=== PATIENT | male | born 1940 | race Caucasian/White ===

== ENCOUNTER 2020-07-03 10:05 | Emergency (ER) | payer OTHER, MEDICARE, SELFPAY ==
[2019-07-08 09:32] VITALS: BMI 32.5
[2020-07-03 10:07] VITALS: BP 122/62; PULSE 64; RESP 15; TEMP 36.2; O2SAT 99; BMI 34.0
--- NOTE | 2020-07-03 10:20 | ED.VIS.GEN ---
History of Present Illness Chief Complaint: Chest Pain Informant: Patient Narrative: 79-year-old male presenting with fatigue, mild pain with deep inspiration, loss of taste for 7 days. Patient states he was tested for Covid?19 on Friday of last week. Symptom onset was Friday of last week which would make it 8 days. Patient states he is already had his Covid?19 immunizations. Patient states he has had multiple stress tests in the past but it has not been since 2008 when he had his last one. Patient denies fever or cough. He does state that he sometimes lightheaded. This does not correlate with the chest discomfort on deep inspiration. Past Medical History - Allergies and Home Meds Allergies/Adverse Reactions: Allergies No Known Allergies Allergy (Unverified 07/03/20 10:14) Primary Care Physician: Cody Carrington MD [Primary Care Provider] - Past Medical History: - - Hypertension, hyperlipidemia Surgical History: noncontributory Lives: Alone Smoking Status: Never smoker Alcohol: None Drugs: None - Family History Maternal Family History: Reports: - - No VTE Review of Systems General: Reports: - - Fatigue. Denies: Chills, Fever Eyes: Denies: Visual changes - bilaterally, Diplopia ENT: Denies: Rhinorrhea, Sore throat Cardiovascular: Reports: Chest pain - Deep inspiration, - - Lightheadedness intermittently. Denies: Palpitations, Heart racing Respiratory: Denies: Dyspnea, Cough Gastrointestinal: Denies: Abdominal pain, Nausea, Vomiting, Diarrhea, Constipation Genitourinary: Denies: Dysuria, Hematuria Musculoskeletal: Denies: Myalgias, Arthralgias Skin: Denies: Rash, Abscess Neurological: Denies: Headache, Parasthesia, Numbness Psych: Denies: Depression, Anxiety Physical Exam Vital Signs/Narrative: Vital Signs Temp Pulse Resp BP Pulse Ox 07/03/20 10:07 97.2 F L 64 15 122/62 H 99 Inital Vital Signs reviewed: Yes General: Well nourished, No Acute Distress Head: Normocephalic, Atraumatic Eyes: Perrl, EOMI ENT: Moist mucous membranes, No rhinorrhea Cardiovascular: Regular rate, Regular rhythm Respiratory: No distress, CTA bilaterally, Chest nontender Extremities: Nontender, No edema Skin: Normal color, No rash. Negative for: Cyanosis, Diaphoresis Neurological: Alert, Oriented x3, Cranial nerves II-XII grossly intact Psychological: Normal affect, Normal Mood Diagnostic/Tx/Re-eval Clinical Impression(s) from Imaging Studies Chest X-Ray 07/03/20 10:40 IMPRESSION: No acute abnormality is seen. Electronically Signed: Norberto Peres MD at 11:06 EST , Service support , Lung Scan-VQ NM 07/03/20 13:54 IMPRESSION: 1. NORMAL 99m Tc DTPA aerosol ventilation/Tc 99m MAA pulmonary perfusion imaging examination, according to PIOPED II interpretive criteria. (Sotsman et al, Radiology 246: 941, 2008 Sohuber et al, J Nucl Med 49: 1741, 2008). Electronically Signed: Prashanth Westfall DO at 15:36 EST Tel , Service support , Laboratory Data 07/03/20 07/03/20 07/03/20 10:20 10:20 10:20 WBC 6.2 RBC 4.29 L Hgb 14.2 Hct 40.3 MCV 93.9 MCH 33.1 H MCHC 35.2 RDW Std Deviation 45.1 H RDW Coeff of Briana 13.3 Plt Count 164 MPV 9.2 Immature Gran % (Auto) 0.500 Neut % (Auto) 60.8 Lymph % (Auto) 27.1 [place] % (Auto) 11.1 H Eos % (Auto) 0.2 Baso % (Auto) 0.3 Absolute Neuts (auto) 3.8 Absolute Lymphs (auto) 1.69 Nucleated RBC % 0 D-Dimer Quant (PE/DVT) Cancelled Sodium 129 L Potassium 3.7 Chloride 96 L Carbon Dioxide 22.0 Anion Gap 11 BUN 29 H Creatinine 2.07 H Estim Creat Clear Calc 26.97 Est GFR (MDRD) Af Amer 40 L Est GFR (MDRD) Non-Af 33 L BUN/Creatinine Ratio 14.0 Glucose 117 H Calcium 10.1 Troponin I < 0.015 07/03/20 11:15 WBC RBC Hgb Hct MCV MCH MCHC RDW Std Deviation RDW Coeff of Briana Plt Count MPV Immature Gran % (Auto) Neut % (Auto) Lymph % (Auto) [place] % (Auto) Eos % (Auto) Baso % (Auto) Absolute Neuts (auto) Absolute Lymphs (auto) Nucleated RBC % D-Dimer Quant (PE/DVT) 0.79 H* Sodium Potassium Chloride Carbon Dioxide Anion Gap BUN Creatinine Estim Creat Clear Calc Est GFR (MDRD) Af Amer Est GFR (MDRD) Non-Af BUN/Creatinine Ratio Glucose Calcium Troponin I - Rhythm Strip Rhythm Strip: Sinus Rhythm Rate: 63 - Medical Decision Making Patient presenting with fatigue, mild lightheadedness, mild pain with deep inspiration across the center of his chest for 8 days. He was tested for Covid?19 on the third day and was negative. He is already had his immunizations for Covid?19. EKG performed on arrival and interpreted by myself shows a normal sinus rhythm at 63 bpm without signs of ischemic changes. One-view portable chest x-ray is interpreted by myself shows no acute cardiopulmonary process. She shows white count of 6.2, hemoglobin 14.2, platelets 164. Troponin is negative. Creatinine is 2.0 today and there is no previous creatinines in our system. His GFR is also 33. Patient also had elevated D-dimer at 0.79. Given his creatinine I did not want to CTA him. Patient had VQ scan low risk for PE. His chest pain does not sound like a cardiac related chest pain. Patient will be tested with outpatient Covid swab and will return to the 5 days. Patient will quarantine until then. Patient is also to call his PCP for follow-up given his renal function as I do not know what his previous renal function is. I am unable to look this up in [employer] because it is not functioning today. Patient given return precautions. Patient stable for discharge. Impression: 1. Abnormal creatinine 2. Viral syndrome 3. Inspiratory chest pain ED Disposition - Plan for ED Patient: Disposition: Home or Assisted Living Instructions: Coronavirus Disease 2019 (COVID-19): Caring for Yourself or Others, ED Viral Syndrome (Adult) Referrals: Cody Carrington MD [Primary Care Provider] -
--- NOTE | 2020-07-03 10:20 | NURSING ---
NO OLD EKGS
--- NOTE | 2020-07-03 10:21 | EKG12_ITS ---
Test Reason : CHEST TIGHTNESS Blood Pressure : / mmHG Vent. Rate : 063 BPM Atrial Rate : 063 BPM P-R Int : 160 ms QRS Dur : 104 ms QT Int : 428 ms P-R-T Axes : -08 033 012 degrees QTc Int : 437 ms Normal sinus rhythm Normal ECG Confirmed by DESIREE BENJAMIN, NEYMAR ([id number]), purchase request editor DMITRIY MCKINLEY ([id number]) on 07/04/2020 10:51:05 AM Referred By: ABNER Confirmed By:NEYMAR RAMÍREZ MD
[2020-07-03 10:36] LABS: Absolute Lymphocyte Count 1.69 X10^3/uL (0.83-4.51); Absolute Neutrophil Count 3.8 X10^3/uL (2.0-7.7); Basophil# 0.02 X10^3/uL; Basophil% 0.3 % (0-1); Eosinophil# 0.01 X10^3/uL; Eosinophils% 0.2 % (0-5); Hematocrit 40.3 % (40-54); Hemoglobin 14.2 g/dL (13.0-16.5); Lymphocyte # 1.69 X10^3/ul (4.0); Lymphocyte % 27.1 % (19-41); Mean Corp Hgb Conc 35.2 g/dL (32-36); Mean Corpuscular Hgb 33.1 pg (27.0-32.0); Mean Corpuscular Volume 93.9 fL (80-94); Mean Platelet Vol. 9.2 fl (6.2-12.0); Monocyte# 0.69 X10^3/uL; Monocyte% 11.1 % (0-10); NRBC Flagged by Analyzer 0 % (0-5); Neutrophil # 3.79 X10^3/uL (2.7-7.7); Neutrophil % 60.8 % (47-70); Platelet Count 164 K/mm3 (150-450); RBC Distribution Width CV 13.3 % (11.6-14.6); RBC Distribution Width SD 45.1 fl (35.1-43.9); Red Blood Count 4.29 M/mm3 (4.6-6.2); White Blood Count 6.2 K/mm3 (4.4-11.0)
--- NOTE | 2020-07-03 10:40 | RAD_ITS ---
STUDY: X-RAY CHEST REASON FOR EXAM: Male, 79 years old. Chest pain TECHNIQUE: Single AP portable view of the chest. COMPARISON: None. FINDINGS: EKG electrodes are seen. The lungs are clear and expanded. There is no demonstrated pleural abnormality. Normal size heart. Normal mediastinum and ojnn. Normal visualized pulmonary arteries. There is atherosclerotic calcification of the aortic arch with tortuosity. There are diffuse degenerative changes of the visualized thoracic spine. Normal visualized ribs, clavicles, and shoulders. There is no demonstrated abnormality of the visualized soft tissue structures of the upper abdomen. RAD/Chest 1 View (Portable) IMPRESSION: No acute abnormality is seen. Electronically Signed: Norberto Peres MD at 11:06 EST , Service support ,
[2020-07-03 10:50] LABS: Anion Gap 11 (5-15); BUN 29 mg/dL (7-18); Calcium,Total 10.1 mg/dL (8.5-10.1); Chloride 96 mmol/L (98-107); Creatinine, Serum 2.07 mg/dL (0.70-1.30); EST Glomerular Filtration Rate 33 mL/min (>60); Est Glom Filt Rate - Afr Amer 40 mL/min (>60); Estimated Creatinine Clearance 26.97 ml/min; Glucose 117 mg/dL (74-106); Potassium 3.7 mmol/L (3.5-5.1); Sodium Level 129 mmol/L (136-145)
[2020-07-03] MEDS: Aspirin 81 MG TAB.CHEW 324 MG PO (11:21)
[2020-07-03 11:42] LABS: D-Dimer Quantitative (DVT/PE) 0.79 FEU/ug/m (0.27-0.49)
--- NOTE | 2020-07-03 13:54 | NM_ITS ---
CLINICAL: 79-year-old male with reported history of chest discomfort, shortness of breath and elevation of the d-dimer. VENTILATION-PERFUSION LUNG SCINTIGRAPHY COMPARISON: Plain film chest radiograph report 07/03/2020 FINDINGS: The patient was administered 48.0 mCi 99m Tc DTPA aerosol. The aerosol ventilation study demonstrates normal ventilation defined in the bilateral lung winn. No segmental or subsegmental ventilatory defects are identified. There is no central clumping of the aerosol visualized. Following the intravenous administration of 5.0 mCi of 99m Tc MAA, the pulmonary perfusion study reveals uniform perfusion throughout both lung winn. There are no segmental or subsegmental perfusion defects consistently identified on review of sequential acquisitions-projections. NM/Lung Scan Vent/Perf IMPRESSION: 1. NORMAL 99m Tc DTPA aerosol ventilation/Tc 99m MAA pulmonary perfusion imaging examination, according to PIOPED II interpretive criteria. (Sotsman et al, Radiology 246: 941, 2008 Sohuber et al, J Nucl Med 49: 1741, 2008). Electronically Signed: Prashanth Westfall DO at 15:36 EST Tel , Service support ,
[2020-07-03 13:58] VITALS: BP 125/75; PULSE 67; RESP 20; O2SAT 94
[2020-07-03 14:00] VITALS: BP 125/75; PULSE 67; RESP 20; O2SAT 94
--- NOTE | 2020-07-03 14:47 | CON.PCM_ITS ---
Reason for Consult Date of Consultation: 07/03/20 Reason for Consultation: chest pain History of Present Illness: The patient is a 79 year old M presents with a several day history of upper chest pain. It is in his upper chest, does not radiate not associated other constitutional symptoms. Patient is never had chest pain like this before. Was concerned presented to the emergency room. Patient had D-dimer slightly elevated at 0.79. EKG showed normal sinus rhythm but with subtle S1Q3T3 changes. The hospital service was contacted for admission regards to this chest pain. A CTA could not be performed given the patient's chronic kidney disease. When discussed with the patient and he denies any history of VTE, denies any lower extremity injury or immobilization. [] Past Medical History Medical History: Medical History (Last Reviewed 07/03/20 @ 14:[address] Melvin Boo, DO) Hypertension I10 Allergies No Known Allergies Allergy (Unverified 07/03/20 10:14) Home Medications: Ambulatory Orders Medication Instructions Recorded atorvastatin 40 mg tablet 40 mg PO DAILY 07/08/19 levothyroxine 88 mcg tablet 88 mcg PO DAILY 07/08/19 losartan 100 mg tablet 100 mg PO QHS 07/08/19 metoprolol tartrate 25 mg tablet 25 mg PO BID 07/08/19 triamterene 37.5 1 tab PO DAILY 07/08/19 mg-hydrochlorothiazide 25 mg tablet Valacyclovir HCl [Valacyclovir] 500 mg PO DAILY 07/03/20 Surgical History: noncontributory Lives: Alone Smoking Status: Never smoker Alcohol: None Drugs: None - *Family History Maternal History Items: - - No VTE Review of Systems Constitutional: Denies: Chills, Fever, Weight Change HEENT: Denies: Head Aches, Sinus Congestion, Sinus Drainage Cardiovascular: Reports: Chest Pain. Denies: Edema Respiratory: Denies: Cough, Shortness of breath at rest, Sputum production Gastrointestinal: Denies: Abdominal Pain, Nausea, Vomiting Genitourinary: Denies: Dysuria Musculoskeletal: Denies: Joint Pain, Joint Tenderness Skin: Denies: Rash, Wounds Psychiatric: Denies: Anxiety, Depression Hematologic/ Lymphatic: Denies: Easy Bruising, Easy Bleeding, Hx of blood clot Comment: All review of systems were negative except as mentioned above in the history of present illness and the other review of systems. - Physical Exam Vitals/I&O's: Vital Signs Temp Pulse Resp BP Pulse Ox 36.2 C L 67 20 H 125/75 H 94 07/03/20 10:07 07/03/20 14:00 07/03/20 14:00 07/03/20 14:00 07/03/20 14:00 Oxygen Delivery Method Room Air Weight: 95.6 kg Body Mass Index (BMI) 34.0 General: Alert, Cooperative, No apparent distress HEENT: Atraumatic, Normocephalic Oral: Moist Mucosa, No Gingival or Mucosal Lesions/ Ulcerations Neck: No Nodes, Thyroid Normal Size and Texture Lungs: Clear to auscultation, Normal air movement, No rhonchi, No wheeze, No rales Cardiovascular: Regular rate, Regular Rhythm, Normal S1, Normal S2, No murmurs Abdomen: Bowel Sounds Present, Soft, Non Tender, Non-Distended, No Hepato- splenomegaly Extremities: No edema, No Calf Tenderness Psych/Mental Status: Normal Affect, Appropriate Laboratory Results 07/03/20 10:20: WBC 6.2, RBC 4.29 L, Hgb 14.2, Hct 40.3, MCV 93.9, MCH 33.1 H, MCHC 35.2, RDW Std Deviation 45.1 H, RDW Coeff of Briana 13.3, Plt Count 164, MPV 9.2, Immature Gran % (Auto) 0.500, Neut % (Auto) 60.8, Lymph % (Auto) 27.1, [place] % (Auto) 11.1 H, Eos % (Auto) 0.2, Baso % (Auto) 0.3, Absolute Neuts (auto) 3.8, Absolute Lymphs (auto) 1.69, Nucleated RBC % 0 07/03/20 10:20: D-Dimer Quant (PE/DVT) Cancelled 07/03/20 10:20: Sodium 129 L, Potassium 3.7, Chloride 96 L, Carbon Dioxide 22.0, Anion Gap 11, BUN 29 H, Creatinine 2.07 H, Estim Creat Clear Calc 26.97, Est GFR (MDRD) Af Amer 40 L, Est GFR (MDRD) Non-Af 33 L, BUN/Creatinine Ratio 14.0, Glucose 117 H, Calcium 10.1, Troponin I < 0.015 07/03/20 11:15: D-Dimer Quant (PE/DVT) 0.79 H* Chest x-ray personally reviewed and showed no infiltrate nor pulmonary vascular congestion. EKG reviewed and showed normal sinus rhythm with S1Q3T3 changes. No prior EKG available to compare to. Assessment/Plan All Active Problems (Last Reviewed 07/03/20 @ 14:[address] Melvin Boo, DO) Bronchitis (Acute) 1. Chest pain: Pretest probability for PE is low, however, patient did have a slightly elevated D-dimer and did have some subtle EKG changes. I called down to nuclear medicine and they said they would be able to do a VQ scan on him and patient was sent down. Results are currently pending. If results are negative, I feel the patient can be discharged home with no anticoagulation however if they are positive then I would recommend 10 a inhibitor with apixaban 10 mg twice daily for 7 days and then 5 mg twice daily thereafter. The treatment would be for 6 months. Irregardless, patient does not need to be admitted. 2. Chronic kidney disease: Recommend nephrology follow-up. Office Visits / Consults: [id number] OP Consult L4
[2020-07-03 15:00] VITALS: PULSE 62; RESP 18; O2SAT 98
[2020-07-03 16:00] VITALS: BP 143/77; PULSE 62; RESP 18; O2SAT 98
== END 2020-07-03 16:19 | disposition home or self-care (01) ==
PROVIDERS: Emergency Provider Student in an Organized Health Care Education/Training Program; PCP Internal Medicine
DX: U07.1 COVID-19 (principal); B34.9 Viral infection, unspecified; R07.1 Chest pain on breathing; R79.89 Other specified abnormal findings of blood chemistry; I10 Essential (primary) hypertension; E78.5 Hyperlipidemia, unspecified; Z79.899 Other long term (current) drug therapy
CPT/HCPCS: 36415; 71045; 78582; 80048; 84484; 85025; 85379; 87635; 93005; 99285; A9540; A9567; U0005; A4216; U0003

== ENCOUNTER 2023-06-16 15:38 | Observation (INO) | payer OTHER, MEDICARE, SELFPAY ==
[2023-06-16] VITALS (9 sets, daily range): BP systolic 94–142; BP diastolic 61–89; PULSE 82–109; RESP 14–17; TEMP 35.8–36.7; O2SAT 94–98; BMI 33.0; BMI 32.4
--- NOTE | 2023-06-16 15:53 | EKG12_ITS ---
Test Reason : PALP Blood Pressure : / mmHG Vent. Rate : 096 BPM Atrial Rate : 000 BPM P-R Int : 000 ms QRS Dur : 094 ms QT Int : 354 ms P-R-T Axes : 000 031 -35 degrees QTc Int : 447 ms Atrial fibrillation Nonspecific ST abnormality Abnormal ECG Confirmed by Nick Larkin ([id number]), order editor DMITRIY MCKINLEY ([id number]) on 06/17/2023 9:27:04 AM Referred By: Confirmed By:Nick Larkin
--- NOTE | 2023-06-16 15:54 | EDS_ITS ---
HPI History of Present Illness Chief Complaint: Palpitations Detail of Chief Complaint: Lightheadedness and new onset A-fib Informant: patient Narrative Narrative: Patient presents to the emergency department with complaint of feeling light headed x 4 days. Patient was seen by his primary care physician today in the office and had an EKG that showed new onset atrial fibrillation. Patient was referred to the emergency department by his primary care physician. Patient denies chest pain or shortness of breath. He denies recent illness. Denies recent travel or surgery. No prior history of A-fib. No other cardiac history. He does have history of hypertension as well as high cholesterol and history of hypothyroidism. [facility] Medical History (Updated 06/16/23 @ 17:[address] Lor Aguilar DO) Anxiety BPH (benign prostatic hyperplasia) CKD (chronic kidney disease) Hyperlipidemia Hypertension Hypothyroidism Obesity (BMI 30.0-34.9) Home Medications atorvastatin 40 mg tablet 40 mg PO QHS cholesterol 07/08/19 [History Last Taken 06/14/23] levothyroxine 88 mcg tablet 88 mcg PO DAILY thyroid 07/08/19 [History Last Taken 06/15/23] losartan 100 mg tablet 100 mg PO QHS bp 07/08/19 [History Last Taken 06/15/23] metoprolol tartrate 25 mg tablet 25 mg PO BID heart 07/08/19 [History Last Taken 06/15/23] valacyclovir 500 mg tablet 500 mg PO DAILY herpes 07/03/20 [History Last Taken 06/15/23] amlodipine 10 mg tablet 10 mg PO DAILY blood pressure 06/16/23 [History Last Taken 06/15/23] hydroxyzine HCl 25 mg tablet 25 mg PO QHS anxiety 06/16/23 [History Last Taken 06/15/23] tamsulosin 0.4 mg capsule 0.4 mg PO BID 06/16/23 [History Last Taken 06/14/23] Allergy/AdvReac Type Severity Reaction Status Date / Time No Known Allergies Allergy Unverified 07/03/20 10:14 Family History (Updated 06/16/23 @ 17:[address] Lor Aguilar DO) Other Hyperlipidemia Hypertension Thyroid disorder Social History (Updated 06/16/23 @ 17:[address] Lor Aguilar DO) household members: spouse housing: house Smoking Status: Never smoker alcohol intake: never substance use type: does not use ROS ROS ED Review of Systems ROS Unobtainable: other Constitutional Constitutional ED: Reports lethargy; Denies chills, fever(s), sweats or weight loss Eyes Eyes: Denies blurry vision, change in vision or diplopia ENT ENT ED: Denies rhinorrhea or sore throat Cardiovascular Cardiovascular: Reports palpitations; Denies chest pain, orthopnea or racing heartbeat Respiratory/Chest Respiratory/Chest: Denies cough, dyspnea, dyspnea on exertion, orthopnea or sputum Gastrointestinal Gastrointestinal: Denies abdominal pain, diarrhea, nausea or vomiting Genitourinary Genitourinary ED: Denies dysuria, hematuria or urinary frequency Musculoskeletal Musculoskeletal: Denies arthralgias, back pain, myalgias or neck pain Integumentary Denies abscess, Abrasions or rash Neurologic Neurologic: Denies headache(s) or weakness Psychiatric Psychiatric: Denies anxiety, depression or suicidal thoughts Endocrine Endocrinology: Denies polydipsia, polyphagia or polyuria Hematologic/Lymphatic Hematologic/Lymphatic: Denies easy bleeding, easy bruising or lymphadenopathy Allergic/Immunologic Allergic/Immunologic ED: Denies mouth swelling, tongue swelling or urticaria EXAM Physical Exam Const Vital Signs: 06/16/23 15:39 06/16/23 15:45 06/16/23 16:15 Temperature 96.5 F L Temperature Source Temporal Pulse Rate 87 105 H 101 H Respiratory Rate 16 17 Blood Pressure 134/86 H 121/80 H Blood Pressure Mean 102 93 Pulse Ox 98 94 Oxygen Delivery Method Room Air Room Air Positive well nourished and well developed General Appearance ED: well developed and NAD HEENT Reports TM's clear and moist mucous membranes normocephalic and atraumatic; Negative for trauma or tenderness Tympanic Membrane ED: Yes TM's clear Eyes PERRL and EOMs intact bilaterally General Eye ED: Negative for pale conjunctiva or scleral icterus Neck no lymphadenopathy, supple and no JVD General: Negative for tenderness Chest Wall inspection of chest normal and palpation of chest normal Chest: Negative for tenderness Resp normal respiratory effort and clear to auscultation bilaterally Effort and Inspection: Negative for respiratory distress or pain with movement Auscultation: Negative for rhonchi, wheezes or diminished lung sounds Cardio S1 normal heart sound, S2 normal heart sound and no murmurs; Negative for regular rate or regular rhythm Rate: tachycardic Peripheral Pulses: pulses 2+ throughout GI normal to inspection, nondistended, normoactive bowel sounds, soft to palpation, non-tender, non-distended and no masses Back/Spine no CVA tenderness and no thoracic nor lumbar tenderness Extremity normal to inspection General Extremety ED: Negative for edema General Extremity: Negative for edema Neuro oriented x3, CN's II-XII intact bilaterally, no sensory deficits noted and gait normal Sensorium / Orientation: awake, alert, oriented to person, oriented to place and oriented to time Motor Exam: strength 5/5 throughout and strength abnormal Psych mental status grossly normal Skin no rashes or lesions noted and no wounds MDM MDM MDM Narrative Medical decision making narrative: Patient presents with symptoms of lightheadedness and new onset A-fib. EKG obtained on arrival did show atrial fibrillation with ventricular rate of [address] changes. While evaluating patient on monitor heart rate up to the low 100s. I will order Cardizem 10 mg IV bolus and obtain basic labs. CBC with differential white count 12.5 with hemoglobin 14 and platelet count of 191. Troponin normal at 28. Chemistries unremarkable. BUN was 20 and creatinine 1.42. Patient did receive Cardizem 10 mg IV bolus and heart rate now in the 70s and 80s. Will discuss case with hospitalist to evaluate patient for admission. Patient apparently had systolic blood pressures in the 90s at home today and also was orthostatic positive in his primary care physician's office. Lab Data Attestation: I reviewed the patient's lab results. Labs: Laboratory Results - last 24 hr 06/16/23 15:45 WBC 12.5 H RBC 4.45 L Hgb 14.0 Hct 42.6 MCV 95.7 H MCH 31.5 MCHC 32.9 RDW Std Deviation 49.2 H RDW Coeff of Briana 14.0 Plt Count 191 MPV 9.3 Immature Gran % (Auto) 0.500 Neut % (Auto) 69.4 Lymph % (Auto) 16.6 L [place] % (Auto) 13.0 H Eos % (Auto) 0.2 Baso % (Auto) 0.3 Absolute Neuts (auto) 8.7 H Absolute Lymphs (auto) 2.08 Nucleated RBC % 0 Differential Comment SCANNED Diff Path Review May foll Sodium 135 L Potassium 4.0 Chloride 100 Carbon Dioxide 25.0 Anion Gap 10 BUN 20 H Creatinine 1.42 H Estim Creat Clear Calc 45.74 Est GFR (MDRD) Af Amer 62 Est GFR (MDRD) Non-Af 51 L BUN/Creatinine Ratio 14.1 Glucose 125 H Calcium 9.7 Troponin I High Sens 28 Radiography Diagnostic Testing: Clinical Impression(s) from Imaging Studies Chest X-Ray 06/16/23 16:10 IMPRESSION: Left basilar pulmonary opacity may be atelectasis or pneumonia. Electronically Signed: Con Carvajal DO at 16:38 EST , 1 view chest x-ray obtained interpreted by myself as no evidence of infiltrate or pneumothorax or acute disease process. Radiology felt there was left basilar opacity which could be atelectasis or pneumonia. Clinically I do not feel he has pneumonia. EKG Initial EKG: Attestation: I personally reviewed and interpreted this EKG as follows: Comments: Atrial fibrillation with ventricular rate of [address] changes Discharge Plan Dx/Rx/DC Orders Clinical Impression: Transient hypotension, Dizziness, Atrial fibrillation with RVR Disposition Disposition: Acute Care Hospital [facility]
--- NOTE | 2023-06-16 16:10 | RAD_ITS ---
EXAM: XR CHEST, 1 VIEW CLINICAL INDICATION: tachycardia TECHNIQUE: Frontal view of the chest. COMPARISON: 07/03/2020 FINDINGS: LUNGS AND PLEURAL SPACES: Left basilar pulmonary opacity may be atelectasis or pneumonia. No pneumothorax. No effusion. HEART: No significant abnormality. Cardiac silhouette not enlarged. MEDIASTINUM: Central airways and mediastinal contour are unremarkable. BONES/JOINTS: No significant abnormality. No acute fracture. SOFT TISSUES: No significant abnormality. RAD/Chest 1 View (Portable) IMPRESSION: Left basilar pulmonary opacity may be atelectasis or pneumonia. Electronically Signed: Con Carvajal DO at 16:38 EST ,
[2023-06-16 16:11] LABS: Absolute Lymphocyte Count 2.08 X10^3/uL (0.83-4.51); Absolute Neutrophil Count 8.7 X10^3/uL (2.0-7.7); Basophil# 0.04 X10^3/uL; Basophil% 0.3 % (0-1); Eosinophil# 0.03 X10^3/uL; Eosinophils% 0.2 % (0-5); Hematocrit 42.6 % (40-54); Lymphocyte # 2.08 X10^3/ul (0.83-4.51); Lymphocyte % 16.6 % (19-41); Mean Corp Hgb Conc 32.9 g/dL (32-36); Mean Corpuscular Hgb 31.5 pg (27.0-32.0); Mean Corpuscular Volume 95.7 fL (80-94); Mean Platelet Vol. 9.3 fl (6.2-12.0); Monocyte# 1.62 X10^3/uL; NRBC Flagged by Analyzer 0 % (0-5); Neutrophil # 8.67 X10^3/uL (2.7-7.7); Neutrophil % 69.4 % (47-70); POSITIVE DIFFERENTIAL YES; Platelet Count 191 K/mm3 (150-450); RBC Distribution Width SD 49.2 fl (35.1-43.9); Red Blood Count 4.45 M/mm3 (4.6-6.2); White Blood Count 12.5 K/mm3 (4.4-11.0)
[2023-06-16 16:13] LABS: Differential Indicated SCAN CRITERIA MET
[2023-06-16] MEDS: dilTIAZem 25 MG/5 ML Vial 10 MG IV BOLUS (16:19)
[2023-06-16] MEDS: 0.9% Normal Saline (1000mL) 1,000 ML 150 ML IV (16:19)
[2023-06-16 16:33] LABS: Differential Comment SCANNED
[2023-06-16 16:39] LABS: Anion Gap 10 (5-15); BUN 20 mg/dL (7-18); BUN/Creat Ratio 14.1 RATIO (10-20); Calcium,Total 9.7 mg/dL (8.5-10.1); Chloride 100 mmol/L (98-107); Creatinine, Serum 1.42 mg/dL (0.70-1.30); EST Glomerular Filtration Rate 51 mL/min (>60); Est Glom Filt Rate - Afr Amer 62 mL/min (>60); Estimated Creatinine Clearance 45.74 ml/min; Glucose 125 mg/dL (74-106); Sodium Level 135 mmol/L (136-145); Troponin-I HS 28 pg/mL (3.0-78.0)
--- NOTE | 2023-06-16 16:52 | PCM.HP.STD ---
HPI - General General Date of Admission: 06/16/23 Date of Service: 06/16/23 Chief Complaint: New onset Afib with RVR HPI Narrative CLINT MONIQUE, is a 82 M who presented to the emergency department [facility] on 06/16/2023 complaining of lightheadedness. The patient states he has had some intermittent lightheadedness that has been becoming more persistent since Friday. He stated he woke up this morning and was markedly lightheaded so he took his blood pressure and he noted it to be low. He did not take his home blood pressure medication this morning due to his blood pressure being low. He went to his primary care physician's office (Dr. Carrington). EKG was done as well as orthostatic vitals. Orthostatic vitals were positive and his EKG showed him to be in A-fib with RVR which is a new diagnosis for him. Patient states he is familiar with A-fib as his has A-fib and has a pacemaker. Upon arrival here he was found to be in A-fib with RVR and given 10 mg of Cardizem which has slowed his heart rate down into the 90s. The patient was able to get up and use the bathroom and felt that his lightheadedness was some improved. He denied any chest pain, shortness of breath or lower extremity edema. To his knowledge he has never had A-fib previously. He states he snores but does not think he has any sleep apnea and has never been diagnosed as such. Vital signs on presentation showed temperature of 96.5, current heart rate was 96, blood pressure was 129/76, respiratory rate 16 oxygen saturations are 97% room air. CBC demonstrates a mild leukocytosis with a white count of 12.5. He has a mild monocytosis at 13%. Chemistry panel shows mild hyponatremia with a sodium of 135 and a BUN of 20 with a serum creatinine of 1.42. Baseline creatinine is unknown, however, reviewing previous records it does appear he has some baseline creatinine dysfunction. Initial troponin was 28. EKG is A-fib with a heart rate of 96, normal intervals and no ST-T wave changes consistent with acute ischemia. Chest x-ray was performed is unremarkable for any acute findings upon my review. [facility] Medical History (Updated 06/16/23 @ 17:[address] Lor Aguilar DO) Anxiety BPH (benign prostatic hyperplasia) CKD (chronic kidney disease) Hyperlipidemia Hypertension Hypothyroidism Obesity (BMI 30.0-34.9) Home Medications atorvastatin 40 mg tablet 40 mg PO QHS cholesterol 07/08/19 [History Last Taken 06/14/23] levothyroxine 88 mcg tablet 88 mcg PO DAILY thyroid 07/08/19 [History Last Taken 06/15/23] losartan 100 mg tablet 100 mg PO QHS bp 07/08/19 [History Last Taken 06/15/23] metoprolol tartrate 25 mg tablet 25 mg PO BID heart 07/08/19 [History Last Taken 06/15/23] valacyclovir 500 mg tablet 500 mg PO DAILY herpes 07/03/20 [History Last Taken 06/15/23] amlodipine 10 mg tablet 10 mg PO DAILY blood pressure 06/16/23 [History Last Taken 06/15/23] hydroxyzine HCl 25 mg tablet 25 mg PO QHS anxiety 06/16/23 [History Last Taken 06/15/23] tamsulosin 0.4 mg capsule 0.4 mg PO BID 06/16/23 [History Last Taken 06/14/23] Allergy/AdvReac Type Severity Reaction Status Date / Time No Known Allergies Allergy Unverified 07/03/20 10:14 Family History (Updated 06/16/23 @ 17:[address] Lor Aguilar DO) Other Hyperlipidemia Hypertension Thyroid disorder no surgical history Social History (Updated 06/16/23 @ 17:[address] Lor Aguilar DO) household members: spouse housing: house Smoking Status: Never smoker alcohol intake: never substance use type: does not use ROS Constitutional Constitutional: Denies anorexia, change in weight, chills, fatigue, fever(s), malaise, night sweats, weakness or other Eyes Eyes: Denies blurry vision, change in eye color, change in vision, discharge from eye(s), double vision, erythema, eye pain, loss of vision or other ENT HEENT: Denies abnormal hearing, dysphagia, ear pain, epistaxis, headache(s), hearing loss, nasal congestion, nasal discharge, post nasal drip, sinus pressure, sore throat or other Cardiovascular Cardiovascular: Reports lightheadedness and rapid heart rate; Denies chest pain, claudication, dyspnea on exertion, edema, orthopnea, palpitations, paroxysmal nocturnal dyspnea, syncope or other Respiratory/Chest Respiratory/Chest: Denies cough, dyspnea, excessive phlegm production, hemoptysis, productive cough, shortness of breath at rest, shortness of breath with exertion, wheezing or other Gastrointestinal Gastrointestinal: Denies abdominal pain, coffee ground emesis, constipation, diarrhea, dyspepsia, hematemesis, hematochezia, loose stools, melena, nausea, vomiting or other Genitourinary Genitourinary: Reports difficulty urinating, nocturia and urinary hesitancy; Denies burning urination, dysuria, hematuria, urinary frequency, urinary incontinence, urinary urgency or other Musculoskeletal Musculoskeletal: Denies arthralgias, back pain, joint pain, joint stiffness, joint swelling, myalgias, neck pain or other Neurologic Neurologic: Denies abnormal gait, abnormal speech, confusion, disequilibrium, dizziness, focal weakness, headache(s), numbness, paresthesias, seizure-like activity, seizures, syncope, tingling, tremor(s) or other Psychiatric Psychiatric: Reports anxiety; Denies depression, homicidal ideation, suicidal ideation or other Endocrine Endocrinology: Denies change in body appearance, cold intolerance, excessive sweating, heat intolerance, polydipsia, polyuria or other Hematologic/Lymphatic Hematologic/Lymphatic: Denies anemia, easy bleeding, easy bruising, lymphadenopathy or other Allergic/Immunologic Allergic/Immunologic: Denies rhinitis, hives, eczemia, asthma or other Vital Signs Vital Signs Vital Signs: 06/16/23 15:39 06/16/23 15:45 06/16/23 16:15 Temperature 96.5 F L Temperature Source Temporal Pulse Rate 87 105 H 101 H Respiratory Rate 16 17 Blood Pressure 134/86 H 121/80 H Blood Pressure Mean 102 93 Pulse Ox 98 94 Oxygen Delivery Method Room Air Room Air Weight Weight: 95.708 kg Body Mass Index (BMI) 33.0 Physical Exam Const alert, oriented x3, no apparent distress, healthy appearing and well nourished; Negative for average body habitus Constitutional Narrative: Obese, elderly, white male, sitting up in bed, appears comfortable, nontoxic appearing General Appearance: cooperative HEENT normocephalic, head/scalp atraumatic and moist oral mucous membranes HEENT Narrative: Mild hearing loss, dentition is fair for age, Mallampati is 2, no thrush Eyes PERRL, EOMs intact bilaterally and conjunctivae normal Eyes Narrative: No scleral icterus Neck no lymphadenopathy, supple, no JVD and no carotid bruits Neck Narrative: Trachea midline, no thyroid enlargement or nodules noted on exam Resp normal respiratory effort, no retractions, no use of accessory muscles and clear to auscultation bilaterally Auscultation: Negative for rales, rhonchi or wheezes Cardio regular rate, S1 normal heart sound, S2 normal heart sound, no murmurs, no rub, no gallops and no clicks Cardio Narrative: Irregularly irregular rhythm with current rate at 96 GI normal to inspection, nondistended, normoactive bowel sounds, soft to palpation and non-tender Extremity no clubbing, cyanosis or edema Extremity Narrative: Pedal pulses are 2+, radial pulses are 2+ Skin no rashes or lesions noted, no wounds, skin turgor normal, no jaundice, no petechiae and no mottling Neuro oriented x3, CN's II-XII intact bilaterally, moves all extremities and no focal motor deficits Neuro Narrative: Normal gait Speech: speech normal Psych affect normal Psych Narrative: Very pleasant, interacts appropriately Results Lab / Micro Data 06/16/23 15:45 06/16/23 15:45 Labs: Laboratory Results - last 24 hr 06/16/23 15:45: WBC 12.5 H, RBC 4.45 L, Hgb 14.0, Hct 42.6, MCV 95.7 H, MCH 31.5, MCHC 32.9, RDW Std Deviation 49.2 H, RDW Coeff of Briana 14.0, Plt Count 191, MPV 9.3, Immature Gran % (Auto) 0.500, Neut % (Auto) 69.4, Lymph % (Auto) 16.6 L, Wood % (Auto) 13.0 H, Eos % (Auto) 0.2, Baso % (Auto) 0.3, Absolute Neuts (auto) 8.7 H, Absolute Lymphs (auto) 2.08, Nucleated RBC % 0, Differential Comment SCANNED, Diff Path Review September, Sodium 135 L, Potassium 4.0, Chloride 100, Carbon Dioxide 25.0, Anion Gap 10, BUN 20 H, Creatinine 1.42 H, Estim Creat Clear Calc 45.74, Est GFR (MDRD) Af Amer 62, Est GFR (MDRD) Non-Af 51 L, BUN/Creatinine Ratio 14.1, Glucose 125 H, Calcium 9.7, Troponin I High Sens 28 Assessment & Plan Assessment/Plan (1) Atrial fibrillation with RVR: (2) Transient hypotension: (3) Lightheadedness: (4) Elevated serum creatinine: (5) Hyperglycemia: (6) Leukocytosis: PLAN: Plan A-fib with RVR -New onset -Start Eliquis 5 mg p.o. twice daily -Hold home antihypertensives as we will increase his home Metoprolol from 25 mg p.o. twice daily to 50 mg p.o. twice daily -Check TSH -Check echocardiogram -Monitor on telemetry -Highly suspect the patient has been in A-fib since Friday at the very least Lightheadedness with transient hypotension -Likely related to the above -Hold home amlodipine, losartan -Patient did have orthostatic vital signs that were positive at his primary care physician's office -Patient was given IV fluids in the emergency department we will hold off on any further fluids at this time -Monitor on telemetry Elevated serum creatinine -Baseline is unknown but suspect CKD -Patient did receive IV fluids in the emergency department -Repeat BMP in a.m. -Avoid nephrotoxins as able -No further workup needed at this time Hyperglycemia -No official diagnosis of diabetes--> mild elevation on admission labs and nonfasting -Will follow with BMP in a.m. -If hyperglycemia persists could assess with hemoglobin A1c or refer to outpatient provider for follow-up Leukocytosis -Mild at 12.5 -Patient does not have left shift but does have a monocytosis -Repeat CBC in a.m. -Quite possibly could be reactive with the above Hypertension -Patient was orthostatic positive in his primary care physician's office -Hold home amlodipine 10 mg daily -Hold home losartan 10 mg daily -Continue metoprolol and increase from 25 to 50 mg p.o. twice daily -Will go ahead and continue Flomax twice daily for now -As needed hydralazine available for systolic pressure greater than 160 Hypothyroidism -Check TSH with new onset A-fib -Continue home levothyroxine Hyperlipidemia -Continue home statin BPH with obstruction -Continue home Flomax Anxiety -Patient is on hydroxyzine nightly -Will continue for now but recommend possibly discontinuing as it could cause increased risk of fall with his age being greater than 72 DVT prophylaxis -Patient on full anticoagulation with Eliquis CODE STATUS -Full code is verified on admission Charges/Coding Visit Charges Inpatient E&M: 90782 Init Hosp L2
--- NOTE | 2023-06-16 19:31 | ECHOD_ITS ---
Reason For Study: ATRIAL FIBRILLATION/ATRIAL FLUTTER Procedure This was a 2D Doppler, Color Flow transthoracic echocardiogram. Exam performed portable in patient room. Left Ventricle Normal LV size. The estimated ejection fraction is 60 %. No evidence for diastolic dysfunction. No regional wall motion abnormalities noted. Right Ventricle Normal RV size. Normal systolic function. Atria The left atrium is moderately enlarged. Normal right atrium. No doppler evidence for ASD. Mitral Valve There is no mitral valve stenosis. No mitral valve insufficiency. Tricuspid Valve There is no tricuspid stenosis. Unable to estimate RV systolic pressure due to inadequate jet, pulmonary artery pressure probably normal. Aortic Valve Trisinus/trileaflet aortic valve. There is no aortic stenosis. Trivial aortic valve insufficiency. Pulmonic Valve There is no pulmonic valvular stenosis. No pulmonic valve insufficiency. Great Vessels Normal aortic root. Pericardium/Pleural No pericardial effusion. MMode/2D Measurements & Calculations LVIDd: 5.3 cm IVSd: 1.0 cm Ao root diam: 3.4 cm LVIDs: 3.8 cm LVPWd: 1.4 cm RVDd: 3.4 cm FS: 27.3 % LAV(MOD-bp): 86.5 ml LVAd ap4: 26.5 cm2 LVAd ap2: 21.9 cm2 LAV(MOD-bp) Indexed: 42.1 ml/m2 LVLd ap4: 7.6 cm LVLd ap2: 7.3 cm LAV(MOD-sp2): 85.4 ml EDV(MOD-sp4): 77.5 ml EDV(MOD-sp2): 56.6 ml LAV(MOD-sp4): 85.7 ml EDV(sp4-el): 78.8 ml EDV(sp2-el): 55.8 ml LVAs ap4: 15.5 cm2 LVAs ap2: 11.8 cm2 LVLs ap4: 6.2 cm LVLs ap2: 5.8 cm ESV(MOD-sp4): 34.1 ml ESV(MOD-sp2): 21.0 ml ESV(sp4-el): 32.6 ml ESV(sp2-el): 20.4 ml EF(MOD-sp4): 56.0 % EF(MOD-sp2): 63.0 % EF(sp4-el): 58.6 % SV(MOD-sp4): 43.4 ml SV(MOD-sp2): 35.6 ml SV(sp4-el): 46.2 ml LA dimension(2D): 4.2 cm LA A4 area: 27.4 cm2 RA A4 area: 22.9 cm2 TAPSE: 2.5 cm Time Measurements MV dec time: 0.21 sec Doppler Measurements & Calculations MV E max chai: 68.4 cm/sec Lat Peak E' Chai: 10.4 cm/sec Med Peak E' Chai: 7.3 cm/sec MV A max chai: 57.9 cm/sec E/E' lat: 6.6 E/E' med: 9.3 MV E/A: 1.2 MV dec slope: 329.3 cm/sec2 Ao V2 max: 136.2 cm/sec LV V1 max: 107.7 cm/sec Ao max P.4 mmHg LV V1 max P.7 mmHg Ao V2 mean: 85.6 cm/sec LV V1 mean P.4 mmHg Ao mean P.4 mmHg LV V1 mean: 72.6 cm/sec Ao V2 VTI: 29.0 cm LV V1 VTI: 25.4 cm AV (velocity ratio): 0.88 PA V2 max: 87.8 cm/sec PA V2 mean: 64.9 cm/sec ECHO/Echo Complete Interpretation Summary The estimated ejection fraction is 60 %. No evidence for diastolic dysfunction. The left atrium is moderately enlarged. Trivial aortic valve insufficiency. Ordering Physician: Lor Aguilar Referring Physician: Cody Carrington Performed By: Saskia Bazan RDCS, RVT
[2023-06-16 20:54] LABS: Thyroid Stim Hormone (TSH) 3.42 uIU/mL (0.358-3.74)
[2023-06-16 20:57] LABS: Troponin-I HS 32 pg/mL (3.0-78.0)
[2023-06-16] MEDS: APIXABAN 5 MG TABLET PO (21:41)
[2023-06-16] MEDS: Acyclovir 200 MG Capsule 400 MG PO (21:42)
[2023-06-16] MEDS: hydrOXYzine PAM 25 MG Capsule PO (21:43)
[2023-06-16] MEDS: Metoprolol Tartrate 50 MG Tablet PO (21:43)
[2023-06-16] MEDS: Atorvastatin Calcium 40 MG Tablet PO (21:44)
[2023-06-16 23:01] LABS: Troponin-I HS 33 pg/mL (3.0-78.0)
[2023-06-17 02:53] LABS: Absolute Lymphocyte Count 1.77 X10^3/uL (0.83-4.51); Absolute Neutrophil Count 5.6 X10^3/uL (2.0-7.7); Basophil# 0.03 X10^3/uL; Basophil% 0.3 % (0-1); Eosinophil# 0.02 X10^3/uL; Eosinophils% 0.2 % (0-5); Hematocrit 36.3 % (40-54); Hemoglobin 12.2 g/dL (13.0-16.5); Lymphocyte # 1.77 X10^3/ul (0.83-4.51); Lymphocyte % 20.2 % (19-41); Mean Corp Hgb Conc 33.6 g/dL (32-36); Mean Corpuscular Hgb 31.7 pg (27.0-32.0); Mean Corpuscular Volume 94.3 fL (80-94); Mean Platelet Vol. 8.9 fl (6.2-12.0); Monocyte# 1.39 X10^3/uL; Monocyte% 15.8 % (0-10); NRBC Flagged by Analyzer 0 % (0-5); Neutrophil # 5.55 X10^3/uL (2.7-7.7); Neutrophil % 63.3 % (47-70); Platelet Count 177 K/mm3 (150-450); RBC Distribution Width SD 47.5 fl (35.1-43.9); Red Blood Count 3.85 M/mm3 (4.6-6.2); White Blood Count 8.8 K/mm3 (4.4-11.0)
[2023-06-17 03:16] LABS: AST(SGOT) 22 U/L (15-37); Alanine Aminotransfer ALT/SGPT 15 U/L (16-61); Albumin, Serum 3.1 g/dL (3.2-5.0); Alkaline Phosphatase 52 U/L (45-117); Anion Gap 7 (5-15); BUN 16 mg/dL (7-18); Calcium,Total 8.7 mg/dL (8.5-10.1); Chloride 103 mmol/L (98-107); EST Glomerular Filtration Rate 76 mL/min (>60); Est Glom Filt Rate - Afr Amer 92 mL/min (>60); Estimated Creatinine Clearance 64.35 ml/min; Globulin 3.2 g/dL (2.2-4.2); Glucose 116 mg/dL (74-106); Magnesium 2.1 mg/dL (1.6-2.6); Phosphorus 3.1 mg/dL (2.5-4.9); Potassium 4.5 mmol/L (3.5-5.1); Protein, Total 6.3 g/dL (6.4-8.2); Sodium Level 139 mmol/L (136-145)
[2023-06-17 03:19] LABS: Troponin-I HS 32 pg/mL (3.0-78.0)
[2023-06-17] MEDS: Levothyroxine 88 MCG Tablet PO (05:59)
[2023-06-17] MEDS: Senna/Docusate Sodium 1 Tablet 2 TABLET PO (05:59)
[2023-06-17 06:01] VITALS: BP 116/58; PULSE 66; RESP 18; TEMP 36.7; O2SAT 92
[2023-06-17 09:39] VITALS: BP 104/59; BP 125/63; BP 143/58; PULSE 62; PULSE 66; PULSE 71
[2023-06-17 09:50] VITALS: BP 122/72; PULSE 65; RESP 16; TEMP 36.8; O2SAT 97
[2023-06-17 09:56] VITALS: BP 122/72; PULSE 65
[2023-06-17] MEDS: APIXABAN 5 MG TABLET PO (09:56)
[2023-06-17] MEDS: Metoprolol Tartrate 50 MG Tablet PO (09:56)
[2023-06-17] MEDS: Tamsulosin HCl 0.4 MG Capsule 0.400000000000000022 MG PO (09:56)
[2023-06-17] MEDS: Acyclovir 200 MG Capsule 400 MG PO (09:57)
--- NOTE | 2023-06-17 14:20 | DCINST_ITS ---
Discharge Instructions Diet Discharge Diet: No restrictions Activity Discharge Activity: Return to Normal Activity Weight Bearing Status: Full weight bearing Follow Up Care Test Results: Test results from this visit will be discussed in further detail at your follow- up appointment, if applicable. Discharge Plan Admission Admit Date/Time: 06/16/23 16:46 Primary Reason for Your Visit: Atrial fibrillation Attending Provider: John Raza Primary Care Provider: Cody Carrington Consulting Providers: Lor Aguilar Instructions Additional Instructions / Restrictions: Do not take any ibuprofen or Aleve while taking Eliquis, do not take any aspirin while on Eliquis Reduce your amlodipine to one half of a 10 mg pill daily Discharge Orders/Prescriptions Prescriptions: New metoprolol tartrate 50 mg Tablet 50 mg PO BID Qty: 60 0RF Eliquis 5 mg Tablet 5 mg PO BID Qty: 60 0RF Continued losartan 100 mg tablet 100 mg PO QHS atorvastatin 40 mg tablet 40 mg PO QHS levothyroxine 88 mcg tablet 88 mcg PO DAILY Patient Comments: TAKE 1 TABLET BY MOUTH ONCE DAILY BEFORE BREAKFAST valacyclovir 500 MG tablet 500 mg PO DAILY hydroxyzine HCl 25 mg tablet 25 mg PO QHS tamsulosin 0.4 mg capsule 0.4 mg PO BID Changed amlodipine 10 mg tablet 5 mg PO DAILY Qty: 1 0RF Discontinued metoprolol tartrate 25 mg tablet 25 mg PO BID Referrals / Follow Up: Cody Carrington MD [Primary Care Provider] - Within 2 Weeks Disposition Disposition (needs filled in before D/C Order can be placed): Home, Self Care
[2023-06-17 14:25] LABS: Pathologist Review Reviewed
--- NOTE | 2023-06-17 14:25 | DS.PCM_ITS ---
Providers Date of Admission: 06/16/23 Date of Discharge: 06/17/23 Primary Care Physician: Dr. Cody Carrington MD Reason For Visit: NEW ONSET AFIB WITH RVR Diagnosis Discharge Diagnosis (1) Atrial fibrillation with RVR: Status: Acute Code(s): I48.91 - Unspecified atrial fibrillation (2) Transient hypotension: Status: Acute Code(s): I95.9 - Hypotension, unspecified (3) Lightheadedness: Status: Acute Code(s): R42 - Dizziness and giddiness (4) Elevated serum creatinine: Status: Acute Code(s): R79.89 - Other specified abnormal findings of blood chemistry (5) Hyperglycemia: Status: Acute Code(s): R73.9 - Hyperglycemia, unspecified (6) Leukocytosis: Status: Acute Code(s): D72.829 - Elevated white blood cell count, unspecified Plan 1. Atrial fibs with RVR #2 elevated serum creatinine #3 essential hypertension #4 hypothyroidism #5 hyperlipidemia Medications at Discharge Home Medications atorvastatin 40 mg tablet 40 mg PO QHS cholesterol 07/08/19 levothyroxine 88 mcg tablet 88 mcg PO DAILY thyroid 07/08/19 losartan 100 mg tablet 100 mg PO QHS bp 07/08/19 valacyclovir 500 mg tablet 500 mg PO DAILY herpes 07/03/20 hydroxyzine HCl 25 mg tablet 25 mg PO QHS anxiety 06/16/23 tamsulosin 0.4 mg capsule 0.4 mg PO BID prostate 06/16/23 amlodipine 10 mg tablet 5 mg (1/2 x 10 mg) PO DAILY blood pressure #1 TAB 06/17/23 apixaban 5 mg tablet (Eliquis) 5 mg PO BID #60 tabs 06/17/23 metoprolol tartrate 50 mg tablet 50 mg PO BID #60 tabs 06/17/23 Hospital Course Operations None Procedures 2-D Echocardiogram Summary of Care Provided Minutes Spent on Discharge: 31 Hospital Course: This 82-year-old white male was seen in the emergency room at [facility] with complaints of feeling lightheaded, he saw his primary care rajan zendejas that day and an EKG was performed that showed new onset atrial fibrillation, he was referred to the emergency room for evaluation, EKG in the ER showed atrial fibrillation with a ventricular rate of [address]-T wave changes, troponin was normal. Patient was given Cardizem 10 mg IV and his heart rate decreased to the 70s and 80s. Patient was placed in observation status on PCU and has beta-mague dosage was increased, patient converted to sinus rhythm. Echocardiogram showed a normal ejection fraction. On 06/17/2023, patient was seen and examined: On examination he appeared in good health and spirits. Vital signs as documented. Skin warm and dry and without overt rashes. Neck without JVD, neck was supple, trachea midline, thyroid was normal. Lungs clear bilaterally, normal air movement was noted. Heart exam notable for regular rhythm, normal sounds and absence of murmurs, rubs or gallops. Abdomen unremarkable and without evidence of organomegaly, masses, or abdominal aortic enlargement. Bowel sounds are present, abdomen is not distended. Extremities nonedematous, no cyanosis was noted, no clubbing was noted. Neuro: Cranial nerves II through XII are grossly intact, no focal motor deficits were noted, sensation to light touch and pinprick intact, motor exam 5/5 throughout. Psych: Patient is alert and oriented x3, he does not appear anxious or depressed, he does not appear agitated. Patient was discharged home in stable condition on 06/17/2023 Weight / BMI Weight Weight: 93.894 kg Body Mass Index (BMI) 32.4 ABG / Lab / Microbiology Data 06/17/23 02:30 06/17/23 02:30 Laboratory: Laboratory Results - last 24 hr 06/16/23 15:45: WBC 12.5 H, RBC 4.45 L, Hgb 14.0, Hct 42.6, MCV 95.7 H, MCH 31.5, MCHC 32.9, RDW Std Deviation 49.2 H, RDW Coeff of Briana 14.0, Plt Count 191, MPV 9.3, Immature Gran % (Auto) 0.500, Neut % (Auto) 69.4, Lymph % (Auto) 16.6 L , Kendall % (Auto) 13.0 H, Eos % (Auto) 0.2, Baso % (Auto) 0.3, Absolute Neuts (a uto) 8.7 H, Absolute Lymphs (auto) 2.08, Nucleated RBC % 0, Differential Comment SCANNED, Diff Path Review Reviewed, Sodium 135 L, Potassium 4.0, Chloride 100, Carbon Dioxide 25.0, Anion Gap 10, BUN 20 H, Creatinine 1.42 H, Estim Creat Clear Calc 45.74, Est GFR (MDRD) Af Amer 62, Est GFR (MDRD) Non-Af 51 L, BUN/Creatinine Ratio 14.1, Glucose 125 H, Calcium 9.7, Troponin I High Sens 28 06/16/23 20:17: Troponin I High Sens 32, TSH 3.42 06/16/23 22:30: Troponin I High Sens 33 06/17/23 02:30: WBC 8.8, RBC 3.85 L, Hgb 12.2 L, Hct 36.3 L, MCV 94.3 H, MCH 31.7, MCHC 33.6, RDW Std Deviation 47.5 H, RDW Coeff of Briana 14.0, Plt Count 177, MPV 8.9, Immature Gran % (Auto) 0.200, Neut % (Auto) 63.3, Lymph % (Auto) 20.2, Kendall % (Auto) 15.8 H, Eos % (Auto) 0.2, Baso % (Auto) 0.3, Absolute Neuts (auto) 5.6, Absolute Lymphs (auto) 1.77, Nucleated RBC % 0, Sodium 139, Potassium 4.5, Chloride 103, Carbon Dioxide 29.0, Anion Gap 7, BUN 16, Creatinine 1.00, Estim Creat Clear Calc 64.35, Est GFR (MDRD) Af Amer 92, Est GFR (MDRD) Non-Af 76, BUN/Creatinine Ratio 16.0, Glucose 116 H, Calcium 8.7, Phosphorus 3.1, Magnesium 2.1, Total Bilirubin 0.60, AST 22, ALT 15 L, Alkaline Phosphatase 52, Troponin I High Sens 32, Total Protein 6.3 L, Albumin 3.1 L, Globulin 3.2, Albumin/Globulin Ratio 1.0 Radiography Diagnostic Testing: Radiology Impression Chest X-Ray 06/16/23 16:10 IMPRESSION: Left basilar pulmonary opacity may be atelectasis or pneumonia. Electronically Signed: Con Carvajal DO at 16:38 EST , Echocardiogram 06/16/23 19:31 Interpretation Summary The estimated ejection fraction is 60 %. No evidence for diastolic dysfunction. The left atrium is moderately enlarged. Trivial aortic valve insufficiency. Ordering Physician: Lor Aguilar Referring Physician: Cody Carrington Performed By: Saskia Bazan RDCS, RVT D/C Instructions Discharge Diet: No restrictions Weight Bearing Status: Full weight bearing Meaningful Use Info Meaningful Use Diagnoses (Choose all that apply): None applicable Discharge Plan Admission Admit Date/Time: 06/16/23 16:46 Primary Reason for Your Visit: Atrial fibrillation Attending Provider: John Raza Primary Care Provider: Cody Carrington Consulting Providers: Lor Aguilar Instructions Additional Instructions / Restrictions: Do not take any ibuprofen or Aleve while taking Eliquis, do not take any aspirin while on Eliquis Reduce your amlodipine to one half of a 10 mg pill daily Discharge Orders/Prescriptions Prescriptions: New metoprolol tartrate 50 mg Tablet 50 mg PO BID Qty: 60 0RF Eliquis 5 mg Tablet 5 mg PO BID Qty: 60 0RF Continued losartan 100 mg tablet 100 mg PO QHS atorvastatin 40 mg tablet 40 mg PO QHS levothyroxine 88 mcg tablet 88 mcg PO DAILY Patient Comments: TAKE 1 TABLET BY MOUTH ONCE DAILY BEFORE BREAKFAST valacyclovir 500 MG tablet 500 mg PO DAILY hydroxyzine HCl 25 mg tablet 25 mg PO QHS tamsulosin 0.4 mg capsule 0.4 mg PO BID Changed amlodipine 10 mg tablet 5 mg PO DAILY Qty: 1 0RF Discontinued metoprolol tartrate 25 mg tablet 25 mg PO BID Referrals / Follow Up: Cody Carrington MD [Primary Care Provider] - Within 2 Weeks Disposition Disposition (needs filled in before D/C Order can be placed): Home, Self Care Charges/Coding Visit Charges Inpatient E&M: 78880 Disch Hosp >30min
--- NOTE | 2023-06-17 14:43 | CASEMGMT ---
Patient discharging on Aria, WOODY RDZ called Eddie to verify copay. Copay is $50. WOODY RDZ in to patient's room, updated regarding copay and savings card provided. Patient denies need or help at discharge. Patient had no further questions or concerns.
--- NOTE | 2023-06-17 15:11 | PHA.DC.MC.R ---
Pharmacy [facility] has performed discharge medication reconciliation and counseling for this patient. 1. APIXABAN 5MG PO BID The patient's discharge medication list was reviewed for discrepancies and discrepancies were resolved. The patient was counseled on the following discharge medications and changes in medications for homegoing were reviewed. The Reason for Use, instructions for use, and potential side effects were reviewed for all new medications. The patient's questions regarding all of their medications were answered. The patient was able to verbally demonstrate an understanding of their discharge medications. Patient counseled by student services vice presidentJomar. Medications at Discharge Home Medications atorvastatin 40 mg tablet 40 mg PO QHS cholesterol 07/08/19 levothyroxine 88 mcg tablet 88 mcg PO DAILY thyroid 07/08/19 losartan 100 mg tablet 100 mg PO QHS bp 07/08/19 valacyclovir 500 mg tablet 500 mg PO DAILY herpes 07/03/20 hydroxyzine HCl 25 mg tablet 25 mg PO QHS anxiety 06/16/23 tamsulosin 0.4 mg capsule 0.4 mg PO BID prostate 06/16/23 amlodipine 10 mg tablet 5 mg (1/2 x 10 mg) PO DAILY blood pressure #1 TAB 06/17/23 apixaban 5 mg tablet (Eliquis) 5 mg PO BID #60 tabs 06/17/23 metoprolol tartrate 50 mg tablet 50 mg PO BID #60 tabs 06/17/23
[2023-06-17 15:23] VITALS: BP 121/60; PULSE 56; RESP 16; TEMP 36.4; O2SAT 96
== END 2023-06-17 14:25 | disposition home or self-care (01) ==
LOC: ED 16:45 → PCU 17:00
PROVIDERS: Admitting Provider Internal Medicine; Emergency Provider Emergency Medicine; PCP Internal Medicine; Visit Provider Internal Medicine
DX: I48.91 Unspecified atrial fibrillation (principal); I12.9 Hypertensive chronic kidney disease with stage 1 through stage 4 chronic kidney disease, or unspecified chronic kidney disease; E78.00 Pure hypercholesterolemia, unspecified; R73.9 Hyperglycemia, unspecified; I95.9 Hypotension, unspecified; N18.9 Chronic kidney disease, unspecified; Z79.899 Other long term (current) drug therapy; Z79.890 Hormone replacement therapy; E03.9 Hypothyroidism, unspecified; E66.9 Obesity, unspecified; F41.9 Anxiety disorder, unspecified; N40.1 Benign prostatic hyperplasia with lower urinary tract symptoms; N13.8 Other obstructive and reflux uropathy
CPT/HCPCS: 36415; 71045; 80048; 80053; 83735; 84100; 84443; 84484; 85025; 93005; 93306; 96361; 96374; 97802; 99221; 99285; J7030; A4216; G0378

== ENCOUNTER → 2023-10-13 | Outpatient (CLI) | payer OTHER, MEDICARE, SELFPAY ==
--- NOTE | 2023-10-13 14:41 | ART_ITS ---
Reason For Study: BLE Claudication Procedure A bilateral lower extremity continuous wave Doppler with analog waveform analysis,segmental pressures,and ankle brachial indexes with exercise. Left Segmental Pressures Left brachial= 114mmHg. Left posterior tibial artery = 127mmHg. Left dorsalis pedis artery = 134mmHg. Left digit = 102 mmHg. The left posterior tibial artery waveforms are triphasic. The left dorsalis pedis waveforms are triphasic. Right Segmental Pressures Right brachial= 123mmHg. Right posterior tibial artery = 132mmHg. Right dorsalis pedis artery = 136mmHg. Right digit = 109 mmHg. The right posterior tibial artery waveforms are triphasic. The right dorsalis pedis waveforms are triphasic. Indices The right ankle brachial index by the posterior tibial artery is 1.07. The right ankle brachial index by the dorsalis pedis is 1.11. The right digital-brachial index is 0.89. The right ankle brachial index by the dorsalis pedis post exercise is 1.15. The left ankle brachial index by the posterior tibial artery is 1.03. The left ankle brachial index by the dorsalis pedis is 1.09. The left digital-brachial index is 0.83. The left dorsalis pedis index post exercise is 1.26. VL/Lower Ext Art Exam w/ Exercise Interpretation Summary Right TIESHA 1.11, normal. TBI and Doppler/PVR waveforms of the right leg normal a t rest. Right lower extremity exhibits normal response to exercise. Left TIESHA 1.09, normal. TBI and Doppler/PVR waveforms of the left leg normal at rest. Left lower extremity exhibits normal response to exercise. Ordering Physician: Nick Larkin Referring Physician: Cody Carrington M.D. Performed By: Juan Blanco RVGina
== END | disposition home or self-care (01) ==
LOC: CVS 14:37
PROVIDERS: PCP Internal Medicine; Referring Provider Internal Medicine Cardiovascular Disease; Visit Provider Internal Medicine Cardiovascular Disease
DX: I73.9 Peripheral vascular disease, unspecified (principal)
CPT/HCPCS: 93924

== ENCOUNTER → 2023-10-15 | Outpatient (CLI) | payer OTHER, MEDICARE, SELFPAY | END | disposition home or self-care (01) | PROVIDERS: PCP Internal Medicine; Referring Provider Internal Medicine Cardiovascular Disease; Visit Provider Internal Medicine Cardiovascular Disease | DX: I48.91 Unspecified atrial fibrillation (principal) | CPT/HCPCS: 93225; 93226 ==

== ENCOUNTER 2024-04-15 18:37 | Emergency (ER) | payer OTHER, MEDICARE, SELFPAY ==
[2024-04-15 18:39] VITALS: BP 138/65; PULSE 72; RESP 19; TEMP 36.9; O2SAT 91; BMI 30.7
--- NOTE | 2024-04-15 19:35 | EX.ED.DYSGE1 ---
HPI History of Present Illness Chief Complaint: Weakness Informant: patient, spouse/S.O. and EMS Narrative Narrative: 83-year-old male presenting to the emergency room for a fall. Patient recently underwent radiation therapy for prostate cancer. He states over the past week he has felt very fatigued. Today has not had much of an appetite. He is noting some urinary frequency some discomfort in the bilateral kidney area when he urinates. He notes no fever. He is not currently on anticoagulant because it was held for radiation therapy. Patient states he did not injure himself in the fall. believes he struck his head on the wall when he fell. No reported fevers. states he seemed very pale and out of bed during the event. He does not recall any chest pain palpitations preceding the event. He is not believe he lost consciousness. 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 07/03/20 06/15/23 History hydroxyzine HCl 25 mg tablet 25 mg PO QHS anxiety 06/16/23 06/15/23 History tamsulosin 0.4 mg capsule 0.4 mg PO BID prostate 06/16/23 06/14/23 History amlodipine 10 mg tablet 5 mg (1/2 x 10 mg) PO DAILY blood 06/17/23 06/15/23 Rx pressure #1 TAB metoprolol tartrate 50 mg tablet 50 mg PO BID #60 tabs 06/17/23 Unknown Rx finasteride 5 mg tablet 5 mg PO DAILY 09/22/23 Unknown History levothyroxine 112 mcg tablet 112 mcg PO DAILY 09/22/23 Unknown History (Synthroid) cefuroxime axetil 500 mg tablet 500 mg PO BID 7 days #14 tabs 04/15/24 Unknown Rx ondansetron 8 mg disintegrating 8 mg PO Q8H PRN PRN nausea/vomiting 04/15/24 Unknown History tablet Allergy/AdvReac Type Severity Reaction Status Date / Time No Known Allergies Allergy Unverified 09/23/23 10:49 Family History Other Hyperlipidemia Hypertension Thyroid disorder Surgical History History of shoulder surgery Social History household members: spouse housing: house Smoking Status: Former smoker alcohol intake: never substance use type: does not use ROS ROS ED ROS Narrative Generalized fatigue Constitutional Constitutional ED: Denies chills, fever(s) or weight loss Eyes Eyes: Denies change in vision or diplopia ENT ENT ED: Denies ear pain, rhinorrhea or sore throat Cardiovascular Cardiovascular: Denies chest pain, orthopnea, palpitations or racing heartbeat Respiratory/Chest Respiratory/Chest: Denies cough, dyspnea or orthopnea Gastrointestinal Gastrointestinal: Reports other Details: Decreased appetite ; Denies abdominal pain, diarrhea, nausea or vomiting Genitourinary Genitourinary ED: Reports urinary frequency; Denies dysuria or hematuria Musculoskeletal Musculoskeletal: Reports back pain; Denies arthralgias or myalgias Integumentary Denies abscess or rash Neurologic Neurologic: Denies headache(s) or weakness Psychiatric Psychiatric: Denies anxiety, depression, suicidal ideation or suicidal thoughts Endocrine Endocrinology: Denies polydipsia, polyphagia or polyuria Allergic/Immunologic Allergic/Immunologic ED: Denies mouth swelling, tongue swelling or urticaria EXAM Physical Exam Const Vital Signs: 04/15/24 18:39 04/15/24 18:45 04/15/24 20:13 Temperature 98.5 F Temperature Source Oral Pulse Rate 72 70 Respiratory Rate 19 H 17 Respiratory Effort Normal Non-Labored Respiratory Pattern Normal Blood Pressure 138/65 H 149/55 H Blood Pressure Mean 89 86 Pulse Ox 91 94 Oxygen Delivery Method Room Air Room Air 04/15/24 22:00 Temperature Temperature Source Pulse Rate 73 Respiratory Rate 16 Respiratory Effort Respiratory Pattern Blood Pressure 152/66 H Blood Pressure Mean 94 Pulse Ox 96 Oxygen Delivery Method Room Air Positive well nourished and well developed General Appearance ED: well developed HEENT Reports normocephalic, head/scalp atraumatic and moist mucous membranes Eyes PERRL and EOMs intact bilaterally Neck no lymphadenopathy, supple and no JVD Resp normal respiratory effort and clear to auscultation bilaterally Cardio regular rate, regular rhythm and no murmurs GI normal to inspection, nondistended, normoactive bowel sounds and non-tender Palpation: soft Back/Spine no CVA tenderness and normal ROM Extremity normal to inspection General Extremety ED: Negative for edema General Extremity: Negative for edema Neuro oriented x3 and CN's II-XII intact bilaterally Sensorium / Orientation: alert Motor Exam: strength 5/5 throughout Psych mental status grossly normal Mood & Affect: Negative for depressed or tearful Skin no rashes or lesions noted and no wounds MDM MDM MDM Narrative Medical decision making narrative: Differential diagnosis includes but not limited to UTI near-syncope anemia dehydration electrolyte abnormalities. Patient has been in normal sinus rhythm on the monitor his entire stay here. He has not had any episodes of hypotension. White blood cell count is 9 hemoglobin 11.1 creatinine slightly elevated at baseline of 1.82 with a BUN of 30 urinalysis demonstrated 50-100 white cells 5-10 red cells positive leukocyte Estrace negative nitrates rare bacteria. This can be sent for culture. Patient received IV fluids. After 1 L family notes that he seems more cognizant and that his color is better. He received a second liter of fluids. He ambulated without difficulty here in the department. Think it is reasonable to perform urine culture and start him on antibiotic for the urine. Would recommend oral hydration. I discussed with him that I would want him to feel safe going home and not be a fall risk. He states that he would prefer to go home and I think it is reasonable based on how he is ambulating and what we have seen here in the department. Family is comfortable with this plan return if worsening or concerns History & Record Review Discussion w/independent historian: Patient and Family Lab Data Attestation: I reviewed the patient's lab results. Labs: Laboratory Results - last 24 hr 04/15/24 04/15/24 18:45 20:50 WBC 9.0 RBC 3.39 L Hgb 11.1 L Hct 32.4 L MCV 95.6 H MCH 32.7 H MCHC 34.3 RDW Std Deviation 50.1 H RDW Coeff of Briana 14.6 Plt Count 201 MPV 9.0 Immature Gran % (Auto) 0.700 Neut % (Auto) 78.0 H Lymph % (Auto) 7.7 L Pierce % (Auto) 13.2 H Eos % (Auto) 0.1 Baso % (Auto) 0.3 Absolute Neuts (auto) 7.0 Absolute Lymphs (auto) 0.69 L Nucleated RBC % 0 Sodium 134 L Potassium 3.9 Chloride 101 Carbon Dioxide 23.0 Anion Gap 10 BUN 30 H Creatinine 1.82 H Estim Creat Clear Calc 33.86 Est GFR (MDRD) Af Amer 46 L Est GFR (MDRD) Non-Af 38 L BUN/Creatinine Ratio 16.5 Glucose 175 H Calcium 9.6 Urine Color Yellow Urine Clarity Sl. Cloudy Urine pH 6.0 Ur Specific [place] 1.010 Urine Protein 30 H Urine Glucose (UA) Normal Urine Ketones Negative Urine Occult Blood 50 H Urine Nitrite Negative Urine Bilirubin Negative Urine Urobilinogen Normal Ur Leukocyte Esterase 500 H Urine RBC 5-10 SEEN Urine WBC 50-100 SEEN Ur Squamous Epith Cells 0 SEEN Ur Renal Epithelial Cell 0-5 SEEN Urine Bacteria RARE Urine Mucus 1+ Radiography Diagnostic Testing: Clinical Impression(s) from Imaging Studies Brain CT 04/15/24 19:57 IMPRESSION: No acute intracranial findings. Electronically Signed: Charly Del Angel MD at 20:54 EST Reading Location ID and State: [facility] / [place] Tel , Service support , Discharge Plan Triage Chief Complaint: Weakness ED Provider: Fernando Hollins Dx/Rx/DC Orders Clinical Impression: Near syncope, Fall, Acute UTI, HERMES (acute kidney injury), Prostate cancer Prescriptions: New cefuroxime axetil 500 mg tablet 500 mg PO BID 7 Days Qty: 14 0RF No Action losartan 100 mg tablet 100 mg PO QHS atorvastatin 40 mg tablet 40 mg PO QHS levothyroxine [Synthroid] 112 mcg tablet 112 mcg PO DAILY finasteride 5 mg tablet 5 mg PO DAILY valacyclovir 500 MG tablet 500 mg PO DAILY hydroxyzine HCl 25 mg tablet 25 mg PO QHS tamsulosin 0.4 mg capsule 0.4 mg PO BID metoprolol tartrate 50 mg Tablet 50 mg PO BID Qty: 60 0RF amlodipine 10 mg tablet 5 mg PO DAILY Qty: 1 0RF ondansetron 8 mg tablet,disintegrating 8 mg PO Q8H PRN PRN (Reason: nausea/vomiting) Primary Care Provider: Cody Carrington Referrals: Cody Carrington MD [Primary Care Provider] - 3-5 Days if not improving Print Language: Bulgarian
[2024-04-15] MEDS: 0.9% Normal Saline (1000mL) 1,000 ML 1000 ML IV (19:39)
[2024-04-15 19:53] LABS: Absolute Lymphocyte Count 0.69 X10^3/uL (0.83-4.51); Basophil# 0.03 X10^3/uL; Basophil% 0.3 % (0-1); Eosinophil# 0.01 X10^3/uL; Eosinophils% 0.1 % (0-5); Hematocrit 32.4 % (40-54); Hemoglobin 11.1 g/dL (13.0-16.5); Lymphocyte # 0.69 X10^3/ul (0.83-4.51); Lymphocyte % 7.7 % (19-41); Mean Corp Hgb Conc 34.3 g/dL (32-36); Mean Corpuscular Hgb 32.7 pg (27.0-32.0); Mean Corpuscular Volume 95.6 fL (80-94); Monocyte# 1.19 X10^3/uL; Monocyte% 13.2 % (0-10); NRBC Flagged by Analyzer 0 % (0-5); Neutrophil # 7.02 X10^3/uL (2.7-7.7); Platelet Count 201 K/mm3 (150-450); RBC Distribution Width CV 14.6 % (11.6-14.6); RBC Distribution Width SD 50.1 fl (35.1-43.9); Red Blood Count 3.39 M/mm3 (4.6-6.2)
--- NOTE | 2024-04-15 19:57 | CT_ITS ---
INDICATION: Trauma, injury EXAMINATION: CT BRAIN - CT Head or Brain W/O Contrast Injection TECHNIQUE: Multiple axial images were obtained of the head without intravenous contrast. A radiation dose optimization technique was used for this scan. IV Contrast dosage and agent: None. COMPARISON: None. FINDINGS: BRAIN PARENCHYMA: No intra- or extra-axial hemorrhage. No evidence of acute infarct. No intracranial mass or mass effect. There is preservation of the toro/white matter interface. Posterior fossa structures are unremarkable. CSF SPACES: Appropriate for age. No hydrocephalus. Basal cisterns are patent. CALVARIUM, SKULL BASE, PARANASAL SINUSES AND MASTOID AIR CELLS: Clear. No acute skull fracture. CT/Brain/Head without Contrast IMPRESSION: No acute intracranial findings. Electronically Signed: Charly Del Angel MD at 20:54 EST ,
[2024-04-15 20:07] LABS: Anion Gap 10 (5-15); BUN 30 mg/dL (7-18); BUN/Creat Ratio 16.5 RATIO (10-20); Calcium,Total 9.6 mg/dL (8.5-10.1); Chloride 101 mmol/L (98-107); Creatinine, Serum 1.82 mg/dL (0.70-1.30); EST Glomerular Filtration Rate 38 mL/min (>60); Est Glom Filt Rate - Afr Amer 46 mL/min (>60); Estimated Creatinine Clearance 33.86 ml/min; Glucose 175 mg/dL (74-106); Potassium 3.9 mmol/L (3.5-5.1); Sodium Level 134 mmol/L (136-145)
[2024-04-15 20:13] VITALS: BP 149/55; PULSE 70; RESP 17; O2SAT 94
[2024-04-15 21:00] LABS: Squamous Epithelial Cells - UA 0 SEEN /hpf (0-5)
[2024-04-15 21:05] LABS: Color, Urine Yellow (Yellow); Glucose, Dipstick Normal (Normal); Ketone-Dipstick Negative (Negative); Leukocyte Esterase-Dipstick 500 /ul (Negative); Nitrite-Dipstick Negative (Negative); Occult Blood-Urine 50 /ul (Negative); Protein-Dipstick 30 mg/dl (Negative); Urine Bilirubin Dipstick Negative (Negative); Urine Clarity Sl. Cloudy (Clear); Urine Urobilinogen Normal (Normal)
[2024-04-15] MEDS: 0.9% Normal Saline (1000mL) 1,000 ML 999 ML IV (21:05)
[2024-04-15 21:14] LABS: White Blood Cells 50-100 SEEN /hpf (0-5)
[2024-04-15 21:15] LABS: Bacteria RARE /hpf (None Seen); Mucous, Urine 1+ /hpf (<or=2+); Red Blood Cells-Urine 5-10 SEEN /hpf (0-5); Renal Epithelial Cells 0-5 SEEN /hpf (0-5)
[2024-04-15 22:00] VITALS: BP 152/66; PULSE 73; RESP 16; O2SAT 96
[2024-04-15] MEDS: cefuroxime axetiL 250 MG TABLET 500 MG PO (23:06)
[2024-04-15 23:09] VITALS: BP 124/69; PULSE 78; RESP 16; TEMP 36.7; O2SAT 98
== END 2024-04-15 23:17 | disposition home or self-care (01) ==
PROVIDERS: Emergency Provider Emergency Medicine; PCP Internal Medicine; Visit Provider Emergency Medicine
DX: R55 Syncope and collapse (principal); C61 Malignant neoplasm of prostate; N17.9 Acute kidney failure, unspecified; I12.9 Hypertensive chronic kidney disease with stage 1 through stage 4 chronic kidney disease, or unspecified chronic kidney disease; E78.5 Hyperlipidemia, unspecified; N39.0 Urinary tract infection, site not specified; N18.9 Chronic kidney disease, unspecified; Z87.891 Personal history of nicotine dependence; R35.0 Frequency of micturition; W19.XXXA Unspecified fall, initial encounter
CPT/HCPCS: 70450; 80048; 81001; 85025; 87077; 87086; 87088; 87186; 99284; A4216

== ENCOUNTER 2024-04-16 11:48 | Inpatient (IN) | payer OTHER, MEDICARE, SELFPAY ==
[2024-04-16] VITALS (8 sets, daily range): BP systolic 118–126; BP diastolic 54–64; PULSE 64–73; RESP 15–18; TEMP 36.4–37.3; O2SAT 86–98; BMI 33.4; BMI 31.1
--- NOTE | 2024-04-16 12:17 | RAD_ITS ---
INDICATION: UTI, bilat ureteral stents EXAMINATION/TECHNIQUE: X-RAY - XR Abdomen 2 frontal views. COMPARISON: No relevant prior comparison study available FINDINGS: BOWEL GAS PATTERN: Non-obstructive. No bowel or stomach distention. FREE AIR: Not assessed on a single supine view. ORGANOMEGALY: Not seen. CALCIFICATIONS: There aren''t phleboliths within the pelvis. There are vascular calcifications. LOWER CHEST: No acute pathology. BONES AND SOFT TISSUES: There are degenerative changes of the lumbar spine and hips. There are two ureteral stents in place in a grossly satisfactory positions. RAD/Abdomen Single View IMPRESSION: Non-obstructive bowel gas pattern. Electronically Signed: Aranza Dewitt MD at 12:45 EST ,
--- NOTE | 2024-04-16 12:21 | EX.ED.DYSGE1 ---
HPI History of Present Illness Chief Complaint: Weakness Informant: patient and family Narrative Narrative: 83-year-old male seen here yesterday for urinary infection, he was feeling weak and decided to go home but is feeling weaker and had another couple of falls without injury and now is changing his mind about the offer that was given for admission. He denies any new symptoms except for an episode of vomiting and diarrhea. He had some abdominal pain last night but that is gone. States he is having kidney pain whenever he urinates, on both sides. Denies any urethral dysuria or hematuria. He denies any fevers or chills. No syncope. He did not hit his head since he was last here. He has prostate cancer and had a catheter in for a while that was taken out several days ago, and the discomfort with urinating has only been since then. He had bilateral ureteral stents placed by his urologist who is at [facility] in [place], about 6 weeks ago and those are still present. He states when he is not urinating he does not have any pain from them. 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 07/03/20 06/15/23 History hydroxyzine HCl 25 mg tablet 25 mg PO QHS anxiety 06/16/23 06/15/23 History tamsulosin 0.4 mg capsule 0.4 mg PO BID prostate 06/16/23 06/14/23 History amlodipine 10 mg tablet 5 mg (1/2 x 10 mg) PO DAILY blood 06/17/23 06/15/23 Rx pressure #1 TAB metoprolol tartrate 50 mg tablet 50 mg PO BID #60 tabs 06/17/23 Unknown Rx finasteride 5 mg tablet 5 mg PO DAILY 09/22/23 Unknown History levothyroxine 112 mcg tablet 112 mcg PO DAILY 09/22/23 Unknown History (Synthroid) cefuroxime axetil 500 mg tablet 500 mg PO BID 7 days #14 tabs 04/15/24 Unknown Rx ondansetron 8 mg disintegrating 8 mg PO Q8H PRN PRN nausea/vomiting 04/15/24 Unknown History tablet Allergy/AdvReac Type Severity Reaction Status Date / Time No Known Allergies Allergy Verified 04/16/24 11:53 Family History Other Hyperlipidemia Hypertension Thyroid disorder Surgical History History of shoulder surgery Social History household members: spouse housing: house Smoking Status: Former smoker alcohol intake: never substance use type: does not use ROS ROS ED Constitutional Constitutional ED: Reports weakness; Denies chills or fever(s) Eyes Eyes: Denies change in vision or diplopia ENT ENT ED: Denies rhinorrhea or sore throat Cardiovascular Cardiovascular: Denies chest pain or palpitations Respiratory/Chest Respiratory/Chest: Denies cough or dyspnea Gastrointestinal Gastrointestinal: Reports diarrhea, nausea and vomiting; Denies abdominal pain Genitourinary Genitourinary ED: Denies hematuria Musculoskeletal Musculoskeletal: Reports as per HPI and back pain; Denies extremity pain or neck pain Integumentary Denies abscess or rash Neurologic Neurologic: Denies headache(s), paresthesias or weakness Psychiatric Psychiatric: Denies anxiety or suicidal thoughts EXAM Physical Exam Const Vital Signs: 04/16/24 11:49 04/16/24 11:53 04/16/24 12:45 Temperature 99.1 F Temperature Source Oral Pulse Rate 70 Respiratory Rate 16 Respiratory Effort Normal Non-Labored Respiratory Pattern Normal Blood Pressure 126/54 H Blood Pressure Mean 78 Pulse Ox 94 86 Oxygen Delivery Method Room Air Oxygen Flow Rate (L/min) 04/16/24 12:49 Temperature Temperature Source Pulse Rate Respiratory Rate Respiratory Effort Respiratory Pattern Blood Pressure Blood Pressure Mean Pulse Ox 97 Oxygen Delivery Method Nasal Cannula Oxygen Flow Rate (L/min) 2 Positive well nourished and well developed Constitutional Narrative: Well-appearing General Appearance ED: well developed and NAD HEENT Reports moist mucous membranes normocephalic and atraumatic Eyes PERRL and EOMs intact bilaterally Neck full ROM and supple Resp normal respiratory effort and clear to auscultation bilaterally Cardio regular rate, regular rhythm and no murmurs Rate: Negative for tachycardic GI non-tender and non-distended Auscultation: normoactive bowel sounds Palpation: soft Back/Spine no CVA tenderness General Back: other FROM Extremity normal to inspection General Extremety ED: Negative for edema, pulses abnormal or tenderness General Extremity: Negative for edema or pulses abnormal Neuro oriented x3, CN's II-XII intact bilaterally and no sensory deficits noted Neuro Narrative: Nonfocal otherwise unremarkable neurologic exam Sensorium / Orientation: awake and alert Motor Exam: general weakness Psych mental status grossly normal Skin no rashes or lesions noted and no wounds MDM MDM MDM Narrative Medical decision making narrative: Labs show stable renal insufficiency, mild leukocytosis, I do not think need a repeat urinalysis. The culture is not yet returned/resulted. I reviewed the ED visit from yesterday. They performed a CT of the head due to his falls, do not think he needs that repeated but I did do a KUB to evaluate his ureteral stents. 2 views of my interpretation show good placement nothing else acute. Radiology in agreement. During his stay here, he dropped his oxygen saturations to 85% with a good waveform at rest without dyspnea or chest discomfort. Nurses put him on a nasal cannula which brought it up and I obtained a two-view chest x-ray for that reason, my interpretation shows no acute pneumonia or pneumothorax. He does not have sleep apnea. He is not tachycardic, his temperature is low-grade, but at this time he is not meeting any criteria for sepsis. In case he does, getting blood cultures before starting him on IV Rocephin. Clinically I am not suspicious for pyelonephritis. I see that the patient has a history of A-fib, he is in sinus rhythm here right now. He states he is supposed to be on a blood thinner but his physicians took him off of it temporarily several weeks ago, partly because of the ureteral stents. Plan for admission. Lab Data Attestation: I reviewed the patient's lab results. Labs: Laboratory Results - last 24 hr 04/16/24 12:24 WBC 12.2 H RBC 2.96 L Hgb 9.6 L Hct 28.0 L MCV 94.6 H MCH 32.4 H MCHC 34.3 RDW Std Deviation 50.0 H RDW Coeff of Briana 14.6 Plt Count 168 MPV 8.8 Immature Gran % (Auto) 0.500 Neut % (Auto) 87.1 H Lymph % (Auto) 2.2 L [place] % (Auto) 10.1 H Eos % (Auto) 0.0 Baso % (Auto) 0.1 Absolute Neuts (auto) 10.6 H Absolute Lymphs (auto) 0.27 L Nucleated RBC % 0 Sodium 135 L Potassium 3.5 Chloride 103 Carbon Dioxide 21.0 Anion Gap 11 BUN 28 H Creatinine 1.88 H Estim Creat Clear Calc 33.07 Est GFR (MDRD) Af Amer 44 L Est GFR (MDRD) Non-Af 37 L BUN/Creatinine Ratio 14.9 Glucose 144 H Lactic Acid 2.1 H* Calcium 9.0 Radiography Diagnostic Testing: Clinical Impression(s) from Imaging Studies KUB X-Ray 04/16/24 12:17 IMPRESSION: Non-obstructive bowel gas pattern. Electronically Signed: Aranza Dewitt MD at 12:45 EST , Rhythm Strip Rhythm Strip: Sinus Rhythm Rate: 70 Ectopy: None Management Discussion w/another healthcare provider: Hospitalist Discharge Plan Triage Chief Complaint: Weakness Other Complaint: General Illness ED Provider: Johnnie De La O Dx/Rx/DC Orders Clinical Impression: Debility, Complicated UTI (urinary tract infection), Hypoxemia Prescriptions: No Action losartan 100 mg tablet 100 mg PO QHS atorvastatin 40 mg tablet 40 mg PO QHS levothyroxine [Synthroid] 112 mcg tablet 112 mcg PO DAILY finasteride 5 mg tablet 5 mg PO DAILY valacyclovir 500 MG tablet 500 mg PO DAILY hydroxyzine HCl 25 mg tablet 25 mg PO QHS tamsulosin 0.4 mg capsule 0.4 mg PO BID metoprolol tartrate 50 mg Tablet 50 mg PO BID Qty: 60 0RF amlodipine 10 mg tablet 5 mg PO DAILY Qty: 1 0RF ondansetron 8 mg tablet,disintegrating 8 mg PO Q8H PRN PRN (Reason: nausea/vomiting) cefuroxime axetil 500 mg tablet 500 mg PO BID 7 Days Qty: 14 0RF Primary Care Provider: Cody Carrington Referrals: Cody Carrington MD [Primary Care Provider] - Print Language: Cypriot Disposition Disposition: Acute Care Hospital [facility]
[2024-04-16] MEDS: Ondansetron 4 MG/2 ML Vial IV (12:30)
[2024-04-16 12:34] LABS: Absolute Lymphocyte Count 0.27 X10^3/uL (0.83-4.51); Absolute Neutrophil Count 10.6 X10^3/uL (2.0-7.7); Basophil# 0.01 X10^3/uL; Basophil% 0.1 % (0-1); Hemoglobin 9.6 g/dL (13.0-16.5); Lymphocyte # 0.27 X10^3/ul (0.83-4.51); Lymphocyte % 2.2 % (19-41); Mean Corp Hgb Conc 34.3 g/dL (32-36); Mean Corpuscular Hgb 32.4 pg (27.0-32.0); Mean Corpuscular Volume 94.6 fL (80-94); Mean Platelet Vol. 8.8 fl (6.2-12.0); Monocyte# 1.23 X10^3/uL; Monocyte% 10.1 % (0-10); NRBC Flagged by Analyzer 0 % (0-5); Neutrophil # 10.64 X10^3/uL (2.7-7.7); Neutrophil % 87.1 % (47-70); POSITIVE DIFFERENTIAL YES; Platelet Count 168 K/mm3 (150-450); RBC Distribution Width CV 14.6 % (11.6-14.6); Red Blood Count 2.96 M/mm3 (4.6-6.2); White Blood Count 12.2 K/mm3 (4.4-11.0)
[2024-04-16 12:46] LABS: Anion Gap 11 (5-15); BUN 28 mg/dL (7-18); BUN/Creat Ratio 14.9 RATIO (10-20); Chloride 103 mmol/L (98-107); Creatinine, Serum 1.88 mg/dL (0.70-1.30); EST Glomerular Filtration Rate 37 mL/min (>60); Est Glom Filt Rate - Afr Amer 44 mL/min (>60); Estimated Creatinine Clearance 33.07 ml/min; Glucose 144 mg/dL (74-106); Potassium 3.5 mmol/L (3.5-5.1); Sodium Level 135 mmol/L (136-145)
--- NOTE | 2024-04-16 13:13 | RAD_ITS ---
INDICATION: weakness, hypoxemia EXAMINATION/TECHNIQUE: X-RAY - XR Chest 2 Views COMPARISON: June 16, 2023 FINDINGS: LINES/DEVICES: None. LUNGS: No consolidation, edema or effusion. No pneumothorax. MEDIASTINUM AND CARDIOVASCULAR STRUCTURES: There is stable cardiomegaly. Central airways and mediastinal contour are unremarkable. BONES AND SOFT TISSUES: Unremarkable. RAD/Chest PA and Lateral IMPRESSION: No radiographic evidence of acute cardiopulmonary disease. Electronically Signed: Aranza Dewitt MD at 13:22 EST ,
[2024-04-16 13:15] LABS: Lactic Acid 2.1 mmol/L (0.4-1.9)
[2024-04-16] MEDS: Ceftriaxone 1 GM/50 ML BAG IV (13:34)
[2024-04-16 16:28] LABS: Reflex Lactate? Y
[2024-04-16] MEDS: 0.9% Saline Lock 10 ML Syringe IV (16:37)
[2024-04-16] MEDS: 0.9% Normal Saline (1000mL) 1,000 ML 100 ML IV (16:37)
[2024-04-16 17:22] LABS: Lactic Acid 1.3 mmol/L (0.4-1.9)
--- NOTE | 2024-04-16 17:58 | PCM.HP.STD ---
HPI - General General Date of Admission: 04/16/24 Date of Service: 04/16/24 Chief Complaint: Generalized weakness, urinary tract infection HPI Narrative CLINT MONIQUE, is a 83 M who presents to the emergency room at [facility] with complaints of generalized weakness over the last 24 hours, patient had been diagnosed with a urinary tract infection in the emergency room yesterday and placed on oral antibiotics. He has a history of bilateral ureteral stent placement 6 weeks ago due to prostate cancer. Patient has a history of paroxysmal A-fib and is currently off Eliquis at the present time. Lab obtained in the emergency room showed elevated white blood cell count of 12.2, hemoglobin was 9.6, creatinine was 1.88 and BUN was 28. Blood sugar was 144. Patient's pulse ox was 86% on room air, he was placed on 2 L of oxygen. Urinalysis obtained from yesterday in the ER showed 50-100 WBCs, 5-10 RBCs, and rare bacteria. Chest x-ray showed no radiographic evidence of acute cardiopulmonary disease. Patient will be admitted for acute debility and dehydration, he will be seen by PT and OT, IV fluids will be administered, patient will receive IV antibiotics for his UTI. [facility] Medical History Prostate CA Erectile dysfunction Elevated PSA Atrial fibrillation CKD (chronic kidney disease) Obesity (BMI 30.0-34.9) Anxiety Hypothyroidism Hyperlipidemia BPH (benign prostatic hyperplasia) Hyperglycemia Hypertension Home Medications ?Medication ?Instructions ?Recorded ?Last Taken ?Type atorvastatin 40 mg tablet 40 mg PO QHS cholesterol 07/08/19 06/14/23 History losartan 100 mg tablet 100 mg PO QHS bp 07/08/19 06/15/23 History valacyclovir 500 mg tablet 500 mg PO DAILY herpes 07/03/20 06/15/23 History hydroxyzine HCl 25 mg tablet 25 mg PO QHS anxiety 06/16/23 06/15/23 History tamsulosin 0.4 mg capsule 0.4 mg PO BID prostate 06/16/23 06/14/23 History amlodipine 10 mg tablet 5 mg (1/2 x 10 mg) PO DAILY blood 06/17/23 06/15/23 Rx pressure #1 TAB metoprolol tartrate 50 mg tablet 50 mg PO BID #60 tabs 06/17/23 Unknown Rx finasteride 5 mg tablet 5 mg PO DAILY 09/22/23 Unknown History levothyroxine 112 mcg tablet 112 mcg PO DAILY 09/22/23 Unknown History (Synthroid) cefuroxime axetil 500 mg tablet 500 mg PO BID 7 days #14 tabs 04/15/24 Unknown Rx ondansetron 8 mg disintegrating 8 mg PO Q8H PRN PRN nausea/vomiting 04/15/24 Unknown History tablet Allergy/AdvReac Type Severity Reaction Status Date / Time No Known Allergies Allergy Verified 04/16/24 11:53 Family History Other Hyperlipidemia Hypertension Thyroid disorder Surgical History History of shoulder surgery Social History household members: spouse housing: house Smoking Status: Former smoker alcohol intake: never substance use type: does not use ROS Constitutional Constitutional: Reports fatigue, malaise and weakness; Denies anorexia, change in weight, chills, fever(s) or night sweats Eyes Eyes: Denies blurry vision, change in vision, discharge from eye(s) or eye pain Cardiovascular Cardiovascular: Denies chest pain, claudication, dyspnea on exertion, edema, lightheadedness or palpitations Respiratory/Chest Respiratory/Chest: Denies cough, dyspnea, hemoptysis, productive cough, shortness of breath at rest or shortness of breath with exertion Gastrointestinal Gastrointestinal: Denies abdominal pain, constipation, diarrhea, hematemesis, hematochezia, melena, nausea or vomiting Genitourinary Genitourinary: Denies difficulty urinating, dysuria, hematuria, urinary frequency, urinary hesitancy, urinary incontinence or urinary urgency Musculoskeletal Musculoskeletal: Denies back pain, joint pain, joint stiffness, joint swelling, myalgias or neck pain Neurologic Neurologic: Denies abnormal gait, abnormal speech, dizziness, focal weakness, headache(s), loss of vision, numbness, other visual disturbances, paresthesias, syncope or tingling Psychiatric Psychiatric: Denies anxiety, cognitive impairment, depression, irritability, mood swings or suicidal ideation Endocrine Endocrinology: Denies change in body appearance, cold intolerance, excessive sweating, heat intolerance, polydipsia or polyuria Hematologic/Lymphatic Hematologic/Lymphatic: Denies none, anemia, easy bleeding, easy bruising or lymphadenopathy Allergic/Immunologic Allergic/Immunologic: Denies rhinitis, urticaria, eczemia or asthma Vital Signs Vital Signs Vital Signs: 04/16/24 11:49 04/16/24 11:53 04/16/24 12:45 Temperature 99.1 F Temperature Source Oral Pulse Rate 70 Respiratory Rate 16 Respiratory Effort Normal Non-Labored Respiratory Depth Respiratory Pattern Normal Blood Pressure 126/54 H Blood Pressure Mean 78 Blood Pressure Source Blood Pressure Position Blood Pressure Location Pulse Ox 94 86 Oxygen Delivery Method Room Air Oxygen Flow Rate (L/min) 04/16/24 12:49 04/16/24 14:00 04/16/24 14:34 Temperature 97.7 F L Temperature Source Pulse Rate 64 64 Respiratory Rate 15 15 Respiratory Effort Respiratory Depth Respiratory Pattern Blood Pressure 120/55 L 120/55 L Blood Pressure Mean 76 76 Blood Pressure Source Blood Pressure Position Blood Pressure Location Pulse Ox 97 98 98 Oxygen Delivery Method Nasal Cannula Nasal Cannula Oxygen Flow Rate (L/min) 2 2 04/16/24 16:02 04/16/24 16:15 Temperature 97.8 F Temperature Source Oral Pulse Rate 64 Respiratory Rate 18 Respiratory Effort Normal Non-Labored Respiratory Depth Normal Respiratory Pattern Normal Blood Pressure 118/60 Blood Pressure Mean 79 Blood Pressure Source Monitor Blood Pressure Position Semi-Fowlers Blood Pressure Location Left Arm Pulse Ox 97 Oxygen Delivery Method Nasal Cannula Nasal Cannula Oxygen Flow Rate (L/min) 2 2 Weight Weight: 87.7 kg Body Mass Index (BMI) 31.1 Physical Exam Const alert, oriented x3 and no apparent distress Constitutional Narrative: Patient appears weak and somewhat frail General Appearance: cooperative, well kempt and well developed Orientation / Consciousness: awake, oriented to person, oriented to place and oriented to time HEENT normocephalic, head/scalp atraumatic, hearing grossly normal bilaterally and moist oral mucous membranes Eyes PERRL, EOMs intact bilaterally and conjunctivae normal Neck supple, no JVD, thyroid normal and no carotid bruits General: trachea midline Resp normal respiratory effort, no retractions, no use of accessory muscles and clear to auscultation bilaterally Auscultation: Negative for rales, rhonchi or wheezes Cardio regular rate, regular rhythm, S1 normal heart sound, S2 normal heart sound, no murmurs, no rub and no gallops GI normal to inspection, nondistended, normoactive bowel sounds, soft to palpation, non-tender and non-distended Extremity no clubbing, cyanosis or edema Skin no rashes or lesions noted General Skin Exam: no breakdown Neuro oriented x3, CN's II-XII intact bilaterally, moves all extremities, no focal motor deficits and no sensory deficits noted Sensorium / Orientation: awake and alert Speech: speech normal Psych affect normal Results Lab / Micro Data 04/16/24 12:24 04/16/24 12:24 Labs: Laboratory Results - last 24 hr 04/16/24 12:24: WBC 12.2 H, RBC 2.96 L, Hgb 9.6 L, Hct 28.0 L, MCV 94.6 H, MCH 32.4 H, MCHC 34.3, RDW Std Deviation 50.0 H, RDW Coeff of Briana 14.6, Plt Count 168, MPV 8.8, Immature Gran % (Auto) 0.500, Neut % (Auto) 87.1 H, Lymph % (Auto) 2.2 L, [place] % (Auto) 10.1 H, Eos % (Auto) 0.0, Baso % (Auto) 0.1, Absolute Neuts (auto) 10.6 H, Absolute Lymphs (auto) 0.27 L, Nucleated RBC % 0, Sodium 135 L, Potassium 3.5, Chloride 103, Carbon Dioxide 21.0, Anion Gap 11, BUN 28 H, Creatinine 1.88 H, Estim Creat Clear Calc 33.07, Est GFR (MDRD) Af Amer 44 L, Est GFR (MDRD) Non-Af 37 L, BUN/Creatinine Ratio 14.9, Glucose 144 H, Lactic Acid 2.1 H*, Calcium 9.0 04/16/24 16:45: Lactic Acid 1.3 Rhythm Strip Rhythm Strip: Sinus Rhythm Rate: 70 Ectopy: None Imaging Radiology Impression KUB X-Ray 04/16/24 12:17 IMPRESSION: Non-obstructive bowel gas pattern. Electronically Signed: Aranza Dewitt MD at 12:45 EST , Chest X-Ray 04/16/24 13:13 IMPRESSION: No radiographic evidence of acute cardiopulmonary disease. Electronically Signed: Aranza Dewitt MD at 13:22 EST , Assessment & Plan Assessment/Plan (1) Acute UTI: PLAN: Plan 1. Dehydration-patient will be admitted to [place] [id number] and receive IV fluids, labs will be monitored #2 acute debility-patient will be seen by PT and OT #3 hypoxia-etiology unclear, patient does not complain of any dyspnea but his pulse ox in the emergency room was 86% on room air. Patient was not ambulated. Supplemental oxygen will be administered as needed, patient's chest x-ray did not show any acute process. #4 paroxysmal [id number] has been off his Eliquis for several weeks since his stents were placed in his ureters, he is awaiting outpatient follow-up with his PCP to resume his Eliquis. Patient states he has 1 documented history of A-fib in the past. #5 prostate cancer-complicates care, management, recovery, and prognosis #6 acute cystitis-patient will be given IV Rocephin, labs will be monitored\ #7 hypothyroidism-patient is on Synthroid, this will be continued Total clinical time spent by myself addressing the patient's medical issues, reviewing all of his data, and collaborating with patient's care team: 55 minutes Charges/Coding Visit Charges Inpatient E&M: 17096 Init Hosp L2
[2024-04-16] MEDS: Ondansetron 8 MG Tablet PO (21:00)
[2024-04-16] MEDS: Heparin Injection (Vial) 5,000 UNIT/ML VIAL 5000 UNIT SC (21:54)
[2024-04-16] MEDS: Atorvastatin Calcium 40 MG Tablet PO (21:55)
[2024-04-16] MEDS: Losartan Potassium 100 MG Tablet PO (21:55)
[2024-04-16] MEDS: Tamsulosin HCl 0.4 MG Capsule PO (21:55)
[2024-04-16] MEDS: Metoprolol Tartrate 50 MG Tablet PO (21:55)
[2024-04-16] MEDS: Acyclovir 200 MG Capsule 400 MG PO (21:57)
[2024-04-16] MEDS: hydrOXYzine PAM 25 MG Capsule PO (21:57)
[2024-04-17] VITALS (10 sets, daily range): BP systolic 118–137; BP diastolic 39–68; PULSE 56–78; RESP 16; TEMP 36.4–38.1; O2SAT 93–97
[2024-04-17] MEDS: 0.9% Normal Saline (1000mL) 1,000 ML 100 ML IV ×2 (03:17→15:16)
[2024-04-17] MEDS: Levothyroxine 112 MCG Tablet PO (05:38)
[2024-04-17 05:50] LABS: Absolute Lymphocyte Count 0.61 X10^3/uL (0.83-4.51); Absolute Neutrophil Count 10.7 X10^3/uL (2.0-7.7); Basophil# 0.02 X10^3/uL; Basophil% 0.2 % (0-1); Hematocrit 25.3 % (40-54); Hemoglobin 8.3 g/dL (13.0-16.5); Lymphocyte # 0.61 X10^3/ul (0.83-4.51); Lymphocyte % 4.8 % (19-41); Mean Corp Hgb Conc 32.8 g/dL (32-36); Mean Corpuscular Hgb 32.2 pg (27.0-32.0); Mean Corpuscular Volume 98.1 fL (80-94); Mean Platelet Vol. 9.2 fl (6.2-12.0); Monocyte# 1.21 X10^3/uL; Monocyte% 9.6 % (0-10); NRBC Flagged by Analyzer 0 % (0-5); Neutrophil # 10.67 X10^3/uL (2.7-7.7); Neutrophil % 84.4 % (47-70); Platelet Count 132 K/mm3 (150-450); RBC Distribution Width SD 53.8 fl (35.1-43.9); Red Blood Count 2.58 M/mm3 (4.6-6.2); White Blood Count 12.6 K/mm3 (4.4-11.0)
[2024-04-17 06:10] LABS: Anion Gap 6 (5-15); BUN 32 mg/dL (7-18); BUN/Creat Ratio 18.3 RATIO (10-20); Calcium,Total 8.4 mg/dL (8.5-10.1); Chloride 107 mmol/L (98-107); Creatinine, Serum 1.75 mg/dL (0.70-1.30); EST Glomerular Filtration Rate 40 mL/min (>60); Est Glom Filt Rate - Afr Amer 48 mL/min (>60); Estimated Creatinine Clearance 34.35 ml/min; Glucose 132 mg/dL (74-106); Potassium 3.9 mmol/L (3.5-5.1); Sodium Level 137 mmol/L (136-145)
[2024-04-17] MEDS: Ondansetron 4 MG/2 ML Vial IV (08:58)
[2024-04-17] MEDS: Ceftriaxone 1 GM/50 ML BAG IV (08:59)
[2024-04-17] MEDS: amLODIPine 5 MG Tablet PO (09:10)
[2024-04-17] MEDS: Metoprolol Tartrate 50 MG Tablet PO ×2 (09:10→21:17)
[2024-04-17] MEDS: Finasteride 5 MG Tablet PO (09:10)
[2024-04-17] MEDS: Tamsulosin HCl 0.4 MG Capsule PO ×2 (09:10→21:18)
[2024-04-17] MEDS: Acyclovir 200 MG Capsule 400 MG PO ×2 (09:11→21:17)
[2024-04-17] MEDS: Heparin Injection (Vial) 5,000 UNIT/ML VIAL 5000 UNIT SC ×2 (09:12→21:18)
--- NOTE | 2024-04-17 09:31 | CASEMGMT ---
WOODY RDZ Assessment Face to Face with patient for initial transition planning/care coordination assessment. WOODY RDZ introduced self and role at [facility], pt voices understanding. Pt is A&Ox4 and is resting comfortably in the chair and is calm. Care providers, pharmacy, and demographics verified. Admitting dx: UTI PCP: [facility] Special[facility]: Pt sees a Urologist out of [facility] but cannot recall the name. Dr. Ha (Oncology), Dr. Aguilar (Radiation Oncology) Preferred Pharmacy: [facility] Insurance: [employer] A/B Prescription Benefit: Yes LNOK: Susanne Villar (W) Living Arrangements: Pt lives with his in a 2 story home with 3 steps to enter ADLs/IADLs: Ind Transportation: Self. Pt states that his daughter will drive him home at time of DC DME: BP Monitor. Pt states that he has a Borrego in place x 6 weeks but was taken out last Friday. Pt is currently saturating well on RA. HHC/SNF: Denies history or needs Pt?s goal: Return home Plan: Home no needs. Pt states that he can afford his Eliquis at home. Pt states that he is independent and does not need or want HH, SNF, OP Tx, or CCN. Pt states that he feels safe returning home with his once he is medically ready. However, PT is ordered and evaluation pending. Care Management to follow. Hernando Smith RN, CM
--- NOTE | 2024-04-17 10:52 | PN_ITS ---
Subjective Subjective Patient seen and examined. HE complains of flank pain but says the burning with urination is improving. HE denies any fever or chills or any other symptoms. Review of systems is otherwise negative. Objective Data Objective Data Vital Signs: Vital Signs Temp Pulse Resp BP Pulse Ox O2 Del Method O2 Flow Rate 97.6 F L 70 16 129/39 H 96 Nasal Cannula 2 04/17/24 07:58 04/17/24 09:10 04/17/24 07:58 04/17/24 07:58 04/17/24 07:58 04/17/24 07:58 04/17/24 07:58 Oxygen Flow Rate (L/min) 2 Oxygen Delivery Method Nasal Cannula Weight: 193 lb 5.526 oz Body Mass Index (BMI) 31.1 Intake & Output: Intake and Output for Last 24 Hours 04/15/24 04/16/24 04/17/24 23:59 23:59 23:59 Intake Total 150 / 375 1825 / 1825 Output Total 450 / 450 Balance 150 / 225 1375 / 1375 Lab / Micro Data 04/17/24 04:45 04/17/24 04:45 Labs: Laboratory Results - last 24 hr 04/16/24 12:24: WBC 12.2 H, RBC 2.96 L, Hgb 9.6 L, Hct 28.0 L, MCV 94.6 H, MCH 32.4 H, MCHC 34.3, RDW Std Deviation 50.0 H, RDW Coeff of Briana 14.6, Plt Count 168, MPV 8.8, Immature Gran % (Auto) 0.500, Neut % (Auto) 87.1 H, Lymph % (Auto) 2.2 L, [place] % (Auto) 10.1 H, Eos % (Auto) 0.0, Baso % (Auto) 0.1, Absolute Neuts (auto) 10.6 H, Absolute Lymphs (auto) 0.27 L, Nucleated RBC % 0, Sodium 135 L, Potassium 3.5, Chloride 103, Carbon Dioxide 21.0, Anion Gap 11, BUN 28 H, C reatinine 1.88 H, Estim Creat Clear Calc 33.07, Est GFR (MDRD) Af Amer 44 L, Est GFR (MDRD) Non-Af 37 L, BUN/Creatinine Ratio 14.9, Glucose 144 H, Lactic Acid 2.1 H*, Calcium 9.0 04/16/24 16:45: Lactic Acid 1.3 04/17/24 04:45: WBC 12.6 H, RBC 2.58 L, Hgb 8.3 L, Hct 25.3 L, MCV 98.1 H, MCH 32.2 H, MCHC 32.8, RDW Std Deviation 53.8 H, RDW Coeff of Briana 15.0 H, Plt Count 132 L, MPV 9.2, Immature Gran % (Auto) 1.000 H, Neut % (Auto) 84.4 H, Lymph % (Auto) 4.8 L, [place] % (Auto) 9.6, Eos % (Auto) 0.0, Baso % (Auto) 0.2, Absolute Neuts (auto) 10.7 H, Absolute Lymphs (auto) 0.61 L, Nucleated RBC % 0, Sodium 137, Potassium 3.9, Chloride 107, Carbon Dioxide 24.0, Anion Gap 6, BUN 32 H, C reatinine 1.75 H, Estim Creat Clear Calc 34.35, Est GFR (MDRD) Af Amer 48 L, Est GFR (MDRD) Non-Af 40 L, BUN/Creatinine Ratio 18.3, Glucose 132 H, Calcium 8.4 L Radiography Diagnostic Testing: Radiology Impression KUB X-Ray 04/16/24 12:17 IMPRESSION: Non-obstructive bowel gas pattern. Electronically Signed: Aranza Dewitt MD at 12:45 EST Reading Location ID and State: [facility] / [place] Tel , Service support , Chest X-Ray 04/16/24 13:13 IMPRESSION: No radiographic evidence of acute cardiopulmonary disease. Electronically Signed: Aranza Dewitt MD at 13:22 EST , Rhythm Strip Rhythm Strip: Sinus Rhythm Rate: 70 Ectopy: None Physical Exam Const alert, oriented x3, no apparent distress and well nourished General Appearance: cooperative and well developed HEENT normocephalic, head/scalp atraumatic, moist oral mucous membranes and oropharynx normal Eyes PERRL and EOMs intact bilaterally Neck no lymphadenopathy and supple Lymph Lymphatic: no lymphadenopathy noted and no lymphedema noted Resp normal respiratory effort, normal air movement and clear to auscultation bilaterally Cardio regular rate, regular rhythm, S1 normal heart sound and S2 normal heart sound GI normal to inspection, nondistended, normoactive bowel sounds, soft to palpation and non-tender GI Narrative: no CVA tenderness Extremity normal capillary refill, no clubbing, cyanosis or edema and no calf tenderness General Extremity: no tenderness to palpation of joints or extremities Skin General Skin Exam: no breakdown Neuro CN's II-XII intact bilaterally, no focal motor deficits and no sensory deficits noted Motor Exam: strength 5/5 throughout and general weakness Psych thought process normal and cooperative Appearance: appropriate Assessment & Plan Assessment/Plan (1) Complicated UTI (urinary tract infection): PLAN: Plan #UTI * complains of bilateral flank pain, though he had no CVA tenderness on examination. * on IV ceftriaxone * he did have ureteric stents inserted ~ 6 weeks ago. * will get a CT abdomen and pelvis without contrast as he keeps complaining of bilateral flank pain * PO tylenol, IV morphine and pO oxycodone prn for pain. * Urine culture from 04/23/2024 grew Enterococcus faecalis. Will switch antibiotics to IV ciprofloxacin based on sensitivities * blood cultures pending * * #History of prostate cancer * Had ureteric stents placed about 6 weeks ago as above. Follows with urology on outpatient basis * On finasteride and tamsulosin #Anemia: * Hemoglobin was 9.6 on admission. * It was 11.1 2 days ago. Hemoglobin today is 8.3. * There may be a component of hemodilution but will monitor closely and do further workup if it drops further. * #HERMES: * Creatinine was 1.822 days ago and was 1.88 yesterday. Is 1.75 today. * Baseline from June 2023 showed creatinine of 1 though in 2020 creatinine was 2.07. * It is therefore unclear if this does CKD or HERMES or HERMES on CKD. * Continue gentle hydration with IV fluids and trend creatinine. * #Thrombocytopenia: * Platelets around 132 forms 168 on admission yesterday. * This may be due to hemodilution as he received IV fluids. * #Paroxysmal A-fib: * Has not of his Eliquis for several weeks since the stents were inserted. He is follow-up with his PCP on outpatient basis to determine when he can resume his Eliquis. * On metoprolol * #Hypothyroidism: On Synthroid #Hypertension: Amlodipine and metoprolol as well as losartan # Hyperlipidemia: On statin DVT prophylaxis: Heparin Charges/Coding Visit Charges Inpatient E&M: 21677 Subs Hosp L2
--- NOTE | 2024-04-17 11:08 | CT_ITS ---
HISTORY: abdominal pain, history of ureteral bilateral stents placed 6 weeks ago due to prostate cancer, radiation treatments. TECHNIQUE: Helically acquired images were obtained of the abdomen and pelvis without oral or IV contrast. A radiation dose optimization technique was used for this scan. 503 images. COMPARISON: XR prior day FINDINGS: LOWER CHEST: Calcified left lower lobe granuloma. Trace pleural effusions with mild dependent atelectasis. BOWEL: Bowel including appendix nondilated. Moderate stool in the colon. PERITONEUM: Trace free fluid. LIVER/SPLEEN: Nonenlarged. GALLBLADDER/BILIARY TREE: Contracted gallbladder. PANCREAS/ADRENAL GLANDS: Unremarkable. KIDNEYS AND URETERS: Mild bilateral perinephric and periureteral edema with bilateral ureteral stents in place. Mild bilateral hydronephrosis and distended extrarenal pelves without nephrolithiasis or obstructing ureteral calculus identified. VESSELS: No abdominal aortic aneurysm. Atherosclerosis. Mild retrocaval and periaortic lymph nodes measuring up to 1.2 x 1.9 cm. PELVIC ORGANS: Bladder wall thickening. Distal ends of bilateral ureteral stents in the bladder. Mild prostate calcifications. Mild presacral edema. Mild enlarged pelvic lymph nodes bilaterally measuring up to 1.6 cm on the right. BONES: 1.2 cm sclerotic lesion in the left L2 vertebral body. Degenerative change. Bilateral L5 spondylolysis with grade [address]/Abdomen/Pelvis without Cont IMPRESSION: Bilateral ureteral stents in place with mild bilateral hydronephrosis. Negative examination for renal stone. Bilateral perinephric, periureteral, and bladder wall edema, which may be related to posttreatment inflammation or infection. 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 Sclerotic lesion in the L2 vertebral body, suspicious for osteoblastic metastasis. Recommend bone scan correlation. Trace pleural effusions and ascites. Electronically Signed: Jaky Hou MD at 12:46 EST ,
[2024-04-17] MEDS: Ciprofloxacin 400 MG/200 ML BAG 200 MG IV ×2 (11:41→21:17)
[2024-04-17] MEDS: Acetaminophen 325 MG Tablet 650 MG PO (19:43)
[2024-04-17] MEDS: Atorvastatin Calcium 40 MG Tablet PO (21:17)
[2024-04-17] MEDS: Losartan Potassium 100 MG Tablet PO (21:18)
[2024-04-17] MEDS: hydrOXYzine PAM 25 MG Capsule PO (21:19)
[2024-04-18 02:00] VITALS: BP 141/56; PULSE 62; RESP 16; TEMP 37.1; O2SAT 96
[2024-04-18] MEDS: Ondansetron 4 MG/2 ML Vial IV (02:35)
[2024-04-18] MEDS: 0.9% Saline Lock 10 ML Syringe IV ×3 (02:35→10:15)
[2024-04-18] MEDS: Levothyroxine 112 MCG Tablet PO (04:14)
[2024-04-18 06:23] LABS: Absolute Lymphocyte Count 0.66 X10^3/uL (0.83-4.51); Absolute Neutrophil Count 10.8 X10^3/uL (2.0-7.7); Basophil# 0.01 X10^3/uL; Basophil% 0.1 % (0-1); Hematocrit 25.3 % (40-54); Hemoglobin 8.4 g/dL (13.0-16.5); Lymphocyte # 0.66 X10^3/ul (0.83-4.51); Lymphocyte % 5.3 % (19-41); Mean Corp Hgb Conc 33.2 g/dL (32-36); Mean Corpuscular Hgb 32.3 pg (27.0-32.0); Mean Corpuscular Volume 97.3 fL (80-94); Mean Platelet Vol. 9.2 fl (6.2-12.0); Monocyte# 0.91 X10^3/uL; Monocyte% 7.3 % (0-10); NRBC Flagged by Analyzer 0 % (0-5); Neutrophil # 10.79 X10^3/uL (2.7-7.7); Neutrophil % 86.7 % (47-70); Platelet Count 123 K/mm3 (150-450); RBC Distribution Width CV 14.8 % (11.6-14.6); RBC Distribution Width SD 53.1 fl (35.1-43.9); White Blood Count 12.5 K/mm3 (4.4-11.0)
[2024-04-18 06:51] LABS: Anion Gap 6 (5-15); BUN 27 mg/dL (7-18); BUN/Creat Ratio 15.2 RATIO (10-20); Calcium,Total 8.2 mg/dL (8.5-10.1); Chloride 106 mmol/L (98-107); Creatinine, Serum 1.78 mg/dL (0.70-1.30); EST Glomerular Filtration Rate 39 mL/min (>60); Est Glom Filt Rate - Afr Amer 47 mL/min (>60); Estimated Creatinine Clearance 33.77 ml/min; Glucose 135 mg/dL (74-106); Potassium 3.5 mmol/L (3.5-5.1); Sodium Level 134 mmol/L (136-145)
[2024-04-18 07:48] VITALS: O2SAT 95
[2024-04-18 08:00] VITALS: PULSE 100; RESP 18; O2SAT 92
[2024-04-18 08:54] VITALS: BP 132/61; PULSE 100; RESP 18; TEMP 36.6; O2SAT 92
[2024-04-18] MEDS: Acetaminophen 325 MG Tablet 650 MG PO (08:59)
[2024-04-18] MEDS: Acyclovir 200 MG Capsule 400 MG PO (10:09)
[2024-04-18 10:10] VITALS: BP 132/61; PULSE 100
[2024-04-18] MEDS: Metoprolol Tartrate 50 MG Tablet PO (10:10)
[2024-04-18] MEDS: amLODIPine 5 MG Tablet PO (10:10)
[2024-04-18] MEDS: Tamsulosin HCl 0.4 MG Capsule PO (10:10)
[2024-04-18] MEDS: Finasteride 5 MG Tablet PO (10:10)
[2024-04-18] MEDS: Ciprofloxacin 400 MG/200 ML BAG 200 MG IV (10:15)
[2024-04-18] MEDS: Heparin Injection (Vial) 5,000 UNIT/ML VIAL 5000 UNIT SC (10:15)
--- NOTE | 2024-04-18 12:01 | DCINST_ITS ---
Discharge Instructions Diet Discharge Diet: Low fat / Low cholesterol DC O2, CPAP, BIPAP needs Additional Home O2 Discharge instructions: No Dressing / Incision Discharge Activity: Return to Normal Activity Weight Bearing Status: Weight bearing as tolerated Dressing / Incision Call your doctor if you observe: Fever of 101 or Higher, Shortness of breath, Dizziness, Swelling in the ankles and Chest pain Follow Up Care Test Results: Test results from this visit will be discussed in further detail at your follow- up appointment, if applicable. Discharge Plan Admission Admit Date/Time: 04/16/24 15:07 Primary Reason for Your Visit: UTI Attending Provider: Nora Ward Primary Care Provider: Cody Carrington Consulting Providers: John Raza Instructions Patient Instructions: ED Urinary Tract Infections in Men Discharge Orders/Prescriptions Prescriptions: New nitrofurantoin macrocrystal 100 mg capsule 100 mg PO BID Qty: 14 0RF Rx Instructions: must administer with a meal/food Continued losartan 100 mg tablet 100 mg PO QHS atorvastatin 40 mg tablet 40 mg PO QHS levothyroxine [Synthroid] 112 mcg tablet 112 mcg PO DAILY finasteride 5 mg tablet 5 mg PO DAILY valacyclovir 500 MG tablet 500 mg PO DAILY hydroxyzine HCl 25 mg tablet 25 mg PO QHS tamsulosin 0.4 mg capsule 0.4 mg PO BID metoprolol tartrate 50 mg Tablet 50 mg PO BID Qty: 60 0RF amlodipine 10 mg tablet 5 mg PO DAILY Qty: 1 0RF ondansetron 8 mg tablet,disintegrating 8 mg PO Q8H PRN PRN (Reason: nausea/vomiting) Discontinued cefuroxime axetil 500 mg tablet 500 mg PO BID 7 Days Qty: 14 0RF Referrals / Follow Up: Cody Carrington MD [Primary Care Provider] - Within 1 Week Disposition Disposition (needs filled in before D/C Order can be placed): Home, Self Care
--- NOTE | 2024-04-18 12:02 | DS.PCM_ITS ---
Providers Date of Admission: 04/16/24 Date of Discharge: 04/18/24 Primary Care Physician: Dr. Cody Carrington MD Reason For Visit: UTI Diagnosis Discharge Diagnosis (1) Complicated UTI (urinary tract infection): Status: Acute Code(s): N39.0 - Urinary tract infection, site not specified Plan #UTI * complains of bilateral flank pain, though he had no CVA tenderness on examination. * on IV ceftriaxone * he did have ureteric stents inserted ~ 6 weeks ago. * will get a CT abdomen and pelvis without contrast as he keeps complaining of bilateral flank pain * PO tylenol, IV morphine and pO oxycodone prn for pain. * Urine culture from 04/23/2024 grew Enterococcus faecalis. Will switch antibiotics to IV ciprofloxacin based on sensitivities * blood cultures pending * * #History of prostate cancer * Had ureteric stents placed about 6 weeks ago as above. Follows with urology on outpatient basis * On finasteride and tamsulosin #Anemia: * Hemoglobin was 9.6 on admission. * It was 11.1 2 days ago. Hemoglobin today is 8.3. * There may be a component of hemodilution but will monitor closely and do further workup if it drops further. * #HERMES: * Creatinine was 1.822 days ago and was 1.88 yesterday. Is 1.75 today. * Baseline from June 2023 showed creatinine of 1 though in 2020 creatinine was 2.07. * It is therefore unclear if this does CKD or HERMES or HERMES on CKD. * Continue gentle hydration with IV fluids and trend creatinine. * #Thrombocytopenia: * Platelets around 132 forms 168 on admission yesterday. * This may be due to hemodilution as he received IV fluids. * #Paroxysmal A-fib: * Has not of his Eliquis for several weeks since the stents were inserted. He is follow-up with his PCP on outpatient basis to determine when he can resume his Eliquis. * On metoprolol * #Hypothyroidism: On Synthroid #Hypertension: Amlodipine and metoprolol as well as losartan # Hyperlipidemia: On statin DVT prophylaxis: Heparin Medications at Discharge Home Medications atorvastatin 40 mg tablet 40 mg PO QHS cholesterol 07/08/19 losartan 100 mg tablet 100 mg PO QHS bp 07/08/19 valacyclovir 500 mg tablet 500 mg PO DAILY herpes 07/03/20 hydroxyzine HCl 25 mg tablet 25 mg PO QHS anxiety 06/16/23 tamsulosin 0.4 mg capsule 0.4 mg PO BID prostate 06/16/23 amlodipine 10 mg tablet 5 mg (1/2 x 10 mg) PO DAILY blood pressure #1 TAB 06/17/23 metoprolol tartrate 50 mg tablet 50 mg PO BID #60 tabs 06/17/23 finasteride 5 mg tablet 5 mg PO DAILY 09/22/23 levothyroxine 112 mcg tablet (Synthroid) 112 mcg PO DAILY 09/22/23 ondansetron 8 mg disintegrating tablet 8 mg PO Q8H PRN PRN nausea/vomiting 04/15/24 nitrofurantoin macrocrystal 100 mg capsule 100 mg PO BID #14 caps 04/18/24 Hospital Course Operations None Procedures None Summary of Care Provided Minutes Spent on Discharge: 55 Hospital Course: Patient is an 83-year-old male with past medical history as outlined was admitted to the ED on 04/16/2024 with complaint of generalized weakness which had been going on for about a day prior to admission. Of note he had been diagnosed with UTI in the ED on outpatient basis the day before admission. He had a history of prostate cancer and had bilateral ureteral stents placed about 6 weeks ago at [facility]. In the ED, he was found to have WBC of 12.2 and creatinine was 1.88. He was requiring 2 L of oxygen at that time. Urinalysis showed elevated WBC and rare bacteria. Chest x-ray showed no acute cardiopulmonary process. Was admitted and managed for UTI with failed outpatient therapy. Was initially started on IV ceftriaxone. Urine cultures came back growing Enterococcus faecalis so he was switched to IV ciprofloxacin based on sensitivities. 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 Patient felt better and his blood cultures after 48 hours were negative. Patient was therefore discharged home on 04/18/2024 and a 5-day course of oral nitrofurantoin based on the sensitivity results. He is to follow-up with his primary care doctor with his urologist within 1 to 2 weeks. Patient seen and examined prior to discharge. He had no active complaints and had an uneventful night. Review of systems otherwise negative. Labs and vitals reviewed. Home medication reviewed and reconciled. Physical Exam Const alert, oriented x3, no apparent distress and well nourished General Appearance: cooperative, comfortable, well kempt and well developed Orientation / Consciousness: awake, oriented to person, oriented to place and oriented to time Exam Limitations: no limitations HEENT normocephalic, head/scalp atraumatic, hearing grossly normal bilaterally, moist oral mucous membranes and oropharynx normal Mouth: oral and palatal mucosa normal Eyes PERRL, EOMs intact bilaterally and conjunctivae normal Neck no lymphadenopathy, supple, no JVD, thyroid normal and no carotid bruits General: trachea midline Lymph Lymphatic: no lymphadenopathy noted and no lymphedema noted Resp normal respiratory effort, normal air movement, no retractions, no use of accessory muscles and clear to auscultation bilaterally Cardio regular rate, regular rhythm, S1 normal heart sound, S2 normal heart sound, no murmurs, no rub and no gallops GI normal to inspection, nondistended, normoactive bowel sounds, soft to palpation, non-tender and non-distended GI Narrative: no CVA tenderness Extremity normal to inspection, full ROM, normal capillary refill, no clubbing, cyanosis or edema and no calf tenderness General Extremity: no tenderness to palpation of joints or extremities Skin no rashes or lesions noted General Skin Exam: no breakdown Neuro oriented x3, CN's II-XII intact bilaterally, moves all extremities, no focal motor deficits and no sensory deficits noted Sensorium / Orientation: awake and alert Speech: speech normal Motor Exam: general weakness Psych thought process normal, cooperative and affect normal Appearance: appropriate Weight / BMI Weight Weight: 193 lb 5.526 oz Body Mass Index (BMI) 31.1 ABG / Lab / Microbiology Data 04/18/24 06:10 04/18/24 06:10 Laboratory: Laboratory Results - last 24 hr 04/18/24 06:10: WBC 12.5 H, RBC 2.60 L, Hgb 8.4 L, Hct 25.3 L, MCV 97.3 H, MCH 32.3 H, MCHC 33.2, RDW Std Deviation 53.1 H, RDW Coeff of Briana 14.8 H, Plt Count 123 L, MPV 9.2, Immature Gran % (Auto) 0.600, Neut % (Auto) 86.7 H, Lymph % (Auto) 5.3 L, Maries % (Auto) 7.3, Eos % (Auto) 0.0, Baso % (Auto) 0.1, Absolute Neuts (auto) 10.8 H, Absolute Lymphs (auto) 0.66 L, Nucleated RBC % 0, Sodium 134 L, Potassium 3.5, Chloride 106, Carbon Dioxide 22.0, Anion Gap 6, BUN 27 H, Creatinine 1.78 H, Estim Creat Clear Calc 33.77, Est GFR (MDRD) Af Amer 47 L, E st GFR (MDRD) Non-Af 39 L, BUN/Creatinine Ratio 15.2, Glucose 135 H, Calcium 8.2 L Microbiology: Microbiology 04/16/24 13:29 Blood Culture (Wb) - Venous Blood Culture - Preliminary No growth in 48 hours. 04/16/24 13:29 Blood Culture (Wb) - Venous Blood Culture - Preliminary No growth in 48 hours. Radiography Diagnostic Testing: Radiology Impression Abdomen/Pelvis CT 04/17/24 11:08 IMPRESSION: Bilateral ureteral stents in place with mild bilateral hydronephrosis. Negative examination for renal stone. Bilateral perinephric, periureteral, and bladder wall edema, which may be related to posttreatment inflammation or infection. 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 Sclerotic lesion in the L2 vertebral body, suspicious for osteoblastic metastasis. Recommend bone scan correlation. Trace pleural effusions and ascites. Electronically Signed: Jaky Hou MD at 12:46 EST , D/C Instructions Discharge Diet: Low fat / Low cholesterol Discharge Activity: Return to Normal Activity Weight Bearing Status: Weight bearing as tolerated Call your doctor if you observe: Fever of 101 or Higher, Shortness of breath, Dizziness, Swelling in the ankles and Chest pain DC O2, CPAP, BIPAP Needs Additional Home O2 Discharge instructions: No DC home with Oxygen: No Meaningful Use Info Meaningful Use Meaningful Use Diagnoses (Choose all that apply): None applicable Ischemic Stroke Statin Dosing Therapy Reference: STATIN DOSE THERAPY REFERENCE: * Patients > 75 years receive moderate or high dose statin therapy. * Patients 75 years or YOUNGER should receive HIGH intensity statin dose unless contraindicated. You will be required to document reason for non-treatment if statin daily dose does not meet guidelines. HIGH DOSE STATIN THERAPY DAILY Atorvastatin > than or = to 40 mg Rosuvastatin > than or = to 20 mg Amlodipine + Atorvastatin > than or = to 2.5/40 mg Ezetimibe + Simvastatin 10/80 mg Simvastatin 80mg Discharge Plan Admission Admit Date/Time: 04/16/24 15:07 Primary Reason for Your Visit: UTI Attending Provider: Nora Ward Primary Care Provider: Cody Carrington Consulting Providers: John Raza Instructions Patient Instructions: ED Urinary Tract Infections in Men Discharge Orders/Prescriptions Prescriptions: New nitrofurantoin macrocrystal 100 mg capsule 100 mg PO BID Qty: 14 0RF Rx Instructions: must administer with a meal/food Continued losartan 100 mg tablet 100 mg PO QHS atorvastatin 40 mg tablet 40 mg PO QHS levothyroxine [Synthroid] 112 mcg tablet 112 mcg PO DAILY finasteride 5 mg tablet 5 mg PO DAILY valacyclovir 500 MG tablet 500 mg PO DAILY hydroxyzine HCl 25 mg tablet 25 mg PO QHS tamsulosin 0.4 mg capsule 0.4 mg PO BID metoprolol tartrate 50 mg Tablet 50 mg PO BID Qty: 60 0RF amlodipine 10 mg tablet 5 mg PO DAILY Qty: 1 0RF ondansetron 8 mg tablet,disintegrating 8 mg PO Q8H PRN PRN (Reason: nausea/vomiting) Discontinued cefuroxime axetil 500 mg tablet 500 mg PO BID 7 Days Qty: 14 0RF Referrals / Follow Up: Cody Carrington MD [Primary Care Provider] - Within 1 Week Disposition Disposition (needs filled in before D/C Order can be placed): Home, Self Care Charges/Coding Visit Charges Inpatient E&M: 06871 Disch Hosp >30min
[2024-04-18 12:50] VITALS: BP 106/53; PULSE 74; RESP 18; TEMP 36.6; O2SAT 95
== END 2024-04-18 13:32 | disposition home or self-care (01) | DRG 699 ==
LOC: ED 13:29 → MS3 14:40
PROVIDERS: Admitting Provider Internal Medicine; Emergency Provider Emergency Medicine; PCP Internal Medicine; Visit Provider Student in an Organized Health Care Education/Training Program
DX: N99.89 Other postprocedural complications and disorders of genitourinary system (principal); N13.6 Pyonephrosis; C77.2 Secondary and unspecified malignant neoplasm of intra-abdominal lymph nodes; C77.5 Secondary and unspecified malignant neoplasm of intrapelvic lymph nodes; C79.51 Secondary malignant neoplasm of bone; N30.00 Acute cystitis without hematuria; D69.6 Thrombocytopenia, unspecified; I48.0 Paroxysmal atrial fibrillation; E86.0 Dehydration; B95.2 Enterococcus as the cause of diseases classified elsewhere; D64.9 Anemia, unspecified; E03.9 Hypothyroidism, unspecified; I12.9 Hypertensive chronic kidney disease with stage 1 through stage 4 chronic kidney disease, or unspecified chronic kidney disease; N18.9 Chronic kidney disease, unspecified; C61 Malignant neoplasm of prostate; R19.7 Diarrhea, unspecified; E78.5 Hyperlipidemia, unspecified; R11.2 Nausea with vomiting, unspecified; R09.02 Hypoxemia; R53.81 Other malaise; Y83.8 Other surgical procedures as the cause of abnormal reaction of the patient, or of later complication, without mention of misadventure at the time of the procedure; N40.0 Benign prostatic hyperplasia without lower urinary tract symptoms; Z79.890 Hormone replacement therapy; Z79.899 Other long term (current) drug therapy; Z87.891 Personal history of nicotine dependence
CPT/HCPCS: 36415; 71046; 74018; 74176; 80048; 83605; 85025; 87040; 97162; 97165; 99285; A4216; J0744; J2405

== ENCOUNTER → 2025-04-20 | Outpatient (CLI) | payer MEDICARE, BC, SELFPAY ==
[2025-04-20 17:22] LABS: Hematocrit 39.3 % (40-54); Hemoglobin 13.4 g/dL (13.0-16.5); Immature Granulocytes Count 0.020 X10^3/uL (0.0-0.0); Mean Corp Hgb Conc 34.1 g/dL (32-36); Mean Corpuscular Volume 103.4 fL (80-94); Mean Platelet Vol. 9.5 fl (6.2-12.0); NRBC Flagged by Analyzer 0 % (0-5); Platelet Count 184 K/mm3 (150-450); RBC Distribution Width CV 12.9 % (11.6-14.6); RBC Distribution Width SD 48.0 fl (35.1-43.9); Red Blood Count 3.80 M/mm3 (4.6-6.2); White Blood Count 4.6 K/mm3 (4.4-11.0)
[2025-04-20 18:17] LABS: AST(SGOT) 15 U/L (<=37); Alanine Aminotransfer ALT/SGPT 8 U/L (<=46); Albumin, Serum 4.2 g/dL (3.4-4.8); Alkaline Phosphatase 59 U/L (40-129); Anion Gap 13 (5-15); BUN 31 mg/dL (4-19); BUN/Creat Ratio 22.5 RATIO (10-20); Calcium,Total 9.9 mg/dL (7.6-11.0); Carbon Dioxide 22.4 mmol/L (21.0-32.0); Chloride 101 mmol/L (98-108); Free T3 2.5 pg/mL (2.18-3.98); Globulin 3.1 g/dL (2.2-4.2); Glucose 93 mg/dL (70-99); Potassium 4.4 mmol/L (3.3-5.1)
[2025-04-20 18:41] LABS: Cholesterol 187 mg/dL (<=200); Low Density Lipoprotein Calc. 112 mg/dL; Triglycerides 163 mg/dL; Very Low Density Lipoprotein 33 mg/dL (5-40); cholesterol:hdl ratio screen 4.00
== END | disposition home or self-care (01) ==
LOC: MFPLAB 15:06
PROVIDERS: PCP Internal Medicine; Visit Provider Family Medicine
DX: Z00.00 Encounter for general adult medical examination without abnormal findings (principal); E03.9 Hypothyroidism, unspecified
CPT/HCPCS: 36415; 80053; 80061; 84439; 84443; 84481; 85025

== ENCOUNTER 2025-04-23 10:15 | Outpatient (RCR) | payer MEDICARE, BC, SELFPAY ==
[2025-04-23 11:25] LABS: Prothrombin Time (Protime)PT. 14.2 SECONDS (11.7-14.9)
== END 2025-04-23 18:00 | disposition home or self-care (01) ==
LOC: LAB 10:15
PROVIDERS: PCP Internal Medicine; Referring Provider Student in an Organized Health Care Education/Training Program; Visit Provider Student in an Organized Health Care Education/Training Program
DX: Z79.01 Long term (current) use of anticoagulants (principal)
CPT/HCPCS: 36415; 85610

== ENCOUNTER 2025-04-28 21:36 | Inpatient (IN) | payer MEDICARE, BC, SELFPAY ==
[2025-04-28 21:38] VITALS: BP 189/78; PULSE 61; RESP 14; TEMP 37.2; O2SAT 95
[2025-04-28 21:41] VITALS: BP 189/78; PULSE 59; RESP 19; TEMP 37.2; O2SAT 97
--- NOTE | 2025-04-28 22:14 | RAD_ITS ---
PROCEDURE: CHEST 1 VIEW (PORTABLE) 04/28/2025 REASON FOR EXAM: WEAKNESS TECHNIQUE: Frontal view of the chest. COMPARISON: Chest radiograph 04/16/2024 FINDINGS: No focal lung consolidation, pneumothorax, or pleural effusion. Stable cardiomediastinal silhouette. The jonn are within normal limits. Degenerative changes of the thoracic spine. RAD/Chest 1 View (Portable) IMPRESSION: No radiographic evidence of acute cardiopulmonary pathology. Reading Location: [id number]
--- NOTE | 2025-04-28 22:24 | EX.ED.DYSGE1 ---
HPI History of Present Illness Chief Complaint: Weakness Detail of Chief Complaint: Generalized weakness unable to ambulate. Informant: patient and family (Daughter at bedside) Onset/Context/Timing Onset: Today Context: Gradual Onset Timing: Continuous Current Severity: Moderate Maximum Severity: Moderate Narrative Narrative: 84-year-old male history of prostate cancer taking daily oral chemotherapy. Also history of A-fib on Coumadin. Lives at home with COVID. He says he just felt very weak today. He has had a nonproductive cough. Denies any fever. No vomiting or diarrhea. No chills. No dysuria. Said he tried to get up out of bed and had a lot of trouble walking he was so weak. 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 Prostate CA Erectile dysfunction Elevated PSA Atrial fibrillation CKD (chronic kidney disease) Obesity (BMI 30.0-34.9) Anxiety Hypothyroidism Hyperlipidemia BPH (benign prostatic hyperplasia) Hyperglycemia Hypertension Home Medications ?Medication ?Instructions ?Recorded ?Last Taken ?Type atorvastatin 40 mg tablet 40 mg PO QHS cholesterol 07/08/19 06/14/23 History losartan 100 mg tablet 100 mg PO QHS bp 07/08/19 06/15/23 History valacyclovir 500 mg tablet 500 mg PO DAILY herpes 07/03/20 06/15/23 History hydroxyzine HCl 25 mg tablet 25 mg PO QHS anxiety 06/16/23 06/15/23 History tamsulosin 0.4 mg capsule 0.4 mg PO BID prostate 06/16/23 06/14/23 History amlodipine 10 mg tablet 5 mg (1/2 x 10 mg) PO DAILY blood 06/17/23 06/15/23 Rx pressure #1 TAB finasteride 5 mg tablet 5 mg PO DAILY 09/22/23 Unknown History levothyroxine 112 mcg tablet 112 mcg PO DAILY 09/22/23 Unknown History (Synthroid) ondansetron 8 mg disintegrating 8 mg PO Q8H PRN PRN nausea/vomiting 04/15/24 Unknown History tablet enzalutamide 80 mg tablet (Xtandi) 80 mg PO QDAY 11/22/24 Unknown History warfarin 4 mg tablet 4 mg PO DAILY #30 tabs 04/12/25 Unknown Rx hydralazine 10 mg tablet 10 mg PO BID #60 tabs 04/18/25 Unknown Rx Allergy/AdvReac Type Severity Reaction Status Date / Time No Known Allergies Allergy Verified 04/28/25 21:45 Family History Other Hyperlipidemia Hypertension Thyroid disorder Surgical History History of stent insertion of renal artery History of shoulder surgery Social History household members: spouse housing: house Smoking Status: Former smoker alcohol intake: never substance use type: does not use ROS ROS ED ROS Narrative Nonproductive cough. Generalized weakness. Constitutional Constitutional ED: Denies chills or fever(s) Eyes Eyes: Denies blurry vision ENT ENT ED: Denies ear pain Cardiovascular Cardiovascular: Denies chest pain Respiratory/Chest Respiratory/Chest: Reports cough; Denies dyspnea Gastrointestinal Gastrointestinal: Denies abdominal pain, constipation, melena or nausea Genitourinary Genitourinary ED: Denies dysuria or hematuria Musculoskeletal Musculoskeletal: Denies arthralgias or back pain Integumentary Denies abscess Neurologic Neurologic: Denies headache(s) Psychiatric Psychiatric: Denies anxiety or depression Endocrine Endocrinology: Denies cold intolerance Hematologic/Lymphatic Hematologic/Lymphatic: Reports as per HPI and none Allergic/Immunologic Allergic/Immunologic ED: Denies mouth swelling, tongue swelling or urticaria EXAM Physical Exam Narrative Exam Narrative: 84-year-old male sitting upright in bed. Family at bedside. Vital signs are stable afebrile he does not look septic or toxic he is in no acute distress. H EENT exam pupils round reactive light. Mildly dry mucous membranes. No facial droop no trauma. Nontender. Neck nontender no lymphadenopathy. Back nontender. Neurologically he is awake. He is alert. He is answering questions. He is following commands. Lungs clear to auscultation bilaterally. Heart regular rhythm rate about 60 no murmur. Chest wall ribs nontender. Abdomen is soft nontender. Extremities are nontender without edema. Moving all 4 extremities. Normal refrigerator mover strength. Normal dorsi plantarflexion. Const Vital Signs: 04/28/25 21:38 04/28/25 21:41 04/28/25 21:42 Temperature 99 F 99 F Temperature Source Oral Oral Pulse Rate 61 59 L Respiratory Rate 14 19 H Respiratory Effort Normal Non-Labored Respiratory Pattern Normal Blood Pressure 189/78 H 189/78 H Blood Pressure Mean 115 115 Pulse Ox 95 97 Oxygen Delivery Method Room Air Room Air MDM MDM MDM Narrative Medical decision making narrative: 84-year-old male generalized weakness at home with COVID he may or may not have COVID. He has had a history of a UTI before. He has a history of prostate cancer. He is on a blood thinner due to A-fib but currently does not appear to be in A-fib. Differential would include COVID, UTI, dehydration, electrolyte abnormalities, anemia versus other etiologies. Screening labs, EKG and chest x-ray to be obtained. Offered COVID and flu swab done. Repeat exam patient is resting comfortably in bed around 11:30 PM. He is COVID-positive. Is weak and unable to ambulate. He will be admitted. I have the hospitalist on page. I discussed all test results with the patient. History & Record Review Discussion w/independent historian: Patient and Family Additional record(s) reviewed:: Prior inpatient record, Prior outpatient record, Prior ED visit and Prior labs Lab Data Attestation: I reviewed the patient's lab results. Lab results narrative: CBC shows a white count of 7.0. H&H of 13 and 38. Platelets 185. Chest x-ray unremarkable. UA is negative. No nitrates. No white or red cells. No bacteria. COVID-positive. PT/INR are 17 and 1.4. Chemistries show sodium of 132. Gap 15. BUN 21 creatinine 1.4 consistent with chronic renal insufficiency. Glucose 132. Labs: Laboratory Results - last 24 hr 04/28/25 04/28/25 04/28/25 21:19 22:10 22:40 WBC 7.0 RBC 3.85 L Hgb 13.6 Hct 38.6 L MCV 100.3 H MCH 35.3 H MCHC 35.2 RDW Std Deviation 46.9 H RDW Coeff of Briana 12.7 Plt Count 185 MPV 10.8 Immature Gran % (Auto) 0.300 Neut % (Auto) 71.9 H Lymph % (Auto) 12.5 L Jackson % (Auto) 14.4 H Eos % (Auto) 0.3 Baso % (Auto) 0.6 Absolute Neuts (auto) 5.0 Absolute Lymphs (auto) 0.87 Nucleated RBC % 0 PT Cancelled 17.5 H INR Cancelled 1.4 Sodium 132 L Potassium 4.4 Chloride 96 Carbon Dioxide 21.0 Anion Gap 15 BUN 21 H Creatinine 1.40 H Est GFR (MDRD) Non-Af 50 L BUN/Creatinine Ratio 15.0 Glucose 132 H Calcium 9.9 Urine Color Yellow Urine Clarity Clear Urine pH 7.0 Ur Specific [place] 1.010 Urine Protein 100 H Urine Glucose (UA) Normal Urine Ketones Negative Urine Occult Blood 25 H Urine Nitrite Negative Urine Bilirubin Negative Urine Urobilinogen Normal Ur Leukocyte Esterase Negative Urine RBC 0 SEEN Urine WBC 0 SEEN Ur Squamous Epith Cells 0 SEEN Urine Bacteria 0 SEEN Urine Mucus 0 SEEN Radiography Chest X-Ray - ED: 1 View, Read by ED Physician, Normal, Heart, Lungs, Mediastinum, Bony Structures, No Acute Disease and Chronic Changes Diagnostic Testing: Clinical Impression(s) from Imaging Studies Chest X-Ray 04/28/25 22:14 IMPRESSION: No radiographic evidence of acute cardiopulmonary pathology. Reading Location: [facility] Chest x-ray, portable, single view, interpreted by myself shows normal cardiac silhouette. Normal mediastinum. Normal lung winn. No pneumonia. No effusions. No pulmonary edema. Rhythm Strip Rhythm Strip: Sinus bradycardia Rate: 58 Ectopy: None EKG Initial EKG: Attestation: I personally reviewed and interpreted this EKG as follows: Interpretation: Sinus Rhythm, No Acute Injury Pattern and Sinus Bradycardia Comments: Sinus bradycardia rate of 58 no acute signs of NM nor ischemia. No dysrhythmia. Discharge Plan Dx/Rx/DC Orders Clinical Impression: Generalized weakness, Unable to ambulate, History of atrial fibrillation, Chronic anticoagulation, History of prostate cancer, COVID Disposition Disposition: Acute Care Hospital [facility]
--- OUTSIDE RECORDS SUMMARY | 2025-04-28 22:29 | XMS RPT_ITS | CCD ---
Author Organization [facility] Care Team Providers Care Title I Coordinator Name Role Phone Cody Carrington MD Primary Care Provider Dr. Cody Carrington Primary Care Provider Dr. Zoë Sparks Emergency Provider Dr. Lor Aguilar Admit Provider Dr. Lor Aguilar Attending Provider Dr. Lor Aguilar Other Provider Dr. Mitra Ardon Attending Provider Cody Carrington MD Primary Care Provider Cody Carrington MD Primary Care Provider Sruthi Larkin Unavailable SRUTHI LARKIN Referring Unavail able CHRIS BARRERA Attending Unavailable CODY CARRINGTON Primary Care Unavailable Leland BENJAMIN, Johan Unavailable Christopher DISTRIBUTION SPEC.SOLVENT STATION ATTENDANT, Leela M Unavailable Dr. Cody Carrington MD Primary Care Provider Dr. Cody Carrington MD Referring Provider Dr. Sruthi Larkin MD Attending Provider Nora Ward Attending Unavailable Valentina Raza Consulting Unavailable Cody Carrington Primary Care Unavailable Valentina Raza Admitting Unavailable Nora Ward Consulting Unavailable Valentina Raza Attending Unavailable Fernando Hollins Attending Unavailable Cody Carrington Primary Care Unavailable Nora Ward Attending Unavailable Valentina Raza Admitting Unavailable Carrington, Cody Primary Care Unavailable Valentina Raza Consulting Unavailable Carrington, Cody Primary Care Unavailable Carrington, Cody Referring Unavailable Sruthi Larkin Attending Unavailable Ana NIELSON, Jarek Blanc Attending Unavailable Carrington, Cody Referring Unavailable Carrington, Cody Primary Care Unavailable CARRINGTON, ELENI Primary Care Unavailable ABRAMOVICH, JOHAN Referring Unavailable CARRINGTON, ELENI Primary Care Unavailable ABRAMOVICH, JOHAN Referring Unavailable CARRINGTON, ELENI Primary Care Unavailable ABRAMOVICH, JOHAN Referring Unavailable ABRAMOVICH, JOHAN Referring Unavailable CARRINGTON, ELENI Primary Care Unavailable ABRAMOVICH, JOHAN Attending Unavailable ABRAMOVICH, JOHAN Referring Unavailable CARRINGTON, ELENI Primary Care Unavailable CARRINGTON, CODY Blanc Attending Unavailable CARRINGTON, ELENI Primary Care Unavailable CARRINGTON, ELENI Primary Care Unavailable ABRAMOVICH, JOHAN Referring Unavailable CARRINGTON, ELENI Primary Care Unavailable ABRAMOVICH, JOHAN Referring Unavailable CARRINGTON, ELENI Primary Care Unavailable ABRAMOVICH, JOHAN Attending Unavailable CARRINGTON, ELENI Primary Care Unavailable ABRAMOVICH, JOHAN Referring Unavailable CARRINGTON, ELENI Primary Care Unavailable RADHA LARSEN Referring Unavailable CARRINGTON, CODY Blanc Attending Unavailable CARRINGTON, ELENI Primary Care Unavailable LEELA DRAKE Attending Unavailable CARRINGTON, ELENI Primary Care Unavailable CARRINGTON, ELENI Primary Care Unavailable RADHA LARSEN Referring Unavailable CARRINGTON, ELENI Primary Care Unavailable ABRAMOVICH, JOHAN Attending Unavailable ABRAMOVICHJOHAN Referring Unavailable CARRINGTON, ELENI Primary Care Unavailable CHRISTIANO, RODOLFO Referring Unavailable CARRINGTON, CODY Blanc Primary Care Unavailable CHRISTIANO, DALORRAINE Referring Unavailable CARRINGTON, CODY Blanc Primary Care Unavailable CHRISTIANO, DALORRAINE Referring Unavailable CARRINGTON, ELENI Primary Care Unavailable CHRISTIANO, RODOLFO Attending Unavailable CARRINGTON, CODY Blanc Primary Care Unavailable CHRISTIANO, DALORRAINE Referring Unavailable CARRINGTON, CODY Blanc Primary Care Unavailable CHRISTIANO, DALORRAINE Referring Unavailable CARRINGTON, CODY Blanc Attending Unavailable CARRINGTON, CODY Blanc Referring Unavailable CARRINGTON, ELENI Primary Care Unavailable CARRINGTON, ELENI Primary Care Unavailable JOHAN PAYNE Referring Unavailable CARRINGTON, ELENI Primary Care Unavailable RODOLFO AGUILAR Attending Unavailable CARRINGTON, ELENI Primary Care Unavailable ABRJOHAN PELLETIER Referring Unavailable CARRINGTON, ELENI Primary Care Unavailable CHRISTIANO, DABROOKUNG Referring Unavailable CARRINGTON, ELENI Primary Care Unavailable CHRISTIANO, DABROOKUNG Referring Unavailable CARRINGTON, ELENI Primary Care Unavailable CHRISTIANO, DALORRAINE Referring Unavailable CARRINGTON, ELENI Primary Care Unavailable CHRISTIANO, DALORRAINE Attending Unavailable CARRINGTON, ELENI Primary Care Unavailable CHRISTIANO, DABROOKUNG Referring Unavailable CHRISTIANO, RODOLFO Attending Unavailable CARRINGTON, ELENI Primary Care Unavailable CARRINGTON, ELENI Primary Care Unavailable PINA SCHUSTER Attending Unavailable JOHAN PAYNE Referring Unavailable CARRINGTON, ELENI Referring Unavailable CARRINGTON, ELENI Primary Care Unavailable PINA SCHUSTER Attending Unavailable CARRINGTON, ELENI Primary Care Unavailable CARRINGTON, ELENI Primary Care Unavailable JOHAN PAYNE Referring Unavailable CARRINGTON, ELENI Primary Care Unavailable CARRINGTON, ELENI Primary Care Unavailable CHRISTIANO, RODOLFO Referring Unavailable PINA SCHUSTER Attending Unavailable CARRINGTON, ELENI Primary Care Unavailable ABRAMJOHAN SINHA Referring Unavailable CARRINGTON, ELENI Primary Care Unavailable ABRAMJOHAN SINHA Referring Unavailable CARRINGTON, CODY Blanc Primary Care Unavailable RADHA LARSEN Referring Unavailable CARRINGTON, CODY Blanc Primary Care Unavailable CHRISTIANO, RODOLFO Referring Unavailable RODOLFO AGUILAR Attending Unavailable CARRINGTON, ELENI Primary Care Unavailable RODOLFO AGUILAR Attending Unavailable JOHAN PAYNE Referring Unavailable CARRINGTON, ELENI Primary Care Unavailable ISIDRO FERRARI Attending Unavailable DEVIN CORTES Attending Unavailabl e CARRINGTON, ELENI Primary Care Unavailable RADHA LARSEN Admitting Unavailable RADHA LARSEN Attending Unavailable CARRINGTON, ELENI Primary Care Unavailable CARRINGTON, ELENI Primary Care Unavailable CARRINGTON, ELENI Primary Care Unavailable RADHA LARSEN Attending Unavailable CARRINGTON, ELENI Primary Care Unavailable RADHA LARSEN Referring Unavailable CARRINGTON, ELENI Primary Care Unavailable RADHA LARSEN Attending Unavailable CODY CARRINGTON Primary Care Unavailable RADHA LARSEN Referring Unavailable CODY CARRINGTON Primary Care Unavailable RADHA LARSEN Attending Unavailable CODY CARRINGTON Primary Care Unavailable RADHA LARSEN Attending Unavailable CODY CARRINGTON Primary Care Unavailable RADHA LARSEN Attending Unavailable CODY CARRINGTON Primary Care Unavailable Allergies Allergy Classification Reported Allergen(s) Allergy Type Date of Onset Reaction(s) Facility (20 sources) Latex; Translations: [LATEX] Drug Allergy 03-15-[address] [facility] Medications Current Medications Medication Drug Class(es) Dates Sig (Normalized) Sig (Original) amLODIPine 5 mg oral tablet (20 sources) Dihydropyridine Calcium Channel Mague Start: 06-23-2023 End: 09-07-2024 take 1 tablet by mouth once daily amLODIPine (NORVASC) 5 mg tablet Take 1 tablet by mouth once daily. 60 tablet 5 09/08/2024 Active Start: 06-17-2023 take 5 mg by mouth once daily Amlodipine 10 mg tablet Active 5 mg PO DAILY 1 June 17, 2023 3:23pm blood pressure Start: 06-17-2023 take 5 mg by mouth once daily Amlodipine Active 5 MG PO DAILY June 17, 2023 2:23pm Start: 08-16-2022 End: 06-23-2023 take 1 tablet by mouth once daily Amlodipine 10 mg tablet Discontinued 10 mg PO DAILY June 16, 2023 1:00am June 17, 2023 3:23pm blood pressure Start: 07-04-2022 End: 08-16-2022 take 1 tablet by mouth once daily amLODIPine (NORVASC) 5 mg tablet Indications: Hypertension, unspecified type Take 1 tablet by mouth once daily. 90 tablet 0 07/04/2022 08/16/2022 Discontinued Comment on above: Take 1 tablet by felipa th once daily. apixaban 2.5 mg oral tablet (20 sources) Factor Xa Inhibitor Start: 11-22-2024 take 1 tablet by mouth twice daily Apixaban 2.5 mg tablet Active 2.5 mg PO TWICE A DAY 180 3 November 22, 2024 2:09pm Start: 06-17-2023 End: 06-23-2023 take 1 tablet by mouth once daily apixaban (ELIQUIS) 5 mg tab(s) Take 5 mg by mouth once daily. 0 06/17/2023 06/23/2023 Discontinued Start: 06-17-2023 End: 11-22-2024 take 1 tablet by mouth twice daily apixaban (ELIQUIS) 5 mg tab(s) Indications: New onset atrial fibrillation (HCC) Take 1 tablet by mouth two times a day. 120 tablet 5 07/13/2024 Active Comment on above: Take 1 tablet by felipa th two times a day. Take 5 mg by mouth o nce daily. atorvastatin 40 mg oral tablet (20 sources) HMG-CoA Reductase Inhibitor Start: End: take 1 tablet by mouth once daily at bedtime atorvastatin (LIPITOR) 40 mg tablet Indications: Hyperlipidemia, unspecified hyperlipidemia type Take 1 tablet by mouth daily at bedtime. 90 tablet 3 10/27/2024 Active Comment on above: Take 1 tablet by felipa th daily at bedtime. barium sulfate (READI-CAT 2) 2 % (w/v) oral liquid (1 source) Start: End: barium sulfate (READI-CAT 2) 2 % (w/v) oral liquid Use as directed for VC Contrast Bowel Prep. 450 mL 0 11/25/2023 11/26/2023 Active bicalutamide 50 mg oral tablet (20 sources) Androgen Receptor Inhibitor Start: End: take 1 tablet by mouth once daily bicalutamide (CASODEX) 50 mg tablet Take 1 tablet by mouth once daily. Take for 10 days starting when you get lupron injection 10 tablet 02/13/2024 07/09/2024 Discontinued (Course of therapy completed) bisacodyl 5 mg delayed release oral tablet (1 source) Stimulant Laxative Start: End: bisacodyl EC (DULCOLAX) 5 mg EC tablet Use as directed for VC Contrast Bowel Prep. 4 tablet 0 11/25/2023 11/26/2023 Active cephalexin 500 mg oral capsule (1 source) Cephalosporin Antibacterial Start: End: take 1 capsule by mouth three times daily cephALEXin (KEFLEX) 500 mg capsule Indications: Prostate cancer (HCC) , Bilateral hydronephrosis Take 1 capsule by mouth three times a day for 3 days. 9 capsule 07/15/2024 07/18/2024 Active cyclobenzaprine hydrochloride 10 mg oral tablet (20 sources) Muscle Relaxant Start: End: take 1 tablet by mouth twice daily as needed for muscle spasms cyclobenzaprine (FLEXERIL) 10 mg tablet Indications: Muscle spasm of back Take 1 tablet by mouth two times a day as needed for muscle spasm. 20 tablet 2 10/27/2024 Active Comment on above: Take 1 tablet by felipa th twice daily as needed for muscle spasm. diatrizoate meglumine & sodium (GASTROGRAFIN) 66-10 % solution (1 source) Start: End: diatrizoate meglumine & sodium (GASTROGRAFIN) 66-10 % solution Use as directed for VC Contrast Bowel Prep. 30 mL 0 11/25/2023 11/26/2023 Active enzalutamide 80 mg oral tablet (20 sources) Androgen Receptor Inhibitor Start: take 1 tablet by mouth once daily Enzalutamide (Xtandi) 80 mg tablet Active 80 mg PO daily November 22, 2024 12:00am Start: 07-09-2024 End: 07-27-2024 take 2 tablets by mouth once daily enzalutamide (XTANDI) 80 mg tablet Take 2 tablets (160 mg) by mouth once daily. 60 tablet 11 07/27/2024 Active finasteride 5 mg oral tablet (20 sources) 5-alpha Reductase Inhibitor Start: 02-04-2023 End: 12-09-2023 take 1 tablet by mouth once daily Finasteride 5 mg tablet Active 5 mg PO DAILY September 22, 2023 12:00am Comment on above: Take 1 tablet by felipa th once daily. fluticasone propionate 0.05 mg/actuat metered dose nasal spray (7 sources) Corticosteroid Start: 10-27-2024 take 1 spray(s) nasal route once daily at bedtime fluticasone (FLONASE) 50 mcg/actuation nasal spray Indications: Postnasal drip Use 1 spray in each nostril daily at bedtime. 18.2 mL 2 10/27/2024 Active hydroCHLOROthiazide 25 mg / triamterene 37.5 mg oral tablet (10 sources) Potassium-sparing Diuretic, Thiazide Diuretic Start: 2019 End: 06-16-2023 take 1 tablet by mouth once daily triamterene-hydr oCHLOROthiazide (MAXZIDE-25) 37.5-25 mg per tablet Indications: Primary hypertension Take 1 tablet by mouth once daily. 90 tablet 3 12/27/2021 07/04/2022 Discontinued (Discontinued by Patient) Start: 2019 End: 06-16-2023 take 1 tablet by mouth once daily Triamterene-Hydrochlorothiazid Discontin ued 1 tab PO DAILY 2019 12:00am June 16, 2023 4:54pm Comment on above: Take 1 tablet by felipa th once daily. hydrOXYzine hydrochloride 25 mg oral tablet (20 sources) Antihistamine Start: 06-20-19 End: 10-28-19 take 1 tablet by mouth once daily at bedtime hydrOXYzine HCl (ATARAX) 25 mg tablet Indications: Herpes infection Take 1 tablet by mouth daily at bedtime. 90 tablet 3 10/27/2024 Active Comment on above: Take 1 tablet by felipa th daily at bedtime. levothyroxine sodium 0.125 mg oral tablet (20 sources) l-Thyroxine Start: 11-19-19 take 1 tablet by mouth once daily levothyroxine (SYNTHROID) 125 mcg tablet Take 1 tablet by mouth once daily. 90 tablet 1 11/18/2024 Active Start: 01-03-2023 End: 11-18-2024 take 1 tablet by mouth once daily Levothyroxine (Synthroid) 112 mcg tablet Active 112 ug PO DAILY September 22, 2023 12:00am Start: 07-09-2021 End: 01-03-2023 take 1 tablet by mouth once daily levothyroxine (SYNTHROID) 100 mcg tablet Indications: Acquired hypothyroidism Take 1 tablet by mouth once daily. Take on empty stomach 90 tablet 3 12/27/2021 01/03/2023 Discontinued (Dosage adjustment) Start: 2019 End: 09-22-2023 take 1 tablet by mouth once daily Levothyroxine 88 mcg tablet Discontinued 88 ug PO DAILY 2019 1:00am September 22, 2023 3:27pm thyroid Comment on above: Take 1 tablet by felipa th once daily. Take on empty stomach Take 1 tablet by felipa th once daily. Take on empty stomach. For thyroid losartan potassium 100 mg oral tablet (20 sources) Angiotensin 2 Receptor Mague Start: 0 End: take 1 tablet by mouth once daily losartan (COZAAR) 100 mg tablet Indications: Primary hypertension Take 1 tablet by mouth once daily. 90 tablet 3 10/27/2024 Active Comment on above: Take 1 tablet by felipa th once daily. metoprolol tartrate 25 mg oral tablet (20 sources) beta-Adrenergic Mague Start: End: take 1 tablet by mouth once daily metoprolol tartrate, short acting, (LOPRESSOR) 25 mg tablet Indications: New onset atrial fibrillation (HCC) Take 1 tablet by mouth once daily. 05/21/2024 05/21/2024 Discontinued (Clinical Decision) Start: 04-29-2024 End: 11-22-2024 take 1 tablet by mouth twice daily Metoprolol Tartrate 25 mg tablet Discontinued 25 mg PO TWICE A DAY 180 April 29, 2024 11:24am November 22, 2024 1:54pm Start: 06-17-2023 End: 05-21-2024 take 1 tablet by mouth twice daily metoprolol tartrate, short acting, (LOPRESSOR) 50 mg tablet Indications: New onset atrial fibrillation (HCC) Take 1 tablet by mouth two times a day. 120 tablet 5 06/23/2023 05/21/2024 Discontinued Start: 2019 End: 06-23-2023 take 1 tablet by mouth twice daily Metoprolol Tartrate 25 mg tablet Discontinued 25 mg PO TWICE A DAY 2019 1:00am June 17, 2023 3:21pm heart Comment on above: Take 1 tablet by felipa th twice daily. Take 1 tablet by felipa th two times a day. multivit-minerals/folic acid (MULTIVITAMIN GUMMIES PO) (7 sources) multivit-mineral s/foli c acid (MULTIVITAMIN GUMMIES PO) Take 2 pieces of gum by mouth q 12 HR. Active ondansetron 8 mg disintegrating oral tablet (20 sources) Serotonin-3 Receptor Antagonist Start: 11-09-19 End: 01-05-20 take 1 tablet by mouth every eight hours as needed ondansetron orally disintegrating (ZOFRAN ODT) 8 mg disintegrating tablet Take 1 tablet by mouth every 8 hours as needed for nausea/vomiting. 20 tablet 1 01/04/2025 Active Start: 03-17-2024 End: 04-26-2024 take 1 tablet by mouth every eight hours as needed ondansetron orally disintegrating (ZOFRAN ODT) 8 mg disintegrating tablet Take 1 tablet by mouth every 8 hours as needed for nausea/vomiting. 20 tablet 11/08/2024 Active pantoprazole 20 mg delayed release oral tablet (20 sources) Proton Pump Inhibitor Start: 05-21-2024 End: 01-04-2025 take 1 tablet by mouth once daily pantoprazole DR (PROTONIX) 20 mg tablet Indications: Gastroesophageal reflux disease, unspecified whether esophagitis present Take 1 tablet by mouth once daily. 90 tablet 3 01/04/2025 Active 1000 ml sodium chloride 9 mg/ml injection (1 source) Start: 04-14-2024 End: 04-14-2024 inject 1 dose intravenously once 0.9 % sodium chloride (NACL 0.9%) infusion Indications: Bilateral hydronephrosis Inject 5-30 mL/hr intravenously one time only for 1 dose. Administer at rate defined per CT contrast administration specifications. To be provided with radiology test. 1 Each 04/14/2024 04/14/2024 Active tamsulosin hydrochloride 0.4 mg oral capsule (20 sources) alpha-Adrenerg ic Mague Start: 06-16-2023 take 1 capsule by mouth twice daily Tamsulosin 0.4 mg capsule Active 0.4 mg PO TWICE A DAY June 16, 2023 1:00am prostate Start: 01-03-2023 End: 10-27-2024 take 2 capsules by mouth once daily at bedtime tamsulosin (FLOMAX) 0.4 mg Indications: Urinary frequency Take 2 capsules by mouth daily at bedtime. 180 capsule 3 10/27/2024 Active Start: 10-01-2022 End: 01-03-2023 take 1 capsule by mouth once daily at bedtime tamsulosin (FLOMAX) 0.4 mg Take 1 capsule by mouth daily at bedtime. 90 capsule 3 10/01/2022 01/03/2023 Discontinued Start: 07-27-2021 End: 09-27-2022 take 1 capsule by mouth once daily at bedtime tamsulosin (FLOMAX) 0.4 mg Take 1 capsule by mouth daily at bedtime. 90 capsule 3 12/27/2021 09/27/2022 Discontinued Comment on above: Take 1 capsule by mo okh daily at bedtime. Take 2 capsules by m outh daily at bedtime. valACYclovir 500 mg oral tablet (20 sources) Herpesvirus Nucleoside Analog DNA Polymerase Inhibitor, Herpes Simplex Virus Nucleoside Analog DNA Polymerase Inhibitor, Herpes Zoster Virus Nucleoside Analog DNA Polymerase Inhibitor Start: End: take 1 tablet by mouth once daily valACYclovir (VALTREX) 500 mg tablet Indications: Herpes infection Take 1 tablet by mouth once daily. 90 tablet 3 01/04/2025 Active Comment on above: [facility] Completed/Discontinued Medications Medication Drug Class(es) Dates Sig (Normalized) Sig (Original) ascorbic acid 500 mg oral tablet (20 sources) Vitamin C Start: 05-03-2024 End: 10-27-2024 take 1 tablet by mouth once daily ascorbic acid, vitamin C, (VITAMIN C) 500 mg tablet Take 1 tablet by mouth once daily. 05/03/2024 10/27/2024 Discontinued benzonatate 100 mg oral capsule (8 sources) Non-narcotic Antitussive Start: 05-08-2023 End: 10-24-2023 take 2 capsules by mouth every eight hours as needed benzonatate (TESSALON PERLES) 100 mg capsule Take 2 capsules by mouth three times a day as needed. 30 capsule 0 05/08/2023 10/24/2023 Discontinued Comment on above: Take 2 capsules by m outh three times a day as needed. calcium chloride 0.0014 meq/ml / potassium chloride 0.004 meq/ml / sodium chloride 0.103 meq/ml / sodium lactate 0.028 meq/ml injectable solution (1 source) Start: 12-18-2023 End: 12-18-2023 lactated ringers iv infusion cefuroxime 500 mg oral tablet (1 source) Cephalosporin Antibacterial Start: 04-15-2024 End: 04-18-2024 take 1 tablet by mouth twice daily Cefuroxime Axetil 500 mg tablet Discontinued 500 mg PO TWICE A DAY 14 7 0 April 15, 2024 1:00am April 18, 2024 12:51pm diphenhydrAMINE (1 source) Histamine-1 Receptor Antagonist Start: 12-18-2023 End: 12-18-2023 diphenhydrAMINE 12.5-50 mg injection (BENADRYL) 1 ml fentaNYL 0.05 mg/ml injection (1 source) Opioid Agonist Start: 12-18-2023 End: 12-18-2023 fentaNYL 50 mcg/mL 25-100 mcg injection (SUBLIMAZE) ferrous sulfate 325 mg oral tablet (20 sources) Start: 05-03-2024 End: 10-27-2024 take 1 tablet by mouth once daily ferrous sulfate 325 mg (65 mg iron) tablet Take 1 tablet by mouth once daily. 05/03/2024 10/27/2024 Discontinued 2 ml gentamicin 40 mg/ml injection (2 sources) Start: 01-26-2024 End: 01-26-2024 gentamicin 40 mg/mL 120 mg injection Start: 01-26-2024 End: 01-26-2024 inject 1 dose by intramuscular injection once 120 mg, INTRAMUSCULAR, ONCE, 1 dose, On Fri01/26/24 at 1300, Antimicrobial indication: Prophylaxis, Infectious source(s): Other (free text), Infectious source(s): prophylaxis iv contrast (will be provide d with radiology test) (20 sources) Start: 04-14-2024 End: 10-27-2024 iv contrast (will be provide d with radiology test) Indications: Bilateral hydronephrosis CT Urogram WO/W Inject, intravenously, once for 1 dose.No IV access, insert saline lock prior to the beginning of sedation, infusion, injection of imaging exam. Discontinue saline lock post exam. If Pt. has a central line or IVAD, may access for administration according to line specific nursing protocol. Once exam is complete flush line and de-access according to line specific nursing protocol in the CT contrast administration guidelines link. 1 Each 04/14/2024 10/27/2024 Discontinued Start: 04-14-2024 iv contrast (w ill be provided with radiology test) Indications: Bilateral hydronephrosis CT Urogram WO/W Inject, intravenously, once for 1 dose.No IV access, insert saline lock prior to the beginning of sedation, infusion, injection of imaging exam. Discontinue saline lock post exam. If Pt. has a central line or IVAD, may access for administration according to line specific nursing protocol. Once exam is complete flush line and de-access according to line specific nursing protocol in the CT contrast administration guidelines link. 1 Each 04/14/2024 Active 0.375 ml leuprolide acetate 60 mg/ml prefilled syringe (4 sources) Gonadotropin Releasing Hormone Receptor Agonist Start: 11-12-2024 End: 11-12-2024 inject 1 dose by subcutaneous injection once 22.5 mg, SUBCUTANEOUS, ONCE, 1 dose, On Fri11/12/24 at 0900, Hazardous Chemotherapy Drug: Use appropriate PPE. Start: 08-20-2024 End: 08-20-2024 inject 1 dose by subcutaneous injection once 22.5 mg, SUBCUTANEOUS, ONCE, 1 dose, On Fri08/20/24 at 0930, Hazardous Chemotherapy Drug: Use appropriate PPE. Start: 05-28-2024 End: 05-28-2024 inject 1 dose by subcutaneous injection once 22.5 mg, SUBCUTANEOUS, ONCE, 1 dose, On Fri05/28/24 at 0830, Hazardous Chemotherapy Drug: Use appropriate PPE. Start: 02-27-2024 End: 02-27-2024 inject 1 dose by subcutaneous injection once 22.5 mg, SUBCUTANEOUS, ONCE, 1 dose, On Fri02/27/24 at 0900, Hazardous Chemotherapy Drug: Use appropriate PPE. levoFLOXacin 750 mg oral tablet (13 sources) Quinolone Antimicrobial Start: 01-26-2024 End: 01-26-2024 take 1 dose by mouth every 30 days at mealtime 750 mg, ORAL, ONCE (UP TO 30 DAYS AMB), 1 dose, On Fri01/26/24 at 1300, Administer 2 hours before or 2 hours after medications containing calcium, magnesium, aluminum, iron, or zinc (including antacids and sucralfate), and sevelamer. May be administered without regard to meals. Tube feedings should be held 1 hour before and 1 hour after administration., Antimicrobial indication: Prophylaxis Start: 12-31-2023 End: 02-26-2024 take 1 tablet by mouth once daily levoFLOXacin (LEVAQUIN) 750 mg tablet Take 1 tablet by mouth once daily. Start the day before the biopsy 3 tablet 12/31/2023 02/26/2024 Discontinued (Course of therapy completed) Lidocaine (2 sources) Antiarrhythmic, Amide Local Anesthetic Start: 01-26-2024 End: 01-26-2024 lidocaine 10 mg/mL (1 %) 100 mg injection (XYLOCAINE) Start: 01-26-2024 End: 01-26-2024 100 mg (10 mL), OTHER, ONCE (UP TO 30 DAYS AMB), 1 dose, On 01/26/24 at 1300 5 ml midazolam 1 mg/ml injection (1 source) Benzodiazepine Start: 12-18-2023 End: 12-18-2023 midazolam 1-5 mg injection (VERSED) nitrofurantoin, macrocrystals 100 mg oral capsule (1 source) Nitrofuran Antibacterial Start: 04-18-2024 End: 04-29-2024 take 1 capsule by mouth twice daily at mealtime Nitrofurantoin Macrocrystal 100 mg capsule Discontinued 100 mg PO TWICE A DAY 14 0 April 18, 2024 1:00am April 29, 2024 10:59am must administer with a meal/food nitrofurantoin, macrocrystals 25 mg / nitrofurantoin, monohydrate 75 mg oral capsule (8 sources) Nitrofuran Antibacterial Start: 06-14-2024 End: 06-21-2024 take 1 capsule by mouth twice daily nitrofurantoin monohydrate and macrocrystal (MACROBID) 100 mg capsule Indications: Dysuria Take 1 capsule by mouth two times a day for 7 days. 14 capsule 06/14/2024 06/21/2024 Start: 05-24-2024 End: 05-31-2024 take 1 capsule by mouth twice daily nitrofurantoin monohydrate and macrocrystal (MACROBID) 100 mg capsule Indications: Dysuria Take 1 capsule by mouth two times a day for 7 days. 14 capsule 05/24/2024 05/31/2024 Active simethicone 66.7 mg/ml oral suspension (1 source) Start: 12-18-2023 End: 12-18-2023 simethicone 20-40 mg oral liquid (MYLICON) Problems Active Problems Problem Classification Problem Date Documented Da te Episodic/Chronic Cancer of prostate (20 sources) Malignant tumor of prostate; Translations: [Malignant neoplasm of prostate] Onset: 4 02-13-2024 Chronic Cardiac dysrhythmias (20 sources) Atrial fibrillation; Translations: [Unspecified atrial fibrillation] Onset: 4 Resolved: 4 06-16-2023 Chronic Chronic kidney disease (2 sources) Chronic kidney disease stage 3A ; Translations: [Stage 3a chronic kidney disease (HCC)] Onset: 5 01-04-2025 Chronic Chronic kidney disease (2 sources) Chronic kidney disease; Translations: [Stage 3a chronic kidney disease (HCC)] Onset: 5 Conditions associated with dizziness or vertigo (5 sources) Lightheadedness; Translations: [Dizziness and giddiness] 06-16-2023 Episodic Diseases of white blood cells (5 sources) Leukocytosis; Translations: [Elevated white blood cell count, unspecified] 06-16-2023 Chronic Disorders of lipid metabolism (20 sources) Hyperlipidemia; Translations: [Hyperlipidemia, unspecified] Onset: 4 03-08-2014 Chronic E Codes: Fall (1 source) Fall; Translations: [Unspecified fall, initial encounter] 04-23-2024 Episodic Esophageal disorders (20 sources) Gastroesophageal reflux disease; Translations: [Gastro-esophageal reflux disease without esophagitis] Onset: 5 05-21-2024 Chronic Essential hypertension (20 sources) Hypertensive disorder; Translations: [Essential (primary) hypertension] Onset: 4 03-08-2014 Chronic Genitourinary symptoms and ill-defined conditions (2 sources) Presence of urogenital implants; Translations: [Other postprocedural status] Onset: 4 03-08-2024 Chronic Genitourinary symptoms and ill-defined conditions (20 sources) Increased frequency of urination; Translations: [Frequency of micturition] Onset: 2 Resolved: 5 06-21-2021 Episodic Hyperplasia of prostate (7 sources) Benign prostatic hyperplasia; Translations: [Benign prostatic hyperplasia without lower urinary tract symptoms] 02-04-2023 Chronic Immunizations and screening for infectious disease (1 source) Needs influenza immunization; Translations: [Encounter for immunization] 02-26-2024 Episodic Lymphadenitis (5 sources) Retroperitoneal lymphadenopathy ; Translations: [Localized enlarged lymph nodes] 01-02-2024 Episodic Nausea and vomiting (1 source) Nausea; Translations: [Nausea] Onset: 5 Episodic Other aftercare (1 source) manager intermediate (current) use of anticoagulants; Translations: [Anticoagulant long-term use] Onset: 4 Episodic Other aftercare (1 source) Radiotherapy follow-up; Translations: [Encounter for follow-up examination after completed treatment for conditions other than malignant neoplasm] 04-20-2024 Episodic Other circulatory disease (1 source) Orthostatic hypotension; Translations: [Orthostatic hypotension] 06-16-2023 Episodic Other circulatory disease (3 sources) Transient hypotension; Translations: [Hypotension, unspecified] 06-16-2023 Episodic Other circulatory disease (2 sources) Hypotension, unspecified; Translations: [Nonspecific low blood pressure reading] 06-16-2023 Episodic Other diseases of kidney and ureters (5 sources) Hydronephrosis; Translations: [Unspecified hydronephrosis] 02-27-2024 Episodic Other gastrointestinal disorders (2 sources) Constipation; Translations: [Constipation, unspecified] 10-25-2023 Episodic Other lower respiratory disease (1 source) Cough; Translations: [Acute cough] 05-08-2023 Episodic Other lower respiratory disease (1 source) Hypoxemia; Translations: [Hypoxemia] 04-16-2024 Episodic Other nutritional; endocrine; and metabolic disorders (20 sources) Obese class I; Translations: [Obesity, unspecified] Onset: 9 Resolved: 1 07-24-2023 Chronic Other upper respiratory infections (9 sources) Acute upper respiratory infection; Translations: [Acute upper respiratory infection, unspecified] Onset: 5 06-16-2024 Episodic Peripheral and visceral atherosclerosis (20 sources) Peripheral vascular disease; Translations: [Peripheral vascular disease, unspecified] Onset: 4 10-22-2023 Chronic Secondary malignancies (8 sources) Secondary malignant neoplasm of retroperitoneal lymph nodes; Translations: [Secondary and unspecified malignant neoplasm of intra-abdominal lymph nodes] Onset: 5 03-02-2024 Chronic Secondary malignancies (2 sources) Secondary and unspecified malignant neoplasm of intra-abdominal lymph nodes; Translations: [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)] Onset: Chronic Syncope (1 source) Near syncope; Translations: [Syncope and collapse] 04-23-2024 Episodic Thyroid disorders (20 sources) Hypothyroidism; Translations: [Hypothyroidism, unspecified] Onset: 5 07-21-2014 Chronic Past or Other Problems Problem Classification Problem Date Documented Da te Episodic/Chronic Acute and unspecified renal failure (4 sources) Acute renal failure syndrome; Translations: [Acute kidney failure, unspecified] Onset: 03-08-2024 02-27-2024 Episodic Allergic reactions (20 sources) Allergic contact dermatitis; Translations: [Allergic contact dermatitis, unspecified cause] Onset: 03-08-2014 03-08-2014 Episodic Anal and rectal conditions (20 sources) Rectal mass; Translations: [Other specified diseases of anus and rectum] Onset: 12-04-2023 Resolved: 02-26-2024 12-04-2023 Episodic Cardiac dysrhythmias (2 sources) Bradycardia; Translations: [Bradycardia, unspecified] Onset: 05-21-2024 05-21-2024 Episodic Deficiency and other anemia (20 sources) Anemia; Translations: [Anemia, unspecified] Onset: 12-27-2021 Episodic Deficiency and other anemia (1 source) Anemia, unspecified; Translations: [Anemia, unspecified type] Onset: 12-27-2021 Episodic Diabetes mellitus without complication (20 sources) Impaired fasting glycemia; Translations: [Impaired fasting glucose] Onset: 12-19-2016 12-19-2016 Episodic Malaise and fatigue (3 sources) Fatigue; Translations: [Other fatigue] Onset: 05-17-2024 02-26-2024 Episodic Other aftercare (20 sources) Long-term current use of anticoagulant; Translations: [USP (current) use of anticoagulants] Onset: 10-21-2023 10-21-2023 Episodic Other diseases of kidney and ureters (20 sources) Bilateral hydronephrosis ; Translations: [Unspecified hydronephrosis] Onset: 03-08-2024 Resolved: 01-04-2025 03-01-2024 Episodic Other diseases of kidney and ureters (3 sources) Unspecified hydronephrosis; Translations: [Bilateral hydronephrosis] Onset: 03-08-2024 Episodic Other diseases of kidney and ureters (1 source) Other hydronephrosis; Translations: [Other hydronephrosis] Onset: 04-14-2024 Episodic Other gastrointestinal disorders (20 sources) Stool DNA-based colorectal cancer screening positive; Translations: [Other fecal abnormalities] Onset: 01-03-2023 Resolved: 02-26-2024 01-03-2023 Episodic Other male genital disorders (20 sources) Male erectile dysfunction, unspecified; Translations: [Impotence of organic origin] Onset: 06-21-2021 Resolved: 10-27-2024 06-21-2021 Chronic Other nutritional; endocrine; and metabolic disorders (20 sources) Obese class II; Translations: [Obesity, unspecified] Onset: 06-02-2020 Resolved: 10-25-2023 06-02-2020 Chronic Other screening for suspected conditions (not mental disorders or infectious disease) (20 sources) Patient encounter status; Translations: [Encounter for screening for malignant neoplasm of colon] Onset: 01-09-2023 Resolved: 10-27-2024 Episodic Residual codes; unclassified (20 sources) Other specified personal risk factors, not elsewhere classified; Translations: [Other specified personal history presenting hazards to health] Onset: 10-21-2023 Resolved: 01-04-2025 10-21-2023 Episodic Residual codes; unclassified (1 source) Hormone sensitive malignancy status; Translations: [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)] Onset: 11-12-2024 Episodic Screening and history of mental health and substance abuse codes (2 sources) Encounter for screening for depression; Translations: [Encounter for screening examination for other mental health and behavioral disorders] Onset: 10-27-2024 Episodic Spondylosis; intervertebral disc disorders; other back problems (20 sources) Spasm of back muscles; Translations: [Muscle spasm of back] Onset: 05-23-2015 05-23-2015 Episodic Urinary tract infections (9 sources) Urinary tract infectious disease; Translations: [Urinary tract infection, site not specified] Onset: 04-19-2024 04-23-2024 Episodic Viral infection (20 sources) Herpesvirus infection; Translations: [Herpesviral infection, unspecified] Onset: 03-08-2014 Resolved: 12-06-2020 1 Episodic Results Test Name Value Interpretation Reference Range Facility [facility] 02-25-2025 CNOV Office Visit (URCANT ) -- JIANCILNT CONNOR ([id number]) 1940 M Date Time Provider Department 02/25/25 8:30 AM RADHA LARSEN URMARGARITA During your visit today, we recorded the following information about you: Radha Larsen MD 02/25/2025 8:43 AM Signed [facility] ESTABLISHED PATIENT NOTE PATIENT: Clint Villar (84 year old) PCP: Cody Carrington MD DATE OF SERVICE: 02/25/2025 The patient is an 84-year-old male with 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 -- SUMMARY: Castrate sensitive metastatic prostate cancer On Eligard and Xtandi through oncology XRT Lymphadenopathy and bilateral hydronephrosis (stents out) resolved PSA 0.26 from 0.3 from 0.73 from 1.88 (down from 73.59 originally) Continue medical therapy through oncology Repeat renal US with next visit 1. Prostate cancer (HCC) (C61) Castrate sensitive metastatic prostate cancer. Excellent response to therapy with PSA now 0.26 (down from 73.5 originally). No new symptoms. Ongoing fatigue, hot flashes, and lightheadedness likely related to hormone therapy. Oncology managing Eligard and Xtandi. Prior XRT. - Continue medical therapy through oncology. - Monitor for side effects of hormone therapy. - Follow up with me in 6 months for PSA. - No new intervention from urology at this time. 2. 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 No evidence of progression. - Continue surveillance through oncology. 4. Urinary frequency (R35.0) No voiding symptoms. No medical therapy needed for voiding complaints. Prior retention resolved. 5. Stage 3a chronic kidney disease (HCC) (N18.31) Kidney function continues to improve. Creatinine now 1.23. No evidence of hydronephrosis. Stents removed. - Plan for renal ultrasound at next visit in 6 months to monitor kidney status. 6. History of hydronephrosis (Z87.448) 7. Other hydronephrosis (N13.39) Hydronephrosis resolved. Stents out 07/15/2024. No recurrence on recent imaging. - No further intervention planned. - Discussed concerning signs and symptoms; patient knows to report these immediately. If unable to reach urologist, patient knows to report to emergency department for evaluation. 8. USP (current) use of anticoagulants (Z79.01) Chronically anticoagulated on Eliquis. No bleeding or thrombotic complications reported. -- FOLLOW UP: Return in about 6 months (around 08/26/2025). ORDERS: Orders Placed This Encounter US KIDNEY/BLADDER Standing Status: Future Expected Date: 08/26/2025 Expiration Date: 03/27/2026 -- HISTORY OF PRESENT ILLNESS: Prior notes were reviewed. The patient is an 84-year-old male with castrate-sensitive metastatic prostate cancer, presenting for a 6-month follow-up. The patient was originally diagnosed with metastatic prostate cancer after presenting with significant lymphadenopathy and bilateral hydronephrosis, which required bilateral ureteral stent placement. The hydronephrosis has since resolved and the stents have been removed. He is currently under the care of oncology and is receiving Elagard and Xtandi, with prior radiation therapy completed. He is also chronically anticoagulated on Eliquis. He reports feeling pretty good overall, but notes episodes of lightheadedness and dizziness, as well as significant fatigue and hot flashes. He is working with his oncologist to determine the cause of the lightheadedness and dizziness. He denies hematuria, abdominal pain, weight loss, and fevers. He also reports no voiding symptoms and is not on any medical therapy for voiding complaints. He was recently seen by oncology a few days ago, and his PSA continues to decrease, now at 0.26 from 0.3, with an original value of 73.5. He has not yet started a new medication that oncology plans to initiate, pending dental clearance. REVIEW OF SYSTEMS: Constitutional: (+) fatigue, (-) weight loss, (-) fever Gastrointestinal: (-) abdominal pain Genitourinary: (-) hematuria Neurological: (+) dizziness Endocrine: (+) hot flashes All other systems negative unless described above. ALLERGIES: ALLERGIES Allergen Reactions Latex Rash MEDICATIONS: prochlorperazine (COMPAZINE) 10 mg tablet Take 1 tablet by mouth every 6 h (more content not included)... Normal [facility] Comprehensive metabolic 2000 panelon 02-23-2025 Albumin [Mass/Vol] 4.2 g/dL Normal 3.9-4.9 [facility] Comment on above: Order Comment: Speci men Type: BLOOD SPECIMEN Ordering Facility: [facility] Address: [address] [place] [address] Performed By: #### 2 4323-8 #### [facility] CL[facility] [id number] [address] [place] [address] [place] ALP [Catalytic activity/Vol] 62 U/L Normal 38-113 [facility] Comment on above: Order Comment: Speci men Type: BLOOD SPECIMEN Ordering Facility: [facility] Address: [address] [place] [address] Performed By: #### 2 4323-8 #### [facility] CLIA [id number] [address] [place] [address] [place] ALT [Catalytic activity/Vol] 5 U/L Low 10-54 [facility] Comment on above: Order Comment: Speci men Type: BLOOD SPECIMEN Ordering Facility: [facility] Address: [address] [place] [address] Performed By: #### 2 4323-8 #### [facility] CLIA [id number] [address] [place] [address] [place] Anion gap [Moles/Vol] 9 mmol/L Normal 8-15 [facility] Comment on above: Order Comment: Speci men Type: BLOOD SPECIMEN Ordering Facility: [facility] Address: [address] [place] [address] Performed By: #### 2 4323-8 #### [facility] CLIA [id number] [address] [place] [address] [place] AST [Catalytic activity/Vol] 12 U/L Low 14-40 [facility] Comment on above: Order Comment: Speci men Type: BLOOD SPECIMEN Ordering Facility: [facility] Address: [address] [place] [address] Performed By: #### 2 4323-8 #### [facility] CLIA [id number] [address] [place] [address] [place] Bilirubin [Mass/Vol] 0.4 mg/dL Normal 0.2-1.3 [facility] Comment on above: Order Comment: Speci men Type: BLOOD SPECIMEN Ordering Facility: [facility] Address: [address] [place] [address] Performed By: #### 2 4323-8 #### [facility] CLIA [id number] [address] [place] [address] [place] Calcium [Mass/Vol] 9.9 mg/dL Normal 8.5-10.2 [facility] Comment on above: Order Comment: Speci men Type: BLOOD SPECIMEN Ordering Facility: [facility] Address: [address] [place] [address] Performed By: #### 2 4323-8 #### [facility] CLIA [id number] [address] [place] [address] [place] Chloride [Moles/Vol] 102 mmol/L Normal 98-107 [facility] Comment on above: Order Comment: Speci men Type: BLOOD SPECIMEN Ordering Facility: [facility] Address: [address] [place] [address] Performed By: #### 2 4323-8 #### [facility] CLIA [id number] [address] [place] [address] [place] CO2 [Moles/Vol] 24 mmol/L Normal 22-30 [facility] Comment on above: Order Comment: Speci men Type: BLOOD SPECIMEN Ordering Facility: [facility] Address: [address] [place] [address] Performed By: #### 2 4323-8 #### [facility] CLIA [id number] [address] [place] [address] [place] Creatinine [Mass/Vol] 1.23 mg/dL High 0.73-1.22 [facility] Comment on above: Order Comment: Franny zavala Type: BLOOD SPECIMEN Ordering Facility: [facility] Address: [address] [place] [address] Performed By: #### 2 4323-8 #### [facility] CLIA [id number] [address] [place] [address] [place] eGFRcr SerPlBld CKD-EPI 2020 59 mL/min/1.73m??? Low >=60 [facility] Comment on above: Order Comment: Franny zavala Type: BLOOD SPECIMEN Ordering Facility: [facility] Address: [address] [place] [address] Result Comment: Karin mated Glomerular Filtration Rate (eGFR) is calculated using the 2020 CKD-EPI creatinine equation. This equation utilizes serum creatinine, sex, and age as parameters. The creatinine assay has traceable calibration to isotope dilution-mass spectrometry. Refer to KDIGO guidelines for clinical interpretation. In patients with unstable renal function, e.g. those with acute kidney injury, the eGFR may not accurately reflect actual GFR. Performed By: #### 2 4323-8 #### [facility] CLIA [id number] [address] [place] [address] [place] Glucose [Mass/Vol] 100 mg/dL High 74-99 [facility] Comment on above: Order Comment: Franny zavala Type: BLOOD SPECIMEN Ordering Facility: [facility] Address: [address] [place] [address] Result Comment: The [place] [employer] (ADA) provides guidance for cutoff values for fasting glucose and random glucose. The ADA defines fasting as no caloric intake for at least 8 hours. Fasting plasma glucose results between 100 to 125 mg/dL indicate increased risk for diabetes (prediabetes). Fasting plasma glucose results greater than or equal to 126 mg/dL meet the criteria for diagnosis of diabetes. In the absence of unequivocal hyperglycemia, results should be confirmed by repeat testing. In a patient with classic symptoms of hyperglycemia or hyperglycemic crisis, random plasma glucose results greater than or equal to 200 mg/dL meet the criteria for diagnosis of diabetes. Reference: Standards of Medical Care in Diabetes 2016, [place] [employer]. Diabetes Care. 2016.39(Suppl 1). Performed By: #### 2 4323-8 #### [facility] CLIA [id number] [address] [place] [address] [place] Potassium [Moles/Vol] 4.7 mmol/L Normal 3.7-5.1 [facility] Comment on above: Order Comment: Speci men Type: BLOOD SPECIMEN Ordering Facility: [facility] Address: [address] [place] [address] Performed By: #### 2 4323-8 #### [facility] CLIA [id number] [address] [place] [address] [place] Protein [Mass/Vol] 7.4 g/dL Normal 6.3-8.0 [facility] Comment on above: Order Comment: Speci men Type: BLOOD SPECIMEN Ordering Facility: [facility] Address: [address] [place] [address] Performed By: #### 2 4323-8 #### [facility] CLIA [id number] [address] [place] [address] [place] Sodium [Moles/Vol] 135 mmol/L Low 136-144 [facility] Comment on above: Order Comment: Speci men Type: BLOOD SPECIMEN Ordering Facility: [facility] Address: [address] [place] [address] Performed By: #### 2 4323-8 #### [facility] CLIA [id number] [address] [place] [address] [place] Urea nitrogen [Mass/Vol] 22 mg/dL Normal 9-24 [facility] Comment on above: Order Comment: Speci men Type: BLOOD SPECIMEN Ordering Facility: [facility] Address: [address] [place], [place] [address] Performed By: #### 2 4323-8 #### [facility] CLIA [id number] [address] [place] [address] [place] PSA SerPl-mCncon 02-23-2025 Prostate specific Ag [Mass/Vol] 0.26 ng/mL Normal <2.60 [facility] Comment on above: Order Comment: Speci men Type: BLOOD SPECIMEN Ordering Facility: [facility] Address: [address] [place] [address] Result Comment: Tota l PSA test methodology used is the Electrochemiluminescence Immunoassay by [employer]. Total PSA values by differing methodologies cannot be interchanged. Performed By: #### 2 857-1 #### [facility] CLIA [id number] [address] [place] [address] [place] TSH SerPl-aCncon 02-23-2025 TSH Qn 3.720 m[IU]/L Normal 0.270-4.200 [facility] Comment on above: Order Comment: Speci men Type: BLOOD SPECIMEN Ordering Facility: [facility] Address: [address] [place] [address] Performed By: #### 2 857-1 #### [facility] CLIA [id number] [address] [place] CNOVSPon 02-22-2025 CNOVSP Visit (SP) Office ( [facility]) -- CLINT VILLAR ([id number]) 1940 M Date Time Provider Department 02/22/25 10:30 AM PINA SCHUSTER During your visit today, we recorded the following information about you: Pina Schuster 02/22/2025 5:54 PM Signed Clint Villar 1940 02/22/2025 HISTORY OF PRESENT ILLNESS: Clint Villar is a 84 year old male in excellent health had a cologuard come back positive. A colonography CT scan was done that showed retroperitoneal adenopathy, enlarged prostate gland and possible rectal mass. Colonoscopy was negative for rectal mass. Saw urology PSA 73.59 (was 71 in January 2023). Prostate enlarged and firm. Biopsy of prostate is planned for mid January. 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 Reviewed case also with Dr Aguilar. Met in follow up, reviewed prostate biopsy shows adenocarcinoma. Bone scan focally positive. Retro peritoneal adenopathy. Bone scan shows osseous mets PSA now normal, we see improvement in adenopathy, hydronephrosis Recurrent UTI since stent placement. Lupron started 02-27-24. Enzalutamide started 07-09-24 11-12-24 follow up, feels tired. Planning to retire soon. Interval Hx 02/11/2025: Reports worsening headaches, nausea, lightheadedness, fatigue over the last few months. He felt to be related to xtandi. Has been taking zofran with xtandi, but hasn't helped much. No new aches or pains. No changes in bladder, habits if anything its getting better less nocturia. Constipation has been an ongoing issues. No Shortness of Breath, CP, or palpitations. No tooth issues. No hematuria or hematochezia. Interval Hx: Patient presented to office today with his spouse. He has been holding xtandi for 1 week as we discussed in last OV on 02/11/25 and this has made him anxious. Reviewed that though PO medication was briefly held to assess symptoms listed above, he remains on lupron injections. He notes that nausea has improved since he has been off of xtandi has not needed to take any antiemetics. Bowels moving well. No abd pains. Denies bleeding. Continues to have intermittent lightheadedness and dizziness. None currently. Spouse feels that he may need to see ENT? He has had recent change in synthroid. Also note bradycardia on chart review for which he follows [facility]. Would recommend following up with PCP. CLINICAL IMPRESSION: Prostate cancer on biopsy, stage IV PSA improved on GnRH agonist - reviewed today RECOMMENDATION/PLAN: 1. continue GnRH agonist, - Ok to restart xtandi, advised to call if symptoms of nausea return. - discussed with Dr Payne, consider switch to apalutamide if unable to tolerate enzalutamide. 2. Will discuss adding bisphosphonate depending on kidney fxn. - CMP pending today, but improvement noted in 11/2024 - reviewed with him today -will need dental clearance. 3. Follow up with PCP Otherwise return as scheduled Advised to call with any questions or concerns in the meantime. 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 PAST SURGICAL HISTORY 2005: OPEN REPAIR OF ROTATOR CUFF ACUTE; Right Comment: Rotator cuff repair, right 1950s: TONSILLECTOMY PRIMARY/SECONDARY Comment: Tonsillectomy FAMILY HISTORY Problem Relation Age of Onset other (Other) Mother no contact Coronary Artery Disease Father Heart Failure Father Diabetes Father Cancer Paternal Grandfather Cancer Half-brother Social History Tobacco Use Smoking status: Former Types: Cigarettes Smokeless tobacco: Never Tobacco comments: Pt smoked 1 pack daily x 20 years, Vaping Use Vaping status: Never Used Substance Use Topics Alcohol use: Yes Alcohol/week: 1.0 standard drink of alcohol Types: 1 Cans of beer per week Drug use: Never ALLERGIES: ALLERGIES No Known A (more content not included)... Normal [facility] Tray 02-22-2025 FLORINDA Telephone (TYE) -- JIANCLINT CONNOR ([id number]) 1940 M Date Time Provider Department 02/22/25 JOHAN PAYNE During your visit today, we recorded the following information about you: Yandy Cronin 02/22/2025 2:17 PM Signed NO AVS, NEXT OV IS SCHEDULED ALREADY WITH LUPRON Allergies As of Date: 02/22/2025 Noted Allergy Reaction LATEX 03/15/2024 2 - Rash Date Reviewed: 02/22/2025 Reviewed by: Pina Schuster - Fully Assessed Reason for Visit: Appointment [186] Cmt: NO AVS 02/22 Prescriptions as of 02/22/2025 - prochlorperazine (COMPAZINE) 10 mg tablet Take 1 tablet by mouth every 6 hours as needed. - pantoprazole DR (PROTONIX) 20 mg tablet Take 1 tablet by mouth once daily. - ondansetron orally disintegrating (ZOFRAN ODT) 8 mg disintegrating tablet Take 1 tablet by mouth every 8 hours as needed for nausea/vomiting. - valACYclovir (VALTREX) 500 mg tablet Take 1 tablet by mouth once daily. - levothyroxine (SYNTHROID) 125 mcg tablet Take 1 tablet by mouth once daily. - multivit-minerals/folic acid (MULTIVITAMIN GUMMIES PO) Take 2 pieces of gum by mouth q 12 HR. - cyclobenzaprine (FLEXERIL) 10 mg tablet Take 1 tablet by mouth two times a day as needed for muscle spasm. - atorvastatin (LIPITOR) 40 mg tablet Take 1 tablet by mouth daily at bedtime. - hydrOXYzine HCl (ATARAX) 25 mg tablet Take 1 tablet by mouth daily at bedtime. - losartan (COZAAR) 100 mg tablet Take 1 tablet by mouth once daily. - tamsulosin (FLOMAX) 0.4 mg Take 2 capsules by mouth daily at bedtime. - fluticasone (FLONASE) 50 mcg/actuation nasal spray Use 1 spray in each nostril daily at bedtime. - amLODIPine (NORVASC) 5 mg tablet Take 1 tablet by mouth once daily. - enzalutamide (XTANDI) 80 mg tablet Take 2 tablets (160 mg) by mouth once daily. - apixaban (ELIQUIS) 5 mg tab(s) Take 1 tablet by mouth two times a day. 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] 03/08/2014 05/23/2015 Hypothyroidism [E03.9] 07/21/2014 Herpes infection [B00.9] 05/23/2015 Muscle spasm of back [M62.830] 05/23/2015 Impaired fasting glucose [R73.01] 12/19/2016 Obesity, Class I, BMI 30-34.9 [E66.811] 01/29/2019 06/02/2020 Obesity, Class II, BMI 35-39.9 [E66.812] 06/02/2020 10/25/2023 COVID-19 virus infection [U07.1] 07/03/2020 12/06/2020 Erectile dysfunction [N52.9] 06/21/2021 10/27/2024 Urinary frequency [R35.0] 06/21/2021 Anemia [D64.9] 12/27/2021 Positive colorectal cancer screening using [place]*01/03/2023 02/26/2024 Elevated PSA [R97.20] 01/09/2023 10/27/2024 New onset atrial fibrillation (HCC) [I48.91] 06/23/2023 10/21/2023 Obesity, Class I, BMI 30-34.9 [E66.811] 07/24/2023 Paroxysmal atrial fibrillation (HCC) [I48.0] 10/21/2023 At risk for stroke [Z91.89] 10/21/2023 01/04/2025 Anticoagulant long-term use [Z79.01] 10/21/2023 Peripheral vascular disease, unspecified (HCC) *10/16/2023 Rectal mass [K62.89] 12/04/2023 02/26/2024 Prostate cancer (HCC) [C61] 02/13/2024 Obstructive uropathy [N13.9] 02/26/2024 10/27/2024 Preop testing [Z01.818] 03/05/2024 04/23/2024 Bilateral hydronephrosis [N13.30] 03/08/2024 01/04/2025 Acute urinary retention [R33.8] 03/24/2024 10/27/2024 Gastroesophageal reflux disease [K21.9] 05/21/2024 Postnasal drip [R09.82] 10/27/2024 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 Thank you Jacob Monique APRN.CNP 02/22/2025 3:34 PM Signed Order signed. Jacob Jenkins APRN.CNP Allergies As of Date: 02/22/2025 Noted Allergy Reaction LATEX 03/15/2024 2 - Rash Date Reviewed: 02/22/2025 Reviewed by: Pina Schuster - Fully Assessed Reason for Visit: Orders [681] Primary Visit Diagnosis:Prostate cancer (HCC) [C61] Order(s):PROSTATE-SPECIFIC ANTIGEN DIAGNOSTIC [SQPSA] Order #: [id number] FUTURE Prescriptions as of 02/23/2025 - prochlorperazine (COMPAZINE) 10 mg tablet Take 1 tablet by mouth every 6 hours as needed. - pantoprazole DR (PROTONIX) 20 mg tablet Take 1 tablet by mouth once daily. - ondansetron orally disintegrating (ZOFRAN ODT) 8 mg disintegrating tablet Take 1 tablet by mouth every 8 hours as needed for nausea/vomiting. - valACYclovir (VALTREX) 500 mg tablet Take 1 tablet by mouth once daily. - levothyroxine (SYNTHROID) 125 mcg tablet Take 1 tablet by mouth once daily. - multivit-minerals/folic acid (MULTIVITAMIN GUMMIES PO) Take 2 pieces of gum by mouth q 12 HR. - cyclobenzaprine (FLEXERIL) 10 mg tablet Take 1 tablet by mouth two times a day as needed for muscle spasm. - atorvastatin (LIPITOR) 40 mg tablet Take 1 tablet by mouth daily at bedtime. - hydrOXYzine HCl (ATARAX) 25 mg tablet Take 1 tablet by mouth daily at bedtime. - losartan (COZAAR) 100 mg tablet Take 1 tablet by mouth once daily. - tamsulosin (FLOMAX) 0.4 mg Take 2 capsules by mouth daily at bedtime. - fluticasone (FLONASE) 50 mcg/actuation nasal spray Use 1 spray in each nostril daily at bedtime. - amLODIPine (NORVASC) 5 mg tablet Take 1 tablet by mouth once daily. - enzalutamide (XTANDI) 80 mg tablet Take 2 tablets (160 mg) by mouth once daily. - apixaban (ELIQUIS) 5 mg tab(s) Take 1 tablet by mouth two times a day. 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] 03/08/2014 05/23/2015 Hypothyroidism [E03.9] 07/21/2014 Herpes infection [B00.9] 05/23/2015 Muscle spasm of back [M62.830] 05/23/2015 Impaired fasting glucose [R73.01] 12/19/2016 Obesity, Class I, BMI 30-34.9 [E66.811] 01/29/2019 06/02/2020 Obesity, Class II, BMI 35-39.9 [E66.812] 06/02/2020 10/25/2023 COVID-19 virus infection [U07.1] 07/03/2020 12/06/2020 Erectile dysfunction [N52.9] 06/21/2021 10/27/2024 Urinary frequency [R35.0] 06/21/2021 Anemia [D64.9] 12/27/2021 Positive colorectal cancer screening using [place]*01/03/2023 02/26/2024 Elevated PSA [R97.20] 01/09/2023 10/27/2024 New onset atrial fibrillation (HCC) [I48.91] 06/23/2023 10/21/2023 Obesity, Class I, BMI 30-34.9 [E66.811] 07/24/2023 Paroxysmal atrial fibrillation (HCC) [I48.0] 10/21/2023 At risk for stroke [Z91.89] 10/21/2023 01/04/2025 Anticoagulant long-term use [Z79.01] 10/21/2023 Peripheral vascular disease, unspecified (HCC) *10/16/2023 Rectal mass [K62.89] 12/04/2023 02/26/2024 Prostate cancer (HCC) [C61] 02/13/2024 Obstructive uropathy [N13.9] 02/26/2024 10/27/2024 Preop testing [Z01.818] 03/05/2024 04/23/2024 Bilateral hydronephrosis [N13.30] 03/08/2024 01/04/2025 Acute urinary retention [R33.8] 03/24/2024 10/27/2024 Gastroesophageal reflux disease [K21.9] 05/21/2024 Postnasal drip [R09.82] 10/27/2024 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 Care coord went to [facility]. Please advise. RECOMMENDATION/PLAN: 1. continue GnRH agonist, - hold xtandi for 1 week to see if improvement in symptoms - will reach out by phone either next Friday or Friday Bouchra Fortune RN 02/21/2025 3:55 PM Signed Spoke with Pina last week. She plans to call him tomorrow, 02/22/25. WOODY Harper Cathleen, RN 02/22/2025 1:47 PM Signed See OV note from today. Chelsea Fortune RN Allergies As of Date: 02/21/2025 Noted Allergy Reaction LATEX 03/15/2024 2 - Rash Date Reviewed: 02/11/2025 Reviewed by: Pina Schuster - Fully Assessed Prescriptions as of 02/22/2025 - prochlorperazine (COMPAZINE) 10 mg tablet Take 1 tablet by mouth every 6 hours as needed. - pantoprazole DR (PROTONIX) 20 mg tablet Take 1 tablet by mouth once daily. - ondansetron orally disintegrating (ZOFRAN ODT) 8 mg disintegrating tablet Take 1 tablet by mouth every 8 hours as needed for nausea/vomiting. - valACYclovir (VALTREX) 500 mg tablet Take 1 tablet by mouth once daily. - levothyroxine (SYNTHROID) 125 mcg tablet Take 1 tablet by mouth once daily. - multivit-minerals/folic acid (MULTIVITAMIN GUMMIES PO) Take 2 pieces of gum by mouth q 12 HR. - cyclobenzaprine (FLEXERIL) 10 mg tablet Take 1 tablet by mouth two times a day as needed for muscle spasm. - atorvastatin (LIPITOR) 40 mg tablet Take 1 tablet by mouth daily at bedtime. - hydrOXYzine HCl (ATARAX) 25 mg tablet Take 1 tablet by mouth daily at bedtime. - losartan (COZAAR) 100 mg tablet Take 1 tablet by mouth once daily. - tamsulosin (FLOMAX) 0.4 mg Take 2 capsules by mouth daily at bedtime. - fluticasone (FLONASE) 50 mcg/actuation nasal spray Use 1 spray in each nostril daily at bedtime. - amLODIPine (NORVASC) 5 mg tablet Take 1 tablet by mouth once daily. - enzalutamide (XTANDI) 80 mg tablet Take 2 tablets (160 mg) by mouth once daily. - apixaban (ELIQUIS) 5 mg tab(s) Take 1 tablet by mouth two times a day. 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] 03/08/2014 05/23/2015 Hypothyroidism [E03.9] 07/21/2014 Herpes infection [B00.9] 05/23/2015 Muscle spasm of back [M62.830] 05/23/2015 Impaired fasting glucose [R73.01] 12/19/2016 Obesity, Class I, BMI 30-34.9 [E66.811] 01/29/2019 06/02/2020 Obesity, Class II, BMI 35-39.9 [E66.812] 06/02/2020 10/25/2023 COVID-19 virus infection [U07.1] 07/03/2020 12/06/2020 Erectile dysfunction [N52.9] 06/21/2021 10/27/2024 Urinary frequency [R35.0] 06/21/2021 Anemia [D64.9] 12/27/2021 Positive colorectal cancer screening using [place]*01/03/2023 02/26/2024 Elevated PSA [R97.20] 01/09/2023 10/27/2024 New onset atrial fibrillation (HCC) [I48.91] 06/23/2023 10/21/2023 Obesity, Class I, BMI 30-34.9 [E66.811] 07/24/2023 Paroxysmal atrial fibrillation (HCC) [I48.0] 10/21/2023 At risk for stroke [Z91.89] 10/21/2023 01/04/2025 Anticoagulant long-term use [Z79.01] 10/21/2023 Peripheral vascular disease, unspecified (HCC) *10/16/2023 Rectal mass [K62.89] 12/04/2023 02/26/2024 Prostate cancer (HCC) [C61] 02/13/2024 Obstructive uropathy [N13.9] 02/26/2024 10/27/2024 Preop testing [Z01.818] 03/05/2024 04/23/2024 Bilateral hydronephrosis [N13.30] 03/08/2024 01/04/2025 Acute urinary retention [R33.8] 03/24/2024 10/27/2024 Gastroesophageal reflux disease [K21.9] 05/21/2024 Postnasal drip [R09.82] 10/27/2024 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) *01/04/2025 Stage 3a chronic kidney disease (HCC) [N18.31] 01/04/2025 Encounter Status:Closed by BOUCHRA FORTUNE on 02/22/25 [facility] CNOVSSacha 02-11-2025 CNOVSP Visit (SP) Office (H EMAWS) -- CLINT VILLAR ([id number]) 1940 M Date Time Provider Department 02/11/25 2:00 PM PINA SCHUSTER During your visit today, we recorded the following information about you: Temperature Pulse Blood pressure Weight 97.3 degrees 51/minute 157/82 90.7 kg Pina Schuster 02/11/2025 4:27 PM Signed Clint Villar 1940 02/11/2025 HISTORY OF PRESENT ILLNESS: Clint Villar is a 84 year old male in excellent health had a cologuard come back positive. A colonography CT scan was done that showed retroperitoneal adenopathy, enlarged prostate gland and possible rectal mass. Colonoscopy was negative for rectal mass. Saw urology PSA 73.59 (was 71 in January 2023). Prostate enlarged and firm. Biopsy of prostate is planned for mid January. 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 Reviewed case also with Dr Aguilar. Met in follow up, reviewed prostate biopsy shows adenocarcinoma. Bone scan focally positive. Retro peritoneal adenopathy. Bone scan shows osseous mets PSA now normal, we see improvement in adenopathy, hydronephrosis Recurrent UTI since stent placement. Lupron started 02-27-24. Enzalutamide started 07-09-24 11-12-24 follow up, feels tired. Planning to retire soon. Interval Hx: Reports worsening headaches, nausea, lightheadedness, fatigue over the last few months. He felt to be related to xtandi. Has been taking zofran with xtandi, but hasn't helped much. No new aches or pains. No changes in bladder, habits if anything its getting better less nocturia. Constipation has been an ongoing issues. No Shortness of Breath, CP, or palpitations. No tooth issues. No hematuria or hematochezia. CLINICAL IMPRESSION: Prostate cancer on biopsy, stage IV PSA improved on GnRH agonist - reviewed today RECOMMENDATION/PLAN: 1. continue GnRH agonist, - hold xtandi for 1 week to see if improvement in symptoms - will reach out by phone either next Friday or Friday 2. Will discuss adding bisphosphonate depending on kidney fxn. - CMP pending today, but improvement noted in 11/2024 - reviewed with him today -will need dental clearance. Advised to call with any questions or concerns in the meantime. 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 PAST SURGICAL HISTORY 2005: OPEN REPAIR OF ROTATOR CUFF ACUTE; Right Comment: Rotator cuff repair, right 1950s: TONSILLECTOMY PRIMARY/SECONDARY Comment: Tonsillectomy FAMILY HISTORY Problem Relation Age of Onset other (Other) Mother no contact Coronary Artery Disease Father Heart Failure Father Diabetes Father Cancer Paternal Grandfather Cancer Half-brother Social History Tobacco Use Smoking status: Former Types: Cigarettes Smokeless tobacco: Never Tobacco comments: Pt smoked 1 pack daily x 20 years, Vaping Use Vaping status: Never Used Substance Use Topics Alcohol use: Yes Alcohol/week: 1.0 standard drink of alcohol Types: 1 Cans of beer per week Drug use: Never ALLERGIES: ALLERGIES No Known Allergies CURRENT OUTPATIENT MEDICATIONS: levothyroxine (SYNTHROID) 112 mcg tablet Take 1 tablet by mouth once daily. Take on empty stomach. For thyroid finasteride (PROSCAR) 5 mg tablet Take 1 tablet by mouth once daily apixaban (ELIQUIS) 5 mg tab(s) Take 1 tablet by mouth two times a day. metoprolol tartrate, short acting, (LOPRESSOR) 50 mg tablet Take 1 tablet by mouth two times a day. amLODIPine (NORVASC) 5 mg tablet Take 1 tablet by mouth once daily. hydrOXYzine HCl (ATARAX) 25 mg tablet Take 1 tablet by mouth daily at bedtime. losartan (COZAAR) 100 mg tablet Take 1 tablet by mouth once daily. valACYclovir (VALTREX) 500 mg tablet Take 1 tablet by mouth once daily. atorvastatin (LIPITOR) 40 mg tablet Take 1 tablet by mouth daily at bedtime. tamsulosin (FLOM (more content not included)... Normal [facility] Comprehensive metabolic 2000 panelon 02-11-2025 Albumin [Mass/Vol] 4.0 g/dL Normal 3.9-4.9 [facility] Comment on above: Order Comment: Speci men Type: BLOOD SPECIMEN Ordering Facility: [facility] Address: [address] [place] [address] Performed By: #### 2 4321-2 #### [facility] [id number] [address] [place] [address] [place] ALP [Catalytic activity/Vol] 60 U/L Normal 38-113 [facility] Comment on above: Order Comment: Speci men Type: BLOOD SPECIMEN Ordering Facility: [facility] Address: [address] [place] [address] Performed By: #### 2 4321-2 #### [facility] [id number] [address] [place] [address] [place] ALT [Catalytic activity/Vol] 6 U/L Low 10-54 [facility] Comment on above: Order Comment: Speci men Type: BLOOD SPECIMEN Ordering Facility: [facility] Address: [address] [place] [address] Performed By: #### 2 4321-2 #### [facility] [id number] [address] [place] [address] [place] Anion gap [Moles/Vol] 12 mmol/L Normal 8-15 [facility] Comment on above: Order Comment: Speci men Type: BLOOD SPECIMEN Ordering Facility: [facility] Address: [address] [place] [address] Performed By: #### 2 4321-2 #### [facility] CL[facility] [id number] [address] [place] [address] [place] AST [Catalytic activity/Vol] 12 U/L Low 14-40 [facility] Comment on above: Order Comment: Speci men Type: BLOOD SPECIMEN Ordering Facility: [facility] Address: [address] [place] [address] Performed By: #### 2 4321-2 #### [facility] CLIA [id number] [address] [place] [address] [place] Bilirubin [Mass/Vol] 0.3 mg/dL Normal 0.2-1.3 [facility] Comment on above: Order Comment: Speci men Type: BLOOD SPECIMEN Ordering Facility: [facility] Address: [address] [place] [address] Performed By: #### 2 4321-2 #### [facility] CLIA [id number] [address] [place] [address] [place] Calcium [Mass/Vol] 9.6 mg/dL Normal 8.5-10.2 [facility] Comment on above: Order Comment: Speci men Type: BLOOD SPECIMEN Ordering Facility: [facility] Address: [address] [place] [address] Performed By: #### 2 4321-2 #### [facility] CLIA [id number] [address] [place] [address] [place] Chloride [Moles/Vol] 101 mmol/L Normal 98-107 [facility] Comment on above: Order Comment: Speci men Type: BLOOD SPECIMEN Ordering Facility: [facility] Address: [address] [place] [address] Performed By: #### 2 4321-2 #### [facility] CLIA [id number] [address] [place] [address] [place] CO2 [Moles/Vol] 21 mmol/L Low 22-30 [facility] Comment on above: Order Comment: Speci men Type: BLOOD SPECIMEN Ordering Facility: [facility] Address: [address] [place] [address] Performed By: #### 2 4321-2 #### [facility] CLIA [id number] [address] [place] [address] [place] Creatinine [Mass/Vol] 1.39 mg/dL High 0.73-1.22 [facility] Comment on above: Order Comment: Speci men Type: BLOOD SPECIMEN Ordering Facility: [facility] Address: [address] [place] [address] Performed By: #### 2 4321-2 #### [facility] [id number] [address] [place] [address] [place] eGFRcr SerPlBld CKD-EPI 2020 51 mL/min/1.73m??? Low >=60 [facility] Comment on above: Order Comment: Speci men Type: BLOOD SPECIMEN Ordering Facility: [facility] Address: [address] [place] [address] Result Comment: Karin mated Glomerular Filtration Rate (eGFR) is calculated using the 2020 CKD-EPI creatinine equation. This equation utilizes serum creatinine, sex, and age as parameters. The creatinine assay has traceable calibration to isotope dilution-mass spectrometry. Refer to KDIGO guidelines for clinical interpretation. In patients with unstable renal function, e.g. those with acute kidney injury, the eGFR may not accurately reflect actual GFR. Performed By: #### 2 4321-2 #### [facility] CLIA [id number] [address] [place] [address] [place] Glucose [Mass/Vol] 103 mg/dL High 74-99 [facility] Comment on above: Order Comment: Speci men Type: BLOOD SPECIMEN Ordering Facility: [facility] Address: [address] [place] [address] Result Comment: The [place] [employer] (ADA) provides guidance for cutoff values for fasting glucose and random glucose. The ADA defines fasting as no caloric intake for at least 8 hours. Fasting plasma glucose results between 100 to 125 mg/dL indicate increased risk for diabetes (prediabetes). Fasting plasma glucose results greater than or equal to 126 mg/dL meet the criteria for diagnosis of diabetes. In the absence of unequivocal hyperglycemia, results should be confirmed by repeat testing. In a patient with classic symptoms of hyperglycemia or hyperglycemic crisis, random plasma glucose results greater than or equal to 200 mg/dL meet the criteria for diagnosis of diabetes. Reference: Standards of Medical Care in Diabetes 2016, [place] [employer]. Diabetes Care. 2016.39(Suppl 1). Performed By: #### 2 4321-2 #### [facility] CLIA [id number] [address] [place] [address] [place] Potassium [Moles/Vol] 3.9 mmol/L Normal 3.7-5.1 [facility] Comment on above: Order Comment: Speci men Type: BLOOD SPECIMEN Ordering Facility: [facility] Address: [address] [place] [address] Performed By: #### 2 4321-2 #### [facility] [id number] [address] [place] [address] [place] Protein [Mass/Vol] 7.1 g/dL Normal 6.3-8.0 [facility] Comment on above: Order Comment: Speci men Type: BLOOD SPECIMEN Ordering Facility: [facility] Address: [address] [place] [address] Performed By: #### 2 4321-2 #### [facility] CLIA [id number] [address] [place] [address] [place] Sodium [Moles/Vol] 134 mmol/L Low 136-144 [facility] Comment on above: Order Comment: Speci men Type: BLOOD SPECIMEN Ordering Facility: [facility] Address: [address] [place] [address] Performed By: #### 2 4321-2 #### [facility] CLIA [id number] [address] [place], [place] [id number] [place] Urea nitrogen [Mass/Vol] 24 mg/dL Normal 9-24 [facility] Comment on above: Order Comment: Speci men Type: BLOOD SPECIMEN Ordering Facility: [facility] Address: [address] [place] [address] Performed By: #### 2 4321-2 #### [facility] CLIA [id number] [address] [place] [address] [place] PSA [facility]2025 Prostate specific Ag [Mass/Vol] 0.30 ng/mL Normal <2.60 [facility] Comment on above: Order Comment: Speci men Type: BLOOD SPECIMEN Ordering Facility: [facility] Address: [address] [place] [address] Result Comment: Tota l PSA test methodology used is the Electrochemiluminescence Immunoassay by [employer]. Total PSA values by differing methodologies cannot be interchanged. Performed By: #### 2 857-1 #### [facility] CLIA [id number] [address] [place] CNOVon 01-04-2025 CNOV Office Visit (INTMWS ) -- CLINT VILLAR ([id number]) 1940 Krist[place] Date Time Provider Department 01/04/25 9:20 AM CODY CARRINGTON INTMWS During your visit today, we recorded the following information about you: Pulse Blood pressure Weight Height 47/minute 138/75 90.3 kg 1.67 m Cody Carrington MD 01/04/2025 10:28 AM Signed Clint Salmeron Jian is a 84 year old male here for a Medicare wellness visit. Medicare Health Risk Assessment General Health Fair Exercise: Minutes/Day 20 min Exercise: Days/Week 3 days Alcohol: Daily Use Never Alcohol: Drinks/Day Patient does not drink Alcohol: 6 or more drinks Never Feel off balance Yes Concerns: Teeth/Dentures No Concerns: Sexual function No Troubled by feelings None of the above Frequency: Eating healthy diet Nearly every day ADLs requiring help None of the above Safety precautions in home/vehicle Yes Smoke, vape, chews tobacco No Difficulty hearing Yes Difficulty seeing No Current Providers Specialists: I have reviewed specialist-related care of the patient in the medical record. Current care team: Patient Care Team: Cody Carrington MD as PCP - General (Internal Medicine) Johan Payne MD (Hematology/Oncology) Leela Drake, DISTRIBUTION SPEC.[employer]ATION ATTENDANT as [place] (Internal Medicine) Radha Larsen MD (Urology) Rodolfo Aguilar MD (Radiation Oncology) Outside specialists seen: Sruthi Larkin as Specialty Medical Sonographer (Cardiology) Medical/Family history review Reviewed and updated problem list, medical/surgical/family/so cial history, medications, and allergies. Opioid use review Opioid Medications (last 90 days) No data to display Anxiety/Depression screening Recommendation: no further intervention at this time Cognitive screening Mini Cog Score: 5 Cognitive screening reviewed and No further action needed (score 3-5). Functional Observation Was the patient's Timed Up AND Go test unsteady or >= 12 seconds? No Advance Care Planning Patient was not able to provide a surrogate decision maker or written advance directives Measurements BP 138/75 (BP Site: Left Arm, BP Position: Sitting, BP Cuff Size: Large Adult) Pulse (!) 47 Ht 167 cm (5' 5.75) Wt 90.3 kg (199 lb 1.2 oz) BMI 32.38 kg/m? Vision Screening: Follows with optometry/ophthalmology Right: 20/30 Left: 20/ 50 Both: 20/40 Assessment/Plan Medicare annual wellness visit, subsequent (Z00.00) - Counseled on healthy diet and regular exercise - Fall avoidance information provided - Personalized prevention plan provided - Discussed need for and benefit of weight loss. BMI 32.38 kg/(m2) - Vaccine recommendations reviewed. Get from the pharmacy. MD Zeb Bowen Victor H, MD 01/04/2025 10:12 AM Signed Screening schedule The following prevention plan is recommended: Medicare Annual Wellness Visit Never done DTaP,Tdap,Td Vaccine(1 - Tdap) due on 06/10/2014 RSV Vaccine(1 - 1-dose 75+ series) Never done Advance Directive Discussion due on 05/05/2024 Influenza Vaccine(1) due on 01/03/2025 WHAT YOU CAN DO TO PREVENT FALLS Many falls can be prevented. By making some changes, you can lower your chances of falling. Four things YOU can do to prevent falls for you* and your caregiver 1. Begin a regular exercise program Exercise is one of the most important ways to lower your chances of falling. It makes you stronger and helps you feel better. Exercises that improve balance and coordination (like Zoran Chi) are the most helpful. Lack of exercise leads to weakness and increases your chances of falling. Ask your doctor or health care provider about the best type of exercise program for you. 2. Have your health care provider review your medicines Have your doctor or pharmacist review all the medicines you take, even pxvw-gyg-ivuotcc medicines. As you get older, the way medicines work in your body can change. Some medicines, or combinations of medicines, can make you sleepy or dizzy and can cause you to fall. 3. Have your vision checked Have your eyes checked by an eye doctor at least once a year. You may be wearing the wrong glasses or have a condition like glaucoma or cataracts that limits your vision. Poor vision can increase your chances of falling. 4. Make your home safer About half of all falls happen at home. To make your home safer: Remove things you can trip over (like papers, books, clothes, and shoes) from stairs and places where you walk. Remove small throw rugs or use double-sided tape to keep the rugs from slipping. Keep items you use often in cabinets you can reach easily without using a step stool. Have grab bars put in next to your toilet and in the tub or shower. Use non-slip mats in the bathtub and on shower floors. Improve the lighting in your home. As you get older, you need brighter lights to see well. Bobo (more content not included)... Normal [facility] Cardiology Visit Reporton Cardiology Visit Report [facility] [address] [place], [place] [address] OFFICE VISIT Date of Service: 11/22/24 MR#: [id number] Acct: [id number] Name: CLINT VILLAR Rep #: [id number] : 1940 Provider: Dr. Sruthi jeffers MD Age/Sex: 84/M Location: [facility] Status: Signed HPI HPI History of Present Illness Details: Pleasant 84-year-old white male here for monitoring of his cardiovascular status. Patient carries a history of paroxysmal atrial fibs. He was evaluated back in June 2023 at [facility] where he was admitted. He was treated with beta-mague therapy and Eliquis and spontaneously converted to sinus rhythm. The patient is well aware when he goes into atrial fibrillation he denies having any atrial fibrillation in the last 6 months. He actually has been seen by Dr. Barrera at [facility] And he was evaluated there for treatment options. He opted for beta-mague and Eliquis therapy. Patient also carries a history of the lower extremity claudication his ABIs were 1.11 on the right and 1.09 on the left. He has a history of hypothyroidism on replacement. He also has a history of hyperlipidemia which is well-controlled and at goal his blood pressure is slightly elevated in the office today and it is monitored through his primary service. In the ambulatory setting the patient's heart rate had been in the 40 bpm range. His metoprolol was discontinued. ECG done in the office today shows sinus bradycardia at 53 bpm with occasional PVC. Otherwise it is normal. The patient's echocardiogram done June 17, 2023 showed normal LV size with an EF of 60% no evidence of diastolic dysfunction no regional wall motion abnormalities. RV was normal. The left atrium was moderately enlarged there was a normal size right atrium there was no Doppler evidence of ASD. Patient had no significant mitral or tricuspid valve disease. There was trivial aortic insufficiency and no significant pulmonary valve disease. The patient was evaluated subsequently July 01, 2023 in the ambulatory setting at [facility]. No EKG was done but he was said to be regular sinus rhythm. Patient has been recently diagnosed with prostate cancer that had metastasized to the lymph nodes and bone. He is on immunologic therapy and hormone suppressive therapy. 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: No Accompanied by: Self Is patient in pain?: No Allergies No Known Allergies Allergy (Verified 11/22/24 13:53) Medications ???Medication ???Instructions ???Recorded ???Confirmed ???Type atorvastatin 40 mg tablet 40 mg PO QHS cholesterol 07/08/19 11/22/24 History losartan 100 mg tablet 100 mg PO QHS bp 07/08/19 11/22/24 History valacyclovir 500 mg tablet 500 mg PO DAILY herpes 07/03/20 History hydroxyzine HCl 25 mg tablet 25 mg PO QHS anxiety 06/16/23/05/29 History tamsulosin 0.4 mg capsule 0.4 mg PO BID prostate 06/16/23 History amlodipine 10 mg tablet 5 mg (1/2 x 10 mg) PO DAILY blood 06/17/23 11/22/24 Rx pressure #1 TAB finasteride 5 mg tablet 5 mg PO DAILY 09/22/23 11/22/24 Hi story levothyroxine 112 mcg tablet 112 mcg PO DAILY 09/22/23 11/22/24 History (Synthroid) ondansetron 8 mg disintegrating 8 mg PO Q8H PRN PRN nausea/vomitin g 04/15/24 11/22/24 History tablet apixaban 2.5 mg tablet 2.5 mg PO BID #180 tabs 11/22/24 0 11/22/24 Rx enzalutamide 80 mg tablet (Xtandi) 80 mg PO QDAY 11/22/24 11/22/24 History Ejection fraction %: 60 Have you fallen in the past year?: No PFSH Medical History Prostate CA Erectile dysfunction Elevated PSA Atrial fibrillation CKD (chronic kidney disease) Obesity (BMI 30.0-34.9) Anxiety Hypothyroidism Hyperlipidemia BPH (benign prostatic hyperplasia) Hyperglycemia Hypertension Surgical History History of stent insertion of renal artery History of shoulder surgery Family History Other Hyperlipidemia Hypertension Thyroid disorder Social History household members: spouse housing: house Smoking Status: Former smoker alcohol intake: never substance use type: does not use ROS Const Const: Positive for headache(s); Negative for fatigue, weakness, daytime sleepiness or difficulty sleeping (more content not included)... Normal [facility] CBC panel Auto (Bld)on 11-12 Erythrocyte distribution width (RBC) [Ratio] 14.0 % Normal 11.5-15.0 [facility] Comment on above: Order Comment: Speci men Type: BLOOD SPECIMEN Ordering Facility: [facility] Address: [address] [place] [address] Performed By: #### 2 4321-2 #### [facility] CLIA [id number] [address] [place] [address] [place] Hematocrit (Bld) [Volume fraction] 40.4 % Normal 39.0-51.0 [facility] Comment on above: Order Comment: Speci men Type: BLOOD SPECIMEN Ordering Facility: [facility] Address: [address] [place] [address] Performed By: #### 2 4321-2 #### [id number] [address] [place] [address] [place] Hemoglobin (Bld) [Mass/Vol] 13.7 g/dL Normal 13.0-17.0 [facility] Comment on above: Order Comment: Speci men Type: BLOOD SPECIMEN Ordering Facility: [facility] Address: [address] [place] [address] Performed By: #### 2 4321-2 #### [facility] CLIA [id number] [address] [place] [address] [place] MCH (RBC) [Entitic mass] 33.8 pg Normal 26.0-34.0 [facility] Comment on above: Order Comment: Speci men Type: BLOOD SPECIMEN Ordering Facility: [facility] Address: [address] [place], [place] [address] Performed By: #### 2 4321-2 #### [facility] CLIA [id number] [address] [place] [address] [place] MCHC (RBC) [Mass/Vol] 33.9 g/dL Normal 30.5-36.0 [facility] Comment on above: Order Comment: Speci men Type: BLOOD SPECIMEN Ordering Facility: [facility] Address: [address] [place] [address] Performed By: #### 2 4321-2 #### [facility] CLIA [id number] [address] [place] [address] [place] MCV (RBC) [Entitic vol] 99.8 fL Normal 80.0-100.0 [facility] Comment on above: Order Comment: Speci men Type: BLOOD SPECIMEN Ordering Facility: [facility] Address: [address] [place] [address] Performed By: #### 2 4321-2 #### [facility] CLIA [id number] [address] [place] [address] [place] Nucleated RBC (Bld) [#/Vol] 10*3/uL Normal <0.01 [facility] Comment on above: Order Comment: Speci men Type: BLOOD SPECIMEN Ordering Facility: [facility] Address: [address] [place] [address] Performed By: #### 2 4321-2 #### [facility] CLIA [id number] [address] [place] [address] [place] Platelet mean volume (Bld) [Entitic vol] 9.0 fL Normal 9.0-12.7 [facility] Comment on above: Order Comment: Speci men Type: BLOOD SPECIMEN Ordering Facility: [facility] Address: [address] [place] [address] Performed By: #### 2 4321-2 #### [facility] CLIA [id number] [address] [place] [address] [place] Platelets (Bld) [#/Vol] 157 10*3/uL Normal 150-400 [facility] Comment on above: Order Comment: Speci men Type: BLOOD SPECIMEN Ordering Facility: [facility] Address: [address] [place] [address] Performed By: #### 2 4321-2 #### [facility] CLIA [id number] [address] [place] [address] [place] RBC (Bld) [#/Vol] 4.05 10*6/uL Low 4.20-6.00 [facility] Comment on above: Order Comment: Speci men Type: BLOOD SPECIMEN Ordering Facility: [facility] Address: [address] [place] [address] Performed By: #### 2 4321-2 #### [facility] CLIA [id number] [address] [place] [address] [place] WBC (Bld) [#/Vol] 5.15 10*3/uL Normal 3.70-11.00 [facility] Comment on above: Order Comment: Speci men Type: BLOOD SPECIMEN Ordering [facility] Address: [address] [place] [address] Performed By: #### 2 4321-2 #### [facility] [id number] [address] [place] [address] [place] CNOVSPon 11-12-2024 CNOVSP [facility] CLINT VILLAR ([id number]) 1940 M Date Time Provider Department 11/12/24 8:50 AM JOHAN PAYNE During your visit today, we recorded the following information about you: Temperature Pulse Blood pressure Weight 97.2 degrees 51/minute 151/79 90.9 kg Height 1.67 m Johan Payne MD 11/12/2024 10:16 AM Signed (Elements copied from my note dated July 09, 2024, have been reviewed and updated where appropriate, and all reflect current assessment and medical decision making from today's encounter, November 12, 2024) HISTORY OF PRESENT ILLNESS: Clint Villar is a 84 year old male in excellent health had a cologuard come back positive. A colonography CT scan was done that showed retroperitoneal adenopathy, enlarged prostate gland and possible rectal mass. Colonoscopy was negative for rectal mass. Saw urology PSA 73.59 (was 71 in January 2023). Prostate enlarged and firm. Biopsy of prostate is planned for mid January. 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 Reviewed case also with Dr Aguilar. Met in follow up, reviewed prostate biopsy shows adenocarcinoma. Bone scan focally positive. Retro peritoneal adenopathy. Bone scan shows osseous mets PSA now normal, we see improvement in adenopathy, hydronephrosis Recurrent UTI since stent placement. Lupron started 02-27-24. Enzalutamide started 07-09-24 11-12-24 follow up, feels tired. Planning to retire soon. CLINICAL IMPRESSION: Prostate cancer on biopsy, stage IV PSA improved on GnRH agonist RECOMMENDATION/PLAN: 1. continue GnRH agonist, enzalutamide. 2. Will discuss adding bisphosphonate depending on how creatinine goes. Written and verbal health teaching given to patient, patient verbalizes understanding and agrees with treatment plan. 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 PAST SURGICAL HISTORY 2005: OPEN REPAIR OF ROTATOR CUFF ACUTE; Right Comment: Rotator cuff repair, right 1950s: TONSILLECTOMY PRIMARY/SECONDARY Comment: Tonsillectomy FAMILY HISTORY Problem Relation Age of Onset other (Other) Mother no contact Coronary Artery Disease Father Heart Failure Father Diabetes Father Cancer Paternal Grandfather Cancer Half-brother Social History Tobacco Use Smoking status: Former Types: Cigarettes Smokeless tobacco: Never Tobacco comments: Pt smoked 1 pack daily x 20 years, Vaping Use Vaping status: Never Used Substance Use Topics Alcohol use: Yes Alcohol/week: 1.0 standard drink of alcohol Types: 1 Cans of beer per week Drug use: Never ALLERGIES: ALLERGIES No Known Allergies CURRENT OUTPATIENT MEDICATIONS: levothyroxine (SYNTHROID) 112 mcg tablet Take 1 tablet by mouth once daily. Take on empty stomach. For thyroid finasteride (PROSCAR) 5 mg tablet Take 1 tablet by mouth once daily apixaban (ELIQUIS) 5 mg tab(s) Take 1 tablet by mouth two times a day. metoprolol tartrate, short acting, (LOPRESSOR) 50 mg tablet Take 1 tablet by mouth two times a day. amLODIPine (NORVASC) 5 mg tablet Take 1 tablet by mouth once daily. hydrOXYzine HCl (ATARAX) 25 mg tablet Take 1 tablet by mouth daily at bedtime. losartan (COZAAR) 100 mg tablet Take 1 tablet by mouth once daily. valACYclovir (VALTREX) 500 mg tablet Take 1 tablet by mouth once daily. atorvastatin (LIPITOR) 40 mg tablet Take 1 tablet by mouth daily at bedtime. tamsulosin (FLOMAX) 0.4 mg Take 2 capsules by mouth daily at bedtime. cyclobenzaprine (FLEXERIL) 10 mg tablet Take 1 tablet by mouth twice daily as needed for muscle spasm. levoFLOXacin (LEVAQUIN) 750 mg tablet Take 1 tablet by mouth once daily. Start the day before the biopsy REVIEW OF SYSTEMS: GENERAL: No fever, night sweats, weight loss or malaise. All other reviewed and negative other than HPI. PHYSICAL EXAMINATION: (more content not included)... Normal [facility] Comprehensive metabolic 2000 panelon 11-12-2024 Albumin [Mass/Vol] 4.3 g/dL Normal 3.9-4.9 [facility] Comment on above: Order Comment: Speci men Type: BLOOD SPECIMEN Order[facility] Address: [address] [place] [address] Performed By: #### 2 857-1 #### [facility] CLIA [id number] [address] STATES OF [facility] ALP [Catalytic activity/Vol] 48 U/L Normal 38-113 [facility] Comment on above: Order Comment: Speci men Type: BLOOD SPECIMEN Ordering Facility: [facility] Address: [address] [place] [address] Performed By: #### 2 857-1 #### [facility] CLIA [id number] [address] [place] [facility] ALT [Catalytic activity/Vol] 8 U/L Low 10-54 [facility] Comment on above: Order Comment: Speci men Type: BLOOD SPECIMEN Ordering Facility[facility] Address: [address] [place] [address] Performed By: #### 2 857-1 #### [facility] CLIA [id number] [address] [place] Anion gap [Moles/Vol] 12 mmol/L Normal 8-15 [facility] Comment on above: Order Comment: Speci men Type: BLOOD SPECIMEN Ordering Facility: [facility] Address: [address] [place] [address] Performed By: #### 2 857-1 #### [facility] CLIA [id number] [address] [place] [address] [place] AST [Catalytic activity/Vol] 14 U/L Normal 14-40 [facility] Comment on above: Order Comment: Speci men Type: BLOOD SPECIMEN Ordering Facility[facility] Address: [address] [place] [address] Performed By: #### 2 857-1 #### [facility] CLIA [id number] [address] [place] [address] [place] Bilirubin [Mass/Vol] 0.4 mg/dL Normal 0.2-1.3 [facility] Comment on above: Order Comment: Speci men Type: BLOOD SPECIMEN Ordering Facility[facility] Address: [address] [place] [address] Performed By: #### 2 857-1 #### [facility] CLIA [id number] [address] [place] [address] [place] Calcium [Mass/Vol] 10.4 mg/dL High 8.5-10.2 [facility] Comment on above: Order Comment: Speci men Type: BLOOD SPECIMEN Ordering Facility[facility] Address: [address] [place] [address] Performed By: #### 2 857-1 #### [facility] CLIA [id number] [address] [place] [address] [place] Chloride [Moles/Vol] 101 mmol/L Normal 98-107 [facility] Comment on above: Order Comment: Speci men Type: BLOOD SPECIMEN Order[facility] Facility[facility] Address: [address] [place] [address] Performed By: #### 2 857-1 #### [facility] CLIA [id number] [address] [place] [address] [place] CO2 [Moles/Vol] 24 mmol/L Normal 22-30 [facility] Comment on above: Order Comment: Speci men Type: BLOOD SPECIMEN Order[facility] Facility[facility] Address: [address] [place] [address] Performed By: #### 2 857-1 #### [facility] CLIA [id number] [address] [place] [address] [place] Creatinine [Mass/Vol] 1.52 mg/dL High 0.73-1.22 [facility] Comment on above: Order Comment: Franny zavala Type: BLOOD SPECIMEN Ordering Facility: [facility] Address: [address] [place] [address] Performed By: #### 2 857-1 #### [facility] CLIA [id number] [address] [place] Creatinine and Glomerular filtration rate.predicted panel (S/P/Bld) 45 mL/min/1.73m??? Low >=60 [facility] Comment on above: Order Comment: Franny zavala Type: BLOOD SPECIMEN Ordering Facility: [facility] Address: [address] [place] [address] Result Comment: Karin mated Glomerular Filtration Rate (eGFR) is calculated using the 2020 CKD-EPI creatinine equation. This equation utilizes serum creatinine, sex, and age as parameters. The creatinine assay has traceable calibration to isotope dilution-mass spectrometry. Refer to KDIGO guidelines for clinical interpretation. In patients with unstable renal function, e.g. those with acute kidney injury, the eGFR may not accurately reflect actual GFR. Performed By: #### 2 857-1 #### [facility] CLIA [id number] [address] [place] [address] [place] Glucose [Mass/Vol] 111 mg/dL High 74-99 [facility] Comment on above: Order Comment: Franny zavala Type: BLOOD SPECIMEN Order[facility] Address: [address] [place] [address] Result Comment: The [place] Diabetes Association (ADA) provides guidance for cutoff values for fasting glucose and random glucose. The ADA defines fasting as no caloric intake for at least 8 hours. Fasting plasma glucose results between 100 to 125 mg/dL indicate increased risk for diabetes (prediabetes). Fasting plasma glucose results greater than or equal to 126 mg/dL meet the criteria for diagnosis of diabetes. In the absence of unequivocal hyperglycemia, results should be confirmed by repeat testing. In a patient with classic symptoms of hyperglycemia or hyperglycemic crisis, random plasma glucose results greater than or equal to 200 mg/dL meet the criteria for diagnosis of diabetes. Reference: Standards of Medical Care in Diabetes 2016, [place] [employer] Association. Diabetes Care. 2016.39(Suppl 1). Performed By: #### 2 857-1 #### [facility] CLIA [id number] [address] [place] Potassium [Moles/Vol] 4.2 mmol/L Normal 3.7-5.1 [facility] Comment on above: Order Comment: Speci men Type: BLOOD SPECIMEN Ordering Facility: [facility] Address: [address] [place] [address] Performed By: #### 2 857-1 #### [facility] CLIA [id number] [address] [place] Protein [Mass/Vol] 7.4 g/dL Normal 6.3-8.0 [facility] Comment on above: Order Comment: Franny zavala Type: BLOOD SPECIMEN Ordering Facility: [facility] Address: [address] [place] [address] Performed By: #### 2 857-1 #### [facility] CLIA [id number] [address] [place] Sodium [Moles/Vol] 137 mmol/L Normal 136-144 [facility] Comment on above: Order Comment: Celestinai men Type: BLOOD SPECIMEN Ordering Facility: [facility] Address: [address] [place] [address] Performed By: #### 2 857-1 #### [facility] CLIA [id number] 1 [place] [address] [place] Urea nitrogen [Mass/Vol] 35 mg/dL High 9-24 [facility] Comment on above: Order Comment: Celestinai men Type: BLOOD SPECIMEN Ordering Facility: [facility] Address: [address] [place] [address] Performed By: #### 2 857-1 #### [facility] CLIA [id number] 1 [place] [address] [place] HbA1c (Bld)on 11-12-2024 Average glucose Estimated from glycated hemoglobin (Bld) [Mass/Vol] 126 mg/dL Normal [facility] Comment on above: Order Comment: Franny zavala Type: BLOOD SPECIMEN Ordering Facility: [facility] Address: [address] [place] [address] Result Comment: eAG: (Estimated average glucose) is a calculated value from HgbA1c and is sales representative wire rope of the average blood glucose level in the last 2-3 month period. Performed By: #### 5 5454-3 #### [facility] CLIA [id number] [address] [place] [address] [place] HbA1c (Bld) [Mass fraction] 6.0 % High 4.3-5.6 [facility] Comment on above: Order Comment: Franny zavala Type: BLOOD SPECIMEN Ordering Facility: [facility] Address: [address] [place] [address] Result Comment: [place] Diabetes Association guidelines indicate that patients with HgbA1c in the range 5.7-6.4% are at increased risk for development of diabetes, and intervention by lifestyle modification may be beneficial. HgbA1c greater or equal to 6.5% is considered diagnostic of diabetes. Performed By: #### 5 5454-3 #### [facility] CLIA [id number] [address] [place] [address] [place] Lipid 1996 panelon Cholesterol [Mass/Vol] 179 mg/dL Normal <200 [facility] Comment on above: Order Comment: Franny zavala Type: BLOOD SPECIMEN Ordering Facility: [facility] Address: [address] [place] [address] Result Comment: <200 mg/dL, Desirable 200-239 mg/dL, Borderline high >239 mg/dL, High Performed By: #### 2 4321-2 #### [facility] CLIA [id number] 1 [place] [address] [place] Cholesterol in HDL [Mass/Vol] 46 mg/dL Normal >39 [facility] Comment on above: Order Comment: Franny zavala Type: BLOOD SPECIMEN Ordering Facility: [facility] Address: [address] [place] [address] Result Comment: 40-5 9 mg/dL, Acceptable >59 mg/dL, High: Negative risk factor for coronary heart disease <40 mg/dL, Low: Positive risk factor for coronary heart disease Performed By: #### 2 4321-2 #### [facility] CLIA [id number] [address] [place] [address] [place] [facility] Cholesterol in LDL [Mass/Vol] 102 mg/dL High <100 [facility] Comment on above: Order Comment: Franny sally Type: BLOOD SPECIMEN Ordering Facility: [facility] Address: [address] [place] [address] Result Comment: <100 mg/dL, Optimal 100-129 mg/dL, Near optimal/above optimal 130-159 mg/dL, Borderline high 160-189 mg/dL, High >189 mg/dL, Very high Secondary prevention optimal LDL Cholesterol levels are recommended to be <70 mg/dL LDL cholesterol is calculated using the Raza-NIH equation. Performed By: #### 2 4321-2 #### [id number] [address] [place] [address] [place] Cholesterol in LDL/Cholesterol in HDL [Mass ratio] 2.22 {ratio} Normal <2.54 [facility] Comment on above: Order Comment: Franny zavala Type: BLOOD SPECIMEN Ordering Facility: [facility] Address: [address] [place] [address] Result Comment: Refe rence: 1. National Cholesterol Education Program ATP III Guideline At-A-Glance Quick Desk Reference: National Heart, Lung, and Blood [place]. National Institutes of Health. 2001: NIH Publication No. 01-3305. 2. An International Atherosclerosis Society position paper: global recommendations for the management of dyslipidemia: executive summary, Atherosclerosis. 2014: 232(2):410-413. Performed By: #### 2 4321-2 #### [facility] CLIA [id number] [address] [place] [address] [place] Cholesterol in VLDL [Mass/Vol] 30 mg/dL High <30 [facility] Comment on above: Order Comment: Speci men Type: BLOOD SPECIMEN Ordering Facility: [facility] Address: [address] [place], [place] [address] Performed By: #### 2 4321-2 #### [facility] CLIA [id number] [address] [place] [address] [place] Cholesterol non HDL [Mass/Vol] 133 mg/dL High <130 [facility] Comment on above: Order Comment: Speci men Type: BLOOD SPECIMEN Ordering Facility: [facility] Address: [address] [place] [address] Result Comment: <130 mg/dL, Optimal 130-159 mg/dL, Near optimal/above optimal 160-189 mg/dL, Borderline high 190-219 mg/dL, High >219 mg/dL, Very high Secondary prevention optimal non HDL Cholesterol levels are recommended to be <100 mg/dL Performed By: #### 2 4321-2 #### [facility] CLIA [id number] [address] [place] [address] [place] Cholesterol.total/Cho lesterol in HDL [Mass ratio] 3.89 {ratio} Normal <5.10 [facility] Comment on above: Order Comment: Speci men Type: BLOOD SPECIMEN Ordering Facility: [facility] Address: [address] [place] [address] Performed By: #### 2 4321-2 #### [facility] CLIA [id number] [address] [place] [address] [place] FASTING TIME 12 hrs Normal [facility] Comment on above: Order Comment: Speci men Type: BLOOD SPECIMEN Ordering Facility: [facility] Address: [address] [place], [place] [address] Result Comment: 2 Performed By: #### 2 4321-2 #### [facility] CLIA [id number] [address] [place] [address] [place] Triglyceride [Mass/Vol] 181 mg/dL High <150 [facility] Comment on above: Order Comment: Speci men Type: BLOOD SPECIMEN Ordering Facility: [facility] Address: [address] [place] [address] Result Comment: <150 mg/dL, Normal 150-199 mg/dL, Borderline high 200-499 mg/dL, High >499 mg/dL, Very high Performed By: #### 2 4321-2 #### [facility] CLIA [id number] [address] [place] [address] [place] PSA SerPl-mCncon 11-12-2024 Prostate specific Ag [Mass/Vol] 0.41 ng/mL Normal <2.60 [facility] Comment on above: Order Comment: Speci men Type: BLOOD SPECIMEN Ordering Facility: [facility] Address: [address] [place] [address] Result Comment: Tota l PSA test methodology used is the Electrochemiluminescence Immunoassay by [employer]. Total PSA values by differing methodologies cannot be interchanged. Performed By: #### 2 857-1 #### [facility] CLIA [id number] [address] [place] [address] [place] TSH SerPl-aCncon 11-12-2024 TSH Qn 6.820 m[IU]/L High 0.270-4.200 [facility] Comment on above: Order Comment: Speci men Type: BLOOD SPECIMEN Ordering Facility: [facility] Address: [address] [place] [address] Performed By: #### 2 4321-2 #### [facility] CLIA [id number] [address] [place] [address] [place] CNOVon 10-27-2024 CNOV Office Visit (INTMWS ) -- CLINT VILLAR ([id number]) 1940 M Date Time Provider Department 10/27/24 3:20 PM CODY CARRINGTON INTMWS During your visit today, we recorded the following information about you: Pulse Blood pressure Weight 51/minute 150/74 91.4 kg Cody Carrington MD 10/27/2024 4:35 PM Signed This note was created using NoteWriter. Subjective Clint Villar is a 84 year old male. Patient presents with: F/U 6 months Recording using [employer] software for draft documentation of the visit was discussed with the patient/authorized sales representative wire rope; all questions welcomed and answered. Patient/authorized sales representative wire rope agreed to proceed BPH: - Reports improvement in urination, with decreased frequency and no sensation of blockage. - Taking tamsulosin 2 capsules at bedtime. - Follow-up with Dr. Payne scheduled for November 12. Cancer: - Currently on chemotherapy. - Experiencing lightheadedness and fatigue, attributing symptoms to chemotherapy. - Discussed bone density concerns with Dr. Payne. Hypothyroidism: - Taking Synthroid. Hyperlipidemia: - Taking Lipitor. Allergies: - Chronic phlegm production, requiring frequent throat clearing. - Symptoms began [id number] infection, persisting for several months. - Previously took allergy medication, but discontinued due to chemotherapy. - Denies regular sneezing. - Considering resuming Sudafed after consulting with Dr. Payne. Muscle Spasms: - Taking Flexeril. Pruritus: - Taking hydroxyzine at bedtime. Lifestyle: - Planning to resign from work on November 16. Review of Systems Constitutional: Positive for fatigue. HENT: Positive for congestion and postnasal drip. Negative for sore throat. Respiratory: Positive for cough. Negative for shortness of breath and wheezing. Gastrointestinal: Negative for abdominal pain. Genitourinary: Negative for difficulty urinating and dysuria. Neurological: Positive for light-headedness. Negative for headaches. 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 Htn (Hypertension) Hyperlipidemia Hypothyroidism Herpes Infection Muscle Spasm of Back Impaired Fasting Glucose Urinary Frequency Anemia Obesity, Class I, Bmi 30-34.9 Paroxysmal Atrial Fibrillation (Hcc) At Risk for Stroke Anticoagulant Long-Term Use Peripheral Vascular Disease, Unspecified Prostate Cancer (Hcc) Bilateral Hydronephrosis Gastroesophageal Reflux Disease Social History Tobacco Use Smoking status: Former Types: Cigarettes Passive exposure: Past Smokeless tobacco: Never Tobacco comments: Pt smoked 1 pack daily x 14 years, quit in 1964 Vaping Use Vaping status: Never Used Substance Use Topics Alcohol use: Not Currently Alcohol/week: 1.0 standard drink of alcohol Types: 1 Cans of beer per week Drug use: Never Current Outpatient Medications Medication Sig multivit-minerals/folic acid (MULTIVITAMIN GUMMIES PO) Take 2 pieces of gum by mouth q 12 HR. amLODIPine (NORVASC) 5 mg tablet Take 1 tablet by mouth once daily. pantoprazole DR (PROTONIX) 20 mg tablet Take 1 tablet by mouth once daily. enzalutamide (XTANDI) 80 mg tablet Take 2 tablets (160 mg) by mouth once daily. apixaban (ELIQUIS) 5 mg tab(s) Take 1 tablet by mouth two times a day. valACYclovir (VALTREX) 500 mg tablet Take 1 tablet by mouth once daily. cyclobenzaprine (FLEXERIL) 10 mg tablet Take 1 tablet by mouth two times a day as needed for muscle spasm. atorvastatin (LIPITOR) 40 mg tablet Take 1 tablet by mouth daily at bedtime. hydrOXYzine HCl (ATARAX) 25 mg tablet Take 1 tablet by mouth daily at bedtime. levothyroxine (SYNTHROID) 112 mcg tablet Take 1 tablet by mouth once daily. Take on empty stomach. For thyroid losartan (COZAAR) 100 mg tablet Take 1 tablet by mouth once daily. tamsulosin (FLOMAX) 0.4 mg Take 2 capsules by mouth daily at bedtime. fluticasone (FLONASE) 50 mcg/actuation nasal spray Use 1 spray in each nostril daily at bedtime. No current facility-administered medications for this visit. Objective BP 150/74 Pulse (!) 51 Wt 91.4 kg (201 lb 8 oz) BMI 32.52 kg/m? Physical Exam Constitutional: General: He is not in acute distress. Appearance: He is not ill-appearing or diaphoretic. HENT: Nose: Congestion and rhinorrhea present. Rhinorrhea is clear. Right Turbinates: Swollen and pale. Left Turbinates: Swollen and pale. Right Sinus: No maxillary sinus tenderness or frontal sinus tenderness. Left Sinus: No maxillary sinus tenderness or frontal sinus tenderness. Mouth/Throat: Pharynx: Oropharynx is clear. Cardiovascular: Rate and Rhythm: Regular rhythm. Bradycardia present. Heart sounds: No murmur heard. No gallop. Pulmonary: Effort: No respiratory distress. Breath sounds: No wheezing, rhonchi or rales. Musculoskeletal: Ri (more content not included)... Normal [facility] 09[facility]02[facility]2024 [facility] -- CLINT VILLAR ([id number]) 1940 M Date Time Provider Department 09/02/24 BOUCHRA FORTUNE During your visit today, we recorded the following information about you: Bouchra Fortune RN 09/02/2024 11:13 AM Signed ORAL ANTI-CANCER AGENTS FOLLOW-UP PHONE CALL/VISIT Patient identified by name and date of . YES Patient is on day 9 of Xtandi (enzalutamide) for Prostate Cancer. Call to patient, message left to call me back and phone/contact number provided. WOODY Mohamud Cathleen, RN 09/03/2024 10:59 AM Signed Call to patient, message left to call me back and phone/contact number provided. Bouchra Fortune RN Allergies As of Date: 09/02/2024 Noted Allergy Reaction LATEX 03/15/2024 2 - Rash Date Reviewed: 08/26/2024 Reviewed by: Radha Larsen MD - Fully Assessed Reason for Visit: Care Coordination [3491] Primary Visit Diagnosis:Prostate cancer (HCC) [C61] Order(s):COMPREHENSIVE METABOLIC PANEL [SQCMP] Order #: [id number] FUTURE Prescriptions as of 09/03/2024 - pantoprazole DR (PROTONIX) 20 mg tablet Take 1 tablet by mouth once daily. - enzalutamide (XTANDI) 80 mg tablet Take 2 tablets (160 mg) by mouth once daily. - apixaban (ELIQUIS) 5 mg tab(s) Take 1 tablet by mouth two times a day. - ferrous sulfate 325 mg (65 mg iron) tablet Take 1 tablet by mouth once daily. - ascorbic acid, vitamin C, (VITAMIN C) 500 mg tablet Take 1 tablet by mouth once daily. - cyclobenzaprine (FLEXERIL) 10 mg tablet Take 1 tablet by mouth two times a day as needed for muscle spasm. - iv contrast (will be provided with radiology test) CT Urogram WO/W Inject, intravenously, once for 1 dose.No IV access, insert saline lock prior to the beginning of sedation, infusion, injection of imaging exam. Discontinue saline lock post exam. If Pt. has a central line or IVAD, may access for administration according to line specific nursing protocol. Once exam is complete flush line and de-access according to line specific nursing protocol in the CT contrast administration guidelines link. - valACYclovir (VALTREX) 500 mg tablet Take 1 tablet by mouth once daily. - hydrOXYzine HCl (ATARAX) 25 mg tablet Take 1 tablet by mouth daily at bedtime. - losartan (COZAAR) 100 mg tablet Take 1 tablet by mouth once daily. - atorvastatin (LIPITOR) 40 mg tablet Take 1 tablet by mouth daily at bedtime. - tamsulosin (FLOMAX) 0.4 mg Take 2 capsules by mouth daily at bedtime. - levothyroxine (SYNTHROID) 112 mcg tablet Take 1 tablet by mouth once daily. Take on empty stomach. For thyroid - amLODIPine (NORVASC) 5 mg tablet Take 1 tablet by mouth once daily. 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] 03/08/2014 05/23/2015 Hypothyroidism [E03.9] 07/21/2014 Herpes infection [B00.9] 05/23/2015 Muscle spasm of back [M62.830] 05/23/2015 Impaired fasting glucose [R73.01] 12/19/2016 Obesity, Class I, BMI 30-34.9 [E66.811] 01/29/2019 06/02/2020 Obesity, Class II, BMI 35-39.9 [E66.812] 06/02/2020 10/25/2023 COVID-19 virus infection [U07.1] 07/03/2020 12/06/2020 Erectile dysfunction [N52.9] 06/21/2021 Urinary frequency [R35.0] 06/21/2021 Anemia [D64.9] 12/27/2021 Positive colorectal cancer screening using [place]*01/03/2023 02/26/2024 Elevated PSA [R97.20] 01/09/2023 New onset atrial fibrillation (HCC) [I48.91] 06/23/2023 10/21/2023 Obesity, Class I, BMI 30-34.9 [E66.811] 07/24/2023 Paroxysmal atrial fibrillation (HCC) [I48.0] 10/21/2023 At risk for stroke [Z91.89] 10/21/2023 Anticoagulant long-term use [Z79.01] 10/21/2023 Peripheral vascular disease, unspecified (HCC) *10/16/2023 Rectal mass [K62.89] 12/04/2023 02/26/2024 Prostate cancer (HCC) [C61] 02/13/2024 Obstructive uropathy [N13.9] 02/26/2024 Preop testing [Z01.818] 03/05/2024 04/23/2024 Bilateral hydronephrosis [N13.30] 03/08/2024 Acute urinary retention [R33.8] 03/24/2024 Gastroesophageal reflux disease [K21.9] 05/21/2024 Encounter Status:Closed by BOUCHRA FORTUNE on 09/03/24 [facility] 08-26-2024 CNOV Office Visit (URCANT ) -- CLINT VILLAR ([id number]) 1940 M Date Time Provider Department 08/26/24 8:15 AM RADHA LARSEN During your visit today, we recorded the following information about you: Radha Larsen MD 08/26/2024 8:36 AM Signed [facility] ESTABLISHED PATIENT NOTE PATIENT: Clint Villar (84 year old) PCP: Cody Carrington MD DATE OF SERVICE: 08/26/2024 SUMMARY: Mr. Villar is a 84 year old male who is here for: -- Assessment AND Plan Bilateral hydronephrosis Resolved Stents out 07/15/2024 US reviewed. No hydronephrosis No further intervention planned. We discussed concerning signs and symptoms and patient knows to report these immediately. If unable to reach their urologist, patient knows to report to emergency department for evaluation. Orders: UA DIP, URINE (POC) BLADDER SCAN Prostate cancer (HCC) Castrate sensitive metastatic prostate cancer On Eligard and Xtandi through oncology XRT PSA 0.73 from 1.88 (down from 73.59 originally) Lymphadenopathy resolved on CT Continue medical therapy through oncology Follow up with nm 6 months for PSA Orders: UA DIP, URINE (POC) PROSTATE-SPECIFIC ANTIGEN DIAGNOSTIC; Future Urinary frequency Prior retention - resolved UA negative. PVR 21 cc Continue tamsulosin. Refill as needed -- FOLLOW UP: Return in about 6 months (around 02/25/2025). -- CHIEF COMPLAINT: Patient presents with: Prostate Cancer: 6 week follow up HISTORY OF PRESENT ILLNESS: Prior notes were reviewed. The patient reports feeling well since the removal of his stents, with no back pain or renal discomfort. He notes improvement in urinary symptoms, denying any dysuria or sensation of urinary obstruction. He expresses satisfaction with his current condition, stating, It's nice to be able to go. Recent laboratory results indicate a decrease in PSA levels to 0.7. The patient received his last Eligard injection last week and began taking enzalutamide (Xtandi) yesterday. He reports being very pleased with the results so far. REVIEW OF SYSTEMS: Genitourinary: Denies hematuria, dysuria, urgency, nocturia, [place], weak stream. Constitutional: unintentional weight loss - denies, fevers - denies Cardiovascular: new or worsening chest pain - denies Respiratory: new or worsening shortness of breath - denies Gastrointestinal: constipation - denies, vomiting - denies Hematologic/Lymphatic: easy bleeding or bruising - denies ALLERGIES: ALLERGIES Allergen Reactions Latex Rash MEDICATIONS: pantoprazole DR (PROTONIX) 20 mg tablet Take 1 tablet by mouth once daily. enzalutamide (XTANDI) 80 mg tablet Take 2 tablets (160 mg) by mouth once daily. apixaban (ELIQUIS) 5 mg tab(s) Take 1 tablet by mouth two times a day. ferrous sulfate 325 mg (65 mg iron) tablet Take 1 tablet by mouth once daily. ascorbic acid, vitamin C, (VITAMIN C) 500 mg tablet Take 1 tablet by mouth once daily. cyclobenzaprine (FLEXERIL) 10 mg tablet Take 1 tablet by mouth two times a day as needed for muscle spasm. valACYclovir (VALTREX) 500 mg tablet Take 1 tablet by mouth once daily. hydrOXYzine HCl (ATARAX) 25 mg tablet Take 1 tablet by mouth daily at bedtime. losartan (COZAAR) 100 mg tablet Take 1 tablet by mouth once daily. atorvastatin (LIPITOR) 40 mg tablet Take 1 tablet by mouth daily at bedtime. tamsulosin (FLOMAX) 0.4 mg Take 2 capsules by mouth daily at bedtime. levothyroxine (SYNTHROID) 112 mcg tablet Take 1 tablet by mouth once daily. Take on empty stomach. For thyroid amLODIPine (NORVASC) 5 mg tablet Take 1 tablet by mouth once daily. iv contrast (will be provided with radiology test) CT Urogram WO/W Inject, intravenously, once for 1 dose.No IV access, insert saline lock prior to the beginning of sedation, infusion, injection of imaging exam. Discontinue saline lock post exam. If Pt. has a central line or IVAD, may access for administration according to line specific nursing protocol. Once exam is complete flush line and de-access according to line specific nursing protocol in the CT contrast administration guidelines link. (Patient not taking: Reported on 07/15/2024) PAST HISTORY: PAST MEDICAL HISTORY Diagnosis Date Admitted for observation ADMITTED WITH NEW ONSET AFIB MAY 2023, MED AND SENT HOME TO FOLLOW UP WITH CARDIOLOGY 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 Anticoagulant long-term use 10/21/2023 (more content not included)... [facility] 08-25-2024 [place] Telephone (HEMAWS) -- CLINT VILLAR ([id number]) 1940 M Date Time Provider Department 08/25/24 BOUCHRA FORTUNE During your visit today, we recorded the following information about you: Bouchra Fortune, WOODY 08/25/2024 11:44 AM Addendum ORAL ANTI-CANCER AGENTS EDUCATION patient called today for oral medication education of Xtandi for Prostate Cancer Anticipated/Scheduled start date: 08/25/24, received yesterday, 08/24/24 Patient asking about taking OTC medication for prevent bone loss. READINESS TO LEARN Cognitive Ability: Alert and oriented Motivation to Learn: Interested Family Support: High - Very involved in pt care Instruction Provided to: Patient Patient learns best by: Multiple Methods Factors affecting learning: None Physical limitation affecting learning: None GARRIDO ASSESSMENT: 1.) Verified that patient knows that the oral agents are for cancer and are taken by mouth. Yes 2.) Medication review completed during visit. Yes 3.) Patient is able to swallow pills. Yes 4.) Patient is able to read the drug label/information. Yes 5.) Patient is able to open the medication bottles and packages. Yes 6.) Has patient taken other pills for cancer? No 7.) Is patient experiencing any symptoms that would affect their ability to keep down pills, for example nausea or vomiting? No 8.) Verified that patient understands prescription delivery, benefit investigation and refill process. Yes DRUG-SPECIFIC EDUCATION: 1.) Verified patient knows the drug name. Yes 2.) Verified patient understands the dose and schedule of oral anti cancer agent. Yes 3.) Verified patient knows what to do if a medication dose is missed. Yes 4.) Verified patient understands where to store the drug. Yes 5.) Verified patient understands potential side effects and how to manage them. Yes 6.)Verified patient understands handling precautions of oral anti cancer agent. Yes 7.) Verified patient was given written instructions and understands when and whom to call with questions. Yes 8.) Verified patient understands where and how to return drug. Yes 9.) Verified patient received drug specific adult education handout and neutropenic wallet card Yes No EVALUATE: The patient demonstrated an understanding of all the above education using the teach-back method. Yes Instructed to call us with any questions, concerns, and/or unresolved symptoms. Will continue to follow up and provide reinforcement of teaching topics as needed. WOODY Mohamud Cathleen, WOODY 08/25/2024 11:[address] Payne would like CMP/PSA/OV with next Lupron injection on 11/12/24 and he does not advise any OTC for bone loss at this time. WOODY Harper Cathleen, RN 08/25/2024 11:47 AM Signed PSS: please schedule CMP/PSA/OV with next Lupron injection on 11/12/24. please send patient via [employer] when completed. WOODY Harper Naomi 08/25/2024 1:02 PM Signed This has been scheduled as directed. Britt Agustin Allergies As of Date: 08/25/2024 Noted Allergy Reaction LATEX 03/15/2024 2 - Rash Date Reviewed: 08/20/2024 Reviewed by: Dawn Jaimes LPN - Fully Assessed Reason for Visit: Care Coordination [4677] Cmt: ORAL ANTI-CANCER AGENTS EDUCATION-Xtandi Prescriptions as of 08/25/2024 - pantoprazole DR (PROTONIX) 20 mg tablet Take 1 tablet by mouth once daily. - enzalutamide (XTANDI) 80 mg tablet Take 2 tablets (160 mg) by mouth once daily. - apixaban (ELIQUIS) 5 mg tab(s) Take 1 tablet by mouth two times a day. - ferrous sulfate 325 mg (65 mg iron) tablet Take 1 tablet by mouth once daily. - ascorbic acid, vitamin C, (VITAMIN C) 500 mg tablet Take 1 tablet by mouth once daily. - cyclobenzaprine (FLEXERIL) 10 mg tablet Take 1 tablet by mouth two times a day as needed for muscle spasm. - iv contrast (will be provided with radiology test) CT Urogram WO/W Inject, intravenously, once for 1 dose.No IV access, insert saline lock prior to the beginning of sedation, infusion, injection of imaging exam. Discontinue saline lock post exam. If Pt. has a central line or IVAD, may access for administration according to line specific nursing protocol. Once exam is complete flush line and de-access according to line specific nursing protocol in the CT contrast administration guidelines link. - valACYclovir (VALTREX) 500 mg tablet Take 1 tablet by mouth once daily. - hydrOXYzine HCl (ATARAX) 25 mg tablet Take 1 tablet by mouth daily at bedtime. - losartan (COZAAR) 100 mg tablet Take 1 tablet by mouth once daily. - atorvastatin (LIPITOR) 40 mg tablet Take 1 tablet by mouth daily at bedtime. - tamsulosin (FLOMAX) 0.4 mg Take 2 capsules by mouth daily at bedtime. - levothyroxine (SYNTHROID) 112 mcg tablet Take 1 tablet by mouth once daily. Take on empty stomach. For thyroid - amLODIPine (NORVASC) 5 m (more content not included)... Normal [facility] PSA SerPl-ncon 08-20-2024 Prostate specific Ag [Mass/Vol] 0.73 ng/mL Normal <2.60 [facility] Comment on above: Order Comment: Speci men Type: BLOOD SPECIMEN Ordering Facility: [facility] Address: [address] [place] [address] Result Comment: Tota l PSA test methodology used is the Electrochemiluminescence Immunoassay by [employer]. Total PSA values by differing methodologies cannot be interchanged. Performed By: #### 2 [id number] #### [facility] CLIA [id number] [address] [place] [address] CNPKarla 08-06-2024 CNPN Telephone (TYE) -- CLINT VILLAR ([id number]) 1940 M Date Time Provider Department 08/06/24 BOUCHRA FORTUNE During your visit today, we recorded the following information about you: Bouchra Fortune RN 08/06/2024 2:32 PM Signed Call to patient, message left to call me back and phone/contact number provided. WOODY Mohamud Cathleen, RN 08/12/2024 10:45 AM Signed Call to patient, message left to call me back and phone/contact number provided. WOODY Mohamud Cathleen, WOODY 08/12/2024 10:59 AM Signed Patient returned call. He is out of the country and will return on 08/17/24. We made a plan, that I will call him on 08/18/24. He states he has not received the Xtandi or heard from the pharmacy about the delivery. He tried reaching out to them but did not get any information. He ask that I send an [employer] message with the name of pharmacy and contact number and he will reach out to them. Chelsea Fortune RN Allergies As of Date: 08/06/2024 Noted Allergy Reaction LATEX 03/15/2024 2 - Rash Date Reviewed: 07/15/2024 Reviewed by: Radha Larsen MD - Fully Assessed Reason for Visit: Care Coordination [7005] Cmt: Xtandi Prescriptions as of 08/12/2024 - enzalutamide (XTANDI) 80 mg tablet Take 2 tablets (160 mg) by mouth once daily. - apixaban (ELIQUIS) 5 mg tab(s) Take 1 tablet by mouth two times a day. - pantoprazole DR (PROTONIX) 20 mg tablet Take 1 tablet by mouth once daily. - ferrous sulfate 325 mg (65 mg iron) tablet Take 1 tablet by mouth once daily. - ascorbic acid, vitamin C, (VITAMIN C) 500 mg tablet Take 1 tablet by mouth once daily. - cyclobenzaprine (FLEXERIL) 10 mg tablet Take 1 tablet by mouth two times a day as needed for muscle spasm. - iv contrast (will be provided with radiology test) CT Urogram WO/W Inject, intravenously, once for 1 dose.No IV access, insert saline lock prior to the beginning of sedation, infusion, injection of imaging exam. Discontinue saline lock post exam. If Pt. has a central line or IVAD, may access for administration according to line specific nursing protocol. Once exam is complete flush line and de-access according to line specific nursing protocol in the CT contrast administration guidelines link. - valACYclovir (VALTREX) 500 mg tablet Take 1 tablet by mouth once daily. - hydrOXYzine HCl (ATARAX) 25 mg tablet Take 1 tablet by mouth daily at bedtime. - losartan (COZAAR) 100 mg tablet Take 1 tablet by mouth once daily. - atorvastatin (LIPITOR) 40 mg tablet Take 1 tablet by mouth daily at bedtime. - tamsulosin (FLOMAX) 0.4 mg Take 2 capsules by mouth daily at bedtime. - levothyroxine (SYNTHROID) 112 mcg tablet Take 1 tablet by mouth once daily. Take on empty stomach. For thyroid - amLODIPine (NORVASC) 5 mg tablet Take 1 tablet by mouth once daily. 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] 03/08/2014 05/23/2015 Hypothyroidism [E03.9] 07/21/2014 Herpes infection [B00.9] 05/23/2015 Muscle spasm of back [M62.830] 05/23/2015 Impaired fasting glucose [R73.01] 12/19/2016 Obesity, Class I, BMI 30-34.9 [E66.811] 01/29/2019 06/02/2020 Obesity, Class II, BMI 35-39.9 [E66.812] 06/02/2020 10/25/2023 COVID-19 virus infection [U07.1] 07/03/2020 12/06/2020 Erectile dysfunction [N52.9] 06/21/2021 Urinary frequency [R35.0] 06/21/2021 Anemia [D64.9] 12/27/2021 Positive colorectal cancer screening using [place] [employer]*01/03/2023 02/26/2024 Elevated PSA [R97.20] 01/09/2023 New onset atrial fibrillation (HCC) [I48.91] 06/23/2023 10/21/2023 Obesity, Class I, BMI 30-34.9 [E66.811] 07/24/2023 Paroxysmal atrial fibrillation (HCC) [I48.0] 10/21/2023 At risk for stroke [Z91.89] 10/21/2023 Anticoagulant long-term use [Z79.01] 10/21/2023 Peripheral vascular disease, unspecified (HCC) *10/16/2023 Rectal mass [K62.89] 12/04/2023 02/26/2024 Prostate cancer (HCC) [C61] 02/13/2024 Obstructive uropathy [N13.9] 02/26/2024 Preop testing [Z01.818] 03/05/2024 04/23/2024 Bilateral hydronephrosis [N13.30] 03/08/2024 Acute urinary retention [R33.8] 03/24/2024 Gastroesophageal reflux disease [K21.9] 05/21/2024 Encounter Status:Closed by BOUCHRA FORTUNE on 08/12/24 Normal [facility] US KIDNEY/BLADDERon 07-23-19 US KIDNEY/BLADDER * * *Final Report* * * DATE OF EXAM: Jul 22 2024 8:48AM WRU [id number] - US KIDNEY/BLADDER / PROCEDURE REASON: Bilateral hydronephrosis * * * * Physician Interpretation * * * * EXAMINATION: RENAL ULTRASOUND CLINICAL HISTORY: Bilateral hydronephrosis TECHNIQUE: Sonography of the kidneys and urinary bladder was performed. Images were obtained and stored in a permanent archive. MQ: UR_1 COMPARISON: CT urogram 06/21/2024 RESULT: Right Kidney: -Renal length: 10.8 cm -Parenchyma: Normal parenchymal echogenicity. Normal parenchymal thickness. -Collecting system: No hydronephrosis. -Calculus: No echogenic, shadowing calculus. -Lesion: None. Left Kidney: -Renal length: 10.8 cm -Parenchyma: Normal parenchymal echogenicity. Normal parenchymal thickness. -Collecting system: No hydronephrosis. -Calculus: No echogenic, shadowing calculus. -Lesion: 1.5 cm lower pole cyst. Bladder: Normal sonographic appearance. IMPRESSION: No hydronephrosis. Cost Estimating Manager: PSCB Transcribe Date/Time: Jul 25 2024 11:56A Dictated by : JOB DOUGHERTY MD This examination was interpreted and the report reviewed and electronically signed by: JOB DOUGHERTY MD on Jul 25 2024 11:57AM EST [id number] Normal [facility] BLADDER SCANon 07-15-2024 PVR-127mL [facility] CNOVon 07-15-2024 CNOV Office Visit (URCANT ) -- CLINT VILLAR ([id number]) 1940 M Date Time Provider Department 07/15/24 10:15 AM RADHA LARSEN During your visit today, we recorded the following information about you: Blood pressure Weight Height 132/58 90.7 kg 1.676 m Radha Larsen MD 07/15/2024 10:44 AM Signed [facility] PROCEDURE NOTE PATIENT: Clint Villar (84 year old) DATE OF SERVICE: 07/15/2024 PRE-OPERATIVE DIAGNOSIS: Bilateral hydronephrosis POST-OPERATIVE DIAGNOSIS: same PROCEDURE: Cystoscopy and removal of bilateral ureteral stents ANESTHESIA: Local BLOOD LOSS: none SPECIMENS: none COMPLICATIONS: None FINDINGS: Bilateral stents removed intact. No masses or lesions present. INDICATIONS: Clint Villar is a 84 year old male who presents for cystoscopy and stent removal. We discussed the planned procedure. Risks, benefits, and alternatives of the procedure were discussed. Patient acknowledges understanding and consents to proceed. Elementary Substitute Teacher present for entirety of procedure. PROCEDURE DETAIL: Patient?s identity was confirmed, written informed consent was obtained, and the time out performed before the procedure was initiated The patient was placed on the procedure table in the supine position and prepped and draped in the usual sterile fashion. 2% Lidocaine Jelly was placed per urethra as an anesthetic in the standard fashion. The tip of the flexible cystoscope was carefully placed into the urethra under direct visual guidance. The scope was negotiated through the urethra to the level of the bladder. The bladder was entered and careful quintana-endoscopy was carried out. The posterior, superior and lateral elder and dome of the bladder were all well visualized and the scope was retroflexed upon itself. There were bilateral indwelling ureteral stents. This stents were removed intact using cystoscopic graspers. At the conclusion of the procedure, the flexible cystoscope was removed atraumatically. The patient tolerated the procedure without complications. DISPOSITION: The patient tolerated the procedure well. Discharge to home. Postoperative care, limitations, and expectations were reviewed with the patient. We discussed concerning signs and symptoms and patient knows to report these immediately. If unable to reach their urologist, patient knows to report to emergency department for evaluation. -- PLAN: Rx sent for Keflex. Follow up 6 weeks with renal US and bmp ORDERS TODAY: Orders Placed This Encounter BLADDER SCAN Cysto with stent removal US KIDNEY/BLADDER Standing Status: Future Expiration Date: 08/14/2025 UA DIP, URINE (POC) Basic Metabolic Panel Standing Status: Future Expected Date: 08/15/2024 Expiration Date: 11/14/2024 cephALEXin (KEFLEX) 500 mg capsule Sig: Take 1 capsule by mouth three times a day for 3 days. Dispense: 9 capsule Refill: 0 -- UNIVERSAL PROTOCOL / SAFETY CHECKLIST A Moment of CARE was completed. Sign In: History and Physical on chart: Completed Allergies and Medications Review: Completed Informed Consent: Completed. Staff directly involved with procedure wore appropriate PPE: Completed Sign in Communication: Completed Patient/surrogate verified: Name, date of , allergies, intended procedure Time Out: Team Confirms the Correct Patient, Correct Procedure, Correct Site and Site Marking (if applicable), Correct Position, Sterility, Fire Risk, Medications to be given. Provider confirms relevant labs and/or imaging reviewed, intender procedure match source documentation and consent, correct side marked (if applicable), medications for procedure verified, fire risk assessment completed, implant noted (if applicable): Affirmation of Time Out: Yes Sign Out: All specimen containers correctly labeled when applicable. All instruments, equipment accounted for. Sign Out Discussion: Completed Patient instructions: Completed Radha Larsen MD 07/15/2024 Radha Larsen MD 07/15/2024 10:44 AM Signed [facility] ESTABLISHED PATIENT NOTE PATIENT: Clint Villar (84 year old) PCP: Cody Carrington MD DATE OF SERVICE: 07/15/2024 -- SUMMARY: Mr. Villar is a 84 year old male who is here for Assessment AND Plan Prostate cancer (HCC) Castrate sensitive metastatic prostate cancer On [facility] through oncology XRT PSA 1.88 (down from 73.59 bola (more content not included)... Normal [facility] UA DIP, URINE (POC)on 2024 BILIRUBIN UA (POCT) Negative Negative [facility] CLARITY UA (POCT) [facility] COLOR UA (POCT) Yellow [facility] GLUCOSE UA (POCT) Negative Negative mg/dL [facility] Hemoglobin Ql (U) Moderate Abnormal Negative [facility] Interpretation and review of laboratory results Abnormal [facility] KETONE UA (POCT) Negative Negative mg/dL [facility] LEUKOCYTES UA (POCT) Large Abnormal Negative [facility] NITRITE UA (POCT) Negative Negative [facility] PH UA (POCT) 6 4.5 - 8.0 [facility] Protein Ql (U) 100 mg/dL Abnormal Negative [facility] SPECIFIC GRAVITY UA (POCT) 1.015 1.005 - 1.030 [facility] UROBILINOGEN UA (POCT) 0.2 Normal E.U./dL [facility] Location:[facility] chao Walker, [address] [place] [address] [address], [place], [place], [address] [facility] POINT OF CARE [facility] CNOVSPon 07-09-2024 CNOVSP Visit (SP) Office (H EMAWS) -- CLINT VILLAR ([id number]) 1940 M Date Time Provider Department 07/09/24 8:30 AM JOHAN PAYNE During your visit today, we recorded the following information about you: Temperature Pulse Blood pressure Weight 97 degrees 61/minute 125/67 90.7 kg Johan Payne MD 07/09/2024 9:43 AM Signed (Elements copied from my note dated February 27, 2024, have been reviewed and updated where appropriate, and all reflect current assessment and medical decision making from today's encounter, July 09, 2024) HISTORY OF PRESENT ILLNESS: Clint Villar is a 83 year old male in excellent health had a cologuard come back positive. A colonography CT scan was done that showed retroperitoneal adenopathy, enlarged prostate gland and possible rectal mass. Colonoscopy was negative for rectal mass. Saw urology PSA 73.59 (was 71 in January 2023). Prostate enlarged and firm. Biopsy of prostate is planned for mid January. 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 Reviewed case also with Dr Aguilar. Met in follow up, reviewed prostate biopsy shows adenocarcinoma. Bone scan focally positive. Retro peritoneal adenopathy. PSA now normal, we see improvement in adenopathy, hydronephrosis Recurrent UTI since stent placement. CLINICAL IMPRESSION: Elevated PSA Enlarged and firm prostate Retroperitoneal adenopathy Prostate cancer on biopsy PSA improved on GnRH agonist RECOMMENDATION/PLAN: 1. continue GnRH agonist, will add in enzalutamide when feasible. 2. Follow up with urology. ?need for ureteral stent removal 3. Back in 6 weeks with PSA and lupron, plan to add in enzalutamide in that time frame as well Written and verbal health teaching given to patient, patient verbalizes understanding and agrees with treatment plan. 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 PAST SURGICAL HISTORY 2005: OPEN REPAIR OF ROTATOR CUFF ACUTE; Right Comment: Rotator cuff repair, right 1950s: TONSILLECTOMY PRIMARY/SECONDARY Comment: Tonsillectomy FAMILY HISTORY Problem Relation Age of Onset other (Other) Mother no contact Coronary Artery Disease Father Heart Failure Father Diabetes Father Cancer Paternal Grandfather Cancer Half-brother Social History Tobacco Use Smoking status: Former Types: Cigarettes Smokeless tobacco: Never Tobacco comments: Pt smoked 1 pack daily x 20 years, Vaping Use Vaping status: Never Used Substance Use Topics Alcohol use: Yes Alcohol/week: 1.0 standard drink of alcohol Types: 1 Cans of beer per week Drug use: Never ALLERGIES: ALLERGIES No Known Allergies CURRENT OUTPATIENT MEDICATIONS: levothyroxine (SYNTHROID) 112 mcg tablet Take 1 tablet by mouth once daily. Take on empty stomach. For thyroid finasteride (PROSCAR) 5 mg tablet Take 1 tablet by mouth once daily apixaban (ELIQUIS) 5 mg tab(s) Take 1 tablet by mouth two times a day. metoprolol tartrate, short acting, (LOPRESSOR) 50 mg tablet Take 1 tablet by mouth two times a day. amLODIPine (NORVASC) 5 mg tablet Take 1 tablet by mouth once daily. hydrOXYzine HCl (ATARAX) 25 mg tablet Take 1 tablet by mouth daily at bedtime. losartan (COZAAR) 100 mg tablet Take 1 tablet by mouth once daily. valACYclovir (VALTREX) 500 mg tablet Take 1 tablet by mouth once daily. atorvastatin (LIPITOR) 40 mg tablet Take 1 tablet by mouth daily at bedtime. tamsulosin (FLOMAX) 0.4 mg Take 2 capsules by mouth daily at bedtime. cyclobenzaprine (FLEXERIL) 10 mg tablet Take 1 tablet by mouth twice daily as needed for muscle spasm. levoFLOXacin (LEVAQUIN) 750 mg tablet Take 1 tablet by mouth once daily. Start the day before the biopsy REVIEW OF SYSTEMS: GENERAL: No fever, night sweats, weight loss or malaise. All other reviewed and negative other than HPI. PHYSICAL EXAMIN (more content not included)... Normal [facility] 2024 [facility] Telephone (URCANT) -- CLINT VILLAR ([id number]) 1940 M Date Time Provider Department 07/08/24 RADHA LARSEN During your visit today, we recorded the following information about you: Tamica Meek 2024 2:40 PM Signed Patient states leaving for [place] on August 02 and has stents in place, wanting to know if he can have the stents out before he leaves for [place]? Please advise Thanks Radha Larsen MD 07/09/2024 8:19 AM Signed Okay to schedule for office cystoscopy and bilateral ureteral stent removal Allergies As of Date: 2024 Noted Allergy Reaction LATEX 03/15/2024 2 - Rash Date Reviewed: 06/21/2024 Reviewed by: Earnestine Montes RT(R) - Fully Assessed Reason for Visit: Patient Question [1477] Prescriptions as of 07/09/2024 - pantoprazole DR (PROTONIX) 20 mg tablet Take 1 tablet by mouth once daily. - ferrous sulfate 325 mg (65 mg iron) tablet Take 1 tablet by mouth once daily. - ascorbic acid, vitamin C, (VITAMIN C) 500 mg tablet Take 1 tablet by mouth once daily. - cyclobenzaprine (FLEXERIL) 10 mg tablet Take 1 tablet by mouth two times a day as needed for muscle spasm. - iv contrast (will be provided with radiology test) CT Urogram WO/W Inject, intravenously, once for 1 dose.No IV access, insert saline lock prior to the beginning of sedation, infusion, injection of imaging exam. Discontinue saline lock post exam. If Pt. has a central line or IVAD, may access for administration according to line specific nursing protocol. Once exam is complete flush line and de-access according to line specific nursing protocol in the CT contrast administration guidelines link. - valACYclovir (VALTREX) 500 mg tablet Take 1 tablet by mouth once daily. - bicalutamide (CASODEX) 50 mg tablet Take 1 tablet by mouth once daily. Take for 10 days starting when you get lupron injection - hydrOXYzine HCl (ATARAX) 25 mg tablet Take 1 tablet by mouth daily at bedtime. - losartan (COZAAR) 100 mg tablet Take 1 tablet by mouth once daily. - atorvastatin (LIPITOR) 40 mg tablet Take 1 tablet by mouth daily at bedtime. - tamsulosin (FLOMAX) 0.4 mg Take 2 capsules by mouth daily at bedtime. - levothyroxine (SYNTHROID) 112 mcg tablet Take 1 tablet by mouth once daily. Take on empty stomach. For thyroid - apixaban (ELIQUIS) 5 mg tab(s) Take 1 tablet by mouth two times a day. - amLODIPine (NORVASC) 5 mg tablet Take 1 tablet by mouth once daily. 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] 03/08/2014 05/23/2015 Hypothyroidism [E03.9] 07/21/2014 Herpes infection [B00.9] 05/23/2015 Muscle spasm of back [M62.830] 05/23/2015 Impaired fasting glucose [R73.01] 12/19/2016 Obesity, Class I, BMI 30-34.9 [E66.811] 01/29/2019 06/02/2020 Obesity, Class II, BMI 35-39.9 [E66.812] 06/02/2020 10/25/2023 COVID-19 virus infection [U07.1] 07/03/2020 12/06/2020 Erectile dysfunction [N52.9] 06/21/2021 Urinary frequency [R35.0] 06/21/2021 Anemia [D64.9] 12/27/2021 Positive colorectal cancer screening using [employer]*01/03/2023 02/26/2024 Elevated PSA [R97.20] 01/09/2023 New onset atrial fibrillation (HCC) [I48.91] 06/23/2023 10/21/2023 Obesity, Class I, BMI 30-34.9 [E66.811] 07/24/2023 Paroxysmal atrial fibrillation (HCC) [I48.0] 10/21/2023 At risk for stroke [Z91.89] 10/21/2023 Anticoagulant long-term use [Z79.01] 10/21/2023 Peripheral vascular disease, unspecified (HCC) *10/16/2023 Rectal mass [K62.89] 12/04/2023 02/26/2024 Prostate cancer (HCC) [C61] 02/13/2024 Obstructive uropathy [N13.9] 02/26/2024 Preop testing [Z01.818] 03/05/2024 04/23/2024 Bilateral hydronephrosis [N13.30] 03/08/2024 Acute urinary retention [R33.8] 03/24/2024 Gastroesophageal reflux disease [K21.9] 05/21/2024 Encounter Status:Closed by RADHA LARSEN on 07/09/24 Normal [facility] PSA SerPl-mCncon 07-05-2024 Prostate specific Ag [Mass/Vol] 1.88 ng/mL Normal <2.60 [facility] Comment on above: Order Comment: Speci men Type: BLOOD SPECIMEN Ordering Facility: [facility] Address: [address] [place] [address] Result Comment: Tota l PSA test methodology used is the Electrochemiluminescence Immunoassay by [employer]. Total PSA values by differing methodologies cannot be interchanged. Performed By: #### 2 857-1 #### [facility] CLIA [id number] [address] [place] [address] [place] Bacteria Ur Culton 5 Bacteria identified Cx Nom (U) ORGANISM ID: 1 <10,000 CFU/ml Normal urogenital heaven Normal [facility] Comment on above: Performed By: #### 2 4321-2 #### [facility] CLIA [id number] [address] [place] [address] [place] Basic metabolic 2000 panelon 06-29-2024 Anion gap [Moles/Vol] 11 mmol/L Normal 8-15 [facility] Comment on above: Order Comment: Speci men Type: BLOOD SPECIMEN Ordering Facility: [facility] Address: [address] [place] [address] Performed By: #### 2 4321-2 #### [facility] CLIA [id number] [address] [place] [address] [place] Calcium [Mass/Vol] 10.0 mg/dL Normal 8.5-10.2 [facility] Comment on above: Order Comment: Speci men Type: BLOOD SPECIMEN Ordering Facility: [facility] Address: [address] [place], [place] [address] Performed By: #### 2 4321-2 #### [facility] CLIA [id number] [address] [place], [place] [address] [place] Chloride [Moles/Vol] 102 mmol/L Normal 98-107 [facility] Comment on above: Order Comment: Franny zavala Type: BLOOD SPECIMEN Ordering Facility: [facility] Address: [address] [place] [address] Performed By: #### 2 4321-2 #### [facility] CLIA [id number] [address] [place] [address] [place] CO2 [Moles/Vol] 23 mmol/L Normal 22-30 [facility] Comment on above: Order Comment: Franny men Type: BLOOD SPECIMEN Ordering Facility: [facility] Address: [address] [place] [address] Performed By: #### 2 4321-2 #### [facility] CLIA [id number] [address] [place] [address] [place] Creatinine [Mass/Vol] 2.11 mg/dL High 0.73-1.22 [facility] Comment on above: Order Comment: Franny zavala Type: BLOOD SPECIMEN Ordering Facility: [facility] Address: [address] [place] [address] Performed By: #### 2 4321-2 #### [facility] CLIA [id number] [address] [place] [address] [place] Creatinine and Glomerular filtration rate.predicted panel (S/P/Bld) 31 mL/min/1.73m??? Low >=60 [facility] Comment on above: Order Comment: Franny zavala Type: BLOOD SPECIMEN Ordering Facility: [facility] Address: [address] [place] [address] Result Comment: Karin mated Glomerular Filtration Rate (eGFR) is calculated using the 2020 CKD-EPI creatinine equation. This equation utilizes serum creatinine, sex, and age as parameters. The creatinine assay has traceable calibration to isotope dilution-mass spectrometry. Refer to KDIGO guidelines for clinical interpretation. In patients with unstable renal function, e.g. those with acute kidney injury, the eGFR may not accurately reflect actual GFR. Performed By: #### 2 4321-2 #### [facility] CLIA [id number] [address] [place] [address] [place] Glucose [Mass/Vol] 121 mg/dL High 74-99 [facility] Comment on above: Order Comment: Franny zavala Type: BLOOD SPECIMEN Ordering Facility: [facility] Address: [address] [place] [address] Result Comment: The [place] Diabetes Association (ADA) provides guidance for cutoff values for fasting glucose and random glucose. The ADA defines fasting as no caloric intake for at least 8 hours. Fasting plasma glucose results between 100 to 125 mg/dL indicate increased risk for diabetes (prediabetes). Fasting plasma glucose results greater than or equal to 126 mg/dL meet the criteria for diagnosis of diabetes. In the absence of unequivocal hyperglycemia, results should be confirmed by repeat testing. In a patient with classic symptoms of hyperglycemia or hyperglycemic crisis, random plasma glucose results greater than or equal to 200 mg/dL meet the criteria for diagnosis of diabetes. Reference: Standards of Medical Care in Diabetes 2016, [place] Diabetes Association. Diabetes Care. 2016.39(Suppl 1). Performed By: #### 2 4321-2 #### [id number] [address] [place] [address] [place] Potassium [Moles/Vol] 4.7 mmol/L Normal 3.7-5.1 [facility] Comment on above: Order Comment: Franny zavala Type: BLOOD SPECIMEN Ordering Facility: [facility] Address: [address] [place] [address] Performed By: #### 2 4321-2 #### [facility] [id number] [address] [place] [address] [place] Sodium [Moles/Vol] 136 mmol/L Normal 136-144 [facility] Comment on above: Order Comment: Franny zavala Type: BLOOD SPECIMEN Ordering Facility: [facility] Address: [address] [place] [address] Performed By: #### 2 4321-2 #### [facility] CLIA [id number] [address] [place] [address] [place] Urea nitrogen [Mass/Vol] 50 mg/dL High 9-24 [facility] Comment on above: Order Comment: Franny zavala Type: BLOOD SPECIMEN Ordering Facility: [facility] Address: [address] [place] [address] Performed By: #### 2 4321-2 #### [facility] CLIA [id number] [address] [place] [address] [place] HbA1c (Bld)on 06-29-2024 Average glucose Estimated from glycated hemoglobin (Bld) [Mass/Vol] 120 mg/dL Normal [facility] Comment on above: Order Comment: Franny zavala Type: BLOOD SPECIMEN Ordering Facility: [facility] Address: [address] [place] [address] Result Comment: eAG: (Estimated average glucose) is a calculated value from HgbA1c and is sales representative wire rope of the average blood glucose level in the last 2-3 month period. Performed By: #### 2 857-1 #### [facility] CLIA [id number] [address] STATES OF [facility] HbA1c (Bld) [Mass fraction] 5.8 % High 4.3-5.6 [facility] Comment on above: Order Comment: Franny zavala Type: BLOOD SPECIMEN Ordering Facility: [facility] Address: [address] [place] [address] Result Comment: [place] Diabetes Association guidelines indicate that patients with HgbA1c in the range 5.7-6.4% are at increased risk for development of diabetes, and intervention by lifestyle modification may be beneficial. HgbA1c greater or equal to 6.5% is considered diagnostic of diabetes. Performed By: #### 2 857-1 #### [facility] CLIA [id number] [address] [place] [address] [place] Urinalysis complete panel (U )on 06-29-2024 BACTERIA UL 9515.3 uL High Negative [facility] Comment on above: Order Comment: Speci men Type: BLOOD SPECIMEN Ordering Facility: [facility] Address: [address] [place] [address] Performed By: #### 2 4321-2 #### [facility] CLIA [id number] [address] [place] [address] [place] Bilirubin Ql (U) Negative Normal Negative [facility] Comment on above: Order Comment: Speci men Type: BLOOD SPECIMEN Ordering Facility: [facility] Address: [address] [place] [address] Performed By: #### 2 4321-2 #### [facility] CLIA [id number] [address] [place] [address] [place] Clarity (Unsp spec) Turbid Abnormal Clear [facility] Comment on above: Order Comment: Speci men Type: BLOOD SPECIMEN Ordering Facility: [facility] Address: [address] [place] [address] Performed By: #### 2 4321-2 #### [facility] CLIA [id number] [address] [place] [address] [place] [facility] Color (U) Yellow Normal Yellow [facility] Comment on above: Order Comment: Speci men Type: BLOOD SPECIMEN Ordering Facility: [facility] Address: [address] [place] [address] Performed By: #### 2 4321-2 #### [facility] CLIA [id number] [address] [place] [address] [place] Epithelial cells LM.HPF (Urine sed) [#/Area] Moderate Normal [facility] Comment on above: Order Comment: Speci men Type: BLOOD SPECIMEN Ordering Facility: [facility] Address: [address] [place] [address] Performed By: #### 2 4321-2 #### [facility] CLIA [id number] [address] [place] [address] [place] Glucose Test strip (U) [Mass/Vol] Negative Normal Negative [facility] Comment on above: Order Comment: Speci men Type: BLOOD SPECIMEN Ordering Facility: [facility] Address: [address] [place] [address] Performed By: #### 2 4321-2 #### [facility] CLIA [id number] [address] [place] [address] [place] Hemoglobin Ql (U) 2+ Abnormal Negative [facility] Comment on above: Order Comment: Speci men Type: BLOOD SPECIMEN Ordering Facility: [facility] Address: [address] [place] [address] Performed By: #### 2 4321-2 #### [facility] CLIA [id number] [address] [place] [address] [place] Hyaline casts (Urine sed) [#/Area] 4-10 /LPF Abnormal 0 /LPF [facility] Comment on above: Order Comment: Speci men Type: BLOOD SPECIMEN Ordering Facility: [facility] Address: [address] [place] [address] Performed By: #### 2 1-2 #### [facility] CLIA [id number] [address] [place] [address] [place] Ketones Ql (U) Negative Normal Negative [facility] Comment on above: Order Comment: Speci men Type: BLOOD SPECIMEN Ordering Facility: [facility] Address: [address] [place] [address] Performed By: #### 2 4321-2 #### [facility] CLIA [id number] [address] [place] [address] [place] Leukocyte esterase Test strip Ql (U) 3+ Abnormal Negative [facility] Comment on above: Order Comment: Speci men Type: BLOOD SPECIMEN Ordering Facility: [facility] Address: [address] [place] [address] Performed By: #### 2 4321-2 #### [facility] CLIA [id number] [address] [place] [address] [place] Nitrite Ql (U) Negative Normal Negative [facility] Comment on above: Order Comment: Speci men Type: BLOOD SPECIMEN Ordering Facility: [facility] Address: [address] [place] [address] Performed By: #### 2 4321-2 #### [facility] CLIA [id number] [address] [place] [address] [place] pH (U) 6.0 [pH] Normal <8.5 [facility] Comment on above: Order Comment: Speci men Type: BLOOD SPECIMEN Ordering Facility: [facility] Address: [address] [place] [address] Performed By: #### 2 4321-2 #### [facility] [id number] [address] [place] [address] [place] Protein (U) [Mass/Vol] 2+ Abnormal Negative [facility] Comment on above: Order Comment: Speci men Type: BLOOD SPECIMEN Ordering Facility: [facility] Address: [address] [place] [address] Performed By: #### 2 4321-2 #### [facility] [id number] [address] [place] [address] [place] RBC LM.HPF (Urine sed) [#/Area] /[HPF] Abnormal 0-2 /HPF [facility] Comment on above: Order Comment: Speci men Type: BLOOD SPECIMEN Ordering Facility: [facility] Address: [address] [place] [address] Performed By: #### 2 4321-2 #### [facility] [id number] [address] [place] [address] [place] Specific gravity (U) [Rel density] 1.011 Normal 1.005-1.030 [facility] Comment on above: Order Comment: Speci men Type: BLOOD SPECIMEN Ordering Facility: [facility] Address: [address] [place] [address] Performed By: #### 2 4321-2 #### [facility] [id number] [address] [place] [address] [place] [facility] Urobilinogen Ql (U) 0.2 EU/dL Normal 0.2-1.0 EU/dL [facility] Comment on above: Order Comment: Speci men Type: BLOOD SPECIMEN Ordering Facility: [facility] Address: [address] [place] [address] Performed By: #### 2 4321-2 #### [facility] [id number] [address] [place] [address] [place] WBC LM.HPF (Urine sed) [#/Area] /[HPF] Abnormal 0-5 /HPF [facility] Comment on above: Order Comment: Speci men Type: BLOOD SPECIMEN Ordering Facility: [facility] Address: [address] [place] [address] Performed By: #### 2 4321-2 #### [facility] [id number] [address] [place] [address] [place] CNPKarla 06-28-2024 [facility] -- CLINT VILLAR ([id number]) 1940 M Date Time Provider Department 06/28/24 CODY CARRINGTON INTWS During your visit today, we recorded the following information about you: Albertina Bar, RN 06/28/2024 11:05 AM Signed Patient reports he has had several UTI's in the last couple of months. Calling with concern that he has another UTI and asking for PCP to order urine testing for him, or other advise. Reports he completed the last Macrobid that was ordered for him on 06/14-06/21. Reports he had an improvement and now experiencing sx's again. Reports sx's began again this past Friday and include burning with urination, some intermittent bilateral kidney discomfort, very cloudy urine and some intermittent fatigue/weakness; reports tires quickly. Denies fever or visible blood in urine. Denies feeling faint. No N/V/D. Reports he did faint about 1-2 weeks ago. Reports he has ureter stents in. Sees Urology on 07/15. Please call patient with advise. Pt aware to proceed to ER for severe sx's as discussed. OWODY Kohler Victor H, MD 06/28/2024 4:01 PM Signed Advise ER for syncope, fever, or worsening symptoms. Keep urology appointment. Urinalysis and urine culture. Verify if he is taking tamsulosin (Flomax) 0.4 mg at bedtime. Debra Ramirez RN 06/28/2024 4:24 PM Signed Pt called and is notified of providers message and instructions. Pt voices understanding. Pt states he takes the 0.4 mg of Flomax, but he had been taking it in the morning after he eats. Pt will start taking at night. Pt is going to come in tomorrow morning to do UA and culture. He [place] away to make it down before the lab closes. WOODY Mason Victor H, MD 06/28/2024 4:47 PM Signed 1) Correction: He is prescribed tamsulosin 0.4 mg two capsules at bedtime. (0.8 mg total). 2) He can probably go to any [facility] lab close to where he works. Debra Ramirez RN 06/28/2024 4:59 PM Signed Pt called and is notified of providers message and instructions. Pt voices understanding. He states he does take 0.8 mg of the Flomax. Debra Ramirez RN Allergies As of Date: 06/28/2024 Noted Allergy Reaction LATEX 03/15/2024 2 - Rash Date Reviewed: 06/21/2024 Reviewed by: Earnestine Montes RT(R) - Fully Assessed Reason for Visit: Patient Request [1696] Primary Visit Diagnosis:Complicated UTI (urinary tract infection) [N39.0] Order(s):URINALYSIS, WITH MICROSCOPIC [SQUAWMIC] Order #: [id number] FUTURE BACTERIAL CULTURE, URINE [SQURCUL] Order #: [id number] FUTURE Prescriptions as of 06/28/2024 - pantoprazole DR (PROTONIX) 20 mg tablet Take 1 tablet by mouth once daily. - ferrous sulfate 325 mg (65 mg iron) tablet Take 1 tablet by mouth once daily. - ascorbic acid, vitamin C, (VITAMIN C) 500 mg tablet Take 1 tablet by mouth once daily. - cyclobenzaprine (FLEXERIL) 10 mg tablet Take 1 tablet by mouth two times a day as needed for muscle spasm. - iv contrast (will be provided with radiology test) CT Urogram WO/W Inject, intravenously, once for 1 dose.No IV access, insert saline lock prior to the beginning of sedation, infusion, injection of imaging exam. Discontinue saline lock post exam. If Pt. has a central line or IVAD, may access for administration according to line specific nursing protocol. Once exam is complete flush line and de-access according to line specific nursing protocol in the CT contrast administration guidelines link. - valACYclovir (VALTREX) 500 mg tablet Take 1 tablet by mouth once daily. - bicalutamide (CASODEX) 50 mg tablet Take 1 tablet by mouth once daily. Take for 10 days starting when you get lupron injection - hydrOXYzine HCl (ATARAX) 25 mg tablet Take 1 tablet by mouth daily at bedtime. - losartan (COZAAR) 100 mg tablet Take 1 tablet by mouth once daily. - atorvastatin (LIPITOR) 40 mg tablet Take 1 tablet by mouth daily at bedtime. - tamsulosin (FLOMAX) 0.4 mg Take 2 capsules by mouth daily at bedtime. - levothyroxine (SYNTHROID) 112 mcg tablet Take 1 tablet by mouth once daily. Take on empty stomach. For thyroid - apixaban (ELIQUIS) 5 mg tab(s) Take 1 tablet by mouth two times a day. - amLODIPine (NORVASC) 5 mg tablet Take 1 tablet by mouth once daily. 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 Normal [facility] CNPNon 06-23-2024 CNPN Telephone (TYE) -- CLINT VILLAR ([id number]) 1940 Date Time Provider Department 06/23/24 JOHAN PAYNE During your visit today, we recorded the following information about you: Clare Soriano 06/23/2024 10:23 AM Addendum I called and left a message for Clint to call back to let him know that said his lab work is schedule for to early at 06/25/24 and it needs rescheduled to the week of his appointment, either Friday or Friday of that week. I went ahead and moved him to Friday07/05/24. Please confirm this new date and time with him or move it to something that works better for him when he calls back. Kristofer Bae, RN 06/23/2024 10:33 AM Signed Pt returned call and given provider's message below with verbalized understanding. Patient agreeable and understands his lab appt is 07/05/24 @ 7:15 am and his appt with Dr. Payne is 07/09/24 @ 8:15 am. Pt states this is fine with him. Allergies As of Date: 06/23/2024 Noted Allergy Reaction LATEX 03/15/2024 2 - Rash Date Reviewed: 06/21/2024 Reviewed by: Earnestine Montes RT(R) - Fully Assessed Reason for Visit: Appointment [186] Prescriptions as of 06/23/2024 - pantoprazole DR (PROTONIX) 20 mg tablet Take 1 tablet by mouth once daily. - ferrous sulfate 325 mg (65 mg iron) tablet Take 1 tablet by mouth once daily. - ascorbic acid, vitamin C, (VITAMIN C) 500 mg tablet Take 1 tablet by mouth once daily. - cyclobenzaprine (FLEXERIL) 10 mg tablet Take 1 tablet by mouth two times a day as needed for muscle spasm. - iv contrast (will be provided with radiology test) CT Urogram WO/W Inject, intravenously, once for 1 dose.No IV access, insert saline lock prior to the beginning of sedation, infusion, injection of imaging exam. Discontinue saline lock post exam. If Pt. has a central line or IVAD, may access for administration according to line specific nursing protocol. Once exam is complete flush line and de-access according to line specific nursing protocol in the CT contrast administration guidelines link. - valACYclovir (VALTREX) 500 mg tablet Take 1 tablet by mouth once daily. - bicalutamide (CASODEX) 50 mg tablet Take 1 tablet by mouth once daily. Take for 10 days starting when you get lupron injection - hydrOXYzine HCl (ATARAX) 25 mg tablet Take 1 tablet by mouth daily at bedtime. - losartan (COZAAR) 100 mg tablet Take 1 tablet by mouth once daily. - atorvastatin (LIPITOR) 40 mg tablet Take 1 tablet by mouth daily at bedtime. - tamsulosin (FLOMAX) 0.4 mg Take 2 capsules by mouth daily at bedtime. - levothyroxine (SYNTHROID) 112 mcg tablet Take 1 tablet by mouth once daily. Take on empty stomach. For thyroid - apixaban (ELIQUIS) 5 mg tab(s) Take 1 tablet by mouth two times a day. - amLODIPine (NORVASC) 5 mg tablet Take 1 tablet by mouth once daily. 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] 03/08/2014 05/23/2015 Hypothyroidism [E03.9] 07/21/2014 Herpes infection [B00.9] 05/23/2015 Muscle spasm of back [M62.830] 05/23/2015 Impaired fasting glucose [R73.01] 12/19/2016 Obesity, Class I, BMI 30-34.9 [E66.811] 01/29/2019 06/02/2020 Obesity, Class II, BMI 35-39.9 [E66.812] 06/02/2020 10/25/2023 COVID-19 virus infection [U07.1] 07/03/2020 12/06/2020 Erectile dysfunction [N52.9] 06/21/2021 Urinary frequency [R35.0] 06/21/2021 Anemia [D64.9] 12/27/2021 Positive colorectal cancer screening using [place]*01/03/2023 02/26/2024 Elevated PSA [R97.20] 01/09/2023 New onset atrial fibrillation (HCC) [I48.91] 06/23/2023 10/21/2023 Obesity, Class I, BMI 30-34.9 [E66.811] 07/24/2023 Paroxysmal atrial fibrillation (HCC) [I48.0] 10/21/2023 At risk for stroke [Z91.89] 10/21/2023 Anticoagulant long-term use [Z79.01] 10/21/2023 Peripheral vascular disease, unspecified (HCC) *10/16/2023 Rectal mass [K62.89] 12/04/2023 02/26/2024 Prostate cancer (HCC) [C61] 02/13/2024 Obstructive uropathy [N13.9] 02/26/2024 Preop testing [Z01.818] 03/05/2024 04/23/2024 Bilateral hydronephrosis [N13.30] 03/08/2024 Acute urinary retention [R33.8] 03/24/2024 Gastroesophageal reflux disease [K21.9] 05/21/2024 Encounter Status:Closed by Kristofer MATTHEW on 06/23/24 Normal [facility] CT UROGRAM WO/W IVCONon 02-1 CT UROGRAM WO/W IVCON * * *Final Report* * * DATE OF EXAM: Jun 21 2024 11:15AM [facility] 0560 - CT UROGRAM WO/W IVCON / PROCEDURE REASON: multiple diagnoses * * * * Physician Interpretation * * * * EXAMINATION: CT ABDOMEN AND PELVIS WITHOUT AND WITH IV CONTRAST, INCLUDING EXCRETORY PHASE IMAGING (CT UROGRAM) 3D RECONSTRUCTIONS CLINICAL HISTORY: Metastatic prostate cancer TECHNIQUE: CT urogram protocol including unenhanced, renal parenchymal phase and excretory phase renal imaging was obtained following IV contrast. Normal saline was also administered IV. No oral contrast was given. 3D image post-processing was performed and archived at the request of the referring physician, on the CT scanner workstation without concurrent physician supervision. MQ: CTU_2 Contrast: IV: 150 ml of Omnipaque 300 Oral Contrast: None CT Radiation dose: Integrated dose-length product (DLP) for this visit = 2284.02 mGy*cm. CT Dose Reduction Employed: Automated exposure control (AEC) COMPARISON: 02/27/2024 RESULT: Kidneys and urinary tract: Right: There are no renal calculi or masses. Ureteral stent present. Dilated extrarenal pelvis. Otherwise, the opacified calices and ureter are normal without dilation, filling defect, or stricture. Left: There are no renal calculi or masses. Ureteral stent present. Dilated extrarenal pelvis. Otherwise, the opacified calices and ureter are normal without dilation, filling defect, or stricture. Bladder: No filling defect, calculus, focal or diffuse wall thickening. Abdomen and Pelvis: Liver: There are a few, small low attenuation hepatic lesions. While they are too small to be evaluated, they are probably benign. Biliary: No bile duct dilation. Spleen: No mass. No splenomegaly. Pancreas: No mass or duct dilation. Adrenals: No mass. GI tract: No dilation or wall thickening. Lymph nodes: Significant decrease in retroperitoneal lymphadenopathy, index nodes include: * 1.0 cm retrocaval node (4:52), previously 2.0 cm * 1.1 cm left para-aortic node (4:69), previously 2.1 cm * 0.7 cm aortocaval node (4:64), previously 1.7 cm Mesentery/Peritoneum: No ascites or mass. Retroperitoneum: No mass. Vasculature: The celiac axis and SMA are patent. The portal vein and branches, splenic vein, SMV, and hepatic veins are patent. There are atherosclerotic changes without aneurysmal dilation. Pelvis: No mass, ascites or fluid collection. Bones and Soft Tissues: Degenerative changes. New sclerotic lesions in the T12, L2, L5 and S2 vertebral bodies. Grade 2 anterolisthesis of L5 on S1 secondary to bilateral L5 pars defects. Lower thorax: Punctate calcified granuloma left lower lobe. Localizer images: No additional findings. IMPRESSION: Significant improvement in retroperitoneal lymphadenopathy. New presumed metastatic bone lesions. Resolved hydronephrosis status post ureteral stent placement. Cost Estimating Manager: [facility] Transcribe Date/Time: Jun 26 2024 7:20P Dictated by : JANIA SALGUERO MD This examination was interpreted and the report reviewed and electronically signed by: JANIA SALGUERO MD on Jun 26 2024 7:35PM EST [id number] [facility] CNOVon 06-16-2024 CNOV Office Visit (UCWSTR ) -- CLINT VILLAR ([id number]) 1940 M Date Time Provider Department 06/16/24 3:15 PM VALENTINA BERRY [facility] During your visit today, we recorded the following information about you: Temperature Pulse Respiration Blood pressure 98.2 degrees 58/minute 18/minute 114/61 Weight 89.5 kg Valentina Berry PA-C 06/16/2024 3:24 PM Signed This note was created using Alum.niriter. Subjective Clint Salmeron Jian is a 83 year old male. Patient is an 83-year-old male who complains of congestion and cough that developed last evening. Patient also reports mild sinus pressure. Patient denies ear pain or sore throat. Patient reports no fever, chills or myalgia. Patient has no history of asthma or COPD and does not smoke. Review of Systems HENT: Positive for congestion and sinus pressure. Respiratory: Positive for cough. All other systems reviewed and are negative. Objective BP 114/61 Pulse (!) 58 Temp 36.8 ?C (98.2 ?F) Resp 18 Wt 89.5 kg (197 lb 5 oz) SpO2 97% BMI 32.09 kg/m? Physical Exam Vitals and nursing note reviewed. Constitutional: Appearance: Normal appearance. He is normal weight. HENT: Head: Normocephalic and atraumatic. Right Ear: Tympanic membrane, ear canal and external ear normal. Left Ear: Tympanic membrane, ear canal and external ear normal. Nose: Nose normal. Mouth/Throat: Mouth: Mucous membranes are moist. Pharynx: Oropharynx is clear. Eyes: Extraocular Movements: Extraocular movements intact. Conjunctiva/sclera: Conjunctivae normal. Pupils: Pupils are equal, round, and reactive to light. Cardiovascular: Rate and Rhythm: Normal rate and regular rhythm. Pulses: Normal pulses. Heart sounds: Normal heart sounds. Pulmonary: Effort: Pulmonary effort is normal. Breath sounds: Normal breath sounds. Musculoskeletal: Cervical back: Normal range of motion and neck supple. Skin: General: Skin is warm and dry. Capillary Refill: Capillary refill takes less than 2 seconds. Neurological: General: No focal deficit present. Mental Status: He is alert and oriented to person, place, and time. Psychiatric: Mood and Affect: Mood normal. Behavior: Behavior normal. Thought Content: Thought content normal. Judgment: Judgment normal. Assessment and Plan Fully unremarkable physical exam findings as noted above. Rapid influenza A/B test is negative. Supportive care instructions were discussed and the patient verbalizes excellent understanding of same. CLINICAL IMPRESSION: Acute URI ASSESSMENT/PLAN: 1. Acute URI - ICD9: 465.9, ICD10: J06.9 - INFLUENZA AANDB MOLECULAR (POC) Valentina Berry PA-C Allergies As of Date: 06/16/2024 Noted Allergy Reaction LATEX 03/15/2024 2 - Rash Date Reviewed: 06/16/2024 Reviewed by: Peace Hilario MA - Fully Assessed Reason for Visit: Head Congestion [234] Cmt: Cough, fatigue x1 day Primary Visit Diagnosis:Acute URI [J06.9] Order(s):INFLUENZA AANDB MOLECULAR (POC) [[id number]] Order #: [id number]. #:[id number] [id number] Prescriptions as of 06/16/2024 - nitrofurantoin monohydrate and macrocrystal (MACROBID) 100 mg capsule Take 1 capsule by mouth two times a day for 7 days. - pantoprazole DR (PROTONIX) 20 mg tablet Take 1 tablet by mouth once daily. - ferrous sulfate 325 mg (65 mg iron) tablet Take 1 tablet by mouth once daily. - ascorbic acid, vitamin C, (VITAMIN C) 500 mg tablet Take 1 tablet by mouth once daily. - cyclobenzaprine (FLEXERIL) 10 mg tablet Take 1 tablet by mouth two times a day as needed for muscle spasm. - iv contrast (will be provided with radiology test) CT Urogram WO/W Inject, intravenously, once for 1 dose.No IV access, insert saline lock prior to the beginning of sedation, infusion, injection of imaging exam. Discontinue saline lock post exam. If Pt. has a central line or IVAD, may access for administration according to line specific nursing protocol. Once exam is complete flush line and de-access according to line specific nursing protocol in the CT contrast administration guidelines link. - valACYclovir (VALTREX) 500 mg tablet Take 1 tablet by mouth once daily. - bicalutamide (CASODEX) 50 mg tablet Take 1 tablet by mouth once daily. Take for 10 days starting when you get lupron injection - hydrOXYzine HCl (ATARAX) 25 mg tablet Take 1 tablet by mouth daily at bedtime. - losartan (COZAAR) 100 mg tablet Take 1 tablet by mouth once daily. - atorvastatin (LIPITOR) 40 mg tablet Take 1 tablet by mouth daily at bedtime. - tamsulosin (FLOMAX) 0.4 mg Take 2 capsules by mouth daily at bedtime. - levothyroxine (SYNTHROID) 112 mcg tablet Take 1 tablet by mouth once daily. Take on empty stomach. For thyroid - apixaban (ELIQUIS) 5 mg tab(s) Take 1 tablet by mouth two times a day. - amLODIPine (NORVASC) 5 mg tablet Take 1 tablet by mouth once daily. Probl (more content not included)... Normal [facility] INFLUENZA A&B MOLECULAR (POC )on 06-16-2024 Flu A (POCT) Negative Negative [facility] Flu B (POCT) Negative Negative [facility] Procedural Control Valid [facility] Location:[facility], [place], [address] [facility] POINT OF CARE [facility] CNOVSPon 05-28-2024 CNOVSP Visit (SP) Office (H EMAWS) -- JIANCLINT Salmeron ([id number]) 1940 Date Time Provider Department 05/28/24 8:30 AM PINA SCHUSTER During your visit today, we recorded the following information about you: Temperature Pulse Blood pressure Weight 97.1 degrees 82/minute 129/78 87.1 kg Height 1.67 m Pina Schuster 05/28/2024 2:46 PM Signed Clint Salmeron Jian 1940 05/28/2024 HISTORY OF PRESENT ILLNESS: Clint Villar is a 83 year old male in excellent health had a cologuard come back positive. A colonography CT scan was done that showed retroperitoneal adenopathy, enlarged prostate gland and possible rectal mass. Colonoscopy was negative for rectal mass. Saw urology PSA 73.59 (was 71 in January 2023). Prostate enlarged and firm. Biopsy of prostate is planned for mid January. 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 Reviewed case also with Dr Aguilar. Met in follow up, reviewed prostate biopsy shows adenocarcinoma. Bone scan focally positive. Interval hx: Pt presents today for follow up of prostate cancer. PSA pending today. Reports feeling well overall. Currently being treated for UTI. Started abx yesterday. Was having dysuria. No noticeable hematuria. Otherwise denies new issues. No new aches or pains. No SOB, CP. Palpitations. No changes in bowel habits. No bleeding. CLINICAL IMPRESSION: Prostate Cancer, castrate sensitive metastatic Cindy 8 04/15 cores Obstructive retroperitoneal adenopathy - completed radiation with Dr. Aguilar 03/09/24 - 03/23/24 RECOMMENDATION/PLAN: 1. Continue with lupron 2. Follow up with urology. Has upcoming appt and CT urogram scheduled 3. 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 PAST SURGICAL HISTORY 2005: OPEN REPAIR OF ROTATOR CUFF ACUTE; Right Comment: Rotator cuff repair, right 1950s: TONSILLECTOMY PRIMARY/SECONDARY Comment: Tonsillectomy FAMILY HISTORY Problem Relation Age of Onset other (Other) Mother no contact Coronary Artery Disease Father Heart Failure Father Diabetes Father Cancer Paternal Grandfather Cancer Half-brother Social History Tobacco Use Smoking status: Former Types: Cigarettes Smokeless tobacco: Never Tobacco comments: Pt smoked 1 pack daily x 20 years, Vaping Use Vaping status: Never Used Substance Use Topics Alcohol use: Yes Alcohol/week: 1.0 standard drink of alcohol Types: 1 Cans of beer per week Drug use: Never ALLERGIES: ALLERGIES No Known Allergies CURRENT OUTPATIENT MEDICATIONS: levothyroxine (SYNTHROID) 112 mcg tablet Take 1 tablet by mouth once daily. Take on empty stomach. For thyroid finasteride (PROSCAR) 5 mg tablet Take 1 tablet by mouth once daily apixaban (ELIQUIS) 5 mg tab(s) Take 1 tablet by mouth two times a day. metoprolol tartrate, short acting, (LOPRESSOR) 50 mg tablet Take 1 tablet by mouth two times a day. amLODIPine (NORVASC) 5 mg tablet Take 1 tablet by mouth once daily. hydrOXYzine HCl (ATARAX) 25 mg tablet Take 1 tablet by mouth daily at bedtime. losartan (COZAAR) 100 mg tablet Take 1 tablet by mouth once daily. valACYclovir (VALTREX) 500 mg tablet Take 1 tablet by mouth once daily. atorvastatin (LIPITOR) 40 mg tablet Take 1 tablet by mouth daily at bedtime. tamsulosin (FLOMAX) 0.4 mg Take 2 capsules by mouth daily at bedtime. cyclobenzaprine (FLEXERIL) 10 mg tablet Take 1 tablet by mouth twice daily as needed for muscle spasm. levoFLOXacin (LEVAQUIN) 750 mg tablet Take 1 tablet by mouth once daily. Start the day before the biopsy LABS: Lab Results Component Value Date PSA 5.94 (H) 04/14/2024 PSA 5.50 (H) 04/13/2024 PSA 73.59 (H) 10/22/2023 PSA 71.22 (H) 01/03/2023 Pending today REVIEW OF SYSTEMS: GENERAL: No fever, night sweats, weight loss or malaise. All other reviewed and neg (more content not included)... Normal [facility] Tray 05-28-2024 [facility] Telephone ([id number]) -- CLINT VILLAR ([id number]) 1940 Date Time Provider Department 05/28/24 JACOB JENKINS [id number] During your visit today, we recorded the following information about you: Jacob Jenkins APRN.CNP 05/28/2024 3:08 PM Signed Discussed with patient sheldont julio. Advised patient that we will have to await results of CTU prior to discussion of removal of stents/replacement. Advised patient that travel is possible with the stents in place and discussed bladder irritants as well as drinking plenty of water and keeping stools soft and regular. Jacob Jenkins APRN.CNP Allergies As of Date: 05/28/2024 Noted Allergy Reaction LATEX 03/15/2024 2 - Rash Comments: Rash to skin Date Reviewed: 05/28/2024 Reviewed by: Dawn Jaimes LPN - Fully Assessed Prescriptions as of 05/28/2024 - nitrofurantoin monohydrate and macrocrystal (MACROBID) 100 mg capsule Take 1 capsule by mouth two times a day for 7 days. - pantoprazole DR (PROTONIX) 20 mg tablet Take 1 tablet by mouth once daily. - ferrous sulfate 325 mg (65 mg iron) tablet Take 1 tablet by mouth once daily. - ascorbic acid, vitamin C, (VITAMIN C) 500 mg tablet Take 1 tablet by mouth once daily. - cyclobenzaprine (FLEXERIL) 10 mg tablet Take 1 tablet by mouth two times a day as needed for muscle spasm. - iv contrast (will be provided with radiology test) CT Urogram WO/W Inject, intravenously, once for 1 dose.No IV access, insert saline lock prior to the beginning of sedation, infusion, injection of imaging exam. Discontinue saline lock post exam. If Pt. has a central line or IVAD, may access for administration according to line specific nursing protocol. Once exam is complete flush line and de-access according to line specific nursing protocol in the CT contrast administration guidelines link. - valACYclovir (VALTREX) 500 mg tablet Take 1 tablet by mouth once daily. - bicalutamide (CASODEX) 50 mg tablet Take 1 tablet by mouth once daily. Take for 10 days starting when you get lupron injection - hydrOXYzine HCl (ATARAX) 25 mg tablet Take 1 tablet by mouth daily at bedtime. - losartan (COZAAR) 100 mg tablet Take 1 tablet by mouth once daily. - atorvastatin (LIPITOR) 40 mg tablet Take 1 tablet by mouth daily at bedtime. - tamsulosin (FLOMAX) 0.4 mg Take 2 capsules by mouth daily at bedtime. - levothyroxine (SYNTHROID) 112 mcg tablet Take 1 tablet by mouth once daily. Take on empty stomach. For thyroid - apixaban (ELIQUIS) 5 mg tab(s) Take 1 tablet by mouth two times a day. - amLODIPine (NORVASC) 5 mg tablet Take 1 tablet by mouth once daily. 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] 03/08/2014 05/23/2015 Hypothyroidism [E03.9] 07/21/2014 Herpes infection [B00.9] 05/23/2015 Muscle spasm of back [M62.830] 05/23/2015 Impaired fasting glucose [R73.01] 12/19/2016 Obesity, Class I, BMI 30-34.9 [E66.811] 01/29/2019 06/02/2020 Obesity, Class II, BMI 35-39.9 [E66.812] 06/02/2020 10/25/2023 COVID-19 virus infection [U07.1] 07/03/2020 12/06/2020 Erectile dysfunction [N52.9] 06/21/2021 Urinary frequency [R35.0] 06/21/2021 Anemia [D64.9] 12/27/2021 Positive colorectal cancer screening using [place] [employer]*01/03/2023 02/26/2024 Elevated PSA [R97.20] 01/09/2023 New onset atrial fibrillation (HCC) [I48.91] 06/23/2023 10/21/2023 Obesity, Class I, BMI 30-34.9 [E66.811] 07/24/2023 Paroxysmal atrial fibrillation (HCC) [I48.0] 10/21/2023 At risk for stroke [Z91.89] 10/21/2023 Anticoagulant long-term use [Z79.01] 10/21/2023 Peripheral vascular disease, unspecified (HCC) *10/16/2023 Rectal mass [K62.89] 12/04/2023 02/26/2024 Prostate cancer (HCC) [C61] 02/13/2024 Obstructive uropathy [N13.9] 02/26/2024 Preop testing [Z01.818] 03/05/2024 04/23/2024 Bilateral hydronephrosis [N13.30] 03/08/2024 Acute urinary retention [R33.8] 03/24/2024 Gastroesophageal reflux disease [K21.9] 05/21/2024 Encounter Status:Closed by JACOB JENKINS on 05/28/24 [facility] Prostate specific Ag [Mass/Vol] 3.05 ng/mL High <2.60 [facility] Comment on above: Order Comment: Speci men Type: BLOOD SPECIMENOrdering Facility: [facility] Address: [address] [place] [address] Result Comment: Katharina zuniga PSA test methodology used is the Electrochemiluminescence Immunoassay by [employer]. Total PSA values by differing methodologies cannot be interchanged. For an individual patient, the significance of a PSA level should be interpreted in a broad clinical context, including age, race, family history, digital rectal exam, prostate size, results of prior testing (prostate biopsy, free PSA, PCA3), and use of 5-alpha reductase inhibitors. Considering the high incidence of asymptomatic cancer in the general population that may not pose an ultimate risk to a patient, the decision to recommend urological evaluation or prostate biopsy should be individualized after consideration of all these factors. REFERENCE: Zeenat Plummer M.D., M.P.H., Ramirez Lance M.D., Ph.D., Adithya Owens M.D., Ariana Gabriel, M.P.H., Dee Rios, ScHilda. Effect of Verification Bias on Screening for Prostate Cancer by Measurement of Prostatic Specific Antigen. N Engl J Med 2003,349:335-42. Performed By: #### 2 857-1 ####[facility] LABCLIA [id number] [facility] [id number] [place] [id number] [facility] Tray 05-27-2024 [facility] Telephone ([id number]) -- LCINT VILLAR ([id number]) 1940 M Date Time Provider Department 05/27/24 JACOB JENKINS [id number] During your visit today, we recorded the following information about you: Jacob Jenkins APRN.[employer] ATTENDANT 05/27/2024 3:16 PM Signed Left VM for patient to return call. Jacob Jenkins APRN.CNP Allergies As of Date: 05/27/2024 Noted Allergy Reaction LATEX 03/15/2024 2 - Rash Comments: Rash to skin Date Reviewed: 05/21/2024 Reviewed by: Lucia Abbott MA - Fully Assessed Reason for Visit: Appointment [186] Prescriptions as of 05/27/2024 - nitrofurantoin monohydrate and macrocrystal (MACROBID) 100 mg capsule Take 1 capsule by mouth two times a day for 7 days. - pantoprazole DR (PROTONIX) 20 mg tablet Take 1 tablet by mouth once daily. - ferrous sulfate 325 mg (65 mg iron) tablet Take 1 tablet by mouth once daily. - ascorbic acid, vitamin C, (VITAMIN C) 500 mg tablet Take 1 tablet by mouth once daily. - cyclobenzaprine (FLEXERIL) 10 mg tablet Take 1 tablet by mouth two times a day as needed for muscle spasm. - iv contrast (will be provided with radiology test) CT Urogram WO/W Inject, intravenously, once for 1 dose.No IV access, insert saline lock prior to the beginning of sedation, infusion, injection of imaging exam. Discontinue saline lock post exam. If Pt. has a central line or IVAD, may access for administration according to line specific nursing protocol. Once exam is complete flush line and de-access according to line specific nursing protocol in the CT contrast administration guidelines link. - valACYclovir (VALTREX) 500 mg tablet Take 1 tablet by mouth once daily. - bicalutamide (CASODEX) 50 mg tablet Take 1 tablet by mouth once daily. Take for 10 days starting when you get lupron injection - hydrOXYzine HCl (ATARAX) 25 mg tablet Take 1 tablet by mouth daily at bedtime. - losartan (COZAAR) 100 mg tablet Take 1 tablet by mouth once daily. - atorvastatin (LIPITOR) 40 mg tablet Take 1 tablet by mouth daily at bedtime. - tamsulosin (FLOMAX) 0.4 mg Take 2 capsules by mouth daily at bedtime. - levothyroxine (SYNTHROID) 112 mcg tablet Take 1 tablet by mouth once daily. Take on empty stomach. For thyroid - apixaban (ELIQUIS) 5 mg tab(s) Take 1 tablet by mouth two times a day. - amLODIPine (NORVASC) 5 mg tablet Take 1 tablet by mouth once daily. 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] 03/08/2014 05/23/2015 Hypothyroidism [E03.9] 07/21/2014 Herpes infection [B00.9] 05/23/2015 Muscle spasm of back [M62.830] 05/23/2015 Impaired fasting glucose [R73.01] 12/19/2016 Obesity, Class I, BMI 30-34.9 [E66.811] 01/29/2019 06/02/2020 Obesity, Class II, BMI 35-39.9 [E66.812] 06/02/2020 10/25/2023 COVID-19 virus infection [U07.1] 07/03/2020 12/06/2020 Erectile dysfunction [N52.9] 06/21/2021 Urinary frequency [R35.0] 06/21/2021 Anemia [D64.9] 12/27/2021 Positive colorectal cancer screening using [place]*01/03/2023 02/26/2024 Elevated PSA [R97.20] 01/09/2023 New onset atrial fibrillation (HCC) [I48.91] 06/23/2023 10/21/2023 Obesity, Class I, BMI 30-34.9 [E66.811] 07/24/2023 Paroxysmal atrial fibrillation (HCC) [I48.0] 10/21/2023 At risk for stroke [Z91.89] 10/21/2023 Anticoagulant long-term use [Z79.01] 10/21/2023 Peripheral vascular disease, unspecified (HCC) *10/16/2023 Rectal mass [K62.89] 12/04/2023 02/26/2024 Prostate cancer (HCC) [C61] 02/13/2024 Obstructive uropathy [N13.9] 02/26/2024 Preop testing [Z01.818] 03/05/2024 04/23/2024 Bilateral hydronephrosis [N13.30] 03/08/2024 Acute urinary retention [R33.8] 03/24/2024 Gastroesophageal reflux disease [K21.9] 05/21/2024 Encounter Status:Closed by JACOB JENKINS on 05/27/24 [facility] Bacteria Ur Culton Bacteria identified Cx Nom (U) ORGANISM ID: 1 10,000 -<50,000 CFU/ml Enterococcus faecalis Cephalosporins, clindamycin, and TMP-SMX are not effective for the treatment of enterococcal infections. ORGANISM ID: 1 (ENTEROCOCCUS FAECALIS) ANTIBIOTIC INTERPRETATION LORETTA STATUS REFERENCE RANGE Ampicillin S <=2 F Susceptible <=8 , Resistant >8 Vancomycin S 2 F Susceptible <=4 , Intermediate >4 , Resistant >16 Nitrofurantoin S <=16 F Susceptible <=32 , Intermediate >32 , Resistant >64 Abnormal [facility] Comment on above: Performed By: #### 6 30-4 ####[facility] LABCLIA [id number] [facility] [id number] [place], [place] [id number] [facility] CNOVon 05-21-2024 CNOV Office Visit (INTMWS ) -- JIANCLINT ([id number]) 1940 M Date Time Provider Department 05/21/24 8:20 AM CODY CARRINGTON INTMWS During your visit today, we recorded the following information about you: Temperature Pulse Respiration Blood pressure 97.3 degrees 49/minute 14/minute 116/64 Weight 86.4 kg Cody Carrington MD 05/21/2024 9:00 AM Signed This note was created using Alum.niriter. Subjective Clint Villar is a 83 year old male. He had admission for complicated urinary tract infection. He was better in some respects but continued to have pelvic pains with urination. He had stents in place, scheduled to be reevaluated by urology next month. His fatigue was better. His anemia was better. He saw cardiology last month and due to significant bradycardia he was instructed to reduce metoprolol to 25 mg BID. He misunderstood and was taking 50 mg 1/2 tablet daily. He now gave a longstanding history of acid reflux, taking over the counter omeprazole. He was advised in the hospital to stop omeprazole due to an interaction, and his GERD was not being controlled with famotidine 3 tablets daily. Review of Systems Constitutional: Positive for fatigue. Negative for chills, diaphoresis and fever. Respiratory: Negative for chest tightness and shortness of breath. Cardiovascular: Negative for chest pain, palpitations and leg swelling. Gastrointestinal: Positive for abdominal pain. Negative for nausea and vomiting. Genitourinary: Positive for dysuria. Negative for difficulty urinating, flank pain and hematuria. 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 ascorbic acid, vitamin C, (VITAMIN C) 500 mg tablet Take 1 tablet by mouth once daily. cyclobenzaprine (FLEXERIL) 10 mg tablet Take 1 tablet by mouth two times a day as needed for muscle spasm. valACYclovir (VALTREX) 500 mg tablet Take 1 tablet by mouth once daily. hydrOXYzine HCl (ATARAX) 25 mg tablet Take 1 tablet by mouth daily at bedtime. losartan (COZAAR) 100 mg tablet Take 1 tablet by mouth once daily. atorvastatin (LIPITOR) 40 mg tablet Take 1 tablet by mouth daily at bedtime. tamsulosin (FLOMAX) 0.4 mg Take 2 capsules by mouth daily at bedtime. levothyroxine (SYNTHROID) 112 mcg tablet Take 1 tablet by mouth once daily. Take on empty stomach. For thyroid apixaban (ELIQUIS) 5 mg tab(s) Take 1 tablet by mouth two times a day. amLODIPine (NORVASC) 5 mg tablet Take 1 tablet by mouth once daily. ferrous sulfate 325 mg (65 mg iron) tablet Take 1 tablet by mouth once daily. iv contrast (will be provided with radiology test) CT Urogram WO/W Inject, intravenously, once for 1 dose.No IV access, insert saline lock prior to the beginning of sedation, infusion, injection of imaging exam. Discontinue saline lock post exam. If Pt. has a central line or IVAD, may access for administration according to line specific nursing protocol. Once exam is complete flush line and de-access according to line specific nursing protocol in the CT contrast administration guidelines link. bicalutamide (CASODEX) 50 mg tablet Take 1 tablet by mouth once daily. Take for 10 days starting when you get lupron injection No current facility-administered medications for this visit. Objective BP 116/64 Pulse (!) 49 Temp 36.3 ?C (97.3 ?F) (Temporal) Resp 14 Wt 86.4 kg (190 lb 7.6 oz) SpO2 98% BMI 30.74 kg/m? Physical Exam Constitutional: General: He is not in acute distress. Appearance: He is not ill-appearing or diaphoretic. Cardiovascular: Rate and Rhythm: Regular rhythm. Bradycardia present. Heart sounds: No murmur heard. No gallop. Pulmonary: Breath sounds: Normal breath sounds. Abdominal: General: There is no distension. Palpations: Abdomen is soft. Tenderness: There is no abdominal tenderness. There is no right CVA tenderness or left CVA tenderness. Musculoskeletal: Right lower leg: No edema. Left lower leg: No edema. Neurological: Mental Status: He is alert. Gait: Gait normal. Latest Ref Rng 05/21/2024 GLUCOSE UA (POCT) Negative mg/dL Negative BILIRUBIN UA (POCT) Negative Negative KETONE UA (POCT) Negative mg/dL Negative SPECIFIC GRAVITY UA (POCT) 1.005 - 1.030 1.015 HEMOGLOBIN/BLOOD UA (POCT) Negativ (more content not included)... Normal [facility] UA DIP, URINE (POC)on 2024 BILIRUBIN UA (POCT) Negative Negative [facility] CLARITY UA (POCT) Clear [facility] COLOR UA (POCT) Yellow [facility] GLUCOSE UA (POCT) Negative Negative mg/dL [facility] Hemoglobin Ql (U) Small Abnormal Negative [facility] Interpretation and review of laboratory results Abnormal [facility] KETONE UA (POCT) Negative Negative mg/dL [facility] LEUKOCYTES UA (POCT) Large Abnormal [facility] NITRITE UA (POCT) Negative Negative [facility] PH UA (POCT) 6.5 4.5 - 8.0 [facility] Protein Ql (U) 30 mg/dL Abnormal Negative [facility] SPECIFIC GRAVITY UA (POCT) 1.015 1.005 - 1.030 [facility] UROBILINOGEN UA (POCT) 0.2 Normal E.U./dL [facility] Location:[facility], [address], [place], [address] [facility] POINT OF CARE [facility] Tray 05-06-2024 [place] Telephone (URCANT) -- CLINT VILLAR ([id number]) 1940 M Date Time Provider Department 05/06/24 RADHA LARSEN During your visit today, we recorded the following information about you: Shanthi Solis 05/06/2024 3:09 PM Signed Patient is leaving for [place] 08/01/24, I spoke with the today and she is asking if the stents will be removed prior to their vacation. They currently are scheduled for the CT Urogram 06/21/24 and an established follow up 07/15/24. Please advise, thank you. Allergies As of Date: 05/06/2024 Noted Allergy Reaction LATEX 03/15/2024 2 - Rash Comments: Rash to skin Date Reviewed: 04/26/2024 Reviewed by: Leela Drake, DISTRIBUTION SPEC.[employer]ATION ATTENDANT - Fully Assessed Reason for Visit: Patient Update [1234] Prescriptions as of 05/07/2024 - ferrous sulfate 325 mg (65 mg iron) tablet Take 1 tablet by mouth once daily. - ascorbic acid, vitamin C, (VITAMIN C) 500 mg tablet Take 1 tablet by mouth once daily. - cyclobenzaprine (FLEXERIL) 10 mg tablet Take 1 tablet by mouth two times a day as needed for muscle spasm. - iv contrast (will be provided with radiology test) CT Urogram WO/W Inject, intravenously, once for 1 dose.No IV access, insert saline lock prior to the beginning of sedation, infusion, injection of imaging exam. Discontinue saline lock post exam. If Pt. has a central line or IVAD, may access for administration according to line specific nursing protocol. Once exam is complete flush line and de-access according to line specific nursing protocol in the CT contrast administration guidelines link. - valACYclovir (VALTREX) 500 mg tablet Take 1 tablet by mouth once daily. - bicalutamide (CASODEX) 50 mg tablet Take 1 tablet by mouth once daily. Take for 10 days starting when you get lupron injection - hydrOXYzine HCl (ATARAX) 25 mg tablet Take 1 tablet by mouth daily at bedtime. - losartan (COZAAR) 100 mg tablet Take 1 tablet by mouth once daily. - atorvastatin (LIPITOR) 40 mg tablet Take 1 tablet by mouth daily at bedtime. - tamsulosin (FLOMAX) 0.4 mg Take 2 capsules by mouth daily at bedtime. - levothyroxine (SYNTHROID) 112 mcg tablet Take 1 tablet by mouth once daily. Take on empty stomach. For thyroid - apixaban (ELIQUIS) 5 mg tab(s) Take 1 tablet by mouth two times a day. - metoprolol tartrate, short acting, (LOPRESSOR) 50 mg tablet Take 1 tablet by mouth two times a day. - amLODIPine (NORVASC) 5 mg tablet Take 1 tablet by mouth once daily. 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] 03/08/2014 05/23/2015 Hypothyroidism [E03.9] 07/21/2014 Herpes infection [B00.9] 05/23/2015 Muscle spasm of back [M62.830] 05/23/2015 Impaired fasting glucose [R73.01] 12/19/2016 Obesity, Class I, BMI 30-34.9 [E66.811] 01/29/2019 06/02/2020 Obesity, Class II, BMI 35-39.9 [E66.812] 06/02/2020 10/25/2023 COVID-19 virus infection [U07.1] 07/03/2020 12/06/2020 Erectile dysfunction [N52.9] 06/21/2021 Urinary frequency [R35.0] 06/21/2021 Anemia [D64.9] 12/27/2021 Positive colorectal cancer screening using [place]*01/03/2023 02/26/2024 Elevated PSA [R97.20] 01/09/2023 New onset atrial fibrillation (HCC) [I48.91] 06/23/2023 10/21/2023 Obesity, Class I, BMI 30-34.9 [E66.811] 07/24/2023 Paroxysmal atrial fibrillation (HCC) [I48.0] 10/21/2023 At risk for stroke [Z91.89] 10/21/2023 Anticoagulant long-term use [Z79.01] 10/21/2023 Peripheral vascular disease, unspecified (HCC) *10/16/2023 Rectal mass [K62.89] 12/04/2023 02/26/2024 Prostate cancer (HCC) [C61] 02/13/2024 Obstructive uropathy [N13.9] 02/26/2024 Preop testing [Z01.818] 03/05/2024 04/23/2024 Bilateral hydronephrosis [N13.30] 03/08/2024 Acute urinary retention [R33.8] 03/24/2024 Encounter Status:Closed by SHANTHI SOLIS on 05/07/24 [facility]ray [facility]20[facility] -- CLINT VILLAR ([id number]) 1940 M Date Time Provider Department 04/29/24 CODY CARRINGTON INTKristoferWS During your visit today, we recorded the following information about you: Skylar Abraham, RN 04/29/2024 3:01 PM Signed Spouse (Susanne) calls to report that it was recommended by provider that patient take Iron d/t his anemia. Susanne picked up Iron 65 mg (ferrous sulfate 325 mg) but wants to verify how often patient should take medication as she doesn't want to give him too much. Currently Susanne is having patient take 1 Iron tablet daily with 1 Vitamin C and will continue until hears any changes from provider. Please review and advise, WOODY Vinson Naz M, APRN.[place] 05/03/2024 7:11 AM Signed Continue with daily iron Leela Drake APRN.Lucia Mcnamara MA 05/03/2024 8:49 AM Signed was notified Lucia Abbott MA Allergies As of Date: 04/29/2024 Noted Allergy Reaction LATEX 03/15/2024 2 - Rash Comments: Rash to skin Date Reviewed: 04/26/2024 Reviewed by: Leela Drake APRN.[place] - Fully Assessed Reason for Visit: Patient Question [0757] Order(s):ferrous sulfate 325 mg (65 mg iron) tabletTake 1 tablet by mouth once daily.Disp: Rfl: ascorbic acid, vitamin C, (VITAMIN C) 500 mg tabletTake 1 tablet by mouth once daily.Disp: Rfl: Prescriptions as of 05/03/2024 - ferrous sulfate 325 mg (65 mg iron) tablet Take 1 tablet by mouth once daily. - ascorbic acid, vitamin C, (VITAMIN C) 500 mg tablet Take 1 tablet by mouth once daily. - cyclobenzaprine (FLEXERIL) 10 mg tablet Take 1 tablet by mouth two times a day as needed for muscle spasm. - iv contrast (will be provided with radiology test) CT Urogram WO/W Inject, intravenously, once for 1 dose.No IV access, insert saline lock prior to the beginning of sedation, infusion, injection of imaging exam. Discontinue saline lock post exam. If Pt. has a central line or IVAD, may access for administration according to line specific nursing protocol. Once exam is complete flush line and de-access according to line specific nursing protocol in the CT contrast administration guidelines link. - valACYclovir (VALTREX) 500 mg tablet Take 1 tablet by mouth once daily. - bicalutamide (CASODEX) 50 mg tablet Take 1 tablet by mouth once daily. Take for 10 days starting when you get lupron injection - hydrOXYzine HCl (ATARAX) 25 mg tablet Take 1 tablet by mouth daily at bedtime. - losartan (COZAAR) 100 mg tablet Take 1 tablet by mouth once daily. - atorvastatin (LIPITOR) 40 mg tablet Take 1 tablet by mouth daily at bedtime. - tamsulosin (FLOMAX) 0.4 mg Take 2 capsules by mouth daily at bedtime. - levothyroxine (SYNTHROID) 112 mcg tablet Take 1 tablet by mouth once daily. Take on empty stomach. For thyroid - apixaban (ELIQUIS) 5 mg tab(s) Take 1 tablet by mouth two times a day. - metoprolol tartrate, short acting, (LOPRESSOR) 50 mg tablet Take 1 tablet by mouth two times a day. - amLODIPine (NORVASC) 5 mg tablet Take 1 tablet by mouth once daily. 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] 03/08/2014 05/23/2015 Hypothyroidism [E03.9] 07/21/2014 Herpes infection [B00.9] 05/23/2015 Muscle spasm of back [M62.830] 05/23/2015 Impaired fasting glucose [R73.01] 12/19/2016 Obesity, Class I, BMI 30-34.9 [E66.811] 01/29/2019 06/02/2020 Obesity, Class II, BMI 35-39.9 [E66.812] 06/02/2020 10/25/2023 COVID-19 virus infection [U07.1] 07/03/2020 12/06/2020 Erectile dysfunction [N52.9] 06/21/2021 Urinary frequency [R35.0] 06/21/2021 Anemia [D64.9] 12/27/2021 Positive colorectal cancer screening using [place]*01/03/2023 02/26/2024 Elevated PSA [R97.20] 01/09/2023 New onset atrial fibrillation (HCC) [I48.91] 06/23/2023 10/21/2023 Obesity, Class I, BMI 30-34.9 [E66.811] 07/24/2023 Paroxysmal atrial fibrillation (HCC) [I48.0] 10/21/2023 At risk for stroke [Z91.89] 10/21/2023 Anticoagulant long-term use [Z79.01] 10/21/2023 Peripheral vascular disease, unspecified (HCC) *10/16/2023 Rectal mass [K62.89] 12/04/2023 02/26/2024 Prostate cancer (HCC) [C61] 02/13/2024 Obstructive uropathy [N13.9] 02/26/2024 Preop testing [Z01.818] 03/05/2024 04/23/2024 Bilateral hydronephrosis [N13.30] 03/08/2024 Acute urinary retention [R33.8] 03/24/2024 Prescriptions ordered this encounter Disp Refills Start End FERROUS SULFATE 325 MG (65 MG IRON) * 05/03/2024 Class: Med Update Route: ORAL Sig: Take 1 tablet by mouth once daily. ASCORBIC ACID (VITAMIN C) 500 MG TAB* 05/03/2024 Class: Med Update Route: ORAL Sig: Take 1 tablet by mouth once daily. Encounter Status:Closed by MARIA DEL ROSARIO ABBOTT (more content not included)... Normal [facility] Cardiology Visit Reporton Cardiology Visit Report [facility] [address] [place] [address] OFFICE VISIT Date of Service: 04/29/24 MR#: [id number] Acct: [id number] Name: CLINT VILLAR Rep #: [id number] : 1940 Provider: ASTER ulrich Age/Sex: 83/M Location: [facility] Status: Signed HPI HPI History of Present Illness Details: Pleasant 83-year-old white male here for a cardiovascular outpatient follow-up. Patient carries a history of paroxysmal atrial fibs. He was evaluated back in June 2023 at [facility] where he was admitted. He was treated with beta-mague therapy and Eliquis and spontaneously converted to sinus rhythm. Since discharge he denies any syncopal or near syncopal spells. He does have some occasional dizziness with exertion and occasionally feels fluttering in his chest. He has noted this fluttering in his chest over the last 5 days and his EKG in the office today shows a coarse atrial fibs with irregular conduction and an average heart rate of 74 bpm at rest. There are minor nonspecific ST-T wave changes noted. The patient's evaluation in June showed no evidence of ischemia he had negative troponins x 3 sets. The patient's echocardiogram done June 17, 2023 showed normal LV size with an EF of 60% no evidence of diastolic dysfunction no regional wall motion abnormalities. RV was normal. The left atrium was moderately enlarged there was a normal size right atrium there was no Doppler evidence of ASD. Patient had no significant mitral or tricuspid valve disease. There was trivial aortic insufficiency and no significant pulmonary valve disease. The patient was evaluated subsequently July 01, 2023 in the ambulatory setting at [facility]. No EKG was done but he was said to be regular sinus rhythm. He denies chest, arm, jaw, or neck discomfort. He denies palpitations. He denies bilateral lower extremity edema. He denies claudication. He denies shortness of breath with activity, shortness of breath at rest, orthopnea, or PND. He denies chronic cough. He denies significant, sudden weight gain. He states mild lightheadedness over the last few days. He denies dizziness, near-syncope, or syncope. He denies blood in urine, blood in stool, or epistaxis. He denies fever with chills. He denies myalgia. He states fatigue that he attributes to recent UTI admission. He acknowledges to be improving. His exercise level has remained stable. 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 Is patient in pain?: No Allergies No Known Allergies Allergy (Verified 04/29/24 09:58) Medications ???Medication ???Instructions ???Recorded ???Confirmed ???Type atorvastatin 40 mg tablet 40 mg PO QHS cholesterol 07/08/19 04/29/24 History losartan 100 mg tablet 100 mg PO QHS bp 07/08/19 04/29/24 History valacyclovir 500 mg tablet 500 mg PO DAILY herpes 07/03/20 04/29/24 History hydroxyzine HCl 25 mg tablet 25 mg PO QHS anxiety 06/16/23 04/29/24 History tamsulosin 0.4 mg capsule 0.4 mg PO BID prostate 06/16/23 04/29/24 History amlodipine 10 mg tablet 5 mg (1/2 x 10 mg) PO DAILY blood 06/17/23 04/29/24 Rx pressure #1 TAB finasteride 5 mg tablet 5 mg PO DAILY 09/22/23 04/29/24 History levothyroxine 112 mcg tablet 112 mcg PO DAILY 09/22/23 04/29/24 History (Synthroid) ondansetron 8 mg disintegrating 8 mg PO Q8H PRN PRN nausea/vomiting 04/15/24 04/29/24 History tablet apixaban 5 mg tablet (Eliquis) 5 mg PO BID #60 tabs 04/29/24 04/29/24 Rx metoprolol tartrate 25 mg tablet 25 mg PO BID #180 tabs 04/29/24 04/29/24 Rx Ejection fraction %: 60 Have you fallen in the past year?: No PFSH Medical History Prostate CA Erectile dysfunction Elevated PSA Atrial fibrillation CKD (chronic kidney disease) Obesity (BMI 30.0-34.9) Anxiety Hypothyroidism Hyperlipidemia BPH (benign prostatic hyperplasia) Hyperglycemia Hypertension Surgical History (Reviewed 04/29/24 @ 10:24 by Jarek Perez [employer]IVATE [employer]CH EXCHANGE INSTALLER, [employer]IVATE [employer]CH EXCHANGE INSTALLER-C) History of shoulder surgery Family History Other Hyperlipidemia Hypertension Thyroid disorder Social History household members: spouse housing: house Smoking Status: Former smoker alcohol intake: never substance use type: does not use ROS Const Const: Positive for fatigue (Improving daily since UTI admission); Negative for weakness Eyes Eyes: Negative for change in vision (more content not included)... Normal [facility] Bacteria Ur Culton 4 Bacteria identified Cx Nom (U) ORGANISM ID: 1 <10,000 CFU/ml Enterococcus faecalis Insignificant colony count. No further workup. Cephalosporins, clindamycin, and TMP-SMX are not effective for the treatment of enterococcal infections. Normal [facility] Comment on above: Performed By: #### 6 30-4 ####[facility] LABCL[facility] [id number] DMITRY WHELANDESK [id number] [address] [place] Basic metabolic 2000 panelon 04-26-2024 Anion gap [Moles/Vol] 10 mmol/L Normal 8-15 [facility] Comment on above: Order Comment: Speci men Type: BLOOD SPECIMEN Ordering Facility: [facility] Address: [address] [place] [address] Performed By: #### 2 4321-2 #### [facility] CLIA [id number] [address] [place] [address] [place] Calcium [Mass/Vol] 9.4 mg/dL Normal 8.5-10.2 [facility] Comment on above: Order Comment: Speci men Type: BLOOD SPECIMEN Ordering Facility: [facility] Address: [address] [place] [address] Performed By: #### 2 4321-2 #### [facility] CLIA [id number] [address] [place] [address] [place] Chloride [Moles/Vol] 101 mmol/L Normal 98-107 [facility] Comment on above: Order Comment: Speci men Type: BLOOD SPECIMEN Ordering Facility: [facility] Address: [address] [place] [address] Performed By: #### 2 4321-2 #### [facility] CLIA [id number] [address] [place] [address] [place] CO2 [Moles/Vol] 26 mmol/L Normal 22-30 [facility] Comment on above: Order Comment: Speci men Type: BLOOD SPECIMEN Ordering Facility: [facility] Address: [address] [place] [address] Performed By: #### 2 4321-2 #### [facility] [id number] [address] [place] [address] [place] Creatinine [Mass/Vol] 1.33 mg/dL High 0.73-1.22 [facility] Comment on above: Order Comment: Franny zavala Type: BLOOD SPECIMEN Ordering Facility: [facility] Address: [address] [place] [address] Performed By: #### 2 4321-2 #### [facility] [id number] [address] [place] [address] [place] Creatinine and Glomerular filtration rate.predicted panel (S/P/Bld) 54 mL/min/1.73m??? Low >=60 [facility] Comment on above: Order Comment: Franny zavala Type: BLOOD SPECIMEN Ordering Facility: [facility] Address: [address] [place] [address] Result Comment: Karin mated Glomerular Filtration Rate (eGFR) is calculated using the 2020 CKD-EPI creatinine equation. This equation utilizes serum creatinine, sex, and age as parameters. The creatinine assay has traceable calibration to isotope dilution-mass spectrometry. Refer to KDIGO guidelines for clinical interpretation. In patients with unstable renal function, e.g. those with acute kidney injury, the eGFR may not accurately reflect actual GFR. Performed By: #### 2 4321-2 #### [facility] [id number] [address] [place] [address] [place] Glucose [Mass/Vol] 104 mg/dL High 74-99 [facility] Comment on above: Order Comment: Franny zavala Type: BLOOD SPECIMEN Ordering Facility: [facility] Address: [address] [place] [address] Result Comment: The [place] [employer] Association (ADA) provides guidance for cutoff values for fasting glucose and random glucose. The ADA defines fasting as no caloric intake for at least 8 hours. Fasting plasma glucose results between 100 to 125 mg/dL indicate increased risk for diabetes (prediabetes). Fasting plasma glucose results greater than or equal to 126 mg/dL meet the criteria for diagnosis of diabetes. In the absence of unequivocal hyperglycemia, results should be confirmed by repeat testing. In a patient with classic symptoms of hyperglycemia or hyperglycemic crisis, random plasma glucose results greater than or equal to 200 mg/dL meet the criteria for diagnosis of diabetes. Reference: Standards of Medical Care in Diabetes 2016, [place] [employer] Association. Diabetes Care. 2016.39(Suppl 1). Performed By: #### 2 4321-2 #### [facility] CLIA [id number] [address] [place] [address] [place] Potassium [Moles/Vol] 3.9 mmol/L Normal 3.7-5.1 [facility] Comment on above: Order Comment: Franny zavala Type: BLOOD SPECIMEN Ordering Facility: [facility] Address: [address] [place] [address] Performed By: #### 2 4321-2 #### [facility] [id number] [address] [place] [address] [place] Sodium [Moles/Vol] 137 mmol/L Normal 136-144 [facility] Comment on above: Order Comment: Franny zavala Type: BLOOD SPECIMEN Ordering Facility: [facility] Address: [address] [place] [address] Performed By: #### 2 4321-2 #### [facility] [id number] [address] [place] [address] [place] Urea nitrogen [Mass/Vol] 23 mg/dL Normal 9-24 [facility] Comment on above: Order Comment: Franny zavala Type: BLOOD SPECIMEN Ordering Facility: [facility] Address: [address] [place] [address] Performed By: #### 2 4321-2 #### [facility] [id number] [address] [place] [address] [place] CBC panel Auto (Bld)on 04-26 Erythrocyte distribution width (RBC) [Ratio] 15.6 % High 11.5-15.0 [facility] Comment on above: Order Comment: Speci men Type: BLOOD SPECIMEN Ordering Facility: [facility] Address: [address] [place] [address] Performed By: #### 2 4321-2 #### [facility] CLIA [id number] [address] [place] [address] [place] Hematocrit (Bld) [Volume fraction] 30.6 % Low 39.0-51.0 [facility] Comment on above: Order Comment: Speci men Type: BLOOD SPECIMEN Ordering Facility: [facility] Address: [address] [place] [address] Performed By: #### 2 4321-2 #### [facility] CLIA [id number] [address] [place] [address] [place] Hemoglobin (Bld) [Mass/Vol] 10.3 g/dL Low 13.0-17.0 [facility] Comment on above: Order Comment: Speci men Type: BLOOD SPECIMEN Ordering Facility: [facility] Address: [address] [place] [address] Performed By: #### 2 4321-2 #### [facility] CLIA [id number] [address] [place] [address] [place] MCH (RBC) [Entitic mass] 32.8 pg Normal 26.0-34.0 [facility] Comment on above: Order Comment: Speci men Type: BLOOD SPECIMEN Ordering Facility: [facility] Address: [address] [place] [address] Performed By: #### 2 4321-2 #### [facility] CLIA [id number] [address] [place] [address] [place] MCHC (RBC) [Mass/Vol] 33.7 g/dL Normal 30.5-36.0 [facility] Comment on above: Order Comment: Speci men Type: BLOOD SPECIMEN Ordering Facility: [facility] Address: [address] [place] [address] Performed By: #### 2 4321-2 #### [facility] CLIA [id number] [address] [place] [address] [place] MCV (RBC) [Entitic vol] 97.5 fL Normal 80.0-100.0 [facility] [facility] Comment on above: Order Comment: Speci men Type: BLOOD SPECIMEN Ordering Facility: [facility] Address: [address] [place] [address] Performed By: #### 2 4321-2 #### [facility] CLIA [id number] [address] [place] [address] [place] Nucleated RBC (Bld) [#/Vol] 10*3/uL Normal <0.01 [facility] Comment on above: Order Comment: Speci men Type: BLOOD SPECIMEN Ordering Facility: [facility] Address: [address] [place] [address] Performed By: #### 2 4321-2 #### [facility] CLIA [id number] [address] [place] [address] [place] Platelet mean volume (Bld) [Entitic vol] 9.5 fL Normal 9.0-12.7 [facility] Comment on above: Order Comment: Speci men Type: BLOOD SPECIMEN Ordering Facility: [facility] Address: [address] [place] [address] Performed By: #### 2 4321-2 #### [facility] CLIA [id number] [address] [place] [address] [place] Platelets (Bld) [#/Vol] 253 10*3/uL Normal 150-400 [facility] Comment on above: Order Comment: Speci men Type: BLOOD SPECIMEN Ordering Facility: [facility] Address: [address] [place], [place] [address] Performed By: #### 2 4321-2 #### [facility] CLIA [id number] [address] [place] [address] [place] RBC (Bld) [#/Vol] 3.14 10*6/uL Low 4.20-6.00 [facility] Comment on above: Order Comment: Speci men Type: BLOOD SPECIMEN Ordering Facility: [facility] Address: [address] [place] [address] Performed By: #### 2 4321-2 #### [facility] CLIA [id number] [address] [place] [address] OF [facility] WBC (Bld) [#/Vol] 7.86 10*3/uL Normal 3.70-11.00 [facility] Comment on above: Order Comment: Speci men Type: BLOOD SPECIMEN Ordering Facility: [facility] Address: [address] [place] [address] Performed By: #### 2 4321-2 #### [facility] CLIA [id number] [address] [place] [address] OF [place] CNOVon 04-26-2024 CNOV Office Visit (INTMWS ) -- JINA,CLINT Salmeron ([id number]) 1940 M Date Time Provider Department 04/26/24 1:40 PM LEELA DRAKE INTMWS During your visit today, we recorded the following information about you: Temperature Pulse Respiration Blood pressure 97.9 degrees 59/minute 16/minute 126/74 Weight 86.5 kg Leela Drake, [employer] ATTENDANT 04/26/2024 4:15 PM Signed CC: Patient presents with: Hospital F/U: [facility] d/c UTI HPI Clint Salmeron Jian is a 83 year old male who presents today for above. He was admitted to [facility] 04/16 to 04/18 for complicated UTI. Treated initially with ceftriaxone, urine culture positive for E. Faecalis and he was switched to Cipro. Discharged home with five day course of Macrobid. No medication changes were made. Follow-up with urologist for stent removal still needs scheduled. Today patient reports he is feeling well. He has been a little weak and fatigued since he returned home but this is improving. He no longer has a borrego catheter. Reports some hesitancy and does not feel that he always completely empties his bladder. Denies decreased urine output, hematuria, dysuria, incontinence. He has been constipated but denies abdominal pain or distention. Review of Systems Constitutional: Positive for fatigue. Negative for chills, diaphoresis, fever and unexpected weight change. Respiratory: Negative for shortness of breath. Cardiovascular: Negative for chest pain, palpitations and leg swelling. Gastrointestinal: Negative for diarrhea, nausea and vomiting. Neurological: Negative for dizziness, syncope, weakness, light-headedness and headaches. 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 HTN (hypertension) 03/08/2014 PRIMARY FOLLOWS Hyperglycemia DIET CONTROLLED PRIMARY FOLLOWS Hyperlipidemia 03/08/2014 Hyperlipidemia, unspecified hyperlipidemia type PRIMARY FOLLOWS Hypotension, unspecified Hypothyroidism 07/21/2014 PRIMARY FOLLOWS Impaired fasting glucose 12/19/2016 DOES NOT REMEMBER Muscle spasm of back 05/23/2015 Obesity, Class I, BMI 30-34.9 01/29/2019 Obesity, Class II, BMI 35-39.9 06/02/2020 Paroxysmal atrial fibrillation (HCC) 06/23/2023 DUE TO SEE [facility] FOR AFIB, PRIMARY FOLLOWS CURRENTLY, DID SEE CHRIS ACOSTA APPOINTMENT BUT DID NOT CARE FOR MD SO WILL NOT GO BACK Positive colorectal cancer screening using Cologuard test 01/03/2023 Primary hypertension PRIMARY FOLLOWS Prostate cancer (HCC) 02/13/20[address] DR LARSEN [address] DR AGUILAR, AT [facility] IN [place] 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 PAST SURGICAL HISTORY Procedure Laterality Date COLONOSCOPY - DIAGNOSTIC 12/18/2023 CYSTOSCOPY, W/INSERTION URETHRAL STENT Bilateral 03/08/2024 bilateral hydroephrosis OPEN REPAIR OF ROTATOR CUFF ACUTE Right 2005 Rotator cuff repair, right PROSTATE BIOPSY W/TRANSRECTAL US 01/26/2024 TONSILLECTOMY PRIMARY/SECONDARY Tonsillectomy ALLERGIES Latex MEDICATIONS valACYclovir (VALTREX) 500 mg tablet Take 1 tablet by mouth once daily. (Patient taking differently: Take 500 mg by mouth once daily. HERPES, GENITAL) bicalutamide (CASODEX) 50 mg tablet Take 1 tablet by mouth once daily. Take for 10 days starting when you get lupron injection hydrOXYzine HCl (ATARAX) 25 mg tablet Take 1 tablet by mouth daily at bedtime. losartan (COZAAR) 100 mg tablet Take 1 tablet by mouth once daily. atorvastatin (LIPITOR) 40 mg tablet Take 1 tablet by mouth daily at bedtime. tamsulosin (FLOMAX) 0.4 mg Take 2 capsules by mouth daily at bedtime. levothyroxine (SYNTHROID) 112 mcg tablet Take 1 tablet by mouth once daily. Take on empty stomach. For thyroid (Patient taking differently: Take 112 mcg by mouth daily before breakfast. Take on empty stomach. For thyroid) apixaban (ELIQUIS) 5 mg tab(s) Take 1 tablet by mouth two times a day. (Patient taking differently: Take 5 mg by mouth two times a day. LAST DOSE TONIGHT 03/03/[address] LARSEN AND [facility], BUT HAS NOT SEEN THEM YET, DR CARRINGTON IS FOLLOWING AND AWARE THAT HE STOPPED) metoprolol tartrate, short acting, (LOPRESSOR) 50 mg tablet Take 1 tablet by mouth two times a day. amLODIPine (NORVASC) 5 mg tablet Take 1 tablet by mouth once daily. cyclobenzaprine (FLEXERIL) 10 mg tablet Take 1 tablet by mouth twice daily as needed (more content not included)... Normal [facility] Urinalysis complete panel (U )on 04-26-2024 Bacteria LM.HPF (Urine sed) [#/Area] Negative Normal Negative [facility] Comment on above: Order Comment: Speci men Type: URINE SPECIMEN Ordering Facility: [facility] Address: [address] [place] [address] Performed By: #### 2 4356-8 #### [facility] CLIA [id number] [address] [place] [address] [place] Bilirubin Ql (U) Negative Normal Negative [facility] Comment on above: Order Comment: Speci men Type: URINE SPECIMEN Ordering Facility: [facility] Address: [address] [place] [address] Performed By: #### 2 4356-8 #### [facility] CLIA [id number] [address] [place] [address] [place] Clarity (Unsp spec) Cloudy Abnormal Clear [facility] Comment on above: Order Comment: Speci men Type: URINE SPECIMEN Ordering Facility: [facility] Address: [address] [place] [address] Performed By: #### 2 4356-8 #### [facility] CLIA [id number] [address] [place] [address] [place] Color (U) Yellow Normal Yellow [facility] Comment on above: Order Comment: Speci men Type: URINE SPECIMEN Ordering Facility: [facility] Address: [address] [place] [address] Performed By: #### 2 4356-8 #### [facility] CLIA [id number] [address] [place] [address] [place] Epithelial cells LM.HPF (Urine sed) [#/Area] None Seen Normal [facility] Comment on above: Order Comment: Speci men Type: URINE SPECIMEN Ordering Facility: [facility] Address: [address] [place] [address] Performed By: #### 2 4356-8 #### [facility] CLIA [id number] [address] [place] [address] [place] Glucose Test strip (U) [Mass/Vol] Negative Normal Negative [facility] Comment on above: Order Comment: Speci men Type: URINE SPECIMEN Ordering Facility: [facility] Address: [address] [place] [address] Performed By: #### 2 4356-8 #### [facility] CLIA [id number] [address] [place] [address] [place] Hemoglobin Ql (U) 2+ Abnormal Negative [facility] Comment on above: Order Comment: Speci men Type: URINE SPECIMEN Ordering Facility: [facility] Address: [address] [place] [address] Performed By: #### 2 4356-8 #### [facility] CLIA [id number] [address] [place] [address] [place] Hyaline casts (Urine sed) [#/Area] 1-3 /LPF Abnormal 0 /LPF [facility] Comment on above: Order Comment: Speci men Type: URINE SPECIMEN Ordering Facility: [facility] Address: [address] [place] [address] Performed By: #### 2 4356-8 #### [facility] CLIA [id number] [address] [place] [address] [place] Ketones Ql (U) Negative Normal Negative [facility] Comment on above: Order Comment: Speci men Type: URINE SPECIMEN Ordering Facility: [facility] Address: [address] [place] [address] Performed By: #### 2 4356-8 #### [facility] CLIA [id number] [address] [place] [address] [place] Leukocyte esterase Test strip Ql (U) 3+ Abnormal Negative [facility] Comment on above: Order Comment: Speci men Type: URINE SPECIMEN Ordering Facility: [facility] Address: [address] [place] [address] Performed By: #### 2 4356-8 #### [facility] CLIA [id number] [address] [place] [address] [place] Nitrite Ql (U) Negative Normal Negative [facility] Comment on above: Order Comment: Speci men Type: URINE SPECIMEN Ordering Facility: [facility] Address: [address] [place] [address] Performed By: #### 2 4356-8 #### [facility] CLIA [id number] [address] [place] [address] [place] pH (U) 7.0 [pH] Normal <8.5 [facility] Comment on above: Order Comment: Speci men Type: URINE SPECIMEN Ordering Facility: [facility] Address: [address] [place] [address] Performed By: #### 2 4356-8 #### [facility] CLIA [id number] [address] [place] [address] [place] Protein (U) [Mass/Vol] 1+ Abnormal Negative [facility] Comment on above: Order Comment: Speci men Type: URINE SPECIMEN Ordering Facility: [facility] Address: [address] [place] [address] Performed By: #### 2 4356-8 #### [facility] CLIA [id number] [address] [place] [address] [place] RBC LM.HPF (Urine sed) [#/Area] /[HPF] Abnormal 0-2 /HPF [facility] Comment on above: Order Comment: Speci men Type: URINE SPECIMEN Ordering Facility: [facility] Address: [address] [place] [address] Performed By: #### 2 4356-8 #### [facility] CLIA [id number] [address] [place] [address] [place] Specific gravity (U) [Rel density] 1.010 Normal 1.005-1.030 [facility] Comment on above: Order Comment: Speci men Type: URINE SPECIMEN Ordering Facility: [facility] Address: [address] [place] [address] Performed By: #### 2 4356-8 #### [facility] CLIA [id number] [address] [place] [address] [place] Urobilinogen Ql (U) 0.2 EU/dL Normal 0.2-1.0 EU/dL [facility] Comment on above: Order Comment: Speci men Type: URINE SPECIMEN Ordering Facility[facility] Address: [address] [place] [address] Performed By: #### 2 4356-8 #### [facility] CLIA [id number] [address] [place] [address] [place] WBC LM.HPF (Urine sed) [#/Area] /[HPF] Abnormal 0-5 /HPF [facility] Comment on above: Order Comment: Speci men Type: URINE SPECIMEN Ordering Facility[facility] Address: [address] [place] [address] Performed By: #### 2 4356-8 #### [facility] CLIA [id number] [address] [place] [address] [place] Basic Metabolic Profile (BMP )on 04-25-2024 BUN Normal 7-18 [facility] Comment on above: Result Comment: Canc elled via OM: Order cancelled - Patient discharged Performed By: #### L 100.0100, L500.2500 #### [facility] [address] [place], [address] BUN/CRE Normal 10-20 [facility] Comment on above: Result Comment: Canc elled via OM: Order cancelled - Patient discharged Performed By: #### L 100.0100, L500.2500 #### [facility] [address] [place], [address] CA,Total Normal 8.5-10.1 [facility] Comment on above: Result Comment: Canc elled via OM: Order cancelled - Patient discharged Performed By: #### L 100.0100, L500.2500 #### [facility] [address] [place] [place], [address] CL Normal 98-107 [facility] Comment on above: Result Comment: Canc elled via OM: Order cancelled - Patient discharged Performed By: #### L 100.0100, L500.2500 #### [facility] [address] [place], [address] CO2 Normal 21.0-32.0 [facility] Comment on above: Result Comment: Canc elled via OM: Order cancelled - Patient discharged Performed By: #### L 100.0100, L500.2500 #### [facility] [address] [place], [address] CREAT,SERUM Normal 0.70-1.30 [facility] Comment on above: Result Comment: Canc elled via OM: Order cancelled - Patient discharged Performed By: #### L 100.0100, L500.2500 #### [facility] [address] [place], [address] EST GFR Normal >60 [facility] Comment on above: Result Comment: Canc elled via OM: Order cancelled - Patient discharged Performed By: #### L 100.0100, L500.2500 #### [facility] [address] [place], [address] EST GFR - AA Normal >60 [facility] Comment on above: Result Comment: Canc elled via OM: Order cancelled - Patient discharged Performed By: #### L 100.0100, L500.2500 #### [facility] [address] [place], [address] GAP Normal 5-15 [facility] Comment on above: Result Comment: Canc elled via OM: Order cancelled - Patient discharged Performed By: #### L 100.0100, L500.2500 #### [facility] [address] [place] [place], [address] GLU Normal 74-106 [facility] Comment on above: Result Comment: Canc elled via OM: Order cancelled - Patient discharged Performed By: #### L 100.0100, L500.2500 #### [facility] [address] [place], [address] Potassium Normal 3.5-5.1 [facility] Comment on above: Result Comment: Canc elled via OM: Order cancelled - Patient discharged Performed By: #### L 100.0100, L500.2500 #### [facility] [address] [place], [address] Basic Metabolic Profile (BMP) Normal 136-145 [facility] Comment on above: Result Comment: Canc elled via OM: Order cancelled - Patient discharged Performed By: #### L 100.0100, L500.2500 #### [facility] [address] [place], [address] CBC W/Diff, Automatedon 12-2 Absolute Neut Normal 2.0-7.7 [facility] Comment on above: Result Comment: Canc elled via OM: Order cancelled - Patient discharged Performed By: #### L 100.0100, L500.2500 #### [facility] [address] [place], [address] HCT Normal 40-54 [facility] Comment on above: Result Comment: Canc elled via OM: Order cancelled - Patient discharged Performed By: #### L 100.0100, L500.2500 #### [facility] [address] [place], [address] HGB Normal 13.0-16.5 [facility] Comment on above: Result Comment: Canc elled via OM: Order cancelled - Patient discharged Performed By: #### L 100.0100, L500.2500 #### [facility] [address] [place], [address] MCH Normal 27.0-32.0 [facility] Comment on above: Result Comment: Canc elled via OM: Order cancelled - Patient discharged Performed By: #### L 100.0100, L500.2500 #### [facility] [address] [place] [place], [address] MCHC Normal 32-36 [facility] Comment on above: Result Comment: Canc elled via OM: Order cancelled - Patient discharged Performed By: #### L 100.0100, L500.2500 #### [facility] [address] [place], [address] MCV Normal 80-94 [facility] Comment on above: Result Comment: Canc elled via OM: Order cancelled - Patient discharged Performed By: #### L 100.0100, L500.2500 #### [facility] [address] [place], [address] NEUT% Normal 47-70 [facility] Comment on above: Result Comment: Canc elled via OM: Order cancelled - Patient discharged Performed By: #### L 100.0100, L500.2500 #### [facility] [address] [place], [address] PLT Normal 150-450 [facility] Comment on above: Result Comment: Canc elled via OM: Order cancelled - Patient discharged Performed By: #### L 100.0100, L500.2500 #### [facility] [address] [place], [address] RBC Normal 4.6-6.2 [facility] Comment on above: Result Comment: Canc elled via OM: Order cancelled - Patient discharged Performed By: #### L 100.0100, L500.2500 #### [facility] [address] [place], [address] RDW CV Normal 11.6-14.6 [facility] Comment on above: Result Comment: Canc elled via OM: Order cancelled - Patient discharged Performed By: #### L 100.0100, L500.2500 #### [facility] [address] [place], [address] RDW SD Normal 35.1-43.9 [facility] Comment on above: Result Comment: Canc elled via OM: Order cancelled - Patient discharged Performed By: #### L 100.0100, L500.2500 #### [facility] [address] [place], [address] WBC Normal 4.4-11.0 [facility] Comment on above: Result Comment: Canc elled via OM: Order cancelled - Patient discharged Performed By: #### L 100.0100, L500.2500 #### [facility] [address] [place], [address] Basic Metabolic Profile (BMP )on 04-24-2024 BUN Normal 7-18 [facility] Comment on above: Result Comment: Canc elled via OM: Order cancelled - Patient discharged Performed By: #### L 500.2500, L100.0100 #### [facility] [address] [place], [address] BUN/CRE Normal 10-20 [facility] Comment on above: Result Comment: Canc elled via OM: Order cancelled - Patient discharged Performed By: #### L 500.2500, L100.0100 #### [facility] [address] [place], [address] CA,Total Normal 8.5-10.1 [facility] Comment on above: Result Comment: Canc elled via OM: Order cancelled - Patient discharged Performed By: #### L 500.2500, L100.0100 #### [facility] [address] [place], [address] CL Normal 98-107 [facility] Comment on above: Result Comment: Canc elled via OM: Order cancelled - Patient discharged Performed By: #### L 500.2500, L100.0100 #### [facility] [address] [place], [address] CO2 Normal 21.0-32.0 [facility] Comment on above: Result Comment: Canc elled via OM: Order cancelled - Patient discharged Performed By: #### L 500.2500, L100.0100 #### [facility] [address] [place], [address] CREAT,SERUM Normal 0.70-1.30 [facility] Comment on above: Result Comment: Canc elled via OM: Order cancelled - Patient discharged Performed By: #### L 500.2500, L100.0100 #### [facility] [address] [place], [address] EST GFR Normal >60 [facility] Comment on above: Result Comment: Canc elled via OM: Order cancelled - Patient discharged Performed By: #### L 500.2500, L100.0100 #### [facility] [address] [place], [address] EST GFR - AA Normal >60 [facility] Comment on above: Result Comment: Canc elled via OM: Order cancelled - Patient discharged Performed By: #### L 500.2500, L100.0100 #### [facility] [address] [place], [address] GAP Normal 5-15 [facility] Comment on above: Result Comment: Canc elled via OM: Order cancelled - Patient discharged Performed By: #### L 500.2500, L100.0100 #### [facility] [address] [place], [address] GLU Normal 74-106 [facility] Comment on above: Result Comment: Canc elled via OM: Order cancelled - Patient discharged Performed By: #### L 500.2500, L100.0100 #### [facility] [address] [place], [address] Potassium Normal 3.5-5.1 [facility] Comment on above: Result Comment: Canc elled via OM: Order cancelled - Patient discharged Performed By: #### L 500.2500, L100.0100 #### [facility] [address] [place], [address] Basic Metabolic Profile (BMP) Normal 136-145 [facility] Comment on above: Result Comment: Canc elled via OM: Order cancelled - Patient discharged Performed By: #### L 500.2500, L100.0100 #### [facility] [address] [place], [address] CBC W/Diff, Automatedon 12-2 Absolute Neut Normal 2.0-7.7 [facility] Comment on above: Result Comment: Canc elled via OM: Order cancelled - Patient discharged Performed By: #### L 500.2500, L100.0100 #### [facility] [address] [place], [address] HCT Normal 40-54 [facility] Comment on above: Result Comment: Canc elled via OM: Order cancelled - Patient discharged Performed By: #### L 500.2500, L100.0100 #### [facility] [address] [place], [address] HGB Normal 13.0-16.5 [facility] Comment on above: Result Comment: Canc elled via OM: Order cancelled - Patient discharged Performed By: #### L 500.2500, L100.0100 #### [facility] [address] [place], [address] MCH Normal 27.0-32.0 [facility] Comment on above: Result Comment: Canc elled via OM: Order cancelled - Patient discharged Performed By: #### L 500.2500, L100.0100 #### [facility] [address] [place], [address] MCHC Normal 32-36 [facility] Comment on above: Result Comment: Canc elled via OM: Order cancelled - Patient discharged Performed By: #### L 500.2500, L100.0100 #### [facility] [address] [place], [address] MCV Normal 80-94 [facility] Comment on above: Result Comment: Canc elled via OM: Order cancelled - Patient discharged Performed By: #### L 500.2500, L100.0100 #### [facility] [address] [place], [address] NEUT% Normal 47-70 [facility] Comment on above: Result Comment: Canc elled via OM: Order cancelled - Patient discharged Performed By: #### L 500.2500, L100.0100 #### [facility] [address] [place], [address] PLT Normal 150-450 [facility] Comment on above: Result Comment: Canc elled via OM: Order cancelled - Patient discharged Performed By: #### L 500.2500, L100.0100 #### [facility] [address] [place], [address] RBC Normal 4.6-6.2 [facility] Comment on above: Result Comment: Canc elled via OM: Order cancelled - Patient discharged Performed By: #### L 500.2500, L100.0100 #### [facility] [address] [place], [address] RDW CV Normal 11.6-14.6 [facility] Comment on above: Result Comment: Canc elled via OM: Order cancelled - Patient discharged Performed By: #### L 500.2500, L100.0100 #### [facility] [address] [place], [address] RDW SD Normal 35.1-43.9 [facility] Comment on above: Result Comment: Canc elled via OM: Order cancelled - Patient discharged Performed By: #### L 500.2500, L100.0100 #### [facility] [address] [place], [address] WBC Normal 4.4-11.0 [facility] Comment on above: Result Comment: Canc elled via OM: Order cancelled - Patient discharged Performed By: #### L 500.2500, L100.0100 #### [facility] [address] [place], [address] Basic Metabolic Profile (BMP )on 04-23-2024 BUN Normal -18 [facility] Comment on above: Result Comment: Canc elled via OM: Order cancelled - Patient discharged Performed By: #### L 100.0100, L500.2500 #### [facility] [address] [place], [address] BUN/CRE Normal -20 [facility] Comment on above: Result Comment: Canc elled via OM: Order cancelled - Patient discharged Performed By: #### L 100.0100, L500.2500 #### [facility] [address] [place], [address] CA,Total Normal 8.5-10.1 [facility] Comment on above: Result Comment: Canc elled via OM: Order cancelled - Patient discharged Performed By: #### L 100.0100, L500.2500 #### [facility] [address] [place], [address] CL Normal 98-107 [facility] Comment on above: Result Comment: Canc elled via OM: Order cancelled - Patient discharged Performed By: #### L 100.0100, L500.2500 #### [facility] [address] [place], [address] CO2 Normal 21.0-32.0 [facility] Comment on above: Result Comment: Canc elled via OM: Order cancelled - Patient discharged Performed By: #### L 100.0100, L500.2500 #### [facility] [address] [place], [address] CREAT,SERUM Normal 0.70-1.30 [facility] Comment on above: Result Comment: Canc elled via OM: Order cancelled - Patient discharged Performed By: #### L 100.0100, L500.2500 #### [facility] [address] [place], [address] EST GFR Normal >60 [facility] Comment on above: Result Comment: Canc elled via OM: Order cancelled - Patient discharged Performed By: #### L 100.0100, L500.2500 #### [facility] [address] [place], [address] EST GFR - AA Normal >60 [facility] Comment on above: Result Comment: Canc elled via OM: Order cancelled - Patient discharged Performed By: #### L 100.0100, L500.2500 #### [facility] [address] [place], [address] GAP Normal 5-15 [facility] Comment on above: Result Comment: Canc elled via OM: Order cancelled - Patient discharged Performed By: #### L 100.0100, L500.2500 #### [facility] [address] [place], [address] GLU Normal 74-106 [facility] Comment on above: Result Comment: Canc elled via OM: Order cancelled - Patient discharged Performed By: #### L 100.0100, L500.2500 #### [facility] [address] [place], [address] Potassium Normal 3.5-5.1 [facility] Comment on above: Result Comment: Canc elled via OM: Order cancelled - Patient discharged Performed By: #### L 100.0100, L500.2500 #### [facility] [address] [place], [address] Basic Metabolic Profile (BMP) Normal 136-145 [facility] Comment on above: Result Comment: Canc elled via OM: Order cancelled - Patient discharged Performed By: #### L 100.0100, L500.2500 #### [facility] [address] [place] [place], [address] CBC W/Diff, Automatedon 12-2 0-2023 Absolute Neut Normal 2.0-7.7 [facility] Comment on above: Result Comment: Canc elled via OM: Order cancelled - Patient discharged Performed By: #### L 100.0100, L500.2500 #### [facility] [address] [place], [address] HCT Normal 40-54 [facility] Comment on above: Result Comment: Canc elled via OM: Order cancelled - Patient discharged Performed By: #### L 100.0100, L500.2500 #### [facility] [address] [place], [address] HGB Normal 13.0-16.5 [facility] Comment on above: Result Comment: Canc elled via OM: Order cancelled - Patient discharged Performed By: #### L 100.0100, L500.2500 #### [facility] [address] [place], [address] MCH Normal 27.0-32.0 [facility] Comment on above: Result Comment: Canc elled via OM: Order cancelled - Patient discharged Performed By: #### L 100.0100, L500.2500 #### [facility] [address] [place] [place], [address] MCHC Normal 32-36 [facility] Comment on above: Result Comment: Canc elled via OM: Order cancelled - Patient discharged Performed By: #### L 100.0100, L500.2500 #### [facility] [address] [place], [address] MCV Normal 80-94 [facility] Comment on above: Result Comment: Canc elled via OM: Order cancelled - Patient discharged Performed By: #### L 100.0100, L500.2500 #### [facility] [address] [place], [address] NEUT% Normal 47-70 [facility] Comment on above: Result Comment: Canc elled via OM: Order cancelled - Patient discharged Performed By: #### L 100.0100, L500.2500 #### [facility] [address] [place], [address] PLT Normal 150-450 [facility] Comment on above: Result Comment: Canc elled via OM: Order cancelled - Patient discharged Performed By: #### L 100.0100, L500.2500 #### [facility] [address] [place], [address] RBC Normal 4.6-6.2 [facility] Comment on above: Result Comment: Canc elled via OM: Order cancelled - Patient discharged Performed By: #### L 100.0100, L500.2500 #### [facility] [address] [place], [address] RDW CV Normal 11.6-14.6 [facility] Comment on above: Result Comment: Canc elled via OM: Order cancelled - Patient discharged Performed By: #### L 100.0100, L500.2500 #### [facility] [address] [place], [address] RDW SD Normal 35.1-43.9 [facility] Comment on above: Result Comment: Canc elled via OM: Order cancelled - Patient discharged Performed By: #### L 100.0100, L500.2500 #### [facility] [address] [place], [address] WBC Normal 4.4-11.0 [facility] Comment on above: Result Comment: Canc elled via OM: Order cancelled - Patient discharged Performed By: #### L 100.0100, L500.2500 #### [facility] [address] [place], [address] Basic Metabolic Profile (BMP )on 04-22-2024 BUN Normal 7-18 [facility] Comment on above: Result Comment: Canc elled via OM: Order cancelled - Patient discharged Performed By: #### L 100.0100, L500.2500 #### [facility] [address] [place], [address] BUN/CRE Normal 10-20 [facility] Comment on above: Result Comment: Canc elled via OM: Order cancelled - Patient discharged Performed By: #### L 100.0100, L500.2500 #### [facility] [address] [place], [address] CA,Total Normal 8.5-10.1 [facility] Comment on above: Result Comment: Canc elled via OM: Order cancelled - Patient discharged Performed By: #### L 100.0100, L500.2500 #### [facility] [address] [place], [address] CL Normal 98-107 [facility] Comment on above: Result Comment: Canc elled via OM: Order cancelled - Patient discharged Performed By: #### L 100.0100, L500.2500 #### [facility] [address] [place], [address] CO2 Normal 21.0-32.0 [facility] Comment on above: Result Comment: Canc elled via OM: Order cancelled - Patient discharged Performed By: #### L 100.0100, L500.2500 #### [facility] [address] [place], [address] CREAT,SERUM Normal 0.70-1.30 [facility] Comment on above: Result Comment: Canc elled via OM: Order cancelled - Patient discharged Performed By: #### L 100.0100, L500.2500 #### [facility] [address] [place], [address] EST GFR Normal >60 [facility] Comment on above: Result Comment: Canc elled via OM: Order cancelled - Patient discharged Performed By: #### L 100.0100, L500.2500 #### [facility] [address] [place], [address] EST GFR - AA Normal >60 [facility] Comment on above: Result Comment: Canc elled via OM: Order cancelled - Patient discharged Performed By: #### L 100.0100, L500.2500 #### [facility] [address] [place], [address] GAP Normal 5-15 [facility] Comment on above: Result Comment: Canc elled via OM: Order cancelled - Patient discharged Performed By: #### L 100.0100, L500.2500 #### [facility] [address] [place], [address] GLU Normal 74-106 [facility] Comment on above: Result Comment: Canc elled via OM: Order cancelled - Patient discharged Performed By: #### L 100.0100, L500.2500 #### [facility] [address] [place], [address] Potassium Normal 3.5-5.1 [facility] Comment on above: Result Comment: Canc elled via OM: Order cancelled - Patient discharged Performed By: #### L 100.0100, L500.2500 #### [facility] [address] [place], [address] Basic Metabolic Profile (BMP) Normal 136-145 [facility] Comment on above: Result Comment: Canc elled via OM: Order cancelled - Patient discharged Performed By: #### L 100.0100, L500.2500 #### [facility] [address] [place], [address] CBC W/Diff, Automatedon 12-1 Absolute Neut Normal 2.0-7.7 [facility] Comment on above: Result Comment: Canc elled via OM: Order cancelled - Patient discharged Performed By: #### L 100.0100, L500.2500 #### [facility] [address] [place], [address] HCT Normal 40-54 [facility] Comment on above: Result Comment: Canc elled via OM: Order cancelled - Patient discharged Performed By: #### L 100.0100, L500.2500 #### [facility] [address] [place], [address] HGB Normal 13.0-16.5 [facility] Comment on above: Result Comment: Canc elled via OM: Order cancelled - Patient discharged Performed By: #### L 100.0100, L500.2500 #### [facility] [address] [place], [address] MCH Normal 27.0-32.0 [facility] Comment on above: Result Comment: Canc elled via OM: Order cancelled - Patient discharged Performed By: #### L 100.0100, L500.2500 #### [facility] [address] [place], [address] MCHC Normal 32-36 [facility] Comment on above: Result Comment: Canc elled via OM: Order cancelled - Patient discharged Performed By: #### L 100.0100, L500.2500 #### [facility] [address] [place], [address] MCV Normal 80-94 [facility] Comment on above: Result Comment: Canc elled via OM: Order cancelled - Patient discharged Performed By: #### L 100.0100, L500.2500 #### [facility] [address] [place], [address] NEUT% Normal 47-70 [facility] Comment on above: Result Comment: Canc elled via OM: Order cancelled - Patient discharged Performed By: #### L 100.0100, L500.2500 #### [facility] [address] [place], [address] PLT Normal 150-450 [facility] Comment on above: Result Comment: Canc elled via OM: Order cancelled - Patient discharged Performed By: #### L 100.0100, L500.2500 #### [facility] [address] [place], [address] RBC Normal 4.6-6.2 [facility] Comment on above: Result Comment: Canc elled via OM: Order cancelled - Patient discharged Performed By: #### L 100.0100, L500.2500 #### [facility] [address] [place], [address] RDW CV Normal 11.6-14.6 [facility] Comment on above: Result Comment: Canc elled via OM: Order cancelled - Patient discharged Performed By: #### L 100.0100, L500.2500 #### [facility] [address] [place], [address] RDW SD Normal 35.1-43.9 [facility] Comment on above: Result Comment: Canc elled via OM: Order cancelled - Patient discharged Performed By: #### L 100.0100, L500.2500 #### [facility] [address] [place], [address] WBC Normal 4.4-11.0 [facility] Comment on above: Result Comment: Canc elled via OM: Order cancelled - Patient discharged Performed By: #### L 100.0100, L500.2500 #### [facility] [place], [address] [facility] 04-22-2024 CNPN Telephone (INTMWS) -- CLINT VILLAR ([id number]) 1940 M Date Time Provider Department 04/22/24 CODY CARRINGTON INTMWS During your visit today, we recorded the following information about you: Danielle Aviles LPN 04/22/2024 12:01 PM Signed called to let you know pt has a follow apt booked for tomorrow 04-23-24. Pt was to the [facility] ER 04-15-24 and then admitted and released 04-18-24. Pt doing okay weak from urinating a lot and not sleeping because of this. wants to make sure pt gets a urinalysis done and possible other blood work. Please review records from [facility]. Pt has been thru a lot with the prostate cancer and treatment, Pt's apt is 20 minutes for 04-23-24 and it is for a 6 month follow up. Please advise if there is any changes. RUBI Kennedy Helen E, LPN 04/22/2024 1:21 PM Signed [facility] ER report in Epic, printed for Dr. Carrington to review. Cody Garcia LPN, MD 04/23/2024 8:28 AM Signed He can do labs today before appointment. Shanthi Daly, RN 04/23/2024 8:43 AM Signed Patient's calls and states that patient is too weak to come into appointment today. states that patient has been eating very little and is dizzy. Patient is walking to the restroom, but patient does not feel like he can come into office today. thinks that patient's weakness is due to the antibiotics that he is on. Advised that if patient is too weak to come into office then he needs to be evaluated in the ER. does not think he is that weak that he needs evaluated in ER. thinks that once patient is off of antibiotics he will feel better. Patient has 2 days left of antibiotics. rescheduled appointment to 04/26 with Leela. Advised again that if patient has increased weakness then he needs to go to ER. voiced understanding. Shanthi Daly RN Allergies As of Date: 04/22/2024 Noted Allergy Reaction LATEX 03/15/2024 2 - Rash Comments: Rash to skin Date Reviewed: 04/14/2024 Reviewed by: Radha Larsen MD - Fully Assessed Reason for Visit: future apt/patient update [Other] Primary Visit Diagnosis:Anemia, unspecified type [D64.9] Other Visit Diagnosis:Urinary tract infection without hematuria, site unspecified [N39.0] Order(s):COMPLETE BLOOD COUNT [SQCBC] Order #: [id number] FUTURE BASIC METABOLIC PANEL [SQBMP] Order #: [id number] FUTURE URINALYSIS, WITH MICROSCOPIC [SQUAWMIC] Order #: [id number] FUTURE URINE CULTURE [SQURCUL] Order #: [id number] FUTURE Prescriptions as of 04/23/2024 - iv contrast (will be provided with radiology test) CT Urogram WO/W Inject, intravenously, once for 1 dose.No IV access, insert saline lock prior to the beginning of sedation, infusion, injection of imaging exam. Discontinue saline lock post exam. If Pt. has a central line or IVAD, may access for administration according to line specific nursing protocol. Once exam is complete flush line and de-access according to line specific nursing protocol in the CT contrast administration guidelines link. - ondansetron orally disintegrating (ZOFRAN ODT) 8 mg disintegrating tablet Take 1 tablet by mouth every 8 hours as needed for nausea/vomiting. - valACYclovir (VALTREX) 500 mg tablet Take 1 tablet by mouth once daily. - bicalutamide (CASODEX) 50 mg tablet Take 1 tablet by mouth once daily. Take for 10 days starting when you get lupron injection - hydrOXYzine HCl (ATARAX) 25 mg tablet Take 1 tablet by mouth daily at bedtime. - losartan (COZAAR) 100 mg tablet Take 1 tablet by mouth once daily. - atorvastatin (LIPITOR) 40 mg tablet Take 1 tablet by mouth daily at bedtime. - tamsulosin (FLOMAX) 0.4 mg Take 2 capsules by mouth daily at bedtime. - levothyroxine (SYNTHROID) 112 mcg tablet Take 1 tablet by mouth once daily. Take on empty stomach. For thyroid - apixaban (ELIQUIS) 5 mg tab(s) Take 1 tablet by mouth two times a day. - metoprolol tartrate, short acting, (LOPRESSOR) 50 mg tablet Take 1 tablet by mouth two times a day. - amLODIPine (NORVASC) 5 mg tablet Take 1 tablet by mouth once daily. - cyclobenzaprine (FLEXERIL) 10 mg tablet Take 1 tablet by mouth twice daily as needed for muscle spasm. 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 Normal [facility] Basic Metabolic Profile (BMP )on 04-21-2024 BUN Normal -18 [facility] Comment on above: Result Comment: Canc elled via OM: Order cancelled - Patient discharged Performed By: #### L 500.2500, L100.0100 #### [facility] [address] [place], [address] BUN/CRE Normal 10-20 [facility] Comment on above: Result Comment: Canc elled via OM: Order cancelled - Patient discharged Performed By: #### L 500.2500, L100.0100 #### [facility] [address] [place], [address] CA,Total Normal 8.5-10.1 [facility] Comment on above: Result Comment: Canc elled via OM: Order cancelled - Patient discharged Performed By: #### L 500.2500, L100.0100 #### [facility] [address] [place], [address] CL Normal 98-107 [facility] Comment on above: Result Comment: Canc elled via OM: Order cancelled - Patient discharged Performed By: #### L 500.2500, L100.0100 #### [facility] [address] [place], [address] CO2 Normal 21.0-32.0 [facility] Comment on above: Result Comment: Canc elled via OM: Order cancelled - Patient discharged Performed By: #### L 500.2500, L100.0100 #### [facility] [address] [place], [address] CREAT,SERUM Normal 0.70-1.30 [facility] Comment on above: Result Comment: Canc elled via OM: Order cancelled - Patient discharged Performed By: #### L 500.2500, L100.0100 #### [facility] [address] [place], [address] EST GFR Normal >60 [facility] Comment on above: Result Comment: Canc elled via OM: Order cancelled - Patient discharged Performed By: #### L 500.2500, L100.0100 #### [facility] [address] [place], [address] EST GFR - AA Normal >60 [facility] Comment on above: Result Comment: Canc elled via OM: Order cancelled - Patient discharged Performed By: #### L 500.2500, L100.0100 #### [facility] [address] [place], [address] GAP Normal 5-15 [facility] Comment on above: Result Comment: Canc elled via OM: Order cancelled - Patient discharged Performed By: #### L 500.2500, L100.0100 #### [facility] [address] [place], [address] GLU Normal 74-106 [facility] Comment on above: Result Comment: Canc elled via OM: Order cancelled - Patient discharged Performed By: #### L 500.2500, L100.0100 #### [facility] [address] [place], [address] Potassium Normal 3.5-5.1 [facility] Comment on above: Result Comment: Canc elled via OM: Order cancelled - Patient discharged Performed By: #### L 500.2500, L100.0100 #### [facility] [address] [place], [address] Basic Metabolic Profile (BMP) Normal 136-145 [facility] Comment on above: Result Comment: Canc elled via OM: Order cancelled - Patient discharged Performed By: #### L 500.2500, L100.0100 #### [facility] [address] [place], [address] CBC W/Diff, Automatedon 12- Absolute Neut Normal 2.0-7.7 [facility] Comment on above: Result Comment: Canc elled via OM: Order cancelled - Patient discharged Performed By: #### L 500.2500, L100.0100 #### [facility] [address] [place], [address] HCT Normal 40-54 [facility] Comment on above: Result Comment: Canc elled via OM: Order cancelled - Patient discharged Performed By: #### L 500.2500, L100.0100 #### [facility] [address] [place], [address] HGB Normal 13.0-16.5 [facility] Comment on above: Result Comment: Canc elled via OM: Order cancelled - Patient discharged Performed By: #### L 500.2500, L100.0100 #### [facility] [address] [place], [address] MCH Normal 27.0-32.0 [facility] Comment on above: Result Comment: Canc elled via OM: Order cancelled - Patient discharged Performed By: #### L 500.2500, L100.0100 #### [facility] [address] [place], [address] MCHC Normal 32-36 [facility] Comment on above: Result Comment: Canc elled via OM: Order cancelled - Patient discharged Performed By: #### L 500.2500, L100.0100 #### [facility] [address] [place], [address] MCV Normal 80-94 [facility] Comment on above: Result Comment: Canc elled via OM: Order cancelled - Patient discharged Performed By: #### L 500.2500, L100.0100 #### [facility] [address] [place], [address] NEUT% Normal 47-70 [facility] Comment on above: Result Comment: Canc elled via OM: Order cancelled - Patient discharged Performed By: #### L 500.2500, L100.0100 #### [facility] [address] [place], [address] PLT Normal 150-450 [facility] Comment on above: Result Comment: Canc elled via OM: Order cancelled - Patient discharged Performed By: #### L 500.2500, L100.0100 #### [facility] [address] [place], [address] RBC Normal 4.6-6.2 [facility] Comment on above: Result Comment: Canc elled via OM: Order cancelled - Patient discharged Performed By: #### L 500.2500, L100.0100 #### [facility] [address] [place], [address] RDW CV Normal 11.6-14.6 [facility] Comment on above: Result Comment: Canc elled via OM: Order cancelled - Patient discharged Performed By: #### L 500.2500, L100.0100 #### [facility] [address] [place], [address] RDW SD Normal 35.1-43.9 [facility] Comment on above: Result Comment: Canc elled via OM: Order cancelled - Patient discharged Performed By: #### L 500.2500, L100.0100 #### [facility] [address] [place], [address] WBC Normal 4.4-11.0 [facility] Comment on above: Result Comment: Canc elled via OM: Order cancelled - Patient discharged Performed By: #### L 500.2500, L100.0100 #### [facility] [address] [place], [address] Culture, Blood (WB)on 2023 CUB Blood cultures x2, f rom two different sites No growth in 5 days. Normal [facility] Comment on above: Performed By: #### L 100.0100, L500.2500 #### [facility] [address] [place], [address] Basic Metabolic Profile (BMP )on 04-20-2024 BUN Normal 7-18 [facility] Comment on above: Result Comment: Canc elled via OM: Order cancelled - Patient discharged Performed By: #### L 100.0100, L500.2500 #### [facility] [address] [place], [address] BUN/CRE Normal 10-20 [facility] Comment on above: Result Comment: Canc elled via OM: Order cancelled - Patient discharged Performed By: #### L 100.0100, L500.2500 #### [facility] [address] [place], [address] CA,Total Normal 8.5-10.1 [facility] Comment on above: Result Comment: Canc elled via OM: Order cancelled - Patient discharged Performed By: #### L 100.0100, L500.2500 #### [facility] [address] [place], [address] CL Normal 98-107 [facility] Comment on above: Result Comment: Canc elled via OM: Order cancelled - Patient discharged Performed By: #### L 100.0100, L500.2500 #### [facility] [address] [place], [address] CO2 Normal 21.0-32.0 [facility] Comment on above: Result Comment: Canc elled via OM: Order cancelled - Patient discharged Performed By: #### L 100.0100, L500.2500 #### [facility] [address] [place], [address] CREAT,SERUM Normal 0.70-1.30 [facility] Comment on above: Result Comment: Canc elled via OM: Order cancelled - Patient discharged Performed By: #### L 100.0100, L500.2500 #### [facility] [address] [place], [address] EST GFR Normal >60 [facility] Comment on above: Result Comment: Canc elled via OM: Order cancelled - Patient discharged Performed By: #### L 100.0100, L500.2500 #### [facility] [address] [place], [address] EST GFR - AA Normal >60 [facility] Comment on above: Result Comment: Canc elled via OM: Order cancelled - Patient discharged Performed By: #### L 100.0100, L500.2500 #### [facility] [address] [place], [address] GAP Normal 5-15 [facility] Comment on above: Result Comment: Canc elled via OM: Order cancelled - Patient discharged Performed By: #### L 100.0100, L500.2500 #### [facility] [address] [place], [address] GLU Normal 74-106 [facility] Comment on above: Result Comment: Canc elled via OM: Order cancelled - Patient discharged Performed By: #### L 100.0100, L500.2500 #### [facility] [address] [place], [address] Potassium Normal 3.5-5.1 [facility] Comment on above: Result Comment: Canc elled via OM: Order cancelled - Patient discharged Performed By: #### L 100.0100, L500.2500 #### [facility] [address] [place], [address] Basic Metabolic Profile (BMP) Normal 136-145 [facility] Comment on above: Result Comment: Canc elled via OM: Order cancelled - Patient discharged Performed By: #### L 100.0100, L500.2500 #### [facility] [address] [place], [address] CBC W/Diff, Automatedon 12-1 Absolute Neut Normal 2.0-7.7 [facility] Comment on above: Result Comment: Canc elled via OM: Order cancelled - Patient discharged Performed By: #### L 100.0100, L500.2500 #### [facility] [address] [place], [address] HCT Normal 40-54 [facility] Comment on above: Result Comment: Canc elled via OM: Order cancelled - Patient discharged Performed By: #### L 100.0100, L500.2500 #### [facility] [address] [place], [address] HGB Normal 13.0-16.5 [facility] Comment on above: Result Comment: Canc elled via OM: Order cancelled - Patient discharged Performed By: #### L 100.0100, L500.2500 #### [facility] [address] [place], [address] MCH Normal 27.0-32.0 [facility] Comment on above: Result Comment: Canc elled via OM: Order cancelled - Patient discharged Performed By: #### L 100.0100, L500.2500 #### [facility] [address] [place], [address] MCHC Normal 32-36 [facility] Comment on above: Result Comment: Canc elled via OM: Order cancelled - Patient discharged Performed By: #### L 100.0100, L500.2500 #### [facility] [address] [place], [address] MCV Normal 80-94 [facility] Comment on above: Result Comment: Canc elled via OM: Order cancelled - Patient discharged Performed By: #### L 100.0100, L500.2500 #### [facility] [address] [place], [address] NEUT% Normal 47-70 [facility] Comment on above: Result Comment: Canc elled via OM: Order cancelled - Patient discharged Performed By: #### L 100.0100, L500.2500 #### [facility] [address] [place] [place], [address] PLT Normal 150-450 [facility] Comment on above: Result Comment: Canc elled via OM: Order cancelled - Patient discharged Performed By: #### L 100.0100, L500.2500 #### [facility] [address] [place], [address] RBC Normal 4.6-6.2 [facility] Comment on above: Result Comment: Canc elled via OM: Order cancelled - Patient discharged Performed By: #### L 100.0100, L500.2500 #### [facility] [address] [place], [address] RDW CV Normal 11.6-14.6 [facility] Comment on above: Result Comment: Canc elled via OM: Order cancelled - Patient discharged Performed By: #### L 100.0100, L500.2500 #### [facility] [address] [place], [address] RDW SD Normal 35.1-43.9 [facility] Comment on above: Result Comment: Canc elled via OM: Order cancelled - Patient discharged Performed By: #### L 100.0100, L500.2500 #### [facility] [address] [place], [address] WBC Normal 4.4-11.0 [facility] Comment on above: Result Comment: Canc elled via OM: Order cancelled - Patient discharged Performed By: #### L 100.0100, L500.2500 #### [facility] [address] [place], [address] Tray 04-20-2024 FLORINDA Telephone (HEMAWS) -- CLINT VILLAR ([id number]) 1940 M Date Time Provider Department 04/20/24 JOHAN PAYNE During your visit today, we recorded the following information about you: Albertina Tejeda 04/20/2024 1:58 PM Signed Spouse Susanne called to cancel appointments this week due to patient falling a total of 5 times last and Friday and two squad trips to [facility]. Patient is still having weakness and feels he can not make it to the office. Patient was R/S to 05/28 per advise of nurse Marilyn. Bouchra Fortune RN 04/21/2024 3:[address] Payne aware and ok with appointment change. Chelsea Fortune RN Allergies As of Date: 04/20/2024 Noted Allergy Reaction LATEX 03/15/2024 2 - Rash Comments: Rash to skin Date Reviewed: 04/14/2024 Reviewed by: Radha Larsen MD - Fully Assessed Reason for Visit: Patient Update [1234] Prescriptions as of 04/21/2024 - iv contrast (will be provided with radiology test) CT Urogram WO/W Inject, intravenously, once for 1 dose.No IV access, insert saline lock prior to the beginning of sedation, infusion, injection of imaging exam. Discontinue saline lock post exam. If Pt. has a central line or IVAD, may access for administration according to line specific nursing protocol. Once exam is complete flush line and de-access according to line specific nursing protocol in the CT contrast administration guidelines link. - ondansetron orally disintegrating (ZOFRAN ODT) 8 mg disintegrating tablet Take 1 tablet by mouth every 8 hours as needed for nausea/vomiting. - valACYclovir (VALTREX) 500 mg tablet Take 1 tablet by mouth once daily. - bicalutamide (CASODEX) 50 mg tablet Take 1 tablet by mouth once daily. Take for 10 days starting when you get lupron injection - hydrOXYzine HCl (ATARAX) 25 mg tablet Take 1 tablet by mouth daily at bedtime. - losartan (COZAAR) 100 mg tablet Take 1 tablet by mouth once daily. - atorvastatin (LIPITOR) 40 mg tablet Take 1 tablet by mouth daily at bedtime. - tamsulosin (FLOMAX) 0.4 mg Take 2 capsules by mouth daily at bedtime. - levothyroxine (SYNTHROID) 112 mcg tablet Take 1 tablet by mouth once daily. Take on empty stomach. For thyroid - apixaban (ELIQUIS) 5 mg tab(s) Take 1 tablet by mouth two times a day. - metoprolol tartrate, short acting, (LOPRESSOR) 50 mg tablet Take 1 tablet by mouth two times a day. - amLODIPine (NORVASC) 5 mg tablet Take 1 tablet by mouth once daily. - cyclobenzaprine (FLEXERIL) 10 mg tablet Take 1 tablet by mouth twice daily as needed for muscle spasm. 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] 03/08/2014 05/23/2015 Hypothyroidism [E03.9] 07/21/2014 Herpes infection [B00.9] 05/23/2015 Muscle spasm of back [M62.830] 05/23/2015 Impaired fasting glucose [R73.01] 12/19/2016 Obesity, Class I, BMI 30-34.9 [E66.811] 01/29/2019 06/02/2020 Obesity, Class II, BMI 35-39.9 [E66.812] 06/02/2020 10/25/2023 COVID-19 virus infection [U07.1] 07/03/2020 12/06/2020 Erectile dysfunction [N52.9] 06/21/2021 Urinary frequency [R35.0] 06/21/2021 Anemia [D64.9] 12/27/2021 Positive colorectal cancer screening using [place]*01/03/2023 02/26/2024 Elevated PSA [R97.20] 01/09/2023 New onset atrial fibrillation (HCC) [I48.91] 06/23/2023 10/21/2023 Obesity, Class I, BMI 30-34.9 [E66.811] 07/24/2023 Paroxysmal atrial fibrillation (HCC) [I48.0] 10/21/2023 At risk for stroke [Z91.89] 10/21/2023 Anticoagulant long-term use [Z79.01] 10/21/2023 Peripheral vascular disease, unspecified (HCC) *10/16/2023 Rectal mass [K62.89] 12/04/2023 02/26/2024 Prostate cancer (HCC) [C61] 02/13/2024 Obstructive uropathy [N13.9] 02/26/2024 Preop testing [Z01.818] 03/05/2024 Bilateral hydronephrosis [N13.30] 03/08/2024 Acute urinary retention [R33.8] 03/24/2024 Encounter Status:Closed by BOUCHRA FORTUNE on 04/21/24 Normal [facility] Basic Metabolic Profile (BMP )on 04-19-2024 BUN Normal 11-19 [facility] Comment on above: Result Comment: Canc elled via OM: Order cancelled - Patient discharged Performed By: #### L 500.2500, L100.0100 #### [facility] [address] [place], [address] BUN/CRE Normal - [facility] Comment on above: Result Comment: Canc elled via OM: Order cancelled - Patient discharged Performed By: #### L 500.2500, L100.0100 #### [facility] [address] [place], [address] CA,Total Normal 8.5-10.1 [facility] Comment on above: Result Comment: Canc elled via OM: Order cancelled - Patient discharged Performed By: #### L 500.2500, L100.0100 #### [facility] [address] [place], [address] CL Normal 98-107 [facility] Comment on above: Result Comment: Canc elled via OM: Order cancelled - Patient discharged Performed By: #### L 500.2500, L100.0100 #### [facility] [address] [place], [address] CO2 Normal 21.0-32.0 [facility] Comment on above: Result Comment: Canc elled via OM: Order cancelled - Patient discharged Performed By: #### L 500.2500, L100.0100 #### [facility] [address] [place], [address] CREAT,SERUM Normal 0.70-1.30 [facility] Comment on above: Result Comment: Canc elled via OM: Order cancelled - Patient discharged Performed By: #### L 500.2500, L100.0100 #### [facility] [address] [place], [address] EST GFR Normal >60 [facility] Comment on above: Result Comment: Canc elled via OM: Order cancelled - Patient discharged Performed By: #### L 500.2500, L100.0100 #### [facility] [address] [place], [address] EST GFR - AA Normal >60 [facility] Comment on above: Result Comment: Canc elled via OM: Order cancelled - Patient discharged Performed By: #### L 500.2500, L100.0100 #### [facility] [address] [place], [address] GAP Normal 5-15 [facility] Comment on above: Result Comment: Canc elled via OM: Order cancelled - Patient discharged Performed By: #### L 500.2500, L100.0100 #### [facility] [address] [place], [address] GLU Normal 74-106 [facility] Comment on above: Result Comment: Canc elled via OM: Order cancelled - Patient discharged Performed By: #### L 500.2500, L100.0100 #### [facility] [address] [place], [address] Potassium Normal 3.5-5.1 [facility] Comment on above: Result Comment: Canc elled via OM: Order cancelled - Patient discharged Performed By: #### L 500.2500, L100.0100 #### [facility] [address] [place], [address] Basic Metabolic Profile (BMP) Normal 136-145 [facility] Comment on above: Result Comment: Canc elled via OM: Order cancelled - Patient discharged Performed By: #### L 500.2500, L100.0100 #### [facility] [address] [place], [address] CBC W/Diff, Automatedon 12-1 Absolute Neut Normal 2.0-7.7 [facility] Comment on above: Result Comment: Canc elled via OM: Order cancelled - Patient discharged Performed By: #### L 500.2500, L100.0100 #### [facility] [address] [place], [address] HCT Normal 40-54 [facility] Comment on above: Result Comment: Canc elled via OM: Order cancelled - Patient discharged Performed By: #### L 500.2500, L100.0100 #### [facility] [address] [place], [address] HGB Normal 13.0-16.5 [facility] Comment on above: Result Comment: Canc elled via OM: Order cancelled - Patient discharged Performed By: #### L 500.2500, L100.0100 #### [facility] [address] [place], [address] MCH Normal 27.0-32.0 [facility] Comment on above: Result Comment: Canc elled via OM: Order cancelled - Patient discharged Performed By: #### L 500.2500, L100.0100 #### [facility] [address] [place], [address] MCHC Normal 32-36 [facility] Comment on above: Result Comment: Canc elled via OM: Order cancelled - Patient discharged Performed By: #### L 500.2500, L100.0100 #### [facility] [address] [place], [address] MCV Normal 80-94 [facility] Comment on above: Result Comment: Canc elled via OM: Order cancelled - Patient discharged Performed By: #### L 500.2500, L100.0100 #### [facility] [address] [place], [address] NEUT% Normal 47-70 [facility] Comment on above: Result Comment: Canc elled via OM: Order cancelled - Patient discharged Performed By: #### L 500.2500, L100.0100 #### [facility] [address] [place], [address] PLT Normal 150-450 [facility] Comment on above: Result Comment: Canc elled via OM: Order cancelled - Patient discharged Performed By: #### L 500.2500, L100.0100 #### [facility] [address] [place], [address] RBC Normal 4.6-6.2 [facility] Comment on above: Result Comment: Canc elled via OM: Order cancelled - Patient discharged Performed By: #### L 500.2500, L100.0100 #### [facility] [address] [place], [address] RDW CV Normal 11.6-14.6 [facility] Comment on above: Result Comment: Canc elled via OM: Order cancelled - Patient discharged Performed By: #### L 500.2500, L100.0100 #### [facility] [address] [place], [address] RDW SD Normal 35.1-43.9 [facility] Comment on above: Result Comment: Canc elled via OM: Order cancelled - Patient discharged Performed By: #### L 500.2500, L100.0100 #### [facility] [address] [place], [address] WBC Normal 4.4-11.0 [facility] Comment on above: Result Comment: Canc elled via OM: Order cancelled - Patient discharged Performed By: #### L 500.2500, L100.0100 #### [facility] [address] [place], [address] Basic Metabolic Profile (BMP )on 04-18-2024 BUN/CRE 15.2 RATIO Normal 10-20 [facility] Comment on above: Performed By: #### L 500.2500, L100.0100 #### [facility] [address] [place], [address] CA,Total 8.2 mg/dL Low 8.5-10.1 [facility] Comment on above: Performed By: #### L 500.2500, L100.0100 #### [facility] [address] [place], [address] Chloride [Moles/Vol] 106 mmol/L Normal 98-107 [facility] Comment on above: Performed By: #### L 500.2500, L100.0100 #### [facility] [address] [place], [address] CO2 [Moles/Vol] 22.0 mmol/L Normal 21.0-32.0 [facility] Comment on above: Performed By: #### L 500.2500, L100.0100 #### [facility] [address] [place], [address] Creatinine [Mass/Vol] 1.78 mg/dL High 0.70-1.30 [facility] Comment on above: Result Comment: The validity of the calculated GFR GFRAA in patients over 70 years has not been determined. Clinical correlation is essential. Performed By: #### L 500.2500, L100.0100 #### [facility] [address] [place], [address] ECRCL 33.77 ml/min Normal [facility] Comment on above: Performed By: #### L 500.2500, L100.0100 #### [facility] [address] [place], [address] EST GFR - AA 47 mL/min Low >60 [facility] Comment on above: Result Comment: Afri can Haitian GFR Calc Performed By: #### L 500.2500, L100.0100 #### [facility] [address] [place], [address] GAP 6 Normal 5-15 [facility] Comment on above: Performed By: #### L 500.2500, L100.0100 #### [facility] [address] [place], [address] GFR/1.73 sq M.predicted among non-blacks MDRD (S/P/Bld) [Vol rate/Area] 39 mL/min/{1.73_m2} Low >60 [facility] Comment on above: Result Comment: Non- GFR Calc Performed By: #### L 500.2500, L100.0100 #### [facility] [address] [place], [address] Glucose [Mass/Vol] 135 mg/dL High 74-106 [facility] Comment on above: Result Comment: Fast ing Glucose result greater than or equal to 126 mg/dL suggests DIABETES MELLITUS per A.D.A. criteria. Performed By: #### L 500.2500, L100.0100 #### [facility] [address] [place], [address] Potassium [Moles/Vol] 3.5 mmol/L Normal 3.5-5.1 [facility] Comment on above: Performed By: #### L 500.2500, L100.0100 #### [facility] [address] [place], [address] Sodium [Moles/Vol] 134 mmol/L Low 136-145 [facility] Comment on above: Performed By: #### L 500.2500, L100.0100 #### [facility] [address] [place], [address] Urea nitrogen [Mass/Vol] 27 mg/dL High 7-18 [facility] Comment on above: Performed By: #### L 500.2500, L100.0100 #### [facility] [address] [place], [address] CBC W/Diff, Automatedon 04-04 Absolute Lymph 0.66 X10 3/uL Low 0.83-4.51 [facility] Comment on above: Performed By: #### L 500.2500, L100.0100 #### [facility] [address] [place], [address] Absolute Neut 10.8 X10 3/uL High 2.0-7.7 [facility] Comment on above: Performed By: #### L 500.2500, L100.0100 #### [facility] [address] [place], [address] Basophils/100 WBC (Bld) 0.1 % Normal 0-1 [facility] Comment on above: Performed By: #### L 500.2500, L100.0100 #### [facility] [address] [place], [address] Eosinophils/100 WBC (Bld) 0.0 % Normal 0-5 [facility] Comment on above: Performed By: #### L 500.2500, L100.0100 #### [facility] [address] [place], [address] Erythrocyte distribution width (RBC) [Ratio] 14.8 % High 11.6-14.6 [facility] Comment on above: Performed By: #### L 500.2500, L100.0100 #### [facility] [address] [place], [address] Hematocrit (Bld) [Volume fraction] 25.3 % Low 40-54 [facility] Comment on above: Performed By: #### L 500.2500, L100.0100 #### [facility] [address] [place], [address] Hemoglobin (Bld) [Mass/Vol] 8.4 g/dL Low 13.0-16.5 [facility] Comment on above: Performed By: #### L 500.2500, L100.0100 #### [facility] [address] [place], [address] IG% 0.600 Normal 0.0-0.9 [facility] Comment on above: Result Comment: IG% - Immature Granulocytes (promyelocytes, myelocytes and metamyelocytes) > 1% indicates that a LEFT SHIFT is Present. Performed By: #### L 500.2500, L100.0100 #### [facility] [address] [place], [address] Lymphocytes/100 WBC (Bld) 5.3 % Low 19-41 [facility] Comment on above: Performed By: #### L 500.2500, L100.0100 #### [facility] [address] [place], [address] MCH (RBC) [Entitic mass] 32.3 pg High 27.0-32.0 [facility] Comment on above: Performed By: #### L 500.2500, L100.0100 #### [facility] [address] [place], [address] MCHC (RBC) [Mass/Vol] 33.2 g/dL Normal 32-36 [facility] [facility] Comment on above: Performed By: #### L 500.2500, L100.0100 #### [facility] [address] [place], [address] MCV (RBC) [Entitic vol] 97.3 fL High 80-94 [facility] Comment on above: Performed By: #### L 500.2500, L100.0100 #### [facility] [address] [place], [address] Monocytes/100 WBC (Bld) 7.3 % Normal 0-10 [facility] Comment on above: Performed By: #### L 500.2500, L100.0100 #### [facility] [address] [place], [address] Neutrophils/100 WBC (Bld) 86.7 % High 47-70 [facility] Comment on above: Performed By: #### L 500.2500, L100.0100 #### [facility] [address] [place], [address] Nucleated RBC (Bld) [#/Vol] 0 10*3/uL Normal 0-5 [facility] Comment on above: Performed By: #### L 500.2500, L100.0100 #### [facility] [address] [place], [address] Platelet mean volume (Bld) [Entitic vol] 9.2 fL Normal 6.2-12.0 [facility] Comment on above: Performed By: #### L 500.2500, L100.0100 #### [facility] [address] [place], [address] Platelets (Bld) [#/Vol] 123 10*3/uL Low 150-450 [facility] Comment on above: Performed By: #### L 500.2500, L100.0100 #### [facility] [address] [place], [address] RBC (Bld) [#/Vol] 2.60 10*6/uL Low 4.6-6.2 [facility] Comment on above: Performed By: #### L 500.2500, L100.0100 #### [facility] [address] [place], [address] RDW SD 53.1 fl High 35.1-43.9 [facility] Comment on above: Performed By: #### L 500.2500, L100.0100 #### [facility] [address] [place], [address] WBC (Bld) [#/Vol] 12.5 10*3/uL High 4.4-11.0 [facility] Comment on above: Performed By: #### L 500.2500, L100.0100 #### [facility] [address] [place], [address] Discharge Instructionon 04-04 Discharge Instruction [facility] Medical Records Department [address] [place] [address] Instructions for Home/Discharge Instructions 04/18/24 1201 MR#: [id number] Acct: [id number] Name: CLINT VILLAR Rep #: [id number] : 1940 83 From: Nora Ward MD PCP: Dr. Cody Carrington MD Status:ADM IN Discharge Instructions Diet Discharge Diet: Low fat / Low cholesterol DC O2, CPAP, BIPAP needs Additional Home O2 Discharge instructions: No Dressing / Incision Discharge Activity: Return to Normal Activity Weight Bearing Status: Weight bearing as tolerated Dressing / Incision Call your doctor if you observe: Fever of 101 or Higher, Shortness of breath, Dizziness, Swelling in the ankles and Chest pain Follow Up Care Test Results: Test results from this visit will be discussed in further detail at your follow-up appointment, if applicable. Discharge Plan Admission Admit Date/Time: 04/16/24 15:07 Primary Reason for Your Visit: UTI Attending Provider: Nora Ward Primary Care Provider: Cody Carrington Consulting Providers: Valentina Raza Instructions Patient Instructions: ED Urinary Tract Infections in Men Discharge Orders/Prescriptions Prescriptions: New nitrofurantoin macrocrystal 100 mg capsule 100 mg PO BID Qty: 14 0RF Rx Instructions: must administer with a meal/food Continued losartan 100 mg tablet 100 mg PO QHS atorvastatin 40 mg tablet 40 mg PO QHS levothyroxine [Synthroid] 112 mcg tablet 112 mcg PO DAILY finasteride 5 mg tablet 5 mg PO DAILY valacyclovir 500 MG tablet 500 mg PO DAILY hydroxyzine HCl 25 mg tablet 25 mg PO QHS tamsulosin 0.4 mg capsule 0.4 mg PO BID metoprolol tartrate 50 mg Tablet 50 mg PO BID Qty: 60 0RF amlodipine 10 mg tablet 5 mg PO DAILY Qty: 1 0RF ondansetron 8 mg tablet,disintegrating 8 mg PO Q8H PRN PRN (Reason: nausea/vomiting) Discontinued cefuroxime axetil 500 mg tablet 500 mg PO BID 7 Days Qty: 14 0RF Referrals / Follow Up: Cody Carrington MD [Primary Care Provider] - Within 1 Week Disposition Disposition (needs filled in before D/C Order can be placed): Home, Self Care 04/18/24 1202 Nora Ward MD CC: Dr. Valentina Raza DO; Dr. Cody Carrington MD Signed Normal [facility] Abdomen/Pelvis without Conto n 04-17-2024 Abdomen/Pelvis without Cont [facility] Imaging Services [address] [place] [address] [id number] Abdomen/Pelvis without Cont MR#: [id number] Acct: [id number] Name: CLINT VILLAR Rep #: [id number] : 1940 M 83 From: Jaky peacock MD PCP: Dr. Cody Carrington MD Status: ADM IN Study: Abdomen/Pelvis without Cont Date of Exam: 04/04 08/26 Exam# [id number] Ordering Dr: Nora Ward MD [id number] HISTORY: abdominal pain, history of ureteral bilateral stents placed 6 weeks ago due to prostate cancer, radiation treatments. TECHNIQUE: Helically acquired images were obtained of the abdomen and pelvis without oral or IV contrast. A radiation dose optimization technique was used for this scan. 503 images. COMPARISON: XR prior day FINDINGS: LOWER CHEST: Calcified left lower lobe granuloma. Trace pleural effusions with mild dependent atelectasis. BOWEL: Bowel including appendix nondilated. Moderate stool in the colon. PERITONEUM: Trace free fluid. LIVER/SPLEEN: Nonenlarged. GALLBLADDER/BILIARY TREE: Contracted gallbladder. PANCREAS/ADRENAL GLANDS: Unremarkable. KIDNEYS AND URETERS: Mild bilateral perinephric and periureteral edema with bilateral ureteral stents in place. Mild bilateral hydronephrosis and distended extrarenal pelves without nephrolithiasis or obstructing ureteral calculus identified. VESSELS: No abdominal aortic aneurysm. Atherosclerosis. Mild retrocaval and periaortic lymph nodes measuring up to 1.2 x 1.9 cm. PELVIC ORGANS: Bladder wall thickening. Distal ends of bilateral ureteral stents in the bladder. Mild prostate calcifications. Mild presacral edema. Mild enlarged pelvic lymph nodes bilaterally measuring up to 1.6 cm on the right. BONES: 1.2 cm sclerotic lesion in the left L2 vertebral body. Degenerative change. Bilateral L5 spondylolysis with grade [address]/Abdomen/Pelvis without Cont IMPRESSION: Bilateral ureteral stents in place with mild bilateral hydronephrosis. Negative examination for renal stone. Bilateral perinephric, periureteral, and bladder wall edema, which may be related to posttreatment inflammation or infection. 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 Sclerotic lesion in the L2 vertebral body, suspicious for osteoblastic metastasis. Recommend bone scan correlation. Trace pleural effusions and ascites. Electronically Signed: Jaky Hou MD at 12:46 EST , CC: Dr. Nora Ward MD; Dr. Cody Carrington MD Cost Estimating Manager: Signed Normal [facility] Basic Metabolic Profile (BMP )on 04-17-2024 BUN/CRE 18.3 RATIO Normal -20 [facility] Comment on above: Performed By: #### L 500.2500, L100.0100 #### [facility] [address] [place], [place] [address], [address] CA,Total 8.4 mg/dL Low 8.5-10.1 [facility] Comment on above: Performed By: #### L 500.2500, L100.0100 #### [facility] [address] [place], [address] Chloride [Moles/Vol] 107 mmol/L Normal 98-107 [facility] Comment on above: Performed By: #### L 500.2500, L100.0100 #### [facility] [address] [place], [address] CO2 [Moles/Vol] 24.0 mmol/L Normal 21.0-32.0 [facility] Comment on above: Performed By: #### L 500.2500, L100.0100 #### [facility] [address] [place], [address] Creatinine [Mass/Vol] 1.75 mg/dL High 0.70-1.30 [facility] Comment on above: Result Comment: The validity of the calculated GFR GFRAA in patients over 70 years has not been determined. Clinical correlation is essential. Performed By: #### L 500.2500, L100.0100 #### [facility] [address] [place], [address] ECRCL 34.35 ml/min Normal [facility] Comment on above: Performed By: #### L 500.2500, L100.0100 #### [facility] [address] [place], [address] EST GFR - AA 48 mL/min Low >60 [facility] Comment on above: Result Comment: Afri can Haitian GFR Calc Performed By: #### L 500.2500, L100.0100 #### [facility] [address] [place], [address] GAP 6 Normal 5-15 [facility] Comment on above: Performed By: #### L 500.2500, L100.0100 #### [facility] [address] [place], [address] GFR/1.73 sq M.predicted among non-blacks MDRD (S/P/Bld) [Vol rate/Area] 40 mL/min/{1.73_m2} Low >60 [facility] Comment on above: Result Comment: Non- GFR Calc Performed By: #### L 500.2500, L100.0100 #### [facility] [address] [place], [address] Glucose [Mass/Vol] 132 mg/dL High 74-106 [facility] Comment on above: Result Comment: Fast ing Glucose result greater than or equal to 126 mg/dL suggests DIABETES MELLITUS per A.D.A. criteria. Performed By: #### L 500.2500, L100.0100 #### [facility] [address] [place], [address] Potassium [Moles/Vol] 3.9 mmol/L Normal 3.5-5.1 [facility] Comment on above: Performed By: #### L 500.2500, L100.0100 #### [facility] [address] [place], [address] Sodium [Moles/Vol] 137 mmol/L Normal 136-145 [facility] Comment on above: Performed By: #### L 500.2500, L100.0100 #### [facility] [address] [place], [address] Urea nitrogen [Mass/Vol] 32 mg/dL High 7-18 [facility] Comment on above: Performed By: #### L 500.2500, L100.0100 #### [facility] [address] [place], [address] CBC W/Diff, Automatedon 12-1 Absolute Lymph 0.61 X10 3/uL Low 0.83-4.51 [facility] Comment on above: Performed By: #### L 500.2500, L100.0100 #### [facility] [address] [place], [address] Absolute Neut 10.7 X10 3/uL High 2.0-7.7 [facility] Comment on above: Performed By: #### L 500.2500, L100.0100 #### [facility] [address] [place], [address] Basophils/100 WBC (Bld) 0.2 % Normal 0-1 [facility] Comment on above: Performed By: #### L 500.2500, L100.0100 #### [facility] [address] [place], [address] Eosinophils/100 WBC (Bld) 0.0 % Normal 0-5 [facility] Comment on above: Performed By: #### L 500.2500, L100.0100 #### [facility] [address] [place], [address] Erythrocyte distribution width (RBC) [Ratio] 15.0 % High 11.6-14.6 [facility] Comment on above: Performed By: #### L 500.2500, L100.0100 #### [facility] [address] [place], [address] Hematocrit (Bld) [Volume fraction] 25.3 % Low 40-54 [facility] Comment on above: Performed By: #### L 500.2500, L100.0100 #### [facility] [address] [place], [address] Hemoglobin (Bld) [Mass/Vol] 8.3 g/dL Low 13.0-16.5 [facility] Comment on above: Performed By: #### L 500.2500, L100.0100 #### [facility] [address] [place], [address] IG% 1.000 High 0.0-0.9 [facility] Comment on above: Result Comment: IG% - Immature Granulocytes (promyelocytes, myelocytes and metamyelocytes) > 1% indicates that a LEFT SHIFT is Present. Performed By: #### L 500.2500, L100.0100 #### [facility] [address] [place], [address] Lymphocytes/100 WBC (Bld) 4.8 % Low 19-41 [facility] Comment on above: Performed By: #### L 500.2500, L100.0100 #### [facility] [address] [place], [address] MCH (RBC) [Entitic mass] 32.2 pg High 27.0-32.0 [facility] Comment on above: Performed By: #### L 500.2500, L100.0100 #### [facility] [address] [place], [address] MCHC (RBC) [Mass/Vol] 32.8 g/dL Normal 32-36 [facility] Comment on above: Performed By: #### L 500.2500, L100.0100 #### [facility] [address] [place], [address] MCV (RBC) [Entitic vol] 98.1 fL High 80-94 [facility] Comment on above: Performed By: #### L 500.2500, L100.0100 #### [facility] [address] [place], [address] Monocytes/100 WBC (Bld) 9.6 % Normal 0-10 [facility] Comment on above: Performed By: #### L 500.2500, L100.0100 #### [facility] [address] [place], [address] Neutrophils/100 WBC (Bld) 84.4 % High 47-70 [facility] Comment on above: Performed By: #### L 500.2500, L100.0100 #### [facility] [address] [place], [address] Nucleated RBC (Bld) [#/Vol] 0 10*3/uL Normal 0-5 [facility] Comment on above: Performed By: #### L 500.2500, L100.0100 #### [facility] [address] [place], [address] Platelet mean volume (Bld) [Entitic vol] 9.2 fL Normal 6.2-12.0 [facility] Comment on above: Performed By: #### L 500.2500, L100.0100 #### [facility] [address] [place], [address] Platelets (Bld) [#/Vol] 132 10*3/uL Low 150-450 [facility] Comment on above: Performed By: #### L 500.2500, L100.0100 #### [facility] [address] [place], [address] RBC (Bld) [#/Vol] 2.58 10*6/uL Low 4.6-6.2 [facility] Comment on above: Performed By: #### L 500.2500, L100.0100 #### [facility] [address] [place], [address] RDW SD 53.8 fl High 35.1-43.9 [facility] Comment on above: Performed By: #### L 500.2500, L100.0100 #### [facility] [address] [place], [address] WBC (Bld) [#/Vol] 12.6 10*3/uL High 4.4-11.0 [facility] Comment on above: Performed By: #### L 500.2500, L100.0100 #### [facility] [address] [place], [place], [id number] Urine Cultureon 04-17-2024 [facility] Enterococcus faecali s [place] Count 80,000-100,000 Enterococcus faecalis: REACTION Ampicillin Islt LORETTA <=2 Ciprofloxacin Islt LORETTA 1 S Gentamicin Synergy Susc Islt SYN-S S levoFLOXacin Islt LORETTA 1 S Linezolid Islt LORETTA 2 S Nitrofurantoin Islt LORETTA <=16 S Streptomycin High Pot Susc Islt SYN-S S Tetracycline Islt LORETTA >=16 R Vancomycin Islt LORETTA 2 S Normal [facility] Comment on above: Performed By: #### L 100.0100, L500.2500 #### [facility] [address] [place], [address] Abdomen Single Viewon 2023 Abdomen Single View [facility] Imaging Services [address] [place], [place] [address] Abdomen Single View MR#: [id number] Acct: [id number] Name: CLINT VILLAR Rep #: [id number] : 1940 M 83 From: Aranza Dewitt MD PCP: Dr. Cody Carrington MD Status: REG ER Study: Abdomen Single View Date of Exam: 04/16/24 Exam# [id number] Ordering Dr: Johnnie De La O MD [id number] INDICATION: UTI, bilat ureteral stents EXAMINATION/TECHNIQUE: X-RAY - XR Abdomen 2 frontal views. COMPARISON: No relevant prior comparison study available FINDINGS: BOWEL GAS PATTERN: Non-obstructive. No bowel or stomach distention. FREE AIR: Not assessed on a single supine view. ORGANOMEGALY: Not seen. CALCIFICATIONS: There aren''t phleboliths within the pelvis. There are vascular calcifications. LOWER CHEST: No acute pathology. BONES AND SOFT TISSUES: There are degenerative changes of the lumbar spine and hips. There are two ureteral stents in place in a grossly satisfactory positions. RAD/Abdomen Single View IMPRESSION: Non-obstructive bowel gas pattern. Electronically Signed: Aranza Dewitt MD at 12:45 EST , CC: Dr. Johnnie De La O MD; Dr. Cody Carrington MD Cost Estimating Manager: Signed Normal [facility] Basic Metabolic Profile (BMP )on 04-16-2024 BUN/CRE 14.9 RATIO Normal 10-20 [facility] Comment on above: Performed By: #### L 100.0100, L500.2500 #### [facility] [address] [place], [address] CA,Total 9.0 mg/dL Normal 8.5-10.1 [facility] Comment on above: Performed By: #### L 100.0100, L500.2500 #### [facility] [address] [place], [address] Chloride [Moles/Vol] 103 mmol/L Normal 98-107 [facility] Comment on above: Performed By: #### L 100.0100, L500.2500 #### [facility] [address] [place], [address] CO2 [Moles/Vol] 21.0 mmol/L Normal 21.0-32.0 [facility] Comment on above: Performed By: #### L 100.0100, L500.2500 #### [facility] [address] [place], [address] Creatinine [Mass/Vol] 1.88 mg/dL High 0.70-1.30 [facility] Comment on above: Result Comment: The validity of the calculated GFR GFRAA in patients over 70 years has not been determined. Clinical correlation is essential. Performed By: #### L 100.0100, L500.2500 #### [facility] [address] [place], [address] ECRCL 33.07 ml/min Normal [facility] Comment on above: Performed By: #### L 100.0100, L500.2500 #### [facility] [address] [place], [address] EST GFR - AA 44 mL/min Low >60 [facility] Comment on above: Result Comment: Afri can Haitian GFR Calc Performed By: #### L 100.0100, L500.2500 #### [facility] [address] [place], [address] GAP 11 Normal 5-15 [facility] Comment on above: Performed By: #### L 100.0100, L500.2500 #### [facility] [address] [place], [address] GFR/1.73 sq M.predicted among non-blacks MDRD (S/P/Bld) [Vol rate/Area] 37 mL/min/{1.73_m2} Low >60 [facility] Comment on above: Result Comment: Non- GFR Calc Performed By: #### L 100.0100, L500.2500 #### [facility] [address] [place], [address] Glucose [Mass/Vol] 144 mg/dL High 74-106 [facility] Comment on above: Result Comment: Fast ing Glucose result greater than or equal to 126 mg/dL suggests DIABETES MELLITUS per A.D.A. criteria. Performed By: #### L 100.0100, L500.2500 #### [facility] [address] [place], [address] Potassium [Moles/Vol] 3.5 mmol/L Normal 3.5-5.1 [facility] Comment on above: Performed By: #### L 100.0100, L500.2500 #### [facility] [address] [place], [address] Sodium [Moles/Vol] 135 mmol/L Low 136-145 [facility] Comment on above: Performed By: #### L 100.0100, L500.2500 #### [facility] [address] [place], [address] Urea nitrogen [Mass/Vol] 28 mg/dL High 7-18 [facility] Comment on above: Performed By: #### L 100.0100, L500.2500 #### [facility] [address] [place], [address] CBC W/Diff, Automatedon 12-05 07-2023 Absolute Lymph 0.27 X10 3/uL Low 0.83-4.51 [facility] Comment on above: Performed By: #### L 100.0100, L500.2500 #### [facility] [address] [place], [address] Absolute Neut 10.6 X10 3/uL High 2.0-7.7 [facility] Comment on above: Performed By: #### L 100.0100, L500.2500 #### [facility] [address] [place], [address] Basophils/100 WBC (Bld) 0.1 % Normal 0-1 [facility] Comment on above: Performed By: #### L 100.0100, L500.2500 #### [facility] [address] [place], [address] Eosinophils/100 WBC (Bld) 0.0 % Normal 0-5 [facility] Comment on above: Performed By: #### L 100.0100, L500.2500 #### [facility] [address] [place], [address] Erythrocyte distribution width (RBC) [Ratio] 14.6 % Normal 11.6-14.6 [facility] Comment on above: Performed By: #### L 100.0100, L500.2500 #### [facility] [address] [place], [address] Hematocrit (Bld) [Volume fraction] 28.0 % Low 40-54 [facility] Comment on above: Performed By: #### L 100.0100, L500.2500 #### [facility] [address] [place], [address] Hemoglobin (Bld) [Mass/Vol] 9.6 g/dL Low 13.0-16.5 [facility] Comment on above: Performed By: #### L 100.0100, L500.2500 #### [facility] [address] [place], [address] IG% 0.500 Normal 0.0-0.9 [facility] Comment on above: Result Comment: IG% - Immature Granulocytes (promyelocytes, myelocytes and metamyelocytes) > 1% indicates that a LEFT SHIFT is Present. Performed By: #### L 100.0100, L500.2500 #### [facility] [address] [place], [address] Lymphocytes/100 WBC (Bld) 2.2 % Low 19-41 [facility] Comment on above: Performed By: #### L 100.0100, L500.2500 #### [facility] [address] [place], [address] MCH (RBC) [Entitic mass] 32.4 pg High 27.0-32.0 [facility] Comment on above: Performed By: #### L 100.0100, L500.2500 #### [facility] [address] [place], [address] MCHC (RBC) [Mass/Vol] 34.3 g/dL Normal 32-36 [facility] Comment on above: Performed By: #### L 100.0100, L500.2500 #### [facility] [address] [place], [address] MCV (RBC) [Entitic vol] 94.6 fL High 80-94 [facility] Comment on above: Performed By: #### L 100.0100, L500.2500 #### [facility] [address] [place], [address] Monocytes/100 WBC (Bld) 10.1 % High 0-10 [facility] Comment on above: Performed By: #### L 100.0100, L500.2500 #### [facility] [address] [place], [address] Neutrophils/100 WBC (Bld) 87.1 % High 47-70 [facility] Comment on above: Performed By: #### L 100.0100, L500.2500 #### [facility] [address] [place], [address] Nucleated RBC (Bld) [#/Vol] 0 10*3/uL Normal 0-5 [facility] Comment on above: Performed By: #### L 100.0100, L500.2500 #### [facility] [address] [place], [address] Platelet mean volume (Bld) [Entitic vol] 8.8 fL Normal 6.2-12.0 [facility] Comment on above: Performed By: #### L 100.0100, L500.2500 #### [facility] [address] [place], [address] Platelets (Bld) [#/Vol] 168 10*3/uL Normal 150-450 [facility] Comment on above: Performed By: #### L 100.0100, L500.2500 #### [facility] [address] [place], [address] RBC (Bld) [#/Vol] 2.96 10*6/uL Low 4.6-6.2 [facility] Comment on above: Performed By: #### L 100.0100, L500.2500 #### [facility] [address] [place], [address] RDW SD 50.0 fl High 35.1-43.9 [facility] Comment on above: Performed By: #### L 100.0100, L500.2500 #### [facility] [address] [place], [address] WBC (Bld) [#/Vol] 12.2 10*3/uL High 4.4-11.0 [facility] Comment on above: Performed By: #### L 100.0100, L500.2500 #### [facility] [address] [place], [address] Chest PA and Lateralon 04-16 Chest PA and Lateral [facility] Imaging Services [address] [place] [address] Chest PA and Lateral MR#: [id number] Acct: [id number] Name: CLINT VILLAR Rep #: [id number] : 1940 M 83 From: Aranza Dewitt MD PCP: Dr. Cody Carrington MD Status: [facility] ER Study: Chest PA and Lateral Date of Exam: 04/16/24 Exam# [id number] Ordering Dr: Johnnie De La O MD [id number] INDICATION: weakness, hypoxemia EXAMINATION/TECHNIQUE: X-RAY - XR Chest 2 Views COMPARISON: June 16, 2023 FINDINGS: LINES/DEVICES: None. LUNGS: No consolidation, edema or effusion. No pneumothorax. MEDIASTINUM AND CARDIOVASCULAR STRUCTURES: There is stable cardiomegaly. Central airways and mediastinal contour are unremarkable. BONES AND SOFT TISSUES: Unremarkable. RAD/Chest PA and Lateral IMPRESSION: No radiographic evidence of acute cardiopulmonary disease. Electronically Signed: Aranza Dewitt MD at 13:22 EST , CC: Dr. Johnnie De La O MD; Dr. Cody Carrington MD Cost Estimating Manager: Signed Normal [facility] Emergency Department Summary on 04-16-2024 Emergency Department Summary [facility] Medical Records Department [address] [place] [address] Emergency Department Summary 04/16/24 MR#: [id number] Acct: [id number] Name: CLINT VILLAR Rep #: [id number] : 1940 83 From: Johnnie De La O MD PCP: Dr. Cody Carrington MD Status:ADM IN Location: [place] [address]-1 HPI History of Present Illness Chief Complaint: Weakness Informant: patient and family Narrative Narrative: 83-year-old male seen here yesterday for urinary infection, he was feeling weak and decided to go home but is feeling weaker and had another couple of falls without injury and now is changing his mind about the offer that was given for admission. He denies any new symptoms except for an episode of vomiting and diarrhea. He had some abdominal pain last night but that is gone. States he is having kidney pain whenever he urinates, on both sides. Denies any urethral dysuria or hematuria. He denies any fevers or chills. No syncope. He did not hit his head since he was last here. He has prostate cancer and had a catheter in for a while that was taken out several days ago, and the discomfort with urinating has only been since then. He had bilateral ureteral stents placed by his urologist who is at [facility] in [place], about 6 weeks ago and those are still present. He states when he is not urinating he does not have any pain from them. [facility] Medical History Prostate CA Erectile dysfunction Elevated PSA Atrial fibrillation CKD (chronic kidney disease) Obesity (BMI 30.0-34.9) Anxiety Hypothyroidism Hyperlipidemia BPH (benign prostatic hyperplasia) Hyperglycemia Hypertension Home Medications ???Medication ???Instructions ???Recorded ???Last Taken ???Type atorvastatin 40 mg tablet 40 mg PO QHS cholesterol 07/08/19 06/14/23 History losartan 100 mg tablet 100 mg PO QHS bp 07/08/19 06/15/23 History valacyclovir 500 mg tablet 500 mg PO DAILY herpes 07/03/20 06/15/23 History hydroxyzine HCl 25 mg tablet 25 mg PO QHS anxiety 06/16/23 06/15/23 History tamsulosin 0.4 mg capsule 0.4 mg PO BID prostate 06/16/23 06/14/23 History amlodipine 10 mg tablet 5 mg (1/2 x 10 mg) PO DAILY blood 06/17/23 06/15/23 Rx pressure #1 TAB metoprolol tartrate 50 mg tablet 50 mg PO BID #60 tabs 06/17/23 Unknown Rx finasteride 5 mg tablet 5 mg PO DAILY 09/22/23 Unknown History levothyroxine 112 mcg tablet 112 mcg PO DAILY 09/22/23 Unknown History (Synthroid) cefuroxime axetil 500 mg tablet 500 mg PO BID 7 days #14 tabs 04/15/24 Unknown Rx ondansetron 8 mg disintegrating 8 mg PO Q8H PRN PRN nausea/vomiting 04/15/24 Unknown History tablet Allergy/AdvReac Type Severity Reaction Status Date / Time No Known Allergies Allergy Verified 04/16/24 11:53 Family History Other Hyperlipidemia Hypertension Thyroid disorder Surgical History History of shoulder surgery Social History household members: spouse housing: house Smoking Status: Former smoker alcohol intake: never substance use type: does not use ROS ROS ED Constitutional Constitutional ED: Reports weakness; Denies chills or fever(s) Eyes Eyes: Denies change in vision or diplopia ENT ENT ED: Denies rhinorrhea or sore throat Cardiovascular Cardiovascular: Denies chest pain or palpitations Respiratory/Chest Respiratory/Chest: Denies cough or dyspnea Gastrointestinal Gastrointestinal: Reports diarrhea, nausea and vomiting; Denies abdominal pain Genitourinary Genitourinary ED: Denies hematuria Musculoskeletal Musculoskeletal: Reports as per HPI and back pain; Denies extremity pain or neck pain Integumentary Denies abscess or rash Neurologic Neurologic: Denies headache(s), paresthesias or weakness Psychiatric Psychiatric: Denies anxiety or suicidal thoughts EXAM Physical Exam Const Vital Signs: 04/16/24 11:49 04/16/24 11:53 04/16/24 12:45 Temperature 99.1 F Temperature Source Oral Pulse Rate 70 Respiratory Rate 16 Respiratory Effort Normal Non-Labored Respiratory Pattern Normal Blood Pressure 126/54 H Blood Pressure Mean 78 Pulse Ox 94 86 Oxygen Delivery Method Room Air Oxygen Flow Rate (L/min) 04/16/24 12:49 Temperature Temperature Source Pulse Rate Respiratory Rate Respiratory Effort Respiratory Pattern Blood Pressure Blood Pressure Mean Pulse Ox 97 Oxygen Delivery Method Nasal Cannula Oxygen Flow Rate (L/min) 2 Positive well nourished and well developed Constitutional Narrative: Well-appearing General Appearance ED: well developed and NAD BRIDGETTE (more content not included)... Normal [facility] H AND P Exam - Hospitaliston 04-16-2024 H&P Exam - Hospitalist [facility] Medical Records Department [address] [place] [id number] H P Exam - Hospitalist 04/16/24 1758 MR#: [id number] Acct: [id number] Name: CLINT VILLAR Rep #: [id number] : 1940 83 From: Valentina Raza DO PCP: Dr. Cody Carrington MD Status:ADM IN [facility] - General General Date of Admission: 04/16/24 Date of Service: 04/16/24 Chief Complaint: Generalized weakness, urinary tract infection HPI Narrative CLINT VILLAR, is a 83 M who presents to the emergency room at [facility] with complaints of generalized weakness over the last 24 hours, patient had been diagnosed with a urinary tract infection in the emergency room yesterday and placed on oral antibiotics. He has a history of bilateral ureteral stent placement 6 weeks ago due to prostate cancer. Patient has a history of paroxysmal A-fib and is currently off Eliquis at the present time. Lab obtained in the emergency room showed elevated white blood cell count of 12.2, hemoglobin was 9.6, creatinine was 1.88 and BUN was 28. Blood sugar was 144. Patient's pulse ox was 86% on room air, he was placed on 2 L of oxygen. Urinalysis obtained from yesterday in the ER showed 50-100 WBCs, 5-10 RBCs, and rare bacteria. Chest x-ray showed no radiographic evidence of acute cardiopulmonary disease. Patient will be admitted for acute debility and dehydration, he will be seen by PT and OT, IV fluids will be administered, patient will receive IV antibiotics for his UTI. [facility] Medical History Prostate CA Erectile dysfunction Elevated PSA Atrial fibrillation CKD (chronic kidney disease) Obesity (BMI 30.0-34.9) Anxiety Hypothyroidism Hyperlipidemia BPH (benign prostatic hyperplasia) Hyperglycemia Hypertension Home Medications ???Medication ???Instructions ???Recorded ???Last Taken ???Type atorvastatin 40 mg tablet 40 mg PO QHS cholesterol 07/08/19 06/14/23 History losartan 100 mg tablet 100 mg PO QHS bp 07/08/19 06/15/23 History valacyclovir 500 mg tablet 500 mg PO DAILY herpes 07/03/20 06/15/23 History hydroxyzine HCl 25 mg tablet 25 mg PO QHS anxiety 06/16/23 06/15/23 History tamsulosin 0.4 mg capsule 0.4 mg PO BID prostate 06/16/23 06/14/23 History amlodipine 10 mg tablet 5 mg (1/2 x 10 mg) PO DAILY blood 06/17/23 06/15/23 Rx pressure #1 TAB metoprolol tartrate 50 mg tablet 50 mg PO BID #60 tabs 06/17/23 Unknown Rx finasteride 5 mg tablet 5 mg PO DAILY 09/22/23 Unknown History levothyroxine 112 mcg tablet 112 mcg PO DAILY 09/22/23 Unknown History (Synthroid) cefuroxime axetil 500 mg tablet 500 mg PO BID 7 days #14 tabs 04/15/24 Unknown Rx ondansetron 8 mg disintegrating 8 mg PO Q8H PRN PRN nausea/vomiting 04/15/24 Unknown History tablet Allergy/AdvReac Type Severity Reaction Status Date / Time No Known Allergies Allergy Verified 04/16/24 11:53 Family History Other Hyperlipidemia Hypertension Thyroid disorder Surgical History History of shoulder surgery Social History household members: spouse housing: house Smoking Status: Former smoker alcohol intake: never substance use type: does not use ROS Constitutional Constitutional: Reports fatigue, malaise and weakness; Denies anorexia, change in weight, chills, fever(s) or night sweats Eyes Eyes: Denies blurry vision, change in vision, discharge from eye(s) or eye pain Cardiovascular Cardiovascular: Denies chest pain, claudication, dyspnea on exertion, edema, lightheadedness or palpitations Respiratory/Chest Respiratory/Chest: Denies cough, dyspnea, hemoptysis, productive cough, shortness of breath at rest or shortness of breath with exertion Gastrointestinal Gastrointestinal: Denies abdominal pain, constipation, diarrhea, hematemesis, hematochezia, melena, nausea or vomiting Genitourinary Genitourinary: Denies difficulty urinating, dysuria, hematuria, urinary frequency, urinary hesitancy, urinary incontinence or urinary urgency Musculoskeletal Musculoskeletal: Denies back pain, joint pain, joint stiffness, joint swelling, myalgias or neck pain Neurologic Neurologic: Denies abnormal gait, abnormal speech, dizziness, focal weakness, headache(s), loss of vision, numbness, other visual disturbances, paresthesias, syncope or tingling Psychiatric Psychiatric: Denies anxiety, cognitive impairment, depression, irritability, mood swings or suicidal ideation Endocrine Endocrinology: Denies change in body appearance, cold intolerance, excessive sweating, heat intolerance, polydipsia or polyuria Hematologic/Lymphatic Hematologic/Lym (more content not included)... Normal [facility] Lactic Acidon 04-16-2024 Lactate [Moles/Vol] 1.3 mmol/L Normal 0.4-1.9 [facility] Comment on above: Performed By: #### L 500.2500, L100.0100 #### [facility] [address] [place], [address] Lactate [Moles/Vol] 2.1 mmol/L Invalid Interpretation Code 0.4-1.9 [facility] Comment on above: Order Comment: Y Result Comment: Crit ical Result(s) Called at: 13:14:04 04/16/2024 by: EDER ABREU TO RENATA. Results read back by same. Performed By: #### L 100.0100, L500.2500 #### [facility] [address] [place], [address] Basic Metabolic Profile (BMP )on 04-15-2024 BUN/CRE 16.5 RATIO Normal 10-20 [facility] Comment on above: Performed By: #### L 100.0100, L500.2500 #### [facility] [address] [place], [address] CA,Total 9.6 mg/dL Normal 8.5-10.1 [facility] Comment on above: Performed By: #### L 100.0100, L500.2500 #### [facility] [address] [place], [address] Chloride [Moles/Vol] 101 mmol/L Normal 98-107 [facility] Comment on above: Performed By: #### L 100.0100, L500.2500 #### [facility] [address] [place], [address] CO2 [Moles/Vol] 23.0 mmol/L Normal 21.0-32.0 [facility] Comment on above: Performed By: #### L 100.0100, L500.2500 #### [facility] [address] [place], [address] Creatinine [Mass/Vol] 1.82 mg/dL High 0.70-1.30 [facility] Comment on above: Result Comment: The validity of the calculated GFR GFRAA in patients over 70 years has not been determined. Clinical correlation is essential. Performed By: #### L 100.0100, L500.2500 #### [facility] [address] [place], [address] ECRCL 33.86 ml/min Normal [facility] Comment on above: Performed By: #### L 100.0100, L500.2500 #### [facility] [address] [place], [address] EST GFR - AA 46 mL/min Low >60 [facility] Comment on above: Result Comment: Afri can Haitian GFR Calc Performed By: #### L 100.0100, L500.2500 #### [facility] [address] [place], [address] GAP 10 Normal 5-15 [facility] Comment on above: Performed By: #### L 100.0100, L500.2500 #### [facility] [address] [place], [address] GFR/1.73 sq M.predicted among non-blacks MDRD (S/P/Bld) [Vol rate/Area] 38 mL/min/{1.73_m2} Low >60 [facility] Comment on above: Result Comment: Non- GFR Calc Performed By: #### L 100.0100, L500.2500 #### [facility] [address] [place], [address] Glucose [Mass/Vol] 175 mg/dL High 74-106 [facility] Comment on above: Result Comment: Fast ing Glucose result greater than or equal to 126 mg/dL suggests DIABETES MELLITUS per A.D.A. criteria. Performed By: #### L 100.0100, L500.2500 #### [facility] [address] [place], [address] Potassium [Moles/Vol] 3.9 mmol/L Normal 3.5-5.1 [facility] Comment on above: Performed By: #### L 100.0100, L500.2500 #### [facility] [address] [place], [address] Sodium [Moles/Vol] 134 mmol/L Low 136-145 [facility] Comment on above: Performed By: #### L 100.0100, L500.2500 #### [facility] [address] [place], [address] Urea nitrogen [Mass/Vol] 30 mg/dL High 7-18 [facility] Comment on above: Performed By: #### L 100.0100, L500.2500 #### [facility] [address] [place], [address] Brain/Head without Contrasto n 04-15-2024 Brain/Head without Contrast [facility] Imaging Services [address] [place] [address] Brain/Head without Contrast MR#: [id number] Acct: [id number] Name: CLINT VILLAR Rep #: [id number] : 1940 M 83 From: Charly Del Angel MD PCP: Dr. Cody Carrington MD Status: REG ER Study: Brain/Head without Contrast Date of Exam: 04/04 06/28 Exam# [id number] Ordering Dr: Fernando Hollins DO [id number] INDICATION: Trauma, injury EXAMINATION: CT BRAIN - CT Head or Brain W/O Contrast Injection TECHNIQUE: Multiple axial images were obtained of the head without intravenous contrast. A radiation dose optimization technique was used for this scan. IV Contrast dosage and agent: None. COMPARISON: None. FINDINGS: BRAIN PARENCHYMA: No intra- or extra-axial hemorrhage. No evidence of acute infarct. No intracranial mass or mass effect. There is preservation of the toro/white matter interface. Posterior fossa structures are unremarkable. CSF SPACES: Appropriate for age. No hydrocephalus. Basal cisterns are patent. CALVARIUM, SKULL BASE, PARANASAL SINUSES AND MASTOID AIR CELLS: Clear. No acute skull fracture. CT/Brain/Head without Contrast IMPRESSION: No acute intracranial findings. Electronically Signed: Charly Del Angel MD at 20:54 EST , CC: Dr. Fernando Hollins DO; Dr. Cody Carrington MD Cost Estimating Manager: Signed Normal [facility] CBC W/Diff, Automatedon 04-04 Absolute Lymph 0.69 X10 3/uL Low 0.83-4.51 [facility] Comment on above: Performed By: #### L 100.0100, L500.2500 #### [facility] [address] [place], [address] Absolute Neut 7.0 X10 3/uL Normal 2.0-7.7 [facility] Comment on above: Performed By: #### L 100.0100, L500.2500 #### [facility] [address] [place], [address] Basophils/100 WBC (Bld) 0.3 % Normal 0-1 [facility] Comment on above: Performed By: #### L 100.0100, L500.2500 #### [facility] [address] [place], [address] Eosinophils/100 WBC (Bld) 0.1 % Normal 0-5 [facility] Comment on above: Performed By: #### L 100.0100, L500.2500 #### [facility] [address] [place], [address] Erythrocyte distribution width (RBC) [Ratio] 14.6 % Normal 11.6-14.6 [facility] Comment on above: Performed By: #### L 100.0100, L500.2500 #### [facility] [address] [place], [address] Hematocrit (Bld) [Volume fraction] 32.4 % Low 40-54 [facility] Comment on above: Performed By: #### L 100.0100, L500.2500 #### [facility] [address] [place], [address] Hemoglobin (Bld) [Mass/Vol] 11.1 g/dL Low 13.0-16.5 [facility] Comment on above: Performed By: #### L 100.0100, L500.2500 #### [facility] [address] [place], [address] IG% 0.700 Normal 0.0-0.9 [facility] Comment on above: Result Comment: IG% - Immature Granulocytes (promyelocytes, myelocytes and metamyelocytes) > 1% indicates that a LEFT SHIFT is Present. Performed By: #### L 100.0100, L500.2500 #### [facility] [address] [place], [address] Lymphocytes/100 WBC (Bld) 7.7 % Low 19-41 [facility] Comment on above: Performed By: #### L 100.0100, L500.2500 #### [facility] [address] [place], [address] MCH (RBC) [Entitic mass] 32.7 pg High 27.0-32.0 [facility] Comment on above: Performed By: #### L 100.0100, L500.2500 #### [facility] [address] [place], [address] MCHC (RBC) [Mass/Vol] 34.3 g/dL Normal 32-36 [facility] Comment on above: Performed By: #### L 100.0100, L500.2500 #### [facility] [address] [place], [address] MCV (RBC) [Entitic vol] 95.6 fL High 80-94 [facility] Comment on above: Performed By: #### L 100.0100, L500.2500 #### [facility] [address] [place] [place], [address] Monocytes/100 WBC (Bld) 13.2 % High 0-10 [facility] Comment on above: Performed By: #### L 100.0100, L500.2500 #### [facility] [address] [place], [address] Neutrophils/100 WBC (Bld) 78.0 % High 47-70 [facility] Comment on above: Performed By: #### L 100.0100, L500.2500 #### [facility] [address] [place], [address] Nucleated RBC (Bld) [#/Vol] 0 10*3/uL Normal 0-5 [facility] Comment on above: Performed By: #### L 100.0100, L500.2500 #### [facility] [address] [place], [address] Platelet mean volume (Bld) [Entitic vol] 9.0 fL Normal 6.2-12.0 [facility] Comment on above: Performed By: #### L 100.0100, L500.2500 #### [facility] [address] [place], [address] Platelets (Bld) [#/Vol] 201 10*3/uL Normal 150-450 [facility] Comment on above: Performed By: #### L 100.0100, L500.2500 #### [facility] [address] [place], [address] RBC (Bld) [#/Vol] 3.39 10*6/uL Low 4.6-6.2 [facility] Comment on above: Performed By: #### L 100.0100, L500.2500 #### [facility] [address] [place] [place], [address] RDW SD 50.1 fl High 35.1-43.9 [facility] Comment on above: Performed By: #### L 100.0100, L500.2500 #### [facility] [address] [place], [address] WBC (Bld) [#/Vol] 9.0 10*3/uL Normal 4.4-11.0 [facility] Comment on above: Performed By: #### L 100.0100, L500.2500 #### [facility] [address] [place], [address] Emergency Department Summary on 04-15-2024 Emergency Department Summary [facility] Medical Records Department [address] [place] [address] Emergency Department Summary 04/15/24 MR#: [id number] Acct: [id number] Name: CLINT VILLAR Rep #: [id number] : 1940 83 From: Fernando Hollins DO PCP: Dr. Cody Carrington MD Status:REG ER Location: ED HPI History of Present Illness Chief Complaint: Weakness Informant: patient, spouse/S.O. and EMS Narrative Narrative: 83-year-old male presenting to the emergency room for a fall. Patient recently underwent radiation therapy for prostate cancer. He states over the past week he has felt very fatigued. Today has not had much of an appetite. He is noting some urinary frequency some discomfort in the bilateral kidney area when he urinates. He notes no fever. He is not currently on anticoagulant because it was held for radiation therapy. Patient states he did not injure himself in the fall. believes he struck his head on the wall when he fell. No reported fevers. states he seemed very pale and out of bed during the event. He does not recall any chest pain palpitations preceding the event. He is not believe he lost consciousness. [facility] Medical History Prostate CA Erectile dysfunction Elevated PSA Atrial fibrillation CKD (chronic kidney disease) Obesity (BMI 30.0-34.9) Anxiety Hypothyroidism Hyperlipidemia BPH (benign prostatic hyperplasia) Hyperglycemia Hypertension Home Medications ???Medication ???Instructions ???Recorded ???Last Taken ???Type atorvastatin 40 mg tablet 40 mg PO QHS cholesterol 07/08/19 06/14/23 History losartan 100 mg tablet 100 mg PO QHS bp 07/08/19 06/15/23 History valacyclovir 500 mg tablet 500 mg PO DAILY herpes 07/03/20 06/15/23 History hydroxyzine HCl 25 mg tablet 25 mg PO QHS anxiety 06/16/23 06/15/23 History tamsulosin 0.4 mg capsule 0.4 mg PO BID prostate 06/16/23 06/14/23 History amlodipine 10 mg tablet 5 mg (1/2 x 10 mg) PO DAILY blood 06/17/23 06/15/23 Rx pressure #1 TAB metoprolol tartrate 50 mg tablet 50 mg PO BID #60 tabs 06/17/23 Unknown Rx finasteride 5 mg tablet 5 mg PO DAILY 09/22/23 Unknown History levothyroxine 112 mcg tablet 112 mcg PO DAILY 09/22/23 Unknown History (Synthroid) cefuroxime axetil 500 mg tablet 500 mg PO BID 7 days #14 tabs 04/15/24 Unknown Rx ondansetron 8 mg disintegrating 8 mg PO Q8H PRN PRN nausea/vomiting 04/15/24 Unknown History tablet Allergy/AdvReac Type Severity Reaction Status Date / Time No Known Allergies Allergy Unverified 09/23/23 10:49 Family History Other Hyperlipidemia Hypertension Thyroid disorder Surgical History History of shoulder surgery Social History household members: spouse housing: house Smoking Status: Former smoker alcohol intake: never substance use type: does not use ROS ROS ED ROS Narrative Generalized fatigue Constitutional Constitutional ED: Denies chills, fever(s) or weight loss Eyes Eyes: Denies change in vision or diplopia ENT ENT ED: Denies ear pain, rhinorrhea or sore throat Cardiovascular Cardiovascular: Denies chest pain, orthopnea, palpitations or racing heartbeat Respiratory/Chest Respiratory/Chest: Denies cough, dyspnea or orthopnea Gastrointestinal Gastrointestinal: Reports other Details: Decreased appetite ; Denies abdominal pain, diarrhea, nausea or vomiting Genitourinary Genitourinary ED: Reports urinary frequency; Denies dysuria or hematuria Musculoskeletal Musculoskeletal: Reports back pain; Denies arthralgias or myalgias Integumentary Denies abscess or rash Neurologic Neurologic: Denies headache(s) or weakness Psychiatric Psychiatric: Denies anxiety, depression, suicidal ideation or suicidal thoughts Endocrine Endocrinology: Denies polydipsia, polyphagia or polyuria Allergic/Immunologic Allergic/Immunologic ED: Denies mouth swelling, tongue swelling or urticaria EXAM Physical Exam Const Vital Signs: 04/15/24 18:39 04/15/24 18:45 04/15/24 20:13 Temperature 98.5 F Temperature Source Oral Pulse Rate 72 70 Respiratory Rate 19 H 17 Respiratory Effort Normal Non-Labored Respiratory Pattern Normal Blood Pressure 138/65 H 149/55 H Blood Pressure Mean 89 86 Pulse Ox 91 94 Oxygen Delivery Method Room Air Room Air 04/15/24 22:00 Temperature Temperature Source Pulse Rate 73 Respiratory Rate 16 Respiratory Effort Respiratory Pattern Blood Pressure 152/66 H Blood Pressure Mean 94 Pulse Ox 96 Oxygen Delivery Method Room Air Positive well nourished and well developed (more content not included)... Normal [facility] Urinalysis, Completeon 04-15 [facility] Normal None Seen [facility] Comment on above: Order Comment: CLEAN CATCH Performed By: #### L 500.2500, L100.0100 #### [facility] [address] [place], [address] EPI,RENAL 0-5 SEEN Normal 0-5 [facility] Comment on above: Order Comment: CLEAN CATCH Performed By: #### L 500.2500, L100.0100 #### [facility] [address] [place], [address] Mucus Ql (Urine sed) 1+ /hpf Normal [facility] Comment on above: Order Comment: CLEAN CATCH Performed By: #### L 500.2500, L100.0100 #### [facility] [address] [place], [address] RBC 5-10 SEEN Normal 0-5 [facility] Comment on above: Order Comment: CLEAN CATCH Performed By: #### L 500.2500, L100.0100 #### [facility] [address] [place], [address] WBC 50-100 SEEN Normal 0-5 [facility] Comment on above: Order Comment: CLEAN CATCH Performed By: #### L 500.2500, L100.0100 #### [facility] [address] [place], [address] EPI,SQUAMOUS 0 SEEN Normal 0-5 [facility] Comment on above: Order Comment: CLEAN CATCH Performed By: #### L 500.2500, L100.0100 #### [facility] [address] [place], [address] BLADDER SCANon 04-14-2024 PVR 92 ml [facility] CNOVon 04-14-2024 CNOV Office Visit (URCANT ) -- CLINT VILLAR ([id number]) 1940 M Date Time Provider Department 04/14/24 2:15 PM RADHA LARSEN URMARGARITA During your visit today, we recorded the following information about you: Radha Larsen MD 04/14/2024 2:47 PM Signed [facility] ESTABLISHED PATIENT NOTE PATIENT: Clint Villar (83 year old) PCP: Cody Carrington MD DATE OF SERVICE: 04/14/2024 -- SUMMARY: Mr. Villar is a 83 year old male who is here for follow up Assessment AND Plan Prostate cancer (HCC) Castrate sensitive metastatic prostate cancer On [facility] through oncology Currently XRT PSA 5.5 from 73.59 Recommend he continue with therapy as recommended by oncology Plan PSA in 3 months Orders: BLADDER SCAN PROSTATE-SPECIFIC ANTIGEN DIAGNOSTIC; Future Bilateral hydronephrosis Secondary to #1 Bilateral ureteral stents placed 03/08/[address] scan and bmp in 3 months to evaluate for stent removal or change Orders: BLADDER SCAN CT UROGRAM WO/W IVCON; Future iv contrast (will be provided with radiology test); CT Urogram WO/W Inject, intravenously, once for 1 dose.No IV access, insert saline lock prior to the beginning of sedation, infusion, injection of imaging exam. Discontinue saline lock post exam. If Pt. has a central line or IVAD, may access for administration according to line specific nursing protocol. Once exam is complete flush line and de-access according to line specific nursing protocol in the CT contrast administration guidelines link. 0.9 % sodium chloride (NACL 0.9%) infusion; Inject 5-30 mL/hr intravenously one time only for 1 dose. Administer at rate defined per CT contrast administration specifications. To be provided with radiology test. BASIC METABOLIC PANEL; Future Acute urinary retention Borrego out since this AM. Void here. PVR 93 cc. Okay to leave out Borrego Orders: BLADDER SCAN -- FOLLOW UP: No follow-ups on file. -- CHIEF COMPLAINT: Patient presents with: Prostate Cancer: 3 week follow up HISTORY OF PRESENT ILLNESS: Prior notes were reviewed. The patient reports: Complaint: prostate cancer Location: prostate Duration: months Quality: none Severity: severe Relieving: none Exacerbating: none Course: chronic Associated conditions: bilateral hydronephrosis, urinary retention Diagnostics: none Treatments: Borrego out for VT, stents in place REVIEW OF SYSTEMS: Genitourinary: Denies hematuria, dysuria, frequency, urgency, nocturia, [place], weak stream. Constitutional: unintentional weight loss - denies, fevers - denies Cardiovascular: new or worsening chest pain - denies Respiratory: new or worsening shortness of breath - denies Gastrointestinal: constipation - denies, vomiting - denies Hematologic/Lymphatic: easy bleeding or bruising - denies ALLERGIES: ALLERGIES Allergen Reactions Latex Rash Rash to skin MEDICATIONS: valACYclovir (VALTREX) 500 mg tablet Take 1 tablet by mouth once daily. (Patient taking differently: Take 500 mg by mouth once daily. HERPES, GENITAL) hydrOXYzine HCl (ATARAX) 25 mg tablet Take 1 tablet by mouth daily at bedtime. losartan (COZAAR) 100 mg tablet Take 1 tablet by mouth once daily. atorvastatin (LIPITOR) 40 mg tablet Take 1 tablet by mouth daily at bedtime. levothyroxine (SYNTHROID) 112 mcg tablet Take 1 tablet by mouth once daily. Take on empty stomach. For thyroid (Patient taking differently: Take 112 mcg by mouth daily before breakfast. Take on empty stomach. For thyroid) apixaban (ELIQUIS) 5 mg tab(s) Take 1 tablet by mouth two times a day. (Patient taking differently: Take 5 mg by mouth two times a day. LAST DOSE TONIGHT 03/03/[address] [facility], BUT HAS NOT SEEN THEM YET, DR CARRINGTON IS FOLLOWING AND AWARE THAT HE STOPPED) metoprolol tartrate, short acting, (LOPRESSOR) 50 mg tablet Take 1 tablet by mouth two times a day. amLODIPine (NORVASC) 5 mg tablet Take 1 tablet by mouth once daily. cyclobenzaprine (FLEXERIL) 10 mg tablet Take 1 tablet by mouth twice daily as needed for muscle spasm. ondansetron orally disintegrating (ZOFRAN ODT) 8 mg disintegrating tablet Take 1 tablet by mouth every 8 hours as needed for nausea/vomiting. bicalutamide (CASODEX) 50 mg tablet Take 1 tablet by mouth once daily. Take for 10 days starting when you get lupron injection (Patient not taking: Reported on 03/17/2024) tamsulosin (FLOMAX) 0.4 mg Take 2 capsules by mout (more content not included)... [facility] 04-14-2024 [facility] CLINT VILLAR ([id number]) 1940 M Date Time Provider Department 04/14/24 CODY CARRINGTON During your visit today, we recorded the following information about you: Clare Soriano 04/14/2024 11:06 AM Signed Patient was in for lab work for another provider today and stated that he had called and spoke to someone that told him he could do lab work for today at the same time. There are no order in for lab work from please advise on if patient needs lab work done for him prior to his scheduled appointment on 04/23/24. Please call patient with information at [phone] Cody Blankenship MD 04/14/2024 12:13 PM Signed No additional labs from nm this time. Danielle Aviles LPN 04/14/2024 12:18 PM Signed Spoke with pt and information listed below given. Pt verbalizes understanding. Danielle Aviles LPN Allergies As of Date: 04/14/2024 Noted Allergy Reaction LATEX 03/15/2024 2 - Rash Comments: Rash to skin Date Reviewed: 03/26/2024 Reviewed by: Radha Larsen MD - Fully Assessed Reason for Visit: Patient Question [5707] Prescriptions as of 04/14/2024 - ondansetron orally disintegrating (ZOFRAN ODT) 8 mg disintegrating tablet Take 1 tablet by mouth every 8 hours as needed for nausea/vomiting. - valACYclovir (VALTREX) 500 mg tablet Take 1 tablet by mouth once daily. - bicalutamide (CASODEX) 50 mg tablet Take 1 tablet by mouth once daily. Take for 10 days starting when you get lupron injection - hydrOXYzine HCl (ATARAX) 25 mg tablet Take 1 tablet by mouth daily at bedtime. - losartan (COZAAR) 100 mg tablet Take 1 tablet by mouth once daily. - atorvastatin (LIPITOR) 40 mg tablet Take 1 tablet by mouth daily at bedtime. - tamsulosin (FLOMAX) 0.4 mg Take 2 capsules by mouth daily at bedtime. - levothyroxine (SYNTHROID) 112 mcg tablet Take 1 tablet by mouth once daily. Take on empty stomach. For thyroid - apixaban (ELIQUIS) 5 mg tab(s) Take 1 tablet by mouth two times a day. - metoprolol tartrate, short acting, (LOPRESSOR) 50 mg tablet Take 1 tablet by mouth two times a day. - amLODIPine (NORVASC) 5 mg tablet Take 1 tablet by mouth once daily. - cyclobenzaprine (FLEXERIL) 10 mg tablet Take 1 tablet by mouth twice daily as needed for muscle spasm. 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] 03/08/2014 05/23/2015 Hypothyroidism [E03.9] 07/21/2014 Herpes infection [B00.9] 05/23/2015 Muscle spasm of back [M62.830] 05/23/2015 Impaired fasting glucose [R73.01] 12/19/2016 Obesity, Class I, BMI 30-34.9 [E66.811] 01/29/2019 06/02/2020 Obesity, Class II, BMI 35-39.9 [E66.812] 06/02/2020 10/25/2023 COVID-19 virus infection [U07.1] 07/03/2020 12/06/2020 Erectile dysfunction [N52.9] 06/21/2021 Urinary frequency [R35.0] 06/21/2021 Anemia [D64.9] 12/27/2021 Positive colorectal cancer screening using [place]*01/03/2023 02/26/2024 Elevated PSA [R97.20] 01/09/2023 New onset atrial fibrillation (HCC) [I48.91] 06/23/2023 10/21/2023 Obesity, Class I, BMI 30-34.9 [E66.811] 07/24/2023 Paroxysmal atrial fibrillation (HCC) [I48.0] 10/21/2023 At risk for stroke [Z91.89] 10/21/2023 Anticoagulant long-term use [Z79.01] 10/21/2023 Peripheral vascular disease, unspecified (HCC) *10/16/2023 Rectal mass [K62.89] 12/04/2023 02/26/2024 Prostate cancer (HCC) [C61] 02/13/2024 Obstructive uropathy [N13.9] 02/26/2024 Preop testing [Z01.818] 03/05/2024 Bilateral hydronephrosis [N13.30] 03/08/2024 Acute urinary retention [R33.8] 03/24/2024 Encounter Status:Closed by DANIELLE AVILES on 04/14/24 Normal [facility] PSA SerPl-mCncon 04-14-2024 Prostate specific Ag [Mass/Vol] 5.94 ng/mL High <2.60 [facility] Comment on above: Order Comment: Speci men Type: BLOOD SPECIMEN Ordering Facility: [facility] Address: [address] [place] [address] [place] [address] Result Comment: Tota l PSA test methodology used is the Electrochemiluminescence Immunoassay by [employer]. Total PSA values by differing methodologies cannot be interchanged. For an individual patient, the significance of a PSA level should be interpreted in a broad clinical context, including age, race, family history, digital rectal exam, prostate size, results of prior testing (prostate biopsy, free PSA, PCA3), and use of 5-alpha reductase inhibitors. Considering the high incidence of asymptomatic cancer in the general population that may not pose an ultimate risk to a patient, the decision to recommend urological evaluation or prostate biopsy should be individualized after consideration of all these factors. REFERENCE: Zeenat Plummer M.D., M.P.H., Ramirez Lance M.D., Ph.D., Adithya Owens M.D., Ariana Gabriel, M.P.H., Dee Rios, Sc.D. Effect of Verification Bias on Screening for Prostate Cancer by Measurement of Prostatic Specific Antigen. N Engl J Med 2003,349:335-42. Performed By: #### 2 4321-2 #### [facility] [id number] [address] [place] [address] [place] Basic metabolic 2000 panelon 04-13-2024 Anion gap [Moles/Vol] 7 mmol/L Normal 5-16 [facility] Comment on above: Order Comment: Speci men Type: BLOOD SPECIMENOrdering Facility: [facility] Address: [address] [place] [address] Performed By: #### 2 4321-2 ####[facility] [id number] [place] [address] [place] Calcium [Mass/Vol] 9.8 mg/dL Normal 8.5-10.5 [facility] Comment on above: Order Comment: Speci men Type: BLOOD SPECIMENOrdering Facility: [facility] Address: [address] [place] [address] Performed By: #### 2 4321-2 ####[facility] [id number] [place] [address] [place] Chloride [Moles/Vol] 102 mmol/L Normal 98-107 [facility] Comment on above: Order Comment: Celestinai men Type: BLOOD SPECIMENOrdering Facility: [facility] Address: [address] [place] [address] Performed By: #### 2 4321-2 ####[facility] [id number] [place] [id number] [place] CO2 [Moles/Vol] 28 mmol/L Normal 21-32 [facility] Comment on above: Order Comment: Speci men Type: BLOOD SPECIMENOrdering Facility: [facility] Address: [address] [place] [address] Performed By: #### 2 4321-2 ####[facility] [id number] [place] [address] [place] Creatinine [Mass/Vol] 1.39 mg/dL Normal 0.50-1.40 [facility] Comment on above: Order Comment: Speci men Type: BLOOD SPECIMENOrdering Facility: [facility] Address: [address] [place] [address] Result Comment: Mena ents receiving either N-Acetylcysteine (NAC) or Metamizole prior to venipuncture, may have falsely depressed results. Performed By: #### 2 4321-2 ####[facility] [id number] [place] [address] [place] Creatinine and Glomerular filtration rate.predicted panel (S/P/Bld) 51 mL/min/1.73m??? Low >=60 [facility] Comment on above: Order Comment: Franny sally Type: BLOOD SPECIMENOrdering Facility: [facility] Address: [address] [place] [address] Result Comment: Karin mated Glomerular Filtration Rate (eGFR) is calculated using the 2020 CKD-EPI creatinine equation. This equation utilizes serum creatinine, sex, and age as parameters. The creatinine assay has traceable calibration to isotope dilution-mass spectrometry. Refer to KDIGO guidelines for clinical interpretation. In patients with unstable renal function, e.g. those with acute kidney injury, the eGFR may not accurately reflect actual GFR. Performed By: #### 2 4321-2 ####[facility] [id number] [place] [id number] [place] Glucose [Mass/Vol] 95 mg/dL Normal 70-100 [facility] Comment on above: Order Comment: Speci men Type: BLOOD SPECIMENOrdering Facility: [facility] Address: [address] [place] [address] Result Comment: The [place] [employer] Association (ADA) provides guidance for cutoff values for fasting glucose and random glucose. The ADA defines fasting as no caloric intake for at least 8 hours. Fasting plasma glucose results between 100 to 125 mg/dL indicate increased risk for diabetes (prediabetes). Fasting plasma glucose results greater than or equal to 126 mg/dL meet the criteria for diagnosis of diabetes. In the absence of unequivocal hyperglycemia, results should be confirmed by repeat testing. In a patient with classic symptoms of hyperglycemia or hyperglycemic crisis, random plasma glucose results greater than or equal to 200 mg/dL meet the criteria for diagnosis of diabetes. Reference: Standards of Medical Care in Diabetes 2016, [place] [employer] Association. Diabetes Care. 2016.39(Suppl 1). Results may be falsely elevated after the administration of Sulfapyridine. Results may be falsely depressed after the administration of Sulfasalazine. Performed By: #### 2 4321-2 ####[facility] [id number] [place] [id number] [place] Potassium [Moles/Vol] 4.8 mmol/L Normal 3.5-5.1 [facility] Comment on above: Order Comment: Speci men Type: BLOOD SPECIMENOrdering Facility: [facility] Address: [address] [place] [address] Performed By: #### 2 4321-2 ####[facility] [id number] [place] [id number] [place] Sodium [Moles/Vol] 137 mmol/L Normal 136-145 [facility] Comment on above: Order Comment: Celestinai men Type: BLOOD SPECIMENOrdering Facility: [facility] Address: [address] [place] [id number] Performed By: #### 2 4321-2 ####[facility] [id number] [address] [place] [facility] Urea nitrogen [Mass/Vol] 34 mg/dL High 7-26 [facility] Comment on above: Order Comment: Speci men Type: BLOOD SPECIMENOrdering Facility: [facility] Address: [address] [place] [address] Performed By: #### 2 4321-2 ####[facility] [id number] [address] [place] PSA SerPl-ncon 04-13-2024 Prostate specific Ag [Mass/Vol] 5.50 ng/mL High <2.60 [facility] Comment on above: Order Comment: Speci men Type: BLOOD SPECIMENOrdering Facility: [facility] Address: [address] [place] [address] Result Comment: This is a new methodology for this marker. Tumor markers obtained from different assay methods cannot be used interchangeably. Expect results of this assay to run lower than the previous assay. It is recommended to re-baseline patients when changing to a new methodology. Performed By: #### 2 857-1 ####[facility] [id number] [address] [place] 04-05-2024 [facility] Telephone ([facility]) -- CLINT VILLAR ([id number]) 1940 M Date Time Provider Department 04/05/24 CODY CARRINGTON [facility] During your visit today, we recorded the following information about you: Conchita Boykin LPN 04/05/2024 1:43 PM Signed Patient is wanting to know if there is any other labs that he is needing for his upcoming appointment on 04/23/24. Please call patient back if there is more labs needed. RUBI Galarza Victor H, MD 04/06/2024 10:18 AM Signed No additional labs. Do labs ordered by urology. Leila Antonio LPN 04/06/2024 10:42 AM Signed Patient notified, verbalized understanding. Leila Antonio LPN Allergies As of Date: 04/05/2024 Noted Allergy Reaction LATEX 03/15/2024 2 - Rash Comments: Rash to skin Date Reviewed: 03/26/2024 Reviewed by: Radha Larsen MD - Fully Assessed Reason for Visit: Orders [681] Cmt: lab orders Prescriptions as of 04/06/2024 - ondansetron orally disintegrating (ZOFRAN ODT) 8 mg disintegrating tablet Take 1 tablet by mouth every 8 hours as needed for nausea/vomiting. - valACYclovir (VALTREX) 500 mg tablet Take 1 tablet by mouth once daily. - bicalutamide (CASODEX) 50 mg tablet Take 1 tablet by mouth once daily. Take for 10 days starting when you get lupron injection - hydrOXYzine HCl (ATARAX) 25 mg tablet Take 1 tablet by mouth daily at bedtime. - losartan (COZAAR) 100 mg tablet Take 1 tablet by mouth once daily. - atorvastatin (LIPITOR) 40 mg tablet Take 1 tablet by mouth daily at bedtime. - tamsulosin (FLOMAX) 0.4 mg Take 2 capsules by mouth daily at bedtime. - levothyroxine (SYNTHROID) 112 mcg tablet Take 1 tablet by mouth once daily. Take on empty stomach. For thyroid - apixaban (ELIQUIS) 5 mg tab(s) Take 1 tablet by mouth two times a day. - metoprolol tartrate, short acting, (LOPRESSOR) 50 mg tablet Take 1 tablet by mouth two times a day. - amLODIPine (NORVASC) 5 mg tablet Take 1 tablet by mouth once daily. - cyclobenzaprine (FLEXERIL) 10 mg tablet Take 1 tablet by mouth twice daily as needed for muscle spasm. 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] 03/08/2014 05/23/2015 Hypothyroidism [E03.9] 07/21/2014 Herpes infection [B00.9] 05/23/2015 Muscle spasm of back [M62.830] 05/23/2015 Impaired fasting glucose [R73.01] 12/19/2016 Obesity, Class I, BMI 30-34.9 [E66.811] 01/29/2019 06/02/2020 Obesity, Class II, BMI 35-39.9 [E66.812] 06/02/2020 10/25/2023 COVID-19 virus infection [U07.1] 07/03/2020 12/06/2020 Erectile dysfunction [N52.9] 06/21/2021 Urinary frequency [R35.0] 06/21/2021 Anemia [D64.9] 12/27/2021 Positive colorectal cancer screening using [place]*01/03/2023 02/26/2024 Elevated PSA [R97.20] 01/09/2023 New onset atrial fibrillation (HCC) [I48.91] 06/23/2023 10/21/2023 Obesity, Class I, BMI 30-34.9 [E66.811] 07/24/2023 Paroxysmal atrial fibrillation (HCC) [I48.0] 10/21/2023 At risk for stroke [Z91.89] 10/21/2023 Anticoagulant long-term use [Z79.01] 10/21/2023 Peripheral vascular disease, unspecified (HCC) *10/16/2023 Rectal mass [K62.89] 12/04/2023 02/26/2024 Prostate cancer (HCC) [C61] 02/13/2024 Obstructive uropathy [N13.9] 02/26/2024 Preop testing [Z01.818] 03/05/2024 Bilateral hydronephrosis [N13.30] 03/08/2024 Acute urinary retention [R33.8] 03/24/2024 Encounter Status:Closed by LEILA ANTONIO on 04/06/24 Normal [facility] BLADDER SCANon 03-26-2024 PVR 134 ml [facility] CNOVon 03-26-2024 CNOV Office Visit (URCANT ) -- CLINT VILLAR ([id number]) 1940 M Date Time Provider Department 03/26/24 2:00 PM RADHA LARSEN URCANT During your visit today, we recorded the following information about you: Radha Larsen MD 03/26/2024 2:06 PM Signed [facility] ESTABLISHED PATIENT NOTE PATIENT: Clint Villar (83 year old) PCP: Cody Carrington MD DATE OF SERVICE: 03/26/2024 -- SUMMARY: Mr. Villar is a 83 year old male who is here for follow up Assessment AND Plan Prostate cancer (HCC) Castrate sensitive metastatic prostate cancer On [place] through oncology Currently XRT Continue follow up with oncology Update PSA Orders: BLADDER SCAN PROSTATE-SPECIFIC ANTIGEN DIAGNOSTIC; Future Bilateral hydronephrosis Secondary to #1 Bilateral ureteral stents placed 03/08/2024 Plan check KUB and bmp Orders: BASIC METABOLIC PANEL; Future Acute urinary retention Borrego remove this AM Prostate with moderate trilobar enlargement and extremely rigid. Difficult cystoscopy. Has not yet voided (>6 hours); bladder scan 134 cc Patient concerned about ending up in ER Discussed findings. Patient elects to have Borrego re-insert. We'll try another voiding trial in 3 weeks. Orders: BLADDER 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-BORREGO -- FOLLOW UP: Return in about 3 weeks (around 04/16/2024) for CJL with labs. -- CHIEF COMPLAINT: Patient presents with: Hydronephrosis: Bilateral Urinary Retention: Voiding trial - cath pulled by patient at 8:30am. Patient has not voided at all. PVR 134 ml. HISTORY OF PRESENT ILLNESS: Prior notes were reviewed. The patient reports: Complaint: prostate cancer Location: prostate Duration: months Quality: none Severity: severe Relieving: none Exacerbating: none Course: chronic Associated conditions: bilateral hydronephrosis, urinary retention Diagnostics: none Treatments: Borrego in place, stents in place REVIEW OF SYSTEMS: Genitourinary: Unable to void Constitutional: unintentional weight loss - denies, fevers - denies Cardiovascular: new or worsening chest pain - denies Respiratory: new or worsening shortness of breath - denies Gastrointestinal: constipation - denies, vomiting - denies Hematologic/Lymphatic: easy bleeding or bruising - denies ALLERGIES: ALLERGIES Allergen Reactions Latex Rash Rash to skin MEDICATIONS: ondansetron orally disintegrating (ZOFRAN ODT) 8 mg disintegrating tablet Take 1 tablet by mouth every 8 hours as needed for nausea/vomiting. valACYclovir (VALTREX) 500 mg tablet Take 1 tablet by mouth once daily. (Patient taking differently: Take 500 mg by mouth once daily. HERPES, GENITAL) hydrOXYzine HCl (ATARAX) 25 mg tablet Take 1 tablet by mouth daily at bedtime. losartan (COZAAR) 100 mg tablet Take 1 tablet by mouth once daily. atorvastatin (LIPITOR) 40 mg tablet Take 1 tablet by mouth daily at bedtime. levothyroxine (SYNTHROID) 112 mcg tablet Take 1 tablet by mouth once daily. Take on empty stomach. For thyroid (Patient taking differently: Take 112 mcg by mouth daily before breakfast. Take on empty stomach. For thyroid) apixaban (ELIQUIS) 5 mg tab(s) Take 1 tablet by mouth two times a day. (Patient taking differently: Take 5 mg by mouth two times a day. LAST DOSE TONIGHT 03/03/[address] [facility], BUT HAS NOT SEEN THEM YET, DR CARRINGTON IS FOLLOWING AND AWARE THAT HE STOPPED) metoprolol tartrate, short acting, (LOPRESSOR) 50 mg tablet Take 1 tablet by mouth two times a day. amLODIPine (NORVASC) 5 mg tablet Take 1 tablet by mouth once daily. cyclobenzaprine (FLEXERIL) 10 mg tablet Take 1 tablet by mouth twice daily as needed for muscle spasm. bicalutamide (CASODEX) 50 mg tablet Take 1 tablet by mouth once daily. Take for 10 days starting when you get lupron injection (Patient not taking: Reported on 03/17/2024) tamsulosin (FLOMAX) 0.4 mg Take 2 capsules by mouth daily at bedtime. (Patient not taking: Reported on 03/26/2024) PAST HISTORY: PAST MEDICAL HISTORY Diagnosis Date Admitted for observation ADMITTED WITH NEW ONSET AFIB MAY 2023, MED AND SENT HOME TO FOLLOW UP WITH CARDIOLOGY 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 Anticoagulant long-term use 10/21/2023 PRIMARY FOLLOWS CURRENTLY, DUE TO SEE [facility] Arthritis At risk for stroke 10/21/2023 D/T AFIB Atrial fibrillation (HCC) COVID-19 virus infection 07/03/2020 Elevated PSA (more content not included)... 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 COURSE: palliative AREA TREATED: Retroperitoneal nodes CURRENT DOSE: 1800 cGy in 6 fx PLANNED DOSE: 3000 cGy in 10 fx SUBJECTIVE: He has nausea/vomiting. EXAM: KPS: 90 General Appearance: Alert and oriented. No acute distress. IMAGING/LAB RESULTS: None Treatment chart checked: Yes Patient treatment site reviewed and verified:Yes CBCTs reviewed and current:Yes Medications started: Zofran as needed. ASSESSMENT/PLAN: Clinically stable. Toxicity within expected parameters. Continue radiation treatment as planned. MD Scott Meza Debra, RN 03/17/2024 3:28 PM Signed Radiation Therapy - Nursing Note (OTV) PATIENT NAME: Clint Vilalr PATIENT March 17, 2024 [facility] FACILITY/LOCATION: [place] NURSING NOTE TYPE: retroperitoneal node Subjective Data Pt reports some nausea Additional Data Do you want to see a Substance Abuse Counselor? No Status: Patient is male Stress Scale: On a scale of 0 to 10, what number best describes how much distress you have experienced in the past week?(0 being no distress and 10 being extreme distress) 6 Social work notified: Pt denied need to see addiction social worker at this time. Nursing Assessment Fatigue: moderate; causing difficulty performing some activities Appetite: fair Nutritional Intake: Regular oral intake. Weight Gain/Loss: Yes Ambulatory weight history: Last 6 Encounter Wt Readings: Date: Wt: 03/01/2024 91 kg (200 lb 9.9 oz) 03/01/2024 90.3 kg (199 lb) 02/28/2024 89.4 kg (197 lb) 02/27/2024 90.5 kg (199 lb 8 oz) 02/26/2024 89.4 kg (197 lb 1.5 oz) 02/13/2024 91.6 kg (202 lb) Nausea:Nausea does not interfere with the ability to eat Vomitin episode in 24 hours Bowel Function: constipation 2 - bowel movement every 4 - 5 days Erythema/Hyperpigmentation :mild Desquamation:none Rash:none Skin Care: Aquaphor Skin Sensation: mild itching Focused Assessment Retroperitonal node-no other complaints SIGNED by: Anni Mcnair RN Allergies As of Date: 03/17/2024 Noted Allergy Reaction LATEX 03/15/2024 2 - Rash Comments: Rash to skin Date Reviewed: 03/17/2024 Reviewed by: Anni Mcnair RN - Fully Assessed Reason for Visit: Radiotherapy On-treatment Visit [1722] Primary Visit Diagnosis: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 - valACYclovir (VALTREX) 500 mg tablet Take 1 tablet by mouth once daily. - bicalutamide (CASODEX) 50 mg tablet Take 1 tablet by mouth once daily. Take for 10 days starting when you get lupron injection - hydrOXYzine HCl (ATARAX) 25 mg tablet Take 1 tablet by mouth daily at bedtime. - losartan (COZAAR) 100 mg tablet Take 1 tablet by mouth once daily. - atorvastatin (LIPITOR) 40 mg tablet Take 1 tablet by mouth daily at bedtime. - tamsulosin (FLOMAX) 0.4 mg Take 2 capsules by mouth daily at bedtime. - levothyroxine (SYNTHROID) 112 mcg tablet Take 1 tablet by mouth once daily. Take on empty stomach. For thyroid - apixaban (ELIQUIS) 5 mg tab(s) Take 1 tablet by mouth two times a day. - metoprolol tartrate, short acting, (LOPRESSOR) 50 mg tablet Take 1 tablet by mouth two times a day. - amLODIPine (NORVASC) 5 mg tablet Take 1 tablet by mouth once daily. - cyclobenzaprine (FLEXERIL) 10 mg tablet Take 1 tablet by mouth twice daily as needed for muscle spasm. 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 Normal [facility] CNOVon 03-15-2024 CNOV Office Visit (URCANT ) -- CLINT VILLAR ([id number]) 1940 M Date Time Provider Department 03/15/24 2:30 PM NURSE JAY JAY MEADE During your visit today, we recorded the following information about you: Italo Matthew RN 03/15/2024 2:58 PM Signed Patient here for voiding trial. Voided x8 at home and x2 in office. Pvr is 501 ml. New 16 omani silicone coude catheter inserted using sterile technique. 10 cc sterile water inflated into balloon. Good urine flow noted. New leg bag attached. Patient tolerated procedure well. Elementary Substitute Teacher declined. WOODY Escobedo Brooke, RN 03/15/2024 3:28 PM Signed Called patient and notified per [employer] Taryn roman for patient to pull own catheter (taught how to do this by this RN) in the morning of 03/26 and then to see Dr Larsen afternoon of 03/26 Italo Matthew RN Allergies As of Date: 03/15/2024 Noted Allergy Reaction LATEX 03/15/2024 2 - Rash Comments: Rash to skin Date Reviewed: 03/15/2024 Reviewed by: Italo Matthew RN - Fully Assessed Reason for Visit: Voiding Trial [410] Primary Visit Diagnosis:Bilateral hydronephrosis [N13.30] Prescriptions as of 03/15/2024 - valACYclovir (VALTREX) 500 mg tablet Take 1 tablet by mouth once daily. - bicalutamide (CASODEX) 50 mg tablet Take 1 tablet by mouth once daily. Take for 10 days starting when you get lupron injection - hydrOXYzine HCl (ATARAX) 25 mg tablet Take 1 tablet by mouth daily at bedtime. - losartan (COZAAR) 100 mg tablet Take 1 tablet by mouth once daily. - atorvastatin (LIPITOR) 40 mg tablet Take 1 tablet by mouth daily at bedtime. - tamsulosin (FLOMAX) 0.4 mg Take 2 capsules by mouth daily at bedtime. - levothyroxine (SYNTHROID) 112 mcg tablet Take 1 tablet by mouth once daily. Take on empty stomach. For thyroid - apixaban (ELIQUIS) 5 mg tab(s) Take 1 tablet by mouth two times a day. - metoprolol tartrate, short acting, (LOPRESSOR) 50 mg tablet Take 1 tablet by mouth two times a day. - amLODIPine (NORVASC) 5 mg tablet Take 1 tablet by mouth once daily. - cyclobenzaprine (FLEXERIL) 10 mg tablet Take 1 tablet by mouth twice daily as needed for muscle spasm. 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] 03/08/2014 05/23/2015 Hypothyroidism [E03.9] 07/21/2014 Herpes infection [B00.9] 05/23/2015 Muscle spasm of back [M62.830] 05/23/2015 Impaired fasting glucose [R73.01] 12/19/2016 Obesity, Class I, BMI 30-34.9 [E66.811] 01/29/2019 06/02/2020 Obesity, Class II, BMI 35-39.9 [E66.812] 06/02/2020 10/25/2023 COVID-19 virus infection [U07.1] 07/03/2020 12/06/2020 Erectile dysfunction [N52.9] 06/21/2021 Urinary frequency [R35.0] 06/21/2021 Anemia [D64.9] 12/27/2021 Positive colorectal cancer screening using [place]*01/03/2023 02/26/2024 Elevated PSA [R97.20] 01/09/2023 New onset atrial fibrillation (HCC) [I48.91] 06/23/2023 10/21/2023 Obesity, Class I, BMI 30-34.9 [E66.811] 07/24/2023 Paroxysmal atrial fibrillation (HCC) [I48.0] 10/21/2023 At risk for stroke [Z91.89] 10/21/2023 Anticoagulant long-term use [Z79.01] 10/21/2023 Peripheral vascular disease, unspecified (HCC) *10/16/2023 Rectal mass [K62.89] 12/04/2023 02/26/2024 Prostate cancer (HCC) [C61] 02/13/2024 Obstructive uropathy [N13.9] 02/26/2024 Preop testing [Z01.818] 03/05/2024 Bilateral hydronephrosis [N13.30] 03/08/2024 Visit Notes: >> Italo Matthew RN FriMar 15, 2024 2:51 PM Status: Signed Patient here for voiding trial. Voided x8 at home and x2 in office. Pvr is 501 ml. New 16 omani silicone coude catheter inserted using sterile technique. 10 cc sterile water inflated into balloon. Good urine flow noted. New leg bag attached. Patient tolerated procedure well. Elementary Substitute Teacher declined. Italo Matthew RN >> Italo Matthew RN FriMar 15, 2024 3:25 PM Status: Signed Called patient and notified per [employer] Taryn roman for patient to pull own catheter (taught how to do this by this RN) in the morning of 03/26 and then to see Dr Larsen of 03/26 Italo Matthew RN Encounter Status:Closed by ITALO MATTHEW on 03/15/24 [facility] CNOV Office Visit (URCANT ) -- CLINT VILLAR ([id number]) 1940 M Date Time Provider Department 03/15/24 8:00 AM NURSE JAY JAY MEADE During your visit today, we recorded the following information about you: Ama Hardin RN 03/15/2024 8:08 AM Signed Patient is in today for a catheter removal and later PVR. Balloon deflated and catheter removed intact without difficulty. Patient has no co pain or discomfort after removal. Patient instructed to continue drink plenty of fluids, bleeding and or burning can occur but should resolve over the next day. Patient is to RTO as scheduled for a PVR if able to urinate. If patient is unable to urinate, patient is to RTO before becoming too uncomfortable. Patient voiced understanding of all instructions. Elementary Substitute Teacher offered:Patient declines Ama Hardin RN Allergies As of Date: 03/15/2024 (No Known Allergies) Date Reviewed: 03/15/2024 Reviewed by: Ama Hardin RN - Fully Assessed Reason for Visit: Voiding Trial [410] Cmt: Cath removal Primary Visit Diagnosis:Bilateral hydronephrosis [N13.30] Order(s):VOIDING TRIAL PROTOCOL [[id number]] Order #: [id number] Prescriptions as of 03/15/2024 - valACYclovir (VALTREX) 500 mg tablet Take 1 tablet by mouth once daily. - bicalutamide (CASODEX) 50 mg tablet Take 1 tablet by mouth once daily. Take for 10 days starting when you get lupron injection - hydrOXYzine HCl (ATARAX) 25 mg tablet Take 1 tablet by mouth daily at bedtime. - losartan (COZAAR) 100 mg tablet Take 1 tablet by mouth once daily. - atorvastatin (LIPITOR) 40 mg tablet Take 1 tablet by mouth daily at bedtime. - tamsulosin (FLOMAX) 0.4 mg Take 2 capsules by mouth daily at bedtime. - levothyroxine (SYNTHROID) 112 mcg tablet Take 1 tablet by mouth once daily. Take on empty stomach. For thyroid - apixaban (ELIQUIS) 5 mg tab(s) Take 1 tablet by mouth two times a day. - metoprolol tartrate, short acting, (LOPRESSOR) 50 mg tablet Take 1 tablet by mouth two times a day. - amLODIPine (NORVASC) 5 mg tablet Take 1 tablet by mouth once daily. - cyclobenzaprine (FLEXERIL) 10 mg tablet Take 1 tablet by mouth twice daily as needed for muscle spasm. 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] 03/08/2014 05/23/2015 Hypothyroidism [E03.9] 07/21/2014 Herpes infection [B00.9] 05/23/2015 Muscle spasm of back [M62.830] 05/23/2015 Impaired fasting glucose [R73.01] 12/19/2016 Obesity, Class I, BMI 30-34.9 [E66.811] 01/29/2019 06/02/2020 Obesity, Class II, BMI 35-39.9 [E66.812] 06/02/2020 10/25/2023 COVID-19 virus infection [U07.1] 07/03/2020 12/06/2020 Erectile dysfunction [N52.9] 06/21/2021 Urinary frequency [R35.0] 06/21/2021 Anemia [D64.9] 12/27/2021 Positive colorectal cancer screening using [place]*01/03/2023 02/26/2024 Elevated PSA [R97.20] 01/09/2023 New onset atrial fibrillation (HCC) [I48.91] 06/23/2023 10/21/2023 Obesity, Class I, BMI 30-34.9 [E66.811] 07/24/2023 Paroxysmal atrial fibrillation (HCC) [I48.0] 10/21/2023 At risk for stroke [Z91.89] 10/21/2023 Anticoagulant long-term use [Z79.01] 10/21/2023 Peripheral vascular disease, unspecified (HCC) *10/16/2023 Rectal mass [K62.89] 12/04/2023 02/26/2024 Prostate cancer (HCC) [C61] 02/13/2024 Obstructive uropathy [N13.9] 02/26/2024 Preop testing [Z01.818] 03/05/2024 Bilateral hydronephrosis [N13.30] 03/08/2024 Encounter Status:Closed by AMA HARDIN on 03/15/24 [facility] 03-15-2024 [facility] ([facility] -- CLINT VILLAR ([id number]) 1940 M Date Time Provider Department 03/15/24 JACOB JENKINS URCANT During your visit today, we recorded the following information about you: Italo Matthew RN 03/15/2024 8:12 AM Signed Voiding trial pended Pvr > 250 ml = borrego reinsertion Thanks Italo Matthew RN Allergies As of Date: 03/15/2024 (No Known Allergies) Date Reviewed: 03/15/2024 Reviewed by: Ama Hardin RN - Fully Assessed Reason for Visit: Orders [681] Primary Visit Diagnosis:Bilateral hydronephrosis [N13.30] Order(s):VOIDING TRIAL PROTOCOL [[id number]] Order #: [id number] Prescriptions as of 03/15/2024 - valACYclovir (VALTREX) 500 mg tablet Take 1 tablet by mouth once daily. - bicalutamide (CASODEX) 50 mg tablet Take 1 tablet by mouth once daily. Take for 10 days starting when you get lupron injection - hydrOXYzine HCl (ATARAX) 25 mg tablet Take 1 tablet by mouth daily at bedtime. - losartan (COZAAR) 100 mg tablet Take 1 tablet by mouth once daily. - atorvastatin (LIPITOR) 40 mg tablet Take 1 tablet by mouth daily at bedtime. - tamsulosin (FLOMAX) 0.4 mg Take 2 capsules by mouth daily at bedtime. - levothyroxine (SYNTHROID) 112 mcg tablet Take 1 tablet by mouth once daily. Take on empty stomach. For thyroid - apixaban (ELIQUIS) 5 mg tab(s) Take 1 tablet by mouth two times a day. - metoprolol tartrate, short acting, (LOPRESSOR) 50 mg tablet Take 1 tablet by mouth two times a day. - amLODIPine (NORVASC) 5 mg tablet Take 1 tablet by mouth once daily. - cyclobenzaprine (FLEXERIL) 10 mg tablet Take 1 tablet by mouth twice daily as needed for muscle spasm. 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] 03/08/2014 05/23/2015 Hypothyroidism [E03.9] 07/21/2014 Herpes infection [B00.9] 05/23/2015 Muscle spasm of back [M62.830] 05/23/2015 Impaired fasting glucose [R73.01] 12/19/2016 Obesity, Class I, BMI 30-34.9 [E66.811] 01/29/2019 06/02/2020 Obesity, Class II, BMI 35-39.9 [E66.812] 06/02/2020 10/25/2023 COVID-19 virus infection [U07.1] 07/03/2020 12/06/2020 Erectile dysfunction [N52.9] 06/21/2021 Urinary frequency [R35.0] 06/21/2021 Anemia [D64.9] 12/27/2021 Positive colorectal cancer screening using [place]*01/03/2023 02/26/2024 Elevated PSA [R97.20] 01/09/2023 New onset atrial fibrillation (HCC) [I48.91] 06/23/2023 10/21/2023 Obesity, Class I, BMI 30-34.9 [E66.811] 07/24/2023 Paroxysmal atrial fibrillation (HCC) [I48.0] 10/21/2023 At risk for stroke [Z91.89] 10/21/2023 Anticoagulant long-term use [Z79.01] 10/21/2023 Peripheral vascular disease, unspecified (HCC) *10/16/2023 Rectal mass [K62.89] 12/04/2023 02/26/2024 Prostate cancer (HCC) [C61] 02/13/2024 Obstructive uropathy [N13.9] 02/26/2024 Preop testing [Z01.818] 03/05/2024 Bilateral hydronephrosis [N13.30] 03/08/2024 Encounter Status:Closed by JACOB JENKINS on 03/15/24 [facility] Tray 03-10-2024 [facility] Telephone ([facility]) -- CLINT VILLAR ([id number]) 1940 M Date Time Provider Department 03/10/24 RADHA LARSEN During your visit today, we recorded the following information about you: Krys Hauser RN 03/10/2024 2:32 PM Signed Received VM from patient following up on a VT. He had a Borrego placed after surgery on Friday with Dr. Larsen. Spoke with Dr. Larsen and he wants a VT. Replace Borrego with PVR greater than 500. Patient is still having blood in his urine. Will schedule patient on 03/15 for a VT. Patient was notified and voiced understanding. Krys Hauser RN Allergies As of Date: 03/10/2024 (No Known Allergies) Date Reviewed: 03/09/2024 Reviewed by: Lise Dillon RN - Fully Assessed Reason for Visit: Appointment [186] Prescriptions as of 03/10/2024 - valACYclovir (VALTREX) 500 mg tablet Take 1 tablet by mouth once daily. - bicalutamide (CASODEX) 50 mg tablet Take 1 tablet by mouth once daily. Take for 10 days starting when you get lupron injection - hydrOXYzine HCl (ATARAX) 25 mg tablet Take 1 tablet by mouth daily at bedtime. - losartan (COZAAR) 100 mg tablet Take 1 tablet by mouth once daily. - atorvastatin (LIPITOR) 40 mg tablet Take 1 tablet by mouth daily at bedtime. - tamsulosin (FLOMAX) 0.4 mg Take 2 capsules by mouth daily at bedtime. - levothyroxine (SYNTHROID) 112 mcg tablet Take 1 tablet by mouth once daily. Take on empty stomach. For thyroid - apixaban (ELIQUIS) 5 mg tab(s) Take 1 tablet by mouth two times a day. - metoprolol tartrate, short acting, (LOPRESSOR) 50 mg tablet Take 1 tablet by mouth two times a day. - amLODIPine (NORVASC) 5 mg tablet Take 1 tablet by mouth once daily. - cyclobenzaprine (FLEXERIL) 10 mg tablet Take 1 tablet by mouth twice daily as needed for muscle spasm. 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] 03/08/2014 05/23/2015 Hypothyroidism [E03.9] 07/21/2014 Herpes infection [B00.9] 05/23/2015 Muscle spasm of back [M62.830] 05/23/2015 Impaired fasting glucose [R73.01] 12/19/2016 Obesity, Class I, BMI 30-34.9 [E66.811] 01/29/2019 06/02/2020 Obesity, Class II, BMI 35-39.9 [E66.812] 06/02/2020 10/25/2023 COVID-19 virus infection [U07.1] 07/03/2020 12/06/2020 Erectile dysfunction [N52.9] 06/21/2021 Urinary frequency [R35.0] 06/21/2021 Anemia [D64.9] 12/27/2021 Positive colorectal cancer screening using [place]*01/03/2023 02/26/2024 Elevated PSA [R97.20] 01/09/2023 New onset atrial fibrillation (HCC) [I48.91] 06/23/2023 10/21/2023 Obesity, Class I, BMI 30-34.9 [E66.811] 07/24/2023 Paroxysmal atrial fibrillation (HCC) [I48.0] 10/21/2023 At risk for stroke [Z91.89] 10/21/2023 Anticoagulant long-term use [Z79.01] 10/21/2023 Peripheral vascular disease, unspecified (HCC) *10/16/2023 Rectal mass [K62.89] 12/04/2023 02/26/2024 Prostate cancer (HCC) [C61] 02/13/2024 Obstructive uropathy [N13.9] 02/26/2024 Preop testing [Z01.818] 03/05/2024 Bilateral hydronephrosis [N13.30] 03/08/2024 Encounter Status:Closed by KRYS HAUSER on 03/10/24 [facility] 03-09-2024 CNOV Office Visit (RADTWS ) -- CLINT VILLAR ([id number]) 1940 M Date Time Provider Department 03/09/24 1:15 PM RODOLFO AGUILAR During your visit today, we recorded the following information about you: Temperature Pulse Blood pressure 98 degrees 50/minute 141/65 Lise Dillon RN 03/09/2024 1:26 PM Signed Radiation Therapy - Nursing Note (OTV) PATIENT NAME: Clint Villar PATIENT March 09, 2024 [facility] FACILITY/LOCATION: [facility] NOTE TYPE: GENERAL Subjective Data no complaints concerning radiation, had bilateral ureteral stent put in yesterday and now has a borrego cath in for a few day was unable to void post proceedure Additional Data Do you want to see a Substance Abuse Counselor? No Status: Patient is male Stress Scale: On a scale of 0 to 10, what number best describes how much distress you have experienced in the past week?(0 being no distress and 10 being extreme distress) 2 Social work notified: Pt denied need to see addiction social worker at this time. Nursing Assessment Fatigue: none Appetite: good but no so good since yesterdays proceedure Nutritional Intake: Regular oral intake. Weight Gain/Loss: Not applicable Ambulatory weight history: Last 6 Encounter Wt Readings: Date: Wt: 03/01/2024 91 kg (200 lb 9.9 oz) 03/01/2024 90.3 kg (199 lb) 02/28/2024 89.4 kg (197 lb) 02/27/2024 90.5 kg (199 lb 8 oz) 02/26/2024 89.4 kg (197 lb 1.5 oz) 02/13/2024 91.6 kg (202 lb) Nausea:None Vomiting: None Bowel Function: normal bowel movements Erythema/Hyperpigmentation :none Desquamation:none Rash:none Skin Care: Aquaphor Skin Sensation: Within Normal Limits Focused Assessment ABDOMEN: Rectal bleeding: No. Rectal pain: No. Urinary frequency (D/N): borrego/borrego. Dysuria: No. 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 COURSE: palliative AREA TREATED: Retroperitoneal nodes CURRENT DOSE: 300 cGy in 1 fx PLANNED DOSE: 3000 cGy in 10 fx SUBJECTIVE: He is doing well without any specific new complaints related to radiation treatment. EXAM: KPS: 90 General Appearance: Alert and oriented. No acute distress. IMAGING/LAB RESULTS: None Treatment chart checked: Yes Patient treatment site reviewed and verified:Yes CBCTs reviewed and current:Yes Medications started: None ASSESSMENT/PLAN: Clinically stable. No signs of toxicity. Continue radiation treatment as planned. 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 - bicalutamide (CASODEX) 50 mg tablet Take 1 tablet by mouth once daily. Take for 10 days starting when you get lupron injection - hydrOXYzine HCl (ATARAX) 25 mg tablet Take 1 tablet by mouth daily at bedtime. - losartan (COZAAR) 100 mg tablet Take 1 tablet by mouth once daily. - atorvastatin (LIPITOR) 40 mg tablet Take 1 tablet by mouth daily at bedtime. - tamsulosin (FLOMAX) 0.4 mg Take 2 capsules by mouth daily at bedtime. - levothyroxine (SYNTHROID) 112 mcg tablet Take 1 tablet by mouth once daily. Take on empty stomach. For thyroid - apixaban (ELIQUIS) 5 mg tab(s) Take 1 tablet by mouth two times a day. - metoprolol tartrate, short acting, (LOPRESSOR) 50 mg tablet Take 1 tablet by mouth two times a day. - amLODIPine (NORVASC) 5 mg tablet Take 1 tablet by mouth once daily. - cyclobenzaprine (FLEXERIL) 10 mg tablet Take 1 tablet by mouth twice daily as needed for muscle spasm. 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] 03/08/2014 05/23/2015 Hypothyroidism [E03.9] 07/21/2014 Herpes infection [B00.9] 05/23/2015 Muscle spasm of back [M62.830] 05/23/2015 Impaired fasting glucose [R73.01] 12/19/2016 Obesity, Class I, BMI 30-34.9 [E66.811] 01/29/2019 06/02/2020 Obesity, Class II, BMI 35-39.9 [E66.812] 06/02/2020 10/25/2023 COVID-19 virus infection [U07.1] 07/03/2020 12/06/2020 Erectile dysfunction [N52.9] 06/21/2021 Urinary frequency [R35.0] 06/21/2021 Anemia [D64.9] 12/27/2021 Positive colorectal cancer screening using [place]*01/03/2023 02/26/2024 Elevated PSA [R97.20] 01/09/2023 New onset atrial fibrillation (HCC) [I48.91] 06/23/2023 (more content not included)... Normal [facility] [id number] 03-08-2024 [id number] HNO ID: [id number] Author: SABRINA MENDOZA RN Service: ? Author Type: Registered Nurse Type: [id number] Filed: 03/08/2024 13:30 Note Text: Follow up in one week with Dr Larsen's nurse for borrego catheter removal [facility] ANES POSTPROC EVALon 024 ANES POSTPROC EVAL HNO ID: [id number] Author: SHELTON RIVERO DO Service: Anesthesiology Author Type: Anesthesiologist Type: Anesthesia Postprocedure Evaluation Filed: 03/08/2024 10:11 Note Text: POST ANESTHESIA EVALUATION NOTE : 1940 Procedure Summary Date: 03/08/24 Room / Location: OR 07 / OR Anesthesia Start: 844 Anesthesia Stop: 930 Procedures: CYSTOSCOPY, RETROPYELOGRAM INSERTION STENT URETERAL (Bilateral) Diagnosis: Prostate cancer (HCC) Hydronephrosis, unspecified hydronephrosis type HERMES (acute kidney injury) (HCC) (Prostate cancer (HCC) [C61]) (Hydronephrosis, unspecified hydronephrosis type [N13.30]) (HERMES (acute kidney injury) (HCC) [N17.9]) Surgeons: Radha Laresn MD Responsible Provider: Shelton Rivero DO Anesthesia Type: general ASA Status: 3 Anesthesia Type: general Airway Type: LMA Last Vitals Vitals Value Taken Time BP 168/66 03/08/24 1000 Temp 36.6 ?C (97.8 ?F) 03/08/24 0928 Pulse 54 03/08/24 1009 Resp 16 03/08/24 1000 SpO2 96 % 03/08/24 1009 Vitals shown include unfiled device data. Post Anesthesia Patient Status Patient Evaluation: PACU. PACU/ICU Patient Condition: stable. Anticipated Disposition: phase 2 then home. Neurological Status: aware and responsive. Pulmonary Status: breathing comfortably on room air Airway Control: returned to baseline unsupported. Cardiovascular Status: stable. Pain Management: clinically adequate Postoperative Hydration: acceptable. Intraoperative Events: no significant anesthesia events Post Operative Nausea/Vomiting Status: no significant post operative nausea or vomiting Recommendation: further care per PACU/ICU/floor team. Anesthesia Observations No Documentation SIGNATURE: Shelton Rivero DO PATIENT NAME: Clint Villar DATE: March 08, 2024 TIME: 10:11 AM CSN: [id number] [facility] ANES PRE-OPon 03-08-2024 ANES PRE-OP HNO ID: [id number] Author: SHELTON RIVERO DO Service: Anesthesiology Author Type: Anesthesiologist Type: Anesthesia Preprocedure Evaluation Filed: 03/08/2024 08:19 Note Text: ANESTHESIOLOGY DAY OF SURGERY NOTE : 1940 Procedure Information Date/Time: 03/08/24 0910 Procedures: CYSTOSCOPY, RETROPYELOGRAM INSERTION STENT URETERAL (Bilateral) Location: MR OR 07 / MR OR Surgeons: Radha Larsen MD Estimated body mass index is 32.38 kg/m? as calculated from the following: Height as of this encounter: 167.6 cm (5' 6). Weight as of this encounter: 91 kg (200 lb 9.9 oz). Most recent hematocrit and potassium results: Hematocrit 38.6 02/28/2024 Potassium 4.8 02/28/2024 Relevant Problems CARDIO (+) HTN (hypertension) (+) Paroxysmal atrial fibrillation (HCC) ENDO (+) Hypothyroidism I - PHYSICAL EVALUATION AIRWAY Patient intubated: No. Tracheostomy tube not present Mallampati: II. TM distance: >3 FB. Neck ROM: full ROM without neurological symptoms. Mouth opening: adequate. Short neck: no. Thick neck: no II - ANESTHESIA PLAN ASA Score: 3 Anesthetic Plan: general Airway type: LMA NPO Status: adequate Beta Mague Monitoring Plan Monitoring plan: standard ASA. Post Procedure Analgesic Plan Postoperative analgesic plan: multimodal analgesia. Informed Consent Anesthetic risks, benefits, alternatives, personnel and consent discussed: yes. Patient / Responsible Libertarian agrees to proceed: yes Patient / Surrogate agrees to blood products: Yes Vitals Value Taken Time BP 172/73 03/08/24 0802 Pulse 50 03/08/24 0801 Resp 16 03/08/24 0800 Temp 36.3 ?C (97.3 ?F) 03/08/24 0800 SpO2 97 % 03/08/24 0801 Vitals shown include unfiled device data. Facility-Administered Medications as of 03/08/2024 Medication Dose Route Frequency lidocaine (PF) 10 mg/mL (1 %) 1-2 mg injection (XYLOCAINE) 0.1-0.2 mL INTRADERMAL PRN NaCl 0.9% iv flush bag 20 mL INTRAVENOUS PRN ceFAZolin iv piggyback 2 g in D5W (iso-osmotic) 100 mL (ANCEF) 2 g INTRAVENOUS Pre-Op Once Outpatient Medications as of 03/08/2024 Medication Sig valACYclovir (VALTREX) 500 mg tablet Take 1 tablet by mouth once daily. (Patient taking differently: Take 500 mg by mouth once daily. HERPES, GENITAL) bicalutamide (CASODEX) 50 mg tablet Take 1 tablet by mouth once daily. Take for 10 days starting when you get lupron injection (Patient taking differently: Take 50 mg by mouth once daily. Take for 10 days starting when you get lupron injection, 3 DAYS LEFT 03/04/24 CLK) hydrOXYzine HCl (ATARAX) 25 mg tablet Take 1 tablet by mouth daily at bedtime. losartan (COZAAR) 100 mg tablet Take 1 tablet by mouth once daily. atorvastatin (LIPITOR) 40 mg tablet Take 1 tablet by mouth daily at bedtime. tamsulosin (FLOMAX) 0.4 mg Take 2 capsules by mouth daily at bedtime. levothyroxine (SYNTHROID) 112 mcg tablet Take 1 tablet by mouth once daily. Take on empty stomach. For thyroid (Patient taking differently: Take 112 mcg by mouth daily before breakfast. Take on empty stomach. For thyroid) finasteride (PROSCAR) 5 mg tablet Take 1 tablet by mouth once daily apixaban (ELIQUIS) 5 mg tab(s) Take 1 tablet by mouth two times a day. (Patient taking differently: Take 5 mg by mouth two times a day. LAST DOSE TONIGHT 03/03/[address] LARSEN AND [facility], BUT HAS NOT SEEN THEM YET, DR CARRINGTON IS FOLLOWING AND AWARE THAT HE STOPPED) metoprolol tartrate, short acting, (LOPRESSOR) 50 mg tablet Take 1 tablet by mouth two times a day. amLODIPine (NORVASC) 5 mg tablet Take 1 tablet by mouth once daily. cyclobenzaprine (FLEXERIL) 10 mg tablet Take 1 tablet by mouth twice daily as needed for muscle spasm. I have interviewed and examined the patient. I have reviewed the medical record and/or the pre-anesthesia evaluation, pertinent labs, and test results. This contains updated information obtained within 48 hours of Surgery/Procedure. SIGNATURE: Shelton Rivero DO PATIENT NAME: Clint Villar DATE: March 08, 2024 TIME: 8:19 AM CSN: [id number] [facility]20[facility] CLINT VILLAR ([id number]) 1940 M Date Time Provider Department 03/08/24 RADHA LARSEN During your visit today, we recorded the following information about you: Radha Larsen MD 03/08/2024 9:36 AM Signed Surgery today Follow up with [facility] 3 weeks with KUB, psa, and bmp Coral Lindsey 03/08/2024 11:01 AM Signed Patient scheduled, will notify upon discharge. Allergies As of Date: 03/08/2024 (No Known Allergies) Date Reviewed: 03/08/2024 Reviewed by: Dayan Estrella RN - Fully Assessed Reason for Visit: Orders [681] Follow Up [171] Primary Visit Diagnosis:Bilateral hydronephrosis [N13.30] Other Visit Diagnoses:Ureteral stent present [Z96.0] Prostate cancer (HCC) [C61] Order(s):PROSTATE-SPECIFIC ANTIGEN DIAGNOSTIC [SQPSA] Order #: [id number] FUTURE BASIC METABOLIC PANEL [SQBMP] Order #: [id number] FUTURE XR ABDOMEN 1V SUPINE [[id number]] Order #: [id number] FUTURE Prescriptions as of 03/08/2024 - valACYclovir (VALTREX) 500 mg tablet Take 1 tablet by mouth once daily. - bicalutamide (CASODEX) 50 mg tablet Take 1 tablet by mouth once daily. Take for 10 days starting when you get lupron injection - hydrOXYzine HCl (ATARAX) 25 mg tablet Take 1 tablet by mouth daily at bedtime. - losartan (COZAAR) 100 mg tablet Take 1 tablet by mouth once daily. - atorvastatin (LIPITOR) 40 mg tablet Take 1 tablet by mouth daily at bedtime. - tamsulosin (FLOMAX) 0.4 mg Take 2 capsules by mouth daily at bedtime. - levothyroxine (SYNTHROID) 112 mcg tablet Take 1 tablet by mouth once daily. Take on empty stomach. For thyroid - apixaban (ELIQUIS) 5 mg tab(s) Take 1 tablet by mouth two times a day. - metoprolol tartrate, short acting, (LOPRESSOR) 50 mg tablet Take 1 tablet by mouth two times a day. - amLODIPine (NORVASC) 5 mg tablet Take 1 tablet by mouth once daily. - cyclobenzaprine (FLEXERIL) 10 mg tablet Take 1 tablet by mouth twice daily as needed for muscle spasm. Facility-Administered Medications as of 03/08/2024 - lidocaine (PF) 10 mg/mL (1 %) 1-2 mg injection (XYLOCAINE) - NaCl 0.9% iv flush bag - lactated ringers iv infusion - meperidine (PF) 12.5 mg injection (DEMEROL) - prochlorperazine 10 mg injection (COMPAZINE) - ondansetron 4 mg tab(s) (ZOFRAN) - ondansetron (PF) 4 mg injection (ZOFRAN) Problem List As Of Date 03/08/2024 Noted Resolved Allergic contact dermatitis due to multiple age*03/08/2014 HTN (hypertension) [I10] 03/08/2014 Hyperlipidemia [E78.5] 03/08/2014 Recurrent cold sores [B00.1] 03/08/2014 05/23/2015 Hypothyroidism [E03.9] 07/21/2014 Herpes infection [B00.9] 05/23/2015 Muscle spasm of back [M62.830] 05/23/2015 Impaired fasting glucose [R73.01] 12/19/2016 Obesity, Class I, BMI 30-34.9 [E66.811] 01/29/2019 06/02/2020 Obesity, Class II, BMI 35-39.9 [E66.812] 06/02/2020 10/25/2023 COVID-19 virus infection [U07.1] 07/03/2020 12/06/2020 Erectile dysfunction [N52.9] 06/21/2021 Urinary frequency [R35.0] 06/21/2021 Anemia [D64.9] 12/27/2021 Positive colorectal cancer screening using [place]*01/03/2023 02/26/2024 Elevated PSA [R97.20] 01/09/2023 New onset atrial fibrillation (HCC) [I48.91] 06/23/2023 10/21/2023 Obesity, Class I, BMI 30-34.9 [E66.811] 07/24/2023 Paroxysmal atrial fibrillation (HCC) [I48.0] 10/21/2023 At risk for stroke [Z91.89] 10/21/2023 Anticoagulant long-term use [Z79.01] 10/21/2023 Peripheral vascular disease, unspecified (HCC) *10/16/2023 Rectal mass [K62.89] 12/04/2023 02/26/2024 Prostate cancer (HCC) [C61] 02/13/2024 Obstructive uropathy [N13.9] 02/26/2024 Preop testing [Z01.818] 03/05/2024 Bilateral hydronephrosis [N13.30] 03/08/2024 Encounter Status:Closed by RADHA LARSEN on 03/08/24 [facility] HISTORY PHYSICALon HISTORY PHYSICAL HNO ID: [id number] Author: RADHA LARSEN MD Service: Urology Author Type: Physician Type: H&P Filed: 03/08/2024 08:29 Note Text: [facility] SURGICAL HISTORY AND PHYSICAL EXAMINATION NOTE SERVICE DATE: March 08, 2024 PRIMARY CARE PHYSICIAN: Cody Carrington MD ASSESSMENT: Active Hospital Problems Diagnosis Date Noted Bilateral hydronephrosis 03/08/2024 Chronic PLAN: Procedure(s): CYSTOSCOPY, RETROPYELOGRAM (N/A) INSERTION STENT URETERAL (Bilateral) CHIEF COMPLAINT: Active Hospital Problems Diagnosis Date Noted Bilateral hydronephrosis 03/08/2024 Chronic Subjective Mr. Villar is a 83 year old male who presents with the above complaint for planned surgery. Patient states no changes to medical history since our last visit. We discussed the planned procedure. Risks, benefits, and alternatives of the procedure were discussed. Patient acknowledges understanding and consents to proceed. 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 HTN (hypertension) 03/08/2014 PRIMARY FOLLOWS Hyperglycemia DIET CONTROLLED PRIMARY FOLLOWS Hyperlipidemia 03/08/2014 Hyperlipidemia, unspecified hyperlipidemia type PRIMARY FOLLOWS Hypotension, unspecified Hypothyroidism 07/21/2014 PRIMARY FOLLOWS Impaired fasting glucose 12/19/2016 DOES NOT REMEMBER Muscle spasm of back 05/23/2015 Obesity, Class I, BMI 30-34.9 01/29/2019 Obesity, Class II, BMI 35-39.9 06/02/2020 Paroxysmal atrial fibrillation (HCC) 06/23/2023 DUE TO SEE [facility] FOR AFIB, PRIMARY FOLLOWS CURRENTLY, DID SEE [facility] ACOSTA X1 APPOINTMENT BUT DID NOT CARE FOR MD SO WILL NOT GO BACK Positive colorectal cancer screening using Cologuard test 01/03/2023 Primary hypertension PRIMARY FOLLOWS Prostate cancer (HCC) 02/13/[address] DR LARS[address] DR AGUILAR, AT [facility] IN [place] 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 PAST SURGICAL HISTORY Procedure Laterality Date COLONOSCOPY - DIAGNOSTIC 12/18/2023 OPEN REPAIR OF ROTATOR CUFF ACUTE Right 2005 Rotator cuff repair, right PROSTATE BIOPSY W/TRANSRECTAL US 01/26/2024 TONSILLECTOMY PRIMARY/SECONDARY Tonsillectomy FAMILY HISTORY Problem Relation Age of Onset other (Other) Mother no contact Coronary Artery Disease Father Heart Failure Father Diabetes Father Cancer Paternal Grandfather Cancer Half-brother Social History Tobacco Use Smoking status: Former Types: Cigarettes Passive exposure: Past Smokeless tobacco: Never Tobacco comments: Pt smoked 1 pack daily x 14 years, quit in 1964 Vaping Use Vaping status: Never Used Substance Use Topics Alcohol use: Not Currently Alcohol/week: 1.0 standard drink of alcohol Types: 1 Cans of beer per week Drug use: Never valACYclovir (VALTREX) 500 mg tablet, Take 1 tablet by mouth once daily. (Patient taking differently: Take 500 mg by mouth once daily. HERPES, GENITAL), Disp: 90 tablet, Rfl: 3 bicalutamide (CASODEX) 50 mg tablet, Take 1 tablet by mouth once daily. Take for 10 days starting when you get lupron injection (Patient taking differently: Take 50 mg by mouth once daily. Take for 10 days starting when you get lupron injection, 3 DAYS LEFT 03/04/24 CLK), Disp: 10 tablet, Rfl: 0 hydrOXYzine HCl (ATARAX) 25 mg tablet, Take 1 tablet by mouth daily at bedtime., Disp: 90 tablet, Rfl: 3 losartan (COZAAR) 100 mg tablet, Take 1 tablet by mouth once daily., Disp: 90 tablet, Rfl: 3 atorvastatin (LIPITOR) 40 mg tablet, Take 1 tablet by mouth daily at bedtime., Disp: 90 tablet, Rfl: 3 tamsulosin (FLOMAX) 0.4 mg, Take 2 capsules by mouth daily at bedtime., Disp: 180 capsule, Rfl: 3, 03/08/2024 at 0530 levothyroxine (SYNTHROID) 112 mcg tablet, Take 1 tablet by mouth once daily. Take on empty stomach. For thyroid (Patient taking differently: Take 112 mcg by mouth daily before breakfast. Take on empty stomach. For thyroid), Disp: 90 tablet, Rfl: 3 finasteride (PROSCAR) 5 mg tablet, Take 1 tablet by mouth once daily, Disp: 90 tablet, Rfl: 0 apixaban (ELIQUIS) 5 mg tab(s), Take 1 tablet by mouth two times a day. (Patient taking differently: Take 5 mg by mouth two times a day. LAST DOSE TONIGHT 03/03/[address] LARSEN AND [facility], BUT HAS NOT SEEN THEM YET, DR CARRINGTON IS FOLLOWING AND AWARE THAT HE STOPPED), Disp: 120 table (more content not included)... [facility] NURSING PROGon 03-08-2024 NURSING PROG HNO ID: [id number] Author: DEE PEREZ RN Service: Nursing Author Type: Registered Nurse Type: Nursing Progress Note Filed: 03/08/2024 13:43 Note Text: Borrego catheter inserted per order with # 18 Fr coude catheter. Inserted without complication. Bloody urine noted in tubing [facility] OPERATIVE NOon 03-08-2024 OPERATIVE NO HNO ID: [id number] Author: RADHA LARSEN MD Service: Urology Author Type: Physician Type: Operative Report Filed: 03/08/2024 09:34 Note Text: [facility] OPERATIVE NOTE/REPORT DETAIL NAME: Clint Villar Surgery/Procedure Date: 03/08/2024 Procedure(s): Cystoscopy, right retrograde pyelograms, bilateral ureteral stent insertion Pre-Op/Pre-Procedure Diagnosis: Bilateral hydronephrosis, prostate cancer Post-Op/Post-Procedure Diagnosis: same Surgeon(s)/Proceduralist(s ) and Senior Quantity Surveyor(s): Surgeons and Role: * Radha Larsen MD - Primary Operative Indications: Clint Villar is a 83 year old male with bilateral hydronephrosis due to malignant obstruction of his ureters. Procedure with risks, benefits and alternatives were reviewed with patient. All questions answered. Patient/guardian gives informed consent to proceed with procedure. Findings: Normal urethra. Prostate with moderate trilobar enlargement and extremely rigid. Difficult cystoscopy. Bladder surveyed entirely. No stones noted. No mucosal lesions. There was nodularity of the bladder neck and trigone area. Bilateral ureteral orifices were nearly completely effaced and the locations were distorted by the nodularity. Moderate bladder trabeculation. Normal bladder volume. Pyelograms on the right reveals hydronephrosis, a tortuous ureter, and nodularity. Pyelograms on left not performed. Difficult and complicated wire placement bilaterally. Successful but difficult bilateral ureteral stent insertion. Anesthesia: General Estimated Blood Loss: zero cc Specimens: none Drains: Bilateral 6x26 Cook black double J ureteral stent Complications: None immediate Procedure Narrative: The patient was seen and examined in the pre-operative area. A surgical check in was performed per protocol. The patient was taken back to the operative suite. Anesthesia was administered. The patient was transitioned into a dorsal lithotomy position per protocol. All pressure points were padded. Prepped and draped in the usual sterile fashion. A time-out was performed. A 22 Uzbek cystoscope was passed into the urinary bladder. The bladder and urethra were visualized in their entirety with the findings as above. Both ureteral orifices were identified as described above. Laterality confirmation performed. I was unable to cannulate either ureter with a cone tip catheter for pyelograms secondary to the narrow and rigid openings to the ureters. I then advanced a 0.035 wire into the left collecting system. I had to switch into an angled tip wire with ureteral catheter backing to achieve placement. The wire curled in the renal pelvis. I then advanced a left double-J ureteral stent over the Glidewire and into position in the renal pelvis. I met resistance especially through the intramural tunnel. The wire was then removed and good curl was noted proximally by fluoroscopy and a bladder by direct visualization. The stent appeared in good position and was draining well. I turned my attention to the right. This was an even more difficult wire placement. I did perform pyelograms on this side with the open ended catheter. I was able to negotiate the nodular ureter to enter the kidney. I then advanced a left double-J ureteral stent over the Glidewire and into position in the renal pelvis. I met resistance especially through the intramural tunnel. The wire was then removed and good curl was noted proximally by fluoroscopy and a bladder by direct visualization. The stent appeared in good position and was draining well. There was some mild bleeding from the bilateral ureteral orifices but hemostasisotherwise appeared good. The patient's bladder was drained and the cystoscope was removed. . The patient tolerated the procedure well. Surgical counts were correct. The patient was awoken from anesthesia and transferred to the transport bed without incident. Disposition: The patient was transferred to the PACU in stable condition. Surgical findings were discussed with the patient's available contact per the patient's wishes. Plan of care: Discharge to home. Dr. Larsen performed all of the garrido and critical portions of the procedure with the plant attendant or assistant operator. Dr. Larsen was immediately available for all other portions of the procedure. LOG ID: [id number] Incision/Procedure Start Time: 8:56 AM Incision Close/Procedure End Time: 9:21 AM SIGNATURE: Radha Larsen MD PATIENT NAME: Clint Villar DATE: March 08, 2024 TIME: 9:27 AM [facility] ANES PREOPon 03-05-2024 ANES PREOP HNO ID: [id number] Author: ALEJANDRO WHITE APRN.[employer]ATION ATTENDANT Service: ? Author Type: Nurse Practitioner Type: Anesthesia PreOp Filed: 03/05/2024 10:42 Note Text: 83 yo obese male with HX: AFIB (no rate/rhythm meds; eliquis LD 03/03), HTN, HLD, hyperglycemia (diet controlled), hypothyroid, genital herpes, prostate cancer 10/2023 EKG sb 45bpm [facility] CNNURSEon 03-02-2024 CNNURSE Nurse Visit (RADTWS) -- CLINT VILLAR ([id number]) 1940 M Date Time Provider Department 03/02/24 1:45 PM NURSE RADT [facility] RADTWS During your visit today, we recorded the following information about you: Lise Dillon RN 03/02/2024 2:15 PM Signed Radiation Therapy - Patient Education Note PATIENT NAME: Clint Villar PATIENT March 02, 2024 [facility] FACILITY/LOCATION: [place] READINESS TO LEARN Cognitive Ability: Alert and oriented Motivation to learn: Eager Family Support: Unable to assess - Family not present Instruction provide to: Patient Patient learns best by: Individual Instruction Written Instruction - Hand-outs Verbal Instruction Factors effecting learning: None Physical limitations effecting learning: None LEARNING RESPONSE Diagnosis: Pt simulated today for radiation therapy to pelvis. Education Topic/Teaching Points: Radiation therapy, Side effects, and OTV: Method of instruction: Teach Back skin care Individual instruction Written instruction/Handouts Verbal instruction Patient /Family response: Patient verbalized understanding of radiation treatments, side effects, OTV, and transportation. Follow-up plan: Complete - No need for follow-up Contact information given. Supplemental material: Informational handouts on Bladder function, Diarrhea, Fatigue, and Skin changes. Referral (recommendation): None, Pt denied need for social work, van service, and stamp redemption clerk. 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 - bicalutamide (CASODEX) 50 mg tablet Take 1 tablet by mouth once daily. Take for 10 days starting when you get lupron injection - hydrOXYzine HCl (ATARAX) 25 mg tablet Take 1 tablet by mouth daily at bedtime. - losartan (COZAAR) 100 mg tablet Take 1 tablet by mouth once daily. - atorvastatin (LIPITOR) 40 mg tablet Take 1 tablet by mouth daily at bedtime. - tamsulosin (FLOMAX) 0.4 mg Take 2 capsules by mouth daily at bedtime. - levothyroxine (SYNTHROID) 112 mcg tablet Take 1 tablet by mouth once daily. Take on empty stomach. For thyroid - finasteride (PROSCAR) 5 mg tablet Take 1 tablet by mouth once daily - apixaban (ELIQUIS) 5 mg tab(s) Take 1 tablet by mouth two times a day. - metoprolol tartrate, short acting, (LOPRESSOR) 50 mg tablet Take 1 tablet by mouth two times a day. - amLODIPine (NORVASC) 5 mg tablet Take 1 tablet by mouth once daily. - cyclobenzaprine (FLEXERIL) 10 mg tablet Take 1 tablet by mouth twice daily as needed for muscle spasm. 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] 03/08/2014 05/23/2015 Hypothyroidism [E03.9] 07/21/2014 Herpes infection [B00.9] 05/23/2015 Muscle spasm of back [M62.830] 05/23/2015 Impaired fasting glucose [R73.01] 12/19/2016 Obesity, Class I, BMI 30-34.9 [E66.811] 01/29/2019 06/02/2020 Obesity, Class II, BMI 35-39.9 [E66.812] 06/02/2020 10/25/2023 COVID-19 virus infection [U07.1] 07/03/2020 12/06/2020 Erectile dysfunction [N52.9] 06/21/2021 Urinary frequency [R35.0] 06/21/2021 Anemia [D64.9] 12/27/2021 Positive colorectal cancer screening using [place]*01/03/2023 02/26/2024 Elevated PSA [R97.20] 01/09/2023 New onset atrial fibrillation (HCC) [I48.91] 06/23/2023 10/21/2023 Obesity, Class I, BMI 30-34.9 [E66.811] 07/24/2023 Paroxysmal atrial fibrillation (HCC) [I48.0] 10/21/2023 At risk for stroke [Z91.89] 10/21/2023 Anticoagulant long-term use [Z79.01] 10/21/2023 Peripheral vascular disease, unspecified (HCC) *10/16/2023 Rectal mass [K62.89] 12/04/2023 02/26/2024 Prostate cancer (HCC) [C61] 02/13/2024 Obstructive uropathy [N13.9] 02/26/2024 Encounter Status:Closed by LISE DILLON on 03/02/24 [facility] CNOVon 03-01-2024 CNOV Office Visit (RADTWS ) -- JIANCLINT CONNOR ([id number]) 1940 M Date Time Provider Department 03/01/24 10:00 AM RODOLFO AGUILAR During your visit today, we recorded the following information about you: Temperature Pulse Respiration Blood pressure 97.4 degrees 52/minute 15/minute 137/74 Weight 90.3 kg Rodolfo Aguilar MD 03/04/2024 1:40 PM Signed Radiation Oncology - New Patient/Consult Note PATIENT NAME: Clint Villar PATIENT REQUESTING PROVIDER: Dr. 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 HPI: 83 year old male who presents with above diagnosis, for an opinion regarding the role of radiation therapy in the management of the patient's disease. Final recommendations will be communicated back to the requesting physician by way of the shared medical record, or letter to requesting physician via US mail. 83 year old man who had positive Cologuard test. CT colonography on 12/04/23 showed broad-based mass in the mid rectum (up to 2.2 cm. Several perirectal soft tissue likely tumor deposits. Retroperitoneal and pelvic metastatic lymphadenopathy. Moderate right hydroureteronephrosis obstructed at the level of mid ureter encased by retroperitoneal lymphadenopathy. Colonoscopy on 12/18/23 showed non-bleeding internal hemorrhoids. The hemorrhoids were moderate and medium-sized. Increased firmness of the prostate found on digital rectal exam. The exam was otherwise without abnormality. PSA on 10/22/23 was 73.59 ng/mL. Prostate biopsy on 01/26/24 showed prostatic adenocarcinoma with Cindy score 8 (4+4). Bone scan on 02/20/24 showed foci of uptake in the right ribs, subtle uptake in the scapular spine, increased uptake in the proximal sternum, small focal uptake at the right greater and lesser trochanters, subtle uptake at the posteromedial right ilium. CT A/P on 02/27/24 showed lobulated rectal wall thickening in keeping with the patient's known malignancy, appearing progressed from the prior study. Retroperitoneal and pelvic lymphadenopathy appearing overall progression. In addition, pararectal tumor deposits have progressed in the interval. Severe bilateral hydronephrosis, right greater than left, secondary to ureteral encasement by progressive retroperitoneal lymphadenopathy. He is schedule for Cystscopy with bilateral stent insertion with Dr. Radha Larsen this coming March the . He was started on Casodex on 02/13/24. ALLERGIES No Known Allergies Current Outpatient Medications on File Prior to Visit Medication Sig valACYclovir (VALTREX) 500 mg tablet Take 1 tablet by mouth once daily. bicalutamide (CASODEX) 50 mg tablet Take 1 tablet by mouth once daily. Take for 10 days starting when you get lupron injection hydrOXYzine HCl (ATARAX) 25 mg tablet Take 1 tablet by mouth daily at bedtime. losartan (COZAAR) 100 mg tablet Take 1 tablet by mouth once daily. atorvastatin (LIPITOR) 40 mg tablet Take 1 tablet by mouth daily at bedtime. tamsulosin (FLOMAX) 0.4 mg Take 2 capsules by mouth daily at bedtime. levothyroxine (SYNTHROID) 112 mcg tablet Take 1 tablet by mouth once daily. Take on empty stomach. For thyroid finasteride (PROSCAR) 5 mg tablet Take 1 tablet by mouth once daily apixaban (ELIQUIS) 5 mg tab(s) Take 1 tablet by mouth two times a day. metoprolol tartrate, short acting, (LOPRESSOR) 50 mg tablet Take 1 tablet by mouth two times a day. amLODIPine (NORVASC) 5 mg tablet Take 1 tablet by mouth once daily. cyclobenzaprine (FLEXERIL) 10 mg tablet Take 1 tablet by mouth twice daily as needed for muscle spasm. No current facility-administered medications on file prior to visit. PAST MEDICAL HISTORY Diagnosis Date 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 Anticoagulant long-term use 10/21/2023 At risk for stroke 10/21/2023 Atrial fibrillation (HCC) COVID-19 virus infection 07/03/2020 Dizziness and giddiness Elevated PSA 01/09/2023 Herpes infection 05/23/2015 Breaks out in sacral area every 2-3 months. 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 Prior radiation therapy, collagen vascular disease, or inflammatory bowel disease: No Any implanted or external electric devices? No PAST DAVONTE (more content not included)... Normal [facility] Tray 03-01-2024 FLORINDA Telephone (TYE) -- CLINT VILLAR ([id number]) 1940 M Date Time Provider Department 03/01/24 BOUCHRA FORTUNE During your visit today, we recorded the following information about you: Bouchra Fortune RN 03/01/2024 4:00 PM Addendum EMERGENCY ROOM CALL BACK Today's date: March 01, 2024 Patient identified by name and date of . YES Primary Cancer Diagnosis: Prostate Reason for Emergency Room Visit: kidney issues Time of day presented to Emergency Room 1524 If Fri-Friday during business hours: N/A COPIED FROM 02/28/24 ED NOTE: MDM / Disposition / Plan 83-year-old male history of hypertension, hyperlipidemia, prostate cancer presented to emergency department for abnormal lab findings. Physical exam findings as above. Differential diagnosis includes but is not limited to urinary obstruction versus other etiologies of HERMES's. This was discussed with Dr. Larsen from urology after laboratory evaluation was obtained. It was discussed that CT scan yesterday showed bilateral hydronephrosis as well as worsening mass effect of the prostate and other metastasis. He was also discussed that his creatinine 2 days ago was 2 with a GFR of 30 and I have now trended towards normal creatinine of 1.55. Patient demonstrated understanding and Dr. Larsen from urology stated that he would recommend outpatient follow-up. Did not recommend any medication changes at this time. Stated that due to it improving towards normal that he does not think percutaneous nephrostomy tubes were needed or significant stenting at this time. Stated that if patient was to get worsening urinary retention and difficulty urinating that he should be reevaluated again. Patient demonstrate understanding was discharged home in stable condition. FOLLOW UP Had f/u with Dr. Cortes and consult with Dr. Aguilar today. Cystscopy with bilateral stent insertion with Dr. Radha Larsen 03/08/24 Start radiation 03/09/[address] Payne 04/21/24 Bouchra Fortune RN Allergies As of Date: 03/01/2024 (No Known Allergies) Date Reviewed: 03/01/2024 Reviewed by: Anni Mcnair RN - Fully Assessed Reason for Visit: 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 Follow Up [0589] Prescriptions as of 03/01/2024 - valACYclovir (VALTREX) 500 mg tablet Take 1 tablet by mouth once daily. - bicalutamide (CASODEX) 50 mg tablet Take 1 tablet by mouth once daily. Take for 10 days starting when you get lupron injection - hydrOXYzine HCl (ATARAX) 25 mg tablet Take 1 tablet by mouth daily at bedtime. - losartan (COZAAR) 100 mg tablet Take 1 tablet by mouth once daily. - atorvastatin (LIPITOR) 40 mg tablet Take 1 tablet by mouth daily at bedtime. - tamsulosin (FLOMAX) 0.4 mg Take 2 capsules by mouth daily at bedtime. - levothyroxine (SYNTHROID) 112 mcg tablet Take 1 tablet by mouth once daily. Take on empty stomach. For thyroid - finasteride (PROSCAR) 5 mg tablet Take 1 tablet by mouth once daily - apixaban (ELIQUIS) 5 mg tab(s) Take 1 tablet by mouth two times a day. - metoprolol tartrate, short acting, (LOPRESSOR) 50 mg tablet Take 1 tablet by mouth two times a day. - amLODIPine (NORVASC) 5 mg tablet Take 1 tablet by mouth once daily. - cyclobenzaprine (FLEXERIL) 10 mg tablet Take 1 tablet by mouth twice daily as needed for muscle spasm. 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] 03/08/2014 05/23/2015 Hypothyroidism [E03.9] 07/21/2014 Herpes infection [B00.9] 05/23/2015 Muscle spasm of back [M62.830] 05/23/2015 Impaired fasting glucose [R73.01] 12/19/2016 Obesity, Class I, BMI 30-34.9 [E66.811] 01/29/2019 06/02/2020 Obesity, Class II, BMI 35-39.9 [E66.812] 06/02/2020 10/25/2023 COVID-19 virus infection [U07.1] 07/03/2020 12/06/2020 Erectile dysfunction [N52.9] 06/21/2021 Urinary frequency [R35.0] 06/21/2021 Anemia [D64.9] 12/27/2021 Positive colorectal cancer screening using [place]*01/03/2023 02/26/2024 Elevated PSA [R97.20] 01/09/2023 New onset atrial fibrillation (HCC) [I48.91] 06/23/2023 10/21/2023 Obesity, Class I, BMI 30-34.9 [E66.811] 07/24/2023 Paroxysmal atrial fibrillation (HCC) [I48.0] 10/21/2023 At risk for stroke [Z91.89] 10/21/2023 Anticoagulant long-term use [Z79.01] 10/21/2023 Peripheral vascular disease, unspecified (HCC) *10/16/2023 Rectal mass [K62.89] 12/04/2023 02/26/2024 Prostate cancer (HCC) [C61] 02/13/2024 Obstructive uropathy [N13.9] 02/26/2024 Encounter Status:Closed by BOUCHRA FORTUNE on 03/01/24 [facility] CNPN Telephone (MRPRAD) -- CLINT VILLAR ([id number]) 1940 M Date Time Provider Department 03/01/24 RADHA LARSEN MRPRAD During your visit today, we recorded the following information about you: Radha Larsen MD 03/01/2024 7:17 AM Signed Please try to add as soon as possible Surgery: Cystoscopy and pyelograms, bilateral ureteral stent insertion Duration: 1 hour(s) Surgeon: Radha Larsen MD Location: [facility] Anesthesia: General Fluoroscopy: Yes Special equipment: none PACC visit: No Presurgical testing: no additional Clearance: No Bowel prep: No Blood thinners to stop: yes Edie Murcia 03/01/2024 8:26 AM Signed I spoke with patient this morning, he is scheduled for 03/08/2024. He is aware of the date, details and everything. Thank you, Edie Chandler Allergies As of Date: 03/01/2024 (No Known Allergies) Date Reviewed: 02/28/2024 Reviewed by: Wyatt Quiros RN - Fully Assessed Reason for Visit: Orders [681] Prescriptions as of 03/01/2024 - valACYclovir (VALTREX) 500 mg tablet Take 1 tablet by mouth once daily. - bicalutamide (CASODEX) 50 mg tablet Take 1 tablet by mouth once daily. Take for 10 days starting when you get lupron injection - hydrOXYzine HCl (ATARAX) 25 mg tablet Take 1 tablet by mouth daily at bedtime. - losartan (COZAAR) 100 mg tablet Take 1 tablet by mouth once daily. - atorvastatin (LIPITOR) 40 mg tablet Take 1 tablet by mouth daily at bedtime. - tamsulosin (FLOMAX) 0.4 mg Take 2 capsules by mouth daily at bedtime. - levothyroxine (SYNTHROID) 112 mcg tablet Take 1 tablet by mouth once daily. Take on empty stomach. For thyroid - finasteride (PROSCAR) 5 mg tablet Take 1 tablet by mouth once daily - apixaban (ELIQUIS) 5 mg tab(s) Take 1 tablet by mouth two times a day. - metoprolol tartrate, short acting, (LOPRESSOR) 50 mg tablet Take 1 tablet by mouth two times a day. - amLODIPine (NORVASC) 5 mg tablet Take 1 tablet by mouth once daily. - cyclobenzaprine (FLEXERIL) 10 mg tablet Take 1 tablet by mouth twice daily as needed for muscle spasm. 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] 03/08/2014 05/23/2015 Hypothyroidism [E03.9] 07/21/2014 Herpes infection [B00.9] 05/23/2015 Muscle spasm of back [M62.830] 05/23/2015 Impaired fasting glucose [R73.01] 12/19/2016 Obesity, Class I, BMI 30-34.9 [E66.811] 01/29/2019 06/02/2020 Obesity, Class II, BMI 35-39.9 [E66.812] 06/02/2020 10/25/2023 COVID-19 virus infection [U07.1] 07/03/2020 12/06/2020 Erectile dysfunction [N52.9] 06/21/2021 Urinary frequency [R35.0] 06/21/2021 Anemia [D64.9] 12/27/2021 Positive colorectal cancer screening using [place]*01/03/2023 02/26/2024 Elevated PSA [R97.20] 01/09/2023 New onset atrial fibrillation (HCC) [I48.91] 06/23/2023 10/21/2023 Obesity, Class I, BMI 30-34.9 [E66.811] 07/24/2023 Paroxysmal atrial fibrillation (HCC) [I48.0] 10/21/2023 At risk for stroke [Z91.89] 10/21/2023 Anticoagulant long-term use [Z79.01] 10/21/2023 Peripheral vascular disease, unspecified (HCC) *10/16/2023 Rectal mass [K62.89] 12/04/2023 02/26/2024 Prostate cancer (HCC) [C61] 02/13/2024 Obstructive uropathy [N13.9] 02/26/2024 Encounter Status:Closed by RADHA LARSEN on 03/01/24 [facility] CBC W Auto Differential pane l (Bld)on 02-28-2024 Basophils (Bld) [#/Vol] 0.05 10*3/uL Normal <0.11 [facility] Comment on above: Order Comment: Speci men Type: BLOOD SPECIMEN Ordering Facility: [facility] Address: [address] [place] [address] Performed By: #### 5 7021-8 #### [facility] CLIA [id number] [address] [place] [address] [place] Basophils/100 WBC (Bld) 0.8 % Normal [facility] Comment on above: Order Comment: Speci men Type: BLOOD SPECIMEN Ordering Facility: [facility] Address: [address] [place] [address] Performed By: #### 5 7021-8 #### [facility] CLIA [id number] [address] [place] [address] [place] Differential cell count method Nom (Bld) Auto Normal [facility] Comment on above: Order Comment: Speci men Type: BLOOD SPECIMEN Ordering Facility: [facility] Address: [address] [place] [address] Performed By: #### 5 7021-8 #### [facility] CLIA [id number] [address] [place] [address] [place] Eosinophils (Bld) [#/Vol] 0.10 10*3/uL Normal <0.46 [facility] Comment on above: Order Comment: Speci men Type: BLOOD SPECIMEN Ordering Facility: [facility] Address: [address] [place] [address] Performed By: #### 5 7021-8 #### [facility] CLIA [id number] [address] [place] [address] [place] Eosinophils/100 WBC (Bld) 1.6 % Normal [facility] Comment on above: Order Comment: Speci men Type: BLOOD SPECIMEN Ordering Facility: [facility] Address: [address] [place] [address] Performed By: #### 5 7021-8 #### [facility] CLIA [id number] [address] [place] [address] [place] Erythrocyte distribution width (RBC) [Ratio] 13.1 % Normal 11.5-15.0 [facility] Comment on above: Order Comment: Speci men Type: BLOOD SPECIMEN Ordering Facility: [facility] Address: [address] [place] [address] Performed By: #### 5 7021-8 #### [facility] CLIA [id number] [address] [place] [address] [place] Hematocrit (Bld) [Volume fraction] 38.6 % Low 39.0-51.0 [facility] Comment on above: Order Comment: Speci men Type: BLOOD SPECIMEN Ordering Facility: [facility] Address: [address] [place] [address] [place] [address] Performed By: #### 5 7021-8 #### [facility] CLIA [id number] [address] [place] [address] [place] Hemoglobin (Bld) [Mass/Vol] 12.8 g/dL Low 13.0-17.0 [facility] Comment on above: Order Comment: Speci men Type: BLOOD SPECIMEN Ordering Facility: [facility] Address: [address] [place] [address] Performed By: #### 5 7021-8 #### [facility] CLIA [id number] [address] [place] [address] [place] Immature granulocytes (Bld) [#/Vol] 0.04 10*3/uL Normal <0.10 [facility] Comment on above: Order Comment: Speci men Type: BLOOD SPECIMEN Ordering Facility: [facility] Address: [address] [place] [address] Performed By: #### 5 7021-8 #### [facility] CLIA [id number] [address] [place] [address] [place] Immature granulocytes/100 WBC (Bld) 0.6 % Normal [facility] Comment on above: Order Comment: Speci men Type: BLOOD SPECIMEN Ordering Facility: [facility] Address: [address] [place] [address] Performed By: #### 5 7021-8 #### [facility] CLIA [id number] [address] [place] [address] [place] Lymphocytes (Bld) [#/Vol] 1.88 10*3/uL Normal 1.00-4.00 [facility] Comment on above: Order Comment: Speci men Type: BLOOD SPECIMEN Ordering Facility: [facility] Address: [address] [place] [address] Performed By: #### 5 7021-8 #### [facility] CLIA [id number] [address] [place], [place] [address] [place] Lymphocytes/100 WBC (Bld) 30.4 % Normal [facility] Comment on above: Order Comment: Speci men Type: BLOOD SPECIMEN Ordering Facility: [facility] Address: [address] [place] [address] Performed By: #### 5 7021-8 #### [facility] CLIA [id number] [address] [place] [address] OF [facility] MCH (RBC) [Entitic mass] 32.7 pg Normal 26.0-34.0 [facility] Comment on above: Order Comment: Speci men Type: BLOOD SPECIMEN Ordering Facility: [facility] Address: [address] [place] [address] Performed By: #### 5 7021-8 #### [facility] CLIA [id number] [address] [place] [address] OF [place] MCHC (RBC) [Mass/Vol] 33.2 g/dL Normal 30.5-36.0 [facility] Comment on above: Order Comment: Speci men Type: BLOOD SPECIMEN Ordering Facility: [facility] Address: [address] [place] [address] Performed By: #### 5 7021-8 #### [facility] CLIA [id number] [address] [place] [address] [place] MCV (RBC) [Entitic vol] 98.5 fL Normal 80.0-100.0 [facility] Comment on above: Order Comment: Speci men Type: BLOOD SPECIMEN Ordering Facility: [facility] Address: [address] [place] [address] Performed By: #### 5 7021-8 #### [facility] CLIA [id number] [address] [place] [address] [place] Monocytes (Bld) [#/Vol] 0.59 10*3/uL Normal <0.87 [facility] Comment on above: Order Comment: Speci men Type: BLOOD SPECIMEN Ordering Facility: [facility] Address: [address] [place] [address] Performed By: #### 5 7021-8 #### [facility] CLIA [id number] [address] [place] [address] [place] Monocytes/100 WBC (Bld) 9.5 % Normal [facility] Comment on above: Order Comment: Speci men Type: BLOOD SPECIMEN Ordering Facility: [facility] Address: [address] [place] [address] Performed By: #### 5 7021-8 #### [facility] CLIA [id number] [address] [place] [address] [place] Neutrophils (Bld) [#/Vol] 3.53 10*3/uL Normal 1.45-7.50 [facility] Comment on above: Order Comment: Speci men Type: BLOOD SPECIMEN Ordering Facility: [facility] Address: [address] [place] [address] Performed By: #### 5 7021-8 #### [facility] CLIA [id number] [address] [place] [address] [place] Neutrophils/100 WBC (Bld) 57.1 % Normal [facility] Comment on above: Order Comment: Speci men Type: BLOOD SPECIMEN Ordering Facility: [facility] Address: [address] [place] [address] Performed By: #### 5 7021-8 #### [facility] CLIA [id number] [address] [place] [address] [place] Nucleated RBC (Bld) [#/Vol] 10*3/uL Normal <0.01 [facility] Comment on above: Order Comment: Speci men Type: BLOOD SPECIMEN Ordering Facility: [facility] Address: [address] [place] [address] Performed By: #### 5 7021-8 #### [facility] CLIA [id number] [address] [place] [address] [place] Nucleated RBC/100 WBC (Bld) [Ratio] 0.0 /100 WBC Normal [facility] Comment on above: Order Comment: Speci men Type: BLOOD SPECIMEN Ordering Facility: [facility] Address: [address] [place] [address] Performed By: #### 5 7021-8 #### [facility] CLIA [id number] [address] [place], [place] [address] [place] Platelet mean volume (Bld) [Entitic vol] 8.4 fL Low 9.0-12.7 [facility] Comment on above: Order Comment: Speci men Type: BLOOD SPECIMEN Ordering Facility: [facility] Address: [address] [place] [address] Performed By: #### 5 7021-8 #### [facility] CLIA [id number] [address] [place] [address] [place] Platelets (Bld) [#/Vol] 295 10*3/uL Normal 150-400 [facility] Comment on above: Order Comment: Speci men Type: BLOOD SPECIMEN Ordering Facility: [facility] Address: [address] [place] [address] Performed By: #### 5 7021-8 #### [facility] CLIA [id number] [address] [place] [address] [place] RBC (Bld) [#/Vol] 3.92 10*6/uL Low 4.20-6.00 [facility] Comment on above: Order Comment: Speci men Type: BLOOD SPECIMEN Ordering Facility: [facility] Address: [address] [place] [address] Performed By: #### 5 7021-8 #### [facility] CLIA [id number] [address] [place] [address] [place] WBC (Bld) [#/Vol] 6.19 10*3/uL Normal 3.70-11.00 [facility] Comment on above: Order Comment: Speci men Type: BLOOD SPECIMEN Ordering Facility: [facility] Address: [address] [place] [address] Performed By: #### 5 7021-8 #### [facility] CLIA [id number] [address] [place], [place] [address] [facility] [place] Comprehensive metabolic 2000 panelon 02-28-2024 Albumin [Mass/Vol] 3.3 g/dL Normal 3.2-5.0 [facility] Comment on above: Order Comment: Speci men Type: BLOOD SPECIMEN Ordering Facility: [facility] Address: [address] [place] [address] Performed By: #### 2 4323-8 #### [facility] CLIA [id number] [address] [place] [address] [place] ALP [Catalytic activity/Vol] 83 U/L Normal 45-117 [facility] Comment on above: Order Comment: Speci men Type: BLOOD SPECIMEN Ordering Facility: [facility] Address: [address] [place] [address] Performed By: #### 2 4323-8 #### [facility] CLIA [id number] [address] [place] [address] [place] ALT [Catalytic activity/Vol] 12 U/L Low 13-61 [facility] Comment on above: Order Comment: Speci men Type: BLOOD SPECIMEN Ordering Facility: [facility] Address: [address] [place] [address] Result Comment: Resu lts may be falsely depressed after the administration of Sulfasalazine and/or Sulfapyridine. Performed By: #### 2 4323-8 #### [facility] CLIA [id number] [address] [place] [address] [place] Anion gap [Moles/Vol] 6 mmol/L Normal 5-16 [facility] Comment on above: Order Comment: Speci men Type: BLOOD SPECIMEN Ordering Facility: [facility] Address: [address] [place] [address] Performed By: #### 2 4323-8 #### [facility] CLIA [id number] [address] [place] [address] [place] AST [Catalytic activity/Vol] 17 U/L Normal 8-34 [facility] Comment on above: Order Comment: Speci men Type: BLOOD SPECIMEN Ordering Facility: [facility] Address: [address] [place] [address] Result Comment: Resu lts may be falsely depressed after the administration of Sulfasalazine and/or Sulfapyridine. Performed By: #### 2 4323-8 #### [facility] CLIA [id number] [address] [place] [address] [place] Bilirubin [Mass/Vol] 0.2 mg/dL Normal 0.2-1.0 [facility] Comment on above: Order Comment: Speci men Type: BLOOD SPECIMEN Ordering Facility: [facility] Address: [address] [place] [address] Performed By: #### 2 4323-8 #### [facility] CLIA [id number] [address] [place] [address] [place] Calcium [Mass/Vol] 10.5 mg/dL Normal 8.5-10.5 [facility] Comment on above: Order Comment: Speci men Type: BLOOD SPECIMEN Ordering Facility: [facility] Address: [address] [place] [address] Performed By: #### 2 4323-8 #### [facility] CLIA [id number] [address] [place] [address] [place] Chloride [Moles/Vol] 102 mmol/L Normal 98-107 [facility] Comment on above: Order Comment: Speci men Type: BLOOD SPECIMEN Ordering Facility: [facility] Address: [address] [place] [address] Performed By: #### 2 4323-8 #### [facility] CLIA [id number] [address] [place] [address] [place] CO2 [Moles/Vol] 30 mmol/L Normal 21-32 [facility] Comment on above: Order Comment: Speci men Type: BLOOD SPECIMEN Ordering Facility: [facility] Address: [address] [place] [address] Performed By: #### 2 4323-8 #### [facility] CLIA [id number] [address] [place], [place] [id number] [place] Creatinine [Mass/Vol] 1.55 mg/dL High 0.50-1.40 [facility] Comment on above: Order Comment: Speci men Type: BLOOD SPECIMEN Ordering Facility: [facility] Address: [address] [id number] Result Comment: Mena ents receiving either N-Acetylcysteine (NAC) or Metamizole prior to venipuncture, may have falsely depressed results. Performed By: #### 2 4323-8 #### [facility] CLIA [id number] [address] [place] [address] [place] Creatinine and Glomerular filtration rate.predicted panel (S/P/Bld) 45 mL/min/1.73m??? Low >=60 [facility] Comment on above: Order Comment: Franny zavala Type: BLOOD SPECIMEN Ordering Facility: [facility] Address: [address] [place] [address] Result Comment: Karin mated Glomerular Filtration Rate (eGFR) is calculated using the 2020 CKD-EPI creatinine equation. This equation utilizes serum creatinine, sex, and age as parameters. The creatinine assay has traceable calibration to isotope dilution-mass spectrometry. Refer to KDIGO guidelines for clinical interpretation. In patients with unstable renal function, e.g. those with acute kidney injury, the eGFR may not accurately reflect actual GFR. Performed By: #### 2 4323-8 #### [facility] CLIA [id number] [address] [place] [address] [place] Glucose [Mass/Vol] 109 mg/dL High 70-100 [facility] Comment on above: Order Comment: Franny zavala Type: BLOOD SPECIMEN Ordering Facility: [facility] Address: [address] [id number] Result Comment: The [place] [employer] (ADA) provides guidance for cutoff values for fasting glucose and random glucose. The ADA defines fasting as no caloric intake for at least 8 hours. Fasting plasma glucose results between 100 to 125 mg/dL indicate increased risk for diabetes (prediabetes). Fasting plasma glucose results greater than or equal to 126 mg/dL meet the criteria for diagnosis of diabetes. In the absence of unequivocal hyperglycemia, results should be confirmed by repeat testing. In a patient with classic symptoms of hyperglycemia or hyperglycemic crisis, random plasma glucose results greater than or equal to 200 mg/dL meet the criteria for diagnosis of diabetes. Reference: Standards of Medical Care in Diabetes 2016, [place] [employer]. Diabetes Care. 2016.39(Suppl 1). Results may be falsely elevated after the administration of Sulfapyridine. Results may be falsely depressed after the administration of Sulfasalazine. Performed By: #### 2 4323-8 #### [facility] CLIA [id number] [address] [place] [address] [place] Potassium [Moles/Vol] 4.8 mmol/L Normal 3.5-5.1 [facility] Comment on above: Order Comment: Speci men Type: BLOOD SPECIMEN Ordering Facility: [facility] Address: [address] [place] [address] Performed By: #### 2 4323-8 #### [facility] CLIA [id number] [address] [place] [address] [place] Protein [Mass/Vol] 7.8 g/dL Normal 6.0-8.5 [facility] Comment on above: Order Comment: Speci men Type: BLOOD SPECIMEN Ordering Facility: [facility] Address: [address] [place] [address] Performed By: #### 2 4323-8 #### [facility] CLIA [id number] [address] [place] [address] [place] Sodium [Moles/Vol] 138 mmol/L Normal 136-145 [facility] Comment on above: Order Comment: Celestinai sally Type: BLOOD SPECIMEN Ordering Facility: [facility] Address: [address] [place] [address] Performed By: #### 2 4323-8 #### [facility] CLIA [id number] [address] [place] [address] [place] Urea nitrogen [Mass/Vol] 28 mg/dL High 7-26 [facility] Comment on above: Order Comment: Celestinai men Type: BLOOD SPECIMEN Ordering Facility: [facility] Address: [address] [place] [address] Performed By: #### 2 4323-8 #### [facility] CLIA [id number] [address] [place] [address] [facility] ED NOTEon 02-28-2024 ED NOTE HNO ID: [id number] Author: WYATT QUIROS RN Service: Emergency Medicine Author Type: Registered Nurse Type: ED Notes Filed: 02/28/2024 17:58 Note Text: Pt ambulated independently with steady gait to and from restroom. [facility] ED NOTE HNO ID: [id number] Author: WYATT QUIROS RN Service: Emergency Medicine Author Type: Registered Nurse Type: ED Notes Filed: 02/28/2024 16:44 Note Text: Pt alert and oriented, respirations regular and unlabored. Pt reports being referred from his PCP d/t kidney function results. Pt endorses R flank pain, urinary urgency and frequency, dribbling when voiding with hx prostate CA. Denies fevers, chills, N/V/D. [facility] ED NOTE HNO ID: [id number] Author: WYATT QUIROS RN Service: Emergency Medicine Author Type: Registered Nurse Type: ED Notes Filed: 02/28/2024 16:43 Note Text: [facility] ED PROV NOTEon 02-28-2024 ED PROV NOTE HNO ID: [id number] Author: ISIDRO FERRARI MD Service: Emergency Medicine Author Type: Physician Type: ED Provider Notes Filed: 02/29/2024 00:19 Note Text: ED Provider Note Patient Name: Clint Villar : 1940 SERVICE DATE: 02/28/24 History Patient presents with: Blood Test Abnormality: Elevated kidney levels, had recent bloodwork/CT scan for kidney failure. Told to come to ER for possible admission with stent placement. 83-year-old male history of hypertension, hyperlipidemia, prostate cancer presented to emergency department for abnormal lab findings. Patient had abnormal labs that were drawn 2 days ago with noted CKD and had a CT scan yesterday showing signs of hydronephrosis bilaterally secondary to likely prostate cancer with mets to lymph nodes. This was discussed with his urologist Dr. Cortes through text that recommended he come and be evaluated. Patient having no other symptoms at this time and stating that he is being better today than he was over the last several days combined. PAST MEDICAL HISTORY Diagnosis Date - 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 - Anticoagulant long-term use 10/21/2023 - At risk for stroke 10/21/2023 - Atrial fibrillation (HCC) - COVID-19 virus infection 07/03/2020 - Dizziness and giddiness - Elevated PSA 01/09/2023 - Herpes infection 05/23/2015 Breaks out in sacral area every 2-3 months. 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 PAST SURGICAL HISTORY Procedure Laterality Date - COLONOSCOPY - DIAGNOSTIC 12/18/2023 - OPEN REPAIR OF ROTATOR CUFF ACUTE Right 2005 Rotator cuff repair, right - PROSTATE BIOPSY W/TRANSRECTAL US 01/26/2024 - TONSILLECTOMY PRIMARY/SECONDARY Tonsillectomy FAMILY HISTORY Problem Relation Age of Onset - other (Other) Mother no contact - Coronary Artery Disease Father - Heart Failure Father - Diabetes Father - Cancer Paternal Grandfather - Cancer Half-brother Social History Tobacco Use - Smoking status: Former Types: Cigarettes - Smokeless tobacco: Never - Tobacco comments: Pt smoked 1 pack daily x 14 years, quit in 1965 Vaping Use - Vaping status: Never Used Substance and Sexual Activity - Alcohol use: Yes Alcohol/week: 1.0 standard drink of alcohol Types: 1 Cans of beer per week - Drug use: Never - Sexual activity: Not Currently Partners: Female ALLERGIES No Known Allergies Review of Systems Gastrointestinal: Negative for abdominal pain, constipation, diarrhea, nausea and vomiting. Genitourinary: Positive for difficulty urinating (Intermittently). Negative for dysuria, frequency, hematuria, penile pain and urgency. Musculoskeletal: Negative for back pain. Skin: Negative for rash and wound. Psychiatric/Behavioral: Negative for agitation and behavioral problems. All other systems reviewed and are negative. Physical Exam Vitals [02/28/24 1529] BP Pulse Temp Temp src Resp SpO2 Weight Height 172/80 57 36.6 ?C (97.9 ?F) Oral 18 98 % 89.4 kg (197 lb) 1.676 m (5' 6) Physical Exam Vitals and nursing note reviewed. Constitutional: Appearance: Normal appearance. He is normal weight. HENT: Head: Normocephalic. Right Ear: External ear normal. Left Ear: External ear normal. Pulmonary: Effort: Pulmonary effort is normal. No respiratory distress. Abdominal: General: Abdomen is flat. There is no distension. Palpations: Abdomen is soft. Tenderness: There is no abdominal tenderness. There is no right CVA tenderness, left CVA tenderness, guarding or rebound. Neurological: Mental Status: He is alert. Diagnostic Testing ED Labs Ordered and Reviewed COMPREHENSIVE METABOLIC PANEL - Abnormal; Notable for the following components: Result Value Ref Range ALT 12 (*) 13 - 61 U/L Glucose 109 (*) 70 - 100 mg/dL BUN 28 (*) 7 - 26 mg/dL Creatinine 1.55 (*) 0.50 - 1.40 mg/dL Estimated Glomerular Filtration Rate 45 (*) >=60 mL/min/1.73m? All other components within normal limits COMPLETE BLOOD COUNT AND DIFFERENTIAL - Abnormal; Notable for the following components: RBC 3.92 (*) 4.20 - 6.00 m/uL Hemoglobin 12.8 (*) 13.0 - 17.0 g/dL Hematocrit 38.6 (*) 39.0 - 51.0 % MPV 8.4 (*) 9.0 - 12.7 fL All other components within normal limits URINALYSIS WITH MICROSCOPIC, REFLEX CULTURE Procedures ED Course / Clinical Impression Clini (more content not included)... Normal [facility] ED Triage Noteon 02-28-2024 ED Triage Note HNO ID: [id number] Author: RUTH PHAM PA-C Service: ? Author Type: Physician Senior Quantity Surveyor Type: ED Triage Notes Filed: 02/28/2024 15:35 Note Text: ED TRIAGE PROVIDER NOTE Patient Name: Clint Villar Service Date: 02/28/24 BRIEF HPI: This is a 83 year old male with history of prostate cancer, rectal mass who presents to the ED with: Abnormal renal function and CT scan. Had recent blood work and CT scan to assess for his worsening renal function. Denies any headaches vision changes numbness tingling weakness. No chest pain or shortness of breath. No fevers or chills. States he does have some difficulty urinating and feels that is slower than normal. Has some lower abdominal discomfort as well, rates as a 2 out of 10. Dull in nature. Has been going on for the past week or so. No diarrhea or constipation. Patient CT scan performed yesterday which revealed. IMPRESSION: Lobulated rectal wall thickening in keeping with the patient's known malignancy, appearing progressed from the prior study. Retroperitoneal and pelvic lymphadenopathy appearing overall progression the previous study as above indicating progression of disease. In addition, pararectal tumor deposits have progressed in the interval. Severe bilateral hydronephrosis, right greater than left, secondary to ureteral encasement by progressive retroperitoneal lymphadenopathy. No obstructing calculus identified. Renal function from 02-26-2024 revealed a creatinine of 2 and GFR of 33. BRIEF EXAM: NAD Awake and Alert Non labored breathing No focal neurological deficits Abdomen is soft, nontender nondistended. No CVA tenderness bilaterally. INITIAL WORKUP AND DECISION MAKING: Orders Placed This Encounter COMPREHENSIVE METABOLIC PANEL (BMP+LFT) CBC + AUTO DIFF Urinalysis w Microscopic, reflex Culture SIGNATURE: Ruth Pham PA-C Normal [facility] Urinalysis complete panel (U )on 02-28-2024 Bacteria LM.HPF (Urine sed) [#/Area] None Seen Normal None Seen [facility] Comment on above: Order Comment: Speci men Type: URINE SPECIMEN Ordering Facility: [facility] Address: [address] [place] [address] Performed By: #### 2 4356-8 #### [facility] CLIA [id number] [address] [place] [address] [place] Bilirubin Ql (U) Negative Normal Negative [facility] Comment on above: Order Comment: Speci men Type: URINE SPECIMEN Ordering Facility: [facility] Address: [address] [place] [address] Performed By: #### 2 4356-8 #### [facility] CLIA [id number] [address] [place] [address] [place] Clarity (Unsp spec) Clear Normal Clear [facility] Comment on above: Order Comment: Speci men Type: URINE SPECIMEN Ordering Facility: [facility] Address: [address] [place] [address] Performed By: #### 2 4356-8 #### [facility] CLIA [id number] [address] [place] [address] [place] Color (U) Yellow Normal Yellow [facility] Comment on above: Order Comment: Speci men Type: URINE SPECIMEN Ordering Facility: [facility] Address: [address] [place] [address] Performed By: #### 2 4356-8 #### [facility] CLIA [id number] [address] [place] [address] [place] Epithelial cells LM.HPF (Urine sed) [#/Area] None Seen Normal [facility] Comment on above: Order Comment: Speci men Type: URINE SPECIMEN Ordering Facility: [facility] Address: [address] [place] [address] Performed By: #### 2 4356-8 #### [facility] CLIA [id number] [address] [place] [address] [place] Glucose Test strip (U) [Mass/Vol] Negative Normal Negative [facility] Comment on above: Order Comment: Speci men Type: URINE SPECIMEN Ordering Facility: [facility] Address: [address] [place] [address] Performed By: #### 2 4356-8 #### [facility] CLIA [id number] [address] [place] [address] [place] Hemoglobin Ql (U) Negative Normal Negative [facility] Comment on above: Order Comment: Speci men Type: URINE SPECIMEN Ordering Facility: [facility] Address: [address] [place] [address] Performed By: #### 2 4356-8 #### [facility] CLIA [id number] [address] [place] [address] [place] Ketones Ql (U) Negative Normal Negative [facility] Comment on above: Order Comment: Speci men Type: URINE SPECIMEN Ordering Facility: [facility] Address: [address] [place] [address] Performed By: #### 2 4356-8 #### [facility] CLIA [id number] [address] [place] [address] [place] Leukocyte esterase Test strip Ql (U) Negative Normal Negative [facility] Comment on above: Order Comment: Speci men Type: URINE SPECIMEN Ordering Facility: [facility] Address: [address] [place] [address] Performed By: #### 2 4356-8 #### [facility] CLIA [id number] [address] [place] [address] STATES [facility] Nitrite Ql (U) Negative Normal Negative [facility] Comment on above: Order Comment: Speci men Type: URINE SPECIMEN Ordering Facility: [facility] Address: [address] [place] [address] Performed By: #### 2 4356-8 #### [facility] CLIA [id number] [address] [place] [address] STATES [facility] pH (U) 7.0 [pH] Normal 5.0-8.0 [facility] Comment on above: Order Comment: Speci men Type: URINE SPECIMEN Ordering Facility: [facility] Address: [address] [place] [address] Performed By: #### 2 4356-8 #### [facility] CLIA [id number] [address] [place] [address] [place] Protein (U) [Mass/Vol] Negative Normal Negative [facility] Comment on above: Order Comment: Speci men Type: URINE SPECIMEN Ordering Facility: [facility] Address: [address] [place] [address] Performed By: #### 2 4356-8 #### [facility] CLIA [id number] [address] [place] [address] [place] RBC LM.HPF (Urine sed) [#/Area] 0-3 /HPF Normal 0-3 /HPF [facility] Comment on above: Order Comment: Speci men Type: URINE SPECIMEN Ordering Facility: [facility] Address: [address] [place] [address] Performed By: #### 2 4356-8 #### [facility] CLIA [id number] [address] [place] [address] [place] Specific gravity (U) [Rel density] 1.011 Normal 1.005-1.030 [facility] Comment on above: Order Comment: Speci men Type: URINE SPECIMEN Ordering Facility: [facility] Address: [address] [place] [address] Performed By: #### 2 4356-8 #### [facility] CLIA [id number] [address] [place] [address] Urobilinogen Ql (U) Negative Normal Negative [facility] Comment on above: Order Comment: Speci men Type: URINE SPECIMEN Ordering Facility: [facility] Address: [address] [place] [address] Performed By: #### 2 4356-8 #### [facility] CLIA [id number] [address] [place] [address] WBC LM.HPF (Urine sed) [#/Area] 0-5 /HPF Normal 0-5 /HPF [facility] Comment on above: Order Comment: Speci men Type: URINE SPECIMEN Ordering Facility: [facility] Address: [address] [place] [address] Performed By: #### 2 4356-8 #### [facility] CLIA [id number] [address] [place] [address] [place] CNOVSPon 02-27-2024 CNOVSP Visit (SP[facility] -- CLINT VILLAR ([id number]) 1940 M Date Time Provider Department 02/27/24 8:30 AM JOHAN PAYNE During your visit today, we recorded the following information about you: Temperature Pulse Blood pressure Weight 97 degrees 50/minute 135/84 90.5 kg Johan Payne MD 02/27/2024 12:06 PM Signed (Elements copied from my note dated February 13, 2024, have been reviewed and updated where appropriate, and all reflect current assessment and medical decision making from today's encounter, February 27, 2024) HISTORY OF PRESENT ILLNESS: Clint Villar is a 83 year old male in excellent health had a cologuard come back positive. A colonography CT scan was done that showed retroperitoneal adenopathy, enlarged prostate gland and possible rectal mass. Colonoscopy was negative for rectal mass. Saw urology PSA 73.59 (was 71 in January 2023). Prostate enlarged and firm. Biopsy of prostate is planned for mid January. 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 Reviewed case also with Dr Aguilar. Met in follow up, reviewed prostate biopsy shows adenocarcinoma. Bone scan focally positive. CLINICAL IMPRESSION: Elevated PSA Enlarged and firm prostate Retroperitoneal adenopathy Prostate cancer on biopsy RECOMMENDATION/PLAN: 1. begin GnRH agonist with casodex bridge. 2. Follow up with urology. ?need for ureteral stent for hydronephrosis seen on CT scan 3. Appointment with rad onc when feasible 4. Back in 6 weeks with PSA Written and verbal health teaching given to patient, patient verbalizes understanding and agrees with treatment plan. 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 PAST SURGICAL HISTORY 2004: OPEN REPAIR OF ROTATOR CUFF ACUTE; Right Comment: Rotator cuff repair, right 1950s: TONSILLECTOMY PRIMARY/SECONDARY Comment: Tonsillectomy FAMILY HISTORY Problem Relation Age of Onset other (Other) Mother no contact Coronary Artery Disease Father Heart Failure Father Diabetes Father Cancer Paternal Grandfather Cancer Half-brother Social History Tobacco Use Smoking status: Former Types: Cigarettes Smokeless tobacco: Never Tobacco comments: Pt smoked 1 pack daily x 20 years, Vaping Use Vaping status: Never Used Substance Use Topics Alcohol use: Yes Alcohol/week: 1.0 standard drink of alcohol Types: 1 Cans of beer per week Drug use: Never ALLERGIES: ALLERGIES No Known Allergies CURRENT OUTPATIENT MEDICATIONS: levothyroxine (SYNTHROID) 112 mcg tablet Take 1 tablet by mouth once daily. Take on empty stomach. For thyroid finasteride (PROSCAR) 5 mg tablet Take 1 tablet by mouth once daily apixaban (ELIQUIS) 5 mg tab(s) Take 1 tablet by mouth two times a day. metoprolol tartrate, short acting, (LOPRESSOR) 50 mg tablet Take 1 tablet by mouth two times a day. amLODIPine (NORVASC) 5 mg tablet Take 1 tablet by mouth once daily. hydrOXYzine HCl (ATARAX) 25 mg tablet Take 1 tablet by mouth daily at bedtime. losartan (COZAAR) 100 mg tablet Take 1 tablet by mouth once daily. valACYclovir (VALTREX) 500 mg tablet Take 1 tablet by mouth once daily. atorvastatin (LIPITOR) 40 mg tablet Take 1 tablet by mouth daily at bedtime. tamsulosin (FLOMAX) 0.4 mg Take 2 capsules by mouth daily at bedtime. cyclobenzaprine (FLEXERIL) 10 mg tablet Take 1 tablet by mouth twice daily as needed for muscle spasm. levoFLOXacin (LEVAQUIN) 750 mg tablet Take 1 tablet by mouth once daily. Start the day before the biopsy REVIEW OF SYSTEMS: GENERAL: No fever, night sweats, weight loss or malaise. All other reviewed and negative other than HPI. PHYSICAL EXAMINATION: VITAL SIGNS: BP 159/69 Pulse 44 Temp (Src) 97.4 (Temporal) Ht 5' 5.5 (1.66m) Wt 212 lb 8 oz (96.4kg) SpO2 97% BMI 34.81 kg/(m2). GENERAL APPEARANCE: We (more content not included)... Normal [facility] CT Abdomen and Pelvis WO con traston 02-27-2024 IMPRESSION: Lobulated rectal wall thickening in keeping with the patient's known malignancy, appearing progressed from the prior study. Retroperitoneal and pelvic lymphadenopathy appearing overall progression the previous study as above indicating progression of disease. In addition, pararectal tumor deposits have progressed in the interval. Severe bilateral hydronephrosis, right greater than left, secondary to ureteral encasement by progressive retroperitoneal lymphadenopathy. No obstructing calculus identified. Cost Estimating Manager: [facility] Transcribe Date/Time: Feb 27 2024 1:09P Dictated by : SRUTHI HO MD This examination was interpreted and the report reviewed and electronically signed by: SRUTHI HO MD on Feb 27 2024 1:39PM [facility] * * *Final Report* * * DATE OF EXAM: Feb 27 2024 12:35PM [facility] 0531 - CT ABD/PEL WO IVCON / PROCEDURE REASON: Hydronephrosis, unspecified hydronephrosis type * * * * Physician Interpretation * * * * EXAMINATION: CT ABDOMEN AND PELVIS WITHOUT IV CONTRAST CLINICAL HISTORY: Hydronephrosis, unspecified hydronephrosis type. Right flank pain several weeks. History of colorectal cancer. TECHNIQUE: Non-IV contrast imaging of the abdomen and pelvis was performed using standard technique, scanning from just above the dome of the diaphragm to the symphysis pubis. Unenhanced imaging is limited for the evaluation of some intra-abdominal and pelvic pathology. MQ: CTAPWO_3 Contrast: IV: None CT Radiation dose: Integrated Dose-length product (DLP) for this visit = 459.20 mGy*cm. CT Dose Reduction Employed: Automated exposure control(AEC) and iterative recon COMPARISON: CT colonoscopy dated 12/04/2023. RESULT: Abdomen / Pelvis: Liver: Unremarkable. Biliary: The gallbladder is unremarkable. Spleen: No splenomegaly. Pancreas: Unremarkable. Adrenals: No mass. Kidneys: There is severe bilateral hydronephrosis, right greater than left with distal ureteral encasement again shown at the level of the aortic bifurcation by iliac chain lymphadenopathy described below. No calculus. No finding to suggest a mass or cyst in the unenhanced kidney. GI Tract: No bowel dilation. There is lobular rectal wall thickening (image 94, series 2) which appears progressed. Lymph Nodes: Multiple enlarged retroperitoneal and pelvic lymph nodes have overall increased in size from the previous study. 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 * Bilateral external iliac chain lymphadenopathy appears stable to slightly worse. Mesentery/peritoneum: No ascites or free air. Vasculature: Arterial atherosclerotic disease without aneurysm. Pelvis: Perirectal nodular soft tissue deposits are again shown. This includes a 3.0 x 2.2 cm on the right compared with 2.5 x 1.9 cm previously. Dimensions on the left are 2.5 x 3.0 cm, stable. Dimensions posteriorly are 4.2 x 3.0 cm compared with 3.5 x 2.5 cm previously. Bones/Soft Tissues: Mild lumbar levoscoliosis with degenerative changes at multiple levels in the spine. 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 No destructive bone lesion. Degenerative changes of the hips. Lower thorax: Calcified granuloma posteriorly at the left base. Otherwise, unremarkable. Localizer images: No additional findings. [facility] Provider, London Ames - 02/27/2024 * * *Final Report* * * DATE OF EXAM: Feb 27 2024 12:35PM [facility] 0531 - CT ABD/PEL WO IVCON / PROCEDURE REASON: Hydronephrosis, unspecified hydronephrosis type * * * * Physician Interpretation * * * * EXAMINATION: CT ABDOMEN AND PELVIS WITHOUT IV CONTRAST CLINICAL HISTORY: Hydronephrosis, unspecified hydronephrosis type. Right flank pain several weeks. History of colorectal cancer. TECHNIQUE: Non-IV contrast imaging of the abdomen and pelvis was performed using standard technique, scanning from just above the dome of the diaphragm to the symphysis pubis. Unenhanced imaging is limited for the evaluation of some intra-abdominal and pelvic pathology. MQ: CTAPWO_3 Contrast: IV: None CT Radiation dose: Integrated Dose-length product (DLP) for this visit = 459.20 mGy*cm. CT Dose Reduction Employed: Automated exposure control(AEC) and iterative recon COMPARISON: CT colonoscopy dated 12/04/2023. RESULT: Abdomen / Pelvis: Liver: Unremarkable. Biliary: The gallbladder is unremarkable. Spleen: No splenomegaly. Pancreas: Unremarkable. Adrenals: No mass. Kidneys: There is severe bilateral hydronephrosis, right greater than left with distal ureteral encasement again shown at the level of the aortic bifurcation by iliac chain lymphadenopathy described below. No calculus. No finding to suggest a mass or cyst in the unenhanced kidney. GI Tract: No bowel dilation. There is lobular rectal wall thickening (image 94, series 2) which appears progressed. Lymph Nodes: Multiple enlarged retroperitoneal and pelvic lymph nodes have overall increased in size from the previous study. 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 * Bilateral external iliac chain lymphadenopathy appears stable to slightly worse. Mesentery/peritoneum: No ascites or free air. Vasculature: Arterial atherosclerotic disease without aneurysm. Pelvis: Perirectal nodular soft tissue deposits are again shown. This includes a 3.0 x 2.2 cm on the right compared with 2.5 x 1.9 cm previously. Dimensions on the left are 2.5 x 3.0 cm, stable. Dimensions posteriorly are 4.2 x 3.0 cm compared with 3.5 x 2.5 cm previously. Bones/Soft Tissues: Mild lumbar levoscoliosis with degenerative changes at multiple levels in the spine. 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 No destructive bone lesion. Degenerative changes of the hips. Lower thorax: Calcified granuloma posteriorly at the left base. Otherwise, unremarkable. Localizer images: No additional findings. IMPRESSION IMPRESSION: Lobulated rectal wall thickening in keeping with the patient's known malignancy, appearing progressed from the prior study. Retroperitoneal and pelvic lymphadenopathy appearing overall progression the previous study as above indicating progression of disease. In addition, pararectal tumor deposits have progressed in the interval. Severe bilateral hydronephrosis, right greater than left, secondary to ureteral encasement by progressive retroperitoneal lymphadenopathy. No obstructing calculus identified. Cost Estimating Manager: PSCB Transcribe Date/Time: Feb 27 2024 1:09P Dictated by : SRUTHI HO MD This examination was interpreted and the report reviewed and electronically signed by: SRUTHI HO MD on Feb 27 2024 1:39PM EST [facility] Radiology Study observation (narrative) [facility] CT Abdomen and Pelvis WO con trastOrdered By: Ccf Provider on 02-27-2024 [facility] CBC panel Auto (Bld)on 02-25 Erythrocyte distribution width (RBC) [Ratio] 13.2 % 11.5 - 15.0 % [facility] Hematocrit (Bld) [Volume fraction] 38.1 % Low 39.0 - 51.0 % [facility] Hemoglobin (Bld) [Mass/Vol] 12.3 g/dL Low 13.0 - 17.0 g/dL [facility] Interpretation and review of laboratory results Abnormal [facility] MCH (RBC) [Entitic mass] 32.1 pg 26.0 - 34.[address] [facility] MCHC (RBC) [Mass/Vol] 32.3 g/dL 30.5 - 36.0 g/dL [facility] MCV (RBC) [Entitic vol] 99.5 fL 80.0 - 100.[address] [facility] Nucleated RBC (Bld) [#/Vol] NINF [facility] Platelet mean volume (Bld) [Entitic vol] 9.0 fL 9.0 - 12.[address] [facility] Platelets (Bld) [#/Vol] 364 10*3/uL [facility] RBC (Bld) [#/Vol] 3.83 10*6/uL Low 4.20 - 6.0 0 m/uL [facility] WBC (Bld) [#/Vol] 7.66 10*3/uL [facility] NM Whole body Bone Viewson 1 IMPRESSION: Findings suspicious for osseous metastases. Consider correlation with PSMA PET/CT. LEFT hydronephrosis/hydroureter onephrosis. Given the configuration of the urinary bladder distended secondary to outlet obstruction. Renal ultrasound, as indicated. COMMUNICATION: Communicated with Dr. JOHAN PAYNE on 02/20/2024 4:55 PM via [employer] staff message. Cost Estimating Manager: ithinksport Transcribe Date/Time: Feb 20 2024 4:45P Dictated by : JUSTYN AYALA MD This examination was interpreted and the report reviewed and electronically signed by: JUSTYN AYALA MD on Feb 20 2024 4:55PM [facility] DIVISION OF RADIOLOGY * * *Final Report* * * DATE OF EXAM: Feb 20 2024 4:19PM [facility] BONE WHOLE BODY / PROCEDURE REASON: multiple diagnoses * * * * Physician Interpretation * * * * WHOLE BODY BONE SCAN CLINICAL HISTORY: Prostate cancer. TECHNIQUE: 22.3 mCi technetium 99m MDP IV. Planar images of the whole body obtained in anterior and posterior views at approximately 3 hours post injection. COMPARISON: No prior bone scan RESULT: Portions of the upper extremities are not visualized, and cannot be assessed for pathology. Whole body and static images demonstrate randomly distributed foci of uptake in the right ribs, subtle uptake in the scapular spine, increased uptake in the proximal sternum, small focal uptake at the right greater and lesser trochanters, subtle uptake at the posteromedial right ilium. Photopenia at the distal sternum is nonspecific. Foci of uptake in the spine may be degenerative and/or metastatic. Findings suggestive of left hydroureteronephrosis. Increased uptake in the shoulders, sternoclavicular joints, knees, feet is likely due to degenerative/arthritic changes. Radiographic confirmation may be performed, as clinically indicated. Soft tissue and urinary bladder uptake confirmed. DIVISION OF RADIOLOGY Provider, Andree Calderon [facility] - 02/20/2024 * * *Final Report* * * DATE OF EXAM: Feb 20 2024 4:19PM [facility] - [place] BONE WHOLE BODY / PROCEDURE REASON: multiple diagnoses * * * * Physician Interpretation * * * * WHOLE BODY BONE SCAN CLINICAL HISTORY: Prostate cancer. TECHNIQUE: 22.3 mCi technetium 99m MDP IV. Planar images of the whole body obtained in anterior and posterior views at approximately 3 hours post injection. COMPARISON: No prior bone scan RESULT: Portions of the upper extremities are not visualized, and cannot be assessed for pathology. Whole body and static images demonstrate randomly distributed foci of uptake in the right ribs, subtle uptake in the scapular spine, increased uptake in the proximal sternum, small focal uptake at the right greater and lesser trochanters, subtle uptake at the posteromedial right ilium. Photopenia at the distal sternum is nonspecific. Foci of uptake in the spine may be degenerative and/or metastatic. Findings suggestive of left hydroureteronephrosis. Increased uptake in the shoulders, sternoclavicular joints, knees, feet is likely due to degenerative/arthritic changes. Radiographic confirmation may be performed, as clinically indicated. Soft tissue and urinary bladder uptake confirmed. IMPRESSION IMPRESSION: Findings suspicious for osseous metastases. Consider correlation with [facility]MA PET/CT. LEFT hydronephrosis/hydroureter onephrosis. Given the configuration of the urinary bladder distended secondary to outlet obstruction. Renal ultrasound, as indicated. COMMUNICATION: Communicated with Dr. JOHAN PAYNE on 02/20/2024 4:55 PM via [employer] staff message. Cost Estimating Manager: [facility]ITAL[facility]ern[facility] Transcribe Date/Time: Feb 20 2024 4:45P Dictated by : JUSTYN AYALA MD This examination was interpreted and the report reviewed and electronically signed by: JUSTYN AYALA MD on Feb 20 2024 4:55PM EST [facility] Radiology Study observation (narrative) [facility] Whole body Bone ViewsOrde red By: Ccf Provider on 02-20-2024 [facility] UA DIP, URINE (POC)on 2023 BILIRUBIN UA (POCT) Negative Negative [facility] CLARITY UA (POCT) [facility] COLOR UA (POCT) Yellow [facility] GLUCOSE UA (POCT) Negative Negative mg/dL [facility] Hemoglobin Ql (U) Trace-intact Abnormal Negative [facility] Interpretation and review of laboratory results Abnormal [facility] KETONE UA (POCT) Negative Negative mg/dL [facility] LEUKOC[facility] ([facility]) Negative Negative [facility] NITRITE UA (POCT) [facility] PH UA (POCT) 7.5 4.5 - 8.0 [facility] Protein Ql (U) 100 mg/dL Abnormal Negative [facility] SPECIFIC GRAVITY UA (POCT) 1.015 1.005 - 1.030 [facility] UROBILINOGEN UA (POCT) 0.2 Normal E.U./dL [facility] Location:[facility], [address], [address] [place] [address] [facility] UA DIP, URINE (POC)on 2023 BILIRUBIN UA (POCT) Negative Negative [facility] CLARITY UA (POCT) [facility] COLOR UA (POCT) Yellow [facility] GLUCOSE UA (POCT) Negative Negative mg/dL [facility] Hemoglobin Ql (U) Negative Negative [facility] KETONE UA (POCT) Negative Negative mg/dL [facility] LEUKOCYTES UA (POCT) Negative Negative [facility] NITRITE UA (POCT) Negative Negative [facility] PH UA (POCT) 7.0 4.5 - 8.0 [facility] Protein Ql (U) Negative Negative mg/dL [facility] SPECIFIC GRAVITY UA (POCT) 1.015 1.005 - 1.030 [facility] UROBILINOGEN UA (POCT) 0.2 Normal E.U./dL [facility] Location:[address], [address] [facility] POINT OF CARE [facility]oscopy [facility]atio [facility] Patient Name: Clint Villar Procedure Date: 12/18/2023 12:12 PM Date of : 1940 Admit Type: Outpatient Age: 83 Gender: Male Note Status: Finalized Procedure: Colonoscopy Indications: Screening for malignant neoplasm in the rectum Providers: Fernando Wen MD Patient Profile: This is an 83 year old male. Refer to note in patient chart for documentation of history and physical. Last Colonoscopy: none. The patient's first colonoscopy is today. Referring Physician: Fernando Wen MD (Referring MD), Cody Carrington (Referring ) Medicines: Fentanyl 50 micrograms IV, Midazolam 3 mg IV, Diphenhydramine 50 mg IV Complications: No immediate complications. Estimated blood loss: None. Requesting Provider: Procedure: Pre-Anesthesia Assessment: - Prior to the procedure, a History and Physical was performed, and patient medications and allergies were reviewed. The patient's tolerance of previous anesthesia was also reviewed. The risks and benefits of the procedure and the sedation options and risks were discussed with the patient. All questions were answered, and informed consent was obtained. Prior Anticoagulants: The patient has taken Eliquis (apixaban), last dose was 5 days prior to procedure. ASA Grade Assessment: III - A patient with severe systemic disease. After reviewing the risks and benefits, the patient was deemed in satisfactory condition to undergo the procedure. After I obtained informed consent, the scope was passed under direct vision. Throughout the procedure, the patient's blood pressure, pulse, and oxygen saturations were monitored continuously. The Colonoscope was introduced through the anus and advanced to the cecum, identified by appendiceal orifice and ileocecal valve. The colonoscopy was performed without difficulty. The patient tolerated the procedure well. The quality of the bowel preparation was adequate to identify polyps greater than 5 mm in size. The ileocecal valve, appendiceal orifice, and rectum were photographed. Moderate Sedation: The administration of moderate sedation was initiated at 12:23 PM. Moderate (conscious) sedation was personally administered by the endoscopist. The following parameters were monitored: oxygen saturation, heart rate, blood pressure, respiratory rate, EKG, adequacy of pulmonary ventilation, and response to care. Total physician intraservice time was 17 minutes. Findings: The digital rectal exam findings include increased firmness of the prostate. Non-bleeding internal hemorrhoids were found during retroflexion. The hemorrhoids were moderate and medium-sized. The exam was otherwise without abnormality. Impression: - Increased firmness of the prostate found on digital rectal exam. - Non-bleeding internal hemorrhoids. - The examination was otherwise normal. - No specimens collected. Recommendation: - Patient has a contact number available for emergencies. The signs and symptoms of potential delayed complications were discussed with the patient. Return to normal activities tomorrow. Written discharge instructions were provided to the patient. - Resume previous diet. - Continue present medications. - Repeat colonoscopy in 10 years for screening purposes. - Return to referring physician at appointment to be scheduled. - Refer to a urologist at the next available appointment. - Resume Eliquis (apixaban) today at prior dose. Procedure Code(s): --- Professional --- 38334, Colonoscopy, flexible; diagnostic, including collection of specimen(s) by brushing or washing, (more content not included)... [facility] Radiology Study observation (narrative) [facility] CT Colon and Rectum W air co ntrast PROrdered By: Cc Provider on 12-04-2023 Interpretation and review of laboratory results Abnormal [facility] Radiology Result ACTIONABLE Abnormal [facility] Comment on above: This report contains an incidental or actionable finding. This finding may be a new finding separate from the reason your provider ordered the imaging test or it may be an already known finding that needs additional or continued follow-up. Because of this incidental or actionable finding, you may need another test (imaging or a different type of test). Please contact your provider for the next steps. [facility] CT Colon and Rectum W air co ntrast PRon 12-04-2023 IMPRESSION: Broad-based mass in the mid rectum (up to 2.2 cm). Several perirectal soft tissue likely tumor deposits. Retroperitoneal and pelvic metastatic lymphadenopathy. Moderate right hydroureteronephrosis obstructed at the level of mid ureter encased by retroperitoneal lymphadenopathy. Recommend colonoscopy and/or oncologic consultation for further management. Colorectal Score: C4 - Colorectal mass, likely malignant. Recommend colonoscopy, surgical and/or oncologic consultation. Extracolonic Score: E4 - Likely clinically important; further workup needed. COMMUNICATION: Communicated with CODY CARRINGTON on 12/04/2023 2:56 PM via verbal communication. ACTIONABLE RESULT: FOLLOW-UP Acuity: Actionable Findings: Digestive Tract Routing Code: GI_1 Recommendation: Unlisted Recommendation (see report) Time Frame: as soon as possible, when the patient's clinical state allows. COMMUNICATION: Results will be communicated with the ordering provider via [employer] staff message or phone message by [employer] within 2 business days of report finalization. --END OF FINDING-- Cost Estimating Manager: ABRAHAN Transcribe Date/Time: Dec 04 2023 12:52P Dictated by : DIXIE FRANKS MD This examination was interpreted and the report reviewed and electronically signed by: DIXIE FRANKS MD on Dec 04 2023 3:02PM [facility] DIVISION OF RADIOLOGY * * *Final Report* * * DATE OF EXAM: Dec 04 2023 9:10AM [facility] 0542 - CT COLONOGRAPHY SCREEN WO IVCON / PROCEDURE REASON: Constipation, unspecified constipation type * * * * Physician Interpretation * * * * EXAMINATION: CT COLONOGRAPHY (LOW-DOSE ABDOMEN AND PELVIS CT WITHOUT IV CONTRAST) CLINICAL HISTORY: Positive cologuard. TECHNIQUE: Standard, thin-slice supine and prone/decubitus abdomen and pelvis spiral CT without IV contrast media and after insufflation of colon with CO2 using low-dose scanning techniques. Unenhanced and low-dose imaging is limited for the evaluation of some intra-abdominal and pelvic pathology. Standardized reporting is based upon CT Colonography Reporting and Data System (C-RADS). Contrast: Oral: Gastroview 30 mL, Readi-Cat-2 250 mL. IV: None. CT Radiation dose: Integrated dose-length product (DLP) for this visit = 420 mGy*cm. CT Dose Reduction Employed: Automated exposure control (AEC) COMPARISON: No relevant prior studies available. RESULT: Bowel Distention: Adequate Bowel Preparation: Adequate Colonography: Colon and Rectum: Broad-based nodular soft tissue lesion approximately 10 cm from the anal verge measures up to 2.2 x 1.5 cm (2:403 and 4:443). Associated mild asymmetric wall thickening within the surrounding rectum (4:431-446). Diverticula: None. Colorectal Score: C4 - Colorectal mass, likely malignant (lesion compromises bowel lumen, demonstrates extracolonic invasion). Abdomen/Pelvis: Liver: Unremarkable. Biliary: No radiodense gallstones. Spleen: No splenomegaly. Pancreas: Unremarkable. Adrenals: No mass. Kidneys: Moderate right hydronephrosis to the level of the mid ureter encased by right iliac chain lymphadenopathy as further described below. No left hydronephrosis. No calculus or contour deforming mass. Remaining GI Tract: No small bowel dilation. Mesentery/peritoneum: No ascites or fluid collection. Lymph Nodes: Multiple enlarged retroperitoneal and pelvic lymph nodes. Enlarged right common iliac chain lymph nodes encase the mid ureter with associated upstream hydroureteronephrosis. For reference: * 3.0 x 1.9 cm retrocaval node (4:195) * 3.5 x 1.7 cm retrocaval node (4:237) * 2.9 x 2.1 cm left para-aortic node (4:247) * 2.5 x 1.9 cm left para-aortic node (4:290) * 2.7 x 1.9 cm left common iliac node (4:332) * 4.4 x 2.0 cm left external iliac node (4:430) * 2.5 x 1.4 cm right external iliac node (4:416) Vasculature: Atherosclerotic calcifications without an abdominal aortic aneurysm. Pelvis: Several perirectal nodular soft tissue deposits, for example: 2.9 x 2.4 cm left perirectal soft tissue (4:433), 2.5 or 1.9 cm right perirectal soft tissue (4:455), and 3.5 x 2.5 cm posterior perirectal soft tissue extending superiorly along the presacral space suspected to represent extramural vascular invasion (4:433). Nondistended urinary bladder. No ascites or fluid collection. Bones/Soft Tissues: No significant findings. Lower thorax: Unremarkable. Warehouse Driver (topogram) images: DIVISION OF RADIOLOGY Provider, [facility] - 12/04/2023 * * *Final Report* * * DATE OF EXAM: Dec 04 2023 9:10AM [facility] 0542 - CT COLONOGRAPHY SCREEN WO IVCON / PROCEDURE REASON: Constipation, unspecified constipation type * * * * Physician Interpretation * * * * EXAMINATION: CT COLONOGRAPHY (LOW-DOSE ABDOMEN AND PELVIS CT WITHOUT IV CONTRAST) CLINICAL HISTORY: Positive cologuard. TECHNIQUE: Standard, thin-slice supine and prone/decubitus abdomen and pelvis spiral CT without IV contrast media and after insufflation of colon with CO2 using low-dose scanning techniques. Unenhanced and low-dose imaging is limited for the evaluation of some intra-abdominal and pelvic pathology. Standardized reporting is based upon CT Colonography Reporting and Data System (C-RADS). Contrast: Oral: Gastroview 30 mL, Readi-Cat-2 250 mL. IV: None. CT Radiation dose: Integrated dose-length product (DLP) for this visit = 420 mGy*cm. CT Dose Reduction Employed: Automated exposure control (AEC) COMPARISON: No relevant prior studies available. RESULT: Bowel Distention: Adequate Bowel Preparation: Adequate Colonography: Colon and Rectum: Broad-based nodular soft tissue lesion approximately 10 cm from the anal verge measures up to 2.2 x 1.5 cm (2:403 and 4:443). Associated mild asymmetric wall thickening within the surrounding rectum (4:431-446). Diverticula: None. Colorectal Score: C4 - Colorectal mass, likely malignant (lesion compromises bowel lumen, demonstrates extracolonic invasion). Abdomen/Pelvis: Liver: Unremarkable. Biliary: No radiodense gallstones. Spleen: No splenomegaly. Pancreas: Unremarkable. Adrenals: No mass. Kidneys: Moderate right hydronephrosis to the level of the mid ureter encased by right iliac chain lymphadenopathy as further described below. No left hydronephrosis. No calculus or contour deforming mass. Remaining GI Tract: No small bowel dilation. Mesentery/peritoneum: No ascites or fluid collection. Lymph Nodes: Multiple enlarged retroperitoneal and pelvic lymph nodes. Enlarged right common iliac chain lymph nodes encase the mid ureter with associated upstream hydroureteronephrosis. For reference: * 3.0 x 1.9 cm retrocaval node (4:195) * 3.5 x 1.7 cm retrocaval node (4:237) * 2.9 x 2.1 cm left para-aortic node (4:247) * 2.5 x 1.9 cm left para-aortic node (4:290) * 2.7 x 1.9 cm left common iliac node (4:332) * 4.4 x 2.0 cm left external iliac node (4:430) * 2.5 x 1.4 cm right external iliac node (4:416) Vasculature: Atherosclerotic calcifications without an abdominal aortic aneurysm. Pelvis: Several perirectal nodular soft tissue deposits, for example: 2.9 x 2.4 cm left perirectal soft tissue (4:433), 2.5 or 1.9 cm right perirectal soft tissue (4:455), and 3.5 x 2.5 cm posterior perirectal soft tissue extending superiorly along the presacral space suspected to represent extramural vascular invasion (4:433). Nondistended urinary bladder. No ascites or fluid collection. Bones/Soft Tissues: No significant findings. Lower thorax: Unremarkable. Warehouse Driver (topogram) images: IMPRESSION IMPRESSION: Broad-based mass in the mid rectum (up to 2.2 cm). Several perirectal soft tissue likely tumor deposits. Retroperitoneal and pelvic metastatic lymphadenopathy. Moderate right hydroureteronephrosis obstructed at the level of mid ureter encased by retroperitoneal lymphadenopathy. Recommend colonoscopy and/or oncologic consultation for further management. Colorectal Score: C4 - Colorectal mass, likely malignant. Recommend colonoscopy, surgical and/or oncologic consultation. Extracolonic Score: E4 - Likely clinically important; further workup needed. COMMUNICATION: Communicated with CODY CARRINGTON on 12/04/2023 2:56 PM via verbal communication. ACTIONABLE RESULT: FOLLOW-UP Acuity: Actionable Findings: [place] Routing Code: GI_1 Recommendation: Unlisted Recommendation (see report) Time Frame: as soon as possible, when the patient's clinical state allows. COMMUNICATION: Results will be communicated with the ordering provider via [employer] staff message or phone message by [employer] within 2 business days of report finalization. --END OF FINDING-- Cost Estimating Manager: ABRAHAN Transcribe Date/Time: Dec 04 2023 12:52P Dictated by : DIXIE FRANKS MD This examination was interpreted and the report reviewed and electronically signed by: DIXIE FRANKS MD on Dec 04 2023 3:02PM EST [facility] Radiology Study observation (narrative) [facility] CNOVon 10-22-2023 CNOV Office Visit (ELIEL BEARDENB) -- CLINT VILLAR ([id number]) 1940 M Date Time Provider Department 10/22/23 11:20 AM CHRIS BARRERA During your visit today, we recorded the following information about you: Pulse Blood pressure Weight Height 47/minute 152/98 95.3 kg 1.702 m Kristy Briscoe MA 10/22/2023 11:06 AM Signed Patient has no cardiac complaints today. Chris Barrera MD 10/22/2023 12:11 PM Signed PRIMARY CARE PHYSICIAN: Cody Carrington [address] [place] [address] REFERRING PHYSICIAN: Sruthi Larkin MD [address] [facility] [address] Patient Care Team: Cody Carrington MD as PCP - General (Internal Medicine) Sruthi Larkin as Specialty Medical Sonographer (Cardiology) CHIEF COMPLAINT: Evaluation of arrhythmia HISTORY OF PRESENT ILLNESS: Mr. Villar is a 83 year old male who presents today for evaluation of arrhythmia, history of atrial fibrillation, referred by Dr. Larkin of [facility]. Mr. Villar states he was diagnosed with the atrial fibrillation in early 2023. Primary care physician found him to be in atrial fibrillation, sent him to [place] [facility]. Admitted to hospital. Treated with medications including oral anticoagulation therapy (Eliquis), and increased metoprolol dosage. He was initially not much aware of the arrhythmia. But he has noticed that during episodes of atrial fibrillation he tires easily -- has effort intolerance, perhaps dizziness. No shortness of breath or chest pain. Episodes of atrial fibrillation have occurred about 3 or 4 times, lasting a few days sometimes. During episodes he is able to carry on with his day, he still works. He denies chest pain, shortness of breath, orthopnea, PND, syncope. No bleeding issues with the oral anticoagulation therapy. I have confirmed and edited as necessary, the PFSH and ROS obtained by others. 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 PAST SURGICAL HISTORY Procedure Laterality Date OPEN REPAIR OF ROTATOR CUFF ACUTE Right 2005 Rotator cuff repair, right TONSILLECTOMY PRIMARY/SECONDARY Tonsillectomy SOCIAL HISTORY Social History Tobacco Use Smoking status: Former Packs/day: 1.00 Years: 17.00 Additional pack years: 0.00 Total pack years: 17.00 Types: Cigarettes Quit date: 1977 Years since quittin.3 Smokeless tobacco: Never Vaping Use Vaping Use: Never used Substance Use Topics Alcohol use: Yes Alcohol/week: 1.0 standard drink of alcohol Types: 1 Cans of beer per week Drug use: Never FAMILY HISTORY Problem Relation Age of Onset other (Other) Mother no contact Coronary Artery Disease Father Heart Failure Father Diabetes Father ALLERGIES: ALLERGIES No Known Allergies MEDICATIONS: finasteride (PROSCAR) 5 mg tablet Take 1 tablet by mouth once daily apixaban (ELIQUIS) 5 mg tab(s) Take 1 tablet by mouth two times a day. metoprolol tartrate, short acting, (LOPRESSOR) 50 mg tablet Take 1 tablet by mouth two times a day. amLODIPine (NORVASC) 5 mg tablet Take 1 tablet by mouth once daily. levothyroxine (SYNTHROID) 112 mcg tablet Take 1 tablet by mouth once daily. Take on empty stomach. For thyroid benzonatate (TESSALON PERLES) 100 mg capsule Take 2 capsules by mouth three times a day as needed. hydrOXYzine HCl (ATARAX) 25 mg tablet Take 1 tablet by mouth daily at bedtime. losartan (COZAAR) 100 mg tablet Take 1 tablet by mouth once daily. valACYclovir (VALTREX) 500 mg tablet Take 1 tablet by mouth once daily. atorvastatin (LIPITOR) 40 mg tablet Take 1 tablet by mouth daily at bedtime. tamsulosin (FLOMAX) 0.4 mg Take 2 capsules by mouth daily at bedtime. cyclobenzaprine (FLEXERIL) 10 mg tablet Take 1 tablet by mouth twice daily as needed for muscle spasm. REVIEW OF SYSTEMS: Review of Systems Constitutional: Positive for malaise/fatigue (during episodes of atrial fibrillation). Negative for chills and fever. Respiratory: Negative for cough, hemoptysis, sputum production, shortness of breath and wheezing. Cardiovascular: Positive for palpitations. Negative for chest pain, orthopnea, (more content not included)... Normal [facility] ECG B/O W INTERP (MED OFFICE )on 10-22-2023 Sinus bradycardia 45 bpm; normal conduction intervals (OR 178 ms, QRS 88 ms); QTc 406 ms [facility] Tray 09-24-2023 CNPMadonna Telephone (AGCARDPOB ) -- CLINT VILLAR ([id number]) 1940 M Date Time Provider Department 09/24/23 DIXIE FRANCISCO AGCARDPOB During your visit today, we recorded the following information about you: Dixie Francisco MD 09/24/2023 3:26 PM Addendum This is a patient who sees Dr. Sruthi Larkin down in [place] and Dr. Larkin would like this patient be seen by one of the EP docs to assist with management of A-fib and decide on best management to maintain sinus rhythm. Please see if appointment is available in the next 1 to 4 weeks. Thanks Gabriel Francisco Addendum: Apparently Dr. Larkin is secondary was able to reach office and patient is scheduled for a an appointment in October which is randall Anaya Allergies As of Date: 09/24/2023 (No Known Allergies) Date Reviewed: 07/24/2023 Reviewed by: Leila Antonio LPN - Fully Assessed Reason for Visit: Appointment [[id number]] Prescriptions as of 09/26/2023 - apixaban (ELIQUIS) 5 mg tab(s) Take 1 tablet by mouth two times a day. - metoprolol tartrate, short acting, (LOPRESSOR) 50 mg tablet Take 1 tablet by mouth two times a day. - amLODIPine (NORVASC) 5 mg tablet Take 1 tablet by mouth once daily. - levothyroxine (SYNTHROID) 112 mcg tablet Take 1 tablet by mouth once daily. Take on empty stomach. For thyroid - benzonatate (TESSALON PERLES) 100 mg capsule Take 2 capsules by mouth three times a day as needed. - finasteride (PROSCAR) 5 mg tablet Take 1 tablet by mouth once daily. - hydrOXYzine HCl (ATARAX) 25 mg tablet Take 1 tablet by mouth daily at bedtime. - losartan (COZAAR) 100 mg tablet Take 1 tablet by mouth once daily. - valACYclovir (VALTREX) 500 mg tablet Take 1 tablet by mouth once daily. - atorvastatin (LIPITOR) 40 mg tablet Take 1 tablet by mouth daily at bedtime. - tamsulosin (FLOMAX) 0.4 mg Take 2 capsules by mouth daily at bedtime. - cyclobenzaprine (FLEXERIL) 10 mg tablet Take 1 tablet by mouth twice daily as needed for muscle spasm. Problem List As Of Date 09/24/2023 Noted Resolved Allergic contact dermatitis due to multiple age*03/08/2014 HTN (hypertension) [I10] 03/08/2014 Hyperlipidemia [E78.5] 03/08/2014 Recurrent cold sores [B00.1] 03/08/2014 05/23/2015 Hypothyroidism [E03.9] 07/21/2014 Herpes infection [B00.9] 05/23/2015 Muscle spasm of back [M62.830] 05/23/2015 Impaired fasting glucose [R73.01] 12/19/2016 Obesity, Class I, BMI 30-34.9 [E66.9] 01/29/2019 06/02/2020 Obesity, Class II, BMI 35-39.9 [E66.9] 06/02/2020 COVID-19 virus infection [U07.1] 07/03/2020 12/06/2020 Erectile dysfunction [N52.9] 06/21/2021 Urinary frequency [R35.0] 06/21/2021 Anemia [D64.9] 12/27/2021 Positive colorectal cancer screening using [place]*01/03/2023 Elevated PSA [R97.20] 01/09/2023 New onset atrial fibrillation (HCC) [I48.91] 06/23/2023 Obesity, Class I, BMI 30-34.9 [E66.9] 07/24/2023 Encounter Status:Closed by DIXIE FRANCISCO on 09/26/23 Normal [facility] Absolute lymphocyte countOrd ered By: Lor Aguilar on 02-13-2024 Lymphocytes Auto (Unsp spec) [#/Vol] 1.77 10*3/uL 0.83-4.51 [facility] Automated lymphocyte count a s percentage of total leukocytesOrdered By: Lor Aguilar on 06-17-2023 Lymphocytes/100 WBC Auto (Unsp spec) 20.2 % 19-41 [facility] Basophil percentageOrdered B y: Lor Aguilar on 06-17-2023 Basophil percentage 3.1 mg/dL 2.5-4.9 [facility] Basophils/100 WBC (Bld) 0.3 % 0-1 [facility] Bilirubin [Mass/Vol] 0.60 mg/dL 0.20-1.00 [facility] Comment on above: For patients on eltr ombopag therapy, use of Dimension Olar TBIL is not recommended. Chloride [Moles/Vol] 103 mmol/L 98-107 [facility] Eosinophils/100 WBC (Bld) 0.2 % 0-5 [facility] Glucose [Mass/Vol] 116 mg/dL 74-106 [facility] Comment on above: Fasting Glucose resu lt from 100 to 125 mg/dL suggests IMPAIRED HOMEOSTASIS per A.D.A. criteria. Hemoglobin (Bld) [Mass/Vol] 12.2 g/dL 13.0-16.5 [facility] Monocytes/100 WBC (Bld) 15.8 % 0-10 [facility] Neutrophils (Bld) [#/Vol] 5.6 10*3/uL 2.0-7.7 [facility] Neutrophils/100 WBC (Bld) 63.3 % 47-70 [facility] Potassium [Moles/Vol] 4.5 mmol/L 3.5-5.1 [facility] Protein [Mass/Vol] 6.3 g/dL 6.4-8.2 [facility] Sodium [Moles/Vol] 139 mmol/L 136-145 [facility] WBC (Bld) [#/Vol] 8.8 10*3/uL 4.4-11.0 [facility] Determination of erythrocyte mean corpuscular volume (MCV)Ordered By: Lor Aguilar on 06-17-2023 MCV (RBC) [Entitic vol] 94.3 fL 80-94 [facility] Erythrocyte distribution wid th ratioOrdered By: Lor Aguilar on 06-17-2023 Erythrocyte distribution width (RBC) [Ratio] 14.0 % 11.6-14.6 [facility] Erythrocyte distribution wid th standard deviationOrdered By: Lor Aguilar on 06-17-2023 Erythrocyte distribution width (RBC) [Entitic vol] 47.5 fL 35.1-43.9 [facility] Hematocrit Auto (Bld) [Volum e fraction]Ordered By: Lor Aguilar on 06-17-2023 Hematocrit (Bld) [Volume fraction] 36.3 % 40-54 [facility] Immature granulocytes/100 WB C Auto (Bld)Ordered By: Lor Aguilar on 06-17-2023 Immature granulocytes/100 WBC (Bld) 0.200 % 0.0-0.9 [facility] Comment on above: IG% - Immature Granu locytes (promyelocytes, myelocytes and metamyelocytes) > 1% indicates that a LEFT SHIFT is Present. Laboratory - Chemistry and C hemistry - challengeOrdered By: Lor Aguilar on 06-17-2023 Albumin/Globulin [Mass ratio] 1.0 {ratio} 0.9-2.4 [facility] ALP [Catalytic activity/Vol] 52 U/L 45-117 [facility] ALT [Catalytic activity/Vol] 15 U/L 16-61 [facility] CO2 [Moles/Vol] 29.0 mmol/L 21.0-32.0 [facility] Globulin (S) [Mass/Vol] 3.2 g/dL 2.2-4.2 [facility] Magnesium [Mass/Vol] 2.1 mg/dL 1.6-2.6 [facility] Urea nitrogen/Creatinine [Mass ratio] 16.0 mg/mg 10-20 [facility] Laboratory - Hematology and Cell countsOrdered By: Lor Aguilar on 06-17-2023 MCH (RBC) [Entitic mass] 31.7 pg 27.0-32.0 [facility] MCHC (RBC) [Mass/Vol] 33.6 g/dL 32-36 [facility] Nucleated RBC/100 WBC (Bld) [Ratio] 0 % 0-5 [facility] Platelet mean volume (Bld) [Entitic vol] 8.9 fL 6.2-12.0 [facility] Platelets (Bld) [#/Vol] 177 10*3/uL 150-450 [facility] No Panel InformationOrdered By: Lor Aguilar on 06-17-2023 Estimated Creatinine Clearance Calc 64.35 ml/min [facility] Estimated GFR (MDRD) Amer 92 mL/min >60 [facility] Comment on above: GFR Calc Estimated GFR (MDRD) Non-Af Amer 76 mL/min >60 [facility] Comment on above: Non- GFR Calc Troponin I High Sensitivity 32 pg/mL 3.0-78.0 [facility] Comment on above: Please Note: New Iv[place] t Units and Gender Specific Reference Ranges. For more information see Policy Stat Procedure Olar High Sensitivity Troponin (TNIH) and attachments. RBC Auto (Bld) [#/Vol]Ordere d By: Lor Aguilar on 06-17-2023 RBC (Bld) [#/Vol] 3.85 10*6/uL 4.6-6.2 [facility] Serum or plasma calcium fabienne urement (mass/volume)Ordered By: Lor Aguilar on 06-17-2023 Calcium [Mass/Vol] 8.7 mg/dL 8.5-10.1 [facility] Serum or plasma creatinine m easurement (mass/volume)Ordered By: Lor Aguilar on 06-17-2023 Creatinine [Mass/Vol] 1.00 mg/dL 0.70-1.30 [facility] Comment on above: The validity of the calculated GFR & GFRAA in patients over 70 years has not been determined. Clinical correlation is essential. Serum or plasma urea nitroge n measurement (mass/volume)Ordered By: Lor Aguilar on 06-17-2023 Urea nitrogen [Mass/Vol] 16 mg/dL 7-18 [facility] Thin prep Papanicolaou smear with manual screeningOrdered By: Lor Aguilar on 06-17-2023 Thin prep Papanicolaou smear with manual screening 3.1 g/dL 3.2-5.0 [facility] Thin prep Papanicolaou smear with manual screening 22 U/L 15-37 [facility] Thin prep Papanicolaou smear with manual screening 7 5-15 [facility] Absolute lymphocyte countOrd ered By: Zoë Sparks on 06-16-2023 Lymphocytes Auto (Unsp spec) [#/Vol] 2.08 10*3/uL 0.83-4.51 [facility] Automated lymphocyte count a s percentage of total leukocytesOrdered By: Zoë Sparks on 06-16-2023 Lymphocytes/100 WBC Auto (Unsp spec) 16.6 % 19-41 [facility] Basophil percentageOrdered B y: Zoë Sparks on 06-16-2023 Basophils/100 WBC (Bld) 0.3 % 0-1 [facility] Chloride [Moles/Vol] 100 mmol/L 98-107 [facility] Eosinophils/100 WBC (Bld) 0.2 % 0-5 [facility] Glucose [Mass/Vol] 125 mg/dL 74-106 [facility] Comment on above: Fasting Glucose resu lt from 100 to 125 mg/dL suggests IMPAIRED HOMEOSTASIS per A.D.A. criteria. Hemoglobin (Bld) [Mass/Vol] 14.0 g/dL 13.0-16.5 [facility] Monocytes/100 WBC (Bld) 13.0 % 0-10 [facility] Neutrophils (Bld) [#/Vol] 8.7 10*3/uL 2.0-7.7 [facility] Neutrophils/100 WBC (Bld) 69.4 % 47-70 [facility] Potassium [Moles/Vol] 4.0 mmol/L 3.5-5.1 [facility] Sodium [Moles/Vol] 135 mmol/L 136-145 [facility] WBC (Bld) [#/Vol] 12.5 10*3/uL 4.4-11.0 [facility] Blood manual differential co mment interpretation (narrative result)Ordered By: Zoë Sparks on 06-16-2023 Manual differential comment Ricky (Bld) [Interp] SCANNED [facility] Comment on above: MONOCYTOSIS NOTED Determination of erythrocyte mean corpuscular volume (MCV)Ordered By: Zoë Sparks on 06-16-2023 MCV (RBC) [Entitic vol] 95.7 fL 80-94 [facility] Erythrocyte distribution wid th ratioOrdered By: Zoë Sparks on 06-16-2023 Erythrocyte distribution width (RBC) [Ratio] 14.0 % 11.6-14.6 [facility] Erythrocyte distribution wid th standard deviationOrdered By: Zoë Sparks on 06-16-2023 Erythrocyte distribution width (RBC) [Entitic vol] 49.2 fL 35.1-43.9 [facility] Hematocrit Auto (Bld) [Volum e fraction]Ordered By: Zoë Sparks on 06-16-2023 Hematocrit (Bld) [Volume fraction] 42.6 % 40-54 [facility] Immature granulocytes/100 WB C Auto (Bld)Ordered By: [facility] on 06-16-2023 Immature granulocytes/100 WBC (Bld) 0.500 % 0.0-0.9 [facility] Comment on above: IG% - Immature Granu locytes (promyelocytes, myelocytes and metamyelocytes) > 1% indicates that a LEFT SHIFT is Present. Laboratory - Chemistry and C hemistry - challengeOrdered By: Zoë Sparks on 06-16-2023 CO2 [Moles/Vol] 25.0 mmol/L 21.0-32.0 [facility] Urea nitrogen/Creatinine [Mass ratio] 14.1 mg/mg 10-20 [facility] Laboratory - Hematology and Cell countsOrdered By: Zoë Sparks on 06-16-2023 MCH (RBC) [Entitic mass] 31.5 pg 27.0-32.0 [facility] MCHC (RBC) [Mass/Vol] 32.9 g/dL 32-36 [facility] Nucleated RBC/100 WBC (Bld) [Ratio] 0 % 0-5 [facility] Platelet mean volume (Bld) [Entitic vol] 9.3 fL 6.2-12.0 [facility] Platelets (Bld) [#/Vol] 191 10*3/uL 150-450 [facility] No Panel InformationOrdered By: Zoë Sparks on 06-16-2023 Estimated Creatinine Clearance Calc 45.74 ml/min [facility] Estimated GFR (MDRD) Amer 62 mL/min >60 [facility] Comment on above: GFR Calc Estimated GFR (MDRD) Non-Af Amer 51 mL/min >60 [facility] Comment on above: Non- GFR Calc Troponin I High Sensitivity 28 pg/mL 3.0-78.0 [facility] Comment on above: Please Note: New [place] t Units and Gender Specific Reference Ranges. For more information see Policy Stat Procedure Olar High Sensitivity Troponin (TNIH) and attachments. RBC Auto (Bld) [#/Vol]Ordere d By: Zoë Sparks on 06-16-2023 RBC (Bld) [#/Vol] 4.45 10*6/uL 4.6-6.2 [facility] Review by pathologistOrdered By: Zoë Sparks on 06-16-2023 Pathologist review Ricky (Unsp spec) [Interp] Francesca sims [facility] Pathologist review Ricky (Unsp spec) [Interp] Reviewed [facility] Comment on above: Previous reported re sult: Francesca sims Edited by: RGOOD on 06/17/23:1424Leukocytosis.Macrocytosis.Clinical correlation necessary.Sanket Landon M.D. 06/17/23 AMENDED REPORT 06/17/23 1424 PATH REV previously reported as: Francesca sims Serum or plasma calcium fabienne urement (mass/volume)Ordered By: Zoë Sparks on 06-16-2023 Calcium [Mass/Vol] 9.7 mg/dL 8.5-10.1 [facility] Serum or plasma creatinine m easurement (mass/volume)Ordered By: Zoë Sparks on 06-16-2023 Creatinine [Mass/Vol] 1.42 mg/dL 0.70-1.30 [facility] Comment on above: The validity of the calculated GFR & GFRAA in patients over 70 years has not been determined. Clinical correlation is essential. Serum or plasma thyroid stim ulating hormone (TSH) measurement (units/volume)Ordered By: Lor Aguilar on 06-16-2023 TSH Qn 3.42 uIU/mL 0.358-3.74 [facility] Serum or plasma urea nitroge n measurement (mass/volume)Ordered By: Zoë Sparks on 06-16-2023 Urea nitrogen [Mass/Vol] 20 mg/dL 7-18 [facility] Thin prep Papanicolaou smear with manual screeningOrdered By: Zoë Sparks on 02-12-2024 Thin prep Papanicolaou smear with manual screening 10 5-15 [facility] XR Chest PA and Lateralon IMPRESSION: No acute radiographic abnormality. Cost Estimating Manager: ABRAHAN Transcribe Date/Time: May 08 2023 2:04P Dictated by : MARSHALL LARA MD This examination was interpreted and the report reviewed and electronically signed by: MARSHALL LARA MD on May 08 2023 2:04PM [facility] DIVISION OF RADIOLOGY * * *Final Report* * * DATE OF EXAM: May 08 2023 2:03PM WOX [id number] - XR CHEST 2V FRONTAL/LAT / PROCEDURE REASON: Acute cough * * * * Physician Interpretation * * * * EXAMINATION: CHEST RADIOGRAPH (2 VIEW FRONTAL & LATERAL) CLINICAL HISTORY: Acute cough MQ: XC2_6 EXAM DATE/TIME: 05/08/2023 2:03 PM COMPARISON: Chest radiograph 04/16/2017 RESULT: Lines, tubes, and devices: None. Lungs and pleura: No consolidation. No lung mass. No pleural effusion. No pneumothorax. Cardiomediastinal silhouette: Stable cardiomediastinal silhouette. Bones and soft tissues: Unremarkable. DIVISION OF RADIOLOGY Provider, [facility] - 05/08/2023 * * *Final Report* * * DATE OF EXAM: May 08 2023 2:03PM WOX [id number] - XR CHEST 2V FRONTAL/LAT / PROCEDURE REASON: Acute cough * * * * Physician Interpretation * * * * EXAMINATION: CHEST RADIOGRAPH (2 VIEW FRONTAL & LATERAL) CLINICAL HISTORY: Acute cough MQ: XC2_6 EXAM DATE/TIME: 05/08/2023 2:03 PM COMPARISON: Chest radiograph 04/16/2017 RESULT: Lines, tubes, and devices: None. Lungs and pleura: No consolidation. No lung mass. No pleural effusion. No pneumothorax. Cardiomediastinal silhouette: Stable cardiomediastinal silhouette. Bones and soft tissues: Unremarkable. IMPRESSION IMPRESSION: No acute radiographic abnormality. Cost Estimating Manager: ABRAHAN Transcribe Date/Time: May 08 2023 2:04P Dictated by : MARSHALL LARA MD This examination was interpreted and the report reviewed and electronically signed by: MARSHALL LARA MD on May 08 2023 2:04PM EST [facility] Radiology Study observation (narrative) [facility] XR Chest PA and LateralOrder ed By: [facility] Provider on 05-08-2023 [facility] UA DIP, URINE (POC)on 2022 BILIRUBIN UA (POCT) Negative Negative [facility] CLARITY UA (POCT) Clear [facility] COLOR UA (POCT) Yellow [facility] GLUCOSE UA (POCT) Negative Negative mg/dL [facility] Hemoglobin Ql (U) Moderate Abnormal Negative [facility] KETONE UA (POCT) Negative Negative mg/dL [facility] LEUKOCYTES [facility] (POCT) [facility] ([facility]) Negative Negative [facility] PH UA (POCT) 6.0 4.5 - 8.0 [facility] Protein Ql (U) Negative Negative mg/dL [facility] SPECIFIC GRAVITY UA (POCT) 1.025 1.005 - 1.030 [facility] UROBILINOGEN UA (POCT) 0.2 E.U./dL Normal E.U./dL [facility] Vital Signs Date Time Vital Sign Value Performing Clinician Faci lity 01-04-2025 09:39-0400 Diastolic blood pressure 75 mm[Hg] Cody Carrington MD Work Phone: [facility] 01-04-2025 09:39-0400 Heart rate 47 /min Cody Carrington MD Work Phone: [facility] 01-04-2025 09:39-0400 Systolic blood pressure 138 mm[Hg] Cody Carrington MD Work Phone: [facility] 01-04-2025 09:25-0400 Body height 167 cm Cody Carrington MD Work Phone: [facility] 01-04-2025 09:25-0400 Body mass index (BMI) [Ratio] 32.38 kg/m2 Cody Carrington MD Work Phone: [facility] 01-04-2025 09:25-0400 Body weight 90.3 kg Cody Carrington MD Work Phone: [facility] 11-22-2024 13:49-0400 Body height 167.[address] Cody Carrington MD Work Phone: [facility] 11-22-2024 13:49-0400 Body mass index (BMI) [Ratio] 32.4 kg/m2 Dr. Cody Carrington MD Work Phone: [facility] 11-22-2024 13:49-0400 Body weight 91.[address] Cody Carrington MD Work Phone: [facility] 11-22-2024 13:49-0400 Diastolic blood pressure 76 mm[Hg] Dr. Cody Carrington MD Work Phone: [facility] 11-22-2024 13:49-0400 Heart rate 52 /min Dr. Cody Carrington MD Work Phone: [facility] 11-22-2024 13:49-0400 Respiratory rate 16 /min Dr. Cody Carrington MD Work Phone: [facility] 11-22-2024 13:49-0400 Systolic blood pressure 159 mm[Hg] Dr. Cody Carrington MD Work Phone: [facility] 11-12-2024 08:52-0400 Body height 167 cm Johan Payne MD Work Phone: [facility] 11-12-2024 08:52-0400 Body mass index (BMI) [Ratio] 32.61 kg/m2 Johan Payne MD Work Phone: [facility] 11-12-2024 08:52-0400 Body temperature 97.2 [degF] Johan Payne MD Work Phone: [facility] 11-12-2024 08:52-0400 Body weight 90.95 kg Johan Payne MD Work Phone: [facility] 11-12-2024 08:52-0400 Diastolic blood pressure 79 mm[Hg] Johan Payne MD Work Phone: [facility] 11-12-2024 08:52-0400 Heart rate 51 /min Johan Payne MD Work Phone: [facility] 11-12-2024 08:52-0400 SaO2% (BldA) [Mass fraction] 97 % Johan Payne MD Work Phone: [facility] 11-12-2024 08:52-0400 Systolic blood pressure 151 mm[Hg] Johan Payne MD Work Phone: [facility] 10-27-2024 15:43-0400 Diastolic blood pressure 74 mm[Hg] Cody Carrington MD Work Phone: [facility] 10-27-2024 15:43-0400 Heart rate 51 /min Cody Carrington MD Work Phone: [facility] 10-27-2024 15:43-0400 Systolic blood pressure 150 mm[Hg] Cody Carrington MD Work Phone: [facility] 10-27-2024 15:32-0400 Body mass index (BMI) [Ratio] 32.52 kg/m2 Cody Carrington MD Work Phone: [facility] 10-27-2024 15:32-0400 Body weight 91.4 kg Cody Carrington MD Work Phone: [facility] 07-15-2024 10:15-0400 Body height 167.6 cm Radha Larsen MD Work Phone: [facility] 07-15-2024 10:15-0400 Body mass index (BMI) [Ratio] 32.28 kg/m2 Radha Larsen MD Work Phone: [facility] 07-15-2024 10:15-0400 Body weight 90.72 kg Radha Larsen MD Work Phone: [facility] 07-15-2024 10:15-0400 Diastolic blood pressure 58 mm[Hg] Radha Larsen MD Work Phone: [facility] 07-15-2024 10:15-0400 Systolic blood pressure 132 mm[Hg] Radha Larsen MD Work Phone: [facility] 07-09-2024 08:24-0500 Body mass index (BMI) [Ratio] 32.53 kg/m2 Johan Payne MD Work Phone: [facility] 07-09-2024 08:24-0500 Body temperature 97 [degF] Johan Payne MD Work Phone: [facility] 07-09-2024 08:24-0500 Body weight 90.72 kg Johan Payne MD Work Phone: [facility] 07-09-2024 08:24-0500 Diastolic blood pressure 67 mm[Hg] Johan Payne MD Work Phone: [facility] 07-09-2024 08:24-0500 Heart rate 61 /min Johan Payne MD Work Phone: [facility] 07-09-2024 08:24-0500 SaO2% (BldA) [Mass fraction] 97 % Johan Payne MD Work Phone: [facility] 07-09-2024 08:24-0500 Systolic blood pressure 125 mm[Hg] Johan Payne MD Work Phone: [facility] 06-16-2024 14:51-0500 Body mass index (BMI) [Ratio] 32.09 kg/m2 Valentina Clutter PA-C Work Phone: [facility] 06-16-2024 14:51-0500 Body temperature 98.2 [degF] Valentina Clutter PA-C Work Phone: [facility] 06-16-2024 14:51-0500 Body weight 89.5 kg Valentina Clutter PA-C Work Phone: [facility] 06-16-2024 14:51-0500 Diastolic blood pressure 61 mm[Hg] Valentina Clutter PA-C Work Phone: [facility] 06-16-2024 14:51-0500 Heart rate 58 /min Valentina Clutter PA-C Work Phone: [facility] 06-16-2024 14:51-0500 Respiratory rate 18 /min Valentina Clutter PA-C Work Phone: [facility] 06-16-2024 14:51-0500 SaO2% (BldA) [Mass fraction] 97 % Valentina Clutter PA-C Work Phone: [facility] 06-16-2024 14:51-0500 Systolic blood pressure 114 mm[Hg] Valentina Clutter PA-C Work Phone: [facility] 05-28-2024 08:50-0500 Body height 167 cm Pina Schuster Work Phone: [facility] 05-28-2024 08:50-0500 Body mass index (BMI) [Ratio] 31.23 kg/m2 Pina Schuster Work Phone: [facility] 05-28-2024 08:50-0500 Body temperature 97.11 [degF] Pina Schuster Work Phone: [facility] 05-28-2024 08:50-0500 Body weight 87.09 kg Pina Schuster Work Phone: [facility] 05-28-2024 08:50-0500 Diastolic blood pressure 78 mm[Hg] Pina Schuster Work Phone: [facility] 05-28-2024 08:50-0500 Heart rate 82 /min Pina Schuster Work Phone: [facility] 05-28-2024 08:50-0500 SaO2% (BldA) [Mass fraction] 98 % Pina Schuster Work Phone: [facility] 05-28-2024 08:50-0500 Systolic blood pressure 129 mm[Hg] Pina Schuster Work Phone: [facility] 05-21-2024 08:15-0500 Body mass index (BMI) [Ratio] 30.74 kg/m2 Cody Carrington MD Work Phone: [facility] 05-21-2024 08:15-0500 Body temperature 97.3 [degF] Cody Carrington MD Work Phone: [facility] 05-21-2024 08:15-0500 Body weight 86.4 kg Cody Carrington MD Work Phone: [facility] 05-21-2024 08:15-0500 Diastolic blood pressure 64 mm[Hg] Cody Carrington MD Work Phone: [facility] 05-21-2024 08:15-0500 Heart rate 49 /min Cody Carrington MD Work Phone: [facility] 05-21-2024 08:15-0500 Respiratory rate 14 /min Cody Carrington MD Work Phone: [facility] 05-21-2024 08:15-0500 SaO2% (BldA) [Mass fraction] 98 % Cody Carrington MD Work Phone: [facility] 05-21-2024 08:15-0500 Systolic blood pressure 116 mm[Hg] Cody Carrington MD Work Phone: [facility] 04-26-2024 13:34-0500 Body mass index (BMI) [Ratio] 30.78 kg/m2 Leela Drake [employer] Work Phone: [facility] 04-26-2024 13:34-0500 Body temperature 97.9 [degF] Leela Drake [employer] Work Phone: [facility] 04-26-2024 13:34-0500 Body weight 86.5 kg Leela Drake [employer] Work Phone: [facility] 04-26-2024 13:34-0500 Diastolic blood pressure 74 mm[Hg] Leela Drake [employer] Work Phone: [facility] 04-26-2024 13:34-0500 Heart rate 59 /min Leela Drake [employer] Work Phone: [facility] 04-26-2024 13:34-0500 Respiratory rate 16 /min Leela Christopher [employer] Work Phone: [facility] 04-26-2024 13:34-0500 SaO2% (BldA) [Mass fraction] 96 % Leela Christopher [employer] Work Phone: [facility] 04-26-2024 13:34-0500 Systolic blood pressure 126 mm[Hg] Leela Christopher [employer] Work Phone: [facility] 03-17-2024 15:21-0500 Body temperature 97.59 [degF] Rodolfo Aguilar MD Work Phone: [facility] 03-17-2024 15:21-0500 Diastolic blood pressure 57 mm[Hg] Rodolfo Aguilar MD Work Phone: [facility] 03-17-2024 15:21-0500 Heart rate 77 /min Rodolfo Aguilar MD Work Phone: [facility] 03-17-2024 15:21-0500 Respiratory rate 15 /min Rodolfo Aguilar MD Work Phone: [facility] 03-17-2024 15:21-0500 SaO2% (BldA) [Mass fraction] 96 % Rodolfo Aguilar MD Work Phone: [facility] 03-17-2024 15:21-0500 Systolic blood pressure 116 mm[Hg] Rodolfo Aguilar MD Work Phone: [facility] 03-09-2024 13:24-0500 Body temperature 98.01 [degF] Rodolfo Aguilar MD Work Phone: [facility] 03-09-2024 13:24-0500 Diastolic blood pressure 65 mm[Hg] Rodolfo Aguilar MD Work Phone: [facility] 03-09-2024 13:24-0500 Heart rate 50 /min Rodolfo Aguilar MD Work Phone: [facility] Comment on above: normal for pt 03-09-2024 13:24-0500 SaO2% (BldA) [Mass fraction] 97 % Rodolfo Aguilar MD Work Phone: [facility] 03-09-2024 13:24-0500 Systolic blood pressure 141 mm[Hg] Rodolfo Aguilar MD Work Phone: [facility] 03-01-2024 10:12-0400 Body mass index (BMI) [Ratio] 32.12 kg/m2 Rodolfo Aguilar MD Work Phone: [facility] 03-01-2024 10:12-0400 Body temperature 97.39 [degF] Rodolfo Aguilar MD Work Phone: [facility] 03-01-2024 10:12-0400 Body weight 90.27 kg Rodolfo Aguilar MD Work Phone: [facility] 03-01-2024 10:12-0400 Diastolic blood pressure 74 mm[Hg] Rodolfo Aguilar MD Work Phone: [facility] 03-01-2024 10:12-0400 Heart rate 52 /min Rodolfo Aguilar MD Work Phone: [facility] 03-01-2024 10:12-0400 Respiratory rate 15 /min Rodolfo Aguilar MD Work Phone: [facility] 03-01-2024 10:12-0400 SaO2% (BldA) [Mass fraction] 96 % Rodolfo Aguilar MD Work Phone: [facility] 03-01-2024 10:12-0400 Systolic blood pressure 137 mm[Hg] Rodolfo Aguilar MD Work Phone: [facility] 02-27-2024 08:22-0400 Body mass index (BMI) [Ratio] 32.69 kg/m2 Johan Pyane MD Work Phone: [facility] 02-27-2024 08:22-0400 Body temperature 97 [degF] Johan Payne MD Work Phone: [facility] 02-27-2024 08:22-0400 Body weight 90.49 kg Johan Payne MD Work Phone: [facility] 02-27-2024 08:22-0400 Diastolic blood pressure 84 mm[Hg] Johan Payne MD Work Phone: [facility] 02-27-2024 08:22-0400 Heart rate 50 /min Johan Payne MD Work Phone: [facility] 02-27-2024 08:22-0400 SaO2% (BldA) [Mass fraction] 99 % Johan Payne MD Work Phone: [facility] 02-27-2024 08:22-0400 Systolic blood pressure 135 mm[Hg] Johan Payne MD Work Phone: [facility] 02-26-2024 10:18-0400 Diastolic blood pressure 75 mm[Hg] Cody Carrington MD Work Phone: [facility] 02-26-2024 10:18-0400 Heart rate 51 /min Cody Carrington MD Work Phone: [facility] 02-26-2024 10:18-0400 Systolic blood pressure 136 mm[Hg] Cody Carrington MD Work Phone: [facility] 02-26-2024 10:08-0400 Body mass index (BMI) [Ratio] 32.3 kg/m2 Cody Carrington MD Work Phone: [facility] 02-26-2024 10:08-0400 Body temperature 97.81 [degF] Cody Carrington MD Work Phone: [facility] 02-26-2024 10:08-0400 Body weight 89.4 kg Cody Carrington MD Work Phone: [facility] 02-13-2024 15:05-0400 Body mass index (BMI) [Ratio] 33.1 kg/m2 Johan Payne MD Work Phone: [facility] 02-13-2024 15:05-0400 Body temperature 97.3 [degF] Johan Payne MD Work Phone: [facility] 02-13-2024 15:05-0400 Body weight 91.63 kg Johan Payne MD Work Phone: [facility] 02-13-2024 15:05-0400 Diastolic blood pressure 76 mm[Hg] Johan Payne MD Work Phone: [facility] 02-13-2024 15:05-0400 Heart rate 56 /min Johan Payne MD Work Phone: [facility] 02-13-2024 15:05-0400 SaO2% (BldA) [Mass fraction] 100 % Johan Payne MD Work Phone: [facility] 02-13-2024 15:05-0400 Systolic blood pressure 139 mm[Hg] Johan Payne MD Work Phone: [facility] 01-02-2024 12:55-0400 Body height 166.4 cm Johan Payne MD Work Phone: [facility] 01-02-2024 12:55-0400 Body mass index (BMI) [Ratio] 34.82 kg/m2 Johan Payne MD Work Phone: [facility] 01-02-2024 12:55-0400 Body temperature 97.39 [degF] Johan Payne MD Work Phone: [facility] 01-02-2024 12:55-0400 Body weight 96.39 kg Johan Payne MD Work Phone: [facility] 01-02-2024 12:55-0400 Diastolic blood pressure 69 mm[Hg] Johan Payne MD Work Phone: [facility] 01-02-2024 12:55-0400 Heart rate 44 /min Johan Payne MD Work Phone: [facility] 01-02-2024 12:55-0400 SaO2% (BldA) [Mass fraction] 97 % Johan Payne MD Work Phone: [facility] 01-02-2024 12:55-0400 Systolic blood pressure 159 mm[Hg] Johan Payne MD Work Phone: [facility] 12-31-2023 10:02-0400 Body height 170.2 cm Devin Cortes MD Work Phone: [facility] 12-31-2023 10:02-0400 Body mass index (BMI) [Ratio] 32.89 kg/m2 Devin Cortes MD Work Phone: [facility] 12-31-2023 10:02-0400 Body weight 95.25 kg Devin Cortes MD Work Phone: [facility] 12-18-2023 13:07-0400 Diastolic blood pressure 74 mm[Hg] Fernando Wen MD Work Phone: [facility] 12-18-2023 13:07-0400 Heart rate 49 /min Fernando Wen MD Work Phone: [facility] 12-18-2023 13:07-0400 Respiratory rate 16 /min Fernando Wen MD Work Phone: [facility] 12-18-2023 13:07-0400 SaO2% (BldA) [Mass fraction] 93 % Fernando Wen MD Work Phone: [facility] 12-18-2023 13:07-0400 Systolic blood pressure 165 mm[Hg] Fernando Wen MD Work Phone: [facility] 12-18-2023 11:26-0400 Body mass index (BMI) [Ratio] 31.66 kg/m2 Fernando Wen MD Work Phone: [facility] 12-18-2023 11:26-0400 Body temperature 97.39 [degF] Fernando Wen MD Work Phone: [facility] 12-18-2023 11:26-0400 Body weight 91.7 kg Fernando Wen MD Work Phone: [facility] 12-08-2023 13:19-0400 Body mass index (BMI) [Ratio] 31.67 kg/m2 Fernando Wen MD Work Phone: [facility] 12-08-2023 13:19-0400 Body temperature 97.39 [degF] Fernando Wen MD Work Phone: [facility] 12-08-2023 13:19-0400 Body weight 91.72 kg Fernando Wen MD Work Phone: [facility] 12-08-2023 13:19-0400 Diastolic blood pressure 66 mm[Hg] Fernando Wen MD Work Phone: [facility] 12-08-2023 13:19-0400 Heart rate 51 /min Fernando Wen MD Work Phone: [facility] 12-08-2023 13:19-0400 SaO2% (BldA) [Mass fraction] 96 % Fernando Wen MD Work Phone: [facility] 12-08-2023 13:19-0400 Systolic blood pressure 138 mm[Hg] Fernando Wen MD Work Phone: [facility] 10-22-2023 11:00-0400 Body height 170.2 cm Chris Barrera MD Work Phone: [facility] 10-22-2023 11:00-0400 Body mass index (BMI) [Ratio] 32.89 kg/m2 Chris Barrera MD Work Phone: [facility] 10-22-2023 11:00-0400 Body weight 95.25 kg Chris Barrera MD Work Phone: [facility] 10-22-2023 11:00-0400 Diastolic blood pressure 98 mm[Hg] Chris Barrera MD Work Phone: [facility] 10-22-2023 11:00-0400 Heart rate 47 /min Chris Barrera MD Work Phone: [facility] 10-22-2023 11:00-0400 SaO2% (BldA) [Mass fraction] 95 % Chris Barrera MD Work Phone: [facility] 10-22-2023 11:00-0400 Systolic blood pressure 152 mm[Hg] Chris Barrera MD Work Phone: [facility] 07-24-2023 15:56-0400 Diastolic blood pressure 68 mm[Hg] Cody Carrington MD Work Phone: [facility] 07-24-2023 15:56-0400 Systolic blood pressure 136 mm[Hg] Cody Carrington MD Work Phone: [facility] 07-24-2023 15:34-0400 Body temperature 97.39 [degF] Cody Carrington MD Work Phone: [facility] 07-24-2023 15:34-0400 Body weight 96.62 kg Cody Carrington MD Work Phone: [facility] 07-24-2023 15:34-0400 Heart rate 52 /min Cody Carrington MD Work Phone: [facility] 07-24-2023 15:34-0400 Respiratory rate 12 /min Cody Carrington MD Work Phone: [facility] 06-23-2023 14:56-0500 Body temperature 97.9 [degF] Cody Carrington MD Work Phone: [facility] 06-23-2023 14:56-0500 Body weight 94.35 kg Cody Carrington MD Work Phone: [facility] 06-23-2023 14:56-0500 Diastolic blood pressure 56 mm[Hg] Cody Carrington MD Work Phone: [facility] 06-23-2023 14:56-0500 Heart rate 52 /min Cody Carrington MD Work Phone: [facility] 06-23-2023 14:56-0500 Respiratory rate 12 /min Cody Carrington MD Work Phone: [facility] 06-23-2023 14:56-0500 Systolic blood pressure 120 mm[Hg] Cody Carrington MD Work Phone: [facility] 06-17-2023 15:23-0500 Body temperature 97.5 [degF] Dr. Cody Carrington Work Phone: 2(050)941-260353 [place] [address] 06-17-2023 15:23-0500 Diastolic blood pressure 60 mm[Hg] Dr. Cody Carrington Work Phone: 7(873)420-341053 [place] [address] 06-17-2023 15:23-0500 Heart rate 56 /min Dr. Cody Carrington Work Phone: 5(218)941-049053 [place] [address] 06-17-2023 15:23-0500 Respiratory rate 16 /min Dr. Cody Carrington Work Phone: 6(428)614-094753 [place] [address] 06-17-2023 15:23-0500 SaO2% (BldA) [Mass fraction] 96 % Dr. Cody Carrington Work Phone: 8(037)105-371953 [place] [address] 06-17-2023 15:23-0500 Systolic blood pressure 121 mm[Hg] Dr. Cody Carrington Work Phone: 6(818)140-342353 [place] [address] 06-17-2023 11:46-0500 Body height 170.[address] Cody Carrington Work Phone: 0(576)170-915953 [place] [address] 06-17-2023 11:46-0500 Body weight 93.[address] Cody Carrington Work Phone: 9(971)713-513453 [place] [address] 06-16-2023 19:57-0500 Body mass index (BMI) [Ratio] 32.4 kg/m2 Dr. Cody Carrington Work Phone: 7(213)867-413153 [place] [address] 06-16-2023 18:58-0500 Diastolic blood pressure 73 mm[Hg] Dr. Cody Carrington Work Phone: 0(162)867-553353 [place] [address] 06-16-2023 18:58-0500 Heart rate 109 /min Dr. Cody Carrington Work Phone: 6(248)249-452353 [place] [address] 06-16-2023 18:58-0500 Respiratory rate 14 /min Dr. Cody Carrington Work Phone: 1(031)776-813153 [place] [address] 06-16-2023 18:58-0500 SaO2% (BldA) [Mass fraction] 97 % Dr. Cody Carrington Work Phone: [facility] 06-16-2023 18:58-0500 Systolic blood pressure 94 mm[Hg] Dr. Cody Carrington Work Phone: [facility] 06-16-2023 15:39-0500 Body height 170.[address] Cody Carrington Work Phone: [facility] 06-16-2023 15:39-0500 Body mass index (BMI) [Ratio] 33 kg/m2 Dr. oCdy Carrington Work Phone: [facility] 06-16-2023 15:39-0500 Body temperature 96.5 [degF] Dr. Cody Carrington Work Phone: [facility] 06-16-2023 15:39-0500 Body weight 95.[address] Cody Carrington Work Phone: [facility] 06-16-2023 14:30-0500 Diastolic blood pressure 74 mm[Hg] Cody Carrington MD Work Phone: [facility] 06-16-2023 14:30-0500 Heart rate 77 /min Cody Carrington MD Work Phone: [facility] 06-16-2023 14:30-0500 Systolic blood pressure 124 mm[Hg] Cody Carrington MD Work Phone: [facility] 06-16-2023 14:26-0500 Body temperature 97.3 [degF] Cody Carrington MD Work Phone: [facility] 06-16-2023 14:26-0500 Body weight 95.25 kg Cody Carrington MD Work Phone: [facility] 02-04-2023 08:06-0400 Body height 170.2 cm Robert Toscano PA-C Work Phone: [facility] 02-04-2023 08:06-0400 Body temperature 98.01 [degF] Robert Toscano PA-C Work Phone: [facility] 02-04-2023 08:06-0400 Body weight 98.7 kg Robert Toscano PA-C Work Phone: [facility] 02-04-2023 08:06-0400 Diastolic blood pressure 70 mm[Hg] Robert Toscano PA-C Work Phone: [facility] 02-04-2023 08:06-0400 Heart rate 52 /min Robert Toscano PA-C Work Phone: [facility] 02-04-2023 08:06-0400 SaO2% (BldA) [Mass fraction] 94 % Robert Toscano PA-C Work Phone: [facility] 02-04-2023 08:06-0400 Systolic blood pressure 120 mm[Hg] Robert Toscano PA-C Work Phone: [facility] 08-16-2022 09:14-0400 Diastolic blood pressure 71 mm[Hg] Leela Older [employer] Work Phone: [facility] 08-16-2022 09:14-0400 Heart rate 47 /min Leela Older [employer] Work Phone: [facility] 08-16-2022 09:14-0400 Systolic blood pressure 144 mm[Hg] Leela Older [employer]ION [employer] Work Phone: [facility] 08-16-2022 09:04-0400 Body weight 97.52 kg Leela Older [employer] Work Phone: [facility] 08-16-2022 09:04-0400 Respiratory rate 12 /min Leela Older [employer] Work Phone: [facility] 07-04-2022 08:51-0500 Diastolic blood pressure 94 mm[Hg] Cody Carrington MD Work Phone: [facility] 07-04-2022 08:51-0500 Heart rate 50 /min Cody Carrington MD Work Phone: [facility] 07-04-2022 08:51-0500 Systolic blood pressure 207 mm[Hg] Cody Carrington MD Work Phone: [facility] 07-04-2022 08:41-0500 Body weight 96.16 kg Cody Carrington MD Work Phone: [facility] 12-27-2021 08:59-0400 Diastolic blood pressure 71 mm[Hg] Cody Carrington MD Work Phone: [facility] 12-27-2021 08:59-0400 Heart rate 52 /min Cody Carrington MD Work Phone: [facility] 12-27-2021 08:59-0400 Systolic blood pressure 119 mm[Hg] Cody Carrington MD Work Phone: [facility] 12-27-2021 08:46-0400 Body temperature 96.8 [degF] Cody Carrington MD Work Phone: [facility] 12-27-2021 08:46-0400 Body weight 99.7 kg Cody Carrington MD Work Phone: [facility] 12-27-2021 08:46-0400 Respiratory rate 12 /min Cody Carrington MD Work Phone: [facility] Encounters Encounter Date Encounter Type Care Provider Facility Start: 02-25-2025 End: 02-25-2025 ambulatory RADHA LARSEN Facility:[id number] Start: 02-23-2025 End: 02-23-2025 ambulatory CODY CARRINGTON Facility:[facility] Start: 02-22-2025 End: 02-22-2025 ambulatory PINA SCHUSTER Facility:[facility] Start: 02-11-2025 End: 02-11-2025 ambulatory CODY CARRINGTON Facility:[facility] Start: 01-04-2025 End: 01-04-2025 ambulatory CODY CARRINGTON Facility:[facility] Start: 01-04-2025 End: 01-04-2025 Patient encounter procedure Cody Carrington MD Work Phone: [facility] [place] Comment on above: Medicare annual well ness visit, subsequent (Primary Dx); Gastroesophageal reflux disease, unspecified whether esophagitis present; Herpes infection; 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 Sruthi Larkin MD -[place] [facility] Work Phone: Start: 11-22-2024 End: 11-22-[address] Cody Carrington MD Work Phone: [facility] Start: 11-14-2024 End: 11-18-2024 Follow-up encounter Cody Carrington MD Work Phone: [facility] [place] Start: 11-12-2024 End: 11-12-2024 Patient encounter procedure Johan Payne MD Work Phone: Hematology/Oncology Start: 11-12-2024 End: 11-12-2024 ambulatory Johan Payne MD Work Phone: [facility] Comment on above: Prostate cancer (HCC ) (Primary Dx) Start: 11-08-2024 End: 11-09-2024 Refill Cody Carrington MD Work Phone: [facility] [place] Comment on above: Refill Request Start: 10-27-2024 End: 10-27-2024 Office outpatient visit 25 minutes Cody Carrington MD Work Phone: [facility] [place] Comment on above: Postnasal drip (Prim shahla Dx); Screening for depression; Encounter for screening examination for other mental health and behavioral disorders; Muscle spasm of back; Hyperlipidemia, unspecified hyperlipidemia type; Herpes infection; Acquired hypothyroidism; Primary hypertension; Urinary frequency; Impaired fasting glucose; Anemia, unspecified type Start: 10-27-2024 End: 10-27-2024 ambulatory CODY CARRINGTON Facility:[facility] Start: 09-07-2024 End: 09-08-2024 Refill Cody Carrington MD Work Phone: [address] [place] [address] Comment on above: Refill Request Start: 09-02-2024 End: 09-03-2024 Telephone encounter Bouchra Fortune RN Work Phone: Hematology/Oncology Comment on above: Care Coordination Start: 08-26-2024 End: 08-26-2024 ambulatory RADHA LARSEN Facility:[id number] Start: 08-25-2024 End: 08-25-2024 Telephone encounter Bouchra Fortune RN Work Phone: Hematology/Oncology Comment on above: Care Coordination (O RAL ANTI-CANCER AGENTS EDUCATION-Xtandi) Start: 08-20-2024 End: 08-20-2024 ambulatory Injection Nirmal [facility] Work Phone: Hematology/Oncology Comment on above: Prostate cancer (HCC ) (Primary Dx) Start: 08-18-2024 End: 08-18-2024 Refill Cody Carrington MD Work Phone: Internal Medicine [place] Comment on above: Refill Request Start: 07-27-2024 End: 07-27-2024 Refill Johan Payne MD Work Phone: Hematology/Oncology Comment on above: Refill Request Start: 07-26-2024 End: 07-26-2024 Refill Johan Payne MD Work Phone: Hematology/Oncology Comment on above: Refill Request Start: 07-22-2024 End: 07-22-2024 ambulatory CODY CARRINGTON Facility:[facility] Start: 07-22-2024 End: 07-22-2024 [facility] Work Phone: Radiology Comment on above: Bilateral hydronephr osis [N13.30] Start: 07-15-2024 End: 07-15-2024 Patient encounter procedure Radha Larsen MD Work Phone: Urology Comment on above: Prostate cancer (HCC ) (Primary Dx); Urinary frequency; Bilateral hydronephrosis Start: 07-15-2024 End: 07-15-2024 ambulatory RADHA LARSEN Facility:[id number] Start: 07-12-2024 End: 07-13-2024 Refill Cody Carrington MD Work Phone: Internal Medicine [place] Comment on above: Refill Request Start: 07-09-2024 End: 08-10-2024 ambulatory Johan Payne MD Work Phone: Hematology/Oncology Comment on above: 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); Retroperitoneal lymphadenopathy Start: 07-09-2024 End: 07-09-2024 Patient encounter procedure Johan Payne MD Work Phone: Hematology/Oncology Comment on above: SPP Oral Oncology/he matology - Treatment Referral (Xtandi 80 mg); Insurance Authorization ([place] Pending ) Start: 2024 End: 07-09-2024 Telephone encounter Radha Larsen MD Work Phone: Urology Comment on above: Patient Question Start: 07-05-2024 End: 07-05-2024 ambulatory CODY CARRINGTON Facility:[facility] Start: 07-01-2024 End: 07-01-2024 Follow-up encounter Cody Carrington MD Work Phone: Internal Medicine [place] Start: 06-29-2024 End: 06-29-2024 ambulatory CODY CARRINGTON Facility:[facility] Start: 06-28-2024 End: 06-28-2024 Telephone encounter Cody Carrington MD Work Phone: Internal Medicine [place] Comment on above: Patient Request Start: 06-23-2024 End: 06-23-2024 Telephone encounter Johan Payne MD Work Phone: Hematology/Oncology Comment on above: Appointment Start: 06-21-2024 ambulatory RADHA LARSEN Faci lity:[id number] Start: 06-21-2024 End: 06-21-2024 Subsequent hospital visit by [facility] Work Phone: Radiology CT Scan Comment on above: Bilateral hydronephr osis [N13.30] Start: 06-16-2024 End: 06-16-2024 ambulatory CODY CARRINGTON Facility:[facility] Start: 06-16-2024 End: 06-16-2024 Office outpatient visit 25 minutes Valentina Berry PA-C Work Phone: [place] [facility] Comment on above: Acute URI (Primary D x) Start: 06-11-2024 End: 06-14-2024 ambulatory Cody Carrington MD Work Phone: Internal Medicine [place] Comment on above: Urinary Tract Infect ion Start: 05-28-2024 End: 05-28-2024 Telephone encounter Jacob Jenkins APRN.SOLVENT STATION ATTENDANT Work Phone: Urology Start: 05-28-2024 End: 05-28-2024 Patient encounter procedure Pina Schuster Work Phone: Hematology/Oncology Start: 05-28-2024 End: 05-28-2024 ambulatory Injection Nirmal [facility] Work Phone: Hematology/Oncology Comment on above: Prostate cancer (HCC ) (Primary Dx) 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) Start: 05-27-2024 End: 05-27-2024 Telephone encounter Jacob Jenkins APRN.SOLVENT STATION ATTENDANT Work Phone: Urology Comment on above: Appointment Start: 05-24-2024 End: 05-24-2024 Orders Only Cody Carrington MD Work Phone: Internal Medicine [place] Comment on above: Dysuria (Primary Dx) Start: 05-21-2024 End: 05-21-2024 Office outpatient visit 25 minutes Cody Carrington MD Work Phone: Internal Medicine [place] Comment on above: Dysuria (Primary Dx) ; New onset atrial fibrillation (HCC); Bradycardia; Paroxysmal atrial fibrillation (HCC); Obstructive uropathy; Anemia, unspecified type; Gastroesophageal reflux disease, unspecified whether esophagitis present Start: 05-21-2024 End: 05-21-2024 ambulatory CODY Blanc ZEB Facility:[facility] Start: 05-06-2024 End: 05-07-2024 Telephone encounter Radha Larsen MD Work Phone: Urology Comment on above: Patient Update Start: 04-29-2024 End: 05-03-2024 Telephone encounter Cody Carrington MD Work Phone: Internal Medicine [place] Comment on above: Patient Question Start: 04-29-2024 End: 04-29-2024 ambulatory Jarek Perez NP Facility[facility] Start: 04-26-2024 End: 04-26-2024 Patient encounter procedure Leela Drake DISTRIBUTION SPEC.SOLVENT STATION ATTENDANT Work Phone: Internal Medicine [place] Comment on above: Complicated UTI (uri nary tract infection) (Primary Dx); Muscle spasm of back Start: 04-26-2024 End: 04-26-2024 ambulatory ELENI ZEB Facility:[facility] Start: 04-22-2024 End: 04-23-2024 Telephone encounter Cody Carrington MD Work Phone: Internal Medicine [place] Comment on above: future apt/patient u pdate Start: 04-20-2024 End: 04-21-2024 Telephone encounter Johan Payne MD Work Phone: Hematology/Oncology Comment on above: Patient Update Start: 04-20-2024 End: 04-20-2024 ambulatory CODY CARRINGTON Facility:[facility] Start: 04-20-2024 End: 04-20-2024 Follow-up encounter Rodolfo Aguilar MD Work Phone: Radiation Oncology Comment on above: Radiotherapy follow- up (Primary Dx); 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) Start: 04-20-2024 End: 04-20-2024 Telemedicine consultation with patient Rodolfo Aguilar MD Work Phone: Radiation Oncology Start: 04-16-2024 ambulatory Nora Ward Facility :[facility] Start: 04-16-2024 End: 04-18-2024 Evaluation and management of inpatient Nora Ward Facility:[facility] Start: 04-15-2024 End: 04-15-2024 Emergency department patient visit Fernando Hollins Facility:[facility] Start: 04-14-2024 End: 04-14-2024 Patient encounter procedure Radha Larsen MD Work Phone: Urology Comment on above: Prostate cancer (HCC ) (Primary Dx); Bilateral hydronephrosis; Acute urinary retention; Other hydronephrosis Start: 04-14-2024 End: 04-14-2024 Telephone encounter Cody Carrington MD Work Phone: Family [facility] Comment on above: Patient Question Start: 04-14-2024 End: 04-14-2024 ambulatory RADHA LARSEN Facility:[id number] Start: 04-14-2024 End: 04-14-2024 ambulatory CODY CARRINGTON Facility:[facility] Start: 04-13-2024 End: 04-13-2024 ambulatory RADHA LARSEN Facility:[id number] Start: 04-05-2024 End: 04-06-2024 Telephone encounter Cody Carrington MD Work Phone: Internal Medicine [place] Comment on above: Orders (lab orders) Start: 03-26-2024 End: 03-26-2024 Patient encounter procedure Radha Larsen MD Work Phone: Urology Comment on above: Prostate cancer (HCC ) (Primary Dx); Bilateral hydronephrosis; Acute urinary retention Start: 03-26-2024 End: 03-26-2024 ambulatory RADHA LARSEN Facility:[id number] Start: 03-23-2024 End: 03-23-2024 ambulatory Rodolfo Aguilar MD Work Phone: Radiation Oncology Comment on above: Patient Education Start: 03-23-2024 End: 03-25-2024 Patient encounter procedure Rodolfo Aguilar MD Work Phone: Radiation Oncology Start: 03-23-2024 End: 03-25-2024 Radiation Oncology Note Rodolfo Aguilar MD Work Phone: Radiation Oncology Comment on above: Completion Note Start: 03-22-2024 End: 03-22-2024 ambulatory Rodolfo Aguilar MD Work Phone: Hematology/Oncology Start: 03-19-2024 End: 03-19-2024 ambulatory ELENI CARRINGTON Facility:[facility] Start: 03-18-2024 End: 03-18-2024 ambulatory ELENI CARRINGTON Facility:[facility] Start: 03-17-2024 End: 03-17-2024 Patient encounter procedure Rodolfo Aguilar MD Work Phone: Radiation Oncology Comment on above: Metastasis to retrop eritoneal lymph node (HCC) (Primary Dx) Start: 03-17-2024 End: 03-17-2024 ambulatory ELENI CARRINGTON Facility:[facility] Start: 03-15-2024 End: 03-15-2024 Telephone encounter Jacob Jenkins APRN.CNP Work Phone: Urology Comment on above: Orders Start: 03-15-2024 End: 03-15-2024 Patient encounter procedure Nurse Jay Jay Walker Work Phone: Urology Comment on above: Bilateral hydronephr osis (Primary Dx) Start: 03-15-2024 End: 03-15-2024 ambulatory ELENI CARRINGTON Facility:[facility] Start: 03-12-2024 End: 03-12-2024 ambulatory ELENI CARRINGTON Facility:[facility] Start: 03-11-2024 End: 03-11-2024 ambulatory ELENI CARRINGTON Facility:[facility] Start: 03-10-2024 End: 03-10-2024 ambulatory ELENI CARRINGTON Facility:[facility] Start: 03-10-2024 End: 03-10-2024 Telephone encounter Radha Larsen MD Work Phone: Urology Comment on above: Appointment Start: 03-09-2024 End: 03-09-2024 Patient encounter procedure Rodolfo Aguilar MD Work Phone: Radiation Oncology Comment on above: Metastasis to retrop eritoneal lymph node (HCC) (Primary Dx) Start: 03-09-2024 End: 03-09-2024 ambulatory CODY CARRINGTON Facility:[facility] Start: 03-08-2024 Patient encounter status Cullen Larsen MD Work Phone: [facility] Start: 03-08-2024 End: 03-08-2024 Telephone encounter Radha Larsen MD Work Phone: MR PROVIDER ADULT Comment on above: Orders; Follow Up Start: 03-08-2024 End: 03-08-2024 ambulatory RADHA LARSEN Facility:[id number] Start: 03-05-2024 End: 04-23-2024 Patient encounter status Cody Carrington MD Work Phone: 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) Start: 03-02-2024 End: 03-02-2024 ambulatory CODY CARRINGTON Facility:[facility] Start: 03-01-2024 End: 03-01-2024 Telephone encounter Radha Larsen MD Work Phone: MR PROVID[facility] ADULT Comment on above: Orders Medical Accounts Receivable Specialist - E D Follow Up Start: 03-01-2024 End: 03-01-2024 Patient encounter procedure Rodolfo Aguilar MD Work Phone: Radiation Oncology Comment on above: Metastasis to retrop eritoneal lymph node (HCC) (Primary Dx); Prostate cancer (HCC) Start: 03-01-2024 End: 03-01-2024 Telemedicine consultation with patient Devin Cortes MD Work Phone: Urology Start: 03-01-2024 End: 03-01-2024 ambulatory Devin Cortes MD Work Phone: Urology Comment on above: Bilateral hydronephr osis (Primary Dx); Retroperitoneal lymphadenopathy; Hydronephrosis with ureteral stricture, not elsewhere classified; HERMES (acute kidney injury) (HCC) Start: 02-28-2024 End: 02-28-2024 Emergency department patient visit CODY CARRINGTON Facility:[id number] Start: 02-27-2024 End: 02-27-2024 ambulatory Injection Nirmal [facility] Work Phone: Hematology/Oncology Comment on above: Prostate cancer (HCC ) (Primary Dx) Start: 02-27-2024 End: 02-27-2024 Subsequent hospital visit by physician [facility] [address] Scan Comment on above: Hydronephrosis, unsp ecified hydronephrosis type [N13.30] Start: 02-27-2024 End: 02-27-2024 Patient encounter procedure Devin Cortes MD Work Phone: Urology Comment on above: Prostate cancer (HCC ) (Primary Dx); Hydronephrosis, unspecified hydronephrosis type; HERMES (acute kidney injury) (HCC) Start: 02-27-2024 End: 02-27-2024 ambulatory Johan Payne MD Work Phone: Hematology/Oncology Comment on above: Prostate cancer (HCC ) (Primary Dx) Start: 02-27-2024 End: 02-27-2024 Patient encounter procedure Johan Payne MD Work Phone: Hematology/Oncology Start: 02-26-2024 End: 02-26-2024 Office outpatient visit 25 minutes Cody Carrington MD Work Phone: Internal Medicine [place] Comment on above: Fatigue, unspecified type (Primary Dx); Herpes infection; Need for influenza vaccination; Prostate cancer (HCC); Anemia, unspecified type; Hypothyroidism, unspecified type; Obstructive uropathy Start: 02-25-2024 End: 02-26-2024 Telephone encounter Johan Payne MD Work Phone: Hematology/Oncology Comment on above: Patient Question (no te to return to work and FMLA paperwork ) Start: 02-20-2024 End: 02-20-2024 Subsequent hospital visit by physician [facility] Work Phone: Nuclear Medicine Comment on above: 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] Start: 02-20-2024 End: 02-20-2024 Telephone encounter Financial Navigator Nirmal Work Phone: Financial Services Comment on above: Benefits Investigati on Start: 02-20-2024 End: 02-20-2024 Subsequent hospital visit by physician [facility] Work Phone: Nuclear Medicine Comment on above: 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] Start: 02-13-2024 End: 02-13-2024 ambulatory Johan Payne MD Work Phone: Hematology/Oncology Comment on above: Retroperitoneal lymp hadenopathy (Primary Dx); Prostate cancer (HCC) Start: 02-13-2024 End: 02-13-2024 Patient encounter procedure Johan Payne MD Work Phone: Hematology/Oncology Start: 01-26-2024 End: 01-26-2024 Patient encounter procedure Devin Cortes MD Work Phone: Urology Comment on above: Elevated prostate sp ecific antigen (PSA) (Primary Dx) Start: 01-13-2024 End: 01-14-2024 Refill Cody Carrington MD Work Phone: Internal Medicine [place] Comment on above: Refill Request Start: 01-12-2024 End: 01-14-2024 Telephone encounter Johan Payne MD Work Phone: Hematology/Oncology Comment on above: Appointment Start: 01-02-2024 End: 01-02-2024 ambulatory Johan Payne MD Work Phone: Hematology/Oncology Comment on above: Retroperitoneal lymp hadenopathy (Primary Dx) Start: 01-02-2024 End: 01-02-2024 Patient encounter procedure Johan Payne MD Work Phone: Hematology/Oncology Start: 12-31-2023 End: 12-31-2023 Patient encounter procedure Devin Cortes MD Work Phone: Urology Comment on above: Elevated prostate sp ecific antigen (PSA) (Primary Dx); Nodular prostate with lower urinary tract symptoms; Benign prostatic hyperplasia with incomplete bladder emptying Start: 12-18-2023 End: 12-18-2023 Subsequent hospital visit by physician Fernando Wen MD Work Phone: Ambulatory Surgery Comment on above: Rectal mass [K62.89] Start: 12-10-2023 Refill Cody ty MD Work Phone: Internal Medicine [place] Comment on above: Refill Request Start: 12-08-2023 Telephone encounter Fernando raines MD Work Phone: General Surgery Start: 12-08-2023 End: 12-08-2023 Patient encounter procedure Fernando Wen MD Work Phone: General Surgery Comment on above: Rectal mass (Primary Dx) Start: 12-07-2023 Refill Robert Toscano PA-C Work Phone: Urology Comment on above: Refill Request Start: 12-04-2023 Telephone encounter Cody melendez MD Work Phone: Internal Medicine [place] Comment on above: Results Start: 12-04-2023 End: 12-04-2023 Subsequent hospital visit by physician [facility] Kemal (I-[facility]) Work Phone: Radiology [facility] Comment on above: Constipation, unspec ified constipation type [K59.00] Start: 11-25-2023 Orders Only Hakan vega MD Work Phone: Radiology Start: 10-25-2023 Telephone encounter Cody melendez MD Work Phone: Internal Medicine [place] Comment on above: Procedure Start: 10-24-2023 End: 10-24-2023 Patient encounter procedure Cody Carrington MD Work Phone: Internal Medicine [place] Comment on above: Routine medical exam (Primary Dx); Primary hypertension; Hypothyroidism, unspecified type; Elevated PSA; Positive colorectal cancer screening using Cologuard test; Impaired fasting glucose Start: 10-24-2023 End: 10-24-2023 Patient encounter status Cody Carrington MD Work Phone: [facility] Work Phone: Start: 10-22-2023 End: 10-22-2023 Patient encounter procedure Chris Barrera MD Work Phone: [facility] [place] Comment on above: Paroxysmal atrial fi brillation (HCC) (Primary Dx); At risk for stroke; Anticoagulant long-term use Start: 10-22-2023 End: 10-22-2023 ambulatory SRUTHI URBINA HOUSTON Facility:[facility] Start: 10-09-2023 Refill Robert Toscano PA-C Work Phone: Urology Comment on above: Refill Request Start: 09-24-2023 Telephone encounter Dixie patton MD Work Phone: [facility] [place] Comment on above: Appointment Start: 07-24-2023 End: 07-24-2023 Patient encounter procedure Cody Carrington MD Work Phone: Internal Medicine [place] Comment on above: New onset atrial fib rillation (HCC) (Primary Dx); Primary hypertension; Obesity, Class I, BMI 30-34.9; Anemia, unspecified type; Hypothyroidism, unspecified type; Impaired fasting glucose; Elevated PSA Start: 06-23-2023 End: 06-23-2023 Patient encounter procedure Cody Carrington MD Work Phone: Internal Medicine [place] Comment on above: New onset atrial fib rillation (HCC) (Primary Dx); Primary hypertension; Acquired hypothyroidism Start: 06-17-2023 Non-patient / Non-visit Dr. Lyssa Carrington Work Phone: [facility] Start: 06-16-2023 Non-patient / Non-visit Dr. Lyssa Carrington Work Phone: [facility] Work Phone: Start: 06-16-2023 End: 06-17-2023 Evaluation and management of inpatient Dr. Cody Carrington Work Phone: [facility] Work Phone: Start: 06-16-2023 End: 06-17-[address] Cody Carrington Work Phone: [facility] Work Phone: Start: 06-16-2023 End: 06-16-2023 Patient encounter procedure Cody Carrington MD Work Phone: Internal Medicine [place] Comment on above: Orthostatic hypotens ion (Primary Dx); New onset atrial fibrillation (HCC) Start: 06-16-2023 ambulatory Cody ty MD Work Phone: Internal Medicine [place] Comment on above: Dizziness Start: 05-08-2023 End: 05-08-2023 Subsequent hospital visit by physician Daphney [facility] [place] Work Phone: Radiology Comment on above: Acute cough [R05.1] Start: 02-10-2023 Telephone encounter Robert martel PA-C Work Phone: Urology Comment on above: Results Start: 02-05-2023 Telephone encounter Cody melendez MD Work Phone: Internal Medicine [place] Comment on above: Refill Request Start: 02-04-2023 End: 02-04-2023 Patient encounter procedure Robert Toscano PA-C Work Phone: Urology Comment on above: Elevated prostate sp ecific antigen (PSA) (Primary Dx); Urinary frequency; Lower urinary tract symptoms (LUTS); BPH with elevated PSA Start: 01-09-2023 Telephone encounter Cody melendez MD Work Phone: Internal Medicine [place] Comment on above: Results Start: 01-03-2023 End: 01-03-2023 Patient encounter procedure Cody Carrington MD Work Phone: Internal Medicine [place] Comment on above: Urinary frequency (P rimary Dx); Herpes infection; Acquired hypothyroidism; Primary hypertension; Lower urinary tract symptoms (LUTS); Hyperlipidemia, unspecified hyperlipidemia type; Positive colorectal cancer screening using Cologuard test Start: 09-27-2022 Refill Cody ty MD Work Phone: Internal Medicine [place] Comment on above: Refill Request Start: 09-02-2022 Refill Cody ty MD Work Phone: Internal Medicine [place] Comment on above: Refill Request Start: 08-16-2022 End: 08-16-2022 Patient encounter procedure Leela Quinones APRNKellySOLVENT STATION ATTENDANT Work Phone: Internal Medicine [place] Comment on above: Hypertension, unspec ified type (Primary Dx) Start: 07-04-2022 End: 07-04-2022 Patient encounter procedure Cody Carrington MD Work Phone: Internal Medicine [place] Comment on above: Hypertension, unspec ified type (Primary Dx); Hyperlipidemia, unspecified hyperlipidemia type; Impaired fasting glucose; Hypothyroidism, unspecified type; Screening for colon cancer Start: 12-27-2021 End: 12-27-2021 Patient encounter procedure Cody Carrington MD Work Phone: Internal Medicine [place] Comment on above: Hyperlipidemia, unsp ecified hyperlipidemia type (Primary Dx); Herpes infection; Acquired hypothyroidism; Primary hypertension; Muscle spasm of back; Anemia, unspecified type Start: 12-07-2021 Refill Cody ty MD Work Phone: Internal Medicine [place] Comment on above: Prescription Refills Start: 12-03-2021 Telephone encounter Cody melendez MD Work Phone: [facility] [place] Comment on above: Orders Start: 09-18-2021 Refill Cody ty MD Work Phone: [address] [place] [address] Comment on above: Refill Request Start: 08-02-2021 Telephone encounter Cody melendez MD Work Phone: Internal Medicine [place] Comment on above: Orders Procedures Date Procedure Procedure Detail Performing Clinician Start: 10-27-2024 Adult depression scr eening assessment Cody Carrington MD Work Phone: Start: 07-15-2024 BLADDER SCAN Booker Larsen MD Work Phone: Start: 07-15-2024 Urnls dip stick/tabl et rgnt auto w/o microscopy Radha Larsen MD Work Phone: Start: 06-16-2024 INFLUENZA A&B MOLECU LAR (POC) Valentina ANDRADE-Jaclyn Work Phone: Start: 05-21-2024 Urnls dip stick/tabl et rgnt auto w/o microscopy Cody Carrington MD Work Phone: Start: 04-14-2024 BLADDER SCAN Booker Larsen MD Work Phone: Start: 03-26-2024 BLADDER SCAN Booker Larsen MD Work Phone: Start: 02-27-2024 Ct abdomen & pelvis w/o contrast material Devin Cortes MD Work Phone: Start: 02-20-2024 Bone &/joint imaging whole body Johan Payne MD Work Phone: Start: 01-26-2024 Urnls dip stick/tabl et rgnt auto w/o microscopy Devin Cortes MD Work Phone: Start: 12-31-2023 Urnls dip stick/tabl et rgnt auto w/o microscopy Devin Cortes MD Work Phone: Start: 12-18-2023 Colonoscopy flx dx w /collj spec when pfrmd Fernando Wen MD Work Phone: Start: 12-18-2023 Colonoscopy Fernando jim MD Work Phone: Start: 12-04-2023 Ct colonography scre ening image postprocessing Cody Carrington MD Work Phone: Start: 10-24-2023 Adult depression scr eening assessment Ct (I[facility]) Work Phone: Start: 10-22-2023 Ecg routine ecg w/le ast 12 lds w/i&r Chris Barrera MD Work Phone: Start: 06-16-2023 Plain chest X-ray Dr. Giovany Carrington Work Phone: Start: 06-16-2023 Ecg routine ecg w/le ast 12 lds i&r only [facility] Provider Start: 05-08-2023 Radiologic exam ches t 2 views Meron Scott PA-C Work Phone: Start: 02-04-2023 Urnls dip stick/tabl et rgnt auto w/o microscopy Robert Toscano PA-C Work Phone: Start: 12-27-2021 Adult depression scr eening assessment Cody Carrington MD Work Phone: Start: 06-26-2020 Adult depression scr eening assessment Cody Carrington MD Work Phone: Plan of Treatment Date Care Activity Detail Author Start: 12-17-2033 Screening for malign ant neoplasm of colon [facility] Start: 12-03-2028 Screening for malign ant neoplasm of colon CT Colonography [facility] Start: 11-13-2027 Diabetes Screening Diabetes Screenin [facility] Start: 06-29-2027 Diabetes Screening Diabetes Screenin [facility] Start: 04-26-2027 Diabetes Screening Diabetes Screenin [facility] Start: 04-13-2027 Diabetes Screening Diabetes Screenin g [facility] Start: 02-27-2027 Diabetes Screening Diabetes Screenin g [facility] Start: 02-25-2027 Diabetes Screening Diabetes Screenin g [facility] Start: 10-21-2026 Diabetes Screening Diabetes Screenin g [facility] Start: 07-17-2026 Diabetes Screening Diabetes Screenin g [facility] Start: 01-04-2026 Medicare Annual Well ness Visit Medicare Annual Wellness Visit [facility] Start: 01-03-2026 DIABETES SCREEN DIABETES SCREEN [facility] Start: 01-03-2026 Diabetes Screening Diabetes Screenin g [facility] Start: 10-27-2025 Anxiety Screening Anxiety Screening [facility] Start: 10-27-2025 Depression Screening Depression Scre ening [facility] Start: 08-11-2025 COLOGUARD (FIT-DNA) COLOGUARD (FIT-D NA) [facility] Start: 08-11-2025 Screening for malign ant neoplasm of colon Cologuard (FIT-DNA) [facility] Start: 07-06-2025 DIABETES SCREEN DIABETES SCREEN [facility] Start: 07-05-2025 End: 07-05-2025 Patient encounter procedure 07/05/2025 11:40 AM EST Office Visit Internal Medicine [place] [address] [place], [place] [id number] Cody Carrington MD [address] [place] [address] 6 month follow up Internal Medicine [place] Comment on above: 6 month follow up Start: 02-25-2025 End: 02-25-2025 Patient encounter procedure 02/25/2025 8:30 AM EDT Office Visit Urology [address] [place], [place] [id number] Radha Larsen MD [address] [place] [address] 6 month follow up PSA prior Urology Comment on above: 6 month follow up PS A prior Start: 02-11-2025 End: 02-11-2025 ambulatory 02/11/2025 2:45 PM EDT Infusion Center Hematology/Oncology [address] [place] [address] Wstr, Injection Nirmal [facility] [address] [place] [address] Q3MO LUPRON* Hematology/Oncology Comment on above: Q3MO LUPRON* Start: 02-11-2025 End: 02-11-2025 ambulatory [facility] Comment on above: CMP/PSA* OV/EARLY LABS/LUPRON TODAY* Start: 02-04-2025 End: 05-06-2025 Thyrotropin [Units/volume] in Serum or Plasma THYROID STIMULATING HORMONE Lab Routine Hypothyroidism, unspecified type Expected: 02/04/2025, Expires: 05/06/2025 [facility] Work Phone: Comment on above: Expected: 02/04/2025 , Expires: 05/06/2025 Start: 02-04-2025 End: 02-04-2025 ambulatory [facility] Comment on above: CMP/PSA* OV/EARLY LABS/LUPRON TODAY* Q3MO LUPRON* Start: 01-04-2025 End: 01-04-2025 Patient encounter procedure 01/04/2025 9:20 AM EDT Office Visit Internal Medicine [place] [address] [facility] [place], [place] [address] Cody Carrington MD [address] [facility] [place] [place] [id number] Annual Medicare Wellness w/2 month follow-up [facility] [place] Comment on above: Annual Medicare Well ness w/2 month follow-up Start: 01-03-2025 Influenza vaccination Influenza Vacc ine (#1) [facility] Start: 12-17-2024 Screening for malign ant neoplasm of colon Colonoscopy [facility] Start: 11-22-2024 Evaluation of diagno stic study results [facility] Start: 11-12-2024 End: 02-11-2025 CBC panel - Blood by Automated count COMPLETE BLOOD COUNT Lab Routine Anemia, unspecified type Expected: 11/12/2024, Expires: 02/11/2025 [facility] Comment on above: Expected: 11/12/2024 , Expires: 02/11/2025 Start: 11-12-2024 End: 02-11-2025 Comprehensive metabolic 2000 panel - Serum or Plasma COMPREHENSIVE METABOLIC PANEL Lab STAT Prostate cancer (HCC) Expected: 11/12/2024, Expires: 02/11/2025 [facility] Work Phone: Comment on above: Expected: 11/12/2024 , Expires: 02/11/2025 Start: 11-12-2024 End: 02-11-2025 Hemoglobin A1c in Blood HEMOGLOBIN A1C Lab Routine Impaired fasting glucose Expected: 11/12/2024, Expires: 02/11/2025 [facility] Comment on above: Expected: 11/12/2024 , Expires: 02/11/2025 Start: 11-12-2024 End: 02-11-2025 Lipid 1996 panel - Serum or Plasma LIPID PANEL, FASTING Lab Routine Hyperlipidemia, unspecified hyperlipidemia type Expected: 11/12/2024, Expires: 02/11/2025 [facility] Comment on above: Expected: 11/12/2024 , Expires: 02/11/2025 Start: 11-12-2024 End: 02-11-2025 Thyrotropin [Units/volume] in Serum or Plasma THYROID STIMULATING HORMONE Lab Routine Acquired hypothyroidism Expected: 11/12/2024, Expires: 02/11/2025 [facility] Work Phone: Comment on above: Expected: 11/12/2024 , Expires: 02/11/2025 Start: 11-12-2024 End: 11-12-2024 ambulatory Hematology/Oncology Comment on above: Q3MO LUPRON* CMP/PSA* OV/EARLY LABS/LUPRON TODAY* Start: 10-27-2024 End: 10-27-2024 Patient encounter procedure [facility] [place] Comment on above: 6 month follow-up Start: 10-23-2024 Anxiety Screening Anxiety Screening [facility] Start: 10-23-2024 Depression Screening Depression Scre [facility] Start: 08-26-2024 End: 08-26-2024 Patient encounter procedure Urology Comment on above: 6 WEEK FOLLOW UP 6 WEEK FOLLOW UP; urine, pvr Start: 08-20-2024 End: 08-20-2024 ambulatory 08/20/2024 9:15 AM EDT Infusion Center Hematology/Oncology [address] [place] [address] Wstr, Injection Nirmal [facility] [address] [place] [address] Q3MO LUPRON* Hematology/Oncology Comment on above: Q3MO LUPRON* Start: 08-15-2024 End: 11-14-2024 Basic metabolic 2000 panel - Serum or Plasma BASIC METABOLIC PANEL Lab Routine Bilateral hydronephrosis Expected: 08/15/2024, Expires: 11/14/2024 [facility] Comment on above: Expected: 08/15/2024 , Expires: 11/14/2024 Start: 07-22-2024 End: 07-22-2024 Patient encounter procedure 07/22/2024 8:30 AM EDT Appointment Radiology [address] [place] [address] US KIDNEY/BLADDER Radiology Comment on above: US KIDNEY/BLADDER Start: 07-15-2024 End: 07-15-2024 Patient encounter procedure Urology Comment on above: 3 months PSA, BMP, r esults CT urogram 3 months PSA, BMP, r esults CT urogram; urine, pvr Start: 07-13-2024 End: 10-12-2024 Prostate specific Ag [Mass/volume] in Serum or Plasma PROSTATE-SPECIFIC ANTIGEN DIAGNOSTIC Lab Routine Prostate cancer (HCC) Expected: 07/13/2024, Expires: 10/12/2024 [facility] Comment on above: Expected: 07/13/2024 , Expires: 10/12/2024 Start: 07-09-2024 End: 07-09-2024 ambulatory 07/09/2024 8:30 AM EST Visit (SP) Office Hematology/Oncology [address] [place] [address] [place] [address] [place] [address] 6WK OV* Hematology/Oncology Comment on above: 6WK OV* Start: 07-05-2024 End: 07-05-2024 ambulatory 07/05/2024 7:15 AM EST Results Only [place] [facility] [address] [place] [address] PSA [facility] Comment on above: PSA Start: 06-30-2024 DIABETES SCREEN DIABETES SCREEN [facility] Start: 06-28-2024 End: 09-27-2024 Bacteria identified in Urine by Culture BACTERIAL CULTURE, URINE Microbiology Routine Complicated UTI (urinary tract infection) Expected: 06/28/2024, Expires: 09/27/2024 [facility] Comment on above: Expected: 06/28/2024 , Expires: 09/27/2024 Start: 06-28-2024 End: 09-27-2024 Urinalysis complete panel - Urine URINALYSIS, WITH MICROSCOPIC Lab Routine Complicated UTI (urinary tract infection) Expected: 06/28/2024, Expires: 09/27/2024 [facility] Work Phone: Comment on above: Expected: 06/28/2024 , Expires: 09/27/2024 Start: 06-23-2024 Annual PCP Team Net Lead Developer kali Disease Visit Annual PCP Team Chronic Disease Visit [facility] Start: 06-23-2024 BP Controlled (<130/80) BP Controlle d (<130/80) [facility] Start: 06-21-2024 End: 06-21-2024 Patient encounter procedure 06/21/2024 10:30 AM EST Appointment Radiology CT Scan [address] [facility] [place] [address] N13.30,CT UROGRAM W/WO/OFFICE CALLING/ORDER IN [facility] Radiology CT Scan Comment on above: N13.30,CT UROGRAM W/ WO/OFFICE CALLING/ORDER IN [facility] Start: 06-16-2024 Annual PCP Team Net Lead Developer kali Disease Visit Annual PCP Team Chronic Disease Visit [facility] Start: 06-16-2024 BP Controlled (<130/80) BP Controlle d (<130/80) [facility] Start: 06-10-[address] [facility] Comment on above: Postponed from 06/10 (Postponed To Appropriate Date) Start: 05-28-2024 End: 05-28-2024 ambulatory Hematology/Oncology Comment on above: Q3MO LUPRON* PSA* 6WK OV/EARLY LABS* o anirudh to add to schedule per nurse Chelsea 6WK OV/EARLY LABS/IN J TODAY* KUNALAMOVICH -okay to add to schedule per nurse Chelsea Q3MO LUPRON/AUTH EXP ?* (SO)PSA* Q3MO ELIGARD/AUTH EX 05/26/25 Start: 05-05-2024 Advance Directive Discussion Advance Directive Discussion [facility] Start: 04-26-2024 End: 04-26-2024 Patient encounter procedure 04/26/2024 1:40 PM EST Office Visit Internal Medicine [place] [address] [place] [address] Leela Drake, DISTRIBUTION SPEC.SOLVENT STATION ATTENDANT [address] [place] [address] 6 month follow up, [facility] ER follow-up Internal Medicine [place] Comment on above: 6 month follow up, [facility] ER follow-up Start: 04-23-2024 End: 07-23-2024 Bacteria identified in Urine by Culture URINE CULTURE Microbiology Routine Urinary tract infection without hematuria, site unspecified Expected: 04/23/2024, Expires: 07/23/2024 [facility] Comment on above: Expected: 04/23/2024 , Expires: 07/23/2024 Start: 04-23-2024 End: 07-23-2024 Basic metabolic 2000 panel - Serum or Plasma BASIC METABOLIC PANEL Lab STAT Urinary tract infection without hematuria, site unspecified Expected: 04/23/2024, Expires: 07/23/2024 [facility] Comment on above: Expected: 04/23/2024 , Expires: 07/23/2024 Start: 04-23-2024 End: 07-23-2024 CBC panel - Blood by Automated count COMPLETE BLOOD COUNT Lab STAT Anemia, unspecified type Expected: 04/23/2024, Expires: 07/23/2024 [facility] Work Phone: Comment on above: Expected: 04/23/2024 , Expires: 07/23/2024 Start: 04-23-2024 End: 07-23-2024 Urinalysis complete panel - Urine URINALYSIS, WITH MICROSCOPIC Lab Routine Urinary tract infection without hematuria, site unspecified Expected: 04/23/2024, Expires: 07/23/2024 [facility] Comment on above: Expected: 04/23/2024 , Expires: 07/23/2024 Start: 04-23-2024 End: 04-23-2024 Patient encounter procedure 04/23/2024 11:00 AM EST Office Visit Internal Medicine [place] [address] [facility] [address] Cody Carrington MD [address] [facility] [place] [address] 6 month follow up Internal Medicine [place] Comment on above: 6 month follow up Start: 04-21-2024 End: 07-21-2024 Basic metabolic 2000 panel - Serum or Plasma BASIC METABOLIC PANEL Lab Routine Bilateral hydronephrosis Expected: 04/21/2024, Expires: 07/21/2024 [facility] Comment on above: Expected: 04/21/2024 , Expires: 07/21/2024 Start: 04-21-2024 End: 04-21-2024 ambulatory [facility] Comment on above: PSA* 6WK OV/EARLY LABS* Start: 04-20-2024 End: 04-20-2024 Follow-up encounter 04/20/2024 1:00 PM EST [facility] Radiation Oncology [address] [place] [address] Rodolfo Aguilar MD [address] [address] 1 MO OV FOLLOW UP Radiation Oncology Comment on above: 1 MO OV FOLLOW UP Start: 04-14-2024 End: 04-14-2024 Patient encounter procedure 04/14/2024 2:15 PM EST Office Visit Urology [address] [place], [place] [id number] Radha Larsen MD [address] [place] [address] 3 week follow up, lab results Urology Comment on above: 3 week follow up, la b results Start: 04-02-2024 End: 07-02-2024 Basic metabolic 2000 panel - Serum or Plasma BASIC METABOLIC PANEL Lab Routine Bilateral hydronephrosis Expected: 04/02/2024, Expires: 07/02/2024 [facility] Work Phone: Comment on above: Expected: 04/02/2024 , Expires: 07/02/2024 Start: 03-26-2024 End: 03-26-2024 Patient encounter procedure Urology Comment on above: Follow up with [facility] 3 weeks with KUB, psa, and bmp Follow up with [facility] 3 weeks with KUB, psa, and bmp-patient to pull catheter at 8am per PRIVATE BRANCH EXCHANGE INSTALLER Piccari Follow up with [facility] 3 weeks with KUB, psa, and bmp-patient to pull catheter at 8am per PRIVATE BRANCH EXCHANGE INSTALLER Piccari; urine, PVR Start: 03-26-2024 End: 06-25-2024 Prostate specific Ag [Mass/volume] in Serum or Plasma PROSTATE-SPECIFIC ANTIGEN DIAGNOSTIC Lab Routine Prostate cancer (HCC) Expected: 03/26/2024, Expires: 06/25/2024 [facility] Comment on above: Expected: 03/26/2024 , Expires: 06/25/2024 Start: 03-23-2024 End: 03-23-2024 Patient encounter procedure 03/23/2024 3:00 PM EST Appointment Radiation Oncology [address] [place] [address] Location: [facility] Comment on above: Location: [facility] Start: 03-22-2024 End: 03-22-2024 Patient encounter procedure 03/22/2024 3:00 PM EST Appointment Radiation Oncology [address] [place] [address] Location: [email or web address] Radiation Oncology Comment on above: Location: [facility] Start: 03-22-2024 End: 06-21-2024 Basic metabolic 2000 panel - Serum or Plasma BASIC METABOLIC PANEL Lab Routine Bilateral hydronephrosis Ureteral stent present Expected: 03/22/2024 (Approximate), Expires: 06/21/2024 [facility] Comment on above: Expected: 03/22/2024 (Approximate), Expires: 06/21/2024 Start: 03-22-2024 End: 06-21-2024 Prostate specific Ag [Mass/volume] in Serum or Plasma PROSTATE-SPECIFIC ANTIGEN DIAGNOSTIC Lab Routine Prostate cancer (HCC) Expected: 03/22/2024 (Approximate), Expires: 06/21/2024 [facility] Work Phone: Comment on above: Expected: 03/22/2024 (Approximate), Expires: 06/21/2024 Start: 03-22-2024 End: 04-07-2025 XR Abdomen Supine and Upright XR ABDOMEN 1V SUPINE Radiology Routine Bilateral hydronephrosis Ureteral stent present Expected: 03/22/2024 (Approximate), Expires: 04/07/2025 [facility] Comment on above: Expected: 03/22/2024 (Approximate), Expires: 04/07/2025 Start: 03-19-2024 End: 03-19-2024 Patient encounter procedure 03/19/2024 3:00 PM EST Appointment Radiation Oncology [address] [place], [place] [id number] Location: [email or web address] Radiation Oncology Comment on above: Location: [facility] Start: 03-18-2024 End: 03-18-2024 Patient encounter procedure 03/18/2024 3:00 PM EST Appointment Radiation Oncology [address] [place], [place] [id number] Location: [email or web address] Radiation Oncology Comment on above: Location: [facility] Start: 03-17-2024 End: 03-17-2024 Patient encounter procedure 03/17/2024 3:00 PM EST Appointment Radiation Oncology [address] [place], [place] [address] Location: [email or web address] Radiation Oncology Comment on above: Location: [facility] Start: 03-16-2024 End: 03-16-2024 Patient encounter procedure Radiation Oncology Comment on above: Location: [facility] Location: W-ON TREAT MENT VISIT Start: 03-15-2024 End: 03-15-2024 Patient encounter procedure Radiation Oncology Comment on above: Location: [facility] remove cath [place] Start: 03-12-2024 End: 03-12-2024 Patient encounter procedure 03/12/2024 3:00 PM EST Appointment Radiation Oncology [address] [place], [place] [id number] Location: [email or web address] Radiation Oncology Comment on above: Location: [facility] Start: 03-11-2024 End: 03-11-2024 Patient encounter procedure 03/11/2024 3:00 PM EST Appointment Radiation Oncology [address] [place] [address] Location: [email or web address] On[facility] Comment on above: Location: [facility] Start: 03-10-2024 End: 03-10-2024 Patient encounter procedure 03/10/2024 3:00 PM EST Appointment Radiation Oncology [address] [place] [address] Location: [email or web address]iation Oncology Comment on above: Location: [facility] Start: 03-09-2024 End: 03-09-2024 Patient encounter procedure Radiation Oncology Comment on above: Location: [facility] Location: W-ON TREAT MENT VISIT Start: 03-08-2024 End: 03-08-2024 Admission to same day surgery center 03/08/2024 9:20 AM EST - 03/08/2024 10:40 AM EST Surgery [facility] Surgery [address] [place] [address] [place] [address] Radha Larsen MD [address] [place] [id number] CYSTOSCOPY, RETROPYELOGRAM [facility] Comment on above: CYSTOSCOPY, RETROPYE LOGRAM Start: 03-08-2024 Subsequent hospital visit by physician 03/08/2024 9:20 AM EST Hospital Encounter [facility] Surgery [address] [place] [address] [place] [address] Radha Larsen MD [address] [place] [id number] Prostate cancer (HCC) [C61], Hydronephrosis, unspecified hydronephrosis type [N13.30], HERMES (acute kidney injury) (HCC) [N17.9] [facility] Comment on above: Prostate cancer (HCC ) [C61], Hydronephrosis, unspecified hydronephrosis type [N13.30], HERMES (acute kidney injury) (HCC) [N17.9] Start: 03-08-2024 End: 03-08-2024 Cysto bladder w/ureteral catheterization MR OR Start: 03-08-2024 End: 03-08-2024 Cysto w/insert ureteral stent MR OR Start: 03-02-2024 End: 03-02-2024 Nursing evaluation of patient and report 03/02/2024 1:45 PM EDT Nurse Visit Radiation Oncology [address] [place] [address] Wstr, Nurse Radt [facility] [address] [place] [address] Location: W-NURSING Radiation Oncology Comment on above: Location: W-NURSING Start: 03-02-2024 End: 03-02-2024 Patient encounter procedure 03/02/2024 12:45 PM EDT Office Visit Radiation Oncology [address] [place] [address] Rodolfo Aguilar MD [address] [place] [address] sim at this time. 4d Radiation Oncology Comment on above: sim at this time. 4d Start: 03-01-2024 End: 03-01-2024 Patient encounter procedure 03/01/2024 10:00 AM EDT Office Visit Radiation Oncology [address] [place] [address] Rodolfo Aguilar MD [address] [place] [address] CONSULT Radiation Oncology Comment on above: CONSULT Start: 03-01-2024 End: 03-01-2024 ambulatory 03/01/2024 9:15 AM EDT [facility] Urology [address] [place] [address] Devin Cortes MD [address] [place] [address] Return Virtual visit friday morning Urology Comment on above: Return Virtual visit friday morning Start: 02-27-2024 End: 02-27-2024 ambulatory 02/27/2024 2:45 PM EDT Infusion Center Hematology/Oncology [address] [place] [address] Wstr, Injection Nirmal [facility] [address] [place] [address] coming in at 8:30 OV - START Q3MO LUPRON* Hematology/Oncology Comment on above: coming in at 8:30 OV - START Q3MO LUPRON* Start: 02-27-2024 Subsequent hospital visit by physician 02/27/2024 12:11 PM EDT Hospital Encounter Radiology CT Scan [address] [place] [address] Scan Start: 02-27-2024 End: 02-27-2024 Patient encounter procedure 02/27/2024 11:15 AM EDT Office Visit Urology [address] [place] [address] Devin Cortes MD [address] [place], [place] [phone] prostate biopsy results Urology Comment on above: prostate biopsy resu lts Start: 02-27-2024 End: 02-27-2024 ambulatory 02/27/2024 8:30 AM EDT Visit (SP) Office Hematology/Oncology [address] [place] [address] [place] [address] [place] [address] OV/BONE SCAN 03/22/LUPRON START TODAY* Hematology/Oncology Comment on above: OV/BONE SCAN 03/22/L UPRON START TODAY* Start: 02-26-2024 End: 05-27-2024 Comprehensive metabolic 2000 panel - Serum or Plasma [facility] Work Phone: Comment on above: Expected: 02/26/2024 , Expires: 05/27/2024 Start: 02-26-2024 End: 05-27-2024 Thyrotropin [Units/volume] in Serum or Plasma [facility] Comment on above: Expected: 02/26/2024 , Expires: 05/27/2024 Start: 02-26-2024 End: 05-27-2024 Urinalysis complete panel - Urine [facility] Comment on above: Expected: 02/26/2024 , Expires: 05/27/2024 Start: 02-20-2024 End: 02-20-2024 Patient encounter procedure 02/20/2024 3:30 PM EDT Appointment Nuclear Medicine [address] [place] [address] Retroperitoneal lymphadenopathy [R59.0]; Prostate cancer (HCC) [C61] Nuclear Medicine Comment on above: 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]; Prostate cancer (HCC) [C61] Start: 02-20-2024 End: 02-20-2024 Patient encounter procedure 02/20/2024 12:30 PM EDT Appointment Nuclear Medicine [address] [place], [place] [address] Retroperitoneal lymphadenopathy [R59.0]; Prostate cancer (HCC) [C61] Nuclear Medicine Comment on above: 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]; Prostate cancer (HCC) [C61] Start: 02-17-2024 End: 02-17-2024 Patient encounter procedure 02/17/2024 3:45 PM EDT Office Visit Urology [address] [place] [address] Devin Cortes MD [address] [place] [address] prostate biopsy results Urology Comment on above: prostate biopsy resu lts Start: 02-13-2024 End: 02-13-2024 ambulatory 02/13/2024 3:20 PM EDT Visit (SP) Office Hematology/Oncology [address] [place], [place] [address] [place] [address] [place] [address] 3 WK OV* Hematology/Oncology Comment on above: 3 WK OV* Start: 02-05-2024 BP Controlled (<130/80) BP Controlle d (<130/80) [facility] Start: 01-26-2024 End: 01-26-2024 Patient encounter procedure 01/26/2024 1:30 PM EDT Office Visit Urology [address] [place] [address] Devin Cortes MD [address] [place] [address] pnb Urology Comment on above: pnb Start: 01-23-2024 End: 01-23-2024 ambulatory 01/23/2024 11:50 AM EDT Visit (SP) Office Hematology/Oncology [address] [place] [address] [place] [address] [place] [address] 3 WK OV* Hematology/Oncology Comment on above: 3 WK OV* Start: 01-16-2024 End: 01-16-2024 Patient encounter procedure 01/16/2024 2:45 PM EDT Office Visit Urology [address] [place] [address] Devin Cortes MD [address] [place] [address] 2-wk follow up Urology Comment on above: 2-wk follow up Start: 01-04-2024 ANNUAL PCP TEAM SAFETY RELIEF VALVE TECHNICIAN KALI DISEASE VISIT ANNUAL PCP TEAM CHRONIC DISEASE VISIT 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 Start: 12-18-2023 End: 12-18-2023 Patient encounter procedure 12/18/2023 1:45 PM EDT Appointment Ambulatory Surgery [address] [place] [address] Fernando Wen MD [address] [place] [address] COLON - NEEDS TO HOLD ELIQUIS 5 DAYS PRIOR Ambulatory Surgery Comment on above: COLON - NEEDS TO HOL D ELIQUIS 5 DAYS PRIOR Start: 12-05-2023 Screening for malign ant neoplasm of colon Colorectal Cancer Screening [facility] Start: 12-04-2023 End: 12-04-2023 Patient encounter procedure 12/04/2023 9:00 AM EDT Appointment Radiology [facility] [place] [address] [place] [address] Constipation, unspecified constipation type [K59.00] Radiology CT [place] Comment on above: Constipation, unspec ified constipation type [K59.00] Start: 10-24-2023 End: 10-24-2023 Patient encounter procedure 10/24/2023 3:40 PM EDT Office Visit Internal Medicine [place] [address] [place], [place] [id number] Cody Carrington MD [address] [place] [address] Yearly, 3 month follow-up Internal Medicine [place] Comment on above: Yearly, 3 month foll ow-up Start: 10-24-2023 End: 01-23-2024 Basic metabolic 2000 panel - Serum or Plasma BASIC METABOLIC PNL Lab Routine Impaired fasting glucose Expected: 10/24/2023, Expires: 01/23/2024 [facility] Work Phone: Comment on above: Expected: 10/24/2023 , Expires: 01/23/2024 Start: 10-24-2023 End: 01-23-2024 CBC panel - Blood by Automated count CBC Lab Routine Anemia, unspecified type Expected: 10/24/2023, Expires: 01/23/2024 [facility] Work Phone: Comment on above: Expected: 10/24/2023 , Expires: 01/23/2024 Start: 10-24-2023 End: 01-23-2024 Hemoglobin A1c in Blood HGB A1C Lab Routine Impaired fasting glucose Expected: 10/24/2023, Expires: 01/23/2024 [facility] Work Phone: Comment on above: Expected: 10/24/2023 , Expires: 01/23/2024 Start: 10-24-2023 End: 01-23-2024 Prostate specific Ag [Mass/volume] in Serum or Plasma PSA/PROSTSPECAG DIAG Lab Routine Elevated PSA Expected: 10/24/2023, Expires: 01/23/2024 [facility] Work Phone: Comment on above: Expected: 10/24/2023 , Expires: 01/23/2024 Start: 10-22-2023 End: 10-22-2023 Patient encounter procedure 10/22/2023 11:20 AM EDT Office Visit [facility] [address] [place] [address] Chris Barrera MD [address] [place] [address] [place] [phone] Referral from Dr. Larkin for afib, PAF w/ symptoms. Ok per MS. [facility] Comment on above: Referral from Dr. Marshall vasquez for afib, PAF w/ symptoms. Ok per MS. Start: 08-17-2023 ANNUAL PCP TEAM SAFETY RELIEF VALVE TECHNICIAN KALI DISEASE VISIT ANNUAL PCP TEAM CHRONIC DISEASE VISIT [facility] Start: 07-20-2023 COLOGUARD (FIT-DNA) COLOGUARD (FIT-D NA) [facility] Start: 07-20-2023 COLORECTAL CANCER SCREENING COLORECTAL CANCER SCREENING [facility] Start: 07-05-2023 ANNUAL PCP TEAM SAFETY RELIEF VALVE TECHNICIAN KALI DISEASE VISIT ANNUAL PCP TEAM CHRONIC DISEASE VISIT [facility] Start: 07-04-2023 End: 09-03-2023 CBC panel - Blood by Automated count CBC Lab Routine Primary hypertension Expected: 07/04/2023, Expires: 09/03/2023 [facility] Work Phone: Comment on above: Expected: 07/04/2023 , Expires: 09/03/2023 Start: 07-04-2023 End: 09-03-2023 Comprehensive metabolic 2000 panel - Serum or Plasma COMP METABOLIC PANEL Lab Routine Hyperlipidemia, unspecified hyperlipidemia type Expected: 07/04/2023, Expires: 09/03/2023 [facility] Work Phone: Comment on above: Expected: 07/04/2023 , Expires: 09/03/2023 Start: 07-04-2023 End: 09-03-2023 Lipid 1996 panel - Serum or Plasma LIPID PANEL BASIC Lab Routine Hyperlipidemia, unspecified hyperlipidemia type Expected: 07/04/2023, Expires: 09/03/2023 [facility] Work Phone: Comment on above: Expected: 07/04/2023 , Expires: 09/03/2023 Start: 07-04-2023 End: 09-03-2023 Thyrotropin [Units/volume] in Serum or Plasma TSH BLD Lab Routine Acquired hypothyroidism Expected: 07/04/2023, Expires: 09/03/2023 [facility] Work Phone: Comment on above: Expected: 07/04/2023 , Expires: 09/03/2023 Start: 06-17-2023 Patient discharge [facility] Start: 06-16-2023 Following clinical pathway protocol [facility] Start: 06-16-2023 Ambulation without limitation [facility] Start: 06-16-2023 Assessment of risk o f venous thromboembolism [facility] Start: 06-16-2023 Catheterization of vein [facility] Start: 06-16-2023 Incentive spirometry [facility] Start: 06-16-2023 Inhalation therapy procedure [facility] Start: 06-16-2023 Insertion of cathete r into peripheral vein [facility] Start: 06-16-2023 Measuring intake and output [facility] Start: 06-16-2023 Oxygen therapy [facility] Start: 06-16-2023 Providing care accor ding to standard [facility] Start: 06-16-2023 Referral to service [facility] Start: 06-16-2023 [facility] Start: 06-16-2023 Hospital admission, emergency, from emergency room, medical nature [facility] Start: 06-16-2023 Admission procedure [facility] Start: 06-16-2023 Patient referral to dietitian [facility] Start: 05-05-2023 Advance Directive Discussion Advance Directive Discussion [facility] Start: 05-05-2023 Behavioral Health Screening Behavioral Health Screening [facility] Start: 05-05-2023 Depression Assessment Depression Ass essment [facility] Start: 02-04-2023 End: 04-06-2023 ISOPSA ASSAY FOR UROLOGY USE ONLY [facility] Work Phone: Comment on above: Expected: 02/04/2023 (Approximate), Expires: 04/06/2023 Start: 01-03-2023 End: 03-05-2023 Basic metabolic 2000 panel - Serum or Plasma [facility] Work Phone: Comment on above: Expected: 01/03/2023 , Expires: 03/05/2023 Start: 01-03-2023 Covid-19 Vaccine () Covid-[address] () [facility] Start: 01-03-2023 Influenza vaccination C [facility] Start: 01-03-2023 End: 11-01-2023 Prostate specific Ag [Mass/volume] in Serum or Plasma [facility] Work Phone: Comment on above: Expected: 01/03/2023 , Expires: 03/05/2023 Start: 12-27-2022 Adult depression screening assessment DEPRESSION SCREENING [facility] Start: 12-27-2022 ANNUAL PCP TEAM SAFETY RELIEF VALVE TECHNICIAN KALI DISEASE VISIT ANNUAL PCP TEAM CHRONIC DISEASE VISIT [facility] Start: 12-27-2022 BP CONTROLLED (<130/80) BP CONTROLLE D (<130/80) [facility] Start: 12-27-2022 COVID-19 VACCINE (3 - Booster for Pfizer series) COVID-19 VACCINE (3 - Booster for Pfizer series) [facility] Comment on above: Postponed from 11/26 (Declined at this time) Postponed from 08/24 (Declined at this time) Start: 11-01-2022 Influenza vaccination INFLUENZA (#1) [facility] Comment on above: Postponed from 01/03 (Declined at this time) Start: 08-17-2022 COLORECTAL CANCER SCREENING COLORECTAL CANCER SCREENING [facility] Start: 08-17-2022 FECAL OCCULT BLOOD FECAL OCCULT BLOO D [facility] Start: 08-17-2022 Screening for malign ant neoplasm of colon [facility] Start: 07-27-2022 ANNUAL PCP TEAM SAFETY RELIEF VALVE TECHNICIAN KALI DISEASE VISIT ANNUAL PCP TEAM CHRONIC DISEASE VISIT [facility] Start: 07-27-2022 BP CONTROLLED (<130/80) BP CONTROLLE D (<130/80) [facility] Start: 06-29-2022 End: 08-29-2022 CBC panel - Blood by Automated count CBC Lab Routine Primary hypertension Expected: 06/29/2022, Expires: 08/29/2022 [facility] Work Phone: Comment on above: Expected: 06/29/2022 , Expires: 08/29/2022 Start: 06-29-2022 End: 08-29-2022 Comprehensive metabolic 2000 panel - Serum or Plasma COMP METABOLIC PANEL Lab Routine Primary hypertension Expected: 06/29/2022, Expires: 08/29/2022 [facility] Work Phone: Comment on above: Expected: 06/29/2022 , Expires: 08/29/2022 Start: 06-29-2022 End: 08-29-2022 Lipid 1996 panel - Serum or Plasma LIPID PANEL BASIC Lab Routine Hyperlipidemia, unspecified hyperlipidemia type Expected: 06/29/2022, Expires: 08/29/2022 [facility] Work Phone: Comment on above: Expected: 06/29/2022 , Expires: 08/29/2022 Start: 06-29-2022 End: 08-29-2022 Thyrotropin [Units/volume] in Serum or Plasma TSH BLD Lab Routine Acquired hypothyroidism Expected: 06/29/2022, Expires: 08/29/2022 [facility] Work Phone: Comment on above: Expected: 06/29/2022 , Expires: 08/29/2022 Start: 05-05-2022 ADVANCE DIRECTIVE DISCUSSION ADVANCE DIRECTIVE DISCUSSION [facility] Start: 01-03-2022 Influenza vaccination INFLUENZA (#1) [facility] Start: 08-18-2021 COLORECTAL CANCER SCREENING COLORECTAL CANCER SCREENING [facility] Start: 06-26-2021 Adult depression screening assessment DEPRESSION SCREENING [facility] Start: 05-05-2021 ADVANCE DIRECTIVE DISCUSSION ADVANCE DIRECTIVE DISCUSSION [facility] Start: 11-26-2020 COVID-19 VACCINE (3 - Booster for Pfizer series) COVID-19 VACCINE (3 - Booster for Pfizer series) [facility] Start: 08-24-2020 COVID-19 VACCINE (3 - Pfizer series) COVID-19 VACCINE (3 - Pfizer series) [facility] Start: 02-24-2018 FECAL OCCULT BLOOD FECAL OCCULT BLOO D [facility] Start: 2017 RSV Vaccine (1 - 1-d ose 75+ series) RSV Vaccine (1 - 1-dose 75+ series) [facility] Start: 06-10-2014 Urine microalbumin profile DTaP,Tdap,Td Vaccine (1 - Tdap) [facility] Start: 09-03-2007 Medicare Annual Well ness Visit Medicare Annual Wellness Visit [facility] Start: 2002 RSV Vaccine (1 - 1-d ose 60+ series) RSV Vaccine (1 - 1-dose 60+ series) [facility] Start: 07-09-1987 COLOGUARD (FIT-DNA) COLOGUARD (FIT-D NA) [facility] Start: 07-09-[address] COLONOGRAPHY [facility] Start: 07-09-1987 Screening for malign ant neoplasm of colon [facility] Start: 07-09-1987 SIGMOIDOSCOPY SIGMOIDOSCOPY [facility] Start: 1960 BP CONTROLLED (<130/80) BP CONTROLLE D (<130/80) [facility] Start: [address] [facility] Start: 1960 Screening for malign ant neoplasm of colon Colonoscopy [facility] Bacteria identified in Urine by Culture BACTERIAL CULTURE, URINE Microbiology Routine Dysuria 05/21/2024 8:52 AM EST [facility] Work Phone: CATHETER INSERT-BORREGO CATHETER I NSERT-BORREGO Procedures Routine Acute urinary retention Ordered: 03/26/2024 [facility] Comment on above: Ordered: 03/26/2024 COLOGUARD COLOGUARD Lab Ro utine Screening for colon cancer Ordered: 07/04/2022 [facility] Work Phone: Comment on above: Ordered: 07/04/2022 End: 11-23-2024 CT Colon and Rectum W air contrast OR CT COLONOGRAPHY SCREENING WO IVCON Radiology Routine Constipation, unspecified constipation type 1 Occurrences starting 10/25/2023 until 11/23/2024 [facility] Work Phone: Comment on above: 1 Occurrences starti ng 10/25/2023 until 11/23/2024 CT Guidance for radi ation treatment of Unspecified body region CT SIM PLANNING RADIATION ONCOLOGY Radiology Routine 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) Ordered: 03/04/2024 [facility] Work Phone: Comment on above: Ordered: 03/04/2024 End: 05-14-2025 CT Kidney WO and W contrast IV CT UROGRAM WO/W IVCON Radiology Routine Bilateral hydronephrosis Other hydronephrosis 1 Occurrences starting 04/14/2024 until 05/14/2025 [facility] Work Phone: Comment on above: 1 Occurrences starti ng 04/14/2024 until 05/14/2025 CT Kidney WO and W contrast IV CT UROGRAM WO/W IVCON Radiology Routine Bilateral hydronephrosis Other hydronephrosis 06/21/2024 11:15 AM EST [facility] Work Phone: Cysto w/simple remov al stone & stent CYSTO W/URETER STENT EXTRACT Procedures Routine Prostate cancer (HCC) Bilateral hydronephrosis Ordered: 07/15/2024 [facility] Work Phone: Comment on above: Ordered: 07/15/2024 ECG COMPLETE [facility] Work Phone: Comment on above: Ordered: 06/16/2023 Hemoglobin.gastroint estin al.lower [Presence] in Stool by Immunoassay FECAL OCCULT BLOOD TEST Lab Routine Screening for colon cancer Ordered: 08/03/2021 [facility] Work Phone: Comment on above: Ordered: 08/03/2021 End: 03-14-2025 NM Whole body Bone Views NM BONE WHOLE BODY Radiology Routine Retroperitoneal lymphadenopathy Prostate cancer (HCC) 1 Occurrences starting 02/13/2024 until 03/14/2025 [facility] Work Phone: Comment on above: 1 Occurrences starti ng 02/13/2024 until 03/14/2025 Patient referral [facility] Work Phone: POST VOID RESIDUAL POST VOID RES IDUAL Procedures Routine Urinary frequency Lower urinary tract symptoms (LUTS) Ordered: 02/04/2023 [facility] Work Phone: Comment on above: Ordered: 02/04/2023 PROSTATE BIOPSY GUKI PROSTATE BI OPSY GUKI Procedures Routine Elevated prostate specific antigen (PSA) Ordered: 02/10/2023 [facility] Work Phone: Comment on above: Ordered: 02/10/2023 PROSTATE BIOPSY GUKI PROSTATE BI OPSY GUKI Procedures Routine Elevated prostate specific antigen (PSA) Ordered: 12/31/2023 [facility] Work Phone: Comment on above: Ordered: 12/31/2023 End: 02-26-2025 Prostate specific Ag [Mass/volume] in Serum or Plasma PROSTATE-SPECIFIC ANTIGEN DIAGNOSTIC Lab Routine Prostate cancer (HCC) Every 6 weeks for 8 Occurrences starting 02/27/2024 until 02/26/2025 [facility] Work Phone: Comment on above: Every 6 weeks for 8 Occurrences starting 02/27/2024 until 02/26/2025 End: 12-07-2024 Screening colonoscopy COLONOSCOPY SCREENING Endoscopy Routine Rectal mass 1 Occurrences starting 12/08/2023 until 12/07/2024 [facility] Work Phone: Comment on above: 1 Occurrences starti ng 12/08/2023 until 12/07/2024 SURGICAL PATHOLOGY SURGICAL PATH OLOGY Lab Routine Elevated prostate specific antigen (PSA) Ordered: 01/26/2024 [facility] Work Phone: Comment on above: Ordered: 01/26/2024 End: 08-14-2025 US Kidney - bilateral and Urinary bladder US KIDNEY/BLADDER Radiology Routine Bilateral hydronephrosis 1 Occurrences starting 07/15/2024 until 08/14/2025 [facility] Comment on above: 1 Occurrences starti ng 07/15/2024 until 08/14/2025 US Kidney - bilatera l and Urinary bladder US KIDNEY/BLADDER Radiology Routine Bilateral hydronephrosis 07/22/2024 8:48 AM EDT [facility] Work Phone: VOIDING TRIAL PROTOCOL VOIDING T RIAL PROTOCOL Procedures Routine Bilateral hydronephrosis Ordered: 03/11/2024 [facility] Work Phone: Comment on above: Ordered: 03/11/2024 VOIDING TRIAL PROTOCOL VOIDING T RIAL PROTOCOL Procedures Routine Bilateral hydronephrosis Ordered: 03/15/2024 [facility] Work Phone: Comment on above: Ordered: 03/15/2024 [facility] Immunizations Immunization Date Immunization Notes Care Provider Fa cili 02-26-2024 influenza, high dose seasonal, preservative-free Cody Carrington MD Work Phone: [facility] 02-26-2024 influenza virus vacc ine, unspecified formulation Cody Carrington MD Work Phone: [facility] 06-20-2021 influenza, high-dose , quadrivalent vaccine (FLUZONE HIGH DOSE QUADRIVALENT) Cody Carrington MD Work Phone: [facility] Work Phone: 06-20-2021 influenza virus vacc ine, unspecified formulation Robert Toscano PA-C Work Phone: [facility] 05-29-2020 zoster vaccine recombinant Cody Carrington MD Work Phone: [facility] Work Phone: 02-09-2020 influenza, high dose seasonal, preservative-free Cody Carrington MD Work Phone: [facility] Work Phone: 02-09-2020 pneumococcal conjuga te vaccine, 13 valent Cody Carrington MD Work Phone: [facility] Work Phone: 02-09-2020 zoster vaccine recombinant Cody Carrington MD Work Phone: [facility] Work Phone: 01-29-2019 influenza, high dose seasonal, preservative-free Cody Carrington MD Work Phone: [facility] 06-21-2016 influenza, high dose seasonal, preservative-free Cody Carrington MD Work Phone: [facility] Work Phone: 05-23-2015 pneumococcal conjuga te vaccine, 13 valent Cody Carrington MD Work Phone: [facility] 01-31-2015 influenza, high dose seasonal, preservative-free Cody Carrington MD Work Phone: [facility] 06-09-2014 tetanus and diphther ia toxoids, adsorbed, preservative free, for adult use (5 Lf of tetanus toxoid and 2 Lf of diphtheria toxoid) Cody Carrington MD Work Phone: [facility] 03-08-2014 influenza, seasonal, injectable Cody Carrington MD Work Phone: [facility] 03-08-2014 pneumococcal polysaccharide vaccine, 23 edie Carrington MD Work Phone: [facility] Payers Date Payer Category Payer [facility] [id number] 2024 Medicare [id number] 2024 Self-pay [id number] 2022 Private Health Insurance AULTCAR [id number] 2022 Unknown [id number] 2020 Unknown MMO MMO MHS [id number] 2020-Present [phone] [address] [address] [place] [address] Indemnity [id number] 2020 Unknown [id number] 2007 Medicare MEDICARE MEDICAR E A AND B [id number] 2007-Present [phone] [address] [address] [place] [address] Medicare [id number] 2007 Medicare [id number] 2007 Medicare [id number] Unknown [id number] Unknown [id number] Unknown [id number] Unknown [id number] Unknown [id number] Unknown [id number] Unknown [id number] Social History Date Type Detail Facility Start: 03-08-2014 End: 03-04-2024 Tobacco smoking status NHIS Ex-smoker [facility] Work Phone: Start: 1960 End: 1977 History of tobacco use Current smoker [facility] Work Phone: Start: 1960 End: 1977 History of tobacco use Cigarette Smoker [facility] Work Phone: Start: 03-08-2014 End: 01-03-2023 Cigarettes smoked current (pack per day) - Reported 1 [facility] Start: 03-08-2014 End: 03-04-2024 Tobacco use and exposure Smokeless tobacco non-user [facility] Work Phone: Start: 07-27-2021 End: 03-01-2024 Alcohol intake Current drinker of alcohol (finding) [facility] Start: 06-26-2020 End: 07-04-2022 History SDOH Housing Unable to Pay 3 [facility] Start: 1940 Sex Assigned At Not on file C [facility] Start: 07-07-2021 End: 12-27-2021 Exposure to SARS-CoV-2 (event) Not sure [facility] Start: 07-04-2022 History SDOH Alcohol Frequency 1 [facility] Start: 06-26-2020 History SDOH Alcohol Std Drinks 98 [facility] Start: 07-04-2022 History SDOH Physica l Activity DPW 0 [facility] Start: 07-04-2022 History SDOH Stress 2 [facility] Start: 07-04-2022 End: 01-03-2023 Social connection and isolation panel [facility] Start: 01-26-2014 In a typical week, h ow many times do you talk on the telephone with family, friends, or neighbors? Patient refused [facility] Are you now , , , , never or living with a partner? Refused [facility] How often to you hav e a drink containing alcohol? Never [facility] Do you feel stress - tense, restless, nervous, or anxious, or unable to sleep at night because your mind is troubled all the time - these days [OSQ] Only a little [facility] (I/We) worried meaghan er (my/our) food would run out before (I/we) got money to buy more. DK or Refused [facility] Start: 06-16-2023 End: 06-16-2023 Tobacco smoking status NHIS Unknown if ever smoked [facility] Start: 07-03-2020 None [facility] Start: 07-03-2020 Alone [facility] Start: 1940 Sex Assigned At Male W [facility] Start: 01-02-2024 Tobacco Comment Pt smoked 1 pa ck daily x 14 years, quit in 1965 [facility] History of tobacco use Passive smoker [facility] Start: 03-04-2024 End: 01-04-2025 Alcoholic beverage intake Ex-drinker (finding) [facility] Do you feel stress - tense, restless, nervous, or anxious, or unable to sleep at night because your mind is troubled all the time - these days [OSQ] Not at all [facility] In the past 12 month s, was there a time when you were not able to pay the mortgage or rent on time? No [facility] Medical Equipment Procedure Code Equipment Code Equipment Origin al Text Equipment Identifier Dates Set 6fr .038in 2 Pigtail Curve Filiform Black Stain[employer] Vinyl - [id number] Start: 03-08-2024 Set 6fr .038in 2 Pigtail Curve Filiform Black Stainless [employer] Vinyl - [id number] Start: 03-08-2024 Goals Date Patient Goal Desired Activity /State Personal health goal Functional Status Date Assessment Result Facility 01-04-2025 Total score [AUDIT-C] 0 01/05/20 25 9:52 AM Cody Rayo MD [facility] 06-17-2023 Functional status Activity Abili ty Independent [facility] Work Phone: 01-29-2019 Are you deaf, or do you have serious difficulty hearing No 01/29/2019 8:38 AM Cody Rayo MD No [facility] 01-29-2019 Are you blind, or do you have serious difficulty seeing, even when wearing glasses No 01/29/2019 8:38 AM Cody Rayo MD No [facility] 01-29-2019 Do you have serious difficulty walking or climbing stairs No 01/29/2019 8:38 AM Cody Rayo MD No [facility] 01-29-2019 Do you have difficul ty dressing or bathing No 01/29/2019 8:38 AM Cody Rayo MD No [facility] 01-29-2019 Because of a physica l, mental, or emotional condition, do you have difficulty doing errands alone such as visiting a physician's office or shopping No 01/29/2019 8:38 AM Cody Rayo MD No [facility] Mental Status Date Assessment Result Facility 06-17-2023 Cognitive function Voice/Name [facility] Work Phone: 06-16-2023 Cognitive function Awake;Alert;A ppropriate; Follows Commands [facility] Work Phone: 01-29-2019 Because of a physica l, mental, or emotional condition, do you have serious difficulty concentrating, remembering, or making decisions No 01/29/2019 8:38 AM Cody Rayo MD No [facility] Clinical Notes 07-03-2020 to 02-25-2025 Cody Carrington MD - 01/04/2025 10:15 AM Cody Buckley MD - 01/04/2025 10:07 AM EDTPatient InstructionsJohan Payne MD - 11/12/2024 9:14 AM EDTPatient Instructions Note Date & Type Note Facility 02-25-2025 Note HNO ID: [id number] Author: RADHA LARSEN MD Service: ? 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 --- SUMMARY: Castrate sensitive metastatic prostate cancer On Eligard and Xtandi through oncology XRT Lymphadenopathy and bilateral hydronephrosis (stents out) resolved PSA 0.26 from 0.3 from 0.73 from 1.88 (down from 73.59 originally) Continue medical therapy through oncology Repeat renal US with next visit 1. Prostate cancer (HCC) (C61) Castrate sensitive metastatic prostate cancer. Excellent response to therapy with PSA now 0.26 (down from 73.5 originally). No new symptoms. Ongoing fatigue, hot flashes, and lightheadedness likely related to hormone therapy. Oncology managing Eligard and Xtandi. Prior XRT. - Continue medical therapy through oncology. - Monitor for side effects of hormone therapy. - Follow up with me in 6 months for PSA. - No new intervention from urology at this time. 2. 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 No evidence of progression. - Continue surveillance through oncology. 4. Urinary frequency (R35.0) No voiding symptoms. No medical therapy needed for voiding complaints. Prior retention resolved. 5. Stage 3a chronic kidney disease (HCC) (N18.31) Kidney function continues to improve. Creatinine now 1.23. No evidence of hydronephrosis. Stents removed. - Plan for renal ultrasound at next visit in 6 months to monitor kidney status. 6. History of hydronephrosis (Z87.448) 7. Other hydronephrosis (N13.39) Hydronephrosis resolved. Stents out 07/15/2024. No recurrence on recent imaging. - No further intervention planned. - Discussed concerning signs and symptoms; patient knows to report these immediately. If unable to reach urologist, patient knows to report to emergency department for evaluation. 8. USP (current) use of anticoagulants (Z79.01) Chronically anticoagulated on Eliquis. No bleeding or thrombotic complications reported. -- FOLLOW UP: Return in about 6 months (around 08/26/2025). ORDERS: Orders Placed This Encounter US KIDNEY/BLADDER Standing Status: Future Expected Date: 08/26/2025 Expiration Date: 03/27/2026 --- HISTORY OF PRESENT ILLNESS: Prior notes were reviewed. The patient is an 84-year-old male with castrate-sensitive metastatic prostate cancer, presenting for a 6-month follow-up. The patient was originally diagnosed with metastatic prostate cancer after presenting with significant lymphadenopathy and bilateral hydronephrosis, which required bilateral ureteral stent placement. The hydronephrosis has since resolved and the stents have been removed. He is currently under the care of oncology and is receiving Elagard and Xtandi, with prior radiation therapy completed. He is also chronically anticoagulated on Eliquis. He reports feeling pretty good overall, but notes episodes of lightheadedness and dizziness, as well as significant fatigue and hot flashes. He is working with his oncologist to determine the cause of the lightheadedness and dizziness. He denies hematuria, abdominal pain, weight loss, and fevers. He also reports no voiding symptoms and is not on any medical therapy for voiding complaints. He was recently seen by oncology a few days ago, and his PSA continues to decrease, now at 0.26 from 0.3, with an original value of 73.5. He has not yet started a new medication that oncology plans to initiate, pending dental clearance. REVIEW OF SYSTEMS: Constitutional: (+) fatigue, (-) weight loss, (-) fever Gastrointestinal: (-) abdominal pain Genitourinary: (-) hematuria Neurological: (+) dizziness Endocrine: (+) hot flashes All other systems negative unless described above. ALLERGIES: ALLERGIES Allergen Reactions Latex Rash MEDICATIONS: prochlorperazine (COMPAZINE) 10 mg tablet Take 1 tablet by mouth every 6 hours as needed. pantoprazole DR (PROTONIX) 20 mg tablet Take 1 tablet by mouth once daily. ondansetron orally disintegrating (ZOFRAN ODT) 8 mg disintegrating tablet Take 1 tablet by mouth every 8 ho (more content not included)... [facility] 02-22-2025 Note HNO ID: [id number] Author: PINA SCHUSTER, ? Service: ? Author Type: Nurse Practitioner Type: Progress Notes Filed: 02/22/2025 17:54 Note Text: Clint Villar 1940 02/22/2025 HISTORY OF PRESENT ILLNESS: Clint Villar is a 84 year old male in excellent health had a cologuard come back positive. A colonography CT scan was done that showed retroperitoneal adenopathy, enlarged prostate gland and possible rectal mass. Colonoscopy was negative for rectal mass. Saw urology PSA 73.59 (was 71 in January 2023). Prostate enlarged and firm. Biopsy of prostate is planned for mid January. 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 Reviewed case also with Dr Aguilar. Met in follow up, reviewed prostate biopsy shows adenocarcinoma. Bone scan focally positive. Retro peritoneal adenopathy. Bone scan shows osseous mets PSA now normal, we see improvement in adenopathy, hydronephrosis Recurrent UTI since stent placement. Lupron started 02-27-24. Enzalutamide started 07-09-24 11-12-24 follow up, feels tired. Planning to retire soon. Interval Hx 02/11/2025: Reports worsening headaches, nausea, lightheadedness, fatigue over the last few months. He felt to be related to xtandi. Has been taking zofran with xtandi, but hasn't helped much. No new aches or pains. No changes in bladder, habits if anything its getting better less nocturia. Constipation has been an ongoing issues. No Shortness of Breath, CP, or palpitations. No tooth issues. No hematuria or hematochezia. Interval Hx: Patient presented to office today with his spouse. He has been holding xtandi for 1 week as we discussed in last OV on 02/11/25 and this has made him anxious. Reviewed that though PO medication was briefly held to assess symptoms listed above, he remains on lupron injections. He notes that nausea has improved since he has been off of xtandi has not needed to take any antiemetics. Bowels moving well. No abd pains. Denies bleeding. Continues to have intermittent lightheadedness and dizziness. None currently. Spouse feels that he may need to see ENT? He has had recent change in synthroid. Also note bradycardia on chart review for which he follows with [facility]. Would recommend following up with PCP. CLINICAL IMPRESSION: Prostate cancer on biopsy, stage IV PSA improved on GnRH agonist - reviewed today RECOMMENDATION/PLAN: 1. continue GnRH agonist, - Ok to restart xtandi, advised to call if symptoms of nausea return. - discussed with Dr Payne, consider switch to apalutamide if unable to tolerate enzalutamide. 2. Will discuss adding bisphosphonate depending on kidney fxn. - CMP pending today, but improvement noted in 11/2024 - reviewed with him today -will need dental clearance. 3. Follow up with PCP Otherwise return as scheduled Advised to call with any questions or concerns in the meantime. 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 PAST SURGICAL HISTORY 2005: OPEN REPAIR OF ROTATOR CUFF ACUTE; Right Comment: Rotator cuff repair, right 1950s: TONSILLECTOMY PRIMARY/SECONDARY Comment: Tonsillectomy FAMILY HISTORY Problem Relation Age of Onset other (Other) Mother no contact Coronary Artery Disease Father Heart Failure Father Diabetes Father Cancer Paternal Grandfather Cancer Half-brother Social History Tobacco Use Smoking status: Former Types: Cigarettes Smokeless tobacco: Never Tobacco comments: Pt smoked 1 pack daily x 20 years, Vaping Use Vaping status: Never Used Substance Use Topics Alcohol use: Yes Alcohol/week: 1.0 standard drink of alcohol Types: 1 Cans of beer per week Drug use: Never ALLERGIES: ALLERGIES No Known Allergies CURRENT OUTPATIENT MEDICATIONS: levothyroxine (SYNTHROID) 112 mcg tablet Take 1 tablet by mouth once daily. Take on empty stomach. For thyroid finasteride (PROSCAR) 5 mg table (more content not included)... [facility] 02-11-2025 Note HNO ID: [id number] Author: DAWN JAIMES LPN Service: ? Author Type: Licensed Nurse Type: Progress Notes Filed: 02/14/2025 14:06 Note Text: Eligard injection administered, RLQ tolerated well, no immediate adverse reactions noted. See office notes Dawn Jaimes LPN [facility] 02-11-2025 Note HNO ID: [id number] Author: PINA SCHUSTER, ? Service: ? Author Type: Nurse Practitioner Type: Progress Notes Filed: 02/11/2025 16:27 Note Text: Clint Villar 1940 02/11/2025 HISTORY OF PRESENT ILLNESS: Clint Villar is a 84 year old male in excellent health had a cologuard come back positive. A colonography CT scan was done that showed retroperitoneal adenopathy, enlarged prostate gland and possible rectal mass. Colonoscopy was negative for rectal mass. Saw urology PSA 73.59 (was 71 in January 2023). Prostate enlarged and firm. Biopsy of prostate is planned for mid January. 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 Reviewed case also with Dr Aguilar. Met in follow up, reviewed prostate biopsy shows adenocarcinoma. Bone scan focally positive. Retro peritoneal adenopathy. Bone scan shows osseous mets PSA now normal, we see improvement in adenopathy, hydronephrosis Recurrent UTI since stent placement. Lupron started 02-27-24. Enzalutamide started 07-09-24 11-12-24 follow up, feels tired. Planning to retire soon. Interval Hx: Reports worsening headaches, nausea, lightheadedness, fatigue over the last few months. He felt to be related to xtandi. Has been taking zofran with xtandi, but hasn't helped much. No new aches or pains. No changes in bladder, habits if anything its getting better less nocturia. Constipation has been an ongoing issues. No Shortness of Breath, CP, or palpitations. No tooth issues. No hematuria or hematochezia. CLINICAL IMPRESSION: Prostate cancer on biopsy, stage IV PSA improved on GnRH agonist - reviewed today RECOMMENDATION/PLAN: 1. continue GnRH agonist, - hold xtandi for 1 week to see if improvement in symptoms - will reach out by phone either next Friday or Friday 2. Will discuss adding bisphosphonate depending on kidney fxn. - CMP pending today, but improvement noted in 11/2024 - reviewed with him today -will need dental clearance. Advised to call with any questions or concerns in the meantime. 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 PAST SURGICAL HISTORY 2005: OPEN REPAIR OF ROTATOR CUFF ACUTE; Right Comment: Rotator cuff repair, right 1950s: TONSILLECTOMY PRIMARY/SECONDARY Comment: Tonsillectomy FAMILY HISTORY Problem Relation Age of Onset other (Other) Mother no contact Coronary Artery Disease Father Heart Failure Father Diabetes Father Cancer Paternal Grandfather Cancer Half-brother Social History Tobacco Use Smoking status: Former Types: Cigarettes Smokeless tobacco: Never Tobacco comments: Pt smoked 1 pack daily x 20 years, Vaping Use Vaping status: Never Used Substance Use Topics Alcohol use: Yes Alcohol/week: 1.0 standard drink of alcohol Types: 1 Cans of beer per week Drug use: Never ALLERGIES: ALLERGIES No Known Allergies CURRENT OUTPATIENT MEDICATIONS: levothyroxine (SYNTHROID) 112 mcg tablet Take 1 tablet by mouth once daily. Take on empty stomach. For thyroid finasteride (PROSCAR) 5 mg tablet Take 1 tablet by mouth once daily apixaban (ELIQUIS) 5 mg tab(s) Take 1 tablet by mouth two times a day. metoprolol tartrate, short acting, (LOPRESSOR) 50 mg tablet Take 1 tablet by mouth two times a day. amLODIPine (NORVASC) 5 mg tablet Take 1 tablet by mouth once daily. hydrOXYzine HCl (ATARAX) 25 mg tablet Take 1 tablet by mouth daily at bedtime. losartan (COZAAR) 100 mg tablet Take 1 tablet by mouth once daily. valACYclovir (VALTREX) 500 mg tablet Take 1 tablet by mouth once daily. atorvastatin (LIPITOR) 40 mg tablet Take 1 tablet by mouth daily at bedtime. tamsulosin (FLOMAX) 0.4 mg Take 2 capsules by mouth daily at bedtime. cyclobenzaprine (FLEXERIL) 10 mg tablet Take 1 tablet by mouth twice daily as needed for muscle spasm. levoFLOXacin (LEVAQUIN) 750 mg tablet Take 1 tablet by mouth once daily. Start the day before the biopsy (more content not included)... [facility] 01-04-2025 Note HNO ID: [id number] Author: CODY CARRINGTON MD Service: ? Author Type: Physician Type: Progress Notes Filed: 01/04/2025 10:28 Note Text: Subjective Clint Villar is a 84 year old male. He is doing better overall and planning a trip to [place]. His hypertension and lipids were controlled. Atrial fibrillation was controlled and anticoagulation maintained. He was tolerating fatigue from his chemotherapy. BPH was controlled. We reviewed his recent labs and chronic kidney disease. His thyroid will need rechecked next month. 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 multivit-minerals/folic acid (MULTIVITAMIN GUMMIES PO) Take 2 pieces of gum by mouth q 12 HR. cyclobenzaprine (FLEXERIL) 10 mg tablet Take 1 tablet by mouth two times a day as needed for muscle spasm. atorvastatin (LIPITOR) 40 mg tablet Take 1 tablet by mouth daily at bedtime. hydrOXYzine HCl (ATARAX) 25 mg tablet Take 1 tablet by mouth daily at bedtime. losartan (COZAAR) 100 mg tablet Take 1 tablet by mouth once daily. tamsulosin (FLOMAX) 0.4 mg Take 2 capsules by mouth daily at bedtime. fluticasone (FLONASE) 50 mcg/actuation nasal spray Use 1 spray in each nostril daily at bedtime. amLODIPine (NORVASC) 5 mg tablet Take 1 tablet by mouth once daily. enzalutamide (XTANDI) 80 mg tablet Take 2 tablets (160 mg) by mouth once daily. apixaban (ELIQUIS) 5 mg tab(s) Take 1 tablet by mouth two times a day. pantoprazole DR (PROTONIX) 20 mg tablet Take 1 tablet by mouth once daily. ondansetron orally disintegrating (ZOFRAN ODT) 8 mg disintegrating tablet Take 1 tablet by mouth every 8 hours as needed for nausea/vomiting. valACYclovir (VALTREX) 500 mg tablet Take 1 tablet by mouth once daily. No current facility-administered medications for this visit. Review of Systems Constitutional: Positive for fatigue. Respiratory: Negative for shortness of breath. Cardiovascular: Negative for chest pain, palpitations and leg swelling. Gastrointestinal: Negative. Genitourinary: Negative for difficulty urinating. Neurological: Positive for light-headedness. Negative for dizziness and headaches. Objective BP 138/75 (BP Site: Left Arm, BP Position: Sitting, BP Cuff Size: Large Adult) Pulse (!) 47 Ht 167 cm (5' 5.75) Wt 90.3 kg (199 lb 1.2 oz) BMI 32.38 kg/m? Physical Exam Constitutional: General: He is not in acute distress. Appearance: He is not ill-appearing. HENT: Nose: No congestion or rhinorrhea. Eyes: Conjunctiva/sclera: Conjunctivae normal. Cardiovascular: Rate and Rhythm: Regular rhythm. Bradycardia present. Heart sounds: S1 normal and S2 normal. No murmur heard. No gallop. Pulmonary: Breath sounds: Normal breath sounds. Musculoskeletal: Right lower leg: No edema. Left lower leg: No edema. Neurological: General: No focal deficit present. Mental Status: He is alert. Gait: Gait normal. Latest Ref [facility] 11/12/2024 WBC 3.70 - 11.00 k/uL 5.15 RBC 4.20 - 6.00 m/uL 4.05 (L) Hemoglobin 13.0 - 17.0 g/dL 13.7 Hematocrit 39.0 - 51.0 % 40.4 MCV 80.0 - 100.0 fL 99.8 MCH 26.0 - 34.0 pg 33.8 MCHC 30.5 - 36.0 g/dL 33.9 RDW-CV 11.5 - 15.0 % 14.0 Platelet Count 150 - 400 k/uL 157 MPV 9.0 - 12.7 fL 9.0 Absolute nRBC <0.01 k/uL <0.01 Cholesterol, Total <200 mg/dL 179 Triglyceride <150 mg/dL 181 (H) HDL Cholesterol >39 mg/dL 46 LDL Cholesterol, Calculated <100 mg/dL 102 (H) Non HDL Cholesterol <130 mg/dL 133 (H) VLDL Cholesterol <30 mg/dL 30 (H) TC:HDL Ratio <5.10 3.89 LDL:HDL Ratio <2.54 2.22 Fasting Time hrs 12 Hemoglobin A1C 4.3 - 5.6 % 6.0 (H) Estimated Average Glucose mg/dL 126 TSH 0.270 - 4.200 mIU/L 6.820 (H) Legend: (L) Low (H) High ASSESSMENT/PLAN: 1. Medicare annual wellness visit, subsequent - ICD9: V70.0, ICD10: Z00.00 (primary diagnosis) See wellness visit. 2. Gastroesophageal reflux disease, unspecified whether esophagitis present - ICD9: 530.81, ICD10: K21.9 Controlled. Continue medication. - PANTOPRAZOLE 20 MG TABLET,DELAYED RELEASE 3. Herpes infection - ICD9: 054.9, ICD10: B00.9 Controlled. Continue chronic suppression. - VALACYCLOVIR 500 MG TABLET 4. 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) - ICD9: 196.2, ICD10: C77.2 - Stable. Follow with oncology. 5. Stage 3a chronic kidney disease (HCC) - ICD9: 585.3, ICD10: N18.31 - eGFR: 45 Stable (more content not included)... [facility] 01-04-2025 History of Present illness Narrative Subjective Clint Villar is a 84 year old male. He is doing better overall and planning a trip to [place]. His hypertension and lipids were controlled. Atrial fibrillation was controlled and anticoagulation maintained. He was tolerating fatigue from his chemotherapy. BPH was controlled. We reviewed his recent labs and chronic kidney disease. His thyroid will need rechecked next month. 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 multivit-minerals/folic acid (MULTIVITAMIN GUMMIES PO) Take 2 pieces of gum by mouth q 12 HR. cyclobenzaprine (FLEXERIL) 10 mg tablet Take 1 tablet by mouth two times a day as needed for muscle spasm. atorvastatin (LIPITOR) 40 mg tablet Take 1 tablet by mouth daily at bedtime. hydrOXYzine HCl (ATARAX) 25 mg tablet Take 1 tablet by mouth daily at bedtime. losartan (COZAAR) 100 mg tablet Take 1 tablet by mouth once daily. tamsulosin (FLOMAX) 0.4 mg Take 2 capsules by mouth daily at bedtime. fluticasone (FLONASE) 50 mcg/actuation nasal spray Use 1 spray in each nostril daily at bedtime. amLODIPine (NORVASC) 5 mg tablet Take 1 tablet by mouth once daily. enzalutamide (XTANDI) 80 mg tablet Take 2 tablets (160 mg) by mouth once daily. apixaban (ELIQUIS) 5 mg tab(s) Take 1 tablet by mouth two times a day. pantoprazole DR (PROTONIX) 20 mg tablet Take 1 tablet by mouth once daily. ondansetron orally disintegrating (ZOFRAN ODT) 8 mg disintegrating tablet Take 1 tablet by mouth every 8 hours as needed for nausea/vomiting. valACYclovir (VALTREX) 500 mg tablet Take 1 tablet by mouth once daily. No current facility-administered medications for this visit. Review of Systems Constitutional: Positive for fatigue. Respiratory: Negative for shortness of breath. Cardiovascular: Negative for chest pain, palpitations and leg swelling. Gastrointestinal: Negative. Genitourinary: Negative for difficulty urinating. Neurological: Positive for light-headedness. Negative for dizziness and headaches. Objective BP 138/75 (BP Site: Left Arm, BP Position: Sitting, BP Cuff Size: Large Adult) Pulse (!) 47 Ht 167 cm (5' 5.75) Wt 90.3 kg (199 lb 1.2 oz) BMI 32.38 kg/m Physical Exam Constitutional: General: He is not in acute distress. Appearance: He is not ill-appearing. HENT: Nose: No congestion or rhinorrhea. Eyes: Conjunctiva/sclera: Conjunctivae normal. Cardiovascular: Rate and Rhythm: Regular rhythm. Bradycardia present. Heart sounds: S1 normal and S2 normal. No murmur heard. No gallop. Pulmonary: Breath sounds: Normal breath sounds. Musculoskeletal: Right lower leg: No edema. Left lower leg: No edema. Neurological: General: No focal deficit present. Mental Status: He is alert. Gait: Gait normal. Latest Ref Rng 11/12/2024 WBC 3.70 - 11.00 k/uL 5.15 RBC 4.20 - 6.00 m/uL 4.05 (L) Hemoglobin 13.0 - 17.0 g/dL 13.7 Hematocrit 39.0 - 51.0 % 40.4 MCV 80.0 - 100.0 fL 99.8 MCH 26.0 - 34.0 pg 33.8 MCHC 30.5 - 36.0 g/dL 33.9 RDW-CV 11.5 - 15.0 % 14.0 Platelet Count 150 - 400 k/uL 157 MPV 9.0 - 12.7 fL 9.0 Absolute nRBC <0.01 k/uL <0.01 Cholesterol, Total <200 mg/dL 179 Triglyceride <150 mg/dL 181 (H) HDL Cholesterol >39 mg/dL 46 LDL Cholesterol, Calculated <100 mg/dL 102 (H) Non HDL Cholesterol <130 mg/dL 133 (H) VLDL Cholesterol <30 mg/dL 30 (H) TC:HDL Ratio <5.10 3.89 LDL:HDL Ratio <2.54 2.22 Fasting Time hrs 12 Hemoglobin A1C 4.3 - 5.6 % 6.0 (H) Estimated Average Glucose mg/dL 126 TSH 0.270 - 4.200 mIU/L 6.820 (H) Legend: (L) Low (H) High ASSESSMENT/PLAN: 1. Medicare annual wellness visit, subsequent - ICD9: V70.0, ICD10: Z00.00 (primary diagnosis) See wellness visit. 2. Gastroesophageal reflux disease, unspecified whether esophagitis present - ICD9: 530.81, ICD10: K21.9 Controlled. Continue medication. - PANTOPRAZOLE 20 MG TABLET,DELAYED RELEASE 3. Herpes infection - ICD9: 054.9, ICD10: B00.9 Controlled. Continue chronic suppression. - VALACYCLOVIR 500 MG TABLET 4. 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) - ICD9: 196.2, ICD10: C77.2 - Stable. Follow with oncology. 5. Stage 3a chronic kidney disease (HCC) - ICD9: 585.3, ICD10: N18.31 - eGFR: 45 Stable - Counseled on avoiding NSAIDs, adequate hydration 6. Hypothyroidism, unspecified type - ICD9: 244.9, ICD10: E03.9 - continue current dose of Synthroid - Repeat TSH next month. 7. Primary hypertension - ICD9: 401.9, ICD10: I10 - Improving control - Continue current medications - Reviewed risks of hypertension and principles of treatment 8. Impaired fasting glucose - ICD9: 790.21, ICD10: R73.01 - Stable. Low carb diet. 9. Hyperlipidemia, unspecified hyperlipidemia type - ICD9: 272.4, ICD10: E78.5 - Worsening control - Continue current medications - Counseled on healthy diet and regular exercise - Message for follow up labs in 6 months. Cody Carrington MD Images from the original note were not included. Clint Villar is a 84 year old male here for a Medicare wellness visit. Medicare Health Risk Assessment General Health Fair Exercise: Minutes/Day 20 min Exercise: Days/Week 3 days Alcohol: Daily Use Never Alcohol: Drinks/Day Patient does not drink Alcohol: 6 or more drinks Never Feel off balance Yes Concerns: Teeth/Dentures No Concerns: Sexual function No Troubled by feelings None of the above Frequency: Eating healthy diet Nearly every day ADLs requiring help None of the above Safety precautions in home/vehicle Yes Smoke, vape, chews tobacco No Difficulty hearing Yes Difficulty seeing No Current Providers Specialists: I have reviewed specialist-related care of the patient in the medical record. Current care team: Patient Care Team: Cody Carrington MD as PCP - General (Internal Medicine) Johan Payne MD (Hematology/Oncology) Leela Drake, [employer] as [place] (Internal Medicine) Radha Larsen MD (Urology) Rodolfo Aguilar MD (Radiation Oncology) Outside specialists seen: Sruthi Larkin as Specialty Medical Sonographer (Cardiology) Medical/Family history review Reviewed and updated problem list, medical/surgical/family/social history, medications, and allergies. Opioid use review Opioid Medications (last 90 days) No data to display Anxiety/Depression screening Recommendation: no further intervention at this time Cognitive screening Mini Cog Score: 5 Cognitive screening reviewed and No further action needed (score 3-5). Functional Observation Was the patient's Timed Up & Go test unsteady or >= 12 seconds? No Advance Care Planning Patient was not able to provide a surrogate decision maker or written advance directives Measurements BP 138/75 (BP Site: Left Arm, BP Position: Sitting, BP Cuff Size: Large Adult) Pulse (!) 47 Ht 167 cm (5' 5.75) Wt 90.3 kg (199 lb 1.2 oz) BMI 32.38 kg/m Vision Screening: Follows with optometry/ophthalmology Right: 20/30 Left: 20/ 50 Both: 2040 Assessment/Plan Medicare annual wellness visit, subsequent (Z00.00) - Counseled on healthy diet and regular exercise - Fall avoidance information provided - Personalized prevention plan provided - Discussed need for and benefit of weight loss. BMI 32.38 kg/(m^2) - Vaccine recommendations reviewed. Get from the pharmacy. Cody Carrington MD documented in this encounter [facility] 01-04-2025 Instructions Cody Carrington MD - 01/04/2025 10:12 AM EDT Screening schedule The following prevention plan is recommended: Medicare Annual Wellness Visit Never done DTaP,Tdap,Td Vaccine(1 - Tdap) due on 06/10/2014 RSV Vaccine(1 - 1-dose 75+ series) Never done Advance Directive Discussion due on 05/05/2024 Influenza Vaccine(1) due on 01/03/2025 WHAT YOU CAN DO TO PREVENT FALLS Many falls can be prevented. By making some changes, you can lower your chances of falling. Four things YOU can do to prevent falls for you* and your caregiver 1. Begin a regular exercise program Exercise is one of the most important ways to lower your chances of falling. It makes you stronger and helps you feel better. Exercises that improve balance and coordination (like Zoran Chi) are the most helpful. Lack of exercise leads to weakness and increases your chances of falling. Ask your doctor or health care provider about the best type of exercise program for you. 2. Have your health care provider review your medicines Have your doctor or pharmacist review all the medicines you take, even [id number] medicines. As you get older, the way medicines work in your body can change. Some medicines, or combinations of medicines, can make you sleepy or dizzy and can cause you to fall. 3. Have your vision checked Have your eyes checked by an eye doctor at least once a year. You may be wearing the wrong glasses or have a condition like glaucoma or cataracts that limits your vision. Poor vision can increase your chances of falling. 4. Make your home safer About half of all falls happen at home. To make your home safer: Remove things you can trip over (like papers, books, clothes, and shoes) from stairs and places where you walk. Remove small throw rugs or use double-sided tape to keep the rugs from slipping. Keep items you use often in cabinets you can reach easily without using a step stool. Have grab bars put in next to your toilet and in the tub or shower. Use non-slip mats in the bathtub and on shower floors. Improve the lighting in your home. As you get older, you need brighter lights to see well. Hang light-weight curtains or shades to reduce glare. Have handrails and lights put in on all staircases. Wear shoes both inside and outside the house. Avoid going barefoot or wearing slippers. For more information, contact: Centers for Disease Control and Prevention www.cdc.gov/injury * This information may not apply if you have certain medical conditions. documented in this encounter [facility] 01-04-2025 Note HNO ID: [id number] Author: CODY CARRINGTON MD Service: ? Author Type: Physician Type: Progress Notes Filed: 01/04/2025 10:28 Note Text: Clint Villar is a 84 year old male here for a Medicare wellness visit. Medicare Health Risk Assessment General Health Fair Exercise: Minutes/Day 20 min Exercise: Days/Week 3 days Alcohol: Daily Use Never Alcohol: Drinks/Day Patient does not drink Alcohol: 6 or more drinks Never Feel off balance Yes Concerns: Teeth/Dentures No Concerns: Sexual function No Troubled by feelings None of the above Frequency: Eating healthy diet Nearly every day ADLs requiring help None of the above Safety precautions in home/vehicle Yes Smoke, vape, chews tobacco No Difficulty hearing Yes Difficulty seeing No Current Providers Specialists: I have reviewed specialist-related care of the patient in the medical record. Current care team: Patient Care Team: Cody Carrington MD as PCP - General (Internal Medicine) Johan Payne MD (Hematology/Oncology) Leela Drake, DISTRIBUTION SPEC.[employer]ATION ATTENDANT as [place] (Internal Medicine) Radha Larsen MD (Urology) Rodolfo Aguilar MD (Radiation Oncology) Outside specialists seen: Sruthi Larkin as Specialty Medical Sonographer (Cardiology) Medical/Family history review Reviewed and updated problem list, medical/surgical/family/social history, medications, and allergies. Opioid use review Opioid Medications (last 90 days) No data to display Anxiety/Depression screening Recommendation: no further intervention at this time Cognitive screening Mini Cog Score: 5 Cognitive screening reviewed and No further action needed (score 3-5). Functional Observation Was the patient's Timed Up AND Go test unsteady or >= 12 seconds? No Advance Care Planning Patient was not able to provide a surrogate decision maker or written advance directives Measurements BP 138/75 (BP Site: Left Arm, BP Position: Sitting, BP Cuff Size: Large Adult) Pulse (!) 47 Ht 167 cm (5' 5.75) Wt 90.3 kg (199 lb 1.2 oz) BMI 32.38 kg/m? Vision Screening: Follows with optometry/ophthalmology Right: 20/30 Left: 20/ 50 Both: 20/40 Assessment/Plan Medicare annual wellness visit, subsequent (Z00.00) - Counseled on healthy diet and regular exercise - Fall avoidance information provided - Personalized prevention plan provided - Discussed need for and benefit of weight loss. BMI 32.38 kg/(m2) - Vaccine recommendations reviewed. Get from the pharmacy. Cody Carrington MD [facility] 11-12-2024 Note HNO ID: [id number] Author: JOHAN PAYNE MD Service: ? Author Type: Physician Type: Progress Notes Filed: 11/12/2024 10:16 Note Text: (Elements copied from my note dated July 09, 2024, have been reviewed and updated where appropriate, and all reflect current assessment and medical decision making from today's encounter, November 12, 2024) HISTORY OF PRESENT ILLNESS: Clint Villar is a 84 year old male in excellent health had a cologuard come back positive. A colonography CT scan was done that showed retroperitoneal adenopathy, enlarged prostate gland and possible rectal mass. Colonoscopy was negative for rectal mass. Saw urology PSA 73.59 (was 71 in January 2023). Prostate enlarged and firm. Biopsy of prostate is planned for mid January. 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 Reviewed case also with Dr Aguilar. Met in follow up, reviewed prostate biopsy shows adenocarcinoma. Bone scan focally positive. Retro peritoneal adenopathy. Bone scan shows osseous mets PSA now normal, we see improvement in adenopathy, hydronephrosis Recurrent UTI since stent placement. Lupron started 02-27-24. Enzalutamide started 07-09-24 11-12-24 follow up, feels tired. Planning to retire soon. CLINICAL IMPRESSION: Prostate cancer on biopsy, stage IV PSA improved on GnRH agonist RECOMMENDATION/PLAN: 1. continue GnRH agonist, enzalutamide. 2. Will discuss adding bisphosphonate depending on how creatinine goes. Written and verbal health teaching given to patient, patient verbalizes understanding and agrees with treatment plan. 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 PAST SURGICAL HISTORY 2005: OPEN REPAIR OF ROTATOR CUFF ACUTE; Right Comment: Rotator cuff repair, right 1950s: TONSILLECTOMY PRIMARY/SECONDARY Comment: Tonsillectomy FAMILY HISTORY Problem Relation Age of Onset other (Other) Mother no contact Coronary Artery Disease Father Heart Failure Father Diabetes Father Cancer Paternal Grandfather Cancer Half-brother Social History Tobacco Use Smoking status: Former Types: Cigarettes Smokeless tobacco: Never Tobacco comments: Pt smoked 1 pack daily x 20 years, Vaping Use Vaping status: Never Used Substance Use Topics Alcohol use: Yes Alcohol/week: 1.0 standard drink of alcohol Types: 1 Cans of beer per week Drug use: Never ALLERGIES: ALLERGIES No Known Allergies CURRENT OUTPATIENT MEDICATIONS: levothyroxine (SYNTHROID) 112 mcg tablet Take 1 tablet by mouth once daily. Take on empty stomach. For thyroid finasteride (PROSCAR) 5 mg tablet Take 1 tablet by mouth once daily apixaban (ELIQUIS) 5 mg tab(s) Take 1 tablet by mouth two times a day. metoprolol tartrate, short acting, (LOPRESSOR) 50 mg tablet Take 1 tablet by mouth two times a day. amLODIPine (NORVASC) 5 mg tablet Take 1 tablet by mouth once daily. hydrOXYzine HCl (ATARAX) 25 mg tablet Take 1 tablet by mouth daily at bedtime. losartan (COZAAR) 100 mg tablet Take 1 tablet by mouth once daily. valACYclovir (VALTREX) 500 mg tablet Take 1 tablet by mouth once daily. atorvastatin (LIPITOR) 40 mg tablet Take 1 tablet by mouth daily at bedtime. tamsulosin (FLOMAX) 0.4 mg Take 2 capsules by mouth daily at bedtime. cyclobenzaprine (FLEXERIL) 10 mg tablet Take 1 tablet by mouth twice daily as needed for muscle spasm. levoFLOXacin (LEVAQUIN) 750 mg tablet Take 1 tablet by mouth once daily. Start the day before the biopsy REVIEW OF SYSTEMS: GENERAL: No fever, night sweats, weight loss or malaise. All other reviewed and negative other than HPI. PHYSICAL EXAMINATION: VITAL SIGNS: BP 159/69 Pulse 44 Temp (Src) 97.4 (Temporal) Ht 5' 5.5 (1.66m) Wt 212 lb 8 oz (96.4kg) SpO2 97% BMI 34.81 kg/(m2). GENERAL APPEARANCE: Well appearing, in no acute distress, alert and oriented x3, well-hydrated, well nourished. I spent a total of 30 minutes on the da (more content not included)... [facility] 11-12-2024 History of Present illness Narrative (Elements copied from my note dated July 09, 2024, have been reviewed and updated where appropriate, and all reflect current assessment and medical decision making from today's encounter, November 12, 2024) HISTORY OF PRESENT ILLNESS: Clint Villar is a 84 year old male in excellent health had a cologuard come back positive. A colonography CT scan was done that showed retroperitoneal adenopathy, enlarged prostate gland and possible rectal mass. Colonoscopy was negative for rectal mass. Saw urology PSA 73.59 (was 71 in January 2023). Prostate enlarged and firm. Biopsy of prostate is planned for mid January. 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 Reviewed case also with Dr Aguilar. Met in follow up, reviewed prostate biopsy shows adenocarcinoma. Bone scan focally positive. Retro peritoneal adenopathy. Bone scan shows osseous mets PSA now normal, we see improvement in adenopathy, hydronephrosis Recurrent UTI since stent placement. Lupron started 02-27-24. Enzalutamide started 07-09-24 11-12-24 follow up, feels tired. Planning to retire soon. CLINICAL IMPRESSION: Prostate cancer on biopsy, stage IV PSA improved on GnRH agonist RECOMMENDATION/PLAN: 1. continue GnRH agonist, enzalutamide. 2. Will discuss adding bisphosphonate depending on how creatinine goes. Written and verbal health teaching given to patient, patient verbalizes understanding and agrees with treatment plan. 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 PAST SURGICAL HISTORY 2005: OPEN REPAIR OF ROTATOR CUFF ACUTE; Right Comment: Rotator cuff repair, right 1950s: TONSILLECTOMY PRIMARY/SECONDARY <AGE 14 Comment: Tonsillectomy FAMILY HISTORY Problem Relation Age of Onset other (Other) Mother no contact Coronary Artery Disease Father Heart Failure Father Diabetes Father Cancer Paternal Grandfather Cancer Half-brother Social History Tobacco Use Smoking status: Former Types: Cigarettes Smokeless tobacco: Never Tobacco comments: Pt smoked 1 pack daily x 20 years, Vaping Use Vaping status: Never Used Substance Use Topics Alcohol use: Yes Alcohol/week: 1.0 standard drink of alcohol Types: 1 Cans of beer per week Drug use: Never ALLERGIES: ALLERGIES No Known Allergies CURRENT OUTPATIENT MEDICATIONS: levothyroxine (SYNTHROID) 112 mcg tablet Take 1 tablet by mouth once daily. Take on empty stomach. For thyroid finasteride (PROSCAR) 5 mg tablet Take 1 tablet by mouth once daily apixaban (ELIQUIS) 5 mg tab(s) Take 1 tablet by mouth two times a day. metoprolol tartrate, short acting, (LOPRESSOR) 50 mg tablet Take 1 tablet by mouth two times a day. amLODIPine (NORVASC) 5 mg tablet Take 1 tablet by mouth once daily. hydrOXYzine HCl (ATARAX) 25 mg tablet Take 1 tablet by mouth daily at bedtime. losartan (COZAAR) 100 mg tablet Take 1 tablet by mouth once daily. valACYclovir (VALTREX) 500 mg tablet Take 1 tablet by mouth once daily. atorvastatin (LIPITOR) 40 mg tablet Take 1 tablet by mouth daily at bedtime. tamsulosin (FLOMAX) 0.4 mg Take 2 capsules by mouth daily at bedtime. cyclobenzaprine (FLEXERIL) 10 mg tablet Take 1 tablet by mouth twice daily as needed for muscle spasm. levoFLOXacin (LEVAQUIN) 750 mg tablet Take 1 tablet by mouth once daily. Start the day before the biopsy REVIEW OF SYSTEMS: GENERAL: No fever, night sweats, weight loss or malaise. All other reviewed and negative other than HPI. PHYSICAL EXAMINATION: VITAL SIGNS: BP 159/69 Pulse 44 Temp (Src) 97.4 (Temporal) Ht 5' 5.5 (1.66m) Wt 212 lb 8 oz (96.4kg) SpO2 97% BMI 34.81 kg/(m^2). GENERAL APPEARANCE: Well appearing, in no acute distress, alert and oriented x3, well-hydrated, well nourished. I spent a total of 30 minutes on the date of the service which included preparing to see the patient, [id number] patient care, completing clinical documentation, obtaining and/or reviewing separately obtained history, counseling and educating the patient/family/caregiver, ordering medications, tests, or procedures, communicating with other HCPs (not separately reported), independently interpreting results (not separately reported), and communicating results to the patient/family/caregiver. Electronically Signed: Johan Payne MD November 12, 2024 [address] in this encounter [facility] 11-12-2024 Note HNO ID: [id number] Author: KATHIA DEL ANGEL LPN Service: ? Author Type: LICENSED NURSE Type: Progress Notes Filed: 11/12/2024 13:57 Note Text: Patient here for injection of Eligard. Given SQ in LLQ. Patient tolerated well. For all other information regarding today, see today's OV note with Dr Payne. Kathia Del Angel LPN [facility] 11-12-2024 History of Present illness Narrative Patient here for injection of Eligard. Given SQ in LLQ. Patient tolerated well. For all other information regarding today, see today's OV note with Dr Payne. Kathia Del Angel LPN documented in this encounter [facility] 11-08-2024 Telephone encounter Note Pharmacy verified. Patient has been identified by name and date of : Yes Patient phones for refill(s): Requested Prescriptions Pending Prescriptions Disp Refills ondansetron orally disintegrating (ZOFRAN ODT) 8 mg disintegrating tablet 20 tablet 0 Sig: Take 1 tablet by mouth every 8 hours as needed for nausea/vomiting. Date of last office visit in primary care: 10/27/2024 Date of next office visit in primary care: 01/04/2025 Please advise. Thank you. Leila Antonio LPN. [facility] 11-08-2024 Miscellaneous Notes Pharmacy verified. Patient has been identified by name and date of : Yes Patient phones for refill(s): Requested Prescriptions Pending Prescriptions Disp Refills ondansetron orally disintegrating (ZOFRAN ODT) 8 mg disintegrating tablet 20 tablet 0 Sig: Take 1 tablet by mouth every 8 hours as needed for nausea/vomiting. Date of last office visit in primary care: 10/27/2024 Date of next office visit in primary care: 01/04/2025 Please advise. Thank you. Leila Antonio LPN. Patient is calling for a refill of a medication prescribed for nausea when first diagnosed with cancer (name not remembered). He is asking if this refill can please be expedited today as he is dealing with nausea. TY documented in this encounter [facility] 11-08-2024 Telephone encounter Note Patient is calling for a refill of a medication prescribed for nausea when first diagnosed with cancer (name not remembered). He is asking if this refill can please be expedited today as he is dealing with nausea. TY [facility] 10-27-2024 Instructions Cody Carrington MD - 10/27/2024 4:20 PM EDT - Continue your current medications as prescribed; refills have been sent to [facility] for: Flexeril (muscle relaxer), Lipitor (cholesterol), hydroxyzine at bedtime (for itching), Synthroid, losartan, and tamsulosin (two capsules at bedtime for prostate). - Begin Flonase nasal spray for allergy-related throat congestion: spray once in each nostril daily, preferably at bedtime. - On November 12, go to the lab fasting and let them know you have orders from both me and Dr. Payne for cholesterol, thyroid, and blood count tests. - Keep your appointment with Dr. Payne on November 12. - Schedule and attend a Medicare wellness visit in late December to recheck your blood pressure and update your labs. documented in this encounter [facility] 10-27-2024 Note HNO ID: [id number] Author: CODY CARRINGTON MD Service: ? Author Type: Physician Type: Progress Notes Filed: 10/27/2024 16:35 Note Text: This note was created using [email or web address]. Subjective Clint Villar is a 84 year old male. Patient presents with: F/U 6 months Recording using ZIMPERIUM software for draft documentation of the visit was discussed with the patient/authorized sales representative wire rope; all questions welcomed and answered. Patient/authorized sales representative wire rope agreed to proceed BPH: - Reports improvement in urination, with decreased frequency and no sensation of blockage. - Taking tamsulosin 2 capsules at bedtime. - Follow-up with Dr. Payne scheduled for November 12. Cancer: - Currently on chemotherapy. - Experiencing lightheadedness and fatigue, attributing symptoms to chemotherapy. - Discussed bone density concerns with Dr. Payne. Hypothyroidism: - Taking Synthroid. Hyperlipidemia: - Taking Lipitor. Allergies: - Chronic phlegm production, requiring frequent throat clearing. - Symptoms began [id number] infection, persisting for several months. - Previously took allergy medication, but discontinued due to chemotherapy. - Denies regular sneezing. - Considering resuming Sudafed after consulting with Dr. Payne. Muscle Spasms: - Taking Flexeril. Pruritus: - Taking hydroxyzine at bedtime. Lifestyle: - Planning to resign from work on November 16. Review of Systems Constitutional: Positive for fatigue. HENT: Positive for congestion and postnasal drip. Negative for sore throat. Respiratory: Positive for cough. Negative for shortness of breath and wheezing. Gastrointestinal: Negative for abdominal pain. Genitourinary: Negative for difficulty urinating and dysuria. Neurological: Positive for light-headedness. Negative for headaches. 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 Htn (Hypertension) Hyperlipidemia Hypothyroidism Herpes Infection Muscle Spasm of Back Impaired Fasting Glucose Urinary Frequency Anemia Obesity, Class I, Bmi 30-34.9 Paroxysmal Atrial Fibrillation (Hcc) At Risk for Stroke Anticoagulant Long-Term Use Peripheral Vascular Disease, Unspecified Prostate Cancer (Hcc) Bilateral Hydronephrosis Gastroesophageal Reflux Disease Social History Tobacco Use Smoking status: Former Types: Cigarettes Passive exposure: Past Smokeless tobacco: Never Tobacco comments: Pt smoked 1 pack daily x 14 years, quit in 1964 Vaping Use Vaping status: Never Used Substance Use Topics Alcohol use: Not Currently Alcohol/week: 1.0 standard drink of alcohol Types: 1 Cans of beer per week Drug use: Never Current Outpatient Medications Medication Sig multivit-minerals/folic acid (MULTIVITAMIN GUMMIES PO) Take 2 pieces of gum by mouth q 12 HR. amLODIPine (NORVASC) 5 mg tablet Take 1 tablet by mouth once daily. pantoprazole DR (PROTONIX) 20 mg tablet Take 1 tablet by mouth once daily. enzalutamide (XTANDI) 80 mg tablet Take 2 tablets (160 mg) by mouth once daily. apixaban (ELIQUIS) 5 mg tab(s) Take 1 tablet by mouth two times a day. valACYclovir (VALTREX) 500 mg tablet Take 1 tablet by mouth once daily. cyclobenzaprine (FLEXERIL) 10 mg tablet Take 1 tablet by mouth two times a day as needed for muscle spasm. atorvastatin (LIPITOR) 40 mg tablet Take 1 tablet by mouth daily at bedtime. hydrOXYzine HCl (ATARAX) 25 mg tablet Take 1 tablet by mouth daily at bedtime. levothyroxine (SYNTHROID) 112 mcg tablet Take 1 tablet by mouth once daily. Take on empty stomach. For thyroid losartan (COZAAR) 100 mg tablet Take 1 tablet by mouth once daily. tamsulosin (FLOMAX) 0.4 mg Take 2 capsules by mouth daily at bedtime. fluticasone (FLONASE) 50 mcg/actuation nasal spray Use 1 spray in each nostril daily at bedtime. No current facility-administered medications for this visit. Objective BP 150/74 Pulse (!) 51 Wt 91.4 kg (201 lb 8 oz) BMI 32.52 kg/m? Physical Exam Constitutional: General: He is not in acute distress. Appearance: He is not ill-appearing or diaphoretic. HENT: Nose: Congestion and rhinorrhea present. Rhinorrhea is clear. Right Turbinates: Swollen and pale. Left Turbinates: Swollen and pale. Right Sinus: No maxillary sinus tenderness or frontal sinus tenderness. Left Sinus: No maxillary sinus tenderness or frontal sinus tenderness. Mouth/Throat: Pharynx: Oropharynx is clear. Cardiovascular: Rate and Rhythm: Regular rhythm. Bradycardia present. Heart sounds: No murmur heard. No gallop. Pulmonary: Effort: No respiratory distress. Breath sounds: No wheezing, rhonchi or rales. Musculoskeletal: Right lower leg: No edema. Left lower leg: No edema. Neurological: General: No focal deficit present. Mental Status: He is alert. Assessment and Plan 1. Postnasal drip - ICD9: 784.91, ICD10: R09.82 (primary diagnosis) Trial Flonase. - FLUTICASONE (more content not included)... [facility] 10-27-2024 History of Present illness Narrative This note was created using NoteWriter. Subjective Clint Villar is a 84 year old male. Patient presents with: F/U 6 months Recording using Z[employer]PER[employer] software for draft documentation of the visit was discussed with the patient/authorized sales representative wire rope; all questions welcomed and answered. Patient/authorized sales representative wire rope agreed to proceed BPH: - Reports improvement in urination, with decreased frequency and no sensation of blockage. - Taking tamsulosin 2 capsules at bedtime. - Follow-up with Dr. Payne scheduled for November 12. Cancer: - Currently on chemotherapy. - Experiencing lightheadedness and fatigue, attributing symptoms to chemotherapy. - Discussed bone density concerns with Dr. Payne. Hypothyroidism: - Taking Synthroid. Hyperlipidemia: - Taking Lipitor. Allergies: - Chronic phlegm production, requiring frequent throat clearing. - Symptoms began [id number] infection, persisting for several months. - Previously took allergy medication, but discontinued due to chemotherapy. - Denies regular sneezing. - Considering resuming Sudafed after consulting with Dr. Payne. Muscle Spasms: - Taking Flexeril. Pruritus: - Taking hydroxyzine at bedtime. Lifestyle: - Planning to resign from work on November 16. Review of Systems Constitutional: Positive for fatigue. HENT: Positive for congestion and postnasal drip. Negative for sore throat. Respiratory: Positive for cough. Negative for shortness of breath and wheezing. Gastrointestinal: Negative for abdominal pain. Genitourinary: Negative for difficulty urinating and dysuria. Neurological: Positive for light-headedness. Negative for headaches. 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 Htn (Hypertension) Hyperlipidemia Hypothyroidism Herpes Infection Muscle Spasm of Back Impaired Fasting Glucose Urinary Frequency Anemia Obesity, Class I, Bmi 30-34.9 Paroxysmal Atrial Fibrillation (Hcc) At Risk for Stroke Anticoagulant Long-Term Use Peripheral Vascular Disease, Unspecified Prostate Cancer (Hcc) Bilateral Hydronephrosis Gastroesophageal Reflux Disease Social History Tobacco Use Smoking status: Former Types: Cigarettes Passive exposure: Past Smokeless tobacco: Never Tobacco comments: Pt smoked 1 pack daily x 14 years, quit in 1965 Vaping Use Vaping status: Never Used Substance Use Topics Alcohol use: Not Currently Alcohol/week: 1.0 standard drink of alcohol Types: 1 Cans of beer per week Drug use: Never Current Outpatient Medications Medication Sig multivit-minerals/folic acid (MULTIVITAMIN GUMMIES PO) Take 2 pieces of gum by mouth q 12 HR. amLODIPine (NORVASC) 5 mg tablet Take 1 tablet by mouth once daily. pantoprazole DR (PROTONIX) 20 mg tablet Take 1 tablet by mouth once daily. enzalutamide (XTANDI) 80 mg tablet Take 2 tablets (160 mg) by mouth once daily. apixaban (ELIQUIS) 5 mg tab(s) Take 1 tablet by mouth two times a day. valACYclovir (VALTREX) 500 mg tablet Take 1 tablet by mouth once daily. cyclobenzaprine (FLEXERIL) 10 mg tablet Take 1 tablet by mouth two times a day as needed for muscle spasm. atorvastatin (LIPITOR) 40 mg tablet Take 1 tablet by mouth daily at bedtime. hydrOXYzine HCl (ATARAX) 25 mg tablet Take 1 tablet by mouth daily at bedtime. levothyroxine (SYNTHROID) 112 mcg tablet Take 1 tablet by mouth once daily. Take on empty stomach. For thyroid losartan (COZAAR) 100 mg tablet Take 1 tablet by mouth once daily. tamsulosin (FLOMAX) 0.4 mg Take 2 capsules by mouth daily at bedtime. fluticasone (FLONASE) 50 mcg/actuation nasal spray Use 1 spray in each nostril daily at bedtime. No current facility-administered medications for this visit. Objective BP 150/74 Pulse (!) 51 Wt 91.4 kg (201 lb 8 oz) BMI 32.52 kg/m Physical Exam Constitutional: General: He is not in acute distress. Appearance: He is not ill-appearing or diaphoretic. HENT: Nose: Congestion and rhinorrhea present. Rhinorrhea is clear. Right Turbinates: Swollen and pale. Left Turbinates: Swollen and pale. Right Sinus: No maxillary sinus tenderness or frontal sinus tenderness. Left Sinus: No maxillary sinus tenderness or frontal sinus tenderness. Mouth/Throat: Pharynx: Oropharynx is clear. Cardiovascular: Rate and Rhythm: Regular rhythm. Bradycardia present. Heart sounds: No murmur heard. No gallop. Pulmonary: Effort: No respiratory distress. Breath sounds: No wheezing, rhonchi or rales. Musculoskeletal: Right lower leg: No edema. Left lower leg: No edema. Neurological: General: No focal deficit present. Mental Status: He is alert. Assessment and Plan 1. Postnasal drip - ICD9: 784.91, ICD10: R09.82 (primary diagnosis) Trial Flonase. - FLUTICASONE PROPIONATE 50 MCG/ACTUATION NASAL SPRAY,SUSPENSION 2. Screening for depression - ICD9: V79.0, ICD10: Z13.31 - DEPRESSION SCREENING 3. Encounter for screening examination for other mental health and behavioral disorders - ICD9: V79.8, ICD10: Z13.39 - ANXIETY SCREENING 4. Muscle spasm of back - ICD9: 724.8, ICD10: M62.830 Stable. Refilled. - CYCLOBENZAPRINE 10 MG TABLET 5. Hyperlipidemia, unspecified hyperlipidemia type - ICD9: 272.4, ICD10: E78.5 - Control undetermined, due for labs - Continue current medications - Counseled on healthy diet and regular exercise - ATORVASTATIN 40 MG TABLET - LIPID PANEL, FASTING 6. Herpes infection - ICD9: 054.9, ICD10: B00.9 - Controlled. - HYDROXYZINE HCL 25 MG TABLET 7. Acquired hypothyroidism - ICD9: 244.9, ICD10: E03.9 - Instructed patient on importance of taking on an empty stomach either first thing in the morning or at bedtime. - continue current dose of Synthroid - LEVOTHYROXINE 112 MCG TABLET - THYROID STIMULATING HORMONE 8. Primary hypertension - ICD9: 401.9, ICD10: I10 - Worsening control - Continue current medications - No change in medication for now. - LOSARTAN 100 MG TABLET 9. Urinary frequency - ICD9: 788.41, ICD10: R35.0 - Controlled. - TAMSULOSIN 0.4 MG CAPSULE 10. Impaired fasting glucose - ICD9: 790.21, ICD10: R73.01 - HEMOGLOBIN A1C 11. Anemia, unspecified type - ICD9: 285.9, ICD10: D64.9 - COMPLETE BLOOD COUNT Cody Carrington MD documented in this encounter [facility] 09-07-2024 Telephone encounter Note Patient has been identified by name and date of : yes Patient phones for refill(s): Requested Prescriptions Pending Prescriptions Disp Refills amLODIPine (NORVASC) 5 mg tablet 60 tablet 5 Sig: Take 1 tablet by mouth once daily. Date of last office visit in primary care: 05/21/24 Date of next office visit in primary care: 10/27/24 Please advise. Thank you. Lucia Abbott MA. [facility] 09-07-2024 Miscellaneous Notes Patient has been identified by name and date of : yes Patient phones for refill(s): Requested Prescriptions Pending Prescriptions Disp Refills amLODIPine (NORVASC) 5 mg tablet 60 tablet 5 Sig: Take 1 tablet by mouth once daily. Date of last office visit in primary care: 05/21/24 Date of next office visit in primary care: 10/27/24 Please advise. Thank you. Lucia Abbott MA. Prescription Refill Information The patient has been identified by name and date of : Yes Caregiver verified no other encounters exist for this prescription request: Yes Caregiver confirmed with patient/requestor that no other refills are due, in the near future, with this provider at this time: Yes The last office visit in the department: Does the patient have a future office visit with this provider/department: Yes Requested Prescriptions Pending Prescriptions Disp Refills amLODIPine (NORVASC) 5 mg tablet 60 tablet 5 Sig: Take 1 tablet by mouth once daily. Albertina May September 07, 2024 12:39 PM documented in this encounter [facility] 09-07-2024 Telephone encounter Note Prescription Refill Information The patient has been identified by name and date of : Yes Caregiver verified no other encounters exist for this prescription request: Yes Caregiver confirmed with patient/requestor that no other refills are due, in the near future, with this provider at this time: Yes The last office visit in the department: Does the patient have a future office visit with this provider/department: Yes Requested Prescriptions Pending Prescriptions Disp Refills amLODIPine (NORVASC) 5 mg tablet 60 tablet 5 Sig: Take 1 tablet by mouth once daily. Albertina May September 07, 2024 12:[address] [facility] 09-03-2024 Telephone encounter Note Call to patient, message left to call me back and phone/contact number provided. Bouchra Fortune RN [facility] Work Phone: 09-03-2024 Miscellaneous Notes Call to patient, message left to call me back and phone/contact number provided. Bouchra Fortune RN ORAL ANTI-CANCER AGENTS FOLLOW-UP PHONE CALL/VISIT Patient identified by name and date of . YES Patient is on day 9 of Xtandi (enzalutamide) for Prostate Cancer. Call to patient, message left to call me back and phone/contact number provided. Bouchra Fortune RN documented in this encounter [facility] 09-02-2024 Telephone encounter Note ORAL ANTI-CANCER AGENTS FOLLOW-UP PHONE CALL/VISIT Patient identified by name and date of . YES Patient is on day 9 of Xtandi (enzalutamide) for Prostate Cancer. Call to patient, message left to call me back and phone/contact number provided. Bouchra Fortune RN [facility] 08-26-2024 Note HNO ID: [id number] Author: RADHA LARSEN MD Service: ? Author Type: Physician Type: Progress Notes Filed: 08/26/2024 08:36 Note Text: [facility] ESTABLISHED PATIENT NOTE PATIENT: Clint Villar (84 year old) PCP: Cody Carrington MD DATE OF SERVICE: 08/26/2024 SUMMARY: Mr. Villar is a 84 year old male who is here for: --- Assessment AND Plan Bilateral hydronephrosis Resolved Stents out 07/15/2024 US reviewed. No hydronephrosis No further intervention planned. We discussed concerning signs and symptoms and patient knows to report these immediately. If unable to reach their urologist, patient knows to report to emergency department for evaluation. Orders: UA DIP, URINE (POC) BLADDER SCAN Prostate cancer (HCC) Castrate sensitive metastatic prostate cancer On Eligard and Xtandi through oncology XRT PSA 0.73 from 1.88 (down from 73.59 originally) Lymphadenopathy resolved on CT Continue medical therapy through oncology Follow up with me 6 months for PSA Orders: UA DIP, URINE (POC) PROSTATE-SPECIFIC ANTIGEN DIAGNOSTIC; Future Urinary frequency Prior retention - resolved UA negative. PVR 21 cc Continue tamsulosin. Refill as needed -- FOLLOW UP: Return in about 6 months (around 02/25/2025). --- CHIEF COMPLAINT: Patient presents with: Prostate Cancer: 6 week follow up HISTORY OF PRESENT ILLNESS: Prior notes were reviewed. The patient reports feeling well since the removal of his stents, with no back pain or renal discomfort. He notes improvement in urinary symptoms, denying any dysuria or sensation of urinary obstruction. He expresses satisfaction with his current condition, stating, It's nice to be able to go. Recent laboratory results indicate a decrease in PSA levels to 0.7. The patient received his last Eligard injection last week and began taking enzalutamide (Xtandi) yesterday. He reports being very pleased with the results so far. REVIEW OF SYSTEMS: Genitourinary: Denies hematuria, dysuria, urgency, nocturia, [place], weak stream. Constitutional: unintentional weight loss - denies, fevers - denies Cardiovascular: new or worsening chest pain - denies Respiratory: new or worsening shortness of breath - denies Gastrointestinal: constipation - denies, vomiting - denies Hematologic/Lymphatic: easy bleeding or bruising - denies ALLERGIES: ALLERGIES Allergen Reactions Latex Rash MEDICATIONS: pantoprazole DR (PROTONIX) 20 mg tablet Take 1 tablet by mouth once daily. enzalutamide (XTANDI) 80 mg tablet Take 2 tablets (160 mg) by mouth once daily. apixaban (ELIQUIS) 5 mg tab(s) Take 1 tablet by mouth two times a day. ferrous sulfate 325 mg (65 mg iron) tablet Take 1 tablet by mouth once daily. ascorbic acid, vitamin C, (VITAMIN C) 500 mg tablet Take 1 tablet by mouth once daily. cyclobenzaprine (FLEXERIL) 10 mg tablet Take 1 tablet by mouth two times a day as needed for muscle spasm. valACYclovir (VALTREX) 500 mg tablet Take 1 tablet by mouth once daily. hydrOXYzine HCl (ATARAX) 25 mg tablet Take 1 tablet by mouth daily at bedtime. losartan (COZAAR) 100 mg tablet Take 1 tablet by mouth once daily. atorvastatin (LIPITOR) 40 mg tablet Take 1 tablet by mouth daily at bedtime. tamsulosin (FLOMAX) 0.4 mg Take 2 capsules by mouth daily at bedtime. levothyroxine (SYNTHROID) 112 mcg tablet Take 1 tablet by mouth once daily. Take on empty stomach. For thyroid amLODIPine (NORVASC) 5 mg tablet Take 1 tablet by mouth once daily. iv contrast (will be provided with radiology test) CT Urogram WO/W Inject, intravenously, once for 1 dose.No IV access, insert saline lock prior to the beginning of sedation, infusion, injection of imaging exam. Discontinue saline lock post exam. If Pt. has a central line or IVAD, may access for administration according to line specific nursing protocol. Once exam is complete flush line and de-access according to line specific nursing protocol in the CT contrast administration guidelines link. 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 [facility] 08-25-2024 Telephone encounter Note This has been scheduled as directed. Britt Agustin [facility] 08-25-2024 Miscellaneous Notes This has been scheduled as directed. Britt Agustin PSS: please schedule CMP/PSA/OV with next Lupron injection on 11/12/24. please send patient via [employer] when completed. Chelsea Fortune RN Dr. Payne would like CMP/PSA/OV with next Lupron injection on 11/12/24 and he does not advise any OTC for bone loss at this time. Chelsea Fortune RN ORAL ANTI-CANCER AGENTS EDUCATION patient called today for oral medication education of Xtandi for Prostate Cancer Anticipated/Scheduled start date: 08/25/24, received yesterday, 08/24/24 Patient asking about taking OTC medication for prevent bone loss. READINESS TO LEARN Cognitive Ability: Alert and oriented Motivation to Learn: Interested Family Support: High - Very involved in pt care Instruction Provided to: Patient Patient learns best by: Multiple Methods Factors affecting learning: None Physical limitation affecting learning: None GARRIDO ASSESSMENT: 1.) Verified that patient knows that the oral agents are for cancer and are taken by mouth. Yes 2.) Medication review completed during visit. Yes 3.) Patient is able to swallow pills. Yes 4.) Patient is able to read the drug label/information. Yes 5.) Patient is able to open the medication bottles and packages. Yes 6.) Has patient taken other pills for cancer? No 7.) Is patient experiencing any symptoms that would affect their ability to keep down pills, for example nausea or vomiting? No 8.) Verified that patient understands prescription delivery, benefit investigation and refill process. Yes DRUG-SPECIFIC EDUCATION: 1.) Verified patient knows the drug name. Yes 2.) Verified patient understands the dose and schedule of oral anti cancer agent. Yes 3.) Verified patient knows what to do if a medication dose is missed. Yes 4.) Verified patient understands where to store the drug. Yes 5.) Verified patient understands potential side effects and how to manage them. Yes 6.)Verified patient understands handling precautions of oral anti cancer agent. Yes 7.) Verified patient was given written instructions and understands when and whom to call with questions. Yes 8.) Verified patient understands where and how to return drug. Yes 9.) Verified patient received drug specific adult education handout and neutropenic wallet card Yes No EVALUATE: The patient demonstrated an understanding of all the above education using the teach-back method. Yes Instructed to call us with any questions, concerns, and/or unresolved symptoms. Will continue to follow up and provide reinforcement of teaching topics as needed. Bouchra Tong, RN documented in this encounter [facility] 08-25-2024 Telephone encounter Note PSS: please schedule CMP/PSA/OV with next Lupron injection on 11/12/24. please send patient via [employer] when completed. Chelsea Fortune RN [facility] Work Phone: 08-25-[address] Payne would like CMP/PSA/OV with next Lupron injection on 11/12/24 and he does not advise any OTC for bone loss at this time. Chelsea Fortune RN [facility] 08-25-2024 Telephone encounter Note ORAL ANTI-CANCER AGENTS EDUCATION patient called today for oral medication education of Xtandi for Prostate Cancer Anticipated/Scheduled start date: 08/25/24, received yesterday, 08/24/24 Patient asking about taking OTC medication for prevent bone loss. READINESS TO LEARN Cognitive Ability: Alert and oriented Motivation to Learn: Interested Family Support: High - Very involved in pt care Instruction Provided to: Patient Patient learns best by: Multiple Methods Factors affecting learning: None Physical limitation affecting learning: None GARRIDO ASSESSMENT: 1.) Verified that patient knows that the oral agents are for cancer and are taken by mouth. Yes 2.) Medication review completed during visit. Yes 3.) Patient is able to swallow pills. Yes 4.) Patient is able to read the drug label/information. Yes 5.) Patient is able to open the medication bottles and packages. Yes 6.) Has patient taken other pills for cancer? No 7.) Is patient experiencing any symptoms that would affect their ability to keep down pills, for example nausea or vomiting? No 8.) Verified that patient understands prescription delivery, benefit investigation and refill process. Yes DRUG-SPECIFIC EDUCATION: 1.) Verified patient knows the drug name. Yes 2.) Verified patient understands the dose and schedule of oral anti cancer agent. Yes 3.) Verified patient knows what to do if a medication dose is missed. Yes 4.) Verified patient understands where to store the drug. Yes 5.) Verified patient understands potential side effects and how to manage them. Yes 6.)Verified patient understands handling precautions of oral anti cancer agent. Yes 7.) Verified patient was given written instructions and understands when and whom to call with questions. Yes 8.) Verified patient understands where and how to return drug. Yes 9.) Verified patient received drug specific adult education handout and neutropenic wallet card Yes No EVALUATE: The patient demonstrated an understanding of all the above education using the teach-back method. Yes Instructed to call us with any questions, concerns, and/or unresolved symptoms. Will continue to follow up and provide reinforcement of teaching topics as needed. Bouchra Fortune RN [facility] 08-20-2024 Note HNO ID: [id number] Author: DAWN JAIMES LPN Service: ? Author Type: LICENSED NURSE Type: Progress Notes Filed: 08/20/2024 09:41 Note Text: Eliquis injection administered, RLQ, tolerated well, no immediate adverse reactions noted. Dawn Jaimes LPN [facility] 08-20-2024 History of Present illness Narrative Eliquis injection administered, RLQ, tolerated well, no immediate adverse reactions noted. Dawn Jaimes LPN documented in this encounter [facility] 08-18-2024 Telephone encounter Note Prescription Refill Information The patient has been identified by name and date of : Yes Caregiver verified no other encounters exist for this prescription request: Yes Caregiver confirmed with patient/requestor that no other refills are due, in the near future, with this provider at this time: Yes The last office visit in the department: 05/21/2024 Does the patient have a future office visit with this provider/department: Yes Requested Prescriptions Pending Prescriptions Disp Refills pantoprazole DR (PROTONIX) 20 mg tablet 90 tablet 0 Sig: Take 1 tablet by mouth once daily. Treva May August 18, 2024 9:[address] [facility] 08-18-2024 Miscellaneous Notes Prescription Refill Information The patient has been identified by name and date of : Yes Caregiver verified no other encounters exist for this prescription request: Yes Caregiver confirmed with patient/requestor that no other refills are due, in the near future, with this provider at this time: Yes The last office visit in the department: 05/21/2024 Does the patient have a future office visit with this provider/department: Yes Requested Prescriptions Pending Prescriptions Disp Refills pantoprazole DR (PROTONIX) 20 mg tablet 90 tablet 0 Sig: Take 1 tablet by mouth once daily. Treva May August 18, 2024 9:53 AM documented in this encounter [facility] 07-27-2024 Telephone encounter Note Prescription Refill Information The patient has been identified by name and date of : Yes Caregiver verified no other encounters exist for this prescription request: Yes Caregiver confirmed with patient/requestor that no other refills are due, in the near future, with this provider at this time: Yes The last office visit in the department: 07/09/2024 Does the patient have a future office visit with this provider/department: Yes Requested Prescriptions Pending Prescriptions Disp Refills enzalutamide (XTANDI) 80 mg tablet 60 tablet 11 Sig: Take 2 tablets (160 mg) by mouth once daily. NEW RX NEEDS SENT TO [facility] Dawn Jaimes LPN July 27, 2024 2:[address] [facility] 07-27-2024 Miscellaneous Notes Prescription Refill Information The patient has been identified by name and date of : Yes Caregiver verified no other encounters exist for this prescription request: Yes Caregiver confirmed with patient/requestor that no other refills are due, in the near future, with this provider at this time: Yes The last office visit in the department: 07/09/2024 Does the patient have a future office visit with this provider/department: Yes Requested Prescriptions Pending Prescriptions Disp Refills enzalutamide (XTANDI) 80 mg tablet 60 tablet 11 Sig: Take 2 tablets (160 mg) by mouth once daily. NEW RX NEEDS SENT TO [facility] Dawn Jaimes LPN July 27, 2024 2:55 PM documented in this encounter [facility] 07-26-2024 Telephone encounter Note Prior authorization was approved for Xtandi. Plan Name: Salena LUPE reference number: [id number] Approval Dates: 07/24/2024 - 01/24/2025 However, s/he is required to use [facility] to fill this medication. Will queue prescription(s) to go to designated specialty pharmacy. For reference, their pharmacy phone number is [phone]. No further action by [facility] Specialty. Conner Austin, PharmD Clinical Pharmacist, Oncology [facility] P: , F: Pool: P [facility] ONCOLOG[facility] Pool #: [id number] [facility] 07-26-2024 Miscellaneous Notes Prior authorization was approved for Xtandi. Plan Name: [place] reference number: [id number] Approval Dates: 07/24/2024 - 01/24/2025 However, s/he is required to use [facility] to fill this medication. Will queue prescription(s) to go to designated specialty pharmacy. For reference, their pharmacy phone number is [phone]. No further action by CC Specialty. Conner Austin, PharmD Clinical Pharmacist, Oncology [facility] P: , F: Pool: P [facility] ONCOL[facility] Pool #: [id number] documented in this encounter [facility] 07-23-2024 Note HNO ID: [id number] Author: CHARIS BULL RN Service: ? Author Type: Registered Nurse Type: Progress Notes Filed: 07/23/2024 18:20 Note Text: [facility] received prescription for Xtandi from , prior authorization was initiated and pending review. Plan Name: [employer] Phone/ / [phone] Case: - Timeline: urgent Charis Bull RN [facility] 07-22-2024 History of Present illness Narrative Radiology Service Progress Note PATIENT NAME: Clint Villar DATE OF SERVICE: July 22, 2024 TIME: 8:45 AM PATIENT IDENTITY VERIFICATION COMPLETED USING TWO (2) IDENTIFIERS: Name and Date of confirmed by patient verbally. FALL SCREENING: Has the patient had 2 falls in the last year or 1 fall with injury or currently using an Ambulatory Assistive Device (Walker, Cane, Wheelchair, Crutches, etc.)? No PATIENT GENDER DATA: Assigned male at PATIENT RELEVANT IMPLANT DATA REVIEWED: Not Applicable PATIENT PRESENTS WITH AN IMPLANTABLE OR ATTACHED DRIER AND EVAPORATOR OPERATOR: No RADIOLOGY DEPARTMENT: Ultrasound PERIPHERAL IV DATA: Not applicable SIGNED BY: Louisa Moran RDMS July 22, 2024 8:45 AM documented in this encounter [facility] 07-22-2024 Note HNO ID: [id number] Author: LOUISA MORAN RDMS Service: ? Author Type: Dairy Hand Type: Progress Notes Filed: 07/22/2024 08:46 Note Text: Radiology Service Progress Note PATIENT NAME: Clint Villar DATE OF SERVICE: July 22, 2024 TIME: 8:45 AM PATIENT IDENTITY VERIFICATION COMPLETED USING TWO (2) IDENTIFIERS: Name and Date of confirmed by patient verbally. FALL SCREENING: Has the patient had 2 falls in the last year or 1 fall with injury or currently using an Ambulatory Assistive Device (Walker, Cane, Wheelchair, Crutches, etc.)? No PATIENT GENDER DATA: Assigned male at PATIENT RELEVANT IMPLANT DATA REVIEWED: Not Applicable PATIENT PRESENTS WITH AN IMPLANTABLE OR ATTACHED DRIER AND EVAPORATOR OPERATOR: No RADIOLOGY DEPARTMENT: Ultrasound PERIPHERAL IV DATA: Not applicable SIGNED BY: Louisa Moran RDMS July 22, 2024 8:45 AM [facility] 07-15-2024 Note HNO ID: [id number] Author: RADHA LARSEN MD Service: ? Author Type: Physician Type: Progress Notes Filed: 07/15/2024 10:44 Note Text: [facility] ESTABLISHED PATIENT NOTE PATIENT: Clint Villar (84 year old) PCP: Cody Carrington MD DATE OF SERVICE: 07/15/2024 --- SUMMARY: Mr. Villar is a 84 year old male who is here for Assessment AND Plan Prostate cancer (HCC) Castrate sensitive metastatic prostate cancer On Eligard through oncology XRT PSA 1.88 (down from 73.59 originally Lymphadenopathy resolved on CT Continue PSA surveillance Urinary frequency PVR here looks good. Prior retention resolved (Borrego out) Recheck urine at next visit Bilateral hydronephrosis Bilateral hydronephrosis (stents in place) Resolved on follow up CT Patient requested stent removal. See procedure note Follow up 6 weeks with renal US and bmp Orders: UA DIP, URINE (POC) BLADDER SCAN CYSTO W/URETER STENT EXTRACT BASIC METABOLIC PANEL; Future US KIDNEY/BLADDER; Future cephALEXin (KEFLEX) 500 mg capsule; Take 1 capsule by mouth three times a day for 3 days. --- FOLLOW UP: Return in about 6 weeks (around 08/26/2024). --- CHIEF COMPLAINT: Patient presents with: Cystoscopy-1: PSA 07/05/[address] 06/21/24. HISTORY OF PRESENT ILLNESS: Prior notes were reviewed. The patient reports: Complaint: prostate cancer Location: prostate Duration: months Quality: none Severity: severe Relieving: none Exacerbating: none Course: chronic Associated conditions: urinary frequency, bilateral hydronephrosis, history of urinary retention Diagnostics: none Treatments: Borrego in place, stents in place REVIEW OF SYSTEMS: Genitourinary: Denies hematuria, dysuria, urgency, nocturia, [place], weak stream. Constitutional: unintentional weight loss - denies, fevers - denies Cardiovascular: new or worsening chest pain - denies Respiratory: new or worsening shortness of breath - denies Gastrointestinal: constipation - denies, vomiting - denies Hematologic/Lymphatic: easy bleeding or bruising - denies ALLERGIES: ALLERGIES Allergen Reactions Latex Rash MEDICATIONS: apixaban (ELIQUIS) 5 mg tab(s) Take 1 tablet by mouth two times a day. enzalutamide (XTANDI) 80 mg tablet Take 2 tablets (160 mg) by mouth once daily. pantoprazole DR (PROTONIX) 20 mg tablet Take 1 tablet by mouth once daily. ascorbic acid, vitamin C, (VITAMIN C) 500 mg tablet Take 1 tablet by mouth once daily. cyclobenzaprine (FLEXERIL) 10 mg tablet Take 1 tablet by mouth two times a day as needed for muscle spasm. valACYclovir (VALTREX) 500 mg tablet Take 1 tablet by mouth once daily. hydrOXYzine HCl (ATARAX) 25 mg tablet Take 1 tablet by mouth daily at bedtime. losartan (COZAAR) 100 mg tablet Take 1 tablet by mouth once daily. atorvastatin (LIPITOR) 40 mg tablet Take 1 tablet by mouth daily at bedtime. tamsulosin (FLOMAX) 0.4 mg Take 2 capsules by mouth daily at bedtime. levothyroxine (SYNTHROID) 112 mcg tablet Take 1 tablet by mouth once daily. Take on empty stomach. For thyroid amLODIPine (NORVASC) 5 mg tablet Take 1 tablet by mouth once daily. cephALEXin (KEFLEX) 500 mg capsule Take 1 capsule by mouth three times a day for 3 days. ferrous sulfate 325 mg (65 mg iron) tablet Take 1 tablet by mouth once daily. (Patient not taking: Reported on 07/09/2024) iv contrast (will be provided with radiology test) CT Urogram WO/W Inject, intravenously, once for 1 dose.No IV access, insert saline lock prior to the beginning of sedation, infusion, injection of imaging exam. Discontinue saline lock post exam. If Pt. has a central line or IVAD, may access for administration according to line specific nursing protocol. Once exam is complete flush line and de-access according to line specific nursing protocol in the CT contrast administration guidelines link. (Patient not taking: Reported on 07/15/2024) PAST HISTORY: PAST MEDICAL HISTORY Diagnosis Date Admitted for observation ADMITTED WITH NEW ONSET AFIB MAY 2023, MED AND SENT HOME TO FOLLOW UP WITH CARDIOLOGY 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 Anticoagulant long-term use 10/21/2023 PRIMARY FOLLOWS CURRENTLY, DUE TO SEE [facility] Arthritis At risk for stroke 10/21/2023 D/T AFIB Atrial fibrillation (HCC) COVID-19 virus infection 07/03/2020 Elevated PSA 01/09/2023 DR LARSEN Herpes infection 05/23/2015 Breaks out in sacral area every 2-3 months. 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 [facility] 07-15-2024 History of Present illness Narrative Images from the original note were not included. [facility] ESTABLISHED PATIENT NOTE PATIENT: Clint Villar (84 year old) PCP: Cody Carrington MD DATE OF SERVICE: 07/15/2024 SUMMARY: Mr. Villar is a 84 year old male who is here for Assessment & Plan Prostate cancer (HCC) Castrate sensitive metastatic prostate cancer On Eligard through oncology XRT PSA 1.88 (down from 73.59 originally Lymphadenopathy resolved on CT Continue PSA surveillance Urinary frequency PVR here looks good. Prior retention resolved (Borrego out) Recheck urine at next visit Bilateral hydronephrosis Bilateral hydronephrosis (stents in place) Resolved on follow up CT Patient requested stent removal. See procedure note Follow up 6 weeks with renal US and bmp Orders: UA DIP, URINE (POC) BLADDER SCAN CYSTO W/URETER STENT EXTRACT BASIC METABOLIC PANEL; Future US KIDNEY/BLADDER; Future cephALEXin (KEFLEX) 500 mg capsule; Take 1 capsule by mouth three times a day for 3 days. FOLLOW UP: Return in about 6 weeks (around 08/26/2024). CHIEF COMPLAINT: Patient presents with: Cystoscopy-1: PSA 07/05/[address] 06/21/24. HISTORY OF PRESENT ILLNESS: Prior notes were reviewed. The patient reports: Complaint: prostate cancer Location: prostate Duration: months Quality: none Severity: severe Relieving: none Exacerbating: none Course: chronic Associated conditions: urinary frequency, bilateral hydronephrosis, history of urinary retention Diagnostics: none Treatments: Borrego in place, stents in place REVIEW OF SYSTEMS: Genitourinary: Denies hematuria, dysuria, urgency, nocturia, [place], weak stream. Constitutional: unintentional weight loss - denies, fevers - denies Cardiovascular: new or worsening chest pain - denies Respiratory: new or worsening shortness of breath - denies Gastrointestinal: constipation - denies, vomiting - denies Hematologic/Lymphatic: easy bleeding or bruising - denies ALLERGIES: ALLERGIES Allergen Reactions Latex Rash MEDICATIONS: apixaban (ELIQUIS) 5 mg tab(s) Take 1 tablet by mouth two times a day. enzalutamide (XTANDI) 80 mg tablet Take 2 tablets (160 mg) by mouth once daily. pantoprazole DR (PROTONIX) 20 mg tablet Take 1 tablet by mouth once daily. ascorbic acid, vitamin C, (VITAMIN C) 500 mg tablet Take 1 tablet by mouth once daily. cyclobenzaprine (FLEXERIL) 10 mg tablet Take 1 tablet by mouth two times a day as needed for muscle spasm. valACYclovir (VALTREX) 500 mg tablet Take 1 tablet by mouth once daily. hydrOXYzine HCl (ATARAX) 25 mg tablet Take 1 tablet by mouth daily at bedtime. losartan (COZAAR) 100 mg tablet Take 1 tablet by mouth once daily. atorvastatin (LIPITOR) 40 mg tablet Take 1 tablet by mouth daily at bedtime. tamsulosin (FLOMAX) 0.4 mg Take 2 capsules by mouth daily at bedtime. levothyroxine (SYNTHROID) 112 mcg tablet Take 1 tablet by mouth once daily. Take on empty stomach. For thyroid amLODIPine (NORVASC) 5 mg tablet Take 1 tablet by mouth once daily. cephALEXin (KEFLEX) 500 mg capsule Take 1 capsule by mouth three times a day for 3 days. ferrous sulfate 325 mg (65 mg iron) tablet Take 1 tablet by mouth once daily. (Patient not taking: Reported on 07/09/2024) iv contrast (will be provided with radiology test) CT Urogram WO/W Inject, intravenously, once for 1 dose.No IV access, insert saline lock prior to the beginning of sedation, infusion, injection of imaging exam. Discontinue saline lock post exam. If Pt. has a central line or IVAD, may access for administration according to line specific nursing protocol. Once exam is complete flush line and de-access according to line specific nursing protocol in the CT contrast administration guidelines link. (Patient not taking: Reported on 07/15/2024) PAST HISTORY: PAST MEDICAL HISTORY Diagnosis Date Admitted for observation ADMITTED WITH NEW ONSET AFIB MAY 2023, MED AND SENT HOME TO FOLLOW UP WITH CARDIOLOGY 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 Anticoagulant long-term use 10/21/2023 PRIMARY FOLLOWS CURRENTLY, DUE TO SEE [facility] Arthritis At risk for stroke 10/21/2023 D/T AFIB Atrial fibrillation (HCC) COVID-19 virus infection 07/03/2020 Elevated PSA 01/09/2023 DR LARSEN Herpes infection 05/23/2015 Breaks out in sacral area every 2-3 months. 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 HTN (hypertension) 03/08/2014 PRIMARY FOLLOWS Hyperglycemia DIET CONTROLLED PRIMARY FOLLOWS Hyperlipidemia 03/08/2014 Hyperlipidemia, unspecified hyperlipidemia type PRIMARY FOLLOWS Hypotension, unspecified Hypothyroidism 07/21/2014 PRIMARY FOLLOWS Impaired fasting glucose 12/19/2016 DOES NOT REMEMBER Muscle spasm of back 05/23/2015 Obesity, Class I, BMI 30-34.9 01/29/2019 Obesity, Class II, BMI 35-39.9 06/02/2020 Paroxysmal atrial fibrillation (HCC) 06/23/2023 DUE TO SEE [facility] FOR AFIB, PRIMARY FOLLOWS CURRENTLY, DID SEE [facility] X1 APPOINTMENT BUT DID NOT CARE FOR MD SO WILL NOT GO BACK Positive colorectal cancer screening using Cologuard test 01/03/2023 Primary hypertension PRIMARY FOLLOWS Prostate cancer (HCC) 02/13/[address] DR LARSEN [address] DR AGUILAR, AT [facility] IN [place] 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 PAST SURGICAL HISTORY Procedure Laterality Date COLONOSCOPY - DIAGNOSTIC 12/18/2023 CYSTOSCOPY, W/INSERTION URETHRAL STENT Bilateral 03/08/2024 bilateral hydroephrosis OPEN REPAIR OF ROTATOR CUFF ACUTE Right 2005 Rotator cuff repair, right PROSTATE BIOPSY W/TRANSRECTAL US 01/26/2024 TONSILLECTOMY PRIMARY/SECONDARY <AGE 14 1950s Tonsillectomy FAMILY HISTORY Problem Relation Age of Onset other (Other) Mother no contact Coronary Artery Disease Father Heart Failure Father Diabetes Father Cancer Paternal Grandfather Cancer Half-brother Social History Tobacco Use Smoking status: Former Types: Cigarettes Passive exposure: Past Smokeless tobacco: Never Tobacco comments: Pt smoked 1 pack daily x 14 years, quit in 1965 Vaping Use Vaping status: Never Used Substance Use Topics Alcohol use: Not Currently Alcohol/week: 1.0 standard drink of alcohol Types: 1 Cans of beer per week Drug use: Never PHYSICAL EXAMINATION: BP 132/58 (BP Position: Sitting) Ht 167.6 cm (5' 6) Wt 90.7 kg (200 lb) BMI 32.28 kg/m Verbal informed consent obtained for exam below: Constitutional: In no acute distress. Respiratory: Normal respiratory effort without use of accessory muscles. Cardiovascular: Regular rate Gastrointestinal: Nondistended DATA: Clinic: URINALYSIS: GLUCOSE UA (POCT) Negative 07/15/2024 BILIRUBIN UA (POCT) Negative 07/15/2024 KETONE UA (POCT) Negative 07/15/2024 SPECIFIC GRAVITY UA (POCT) 1.015 07/15/2024 HEMOGLOBIN/BLOOD UA (POCT) Moderate 07/15/2024 PH UA (POCT) 6.0 07/15/2024 PROTEIN UA (POCT) 100 07/15/2024 UROBILINOGEN UA (POCT) 0.2 07/15/2024 NITRITE UA (POCT) Negative 07/15/2024 LEUKOCYTES UA (POCT) Large 07/15/2024 COLOR UA (POCT) Yellow 07/15/2024 CLARITY UA (POCT) Clear 07/15/2024 Laboratory: Creatinine Date Value Ref Range Status 06/29/2024 2.11 (H) 0.73 - 1.22 mg/dL Final 04/26/2024 1.33 (H) 0.73 - 1.22 mg/dL Final 04/13/2024 1.39 0.50 - 1.40 mg/dL Final Comment: Patients receiving either N-Acetylcysteine (NAC) or Metamizole prior to venipuncture, may have falsely depressed results. 02/28/2024 1.55 (H) 0.50 - 1.40 mg/dL Final Comment: Patients receiving either N-Acetylcysteine (NAC) or Metamizole prior to venipuncture, may have falsely depressed results. Cultures: Culture Results - Past 1 Year Culture 04/26/2024 <10,000 CFU/ml Enterococcus faecalis 05/21/2024 10,000 -<50,000 CFU/ml Enterococcus faecalis 06/29/2024 <10,000 CFU/ml Normal urogenital heaven Susceptibility Tests - Past 1 Year Collected Organism Ampicillin Nitrofurantoin Vancomycin 04/26/24 Enterococcus faecalis 05/21/24 Enterococcus faecalis S S S 06/29/24 Normal urogenital heaven PSA: PSA (ng/mL) Date Value 07/05/2024 1.88 05/28/2024 3.05 04/14/2024 5.94 04/13/2024 5.50 DISCUSSIONS: I have reviewed the problem list, family history, and social history documented by my ancillary staff. Radha Larsen MD Staff Urologist Office documented in this encounter [facility] 07-15-2024 Note HNO ID: [id number] Author: RADHA LARSEN MD Service: ? Author Type: Physician Type: Procedures Filed: 07/15/2024 10:44 Note Text: [facility] PROCEDURE NOTE PATIENT: Clint Villar (84 year old) DATE OF SERVICE: 07/15/2024 PRE-OPERATIVE DIAGNOSIS: Bilateral hydronephrosis POST-OPERATIVE DIAGNOSIS: same PROCEDURE: Cystoscopy and removal of bilateral ureteral stents ANESTHESIA: Local BLOOD LOSS: none SPECIMENS: none COMPLICATIONS: None FINDINGS: Bilateral stents removed intact. No masses or lesions present. INDICATIONS: Clint Villar is a 84 year old male who presents for cystoscopy and stent removal. We discussed the planned procedure. Risks, benefits, and alternatives of the procedure were discussed. Patient acknowledges understanding and consents to proceed. Elementary Substitute Teacher present for entirety of procedure. PROCEDURE DETAIL: Patient?s identity was confirmed, written informed consent was obtained, and the time out performed before the procedure was initiated The patient was placed on the procedure table in the supine position and prepped and draped in the usual sterile fashion. 2% Lidocaine Jelly was placed per urethra as an anesthetic in the standard fashion. The tip of the flexible cystoscope was carefully placed into the urethra under direct visual guidance. The scope was negotiated through the urethra to the level of the bladder. The bladder was entered and careful quintana-endoscopy was carried out. The posterior, superior and lateral elder and dome of the bladder were all well visualized and the scope was retroflexed upon itself. There were bilateral indwelling ureteral stents. This stents were removed intact using cystoscopic graspers. At the conclusion of the procedure, the flexible cystoscope was removed atraumatically. The patient tolerated the procedure without complications. DISPOSITION: The patient tolerated the procedure well. Discharge to home. Postoperative care, limitations, and expectations were reviewed with the patient. We discussed concerning signs and symptoms and patient knows to report these immediately. If unable to reach their urologist, patient knows to report to emergency department for evaluation. --- PLAN: Rx sent for Keflex. Follow up 6 weeks with renal US and bmp ORDERS TODAY: Orders Placed This Encounter BLADDER SCAN Cysto with stent removal US KIDNEY/BLADDER Standing Status: Future Expiration Date: 08/14/2025 UA DIP, URINE (POC) Basic Metabolic Panel Standing Status: Future Expected Date: 08/15/2024 Expiration Date: 11/14/2024 cephALEXin (KEFLEX) 500 mg capsule Sig: Take 1 capsule by mouth three times a day for 3 days. Dispense: 9 capsule Refill: 0 --- UNIVERSAL PROTOCOL / SAFETY CHECKLIST A Moment of CARE was completed. Sign In: History and Physical on chart: Completed Allergies and Medications Review: Completed Informed Consent: Completed. Staff directly involved with procedure wore appropriate PPE: Completed Sign in Communication: Completed Patient/surrogate verified: Name, date of , allergies, intended procedure Time Out: Team Confirms the Correct Patient, Correct Procedure, Correct Site and Site Marking (if applicable), Correct Position, Sterility, Fire Risk, Medications to be given. Provider confirms relevant labs and/or imaging reviewed, intender procedure match source documentation and consent, correct side marked (if applicable), medications for procedure verified, fire risk assessment completed, implant noted (if applicable): Affirmation of Time Out: Yes Sign Out: All specimen containers correctly labeled when applicable. All instruments, equipment accounted for. Sign Out Discussion: Completed Patient instructions: Completed Radha Larsen MD 07/15/2024 [facility] 07-15-2024 Procedure note Images from the original note were not included. [facility] PROCEDURE NOTE PATIENT: Clint Villar (84 year old) DATE OF SERVICE: 07/15/2024 PRE-OPERATIVE DIAGNOSIS: Bilateral hydronephrosis POST-OPERATIVE DIAGNOSIS: same PROCEDURE: Cystoscopy and removal of bilateral ureteral stents ANESTHESIA: Local BLOOD LOSS: none SPECIMENS: none COMPLICATIONS: None FINDINGS: Bilateral stents removed intact. No masses or lesions present. INDICATIONS: Clint Villar is a 84 year old male who presents for cystoscopy and stent removal. We discussed the planned procedure. Risks, benefits, and alternatives of the procedure were discussed. Patient acknowledges understanding and consents to proceed. Elementary Substitute Teacher present for entirety of procedure. PROCEDURE DETAIL: Patient s identity was confirmed, written informed consent was obtained, and the time out performed before the procedure was initiated The patient was placed on the procedure table in the supine position and prepped and draped in the usual sterile fashion. 2% Lidocaine Jelly was placed per urethra as an anesthetic in the standard fashion. The tip of the flexible cystoscope was carefully placed into the urethra under direct visual guidance. The scope was negotiated through the urethra to the level of the bladder. The bladder was entered and careful quintana-endoscopy was carried out. The posterior, superior and lateral elder and dome of the bladder were all well visualized and the scope was retroflexed upon itself. There were bilateral indwelling ureteral stents. This stents were removed intact using cystoscopic graspers. At the conclusion of the procedure, the flexible cystoscope was removed atraumatically. The patient tolerated the procedure without complications. DISPOSITION: The patient tolerated the procedure well. Discharge to home. Postoperative care, limitations, and expectations were reviewed with the patient. We discussed concerning signs and symptoms and patient knows to report these immediately. If unable to reach their urologist, patient knows to report to emergency department for evaluation. PLAN: Rx sent for Keflex. Follow up 6 weeks with renal US and bmp ORDERS TODAY: Orders Placed This Encounter BLADDER SCAN Cysto with stent removal US KIDNEY/BLADDER Standing Status: Future Expiration Date: 08/14/2025 UA DIP, URINE (POC) Basic Metabolic Panel Standing Status: Future Expected Date: 08/15/2024 Expiration Date: 11/14/2024 cephALEXin (KEFLEX) 500 mg capsule Sig: Take 1 capsule by mouth three times a day for 3 days. Dispense: 9 capsule Refill: 0 UNIVERSAL PROTOCOL / SAFETY CHECKLIST A Moment of CARE was completed. Sign In: History and Physical on chart: Completed Allergies and Medications Review: Completed Informed Consent: Completed. Staff directly involved with procedure wore appropriate PPE: Completed Sign in Communication: Completed Patient/surrogate verified: Name, date of , allergies, intended procedure Time Out: Team Confirms the Correct Patient, Correct Procedure, Correct Site and Site Marking (if applicable), Correct Position, Sterility, Fire Risk, Medications to be given. Provider confirms relevant labs and/or imaging reviewed, intender procedure match source documentation and consent, correct side marked (if applicable), medications for procedure verified, fire risk assessment completed, implant noted (if applicable): Affirmation of Time Out: Yes Sign Out: All specimen containers correctly labeled when applicable. All instruments, equipment accounted for. Sign Out Discussion: Completed Patient instructions: Completed Radha Larsen MD 07/15/2024 [facility] 07-15-2024 Procedure note Images from the original note were not included. [facility] PROCEDURE NOTE PATIENT: Clint Villar (84 year old) DATE OF SERVICE: 07/15/2024 PRE-OPERATIVE DIAGNOSIS: Bilateral hydronephrosis POST-OPERATIVE DIAGNOSIS: same PROCEDURE: Cystoscopy and removal of bilateral ureteral stents ANESTHESIA: Local BLOOD LOSS: none SPECIMENS: none COMPLICATIONS: None FINDINGS: Bilateral stents removed intact. No masses or lesions present. INDICATIONS: Clint Villar is a 84 year old male who presents for cystoscopy and stent removal. We discussed the planned procedure. Risks, benefits, and alternatives of the procedure were discussed. Patient acknowledges understanding and consents to proceed. Elementary Substitute Teacher present for entirety of procedure. PROCEDURE DETAIL: Patient s identity was confirmed, written informed consent was obtained, and the time out performed before the procedure was initiated The patient was placed on the procedure table in the supine position and prepped and draped in the usual sterile fashion. 2% Lidocaine Jelly was placed per urethra as an anesthetic in the standard fashion. The tip of the flexible cystoscope was carefully placed into the urethra under direct visual guidance. The scope was negotiated through the urethra to the level of the bladder. The bladder was entered and careful quintana-endoscopy was carried out. The posterior, superior and lateral elder and dome of the bladder were all well visualized and the scope was retroflexed upon itself. There were bilateral indwelling ureteral stents. This stents were removed intact using cystoscopic graspers. At the conclusion of the procedure, the flexible cystoscope was removed atraumatically. The patient tolerated the procedure without complications. DISPOSITION: The patient tolerated the procedure well. Discharge to home. Postoperative care, limitations, and expectations were reviewed with the patient. We discussed concerning signs and symptoms and patient knows to report these immediately. If unable to reach their urologist, patient knows to report to emergency department for evaluation. PLAN: Rx sent for Keflex. Follow up 6 weeks with renal US and bmp ORDERS TODAY: Orders Placed This Encounter BLADDER SCAN Cysto with stent removal US KIDNEY/BLADDER Standing Status: Future Expiration Date: 08/14/2025 UA DIP, URINE (POC) Basic Metabolic Panel Standing Status: Future Expected Date: 08/15/2024 Expiration Date: 11/14/2024 cephALEXin (KEFLEX) 500 mg capsule Sig: Take 1 capsule by mouth three times a day for 3 days. Dispense: 9 capsule Refill: 0 UNIVERSAL PROTOCOL / SAFETY CHECKLIST A Moment of CARE was completed. Sign In: History and Physical on chart: Completed Allergies and Medications Review: Completed Informed Consent: Completed. Staff directly involved with procedure wore appropriate PPE: Completed Sign in Communication: Completed Patient/surrogate verified: Name, date of , allergies, intended procedure Time Out: Team Confirms the Correct Patient, Correct Procedure, Correct Site and Site Marking (if applicable), Correct Position, Sterility, Fire Risk, Medications to be given. Provider confirms relevant labs and/or imaging reviewed, intender procedure match source documentation and consent, correct side marked (if applicable), medications for procedure verified, fire risk assessment completed, implant noted (if applicable): Affirmation of Time Out: Yes Sign Out: All specimen containers correctly labeled when applicable. All instruments, equipment accounted for. Sign Out Discussion: Completed Patient instructions: Completed Radha Larsen MD 07/15/2024 documented in this encounter [facility] 07-12-2024 Telephone encounter Note Patient has been identified by name and date of : Yes Patient phones for refill(s): Requested Prescriptions Pending Prescriptions Disp Refills apixaban (ELIQUIS) 5 mg tab(s) 120 tablet 5 Sig: Take 1 tablet by mouth two times a day. Date of last office visit in primary care: 05/21/2024 Date of next office visit in primary care: 10/27/2024 Please advise. Thank you. Leila Antonio LPN. [facility] 07-12-2024 Miscellaneous Notes Patient has been identified by name and date of : Yes Patient phones for refill(s): Requested Prescriptions Pending Prescriptions Disp Refills apixaban (ELIQUIS) 5 mg tab(s) 120 tablet 5 Sig: Take 1 tablet by mouth two times a day. Date of last office visit in primary care: 05/21/2024 Date of next office visit in primary care: 10/27/2024 Please advise. Thank you. Leila Antonio LPN. documented in this encounter [facility] 07-09-2024 History of Present illness Narrative [facility] received prescription(s) for Xtandi from Dr. Payne's office. Benefits investigation was conducted, indicating that a prior authorization is required by patient's insurance plan with [facility]. Encounter will be updated once prior authorization has been submitted by [facility]. Bertha Torres CPhT [facility], Oncology P: / F: documented in this encounter [facility] 07-09-2024 Note HNO ID: [id number] Author: CONNER AUSTIN RPh Service: ? Author Type: ? Type: Progress Notes Filed: 07/26/2024 11:56 Note Text: Prior authorization was approved for Xtandi. Plan Name: [employer] reference number: [id number] Approval Dates: 07/24/2024 - 01/24/2025 However, s/he is required to use [facility] to fill this medication. Will queue prescription(s) to go to designated specialty pharmacy. For reference, their pharmacy phone number is [phone]. No further action by [facility]. Latasha Austin, PharmD Clinical Pharmacist, Oncology [facility] P: , F: Pool: P [facility] ON[facility] Pool #: [id number] [facility] 07-09-2024 Note HNO ID: [id number] Author: ?, ?, ? Service: ? Author Type: ? Type: Progress Notes Filed: 07/09/2024 16:34 Note Text: [facility] received prescription(s) for Xtandi from Dr. Payne's office. Benefits investigation was conducted, indicating that a prior authorization is required by patient's insurance plan with [employer]. Encounter will be updated once prior authorization has been submitted by [facility]. Bertha Torres CPhT [facility], Oncology P: / F: [facility] 07-09-2024 Note HNO ID: [id number] Author: JOHAN PAYNE MD Service: ? Author Type: Physician Type: Progress Notes Filed: 07/09/2024 09:43 Note Text: (Elements copied from my note dated February 27, 2024, have been reviewed and updated where appropriate, and all reflect current assessment and medical decision making from today's encounter, July 09, 2024) HISTORY OF PRESENT ILLNESS: Clint Villar is a 83 year old male in excellent health had a cologuard come back positive. A colonography CT scan was done that showed retroperitoneal adenopathy, enlarged prostate gland and possible rectal mass. Colonoscopy was negative for rectal mass. Saw urology PSA 73.59 (was 71 in January 2023). Prostate enlarged and firm. Biopsy of prostate is planned for mid January. 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 Reviewed case also with Dr Aguilar. Met in follow up, reviewed prostate biopsy shows adenocarcinoma. Bone scan focally positive. Retro peritoneal adenopathy. PSA now normal, we see improvement in adenopathy, hydronephrosis Recurrent UTI since stent placement. CLINICAL IMPRESSION: Elevated PSA Enlarged and firm prostate Retroperitoneal adenopathy Prostate cancer on biopsy PSA improved on GnRH agonist RECOMMENDATION/PLAN: 1. continue GnRH agonist, will add in enzalutamide when feasible. 2. Follow up with urology. ?need for ureteral stent removal 3. Back in 6 weeks with PSA and lupron, plan to add in enzalutamide in that time frame as well Written and verbal health teaching given to patient, patient verbalizes understanding and agrees with treatment plan. 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 PAST SURGICAL HISTORY 2005: OPEN REPAIR OF ROTATOR CUFF ACUTE; Right Comment: Rotator cuff repair, right 1950s: TONSILLECTOMY PRIMARY/SECONDARY Comment: Tonsillectomy FAMILY HISTORY Problem Relation Age of Onset other (Other) Mother no contact Coronary Artery Disease Father Heart Failure Father Diabetes Father Cancer Paternal Grandfather Cancer Half-brother Social History Tobacco Use Smoking status: Former Types: Cigarettes Smokeless tobacco: Never Tobacco comments: Pt smoked 1 pack daily x 20 years, Vaping Use Vaping status: Never Used Substance Use Topics Alcohol use: Yes Alcohol/week: 1.0 standard drink of alcohol Types: 1 Cans of beer per week Drug use: Never ALLERGIES: ALLERGIES No Known Allergies CURRENT OUTPATIENT MEDICATIONS: levothyroxine (SYNTHROID) 112 mcg tablet Take 1 tablet by mouth once daily. Take on empty stomach. For thyroid finasteride (PROSCAR) 5 mg tablet Take 1 tablet by mouth once daily apixaban (ELIQUIS) 5 mg tab(s) Take 1 tablet by mouth two times a day. metoprolol tartrate, short acting, (LOPRESSOR) 50 mg tablet Take 1 tablet by mouth two times a day. amLODIPine (NORVASC) 5 mg tablet Take 1 tablet by mouth once daily. hydrOXYzine HCl (ATARAX) 25 mg tablet Take 1 tablet by mouth daily at bedtime. losartan (COZAAR) 100 mg tablet Take 1 tablet by mouth once daily. valACYclovir (VALTREX) 500 mg tablet Take 1 tablet by mouth once daily. atorvastatin (LIPITOR) 40 mg tablet Take 1 tablet by mouth daily at bedtime. tamsulosin (FLOMAX) 0.4 mg Take 2 capsules by mouth daily at bedtime. cyclobenzaprine (FLEXERIL) 10 mg tablet Take 1 tablet by mouth twice daily as needed for muscle spasm. levoFLOXacin (LEVAQUIN) 750 mg tablet Take 1 tablet by mouth once daily. Start the day before the biopsy REVIEW OF SYSTEMS: GENERAL: No fever, night sweats, weight loss or malaise. All other reviewed and negative other than HPI. PHYSICAL EXAMINATION: VITAL SIGNS: BP 159/69 Pulse 44 Temp (Src) 97.4 (Temporal) Ht 5' 5.5 (1.66m) Wt 212 lb 8 oz (96.4kg) SpO2 97% BMI 34.81 kg/(m2). GENERAL APPEARANCE: Well appearing, in no acute distress, alert and oriented x3, well-hydrated, well nourished. I spent (more content not included)... [facility] 07-09-2024 History of Present illness Narrative (Elements copied from my note dated February 27, 2024, have been reviewed and updated where appropriate, and all reflect current assessment and medical decision making from today's encounter, July 09, 2024) HISTORY OF PRESENT ILLNESS: Clint Villar is a 83 year old male in excellent health had a cologuard come back positive. A colonography CT scan was done that showed retroperitoneal adenopathy, enlarged prostate gland and possible rectal mass. Colonoscopy was negative for rectal mass. Saw urology PSA 73.59 (was 71 in January 2023). Prostate enlarged and firm. Biopsy of prostate is planned for mid January. 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 Reviewed case also with Dr Aguilar. Met in follow up, reviewed prostate biopsy shows adenocarcinoma. Bone scan focally positive. Retro peritoneal adenopathy. PSA now normal, we see improvement in adenopathy, hydronephrosis Recurrent UTI since stent placement. CLINICAL IMPRESSION: Elevated PSA Enlarged and firm prostate Retroperitoneal adenopathy Prostate cancer on biopsy PSA improved on GnRH agonist RECOMMENDATION/PLAN: 1. continue GnRH agonist, will add in enzalutamide when feasible. 2. Follow up with urology. ?need for ureteral stent removal 3. Back in 6 weeks with PSA and lupron, plan to add in enzalutamide in that time frame as well Written and verbal health teaching given to patient, patient verbalizes understanding and agrees with treatment plan. 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 PAST SURGICAL HISTORY 2005: OPEN REPAIR OF ROTATOR CUFF ACUTE; Right Comment: Rotator cuff repair, right 1950s: TONSILLECTOMY PRIMARY/SECONDARY <AGE 14 Comment: Tonsillectomy FAMILY HISTORY Problem Relation Age of Onset other (Other) Mother no contact Coronary Artery Disease Father Heart Failure Father Diabetes Father Cancer Paternal Grandfather Cancer Half-brother Social History Tobacco Use Smoking status: Former Types: Cigarettes Smokeless tobacco: Never Tobacco comments: Pt smoked 1 pack daily x 20 years, Vaping Use Vaping status: Never Used Substance Use Topics Alcohol use: Yes Alcohol/week: 1.0 standard drink of alcohol Types: 1 Cans of beer per week Drug use: Never ALLERGIES: ALLERGIES No Known Allergies CURRENT OUTPATIENT MEDICATIONS: levothyroxine (SYNTHROID) 112 mcg tablet Take 1 tablet by mouth once daily. Take on empty stomach. For thyroid finasteride (PROSCAR) 5 mg tablet Take 1 tablet by mouth once daily apixaban (ELIQUIS) 5 mg tab(s) Take 1 tablet by mouth two times a day. metoprolol tartrate, short acting, (LOPRESSOR) 50 mg tablet Take 1 tablet by mouth two times a day. amLODIPine (NORVASC) 5 mg tablet Take 1 tablet by mouth once daily. hydrOXYzine HCl (ATARAX) 25 mg tablet Take 1 tablet by mouth daily at bedtime. losartan (COZAAR) 100 mg tablet Take 1 tablet by mouth once daily. valACYclovir (VALTREX) 500 mg tablet Take 1 tablet by mouth once daily. atorvastatin (LIPITOR) 40 mg tablet Take 1 tablet by mouth daily at bedtime. tamsulosin (FLOMAX) 0.4 mg Take 2 capsules by mouth daily at bedtime. cyclobenzaprine (FLEXERIL) 10 mg tablet Take 1 tablet by mouth twice daily as needed for muscle spasm. levoFLOXacin (LEVAQUIN) 750 mg tablet Take 1 tablet by mouth once daily. Start the day before the biopsy REVIEW OF SYSTEMS: GENERAL: No fever, night sweats, weight loss or malaise. All other reviewed and negative other than HPI. PHYSICAL EXAMINATION: VITAL SIGNS: BP 159/69 Pulse 44 Temp (Src) 97.4 (Temporal) Ht 5' 5.5 (1.66m) Wt 212 lb 8 oz (96.4kg) SpO2 97% BMI 34.81 kg/(m^2). GENERAL APPEARANCE: Well appearing, in no acute distress, alert and oriented x3, well-hydrated, well nourished. I spent a total of 30 minutes on the date of the service which included preparing to see the patient, [id number] patient care, completing clinical documentation, obtaining and/or reviewing separately obtained history, counseling and educating the patient/family/caregiver, ordering medications, tests, or procedures, communicating with other HCPs (not separately reported), independently interpreting results (not separately reported), and communicating results to the patient/family/caregiver. Electronically Signed: Johan Payne MD July 09, 2024 documented in this encounter [facility] 07-09-2024 Telephone encounter Note Okay to schedule for office cystoscopy and bilateral ureteral stent removal [facility] 07-09-2024 Miscellaneous Notes Okay to schedule for office cystoscopy and bilateral ureteral stent removal Patient states leaving for [place] on August 02 and has stents in place, wanting to know if he can have the stents out before he leaves for [place]? Please advise Thanks documented in this encounter [facility] 2024 Telephone encounter Note Patient states leaving for [place] on August 02 and has stents in place, wanting to know if he can have the stents out before he leaves for [place]? Please advise Thanks [facility] 06-28-2024 Telephone encounter Note Pt called and is notified of providers message and instructions. Pt voices understanding. He states he does take 0.8 mg of the Flomax. Debra Ramirez RN [facility] 06-28-2024 Miscellaneous Notes Pt called and is notified of providers message and instructions. Pt voices understanding. He states he does take 0.8 mg of the Flomax. Debra Ramirez RN 1) Correction: He is prescribed tamsulosin 0.4 mg two capsules at bedtime. (0.8 mg total). 2) He can probably go to any [facility] lab close to where he works. Pt called and is notified of providers message and instructions. Pt voices understanding. Pt states he takes the 0.4 mg of Flomax, but he had been taking it in the morning after he eats. Pt will start taking at night. Pt is going to come in tomorrow morning to do UA and culture. He lives too far away to make it down before the lab closes. Debra Ramirez RN Advise ER for syncope, fever, or worsening symptoms. Keep urology appointment. Urinalysis and urine culture. Verify if he is taking tamsulosin (Flomax) 0.4 mg at bedtime. Patient reports he has had several UTI's in the last couple of months. Calling with concern that he has another UTI and asking for PCP to order urine testing for him, or other advise. Reports he completed the last Macrobid that was ordered for him on 06/14-06/21. Reports he had an improvement and now experiencing sx's again. Reports sx's began again this past Friday and include burning with urination, some intermittent bilateral kidney discomfort, very cloudy urine and some intermittent fatigue/weakness; reports tires quickly. Denies fever or visible blood in urine. Denies feeling faint. No N/V/D. Reports he did faint about 1-2 weeks ago. Reports he has ureter stents in. Sees Urology on 07/15. Please call patient with advise. Pt aware to proceed to ER for severe sx's as discussed. Albertina Bar RN documented in this encounter [facility] 06-28-2024 Telephone encounter Note 1) Correction: He is prescribed tamsulosin 0.4 mg two capsules at bedtime. (0.8 mg total). 2) He can probably go to any [facility] lab close to where he works. [facility] 06-28-2024 Telephone encounter Note Pt called and is notified of providers message and instructions. Pt voices understanding. Pt states he takes the 0.4 mg of Flomax, but he had been taking it in the morning after he eats. Pt will start taking at night. Pt is going to come in tomorrow morning to do UA and culture. He lives too far away to make it down before the lab closes. Debra Ramirez RN [facility] 06-28-2024 Telephone encounter Note Advise ER for syncope, fever, or worsening symptoms. Keep urology appointment. Urinalysis and urine culture. Verify if he is taking tamsulosin (Flomax) 0.[address] [facility] 06-28-2024 Telephone encounter Note Patient reports he has had several UTI's in the last couple of months. Calling with concern that he has another UTI and asking for PCP to order urine testing for him, or other advise. Reports he completed the last Macrobid that was ordered for him on 06/14-06/21. Reports he had an improvement and now experiencing sx's again. Reports sx's began again this past Friday and include burning with urination, some intermittent bilateral kidney discomfort, very cloudy urine and some intermittent fatigue/weakness; reports tires quickly. Denies fever or visible blood in urine. Denies feeling faint. No N/V/D. Reports he did faint about 1-2 weeks ago. Reports he has ureter stents in. Sees Urology on 07/15. Please call patient with advise. Pt aware to proceed to ER for severe sx's as discussed. Albertina Bar RN [facility] 06-23-2024 Telephone encounter Note Pt returned call and given provider's message below with verbalized understanding. Patient agreeable and understands his lab appt is 07/05/24 @ 7:15 am and his appt with Dr. Payne is 07/09/24 @ 8:15 am. Pt states this is fine with him. [facility] 06-23-2024 Miscellaneous Notes Pt returned call and given provider's message below with verbalized understanding. Patient agreeable and understands his lab appt is 07/05/24 @ 7:15 am and his appt with Dr. Payne is 07/09/24 @ 8:15 am. Pt states this is fine with him. I called and left a message for Clint to call back to let him know that said his lab work is schedule for to early at 06/25/24 and it needs rescheduled to the week of his appointment, either Friday or Friday of that week. I went ahead and moved him to Friday07/05/24. Please confirm this new date and time with him or move it to something that works better for him when he calls back. Clare May documented in this encounter [facility] 06-23-2024 Telephone encounter Note I called and left a message for Clint to call back to let him know that said his lab work is schedule for to early at 06/25/24 and it needs rescheduled to the week of his appointment, either Friday or Friday of that week. I went ahead and moved him to Friday07/05/24. Please confirm this new date and time with him or move it to something that works better for him when he calls back. Clare May [facility] 06-21-2024 History of Present illness Narrative Summary: CT Radiology Service Progress Note DATE OF SERVICE: June 21, 2024 TIME: 11:16 AM PATIENT IDENTITY VERIFICATION COMPLETED USING TWO (2) STANDARD IDENTIFIERS: Name and Date of confirmed by patient verbally. FALL SCREENING: Has the patient had 2 falls in the last year or 1 fall with injury or currently using an Ambulatory Assistive Device (Walker, Cane, Wheelchair, Crutches, etc.)? No PATIENT GENDER DATA: Assigned male at PATIENT RELEVANT IMPLANT DATA REVIEWED: Not Applicable PATIENT PRESENTS WITH AN IMPLANTABLE OR ATTACHED DRIER AND EVAPORATOR OPERATOR: No ALLERGIES: Reviewed and unchanged CONTRAST ALLERGY: NO. EXAM: CT -CONTRAST INDUCED NEPHROPATHY RISK FACTORS: Patient age > 60 years CREATININE: Creatinine Date Value Ref Range Status 04/26/2024 1.33 (H) 0.73 - 1.22 mg/dL Final 04/13/2024 1.39 0.50 - 1.40 mg/dL Final Comment: Patients receiving either N-Acetylcysteine (NAC) or Metamizole prior to venipuncture, may have falsely depressed results. 02/28/2024 1.55 (H) 0.50 - 1.40 mg/dL Final Comment: Patients receiving either N-Acetylcysteine (NAC) or Metamizole prior to venipuncture, may have falsely depressed results. Estimated Glomerular Filtration Rate Date Value Ref Range Status 04/26/2024 54 (L) >=60 mL/min/1.73m Final Comment: Estimated Glomerular Filtration Rate (eGFR) is calculated using the 2020 CKD-EPI creatinine equation. This equation utilizes serum creatinine, sex, and age as parameters. The creatinine assay has traceable calibration to isotope dilution-mass spectrometry. Refer to KDIGO guidelines for clinical interpretation. In patients with unstable renal function, e.g. those with acute kidney injury, the eGFR may not accurately reflect actual GFR. eGFR- Date Value Ref Range Status 07/12/2020 >60 Final P.O.C.T. RESULTS: POC done: Yes, See Lab Tab June 21, 2024 TREATMENT: N/A PERIPHERAL IV DATA: Ambulatory: A peripheral IV was started in the Right antecubital site with a Angio cath: 20 gauge. RADIOLOGY DEPARTMENT: CT; Exam(s) Completed: Urogram SIGNATURE: JOSE R Plasencia) PATIENT NAME: Clint Villar DATE: June 21, 2024 TIME: 11:16 AM documented in this encounter [facility] 06-21-2024 Note HNO ID: [id number] Author: EARNESTINE MONTES RT(R) Service: Radiology Author Type: Technologist Type: Progress Notes Filed: 06/21/2024 11:16 Note Text: Summary: CT Radiology Service Progress Note DATE OF SERVICE: June 21, 2024 TIME: 11:16 AM PATIENT IDENTITY VERIFICATION COMPLETED USING TWO (2) STANDARD IDENTIFIERS: Name and Date of confirmed by patient verbally. FALL SCREENING: Has the patient had 2 falls in the last year or 1 fall with injury or currently using an Ambulatory Assistive Device (Walker, Cane, Wheelchair, Crutches, etc.)? No PATIENT GENDER DATA: Assigned male at PATIENT RELEVANT IMPLANT DATA REVIEWED: Not Applicable PATIENT PRESENTS WITH AN IMPLANTABLE OR ATTACHED DRIER AND EVAPORATOR OPERATOR: No ALLERGIES: Reviewed and unchanged CONTRAST ALLERGY: NO. EXAM: CT -CONTRAST INDUCED NEPHROPATHY RISK FACTORS: Patient age > 60 years CREATININE: Creatinine Date Value Ref Range Status 04/26/2024 1.33 (H) 0.73 - 1.22 mg/dL Final 04/13/2024 1.39 0.50 - 1.40 mg/dL Final Comment: Patients receiving either N-Acetylcysteine (NAC) or Metamizole prior to venipuncture, may have falsely depressed results. 02/28/2024 1.55 (H) 0.50 - 1.40 mg/dL Final Comment: Patients receiving either N-Acetylcysteine (NAC) or Metamizole prior to venipuncture, may have falsely depressed results. Estimated Glomerular Filtration Rate Date Value Ref Range Status 04/26/2024 54 (L) >=60 mL/min/1.73m? Final Comment: Estimated Glomerular Filtration Rate (eGFR) is calculated using the 2020 CKD-EPI creatinine equation. This equation utilizes serum creatinine, sex, and age as parameters. The creatinine assay has traceable calibration to isotope dilution-mass spectrometry. Refer to KDIGO guidelines for clinical interpretation. In patients with unstable renal function, e.g. those with acute kidney injury, the eGFR may not accurately reflect actual GFR. eGFR- Date Value Ref Range Status 07/12/2020 >60 Final P.O.C.T. RESULTS: POC done: Yes, See Lab Tab June 21, 2024 TREATMENT: N/A PERIPHERAL IV DATA: Ambulatory: A peripheral IV was started in the Right antecubital site with a Angio cath: 20 gauge. RADIOLOGY DEPARTMENT: CT; Exam(s) Completed: Urogram SIGNATURE: Earnestine Mienr Simon, RT(R) PATIENT NAME: Clint Villar DATE: June 21, 2024 TIME: 11:16 AM [facility] 06-16-2024 Note HNO ID: [id number] Author: VALENTINA BERRY PA-C Service: ? Author Type: Physician Senior Quantity Surveyor Type: Progress Notes Filed: 06/16/2024 15:24 Note Text: This note was created using [email or web address]. Subjective Clint Villar is a 83 year old male. Patient is an 83-year-old male who complains of congestion and cough that developed last evening. Patient also reports mild sinus pressure. Patient denies ear pain or sore throat. Patient reports no fever, chills or myalgia. Patient has no history of asthma or COPD and does not smoke. Review of Systems HENT: Positive for congestion and sinus pressure. Respiratory: Positive for cough. All other systems reviewed and are negative. Objective BP 114/61 Pulse (!) 58 Temp 36.8 ?C (98.2 ?F) Resp 18 Wt 89.5 kg (197 lb 5 oz) SpO2 97% BMI 32.09 kg/m? Physical Exam Vitals and nursing note reviewed. Constitutional: Appearance: Normal appearance. He is normal weight. HENT: Head: Normocephalic and atraumatic. Right Ear: Tympanic membrane, ear canal and external ear normal. Left Ear: Tympanic membrane, ear canal and external ear normal. Nose: Nose normal. Mouth/Throat: Mouth: Mucous membranes are moist. Pharynx: Oropharynx is clear. Eyes: Extraocular Movements: Extraocular movements intact. Conjunctiva/sclera: Conjunctivae normal. Pupils: Pupils are equal, round, and reactive to light. Cardiovascular: Rate and Rhythm: Normal rate and regular rhythm. Pulses: Normal pulses. Heart sounds: Normal heart sounds. Pulmonary: Effort: Pulmonary effort is normal. Breath sounds: Normal breath sounds. Musculoskeletal: Cervical back: Normal range of motion and neck supple. Skin: General: Skin is warm and dry. Capillary Refill: Capillary refill takes less than 2 seconds. Neurological: General: No focal deficit present. Mental Status: He is alert and oriented to person, place, and time. Psychiatric: Mood and Affect: Mood normal. Behavior: Behavior normal. Thought Content: Thought content normal. Judgment: Judgment normal. Assessment and Plan Fully unremarkable physical exam findings as noted above. Rapid influenza A/B test is negative. Supportive care instructions were discussed and the patient verbalizes excellent understanding of same. CLINICAL IMPRESSION: Acute URI ASSESSMENT/PLAN: 1. Acute URI - ICD9: 465.9, ICD10: J06.9 - INFLUENZA AANDB MOLECULAR (POC) Valentina Berry PA-C [facility] 06-16-2024 History of Present illness Narrative This note was created using [employer]. Subjective Clint Villar is a 83 year old male. Patient is an 83-year-old male who complains of congestion and cough that developed last evening. Patient also reports mild sinus pressure. Patient denies ear pain or sore throat. Patient reports no fever, chills or myalgia. Patient has no history of asthma or COPD and does not smoke. Review of Systems HENT: Positive for congestion and sinus pressure. Respiratory: Positive for cough. All other systems reviewed and are negative. Objective BP 114/61 Pulse (!) 58 Temp 36.8 C (98.2 F) Resp 18 Wt 89.5 kg (197 lb 5 oz) SpO2 97% BMI 32.09 kg/m Physical Exam Vitals and nursing note reviewed. Constitutional: Appearance: Normal appearance. He is normal weight. HENT: Head: Normocephalic and atraumatic. Right Ear: Tympanic membrane, ear canal and external ear normal. Left Ear: Tympanic membrane, ear canal and external ear normal. Nose: Nose normal. Mouth/Throat: Mouth: Mucous membranes are moist. Pharynx: Oropharynx is clear. Eyes: Extraocular Movements: Extraocular movements intact. Conjunctiva/sclera: Conjunctivae normal. Pupils: Pupils are equal, round, and reactive to light. Cardiovascular: Rate and Rhythm: Normal rate and regular rhythm. Pulses: Normal pulses. Heart sounds: Normal heart sounds. Pulmonary: Effort: Pulmonary effort is normal. Breath sounds: Normal breath sounds. Musculoskeletal: Cervical back: Normal range of motion and neck supple. Skin: General: Skin is warm and dry. Capillary Refill: Capillary refill takes less than 2 seconds. Neurological: General: No focal deficit present. Mental Status: He is alert and oriented to person, place, and time. Psychiatric: Mood and Affect: Mood normal. Behavior: Behavior normal. Thought Content: Thought content normal. Judgment: Judgment normal. Assessment and Plan Fully unremarkable physical exam findings as noted above. Rapid influenza A/B test is negative. Supportive care instructions were discussed and the patient verbalizes excellent understanding of same. CLINICAL IMPRESSION: Acute URI ASSESSMENT/PLAN: 1. Acute URI - ICD9: 465.9, ICD10: J06.9 - INFLUENZA A&B MOLECULAR (POC) Valentina Berry PA-C documented in this encounter [facility] 05-28-2024 Telephone encounter Note Discussed with patient mychart message. Advised patient that we will have to await results of CTU prior to discussion of removal of stents/replacement. Advised patient that travel is possible with the stents in place and discussed bladder irritants as well as drinking plenty of water and keeping stools soft and regular. Jacob Jenkins APRN.CNP [facility] Work Phone: 05-28-2024 Miscellaneous Notes Discussed with patient mychart message. Advised patient that we will have to await results of CTU prior to discussion of removal of stents/replacement. Advised patient that travel is possible with the stents in place and discussed bladder irritants as well as drinking plenty of water and keeping stools soft and regular. Jacob Jenkins APRN.CNP documented in this encounter [facility] 05-28-2024 Note HNO ID: [id number] Author: DAWN JAIMES LPN Service: ? Author Type: LICENSED NURSE Type: Progress Notes Filed: 05/28/2024 08:58 Note Text: eligard injection administered, left lower abd,tolerated well, no immediate adverse reactions noted. See OV notes Dawn Jaimes LPN [facility] 05-28-2024 History of Present illness Narrative eligard injection administered, left lower abd,tolerated well, no immediate adverse reactions noted. See OV notes Dawn Jaimes LPN documented in this encounter [facility] 05-28-2024 Note HNO ID: [id number] Author: PINA SCHUSTER, ? Service: ? Author Type: Nurse Practitioner Type: Progress Notes Filed: 05/28/2024 14:46 Note Text: Clint Villar 1940 05/28/2024 HISTORY OF PRESENT ILLNESS: Clint Villar is a 83 year old male in excellent health had a cologuard come back positive. A colonography CT scan was done that showed retroperitoneal adenopathy, enlarged prostate gland and possible rectal mass. Colonoscopy was negative for rectal mass. Saw urology PSA 73.59 (was 71 in January 2023). Prostate enlarged and firm. Biopsy of prostate is planned for mid January. 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 Reviewed case also with Dr Aguilar. Met in follow up, reviewed prostate biopsy shows adenocarcinoma. Bone scan focally positive. Interval hx: Pt presents today for follow up of prostate cancer. PSA pending today. Reports feeling well overall. Currently being treated for UTI. Started abx yesterday. Was having dysuria. No noticeable hematuria. Otherwise denies new issues. No new aches or pains. No SOB, CP. Palpitations. No changes in bowel habits. No bleeding. CLINICAL IMPRESSION: Prostate Cancer, castrate sensitive metastatic Cindy 8 12/12 cores Obstructive retroperitoneal adenopathy - completed radiation with Dr. Aguilar 03/09/24 - 03/23/24 RECOMMENDATION/PLAN: 1. Continue with lupron 2. Follow up with urology. Has upcoming appt and CT urogram scheduled 3. 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 PAST SURGICAL HISTORY 2005: OPEN REPAIR OF ROTATOR CUFF ACUTE; Right Comment: Rotator cuff repair, right 1950s: TONSILLECTOMY PRIMARY/SECONDARY Comment: Tonsillectomy FAMILY HISTORY Problem Relation Age of Onset other (Other) Mother no contact Coronary Artery Disease Father Heart Failure Father Diabetes Father Cancer Paternal Grandfather Cancer Half-brother Social History Tobacco Use Smoking status: Former Types: Cigarettes Smokeless tobacco: Never Tobacco comments: Pt smoked 1 pack daily x 20 years, Vaping Use Vaping status: Never Used Substance Use Topics Alcohol use: Yes Alcohol/week: 1.0 standard drink of alcohol Types: 1 Cans of beer per week Drug use: Never ALLERGIES: ALLERGIES No Known Allergies CURRENT OUTPATIENT MEDICATIONS: levothyroxine (SYNTHROID) 112 mcg tablet Take 1 tablet by mouth once daily. Take on empty stomach. For thyroid finasteride (PROSCAR) 5 mg tablet Take 1 tablet by mouth once daily apixaban (ELIQUIS) 5 mg tab(s) Take 1 tablet by mouth two times a day. metoprolol tartrate, short acting, (LOPRESSOR) 50 mg tablet Take 1 tablet by mouth two times a day. amLODIPine (NORVASC) 5 mg tablet Take 1 tablet by mouth once daily. hydrOXYzine HCl (ATARAX) 25 mg tablet Take 1 tablet by mouth daily at bedtime. losartan (COZAAR) 100 mg tablet Take 1 tablet by mouth once daily. valACYclovir (VALTREX) 500 mg tablet Take 1 tablet by mouth once daily. atorvastatin (LIPITOR) 40 mg tablet Take 1 tablet by mouth daily at bedtime. tamsulosin (FLOMAX) 0.4 mg Take 2 capsules by mouth daily at bedtime. cyclobenzaprine (FLEXERIL) 10 mg tablet Take 1 tablet by mouth twice daily as needed for muscle spasm. levoFLOXacin (LEVAQUIN) 750 mg tablet Take 1 tablet by mouth once daily. Start the day before the biopsy LABS: Lab Results Component Value Date PSA 5.94 (H) 04/14/2024 PSA 5.50 (H) 04/13/2024 PSA 73.59 (H) 10/22/2023 PSA 71.22 (H) 01/03/2023 Pending today REVIEW OF SYSTEMS: GENERAL: No fever, night sweats, weight loss or malaise. All other reviewed and negative other than HPI. All systems reviewed on 05/28/2024 with pertinent positives and negatives as outlined in the interval history. PHYSICAL EXAMINATION: VITAL SIGNS: BP 159/69 Pulse 44 Temp (Src) 97.4 (Temporal) Ht 5' 5.5 (1.66m) Wt 212 lb 8 oz (96.4kg) SpO2 97% (more content not included)... [facility] 05-28-2024 History of Present illness Narrative Clint Villar 1940 05/28/2024 HISTORY OF PRESENT ILLNESS: Clint Villar is a 83 year old male in excellent health had a cologuard come back positive. A colonography CT scan was done that showed retroperitoneal adenopathy, enlarged prostate gland and possible rectal mass. Colonoscopy was negative for rectal mass. Saw urology PSA 73.59 (was 71 in January 2023). Prostate enlarged and firm. Biopsy of prostate is planned for mid January. 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 Reviewed case also with Dr Aguilar. Met in follow up, reviewed prostate biopsy shows adenocarcinoma. Bone scan focally positive. Interval hx: Pt presents today for follow up of prostate cancer. PSA pending today. Reports feeling well overall. Currently being treated for UTI. Started abx yesterday. Was having dysuria. No noticeable hematuria. Otherwise denies new issues. No new aches or pains. No SOB, CP. Palpitations. No changes in bowel habits. No bleeding. CLINICAL IMPRESSION: Prostate Cancer, castrate sensitive metastatic Cindy 8 04/15 cores Obstructive retroperitoneal adenopathy - completed radiation with Dr. Aguilar 03/09/24 - 03/23/24 RECOMMENDATION/PLAN: 1. Continue with lupron 2. Follow up with urology. Has upcoming appt and CT urogram scheduled 3. 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 PAST SURGICAL HISTORY 2005: OPEN REPAIR OF ROTATOR CUFF ACUTE; Right Comment: Rotator cuff repair, right 1950s: TONSILLECTOMY PRIMARY/SECONDARY <AGE 14 Comment: Tonsillectomy FAMILY HISTORY Problem Relation Age of Onset other (Other) Mother no contact Coronary Artery Disease Father Heart Failure Father Diabetes Father Cancer Paternal Grandfather Cancer Half-brother Social History Tobacco Use Smoking status: Former Types: Cigarettes Smokeless tobacco: Never Tobacco comments: Pt smoked 1 pack daily x 20 years, Vaping Use Vaping status: Never Used Substance Use Topics Alcohol use: Yes Alcohol/week: 1.0 standard drink of alcohol Types: 1 Cans of beer per week Drug use: Never ALLERGIES: ALLERGIES No Known Allergies CURRENT OUTPATIENT MEDICATIONS: levothyroxine (SYNTHROID) 112 mcg tablet Take 1 tablet by mouth once daily. Take on empty stomach. For thyroid finasteride (PROSCAR) 5 mg tablet Take 1 tablet by mouth once daily apixaban (ELIQUIS) 5 mg tab(s) Take 1 tablet by mouth two times a day. metoprolol tartrate, short acting, (LOPRESSOR) 50 mg tablet Take 1 tablet by mouth two times a day. amLODIPine (NORVASC) 5 mg tablet Take 1 tablet by mouth once daily. hydrOXYzine HCl (ATARAX) 25 mg tablet Take 1 tablet by mouth daily at bedtime. losartan (COZAAR) 100 mg tablet Take 1 tablet by mouth once daily. valACYclovir (VALTREX) 500 mg tablet Take 1 tablet by mouth once daily. atorvastatin (LIPITOR) 40 mg tablet Take 1 tablet by mouth daily at bedtime. tamsulosin (FLOMAX) 0.4 mg Take 2 capsules by mouth daily at bedtime. cyclobenzaprine (FLEXERIL) 10 mg tablet Take 1 tablet by mouth twice daily as needed for muscle spasm. levoFLOXacin (LEVAQUIN) 750 mg tablet Take 1 tablet by mouth once daily. Start the day before the biopsy LABS: Lab Results Component Value Date PSA 5.94 (H) 04/14/2024 PSA 5.50 (H) 04/13/2024 PSA 73.59 (H) 10/22/2023 PSA 71.22 (H) 01/03/2023 Pending today REVIEW OF SYSTEMS: GENERAL: No fever, night sweats, weight loss or malaise. All other reviewed and negative other than HPI. All systems reviewed on 05/28/2024 with pertinent positives and negatives as outlined in the interval history. PHYSICAL EXAMINATION: VITAL SIGNS: BP 159/69 Pulse 44 Temp (Src) 97.4 (Temporal) Ht 5' 5.5 (1.66m) Wt 212 lb 8 oz (96.4kg) SpO2 97% BMI 34.81 kg/(m^2). GENERAL APPEARANCE: Well appearing, in no acute distress, alert and oriented x3, well-hydrated, well nourished. CHEST: Clear bilaterally HEART: RRR EXTREMITIES: no edema I have performed the physical exam today (05/28/2024) and have edited the note to correlate with current findings. Pina Schuster APRN.[place] I spent a total of 30 minutes on the date of the service which included preparing to see the patient, [id number] patient care, completing clinical documentation, obtaining and/or reviewing separately obtained history, and counseling and educating the patient/family/caregiver. Portions of this note including HPI, ROS, impression/plan may have been copied forward as to provide important historical information essential in contributing to medical decision making. Documentation has been reviewed and edited as necessary to support clinical decision making for today's visit and to reflect my own independent evaluation of this patient. documented in this encounter [facility] 05-27-2024 Telephone encounter Note Left VM for patient to return call. Jacob Jenkins APRN.CNP [facility] Work Phone: 05-27-2024 Miscellaneous Notes Left VM for patient to return call. Jacob Jenkins APRN.CNP documented in this encounter [facility] 05-21-2024 History of Present illness Narrative This note was created using [email or web address]. Subjective Clint Villar is a 83 year old male. He had admission for complicated urinary tract infection. He was better in some respects but continued to have pelvic pains with urination. He had stents in place, scheduled to be reevaluated by urology next month. His fatigue was better. His anemia was better. He saw cardiology last month and due to significant bradycardia he was instructed to reduce metoprolol to 25 mg BID. He misunderstood and was taking 50 mg 1/2 tablet daily. He now gave a longstanding history of acid reflux, taking over the counter omeprazole. He was advised in the hospital to stop omeprazole due to an interaction, and his GERD was not being controlled with famotidine 3 tablets daily. Review of Systems Constitutional: Positive for fatigue. Negative for chills, diaphoresis and fever. Respiratory: Negative for chest tightness and shortness of breath. Cardiovascular: Negative for chest pain, palpitations and leg swelling. Gastrointestinal: Positive for abdominal pain. Negative for nausea and vomiting. Genitourinary: Positive for dysuria. Negative for difficulty urinating, flank pain and hematuria. 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 ascorbic acid, vitamin C, (VITAMIN C) 500 mg tablet Take 1 tablet by mouth once daily. cyclobenzaprine (FLEXERIL) 10 mg tablet Take 1 tablet by mouth two times a day as needed for muscle spasm. valACYclovir (VALTREX) 500 mg tablet Take 1 tablet by mouth once daily. hydrOXYzine HCl (ATARAX) 25 mg tablet Take 1 tablet by mouth daily at bedtime. losartan (COZAAR) 100 mg tablet Take 1 tablet by mouth once daily. atorvastatin (LIPITOR) 40 mg tablet Take 1 tablet by mouth daily at bedtime. tamsulosin (FLOMAX) 0.4 mg Take 2 capsules by mouth daily at bedtime. levothyroxine (SYNTHROID) 112 mcg tablet Take 1 tablet by mouth once daily. Take on empty stomach. For thyroid apixaban (ELIQUIS) 5 mg tab(s) Take 1 tablet by mouth two times a day. amLODIPine (NORVASC) 5 mg tablet Take 1 tablet by mouth once daily. ferrous sulfate 325 mg (65 mg iron) tablet Take 1 tablet by mouth once daily. iv contrast (will be provided with radiology test) CT Urogram WO/W Inject, intravenously, once for 1 dose.No IV access, insert saline lock prior to the beginning of sedation, infusion, injection of imaging exam. Discontinue saline lock post exam. If Pt. has a central line or IVAD, may access for administration according to line specific nursing protocol. Once exam is complete flush line and de-access according to line specific nursing protocol in the CT contrast administration guidelines link. bicalutamide (CASODEX) 50 mg tablet Take 1 tablet by mouth once daily. Take for 10 days starting when you get lupron injection No current facility-administered medications for this visit. Objective BP 116/64 Pulse (!) 49 Temp 36.3 C (97.3 F) (Temporal) Resp 14 Wt 86.4 kg (190 lb 7.6 oz) SpO2 98% BMI 30.74 kg/m Physical Exam Constitutional: General: He is not in acute distress. Appearance: He is not ill-appearing or diaphoretic. Cardiovascular: Rate and Rhythm: Regular rhythm. Bradycardia present. Heart sounds: No murmur heard. No gallop. Pulmonary: Breath sounds: Normal breath sounds. Abdominal: General: There is no distension. Palpations: Abdomen is soft. Tenderness: There is no abdominal tenderness. There is no right CVA tenderness or left CVA tenderness. Musculoskeletal: Right lower leg: No edema. Left lower leg: No edema. Neurological: Mental Status: He is alert. Gait: Gait normal. Latest Ref Rng 05/21/2024 GLUCOSE UA (POCT) Negative mg/dL Negative BILIRUBIN UA (POCT) Negative Negative KETONE UA (POCT) Negative mg/dL Negative SPECIFIC GRAVITY UA (POCT) 1.005 - 1.030 1.015 HEMOGLOBIN/BLOOD UA (POCT) Negative Small ! PH UA (POCT) 4.5 - 8.0 6.5 PROTEIN UA (POCT) Negative mg/dL 30 ! UROBILINOGEN UA (POCT) Normal E.U./dL 0.2 NITRITE UA (POCT) Negative Negative LEUKOCYTES UA (POCT) Negative Large ! COLOR UA (POCT) Yellow CLARITY UA (POCT) Clear Legend: ! Abnormal Assessment and Plan 1. Dysuria - ICD9: 788.1, ICD10: R30.0 (primary diagnosis) complicated - Send urine for culture - UA DIP, URINE (POC) - BACTERIAL CULTURE, URINE 2. New onset atrial fibrillation (HCC) - ICD9: 427.31, ICD10: I48.91 Dose updated but I recommend he discontinue. - METOPROLOL TARTRATE 25 MG TABLET 3. Bradycardia - ICD9: 427.89, ICD10: R00.1 Discontinue METOPROLOL. Check pulse regularly. Call for pulse >100. 4. Paroxysmal atrial fibrillation (HCC) - ICD9: 427.31, ICD10: I48.0 Controlled, anticoagulated. 5. Obstructive uropathy - ICD9: 599.60, ICD10: N13.[address] He will see urology as scheduled. 6. Anemia, unspecified type - ICD9: 285.9, ICD10: D64.9 Improved. 7. Gastroesophageal reflux disease, unspecified whether esophagitis present - ICD9: 530.81, ICD10: K21.9 - Begin treatment with pantoprazole QD - PANTOPRAZOLE 20 MG TABLET,DELAYED RELEASE Cody Carrington MD documented in this encounter [facility] 05-21-2024 Note HNO ID: [id number] Author: CODY CARRINGTON MD Service: ? Author Type: Physician Type: Progress Notes Filed: 05/21/2024 09:00 Note Text: This note was created using [employer]. Subjective Clint Villar is a 83 year old male. He had admission for complicated urinary tract infection. He was better in some respects but continued to have pelvic pains with urination. He had stents in place, scheduled to be reevaluated by urology next month. His fatigue was better. His anemia was better. He saw cardiology last month and due to significant bradycardia he was instructed to reduce metoprolol to 25 mg BID. He misunderstood and was taking 50 mg 1/2 tablet daily. He now gave a longstanding history of acid reflux, taking over the counter omeprazole. He was advised in the hospital to stop omeprazole due to an interaction, and his GERD was not being controlled with famotidine 3 tablets daily. Review of Systems Constitutional: Positive for fatigue. Negative for chills, diaphoresis and fever. Respiratory: Negative for chest tightness and shortness of breath. Cardiovascular: Negative for chest pain, palpitations and leg swelling. Gastrointestinal: Positive for abdominal pain. Negative for nausea and vomiting. Genitourinary: Positive for dysuria. Negative for difficulty urinating, flank pain and hematuria. 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 ascorbic acid, vitamin C, (VITAMIN C) 500 mg tablet Take 1 tablet by mouth once daily. cyclobenzaprine (FLEXERIL) 10 mg tablet Take 1 tablet by mouth two times a day as needed for muscle spasm. valACYclovir (VALTREX) 500 mg tablet Take 1 tablet by mouth once daily. hydrOXYzine HCl (ATARAX) 25 mg tablet Take 1 tablet by mouth daily at bedtime. losartan (COZAAR) 100 mg tablet Take 1 tablet by mouth once daily. atorvastatin (LIPITOR) 40 mg tablet Take 1 tablet by mouth daily at bedtime. tamsulosin (FLOMAX) 0.4 mg Take 2 capsules by mouth daily at bedtime. levothyroxine (SYNTHROID) 112 mcg tablet Take 1 tablet by mouth once daily. Take on empty stomach. For thyroid apixaban (ELIQUIS) 5 mg tab(s) Take 1 tablet by mouth two times a day. amLODIPine (NORVASC) 5 mg tablet Take 1 tablet by mouth once daily. ferrous sulfate 325 mg (65 mg iron) tablet Take 1 tablet by mouth once daily. iv contrast (will be provided with radiology test) CT Urogram WO/W Inject, intravenously, once for 1 dose.No IV access, insert saline lock prior to the beginning of sedation, infusion, injection of imaging exam. Discontinue saline lock post exam. If Pt. has a central line or IVAD, may access for administration according to line specific nursing protocol. Once exam is complete flush line and de-access according to line specific nursing protocol in the CT contrast administration guidelines link. bicalutamide (CASODEX) 50 mg tablet Take 1 tablet by mouth once daily. Take for 10 days starting when you get lupron injection No current facility-administered medications for this visit. Objective BP 116/64 Pulse (!) 49 Temp 36.3 ?C (97.3 ?F) (Temporal) Resp 14 Wt 86.4 kg (190 lb 7.6 oz) SpO2 98% BMI 30.74 kg/m? Physical Exam Constitutional: General: He is not in acute distress. Appearance: He is not ill-appearing or diaphoretic. Cardiovascular: Rate and Rhythm: Regular rhythm. Bradycardia present. Heart sounds: No murmur heard. No gallop. Pulmonary: Breath sounds: Normal breath sounds. Abdominal: General: There is no distension. Palpations: Abdomen is soft. Tenderness: There is no abdominal tenderness. There is no right CVA tenderness or left CVA tenderness. Musculoskeletal: Right lower leg: No edema. Left lower leg: No edema. Neurological: Mental Status: He is alert. Gait: Gait normal. Latest Ref Rng 05/21/2024 GLUCOSE UA (POCT) Negative mg/dL Negative BILIRUBIN UA (POCT) Negative Negative KETONE UA (POCT) Negative mg/dL Negative SPECIFIC GRAVITY UA (POCT) 1.005 - 1.030 1.015 HEMOGLOBIN/BLOOD UA (POCT) Negative Small ! PH UA (POCT) 4.5 - 8.0 6.5 PROTEIN UA (POCT) Negative mg/dL 30 ! UROBILINOGEN UA (POCT) Normal E.U./dL 0.2 NITRITE UA (POCT) Negative Negative LEUKOCYTES UA (POCT) Negative Large ! COLOR UA (POCT) Yellow CLARITY UA (POCT) Clear Legend: ! Abnormal Assessment and Plan 1. Dysuri (more content not included)... [facility] 05-06-2024 Telephone encounter Note Patient is leaving for [place] 08/01/24, I spoke with the today and she is asking if the stents will be removed prior to their vacation. They currently are scheduled for the CT Urogram 06/21/24 and an established follow up 07/15/24. Please advise, thank you. [facility] 05-06-2024 Miscellaneous Notes Patient is leaving for [place] 08/01/24, I spoke with the today and she is asking if the stents will be removed prior to their vacation. They currently are scheduled for the CT Urogram 06/21/24 and an established follow up 07/15/24. Please advise, thank you. documented in this encounter [facility] 05-03-2024 Telephone encounter Note was notified Lucia Abbott MA [facility] 05-03-2024 Miscellaneous Notes was notified Lucia Abbott MA Continue with daily iron Leela Drake APRN.CNP Spouse (Susanne) calls to report that it was recommended by provider that patient take Iron d/t his anemia. Susanne picked up Iron 65 mg (ferrous sulfate 325 mg) but wants to verify how often patient should take medication as she doesn't want to give him too much. Currently Susanne is having patient take 1 Iron tablet daily with 1 Vitamin C and will continue until hears any changes from provider. Please review and advise, Skylar Abraham RN documented in this encounter [facility] 05-03-2024 Telephone encounter Note Continue with daily iron Leela Drake APRN.CNP [facility] 04-29-2024 Telephone encounter Note Spouse (Susanne) calls to report that it was recommended by provider that patient take Iron d/t his anemia. Susanne picked up Iron 65 mg (ferrous sulfate 325 mg) but wants to verify how often patient should take medication as she doesn't want to give him too much. Currently Susanne is having patient take 1 Iron tablet daily with 1 Vitamin C and will continue until hears any changes from provider. Please review and advise, Skylar Abraham RN [facility] 04-26-2024 Instructions Leela Drake APRN.[place] - 04/26/2024 1:52 PM EST Miralax for constipation documented in this encounter [facility] 04-26-2024 Note HNO ID: [id number] Author: LEELA DRAKE APRN.[place] Service: ? Author Type: Nurse Practitioner Type: Progress Notes Filed: 04/26/2024 16:15 Note Text: CC: Patient presents with: Hospital F/U: [facility] d/c UTI HPI Clint Villar is a 83 year old male who presents today for above. He was admitted to [facility] 04/16 to 04/18 for complicated UTI. Treated initially with ceftriaxone, urine culture positive for E. Faecalis and he was switched to Cipro. Discharged home with five day course of Macrobid. No medication changes were made. Follow-up with urologist for stent removal still needs scheduled. Today patient reports he is feeling well. He has been a little weak and fatigued since he returned home but this is improving. He no longer has a borrego catheter. Reports some hesitancy and does not feel that he always completely empties his bladder. Denies decreased urine output, hematuria, dysuria, incontinence. He has been constipated but denies abdominal pain or distention. Review of Systems Constitutional: Positive for fatigue. Negative for chills, diaphoresis, fever and unexpected weight change. Respiratory: Negative for shortness of breath. Cardiovascular: Negative for chest pain, palpitations and leg swelling. Gastrointestinal: Negative for diarrhea, nausea and vomiting. Neurological: Negative for dizziness, syncope, weakness, light-headedness and headaches. PAST MEDICAL HISTORY Diagnosis Date Admitted for observation ADMITTED WITH NEW ONSET AFIB MAY 2023, MED AND SENT HOME TO FOLLOW UP WITH CARDIOLOGY 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 Anticoagulant long-term use 10/21/2023 PRIMARY FOLLOWS CURRENTLY, DUE TO SEE [facility] Arthritis At risk for stroke 10/21/2023 D/T AFIB Atrial fibrillation (HCC) COVID-19 virus infection 07/03/2020 Elevated PSA 01/09/2023 DR LARSEN Herpes infection 05/23/2015 Breaks out in sacral area every 2-3 months. 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 HTN (hypertension) 03/08/2014 PRIMARY FOLLOWS Hyperglycemia DIET CONTROLLED PRIMARY FOLLOWS Hyperlipidemia 03/08/2014 Hyperlipidemia, unspecified hyperlipidemia type PRIMARY FOLLOWS Hypotension, unspecified Hypothyroidism 07/21/2014 PRIMARY FOLLOWS Impaired fasting glucose 12/19/2016 DOES NOT REMEMBER Muscle spasm of back 05/23/2015 Obesity, Class I, BMI 30-34.9 01/29/2019 Obesity, Class II, BMI 35-39.9 06/02/2020 Paroxysmal atrial fibrillation (HCC) 06/23/2023 DUE TO SEE [facility] FOR AFIB, PRIMARY FOLLOWS CURRENTLY, DID SEE DR BARRERACHRIS X1 APPOINTMENT BUT DID NOT CARE FOR MD SO WILL NOT GO BACK Positive colorectal cancer screening using Cologuard test 01/03/2023 Primary hypertension PRIMARY FOLLOWS Prostate cancer (HCC) 02/13/2024 DR LARSEN AND DR AGUILAR, AT [facility] IN [place] 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 PAST SURGICAL HISTORY Procedure Laterality Date COLONOSCOPY - DIAGNOSTIC 12/18/2023 CYSTOSCOPY, W/INSERTION URETHRAL STENT Bilateral 03/08/2024 bilateral hydroephrosis OPEN REPAIR OF ROTATOR CUFF ACUTE Right 2005 Rotator cuff repair, right PROSTATE BIOPSY W/TRANSRECTAL US 01/26/2024 TONSILLECTOMY PRIMARY/SECONDARY Tonsillectomy ALLERGIES Latex MEDICATIONS valACYclovir (VALTREX) 500 mg tablet Take 1 tablet by mouth once daily. (Patient taking differently: Take 500 mg by mouth once daily. HERPES, GENITAL) bicalutamide (CASODEX) 50 mg tablet Take 1 tablet by mouth once daily. Take for 10 days starting when you get lupron injection hydrOXYzine HCl (ATARAX) 25 mg tablet Take 1 tablet by mouth daily at bedtime. losartan (COZAAR) 100 mg tablet Take 1 tablet by mouth once daily. atorvastatin (LIPITOR) 40 mg tablet Take 1 tablet by mouth daily at bedtime. tamsulosin (FLOMAX) 0.4 mg Take 2 capsules by mouth daily at bedtime. levothyroxine (SYNTHROID) 112 mcg tablet Take 1 tablet by mouth once daily. Take on empty stomach. For thyroid (Patient taking differently: Take 112 mcg by mouth daily before breakfast. Take on empty stomach. For thyroid) apixaban (ELIQUIS) 5 mg tab(s) Take 1 tablet by mouth two times a day. (Patient taking differently: Take 5 mg by mouth two times a day. LAST DOSE TONIGHT 03/03/[address] L[facility]EN [facility], BUT HAS NOT SEEN THEM YET, DR CARRINGTON IS FOLLOWING AND AWARE THAT HE STOPPED) metoprolol tartrate, short acting, (LOPRESSOR) 50 mg tablet Take 1 tablet by mouth two times a day. amLODIPine (NORVASC) 5 mg tablet Take 1 tablet by mouth once daily. cyclobenzaprine (FLEXERIL) 10 mg tablet Take 1 tablet by mouth twice daily as needed for muscle spasm. iv contrast (will be provided with radiology test) CT Urogram WO/W Inject, intravenously, once for 1 dose.No IV access, insert saline lock prior to the beginning of sedation, infusion, injection of imaging exam. Discontinue saline lock post exam. If Pt. has a central line (more content not included)... [facility] 04-26-2024 History of Present illness Narrative CC: Patient presents with: Hospital F/U: [facility] d/c UTI HPI Clint Villar is a 83 year old male who presents today for above. He was admitted to [facility] 04/16 to 04/18 for complicated UTI. Treated initially with ceftriaxone, urine culture positive for E. Faecalis and he was switched to Cipro. Discharged home with five day course of Macrobid. No medication changes were made. Follow-up with urologist for stent removal still needs scheduled. Today patient reports he is feeling well. He has been a little weak and fatigued since he returned home but this is improving. He no longer has a borrego catheter. Reports some hesitancy and does not feel that he always completely empties his bladder. Denies decreased urine output, hematuria, dysuria, incontinence. He has been constipated but denies abdominal pain or distention. Review of Systems Constitutional: Positive for fatigue. Negative for chills, diaphoresis, fever and unexpected weight change. Respiratory: Negative for shortness of breath. Cardiovascular: Negative for chest pain, palpitations and leg swelling. Gastrointestinal: Negative for diarrhea, nausea and vomiting. Neurological: Negative for dizziness, syncope, weakness, light-headedness and headaches. PAST MEDICAL HISTORY Diagnosis Date Admitted for observation ADMITTED WITH NEW ONSET AFIB MAY 2023, MED AND SENT HOME TO FOLLOW UP WITH CARDIOLOGY 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 Anticoagulant long-term use 10/21/2023 PRIMARY FOLLOWS CURRENTLY, DUE TO SEE [facility] Arthritis At risk for stroke 10/21/2023 D/T AFIB Atrial fibrillation (HCC) COVID-19 virus infection 07/03/2020 Elevated PSA 01/09/2023 DR LARSEN Herpes infection 05/23/2015 Breaks out in sacral area every 2-3 months. 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 HTN (hypertension) 03/08/2014 PRIMARY FOLLOWS Hyperglycemia DIET CONTROLLED PRIMARY FOLLOWS Hyperlipidemia 03/08/2014 Hyperlipidemia, unspecified hyperlipidemia type PRIMARY FOLLOWS Hypotension, unspecified Hypothyroidism 07/21/2014 PRIMARY FOLLOWS Impaired fasting glucose 12/19/2016 DOES NOT REMEMBER Muscle spasm of back 05/23/2015 Obesity, Class I, BMI 30-34.9 01/29/2019 Obesity, Class II, BMI 35-39.9 06/02/2020 Paroxysmal atrial fibrillation (HCC) 06/23/2023 DUE TO SEE [facility] FOR AFIB, PRIMARY FOLLOWS CURRENTLY, [place] [id number] [place] BUT DID NOT CARE FOR MD SO WILL NOT GO BACK Positive colorectal cancer screening using Cologuard test 01/03/2023 Primary hypertension PRIMARY FOLLOWS Prostate cancer (HCC) 02/13/2024 DR LARS[address] DR AGUILAR, AT [facility] IN [place] 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 PAST SURGICAL HISTORY Procedure Laterality Date COLONOSCOPY - DIAGNOSTIC 12/18/2023 CYSTOSCOPY, W/INSERTION URETHRAL STENT Bilateral 03/08/2024 bilateral hydroephrosis OPEN REPAIR OF ROTATOR CUFF ACUTE Right 2005 Rotator cuff repair, right PROSTATE BIOPSY W/TRANSRECTAL US 01/26/2024 TONSILLECTOMY PRIMARY/SECONDARY <AGE 14 1950s Tonsillectomy ALLERGIES Latex MEDICATIONS valACYclovir (VALTREX) 500 mg tablet Take 1 tablet by mouth once daily. (Patient taking differently: Take 500 mg by mouth once daily. HERPES, GENITAL) bicalutamide (CASODEX) 50 mg tablet Take 1 tablet by mouth once daily. Take for 10 days starting when you get lupron injection hydrOXYzine HCl (ATARAX) 25 mg tablet Take 1 tablet by mouth daily at bedtime. losartan (COZAAR) 100 mg tablet Take 1 tablet by mouth once daily. atorvastatin (LIPITOR) 40 mg tablet Take 1 tablet by mouth daily at bedtime. tamsulosin (FLOMAX) 0.4 mg Take 2 capsules by mouth daily at bedtime. levothyroxine (SYNTHROID) 112 mcg tablet Take 1 tablet by mouth once daily. Take on empty stomach. For thyroid (Patient taking differently: Take 112 mcg by mouth daily before breakfast. Take on empty stomach. For thyroid) apixaban (ELIQUIS) 5 mg tab(s) Take 1 tablet by mouth two times a day. (Patient taking differently: Take 5 mg by mouth two times a day. LAST DOSE TONIGHT 03/03/[address] [facility], BUT HAS NOT SEEN THEM YET, DR CARRINGTON IS FOLLOWING AND AWARE THAT HE STOPPED) metoprolol tartrate, short acting, (LOPRESSOR) 50 mg tablet Take 1 tablet by mouth two times a day. amLODIPine (NORVASC) 5 mg tablet Take 1 tablet by mouth once daily. cyclobenzaprine (FLEXERIL) 10 mg tablet Take 1 tablet by mouth twice daily as needed for muscle spasm. iv contrast (will be provided with radiology test) CT Urogram WO/W Inject, intravenously, once for 1 dose.No IV access, insert saline lock prior to the beginning of sedation, infusion, injection of imaging exam. Discontinue saline lock post exam. If Pt. has a central line or IVAD, may access for administration according to line specific nursing protocol. Once exam is complete flush line and de-access according to line specific nursing protocol in the CT contrast administration guidelines link. ondansetron orally disintegrating (ZOFRAN ODT) 8 mg disintegrating tablet Take 1 tablet by mouth every 8 hours as needed for nausea/vomiting. FAMILY HISTORY Problem Relation Age of Onset other (Other) Mother no contact Coronary Artery Disease Father Heart Failure Father Diabetes Father Cancer Paternal Grandfather Cancer Half-brother Social History Tobacco Use Smoking status: Former Types: Cigarettes Passive exposure: Past Smokeless tobacco: Never Tobacco comments: Pt smoked 1 pack daily x 14 years, quit in 1964 Vaping Use Vaping status: Never Used Substance Use Topics Alcohol use: Not Currently Alcohol/week: 1.0 standard drink of alcohol Types: 1 Cans of beer per week Drug use: Never BP 126/74 Pulse (!) 59 Temp 36.6 C (97.9 F) (Temporal) Resp 16 Wt 86.5 kg (190 lb 11.2 oz) SpO2 96% BMI 30.78 kg/m Physical Exam Vitals reviewed. Constitutional: Appearance: Normal appearance. Cardiovascular: Rate and Rhythm: Normal rate and regular rhythm. Heart sounds: Normal heart sounds. No murmur heard. Pulmonary: Effort: Pulmonary effort is normal. Breath sounds: Normal breath sounds. No wheezing, rhonchi or rales. Abdominal: General: Bowel sounds are normal. There is no distension. Palpations: Abdomen is soft. There is no hepatomegaly, splenomegaly or mass. Tenderness: There is abdominal tenderness (mild suprapubic tenderness). There is no right CVA tenderness, left CVA tenderness, guarding or rebound. Neurological: Mental Status: He is alert. I have reviewed the patient s records from [facility] including diagnostic testing performed, their discharge medications, and my assessment and plan with the patient and any family members present at today s visit. ASSESSMENT/PLAN: 1. Complicated UTI (urinary tract infection) - ICD9: 599.0, ICD10: N39.0 (primary diagnosis) Symptoms have resolved. Exam benign. Needs to schedule follow-up with urology. 2. Muscle spasm of back - ICD9: 724.8, ICD10: M62.830 - CYCLOBENZAPRINE 10 MG TABLET refilled Prescription instructions reviewed with patient as applicable. Potential red flag symptoms discussed with the patient. Reviewed appropriate action plan to take if red flag symptoms occur. Patient agreeable to treatment plan. Leela Drake APRN.[employer] ATTENDANT documented in this encounter [facility] 04-23-2024 Telephone encounter Note Patient's calls and states that patient is too weak to come into appointment today. states that patient has been eating very little and is dizzy. Patient is walking to the restroom, but patient does not feel like he can come into office today. thinks that patient's weakness is due to the antibiotics that he is on. Advised that if patient is too weak to come into office then he needs to be evaluated in the ER. does not think he is that weak that he needs evaluated in ER. thinks that once patient is off of antibiotics he will feel better. Patient has 2 days left of antibiotics. rescheduled appointment to 04/26 with Leela. Advised again that if patient has increased weakness then he needs to go to ER. voiced understanding. Shanthi Daly RN [facility] 04-23-2024 Miscellaneous Notes Patient's calls and states that patient is too weak to come into appointment today. states that patient has been eating very little and is dizzy. Patient is walking to the restroom, but patient does not feel like he can come into office today. thinks that patient's weakness is due to the antibiotics that he is on. Advised that if patient is too weak to come into office then he needs to be evaluated in the ER. does not think he is that weak that he needs evaluated in ER. thinks that once patient is off of antibiotics he will feel better. Patient has 2 days left of antibiotics. rescheduled appointment to 04/26 with Leela. Advised again that if patient has increased weakness then he needs to go to ER. voiced understanding. Shanthi Daly RN He can do labs today before appointment. [facility] ER report in [employer], printed for Dr. Carrington to review. Leila Antonio LPN called to let you know pt has a follow apt booked for tomorrow 04-23-24. Pt was to the [facility] ER 04-15-24 and then admitted and released 04-18-24. Pt doing okay weak from urinating a lot and not sleeping because of this. wants to make sure pt gets a urinalysis done and possible other blood work. Please review records from [facility]. Pt has been thru a lot with the prostate cancer and treatment, Pt's apt is 20 minutes for 04-23-24 and it is for a 6 month follow up. Please advise if there is any changes. Danielle Aviles LPN documented in this encounter [facility] 04-23-2024 Telephone encounter Note He can do labs today before appointment. [facility] 04-22-2024 Telephone encounter Note [facility] ER report in [employer], printed for Dr. Carrington to review. Leila Antonio LPN [facility] 04-22-2024 Telephone encounter Note called to let you know pt has a follow apt booked for tomorrow 04-23-24. Pt was to the [facility] ER 04-15-24 and then admitted and released 04-18-24. Pt doing okay weak from urinating a lot and not sleeping because of this. wants to make sure pt gets a urinalysis done and possible other blood work. Please review records from [facility]. Pt has been thru a lot with the prostate cancer and treatment, Pt's apt is 20 minutes for 04-23-24 and it is for a 6 month follow up. Please advise if there is any changes. Danielle Aviles LPN [facility] 04-21-[address] Payne aware and ok with appointment change. Chelsea Fortune RN [facility] Work Phone: 04-21-[address] Payne aware and ok with appointment change. Chelsea Fortune RN Spouse Susanne called to cancel appointments this week due to patient falling a total of 5 times last and Friday and two squad trips to [facility]. Patient is still having weakness and feels he can not make it to the office. Patient was R/S to 05/28 per advise of nurse Sanders. documented in this encounter [facility] 04-20-2024 Telephone encounter Note Spouse Susanne called to cancel appointments this week due to patient falling a total of 5 times last and Friday and two squad trips to [facility]. Patient is still having weakness and feels he can not make it to the office. Patient was R/S to 05/28 per advise of nurse Sanders. [facility] 04-20-2024 Note HNO ID: [id number] Author: RODOLFO AGUILAR MD Service: ? Author Type: Physician Type: Progress Notes Filed: 04/20/2024 13:16 Note Text: AMBULATORY TELEPHONE VISIT Clint Villar has consented to this telephone encounter. Persons Present: patient and patient's spouse/significant other Chief Complaint/Reason: Four week follow-up after radiation treatment. 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 He had UTI last week requiring hospitalization and IV antibiotics. He is at home now and still has significant fatigue. He has nausea but that's improving and he takes Zofran as needed. Data Reviewed: None. Assessment: Acute radiation GI complication of nausea improving. He is recovering slowly from recent UTI. Plan: He is scheduled to see Dr. Payne tomorrow for follow-up. Total Time Spent: 5 minutes Rodolfo Aguilar MD [facility] 04-20-2024 History of Present illness Narrative AMBULATORY TELEPHONE VISIT Clint Villar has consented to this telephone encounter. Persons Present: patient and patient's spouse/significant other Chief Complaint/Reason: Four week follow-up after radiation treatment. 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 He had UTI last week requiring hospitalization and IV antibiotics. He is at home now and still has significant fatigue. He has nausea but that's improving and he takes Zofran as needed. Data Reviewed: None. Assessment: Acute radiation GI complication of nausea improving. He is recovering slowly from recent UTI. Plan: He is scheduled to see Dr. Payne tomorrow for follow-up. Total Time Spent: 5 minutes Rodolfo Aguilar MD documented in this encounter [facility] 04-18-2024 Note [facility] Records Department [address] [place] [address] Discharge Summary 04/18/24 1202 MR#: [id number] Acct: [id number] Name: CLINT VILLAR Rep #: [id number] : [id number] 83 From: Nora Ward MD PCP: Dr. Cody Carrington MD Status:DIS IN [place] [facility] [place] [id number] Providers Date of Admission: 04/16/24 Date of Discharge: 04/18/24 Primary Care Physician: Dr. Cody Carrington MD Reason For Visit: UTI Diagnosis Discharge Diagnosis (1) Complicated UTI (urinary tract infection): Status: Acute Code(s): N39.0 - Urinary tract infection, site not specified Plan #UTI * complains of bilateral flank pain, though he had no CVA tenderness on examination. * on IV ceftriaxone * he did have ureteric stents inserted 6 weeks ago. * will get a CT abdomen and pelvis without contrast as he keeps complaining of bilateral flank pain * PO tylenol, IV morphine and pO oxycodone prn for pain. * Urine culture from 04/23/2024 grew Enterococcus faecalis. Will switch antibiotics to IV ciprofloxacin based on sensitivities * blood cultures pending * * #History of prostate cancer * Had ureteric stents placed about 6 weeks ago as above. Follows with urology on outpatient basis * On finasteride and tamsulosin #Anemia: * Hemoglobin was 9.6 on admission. * It was 11.1 2 days ago. Hemoglobin today is 8.3. * There may be a component of hemodilution but will monitor closely and do further workup if it drops further. * #HERMES: * Creatinine was 1.822 days ago and was 1.88 yesterday. Is 1.75 today. * Baseline from June 2023 showed creatinine of 1 though in 2020 creatinine was 2.07. * It is therefore unclear if this does CKD or HERMES or HERMES on CKD. * Continue gentle hydration with IV fluids and trend creatinine. * #Thrombocytopenia: * Platelets around 132 forms 168 on admission yesterday. * This may be due to hemodilution as he received IV fluids. * #Paroxysmal A-fib: * Has not of his Eliquis for several weeks since the stents were inserted. He is follow-up with his PCP on outpatient basis to determine when he can resume his Eliquis. * On metoprolol * #Hypothyroidism: On Synthroid #Hypertension: Amlodipine and metoprolol as well as losartan # Hyperlipidemia: On statin DVT prophylaxis: Heparin Medications at Discharge Home Medications atorvastatin 40 mg tablet 40 mg PO QHS cholesterol 07/08/19 losartan 100 mg tablet 100 mg PO QHS bp 07/08/19 valacyclovir 500 mg tablet 500 mg PO DAILY herpes 07/03/20 hydroxyzine HCl 25 mg tablet 25 mg PO QHS anxiety 06/16/23 tamsulosin 0.4 mg capsule 0.4 mg PO BID prostate 06/16/23 amlodipine 10 mg tablet 5 mg (1/2 x 10 mg) PO DAILY blood pressure #1 TAB 06/17/23 metoprolol tartrate 50 mg tablet 50 mg PO BID #60 tabs 06/17/23 finasteride 5 mg tablet 5 mg PO DAILY 09/22/23 levothyroxine 112 mcg tablet (Synthroid) 112 mcg PO DAILY 09/22/23 ondansetron 8 mg disintegrating tablet 8 mg PO Q8H PRN PRN nausea/vomiting 04/15/24 nitrofurantoin macrocrystal 100 mg capsule 100 mg PO BID #14 caps 04/18/24 Hospital Course Operations None Procedures None Summary of Care Provided Minutes Spent on Discharge: 55 Hospital Course: Patient is an 83-year-old male with past medical history as outlined was admitted to the ED on 04/16/2024 with complaint of generalized weakness which had been going on for about a day prior to admission. Of note he had been diagnosed with UTI in the ED on outpatient basis the day before admission. He had a history of prostate cancer and had bilateral ureteral stents placed about 6 weeks ago at [facility]. In the ED, he was found to have WBC of 12.2 and creatinine was 1.88. He was requiring 2 L of oxygen at that time. Urinalysis showed elevated WBC and rare bacteria. Chest x-ray showed no acute cardiopulmonary process. Was admitted and managed for UTI with failed outpatient therapy. Was initially started on IV ceftriaxone. Urine cultures came back growing Enterococcus faecalis so he was switched to IV ciprofloxacin based on sensitivities. 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 Patient felt better and his blood cultures after 48 hours were negative. Patient was therefore discharged home on 04/18/2024 and a 5-day course of oral nitrofurantoin b (more content not included)... [facility] 04-14-2024 Note HNO ID: [id number] Author: RADHA LARSEN MD Service: ? Author Type: Physician Type: Progress Notes Filed: 04/14/2024 14:47 Note Text: [facility] ESTABLISHED PATIENT NOTE PATIENT: Clint Villar (83 year old) PCP: Cody Carrington MD DATE OF SERVICE: 04/14/2024 --- SUMMARY: Mr. Villar is a 83 year old male who is here for follow up Assessment AND Plan Prostate cancer (HCC) Castrate sensitive metastatic prostate cancer On Eligard through oncology Currently XRT PSA 5.5 from 73.59 Recommend he continue with therapy as recommended by oncology Plan PSA in 3 months Orders: BLADDER SCAN PROSTATE-SPECIFIC ANTIGEN DIAGNOSTIC; Future Bilateral hydronephrosis Secondary to #1 Bilateral ureteral stents placed 03/08/[address] scan and bmp in 3 months to evaluate for stent removal or change Orders: BLADDER SCAN CT UROGRAM WO/W IVCON; Future iv contrast (will be provided with radiology test); CT Urogram WO/W Inject, intravenously, once for 1 dose.No IV access, insert saline lock prior to the beginning of sedation, infusion, injection of imaging exam. Discontinue saline lock post exam. If Pt. has a central line or IVAD, may access for administration according to line specific nursing protocol. Once exam is complete flush line and de-access according to line specific nursing protocol in the CT contrast administration guidelines link. 0.9 % sodium chloride (NACL 0.9%) infusion; Inject 5-30 mL/hr intravenously one time only for 1 dose. Administer at rate defined per CT contrast administration specifications. To be provided with radiology test. BASIC METABOLIC PANEL; Future Acute urinary retention Borrego out since this AM. Void here. PVR 93 cc. Okay to leave out Borrego Orders: BLADDER SCAN --- FOLLOW UP: No follow-ups on file. --- CHIEF COMPLAINT: Patient presents with: Prostate Cancer: 3 week follow up HISTORY OF PRESENT ILLNESS: Prior notes were reviewed. The patient reports: Complaint: prostate cancer Location: prostate Duration: months Quality: none Severity: severe Relieving: none Exacerbating: none Course: chronic Associated conditions: bilateral hydronephrosis, urinary retention Diagnostics: none Treatments: Borrego out for VT, stents in place REVIEW OF SYSTEMS: Genitourinary: Denies hematuria, dysuria, frequency, urgency, nocturia, [place], weak stream. Constitutional: unintentional weight loss - denies, fevers - denies Cardiovascular: new or worsening chest pain - denies Respiratory: new or worsening shortness of breath - denies Gastrointestinal: constipation - denies, vomiting - denies Hematologic/Lymphatic: easy bleeding or bruising - denies ALLERGIES: ALLERGIES Allergen Reactions Latex Rash Rash to skin MEDICATIONS: valACYclovir (VALTREX) 500 mg tablet Take 1 tablet by mouth once daily. (Patient taking differently: Take 500 mg by mouth once daily. HERPES, GENITAL) hydrOXYzine HCl (ATARAX) 25 mg tablet Take 1 tablet by mouth daily at bedtime. losartan (COZAAR) 100 mg tablet Take 1 tablet by mouth once daily. atorvastatin (LIPITOR) 40 mg tablet Take 1 tablet by mouth daily at bedtime. levothyroxine (SYNTHROID) 112 mcg tablet Take 1 tablet by mouth once daily. Take on empty stomach. For thyroid (Patient taking differently: Take 112 mcg by mouth daily before breakfast. Take on empty stomach. For thyroid) apixaban (ELIQUIS) 5 mg tab(s) Take 1 tablet by mouth two times a day. (Patient taking differently: Take 5 mg by mouth two times a day. LAST DOSE TONIGHT 03/03/[address] L[facility]EN [facility], BUT HAS NOT SEEN THEM YET, DR CARRINGTON IS FOLLOWING AND AWARE THAT HE STOPPED) metoprolol tartrate, short acting, (LOPRESSOR) 50 mg tablet Take 1 tablet by mouth two times a day. amLODIPine (NORVASC) 5 mg tablet Take 1 tablet by mouth once daily. cyclobenzaprine (FLEXERIL) 10 mg tablet Take 1 tablet by mouth twice daily as needed for muscle spasm. ondansetron orally disintegrating (ZOFRAN ODT) 8 mg disintegrating tablet Take 1 tablet by mouth every 8 hours as needed for nausea/vomiting. bicalutamide (CASODEX) 50 mg tablet Take 1 tablet by mouth once daily. Take for 10 days starting when you get lupron injection (Patient not taking: Reported on 03/17/2024) tamsulosin (FLOMAX) 0.4 mg Take 2 capsules by mouth daily at bedtime. (Patient not taking: Reported on 03/26/2024) PAST HISTORY: PAST MEDICAL HISTORY Diagnosis Date Admitted for observation ADMITTED WITH NEW ONSET AFIB MAY 2023, MED AND SENT (more content not included)... [facility] 04-14-2024 History of Present illness Narrative Images from the original note were not included. [facility] ESTABLISHED PATIENT NOTE PATIENT: Clint Villar (83 year old) PCP: Cody Carrington MD DATE OF SERVICE: 04/14/2024 SUMMARY: Mr. Villar is a 83 year old male who is here for follow up Assessment & Plan Prostate cancer (HCC) Castrate sensitive metastatic prostate cancer On [facility] through oncology Currently XRT PSA 5.5 from 73.59 Recommend he continue with therapy as recommended by oncology Plan PSA in 3 months Orders: BLADDER SCAN PROSTATE-SPECIFIC ANTIGEN DIAGNOSTIC; Future Bilateral hydronephrosis Secondary to #1 Bilateral ureteral stents placed 03/08/[address] scan and bmp in 3 months to evaluate for stent removal or change Orders: BLADDER SCAN CT UROGRAM WO/W IVCON; Future iv contrast (will be provided with radiology test); CT Urogram WO/W Inject, intravenously, once for 1 dose.No IV access, insert saline lock prior to the beginning of sedation, infusion, injection of imaging exam. Discontinue saline lock post exam. If Pt. has a central line or IVAD, may access for administration according to line specific nursing protocol. Once exam is complete flush line and de-access according to line specific nursing protocol in the CT contrast administration guidelines link. 0.9 % sodium chloride (NACL 0.9%) infusion; Inject 5-30 mL/hr intravenously one time only for 1 dose. Administer at rate defined per CT contrast administration specifications. To be provided with radiology test. BASIC METABOLIC PANEL; Future Acute urinary retention Borrego out since this AM. Void here. PVR 93 cc. Okay to leave out Borrego Orders: BLADDER SCAN FOLLOW UP: No follow-ups on file. CHIEF COMPLAINT: Patient presents with: Prostate Cancer: 3 week follow up HISTORY OF PRESENT ILLNESS: Prior notes were reviewed. The patient reports: Complaint: prostate cancer Location: prostate Duration: months Quality: none Severity: severe Relieving: none Exacerbating: none Course: chronic Associated conditions: bilateral hydronephrosis, urinary retention Diagnostics: none Treatments: Borrego out for VT, stents in place REVIEW OF SYSTEMS: Genitourinary: Denies hematuria, dysuria, frequency, urgency, nocturia, [place], weak stream. Constitutional: unintentional weight loss - denies, fevers - denies Cardiovascular: new or worsening chest pain - denies Respiratory: new or worsening shortness of breath - denies Gastrointestinal: constipation - denies, vomiting - denies Hematologic/Lymphatic: easy bleeding or bruising - denies ALLERGIES: ALLERGIES Allergen Reactions Latex Rash Rash to skin MEDICATIONS: valACYclovir (VALTREX) 500 mg tablet Take 1 tablet by mouth once daily. (Patient taking differently: Take 500 mg by mouth once daily. HERPES, GENITAL) hydrOXYzine HCl (ATARAX) 25 mg tablet Take 1 tablet by mouth daily at bedtime. losartan (COZAAR) 100 mg tablet Take 1 tablet by mouth once daily. atorvastatin (LIPITOR) 40 mg tablet Take 1 tablet by mouth daily at bedtime. levothyroxine (SYNTHROID) 112 mcg tablet Take 1 tablet by mouth once daily. Take on empty stomach. For thyroid (Patient taking differently: Take 112 mcg by mouth daily before breakfast. Take on empty stomach. For thyroid) apixaban (ELIQUIS) 5 mg tab(s) Take 1 tablet by mouth two times a day. (Patient taking differently: Take 5 mg by mouth two times a day. LAST DOSE TONIGHT 03/03/[address] LARSEN AND [facility], BUT HAS NOT SEEN THEM YET, DR CARRINGTON IS FOLLOWING AND AWARE THAT HE STOPPED) metoprolol tartrate, short acting, (LOPRESSOR) 50 mg tablet Take 1 tablet by mouth two times a day. amLODIPine (NORVASC) 5 mg tablet Take 1 tablet by mouth once daily. cyclobenzaprine (FLEXERIL) 10 mg tablet Take 1 tablet by mouth twice daily as needed for muscle spasm. ondansetron orally disintegrating (ZOFRAN ODT) 8 mg disintegrating tablet Take 1 tablet by mouth every 8 hours as needed for nausea/vomiting. bicalutamide (CASODEX) 50 mg tablet Take 1 tablet by mouth once daily. Take for 10 days starting when you get lupron injection (Patient not taking: Reported on 03/17/2024) tamsulosin (FLOMAX) 0.4 mg Take 2 capsules by mouth daily at bedtime. 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 HTN (hypertension) 03/08/2014 PRIMARY FOLLOWS Hyperglycemia DIET CONTROLLED PRIMARY FOLLOWS Hyperlipidemia 03/08/2014 Hyperlipidemia, unspecified hyperlipidemia type PRIMARY FOLLOWS Hypotension, unspecified Hypothyroidism 07/21/2014 PRIMARY FOLLOWS Impaired fasting glucose 12/19/2016 DOES NOT REMEMBER Muscle spasm of back 05/23/2015 Obesity, Class I, BMI 30-34.9 01/29/2019 Obesity, Class II, BMI 35-39.9 06/02/2020 Paroxysmal atrial fibrillation (HCC) 06/23/2023 DUE TO SEE [facility] FOR AFIB, PRIMARY FOLLOWS CURRENTLY, DID SEE [facility] ACOSTA X1 APPOINTMENT BUT DID NOT CARE FOR MD SO WILL NOT GO BACK Positive colorectal cancer screening using Cologuard test 01/03/2023 Primary hypertension PRIMARY FOLLOWS Prostate cancer (HCC) 02/13/2024 DR LARSEN [address] DR AGUILAR, AT [facility] IN [place] 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 PAST SURGICAL HISTORY Procedure Laterality Date COLONOSCOPY - DIAGNOSTIC 12/18/2023 OPEN REPAIR OF ROTATOR CUFF ACUTE Right 2005 Rotator cuff repair, right PROSTATE BIOPSY W/TRANSRECTAL US 01/26/2024 TONSILLECTOMY PRIMARY/SECONDARY <AGE 14 1950s Tonsillectomy FAMILY HISTORY Problem Relation Age of Onset other (Other) Mother no contact Coronary Artery Disease Father Heart Failure Father Diabetes Father Cancer Paternal Grandfather Cancer Half-brother Social History Tobacco Use Smoking status: Former Types: Cigarettes Passive exposure: Past Smokeless tobacco: Never Tobacco comments: Pt smoked 1 pack daily x 14 years, quit in 1964 Vaping Use Vaping status: Never Used Substance Use Topics Alcohol use: Not Currently Alcohol/week: 1.0 standard drink of alcohol Types: 1 Cans of beer per week Drug use: Never PHYSICAL EXAMINATION: There were no vitals taken for this visit. Verbal informed consent obtained for exam below: Constitutional: In no acute distress. Respiratory: Normal respiratory effort without use of accessory muscles. Cardiovascular: Regular rate Gastrointestinal: Nondistended DATA: Clinic: URINALYSIS: GLUCOSE UA (POCT) Negative 01/26/2024 BILIRUBIN UA (POCT) Negative 01/26/2024 KETONE UA (POCT) Negative 01/26/2024 SPECIFIC GRAVITY UA (POCT) 1.015 01/26/2024 HEMOGLOBIN/BLOOD UA (POCT) Trace-intact 01/26/2024 PH UA (POCT) 7.5 01/26/2024 PROTEIN UA (POCT) 100 01/26/2024 UROBILINOGEN UA (POCT) 0.2 01/26/2024 NITRITE UA (POCT) Negative 01/26/2024 LEUKOCYTES UA (POCT) Negative 01/26/2024 COLOR UA (POCT) Yellow 01/26/2024 CLARITY UA (POCT) Clear 01/26/2024 Laboratory: Creatinine Date Value Ref Range Status 04/13/2024 1.39 0.50 - 1.40 mg/dL Final Comment: Patients receiving either N-Acetylcysteine (NAC) or Metamizole prior to venipuncture, may have falsely depressed results. 02/28/2024 1.55 (H) 0.50 - 1.40 mg/dL Final Comment: Patients receiving either N-Acetylcysteine (NAC) or Metamizole prior to venipuncture, may have falsely depressed results. 02/26/2024 2.00 (H) 0.73 - 1.22 mg/dL Final 10/22/2023 1.03 0.73 - 1.22 mg/dL Final Cultures: No data to display Susceptibility Tests - Past 1 Year No results found for the last 365 days. PSA: PSA (ng/mL) Date Value 04/13/2024 5.50 10/22/2023 73.59 01/03/2023 71.22 I have reviewed the problem list, family history, and social history documented by my ancillary staff. Radha Larsen MD Staff Urologist Office documented in this encounter [facility] 04-14-2024 Telephone encounter Note Spoke with pt and information listed below given. Pt verbalizes understanding. Danielle Aviles LPN [facility] 04-14-2024 Miscellaneous Notes Spoke with pt and information listed below given. Pt verbalizes understanding. Danielle Aviles LPN No additional labs from me this time. Patient was in for lab work for another provider today and stated that he had called and spoke to someone that told him he could do lab work for today at the same time. There are no order in for lab work from please advise on if patient needs lab work done for him prior to his scheduled appointment on 04/23/24. Please call patient with information at [phone] Clare Esposito Pss documented in this encounter [facility] 04-14-2024 Telephone encounter Note No additional labs from nm this time. [facility] 04-14-2024 Telephone encounter Note Patient was in for lab work for another provider today and stated that he had called and spoke to someone that told him he could do lab work for today at the same time. There are no order in for lab work from please advise on if patient needs lab work done for him prior to his scheduled appointment on 04/23/24. Please call patient with information at [phone] [facility] 04-06-2024 Telephone encounter Note Patient notified, verbalized understanding. Leila Antonio LPN [facility] 04-06-2024 Miscellaneous Notes Patient notified, verbalized understanding. Leila Antonio LPN No additional labs. Do labs ordered by urology. Patient is wanting to know if there is any other labs that he is needing for his upcoming appointment on 04/23/24. Please call patient back if there is more labs needed. Conchita Boykin LPN documented in this encounter [facility] 04-06-2024 Telephone encounter Note No additional labs. Do labs ordered by urology. [facility] 04-05-2024 Telephone encounter Note Patient is wanting to know if there is any other labs that he is needing for his upcoming appointment on 04/23/24. Please call patient back if there is more labs needed. Conchita Boykin LPN [facility] 03-26-2024 Nurse Note Borrego insertion. Patient prepped using sterile technique. 16 F Coude inserted. Balloon inflated with 10cc sterile water. 130 ml's of urine drained out. Leg bag attached. Patient tolerated well. Eve Luque MA [facility] 03-26-2024 Nurse Note Borrego insertion. Patient prepped using sterile technique. 16 F Coude inserted. Balloon inflated with 10cc sterile water. 130 ml's of urine drained out. Leg bag attached. Patient tolerated well. Eve Luque MA documented in this encounter [facility] 03-26-2024 Note HNO ID: [id number] Author: RADHA LARSEN MD Service: ? Author Type: Physician Type: Progress Notes Filed: 03/26/2024 14:06 Note Text: [facility] ESTABLISHED PATIENT NOTE PATIENT: Clint Villar (83 year old) PCP: Cody Carrington MD DATE OF SERVICE: 03/26/2024 --- SUMMARY: Mr. Villar is a 83 year old male who is here for follow up Assessment AND Plan Prostate cancer (HCC) Castrate sensitive metastatic prostate cancer On [facility] through oncology Currently XRT Continue follow up with oncology Update PSA Orders: BLADDER SCAN PROSTATE-SPECIFIC ANTIGEN DIAGNOSTIC; Future Bilateral hydronephrosis Secondary to #1 Bilateral ureteral stents placed 03/08/2024 Plan check KUB and bmp Orders: BASIC METABOLIC PANEL; Future Acute urinary retention Borrego remove this AM Prostate with moderate trilobar enlargement and extremely rigid. Difficult cystoscopy. Has not yet voided (>6 hours); bladder scan 134 cc Patient concerned about ending up in ER Discussed findings. Patient elects to have Borrego re-insert. We'll try another voiding trial in 3 weeks. Orders: BLADDER 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-BORREGO --- FOLLOW UP: Return in about 3 weeks (around 04/16/2024) for CJL with labs. --- CHIEF COMPLAINT: Patient presents with: Hydronephrosis: Bilateral Urinary Retention: Voiding trial - cath pulled by patient at 8:30am. Patient has not voided at all. PVR 134 ml. HISTORY OF PRESENT ILLNESS: Prior notes were reviewed. The patient reports: Complaint: prostate cancer Location: prostate Duration: months Quality: none Severity: severe Relieving: none Exacerbating: none Course: chronic Associated conditions: bilateral hydronephrosis, urinary retention Diagnostics: none Treatments: Borrego in place, stents in place REVIEW OF SYSTEMS: Genitourinary: Unable to void Constitutional: unintentional weight loss - denies, fevers - denies Cardiovascular: new or worsening chest pain - denies Respiratory: new or worsening shortness of breath - denies Gastrointestinal: constipation - denies, vomiting - denies Hematologic/Lymphatic: easy bleeding or bruising - denies ALLERGIES: ALLERGIES Allergen Reactions Latex Rash Rash to skin MEDICATIONS: ondansetron orally disintegrating (ZOFRAN ODT) 8 mg disintegrating tablet Take 1 tablet by mouth every 8 hours as needed for nausea/vomiting. valACYclovir (VALTREX) 500 mg tablet Take 1 tablet by mouth once daily. (Patient taking differently: Take 500 mg by mouth once daily. HERPES, GENITAL) hydrOXYzine HCl (ATARAX) 25 mg tablet Take 1 tablet by mouth daily at bedtime. losartan (COZAAR) 100 mg tablet Take 1 tablet by mouth once daily. atorvastatin (LIPITOR) 40 mg tablet Take 1 tablet by mouth daily at bedtime. levothyroxine (SYNTHROID) 112 mcg tablet Take 1 tablet by mouth once daily. Take on empty stomach. For thyroid (Patient taking differently: Take 112 mcg by mouth daily before breakfast. Take on empty stomach. For thyroid) apixaban (ELIQUIS) 5 mg tab(s) Take 1 tablet by mouth two times a day. (Patient taking differently: Take 5 mg by mouth two times a day. LAST DOSE TONIGHT 03/03/[address] L[facility], BUT HAS NOT SEEN THEM YET, DR CARRINGTON IS FOLLOWING AND AWARE THAT HE STOPPED) metoprolol tartrate, short acting, (LOPRESSOR) 50 mg tablet Take 1 tablet by mouth two times a day. amLODIPine (NORVASC) 5 mg tablet Take 1 tablet by mouth once daily. cyclobenzaprine (FLEXERIL) 10 mg tablet Take 1 tablet by mouth twice daily as needed for muscle spasm. bicalutamide (CASODEX) 50 mg tablet Take 1 tablet by mouth once daily. Take for 10 days starting when you get lupron injection (Patient not taking: Reported on 03/17/2024) tamsulosin (FLOMAX) 0.4 mg Take 2 capsules by mouth daily at bedtime. 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 [facility] 03-26-2024 History of Present illness Narrative Images from the original note were not included. [facility] ESTABLISHED PATIENT NOTE PATIENT: Clint Villar (83 year old) PCP: Cody Carrington MD DATE OF SERVICE: 03/26/2024 SUMMARY: Mr. Villar is a 83 year old male who is here for follow up Assessment & Plan Prostate cancer (HCC) Castrate sensitive metastatic prostate cancer On Eligard through oncology Currently XRT Continue follow up with oncology Update PSA Orders: BLADDER SCAN PROSTATE-SPECIFIC ANTIGEN DIAGNOSTIC; Future Bilateral hydronephrosis Secondary to #1 Bilateral ureteral stents placed 03/08/2024 Plan check KUB and bmp Orders: BASIC METABOLIC PANEL; Future Acute urinary retention Borrego remove this AM Prostate with moderate trilobar enlargement and extremely rigid. Difficult cystoscopy. Has not yet voided (>6 hours); bladder scan 134 cc Patient concerned about ending up in ER Discussed findings. Patient elects to have Borrego re-insert. We'll try another voiding trial in 3 weeks. Orders: BLADDER 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-BORREGO FOLLOW UP: Return in about 3 weeks (around 04/16/2024) for CJL with labs. CHIEF COMPLAINT: Patient presents with: Hydronephrosis: Bilateral Urinary Retention: Voiding trial - cath pulled by patient at 8:30am. Patient has not voided at all. PVR 134 ml. HISTORY OF PRESENT ILLNESS: Prior notes were reviewed. The patient reports: Complaint: prostate cancer Location: prostate Duration: months Quality: none Severity: severe Relieving: none Exacerbating: none Course: chronic Associated conditions: bilateral hydronephrosis, urinary retention Diagnostics: none Treatments: Borrego in place, stents in place REVIEW OF SYSTEMS: Genitourinary: Unable to void Constitutional: unintentional weight loss - denies, fevers - denies Cardiovascular: new or worsening chest pain - denies Respiratory: new or worsening shortness of breath - denies Gastrointestinal: constipation - denies, vomiting - denies Hematologic/Lymphatic: easy bleeding or bruising - denies ALLERGIES: ALLERGIES Allergen Reactions Latex Rash Rash to skin MEDICATIONS: ondansetron orally disintegrating (ZOFRAN ODT) 8 mg disintegrating tablet Take 1 tablet by mouth every 8 hours as needed for nausea/vomiting. valACYclovir (VALTREX) 500 mg tablet Take 1 tablet by mouth once daily. (Patient taking differently: Take 500 mg by mouth once daily. HERPES, GENITAL) hydrOXYzine HCl (ATARAX) 25 mg tablet Take 1 tablet by mouth daily at bedtime. losartan (COZAAR) 100 mg tablet Take 1 tablet by mouth once daily. atorvastatin (LIPITOR) 40 mg tablet Take 1 tablet by mouth daily at bedtime. levothyroxine (SYNTHROID) 112 mcg tablet Take 1 tablet by mouth once daily. Take on empty stomach. For thyroid (Patient taking differently: Take 112 mcg by mouth daily before breakfast. Take on empty stomach. For thyroid) apixaban (ELIQUIS) 5 mg tab(s) Take 1 tablet by mouth two times a day. (Patient taking differently: Take 5 mg by mouth two times a day. LAST DOSE TONIGHT 03/03/[address] LARSEN [facility], BUT HAS NOT SEEN THEM YET, DR CARRINGTON IS FOLLOWING AND AWARE THAT HE STOPPED) metoprolol tartrate, short acting, (LOPRESSOR) 50 mg tablet Take 1 tablet by mouth two times a day. amLODIPine (NORVASC) 5 mg tablet Take 1 tablet by mouth once daily. cyclobenzaprine (FLEXERIL) 10 mg tablet Take 1 tablet by mouth twice daily as needed for muscle spasm. bicalutamide (CASODEX) 50 mg tablet Take 1 tablet by mouth once daily. Take for 10 days starting when you get lupron injection (Patient not taking: Reported on 03/17/2024) tamsulosin (FLOMAX) 0.4 mg Take 2 capsules by mouth daily at bedtime. 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 HTN (hypertension) 03/08/2014 PRIMARY FOLLOWS Hyperglycemia DIET CONTROLLED PRIMARY FOLLOWS Hyperlipidemia 03/08/2014 Hyperlipidemia, unspecified hyperlipidemia type PRIMARY FOLLOWS Hypotension, unspecified Hypothyroidism 07/21/2014 PRIMARY FOLLOWS Impaired fasting glucose 12/19/2016 DOES NOT REMEMBER Muscle spasm of back 05/23/2015 Obesity, Class I, BMI 30-34.9 01/29/2019 Obesity, Class II, BMI 35-39.9 06/02/2020 Paroxysmal atrial fibrillation (HCC) 06/23/2023 DUE TO SEE [facility] FOR AFIB, PRIMARY FOLLOWS CURRENTLY, DID SEE CHRIS ACOSTA X1 APPOINTMENT BUT DID NOT CARE FOR MD SO WILL NOT GO BACK Positive colorectal cancer screening using Cologuard test 01/03/2023 Primary hypertension PRIMARY FOLLOWS Prostate cancer (HCC) 02/13/2024 DR LARSEN AND DR AGUILAR, AT [facility] IN [place] 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 PAST SURGICAL HISTORY Procedure Laterality Date COLONOSCOPY - DIAGNOSTIC 12/18/2023 OPEN REPAIR OF ROTATOR CUFF ACUTE Right 2005 Rotator cuff repair, right PROSTATE BIOPSY W/TRANSRECTAL US 01/26/2024 TONSILLECTOMY PRIMARY/SECONDARY <AGE 14 1950s Tonsillectomy FAMILY HISTORY Problem Relation Age of Onset other (Other) Mother no contact Coronary Artery Disease Father Heart Failure Father Diabetes Father Cancer Paternal Grandfather Cancer Half-brother Social History Tobacco Use Smoking status: Former Types: Cigarettes Passive exposure: Past Smokeless tobacco: Never Tobacco comments: Pt smoked 1 pack daily x 14 years, quit in 1965 Vaping Use Vaping status: Never Used Substance Use Topics Alcohol use: Not Currently Alcohol/week: 1.0 standard drink of alcohol Types: 1 Cans of beer per week Drug use: Never PHYSICAL EXAMINATION: There were no vitals taken for this visit. Verbal informed consent obtained for exam below: Genitourinary: No Borrego Constitutional: In no acute distress. Respiratory: Normal respiratory effort without use of accessory muscles. Cardiovascular: Regular rate Gastrointestinal: Nondistended DATA: Clinic: URINALYSIS: GLUCOSE UA (POCT) Negative 01/26/2024 BILIRUBIN UA (POCT) Negative 01/26/2024 KETONE UA (POCT) Negative 01/26/2024 SPECIFIC GRAVITY UA (POCT) 1.015 01/26/2024 HEMOGLOBIN/BLOOD UA (POCT) Trace-intact 01/26/2024 PH UA (POCT) 7.5 01/26/2024 PROTEIN UA (POCT) 100 01/26/2024 UROBILINOGEN UA (POCT) 0.2 01/26/2024 NITRITE UA (POCT) Negative 01/26/2024 LEUKOCYTES UA (POCT) Negative 01/26/2024 COLOR UA (POCT) Yellow 01/26/2024 CLARITY UA (POCT) Clear 01/26/2024 Laboratory: Creatinine Date Value Ref Range Status 02/28/2024 1.55 (H) 0.50 - 1.40 mg/dL Final Comment: Patients receiving either N-Acetylcysteine (NAC) or Metamizole prior to venipuncture, may have falsely depressed results. 02/26/2024 2.00 (H) 0.73 - 1.22 mg/dL Final 10/22/2023 1.03 0.73 - 1.22 mg/dL Final 07/18/2023 1.04 0.73 - 1.22 mg/dL Final Cultures: No data to display Susceptibility Tests - Past 1 Year No results found for the last 365 days. PSA: PSA (ng/mL) Date Value 10/22/2023 73.59 01/03/2023 71.22 I have reviewed the problem list, family history, and social history documented by my ancillary staff. Radha Larsen MD Staff Urologist Office documented in this encounter [facility] 03-23-2024 Note HNO ID: [id number] Author: LISE DILLON, RN Service: ? Author Type: Registered Nurse Type: Progress Notes Filed: 03/23/2024 15:15 Note Text: Written discharge instructions given and reviewed with patient. Patient verbalizes understanding. Encouraged to call with any questions or concerns. Instruction for 4 week phone call follow up appointment given by Dr. Aguilar. [facility] 03-23-2024 History of Present illness Narrative Written discharge instructions given and reviewed with patient. Patient verbalizes understanding. Encouraged to call with any questions or concerns. Instruction for 4 week phone call follow up appointment given by Dr. Aguilar. documented in this encounter 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 DELIVERED DOSE: 3000 cGy in 10 fractions treating to the 97.4% isodose line with 10MV and 2 vmat winn ELAPSED TIME: 14 days. TOLERANCE/ RESPONSE: He had nausea/vomiting improved with Zofran. He had dizziness and he will talk to his PCP. REMARKS: He tolerated radiation treatment well overall. Four week follow-up with me. Staff Physician {Object.Sanct_ID*PnP.NameFL}Kimberlyn / {Object.Sanct_Date}{Object.Sanct_Ti me} Electronically Signed cc: Cody Carrington [address] [place] [address] Johan Payne [id number] [id number] documented in this encounter 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 - valACYclovir (VALTREX) 500 mg tablet Take 1 tablet by mouth once daily. - bicalutamide (CASODEX) 50 mg tablet Take 1 tablet by mouth once daily. Take for 10 days starting when you get lupron injection - hydrOXYzine HCl (ATARAX) 25 mg tablet Take 1 tablet by mouth daily at bedtime. - losartan (COZAAR) 100 mg tablet Take 1 tablet by mouth once daily. - atorvastatin (LIPITOR) 40 mg tablet Take 1 tablet by mouth daily at bedtime. - tamsulosin (FLOMAX) 0.4 mg Take 2 capsules by mouth daily at bedtime. - levothyroxine (SYNTHROID) 112 mcg tablet Take 1 tablet by mouth once daily. Take on empty stomach. For thyroid - apixaban (ELIQUIS) 5 mg tab(s) Take 1 tablet by mouth two times a day. - metoprolol tartrate, short acting, (LOPRESSOR) 50 mg tablet Take 1 tablet by mouth two times a day. - amLODIPine (NORVASC) 5 mg tablet Take 1 tablet by mouth once daily. - cyclobenzaprine (FLEXERIL) 10 mg tablet Take 1 tablet by mouth twice daily as needed for muscle spasm. 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 DELIVERED DOSE: 3000 cGy in 10 fractions treating to the 97.4% isodose line with 10MV and 2 vmat winn ELAPSED TIME: 14 days. TOLERANCE/ RESPONSE: He had nausea/vomiting improved with Zofran. He had dizziness and he will talk to his PCP. REMARKS: He tolerated radiation treatment well overall. Four week follow-up with me. Staff Physician {Object.Sanct_ID*PnP.NarcisaFLKimberlyn Ansari / {Object.Sanct_Date}{Object.Sanct_Ti nm} Electronically Signed cc: Cody Carrington [address] [place] [address] Johan Payne [id number] [id number] [facility] 03-22-2024 Nurse Note Radiation therapist notified this nurse that pt. Had c/o feeling dizzy. Upon assessment pt states he's been having dizziness for approximately 5 days intermittent. Per pt. It's so bad in the morning at times that I went down to 1 knee and had a very hard time getting up. Pt. Also express he's very fatigued and unsteady. Pt. States he is drinking fluids throughout the day and his urine is light yellow. He does express having nausea daily and utilizing prn Zofran as needed but still remains dizzy after nausea has went away. VS T- 97.2 F R- 18 BP 112/64 P- 55 SPO2- 96% RA. Dr. Aguilar notified. Dr. Aguilar saw pt in exam room and directed pt. To increase Prilosec to 2 tabs daily and to follow up with PCP. Pt. Verbalized understanding. [facility] 03-22-2024 Nurse Note Radiation therapist notified this nurse that pt. Had c/o feeling dizzy. Upon assessment pt states he's been having dizziness for approximately 5 days intermittent. Per pt. It's so bad in the morning at times that I went down to 1 knee and had a very hard time getting up. Pt. Also express he's very fatigued and unsteady. Pt. States he is drinking fluids throughout the day and his urine is light yellow. He does express having nausea daily and utilizing prn Zofran as needed but still remains dizzy after nausea has went away. VS T- 97.2 F R- 18 BP 112/64 P- 55 SPO2- 96% RA. Dr. Aguilar notified. Dr. Aguilar saw pt in exam room and directed pt. To increase Prilosec to 2 tabs daily and to follow up with PCP. Pt. Verbalized understanding. documented in this encounter [facility] 03-17-2024 Nurse Note Radiation Therapy - Nursing Note (OTV) PATIENT NAME: Clint Villar PATIENT March 17, 2024 [facility] FACILITY/LOCATION: [place] NURSING NOTE TYPE: retroperitoneal node Subjective Data Pt reports some nausea Additional Data Do you want to see a Substance Abuse Counselor? No Status: Patient is male Stress Scale: On a scale of 0 to 10, what number best describes how much distress you have experienced in the past week?(0 being no distress and 10 being extreme distress) 6 Social work notified: Pt denied need to see addiction social worker at this time. Nursing Assessment Fatigue: moderate; causing difficulty performing some activities Appetite: fair Nutritional Intake: Regular oral intake. Weight Gain/Loss: Yes Ambulatory weight history: Last 6 Encounter Wt Readings: Date: Wt: 03/01/2024 91 kg (200 lb 9.9 oz) 03/01/2024 90.3 kg (199 lb) 02/28/2024 89.4 kg (197 lb) 02/27/2024 90.5 kg (199 lb 8 oz) 02/26/2024 89.4 kg (197 lb 1.5 oz) 02/13/2024 91.6 kg (202 lb) Nausea:Nausea does not interfere with the ability to eat Vomitin episode in 24 hours Bowel Function: constipation 2 - bowel movement every 4 - 5 days Erythema/Hyperpigmentation:mild Desquamation:none Rash:none Skin Care: Aquaphor Skin Sensation: mild itching Focused Assessment Retroperitonal node-no other complaints SIGNED by: Anni Mcnair RN [facility] 03-17-2024 Nurse Note Radiation Therapy - Nursing Note (OTV) PATIENT NAME: Clint Villar PATIENT March 17, 2024 [facility] FACILITY/LOCATION: [place] NURSING NOTE TYPE: retroperitoneal node Subjective Data Pt reports some nausea Additional Data Do you want to see a Substance Abuse Counselor? No Status: Patient is male Stress Scale: On a scale of 0 to 10, what number best describes how much distress you have experienced in the past week?(0 being no distress and 10 being extreme distress) 6 Social work notified: Pt denied need to see addiction social worker at this time. Nursing Assessment Fatigue: moderate; causing difficulty performing some activities Appetite: fair Nutritional Intake: Regular oral intake. Weight Gain/Loss: Yes Ambulatory weight history: Last 6 Encounter Wt Readings: Date: Wt: 03/01/2024 91 kg (200 lb 9.9 oz) 03/01/2024 90.3 kg (199 lb) 02/28/2024 89.4 kg (197 lb) 02/27/2024 90.5 kg (199 lb 8 oz) 02/26/2024 89.4 kg (197 lb 1.5 oz) 02/13/2024 91.6 kg (202 lb) Nausea:Nausea does not interfere with the ability to eat Vomitin episode in 24 hours Bowel Function: constipation 2 - bowel movement every 4 - 5 days Erythema/Hyperpigmentation:mild Desquamation:none Rash:none Skin Care: Aquaphor Skin Sensation: mild itching Focused Assessment Retroperitonal node-no other complaints SIGNED by: Anni Mcnair RN documented in this encounter [facility] 03-17-2024 Note HNO ID: [id number] Author: RODOLFO AGUILAR MD Service: ? 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 COURSE: palliative AREA TREATED: Retroperitoneal nodes CURRENT DOSE: 1800 cGy in 6 fx PLANNED DOSE: 3000 cGy in 10 fx SUBJECTIVE: He has nausea/vomiting. EXAM: KPS: 90 General Appearance: Alert and oriented. No acute distress. IMAGING/LAB RESULTS: None Treatment chart checked: Yes Patient treatment site reviewed and verified:Yes CBCTs reviewed and current:Yes Medications started: Zofran as needed. ASSESSMENT/PLAN: Clinically stable. Toxicity within expected parameters. Continue radiation treatment as planned. 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 COURSE: palliative AREA TREATED: Retroperitoneal nodes CURRENT DOSE: 1800 cGy in 6 fx PLANNED DOSE: 3000 cGy in 10 fx SUBJECTIVE: He has nausea/vomiting. EXAM: KPS: 90 General Appearance: Alert and oriented. No acute distress. IMAGING/LAB RESULTS: None Treatment chart checked: Yes Patient treatment site reviewed and verified:Yes CBCTs reviewed and current:Yes Medications started: Zofran as needed. ASSESSMENT/PLAN: Clinically stable. Toxicity within expected parameters. Continue radiation treatment as planned. Rodolfo Aguilar MD documented in this encounter [facility] 03-15-2024 Nurse Note Called patient and notified per [employer] Taryn ok for patient to pull own catheter (taught how to do this by this RN) in the morning of 03/26 and then to see Dr Larsen afternoon of 03/[address] [facility] 03-15-2024 Nurse Note Called patient and notified per [employer]ER Piccari ok for patient to pull own catheter (taught how to do this by this RN) in the morning of 03/26 and then to see Dr Larsen afternoon of 03/26 Italo Matthew RN Patient here for voiding trial. Voided x8 at home and x2 in office. Pvr is 501 ml. New 16 omani silicone coude catheter inserted using sterile technique. 10 cc sterile water inflated into balloon. Good urine flow noted. New leg bag attached. Patient tolerated procedure well. Elementary Substitute Teacher declined. Italo Matthew RN documented in this encounter [facility] 03-15-2024 Nurse Note Patient here for voiding trial. Voided x8 at home and x2 in office. Pvr is 501 ml. New 16 omani silicone coude catheter inserted using sterile technique. 10 cc sterile water inflated into balloon. Good urine flow noted. New leg bag attached. Patient tolerated procedure well. Elementary Substitute Teacher declined. Italo Matthew RN [facility] 03-15-2024 Telephone encounter Note Voiding trial pended Pvr > 250 ml = borrego reinsertion Thanks Italo Matthew RN [facility] 03-15-2024 Miscellaneous Notes Voiding trial pended Pvr > 250 ml = borrego reinsertion Thanks Italo Matthew RN documented in this encounter [facility] 03-15-2024 Note HNO ID: [id number] Author: AMA HARDIN RN Service: ? Author Type: Registered Nurse Type: Progress Notes Filed: 03/15/2024 08:08 Note Text: Patient is in today for a catheter removal and later PVR. Balloon deflated and catheter removed intact without difficulty. Patient has no co pain or discomfort after removal. Patient instructed to continue drink plenty of fluids, bleeding and or burning can occur but should resolve over the next day. Patient is to RTO as scheduled for a PVR if able to urinate. If patient is unable to urinate, patient is to RTO before becoming too uncomfortable. Patient voiced understanding of all instructions. Elementary Substitute Teacher offered:Patient declines Ama Hardin RN [facility] 03-15-2024 History of Present illness Narrative Patient is in today for a catheter removal and later PVR. Balloon deflated and catheter removed intact without difficulty. Patient has no c\o pain or discomfort after removal. Patient instructed to continue drink plenty of fluids, bleeding and or burning can occur but should resolve over the next day. Patient is to RTO as scheduled for a PVR if able to urinate. If patient is unable to urinate, patient is to RTO before becoming too uncomfortable. Patient voiced understanding of all instructions. Elementary Substitute Teacher offered:Patient declines Ama Hardin RN documented in this encounter [facility] 03-10-2024 Telephone encounter Note Received VM from patient following up on a VT. He had a Borrego placed after surgery on Friday with Dr. Larsen. Spoke with Dr. Larsen and he wants a VT. Replace Obrrego with PVR greater than 500. Patient is still having blood in his urine. Will schedule patient on 03/15 for a VT. Patient was notified and voiced understanding. Krys Hauser RN [facility] 03-10-2024 Miscellaneous Notes Received VM from patient following up on a VT. He had a Borrego placed after surgery on Friday with Dr. Larsen. Spoke with Dr. Larsen and he wants a VT. Replace Borrego with PVR greater than 500. Patient is still having blood in his urine. Will schedule patient on 03/15 for a VT. Patient was notified and voiced understanding. Krys Hauser RN documented in this encounter [facility] 03-09-2024 Note HNO ID: [id number] Author: RODOLFO AGUILAR MD Service: ? 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 COURSE: palliative AREA TREATED: Retroperitoneal nodes CURRENT DOSE: 300 cGy in 1 fx PLANNED DOSE: 3000 cGy in 10 fx SUBJECTIVE: He is doing well without any specific new complaints related to radiation treatment. EXAM: KPS: 90 General Appearance: Alert and oriented. No acute distress. IMAGING/LAB RESULTS: None Treatment chart checked: Yes Patient treatment site reviewed and verified:Yes CBCTs reviewed and current:Yes Medications started: None ASSESSMENT/PLAN: Clinically stable. No signs of toxicity. Continue radiation treatment as planned. 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 COURSE: palliative AREA TREATED: Retroperitoneal nodes CURRENT DOSE: 300 cGy in 1 fx PLANNED DOSE: 3000 cGy in 10 fx SUBJECTIVE: He is doing well without any specific new complaints related to radiation treatment. EXAM: KPS: 90 General Appearance: Alert and oriented. No acute distress. IMAGING/LAB RESULTS: None Treatment chart checked: Yes Patient treatment site reviewed and verified:Yes CBCTs reviewed and current:Yes Medications started: None ASSESSMENT/PLAN: Clinically stable. No signs of toxicity. Continue radiation treatment as planned. Rodolfo Aguilar MD documented in this encounter [facility] 03-09-2024 Nurse Note Radiation Therapy - Nursing Note (OTV) PATIENT NAME: Clint Villar PATIENT March 09, 2024 [facility] FACILITY/LOCATION: [facility] NOTE TYPE: GENERAL Subjective Data no complaints concerning radiation, had bilateral ureteral stent put in yesterday and now has a borrego cath in for a few day was unable to void post proceedure Additional Data Do you want to see a Substance Abuse Counselor? No Status: Patient is male Stress Scale: On a scale of 0 to 10, what number best describes how much distress you have experienced in the past week?(0 being no distress and 10 being extreme distress) 2 Social work notified: Pt denied need to see addiction social worker at this time. Nursing Assessment Fatigue: none Appetite: good but no so good since yesterdays proceedure Nutritional Intake: Regular oral intake. Weight Gain/Loss: Not applicable Ambulatory weight history: Last 6 Encounter Wt Readings: Date: Wt: 03/01/2024 91 kg (200 lb 9.9 oz) 03/01/2024 90.3 kg (199 lb) 02/28/2024 89.4 kg (197 lb) 02/27/2024 90.5 kg (199 lb 8 oz) 02/26/2024 89.4 kg (197 lb 1.5 oz) 02/13/2024 91.6 kg (202 lb) Nausea:None Vomiting: None Bowel Function: normal bowel movements Erythema/Hyperpigmentation:none Desquamation:none Rash:none Skin Care: Aquaphor Skin Sensation: Within Normal Limits Focused Assessment ABDOMEN: Rectal bleeding: No. Rectal pain: No. Urinary frequency (D/N): borrego/borrego. Dysuria: No. SIGNED by: Lise Dillon RN [facility] 03-09-2024 Nurse Note Radiation Therapy - Nursing Note (OTV) PATIENT NAME: Clint Villar PATIENT March 09, 2024 [facility] FACILITY/LOCATION: [place] NURSING NOTE TYPE: GENERAL Subjective Data no complaints concerning radiation, had bilateral ureteral stent put in yesterday and now has a borrego cath in for a few day was unable to void post proceedure Additional Data Do you want to see a Substance Abuse Counselor? No Status: Patient is male Stress Scale: On a scale of 0 to 10, what number best describes how much distress you have experienced in the past week?(0 being no distress and 10 being extreme distress) 2 Social work notified: Pt denied need to see addiction social worker at this time. Nursing Assessment Fatigue: none Appetite: good but no so good since yesterdays proceedure Nutritional Intake: Regular oral intake. Weight Gain/Loss: Not applicable Ambulatory weight history: Last 6 Encounter Wt Readings: Date: Wt: 03/01/2024 91 kg (200 lb 9.9 oz) 03/01/2024 90.3 kg (199 lb) 02/28/2024 89.4 kg (197 lb) 02/27/2024 90.5 kg (199 lb 8 oz) 02/26/2024 89.4 kg (197 lb 1.5 oz) 02/13/2024 91.6 kg (202 lb) Nausea:None Vomiting: None Bowel Function: normal bowel movements Erythema/Hyperpigmentation:none Desquamation:none Rash:none Skin Care: Aquaphor Skin Sensation: Within Normal Limits Focused Assessment ABDOMEN: Rectal bleeding: No. Rectal pain: No. Urinary frequency (D/N): borrego/borrego. Dysuria: No. SIGNED by: Lise Dillon RN documented in this encounter [facility] 03-08-2024 Note HNO ID: [id number] Author: SABRINA MENDOZA RN Service: Nursing Author Type: Registered Nurse Type: Nursing Progress Note Filed: 03/08/2024 13:20 Note Text: Message sent to Dr Larsen at this time regarding the above. [facility] 03-08-2024 Note HNO ID: [id number] Author: SABRINA MENDOZA, RN Service: Nursing Author Type: Registered Nurse Type: Nursing Progress Note Filed: 03/08/2024 13:18 Note Text: Patient attempted to urinate several times with no success, bladdar scanned for >523cc. [facility] 03-08-2024 Telephone encounter Note Patient scheduled, will notify upon discharge. [facility] 03-08-2024 Miscellaneous Notes Patient scheduled, will notify upon discharge. Surgery today Follow up with CJL 3 weeks with KUB, psa, and bmp documented in this encounter [facility] 03-08-2024 Telephone encounter Note Surgery today Follow up with CJL 3 weeks with KUB, psa, and bmp [facility] 03-08-2024 Note HNO ID: [id number] Author: RADHA JUNIOR AA Service: ? Author Type: Homebound Teacher Type: Anesthesia Procedure Notes Filed: 03/08/2024 08:53 Note Text: ANESTHESIOLOGY PROCEDURE NOTE Airway General Information Procedure Start Time/Medication Administration: 03/08/2024 8:51 AM Procedure End Time: 03/08/2024 8:51 AM Patient location during procedure: OR Timeout Performed Pre-procedure: timeout performed Consent Obtained: Yes Patient identity confirmed: arm band Staffing Anesthesiologist: Shelton Rivero DO CAA: Radha Junior AA Performed by: CARLEY student Indications and Patient Condition Indications for airway management: anesthesia Preoxygenated: yes anesthesia circuit Patient position: sniffing Method: asleep Cricoid Pressure: No Manual In-Line Stabilization: No Difficult Mask: No Final Airway Details Final airway type: supraglottic airway Number of attempts at approach: 2 Ventilation between attempts: BVM Final Supraglottic Airway: i-gel Size 4 Seal Adequate: yes Failed airway: no Unrecognized esophageal intubation: no Airway not difficult Comments First attempt I gel 5 - unable to pass oropharynx, easy successful placement I gel 4 SIGNATURE: SIRIA Narvaez PATIENT NAME: Clint Villar DATE: March 08, 2024 TIME: 8:51 AM CSN: [id number] [facility] 03-05-2024 Note HNO ID: [id number] Author: JOSE NIETO RN Service: ? Author Type: Registered Nurse Type: Progress Notes Filed: 03/05/2024 14:59 Note Text: MEDICATION INSTRUCTIONS PRIOR TO SURGERY Please read below carefully for your personalized instructions. Medications: If you are on blood thinner or anticoagulants including aspirin, please confirm with your surgical team on when to stop these medications. Unless instructed differently by your surgical team, stay on all of your medications until your surgery. Pre-Surgery Med Instructions Medication Instructions valACYclovir (VALTREX) 500 mg tablet DO NOT TAKE MORNING OF SURGERY bicalutamide (CASODEX) 50 mg tablet hydrOXYzine HCl (ATARAX) 25 mg tablet losartan (COZAAR) 100 mg tablet DO NOT TAKE MORNING OF SURGERY atorvastatin (LIPITOR) 40 mg tablet tamsulosin (FLOMAX) 0.4 mg levothyroxine (SYNTHROID) 112 mcg tablet Take morning of surgery with a sip of water, no other fluids finasteride (PROSCAR) 5 mg tablet Take morning of surgery with a sip of water, no other fluids apixaban (ELIQUIS) 5 mg tab(s) Follow Prescribers Instructions metoprolol tartrate, short acting, (LOPRESSOR) 50 mg tablet Take morning of surgery with a sip of water, no other fluids amLODIPine (NORVASC) 5 mg tablet Take morning of surgery with a sip of water, no other fluids cyclobenzaprine (FLEXERIL) 10 mg tablet PRN if needed If you have any medication changes between receiving these instructions and your surgery date, please provide this updated information with the nurse who calls you the week day prior to your surgical procedure so we can update your list and provide you with updated instructions for the morning of your procedure. PRE-PROCEDURE INSTRUCTIONS TO PREPARE FOR YOUR PROCEDURE: Your arrival time for your procedure is 0745. Do NOT eat any solid foods after MIDNIGHT the night prior to your procedure - this includes gum or mints. You can drink clear liquids* up until 0545 , which is 2 hours before your arrival time. *Clear liquids = water, carbohydrate drink (sports drink that is clear or yellow in color), Ensure Pre-Surgery (given by RICKY or your DrKelly), fruit juice without pulp (apple/cranberry), clear tea, black coffee (no cream). NO CARBONATED BEVERAGES AND NO ALCOHOL. Shower the morning of the procedure, put on clean clothes, and have clean sheets for your bed to help prevent infection after your procedure. Leave all valuables such as jewelry including rings, piercings, wallets, and purses at home. Wear comfortable, loose-fitting clothing. If you wear glasses or contacts, please bring a case. SPECIAL INSTRUCTIONS: If instructed, bring your first voided urine specimen with you. If you were provided skin preparation to use prior to your procedure, complete this as directed.. This should be consumed quickly (in less than 5 minutes, rather than sipped over time) If a bowel preparation has been ordered by your physician, it is very important to follow the bowel prep instructions or your procedure may need to be rescheduled. If you use crutches or a walker, bring them with you. If you have a home CPAP/BIPAP machine, bring it with you. If you were instructed to complete a fleets enema or bowel prep, complete as directed. Bring copy of Living Will/Power of Carpentry Teacher. Do not smoke or chew. If you use tobacco, quit or at least cut down before surgery. Do not smoke or chew after midnight the day before your surgery. This effects bleeding, infection, healing, and so much more. Do not take any Diet or Herbal Supplements 2 weeks prior to your surgery date. Please notify your physician if there is any change in your physical condition such as a cold, cough, fever, sore throat, or skin irritation near the surgical site. Visitors under the age of 14 are restricted in the Surgery Center. UPON ARRIVAL: Access to [facility] (the [facility]) is located on [address] [place] [address]. [employer] parking is available for your convenience from 5am-5pm- there is a $5.00 charge for this service. Take the elevators directly inside the entrance to the 1st Floor Surgery Lobby. Sign in at the podium located to the left when you get off the elevators. A payment may be expected at the time of service. One visitor may come back to the preoperative area with you. The preoperative staff will be reviewing your medical history, please let them know if you prefer not to have a visitor with you during this time. Once you are ready for your procedure, two visitors at a time are permitted in your preprocedure room. [facility] 03-05-2024 Note HNO ID: [id number] Author: ALEJANDRO WHITE APRN.CNP Service: ? Author Type: Nurse Practitioner Type: Progress Notes Filed: 03/05/2024 10:44 Note Text: Summary: dos meds MEDICATION INSTRUCTIONS PRIOR TO SURGERY Please read below carefully for your personalized instructions. Medications: If you are on blood thinner or anticoagulants including aspirin, please confirm with your surgical team on when to stop these medications. Unless instructed differently by your surgical team, stay on all of your medications until your surgery. Pre-Surgery Med Instructions Medication Instructions valACYclovir (VALTREX) 500 mg tablet DO NOT TAKE MORNING OF SURGERY bicalutamide (CASODEX) 50 mg tablet hydrOXYzine HCl (ATARAX) 25 mg tablet losartan (COZAAR) 100 mg tablet DO NOT TAKE MORNING OF SURGERY atorvastatin (LIPITOR) 40 mg tablet tamsulosin (FLOMAX) 0.4 mg levothyroxine (SYNTHROID) 112 mcg tablet Take morning of surgery with a sip of water, no other fluids finasteride (PROSCAR) 5 mg tablet Take morning of surgery with a sip of water, no other fluids apixaban (ELIQUIS) 5 mg tab(s) Follow Prescribers Instructions metoprolol tartrate, short acting, (LOPRESSOR) 50 mg tablet Take morning of surgery with a sip of water, no other fluids amLODIPine (NORVASC) 5 mg tablet Take morning of surgery with a sip of water, no other fluids cyclobenzaprine (FLEXERIL) 10 mg tablet PRN if needed If you have any medication changes between receiving these instructions and your surgery date, please provide this updated information with the nurse who calls you the week day prior to your surgical procedure so we can update your list and provide you with updated instructions for the morning of your procedure. [facility] 03-02-2024 History of Present illness Narrative Radiation Therapy - Patient Education Note PATIENT NAME: Clint Villar PATIENT March 02, 2024 [facility] FACILITY/LOCATION: [place] READINESS TO LEARN Cognitive Ability: Alert and oriented Motivation to learn: Eager Family Support: Unable to assess - Family not present Instruction provide to: Patient Patient learns best by: Individual Instruction Written Instruction - Hand-outs Verbal Instruction Factors effecting learning: None Physical limitations effecting learning: None LEARNING RESPONSE Diagnosis: Pt simulated today for radiation therapy to pelvis. Education Topic/Teaching Points: Radiation therapy, Side effects, and OTV: Method of instruction: Teach Back skin care Individual instruction Written instruction/Handouts Verbal instruction Patient /Family response: Patient verbalized understanding of radiation treatments, side effects, OTV, and transportation. Follow-up plan: Complete - No need for follow-up Contact information given. Supplemental material: Informational handouts on Bladder function, Diarrhea, Fatigue, and Skin changes. Referral (recommendation): None, Pt denied need for social work, van service, and stamp redemption clerk. Patient has an Onbody or Implanted device: No Signed by: Lise Dillon RN documented in this encounter [facility] 03-02-2024 Note HNO ID: [id number] Author: LISE DILLON RN Service: ? Author Type: Registered Nurse Type: Progress Notes Filed: 03/02/2024 14:15 Note Text: Radiation Therapy - Patient Education Note PATIENT NAME: Clint Villar PATIENT March 02, 2024 [facility] FACILITY/LOCATION: [place] READINESS TO LEARN Cognitive Ability: Alert and oriented Motivation to learn: Eager Family Support: Unable to assess - Family not present Instruction provide to: Patient Patient learns best by: Individual Instruction Written Instruction - Hand-outs Verbal Instruction Factors effecting learning: None Physical limitations effecting learning: None LEARNING RESPONSE Diagnosis: Pt simulated today for radiation therapy to pelvis. Education Topic/Teaching Points: Radiation therapy, Side effects, and OTV: Method of instruction: Teach Back skin care Individual instruction Written instruction/Handouts Verbal instruction Patient /Family response: Patient verbalized understanding of radiation treatments, side effects, OTV, and transportation. Follow-up plan: Complete - No need for follow-up Contact information given. Supplemental material: Informational handouts on Bladder function, Diarrhea, Fatigue, and Skin changes. Referral (recommendation): None, Pt denied need for social work, van service, and stamp redemption clerk. Patient has an Onbody or Implanted device: No Signed by: Lise Dillon RN [facility] 03-02-2024 History of Present illness Narrative CLINT VILLAR [id number] 03/02/2024 [facility] Department of Radiation Oncology Treatment Planning Note For reasons stated in the consult note, Clint Villar is a candidate for radiation therapy. Based on review and interpretation of the relevant diagnostic studies together with the exam findings, Clint Villar was simulated on 03/02/2024 at which time the target volume and/or requisite winn were delineated, as indicated in the simulation note, to be treated according to the prescription. An ITV was created from all the phases of respiratory motion captured by the 4DCT image sets. Motion management allowed for design of patient specific planning target volume and reduced the radiation exposure to normal tissues. After reviewing the treatment plan with dosimetry, the plan was approved to deliver the prescribed course of radiation to the target area to allow for the best isodose distribution, treating to the 97.4% isodose line with 10MV and 2 vmat wnin. Custom MLC for IMRT were the treatment device(s) used to shape/modify the beams. IMRT planning was used because it best met the dose/volume constraints for the organs at risk for this patient, better than what could be achieved using conventional or 3D planning. The specific dose requirements for the PTV, organs at risk and dose-volume histograms are contained in this treatment plan and/or elsewhere in the medical record. A completed summary of this plan dated 03/03/2024 incorporated herein by reference includes dose, beam arrangements, energy, blocking, isodose distribution, and/or ports and DVH. Electronically Signed Rodolfo Aguilar M.D. :32 PM documented in this encounter 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 AREA:Retroperitoneal nodes PATIENT POSITION: Supine. CONTRAST: None PROTOCOL: None BLOCKING: Custom blocking to be determined at treatment planning. FIXATION DEVICE: In order to achieve accurate and reproducible treatments, the patient is to be immobilized with AIO orfit system. PROCEDURE: A time-out was conducted and recorded by the therapist. Patient was simulated on the CT scanner for external beam radiation therapy. Treatment site was marked by the simulation therapist. ASSESSMENT/PLAN: Patient tolerated simulation procedure well. Treatments will be initiated after treatment planning. The patient is scheduled for a verification simulation on the treatment machine to ensure proper set-up and field arrangement is correct prior to the first treatment of primary and boost winn if applicable. Electronically Signed Rodolfo Aguilar M.D./may 49:39 AM documented in this encounter 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 AREA:Retroperitoneal nodes PATIENT POSITION: Supine. CONTRAST: None PROTOCOL: None BLOCKING: Custom blocking to be determined at treatment planning. FIXATION DEVICE: In order to achieve accurate and reproducible treatments, the patient is to be immobilized with AIO orfit system. PROCEDURE: A time-out was conducted and recorded by the therapist. Patient was simulated on the CT scanner for external beam radiation therapy. Treatment site was marked by the simulation therapist. ASSESSMENT/PLAN: Patient tolerated simulation procedure well. Treatments will be initiated after treatment planning. The patient is scheduled for a verification simulation on the treatment machine to ensure proper set-up and field arrangement is correct prior to the first treatment of primary and boost winn if applicable. Electronically Signed Rodolfo Aguilar M.D./may 49:39 AM [facility] 03-02-2024 Note HNO ID: [id number] Author: RODOLFO AGUILAR MD Service: Radiation Oncology Author Type: Physician Type: Progress Notes Filed: 03/03/2024 14:32 Note Text: CLINT VILLAR [id number] 03/02/2024 [facility] Department of Radiation Oncology Treatment Planning Note For reasons stated in the consult note, Clint Villar is a candidate for radiation therapy. Based on review and interpretation of the relevant diagnostic studies together with the exam findings, Clint Villar was simulated on 03/02/2024 at which time the target volume and/or requisite winn were delineated, as indicated in the simulation note, to be treated according to the prescription. An ITV was created from all the phases of respiratory motion captured by the 4DCT image sets. Motion management allowed for design of patient specific planning target volume and reduced the radiation exposure to normal tissues. After reviewing the treatment plan with dosimetry, the plan was approved to deliver the prescribed course of radiation to the target area to allow for the best isodose distribution, treating to the 97.4% isodose line with 10MV and 2 vmat winn. Custom MLC for IMRT were the treatment device(s) used to shape/modify the beams. IMRT planning was used because it best met the dose/volume constraints for the organs at risk for this patient, better than what could be achieved using conventional or 3D planning. The specific dose requirements for the PTV, organs at risk and dose-volume histograms are contained in this treatment plan and/or elsewhere in the medical record. A completed summary of this plan dated 03/03/2024 incorporated herein by reference includes dose, beam arrangements, energy, blocking, isodose distribution, and/or ports and DVH. Electronically Signed Rodolfo Aguilar M.D. 42:32 PM [facility] 03-01-2024 Telephone encounter Note EMERGENCY ROOM CALL BACK Today's date: March 01, 2024 Patient identified by name and date of . YES Primary Cancer Diagnosis: Prostate Reason for Emergency Room Visit: kidney issues Time of day presented to Emergency Room 1524 If Fri-Friday during business hours: N/A COPIED FROM 02/28/24 ED NOTE: MDM / Disposition / Plan 83-year-old male history of hypertension, hyperlipidemia, prostate cancer presented to emergency department for abnormal lab findings. Physical exam findings as above. Differential diagnosis includes but is not limited to urinary obstruction versus other etiologies of HERMES's. This was discussed with Dr. Larsen from urology after laboratory evaluation was obtained. It was discussed that CT scan yesterday showed bilateral hydronephrosis as well as worsening mass effect of the prostate and other metastasis. He was also discussed that his creatinine 2 days ago was 2 with a GFR of 30 and I have now trended towards normal creatinine of 1.55. Patient demonstrated understanding and Dr. Larsen from urology stated that he would recommend outpatient follow-up. Did not recommend any medication changes at this time. Stated that due to it improving towards normal that he does not think percutaneous nephrostomy tubes were needed or significant stenting at this time. Stated that if patient was to get worsening urinary retention and difficulty urinating that he should be reevaluated again. Patient demonstrate understanding was discharged home in stable condition. FOLLOW UP Had f/u with Dr. Cortes and consult with Dr. Aguilar today. Cystscopy with bilateral stent insertion with Dr. Radha Larsen 03/08/24 Start radiation 03/09/[address] Payne 04/21/[address] [facility] Work Phone: 03-01-2024 Miscellaneous Notes EMERGENCY ROOM CALL BACK Today's date: March 01, 2024 Patient identified by name and date of . YES Primary Cancer Diagnosis: Prostate Reason for Emergency Room Visit: kidney issues Time of day presented to Emergency Room 1524 If Fri-Friday during business hours: N/A COPIED FROM 02/28/24 ED NOTE: MDM / Disposition / Plan 83-year-old male history of hypertension, hyperlipidemia, prostate cancer presented to emergency department for abnormal lab findings. Physical exam findings as above. Differential diagnosis includes but is not limited to urinary obstruction versus other etiologies of HERMES's. This was discussed with Dr. Larsen from urology after laboratory evaluation was obtained. It was discussed that CT scan yesterday showed bilateral hydronephrosis as well as worsening mass effect of the prostate and other metastasis. He was also discussed that his creatinine 2 days ago was 2 with a GFR of 30 and I have now trended towards normal creatinine of 1.55. Patient demonstrated understanding and Dr. Larsen from urology stated that he would recommend outpatient follow-up. Did not recommend any medication changes at this time. Stated that due to it improving towards normal that he does not think percutaneous nephrostomy tubes were needed or significant stenting at this time. Stated that if patient was to get worsening urinary retention and difficulty urinating that he should be reevaluated again. Patient demonstrate understanding was discharged home in stable condition. FOLLOW UP Had f/u with Dr. Cortes and consult with Dr. Aguilar today. Cystscopy with bilateral stent insertion with Dr. Radha Larsen 03/08/24 Start radiation 03/09/[address] Payne 04/21/24 Bouchra Fortune RN documented in this encounter [facility] 03-01-2024 Nurse Note Radiation Therapy - Nursing Note (Consult) PATIENT NAME: Clint Villar PATIENT March 01, 2024 [facility] FACILITY/LOCATION: [place] Chief Complaint: consult Reason for visit: Consult. Referring physician: Internal provider Dr Payne Subjective Data: no complaints Additional Data Do you want to see a Substance Abuse Counselor? No Are you interested in information about fertility? No Status: Patient is male Stress Scale: On a scale of 0 to 10, what number best describes how much distress you have experienced in the past week?(0 being no distress and 10 being extreme distress) 3 Social work notified: no SIGNED by: Anni Mcnair RN [facility] 03-01-2024 Nurse Note Radiation Therapy - Nursing Note (Consult) PATIENT NAME: Clint Villar PATIENT March 01, 2024 [facility] FACILITY/LOCATION: [place] Chief Complaint: consult Reason for visit: Consult. Referring physician: Internal provider Dr Payne Subjective Data: no complaints Additional Data Do you want to see a Substance Abuse Counselor? No Are you interested in information about fertility? No Status: Patient is male Stress Scale: On a scale of 0 to 10, what number best describes how much distress you have experienced in the past week?(0 being no distress and 10 being extreme distress) 3 Social work notified: no SIGNED by: Anni Mcnair RN documented in this encounter [facility] 03-01-2024 History of Present illness Narrative Radiation Oncology - New Patient/Consult Note PATIENT NAME: Clint Villar PATIENT REQUESTING PROVIDER: Dr. 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 HPI: 83 year old male who presents with above diagnosis, for an opinion regarding the role of radiation therapy in the management of the patient's disease. Final recommendations will be communicated back to the requesting physician by way of the shared medical record, or letter to requesting physician via US mail. 83 year old man who had positive Cologuard test. CT colonography on 12/04/23 showed broad-based mass in the mid rectum (up to 2.2 cm. Several perirectal soft tissue likely tumor deposits. Retroperitoneal and pelvic metastatic lymphadenopathy. Moderate right hydroureteronephrosis obstructed at the level of mid ureter encased by retroperitoneal lymphadenopathy. Colonoscopy on 12/18/23 showed non-bleeding internal hemorrhoids. The hemorrhoids were moderate and medium-sized. Increased firmness of the prostate found on digital rectal exam. The exam was otherwise without abnormality. PSA on 10/22/23 was 73.59 ng/mL. Prostate biopsy on 01/26/24 showed prostatic adenocarcinoma with [place] score 8 (4+4). Bone scan on 02/20/24 showed foci of uptake in the right ribs, subtle uptake in the scapular spine, increased uptake in the proximal sternum, small focal uptake at the right greater and lesser trochanters, subtle uptake at the posteromedial right ilium. CT A/P on 02/27/24 showed lobulated rectal wall thickening in keeping with the patient's known malignancy, appearing progressed from the prior study. Retroperitoneal and pelvic lymphadenopathy appearing overall progression. In addition, pararectal tumor deposits have progressed in the interval. Severe bilateral hydronephrosis, right greater than left, secondary to ureteral encasement by progressive retroperitoneal lymphadenopathy. He is schedule for Cystscopy with bilateral stent insertion with Dr. Rahda Larsen this coming Mondamarch the . He was started on Casodex on 02/13/24. ALLERGIES No Known Allergies Current Outpatient Medications on File Prior to Visit Medication Sig valACYclovir (VALTREX) 500 mg tablet Take 1 tablet by mouth once daily. bicalutamide (CASODEX) 50 mg tablet Take 1 tablet by mouth once daily. Take for 10 days starting when you get lupron injection hydrOXYzine HCl (ATARAX) 25 mg tablet Take 1 tablet by mouth daily at bedtime. losartan (COZAAR) 100 mg tablet Take 1 tablet by mouth once daily. atorvastatin (LIPITOR) 40 mg tablet Take 1 tablet by mouth daily at bedtime. tamsulosin (FLOMAX) 0.4 mg Take 2 capsules by mouth daily at bedtime. levothyroxine (SYNTHROID) 112 mcg tablet Take 1 tablet by mouth once daily. Take on empty stomach. For thyroid finasteride (PROSCAR) 5 mg tablet Take 1 tablet by mouth once daily apixaban (ELIQUIS) 5 mg tab(s) Take 1 tablet by mouth two times a day. metoprolol tartrate, short acting, (LOPRESSOR) 50 mg tablet Take 1 tablet by mouth two times a day. amLODIPine (NORVASC) 5 mg tablet Take 1 tablet by mouth once daily. cyclobenzaprine (FLEXERIL) 10 mg tablet Take 1 tablet by mouth twice daily as needed for muscle spasm. No current facility-administered medications on file prior to visit. PAST MEDICAL HISTORY Diagnosis Date 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 Anticoagulant long-term use 10/21/2023 At risk for stroke 10/21/2023 Atrial fibrillation (HCC) COVID-19 virus infection 07/03/2020 Dizziness and giddiness Elevated PSA 01/09/2023 Herpes infection 05/23/2015 Breaks out in sacral area every 2-3 months. 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 Prior radiation therapy, collagen vascular disease, or inflammatory bowel disease: No Any implanted or external electric devices? No PAST SURGICAL HISTORY Procedure Laterality Date COLONOSCOPY - DIAGNOSTIC 12/18/2023 OPEN REPAIR OF ROTATOR CUFF ACUTE Right 2005 Rotator cuff repair, right PROSTATE BIOPSY W/TRANSRECTAL US 01/26/2024 TONSILLECTOMY PRIMARY/SECONDARY <AGE 14 1950s Tonsillectomy FAMILY HISTORY Problem Relation Age of Onset other (Other) Mother no contact Coronary Artery Disease Father Heart Failure Father Diabetes Father Cancer Paternal Grandfather Cancer Half-brother Social History Tobacco Use Smoking status: Former Types: Cigarettes Smokeless tobacco: Never Tobacco comments: Pt smoked 1 pack daily x 14 years, quit in 1964 Vaping Use Vaping status: Never Used Substance Use Topics Alcohol use: Yes Alcohol/week: 1.0 standard drink of alcohol Types: 1 Cans of beer per week Drug use: Never COMPLETE REVIEW OF SYSTEMS: GENERAL: feeling well without fatigue, no recent change in weight HEENT: denies [place], change in hearing or vision, no other ENT complaints NECK: denies swelling or pain in neck RESPIRATORY: no cough, no wheezing or shortness of breath CARDIOVASCULAR: no chest pain, no palpitations GI: chronic constipation using stool softeners. : Flomax. MUSCULOSKELETAL: denies any painful or swollen joints, no muscle aches SKIN: no rash HEMATOLOGY/LYMPHOLOGY: Eliquis for a. fib. NEURO: no numbness or paresthesias and no weakness of the extremities PHYSICAL EXAM: VS: BP 137/74 Pulse (!) 52 Temp 36.3 C (97.4 F) (Temporal) Resp 15 Wt 90.3 kg (199 lb) SpO2 96% BMI 32.12 kg/m KPS: 90 General Appearance: Alert and oriented. No acute distress. HEENT: NCAT. Sclera anicteric. EOMI. Neck: Normal ROM. Chest: No respiratory distress. Musculoskeletal: Normal ROM in extremities. Neuro: Speech fluent. Gait normal. No focal deficits. Hematologic: No signs of active bleeding. 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 As he has bulky metastasis in the retroperitoneal nodes causing ureteral obstruction, I recommend palliative radiation treatment there. He is scheduled to have ureteral stent placement on 03/08/24. I explained the rationale, benefits, alternative management options and potential complications of radiation treatment to the patient and he understands and agrees to proceed. It was explained and understood that other personnel such as radiation therapists, dual rate supervisor, and physicists will participate in planning and delivery of radiation treatment. Permanent tattoo luz will be placed to aid with positioning for daily treatment and the patient consented. Patient will have a simulation procedure. Thank you very much for allowing us to participate in his care. Signed by: Rodolfo Aguilar MD cc: Cody Carrington [address] [place] [id number] Johan Payne [id number] [id number] documented in this encounter [facility] 03-01-2024 Note HNO ID: [id number] Author: RODOLFO AGUILAR MD Service: ? Author Type: Physician Type: Progress Notes Filed: 03/04/2024 13:40 Note Text: Radiation Oncology - New Patient/Consult Note PATIENT NAME: Clint Villar PATIENT REQUESTING PROVIDER: Dr. 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 HPI: 83 year old male who presents with above diagnosis, for an opinion regarding the role of radiation therapy in the management of the patient's disease. Final recommendations will be communicated back to the requesting physician by way of the shared medical record, or letter to requesting physician via US mail. 83 year old man who had positive Cologuard test. CT colonography on 12/04/23 showed broad-based mass in the mid rectum (up to 2.2 cm. Several perirectal soft tissue likely tumor deposits. Retroperitoneal and pelvic metastatic lymphadenopathy. Moderate right hydroureteronephrosis obstructed at the level of mid ureter encased by retroperitoneal lymphadenopathy. Colonoscopy on 12/18/23 showed non-bleeding internal hemorrhoids. The hemorrhoids were moderate and medium-sized. Increased firmness of the prostate found on digital rectal exam. The exam was otherwise without abnormality. PSA on 10/22/23 was 73.59 ng/mL. Prostate biopsy on 01/26/24 showed prostatic adenocarcinoma with [place] score 8 (4+4). Bone scan on 02/20/24 showed foci of uptake in the right ribs, subtle uptake in the scapular spine, increased uptake in the proximal sternum, small focal uptake at the right greater and lesser trochanters, subtle uptake at the posteromedial right ilium. CT A/P on 02/27/24 showed lobulated rectal wall thickening in keeping with the patient's known malignancy, appearing progressed from the prior study. Retroperitoneal and pelvic lymphadenopathy appearing overall progression. In addition, pararectal tumor deposits have progressed in the interval. Severe bilateral hydronephrosis, right greater than left, secondary to ureteral encasement by progressive retroperitoneal lymphadenopathy. He is schedule for Cystscopy with bilateral stent insertion with Dr. Radha Larsen this coming March the . He was started on Casodex on 02/13/24. ALLERGIES No Known Allergies Current Outpatient Medications on File Prior to Visit Medication Sig valACYclovir (VALTREX) 500 mg tablet Take 1 tablet by mouth once daily. bicalutamide (CASODEX) 50 mg tablet Take 1 tablet by mouth once daily. Take for 10 days starting when you get lupron injection hydrOXYzine HCl (ATARAX) 25 mg tablet Take 1 tablet by mouth daily at bedtime. losartan (COZAAR) 100 mg tablet Take 1 tablet by mouth once daily. atorvastatin (LIPITOR) 40 mg tablet Take 1 tablet by mouth daily at bedtime. tamsulosin (FLOMAX) 0.4 mg Take 2 capsules by mouth daily at bedtime. levothyroxine (SYNTHROID) 112 mcg tablet Take 1 tablet by mouth once daily. Take on empty stomach. For thyroid finasteride (PROSCAR) 5 mg tablet Take 1 tablet by mouth once daily apixaban (ELIQUIS) 5 mg tab(s) Take 1 tablet by mouth two times a day. metoprolol tartrate, short acting, (LOPRESSOR) 50 mg tablet Take 1 tablet by mouth two times a day. amLODIPine (NORVASC) 5 mg tablet Take 1 tablet by mouth once daily. cyclobenzaprine (FLEXERIL) 10 mg tablet Take 1 tablet by mouth twice daily as needed for muscle spasm. No current facility-administered medications on file prior to visit. PAST MEDICAL HISTORY Diagnosis Date 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 Anticoagulant long-term use 10/21/2023 At risk for stroke 10/21/2023 Atrial fibrillation (HCC) COVID-19 virus infection 07/03/2020 Dizziness and giddiness Elevated PSA 01/09/2023 Herpes infection 05/23/2015 Breaks out in sacral area every 2-3 months. 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 Prior radiation therapy, collagen vascular disease, or inflammatory bowel disease: No Any implanted or external electric devices? No PAST SURGICAL HISTORY Procedure Laterality Date COLONOSCOPY - DIAGNOSTIC 12/18/2023 OPEN REPAIR OF ROTATOR CUFF ACUTE Right 2005 Rotator cuff repair, right PROSTATE BIOPSY W/TRANSRECTAL US 01/26/2024 TONSILLECTOMY PRIMARY/SECONDARY Tonsillectomy FAMILY HISTORY Problem Relation Age of Onset (more content not included)... [facility] 03-01-2024 Instructions Devin Cortes MD - 03/01/2024 9:44 AM EDT Please hold your Eliquis 2 days before your procedure and restart the day after, documented in this encounter [facility] 03-01-2024 Note HNO ID: [id number] Author: DEVIN CORTES MD Service: ? Author Type: Physician Type: Progress Notes Filed: 03/01/2024 09:46 Note Text: [facility] UROLOGY - VIRTUAL VISIT PROGRESS NOTE Consent for this telehealth visit obtained from the patient prior to initiation of the encounter. The patient acknowledges the limitations of telehealth and agrees to proceed. The patient understands that this visit will be documented in the medical record as any other patient encounter. HPI: Clint Villar is a 83 year old male seen virtually for follow-up regarding hydronephrosis and HERMES. Last week patient was found to have severe bilateral hydronephrosis, right side greater than left, along with worsening kidney function. Unable to contact patient directly after test results so message was left for patient to be evaluated in ER. See note from 02/26 for details of patient's findings. Patient was evaluated in the ER and found to have slight improvement to renal function, serum creatinine 1.55. CT showed considerable obstruction of the right ureter secondary to ureteral encasement from retroperitoneal lymphadenopathy. CT abdomen pelvis from 02/26 is shown below. IMAGING: IMPRESSION: Lobulated rectal wall thickening in keeping with the patient's known malignancy, appearing progressed from the prior study. Retroperitoneal and pelvic lymphadenopathy appearing overall progression the previous study as above indicating progression of disease. In addition, pararectal tumor deposits have progressed in the interval. Severe bilateral hydronephrosis, right greater than left, secondary to ureteral encasement by progressive retroperitoneal lymphadenopathy. No obstructing calculus identified. Cost Estimating Manager: PSCB Transcribe Date/Time: Feb 27 2024 1:09P Dictated by : SRUTHI HO MD This examination was interpreted and the report reviewed and electronically signed by: SRUTHI HO MD on Feb 27 2024 1:39PM EST Results-Findings * * *Final Report* * * DATE OF EXAM: Feb 27 2024 12:35PM [facility] 0531 - CT ABD/PEL WO IVCON / PROCEDURE REASON: Hydronephrosis, unspecified hydronephrosis type * * * * Physician Interpretation * * * * EXAMINATION: CT ABDOMEN AND PELVIS WITHOUT IV CONTRAST CLINICAL HISTORY: Hydronephrosis, unspecified hydronephrosis type. Right flank pain several weeks. History of colorectal cancer. TECHNIQUE: Non-IV contrast imaging of the abdomen and pelvis was performed using standard technique, scanning from just above the dome of the diaphragm to the symphysis pubis. Unenhanced imaging is limited for the evaluation of some intra-abdominal and pelvic pathology. MQ: CTAPWO_3 Contrast: IV: None CT Radiation dose: Integrated Dose-length product (DLP) for this visit = 459.20 mGy*cm. CT Dose Reduction Employed: Automated exposure control(AEC) and iterative recon COMPARISON: CT colonoscopy dated 12/04/2023. RESULT: Abdomen / Pelvis: Liver: Unremarkable. Biliary: The gallbladder is unremarkable. Spleen: No splenomegaly. Pancreas: Unremarkable. Adrenals: No mass. Kidneys: There is severe bilateral hydronephrosis, right greater than left with distal ureteral encasement again shown at the level of the aortic bifurcation by iliac chain lymphadenopathy described below. No calculus. No finding to suggest a mass or cyst in the unenhanced kidney. GI Tract: No bowel dilation. There is lobular rectal wall thickening (image 94, series 2) which appears progressed. Lymph Nodes: Multiple enlarged retroperitoneal and pelvic lymph nodes have overall increased in size from the previous study. 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 * Bilateral external iliac chain lymphadenopathy appears stable to slightly worse. Mesentery/peritoneum: No ascites or free air. Vasculature: Arterial atherosclerotic disease without aneurysm. Pelvis: Perirectal nodular soft tissue deposits are again shown. This includes a 3.0 x 2.2 cm on the right compared with 2.5 x 1.9 cm previously. Dimensions on the left are 2.5 x 3.0 cm, stable. Dimensions posteriorly are 4.2 x 3.0 cm compared with 3.5 x 2.5 cm previously. Bones/Soft Tissues: Mild lumbar levoscoliosis with degenerative changes at multiple levels in the spine. 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 No destructive bone lesion. Degenerative changes of the hips. Lower thorax: Calcified granuloma posteriorly at the left base. Otherwise, unremarkable. Localizer images: No additional findings. HISTORY REVIEWED (electronic chart updated): PAST MEDICAL HISTORY Diagnosis Date Allergic contact (more content not included)... [facility] 03-01-2024 History of Present illness Narrative Images from the original note were not included. [facility] UROLOGY - VIRTUAL VISIT PROGRESS NOTE Consent for this telehealth visit obtained from the patient prior to initiation of the encounter. The patient acknowledges the limitations of telehealth and agrees to proceed. The patient understands that this visit will be documented in the medical record as any other patient encounter. HPI: Clint Villar is a 83 year old male seen virtually for follow-up regarding hydronephrosis and HERMES. Last week patient was found to have severe bilateral hydronephrosis, right side greater than left, along with worsening kidney function. Unable to contact patient directly after test results so message was left for patient to be evaluated in ER. See note from 02/26 for details of patient's findings. Patient was evaluated in the ER and found to have slight improvement to renal function, serum creatinine 1.55. CT showed considerable obstruction of the right ureter secondary to ureteral encasement from retroperitoneal lymphadenopathy. CT abdomen pelvis from 02/26 is shown below. IMAGING: IMPRESSION: Lobulated rectal wall thickening in keeping with the patient's known malignancy, appearing progressed from the prior study. Retroperitoneal and pelvic lymphadenopathy appearing overall progression the previous study as above indicating progression of disease. In addition, pararectal tumor deposits have progressed in the interval. Severe bilateral hydronephrosis, right greater than left, secondary to ureteral encasement by progressive retroperitoneal lymphadenopathy. No obstructing calculus identified. Cost Estimating Manager: PSCB Transcribe Date/Time: Feb 27 2024 1:09P Dictated by : SRUTHI HO MD This examination was interpreted and the report reviewed and electronically signed by: SRUTHI HO MD on Feb 27 2024 1:39PM EST Results-Findings * * *Final Report* * * DATE OF EXAM: Feb 27 2024 12:35PM [facility] 0531 - CT ABD/PEL WO IVCON / PROCEDURE REASON: Hydronephrosis, unspecified hydronephrosis type * * * * Physician Interpretation * * * * EXAMINATION: CT ABDOMEN AND PELVIS WITHOUT IV CONTRAST CLINICAL HISTORY: Hydronephrosis, unspecified hydronephrosis type. Right flank pain several weeks. History of colorectal cancer. TECHNIQUE: Non-IV contrast imaging of the abdomen and pelvis was performed using standard technique, scanning from just above the dome of the diaphragm to the symphysis pubis. Unenhanced imaging is limited for the evaluation of some intra-abdominal and pelvic pathology. MQ: CTAPWO_3 Contrast: IV: None CT Radiation dose: Integrated Dose-length product (DLP) for this visit = 459.20 mGy*cm. CT Dose Reduction Employed: Automated exposure control(AEC) and iterative recon COMPARISON: CT colonoscopy dated 12/04/2023. RESULT: Abdomen / Pelvis: Liver: Unremarkable. Biliary: The gallbladder is unremarkable. Spleen: No splenomegaly. Pancreas: Unremarkable. Adrenals: No mass. Kidneys: There is severe bilateral hydronephrosis, right greater than left with distal ureteral encasement again shown at the level of the aortic bifurcation by iliac chain lymphadenopathy described below. No calculus. No finding to suggest a mass or cyst in the unenhanced kidney. GI Tract: No bowel dilation. There is lobular rectal wall thickening (image 94, series 2) which appears progressed. Lymph Nodes: Multiple enlarged retroperitoneal and pelvic lymph nodes have overall increased in size from the previous study. 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 * Bilateral external iliac chain lymphadenopathy appears stable to slightly worse. Mesentery/peritoneum: No ascites or free air. Vasculature: Arterial atherosclerotic disease without aneurysm. Pelvis: Perirectal nodular soft tissue deposits are again shown. This includes a 3.0 x 2.2 cm on the right compared with 2.5 x 1.9 cm previously. Dimensions on the left are 2.5 x 3.0 cm, stable. Dimensions posteriorly are 4.2 x 3.0 cm compared with 3.5 x 2.5 cm previously. Bones/Soft Tissues: Mild lumbar levoscoliosis with degenerative changes at multiple levels in the spine. 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 No destructive bone lesion. Degenerative changes of the hips. Lower thorax: Calcified granuloma posteriorly at the left base. Otherwise, unremarkable. Localizer images: No additional findings. HISTORY REVIEWED (electronic chart updated): PAST MEDICAL HISTORY Diagnosis Date 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 Anticoagulant long-term use 10/21/2023 At risk for stroke 10/21/2023 Atrial fibrillation (HCC) COVID-19 virus infection 07/03/2020 Dizziness and giddiness Elevated PSA 01/09/2023 Herpes infection 05/23/2015 Breaks out in sacral area every 2-3 months. 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 PAST SURGICAL HISTORY Procedure Laterality Date COLONOSCOPY - DIAGNOSTIC 12/18/2023 OPEN REPAIR OF ROTATOR CUFF ACUTE Right 2005 Rotator cuff repair, right PROSTATE BIOPSY W/TRANSRECTAL US 01/26/2024 TONSILLECTOMY PRIMARY/SECONDARY <AGE 14 1950s Tonsillectomy FAMILY HISTORY Problem Relation Age of Onset other (Other) Mother no contact Coronary Artery Disease Father Heart Failure Father Diabetes Father Cancer Paternal Grandfather Cancer Half-brother Social History Tobacco Use Smoking status: Former Types: Cigarettes Smokeless tobacco: Never Tobacco comments: Pt smoked 1 pack daily x 14 years, quit in 1965 Vaping Use Vaping status: Never Used Substance Use Topics Alcohol use: Yes Alcohol/week: 1.0 standard drink of alcohol Types: 1 Cans of beer per week Drug use: Never Current Outpatient Medications Medication Sig valACYclovir (VALTREX) 500 mg tablet Take 1 tablet by mouth once daily. bicalutamide (CASODEX) 50 mg tablet Take 1 tablet by mouth once daily. Take for 10 days starting when you get lupron injection hydrOXYzine HCl (ATARAX) 25 mg tablet Take 1 tablet by mouth daily at bedtime. losartan (COZAAR) 100 mg tablet Take 1 tablet by mouth once daily. atorvastatin (LIPITOR) 40 mg tablet Take 1 tablet by mouth daily at bedtime. tamsulosin (FLOMAX) 0.4 mg Take 2 capsules by mouth daily at bedtime. levothyroxine (SYNTHROID) 112 mcg tablet Take 1 tablet by mouth once daily. Take on empty stomach. For thyroid finasteride (PROSCAR) 5 mg tablet Take 1 tablet by mouth once daily apixaban (ELIQUIS) 5 mg tab(s) Take 1 tablet by mouth two times a day. metoprolol tartrate, short acting, (LOPRESSOR) 50 mg tablet Take 1 tablet by mouth two times a day. amLODIPine (NORVASC) 5 mg tablet Take 1 tablet by mouth once daily. cyclobenzaprine (FLEXERIL) 10 mg tablet Take 1 tablet by mouth twice daily as needed for muscle spasm. No current facility-administered medications for this visit. ALLERGIES No Known Allergies REVIEW OF SYSTEMS: Reviewed and otherwise non-contributory PHYSICAL EXAMINATION: VIDEO EXAM: (if completed, performed via video enabled technology) No exam performed ASSESSMENT/PLAN: 1. Bilateral hydronephrosis - ICD9: 591, ICD10: N13.30 (primary diagnosis) 2. Retroperitoneal lymphadenopathy - ICD9: 785.6, ICD10: R59.0 3. Hydronephrosis with ureteral stricture, not elsewhere classified - ICD9: 591, ICD10: N13.1 4. HERMES (acute kidney injury) (HCC) - ICD9: 584.9, ICD10: N17.9 ER eval showed menanet to have slight improvement in renal function. He is able to urinate on his own , although he states that stream is slightly weaker. He is schedule for Cystscopy with nbilateral stent insertion with Dr. Radha Larsen this coming March the . I reached out to his car varnisher Dr. Barrera who advised me to tell him to stop his Eliquis 2 days before his procedure and restart the day after. He is understanding. I spent a total of 30 minutes on the date of the service which included preparing to see the patient, [id number] patient care, completing clinical documentation, obtaining and/or reviewing separately obtained history, counseling and educating the patient/family/caregiver, communicating with other HCPs (not separately reported), and communicating results to the patient/family/caregiver. It required patient-provider interaction for the medical decision making as documented above. Devin Cortes MD documented in this encounter [facility] 03-01-2024 Telephone encounter Note I spoke with patient this morning, he is scheduled for 03/08/2024. He is aware of the date, details and everything. Thank you, Edie Chandler [facility] 03-01-2024 Miscellaneous Notes I spoke with patient this morning, he is scheduled for 03/08/2024. He is aware of the date, details and everything. Thank you, Edie Chandler Please try to add as soon as possible Surgery: Cystoscopy and pyelograms, bilateral ureteral stent insertion Duration: 1 hour(s) Surgeon: Radha Larsen MD Location: [facility] Anesthesia: General Fluoroscopy: Yes Special equipment: none PACC visit: No Presurgical testing: no additional Clearance: No Bowel prep: No Blood thinners to stop: yes documented in this encounter [facility] 03-01-2024 Telephone encounter Note Please try to add as soon as possible Surgery: Cystoscopy and pyelograms, bilateral ureteral stent insertion Duration: 1 hour(s) Surgeon: Radha Larsen MD Location: [facility] Anesthesia: General Fluoroscopy: Yes Special equipment: none PACC visit: No Presurgical testing: no additional Clearance: No Bowel prep: No Blood thinners to stop: yes [facility] Work Phone: 02-27-2024 History of Present illness Narrative Radiology Service Progress Note PATIENT NAME: Clint Villar DATE OF SERVICE: February 27, 2024 TIME: 12:28 PM PATIENT IDENTITY VERIFICATION COMPLETED USING TWO (2) IDENTIFIERS: Name and Date of confirmed by patient verbally. FALL SCREENING: Has the patient had 2 falls in the last year or 1 fall with injury or currently using an Ambulatory Assistive Device (Walker, Cane, Wheelchair, Crutches, etc.)? No PATIENT GENDER DATA: Male PATIENT RELEVANT IMPLANT DATA REVIEWED: Not Applicable PATIENT PRESENTS WITH AN IMPLANTABLE OR ATTACHED DRIER AND EVAPORATOR OPERATOR: No RADIOLOGY DEPARTMENT: CT; Exam(s) Completed: Abdomen/Pelvis PERIPHERAL IV DATA: Not applicable SIGNED BY: SABRINA Valadez, RT(CT) February 27, 2024 12:28 PM documented in this encounter [facility] 02-27-2024 History of Present illness Narrative Images from the original note were not included. [facility] UROLOGY ESTABLISHED PATIENT CLINIC NOTE JAY JAY DE JESUS PATIENT INFO: Clint Villar AGE: [age] year old PCP: Cody Carrington MD IMPRESSION/PLAN: 1. Prostate cancer (HCC) - ICD9: 185, ICD10: C61 (primary diagnosis) -discussed findings in detail with the patient. Has already started on Eligard through his hematology oncologist. 2. Hydronephrosis, unspecified hydronephrosis type - ICD9: 591, ICD10: N13.30 -Likely due to ureteral obstruction. Will obtain stat CT abdomen pelvis, noncontrast, to evaluate degree of hydroureteronephrosis. Patient may require immediate ureteral stent insertion. Will discuss with surgical urology on-call. 3. HERMES (acute kidney injury) (HCC) - ICD9: 584.9, ICD10: N17.9 -Recent serum creatinine has doubled to 2.0. REASON FOR VISIT: Prostate Bx follow up HPI: Clint Villar returns for continuing evaluation and management. Recent prostate biopsy pathology confirms prostate cancer, Cindy 7 and 8, highest GG 4, found in 12/12 biopsy cores. Recent colonoscopy CT confirms retroperitoneal adenopathy possibly secondary to prostate cancer or a possible rectal mass. CT also revealed moderate right hydroureteronephrosis obstructed at level of mid ureter encased by retroperitoneal lymphadenopathy. Additionally patient underwent a recent colonoscopy however rectal mass was not found. Patient is under the care of of hematology oncologist Dr. Payne and was ordered to start Eligard injections. Patient underwent first injection today. UROLOGICAL DATA: FINAL DIAGNOSIS A. Prostate, left apex, biopsy: - Prostatic adenocarcinoma, [place] score 4+3 = 7 with perineural invasion (grade group 3), involving 1 core (100%). - Large cribriform pattern is present. B. Prostate, left mid, biopsy: - Prostatic adenocarcinoma, Cindy score 4+3 = 7 with perineural invasion (grade group 3), involving 1 core (13 mm, 87%). - Large cribriform pattern is present. C. Prostate, left base, biopsy: - Prostatic adenocarcinoma, Cindy score 4+3 = 7 with perineural invasion (grade group 3), involving 1 core (8 mm, 67%). - Large cribriform pattern is present. D. Prostate, left lateral apex, biopsy: - Prostatic adenocarcinoma, Cindy score 4+3 = 7 with perineural invasion (grade group 3), involving 1 core (15 mm, 75%). - Large cribriform pattern is present. E. Prostate, left lateral mid, biopsy: - Prostatic adenocarcinoma, [place] score 3+4 = 7 with perineural invasion (grade group 2), involving 1 core (10 mm, 100%). - Extraprostatic extension is present. - Large cribriform pattern is present. F. Prostate, left lateral base, biopsy: - Prostatic adenocarcinoma, [place] score 4+3 = 7 with perineural invasion (grade group 3), involving 1 core (7 mm, 58%). - Large cribriform pattern is present. G. Prostate, right apex, biopsy: - Prostatic adenocarcinoma, [place] score 4+4 = 8 with perineural invasion (grade group 4), involving 1 core (18 mm, 90%). - Large cribriform pattern is present. H. Prostate, right mid, biopsy: - Prostatic adenocarcinoma, [place] score 4+3 = 7 with perineural invasion (grade group 3), involving 1 core (18 mm, 100%). - Large cribriform pattern is present. I. Prostate, right base, biopsy: - Prostatic adenocarcinoma, [place] score 4+4 = 8 with perineural invasion (grade group 4), involving 1 core (18 mm, 100%). - Large cribriform pattern is present. J. Prostate, right lateral apex, biopsy: - Prostatic adenocarcinoma, Cindy score 4+4 = 8 with perineural invasion (grade group 4), involving 1 core (15 mm, 88%). - Large cribriform pattern is present. K. Prostate, right lateral mid, biopsy: - Prostatic adenocarcinoma, Cindy score 4+4 = 8 (grade group 4), involving 1 core (19 mm, 95%). - Large cribriform pattern is present. L. Prostate, right lateral base, biopsy: - Prostatic adenocarcinoma, Cindy score 4+4 = 8 (grade group 4), involving 1 core (19 mm, 100%). - Large cribriform pattern is present. Prostate Cancer Biopsy Summary Number of cores examined: 12 Number of cores positive: 12 Highest Grade Group: 4 Highest % of core involvement: 100 % Cribriform pattern 4: Present Intraductal carcinoma: Absent Manager Relocation tumor block to use for additional studies: L1 Diagnosis Comment Selected slides were shown at consensus conference on 01/28/2024 and the attendees concurred with the above diagnosis. Gross Description A. Prostate, Left, [place], Biopsy Received in formalin is one piece of cylindrical tissue measuring 1.1 x 0.1 x 0.1 cm, gibson and of a soft and friable consistency. Totally submitted in one cassette. B. Prostate, Left, Mid, Biopsy Received in formalin is one piece of cylindrical tissue measuring 1.7 x 0.1 x 0.1 cm, gibson and of a soft and friable consistency. Totally submitted in one cassette. C. Prostate, Left, Base, Biopsy Received in formalin is one piece of cylindrical tissue measuring 1.5 x 0.1 x 0.1 cm, gibson and of a soft and friable consistency. Totally submitted in one cassette. D. Prostate, Left, Lateral [place] , Biopsy Received in formalin is one fragmented piece of cylindrical tissue measuring 2.2 x 0.1 x 0.1 cm, gibson and of a soft and friable consistency. Totally submitted in one cassette. E. Prostate, Left, Lateral Mid, Biopsy Received in formalin is one piece of cylindrical tissue measuring 1.0 x 0.1 x 0.1 cm, gibson and of a soft and friable consistency. Totally submitted in one cassette. F. Prostate, Left, Lateral Base, Biopsy Received in formalin is one piece of cylindrical tissue measuring 1.4 x 0.1 x 0.1 cm, gibson and of a soft and friable consistency. Totally submitted in one cassette. G. Prostate, Right, [place], Biopsy Received in formalin is one fragmented piece of cylindrical tissue measuring 2.3 x 0.1 x 0.1 cm, gibson and of a soft and friable consistency. Totally submitted in one cassette. H. Prostate, Right, Mid, Biopsy Received in formalin is one piece of cylindrical tissue measuring 2.1 x 0.1 x 0.1 cm, gibson and of a soft and friable consistency. Totally submitted in one cassette. I. Prostate, Right, Base, Biopsy Received in formalin is one piece of cylindrical tissue measuring 2.1 x 0.1 x 0.1 cm, gibson and of a soft and friable consistency. Totally submitted in one cassette. J. Prostate, Right, Lateral [place], Biopsy Received in formalin is one fragmented piece of cylindrical tissue measuring 2.2 x 0.1 x 0.1 cm, gibson and of a soft and friable consistency. Totally submitted in one cassette. K. Prostate, Right, Lateral Mid, Biopsy Received in formalin is one piece of cylindrical tissue measuring 2.1 x 0.1 x 0.1 cm, gibson and of a soft and friable consistency. Totally submitted in one cassette. L. Prostate, Right, Lateral Base, Biopsy Received in formalin is one piece of cylindrical tissue measuring 2.0 x 0.1 x 0.1 cm, gibson and of a soft and friable consistency. Totally submitted in one cassette. Gross examination performed at [place] [id number] CLIA#[id number] JXM 01/27/24 12:19 PM Clinical History Elevated PSA Performing Lab Diagnostic interpretation performed at [place] [address] CLIA# [id number] Jacquard Card Lacer: Ramya Veras M.D. URINE POC pH, Urine Date Value Ref Range Status 02/26/2024 6.5 <8.5 Final Specific [place], Ur Date Value Ref Range Status 02/26/2024 1.015 1.005 - 1.030 Final Glucose, Urine Date Value Ref Range Status 02/26/2024 Negative Negative Final Bilirubin, Urine Date Value Ref Range Status 02/26/2024 Negative Negative Final Ketones, Urine Date Value Ref Range Status 02/26/2024 Negative Negative Final Hemoglobin/Blood,Ur Date Value Ref Range Status 02/26/2024 Negative Negative Final Protein, Urine Date Value Ref Range Status 02/26/2024 Negative Negative Final Urobilinogen Date Value Ref Range Status 02/26/2024 0.2 EU/dL 0.2-1.0 EU/dL Final Nitrites Date Value Ref Range Status 02/26/2024 Negative Negative Final WBC, Urine Date Value Ref Range Status 02/26/2024 0-5 /HPF 0-5 /HPF Final OTHER DATA: PSA (ng/mL) Date Value 10/22/2023 73.59 01/03/2023 71.22 IsoPSA (no units) Date Value 02/04/2023 0 Creatinine Date Value Ref Range Status 02/26/2024 2.00 (H) 0.73 - 1.22 mg/dL Final 10/22/2023 1.03 0.73 - 1.22 mg/dL Final 07/18/2023 1.04 0.73 - 1.22 mg/dL Final 01/03/2023 1.07 0.73 - 1.22 mg/dL Final Testosterone (ng/dL) Date Value 06/30/2021 299 PMHx/PSHx: see above, otherwise unchanged Rx: reviewed and unchanged ROS: see above, otherwise unchanged Labs: None Imaging: None MEDICATIONS: Current Outpatient Medications Medication Sig valACYclovir (VALTREX) 500 mg tablet Take 1 tablet by mouth once daily. bicalutamide (CASODEX) 50 mg tablet Take 1 tablet by mouth once daily. Take for 10 days starting when you get lupron injection hydrOXYzine HCl (ATARAX) 25 mg tablet Take 1 tablet by mouth daily at bedtime. losartan (COZAAR) 100 mg tablet Take 1 tablet by mouth once daily. atorvastatin (LIPITOR) 40 mg tablet Take 1 tablet by mouth daily at bedtime. tamsulosin (FLOMAX) 0.4 mg Take 2 capsules by mouth daily at bedtime. levothyroxine (SYNTHROID) 112 mcg tablet Take 1 tablet by mouth once daily. Take on empty stomach. For thyroid finasteride (PROSCAR) 5 mg tablet Take 1 tablet by mouth once daily apixaban (ELIQUIS) 5 mg tab(s) Take 1 tablet by mouth two times a day. metoprolol tartrate, short acting, (LOPRESSOR) 50 mg tablet Take 1 tablet by mouth two times a day. amLODIPine (NORVASC) 5 mg tablet Take 1 tablet by mouth once daily. cyclobenzaprine (FLEXERIL) 10 mg tablet Take 1 tablet by mouth twice daily as needed for muscle spasm. No current facility-administered medications for this visit. PHYSICAL EXAM: There were no vitals taken for this visit. There is no height or weight on file to calculate BMI. General: Well masculinized, well nourished male Psych: euthymic, NAD Neuro: A&Ox3 Inguinal: No lesions, adenopathy, or hernias examination deferred FOLLOW UP: Virtual follow-up in 3 days Devin Cortes M.D, MS Associate Staff [facility] documented in this encounter [facility] 02-27-2024 Nurse Note Pt here for injection of Eligard. Given SQ in LQ. Pt tolerated well. For all other information regarding today, see today's OV note with Dr Payne. Pt observed for 15 min for signs and symptoms of adverse reaction. None noted. Kathia Del Angel LPN [facility] 02-27-2024 Nurse Note Pt here for injection of Eligard. Given SQ in LQ. Pt tolerated well. For all other information regarding today, see today's OV note with Dr Payne. Pt observed for 15 min for signs and symptoms of adverse reaction. None noted. Kathia Del Angel LPN documented in this encounter [facility] 02-27-2024 Note HNO ID: [id number] Author: JOHAN PAYNE MD Service: ? Author Type: Physician Type: Progress Notes Filed: 02/27/2024 12:06 Note Text: (Elements copied from my note dated February 13, 2024, have been reviewed and updated where appropriate, and all reflect current assessment and medical decision making from today's encounter, February 27, 2024) HISTORY OF PRESENT ILLNESS: Clint Villar is a 83 year old male in excellent health had a cologuard come back positive. A colonography CT scan was done that showed retroperitoneal adenopathy, enlarged prostate gland and possible rectal mass. Colonoscopy was negative for rectal mass. Saw urology PSA 73.59 (was 71 in January 2023). Prostate enlarged and firm. Biopsy of prostate is planned for mid January. 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 Reviewed case also with Dr Aguilar. Met in follow up, reviewed prostate biopsy shows adenocarcinoma. Bone scan focally positive. CLINICAL IMPRESSION: Elevated PSA Enlarged and firm prostate Retroperitoneal adenopathy Prostate cancer on biopsy RECOMMENDATION/PLAN: 1. begin GnRH agonist with casodex bridge. 2. Follow up with urology. ?need for ureteral stent for hydronephrosis seen on CT scan 3. Appointment with rad onc when feasible 4. Back in 6 weeks with PSA Written and verbal health teaching given to patient, patient verbalizes understanding and agrees with treatment plan. 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 PAST SURGICAL HISTORY 2004: OPEN REPAIR OF ROTATOR CUFF ACUTE; Right Comment: Rotator cuff repair, right 1950s: TONSILLECTOMY PRIMARY/SECONDARY Comment: Tonsillectomy FAMILY HISTORY Problem Relation Age of Onset other (Other) Mother no contact Coronary Artery Disease Father Heart Failure Father Diabetes Father Cancer Paternal Grandfather Cancer Half-brother Social History Tobacco Use Smoking status: Former Types: Cigarettes Smokeless tobacco: Never Tobacco comments: Pt smoked 1 pack daily x 20 years, Vaping Use Vaping status: Never Used Substance Use Topics Alcohol use: Yes Alcohol/week: 1.0 standard drink of alcohol Types: 1 Cans of beer per week Drug use: Never ALLERGIES: ALLERGIES No Known Allergies CURRENT OUTPATIENT MEDICATIONS: levothyroxine (SYNTHROID) 112 mcg tablet Take 1 tablet by mouth once daily. Take on empty stomach. For thyroid finasteride (PROSCAR) 5 mg tablet Take 1 tablet by mouth once daily apixaban (ELIQUIS) 5 mg tab(s) Take 1 tablet by mouth two times a day. metoprolol tartrate, short acting, (LOPRESSOR) 50 mg tablet Take 1 tablet by mouth two times a day. amLODIPine (NORVASC) 5 mg tablet Take 1 tablet by mouth once daily. hydrOXYzine HCl (ATARAX) 25 mg tablet Take 1 tablet by mouth daily at bedtime. losartan (COZAAR) 100 mg tablet Take 1 tablet by mouth once daily. valACYclovir (VALTREX) 500 mg tablet Take 1 tablet by mouth once daily. atorvastatin (LIPITOR) 40 mg tablet Take 1 tablet by mouth daily at bedtime. tamsulosin (FLOMAX) 0.4 mg Take 2 capsules by mouth daily at bedtime. cyclobenzaprine (FLEXERIL) 10 mg tablet Take 1 tablet by mouth twice daily as needed for muscle spasm. levoFLOXacin (LEVAQUIN) 750 mg tablet Take 1 tablet by mouth once daily. Start the day before the biopsy REVIEW OF SYSTEMS: GENERAL: No fever, night sweats, weight loss or malaise. All other reviewed and negative other than HPI. PHYSICAL EXAMINATION: VITAL SIGNS: BP 159/69 Pulse 44 Temp (Src) 97.4 (Temporal) Ht 5' 5.5 (1.66m) Wt 212 lb 8 oz (96.4kg) SpO2 97% BMI 34.81 kg/(m2). GENERAL APPEARANCE: Well appearing, in no acute distress, alert and oriented x3, well-hydrated, well nourished. I spent a total of 30 minutes on the date of the service which included preparing to see the patient, [id number] patient care, completing clinical documentation, obtaining and/or revi (more content not included)... [facility] 02-27-2024 History of Present illness Narrative (Elements copied from my note dated February 13, 2024, have been reviewed and updated where appropriate, and all reflect current assessment and medical decision making from today's encounter, February 27, 2024) HISTORY OF PRESENT ILLNESS: Clint Villar is a 83 year old male in excellent health had a cologuard come back positive. A colonography CT scan was done that showed retroperitoneal adenopathy, enlarged prostate gland and possible rectal mass. Colonoscopy was negative for rectal mass. Saw urology PSA 73.59 (was 71 in January 2023). Prostate enlarged and firm. Biopsy of prostate is planned for mid January. 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 Reviewed case also with Dr Aguilar. Met in follow up, reviewed prostate biopsy shows adenocarcinoma. Bone scan focally positive. CLINICAL IMPRESSION: Elevated PSA Enlarged and firm prostate Retroperitoneal adenopathy Prostate cancer on biopsy RECOMMENDATION/PLAN: 1. begin GnRH agonist with casodex bridge. 2. Follow up with urology. ?need for ureteral stent for hydronephrosis seen on CT scan 3. Appointment with rad onc when feasible 4. Back in 6 weeks with PSA Written and verbal health teaching given to patient, patient verbalizes understanding and agrees with treatment plan. 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 PAST SURGICAL HISTORY 2004: OPEN REPAIR OF ROTATOR CUFF ACUTE; Right Comment: Rotator cuff repair, right 1950s: TONSILLECTOMY PRIMARY/SECONDARY <AGE 14 Comment: Tonsillectomy FAMILY HISTORY Problem Relation Age of Onset other (Other) Mother no contact Coronary Artery Disease Father Heart Failure Father Diabetes Father Cancer Paternal Grandfather Cancer Half-brother Social History Tobacco Use Smoking status: Former Types: Cigarettes Smokeless tobacco: Never Tobacco comments: Pt smoked 1 pack daily x 20 years, Vaping Use Vaping status: Never Used Substance Use Topics Alcohol use: Yes Alcohol/week: 1.0 standard drink of alcohol Types: 1 Cans of beer per week Drug use: Never ALLERGIES: ALLERGIES No Known Allergies CURRENT OUTPATIENT MEDICATIONS: levothyroxine (SYNTHROID) 112 mcg tablet Take 1 tablet by mouth once daily. Take on empty stomach. For thyroid finasteride (PROSCAR) 5 mg tablet Take 1 tablet by mouth once daily apixaban (ELIQUIS) 5 mg tab(s) Take 1 tablet by mouth two times a day. metoprolol tartrate, short acting, (LOPRESSOR) 50 mg tablet Take 1 tablet by mouth two times a day. amLODIPine (NORVASC) 5 mg tablet Take 1 tablet by mouth once daily. hydrOXYzine HCl (ATARAX) 25 mg tablet Take 1 tablet by mouth daily at bedtime. losartan (COZAAR) 100 mg tablet Take 1 tablet by mouth once daily. valACYclovir (VALTREX) 500 mg tablet Take 1 tablet by mouth once daily. atorvastatin (LIPITOR) 40 mg tablet Take 1 tablet by mouth daily at bedtime. tamsulosin (FLOMAX) 0.4 mg Take 2 capsules by mouth daily at bedtime. cyclobenzaprine (FLEXERIL) 10 mg tablet Take 1 tablet by mouth twice daily as needed for muscle spasm. levoFLOXacin (LEVAQUIN) 750 mg tablet Take 1 tablet by mouth once daily. Start the day before the biopsy REVIEW OF SYSTEMS: GENERAL: No fever, night sweats, weight loss or malaise. All other reviewed and negative other than HPI. PHYSICAL EXAMINATION: VITAL SIGNS: BP 159/69 Pulse 44 Temp (Src) 97.4 (Temporal) Ht 5' 5.5 (1.66m) Wt 212 lb 8 oz (96.4kg) SpO2 97% BMI 34.81 kg/(m^2). GENERAL APPEARANCE: Well appearing, in no acute distress, alert and oriented x3, well-hydrated, well nourished. I spent a total of 30 minutes on the date of the service which included preparing to see the patient, [id number] patient care, completing clinical documentation, obtaining and/or reviewing separately obtained history, counseling and educating the patient/family/caregiver, ordering medications, tests, or procedures, communicating with other HCPs (not separately reported), independently interpreting results (not separately reported), and communicating results to the patient/family/caregiver. Electronically Signed: Johan Payne MD February 27, 2024 documented in this encounter [facility] 02-26-2024 History of Present illness Narrative This note was created using [email or web address]. Subjective Patient presents with: Fatigue Immunizations: Flu vaccination Clint Villar is a 83 year old male. He was ill with vague abdominal pain, weakness, and loss of appetite 2 weeks ago. He denied cold or flu like symptoms. He was not able to return to work due to weakness. Abdominal discomfort and loss of appetite resolved, but fatigue continues. He was diagnosed with prostate cancer metastatic with retroperitoneal lymph nodes and moderate right hydroureteronephrosis . Colonoscopy was negative for rectal mass. He was scheduled to see urology and there were discussion about a ureteral stent. Review of Systems Constitutional: Positive for appetite change, fatigue and unexpected weight change. Negative for chills, diaphoresis and fever. HENT: Negative for congestion and sore throat. Respiratory: Negative for cough and shortness of breath. Cardiovascular: Positive for leg swelling. Negative for chest pain and palpitations. Gastrointestinal: Negative for abdominal distention, blood in stool, constipation, diarrhea, nausea and vomiting. Genitourinary: Positive for decreased urine volume. Negative for dysuria and hematuria. Neurological: Negative for dizziness and headaches. 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 Htn (Hypertension) Hyperlipidemia Hypothyroidism Herpes Infection Muscle Spasm of Back Impaired Fasting Glucose Erectile Dysfunction Urinary Frequency Anemia Elevated Psa Obesity, Class I, Bmi 30-34.9 Paroxysmal Atrial Fibrillation (Hcc) At Risk for Stroke Anticoagulant Long-Term Use Peripheral Vascular Disease, Unspecified (Hcc) Prostate Cancer (Hcc) Obstructive Uropathy PAST SURGICAL HISTORY Procedure Laterality Date COLONOSCOPY - DIAGNOSTIC 12/18/2023 OPEN REPAIR OF ROTATOR CUFF ACUTE Right 2005 Rotator cuff repair, right PROSTATE BIOPSY W/TRANSRECTAL US 01/26/2024 TONSILLECTOMY PRIMARY/SECONDARY <AGE 14 1950s Tonsillectomy Social History Tobacco Use Smoking status: Former Types: Cigarettes Smokeless tobacco: Never Tobacco comments: Pt smoked 1 pack daily x 14 years, quit in 1965 Vaping Use Vaping status: Never Used Substance Use Topics Alcohol use: Yes Alcohol/week: 1.0 standard drink of alcohol Types: 1 Cans of beer per week Drug use: Never Current Outpatient Medications Medication Sig bicalutamide (CASODEX) 50 mg tablet Take 1 tablet by mouth once daily. Take for 10 days starting when you get lupron injection hydrOXYzine HCl (ATARAX) 25 mg tablet Take 1 tablet by mouth daily at bedtime. losartan (COZAAR) 100 mg tablet Take 1 tablet by mouth once daily. atorvastatin (LIPITOR) 40 mg tablet Take 1 tablet by mouth daily at bedtime. tamsulosin (FLOMAX) 0.4 mg Take 2 capsules by mouth daily at bedtime. levothyroxine (SYNTHROID) 112 mcg tablet Take 1 tablet by mouth once daily. Take on empty stomach. For thyroid finasteride (PROSCAR) 5 mg tablet Take 1 tablet by mouth once daily apixaban (ELIQUIS) 5 mg tab(s) Take 1 tablet by mouth two times a day. metoprolol tartrate, short acting, (LOPRESSOR) 50 mg tablet Take 1 tablet by mouth two times a day. amLODIPine (NORVASC) 5 mg tablet Take 1 tablet by mouth once daily. cyclobenzaprine (FLEXERIL) 10 mg tablet Take 1 tablet by mouth twice daily as needed for muscle spasm. valACYclovir (VALTREX) 500 mg tablet Take 1 tablet by mouth once daily. No current facility-administered medications for this visit. Objective BP 136/75 (BP Site: Left Arm, BP Position: Sitting, BP Cuff Size: Large Adult) Pulse (!) 51 Temp 36.6 C (97.8 F) (Temporal) Wt 89.4 kg (197 lb 1.5 oz) BMI 32.30 kg/m Physical Exam Constitutional: General: He is not in acute distress. Appearance: He is not ill-appearing or diaphoretic. HENT: Head: Normocephalic. Nose: No congestion or rhinorrhea. Mouth/Throat: Mouth: Mucous membranes are moist. Pharynx: Oropharynx is clear. No oropharyngeal exudate. Eyes: General: No scleral icterus. Conjunctiva/sclera: Conjunctivae normal. Cardiovascular: Rate and Rhythm: Bradycardia present. Rhythm irregular. Heart sounds: No murmur heard. No gallop. Pulmonary: Effort: No respiratory distress. Breath sounds: Normal breath sounds. No wheezing or rales. Abdominal: General: There is no distension. Palpations: Abdomen is soft. There is no mass. Tenderness: There is no abdominal tenderness. There is no right CVA tenderness or left CVA tenderness. Musculoskeletal: General: No tenderness. Right lower leg: No edema. Left lower le+ Pitting Edema present. Lymphadenopathy: Cervical: No cervical adenopathy. Neurological: General: No focal deficit present. Mental Status: He is alert. Gait: Gait normal. Assessment and Plan 1. Fatigue, unspecified type - ICD9: 780.79, ICD10: R53.83 (primary diagnosis) Etiology not clear. - COMPLETE BLOOD COUNT - COMPREHENSIVE METABOLIC PANEL 2. Herpes infection - ICD9: 054.9, ICD10: B00.9 Controlled. Refilled. - VALACYCLOVIR 500 MG TABLET 3. Need for influenza vaccination - ICD9: V04.81, ICD10: Z23 - INFLUENZA VACCINE, PRSV FREE, AGE 65+ YR, HIGH DOSE, TRIVALENT (FLUZONE HIGH-DOSE) 4. Prostate cancer (HCC) - ICD9: 185, ICD10: C61 Recent diagnosis. He is seeing urology and oncology. - URINALYSIS, WITH MICROSCOPIC 5. Anemia, unspecified type - ICD9: 285.9, ICD10: D64.9 - COMPLETE BLOOD COUNT 6. Hypothyroidism, unspecified type - ICD9: 244.9, ICD10: E03.9 - continue current dose of Synthroid. - THYROID STIMULATING HORMONE 7. Obstructive uropathy - ICD9: 599.60, ICD10: N13.9 - To see urology. Cody Carrington MD documented in this encounter [facility] 02-26-2024 Telephone encounter Note Called placed to pt this date to discuss paperwork needs. Voicemail left for pt this date with direct call back number. NATE Bocanegra [facility] 02-26-2024 Miscellaneous Notes Called placed to pt this date to discuss paperwork needs. Voicemail left for pt this date with direct call back number. NATE Bocanegra Patient called requesting a note to return to work and FMLA paperwork Patient can be reached at [phone] Please advise documented in this encounter [facility] 02-25-2024 Telephone encounter Note Patient called requesting a note to return to work and FMLA paperwork Patient can be reached at [phone] [facility] Work Phone: 02-20-2024 Telephone encounter Note The patient is active with [employer] along with Medicare A & B. The patient's financial responsibility should be $0 for each treatment in 2023 once the OOP has been reached. The patient's primary insurance is expected to pay the first 80% of the financial responsibility and the secondary insurance is expected to pay the remaining 20%. The patient does not have a cancer diagnosis or a chemo/radiation regimen. I did call the patient to do a cost facit because the patient is diagnosed with Prostate Cancer(C61). I spoke with the patient's Susanne who stated her had Covid and is extremely weak and was having a bone scan. She did help me complete a cost facit to see if there was anything else I could assist them with. [facility] 02-20-2024 Miscellaneous Notes The patient is active with [employer] along with Medicare A & B. The patient's financial responsibility should be $0 for each treatment in 2023 once the OOP has been reached. The patient's primary insurance is expected to pay the first 80% of the financial responsibility and the secondary insurance is expected to pay the remaining 20%. The patient does not have a cancer diagnosis or a chemo/radiation regimen. I did call the patient to do a cost facit because the patient is diagnosed with Prostate Cancer(C61). I spoke with the patient's Susanne who stated her had Covid and is extremely weak and was having a bone scan. She did help me complete a cost facit to see if there was anything else I could assist them with. documented in this encounter [facility] 02-20-2024 History of Present illness Narrative RADIOLOGY SERVICE PROGRESS NOTE SERVICE DATE: 02/20/2024 SERVICE TIME: 12:25 PM PATIENT IDENTITY VERIFICATION COMPLETED USING TWO (2) STANDARD IDENTIFIERS: Name and Date of confirmed by patient verbally FALL SCREENING: Has the patient had 2 falls in the last year or 1 fall with injury or currently using an Ambulatory Assistive Device (Walker, Cane, Wheelchair, Crutches, etc.)? No PATIENT GENDER DATA: .male ALLERGIES: Reviewed and unchanged MEDICATIONS REVIEWED: No PATIENT RELEVANT IMPLANT DATA REVIEWED: Not Applicable PATIENT PRESENTS WITH AN IMPLANTABLE OR ATTACHED DRIER AND EVAPORATOR OPERATOR: n/a CREATININE: Creatinine Date Value Ref Range Status 10/22/2023 1.03 0.73 - 1.22 mg/dL Final 07/18/2023 1.04 0.73 - 1.22 mg/dL Final 01/03/2023 1.07 0.73 - 1.22 mg/dL Final Estimated Glomerular Filtration Rate Date Value Ref Range Status 10/22/2023 73 >=60 mL/min/1.73m Final Comment: Estimated Glomerular Filtration Rate (eGFR) is calculated using the 2020 CKD-EPI creatinine equation. This equation utilizes serum creatinine, sex, and age as parameters. The creatinine assay has traceable calibration to isotope dilution-mass spectrometry. Refer to KDIGO guidelines for clinical interpretation. In patients with unstable renal function, e.g. those with acute kidney injury, the eGFR may not accurately reflect actual GFR. eGFR- Date Value Ref Range Status 07/12/2020 >60 Final P.O.C.T. RESULTS: N/A February 20, [address] PERFORMED: No IV SITE: Ambulatory: A peripheral IV was started in the Right antecubital site with a Angio cath: 24 gauge. POST EXAM PIV STATUS: Discontinued PROCEDURE TYPE: NM INJECT: Whole Body Bone Scan. 22.3 mCi Tc99m MDP. No other medications given.. ADMINISTRATION TIME: 12:32 PATIENT DISCHARGED TO: Ambulatory patient, left [place] department area. A Diagnostic radioactive procedure has taken place, with no further precautions necessary other than routine body substance precautions. More information regarding radiation safety can be found using this link: [email or web address] SIGNATURE: RT Aldo(Miriam) PATIENT NAME: Clint Villar DATE: February 20, 2024 TIME: 12:36 PM PAGER/CONTACT #: documented in this encounter [facility] 02-13-2024 History of Present illness Narrative (Elements copied from my note dated January 02, 2024, have been reviewed and updated where appropriate, and all reflect current assessment and medical decision making from today's encounter, February 13, 2024) HISTORY OF PRESENT ILLNESS: Clint Villar is a 83 year old male in excellent health had a cologuard come back positive. A colonography CT scan was done that showed retroperitoneal adenopathy, enlarged prostate gland and possible rectal mass. Colonoscopy was negative for rectal mass. Saw urology PSA 73.59 (was 71 in January 2023). Prostate enlarged and firm. Biopsy of prostate is planned for mid January. 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 Reviewed case also with Dr Aguilar. Met in follow up, reviewed prostate biopsy shows adenocarcinoma. CLINICAL IMPRESSION: Elevated PSA Enlarged and firm prostate Retroperitoneal adenopathy Prostate cancer on biopsy RECOMMENDATION/PLAN: 1. Will complete staging with bone scan 2. Plan GnRH agonist with casodex bridge. 3. Follow up with urology. ?need for ureteral stent for hydronephrosis seen on CT scan Written and verbal health teaching given to patient, patient verbalizes understanding and agrees with treatment plan. 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 PAST SURGICAL HISTORY 2004: OPEN REPAIR OF ROTATOR CUFF ACUTE; Right Comment: Rotator cuff repair, right 1950s: TONSILLECTOMY PRIMARY/SECONDARY <AGE 14 Comment: Tonsillectomy FAMILY HISTORY Problem Relation Age of Onset other (Other) Mother no contact Coronary Artery Disease Father Heart Failure Father Diabetes Father Cancer Paternal Grandfather Cancer Half-brother Social History Tobacco Use Smoking status: Former Types: Cigarettes Smokeless tobacco: Never Tobacco comments: Pt smoked 1 pack daily x 20 years, Vaping Use Vaping status: Never Used Substance Use Topics Alcohol use: Yes Alcohol/week: 1.0 standard drink of alcohol Types: 1 Cans of beer per week Drug use: Never ALLERGIES: ALLERGIES No Known Allergies CURRENT OUTPATIENT MEDICATIONS: levothyroxine (SYNTHROID) 112 mcg tablet Take 1 tablet by mouth once daily. Take on empty stomach. For thyroid finasteride (PROSCAR) 5 mg tablet Take 1 tablet by mouth once daily apixaban (ELIQUIS) 5 mg tab(s) Take 1 tablet by mouth two times a day. metoprolol tartrate, short acting, (LOPRESSOR) 50 mg tablet Take 1 tablet by mouth two times a day. amLODIPine (NORVASC) 5 mg tablet Take 1 tablet by mouth once daily. hydrOXYzine HCl (ATARAX) 25 mg tablet Take 1 tablet by mouth daily at bedtime. losartan (COZAAR) 100 mg tablet Take 1 tablet by mouth once daily. valACYclovir (VALTREX) 500 mg tablet Take 1 tablet by mouth once daily. atorvastatin (LIPITOR) 40 mg tablet Take 1 tablet by mouth daily at bedtime. tamsulosin (FLOMAX) 0.4 mg Take 2 capsules by mouth daily at bedtime. cyclobenzaprine (FLEXERIL) 10 mg tablet Take 1 tablet by mouth twice daily as needed for muscle spasm. levoFLOXacin (LEVAQUIN) 750 mg tablet Take 1 tablet by mouth once daily. Start the day before the biopsy REVIEW OF SYSTEMS: GENERAL: No fever, night sweats, weight loss or malaise. All other reviewed and negative other than HPI. PHYSICAL EXAMINATION: VITAL SIGNS: BP 159/69 Pulse 44 Temp (Src) 97.4 (Temporal) Ht 5' 5.5 (1.66m) Wt 212 lb 8 oz (96.4kg) SpO2 97% BMI 34.81 kg/(m^2). GENERAL APPEARANCE: Well appearing, in no acute distress, alert and oriented x3, well-hydrated, well nourished. I spent a total of 30 minutes on the date of the service which included preparing to see the patient, [id number] patient care, completing clinical documentation, obtaining and/or reviewing separately obtained history, counseling and educating the patient/family/caregiver, ordering medications, tests, or procedures, communicating with other HCPs (not separately reported), independently interpreting results (not separately reported), and communicating results to the patient/family/caregiver. Electronically Signed: Johan Payne MD February 13, 2024 documented in this encounter [facility] 01-26-2024 Instructions Devin Cortes MD - 01/26/2024 1:40 PM EDT AFTER YOUR PROSTATE BIOPSY You have undergone a transrectal prostate biopsy. Your doctor has taken small samples of prostatic tissue through the rectal wall. These samples will be sent to the lab to be studied by a pathologist. WHAT TO EXPECT * A small amount of blood may be noted in your urine and stool for up to 1-2 weeks and semen up to 6 weeks. WHAT TO DO * Resume normal activity and medications (avoid aspirin, motrin and aleve for 3 days). Tylenol is ok to take. * Drink 6-8 glasses of fluid each day for 3 days to help flush your urinary system. * Soak in a warm tub bath for 20 minutes if you experience rectal soreness. MEDICATIONS * If an antibiotic is prescribed, take it until ALL the medication is gone. (If you miss a dose, continue when you remember and finish the medication completely.) * Other medication instructions: As prescribed. WHEN TO CALL THE DOCTOR * If you have a fever over 100* Fahrenheit. * If you are unable to urinate. * If blood clots form in your urine. * If your urine becomes very bloody and does not clear with drinking extra fluids. Between the hours of 8:30 AM and 4:30 PM call our office: at [phone] [place] Office [phone] [place] Office After 5 PM and on weekends: Call [phone] or [phone] and ask for the urologist medical sonographer. The doctor will need to know that you have had a prostate biopsy and what symptoms you are having. documented in this encounter [facility] 01-26-2024 History of Present illness Narrative Images from the original note were not included. [facility] UROLOGY OUTPATIENT PROCEDURE NOTE UROL [place] MOB TRANSRECTAL ULTRASOUND OF PROSTATE UNIVERSAL PROTOCOL AND SAFETY CHECKLIST Procedure to be Performed: TRUS/biopsy PROCEDURE DATE: January 26, 2024 Sign In: A Moment of CARE was completed. Personnel directly involved with the procedure wore the appropriate PPE (Personal Protective Equipment). Patient/Surrogate Stated/Verified: PATIENT VERIFIED(optional for EMERGENT procedures): Patient name, Date of , Relevant allergies and The intended procedure Time Out Communication: Intended patient and procedure match the source documents. Consent documented and matches the intended procedure. Sign Out: SIGN OUT (optional for EMERGENT procedures): All specimen containers correctly labeled. Procedure description: The patient was placed in the lateral decubitus position. Digital rectal exam was abnormal, nodular. The ultrasound probe was placed into the rectum and the prostate visualized. Approximately five cc plain lidocaine was injected bilaterally into the perioprostatic nerves. The prostate was visualized in sagittal and transverse planes and no hypoechoic lesion identified. The total prostate volume was 59.9 gm Ultrasound was used for needle guidance for prostate biopsies. The patient underwent biopsy removing 12 total cores. Complications: None Sign Out Details of Procedure: Listed Above Sign Out Discussion: Completed Pre-procedure Diagnosis: elevated PSA, prostate nodularity Post-procedure Diagnosis: same Follow-up: Will call with results of path Devin Cortes MD, MS Associate Staff [facility] [place] documented in this encounter [facility] 01-14-2024 Telephone encounter Note Spoke with patient's spouse, advising below, and she stated understanding. Shanthi Santillan [facility] 01-14-2024 Miscellaneous Notes Spoke with patient's spouse, advising below, and she stated understanding. Shanthi Santillan Dr. Payne is ok with follow up on 02/13/24. Chelsea Fortuen, RN Patient called to inform office that [facility] moved his biopsy out to 01/25. He called to reschedule his 01/22 office visit to go over results. First avail is 02/12. Informed patient we would tentatively schedule for that date and would have provider inform if patient can/should be seen sooner. Patient aware Dr. Payne is out of office today. Please advise. documented in this encounter [facility] 01-13-2024 Telephone encounter Note Patient has been identified by name and date of : Yes Patient phones for refill(s): Requested Prescriptions Pending Prescriptions Disp Refills hydrOXYzine HCl (ATARAX) 25 mg tablet 90 tablet 3 Sig: Take 1 tablet by mouth daily at bedtime. losartan (COZAAR) 100 mg tablet 90 tablet 3 Sig: Take 1 tablet by mouth once daily. atorvastatin (LIPITOR) 40 mg tablet 90 tablet 3 Sig: Take 1 tablet by mouth daily at bedtime. tamsulosin (FLOMAX) 0.4 mg 180 capsule 3 Sig: Take 2 capsules by mouth daily at bedtime. Date of last office visit in primary care: 10/24/2023 Date of next office visit in primary care: 04/23/2024 Please advise. Thank you. Leila Antonio LPN. [facility] 01-13-2024 Miscellaneous Notes Patient has been identified by name and date of : Yes Patient phones for refill(s): Requested Prescriptions Pending Prescriptions Disp Refills hydrOXYzine HCl (ATARAX) 25 mg tablet 90 tablet 3 Sig: Take 1 tablet by mouth daily at bedtime. losartan (COZAAR) 100 mg tablet 90 tablet 3 Sig: Take 1 tablet by mouth once daily. atorvastatin (LIPITOR) 40 mg tablet 90 tablet 3 Sig: Take 1 tablet by mouth daily at bedtime. tamsulosin (FLOMAX) 0.4 mg 180 capsule 3 Sig: Take 2 capsules by mouth daily at bedtime. Date of last office visit in primary care: 10/24/2023 Date of next office visit in primary care: 04/23/2024 Please advise. Thank you. Leila Antonio LPN. documented in this encounter [facility] 01-13-[address] Payne is ok with follow up on 02/13/24. Chelsea Fortune RN [facility] Work Phone: 01-12-2024 Telephone encounter Note Patient called to inform office that [facility] moved his biopsy out to 01/25. He called to reschedule his 01/22 office visit to go over results. First avail is 02/12. Informed patient we would tentatively schedule for that date and would have provider inform if patient can/should be seen sooner. Patient aware Dr. Payne is out of office today. Please advise. [facility] Work Phone: 01-02-2024 History of Present illness Narrative HISTORY OF PRESENT ILLNESS: Clint Villar is a 83 year old male in excellent health had a cologuard come back positive. A colonography CT scan was done that showed retroperitoneal adenopathy, enlarged prostate gland and possible rectal mass. Colonoscopy was negative for rectal mass. Saw urology PSA 73.59 (was 71 in January 2023). Prostate enlarged and firm. Biopsy of prostate is planned for mid January. 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 Reviewed case also with Dr Aguilar CLINICAL IMPRESSION: Elevated PSA Enlarged and firm prostate Retroperitoneal adenopathy RECOMMENDATION/PLAN: 1. Will re convene after biopsy to ascertain diagnosis. 2. Likely complete staging with bone scan 3. Plan GnRH agonist with casodex bridge 4. Plan RT evaluation as well if limited bone mets Written and verbal health teaching given to patient, patient verbalizes understanding and agrees with treatment plan. 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 PAST SURGICAL HISTORY 2005: OPEN REPAIR OF ROTATOR CUFF ACUTE; Right Comment: Rotator cuff repair, right 1950s: TONSILLECTOMY PRIMARY/SECONDARY <AGE 14 Comment: Tonsillectomy FAMILY HISTORY Problem Relation Age of Onset other (Other) Mother no contact Coronary Artery Disease Father Heart Failure Father Diabetes Father Cancer Paternal Grandfather Cancer Half-brother Social History Tobacco Use Smoking status: Former Types: Cigarettes Smokeless tobacco: Never Tobacco comments: Pt smoked 1 pack daily x 20 years, Vaping Use Vaping status: Never Used Substance Use Topics Alcohol use: Yes Alcohol/week: 1.0 standard drink of alcohol Types: 1 Cans of beer per week Drug use: Never ALLERGIES: ALLERGIES No Known Allergies CURRENT OUTPATIENT MEDICATIONS: levothyroxine (SYNTHROID) 112 mcg tablet Take 1 tablet by mouth once daily. Take on empty stomach. For thyroid finasteride (PROSCAR) 5 mg tablet Take 1 tablet by mouth once daily apixaban (ELIQUIS) 5 mg tab(s) Take 1 tablet by mouth two times a day. metoprolol tartrate, short acting, (LOPRESSOR) 50 mg tablet Take 1 tablet by mouth two times a day. amLODIPine (NORVASC) 5 mg tablet Take 1 tablet by mouth once daily. hydrOXYzine HCl (ATARAX) 25 mg tablet Take 1 tablet by mouth daily at bedtime. losartan (COZAAR) 100 mg tablet Take 1 tablet by mouth once daily. valACYclovir (VALTREX) 500 mg tablet Take 1 tablet by mouth once daily. atorvastatin (LIPITOR) 40 mg tablet Take 1 tablet by mouth daily at bedtime. tamsulosin (FLOMAX) 0.4 mg Take 2 capsules by mouth daily at bedtime. cyclobenzaprine (FLEXERIL) 10 mg tablet Take 1 tablet by mouth twice daily as needed for muscle spasm. levoFLOXacin (LEVAQUIN) 750 mg tablet Take 1 tablet by mouth once daily. Start the day before the biopsy REVIEW OF SYSTEMS: GENERAL: No fever, night sweats, weight loss or malaise. All other reviewed and negative other than HPI. PHYSICAL EXAMINATION: VITAL SIGNS: BP 159/69 Pulse 44 Temp (Src) 97.4 (Temporal) Ht 5' 5.5 (1.66m) Wt 212 lb 8 oz (96.4kg) SpO2 97% BMI 34.81 kg/(m^2). GENERAL APPEARANCE: Well appearing, in no acute distress, alert and oriented x3, well-hydrated, well nourished. I spent a total of 60 minutes on the date of the service which included preparing to see the patient, [id number] patient care, completing clinical documentation, obtaining and/or reviewing separately obtained history, counseling and educating the patient/family/caregiver, ordering medications, tests, or procedures, communicating with other HCPs (not separately reported), independently interpreting results (not separately reported), and communicating results to the patient/family/caregiver. Electronically Signed: Johan Payne MD January 02, 2024 1:05 PM documented in this encounter [facility] 12-31-2023 History of Present illness Narrative Images from the original note were not included. [facility] ESTABLISHED PATIENT NOTE UROL [facility] PATIENT: Clint Villar (83 year old) PCP: Cody Carrington MD CHIEF COMPLAINT: Elevated PSA HISTORY OF PRESENT ILLNESS: Clint Villar is a 83 year old male with a recent history of elevated PSA who presents for a follow-up evaluation. Last seen by Robert Toscano PA-C in February 2023. Patient also complains of having some voiding dysfunction, specifically inability to fully empty his bladder, frequency, urgency, weakness of stream. He has been on finasteride for at least the past 6 months and tamsulosin for the last few years. See IPSS scores below. FAMILY Hx OF MALIGNANCY: No INTERNATIONAL PROSTATE SYMPTOM SCORE (I-PSS) 1)INCOMPLETE EMPTYING Over the past month, how often have you had a sensation of not emptying your bladder completely after you finished urinating? SCORE: 5- Almost always 2)FREQUENCY Over the past month, how often have you had to urinate again less than two hours after you finished urinating? SCORE: 5- Almost always 3)INTERMITTENCY Over the past month, how often have you found you stopped and started again several times when you urinated? SCORE: 5- Almost always 4)URGENCY Over the past month, how often have you found it difficult to postpone urination? SCORE: 5- Almost always 5)WEAK STREAM Over the past month, how often have you had a weak stream? SCORE: 5- Almost always 6)STRAINING Over the past month, how often have you had to push or strain to begin urination SCORE: 5- Almost always 7)NOCTURIA Over the past month, how many times did you most typically get up to urinate from the time you went to bed at night until the time you get up in the morning? SCORE:4 TOTAL I-PSS SCORE: 34 QUALITY OF LIFE DUE TO URINARY SYMPTOMS If you were to spend the rest of yur life with your urinary condition just the way it is now, how would you feel about that? 4- Mostly dissatisfied LAB DATA: PSA (ng/mL) Date Value 10/22/2023 73.59 01/03/2023 71.22 IsoPSA (no units) Date Value 02/04/2023 0 Creatinine Date Value Ref Range Status 10/22/2023 1.03 0.73 - 1.22 mg/dL Final 07/18/2023 1.04 0.73 - 1.22 mg/dL Final 01/03/2023 1.07 0.73 - 1.22 mg/dL Final 07/06/2022 1.09 0.73 - 1.22 mg/dL Final OFFICE DATA: POST-VOID RESIDUAL BLADDER VOLUME: 182 cc, empties poorly URINE POC GLUCOSE UA (POCT) Negative 12/31/2023 BILIRUBIN UA (POCT) Negative 12/31/2023 KETONE UA (POCT) Negative 12/31/2023 SPECIFIC GRAVITY UA (POCT) 1.015 12/31/2023 HEMOGLOBIN/BLOOD UA (POCT) Negative 12/31/2023 PH UA (POCT) 7.0 12/31/2023 PROTEIN UA (POCT) Negative 12/31/2023 UROBILINOGEN UA (POCT) 0.2 12/31/2023 NITRITE UA (POCT) Negative 12/31/2023 LEUKOCYTES UA (POCT) Negative 12/31/2023 COLOR UA (POCT) Yellow 12/31/2023 CLARITY UA (POCT) Clear 12/31/2023 REVIEW OF SYSTEMS: Reviewed and otherwise non-contributory. HISTORY: PAST MEDICAL HISTORY 03/08/2014: Allergic contact dermatitis due to multiple agents 10/21/2023: Anticoagulant long-term use 10/21/2023: At risk for stroke No date: Atrial fibrillation (HCC) 07/03/2020: COVID-19 virus infection No date: Dizziness and giddiness 01/09/2023: Elevated PSA 05/23/2015: Herpes infection Comment: Breaks out in sacral area every 2-3 months. 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 PAST SURGICAL HISTORY 2005: OPEN REPAIR OF ROTATOR CUFF ACUTE; Right Comment: Rotator cuff repair, right 1950s: TONSILLECTOMY PRIMARY/SECONDARY <AGE 14 Comment: Tonsillectomy Social History Tobacco Use Smoking status: Former Current packs/day: 0.00 Average packs/day: 1 pack/day for 17.0 years (17.0 ttl pk-yrs) Types: Cigarettes Start date: 1960 Quit date: 1977 Years since quittin.5 Smokeless tobacco: Never Vaping Use Vaping status: Never Used Substance Use Topics Alcohol use: Yes Alcohol/week: 1.0 standard drink of alcohol Types: 1 Cans of beer per week Drug use: Never FAMILY HISTORY Problem Relation Age of Onset other (Other) Mother no contact Coronary Artery Disease Father Heart Failure Father Diabetes Father MEDICATIONS: Current Outpatient Medications Medication Sig levothyroxine (SYNTHROID) 112 mcg tablet Take 1 tablet by mouth once daily. Take on empty stomach. For thyroid finasteride (PROSCAR) 5 mg tablet Take 1 tablet by mouth once daily apixaban (ELIQUIS) 5 mg tab(s) Take 1 tablet by mouth two times a day. metoprolol tartrate, short acting, (LOPRESSOR) 50 mg tablet Take 1 tablet by mouth two times a day. amLODIPine (NORVASC) 5 mg tablet Take 1 tablet by mouth once daily. hydrOXYzine HCl (ATARAX) 25 mg tablet Take 1 tablet by mouth daily at bedtime. losartan (COZAAR) 100 mg tablet Take 1 tablet by mouth once daily. valACYclovir (VALTREX) 500 mg tablet Take 1 tablet by mouth once daily. atorvastatin (LIPITOR) 40 mg tablet Take 1 tablet by mouth daily at bedtime. tamsulosin (FLOMAX) 0.4 mg Take 2 capsules by mouth daily at bedtime. cyclobenzaprine (FLEXERIL) 10 mg tablet Take 1 tablet by mouth twice daily as needed for muscle spasm. levoFLOXacin (LEVAQUIN) 750 mg tablet Take 1 tablet by mouth once daily. Start the day before the biopsy No current facility-administered medications for this visit. PHYSICAL EXAMINATION: VITALS: Ht 170.2 cm (5' 7) Wt 95.3 kg (210 lb) BMI 32.89 kg/m GENERAL: alert, no distress, normal affect RESPIRATORY: normal effort ABDOMEN: soft, non-tender GENITOURINARY: Inguinal: No lesions, adenopathy, or hernias Phallus: normal, circumcised, no lesions Meatus: orthotopic, patent, no discharge Scrotum: no lesions, normal rugae Testes: Descended, nontender, and no masses bilaterally L: nl R:nl Epididymides: L nl R nl Vas deferens: palpable bilaterally Varicocele: none ANDREW: 40 to 50 g nodular, firm prostate. Prominent nodules noted at the left lateral position. EXTREMITIES: warm, no dependent edema, no malformations SKIN: no abnormal bruising, no rashes, no cyanosis NEUROLOGIC: normal gait, good manual dexterity, no paralysis ASSESSMENT/PLAN: 1. Elevated prostate specific antigen (PSA) - ICD9: 790.93, ICD10: R97.20 (primary diagnosis) -Discussed the implications of elevated PSA. Discussed possible causes of elevated, including BPH, prostatitis and prostate cancer. Talked about approaches which would include surveillance with PSA rechecks at regular intervals, MRI of prostate followed by biopsy, or standard TRUS Bx. I discussed the very strong probability that this patient has a form of prostate cancer. With iso-PSA being negative he is a low risk for intermediate or high-grade cancer, but still the presence of cancer is very high. I strongly suggested patient undergo prostate biopsy and he is agreeable. 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 -Patient also placed on periprocedural antibiotics. - PROSTATE BIOPSY GUKI 2. Nodular prostate with lower urinary tract symptoms - ICD9: 600.11, ICD10: N40.3 -As above. 3. Benign prostatic hyperplasia with incomplete bladder emptying - ICD9: 600.01, 788.21, ICD10: N40.1, R39.14 -For now remain on tamsulosin and finasteride. If patient will undergo a procedure to treat his likely prostate cancer, this may help to also treat his voiding dysfunction. Devin Cortes MD, MS Associate Staff Center for [facility] [place] Department of Urology [facility] [place] documented in this encounter [facility] 12-31-2023 Nurse Note Post void bladder scan completed. 182 ml residual remaining. Results reported to Dr. Cortes [facility] 12-31-2023 Nurse Note Post void bladder scan completed. 182 ml residual remaining. Results reported to Dr. Cortes documented in this encounter [facility] 12-18-2023 History and physical note HISTORY AND PHYSICAL Clint Salmeron Jian 1940 REFERRING PHYSICIAN: Cody Carrington MD CHIEF COMPLAINT: Consult and rectal mass HPI: The patient is a 83 year old male referred for endoscopy. Clint notes no history of colon complaints. The patient notes no history of upper GI complaints. Clint has not undergone prior endoscopy. IMPRESSION: Broad-based mass in the mid rectum (up to 2.2 cm). Several perirectal soft tissue likely tumor deposits. Retroperitoneal and pelvic metastatic lymphadenopathy. Moderate right hydroureteronephrosis obstructed at the level of mid ureter encased by retroperitoneal lymphadenopathy. Recommend colonoscopy and/or oncologic consultation for further management. Colorectal Score: C4 - Colorectal mass, likely malignant. Recommend colonoscopy, surgical and/or oncologic consultation. Extracolonic Score: E4 - Likely clinically important; further workup needed. The patient is being seen by me today at the request of Dr. Cody Carrington MD for my opinion and advice regarding Rectal mass (primary encounter diagnosis). PAST MEDICAL HISTORY PAST MEDICAL HISTORY 03/08/2014: Allergic contact dermatitis due to multiple agents 10/21/2023: Anticoagulant long-term use 10/21/2023: At risk for stroke No date: Atrial fibrillation (HCC) 07/03/2020: COVID-19 virus infection No date: Dizziness and giddiness 01/09/2023: Elevated PSA 05/23/2015: Herpes infection Comment: Breaks out in sacral area every 2-3 months. 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 PAST SURGICAL HISTORY PAST SURGICAL HISTORY 2004: OPEN REPAIR OF ROTATOR CUFF ACUTE; Right Comment: Rotator cuff repair, right 1950s: TONSILLECTOMY PRIMARY/SECONDARY Comment: Tonsillectomy CURRENT MEDICATIONS Current Outpatient Medications Medication Sig finasteride (PROSCAR) 5 mg tablet Take 1 tablet by mouth once daily apixaban (ELIQUIS) 5 mg tab(s) Take 1 tablet by mouth two times a day. metoprolol tartrate, short acting, (LOPRESSOR) 50 mg tablet Take 1 tablet by mouth two times a day. amLODIPine (NORVASC) 5 mg tablet Take 1 tablet by mouth once daily. levothyroxine (SYNTHROID) 112 mcg tablet Take 1 tablet by mouth once daily. Take on empty stomach. For thyroid hydrOXYzine HCl (ATARAX) 25 mg tablet Take 1 tablet by mouth daily at bedtime. losartan (COZAAR) 100 mg tablet Take 1 tablet by mouth once daily. valACYclovir (VALTREX) 500 mg tablet Take 1 tablet by mouth once daily. atorvastatin (LIPITOR) 40 mg tablet Take 1 tablet by mouth daily at bedtime. tamsulosin (FLOMAX) 0.4 mg Take 2 capsules by mouth daily at bedtime. cyclobenzaprine (FLEXERIL) 10 mg tablet Take 1 tablet by mouth twice daily as needed for muscle spasm. No current facility-administered medications for this visit. ALLERGIES: Patient has no known allergies. PERSONAL HISTORY: SOCIAL HISTORY Social History Tobacco Use Smoking status: Former Packs/day: 1.00 Years: 17.00 Additional pack years: 0.00 Total pack years: 17.00 Types: Cigarettes Quit date: 1977 Years since quittin.4 Smokeless tobacco: Never Vaping Use Vaping Use: Never used Substance Use Topics Alcohol use: Yes Alcohol/week: 1.0 standard drink of alcohol Types: 1 Cans of beer per week Drug use: Never FAMILY HISTORY: FAMILY HISTORY FAMILY HISTORY Problem Relation Age of Onset other (Other) Mother no contact Coronary Artery Disease Father Heart Failure Father Diabetes Father REVIEW OF SYMPTOMS: The review of systems data was entered by the nurse and reviewed by me Nursing Notes: Danielle Kaiser MA 12/08/2023 1:26 PM Signed REVIEW OF SYSTEMS: General: The patient denies fatigue, denies weight loss, denies weight gain, denies feeling hot, and denies feelings of cold. Eyes: The patient denies glaucoma, denies eye injury/surgery, wears glasses or contacts. Ear/Nose/Throat: The patient denies allergies, denies hayfever, denies ear infections, and denies bloody noses. Cardiovascular: The patient denies chest pain, denies heart disease, NOTES high blood pressure,denies cardiac stent, denies prior heart attack, NOTES irregular heart beat, NOTES high cholesterol, denies poor circulation, denies heart failure, other cardiac issues, denies claudication, denies cold feet, denies peripheral arterial stent. Respiratory: The patient denies tuberculosis, denies pneumonia, denies frequent cough, denies pulmonary embolism, denies shortness of breath, and denies coughing up blood. Gastrointestinal: The patient denies difficulty swallowing, denies acid reflux, denies ulcers, denies vomiting, denies jaundice/hepatitis, denies gallbladder problems, denies black or tarry stools, denies hemorrhoids, denies bleeding from rectum, denies diverticulitis, denies constipation, denies diarrhea, denies loss of stool control, and denies hernias. Kidney/Bladder: The patient denies kidney stones, denies urine infections, and denies bloody urine. Skin: The patient denies a history of skin cancer, denies bleeding/changing moles, and denies a history of skin rash. Neurologic: The patient denies a history of epilepsy/convulsions, denies headaches, denies head/spinal injuries, and denies stroke/TIA. Psychiatric: The patient denies psychiatric medications, denies depression, and denies voices, denies substance abuse. Endocrine: The patient NOTES thyroid disorders, denies diabetes, and denies hormonal problems. Hematologic: The patient denies a history of bruising, denies bleeding, and denies anemia, denies blood clots. Infections: The patient denies a history of measles and mumps, denies rheumatic fever, and denies sexually transmitted diseases. Musculoskeletal: The patient denies back pain/injury, denies back problems, denies sciatica, denies knee/foot trouble, denies arthritis, or denies gout. When was patient's last Mammogram screening? N/A Last Colonoscopy: Danielle Kaiser MA PHYSICAL EXAMINATION: General: The patient is 83 year old male, well nourished, well hydrated in no acute distress. The patient is oriented to time, place, and person. VITALS: Blood pressure 138/66, pulse (!) 51, temperature 36.3 C (97.4 F), weight 91.7 kg (202 lb 3.2 oz), SpO2 96%. Body mass index is 33.65 kg/m (pended). HEENT: Normal cephalic, ataumatic, pupils are equally round, sclera are anicteric, mucous membranes are moist, oropharynx is clear. Neck has no masses, asymmetry or lymphadenopathy. Thyroid is unremarkable. Respiratory: Clear to auscultation and percussion. Normal respiratory excursion and pattern. Cardiac: Examination is regular rate and rhythm. Abdominal exam: Soft, nontender, with no palpable masses. No hepatosplenomegaly. No palpable hernias. Rectal exam: exam deferred Extremities: no clubbing, cyanosis or edema. No adenopathy. Other: LABORATORY VALUES: As Noted RADIOLOGIC STUDIES: As Noted Assessment IMPRESSION: Rectal mass (primary encounter diagnosis) PLAN: I plan to perform lower endoscopy. We discussed the risks and benefits of the planned endoscopy. I have informed the patient that complications can occur including failure to complete the endoscopy and perforation. The patient had the opportunity to ask questions concerning the planned endoscopy. My staff has also explained the procedure to the patient in understandable terms and has given the patient printed material concerning the procedure. The patient freely consents to surgery. I plan to use Miralax bowel preperation for endoscopy Diagnoses: (K62.89) Rectal mass (primary encounter diagnosis) My findings have been communicated to Dr. Cody Carrington MD via shared medical record. This note will be forwarded to Dr. Cody Carrington MD. Return to Clinic: The patient is instructed to follow-up with me 1 week post operatively. Fernando Wen III, MD UPDATED HISTORY AND PHYSICAL EXAMINATION SERVICE DATE: 12/18/2023 SERVICE TIME: 12:21 PM PHYSICAL EXAM MUST BE COMPLETED ON ADMISSION The History and Physical (completed in the past 30 days) has been reviewed and the patient has been examined. The contents accurately reflect the patient's condition with the following additions or revisions since the H&P was completed. Examination indicates no changes. This H&P can be found in the attached. SIGNATURE: Fernando Wen III, MD PATIENT NAME: Clint Villar DATE: December 18, 2023 TIME: 12:[address] [facility] 12-18-2023 History and physical note HISTORY AND PHYSICAL Clint Villar 1940 REFERRING PHYSICIAN: Cody Carrington MD CHIEF COMPLAINT: Consult and rectal mass HPI: The patient is a 83 year old male referred for endoscopy. Clint notes no history of colon complaints. The patient notes no history of upper GI complaints. Clint has not undergone prior endoscopy. IMPRESSION: Broad-based mass in the mid rectum (up to 2.2 cm). Several perirectal soft tissue likely tumor deposits. Retroperitoneal and pelvic metastatic lymphadenopathy. Moderate right hydroureteronephrosis obstructed at the level of mid ureter encased by retroperitoneal lymphadenopathy. Recommend colonoscopy and/or oncologic consultation for further management. Colorectal Score: C4 - Colorectal mass, likely malignant. Recommend colonoscopy, surgical and/or oncologic consultation. Extracolonic Score: E4 - Likely clinically important; further workup needed. The patient is being seen by me today at the request of Dr. Cody Carrington MD for my opinion and advice regarding Rectal mass (primary encounter diagnosis). PAST MEDICAL HISTORY PAST MEDICAL HISTORY 03/08/2014: Allergic contact dermatitis due to multiple agents 10/21/2023: Anticoagulant long-term use 10/21/2023: At risk for stroke No date: Atrial fibrillation (HCC) 07/03/2020: COVID-19 virus infection No date: Dizziness and giddiness 01/09/2023: Elevated PSA 05/23/2015: Herpes infection Comment: Breaks out in sacral area every 2-3 months. 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 PAST SURGICAL HISTORY PAST SURGICAL HISTORY 2005: OPEN REPAIR OF ROTATOR CUFF ACUTE; Right Comment: Rotator cuff repair, right 1950s: TONSILLECTOMY PRIMARY/SECONDARY <AGE 14 Comment: Tonsillectomy CURRENT MEDICATIONS Current Outpatient Medications Medication Sig finasteride (PROSCAR) 5 mg tablet Take 1 tablet by mouth once daily apixaban (ELIQUIS) 5 mg tab(s) Take 1 tablet by mouth two times a day. metoprolol tartrate, short acting, (LOPRESSOR) 50 mg tablet Take 1 tablet by mouth two times a day. amLODIPine (NORVASC) 5 mg tablet Take 1 tablet by mouth once daily. levothyroxine (SYNTHROID) 112 mcg tablet Take 1 tablet by mouth once daily. Take on empty stomach. For thyroid hydrOXYzine HCl (ATARAX) 25 mg tablet Take 1 tablet by mouth daily at bedtime. losartan (COZAAR) 100 mg tablet Take 1 tablet by mouth once daily. valACYclovir (VALTREX) 500 mg tablet Take 1 tablet by mouth once daily. atorvastatin (LIPITOR) 40 mg tablet Take 1 tablet by mouth daily at bedtime. tamsulosin (FLOMAX) 0.4 mg Take 2 capsules by mouth daily at bedtime. cyclobenzaprine (FLEXERIL) 10 mg tablet Take 1 tablet by mouth twice daily as needed for muscle spasm. No current facility-administered medications for this visit. ALLERGIES: Patient has no known allergies. PERSONAL HISTORY: SOCIAL HISTORY Social History Tobacco Use Smoking status: Former Packs/day: 1.00 Years: 17.00 Additional pack years: 0.00 Total pack years: 17.00 Types: Cigarettes Quit date: 1977 Years since quittin.4 Smokeless tobacco: Never Vaping Use Vaping Use: Never used Substance Use Topics Alcohol use: Yes Alcohol/week: 1.0 standard drink of alcohol Types: 1 Cans of beer per week Drug use: Never FAMILY HISTORY: FAMILY HISTORY FAMILY HISTORY Problem Relation Age of Onset other (Other) Mother no contact Coronary Artery Disease Father Heart Failure Father Diabetes Father REVIEW OF SYMPTOMS: The review of systems data was entered by the nurse and reviewed by nm Nursing Notes: Danielle Kaiser MA 12/08/2023 1:26 PM Signed REVIEW OF SYSTEMS: General: The patient denies fatigue, denies weight loss, denies weight gain, denies feeling hot, and denies feelings of cold. Eyes: The patient denies glaucoma, denies eye injury/surgery, wears glasses or contacts. Ear/Nose/Throat: The patient denies allergies, denies hayfever, denies ear infections, and denies bloody noses. Cardiovascular: The patient denies chest pain, denies heart disease, NOTES high blood pressure,denies cardiac stent, denies prior heart attack, NOTES irregular heart beat, NOTES high cholesterol, denies poor circulation, denies heart failure, other cardiac issues, denies claudication, denies cold feet, denies peripheral arterial stent. Respiratory: The patient denies tuberculosis, denies pneumonia, denies frequent cough, denies pulmonary embolism, denies shortness of breath, and denies coughing up blood. Gastrointestinal: The patient denies difficulty swallowing, denies acid reflux, denies ulcers, denies vomiting, denies jaundice/hepatitis, denies gallbladder problems, denies black or tarry stools, denies hemorrhoids, denies bleeding from rectum, denies diverticulitis, denies constipation, denies diarrhea, denies loss of stool control, and denies hernias. Kidney/Bladder: The patient denies kidney stones, denies urine infections, and denies bloody urine. Skin: The patient denies a history of skin cancer, denies bleeding/changing moles, and denies a history of skin rash. Neurologic: The patient denies a history of epilepsy/convulsions, denies headaches, denies head/spinal injuries, and denies stroke/TIA. Psychiatric: The patient denies psychiatric medications, denies depression, and denies voices, denies substance abuse. Endocrine: The patient NOTES thyroid disorders, denies diabetes, and denies hormonal problems. Hematologic: The patient denies a history of bruising, denies bleeding, and denies anemia, denies blood clots. Infections: The patient denies a history of measles and mumps, denies rheumatic fever, and denies sexually transmitted diseases. Musculoskeletal: The patient denies back pain/injury, denies back problems, denies sciatica, denies knee/foot trouble, denies arthritis, or denies gout. When was patient's last Mammogram screening? N/A Last Colonoscopy: Danielle Kaiser MA PHYSICAL EXAMINATION: General: The patient is 83 year old male, well nourished, well hydrated in no acute distress. The patient is oriented to time, place, and person. VITALS: Blood pressure 138/66, pulse (!) 51, temperature 36.3 C (97.4 F), weight 91.7 kg (202 lb 3.2 oz), SpO2 96%. Body mass index is 33.65 kg/m (pended). HEENT: Normal cephalic, ataumatic, pupils are equally round, sclera are anicteric, mucous membranes are moist, oropharynx is clear. Neck has no masses, asymmetry or lymphadenopathy. Thyroid is unremarkable. Respiratory: Clear to auscultation and percussion. Normal respiratory excursion and pattern. Cardiac: Examination is regular rate and rhythm. Abdominal exam: Soft, nontender, with no palpable masses. No hepatosplenomegaly. No palpable hernias. Rectal exam: exam deferred Extremities: no clubbing, cyanosis or edema. No adenopathy. Other: LABORATORY VALUES: As Noted RADIOLOGIC STUDIES: As Noted Assessment IMPRESSION: Rectal mass (primary encounter diagnosis) PLAN: I plan to perform lower endoscopy. We discussed the risks and benefits of the planned endoscopy. I have informed the patient that complications can occur including failure to complete the endoscopy and perforation. The patient had the opportunity to ask questions concerning the planned endoscopy. My staff has also explained the procedure to the patient in understandable terms and has given the patient printed material concerning the procedure. The patient freely consents to surgery. I plan to use Miralax bowel preperation for endoscopy Diagnoses: (K62.89) Rectal mass (primary encounter diagnosis) My findings have been communicated to Dr. Cody Carrington MD via shared medical record. This note will be forwarded to Dr. Cody Carrington MD. Return to Clinic: The patient is instructed to follow-up with me 1 week post operatively. Fernando Wen III, MD UPDATED HISTORY AND PHYSICAL EXAMINATION SERVICE DATE: 12/18/2023 SERVICE TIME: 12:21 PM PHYSICAL EXAM MUST BE COMPLETED ON ADMISSION The History and Physical (completed in the past 30 days) has been reviewed and the patient has been examined. The contents accurately reflect the patient's condition with the following additions or revisions since the H&P was completed. Examination indicates no changes. This H&P can be found in the attached. SIGNATURE: Fernando Wen III, MD PATIENT NAME: Clint Villar DATE: December 18, 2023 TIME: 12:20 PM documented in this encounter [facility] 12-18-2023 Nurse Note pt arrived to phase 2 awake on left side. at bedside. Dr Wen spoke with pt and regarding findings and recommendations. Pt and verbalize understanding. SR up x 2, call light in reach. Jaky Fisher RN [facility] 12-18-2023 Nurse Note pt arrived to phase 2 awake on left side. at bedside. Dr Wen spoke with pt and regarding findings and recommendations. Pt and verbalize understanding. SR up x 2, call light in reach. Jaky Fisher RN documented in this encounter [facility] 12-18-2023 Note Formatting of this n ote might be different from the original. The patient received a copy of Colonoscopy discharge instructions that contain information for how to contact the physician who performed the procedure and when to seek medical care. [facility] 12-18-2023 Miscellaneous Notes The patient received a copy of Colonoscopy discharge instructions that contain information for how to contact the physician who performed the procedure and when to seek medical care. documented in this encounter [facility] 12-10-2023 Telephone encounter Note Called and spoke with and asked if pt was at home. She states he is at work and gave his work number to call. Called pt at work, received permission to speak with pt's Susanne at anytime. Explained to Mack that his prescription for Proscar was just filled by [facility] yesterday for a 90 day supply only and that his thyroid medication was sent through for 90 [address] [facility] 12-10-2023 Miscellaneous Notes Called and spoke with and asked if pt was at home. She states he is at work and gave his work number to call. Called pt at work, received permission to speak with pt's Susanne at anytime. Explained to Mack that his prescription for Proscar was just filled by [facility]osc[facility] yesterday for a 90 day supply only and that his thyroid medication was sent through for 90 with 3 refills. Proscar was just filled by [facility] yesterday Leela Drake APRN.CNP Prescription Refill Information The patient has been identified by name and date of : Yes Caregiver verified no other encounters exist for this prescription request: Yes Caregiver confirmed with patient/requestor that no other refills are due, in the near future, with this provider at this time: Yes The last office visit in the department: 10-24-23 Does the patient have a future office visit with this provider/department: Yes Requested Prescriptions Pending Prescriptions Disp Refills levothyroxine (SYNTHROID) 112 mcg tablet Sig: Take 1 tablet by mouth once daily. Take on empty stomach. For thyroid finasteride (PROSCAR) 5 mg tablet 90 tablet 0 Sig: Take 1 tablet by mouth once daily. Chelsea Walters December 10, 2023 8:18 AM documented in this encounter [facility] 12-10-2023 Telephone encounter Note Proscar was just filled by [facility] Tosc[facility] yesterday Leela Drake APRN.CNP [facility] 12-10-2023 Telephone encounter Note Prescription Refill Information The patient has been identified by name and date of : Yes Caregiver verified no other encounters exist for this prescription request: Yes Caregiver confirmed with patient/requestor that no other refills are due, in the near future, with this provider at this time: Yes The last office visit in the department: 10-24-23 Does the patient have a future office visit with this provider/department: Yes Requested Prescriptions Pending Prescriptions Disp Refills levothyroxine (SYNTHROID) 112 mcg tablet Sig: Take 1 tablet by mouth once daily. Take on empty stomach. For thyroid finasteride (PROSCAR) 5 mg tablet 90 tablet 0 Sig: Take 1 tablet by mouth once daily. Chelsea Walters December 10, 2023 8:[address] [facility] 12-09-2023 Telephone encounter Note Spoke with patient and scheduled with Dr. Payne per patient request. Shanthi Tyrell [facility] 12-09-2023 Miscellaneous Notes Spoke with patient and scheduled with Dr. Payne per patient request. Shanthi Santillan No, we can schedule next new either me or Dr. Payne. Wait to schedule until patient has been seen by general surgery/has biopsy? Angella Bassett LPN Please review and advise. Consult to general surgery as given to outdoor studies professor at desk. Routing consult to oncology to psr carlie Abbott MA ASSESSMENT/PLAN: 1. Rectal mass - ICD9: 787.99, ICD10: K62.89 I called Mr. Villar and we agreed to discuss findings on CT colonography concerning for metastatic rectal malignancy. Patient indicated understanding and willingness to follow recommendations. - CONSULT TO GENERAL SURGERY - CONSULT TO HEMATOLOGY/ONCOLOGY Cody Carrington MD documented in this encounter [facility] 12-08-2023 Telephone encounter Note No, we can schedule next new either me or Dr. Payne. [facility] Work Phone: 12-08-2023 Telephone encounter Note 12/18/[address] Wen patient to be off Eliquis 5 days prior to scopes. Left voicemail for patient stating his colon that was on 12/11 needed to be rescheduled due to this reason Danna Lagos [employer] [facility] 12-08-2023 Miscellaneous Notes 12/18/[address] Wen patient to be off Eliquis 5 days prior to scopes. Left voicemail for patient stating his colon that was on 8 needed to be rescheduled due to this reason Danna Lagos [employer] documented in this encounter [facility] 12-08-2023 History of Present illness Narrative HISTORY AND PHYSICAL Clint Salmeron Jian 1940 REFERRING PHYSICIAN: Cody Carrington MD CHIEF COMPLAINT: Consult and rectal mass HPI: The patient is a 83 year old male referred for endoscopy. Clint notes no history of colon complaints. The patient notes no history of upper GI complaints. Clint has not undergone prior endoscopy. IMPRESSION: Broad-based mass in the mid rectum (up to 2.2 cm). Several perirectal soft tissue likely tumor deposits. Retroperitoneal and pelvic metastatic lymphadenopathy. Moderate right hydroureteronephrosis obstructed at the level of mid ureter encased by retroperitoneal lymphadenopathy. Recommend colonoscopy and/or oncologic consultation for further management. Colorectal Score: C4 - Colorectal mass, likely malignant. Recommend colonoscopy, surgical and/or oncologic consultation. Extracolonic Score: E4 - Likely clinically important; further workup needed. The patient is being seen by me today at the request of Dr. Cody Carrington MD for my opinion and advice regarding Rectal mass (primary encounter diagnosis). 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 PAST SURGICAL HISTORY 2005: OPEN REPAIR OF ROTATOR CUFF ACUTE; Right Comment: Rotator cuff repair, right 1950s: TONSILLECTOMY PRIMARY/SECONDARY <AGE 14 Comment: Tonsillectomy Current Outpatient Medications Medication Sig finasteride (PROSCAR) 5 mg tablet Take 1 tablet by mouth once daily apixaban (ELIQUIS) 5 mg tab(s) Take 1 tablet by mouth two times a day. metoprolol tartrate, short acting, (LOPRESSOR) 50 mg tablet Take 1 tablet by mouth two times a day. amLODIPine (NORVASC) 5 mg tablet Take 1 tablet by mouth once daily. levothyroxine (SYNTHROID) 112 mcg tablet Take 1 tablet by mouth once daily. Take on empty stomach. For thyroid hydrOXYzine HCl (ATARAX) 25 mg tablet Take 1 tablet by mouth daily at bedtime. losartan (COZAAR) 100 mg tablet Take 1 tablet by mouth once daily. valACYclovir (VALTREX) 500 mg tablet Take 1 tablet by mouth once daily. atorvastatin (LIPITOR) 40 mg tablet Take 1 tablet by mouth daily at bedtime. tamsulosin (FLOMAX) 0.4 mg Take 2 capsules by mouth daily at bedtime. cyclobenzaprine (FLEXERIL) 10 mg tablet Take 1 tablet by mouth twice daily as needed for muscle spasm. No current facility-administered medications for this visit. ALLERGIES: Patient has no known allergies. PERSONAL HISTORY: Social History Tobacco Use Smoking status: Former Packs/day: 1.00 Years: 17.00 Additional pack years: 0.00 Total pack years: 17.00 Types: Cigarettes Quit date: 1977 Years since quittin.4 Smokeless tobacco: Never Vaping Use Vaping Use: Never used Substance Use Topics Alcohol use: Yes Alcohol/week: 1.0 standard drink of alcohol Types: 1 Cans of beer per week Drug use: Never FAMILY HISTORY: FAMILY HISTORY Problem Relation Age of Onset other (Other) Mother no contact Coronary Artery Disease Father Heart Failure Father Diabetes Father REVIEW OF SYMPTOMS: The review of systems data was entered by the nurse and reviewed by nm Nursing Notes: Danielle Kaiser MA 12/08/2023 1:26 PM Signed REVIEW OF SYSTEMS: General: The patient denies fatigue, denies weight loss, denies weight gain, denies feeling hot, and denies feelings of cold. Eyes: The patient denies glaucoma, denies eye injury/surgery, wears glasses or contacts. Ear/Nose/Throat: The patient denies allergies, denies hayfever, denies ear infections, and denies bloody noses. Cardiovascular: The patient denies chest pain, denies heart disease, NOTES high blood pressure,denies cardiac stent, denies prior heart attack, NOTES irregular heart beat, NOTES high cholesterol, denies poor circulation, denies heart failure, other cardiac issues, denies claudication, denies cold feet, denies peripheral arterial stent. Respiratory: The patient denies tuberculosis, denies pneumonia, denies frequent cough, denies pulmonary embolism, denies shortness of breath, and denies coughing up blood. Gastrointestinal: The patient denies difficulty swallowing, denies acid reflux, denies ulcers, denies vomiting, denies jaundice/hepatitis, denies gallbladder problems, denies black or tarry stools, denies hemorrhoids, denies bleeding from rectum, denies diverticulitis, denies constipation, denies diarrhea, denies loss of stool control, and denies hernias. Kidney/Bladder: The patient denies kidney stones, denies urine infections, and denies bloody urine. Skin: The patient denies a history of skin cancer, denies bleeding/changing moles, and denies a history of skin rash. Neurologic: The patient denies a history of epilepsy/convulsions, denies headaches, denies head/spinal injuries, and denies stroke/TIA. Psychiatric: The patient denies psychiatric medications, denies depression, and denies voices, denies substance abuse. Endocrine: The patient NOTES thyroid disorders, denies diabetes, and denies hormonal problems. Hematologic: The patient denies a history of bruising, denies bleeding, and denies anemia, denies blood clots. Infections: The patient denies a history of measles and mumps, denies rheumatic fever, and denies sexually transmitted diseases. Musculoskeletal: The patient denies back pain/injury, denies back problems, denies sciatica, denies knee/foot trouble, denies arthritis, or denies gout. When was patient's last Mammogram screening? N/A Last Colonoscopy: Danielle Kaiser MA PHYSICAL EXAMINATION: General: The patient is 83 year old male, well nourished, well hydrated in no acute distress. The patient is oriented to time, place, and person. VITALS: Blood pressure 138/66, pulse (!) 51, temperature 36.3 C (97.4 F), weight 91.7 kg (202 lb 3.2 oz), SpO2 96%. Body mass index is 33.65 kg/m (pended). HEENT: Normal cephalic, ataumatic, pupils are equally round, sclera are anicteric, mucous membranes are moist, oropharynx is clear. Neck has no masses, asymmetry or lymphadenopathy. Thyroid is unremarkable. Respiratory: Clear to auscultation and percussion. Normal respiratory excursion and pattern. Cardiac: Examination is regular rate and rhythm. Abdominal exam: Soft, nontender, with no palpable masses. No hepatosplenomegaly. No palpable hernias. Rectal exam: exam deferred Extremities: no clubbing, cyanosis or edema. No adenopathy. Other: LABORATORY VALUES: As Noted RADIOLOGIC STUDIES: As Noted Assessment IMPRESSION: Rectal mass (primary encounter diagnosis) PLAN: I plan to perform lower endoscopy. We discussed the risks and benefits of the planned endoscopy. I have informed the patient that complications can occur including failure to complete the endoscopy and perforation. The patient had the opportunity to ask questions concerning the planned endoscopy. My staff has also explained the procedure to the patient in understandable terms and has given the patient printed material concerning the procedure. The patient freely consents to surgery. I plan to use Miralax bowel preperation for endoscopy Diagnoses: (K62.89) Rectal mass (primary encounter diagnosis) My findings have been communicated to Dr. Cody Carrington MD via shared medical record. This note will be forwarded to Dr. Cody Carrington MD. Return to Clinic: The patient is instructed to follow-up with me 1 week post operatively. Fernando Wen III, MD documented in this encounter [facility] 12-08-2023 Nurse Note REVIEW OF SYSTEMS: General: The patient denies fatigue, denies weight loss, denies weight gain, denies feeling hot, and denies feelings of cold. Eyes: The patient denies glaucoma, denies eye injury/surgery, wears glasses or contacts. Ear/Nose/Throat: The patient denies allergies, denies hayfever, denies ear infections, and denies bloody noses. Cardiovascular: The patient denies chest pain, denies heart disease, NOTES high blood pressure,denies cardiac stent, denies prior heart attack, NOTES irregular heart beat, NOTES high cholesterol, denies poor circulation, denies heart failure, other cardiac issues, denies claudication, denies cold feet, denies peripheral arterial stent. Respiratory: The patient denies tuberculosis, denies pneumonia, denies frequent cough, denies pulmonary embolism, denies shortness of breath, and denies coughing up blood. Gastrointestinal: The patient denies difficulty swallowing, denies acid reflux, denies ulcers, denies vomiting, denies jaundice/hepatitis, denies gallbladder problems, denies black or tarry stools, denies hemorrhoids, denies bleeding from rectum, denies diverticulitis, denies constipation, denies diarrhea, denies loss of stool control, and denies hernias. Kidney/Bladder: The patient denies kidney stones, denies urine infections, and denies bloody urine. Skin: The patient denies a history of skin cancer, denies bleeding/changing moles, and denies a history of skin rash. Neurologic: The patient denies a history of epilepsy/convulsions, denies headaches, denies head/spinal injuries, and denies stroke/TIA. Psychiatric: The patient denies psychiatric medications, denies depression, and denies voices, denies substance abuse. Endocrine: The patient NOTES thyroid disorders, denies diabetes, and denies hormonal problems. Hematologic: The patient denies a history of bruising, denies bleeding, and denies anemia, denies blood clots. Infections: The patient denies a history of measles and mumps, denies rheumatic fever, and denies sexually transmitted diseases. Musculoskeletal: The patient denies back pain/injury, denies back problems, denies sciatica, denies knee/foot trouble, denies arthritis, or denies gout. When was patient's last Mammogram screening? N/A Last Colonoscopy: Danielle Kaiser MA [facility] 12-08-2023 Nurse Note REVIEW OF SYSTEMS: General: The patient denies fatigue, denies weight loss, denies weight gain, denies feeling hot, and denies feelings of cold. Eyes: The patient denies glaucoma, denies eye injury/surgery, wears glasses or contacts. Ear/Nose/Throat: The patient denies allergies, denies hayfever, denies ear infections, and denies bloody noses. Cardiovascular: The patient denies chest pain, denies heart disease, NOTES high blood pressure,denies cardiac stent, denies prior heart attack, NOTES irregular heart beat, NOTES high cholesterol, denies poor circulation, denies heart failure, other cardiac issues, denies claudication, denies cold feet, denies peripheral arterial stent. Respiratory: The patient denies tuberculosis, denies pneumonia, denies frequent cough, denies pulmonary embolism, denies shortness of breath, and denies coughing up blood. Gastrointestinal: The patient denies difficulty swallowing, denies acid reflux, denies ulcers, denies vomiting, denies jaundice/hepatitis, denies gallbladder problems, denies black or tarry stools, denies hemorrhoids, denies bleeding from rectum, denies diverticulitis, denies constipation, denies diarrhea, denies loss of stool control, and denies hernias. Kidney/Bladder: The patient denies kidney stones, denies urine infections, and denies bloody urine. Skin: The patient denies a history of skin cancer, denies bleeding/changing moles, and denies a history of skin rash. Neurologic: The patient denies a history of epilepsy/convulsions, denies headaches, denies head/spinal injuries, and denies stroke/TIA. Psychiatric: The patient denies psychiatric medications, denies depression, and denies voices, denies substance abuse. Endocrine: The patient NOTES thyroid disorders, denies diabetes, and denies hormonal problems. Hematologic: The patient denies a history of bruising, denies bleeding, and denies anemia, denies blood clots. Infections: The patient denies a history of measles and mumps, denies rheumatic fever, and denies sexually transmitted diseases. Musculoskeletal: The patient denies back pain/injury, denies back problems, denies sciatica, denies knee/foot trouble, denies arthritis, or denies gout. When was patient's last Mammogram screening? N/A Last Colonoscopy: Danielle Kaiser MA documented in this encounter [facility] 12-08-2023 Telephone encounter Note CJ: 02/04/23 NOV: None Scheduled Patient phones requesting refills as follows: Requested Prescriptions Pending Prescriptions Disp Refills finasteride (PROSCAR) 5 mg tablet [Pharmacy Med Name: Finasteride 5 MG Oral Tablet] 90 tablet 0 Sig: Take 1 tablet by mouth once daily Please review and advise. Chris Mares LPN [facility] 12-08-2023 Miscellaneous Notes CJ: 02/04/23 NOV: None Scheduled Patient phones requesting refills as follows: Requested Prescriptions Pending Prescriptions Disp Refills finasteride (PROSCAR) 5 mg tablet [Pharmacy Med Name: Finasteride 5 MG Oral Tablet] 90 tablet 0 Sig: Take 1 tablet by mouth once daily Please review and advise. Chris Mares LPN documented in this encounter [facility] 12-05-2023 Telephone encounter Note Wait to schedule until patient has been seen by general surgery/has biopsy? Angella Bassett LPN [facility] 12-05-2023 Telephone encounter Note Please review and advise. [facility] Work Phone: 12-04-2023 Telephone encounter Note Consult to general surgery as given to outdoor studies professor at desk. Routing consult to oncology to psr pool Lucia Abbott MA [facility] 12-04-2023 Telephone encounter Note ASSESSMENT/PLAN: 1. Rectal mass - ICD9: 787.99, ICD10: K62.89 I called Mr. Villar and we agreed to discuss findings on CT colonography concerning for metastatic rectal malignancy. Patient indicated understanding and willingness to follow recommendations. - CONSULT TO GENERAL SURGERY - CONSULT TO HEMATOLOGY/ONCOLOGY Cody Carrington MD [facility] 12-04-2023 History of Present illness Narrative Radiology Service Progress Note PATIENT NAME: Clint Villar DATE OF SERVICE: December 04, 2023 TIME: 8:43 AM PATIENT IDENTITY VERIFICATION COMPLETED USING TWO (2) IDENTIFIERS: Name and Date of confirmed by patient verbally and Name and Date of confirmed by identification band. FALL SCREENING: Has the patient had 2 falls in the last year or 1 fall with injury or currently using an Ambulatory Assistive Device (Walker, Cane, Wheelchair, Crutches, etc.)? No PATIENT GENDER DATA: Male PATIENT RELEVANT IMPLANT DATA REVIEWED: Not Applicable PATIENT PRESENTS WITH AN IMPLANTABLE OR ATTACHED DRIER AND EVAPORATOR OPERATOR: No RADIOLOGY DEPARTMENT: CT; Exam(s) Completed: Abdomen/Pelvis PERIPHERAL IV DATA: Not applicable SIGNED BY: FADIA Hampton December 04, 2023 8:43 AM documented in this encounter [facility] 10-27-2023 Telephone encounter Note Called pt and reviewed. [facility] 10-27-2023 Miscellaneous Notes Called pt and reviewed. My chart message to pt. See visit yesterday. Procedure not done in [facility]. PA may be needed. Please inform the patient. Set up in appropriate [facility] facility. ASSESSMENT/PLAN: 1. Positive colorectal cancer screening using Cologuard test - ICD9: 787.7, ICD10: R19.5 (primary diagnosis) 2. Constipation, unspecified constipation type - ICD9: 564.00, ICD10: K59.00 - CT COLONOGRAPHY SCREENING WO IVCON Cody Carrington MD documented in this encounter [facility] 10-27-2023 Telephone encounter Note My chart message to pt. [facility] 10-25-2023 Telephone encounter Note See visit yesterday. Procedure not done in [facility]. PA may be needed. Please inform the patient. Set up in appropriate [facility] facility. ASSESSMENT/PLAN: 1. Positive colorectal cancer screening using Cologuard test - ICD9: 787.7, ICD10: R19.5 (primary diagnosis) 2. Constipation, unspecified constipation type - ICD9: 564.00, ICD10: K59.00 [facility] Car[facility] 10-24-2023 History of Present illness Narrative This note was created using [email or web address]. Subjective Patient presents with: Yearly Exam Clint Villar is a 83 year old male. He was doing well, and had no new concerns. His atrial fibrillation was paroxysmal and controlled. He had 2 consultations for advanced treatment of atrial fibrillation, one with Dr. Garcia in [place], and most recently with Dr. Barrera in [facility]. He decided to continue with current management. He sees Dr. Sruthi Larkin for primary cardiology here in [place] and LUPE Hunt for urology. High PSA was stable, and he decided against prostate biopys. He also had a history of a positive cologuard but declined the next step. He was hesitant to have procedures in general. Review of Systems Constitutional: Negative for fatigue, fever and unexpected weight change. HENT: Negative. Eyes: Negative for visual disturbance. Respiratory: Negative for chest tightness, shortness of breath and wheezing. Cardiovascular: Negative for chest pain, palpitations and leg swelling. Gastrointestinal: Negative for abdominal pain, blood in stool, constipation and diarrhea. Genitourinary: Negative for difficulty urinating, dysuria and hematuria. Musculoskeletal: Negative for arthralgias and myalgias. Neurological: Negative for dizziness and headaches. Psychiatric/Behavioral: Negative. 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 PAST SURGICAL HISTORY Procedure Laterality Date OPEN REPAIR OF ROTATOR CUFF ACUTE Right 2005 Rotator cuff repair, right TONSILLECTOMY PRIMARY/SECONDARY <AGE 14 1950s Tonsillectomy FAMILY HISTORY Problem Relation Age of Onset other (Other) Mother no contact Coronary Artery Disease Father Heart Failure Father Diabetes Father Social History Tobacco Use Smoking status: Former Packs/day: 1.00 Years: 17.00 Additional pack years: 0.00 Total pack years: 17.00 Types: Cigarettes Quit date: 1977 Years since quittin.3 Smokeless tobacco: Never Vaping Use Vaping Use: Never used Substance Use Topics Alcohol use: Yes Alcohol/week: 1.0 standard drink of alcohol Types: 1 Cans of beer per week Drug use: Never Current Outpatient Medications Medication Sig finasteride (PROSCAR) 5 mg tablet Take 1 tablet by mouth once daily apixaban (ELIQUIS) 5 mg tab(s) Take 1 tablet by mouth two times a day. metoprolol tartrate, short acting, (LOPRESSOR) 50 mg tablet Take 1 tablet by mouth two times a day. amLODIPine (NORVASC) 5 mg tablet Take 1 tablet by mouth once daily. levothyroxine (SYNTHROID) 112 mcg tablet Take 1 tablet by mouth once daily. Take on empty stomach. For thyroid hydrOXYzine HCl (ATARAX) 25 mg tablet Take 1 tablet by mouth daily at bedtime. losartan (COZAAR) 100 mg tablet Take 1 tablet by mouth once daily. valACYclovir (VALTREX) 500 mg tablet Take 1 tablet by mouth once daily. atorvastatin (LIPITOR) 40 mg tablet Take 1 tablet by mouth daily at bedtime. tamsulosin (FLOMAX) 0.4 mg Take 2 capsules by mouth daily at bedtime. cyclobenzaprine (FLEXERIL) 10 mg tablet Take 1 tablet by mouth twice daily as needed for muscle spasm. No current facility-administered medications for this visit. Objective BP (P) 122/70 (BP Site: Left Arm, BP Position: Sitting, BP Cuff Size: Large Adult) Pulse (!) (P) 52 Ht (P) 165.1 cm (5' 5) Wt (P) 96.6 kg (213 lb) BMI (P) 35.45 kg/m Physical Exam Constitutional: General: He is not in acute distress. Appearance: He is not ill-appearing. HENT: Head: Normocephalic. Nose: Nose normal. Eyes: General: No scleral icterus. Extraocular Movements: Extraocular movements intact. Conjunctiva/sclera: Conjunctivae normal. Neck: Vascular: No carotid bruit. Cardiovascular: Rate and Rhythm: Regular rhythm. Bradycardia present. Heart sounds: No murmur heard. No gallop. Pulmonary: Effort: No respiratory distress. Breath sounds: No wheezing or rales. Abdominal: General: There is no distension. Palpations: Abdomen is soft. Tenderness: There is no abdominal tenderness. Musculoskeletal: Right lower leg: No edema. Left lower leg: No edema. Lymphadenopathy: Cervical: No cervical adenopathy. Neurological: General: No focal deficit present. Mental Status: He is alert. Gait: Gait normal. Psychiatric: Mood and Affect: Mood normal. Depression Screening PHQ-2 Score MALLORIE-2 Total Score 10/24/2023 0 0 Depression screening tool completed and reviewed. Based on score and interview, patient is not at risk for depression. Screening tool discussed with patient, and I recommended no further intervention at this time. Latest Ref Rng 10/22/2023 WBC 3.70 - 11.00 k/uL 6.11 RBC 4.20 - 6.00 m/uL 4.05 (L) Hemoglobin 13.0 - 17.0 g/dL 12.8 (L) Hematocrit 39.0 - 51.0 % 38.2 (L) MCV 80.0 - 100.0 fL 94.3 MCH 26.0 - 34.0 pg 31.6 MCHC 30.5 - 36.0 g/dL 33.5 RDW-CV 11.5 - 15.0 % 14.3 Platelet Count 150 - 400 k/uL 180 MPV 9.0 - 12.7 fL 9.5 Absolute nRBC <0.01 k/uL <0.01 Glucose 74 - 99 mg/dL 103 (H) BUN 9 - 24 mg/dL 15 Creatinine 0.73 - 1.22 mg/dL 1.03 Sodium 136 - 144 mmol/L 140 Potassium 3.7 - 5.1 mmol/L 4.0 Chloride 98 - 107 mmol/L 103 CO2 22 - 30 mmol/L 27 Anion Gap 8 - 15 mmol/L 10 Calcium 8.5 - 10.2 mg/dL 9.4 eGFR >=60 mL/min/1.73m 73 Hemoglobin A1C 4.3 - 5.6 % 6.5 (H) Estimated Average Glucose mg/dL 140 PSA <2.60 ng/mL 73.59 (H) Legend: (L) Low (H) High Assessment and Plan 1. Routine medical exam - ICD9: V70.0, ICD10: Z00.00 (primary diagnosis) - Counseled on healthy diet and regular exercise - Discussed need for and benefit of weight loss. No weight on file for this encounter. - Counseled on limiting alcohol intake to 2 drinks per day - RSV vaccine at the pharmacy recommended. - Covid boosters declined. 2. Primary hypertension - ICD9: 401.9, ICD10: I10 - Controlled - Encouraged sodium restriction, DASH or Mediterranean diet - Recommend regular aerobic exercise - Discussed need for and benefit of weight loss. No weight on file for this encounter. 3. Hypothyroidism, unspecified type - ICD9: 244.9, ICD10: E03.9 - continue current dose of Synthroid 4. Elevated PSA - ICD9: 790.93, ICD10: R97.20 - He declined biopsy. He was open to some form of imaging to guide further decisions. 5. Positive colorectal cancer screening using Cologuard test - ICD9: 787.7, ICD10: R19.5 - He declined colonoscopy, but seemed open to virtual colonoscopy. This may need PA from his insurance. I called [facility] CT scan department and they do not do this. CT colonography may indirectly give additional information on prostate as well. He will be contacted to set this up. 6. Impaired fasting glucose - ICD9: 790.21, ICD10: R73.01 - He is at the threshold for diabetes mellitus. Continue diet for now. Recheck in 3 months. Patient indicated understanding and willingness to follow recommendations. Cody Carrington MD documented in this encounter [facility] 10-22-2023 History of Present illness Narrative PRIMARY CARE PHYSICIAN: Cody Carrington [address] [place] [address] REFERRING PHYSICIAN: Sruthi Larkin MD [address] [facility] [address] Patient Care Team: Cody Carrington MD as PCP - General (Internal Medicine) Sruthi Larkin as Specialty Medical Sonographer (Cardiology) CHIEF COMPLAINT: Evaluation of arrhythmia HISTORY OF PRESENT ILLNESS: Mr. Villar is a 83 year old male who presents today for evaluation of arrhythmia, history of atrial fibrillation, referred by Dr. Larkin of [facility]. Mr. Villar states he was diagnosed with the atrial fibrillation in early 2023. Primary care physician found him to be in atrial fibrillation, sent him to [place] [facility]. Admitted to hospital. Treated with medications including oral anticoagulation therapy (Eliquis), and increased metoprolol dosage. He was initially not much aware of the arrhythmia. But he has noticed that during episodes of atrial fibrillation he tires easily -- has effort intolerance, perhaps dizziness. No shortness of breath or chest pain. Episodes of atrial fibrillation have occurred about 3 or 4 times, lasting a few days sometimes. During episodes he is able to carry on with his day, he still works. He denies chest pain, shortness of breath, orthopnea, PND, syncope. No bleeding issues with the oral anticoagulation therapy. I have confirmed and edited as necessary, the PFSH and ROS obtained by others. 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 PAST SURGICAL HISTORY Procedure Laterality Date OPEN REPAIR OF ROTATOR CUFF ACUTE Right 2005 Rotator cuff repair, right TONSILLECTOMY PRIMARY/SECONDARY <AGE 14 1950s Tonsillectomy SOCIAL HISTORY Social History Tobacco Use Smoking status: Former Packs/day: 1.00 Years: 17.00 Additional pack years: 0.00 Total pack years: 17.00 Types: Cigarettes Quit date: 1977 Years since quittin.3 Smokeless tobacco: Never Vaping Use Vaping Use: Never used Substance Use Topics Alcohol use: Yes Alcohol/week: 1.0 standard drink of alcohol Types: 1 Cans of beer per week Drug use: Never FAMILY HISTORY Problem Relation Age of Onset other (Other) Mother no contact Coronary Artery Disease Father Heart Failure Father Diabetes Father ALLERGIES: ALLERGIES No Known Allergies MEDICATIONS: finasteride (PROSCAR) 5 mg tablet Take 1 tablet by mouth once daily apixaban (ELIQUIS) 5 mg tab(s) Take 1 tablet by mouth two times a day. metoprolol tartrate, short acting, (LOPRESSOR) 50 mg tablet Take 1 tablet by mouth two times a day. amLODIPine (NORVASC) 5 mg tablet Take 1 tablet by mouth once daily. levothyroxine (SYNTHROID) 112 mcg tablet Take 1 tablet by mouth once daily. Take on empty stomach. For thyroid benzonatate (TESSALON PERLES) 100 mg capsule Take 2 capsules by mouth three times a day as needed. hydrOXYzine HCl (ATARAX) 25 mg tablet Take 1 tablet by mouth daily at bedtime. losartan (COZAAR) 100 mg tablet Take 1 tablet by mouth once daily. valACYclovir (VALTREX) 500 mg tablet Take 1 tablet by mouth once daily. atorvastatin (LIPITOR) 40 mg tablet Take 1 tablet by mouth daily at bedtime. tamsulosin (FLOMAX) 0.4 mg Take 2 capsules by mouth daily at bedtime. cyclobenzaprine (FLEXERIL) 10 mg tablet Take 1 tablet by mouth twice daily as needed for muscle spasm. REVIEW OF SYSTEMS: Review of Systems Constitutional: Positive for malaise/fatigue (during episodes of atrial fibrillation). Negative for chills and fever. Respiratory: Negative for cough, hemoptysis, sputum production, shortness of breath and wheezing. Cardiovascular: Positive for palpitations. Negative for chest pain, orthopnea, claudication, leg swelling and PND. Gastrointestinal: Negative for abdominal pain, blood in stool, melena, nausea and vomiting. Genitourinary: Negative for dysuria, flank pain and hematuria. Musculoskeletal: Negative for falls. Skin: Negative for rash. Neurological: Positive for dizziness (during episodes of atrial fibrillation). Negative for focal weakness, seizures and loss of consciousness. PHYSICAL EXAMINATION: BP 152/98 Pulse 47 Ht 5' 7 (1.70m) Wt 210 lb (95.3kg) SpO2 95% BMI 32.88 kg/(m^2). Physical Exam Vitals reviewed. Constitutional: General: He is not in acute distress. Appearance: Normal appearance. HENT: Head: Normocephalic and atraumatic. Cardiovascular: Rate and Rhythm: Regular rhythm. Bradycardia present. Heart sounds: Normal heart sounds, S1 normal and S2 normal. No murmur heard. No friction rub. Pulmonary: Effort: Pulmonary effort is normal. No respiratory distress. Breath sounds: Normal breath sounds. No wheezing, rhonchi or rales. Musculoskeletal: Cervical back: Neck supple. Right lower leg: No edema. Left lower leg: No edema. Skin: General: Skin is warm and dry. Neurological: General: No focal deficit present. Mental Status: He is alert and oriented to person, place, and time. Psychiatric: Mood and Affect: Mood normal. Behavior: Behavior normal. Thought Content: Thought content normal. CARDIOVASCULAR MEDICINE TESTING: Electrocardiogram: Sinus bradycardia 45 bpm; normal conduction intervals (OR 178 ms, QRS 88 ms); QTc 406 ms I have personally reviewed the Electrocardiogram. 1. Paroxysmal atrial fibrillation (HCC) - ICD9: 427.31, ICD10: I48.0 (primary diagnosis) 2. At risk for stroke - ICD9: V15.89, ICD10: Z91.89 3. Anticoagulant long-term use - ICD9: V58.61, ICD10: Z79.01 CHADS2-Vasc Score Breakdown 3 - 4 Total Score 2 Age >= 75 years old 1 History of hypertension 1 History of vascular disease (this is questionable he is not aware of having any PVD) IMPRESSION: Mr. Villar has paroxysmal atrial fibrillation that was diagnosed earlier this year, he seems to have mild symptoms during episodes of arrhythmia. He has not been experiencing excessively bothersome symptoms during episodes. I had a detailed discussion with Mr. Villar regarding atrial fibrillation and its management. I reviewed the cornerstones or pillars of management including stroke prevention, ventricular response rate control, atrial rhythm control and patient modifiable risk factors and lifestyle changes relevant to atrial fibrillation. He should be screened for sleep apnea if he has not already, as this condition can contribute to the occurrences of atrial fibrillation. He should avoid excessive intake of alcohol or caffeine. He has been treated with oral anticoagulation therapy, seems to have favorable risk to benefit for such therapy. He is also being treated with a beta-mague for rate control. He feels that he is doing well with this treatment approach. I did discuss with him that advanced treatment strategies for the atrial fibrillation, such as antiarrhythmic drug therapy or catheter ablation, would be indicated for control of excessively bothersome symptoms. There is not convincing clinical data to support such treatments for reducing the risk of stroke or prolonging survival. So a strategy of suppressing atrial fibrillation by some means would be almost entirely based upon control of excessively bothersome symptoms. I did discuss with him the antiarrhythmic drug options, he seems to be a candidate for the most desirable class IC agents such as flecainide. This could be initiated as an outpatient without the need for inpatient hospitalization for cardiac monitoring during drug initiation. Another option would be catheter ablation, he would be a very good candidate for such a procedure. But again, I would recommend these advanced treatment strategies for the situation in which he is having excessively bothersome symptoms from the arrhythmia. I had a detailed discussion with Mr. Villar regarding my evaluation and recommendations. After our discussion, Mr. Villar expressed his understanding and I answered all his questions to his apparent satisfaction. He prefers for now to continue with his current treatment strategy. This is very reasonable. PLAN AND RECOMMENDATIONS: Continue with current plan of care from EP standpoint. He will continue to follow-up with Dr. Larkin of [facility]. I would be happy to evaluate Mr. Villar in the future if he determines that he wants to pursue an advanced treatment strategy for the atrial fibrillation such as antiarrhythmic drug therapy or catheter ablation. Chris Barrera MD 10/22/2023 Medical Decision Making: Problems: Moderate: New problem with uncertain prognosis Data: Unique source(s) for external note(s) reviewed: 1 Unique test result(s) reviewed: 3+ Unique test(s) ordered: 1 Risk: Moderate: Moderate risk from testing/treatment Medical Decision Making Level: 4 - Moderate documented in this encounter [facility] 10-22-2023 Note HNO ID: [id number] Author: CHRIS BARRERA MD Service: ? Author Type: Physician Type: Progress Notes Filed: 10/22/2023 12:11 Note Text: PRIMARY CARE PHYSICIAN: Cody Carrington [address] [place] [address] REFERRING PHYSICIAN: Sruthi Larkin MD [address] [facility] [address] [facility] [address] Patient Care Team: Cody Carrington MD as PCP - General (Internal Medicine) Sruthi Larkin as Specialty Medical Sonographer (Cardiology) CHIEF COMPLAINT: Evaluation of arrhythmia HISTORY OF PRESENT ILLNESS: Mr. Villar is a 83 year old male who presents today for evaluation of arrhythmia, history of atrial fibrillation, referred by Dr. Larkin of [facility]. Mr. Villar states he was diagnosed with the atrial fibrillation in early 2023. Primary care physician found him to be in atrial fibrillation, sent him to [place] [facility]. Admitted to hospital. Treated with medications including oral anticoagulation therapy (Eliquis), and increased metoprolol dosage. He was initially not much aware of the arrhythmia. But he has noticed that during episodes of atrial fibrillation he tires easily -- has effort intolerance, perhaps dizziness. No shortness of breath or chest pain. Episodes of atrial fibrillation have occurred about 3 or 4 times, lasting a few days sometimes. During episodes he is able to carry on with his day, he still works. He denies chest pain, shortness of breath, orthopnea, PND, syncope. No bleeding issues with the oral anticoagulation therapy. I have confirmed and edited as necessary, the PFSH and ROS obtained by others. 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 PAST SURGICAL HISTORY Procedure Laterality Date OPEN REPAIR OF ROTATOR CUFF ACUTE Right 2005 Rotator cuff repair, right TONSILLECTOMY PRIMARY/SECONDARY Tonsillectomy SOCIAL HISTORY Social History Tobacco Use Smoking status: Former Packs/day: 1.00 Years: 17.00 Additional pack years: 0.00 Total pack years: 17.00 Types: Cigarettes Quit date: 1977 Years since quittin.3 Smokeless tobacco: Never Vaping Use Vaping Use: Never used Substance Use Topics Alcohol use: Yes Alcohol/week: 1.0 standard drink of alcohol Types: 1 Cans of beer per week Drug use: Never FAMILY HISTORY Problem Relation Age of Onset other (Other) Mother no contact Coronary Artery Disease Father Heart Failure Father Diabetes Father ALLERGIES: ALLERGIES No Known Allergies MEDICATIONS: finasteride (PROSCAR) 5 mg tablet Take 1 tablet by mouth once daily apixaban (ELIQUIS) 5 mg tab(s) Take 1 tablet by mouth two times a day. metoprolol tartrate, short acting, (LOPRESSOR) 50 mg tablet Take 1 tablet by mouth two times a day. amLODIPine (NORVASC) 5 mg tablet Take 1 tablet by mouth once daily. levothyroxine (SYNTHROID) 112 mcg tablet Take 1 tablet by mouth once daily. Take on empty stomach. For thyroid benzonatate (TESSALON PERLES) 100 mg capsule Take 2 capsules by mouth three times a day as needed. hydrOXYzine HCl (ATARAX) 25 mg tablet Take 1 tablet by mouth daily at bedtime. losartan (COZAAR) 100 mg tablet Take 1 tablet by mouth once daily. valACYclovir (VALTREX) 500 mg tablet Take 1 tablet by mouth once daily. atorvastatin (LIPITOR) 40 mg tablet Take 1 tablet by mouth daily at bedtime. tamsulosin (FLOMAX) 0.4 mg Take 2 capsules by mouth daily at bedtime. cyclobenzaprine (FLEXERIL) 10 mg tablet Take 1 tablet by mouth twice daily as needed for muscle spasm. REVIEW OF SYSTEMS: Review of Systems Constitutional: Positive for malaise/fatigue (during episodes of atrial fibrillation). Negative for chills and fever. Respiratory: Negative for cough, hemoptysis, sputum production, shortness of breath and wheezing. Cardiovascular: Positive for palpitations. Negative for chest pain, orthopnea, claudication, leg swelling and PND. Gastrointestinal: Negative for abdominal pain, blood in stool, melena, nausea and vomiting. Genitourinary: Negative for dysuria, flank pain and hematuria. Musculoskeletal: Negative for falls. Skin: Negative for rash. Neurological: Positive for dizziness (during episodes of atrial fibrillation). Negative for focal weaknes (more content not included)... [facility] 10-22-2023 Nurse Note Patient has no cardiac complaints today. [facility] 10-22-2023 Nurse Note Patient has no cardiac complaints today. documented in this encounter [facility] 10-10-2023 Telephone encounter Note CJ 02/04/2023 NOV none scheduled Patient requesting refills as follows: Requested Prescriptions Pending Prescriptions Disp Refills finasteride (PROSCAR) 5 mg tablet [Pharmacy Med Name: Finasteride 5 MG Oral Tablet] 90 tablet 0 Sig: Take 1 tablet by mouth once daily Please review and advise. Evi Conteh RN [facility] 10-10-2023 Miscellaneous Notes CJ 02/04/2023 NOV none scheduled Patient requesting refills as follows: Requested Prescriptions Pending Prescriptions Disp Refills finasteride (PROSCAR) 5 mg tablet [Pharmacy Med Name: Finasteride 5 MG Oral Tablet] 90 tablet 0 Sig: Take 1 tablet by mouth once daily Please review and advise. Evi Conteh RN documented in this encounter [facility] 09-24-2023 Telephone encounter Note This is a patient who sees Dr. Sruthi cao in [place] and Dr. Larkin would like this patient be seen by one of the EP docs to assist with management of A-fib and decide on best management to maintain sinus rhythm. Please see if appointment is available in the next 1 to 4 weeks. Thanks Gabriel Francisco Addendum: Apparently Dr. Larkin is secondary was able to reach office and patient is scheduled for a an appointment in October which is randall Anaya [facility] Work Phone: 09-24-2023 Miscellaneous Notes This is a patient who sees Dr. Sruthi cao in [place] and Dr. Larkin would like this patient be seen by one of the EP docs to assist with management of A-fib and decide on best management to maintain sinus rhythm. Please see if appointment is available in the next 1 to 4 weeks. Thanks Gabriel Francisco Addendum: Apparently Dr. Larkin is secondary was able to reach office and patient is scheduled for a an appointment in October which is randall Anaya documented in this encounter [facility] 07-24-2023 History of Present illness Narrative This note was created using [employer]. Subjective Clint Villar is a 83 year old male. He was doing well, and saw cardiology in [place]. Cardiology consultation report was not received. No medication changes were made. Review of Systems Constitutional: Negative for fatigue. Respiratory: Negative for shortness of breath. Cardiovascular: Negative for chest pain, palpitations and leg swelling. Gastrointestinal: Negative for abdominal pain and blood in stool. Genitourinary: Negative for difficulty urinating. Neurological: Negative for dizziness, light-headedness and headaches. 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 Htn (Hypertension) Hyperlipidemia Hypothyroidism Herpes Infection Muscle Spasm of Back Impaired Fasting Glucose Obesity, Class II, Bmi 35-39.9 Erectile Dysfunction Urinary Frequency Anemia Positive Colorectal Cancer Screening Using Cologuard Test Elevated Psa New Onset Atrial Fibrillation (Hcc) Social History Tobacco Use Smoking status: Former Packs/day: 1.00 Years: 17.00 Additional pack years: 0.00 Total pack years: 17.00 Types: Cigarettes Quit date: 1977 Years since quittin.0 Smokeless tobacco: Never Vaping Use Vaping Use: Never used Substance Use Topics Alcohol use: Yes Alcohol/week: 1.0 standard drink of alcohol Types: 1 Cans of beer per week Drug use: Never ALLERGIES No Known Allergies Current Outpatient Medications Medication Sig apixaban (ELIQUIS) 5 mg tab(s) Take 1 tablet by mouth two times a day. metoprolol tartrate, short acting, (LOPRESSOR) 50 mg tablet Take 1 tablet by mouth two times a day. amLODIPine (NORVASC) 5 mg tablet Take 1 tablet by mouth once daily. levothyroxine (SYNTHROID) 112 mcg tablet Take 1 tablet by mouth once daily. Take on empty stomach. For thyroid finasteride (PROSCAR) 5 mg tablet Take 1 tablet by mouth once daily. hydrOXYzine HCl (ATARAX) 25 mg tablet Take 1 tablet by mouth daily at bedtime. losartan (COZAAR) 100 mg tablet Take 1 tablet by mouth once daily. valACYclovir (VALTREX) 500 mg tablet Take 1 tablet by mouth once daily. atorvastatin (LIPITOR) 40 mg tablet Take 1 tablet by mouth daily at bedtime. tamsulosin (FLOMAX) 0.4 mg Take 2 capsules by mouth daily at bedtime. cyclobenzaprine (FLEXERIL) 10 mg tablet Take 1 tablet by mouth twice daily as needed for muscle spasm. benzonatate (TESSALON PERLES) 100 mg capsule Take 2 capsules by mouth three times a day as needed. (Patient not taking: Reported on 06/23/2023) No current facility-administered medications for this visit. Objective Blood Pressure 136/68 (BP Site: Left Arm, BP Position: Sitting) Pulse (Abnormal) 52 Temperature 36.3 C (97.4 F) (Temporal) Respiration 12 Weight 96.6 kg (213 lb) Body Mass Index 33.36 kg/m Physical Exam Constitutional: Appearance: Normal appearance. Cardiovascular: Rate and Rhythm: Bradycardia present. Rhythm irregular. Heart sounds: No murmur heard. No gallop. Pulmonary: Effort: No respiratory distress. Breath sounds: No wheezing or rales. Musculoskeletal: Right lower leg: No edema. Left lower leg: No edema. Neurological: General: No focal deficit present. Mental Status: He is alert. Latest Ref Rng 07/18/2023 Protein, Total 6.3 - 8.0 g/dL 6.9 Albumin 3.9 - 4.9 g/dL 4.0 Calcium 8.5 - 10.2 mg/dL 9.2 Bilirubin, Total 0.2 - 1.3 mg/dL 0.3 Alkaline Phosphatase 38 - 113 U/L 52 AST 14 - 40 U/L 15 ALT 10 - 54 U/L 10 Glucose 74 - 99 mg/dL 102 (H) BUN 9 - 24 mg/dL 13 Creatinine 0.73 - 1.22 mg/dL 1.04 Sodium 136 - 144 mmol/L 143 Potassium 3.7 - 5.1 mmol/L 4.1 Chloride 97 - 105 mmol/L 105 CO2 22 - 30 mmol/L 26 Anion Gap 9 - 18 mmol/L 12 eGFR >=60 mL/min/1.73m 72 WBC 3.70 - 11.00 k/uL 5.48 RBC 4.20 - 6.00 m/uL 4.11 (L) Hemoglobin 13.0 - 17.0 g/dL 13.0 Hematocrit 39.0 - 51.0 % 40.7 MCV 80.0 - 100.0 fL 99.0 MCH 26.0 - 34.0 pg 31.6 MCHC 30.5 - 36.0 g/dL 31.9 RDW-CV 11.5 - 15.0 % 14.7 Platelet Count 150 - 400 k/uL 177 MPV 9.0 - 12.7 fL 9.9 Absolute nRBC <0.01 k/uL <0.01 Cholesterol, Total <200 mg/dL 130 Triglyceride <150 mg/dL 97 HDL Cholesterol >39 mg/dL 46 Non HDL Cholesterol <130 mg/dL 84 Fasting Time hrs 12 VLDL Cholesterol <30 mg/dL 19 TC:HDL Ratio <5.10 2.83 LDL Cholesterol <100 mg/dL 65 LDL:HDL Ratio <2.54 1.41 TSH 0.270 - 4.200 mIU/L 2.930 Legend: (H) High (L) Low Assessment and Plan 1. New onset atrial fibrillation (HCC) - ICD9: 427.31, ICD10: I48.91 (primary diagnosis) Continue current regimen. Request cardiology consultation report. 2. Primary hypertension - ICD9: 401.9, ICD10: I10 - Improving control - Continue current medications 3. Obesity, Class I, BMI 30-34.9 - ICD9: 278.00, ICD10: E66.9 - Weight decreasing. 4. Anemia, unspecified type - ICD9: 285.9, ICD10: D64.9 - Mild. Asymptomatic. Monitor. - CBC 5. Hypothyroidism, unspecified type - ICD9: 244.9, ICD10: E03.9 - continue current dose of Synthroid. 6. Impaired fasting glucose - ICD9: 790.21, ICD10: R73.01 - Low carb diet. - BASIC METABOLIC PNL - HGB A1C 7. Elevated PSA - ICD9: 790.93, ICD10: R97.20 - Monitor. He declined prostate biopsy in the past. - PSA/PROSTSPECAG DIAG Cody Carrington MD documented in this encounter [facility] 06-23-2023 Instructions Cody Carrington MD - 06/23/2023 3:25 PM EST BLOOD WORK ORDERED. documented in this encounter [facility] 06-23-2023 History of Present illness Narrative This note was created using [email or web address]. Subjective Patient presents with: [facility] F/U Clint Villar is a 82 year old male admitted for acute dizziness, orthostatic hypotension, new onset atrial fibrillation 06/16-06/17/23. He was treated with IV diltiazem for rapid a. Fib, metoprolol was increased, and apixiban was started. He converted to NSR. Amlodipine was reduced to 5 mg daily. His dizziness was much better. His azotemia improved. Troponins were normal. TSH was normal. CXR showed left atelectasis. Echo showed EF 60%, moderate LAE. He was discharged and advised follow up. Review of Systems Constitutional: Negative for fatigue and fever. Respiratory: Negative for shortness of breath. Cardiovascular: Negative for chest pain, palpitations and leg swelling. Gastrointestinal: Negative. Musculoskeletal: Negative for gait problem. Neurological: Positive for light-headedness. Negative for dizziness, weakness and headaches. 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 Htn (Hypertension) Hyperlipidemia Hypothyroidism Herpes Infection Muscle Spasm of Back Impaired Fasting Glucose Obesity, Class II, Bmi 35-39.9 Erectile Dysfunction Urinary Frequency Anemia Positive Colorectal Cancer Screening Using Cologuard Test Elevated Psa Social History Tobacco Use Smoking status: Former Packs/day: 1.00 Years: 17.00 Additional pack years: 0.00 Total pack years: 17.00 Types: Cigarettes Quit date: 1977 Years since quittin.9 Smokeless tobacco: Never Vaping Use Vaping Use: Never used Substance Use Topics Alcohol use: Yes Alcohol/week: 1.0 standard drink of alcohol Types: 1 Cans of beer per week Drug use: Never Current Outpatient Medications Medication Sig finasteride (PROSCAR) 5 mg tablet Take 1 tablet by mouth once daily. hydrOXYzine HCl (ATARAX) 25 mg tablet Take 1 tablet by mouth daily at bedtime. losartan (COZAAR) 100 mg tablet Take 1 tablet by mouth once daily. valACYclovir (VALTREX) 500 mg tablet Take 1 tablet by mouth once daily. atorvastatin (LIPITOR) 40 mg tablet Take 1 tablet by mouth daily at bedtime. tamsulosin (FLOMAX) 0.4 mg Take 2 capsules by mouth daily at bedtime. cyclobenzaprine (FLEXERIL) 10 mg tablet Take 1 tablet by mouth twice daily as needed for muscle spasm. apixaban (ELIQUIS) 5 mg tab(s) Take 1 tablet by mouth two times a day. metoprolol tartrate, short acting, (LOPRESSOR) 50 mg tablet Take 1 tablet by mouth two times a day. amLODIPine (NORVASC) 5 mg tablet Take 1 tablet by mouth once daily. levothyroxine (SYNTHROID) 112 mcg tablet Take 1 tablet by mouth once daily. Take on empty stomach. For thyroid benzonatate (TESSALON PERLES) 100 mg capsule Take 2 capsules by mouth three times a day as needed. (Patient not taking: Reported on 06/23/2023) No current facility-administered medications for this visit. Objective BP 120/56 (BP Site: Left Arm, BP Position: Sitting, BP Cuff Size: Large Adult) Pulse (!) 52 Temp 36.6 C (97.9 F) (Temporal) Resp 12 Wt 94.3 kg (208 lb) BMI 32.58 kg/m Physical Exam Constitutional: General: He is not in acute distress. Appearance: He is not ill-appearing. HENT: Head: Normocephalic. Eyes: Extraocular Movements: Extraocular movements intact. Cardiovascular: Rate and Rhythm: Regular rhythm. Bradycardia present. Heart sounds: No murmur heard. No gallop. Pulmonary: Effort: No respiratory distress. Breath sounds: No wheezing or rales. Abdominal: General: There is no distension. Tenderness: There is no abdominal tenderness. Musculoskeletal: Right lower leg: No edema. Left lower leg: No edema. Neurological: General: No focal deficit present. Mental Status: He is alert. Coordination: Coordination normal. Gait: Gait normal. Assessment and Plan 1. New onset atrial fibrillation (HCC) - ICD9: 427.31, ICD10: I48.91 (primary diagnosis) Converted to NSR. Continue medications. - APIXABAN 5 MG TABLET - METOPROLOL TARTRATE 50 MG TABLET - CONSULT TO CARDIOLOGY. He has [employer] and worked in [employer]. Referral ordered. 2. Primary hypertension - ICD9: 401.9, ICD10: I10 - Controlled - Continue current medications 3. Acquired hypothyroidism - ICD9: 244.9, ICD10: E03.9 - continue current dose of Synthroid - LEVOTHYROXINE 112 MCG TABLET Cody Carrington MD documented in this encounter [facility] 06-17-2023 Discharge summary Note Date/Time June 16, 2023 3:57pm [facility] Medical Records Department [address] [place] [id number] Emergency Department Summary 06/16/23 MR#: [id number] Acct: [id number] Name: CLINT VILLAR Rep #:[id number] : 1940 82 From: Zoë Sparks DO PCP: Dr. Cody Carrington MD Status:A DM HAIR Location: [place] [address] HPI History of Present Illness Chief Complaint: Palpitations Detail of Chief Complaint: Lightheadedness and new onset A-fib Informant: patient Narrative Narrative: Patient presents to the emergency department with complaint of feeling lightheaded x 4 days. Patient was seen by his primary care physician today in the office and had an EKG that showed new onset atrial fibrillation. Patient was referred to the emergency department by his primary care physician. Patientdenies chest pain or shortness of breath. He denies recent illness. Denies recent travel or surgery. No prior history of A-fib. No other cardiac history. He does have history of hypertension as well as high cholesterol and history ofhypothyroidism. PFSH PFS Medical History (Updated 06/16/23 @ 17:[address] Lor Aguilar DO) Anxiety BPH (benign prostatic hyperplasia) CKD (chronic kidney disease) Hyperlipidemia Hypertension Hypothyroidism Obesity (BMI 30.0-34.9) Home Medications atorvastatin 40 mg tablet 40 mg PO QHS cholesterol 07/08/19 [History Last Taken 06/14/23] levothyroxine 88 mcg tablet 88 mcg PO DAILY thyroid 07/08/19 [History Last Taken 06/15/23] losartan 100 mg tablet 100 mg PO QHS bp 07/08/19 [History Last Taken 06/15/23] metoprolol tartrate 25 mg tablet 25 mg PO BID heart 07/08/19 [History Last Taken 06/15/23] valacyclovir 500 mg tablet 500 mg PO DAILY herpes 07/03/20 [History Last Taken 06/15/23] amlodipine 10 mg tablet 10 mg PO DAILY blood pressure 06/16/23 [History Last Taken 06/15/23] hydroxyzine HCl 25 mg tablet 25 mg PO QHS anxiety 06/16/23 [History Last Taken 06/15/23] tamsulosin 0.4 mg capsule 0.4 mg PO BID 06/16/23 [History Last Taken 06/14/23] Allergy/AdvReac Type Severity Reaction Status Date / Time No Known Allergies Allergy Unverified 07/03/20 10:14 Family History (Updated 06/16/23 @ 17:[address] Lor Aguilar DO) Other Hyperlipidemia Hypertension Thyroid disorder Social History (Updated 06/16/23 @ 17:[address] Lor Aguilar DO) household members: spouse housing: house Smoking Status: Never smoker alcohol intake: never substance use type: does not use ROS ROS ED Review of Systems ROS Unobtainable: other Constitutional Constitutional ED: Reports lethargy; Denies chills, fever(s), sweats or weight loss Eyes Eyes: Denies blurry vision, change in vision or diplopia ENT ENT ED: Denies rhinorrhea or sore throat Cardiovascular Cardiovascular: Reports palpitations; Denies chest pain, orthopnea or racing heartbeat Respiratory/Chest Respiratory/Chest: Denies cough, dyspnea, dyspnea on exertion, orthopnea or sputum Gastrointestinal Gastrointestinal: Denies abdominal pain, diarrhea, nausea or vomiting Genitourinary Genitourinary ED: Denies dysuria, hematuria or urinary frequency Musculoskeletal Musculoskeletal: Denies arthralgias, back pain, myalgias or neck pain Integumentary Denies abscess, Abrasions or rash Neurologic Neurologic: Denies headache(s) or weakness Psychiatric Psychiatric: Denies anxiety, depression or suicidal thoughts Endocrine Endocrinology: Denies polydipsia, polyphagia or polyuria Hematologic/Lymphatic Hematologic/Lymphatic: Denies easy bleeding, easy bruising or lymphadenopathy Allergic/Immunologic Allergic/Immunologic ED: Denies mouth swelling, tongue swelling or urticaria EXAM Physical Exam Const Vital Signs: 06/16/23 15:39 06/16/23 15:45 06/16/23 16:15 Temperature 96.5 F L Temperature Source Temporal Pulse Rate 87 105 H 101 H Respiratory Rate 16 17 Blood Pressure 134/86 H 121/80 H Blood Pressure Mean 102 93 Pulse Ox 98 94 Oxygen Delivery Method Room Air Room Air Positive well nourished and well developed General Appearance ED: well developed and NAD HEENT Reports TM's clear and moist mucous membranes normocephalic and atraumatic; Negative for trauma or tenderness Tympanic Membrane ED: Yes TM's clear Eyes PERRL and EOMs intact bilaterally General Eye ED: Negative for pale conjunctiva or scleral icterus Neck no lymphadenopathy, supple and no JVD General: Negative for tenderness Chest Wall inspection of chest normal and palpation of chest normal Chest: Negative for tenderness Resp normal respiratory effort and clear to auscultation bilaterally Effort and Inspection: Negative for respiratory distress or pain with movement Auscultation: Negative for rhonchi, wheezes or diminished lung sounds Cardio S1 normal heart sound, S2 normal heart sound and no murmurs; Negative for regular rate or regular rhythm Rate: tachycardic Peripheral Pulses: pulses 2+ throughout GI normal to inspection, nondistended, normoactive bowel sounds, soft to palpation,non-tender, non-distended and no masses Back/Spine no CVA tenderness and no thoracic nor lumbar tenderness Extremity normal to inspection General Extremety ED: Negative for edema General Extremity: Negative for edema Neuro oriented x3, CN's II-XII intact bilaterally, no sensory deficits noted and gait normal Sensorium / Orientation: awake, alert, oriented to person, oriented to place andoriented to time Motor Exam: strength 5/5 throughout and strength abnormal Psych mental status grossly normal Skin no rashes or lesions noted and no wounds MDM MDM MDM Narrative Medical decision making narrative: Patient presents with symptoms of lightheadedness and new onset A-fib. EKG obtained on arrival did show atrial fibrillation with ventricular rate of [address] changes. While evaluating patient on monitor heart rate up to the low 100s. I will order Cardizem 10 mg IV bolus and obtain basic labs. CBC with differential white count 12.5 with hemoglobin 14 and platelet count of 191. Troponin normal at 28. Chemistries unremarkable. BUN was 20 and creatinine 1.42. Patient did receive Cardizem 10 mg IV bolus and heart rate nowin the 70s and 80s. Will discuss case with hospitalist to evaluate patient for admission. Patient apparently had systolic blood pressures in the 90s at home today and also was orthostatic positive in his primary care physician's office. Lab Data Attestation: I reviewed the patient's lab results. Labs: Laboratory Results - last 24 hr 06/16/23 15:45 WBC 12.5 H RBC 4.45 L Hgb 14.0 Hct 42.6 MCV 95.7 H MCH 31.5 MCHC 32.9 RDW Std Deviation 49.2 H RDW Coeff of Briana 14.0 Plt Count 191 MPV 9.3 Immature Gran % (Auto) 0.500 Neut % (Auto) 69.4 Lymph % (Auto) 16.6 L [place] % (Auto) 13.0 H Eos % (Auto) 0.2 Baso % (Auto) 0.3 Absolute Neuts (auto) 8.7 H Absolute Lymphs (auto) 2.08 Nucleated RBC % 0 Differential Comment SCANNED Diff Path Review May foll Sodium 135 L Potassium 4.0 Chloride 100 Carbon Dioxide 25.0 Anion Gap 10 BUN 20 H Creatinine 1.42 H Estim Creat Clear Calc 45.74 Est GFR (MDRD) Af Amer 62 Est GFR (MDRD) Non-Af 51 L BUN/Creatinine Ratio 14.1 Glucose 125 H Calcium 9.7 Troponin I High Sens 28 Radiography Diagnostic Testing: Clinical Impression(s) from Imaging Studies Chest X-Ray 06/16/23 16:10 IMPRESSION: Left basilar pulmonary opacity may be atelectasis or pneumonia. Electronically Signed: Con Carvajal DO at 16:38 EST , 1 view chest x-ray obtained interpreted by myself as no evidence of infiltrate or pneumothorax or acute disease process. Radiology felt there was left basilaropacity which could be atelectasis or pneumonia. Clinically I do not feel he has pneumonia. EKG Initial EKG: Attestation: I personally reviewed and interpreted this EKG as follows: Comments: Atrial fibrillation with ventricular rate of [address] changes Discharge Plan Dx/Rx/DC Orders Clinical Impression: Transient hypotension, Dizziness, Atrial fibrillation with RVR Disposition Disposition: Acute Care Hospital [facility] What to do if you have Problems For any increased pain, shortness of breath, bleeding, nausea or vomiting, chestpain, or any unexpected problems, contact your Primary Care Provider. Call [facility] ([phone]) or report to the closest Emergency Room. Call 911 if necessary. 06/16/23 2340 <Electronically signed by Zoë Sparks DO> Cosigner Signature (if applicable): CC: Dr. Cody Carrington MD ~ Signed [facility] Work Phone: 1(286) 995-745402-12-2024 History and physical note Author Lor Aguilar [facility] June 16, 2023 5:23pm Note Date/Time June 16, 2023 5:01pm [facility] Medical Records Department [address] [place] [address] H&P Exam - Hospitalist 06/16/231651 MR#: [id number] Acct: [id number] Name: CLINT VILLAR Rep #:[id number] : 1940 82 From: Lor Aguilar DO PCP: Dr. Cody Carrington MD Status:A DM HAIR Location: [place] [id number] HPI - General General Date of Admission: 06/16/23 Date of Service: 06/16/23 Chief Complaint: New onset Afib with RVR HPI Narrative CLINT VILLAR, is a 82 M who presented to the emergency department [facility] on 06/16/2023 complaining of lightheadedness. The patient states he has had some intermittent lightheadedness that has been becoming more persistent since Friday. He stated he woke up this morning and was markedly lightheaded so he took his blood pressure and he noted it to be low. He did nottake his home blood pressure medication this morning due to his blood pressure being low. He went to his primary care physician's office (Dr. Carrington). EKGwas done as well as orthostatic vitals. Orthostatic vitals were positive and his EKG showed him to be in A-fib with RVR which is a new diagnosis for him. Patient states he is familiar with A-fib as his has A-fib and has a pacemaker. Upon arrival here he was found to be in A-fib with RVR and given 10 mg of Cardizem which has slowed his heart rate down into the 90s. The patient was able to get up and use the bathroom and felt that his lightheadedness was some improved. He denied any chest pain, shortness of breath or lower extremityedema. To his knowledge he has never had A-fib previously. He states he snoresbut does not think he has any sleep apnea and has never been diagnosed as such. Vital signs on presentation showed temperature of 96.5, current heart rate was 96, blood pressure was 129/76, respiratory rate 16 oxygen saturations are 97% room air. CBC demonstrates a mild leukocytosis with a white count of 12.5. He has a mild monocytosis at 13%. Chemistry panel shows mild hyponatremia with a sodium of 135 and a BUN of 20 with a serum creatinine of 1.42. Baseline creatinine is unknown, however, reviewing previous records it does appear he hassome baseline creatinine dysfunction. Initial troponin was 28. EKG is A-fib with a heart rate of 96, normal intervals and no ST-T wave changes consistent with acute ischemia. Chest x-ray was performed is unremarkable for any acute findings upon my review. [facility] Medical History (Updated 06/16/23 @ 17:[address] Lor Aguilar DO) Anxiety BPH (benign prostatic hyperplasia) CKD (chronic kidney disease) Hyperlipidemia Hypertension Hypothyroidism Obesity (BMI 30.0-34.9) Home Medications atorvastatin 40 mg tablet 40 mg PO QHS cholesterol 07/08/19 [History Last Taken 06/14/23] levothyroxine 88 mcg tablet 88 mcg PO DAILY thyroid 07/08/19 [History Last Taken 06/15/23] losartan 100 mg tablet 100 mg PO QHS bp 07/08/19 [History Last Taken 06/15/23] metoprolol tartrate 25 mg tablet 25 mg PO BID heart 07/08/19 [History Last Taken 06/15/23] valacyclovir 500 mg tablet 500 mg PO DAILY herpes 07/03/20 [History Last Taken 06/15/23] amlodipine 10 mg tablet 10 mg PO DAILY blood pressure 06/16/23 [History Last Taken 06/15/23] hydroxyzine HCl 25 mg tablet 25 mg PO QHS anxiety 06/16/23 [History Last Taken 06/15/23] tamsulosin 0.4 mg capsule 0.4 mg PO BID 06/16/23 [History Last Taken 06/14/23] Allergy/AdvReac Type Severity Reaction Status Date / Time No Known Allergies Allergy Unverified 07/03/20 10:14 Family History (Updated 06/16/23 @ 17:[address] Lor Aguilar DO) Other Hyperlipidemia Hypertension Thyroid disorder no surgical history Social History (Updated 06/16/23 @ 17:[address] Lor Aguilar DO) household members: spouse housing: house Smoking Status: Never smoker alcohol intake: never substance use type: does not use ROS Constitutional Constitutional: Denies anorexia, change in weight, chills, fatigue, fever(s), malaise, night sweats, weakness or other Eyes Eyes: Denies blurry vision, change in eye color, change in vision, discharge from eye(s), double vision, erythema, eye pain, loss of vision or other ENT HEENT: Denies abnormal hearing, dysphagia, ear pain, epistaxis, headache(s), hearing loss, nasal congestion, nasal discharge, post nasal drip, sinus pressure, sore throat or other Cardiovascular Cardiovascular: Reports lightheadedness and rapid heart rate; Denies chest pain,claudication, dyspnea on exertion, edema, orthopnea, palpitations, paroxysmal nocturnal dyspnea, syncope or other Respiratory/Chest Respiratory/Chest: Denies cough, dyspnea, excessive phlegm production, hemoptysis, productive cough, shortness of breath at rest, shortness of breath with exertion, wheezing or other Gastrointestinal Gastrointestinal: Denies abdominal pain, coffee ground emesis, constipation, diarrhea, dyspepsia, hematemesis, hematochezia, loose stools, melena, nausea, vomiting or other Genitourinary Genitourinary: Reports difficulty urinating, nocturia and urinary hesitancy; Denies burning urination, dysuria, hematuria, urinary frequency, urinary incontinence, urinary urgency or other Musculoskeletal Musculoskeletal: Denies arthralgias, back pain, joint pain, joint stiffness, joint swelling, myalgias, neck pain or other Neurologic Neurologic: Denies abnormal gait, abnormal speech, confusion, disequilibrium, dizziness, focal weakness, headache(s), numbness, paresthesias, seizure-like activity, seizures, syncope, tingling, tremor(s) or other Psychiatric Psychiatric: Reports anxiety; Denies depression, homicidal ideation, suicidal ideation or other Endocrine Endocrinology: Denies change in body appearance, cold intolerance, excessive sweating, heat intolerance, polydipsia, polyuria or other Hematologic/Lymphatic Hematologic/Lymphatic: Denies anemia, easy bleeding, easy bruising, lymphadenopathy or other Allergic/Immunologic Allergic/Immunologic: Denies rhinitis, hives, eczemia, asthma or other Vital Signs Vital Signs Vital Signs: 06/16/23 15:39 06/16/23 15:45 06/16/23 16:15 Temperature 96.5 F L Temperature Source Temporal Pulse Rate 87 105 H 101 H Respiratory Rate 16 17 Blood Pressure 134/86 H 121/80 H Blood Pressure Mean 102 93 Pulse Ox 98 94 Oxygen Delivery Method Room Air Room Air Weight Weight: 95.708 kg Body Mass Index (BMI) 33.0 Physical Exam Const alert, oriented x3, no apparent distress, healthy appearing and well nourished; Negative for average body habitus Constitutional Narrative: Obese, elderly, white male, sitting up in bed, appears comfortable, nontoxic appearing General Appearance: cooperative HEENT normocephalic, head/scalp atraumatic and moist oral mucous membranes HEENT Narrative: Mild hearing loss, dentition is fair for age, Mallampati is 2, no thrush Eyes PERRL, EOMs intact bilaterally and conjunctivae normal Eyes Narrative: No scleral icterus Neck no lymphadenopathy, supple, no JVD and no carotid bruits Neck Narrative: Trachea midline, no thyroid enlargement or nodules noted on exam Resp normal respiratory effort, no retractions, no use of accessory muscles and clearto auscultation bilaterally Auscultation: Negative for rales, rhonchi or wheezes Cardio regular rate, S1 normal heart sound, S2 normal heart sound, no murmurs, no rub, no gallops and no clicks Cardio Narrative: Irregularly irregular rhythm with current rate at 96 GI normal to inspection, nondistended, normoactive bowel sounds, soft to palpation and non-tender Extremity no clubbing, cyanosis or edema Extremity Narrative: Pedal pulses are 2+, radial pulses are 2+ Skin no rashes or lesions noted, no wounds, skin turgor normal, no jaundice, no petechiae and no mottling Neuro oriented x3, CN's II-XII intact bilaterally, moves all extremities and no focal motor deficits Neuro Narrative: Normal gait Speech: speech normal Psych affect normal Psych Narrative: Very pleasant, interacts appropriately Results Lab / Micro Data 06/16/23 15:45 06/16/23 15:45 Labs: Laboratory Results - last 24 hr 06/16/23 15:45: WBC 12.5 H, RBC 4.45 L, Hgb 14.0, Hct 42.6, MCV 95.7 H, MCH 31.5, MCHC 32.9, RDW Std Deviation 49.2 H, RDW Coeff of Briana 14.0, Plt Count 191,MPV 9.3, Immature Gran % (Auto) 0.500, Neut % (Auto) 69.4, Lymph % (Auto) 16.6 L, [place] % (Auto) 13.0 H, Eos % (Auto) 0.2, Baso % (Auto) 0.3, Absolute Neuts (auto) 8.7 H, Absolute Lymphs (auto) 2.08, Nucleated RBC % 0, Differential Comment SCANNED, Diff Path Review September foll, Sodium 135 L, Potassium 4.0, Chloride 100, Carbon Dioxide 25.0, Anion Gap 10, BUN 20 H, Creatinine 1.42 H, Estim Creat Clear Calc 45.74, Est GFR (MDRD) Af Amer 62, Est GFR (MDRD) Non-Af 51 L, BUN/Creatinine Ratio 14.1, Glucose 125 H, Calcium 9.7, Troponin I High Sens 28 Assessment & Plan Assessment/Plan (1) Atrial fibrillation with RVR: (2) Transient hypotension: (3) Lightheadedness: (4) Elevated serum creatinine: (5) Hyperglycemia: (6) Leukocytosis: PLAN: Plan A-fib with RVR -New onset -Start Eliquis 5 mg p.o. twice daily -Hold home antihypertensives as we will increase his home Metoprolol from 25 mg p.o. twice daily to 50 mg p.o. twice daily -Check TSH -Check echocardiogram -Monitor on telemetry -Highly suspect the patient has been in A-fib since Friday at the very least Lightheadedness with transient hypotension -Likely related to the above -Hold home amlodipine, losartan -Patient did have orthostatic vital signs that were positive at his primary carephysician's office -Patient was given IV fluids in the emergency department we will hold off on anyfurther fluids at this time -Monitor on telemetry Elevated serum creatinine -Baseline is unknown but suspect CKD -Patient did receive IV fluids in the emergency department -Repeat BMP in a.m. -Avoid nephrotoxins as able -No further workup needed at this time Hyperglycemia -No official diagnosis of diabetes--> mild elevation on admission labs and nonfasting -Will follow with BMP in a.m. -If hyperglycemia persists could assess with hemoglobin A1c or refer to outpatient provider for follow-up Leukocytosis -Mild at 12.5 -Patient does not have left shift but does have a monocytosis -Repeat CBC in a.m. -Quite possibly could be reactive with the above Hypertension -Patient was orthostatic positive in his primary care physician's office -Hold home amlodipine 10 mg daily -Hold home losartan 10 mg daily -Continue metoprolol and increase from 25 to 50 mg p.o. twice daily -Will go ahead and continue Flomax twice daily for now -As needed hydralazine available for systolic pressure greater than 160 Hypothyroidism -Check TSH with new onset A-fib -Continue home levothyroxine Hyperlipidemia -Continue home statin BPH with obstruction -Continue home Flomax Anxiety -Patient is on hydroxyzine nightly -Will continue for now but recommend possibly discontinuing as it could cause increased risk of fall with his age being greater than 72 DVT prophylaxis -Patient on full anticoagulation with Eliquis CODE STATUS -Full code is verified on admission Charges/Coding Visit Charges Inpatient E&M: 68275 Init Hosp L2 06/16/23 1723 <Electronically signed by Lor Aguilar DO> Cosigner Signature (if applicable): CC: Dr. Lor Aguilar DO; Dr. Cody Carrington MD~ Signed [facility] Work Phone: 1(764) 199-604502-12-2024 History and physical note Author Lor Aguilar [facility] June 16, 2023 5:23pm Note Date/Time June 16, 2023 5:01pm [facility] Medical Records Department [address] [place] [address] H&P Exam - Hospitalist 06/16/23 1652 MR#: [id number] Acct: [id number] Name: CLINT VILLAR Rep #:[id number] : 1940 82 From: Lor Aguilar DO PCP: Dr. Cody Carrington MD Status:A DM HAIR Location: [place] [id number] HPI - General General Date of Admission: 06/16/23 Date of Service: 06/16/23 Chief Complaint: New onset Afib with RVR HPI Narrative CLINT VILLAR, is a 82 M who presented to the emergency department [facility] on 06/16/2023 complaining of lightheadedness. The patient states he has had some intermittent lightheadedness that has been becoming more persistent since Friday. He stated he woke up this morning and was markedly lightheaded so he took his blood pressure and he noted it to be low. He did nottake his home blood pressure medication this morning due to his blood pressure being low. He went to his primary care physician's office (Dr. Carrington). EKGwas done as well as orthostatic vitals. Orthostatic vitals were positive and his EKG showed him to be in A-fib with RVR which is a new diagnosis for him. Patient states he is familiar with A-fib as his has A-fib and has a pacemaker. Upon arrival here he was found to be in A-fib with RVR and given 10 mg of Cardizem which has slowed his heart rate down into the 90s. The patient was able to get up and use the bathroom and felt that his lightheadedness was some improved. He denied any chest pain, shortness of breath or lower extremityedema. To his knowledge he has never had A-fib previously. He states he snoresbut does not think he has any sleep apnea and has never been diagnosed as such. Vital signs on presentation showed temperature of 96.5, current heart rate was 96, blood pressure was 129/76, respiratory rate 16 oxygen saturations are 97% room air. CBC demonstrates a mild leukocytosis with a white count of 12.5. He has a mild monocytosis at 13%. Chemistry panel shows mild hyponatremia with a sodium of 135 and a BUN of 20 with a serum creatinine of 1.42. Baseline creatinine is unknown, however, reviewing previous records it does appear he hassome baseline creatinine dysfunction. Initial troponin was 28. EKG is A-fib with a heart rate of 96, normal intervals and no ST-T wave changes consistent with acute ischemia. Chest x-ray was performed is unremarkable for any acute findings upon my review. [facility] Medical History (Updated 06/16/23 @ 17:[address] Lor Aguilar, ) Anxiety BPH (benign prostatic hyperplasia) CKD (chronic kidney disease) Hyperlipidemia Hypertension Hypothyroidism Obesity (BMI 30.0-34.9) Home Medications atorvastatin 40 mg tablet 40 mg PO QHS cholesterol 07/08/19 [History Last Taken 06/14/23] levothyroxine 88 mcg tablet 88 mcg PO DAILY thyroid 07/08/19 [History Last Taken 06/15/23] losartan 100 mg tablet 100 mg PO QHS bp 07/08/19 [History Last Taken 06/15/23] metoprolol tartrate 25 mg tablet 25 mg PO BID heart 07/08/19 [History Last Taken 06/15/23] valacyclovir 500 mg tablet 500 mg PO DAILY herpes 07/03/20 [History Last Taken 06/15/23] amlodipine 10 mg tablet 10 mg PO DAILY blood pressure 06/16/23 [History Last Taken 06/15/23] hydroxyzine HCl 25 mg tablet 25 mg PO QHS anxiety 06/16/23 [History Last Taken 06/15/23] tamsulosin 0.4 mg capsule 0.4 mg PO BID 06/16/23 [History Last Taken 06/14/23] Allergy/AdvReac Type Severity Reaction Status Date / Time No Known Allergies Allergy Unverified 07/03/20 10:14 Family History (Updated 06/16/23 @ 17:[address] Lor Aguilar DO) Other Hyperlipidemia Hypertension Thyroid disorder no surgical history Social History (Updated 06/16/23 @ 17:[address] Lor Aguilar DO) household members: spouse housing: house Smoking Status: Never smoker alcohol intake: never substance use type: does not use ROS Constitutional Constitutional: Denies anorexia, change in weight, chills, fatigue, fever(s), malaise, night sweats, weakness or other Eyes Eyes: Denies blurry vision, change in eye color, change in vision, discharge from eye(s), double vision, erythema, eye pain, loss of vision or other ENT HEENT: Denies abnormal hearing, dysphagia, ear pain, epistaxis, headache(s), hearing loss, nasal congestion, nasal discharge, post nasal drip, sinus pressure, sore throat or other Cardiovascular Cardiovascular: Reports lightheadedness and rapid heart rate; Denies chest pain,claudication, dyspnea on exertion, edema, orthopnea, palpitations, paroxysmal nocturnal dyspnea, syncope or other Respiratory/Chest Respiratory/Chest: Denies cough, dyspnea, excessive phlegm production, hemoptysis, productive cough, shortness of breath at rest, shortness of breath with exertion, wheezing or other Gastrointestinal Gastrointestinal: Denies abdominal pain, coffee ground emesis, constipation, diarrhea, dyspepsia, hematemesis, hematochezia, loose stools, melena, nausea, vomiting or other Genitourinary Genitourinary: Reports difficulty urinating, nocturia and urinary hesitancy; Denies burning urination, dysuria, hematuria, urinary frequency, urinary incontinence, urinary urgency or other Musculoskeletal Musculoskeletal: Denies arthralgias, back pain, joint pain, joint stiffness, joint swelling, myalgias, neck pain or other Neurologic Neurologic: Denies abnormal gait, abnormal speech, confusion, disequilibrium, dizziness, focal weakness, headache(s), numbness, paresthesias, seizure-like activity, seizures, syncope, tingling, tremor(s) or other Psychiatric Psychiatric: Reports anxiety; Denies depression, homicidal ideation, suicidal ideation or other Endocrine Endocrinology: Denies change in body appearance, cold intolerance, excessive sweating, heat intolerance, polydipsia, polyuria or other Hematologic/Lymphatic Hematologic/Lymphatic: Denies anemia, easy bleeding, easy bruising, lymphadenopathy or other Allergic/Immunologic Allergic/Immunologic: Denies rhinitis, hives, eczemia, asthma or other Vital Signs Vital Signs Vital Signs: 06/16/23 15:39 06/16/23 15:45 06/16/23 16:15 Temperature 96.5 F L Temperature Source Temporal Pulse Rate 87 105 H 101 H Respiratory Rate 16 17 Blood Pressure 134/86 H 121/80 H Blood Pressure Mean 102 93 Pulse Ox 98 94 Oxygen Delivery Method Room Air Room Air Weight Weight: 95.708 kg Body Mass Index (BMI) 33.0 Physical Exam Const alert, oriented x3, no apparent distress, healthy appearing and well nourished; Negative for average body habitus Constitutional Narrative: Obese, elderly, white male, sitting up in bed, appears comfortable, nontoxic appearing General Appearance: cooperative HEENT normocephalic, head/scalp atraumatic and moist oral mucous membranes HEENT Narrative: Mild hearing loss, dentition is fair for age, Mallampati is 2, no thrush Eyes PERRL, EOMs intact bilaterally and conjunctivae normal Eyes Narrative: No scleral icterus Neck no lymphadenopathy, supple, no JVD and no carotid bruits Neck Narrative: Trachea midline, no thyroid enlargement or nodules noted on exam Resp normal respiratory effort, no retractions, no use of accessory muscles and clearto auscultation bilaterally Auscultation: Negative for rales, rhonchi or wheezes Cardio regular rate, S1 normal heart sound, S2 normal heart sound, no murmurs, no rub, no gallops and no clicks Cardio Narrative: Irregularly irregular rhythm with current rate at 96 GI normal to inspection, nondistended, normoactive bowel sounds, soft to palpation and non-tender Extremity no clubbing, cyanosis or edema Extremity Narrative: Pedal pulses are 2+, radial pulses are 2+ Skin no rashes or lesions noted, no wounds, skin turgor normal, no jaundice, no petechiae and no mottling Neuro oriented x3, CN's II-XII intact bilaterally, moves all extremities and no focal motor deficits Neuro Narrative: Normal gait Speech: speech normal Psych affect normal Psych Narrative: Very pleasant, interacts appropriately Results Lab / Micro Data 06/16/23 15:45 06/16/23 15:45 Labs: Laboratory Results - last 24 hr 06/16/23 15:45: WBC 12.5 H, RBC 4.45 L, Hgb 14.0, Hct 42.6, MCV 95.7 H, MCH 31.5, MCHC 32.9, RDW Std Deviation 49.2 H, RDW Coeff of Briana 14.0, Plt Count 191,MPV 9.3, Immature Gran % (Auto) 0.500, Neut % (Auto) 69.4, Lymph % (Auto) 16.6 L, [place] % (Auto) 13.0 H, Eos % (Auto) 0.2, Baso % (Auto) 0.3, Absolute Neuts (auto) 8.7 H, Absolute Lymphs (auto) 2.08, Nucleated RBC % 0, Differential Comment SCANNED, Diff Path Review September, Sodium 135 L, Potassium 4.0, Chloride 100, Carbon Dioxide 25.0, Anion Gap 10, BUN 20 H, Creatinine 1.42 H, Estim Creat Clear Calc 45.74, Est GFR (MDRD) Af Amer 62, Est GFR (MDRD) Non-Af 51 L, BUN/Creatinine Ratio 14.1, Glucose 125 H, Calcium 9.7, Troponin I High Sens 28 Assessment & Plan Assessment/Plan (1) Atrial fibrillation with RVR: (2) Transient hypotension: (3) Lightheadedness: (4) Elevated serum creatinine: (5) Hyperglycemia: (6) Leukocytosis: PLAN: Plan A-fib with RVR -New onset -Start Eliquis 5 mg p.o. twice daily -Hold home antihypertensives as we will increase his home Metoprolol from 25 mg p.o. twice daily to 50 mg p.o. twice daily -Check TSH -Check echocardiogram -Monitor on telemetry -Highly suspect the patient has been in A-fib since Friday at the very least Lightheadedness with transient hypotension -Likely related to the above -Hold home amlodipine, losartan -Patient did have orthostatic vital signs that were positive at his primary carephysician's office -Patient was given IV fluids in the emergency department we will hold off on anyfurther fluids at this time -Monitor on telemetry Elevated serum creatinine -Baseline is unknown but suspect CKD -Patient did receive IV fluids in the emergency department -Repeat BMP in a.m. -Avoid nephrotoxins as able -No further workup needed at this time Hyperglycemia -No official diagnosis of diabetes--> mild elevation on admission labs and nonfasting -Will follow with BMP in a.m. -If hyperglycemia persists could assess with hemoglobin A1c or refer to outpatient provider for follow-up Leukocytosis -Mild at 12.5 -Patient does not have left shift but does have a monocytosis -Repeat CBC in a.m. -Quite possibly could be reactive with the above Hypertension -Patient was orthostatic positive in his primary care physician's office -Hold home amlodipine 10 mg daily -Hold home losartan 10 mg daily -Continue metoprolol and increase from 25 to 50 mg p.o. twice daily -Will go ahead and continue Flomax twice daily for now -As needed hydralazine available for systolic pressure greater than 160 Hypothyroidism -Check TSH with new onset A-fib -Continue home levothyroxine Hyperlipidemia -Continue home statin BPH with obstruction -Continue home Flomax Anxiety -Patient is on hydroxyzine nightly -Will continue for now but recommend possibly discontinuing as it could cause increased risk of fall with his age being greater than 72 DVT prophylaxis -Patient on full anticoagulation with Eliquis CODE STATUS -Full code is verified on admission Charges/Coding Visit Charges Inpatient E&M: 38094 Init Hosp L2 06/16/23 1723 <Electronically signed by Lor Aguilar DO> Cosigner Signature (if applicable): CC: Dr. Lor Aguilar DO; Dr. Cody Carrington MD~ Signed [facility] Work Phone: 1(780) 387-385502-12-2024 Instructions* Patient Instructions* Cody Carrington MD - 06/16/2023 3:16 PM EST PROCEED TO THE ER FOR EMERGENT EVALUATION OF YOUR HEART AND LOW BLOOD PRESSURE. [facility] History of Present illness Narrative* Cody Carrington MD - 06/16/2023 2:59 PM EST This note was created using [employer]. Subjective Clint Villar is a 82 year old male. He started feeling dizzy, lightheaded, faint, and nauseous Friday evening, after a convention. He continued to feel ill over the weekend but did not seek medical attention. This morning he checked his blood pressure and found his blood pressure in the 90s, sohe held his metoprolol and losartan. Review of Systems Constitutional: Positive for activity change, appetite change, fatigue and unexpected weight change. Negative for chills, diaphoresis and fever. HENT: Negative for congestion and sore throat. Eyes: Negative for visual disturbance. Respiratory: Negative for cough, shortness of breath and wheezing. Cardiovascular: Negative for chest pain, palpitations and leg swelling. Gastrointestinal: Positive for nausea. Negative for abdominal pain, blood in stool, constipation, diarrhea and vomiting. Genitourinary: Negative for difficulty urinating and dysuria. Musculoskeletal: Negative for gait problem. Neurological: Positive for dizziness, weakness and light-headedness. Negative for syncope, facial asymmetry, speech difficulty, numbness and headaches. 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 Htn (Hypertension) Hyperlipidemia Hypothyroidism Herpes Infection Muscle Spasm of Back Impaired Fasting Glucose Obesity, Class II, Bmi 35-39.9 Erectile Dysfunction Urinary Frequency Anemia Positive Colorectal Cancer Screening Using Cologuard Test Elevated Psa Social History Tobacco Use Smoking status: Former Packs/day: 1.00 Years: 17.00 Additional pack years: 0.00 Total pack years: 17.00 Types: Cigarettes Quit date: 1977 Years since quittin.9 Smokeless tobacco: Never Vaping Use Vaping Use: Never used Substance Use Topics Alcohol use: Yes Alcohol/week: 1.0 standard drink of alcohol Types: 1 Cans of beer per week Drug use: Never Current Outpatient Medications Medication Sig benzonatate (TESSALON PERLES) 100 mg capsule Take 2 capsules by mouth three times a day as needed. finasteride (PROSCAR) 5 mg tablet Take 1 tablet by mouth once daily. hydrOXYzine HCl (ATARAX) 25 mg tablet Take 1 tablet by mouth daily at bedtime. losartan (COZAAR) 100 mg tablet Take 1 tablet by mouth once daily. valACYclovir (VALTREX) 500 mg tablet Take 1 tablet by mouth once daily. atorvastatin (LIPITOR) 40 mg tablet Take 1 tablet by mouth daily at bedtime. levothyroxine (SYNTHROID) 112 mcg tablet Take 1 tablet by mouth once daily. Take on empty stomach. For thyroid tamsulosin (FLOMAX) 0.4 mg Take 2 capsules by mouth daily at bedtime. metoprolol tartrate, short acting, (LOPRESSOR) 25 mg tablet Take 1 tablet by mouth twice daily. amLODIPine (NORVASC) 10 mg tablet Take 1 tablet by mouth once daily. cyclobenzaprine (FLEXERIL) 10 mg tablet Take 1 tablet by mouth twice daily as needed for muscle spasm. No current facility-administered medications for this visit. Objective BP 124/74 (BP Site: Left Arm, BP Position: Supine, BP Cuff Size: Large Adult) Pulse 77 Temp 36.3 C (97.3 F) (Temporal) Wt 95.3 kg (210 lb) BMI 32.89 kg/m Physical Exam Constitutional: Appearance: He is ill-appearing. He is not diaphoretic. HENT: Head: Normocephalic. Mouth/Throat: Mouth: Mucous membranes are dry. Eyes: Conjunctiva/sclera: Conjunctivae normal. Cardiovascular: Rate and Rhythm: Normal rate. Rhythm irregularly irregular. Heart sounds: No murmur heard. Pulmonary: Effort: No respiratory distress. Breath sounds: No wheezing or rales. Abdominal: Palpations: Abdomen is soft. Tenderness: There is no abdominal tenderness. Musculoskeletal: Right lower leg: No edema. Left lower leg: No edema. Neurological: General: No focal deficit present. Mental Status: He is alert and oriented to person, place, and time. Cranial Nerves: No cranial nerve deficit. Motor: No weakness. Gait: Gait normal. EKG RESULTS: atrial fibrillation, rate controlled and occasional PVC noted, unifocal 06/16/23 1426 06/16/23 1429 06/16/23 1430 BP: 93/58 94/63 124/74 Pulse: 80 72 77 Temp: 36.3 C (97.3 F) TempSrc: Temporal Weight: 95.3 kg (210 lb) BP Position: Sitting Standing Supine Assessment and Plan 1. Orthostatic hypotension - ICD9: 458.0, ICD10: I95.1 (primary diagnosis) - ECG COMPLETE 2. New onset atrial fibrillation (HCC) - ICD9: 427.31, ICD10: I48.91 - Symptomatic. I recommended emergent evaluation at the ER. I spoke to Dr. Omalley. Patient will proceed to [facility] ER directly. Cody Carrington MD documented in this encounterSt. [facility]02[facility]24 Miscellaneous Notes* Telephone Encounter - Kristofer Matthew RN - 06/16/2023 11:27 AM EST Pt reports he has felt dizzy/lightheaded since Fri- mild to moderate. Also constipated - last BM . Only drinking 2-3 cups fluids daily. Takes 3 BP medications: metoprolol, amlodipine, & losartan. Did not take them today due to BP 100/60. Protocol recommends see provider in 24 hours. Scheduled same day appt. Pt has someone who can drive him to appt. Reason for Disposition [1] MODERATE dizziness (e.g., interferes with normal activities) AND [2] has NOT been evaluated by doctor (or [employer] EXCHANGE INSTALLER/PA) for this (Exception: Dizziness caused by heat exposure, sudden standing, or poor fluid intake.) Answer Assessment - Initial Assessment Questions 1. DESCRIPTION: Lightheaded and dizzy since Fri. All day long. If sitting not as bad. Stand up feels dizzy. Able to walk but doesn't feel right. 2. LIGHTHEADED: Couple times felt like would faint. Sat down and felt better. 3. VERTIGO: No 4. SEVERITY: Mild to moderate. [place] like would faint a couple times. Not falling. Interferes with normal activities. Did not go to work today. 5. ONSET: Friday 6. AGGRAVATING FACTORS: Standing makes it worse. Have been constipated the past week. Taking stool softners, taking miralax, 1/2 glass on Sat and Sun- did not work- last time had BM was Thurs. Passing gas. Not drinking 6 to 8 cups liquid daily. Drinking 2 or 3 cups daily. Pt started drinking water as we talked, and after a glass of water, stood up, and stated he did not get dizzy when he stood up. 7. HEART RATE: 86 on BP monitor 8. CAUSE: No idea. Probably not drinking enough. Takes metoprolol 25 mg bid, losartan 100 mg daily,amlodipine 10 mg daily, for BP-hasn't taken it today. 9. RECURRENT SYMPTOM: Has has dizziness before years ago. Cannot remember why. 10. OTHER SYMPTOMS: No fever. No CP. No SOB. Has a periodic cough from sinus drainage- started after having covid in 2020. No vomiting. Has slight nausea with the dizziness. Having weakness this morning but not right now. No numbness. No headache. 11. : N/A Protocols used: Dizziness - [id number] documented in this encounterSt. [facility] Hospital01-04-2024 History of Present illness Narrative* Cherie Joshua RT(R) - 05/08/2023 2:00 PM EST Radiology Service Progress Note PATIENT NAME: Clint Villar DATE OF SERVICE: May 08, 2023 TIME: 1:57 PM PATIENT IDENTITY VERIFICATION COMPLETED USING TWO (2) IDENTIFIERS: Name and Date of confirmedby patient verbally. FALL SCREENING: Has the patient had 2 falls in the last year or 1 fall with injury or currently using an Ambulatory Assistive Device (Walker, Cane, Wheelchair, Crutches, etc.)? No PATIENT GENDER DATA: Male PATIENT RELEVANT IMPLANT DATA REVIEWED: Not Applicable RADIOLOGY DEPARTMENT: General X-ray: Exam(s) Completed: Chest X-Ray PERIPHERAL IV DATA: Not applicable SIGNED BY: RT Sp(R) May 08, 2023 1:[address] [facility] [address] [facility]10-09-[facility]23 Miscellaneous Notes* Telephone Encounter - Tiffany Paigely RUBI - 02/10/2023 3:26 PM EDT Called patient. Verified name and date of . Patient is aware of results and aware of recommendation. Patient does not want to have biopsy done. Ariana Paige RUBI * Telephone Encounter - Robert Toscano PA-C - 02/10/2023 12:23 PM EDT Please let patient know that his Total PSA is confirmed at 77.0 However, they did not perform the IsoPSA , since that high of PSA does not fall into range, so without a IsoPSA result I am recommending prostate biopsy if he has concerns of prostate cancer it the only way to get tissue diagnosis. Biopsy closest is [facility] Gonsales. BETSY Toscano MT, PA-C documented in this encounterSt. [facility] Hospital10-04-2023 Miscellaneous Notes* Telephone Encounter - Leila Antonio LPN - 02/05/2023 8:14 AM EDT RX for Hydroxyzine was written 01/03/2023 for 90 tablets, 3 refills sent to [facility]/[place], will call pharmacy. Leila Antonio LPN * Telephone Encounter - Sergio Mendoza - 02/05/2023 8:09 AM EDT Please refill hydroxyzine HCI 25 mg sent to [facility] in [place]. Thank you! documented in this encounterSt. [facility] Hospital10-03-2023 History of Present illness Narrative* Robert Toscano PA-C - 02/04/2023 8:51 AM EDT Images from the original note were not included. [facility] NEW CONSULT PATIENT CLINIC NOTE SERVICE DATE: 02/04/2023 SERVICE TIME: 8:51 AM NAME: Clint Villar Consultation requested by Cody Carrington MD for an opinion regarding Elevated PSA My final recommendations communicated back to the requesting physician by way of our shared Medicalrecord. CHIEF COMPLAINT: Elevated PSA HISTORY OF PRESENT ILLNESS: Clint Villar is a 82 year old male presenting for New Patient Consult for Elevated PSA of 71.22 The patient reports no previous PSA that he can recall, so with guidelines I recommended IsoPSA to get a new total PSA and to see if biopsy is indicated. If Total is much different then will discuss this in detail. He will have IsoPSA done , to double check , but is not interested in Prostate Biopsy regardless of test. So I told him we will let him know the recommendations and he has the right o choose the path he wants. LUTS: None Other symptoms: LABS: Testosterone (ng/dL) Date Value 06/30/2021 299 No results found for: TESTFREE PSA (ng/mL) Date Value 01/03/2023 71.22 Hematocrit (%) Date Value 07/06/2022 43.4 12/15/2021 37.5 06/30/2021 36.3 07/15/2017 43.0 PSA (ng/mL) Date Value 01/03/2023 71.22 Creatinine Date Value Ref Range Status 01/03/2023 1.07 0.73 - 1.22 mg/dL Final 07/06/2022 1.09 0.73 - 1.22 mg/dL Final 06/30/2021 1.16 0.73 - 1.22 mg/dL Final 07/12/2020 1.06 0.73 - 1.22 mg/dL Final MEDICATIONS: hydrOXYzine HCl (ATARAX) 25 mg tablet Take 1 tablet by mouth daily at bedtime. losartan (COZAAR) 100 mg tablet Take 1 tablet by mouth once daily. valACYclovir (VALTREX) 500 mg tablet Take 1 tablet by mouth once daily. atorvastatin (LIPITOR) 40 mg tablet Take 1 tablet by mouth daily at bedtime. levothyroxine (SYNTHROID) 112 mcg tablet Take 1 tablet by mouth once daily. Take on empty stomach. For thyroid tamsulosin (FLOMAX) 0.4 mg Take 2 capsules by mouth daily at bedtime. metoprolol tartrate, short acting, (LOPRESSOR) 25 mg tablet Take 1 tablet by mouth twice daily. amLODIPine (NORVASC) 10 mg tablet Take 1 tablet by mouth once daily. cyclobenzaprine (FLEXERIL) 10 mg tablet Take 1 tablet by mouth twice daily as needed for muscle spasm. 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 PAST SURGICAL HISTORY: PAST SURGICAL HISTORY Procedure Laterality Date OPEN REPAIR OF ROTATOR CUFF ACUTE Right 2005 Rotator cuff repair, right TONSILLECTOMY PRIMARY/SECONDARY <AGE 12 1950s Tonsillectomy FAMILY HISTORY: FAMILY HISTORY Problem Relation Age of Onset other (Other) Mother no contact Coronary Artery Disease Father Heart Failure Father Diabetes Father SOCIAL HISTORY: Social Connections: Unknown (07/04/2022) Social Connection and Isolation Panel [NHANES] Frequency of Communication with Friends and Family: Patient refused Frequency of Social Gatherings with Friends and Family: Patient refused Attends Confucianist Services: Patient refused Active Member of Clubs or Organizations: Patient refused Attends Club or Organization Meetings: Patient refused Marital Status: Patient refused REVIEW OF SYSTEMS: GENERAL: No fever, chills, weight loss, or fatigue. ENMT: Negative CARDIOVASCULAR:NO CHEST PAIN, PALPITATIONS, ANKLE EDEMA RESPIRATORY: No chronic cough, wheezing, dyspnea, hemoptysis. GENITOURINARY: SEE HPI MUSCULOSKELETAL:NO CHRONIC BACK PAIN, ARTHRITIS, CHRONIC NECK PAIN SKIN: NO VARICOSE VEINS, RASH, ABNORMAL ITCHING HEME/LYMPH/IMMUNE:Negative for prolonged bleeding, bruising easily or swollen nodes NEUROLOGICAL: NO HEADACHES, NUMBNESS, SEIZURES, STROKE DIABETES: no All other systems reviewed and are negative PHYSICAL EXAMINATION: Blood pressure 120/70, pulse (!) 52, temperature 36.7 C (98 F), temperature source Temporal, lbgafk103.2 cm (5' 7), weight 98.7 kg (217 lb 9.6 oz), SpO2 94 %. GENERAL: WNL nutrition, no deformities, healthy appearing NEURO: Awake, alert and oriented x 3 and Normal gait PSYCH: No signs of depression, anxiety, or agitation ENMT (Ear, Nose, Mouth, Throat): No masses, adenopathy, icterus. Thyroid nonpalpable RESP: NL effort, no retractions or purse-lip breathing. CV: No extremity swelling, varices, edema, pallor, erythema GASTROINTESTINAL: Soft, nontender, nondistended, no masses. HERNIAS: None SKIN: No rash, lesions No palpable lymphadenopathy MUSCULOSKELETAL: Extremities normal. No deformities, edema, clubbing or skin discoloration. GENITOURINARY: MALE EXAM: Rectal Exam: Prostate: size (50grams), symmetrical, nontender, w/o nodules. PROBLEM LIST REVIEW: Yes LABS: Results for orders placed or performed in visit on 02/04/23 UA DIP, URINE (POC) Result Value Ref Range GLUCOSE UA (POCT) Negative Negative mg/dL BILIRUBIN UA (POCT) Negative Negative KETONE UA (POCT) Negative Negative mg/dL SPECIFIC GRAVITY UA (POCT) 1.025 1.005 - 1.030 HEMOGLOBIN/BLOOD UA (POCT) Moderate (A) Negative PH UA (POCT) 6.0 4.5 - 8.0 PROTEIN UA (POCT) Negative Negative mg/dL UROBILINOGEN UA (POCT) 0.2 Normal E.U./dL NITRITE UA (POCT) Negative Negative LEUKOCYTES UA (POCT) Negative Negative COLOR UA (POCT) Yellow CLARITY UA (POCT) Clear PROCEDURES: PVR: 41 ml IMAGING: IMPRESSION/PLAN: 82 year old male with 1. Elevated prostate specific antigen (PSA) - ICD9: 790.93, ICD10: R97.20 (primary diagnosis) 2. Urinary frequency - ICD9: 788.41, ICD10: R35.0 3. Lower urinary tract symptoms (LUTS) - ICD9: 788.99, ICD10: R39.9 > IsoPSA and further discussion > Not interested in Biopsy I spent a total of 40 minutes on the date of the service which included preparing to see the patient, face to face patient care, completing clinical documentation, obtaining and/or reviewing separately obtained history, performing a medically appropriate examination, counseling and educating the pat ient/family/caregiver, ordering medications, tests, or procedures, and care coordination. BETSY Salazar MT, PA-C * Ariana Paige LPN - 02/04/2023 8:05 AM EDT Verified name and date of . CC Post Void Residual HPI: Clint Villar is a 82 year old male. The patient is here now for an appointment with BETSY Salazar MT, PA-COV. Procedure: Explained procedure to patient and verbalizes understanding. Performed a PVR. Patient urinated and instructed to empty bladder as much as possible just prior to having PVR done using bladder ultrasound scanner. Results of scan: 41 mL The patient tolerated the procedure well. Plan: Appointment with Robert. documented in this encounterSt. [facility]10-03-2023 Instructions* Patient Instructions* Robert Toscano PA-C - 02/04/2023 8:50 AM EDT IsoPSA today documented in this encounterSt. [facility] Hospital09-07-2023 Miscellaneous Notes* Telephone Encounter - Urvashi Coffey - 01/09/2023 2:36 PM EDT This is the first available * Telephone Encounter - Leila Antonio LPN - 01/09/2023 2:24 PM EDT Patient notified of below results. PSS please reach out to Patient to schedule sooner appt. Leila Antonio LPN * Telephone Encounter - Leila Antonio LPN - 01/09/2023 2:21 PM EDT ----- Message from Cody Carrington MD sent at 01/09/2023 1:05 PM EDT ----- PSA high. Schedule sooner appointment with urology. documented in this encounterSt. [facility] Hospital09-01-2023 History of Present illness Narrative* Cody Carrington MD - 01/03/2023 9:13 AM EDT This note was created using [employer]. Subjective Clint Villar is a 82 year old male. His blood pressure was not at goal. He just started participating in an exercise program at work (treadmill). His main concern was progressing lower urinary tract symptoms. Flomax was less effective since this was started 1.5 years ago. He was concerned about chronic kidney disease with his historyof acute kidney injury from illness. Review of Systems Constitutional: Negative for fatigue, fever and unexpected weight change. Respiratory: Negative for chest tightness and shortness of breath. Cardiovascular: Positive for leg swelling. Negative for chest pain and palpitations. Gastrointestinal: Negative for abdominal pain, blood in stool, constipation and diarrhea. Genitourinary: Positive for decreased urine volume, difficulty urinating, frequency and urgency. Negative for dysuria and hematuria. Neurological: Negative for dizziness and headaches. 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 Htn (Hypertension) Hyperlipidemia Hypothyroidism Herpes Infection Muscle Spasm of Back Impaired Fasting Glucose Obesity, Class II, Bmi 35-39.9 Erectile Dysfunction Urinary Frequency Anemia Positive Colorectal Cancer Screening Using Cologuard Test Social History Tobacco Use Smoking status: Former Packs/day: 1.00 Years: 17.00 Additional pack years: 0.00 Total pack years: 17.00 Types: Cigarettes Quit date: 1977 Years since quittin.5 Smokeless tobacco: Never Substance Use Topics Alcohol use: Yes Alcohol/week: 5.0 standard drinks of alcohol Types: 1 Glasses of Wine (5oz), 1 Cans of Beer (12oz) per week Drug use: No Objective BP (P) 144/70 (BP Site: Left Arm, BP Position: Sitting, BP Cuff Size: Large Adult) Pulse (!) (P) 52 Wt (P) 98.4 kg (217 lb) BMI (P) 35.02 kg/m Physical Exam Constitutional: General: He is not in acute distress. Appearance: He is not ill-appearing. Cardiovascular: Rate and Rhythm: Regular rhythm. Bradycardia present. Heart sounds: No murmur heard. No gallop. Pulmonary: Effort: No respiratory distress. Breath sounds: No wheezing or rales. Abdominal: Tenderness: There is no abdominal tenderness. Musculoskeletal: Right lower le+ Pitting Edema present. Left lower le+ Pitting Edema present. Neurological: Mental Status: He is alert. Component Latest Ref Rng & Units 08/11/2022 12/28/2022 Stool DNA Negative Positive (A) TSH 0.270 - 4.200 mIU/L 5.860 (H) UROChiasma [facility] MEN OVER 40 01/03/2023 INCOMPLETE EMPTYING 5-ALMOST ALWAYS FREQUENCY 5-ALMOST ALWAYS INTERMITTENCY 5-ALMOST ALWAYS URGE TO URINATE 4-MORE THAN HALF THE TIME WEAK STREAM 5-ALMOST ALWAYS STRAINING 0-NOT AT ALL URINATING AT NIGHT 5-(5) TIMES OR MORE TOTAL SCORE 29 SYMPTOM SCORE 20-35 SEVERE BOTHER SCORE DUE TO URINARY SYMPTOMS 4- MOSTLY DISSATISFIED Assessment and Plan 1. Urinary frequency - ICD9: 788.41, ICD10: R35.0 (primary diagnosis) Worse. Increase dose to 0.8 mg at bedtime. Discussed medication dosage, usage, goals of therapy, and side effects. - TAMSULOSIN 0.4 MG CAPSULE - CONSULT TO UROLOGY - PSA/PROSTSPECAG DIAG 2. Herpes infection - ICD9: 054.9, ICD10: B00.9 Controlled. - HYDROXYZINE HCL 25 MG TABLET - VALACYCLOVIR 500 MG TABLET 3. Acquired hypothyroidism - ICD9: 244.9, ICD10: E03.9 - Instructed patient on importance of taking on an empty stomach either first thing in the morning or at bedtime. - Increase Synthroid dose to 0.112 mg - LEVOTHYROXINE 112 MCG TABLET - TSH BLD 4. Primary hypertension - ICD9: 401.9, ICD10: I10 Not yet at goal. Tamsulosin might help. - LOSARTAN 100 MG TABLET - BASIC METABOLIC PNL - CBC 5. Lower urinary tract symptoms (LUTS) - ICD9: 788.99, ICD10: R39.9 See #1. - TAMSULOSIN 0.4 MG CAPSULE - CONSULT TO UROLOGY - PSA/PROSTSPECAG DIAG 6. Hyperlipidemia, unspecified hyperlipidemia type - ICD9: 272.4, ICD10: E78.5 - Controlled - Continue current medications - Counseled on healthy diet and regular exercise - Discussed need for and benefit of weight loss. No weight on file for this encounter. - ATORVASTATIN 40 MG TABLET - COMP METABOLIC PANEL - LIPID PANEL BASIC 7. Positive colorectal cancer screening using Cologuard test - ICD9: 787.7, ICD10: R19.5 - We reviewed the result, and the recommended next step which is colonoscopy. He declined to act onthis at this time. Cody Carrington MD documented in this encounterSt. [facility] Hospital05-26-2023 Miscellaneous Notes* Telephone Encounter - Eliezer Lopez Ma - 09/27/2022 3:17 PM EDT CJ: 08/16/2022 Last refill: 12/27/2021 QTY: 90 Refills: 3 Patient's request for medication is as follows: Requested Prescriptions Pending Prescriptions Disp Refills tamsulosin (FLOMAX) 0.4 mg 90 capsule 3 Sig: Take 1 capsule by mouth daily at bedtime. Please approve the above prescription(s) to electronically send to pharmacy. Eliezer Lopez Ma * Telephone Encounter - Chelsea Walters - 09/27/2022 3:13 PM EDT Patient has been identified by name and date of : Yes Requested Prescriptions Pending Prescriptions Disp Refills tamsulosin (FLOMAX) 0.4 mg 90 capsule 3 Sig: Take 1 capsule by mouth daily at bedtime. Patient is completely out of medication. RX INSTRUCTIONS: Patient aware RX will be sent to pharmacy. No need to notify patient. Chelsea Walters documented in this encounterSt. [facility] Hospital05-01-2023 Miscellaneous Notes* Telephone Encounter - Lise Eng LPN - 09/02/2022 10:25 AM EDT Called the pharmacy and the December rx was never filled and now it has . This is needed. Last seen [employer] EXCHANGE INSTALLER 08/16/22. Next appt with De Icer Element Winder 10/16/22. * Telephone Encounter - Cassidy Carrillo Pss - 09/02/2022 8:38 AM EDT Pharmacy verified in Epic Patient has been identified by name and date of : Yes Patient aware RX will be sent to pharmacy. No need to notify patient. Spouse phones for refill(s): Requested Prescriptions Pending Prescriptions Disp Refills metoprolol tartrate, short acting, (LOPRESSOR) 25 mg tablet 180 tablet 3 Sig: Take 1 tablet by mouth twice daily. Date of last office visit : 08/16/2022 Date of next office visit : 10/16/2022 Last 2 Encounter Wt Readings: Date: Wt: 08/16/2022 97.5 kg (215 lb) 07/04/2022 96.2 kg (212 lb) Not applicable Please advise. Cassidy Carrillo Pss documented in this encounterSt. [facility] Hospital04-14-2023 History of Present illness Narrative* Leela Older, DISTRIBUTION SPEC.SOLVENT STATION ATTENDANT - 08/16/2022 9:15 AM EDT CC Patient presents with: 6 week follow up - blood pressure HPI Clint Villar is a 82 year old male who presents to the office for blood pressure. His visit today is for follow-up. Patient was last seen for this approximately 3 months ago. Medication changes: Yes started on Norvasc 5 mg daily. Patient had stopped water pill due to urinary frequency. Taking all medications as prescribed: Yes Side effects: No Home BP's: Yes-checking occasionally, last week it was 148/80 Denies: headache, chest pain, palpitations, dyspnea, and peripheral edema. 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 PAST SURGICAL HISTORY Procedure Laterality Date OPEN REPAIR OF ROTATOR CUFF ACUTE Right 2005 Rotator cuff repair, right TONSILLECTOMY PRIMARY/SECONDARY <AGE 14 1950s Tonsillectomy ALLERGIES Patient has no known allergies. MEDICATIONS amLODIPine (NORVASC) 5 mg tablet Take 1 tablet by mouth once daily. hydrOXYzine HCl (ATARAX) 25 mg tablet Take 1 tablet by mouth daily at bedtime. levothyroxine (SYNTHROID) 100 mcg tablet Take 1 tablet by mouth once daily. Take on empty stomach metoprolol tartrate, short acting, (LOPRESSOR) 25 mg tablet Take 1 tablet by mouth twice daily. losartan (COZAAR) 100 mg tablet Take 1 tablet by mouth once daily. valACYclovir (VALTREX) 500 mg tablet Take 1 tablet by mouth once daily. tamsulosin (FLOMAX) 0.4 mg Take 1 capsule by mouth daily at bedtime. atorvastatin (LIPITOR) 40 mg tablet Take 1 tablet by mouth daily at bedtime. cyclobenzaprine (FLEXERIL) 10 mg tablet Take 1 tablet by mouth twice daily as needed for muscle spasm. FAMILY HISTORY Problem Relation Age of Onset other (Other) Mother no contact Coronary Artery Disease Father Heart Failure Father Diabetes Father Social History Tobacco Use Smoking status: Former Packs/day: 1.00 Years: 17.00 Pack years: 17.00 Types: Cigarettes Quit date: 1977 Years since quittin.1 Smokeless tobacco: Never Substance Use Topics Alcohol use: Yes Alcohol/week: 5.0 standard drinks Types: 1 Glasses of Wine (5oz), 1 Cans of Beer (12oz) per week Drug use: No PHYSICAL EXAM BP 144/71 Pulse (!) 47 Resp 12 Wt 97.5 kg (215 lb) BMI 34.70 kg/m General Appearance: well appearing, in no acute distress, alert Pysch: mood and affect broad and appropriate ASSESSMENT/PLAN: 1. Hypertension, unspecified type - ICD9: 401.9, ICD10: I10 - suboptimal control, improved - Continue current medication(s) - Increase Norvasc to 10 mg daily - Encouraged dietary sodium restriction/DASH diet - Recommend home blood pressure monitoring, to bring results in on next visit - Recheck in 2 months, sooner should new symptoms or problems arise. - Goal of BP <130/80 - AMLODIPINE 10 MG TABLET Prescription instructions reviewed with patient as applicable. Potential red flag symptoms discussed with the patient. Reviewed appropriate action plan to take if red flag symptoms occur. Patient agreeable to treatment plan During this patient visit I have spent approximately 20 minutes in counseling regarding treatment options, medications, and coordinating care. Leela Quinones APRN.[employer] STATION ATTENDANT documented in this encounterSt. [facility] Hospital03-02-2023 Instructions* Patient Instructions* Cody Carrington MD - 07/04/2022 9:04 AM EST Fasting blood work any time soon. documented in this encounterSt. Vincent Hospital03-02-2023 History of Present illness Narrative* Cody Carrington MD - 07/04/2022 8:57 AM EST This note was created using [email or web address]. Subjective Clint Villar is a 81 year old male. He felt well. He stopped diuretic months ago due to urinaryfrequency. His labs needed updating. Review of Systems Constitutional: Negative. Respiratory: Negative. Cardiovascular: Negative. Neurological: Negative. Psychiatric/Behavioral: Negative. 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 Htn (Hypertension) Hyperlipidemia Hypothyroidism Herpes Infection Muscle Spasm of Back Impaired Fasting Glucose Obesity, Class II, Bmi 35-39.9 Erectile Dysfunction Urinary Frequency Anemia Social History Tobacco Use Smoking status: Former Packs/day: 1.00 Years: 17.00 Pack years: 17.00 Types: Cigarettes Quit date: 1977 Years since quittin.0 Smokeless tobacco: Never Substance Use Topics Alcohol use: Yes Alcohol/week: 5.0 standard drinks Types: 1 Glasses of Wine (5oz), 1 Cans of Beer (12oz) per week Drug use: No Current Outpatient Medications Medication Sig hydrOXYzine HCl (ATARAX) 25 mg tablet Take 1 tablet by mouth daily at bedtime. levothyroxine (SYNTHROID) 100 mcg tablet Take 1 tablet by mouth once daily. Take on empty stomach metoprolol tartrate, short acting, (LOPRESSOR) 25 mg tablet Take 1 tablet by mouth twice daily. losartan (COZAAR) 100 mg tablet Take 1 tablet by mouth once daily. valACYclovir (VALTREX) 500 mg tablet Take 1 tablet by mouth once daily. tamsulosin (FLOMAX) 0.4 mg Take 1 capsule by mouth daily at bedtime. triamterene-hydroCHLOROthiazide (MAXZIDE-25) 37.5-25 mg per tablet Take 1 tablet by mouth once daily. atorvastatin (LIPITOR) 40 mg tablet Take 1 tablet by mouth daily at bedtime. cyclobenzaprine (FLEXERIL) 10 mg tablet Take 1 tablet by mouth twice daily as needed for muscle spasm. No current facility-administered medications for this visit. Objective BP (!) 207/94 (BP Site: Left Arm, BP Position: Sitting, BP Cuff Size: Large Adult) Pulse (!) 50 Wt 96.2 kg (212 lb) BMI 34.22 kg/m Physical Exam Constitutional: Appearance: Normal appearance. Cardiovascular: Rate and Rhythm: Normal rate and regular rhythm. Heart sounds: No murmur heard. No gallop. Pulmonary: Breath sounds: Normal breath sounds. Musculoskeletal: Right lower leg: No edema. Left lower leg: No edema. Neurological: Mental Status: He is alert. Gait: Gait normal. Psychiatric: Mood and Affect: Mood normal. Assessment and Plan 1. Hypertension, unspecified type - ICD9: 401.9, ICD10: I10 (primary diagnosis) - poor control - Continue current medication(s) - Add amlodipine (Norvasc) - Reviewed risks of HTN and principles of treatment - Goal of BP <130/80 - AMLODIPINE 5 MG TABLET. Shared medical decision making was done. We agreed to not take diuretic. Discussed medication dosage, usage, goals of therapy, and side effects. - [employer] follow up in 6 weeks. 2. Hyperlipidemia, unspecified hyperlipidemia type - ICD9: 272.4, ICD10: E78.5 - to be determined upon return of lab results - Continue current medication. 3. Impaired fasting glucose - ICD9: 790.21, ICD10: R73.01 For recheck. 4. Hypothyroidism, unspecified type - ICD9: 244.9, ICD10: E03.9 - continue current dose of Synthroid 5. Screening for colon cancer - ICD9: V76.51, ICD10: Z12.11 [facility] 01/20/2018 06/26/2020 12/27/2021 07/04/2022 PHQ-2 Score 0 0 0 0 Depression screening tool completed and reviewed. Based on score and interview, patient is not at risk for depression. Screening tool discussed with patient, and I recommended no further interventionat this time. Cody Carrington MD documented in this encounter[facility] History of Present illness Narrative* Cody Carrington MD - 12/27/2021 9:08 AM EDT This note was created using [employer]. Subjective Clint Villar is a 81 year old male. He was doing well. He needed refills. Iron tablet was constipating. Review of Systems Constitutional: Negative. Respiratory: Negative. Cardiovascular: Negative. Gastrointestinal: Negative for blood in stool. Neurological: Negative. 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 losartan (COZAAR) 100 mg tablet Take 1 tablet by mouth once daily. valACYclovir (VALTREX) 500 mg tablet Take 1 tablet by mouth once daily. tamsulosin (FLOMAX) 0.4 mg Take 1 capsule by mouth daily at bedtime. triamterene-hydroCHLOROthiazide (MAXZIDE-25) 37.5-25 mg per tablet Take 1 tablet by mouth once daily. levothyroxine (SYNTHROID) 100 mcg tablet Take 1 tablet by mouth once daily. Take on empty stomach hydrOXYzine HCl (ATARAX) 25 mg tablet Take 1 tablet by mouth daily at bedtime. atorvastatin (LIPITOR) 40 mg tablet Take 1 tablet by mouth daily at bedtime. cyclobenzaprine (FLEXERIL) 10 mg tablet Take 1 tablet by mouth twice daily as needed for muscle spasm. No current facility-administered medications for this visit. Objective BP 119/71 (BP Site: Left Arm, BP Position: Sitting, BP Cuff Size: Large Adult) Pulse (!) 52 Temp 36 C (96.8 F) (Temporal) Resp 12 Wt 99.7 kg (219 lb 12.8 oz) BMI 35.48 kg/m Physical Exam Constitutional: Appearance: Normal appearance. Cardiovascular: Rate and Rhythm: Regular rhythm. Bradycardia present. Heart sounds: No murmur heard. No gallop. Pulmonary: Breath sounds: Normal breath sounds. Musculoskeletal: Right lower leg: No edema. Left lower leg: No edema. Neurological: Mental Status: He is alert. Gait: Gait normal. Component Latest Ref Rng & Units 12/15/2021 WBC 3.70 - 11.00 k/uL 5.22 RBC 4.20 - 6.00 m/uL 3.83 (L) Hemoglobin 13.0 - 17.0 g/dL 12.5 (L) Hematocrit 39.0 - 51.0 % 37.5 (L) MCV 80.0 - 100.0 fL 97.9 MCH 26.0 - 34.0 pg 32.6 MCHC 30.5 - 36.0 g/dL 33.3 RDW-CV 11.5 - 15.0 % 13.8 Platelet Count 150 - 400 k/uL 165 MPV 9.0 - 12.7 fL 10.0 Absolute nRBC <0.01 k/uL <0.01 Iron 41 - 186 ug/dL 83 TIBC 232 - 386 ug/dL 334 Transferrin Saturation 15.0 - 57.0 % 24.9 Vitamin B12 232 - 1,245 pg/mL 660 TSH 0.270 - 4.200 mIU/L 3.950 Assessment and Plan 1. Hyperlipidemia, unspecified hyperlipidemia type - ICD9: 272.4, ICD10: E78.5 (primary diagnosis) - to be determined upon return of lab results - Continue current medication. - Encouraged following a low carbohydrate, healthy oil intake diet. - LIPID PANEL BASIC 2. Herpes infection - ICD9: 054.9, ICD10: B00.9 Refilled. - HYDROXYZINE HCL 25 MG TABLET - VALACYCLOVIR 500 MG TABLET 3. Acquired hypothyroidism - ICD9: 244.9, ICD10: E03.9 - Instructed patient on importance of taking on an empty stomach either first thing in the morning or at bedtime. - continue current dose of Synthroid - LEVOTHYROXINE 100 MCG TABLET - TSH BLD 4. Primary hypertension - ICD9: 401.9, ICD10: I10 - good control - Continue current medication(s) - Goal of BP <130/80 - METOPROLOL TARTRATE 25 MG TABLET - LOSARTAN 100 MG TABLET - TRIAMTERENE 37.5 MG-HYDROCHLOROTHIAZIDE 25 MG TABLET - CBC - COMP METABOLIC PANEL 5. Muscle spasm of back - ICD9: 724.8, ICD10: M62.830 Refilled. - CYCLOBENZAPRINE 10 MG TABLET 6. Anemia, unspecified type - ICD9: 285.9, ICD10: D64.9 Monitor. Stop iron tablet. Take Multivitamin with iron. Cody Carrington MD documented in this encounterSt. [facility]08-[facility] Miscellaneous Notes* Telephone Encounter - Eliezer Lopez Ma - 12/07/2021 3:10 PM EDT CJ: 07/27/2021 Last refill: 06/20/2021 QTY: 180/90 Refills: 1 * Telephone Encounter - Jennifer Aviles Pss - 12/07/2021 1:37 PM EDT Patient has been identified by name and date of : Yes Pending Prescriptions Disp Refills METOPROLOL TARTRATE 25 MG TABLET 180 tablet 1 Sig: Take 1 tablet by mouth twice daily. LEONARDO: No LOSARTAN 100 MG TABLET 90 tablet 1 Sig: Take 1 tablet by mouth once daily. LEONARDO: No VALACYCLOVIR 500 MG TABLET 90 tablet 1 Sig: Take 1 tablet by mouth once daily. LEONARDO: No RX INSTRUCTIONS: Patient aware RX will be sent to pharmacy. No need to notify patient. Jennifer Traci Pss documented in this encounterSt. [facility]08-[facility]22 Miscellaneous Notes* Telephone Encounter - Leila Antonio LPN - 12/03/2021 12:28 PM EDT notified. Leila nAtonio LPN * Telephone Encounter - Cody Carrington MD - 12/03/2021 11:11 AM EDT No other labs needed. * Telephone Encounter - Sho Hardin LPN - 12/03/2021 10:14 AM EDT Patient is going to have labs completed prior to 12/27/2021 appointment. Do you have other labs that need ordered prior to this draw? documented in this encounterSt. [facility]05-17-2022 Miscellaneous Notes* Telephone Encounter - Leial Antonio LPN - 09/18/2021 12:23 PM EDT Patient has been identified by name and date of : Yes Patient phones for refill(s): Pending Prescriptions Disp Refills TAMSULOSIN 0.4 MG CAPSULE 30 capsule 1 Sig: Take 1 capsule by mouth daily at bedtime. LEONARDO: No Date of last office visit in primary care: 07/27/2021 5 month follow-up: 12/27/2021 Last 2 Encounter Wt Readings: Date: Wt: 07/27/2021 96.6 kg (213 lb) 06/20/2021 100.6 kg (221 lb 12.8 oz) Previous labs/tests for medication: Not applicable Please advise. Thank you. Leila Antonio LPN * Telephone Encounter - Cassidy Carrillo Pss - 09/18/2021 11:39 AM EDT Pharmacy verified in Epic Patient has been identified by name and date of : Yes Patient aware RX will be sent to pharmacy. No need to notify patient. Pharmacy phones for refill(s): Pending Prescriptions Disp Refills TAMSULOSIN 0.4 MG CAPSULE 30 capsule 1 Sig: Take 1 capsule by mouth daily at bedtime. LEONARDO: No Date of last office visit : Visit date not found Date of next office visit : Visit date not found Last 2 Encounter Wt Readings: Date: Wt: 07/27/2021 96.6 kg (213 lb) 06/20/2021 100.6 kg (221 lb 12.8 oz) Not applicable Please advise. Cassidy Carrillo Pss documented in this encounterSt. [facility]04-[facility]-2022 Miscellaneous Notes* Telephone Encounter - Krupa Rivera LPN - 08/03/2021 11:55 AM EDT Patient notified and voiced his understanding. * Telephone Encounter - Cody Carrington MD - 08/03/2021 11:06 AM EDT ASSESSMENT/PLAN: 1. Screening for colon cancer - ICD9: V76.51, ICD10: Z12.11 Reordered. - FECAL OCCULT BLOOD TEST Cody Carrington MD * Telephone Encounter - Leila Antonio LPN - 08/02/2021 2:16 PM EDT ifobt order pending. Leila Antonio LPN * Telephone Encounter - Anni Soto Pss - 08/02/2021 11:45 AM EDT Patient Mack called, requesting order for fecal kit. Please advise when ready, . documented in this encounterSt. 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 documented as of this encounter (statuses as of 08/03/2021) 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 documented as of this encounter (statuses as of 09/19/2021) 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 documented as of this encounter (statuses as of 12/03/2021) 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 documented as of this encounter (statuses as of 12/10/2021) 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 documented as of this encounter (statuses as of 12/27/2021) 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 documented as of this encounter (statuses as of 07/04/2022) 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 documented as of this encounter (statuses as of 08/16/2022) 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 documented as of this encounter (statuses as of 09/02/2022) 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 documented as of this encounter (statuses as of 10/01/2022) 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 documented as of this encounter (statuses as of 01/03/2023) 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 documented as of this encounter (statuses as of 01/09/2023) 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 documented as of this encounter (statuses as of 02/06/2023) 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 documented as of this encounter (statuses as of 02/06/2023) 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 documented as of this encounter (statuses as of 02/11/2023) 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 documented as of this encounter (statuses as of 06/16/2023) 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 documented as of this encounter (statuses as of 06/16/2023) 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 documented as of this encounter (statuses as of 06/23/2023) 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 documented as of this encounter (statuses as of 07/25/2023) [facility] Author Danielle Garrett [facility] June 17, 2023 3:12pm Note Date/Time June 17, 2023 3:12pm [facility] Medical Records Department [address] [place] [address] Counseling Note - Pharmacy 06/17/23 1511 MR#: [id number] Acct: [id number] Name: CLINT VILLAR Rep #:[id number] : 1940 82 From: Danielle Garrett PCP: Dr. Cody Carrington MD Status:A DM HAIR Y Location: [place] [id number] has performed discharge medication reconciliation and counseling for this patient. 1. APIXABAN 5MG PO BID The patient's discharge medication list was reviewed for discrepancies and discrepancies were resolved. The patient was counseled on the following discharge medications and changes in medications for homegoing were reviewed. The Reason for Use, instructions for use, and potential side effects were reviewed for all new medications. The patient's questions regarding all of their medications were answered. The patient was able to verbally demonstrate an understanding of their dischargemedications. Patient counseled by pharmacy technician instructorJomar. Medications at Discharge Home Medications atorvastatin 40 mg tablet 40 mg PO QHS cholesterol 07/08/19 levothyroxine 88 mcg tablet 88 mcg PO DAILY thyroid 07/08/19 losartan 100 mg tablet 100 mg PO QHS bp 07/08/19 valacyclovir 500 mg tablet 500 mg PO DAILY herpes 07/03/20 hydroxyzine HCl 25 mg tablet 25 mg PO QHS anxiety 06/16/23 tamsulosin 0.4 mg capsule 0.4 mg PO BID prostate 06/16/23 amlodipine 10 mg tablet 5 mg (1/2 x 10 mg) PO DAILY blood pressure #1 TAB 06/17/23 apixaban 5 mg tablet (Eliquis) 5 mg PO BID #60 tabs 06/17/23 metoprolol tartrate 50 mg tablet 50 mg PO BID #60 tabs 06/17/23 06/17/23 1512 <Electronically signed by Danielle Garrett> Date _ Danielle Garrett Cosigner Signature (if applicable): Date CC: ~ Signed [facility] Work Phone: Discharge summary Author Valentina Raza [facility] June 17, 2023 2:25pm Note Date/Time June 17, 2023 2:21pm [facility] Medical Records Department [address] [place] [id number] Instructions for Home/Discharge Instructions 06/17/23 1420 MR#: [id number] Acct: [id number] Name: JIANCLINT REBECCA Rep #:[id number] : 1940 82 From: Valentina Raza DO PCP: Dr. Cody Carrington MD Status:A DM HAIR Discharge Instructions Diet Discharge Diet: No restrictions Activity Discharge Activity: Return to Normal Activity Weight Bearing Status: Full weight bearing Follow Up Care Test Results: Test results from this visit will be discussed in further detail at your follow- up appointment, if applicable. Discharge Plan Admission Admit Date/Time: 06/16/23 16:46 Primary Reason for Your Visit: Atrial fibrillation Attending Provider: Valentina Raza Primary Care Provider: Cody Carrington Consulting Providers: Lor Aguilar Instructions Additional Instructions / Restrictions: Do not take any ibuprofen or Aleve while taking Eliquis, do not take any aspirinwhile on Eliquis Reduce your amlodipine to one half of a 10 mg pill daily Discharge Orders/Prescriptions Prescriptions: New metoprolol tartrate 50 mg Tablet 50 mg PO BID Qty: 60 0RF Eliquis 5 mg Tablet 5 mg PO BID Qty: 60 0RF Continued losartan 100 mg tablet 100 mg PO QHS atorvastatin 40 mg tablet 40 mg PO QHS levothyroxine 88 mcg tablet 88 mcg PO DAILY Patient Comments: TAKE 1 TABLET BY MOUTH ONCE DAILY BEFORE BREAKFAST valacyclovir 500 MG tablet 500 mg PO DAILY hydroxyzine HCl 25 mg tablet 25 mg PO QHS tamsulosin 0.4 mg capsule 0.4 mg PO BID Changed amlodipine 10 mg tablet 5 mg PO DAILY Qty: 1 0RF Discontinued metoprolol tartrate 25 mg tablet 25 mg PO BID Referrals / Follow Up: Cody Carrington MD [Primary Care Provider] - Within 2 Weeks Disposition Disposition (needs filled in before D/C Order can be placed): Home, Self Care 06/17/23 1425<Electronically signed by Valentina Raza DO>Valentina Raza DO CC: Dr. Lor Aguilar DO; Dr. Cody Carrington MD ~ Signed [facility] Work Phone: Evaluation note* Diagnosis Screening for colon cancer- Primary Special screening for malignant neoplasms, colon documented in this encounter [facility] note* Diagnosis Primary hypertension Unspecified essential hypertension Herpes infection Herpes simplex without mention of complication documented in this encounter [facility] note* Diagnosis Hyperlipidemia, unspecified hyperlipidemia type- Primary Herpes infection Herpes simplex without mention of complication Acquired hypothyroidism Unspecified hypothyroidism Primary hypertension Unspecified essential hypertension Muscle spasm of back Other symptoms referable to back Anemia, unspecified type documented in this encounter [facility] note* Diagnosis Hypertension, unspecified type- Primary Hyperlipidemia, unspecified hyperlipidemia type Impaired fasting glucose Hypothyroidism, unspecified type Screening for colon cancer Special screening for malignant neoplasms, colon documented in this encounter [facility] note* Diagnosis Hypertension, unspecified type- Primary [facility] Diagnosis Primary hypertension Unspecified essential hypertension documented in this encounter [facility] note* Diagnosis Urinary frequency- Primary Herpes infection Herpes simplex without mention of complication Acquired hypothyroidism Unspecified hypothyroidism Primary hypertension Unspecified essential hypertension Lower urinary tract symptoms (LUTS) Other symptoms involving urinary system Hyperlipidemia, unspecified hyperlipidemia type Positive colorectal cancer screening using Cologuard test documented in this encounter [facility] note* Diagnosis Elevated prostate specific antigen (PSA)- Primary Urinary frequency Lower urinary tract symptoms (LUTS) Other symptoms involving urinary system BPH with elevated PSA Hypertrophy of prostate without urinary obstruction and other lower urinary tract symptoms (LUTS) [facility] encounter [facility]* Diagnosis Elevated prostate specific antigen (PSA)- Primary documented in this encounter [facility] note* Diagnosis Orthostatic hypotension- Primary New onset atrial fibrillation (HCC) Atrial fibrillation documented in this encounter [facility] note* Diagnosis Onset Date Resolution Status Atrial fibrillation with RVR acute Elevated serum creatinine ac chris Hyperglycemia acute Leukocytosis acute Lightheadedness acute Transient hypotension acute [facility] Work Phone: Evaluation note* Diagnosis New onset atrial fibrillation (HCC)- Primary Atrial fibrillation Primary hypertension Unspecified essential hypertension Acquired hypothyroidism Unspecified hypothyroidism documented in this encounter [facility] note* Diagnosis New onset atrial fibrillation (HCC)- Primary Atrial fibrillation Primary hypertension Unspecified essential hypertension Obesity, Class I, BMI 30-34.9 Obesity, unspecified Anemia, unspecified type Hypothyroidism, unspecified type Impaired fasting glucose Elevated PSA Elevated prostate specific antigen (PSA) documented in this encounter [facility] note* Diagnosis BPH with elevated PSA Hypertrophy of prostate without urinary obstruction and other lower urinary tract symptoms (LUTS) documented in this encounter [facility] note* Diagnosis Paroxysmal atrial fibrillation (HCC)- Primary Atrial fibrillation At risk for stroke Other specified personal history presenting hazards to health Anticoagulant long-term use Long-term (current) use of anticoagulants documented in this encounter [facility] note* Diagnosis Routine medical exam- Primary Routine general medical examination at a health care facility Primary hypertension Unspecified essential hypertension Hypothyroidism, unspecified type Elevated PSA Elevated prostate specific antigen (PSA) Positive colorectal cancer screening using Cologuard test Impaired fasting glucose [facility] encounter [facility]* Diagnosis Positive colorectal cancer screening using Cologuard test- Primary Constipation, unspecified constipation type documented in this encounter [facility]* Diagnosis Constipation, unspecified constipation type documented in this encounter [facility]* Diagnosis Rectal mass- Primary Other symptoms involving digestive system [facility] encounter [facility]* Diagnosis Rectal mass- Primary Other symptoms involving digestive system documented in this [facility] Diagnosis BPH with elevated PSA Hypertrophy of prostate without urinary obstruction and other lower urinary tract symptoms (LUTS) documented in this encounter [facility]* Diagnosis Acquired hypothyroidism Unspecified hypothyroidism BPH with elevated PSA Hypertrophy of prostate without urinary obstruction and other lower urinary tract symptoms (LUTS) documented in this encounter [facility]* Diagnosis Rectal mass- Primary Other symptoms involving digestive system documented in this encounter [facility]* Diagnosis Elevated prostate specific antigen (PSA)- Primary Nodular prostate with lower urinary tract symptoms Nodular prostate with urinary obstruction Benign prostatic hyperplasia with incomplete bladder emptying documented in this encounter [facility]* Diagnosis Retroperitoneal lymphadenopathy- Primary Enlargement of lymph nodes documented in this encounter [facility]* Diagnosis Herpes infection Herpes simplex without mention of complication Primary hypertension Unspecified essential hypertension Hyperlipidemia, unspecified hyperlipidemia type Urinary frequency Lower urinary tract symptoms (LUTS) Other symptoms involving urinary system documented in this encounter [facility]* Diagnosis Acute cough documented in this encounter [facility]* Diagnosis Elevated prostate specific antigen (PSA)- Primary documented in this encounter [facility]* Diagnosis Retroperitoneal lymphadenopathy- Primary Enlargement of lymph nodes Prostate cancer (HCC) Malignant neoplasm of prostate documented in this encounter [facility]* Diagnosis Retroperitoneal lymphadenopathy Enlargement of lymph nodes Prostate cancer (HCC) Malignant neoplasm of prostate [facility] Diagnosis Fatigue, unspecified type- Primary Herpes infection Herpes simplex without mention of complication Need for influenza vaccination Need for prophylactic vaccination and inoculation against influenza Prostate cancer (HCC) Malignant neoplasm of prostate Anemia, unspecified type Hypothyroidism, unspecified type Obstructive uropathy Urinary obstruction, unspecified documented in this encounter [facility] note* Diagnosis Prostate cancer (HCC)- Primary Malignant neoplasm of prostate [facility] Diagnosis Prostate cancer (HCC)- Primary Malignant neoplasm of prostate [facility] Diagnosis Prostate cancer (HCC)- Primary Malignant neoplasm of prostate Hydronephrosis, unspecified hydronephrosis type HERMES (acute kidney injury) (HCC) Acute kidney failure, unspecified Hydronephrosis, unspecified hydronephrosis type [facility] Diagnosis Hydronephrosis, unspecified hydronephrosis type [facility] Diagnosis Bilateral hydronephrosis- Primary Hydronephrosis Retroperitoneal lymphadenopathy Enlargement of lymph nodes Hydronephrosis with ureteral stricture, not elsewhere classified HERMES (acute kidney injury) (HCC) Acute kidney failure, unspecified Prostate cancer (HCC) Malignant neoplasm of prostate Hydronephrosis, unspecified hydronephrosis type HERMES (acute kidney injury) (HCC) Acute kidney failure, unspecified [facility] Diagnosis Prostate cancer (HCC)- Primary Malignant neoplasm of prostate 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 Prostate cancer (HCC) Malignant neoplasm of prostate Hydronephrosis, unspecified hydronephrosis type HERMES (acute kidney injury) (HCC) Acute kidney failure, unspecified [facility] Diagnosis 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 Prostate cancer (HCC) Malignant neoplasm of prostate Prostate cancer (HCC) Malignant neoplasm of prostate Hydronephrosis, unspecified hydronephrosis type HERMES (acute kidney injury) (HCC) Acute kidney failure, unspecified [facility] Diagnosis Bilateral hydronephrosis- Primary Hydronephrosis Ureteral stent present Prostate cancer (HCC) Malignant neoplasm of prostate [facility] Diagnosis 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 Difficult cystoscopy. Has not yet voided (>6 hours); bladder scan 134 cc Patient concerned about ending up in ER Discussed findings. Patient elects to have Borrego re-insert. We'll try another voiding trial in 3 weeks. 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 Currently XRT PSA 5.5 from 73.59 Recommend he continue with therapy as recommended by oncology Plan PSA in 3 months Orders: BLADDER SCAN PROSTATE-SPECIFIC ANTIGEN DIAGNOSTIC; Future * Assessment & Plan Note - Radha Larsen MD - 04/14/2024 2:47 PM EST Associated Problem(s): Bilateral hydronephrosis Secondary to #1 Bilateral ureteral stents placed 03/08/[address] scan and bmp in 3 months to evaluate for stent removal or change Orders: BLADDER SCAN CT UROGRAM WO/W IVCON; Future iv contrast (will be provided with radiology test); CT Urogram WO/W Inject, intravenously, once for1 dose.No IV access, insert saline lock prior to the beginning of sedation, infusion, injection of imaging exam. Discontinue saline lock post exam. If Pt. has a central line or IVAD, may access for administration according to line specific nursing protocol. Once exam is complete flush line and de-access according to line specific nursing protocol in the CT contrast administration guidelines link. 0.9 % sodium chloride (NACL 0.9%) infusion; Inject 5-30 mL/hr intravenously one time only for 1 dose. Administer at rate defined per CT contrast administration specifications. To be provided with radiology test. BASIC METABOLIC PANEL; Future * Assessment & Plan Note - Radha Larsen MD - 04/14/2024 2:45 PM EST Associated Problem(s): Acute urinary retention Borrego out since this AM. Void here. PVR 93 cc. 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 documented in this encounter [facility] note* Diagnosis Prostate cancer (HCC)- Primary Malignant neoplasm of prostate Bilateral hydronephrosis Hydronephrosis Acute urinary retention Other specified retention of urine Prostate cancer (HCC)- Primary Malignant neoplasm of prostate Bilateral hydronephrosis Hydronephrosis Acute urinary retention Other specified retention of urine Other hydronephrosis Anemia, unspecified type- Primary Urinary tract infection without hematuria, site unspecified documented in this encounter [facility] note* Diagnosis Prostate cancer (HCC)- Primary Malignant neoplasm of prostate Bilateral hydronephrosis Hydronephrosis Acute urinary retention Other specified retention of urine Prostate cancer (HCC)- Primary Malignant neoplasm of prostate Bilateral hydronephrosis Hydronephrosis Acute urinary retention Other specified retention of urine Other hydronephrosis Complicated UTI (urinary tract infection)- Primary Urinary tract infection, site not specified Muscle spasm of back Other symptoms referable to back documented in this encounter [facility] note* Diagnosis Prostate cancer (HCC)- Primary Malignant neoplasm of prostate Bilateral hydronephrosis Hydronephrosis Acute urinary retention Other specified retention of urine Prostate cancer (HCC)- Primary Malignant neoplasm of prostate Bilateral hydronephrosis Hydronephrosis Acute urinary retention Other specified retention of urine Other hydronephrosis Dysuria- Primary New onset atrial fibrillation (HCC) Atrial fibrillation Bradycardia Other specified cardiac dysrhythmias Paroxysmal atrial fibrillation (HCC) Atrial fibrillation Obstructive uropathy Urinary obstruction, unspecified Anemia, unspecified type Gastroesophageal reflux disease, unspecified whether esophagitis present documented in this encounter [facility] note* Diagnosis Prostate cancer (HCC)- Primary Malignant neoplasm of prostate Bilateral hydronephrosis Hydronephrosis Acute urinary retention Other specified retention of urine Prostate cancer (HCC)- Primary Malignant neoplasm of prostate Bilateral hydronephrosis Hydronephrosis Acute urinary retention Other specified retention of urine Other hydronephrosis Dysuria- Primary [facility] Diagnosis Prostate cancer (HCC)- Primary Malignant neoplasm of prostate Bilateral hydronephrosis Hydronephrosis Acute urinary retention Other specified retention of urine Prostate cancer (HCC)- Primary Malignant neoplasm of prostate Bilateral hydronephrosis Hydronephrosis Acute urinary retention Other specified retention of urine Other hydronephrosis Prostate cancer (HCC)- Primary Malignant neoplasm of prostate [facility] Diagnosis Prostate cancer (HCC)- Primary Malignant neoplasm of prostate Bilateral hydronephrosis Hydronephrosis Acute urinary retention Other specified retention of urine Prostate cancer (HCC)- Primary Malignant neoplasm of prostate Bilateral hydronephrosis Hydronephrosis Acute urinary retention Other specified retention of urine Other hydronephrosis 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 [facility]* Diagnosis Prostate cancer (HCC)- Primary Malignant neoplasm of prostate Bilateral hydronephrosis Hydronephrosis Acute urinary retention Other specified retention of urine Prostate cancer (HCC)- Primary Malignant neoplasm of prostate Bilateral hydronephrosis Hydronephrosis Acute urinary retention Other specified retention of urine Other hydronephrosis Dysuria [facility]* Diagnosis Prostate cancer (HCC)- Primary Malignant neoplasm of prostate Bilateral hydronephrosis Hydronephrosis Acute urinary retention Other specified retention of urine Prostate cancer (HCC)- Primary Malignant neoplasm of prostate Bilateral hydronephrosis Hydronephrosis Acute urinary retention Other specified retention of urine Other hydronephrosis Acute URI- Primary Acute upper respiratory infections of unspecified site [facility] Diagnosis Prostate cancer (HCC)- Primary Malignant neoplasm of prostate Bilateral hydronephrosis Hydronephrosis Acute urinary retention Other specified retention of urine Prostate cancer (HCC)- Primary Malignant neoplasm of prostate Bilateral hydronephrosis Hydronephrosis Acute urinary retention Other specified retention of urine Other hydronephrosis Bilateral hydronephrosis Hydronephrosis Other hydronephrosis [facility]* Diagnosis Prostate cancer (HCC)- Primary Malignant neoplasm of prostate Bilateral hydronephrosis Hydronephrosis Acute urinary retention Other specified retention of urine Prostate cancer (HCC)- Primary Malignant neoplasm of prostate Bilateral hydronephrosis Hydronephrosis Acute urinary retention Other specified retention of urine Other hydronephrosis Complicated UTI (urinary tract infection)- Primary Urinary tract infection, site not specified 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 Diagnosis Prostate cancer (HCC)- Primary Malignant neoplasm of prostate Bilateral hydronephrosis Hydronephrosis Acute urinary retention Other specified retention of urine Prostate cancer (HCC)- Primary Malignant neoplasm of prostate Bilateral hydronephrosis Hydronephrosis Acute urinary retention Other specified retention of urine Other hydronephrosis Prostate cancer (HCC)- Primary Malignant neoplasm of prostate [facility] Diagnosis Prostate cancer (HCC)- Primary Malignant neoplasm of prostate Bilateral hydronephrosis Hydronephrosis Acute urinary retention Other specified retention of urine Prostate cancer (HCC)- Primary Malignant neoplasm of prostate Bilateral hydronephrosis Hydronephrosis Acute urinary retention Other specified retention of urine Other hydronephrosis New onset atrial fibrillation (HCC) Atrial fibrillation Prostate cancer (HCC)- Primary Malignant neoplasm of prostate Bilateral hydronephrosis Hydronephrosis [facility] this [facility] Diagnosis Prostate cancer (HCC)- Primary Malignant neoplasm of prostate Bilateral hydronephrosis Hydronephrosis Acute urinary retention Other specified retention of urine Prostate cancer (HCC)- Primary Malignant neoplasm of prostate Bilateral hydronephrosis Hydronephrosis Acute urinary retention Other specified retention of urine Other hydronephrosis Prostate cancer (HCC)- Primary Malignant neoplasm of prostate Urinary frequency Bilateral hydronephrosis Hydronephrosis * Assessment & Plan Note - Radha Larsen MD - 07/15/2024 10:44 AM EDT Associated Problem(s): Prostate cancer (HCC) Castrate sensitive metastatic prostate cancer On Eligard through oncology XRT PSA 1.88 (down from 73.59 originally Lymphadenopathy resolved on CT Continue PSA surveillance * Assessment & Plan Note - Radha Larsen MD - 07/15/2024 10:44 AM EDT Associated Problem(s): Bilateral hydronephrosis Bilateral hydronephrosis (stents in place) Resolved on follow up CT Patient requested stent removal. See procedure note Follow up 6 weeks with renal US and bmp Orders: UA DIP, URINE (POC) BLADDER SCAN CYSTO W/URETER STENT EXTRACT BASIC METABOLIC PANEL; Future US KIDNEY/BLADDER; Future cephALEXin (KEFLEX) 500 mg capsule; Take 1 capsule by mouth three times a day for 3 days. * Assessment & Plan Note - Radha Larsen MD - 07/15/2024 10:44 AM EDT Associated Problem(s): Urinary frequency PVR here looks good. Prior retention resolved (Borrego out) Recheck urine at next visit [facility] Diagnosis Prostate cancer (HCC)- Primary Malignant neoplasm of prostate Bilateral hydronephrosis Hydronephrosis Acute urinary retention Other specified retention of urine Prostate cancer (HCC)- Primary Malignant neoplasm of prostate Bilateral hydronephrosis Hydronephrosis Acute urinary retention Other specified retention of urine Other hydronephrosis Prostate cancer (HCC)- Primary Malignant neoplasm of prostate Urinary frequency Bilateral hydronephrosis Hydronephrosis Bilateral hydronephrosis Hydronephrosis 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 Diagnosis Prostate cancer (HCC)- Primary Malignant neoplasm of prostate Bilateral hydronephrosis Hydronephrosis Acute urinary retention Other specified retention of urine Prostate cancer (HCC)- Primary Malignant neoplasm of prostate Bilateral hydronephrosis Hydronephrosis Acute urinary retention Other specified retention of urine Other hydronephrosis Prostate cancer (HCC)- Primary Malignant neoplasm of prostate Urinary frequency Bilateral hydronephrosis Hydronephrosis Gastroesophageal reflux disease, unspecified whether esophagitis present documented [facility]* Diagnosis Prostate cancer (HCC)- Primary Malignant neoplasm of prostate Bilateral hydronephrosis Hydronephrosis Acute urinary retention Other specified retention of urine Prostate cancer (HCC)- Primary Malignant neoplasm of prostate Bilateral hydronephrosis Hydronephrosis Acute urinary retention Other specified retention of urine Other hydronephrosis Prostate cancer (HCC)- Primary Malignant neoplasm of prostate Urinary frequency Bilateral hydronephrosis Hydronephrosis Prostate cancer (HCC)- Primary Malignant neoplasm of prostate [facility] Diagnosis Prostate cancer (HCC)- Primary Malignant neoplasm of prostate Bilateral hydronephrosis Hydronephrosis Acute urinary retention Other specified retention of urine Prostate cancer (HCC)- Primary Malignant neoplasm of prostate Bilateral hydronephrosis Hydronephrosis Acute urinary retention Other specified retention of urine Other hydronephrosis Prostate cancer (HCC)- Primary Malignant neoplasm of prostate Urinary frequency Bilateral hydronephrosis Hydronephrosis Bilateral hydronephrosis- Primary Hydronephrosis Prostate cancer (HCC) Malignant neoplasm of prostate Urinary frequency Prostate cancer (HCC)- Primary Malignant neoplasm of prostate [facility] Diagnosis Prostate cancer (HCC)- Primary Malignant neoplasm of prostate Bilateral hydronephrosis Hydronephrosis Acute urinary retention Other specified retention of urine Prostate cancer (HCC)- Primary Malignant neoplasm of prostate Bilateral hydronephrosis Hydronephrosis Acute urinary retention Other specified retention of urine Other hydronephrosis Prostate cancer (HCC)- Primary Malignant neoplasm of prostate Urinary frequency Bilateral hydronephrosis Hydronephrosis Bilateral hydronephrosis- Primary Hydronephrosis Prostate cancer (HCC) Malignant neoplasm of prostate Urinary frequency Postnasal drip- Primary Screening for depression Encounter for screening examination for other mental health and behavioral disorders Muscle spasm of back Other symptoms referable to back Hyperlipidemia, unspecified hyperlipidemia type Herpes infection Herpes simplex without mention of complication Acquired hypothyroidism Unspecified hypothyroidism Primary hypertension Unspecified essential hypertension Urinary frequency Impaired fasting glucose Anemia, unspecified type documented [facility]* Diagnosis Prostate cancer (HCC)- Primary Malignant neoplasm of prostate Bilateral hydronephrosis Hydronephrosis Acute urinary retention Other specified retention of urine Prostate cancer (HCC)- Primary Malignant neoplasm of prostate Bilateral hydronephrosis Hydronephrosis Acute urinary retention Other specified retention of urine Other hydronephrosis Prostate cancer (HCC)- Primary Malignant neoplasm of prostate Urinary frequency Bilateral hydronephrosis Hydronephrosis Bilateral hydronephrosis- Primary Hydronephrosis Prostate cancer (HCC) Malignant neoplasm of prostate Urinary frequency Prostate cancer (HCC)- Primary Malignant neoplasm of prostate documented in this encounter [facility] note* Diagnosis Prostate cancer (HCC)- Primary Malignant neoplasm of prostate Bilateral hydronephrosis Hydronephrosis Acute urinary retention Other specified retention of urine Prostate cancer (HCC)- Primary Malignant neoplasm of prostate Bilateral hydronephrosis Hydronephrosis Acute urinary retention Other specified retention of urine Other hydronephrosis Prostate cancer (HCC)- Primary Malignant neoplasm of prostate Urinary frequency Bilateral hydronephrosis Hydronephrosis Bilateral hydronephrosis- Primary Hydronephrosis Prostate cancer (HCC) Malignant neoplasm of prostate Urinary frequency Prostate cancer (HCC)- Primary Malignant neoplasm of prostate documented in this encounter [facility] note* Diagnosis Prostate cancer (HCC)- Primary Malignant neoplasm of prostate Bilateral hydronephrosis Hydronephrosis Acute urinary retention Other specified retention of urine Prostate cancer (HCC)- Primary Malignant neoplasm of prostate Bilateral hydronephrosis Hydronephrosis Acute urinary retention Other specified retention of urine Other hydronephrosis Prostate cancer (HCC)- Primary Malignant neoplasm of prostate Urinary frequency Bilateral hydronephrosis Hydronephrosis Bilateral hydronephrosis- Primary Hydronephrosis Prostate cancer (HCC) Malignant neoplasm of prostate Urinary frequency Hypothyroidism, unspecified type- Primary [facility] noteNo assessment information availableBlFremont [facility] Work Phone: Evaluation note* Diagnosis Prostate cancer (HCC)- Primary Malignant neoplasm of prostate Bilateral hydronephrosis Hydronephrosis Acute urinary retention Other specified retention of urine Prostate cancer (HCC)- Primary Malignant neoplasm of prostate Bilateral hydronephrosis Hydronephrosis Acute urinary retention Other specified retention of urine Other hydronephrosis Prostate cancer (HCC)- Primary Malignant neoplasm of prostate Urinary frequency Bilateral hydronephrosis Hydronephrosis Bilateral hydronephrosis- Primary Hydronephrosis Prostate cancer (HCC) Malignant neoplasm of prostate Urinary frequency Medicare annual wellness visit, subsequent- Primary Routine general medical examination at a health care facility Gastroesophageal reflux disease, unspecified whether esophagitis present Herpes infection Herpes simplex without mention of complication 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 Diagnoses Elevated prostate specific antigen (PSA) Procedures PROSTATE BIOPSY GUKI PROSTATE NEEDLE BIOPSY ANY APPROACH US, TRANSRECTAL URNLS DIP STICK/TABLET RGNT AUTO W/O MICROSCOPY US GUIDANCE NEEDLE PLACEMENT IMG S&I Robert Toscano PA-C [address] [place] [address] [address] Referral ID Status Reason Start Date Expiration Date Visits Requested Visits Authorized [id number] Pending Review Auto-Generat ed Referral 02/10/2023 02/11/2024 1 1 [facility] for referral (narrative)* Outpatient Procedure (Routine) - Pending Review Specialty Diagnoses / Procedures Referred By Tate jiménez Referred To Contact [facility] Diagnoses Orthostatic hypotension Procedures ECG COMPLETE ECG ROUTINE ECG W/LEAST 12 LDS W/I&R Cody Carrington MD [address] [place] [address] [facility] [address] [address] Referral ID Status Reason Start Date Expiration Date Visits Requested Visits Authorized [id number] Pending Review Auto-Generat ed Referral 06/16/2023 06/15/2024 1 1 [facility] for referral (narrative)* Outpatient Procedure (Routine) - Authorized Specialty Diagnoses / Procedures Referred By Fideliaac t Referred To Contact [facility] Diagnoses Rectal mass Procedures COLONOSCOPY SCREENING COLONOSCOPY FLX DX W/COLLJ SPEC WHEN Fernando Villareal MD [address] [place] [address] [place] [id number] Referral ID Status Reason Start Date Expiration Date Visits Requested Visits Authorized [id number] Authorized Auto-Generat ed Referral 12/08/2023 12/07/2024 1 1 [facility] for referral (narrative)* Outpatient Procedure (Routine) - Closed Specialty Diagnoses / Procedures [facility] Referred To Contact [facility] Diagnoses Rectal mass Procedures COLONOSCOPY SCREENING COLONOSCOPY FLX DX W/COLLJ SPEC WHEN Fernando Villareal MD [address] [place] [address] [place] [phone] Referral ID Status Reason Start Date Expiration Date V isits Requested Visits Authorized [id number] Closed Auto-Generate d Referral 12/08/2023 12/07/2024 1 1 [facility] for referral (narrative)* Outpatient Procedure (Routine) - New Request Specialty Diagnoses / Procedures Referred By Tate t Referred To Contact [facility] Diagnoses Elevated prostate specific antigen (PSA) Procedures PROSTATE BIOPSY GUKI PROSTATE NEEDLE BIOPSY ANY APPROACH US, TRANSRECTAL URNLS DIP STICK/TABLET RGNT AUTO W/O MICROSCOPY US GUIDANCE NEEDLE PLACEMENT IMG S&I Devin Cortes MD [address] [place] [address] [place] [address] Referral ID Status Reason Start Date Expiration Date Visits Requested Visits Authorized [id number] New Request Auto-Generat ed Referral 12/31/2023 12/30/2024 1 1 [facility] for referral (narrative)* Diagnostic Procedure Only (Routine) - Open Specialty Diagnoses / Procedures Referred By Contac t Referred To Contact [facility] Diagnoses Retroperitoneal lymphadenopathy Prostate cancer (HCC) Procedures NM BONE WHOLE BODY BONE &/JO[place] [address] [place] [address] [facility] [address] [place] [address] Referral ID Status Reason Start Date Expiration Date V isits Requested Visits Authorized [id number] Open Auto-Generate d Referral 02/13/2024 03/14/2025 1 1 [facility] for referral (narrative)* Diagnostic Procedure Only (Routine) - Closed Specialty Diagnoses / Procedures [facility] Referred To Contact [facility] Diagnoses Retroperitoneal lymphadenopathy Prostate cancer (HCC) Procedures NM BONE WHOLE BODY BONE &/JO[place] [address] [place] [address] Molecular [facility] Imaging [address] [place] [address] Referral ID Status Reason Start Date Expiration Date V isits Requested Visits Authorized [id number] Closed Auto-Generate d Referral 05/05/2023 05/04/2024 1 1 [facility] for referral (narrative)* Diagnostic Procedure Only (Routine) - New Request Specialty Diagnoses / Procedures Referred By Contac t Referred To Contact XR IMAGING Diagnoses Bilateral hydronephrosis Ureteral stent present Procedures XR ABDOMEN 1V SUPINE RADIOLOGIC EXAM ABDOMEN 1 VIEW Radha Larsen MD [address] [place] [address] [place] [address] Referral ID Status Reason Start Date Expiration Date Visits Requested Visits Authorized [id number] New Request Auto-Generat ed Referral 04/07/2025 1 1 [facility] for referral (narrative)No reason for referral information [facility] Work Phone: Reason for visit Narrative* Outpatient Procedure (Routine) - Closed Specialty Diagnoses / Procedures Referred By Contac t Referred To Contact [facility] Diagnoses Rectal mass Procedures COLONOSCOPY SCREENING COLONOSCOPY FLX DX W/COLLJ SPEC WHEN PFRMD Fernando Wen MD [address] [place] [address] [facility] [address] [place] [address] Referral ID Status Reason Start Date Expiration Date V isits Requested Visits Authorized [id number] Closed Auto-Generate d Referral 12/08/2023 12/07/2024 1 1 [facility] for visit Narrative* Diagnostic Procedure Only (Routine) - Closed Specialty Diagnoses / Procedures Referred By Contac t Referred To Contact [facility]LECULAR [facility] FUNCTIONAL IMAGING Diagnoses Retroperitoneal lymphadenopathy Prostate cancer (HCC) Procedures NM BONE WHOLE BODY BONE &/JO[place] [address] [place] [address] Molecular [facility] Functional Imaging [address] [place] [address] Referral ID Status Reason Start Date Expiration Date V isits Requested Visits Authorized [id number] Closed Auto-Generate d Referral 05/05/2023 05/04/2024 1 1 [facility] for visit Narrative* MRI/CT (Routine) - Closed Specialty Diagnoses / Procedures Referred By Contac t Referred To Contact CT IMAGING Diagnoses Bilateral hydronephrosis Other hydronephrosis Procedures CT UROGRAM WO/W IVCON CT ABD & PELVIS W/WO CONTRST 1+ BODY REGRadha Menard MD [address] [place] [address] Phone: tel: fax: CT IMAGING [facility] Referral ID Status Reason Start Date Expiration Date V isits Requested Visits Authorized [id number] Closed Auto-Generate d Referral 06/08/2024 05/04/[address] [facility] Reason for Referral Specialty Diagnoses / Procedures Referred By Contac t Referred To Contact Urology Diagnoses Urinary frequency Lower urinary tract symptoms (LUTS) Procedures CONSULT TO UROLOGY OFFICE/OUTPATIENT [facility] MDM 60-74 MINUTES Cody Carrington MD [address] [place] [address] Referral ID Status Reason Start Date Expiration Date Visits Requested Visits Authorized [id number] Pending Review PCP Requested Referral 01/03/2023 01/03/2024 1 1 Specialty Diagnoses / Procedures Referred By Contac t Referred To Contact Cardiology Diagnoses New onset atrial fibrillation (HCC) Procedures CONSULT TO CARDIOLOGY Cody Carrington MD [address] [place] [address] Referral ID Status Reason Start Date Expiration Date Visits Requested Visits Authorized [id number] Ref Not Required PCP Requested Referral 06/23/2023 06/22/2024 1 1 Specialty Diagnoses / Procedures Referred By Contac t Referred To Contact CT IMAGING Diagnoses Constipation, unspecified constipation type Procedures CT COLONOGRAPHY SCREENING WO IVCON CT COLONOGRPHY DX IMAGE POSTPROCESS W/O CONTRAST Cody Carrington MD [address] [place] [address] [address] [address] [facility] Referral ID Status Reason Start Date Expiration Date Visits Requested Visits Authorized [id number] Pending Review Auto-Generat ed Referral 10/25/2023 11/23/2024 1 1 Referral ID Status Reason Start Date Expiration Date V isits Requested Visits Authorized [id number] Closed Auto-Generate d Referral 11/19/2023 05/04/2024 1 1 Specialty Diagnoses / Procedures Referred By Contac t Referred To Contact Diagnoses Rectal mass Procedures CONSULT TO HEMATOLOGY/ONCOLOGY OFFICE/OUTPATIENT [facility] MDM 60 MINUTES Cody Carrington MD [facility] [place] [address] Referral ID Status Reason Start Date Expiration Date Visits Requested Visits Authorized [id number] Authorized PCP Requested Referral 12/04/2023 12/03/2024 1 1 Specialty Diagnoses / Procedures Referred By Contac t Referred To Contact General Surgery Diagnoses Rectal mass Procedures CONSULT TO GENERAL SURGERY OFFICE/OUTPATIENT [facility] 60 MINUTES Cody Carrington MD [address] [place] [address] Referral ID Status Reason Start Date Expiration Date V isits Requested Visits Authorized [id number] Closed PCP Requested Referral 12/05/2023 12/03/2024 1 1 Specialty Diagnoses / Procedures Referred By Contac t Referred To Contact Radiation Oncology Diagnoses Prostate cancer (HCC) Procedures RAD/ONC CONSULT OFFICE/OUTPATIENT [facility] [address] [place] [address] [place] [address] Referral ID Status Reason Start Date Expiration Date Visits Requested Visits Authorized [id number] Authorized PCP Requested Referral 4 02/26/2025 1 1 Specialty Diagnoses / Procedures Referred By Contac t Referred To Contact CT IMAGING Diagnoses Hydronephrosis, unspecified hydronephrosis type Procedures CT ABD/PEL WO IVCON CT ABD & PELVIS W/O CONTRAST Devin Cortes MD [address] [place] [id number] Imaging [place] [address] Referral ID Status Reason Start Date Expiration Date Visits Requested Visits Authorized [id number] Authorized Auto-Generat ed Referral 4 05/04/2024 3 3 Specialty Diagnoses / Procedures Referred By Contac t Referred To Contact Diagnoses 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) Procedures CT SIM PLANNING RADIATION ONCOLOGY THER RAD SIMULAJ-AIDED FIELD SETTING COMPLEX Rodolfo Aguilar MD [address] [place] [address] Referral ID Status Reason Start Date Expiration Date Visits Requested Visits Authorized [id number] New Request PCP Requested Referral 4 05/30/2024 1 1 Specialty Diagnoses / Procedures Referred By Contjefferson t Referred To Contact CT IMAGING Diagnoses Bilateral hydronephrosis Other hydronephrosis Procedures CT UROGRAM WO/W IVCON CT ABD & PELVIS W/WO CONTRST 1+ BODY REGNS Radha Larsen MD [address] [place] [address] [place] [address] Referral ID Status Reason Start Date Expiration Date V isits Requested Visits Authorized [id number] Open Auto-Generate d Referral 04/14/2024 05/14/2025 1 1 Chief Complaint and Reason for Visit Chief Complaint NEW ONSET AFIB WITH RVR NEW ONSET AFIB WITH RVR Reason for Visit Atrial fibrillation with RVR Elevated serum creatinine Hyperglycemia Leukocytosis Lightheadedness Transient hypotension Chief Complaint Admit Date 6 M FU November 22, 2024 1:48 pm Family History No Family History Records Found Relationship Condition Age at Onset Recorded Date/T jimmy Not Specified Hyperlipidemia Unknown Hypertension Unknown Disorder of thyroid Unknown Advance Directives No Advanced Directives Records Found Advance Directive Response Recorded Date/ Time Living Will No June 16, 024 3:43pm Power of Carpentry Teacher No June 16, 2023 3:43pm Advance Directive Response Recorded Date/ Time Living Will No June 16 8:04pm Power of Carpentry Teacher No June 16, 2023 8:04pm Summary Purpose Additional Source Comments Source Comments (unrecognize d section and content) In the event this informatio n is protected by the Federal Confidentiality of Alcohol and Drug Abuse Patient Records regulations: The Federal rules restrict any use of the information to criminally investigate or prosecute any alcohol or drug abuse patient.[facility] the event this information is protected by the Federal Confidentiality of Alcohol and Drug Abuse Patient Records regulations: The Federal rules restrict any use of the information to criminally investigate or prosecute any alcohol or drug abuse patient.[facility] the event this information is protected by the Federal Confidentiality of Alcohol and Drug Abuse Patient Records regulations: The Federal rules restrict any use of the information to criminally investigate or prosecute any alcohol or drug abuse patient.[facility]In the event this information is protected by the Federal Confidentiality of Alcohol and Drug Abuse Patient Records regulations: The Federal rules restrict any use of the information to criminally investigate or prosecute any alcohol or drug abuse patient.[facility] HospitalIn the event this information is protected by the Federal Confidentiality of Alcohol and Drug Abuse Patient Records regulations: The Federal rules restrict any use of the information to criminally investigate or prosecute any alcohol or drug abuse patient.[facility] the event this information is protected by the Federal Confidentiality of Alcohol and Drug Abuse Patient Records regulations: The Federal rules restrict any use of the information to criminally investigate or prosecute any alcohol or drug abuse patient.[facility]In the event this information is protected by the Federal Confidentiality of Alcohol and Drug Abuse Patient Records regulations: The Federal rules restrict any use of the information to criminally investigate or prosecute any alcohol or drug abuse patient.[facility] HospitalIn the event this information is protected by the Federal Confidentiality of Alcohol and Drug Abuse Patient Records regulations: The Federal rules restrict any use of the information to criminally investigate or prosecute any alcohol or drug abuse patient.[facility] the event this information is protected by the Federal Confidentiality of Alcohol and Drug Abuse Patient Records regulations: The Federal rules restrict any use of the information to criminally investigate or prosecute any alcohol or drug abuse patient.[facility] the event this information is protected by the Federal Confidentiality of Alcohol and Drug Abuse Patient Records regulations: The Federal rules restrict any use of the information to criminally investigate or prosecute any alcohol or drug abuse patient.[facility]In the event this information is protected by the Federal Confidentiality of Alcohol and Drug Abuse Patient Records regulations: The Federal rules restrict any use of the information to criminally investigate or prosecute any alcohol or drug abuse patient.[facility] HospitalIn the event this information is protected by the Federal Confidentiality of Alcohol and Drug Abuse Patient Records regulations: The Federal rules restrict any use of the information to criminally investigate or prosecute any alcohol or drug abuse patient.[facility] the event this information is protected by the Federal Confidentiality of Alcohol and Drug Abuse Patient Records regulations: The Federal rules restrict any use of the information to criminally investigate or prosecute any alcohol or drug abuse patient.[facility]In the event this information is protected by the Federal Confidentiality of Alcohol and Drug Abuse Patient Records regulations: The Federal rules restrict any use of the information to criminally investigate or prosecute any alcohol or drug abuse patient.[facility] the event this information is protected by the Federal Confidentiality of Alcohol and Drug Abuse Patient Records regulations: The Federal rules restrict any use of the information to criminally investigate or prosecute any alcohol or drug abuse patient.[facility] HospitalIn the event this information is protected by the Federal Confidentiality of Alcohol and Drug Abuse Patient Records regulations: The Federal rules restrict any use of the information to criminally investigate or prosecute any alcohol or drug abuse patient.[facility] HospitalIn the event this information is protected by the Federal Confidentiality of Alcohol and Drug Abuse Patient Records regulations: The Federal rules restrict any use of the information to criminally investigate or prosecute any alcohol or drug abuse patient.[facility] HospitalIn the event this information is protected by the Federal Confidentiality of Alcohol and Drug Abuse Patient Records regulations: The Federal rules restrict any use of the information to criminally investigate or prosecute any alcohol or drug abuse patient.[facility] HospitalIn the event this information is protected by the Federal Confidentiality of Alcohol and Drug Abuse Patient Records regulations: The Federal rules restrict any use of the information to criminally investigate or prosecute any alcohol or drug abuse patient.[facility] HospitalIn the event this information is protected by the Federal Confidentiality of Alcohol and Drug Abuse Patient Records regulations: The Federal rules restrict any use of the information to criminally investigate or prosecute any alcohol or drug abuse patient.[facility] HospitalIn the event this information is protected by the Federal Confidentiality of Alcohol and Drug Abuse Patient Records regulations: The Federal rules restrict any use of the information to criminally investigate or prosecute any alcohol or drug abuse patient.[facility] HospitalIn the event this information is protected by the Federal Confidentiality of Alcohol and Drug Abuse Patient Records regulations: The Federal rules restrict any use of the information to criminally investigate or prosecute any alcohol or drug abuse patient.[facility] HospitalIn the event this information is protected by the Federal Confidentiality of Alcohol and Drug Abuse Patient Records regulations: The Federal rules restrict any use of the information to criminally investigate or prosecute any alcohol or drug abuse patient.[facility] HospitalIn the event this information is protected by the Federal Confidentiality of Alcohol and Drug Abuse Patient Records regulations: The Federal rules restrict any use of the information to criminally investigate or prosecute any alcohol or drug abuse patient.[facility]In the event this information is protected by the Federal Confidentiality of Alcohol and Drug Abuse Patient Records regulations: The Federal rules restrict any use of the information to criminally investigate or prosecute any alcohol or drug abuse patient.[facility] the event this information is protected by the Federal Confidentiality of Alcohol and Drug Abuse Patient Records regulations: The Federal rules restrict any use of the information to criminally investigate or prosecute any alcohol or drug abuse patient.[facility] HospitalIn the event this information is protected by the Federal Confidentiality of Alcohol and Drug Abuse Patient Records regulations: The Federal rules restrict any use of the information to criminally investigate or prosecute any alcohol or drug abuse patient.[facility] HospitalIn the event this information is protected by the Federal Confidentiality of Alcohol and Drug Abuse Patient Records regulations: The Federal rules restrict any use of the information to criminally investigate or prosecute any alcohol or drug abuse patient.[facility] HospitalIn the event this information is protected by the Federal Confidentiality of Alcohol and Drug Abuse Patient Records regulations: The Federal rules restrict any use of the information to criminally investigate or prosecute any alcohol or drug abuse patient.[facility] HospitalIn the event this information is protected by the Federal Confidentiality of Alcohol and Drug Abuse Patient Records regulations: The Federal rules restrict any use of the information to criminally investigate or prosecute any alcohol or drug abuse patient.[facility] HospitalIn the event this information is protected by the Federal Confidentiality of Alcohol and Drug Abuse Patient Records regulations: The Federal rules restrict any use of the information to criminally investigate or prosecute any alcohol or drug abuse patient.[facility] HospitalIn the event this information is protected by the Federal Confidentiality of Alcohol and Drug Abuse Patient Records regulations: The Federal rules restrict any use of the information to criminally investigate or prosecute any alcohol or drug abuse patient.[facility] HospitalIn the event this information is protected by the Federal Confidentiality of Alcohol and Drug Abuse Patient Records regulations: The Federal rules restrict any use of the information to criminally investigate or prosecute any alcohol or drug abuse patient.[facility] HospitalIn the event this information is protected by the Federal Confidentiality of Alcohol and Drug Abuse Patient Records regulations: The Federal rules restrict any use of the information to criminally investigate or prosecute any alcohol or drug abuse patient.[facility] HospitalIn the event this information is protected by the Federal Confidentiality of Alcohol and Drug Abuse Patient Records regulations: The Federal rules restrict any use of the information to criminally investigate or prosecute any alcohol or drug abuse patient.[facility] HospitalIn the event this information is protected by the Federal Confidentiality of Alcohol and Drug Abuse Patient Records regulations: The Federal rules restrict any use of the information to criminally investigate or prosecute any alcohol or drug abuse patient.[facility] HospitalIn the event this information is protected by the Federal Confidentiality of Alcohol and Drug Abuse Patient Records regulations: The Federal rules restrict any use of the information to criminally investigate or prosecute any alcohol or drug abuse patient.[facility] HospitalIn the event this information is protected by the Federal Confidentiality of Alcohol and Drug Abuse Patient Records regulations: The Federal rules restrict any use of the information to criminally investigate or prosecute any alcohol or drug abuse patient.[facility] HospitalIn the event this information is protected by the Federal Confidentiality of Alcohol and Drug Abuse Patient Records regulations: The Federal rules restrict any use of the information to criminally investigate or prosecute any alcohol or drug abuse patient.[facility] HospitalIn the event this information is protected by the Federal Confidentiality of Alcohol and Drug Abuse Patient Records regulations: The Federal rules restrict any use of the information to criminally investigate or prosecute any alcohol or drug abuse patient.[facility] HospitalIn the event this information is protected by the Federal Confidentiality of Alcohol and Drug Abuse Patient Records regulations: The Federal rules restrict any use of the information to criminally investigate or prosecute any alcohol or drug abuse patient.[facility] HospitalIn the event this information is protected by the Federal Confidentiality of Alcohol and Drug Abuse Patient Records regulations: The Federal rules restrict any use of the information to criminally investigate or prosecute any alcohol or drug abuse patient.[facility] HospitalIn the event this information is protected by the Federal Confidentiality of Alcohol and Drug Abuse Patient Records regulations: The Federal rules restrict any use of the information to criminally investigate or prosecute any alcohol or drug abuse patient.[facility] HospitalIn the event this information is protected by the Federal Confidentiality of Alcohol and Drug Abuse Patient Records regulations: The Federal rules restrict any use of the information to criminally investigate or prosecute any alcohol or drug abuse patient.[facility] HospitalIn the event this information is protected by the Federal Confidentiality of Alcohol and Drug Abuse Patient Records regulations: The Federal rules restrict any use of the information to criminally investigate or prosecute any alcohol or drug abuse patient.[facility] HospitalIn the event this information is protected by the Federal Confidentiality of Alcohol and Drug Abuse Patient Records regulations: The Federal rules restrict any use of the information to criminally investigate or prosecute any alcohol or drug abuse patient.[facility] HospitalIn the event this information is protected by the Federal Confidentiality of Alcohol and Drug Abuse Patient Records regulations: The Federal rules restrict any use of the information to criminally investigate or prosecute any alcohol or drug abuse patient.[facility] HospitalIn the event this information is protected by the Federal Confidentiality of Alcohol and Drug Abuse Patient Records regulations: The Federal rules restrict any use of the information to criminally investigate or prosecute any alcohol or drug abuse patient.[facility] HospitalIn the event this information is protected by the Federal Confidentiality of Alcohol and Drug Abuse Patient Records regulations: The Federal rules restrict any use of the information to criminally investigate or prosecute any alcohol or drug abuse patient.[facility] HospitalIn the event this information is protected by the Federal Confidentiality of Alcohol and Drug Abuse Patient Records regulations: The Federal rules restrict any use of the information to criminally investigate or prosecute any alcohol or drug abuse patient.[facility] HospitalIn the event this information is protected by the Federal Confidentiality of Alcohol and Drug Abuse Patient Records regulations: The Federal rules restrict any use of the information to criminally investigate or prosecute any alcohol or drug abuse patient.[facility] HospitalIn the event this information is protected by the Federal Confidentiality of Alcohol and Drug Abuse Patient Records regulations: The Federal rules restrict any use of the information to criminally investigate or prosecute any alcohol or drug abuse patient.[facility] HospitalIn the event this information is protected by the Federal Confidentiality of Alcohol and Drug Abuse Patient Records regulations: The Federal rules restrict any use of the information to criminally investigate or prosecute any alcohol or drug abuse patient.[facility] HospitalIn the event this information is protected by the Federal Confidentiality of Alcohol and Drug Abuse Patient Records regulations: The Federal rules restrict any use of the information to criminally investigate or prosecute any alcohol or drug abuse patient.[facility] HospitalIn the event this information is protected by the Federal Confidentiality of Alcohol and Drug Abuse Patient Records regulations: The Federal rules restrict any use of the information to criminally investigate or prosecute any alcohol or drug abuse patient.[facility] HospitalIn the event this information is protected by the Federal Confidentiality of Alcohol and Drug Abuse Patient Records regulations: The Federal rules restrict any use of the information to criminally investigate or prosecute any alcohol or drug abuse patient.[facility] HospitalIn the event this information is protected by the Federal Confidentiality of Alcohol and Drug Abuse Patient Records regulations: The Federal rules restrict any use of the information to criminally investigate or prosecute any alcohol or drug abuse patient.[facility] HospitalIn the event this information is protected by the Federal Confidentiality of Alcohol and Drug Abuse Patient Records regulations: The Federal rules restrict any use of the information to criminally investigate or prosecute any alcohol or drug abuse patient.[facility] HospitalIn the event this information is protected by the Federal Confidentiality of Alcohol and Drug Abuse Patient Records regulations: The Federal rules restrict any use of the information to criminally investigate or prosecute any alcohol or drug abuse patient.[facility] HospitalIn the event this information is protected by the Federal Confidentiality of Alcohol and Drug Abuse Patient Records regulations: The Federal rules restrict any use of the information to criminally investigate or prosecute any alcohol or drug abuse patient.[facility] HospitalIn the event this information is protected by the Federal Confidentiality of Alcohol and Drug Abuse Patient Records regulations: The Federal rules restrict any use of the information to criminally investigate or prosecute any alcohol or drug abuse patient.[facility] HospitalIn the event this information is protected by the Federal Confidentiality of Alcohol and Drug Abuse Patient Records regulations: The Federal rules restrict any use of the information to criminally investigate or prosecute any alcohol or drug abuse patient.[facility] HospitalIn the event this information is protected by the Federal Confidentiality of Alcohol and Drug Abuse Patient Records regulations: The Federal rules restrict any use of the information to criminally investigate or prosecute any alcohol or drug abuse patient.[facility]In the event this information is protected by the Federal Confidentiality of Alcohol and Drug Abuse Patient Records regulations: The Federal rules restrict any use of the information to criminally investigate or prosecute any alcohol or drug abuse patient.[facility] HospitalIn the event this information is protected by the Federal Confidentiality of Alcohol and Drug Abuse Patient Records regulations: The Federal rules restrict any use of the information to criminally investigate or prosecute any alcohol or drug abuse patient.[facility] HospitalIn the event this information is protected by the Federal Confidentiality of Alcohol and Drug Abuse Patient Records regulations: The Federal rules restrict any use of the information to criminally investigate or prosecute any alcohol or drug abuse patient.[facility] HospitalIn the event this information is protected by the Federal Confidentiality of Alcohol and Drug Abuse Patient Records regulations: The Federal rules restrict any use of the information to criminally investigate or prosecute any alcohol or drug abuse patient.[facility] HospitalIn the event this information is protected by the Federal Confidentiality of Alcohol and Drug Abuse Patient Records regulations: The Federal rules restrict any use of the information to criminally investigate or prosecute any alcohol or drug abuse patient.[facility] HospitalIn the event this information is protected by the Federal Confidentiality of Alcohol and Drug Abuse Patient Records regulations: The Federal rules restrict any use of the information to criminally investigate or prosecute any alcohol or drug abuse patient.[facility] HospitalIn the event this information is protected by the Federal Confidentiality of Alcohol and Drug Abuse Patient Records regulations: The Federal rules restrict any use of the information to criminally investigate or prosecute any alcohol or drug abuse patient.[facility] HospitalIn the event this information is protected by the Federal Confidentiality of Alcohol and Drug Abuse Patient Records regulations: The Federal rules restrict any use of the information to criminally investigate or prosecute any alcohol or drug abuse patient.[facility] HospitalIn the event this information is protected by the Federal Confidentiality of Alcohol and Drug Abuse Patient Records regulations: The Federal rules restrict any use of the information to criminally investigate or prosecute any alcohol or drug abuse patient.[facility] HospitalIn the event this information is protected by the Federal Confidentiality of Alcohol and Drug Abuse Patient Records regulations: The Federal rules restrict any use of the information to criminally investigate or prosecute any alcohol or drug abuse patient.[facility] HospitalIn the event this information is protected by the Federal Confidentiality of Alcohol and Drug Abuse Patient Records regulations: The Federal rules restrict any use of the information to criminally investigate or prosecute any alcohol or drug abuse patient.[facility] HospitalIn the event this information is protected by the Federal Confidentiality of Alcohol and Drug Abuse Patient Records regulations: The Federal rules restrict any use of the information to criminally investigate or prosecute any alcohol or drug abuse patient.[facility] HospitalIn the event this information is protected by the Federal Confidentiality of Alcohol and Drug Abuse Patient Records regulations: The Federal rules restrict any use of the information to criminally investigate or prosecute any alcohol or drug abuse patient.[facility] HospitalIn the event this information is protected by the Federal Confidentiality of Alcohol and Drug Abuse Patient Records regulations: The Federal rules restrict any use of the information to criminally investigate or prosecute any alcohol or drug abuse patient.[facility] HospitalIn the event this information is protected by the Federal Confidentiality of Alcohol and Drug Abuse Patient Records regulations: The Federal rules restrict any use of the information to criminally investigate or prosecute any alcohol or drug abuse patient.[facility] HospitalIn the event this information is protected by the Federal Confidentiality of Alcohol and Drug Abuse Patient Records regulations: The Federal rules restrict any use of the information to criminally investigate or prosecute any alcohol or drug abuse patient.[facility] HospitalIn the event this information is protected by the Federal Confidentiality of Alcohol and Drug Abuse Patient Records regulations: The Federal rules restrict any use of the information to criminally investigate or prosecute any alcohol or drug abuse patient.[facility] HospitalIn the event this information is protected by the Federal Confidentiality of Alcohol and Drug Abuse Patient Records regulations: The Federal rules restrict any use of the information to criminally investigate or prosecute any alcohol or drug abuse patient.[facility] HospitalIn the event this information is protected by the Federal Confidentiality of Alcohol and Drug Abuse Patient Records regulations: The Federal rules restrict any use of the information to criminally investigate or prosecute any alcohol or drug abuse patient.[facility] HospitalIn the event this information is protected by the Federal Confidentiality of Alcohol and Drug Abuse Patient Records regulations: The Federal rules restrict any use of the information to criminally investigate or prosecute any alcohol or drug abuse patient.[facility] HospitalIn the event this information is protected by the Federal Confidentiality of Alcohol and Drug Abuse Patient Records regulations: The Federal rules restrict any use of the information to criminally investigate or prosecute any alcohol or drug abuse patient.[facility] HospitalIn the event this information is protected by the Federal Confidentiality of Alcohol and Drug Abuse Patient Records regulations: The Federal rules restrict any use of the information to criminally investigate or prosecute any alcohol or drug abuse patient.[facility] HospitalIn the event this information is protected by the Federal Confidentiality of Alcohol and Drug Abuse Patient Records regulations: The Federal rules restrict any use of the information to criminally investigate or prosecute any alcohol or drug abuse patient.[facility] HospitalIn the event this information is protected by the Federal Confidentiality of Alcohol and Drug Abuse Patient Records regulations: The Federal rules restrict any use of the information to criminally investigate or prosecute any alcohol or drug abuse patient.[facility] HospitalIn the event this information is protected by the Federal Confidentiality of Alcohol and Drug Abuse Patient Records regulations: The Federal rules restrict any use of the information to criminally investigate or prosecute any alcohol or drug abuse patient.[facility] HospitalIn the event this information is protected by the Federal Confidentiality of Alcohol and Drug Abuse Patient Records regulations: The Federal rules restrict any use of the information to criminally investigate or prosecute any alcohol or drug abuse patient.[facility] HospitalIn the event this information is protected by the Federal Confidentiality of Alcohol and Drug Abuse Patient Records regulations: The Federal rules restrict any use of the information to criminally investigate or prosecute any alcohol or drug abuse patient.[facility] HospitalIn the event this information is protected by the Federal Confidentiality of Alcohol and Drug Abuse Patient Records regulations: The Federal rules restrict any use of the information to criminally investigate or prosecute any alcohol or drug abuse patient.[facility] HospitalIn the event this information is protected by the Federal Confidentiality of Alcohol and Drug Abuse Patient Records regulations: The Federal rules restrict any use of the information to criminally investigate or prosecute any alcohol or drug abuse patient.[facility] HospitalIn the event this information is protected by the Federal Confidentiality of Alcohol and Drug Abuse Patient Records regulations: The Federal rules restrict any use of the information to criminally investigate or prosecute any alcohol or drug abuse patient.[facility] HospitalIn the event this information is protected by the Federal Confidentiality of Alcohol and Drug Abuse Patient Records regulations: The Federal rules restrict any use of the information to criminally investigate or prosecute any alcohol or drug abuse patient.[facility] HospitalIn the event this information is protected by the Federal Confidentiality of Alcohol and Drug Abuse Patient Records regulations: The Federal rules restrict any use of the information to criminally investigate or prosecute any alcohol or drug abuse patient.[facility] HospitalIn the event this information is protected by the Federal Confidentiality of Alcohol and Drug Abuse Patient Records regulations: The Federal rules restrict any use of the information to criminally investigate or prosecute any alcohol or drug abuse patient.[facility] HospitalIn the event this information is protected by the Federal Confidentiality of Alcohol and Drug Abuse Patient Records regulations: The Federal rules restrict any use of the information to criminally investigate or prosecute any alcohol or drug abuse patient.[facility] HospitalIn the event this information is protected by the Federal Confidentiality of Alcohol and Drug Abuse Patient Records regulations: The Federal rules restrict any use of the information to criminally investigate or prosecute any alcohol or drug abuse patient.[facility] HospitalIn the event this information is protected by the Federal Confidentiality of Alcohol and Drug Abuse Patient Records regulations: The Federal rules restrict any use of the information to criminally investigate or prosecute any alcohol or drug abuse patient.[facility] HospitalIn the event this information is protected by the Federal Confidentiality of Alcohol and Drug Abuse Patient Records regulations: The Federal rules restrict any use of the information to criminally investigate or prosecute any alcohol or drug abuse patient.[facility] HospitalIn the event this information is protected by the Federal Confidentiality of Alcohol and Drug Abuse Patient Records regulations: The Federal rules restrict any use of the information to criminally investigate or prosecute any alcohol or drug abuse patient.[facility] HospitalIn the event this information is protected by the Federal Confidentiality of Alcohol and Drug Abuse Patient Records regulations: The Federal rules restrict any use of the information to criminally investigate or prosecute any alcohol or drug abuse patient.[facility] HospitalIn the event this information is protected by the Federal Confidentiality of Alcohol and Drug Abuse Patient Records regulations: The Federal rules restrict any use of the information to criminally investigate or prosecute any alcohol or drug abuse patient.[facility] HospitalIn the event this information is protected by the Federal Confidentiality of Alcohol and Drug Abuse Patient Records regulations: The Federal rules restrict any use of the information to criminally investigate or prosecute any alcohol or drug abuse patient.[facility] HospitalIn the event this information is protected by the Federal Confidentiality of Alcohol and Drug Abuse Patient Records regulations: The Federal rules restrict any use of the information to criminally investigate or prosecute any alcohol or drug abuse patient.[facility] HospitalIn the event this information is protected by the Federal Confidentiality of Alcohol and Drug Abuse Patient Records regulations: The Federal rules restrict any use of the information to criminally investigate or prosecute any alcohol or drug abuse patient.[facility] HospitalIn the event this information is protected by the Federal Confidentiality of Alcohol and Drug Abuse Patient Records regulations: The Federal rules restrict any use of the information to criminally investigate or prosecute any alcohol or drug abuse patient.[facility] Reason for Visit (unrecogniz ed section and content) Reason Comments Established Patient Specialty Diagnoses / Procedures Referred By Contac t Referred To Contact Diagnoses Prostate cancer (HCC) Procedures LEUPROLIDE ACETATE SUSPNSION Johan Payne MD [address] [place] [address] Phone: tel: Hematology/Oncology [address] [place] [address] Phone: tel: fax: Referral ID Status Reason Start Date Expiration Date V isits Requested Visits Authorized [id number] Authorized 02/13/2024 05/26/2025 99 99 Reason Comments Orders Reason Onset Date Comments Refill Request 09/18/2021 Reason Comments Prescription Refills Reason Comments 5 month follow-up Reason Comments F/U 6 months Reason Comments 6 week follow up - blood pressure Reason Onset Date Comments Refill Request 09/02/2022 Reason Onset Date Comments Refill Request 09/27/2022 Reason Comments F/U 6 months Specialty Diagnoses / Procedures Referred By Contac t Referred To Contact Internal Medicine / INTERNAL MEDICINE Diagnoses Follow-up exam 6 month follow-up Procedures OFFICE/OUTPATIENT ESTABLISHED MOD MDM 30-39 MIN 4C EST Cody Carrington MD [address] [place] [id number] Cody Carrington MD [address] [place] [phone] Referral ID Status Reason Start Date Expiration Date Visits Re quested Visits Authorized [id number] Closed 01/03/2023 05/04/2023 1 1 Reason Comments Results Reason Comments Consult Urinary Frequency LUTS Specialty Diagnoses / Procedures Referred By Contac t Referred To Contact Urology / UROLOGY Diagnoses Urinary frequency Dx: Urinary frequency [R35.0]; Lower urinary tract symptoms (LUTS) [R39.9] Instr: Reason for Consultation: Lower urinary tract symptoms. Procedures OFFICE/OUTPATIENT NEW MODERATE MDM 45-59 MINUTES NEW UROL Cody Carrington MD [address] [place] [phone] Robert Toscano PA-C [address] [place] [address] Referral ID Status Reason Start Date Expiration Date Visits Re quested Visits Authorized [id number] Closed 02/04/2023 05/04/2023 1 1 Reason Onset Date Comments Refill Request 02/05/2023 Reason Comments Results Reason Comments Dizziness Reason Comments Dizziness Reason Comments Hospital F/U Reason Comments 4 week follow-up Specialty Diagnoses / Procedures Referred By Contac t Referred To Contact Internal Medicine / INTERNAL MEDICINE Diagnoses 6 mth f/u Procedures 4C EST Cody Carrington MD [address] [place] [id number] Cody Carrington MD [address] [place] [id number] Referral ID Status Reason Start Date Expiration Date V isits Requested Visits Authorized [id number] Pending Review 07/04/2023 10/02/2023 1 1 Reason Comments Appointment Reason Comments Refill Request Reason Comments New Patient AFIB Reason Comments Yearly Exam Reason Comments Procedure Specialty Diagnoses / Procedures Referred By Contac t Referred To Contact CT IMAGING Diagnoses Constipation, unspecified constipation type Procedures CT COLONOGRAPHY SCREENING WO IVCON CT COLONOGRPHY DX IMAGE POSTPROCESS W/O CONTRAST Cody Carrington MD [address] [place] [address] [facility] [place] [phone] Referral ID Status Reason Start Date Expiration Date V isits Requested Visits Authorized [id number] Closed Auto-Generate d Referral 11/19/2023 05/04/2024 1 1 Reason Comments Consult rectal mass Specialty Diagnoses / Procedures Referred By Contac t Referred To Contact General Surgery Diagnoses Rectal mass Procedures CONSULT TO GENERAL SURGERY OFFICE/OUTPATIENT [facility] 60 [place] [address] [place] [id number] Referral ID Status Reason Start Date Expiration Date V isits Requested Visits Authorized [id number] Closed PCP Requested Referral 12/05/2023 12/03/2024 1 1 Reason Comments Results Reason Onset Date Comments Refill Request 12/10/2023 Reason Comments Established Patient Prostate issues foll ow up Reason Comments New Patient Evaluation Specialty Diagnoses / Procedures Referred By Contac t Referred To Contact Diagnoses Rectal mass Procedures CONSULT TO HEMATOLOGY/ONCOLOGY OFFICE/OUTPATIENT [facility] 60 MINUTES Cody Carrington MD [facility] [place] [address] Referral ID Status Reason Start Date Expiration Date V isits Requested Visits Authorized [id number] Closed PCP Requested Referral 12/04/2023 12/03/2024 1 1 Reason Onset Date Comments Refill Request 01/13/2024 Reason Comments Elevated PSA Prostate Needle Biop sy Reason Comments Established Patient Reason Comments Benefits Investigation Reason Comments Radiology NM Specialty Diagnoses / Procedures Referred By Contac t Referred To Contact MOLECULAR & FUNCTIONAL IMAGING Diagnoses Retroperitoneal lymphadenopathy Prostate cancer (HCC) Procedures NM BONE WHOLE BODY BONE &/JOINT [place] [address] [place] [address] Molecular & Functional Imaging [address] [place] [address] Referral ID Status Reason Start Date Expiration Date V isits Requested Visits Authorized [id number] Closed Auto-Generate d Referral 05/05/2023 05/04/2024 1 1 Reason Comments Patient Question note to return to wo rk and FMLA paperwork Reason Onset Date Comments Fatigue Immunizations 02/26/2024 Flu vaccination Reason Comments Imm/Inj Specialty Diagnoses / Procedures Referred By Contac t Referred To Contact Diagnoses Prostate cancer (HCC) Procedures LEUPR[place]IDE [place] [address] [id number] Nirmal [facility] [address] [place] [address] Referral ID Status Reason Start Date Expiration Date V isits Requested Visits Authorized [id number] Authorized 02/13/2024 05/19/2024 4 4 Reason Comments Follow Up Pt is here for his b iopsy results of the prostate Specialty Diagnoses / Procedures Referred By Fideliaac t Referred To Contact CT IMAGING Diagnoses Hydronephrosis, unspecified hydronephrosis type Procedures CT ABD/PEL WO IVCON CT ABD & PELVIS W/O CONTRAST Devin Cortes MD [id number] [place] [address] Referral ID Status Reason Start Date Expiration Date Visits Requested Visits Authorized [id number] Authorized Auto-Generat ed Referral 05/04/2024 3 3 Reason Onset Date Comments Orders 03/01/2024 Reason Comments Hydronephrosis Reason Comments 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 Follow Up Reason Comments Patient Education Reason Onset Date Comments Consult Simulation Request Form 03/01/2024 Specialty Diagnoses / Procedures Referred By Contac t Referred To Contact Radiation Oncology Diagnoses Prostate cancer (HCC) Procedures RAD/ONC CONSULT OFFICE/OUTPATIENT [facility] 60 [place] [address] [place] [address] Referral ID Status Reason Start Date Expiration Date V isits Requested Visits Authorized [id number] Closed PCP Requested Referral 02/27/2024 02/26/2025 1 1 Reason Onset Date Comments Orders 03/08/2024 Follow Up 03/08/2024 Reason Comments Radiotherapy On-treatment Visit Reason Comments Voiding Trial Cath removal Reason Comments Voiding Trial Reason Comments Hydronephrosis Bilateral Urinary Retention Voiding trial - cath pulled by patient at 8:30am. Patient has not voided at all. PVR 134 ml. Reason Comments Orders lab orders Reason Comments Patient Question Reason Comments Prostate Cancer 3 week follow up Reason Comments Recheck Reason Comments Patient Update Reason Comments future apt/patient update Reason Comments Hospital F/U H d/c UTI Reason Comments UTI Reason Comments Head Congestion Cough, fatigue x1 da y Reason Comments Patient Request Reason Onset Date Comments SPP Oral Oncology/hematology - Treatment Referra l 07/09/2024 Xtandi 80 mg Insurance Authorization 07/09/2024 PA Pendi ng Reason Onset Date Comments Refill Request 07/12/2024 Reason Comments Cystoscopy-1 PSA 07/05/[address] 06/21/24. Reason Comments Radiology US Specialty Diagnoses / Procedures Referred By Tate t Referred To Contact [facility] Diagnoses Bilateral hydronephrosis Procedures US KIDNEY/BLADDER US RETROPERITONEAL REAL TIME W/IMAGE COMPLETE Radha Larsen MD [address] [place] [address] Phone: tel: fax: [place] [address] Referral ID Status Reason Start Date Expiration Date V isits Requested Visits Authorized [id number] Closed Auto-Generate d Referral 07/15/2024 08/14/2025 1 1 Reason Onset Date Comments Refill Request 07/26/2024 Reason Onset Date Comments Refill Request 07/27/2024 Reason Onset Date Comments Refill Request 08/18/2024 Reason Comments Care Coordination ORAL ANTI-CANCER AGE NTS EDUCATION-Xtandi Reason Comments Care Coordination Reason Onset Date Comments Refill Request 09/07/2024 Reason Onset Date Comments Refill Request 11/08/2024 Reason Comments Medicare Wellness Exam 2 month follow-up Specialty Diagnoses / Procedures Referred By Tate t Referred To Contact Internal Medicine / INTERNAL MEDICINE Diagnoses Wellness examination Annual Medicare Wellness w/2 month follow-up Procedures PC EST Cody Guzman MD [address] [place] [address] Phone: tel: fax: Cody Carrington MD [address] [place] [address] Phone: tel: fax: Referral ID Status Reason Start Date Expiration Date V isits Requested Visits Authorized [id number] Closed Patient Cleared - INN Insurance Found 01/04/2025 04/04/2025 1 0 Care Teams (unrecognized sec tion and content) Title I Coordinator Relationship Specialty Start Date End Date Cody Carrington MD [address] [place] [address] PCP - General Internal Medicine 03/08/14 Title I Coordinator Relationship Specialty Start Date End Date Cody Carrington MD [address] [place] [address] PCP - General Internal Medicine 03/08/14 Title I Coordinator Relationship Specialty Start Date End Date Cody Carrington MD [address] [place] [address] PCP - General Internal Medicine 03/08/14 Title I Coordinator Relationship Specialty Start Date End Date Cody Carrington MD [address] [place] [address] PCP - General Internal Medicine 03/08/14 Title I Coordinator Relationship Specialty Start Date End Date Cody Carrington MD [address] [place] [address] PCP - General Internal Medicine 03/08/14 Title I Coordinator Relationship Specialty Start Date End Date Cody Carrington MD [address] [place] [address] PCP - General Internal Medicine 03/08/14 Title I Coordinator Relationship Specialty Start Date End Date Cody Carrington MD [address] [place] [address] PCP - General Internal Medicine 03/08/14 Title I Coordinator Relationship Specialty Start Date End Date Cody Carrington MD [address] [place] [address] PCP - General Internal Medicine 03/08/14 Title I Coordinator Relationship Specialty Start Date End Date Cody Carrington MD [address] [place] [address] PCP - General Internal Medicine 03/08/14 Title I Coordinator Relationship Specialty Start Date End Date Cody Carrington MD [address] [place] [address] PCP - General Internal Medicine 03/08/14 Title I Coordinator Relationship Specialty Start Date End Date Cody Carrington MD [address] [place] [address] PCP - General Internal Medicine 03/08/14 Title I Coordinator Relationship Specialty Start Date End Date Cody Carrington MD [address] [place] [address] PCP - General Internal Medicine 03/08/14 Title I Coordinator Relationship Specialty Start Date End Date Cody Carrington MD [address] [place] [address] PCP - General Internal Medicine 03/08/14 Title I Coordinator Relationship Specialty Start Date End Date Cody Carrington MD [address] [place] [address] PCP - General Internal Medicine 03/08/14 Team Status: Active Member Role Status Dates Dr. Cody Carrington MD Primary Care Provider Active Team Status: Active Member Role Status Dates Dr. Cody Carrington MD Primary Care Provider Active Dr. Zoë Sparks , Emergency Provider Active Dr. Lor Aguilar , DO Admit Provider, Att ending Provider, Other Provider Active Team Status: Active Member Role Status Dates Dr. Cody Carrington MD Primary Care Provider Active Dr. Zoë Sparks , DO Emergency Provider Active Dr. Lor Aguilar , DO Admit Provider, Attending Provide r Active Team Status: Active Member Role Status Dates Dr. Cody Carrington MD Primary Care Provider Active Dr. Mitra Ardon MD Attending Provider Activ e Team Status: Inactive Member Role Status Dates Dr. Cody Carrington MD Primary Care Provider Active Dr. Zëo Sparks , DO Emergency Provider Active Dr. Lor Aguilar , DO Admit Provider, Other Provider Ac tive Dr. Valentina Raza , DO Attending Provider Active Title I Coordinator Relationship Specialty Start Date End Date Cody Carrington MD [address] [place], [place] [address] PCP - General Internal Medicine 03/08/14 Title I Coordinator Relationship Specialty Start Date End Date Cody Carrington MD [address] [place], [place] [address]381 PCP - General Internal Medicine 03/08/14 Title I Coordinator Relationship Specialty Start Date End Date Cody Carrington MD [address] [place], [place] [address] PCP - General Internal Medicine 03/08/14 Title I Coordinator Relationship Specialty Start Date End Date Cody Carrington MD [address] [place], [place] [address] PCP - General Internal Medicine 03/08/14 Title I Coordinator Relationship Specialty Start Date End Date Cody Carrington MD [address] [place], [place] [address] PCP - General Internal Medicine 03/08/14 Sruthi Larkin [address] [place] [address] Specialty Medical Sonographer Cardiology 10/21/23 Title I Coordinator Relationship Specialty Start Date End Date Cody Carrington MD [address] [facility] [place] [address] PCP - General Internal Medicine 03/08/14 Sruthi Larkin [address] [place] [address] Specialty Medical Sonographer Cardiology 10/21/23 Title I Coordinator Relationship Specialty Start Date End Date Cody Carrington MD [address] [facility] [place] [address] PCP - General Internal Medicine 03/08/14 Sruthi Larkin [address] [place] [address] Specialty Medical Sonographer Cardiology 10/21/23 Title I Coordinator Relationship Specialty Start Date End Date Cody Carrington MD [address] [facility] [place] [address] PCP - General Internal Medicine 03/08/14 Sruthi Larkin [address] [place] [address] Specialty Medical Sonographer Cardiology 10/21/23 Title I Coordinator Relationship Specialty Start Date End Date Cody Carrington MD [address] [facility] [place] [address] PCP - General Internal Medicine 03/08/14 Surthi Larkin [address] [place] [address] Specialty Medical Sonographer Cardiology 10/21/23 Title I Coordinator Relationship Specialty Start Date End Date Cody Carrington MD [address] [facility] [place] [address] PCP - General Internal Medicine 03/08/14 Sruthi Larkin [address] [place] [address] [address] Specialty Medical Sonographer Cardiology 10/21/23 Title I Coordinator Relationship Specialty Start Date End Date Cody Carrington MD [address] [facility] [place] [address] PCP - General Internal Medicine 03/08/14 Sruthi Larkin [address] [place] [place] [address] [address] Specialty Medical Sonographer Cardiology 10/21/23 Title I Coordinator Relationship Specialty Start Date End Date Cody Carrington MD [address] [facility] [place] [address] PCP - General Internal Medicine 03/08/[address]ikn [address] [place] [address] [place] [address] Specialty Medical Sonographer Cardiology 10/21/23 Title I Coordinator Relationship Specialty Start Date End Date Cody Carrington MD [address] [facility] [place] [address] PCP - General Internal Medicine 03/08/14 Sruthi Larkin [address] [place] [address] [address] Specialty Medical Sonographer Cardiology 10/21/23 Title I Coordinator Relationship Specialty Start Date End Date Cody Carrington MD [address] [place] [address] PCP - General Internal Medicine 03/08/14 Sruthi Larkin [address] [place] [address] Specialty Medical Sonographer Cardiology 10/21/23 Title I Coordinator Relationship Specialty Start Date End Date Cody Carrington MD [address] [place] [address] PCP - General Internal Medicine 03/08/14 Sruthi Larkin [address] [place] [address], [place] [address] Specialty Medical Sonographer Cardiology 10/21/23 Title I Coordinator Relationship Specialty Start Date End Date Cody Carrington MD [address] [place] [address] PCP - General Internal Medicine 03/08/14 Sruthi Larkin [address] [place] [address] Specialty Medical Sonographer Cardiology 10/21/23 Title I Coordinator Relationship Specialty Start Date End Date Cody Carrington MD [address] [place] [address] PCP - General Internal Medicine 03/08/14 Sruthi Larkin [address] [place] [address] Specialty Medical Sonographer Cardiology 10/21/23 Title I Coordinator Relationship Specialty Start Date End Date Cody Carrington MD [address] [place] [address] PCP - General Internal Medicine 03/08/14 Sruthi Larkin [address] [place] [address] Specialty Medical Sonographer Cardiology 10/21/23 Title I Coordinator Relationship Specialty Start Date End Date Cody Carrington MD [address] [place] [address] PCP - General Internal Medicine 03/08/14 Sruthi Larkin [address] [place] [address], [place] [address] Specialty Medical Sonographer Cardiology 10/21/23 Title I Coordinator Relationship Specialty Start Date End Date Cody Carrington MD [address] [place] [address] PCP - General Internal Medicine 03/08/14 Sruthi Larkin [address] [place] [address] Specialty Medical Sonographer Cardiology 10/21/23 Johan Payne MD [address] [place] [address] Hematology/Oncology 02/16/24 Title I Coordinator Relationship Specialty Start Date End Date Cody Carrington MD [address] [place] [address] PCP - General Internal Medicine 03/08/14 Sruthi Larkin [address] [place] [address] Specialty Medical Sonographer Cardiology 10/21/23 Johan Payne MD [address] [place] [address] Hematology/Oncology 02/16/24 Title I Coordinator Relationship Specialty Start Date End Date Cody Carrington MD [address] [place] [address] PCP - General Internal Medicine 03/08/14 Sruthi Larkin [address] [place] [address] Specialty Medical Sonographer Cardiology 10/21/23 Johan Payne MD [address] [place] [address] Hematology/Oncology 02/16/24 Title I Coordinator Relationship Specialty Start Date End Date Cody Carrington MD [address] [place] [address] PCP - General Internal Medicine 03/08/14 Sruthi Larkin [address] [place] [address] Specialty Medical Sonographer Cardiology 10/21/23 Johan Payne MD [address] [place] [address] Hematology/Oncology 02/16/24 Title I Coordinator Relationship Specialty Start Date End Date Cody Carrington MD [address] [place] [address] PCP - General Internal Medicine 03/08/14 Sruthi Larkin [address] [place] [address] Specialty Medical Sonographer Cardiology 10/21/23 Johan Payne MD [address] [place] [address] Hematology/Oncology 02/16/24 Title I Coordinator Relationship Specialty Start Date End Date Cody Carrington MD [address] [facility] [place] [address] PCP - General Internal Medicine 03/08/14 Sruthi Larkin [address] [place] [address] Specialty Medical Sonographer Cardiology 10/21/23 Johan Payne MD [address] [place] [address] Hematology/Oncology 02/16/24 Title I Coordinator Relationship Specialty Start Date End Date Cody Carrington MD [address] [facility] [place] [address] PCP - General Internal Medicine 03/08/14 Sruthi Larkin [address] [place] [place] [address] [address] Specialty Medical Sonographer Cardiology 10/21/23 Johan Payne MD [address] [place] [address] Hematology/Oncology 02/16/24 Title I Coordinator Relationship Specialty Start Date End Date Cody Carrington MD [address] [facility] [place] [address] PCP - General Internal Medicine 03/08/14 Sruthi Larkin [address] [place] [address] Specialty Medical Sonographer Cardiology 10/21/23 Johan Payne MD [address] [place] [address] Hematology/Oncology 02/16/24 Title I Coordinator Relationship Specialty Start Date End Date Cody Carrington MD [address] [facility] [place] [address] PCP - General Internal Medicine 03/08/14 Sruthi Larkin [address] [place] [place] [address] [address] Specialty Medical Sonographer Cardiology 10/21/23 Johan Payne MD [address] [place] [address] Hematology/Oncology 02/16/24 Title I Coordinator Relationship Specialty Start Date End Date Cody Carrington MD [address] [facility] [place] [address] PCP - General Internal Medicine 03/08/14 Sruthi Larkin [address] [place] [address] [address] Specialty Medical Sonographer Cardiology 10/21/23 Johan Payne MD [address] [place] [address] Hematology/Oncology 02/16/24 Title I Coordinator Relationship Specialty Start Date End Date Cody Carrington MD [address] [place] [address] PCP - General Internal Medicine 03/08/14 Sruthi Larkin [address] [place] [address] Specialty Medical Sonographer Cardiology 10/21/23 Johan Payne MD [address] [place] [address] Hematology/Oncology 02/16/24 Title I Coordinator Relationship Specialty Start Date End Date Cody Carrington MD [address] [place] [address] PCP - General Internal Medicine 03/08/14 Sruthi Larkin [address] [place] [address] Specialty Medical Sonographer Cardiology 10/21/23 Johan Payne MD [address] [place] [address] Hematology/Oncology 02/16/24 Title I Coordinator Relationship Specialty Start Date End Date Cody Carrington MD [address] [place] [address] PCP - General Internal Medicine 03/08/14 Sruthi Larkin [address] [place] [address] Specialty Medical Sonographer Cardiology 10/21/23 Johan Payne MD [address] [place] [address] Hematology/Oncology 02/16/24 Title I Coordinator Relationship Specialty Start Date End Date Cody Carrington MD [address] [place] [address] PCP - General Internal Medicine 03/08/14 Sruthi Larkin [address] [place] [address] Specialty Medical Sonographer Cardiology 10/21/23 Johan Payne MD [address] [place] [address] Hematology/Oncology 02/16/24 Title I Coordinator Relationship Specialty Start Date End Date Cody Carrington MD [address] [facility] [place] [address] PCP - General Internal Medicine 03/08/14 Sruthi Larkin [address] [place] [address] Specialty Medical Sonographer Cardiology 10/21/23 Johan Payne MD [address] [place] [address] Hematology/Oncology 02/16/24 Title I Coordinator Relationship Specialty Start Date End Date Cody Carrington MD [address] [place] [address] PCP - General Internal Medicine 03/08/14 Sruthi Larkin [address] [place] [address] Specialty Medical Sonographer Cardiology 10/21/23 Johan Payne MD [address] [place] [address] Hematology/Oncology 02/16/24 Title I Coordinator Relationship Specialty Start Date End Date Cody Carrington MD [address] [place] [address] PCP - General Internal Medicine 03/08/14 Sruthi Larkin [address] [place] [address] Specialty Medical Sonographer Cardiology 10/21/23 Johan Payne MD [address] [place] [address] Hematology/Oncology 02/16/24 Title I Coordinator Relationship Specialty Start Date End Date Cody Carrington MD [address] [facility] [place] [address] PCP - General Internal Medicine 03/08/14 Sruhti Larkin [address] [place] [address] Specialty Medical Sonographer Cardiology 10/21/23 Johan Payne MD [address] [place] [address] Hematology/Oncology 02/16/24 Title I Coordinator Relationship Specialty Start Date End Date Cody Carrington MD [address] [facility] [place] [address] PCP - General Internal Medicine 03/08/14 Sruthi Larkin [address] [place] [address] Specialty Medical Sonographer Cardiology 10/21/23 Johan Payne MD [address] [place] [address] Hematology/Oncology 02/16/24 Title I Coordinator Relationship Specialty Start Date End Date Cody Carrington MD [address] [place] [address] PCP - General Internal Medicine 03/08/14 Sruthi Larkin [address] [place] [address] Specialty Medical Sonographer Cardiology 10/21/23 Johan Payne MD [address] [place] [address] Hematology/Oncology 02/16/24 Title I Coordinator Relationship Specialty Start Date End Date Cody Carrington MD [address] [facility] [place] [address] PCP - General Internal Medicine 03/08/14 Sruthi Larkin [address] [place] [address] Specialty Medical Sonographer Cardiology 10/21/23 Johan Payne MD [address] [place] [address] Hematology/Oncology 02/16/24 Title I Coordinator Relationship Specialty Start Date End Date Cody Carrington MD [address] [facility] [place] [address] PCP - General Internal Medicine 03/08/14 Sruthi Larkin [address] [place] [address] Specialty Medical Sonographer Cardiology 10/21/23 Johan Payne MD [address] [place] [address] Hematology/Oncology 02/16/24 Title I Coordinator Relationship Specialty Start Date End Date Cody Carrington MD [address] [facility] [place] [address] PCP - General Internal Medicine 03/08/14 Sruthi Larkin [address] [place] [address] Specialty Medical Sonographer Cardiology 10/21/23 Johan Payne MD [address] [place] [address] Hematology/Oncology 02/16/24 Title I Coordinator Relationship Specialty Start Date End Date Cody Carrington MD [address] [facility] [place] [address] PCP - General Internal Medicine 03/08/14 Sruthi Larkin [address] [place] [place] [address] Specialty Medical Sonographer Cardiology 10/21/23 Johan Payne MD [address] [place] [address] Hematology/Oncology 02/16/24 Title I Coordinator Relationship Specialty Start Date End Date Cody Carrington MD [address] [facility] [place] [address] PCP - General Internal Medicine 03/08/14 Sruthi Larkin [address] [place] [address] Specialty Medical Sonographer Cardiology 10/21/23 Johan Payne MD [address] [place] [address] Hematology/Oncology 02/16/24 Leela Drake, DISTRIBUTION SPEC.SOLVENT STATION ATTENDANT [address] [place] [address] [facility] Internal Medicine 04/12/24 Title I Coordinator Relationship Specialty Start Date End Date Cody Carrington MD [address] [place] [address] PCP - General Internal Medicine 03/08/14 Sruthi Larkin [address] [place] [address] Specialty Medical Sonographer Cardiology 10/21/23 Johan Payne MD [address] [place] [address] Hematology/Oncology 02/16/24 Leela Drake, DISTRIBUTION SPEC.SOLVENT STATION ATTENDANT [address] [place] [address] Baker Past[facility] Internal Medicine 04/12/24 Title I Coordinator Relationship Specialty Start Date End Date Cody Carrington MD [address] [place] [address] PCP - General Internal Medicine 03/08/14 Sruthi Larkin [address] [place] [address] Specialty Medical Sonographer Cardiology 10/21/23 Johan Payne MD [address] [place] [address] Hematology/Oncology 02/16/24 Leela Drake, DISTRIBUTION SPEC.SOLVENT STATION ATTENDANT [address] [place] [address] Baker Pastry Internal Medicine 04/12/24 Title I Coordinator Relationship Specialty Start Date End Date Cody Carrington MD [address] [place] [address] PCP - General Internal Medicine 03/08/14 Sruthi Larkin [address] [facility] [address] [place] [address] [address] Specialty Medical Sonographer Cardiology 10/21/23 Johan Payne MD [address] [place] [address] Hematology/Oncology 02/16/24 Leela Drake, DISTRIBUTION SPEC.SOLVENT STATION ATTENDANT [address] [place] [address] Baker Past[facility] Internal Medicine 04/12/24 Title I Coordinator Relationship Specialty Start Date End Date Cody Carrington MD [address] [place] [address] PCP - General Internal Medicine 03/08/14 Sruthi Larkin [address] [place] [address] Specialty Medical Sonographer Cardiology 10/21/23 Johan Payne MD [address] [place] [address] Hematology/Oncology 02/16/24 Leela Drake, DISTRIBUTION SPEC.SOLVENT STATION ATTENDANT [address] [facility] [place] [address] Baker Pastry Internal Medicine 04/12/24 Title I Coordinator Relationship Specialty Start Date End Date Cody Carrington MD [address] [place] [address] PCP - General Internal Medicine 03/08/14 Sruthi Larkin [address] [place] [address] Specialty Medical Sonographer Cardiology 10/21/23 Johan Payne MD [address] [place] [address] Hematology/Oncology 02/16/24 Leela Drake, DISTRIBUTION SPEC.SOLVENT STATION ATTENDANT [address] [place] [address] Baker [facility] Internal Medicine 04/12/24 Title I Coordinator Relationship Specialty Start Date End Date Cody Carrington MD [address] [place] [address] PCP - General Internal Medicine 03/08/14 Sruthi Larkin [address] [place] [address] Specialty Medical Sonographer Cardiology 10/21/23 Johan Payne MD [address] [place] [address] Hematology/Oncology 02/16/24 Leela Drake, DISTRIBUTION SPEC.SOLVENT STATION ATTENDANT [address] [place] [address] [facility] Internal Medicine 04/12/24 Title I Coordinator Relationship Specialty Start Date End Date Cody Carrington MD [address] [place] [address] PCP - General Internal Medicine 03/08/14 Sruthi Larkin [address] [place] [address] Specialty Medical Sonographer Cardiology 10/21/23 Johan Payne MD [address] [place] [address] Hematology/Oncology 02/16/24 Leela Drake, DISTRIBUTION SPEC.SOLVENT STATION ATTENDANT [address] [place] [address] [facility] Internal Medicine 04/12/24 Title I Coordinator Relationship Specialty Start Date End Date Cody Carrington MD [address] [place] [address] PCP - General Internal Medicine 03/08/14 Sruthi Larkin [address] [place] [address] Specialty Medical Sonographer Cardiology 10/21/23 Johan Payne MD [address] [place] [address] Hematology/Oncology 02/16/24 Leela Drake, DISTRIBUTION SPEC.SOLVENT STATION ATTENDANT [address] [facility] [place] [address] [facility] Internal Medicine 04/12/24 Title I Coordinator Relationship Specialty Start Date End Date Cody Carrington MD [address] [facility] [place] [address] PCP - General Internal Medicine 03/08/14 Sruthi Larkin [address] [place] [address] Specialty Medical Sonographer Cardiology 10/21/23 Johan Payne MD [address] [place] [address] Hematology/Oncology 02/16/24 Leela Drake, DISTRIBUTION SPEC.SOLVENT STATION ATTENDANT [address] [facility] [place] [address] [facility] Internal Medicine 04/12/24 Title I Coordinator Relationship Specialty Start Date End Date Cody Carrington MD [address] [facility] [place] [address] PCP - General Internal Medicine 03/08/14 Sruthi Larkin [address] [place] [address] Specialty Medical Sonographer Cardiology 10/21/23 Johan Payne MD [address] [place] [place] [address] Hematology/Oncology 02/16/24 Leela Drake, DISTRIBUTION SPEC.SOLVENT STATION ATTENDANT [address] [place] [address] [facility] Internal Medicine 04/12/24 Title I Coordinator Relationship Specialty Start Date End Date Cody Carrington MD [address] [place] [address] PCP - General Internal Medicine 03/08/14 Sruthi Larkin [address] [place] [address] Specialty Medical Sonographer Cardiology 10/21/23 Johan Payne MD [address] [place] [address] Hematology/Oncology 02/16/24 Leela Drake, DISTRIBUTION SPEC.SOLVENT STATION ATTENDANT [address] [place] [address] [facility] Internal Medicine 04/12/24 Title I Coordinator Relationship Specialty Start Date End Date Cody Carrington MD [address] [place] [address] PCP - General Internal Medicine 03/08/14 Sruthi Larkin [address] [place] [address] Specialty Medical Sonographer Cardiology 10/21/23 Johan Payne MD [address] [place] [address] Hematology/Oncology 02/16/24 Leela Drake, DISTRIBUTION SPEC.SOLVENT STATION ATTENDANT [address] [place] [address] [facility] Internal Medicine 04/12/24 Title I Coordinator Relationship Specialty Start Date End Date Cody Carrington MD [address] [facility] [place] [address] PCP - General Internal Medicine 03/08/14 Sruthi Larkin [address] [place] [address] Specialty Medical Sonographer Cardiology 10/21/23 Johan Payne MD [address] [place] [address] Hematology/Oncology 02/16/24 Leela Drake, DISTRIBUTION SPEC.SOLVENT STATION ATTENDANT [address] [facility] [place] [address] [facility] Internal Medicine 04/12/24 Title I Coordinator Relationship Specialty Start Date End Date Cody Carrington MD [address] [facility] [place] [address] PCP - General Internal Medicine 03/08/14 Sruthi Larkin [address] [facility] [place] [address] Specialty Medical Sonographer Cardiology 10/21/23 Johan Payne MD [address] [place] [address] Hematology/Oncology 02/16/24 Leela Drake, DISTRIBUTION SPEC.SOLVENT STATION ATTENDANT [address] [facility] [place] [address] Baker Past[facility] Internal Medicine 04/12/24 Title I Coordinator Relationship Specialty Start Date End Date Cody Carrington MD [address] [place] [address] PCP - General Internal Medicine 03/08/14 Sruthi Larkin [address] [place] [address] Specialty Medical Sonographer Cardiology 10/21/23 Johan Payne MD [address] [place] [address] Hematology/Oncology 02/16/24 Leela Drake, DISTRIBUTION SPEC.SOLVENT STATION ATTENDANT [address] [place] [address] [facility] Past[facility] Internal Medicine 04/12/24 Title I Coordinator Relationship Specialty Start Date End Date Cody Carrington MD [address] [place] [address] PCP - General Internal Medicine 03/08/14 Sruthi Larkin [address] [facility] [address] [place] [address] Specialty Medical Sonographer Cardiology 10/21/23 Johan Payne MD [address] [place] [address] Hematology/Oncology 02/16/24 Leela Drake, DISTRIBUTION SPEC.SOLVENT STATION ATTENDANT [address] [place] [address] [facility] Internal Medicine 04/12/24 Title I Coordinator Relationship Specialty Start Date End Date Cody Carrington MD [address] [place] [address] PCP - General Internal Medicine 03/08/14 Sruthi Larkin [address] [place] [address] Specialty Medical Sonographer Cardiology 10/21/23 Johan Payne MD [address] [place] [address] Hematology/Oncology 02/16/24 Leela Drake, DISTRIBUTION SPEC.SOLVENT STATION ATTENDANT [address] [facility] [place] [address] Baker Pastry Internal Medicine 04/12/24 Title I Coordinator Relationship Specialty Start Date End Date Cody Carrington MD [address] [facility] [place] [address] PCP - General Internal Medicine 03/08/14 Sruthi Larkin [address] [place] [address] Specialty Medical Sonographer Cardiology 10/21/23 Johan Payne MD [address] [place] [address] Hematology/Oncology 02/16/24 Leela Drake, DISTRIBUTION SPEC.SOLVENT STATION ATTENDANT [address] [facility] [place] [address] Baker Past[facility] Internal Medicine 04/12/24 Title I Coordinator Relationship Specialty Start Date End Date Cody Carrington MD [address] [facility] [place] [address] PCP - General Internal Medicine 03/08/14 Sruthi Larkin [address] [place] [address] Specialty Medical Sonographer Cardiology 10/21/23 Johan Payne MD [address] [place] [address] Hematology/Oncology 02/16/24 Leela Drake, DISTRIBUTION SPEC.SOLVENT STATION ATTENDANT [address] [place] [address] [facility] Past[facility] Internal Medicine 04/12/24 Title I Coordinator Relationship Specialty Start Date End Date Cody Carrington MD [address] [place] [address] PCP - General Internal Medicine 03/08/14 Sruthi Larkin [address] [place] [address] Specialty Medical Sonographer Cardiology 10/21/23 Johan Payne MD [address] [place] [address] Hematology/Oncology 02/16/24 Leela Drake, DISTRIBUTION SPEC.SOLVENT STATION ATTENDANT [address] [place] [address] Baker Pastry Internal Medicine 04/12/24 Title I Coordinator Relationship Specialty Start Date End Date Cody Carrington MD [address] [place] [address] PCP - General Internal Medicine 03/08/14 Sruthi Larkin [address] [place] [address] Specialty Medical Sonographer Cardiology 10/21/23 Johan Payne MD [address] [place] [address] Hematology/Oncology 02/16/24 Leela Drake, DISTRIBUTION SPEC.SOLVENT STATION ATTENDANT [address] [facility] [place] [address] Baker Pastry Internal Medicine 04/12/24 Title I Coordinator Relationship Specialty Start Date End Date Cody Carrington MD [address] [facility] [place] [address] PCP - General Internal Medicine 03/08/14 Sruthi Larkin [address] [place] [address] Specialty Medical Sonographer Cardiology 10/21/23 Johan Payne MD [address] [place] [address] Hematology/Oncology 02/16/24 Leela Drake, DISTRIBUTION SPEC.SOLVENT STATION ATTENDANT [address] [facility] [place] [address] Baker Pastry Internal Medicine 04/12/24 Title I Coordinator Relationship Specialty Start Date End Date Cody Carrington MD [address] [facility] [place] [address] PCP - General Internal Medicine 03/08/14 Sruthi Larkin [address] [place] [address] Specialty Medical Sonographer Cardiology 10/21/23 Johan Payne MD [address] [facility] [place] [address] Hematology/Oncology 02/16/24 Leela Drake, DISTRIBUTION SPEC.SOLVENT STATION ATTENDANT [address] [facility] [place] [address] Baker Pastry Internal Medicine 04/12/24 Title I Coordinator Relationship Specialty Start Date End Date Cody Carrington MD [address] [facility] [place] [address] PCP - General Internal Medicine 03/08/14 Sruthi Larkin [address] [facility] [address] [place], [place] [address] Specialty Medical Sonographer Cardiology 10/21/23 Johan Payne MD [address] [facility] [place] [address] Hematology/Oncology 02/16/24 Leela Drake, DISTRIBUTION SPEC.SOLVENT STATION ATTENDANT [address] [facility] [place] [address] [facility] Past[facility] Internal Medicine 04/12/24 Team Status: Active Member Role/Relationship Status Dates Dr. Cody Carrington MD Primary Care Provider Active Team Status: Inactive Member Role/Relationship Status Dates Dr. Cody Carrington MD Primary Care Provider Active Start: November 22, 2024 End: November 22, 2024 Dr. Cody Carrington MD Referring Provider Active Start: November 22, 2024 End: November 22, 2024 Dr. Sruthi Larkin MD Attending Provider Active Start: November 22, 2024 End: November 22, 2024 Title I Coordinator Relationship Specialty Start Date End Date Cody Carrington MD [address] [facility] [place] [address] PCP - General Internal Medicine 03/08/14 Sruthi Larkin [address] [place], [place] [address] Specialty Medical Sonographer Cardiology 10/21/23 Johan Payne MD [address] [place], [place] [id number] Hematology/Oncology 02/16/24 Leela Drake, DISTRIBUTION SPEC.[facility] [address] [place], [place] [id number] Baker Pastry Internal Medicine 04/12/24 Goals (unrecognized section and content) Goals may be documented in a n alternate sectionGoals may be documented in an alternate section (unrecognized sect ion and content) No Status Records FoundNo Status Records FoundNo Status Records FoundNo Status Records Found INFORMATION SOURCE (unrecogn ized section and content) DATE CREATED AUTHOR 10/24/2023 [facility] DATE CREATED AUTHOR AUTHOR'S ORGANIZ ATION 11/24/2024 [facility] DATE CREATED AUTHOR AUTHOR'S ORGANIZ ATION 02/25/2025 [facility] DATE CREATED AUTHOR AUTHOR'S ORGANIZ ATION 02/27/2025 [facility] nter FOR RECORDS PERTAINING TO PATIENTS WHO ARE OR HAVE BEEN ENROLLED IN A CHEMICAL DEPENDENCY/SUBSTANCEABUSE PROGRAM, SOME INFORMATION MAY BE OMITTED. This clinical summary was aggregated from multiple sources. Caution should be exercised in using it in the provision of clinical care. This summary normalizes information from multiple sources, and as a consequence, information in this document may materially change the coding, format and clinical context of patient data. In addition, data may be omitted in some cases. CLINICAL DECISIONS SHOULD BE BASED ON THE PRIMARY CLINICAL RECORDS. [employer] provides no warranty or guarantee of the accuracy or completeness of information in this document.
[2025-04-28 22:30] LABS: Hematocrit 38.6 % (40-54); Hemoglobin 13.6 g/dL (13.0-16.5); Immature Granulocytes Count 0.020 X10^3/uL (0.0-0.0); Mean Corp Hgb Conc 35.2 g/dL (32-36); Mean Corpuscular Volume 100.3 fL (80-94); Mean Platelet Vol. 10.8 fl (6.2-12.0); NRBC Flagged by Analyzer 0 % (0-5); Platelet Count 185 K/mm3 (150-450); RBC Distribution Width CV 12.7 % (11.6-14.6); RBC Distribution Width SD 46.9 fl (35.1-43.9); Red Blood Count 3.85 M/mm3 (4.6-6.2); White Blood Count 7.0 K/mm3 (4.4-11.0)
[2025-04-28] MEDS: 0.9% Normal Saline (1000mL) 1,000 ML 1000 ML IV (22:32)
[2025-04-28 22:41] VITALS: BP 172/70; PULSE 55; RESP 20; TEMP 37.3; O2SAT 96
[2025-04-28 23:00] VITALS: BP 169/78; PULSE 61; RESP 20; TEMP 37.2; O2SAT 94
--- NOTE | 2025-04-28 23:00 | EKG12_ITS ---
Test Reason : DYSRHYTHMIA Blood Pressure : */* mmHG Vent. Rate : 58 BPM Atrial Rate : 58 BPM P-R Int : 166 ms QRS Dur : 100 ms QT Int : 432 ms P-R-T Axes : 49 18 53 degrees QTcB Int : 424 ms Sinus bradycardia Otherwise normal ECG Confirmed by Bhavesh Watson ([id number]), photo editor DMITRIY MCKINLEY ([id number]) on 04/29/2025 8:25:52 AM Referred By: AIDE Confirmed By: Bhavesh Watson
[2025-04-28 23:03] LABS: Anion Gap 15 (7-18); BUN 21 mg/dL (4-19); BUN/Creat Ratio 15.0 RATIO (10-20); Calcium,Total 9.9 mg/dL (7.6-11.0); Carbon Dioxide 21.0 mmol/L (20.0-29.0); Chloride 96 mmol/L (96-106); Glucose 132 mg/dL (70-99); Potassium 4.4 mmol/L (3.5-5.1)
[2025-04-28 23:18] LABS: Mucous, Urine 0 SEEN /hpf (<or=2+); Red Blood Cells-Urine 0 SEEN /hpf (0-5); Squamous Epithelial Cells - UA 0 SEEN /hpf (0-5)
[2025-04-28 23:23] LABS: Color, Urine Yellow (Yellow); Glucose, Dipstick Normal (Normal); Ketone-Dipstick Negative (Negative); Leukocyte Esterase-Dipstick Negative /ul (Negative); Nitrite-Dipstick Negative (Negative); Occult Blood-Urine 25 /ul (Negative); Protein-Dipstick 100 mg/dl (Negative); Specific Gravity, Urine 1.010 (1.002-1.030); Urine Bilirubin Dipstick Negative (Negative)
[2025-04-28 23:34] LABS: Prothrombin Time (Protime)PT. 17.5 SECONDS (11.7-14.9)
[2025-04-28 23:40] VITALS: BP 172/70; PULSE 55; RESP 20; TEMP 37.3; O2SAT 96
[2025-04-29] VITALS (13 sets, daily range): BP systolic 137–178; BP diastolic 50–83; PULSE 54–95; RESP 16–18; TEMP 36.4–37.2; O2SAT 94–98; BMI 31.4
--- OUTSIDE RECORDS SUMMARY | 2025-04-29 00:27 | XMS RPT_ITS | CCD ---
Author Organization [facility] Care Team Providers Care Adhesive Bandage Making Operator Name Role Phone Cody Carrington MD Primary [...] Care Unavailable Leland BENJAMIN, Johan Unavailable Christopher HOSPITAL ADMINISTRATIVE ASSISTANT.STONE DERRICKMAN AND RIGGER, Leela M Unavailable Dr. Cody Carrington MD [...] Care Unavailable ABRJOHAN PELLETIER Referring Unavailable CARRINGTON, EELNI Primary Care Unavailable CHRISTIANO, DABROOKUNG Referring Unavailable CARRINGTON, ELENI Primary Care Unavailable CHRISTIANO, DABROOKUNG Referring Unavailable CARRINGTON, ELENI Primary Care Unavailable CHRISTIANO, DALORRIANE Referring Unavailable CARRINGTON, ELENI Primary Care Unavailable [...] Latex; Translations: [LATEX] Drug Allergy 03-15-2024 [facility] Medications Current Medications Medication Drug Class(es) Dates [...] Comment on above: Take 1 tablet by feilpa th two times a day. Take 5 [...] on above: Take 1 capsule by mo azh daily at bedtime. Take 2 capsules by [...] Comment on above: [facility] Completed/Discontinued Medications Medication Drug Class(es) [...] 5 Episodic Other aftercare (1 source) manager long term care (current) use of anticoagulants; Translations: [Anticoagulant long-term [...] sources) Long-term current use of anticoagulant; Translations: [MCC (current) use of anticoagulants] Onset: 10-21-2023 10-21-2023 [...] Test Name Value Interpretation Reference Range Facility [facility] 02-25-2025 CNOV Office Visit (URCANT ) -- JIANCLINT CONNOR ([id number]) 1940 M Date Time Provider Department 02/25/25 8:30 AM RADHA LARSEN URMARGARITA During your visit today, we recorded the following information about you: Radha Larsen MD 02/25/2025 8:43 AM Signed [facility] ESTABLISHED PATIENT NOTE [...] report to emergency department for evaluation. 8. MCC (current) use of anticoagulants (Z79.01) Chronically anticoagulated [...] 6 h (more content not included)... Normal [facility] Comprehensive metabolic 2000 panelon 02-23-2025 Albumin [Mass/Vol] 4.2 g/dL Normal 3.9-4.9 [facility] Comment on above: Order Comment: Speci men Type: BLOOD SPECIMEN Ordering Facility: [facility] Address: [address] [place] [address] Performed By: #### 2 4323-8 #### [facility] CLIA [id number] [address] [place] [address] [place] ALP [Catalytic activity/Vol] 62 U/L Normal 38-113 [facility] Comment on above: Order Comment: Speci men Type: BLOOD SPECIMEN Ordering Facility: [facility] Address: [address] [place] [address] Performed By: #### 2 4323-8 #### [facility] CLIA [id number] [address] [place] [address] [place] ALT [Catalytic activity/Vol] 5 U/L Low 10-54 [facility] Comment on above: Order Comment: Speci men Type: BLOOD SPECIMEN Ordering Facility: [facility] Address: [address] [place] [address] Performed By: #### 2 4323-8 #### [facility] CLIA [id number] [address] [place] [address] [place] Anion gap [Moles/Vol] 9 mmol/L Normal 8-15 [facility] Comment on above: Order Comment: Speci men Type: BLOOD SPECIMEN Ordering Facility: [facility] Address: [address] [place] [address] Performed By: #### 2 4323-8 #### [facility] CLIA [id number] [address] [place] [address] [place] AST [Catalytic activity/Vol] 12 U/L Low 14-40 [facility] Comment on above: Order Comment: Speci men Type: BLOOD SPECIMEN Ordering Facility: [facility] Address: [address] [place] [address] Performed By: #### 2 4323-8 #### [facility] CLIA [id number] [address] [place] [address] [place] Bilirubin [Mass/Vol] 0.4 mg/dL Normal 0.2-1.3 [facility] Comment on above: Order Comment: Speci men Type: BLOOD SPECIMEN Ordering Facility: [facility] Address: [address] [place] [address] Performed By: #### 2 4323-8 #### [facility] CLIA [id number] [address] [place] [address] [place] Calcium [Mass/Vol] 9.9 mg/dL Normal 8.5-10.2 [facility] Comment on above: Order Comment: Speci men Type: BLOOD SPECIMEN Ordering Facility: [facility] Address: [address] [place] [address] Performed By: #### 2 4323-8 #### [facility] CLIA [id number] [address] [place] [address] [place] Chloride [Moles/Vol] 102 mmol/L Normal 98-107 [facility] Comment on above: Order Comment: Speci men Type: BLOOD SPECIMEN Ordering Facility: [facility] Address: [address] [place] [address] Performed By: #### 2 4323-8 #### [facility] CLIA [id number] [address] [place] [address] [place] CO2 [Moles/Vol] 24 mmol/L Normal 22-30 [facility] Comment on above: Order Comment: Speci men Type: BLOOD SPECIMEN Ordering Facility: [facility] Address: [address] [place] [address] Performed By: #### 2 4323-8 #### [facility] CLIA [id number] [address] [place] [address] [place] Creatinine [Mass/Vol] 1.23 mg/dL High 0.73-1.22 [facility] Comment on above: Order Comment: Franny zavala Type: BLOOD SPECIMEN Ordering Facility: [facility] Address: [address] [place] [address] Performed By: #### 2 4323-8 #### [facility] CLIA [id number] [address] [place] [address] [place] eGFRcr SerPlBld CKD-EPI 2020 59 mL/min/1.73m??? Low >=60 [facility] Comment on above: Order Comment: Franny zavala Type: BLOOD SPECIMEN Ordering Facility: [facility] Address: [address] [place] [address] Result Comment: Karin mated Glomerular Filtration Rate [...] GFR. Performed By: #### 2 4323-8 #### [facility] CLIA [id number] [address] [place] [address] [place] Glucose [Mass/Vol] 100 mg/dL High 74-99 [facility] Comment on above: Order Comment: Franny zavala Type: BLOOD SPECIMEN Ordering Facility: [facility] Address: [address] [place] [address] Result Comment: The [place] Diabetes Association (ADA) provides guidance for cutoff [...] Standards of Medical Care in Diabetes 2016, [place] [employer]. Diabetes Care. 2016.39(Suppl 1). Performed By: #### 2 4323-8 #### [facility] CLIA [id number] [address] [place] [address] [place] Potassium [Moles/Vol] 4.7 mmol/L Normal 3.7-5.1 [facility] Comment on above: Order Comment: Speci men Type: BLOOD SPECIMEN Ordering Facility: [facility] Address: [address] [place] [address] Performed By: #### 2 4323-8 #### [facility] CLIA [id number] [address] [place] [address] [place] Protein [Mass/Vol] 7.4 g/dL Normal 6.3-8.0 [facility] Comment on above: Order Comment: Speci men Type: BLOOD SPECIMEN Ordering Facility: [facility] Address: [address] [place] [address] Performed By: #### 2 4323-8 #### [facility] CLIA [id number] [address] [place] [address] [place] Sodium [Moles/Vol] 135 mmol/L Low 136-144 [facility] Comment on above: Order Comment: Speci men Type: BLOOD SPECIMEN Ordering Facility: [facility] Address: [address] [place] [address] Performed By: #### 2 4323-8 #### [facility] CLIA [id number] [address] [place] [address] [place] Urea nitrogen [Mass/Vol] 22 mg/dL Normal 9-24 [facility] Comment on above: Order Comment: Speci men Type: BLOOD SPECIMEN Ordering Facility: [facility] Address: [address] [place], [place] [address] Performed By: #### 2 4323-8 #### [facility] CLIA [id number] [address] [place] [address] [place] PSA SerPl-mCncon 02-23-2025 Prostate specific Ag [Mass/Vol] 0.26 ng/mL Normal <2.60 [facility] Comment on above: Order Comment: Speci men Type: BLOOD SPECIMEN Ordering Facility: [facility] Address: [address] [place] [address] Result Comment: Tota l PSA test methodology used is the Electrochemiluminescence Immunoassay by [employer]. Total PSA values by differing methodologies cannot be interchanged. Performed By: #### 2 857-1 #### [facility] CLIA [id number] [address] [place] [address] [place] TSH SerPl-aCncon 02-23-2025 TSH Qn 3.720 m[IU]/L Normal 0.270-4.200 [facility] Comment on above: Order Comment: Speci men Type: BLOOD SPECIMEN Ordering Facility: [facility] Address: [address] [place] [address] Performed By: #### 2 857-1 #### [facility] CLIA [id number] [address] [place] CNOVSPon 02-22-2025 CNOVSP Visit (SP) Office ( EMA) -- CLINT VILLAR ([id number]) 1940 M Date Time Provider Department 02/22/25 [...] Known A (more content not included)... Normal [facility] Tray 02-22-2025 FLORINDA Telephone (TYE) -- JIANCLINT CONNOR ([id number]) 1940 M Date Time Provider Department 02/22/25 [...] [D64.9] 12/27/2021 Positive colorectal cancer screening using [place]*01/03/2023 02/26/2024 Elevated PSA [R97.20] 01/09/2023 10/27/2024 New [...] Encounter Status:Closed by YANDY CRONIN [facility] CLINT VILLAR ([id number]) 1940 M Date Time Provider Department 02/22/25 [...] [C61] Order(s):PROSTATE-SPECIFIC ANTIGEN DIAGNOSTIC [SQPSA] Order #: [id number] FUTURE Prescriptions as of 02/23/2025 - prochlorperazine [...] [D64.9] 12/27/2021 Positive colorectal cancer screening using [place]*01/03/2023 02/26/2024 Elevated PSA [R97.20] 01/09/2023 10/27/2024 New [...] Encounter Status:Closed by CHELSEA MARY on 02/23/25 [facility] Tray 02-21-2025 CNPN Telephone (TYE) -- CLINT VILLAR ([id number]) 1940 M Date Time Provider Department 02/21/25 PINA SCHUSTER During your visit today, we recorded the following information about you: Earnestine Venegas 02/21/2025 3:04 PM Signed Patient called stating he is waiting on a call from office. Care coord went to [facility]. Please advise. RECOMMENDATION/PLAN: 1. continue GnRH agonist, [...] [D64.9] 12/27/2021 Positive colorectal cancer screening using [place]*01/03/2023 02/26/2024 Elevated PSA [R97.20] 01/09/2023 10/27/2024 New [...] Encounter Status:Closed by BOUCHRA FORTUNE on 02/22/25 [facility] CNOVSSacha 02-11-2025 CNOVSP Visit (SP) Office (H EMAWS) -- CLINT VILLAR ([id number]) 1940 M Date Time Provider Department 02/11/25 [...] tamsulosin (FLOM (more content not included)... Normal [facility] Comprehensive metabolic 2000 panelon 02-11-2025 Albumin [Mass/Vol] 4.0 g/dL Normal 3.9-4.9 [facility] Comment on above: Order Comment: Speci men Type: BLOOD SPECIMEN Ordering Facility: [facility] Address: [address] [place] [address] Performed By: #### 2 4321-2 #### [id number] [address] [place] [address] [place] ALP [Catalytic activity/Vol] 60 U/L Normal 38-113 [facility] Comment on above: Order Comment: Speci men Type: BLOOD SPECIMEN Ordering Facility: [facility] Address: [address] [place] [address] Performed By: #### 2 4321-2 #### [facility] [id number] [address] [place] [address] [place] ALT [Catalytic activity/Vol] 6 U/L Low 10-54 [facility] Comment on above: Order Comment: Speci men Type: BLOOD SPECIMEN Ordering Facility: [facility] Address: [address] [place] [address] Performed By: #### 2 4321-2 #### [facility] [id number] [address] [place] [address] [place] Anion gap [Moles/Vol] 12 mmol/L Normal 8-15 [facility] Comment on above: Order Comment: Speci men Type: BLOOD SPECIMEN Ordering Facility: [facility] Address: [address] [place] [address] Performed By: #### 2 4321-2 #### [facility] CLIA [id number] [address] [place] [address] [place] AST [Catalytic activity/Vol] 12 U/L Low 14-40 [facility] Comment on above: Order Comment: Speci men Type: BLOOD SPECIMEN Ordering Facility: [facility] Address: [address] [place] [address] Performed By: #### 2 4321-2 #### [facility] CLIA [id number] [address] [place] [address] [place] Bilirubin [Mass/Vol] 0.3 mg/dL Normal 0.2-1.3 [facility] Comment on above: Order Comment: Speci men Type: BLOOD SPECIMEN Ordering Facility: [facility] Address: [address] [place] [address] Performed By: #### 2 4321-2 #### [facility] CLIA [id number] [address] [place] [address] [place] Calcium [Mass/Vol] 9.6 mg/dL Normal 8.5-10.2 [facility] Comment on above: Order Comment: Speci men Type: BLOOD SPECIMEN Ordering Facility: [facility] Address: [address] [place] [address] Performed By: #### 2 4321-2 #### [facility] CLIA [id number] [address] [place] [address] [place] Chloride [Moles/Vol] 101 mmol/L Normal 98-107 [facility] Comment on above: Order Comment: Speci men Type: BLOOD SPECIMEN Ordering Facility: [facility] Address: [address] [place] [address] Performed By: #### 2 4321-2 #### [facility] CLIA [id number] [address] [place] [address] [place] CO2 [Moles/Vol] 21 mmol/L Low 22-30 [facility] Comment on above: Order Comment: Speci men Type: BLOOD SPECIMEN Ordering Facility: [facility] Address: [address] [place] [address] Performed By: #### 2 4321-2 #### [facility] CLIA [id number] [address] [place] [address] [place] Creatinine [Mass/Vol] 1.39 mg/dL High 0.73-1.22 [facility] Comment on above: Order Comment: Speci men Type: BLOOD SPECIMEN Ordering Facility: [facility] Address: [address] [place] [address] Performed By: #### 2 4321-2 #### [facility] [id number] [address] [place] [address] [place] eGFRcr SerPlBld CKD-EPI 2020 51 mL/min/1.73m??? Low >=60 [facility] Comment on above: Order Comment: Speci men Type: BLOOD SPECIMEN Ordering Facility: [facility] Address: [address] [place] [address] Result Comment: Karin mated Glomerular Filtration Rate [...] GFR. Performed By: #### 2 4321-2 #### [facility] CLIA [id number] [address] [place] [address] [place] Glucose [Mass/Vol] 103 mg/dL High 74-99 [facility] Comment on above: Order Comment: Speci men Type: BLOOD SPECIMEN Ordering Facility: [facility] Address: [address] [place] [address] Result Comment: The [place] Diabetes Association (ADA) provides guidance for cutoff [...] Standards of Medical Care in Diabetes 2016, [place] Diabetes Association. Diabetes Care. 2016.39(Suppl 1). Performed By: #### 2 4321-2 #### [facility] CLIA [id number] [address] [place] [address] [place] Potassium [Moles/Vol] 3.9 mmol/L Normal 3.7-5.1 [facility] Comment on above: Order Comment: Speci men Type: BLOOD SPECIMEN Ordering Facility: [facility] Address: [address] [place] [address] Performed By: #### 2 4321-2 #### [facility] [id number] [address] [place] [address] [place] Protein [Mass/Vol] 7.1 g/dL Normal 6.3-8.0 [facility] Comment on above: Order Comment: Speci men Type: BLOOD SPECIMEN Ordering Facility: [facility] Address: [address] [place] [address] Performed By: #### 2 4321-2 #### [facility] CLIA [id number] [address] [place] [address] [place] Sodium [Moles/Vol] 134 mmol/L Low 136-144 [facility] Comment on above: Order Comment: Speci men Type: BLOOD SPECIMEN Ordering Facility: [facility] Address: [address] [place] [address] Performed By: #### 2 4321-2 #### [facility] CLIA [id number] [address] [place], [place] [id number] [place] Urea nitrogen [Mass/Vol] 24 mg/dL Normal 9-24 [facility] Comment on above: Order Comment: Speci men Type: BLOOD SPECIMEN Ordering Facility: [facility] Address: [address] [place] [address] Performed By: #### 2 4321-2 #### [facility] CLIA [id number] [address] [place] [address] [place] [facility] Prostate specific Ag [Mass/Vol] 0.30 ng/mL Normal <2.60 [facility] Comment on above: Order Comment: Speci men Type: BLOOD SPECIMEN Ordering Facility: [facility] Address: [address] [place] [address] Result Comment: Tota l PSA test methodology used is the Electrochemiluminescence Immunoassay by [employer]. Total PSA values by differing methodologies cannot be interchanged. Performed By: #### 2 857-1 #### [facility] CLIA [id number] [address] [place] CNOVon 01-04-2025 CNOV Office Visit (INTMWS ) -- CLINT VILLAR ([id number]) 1940 Krist[place] Date Time Provider Department 01/04/25 [...] Medicine) Johan Payne MD (Hematology/Oncology) Leela Drake, HOSPITAL ADMINISTRATIVE ASSISTANT.STONE DERRICKMAN AND RIGGER as Emblem Maker (Internal Medicine) Radha Larsen MD (Urology) Rodolfo Aguilar MD (Radiation Oncology) Outside specialists seen: Sruthi Larkin as Specialty Drum Drier (Cardiology) Medical/Family history review Reviewed and updated [...] review all the medicines you take, even qggr-nuu-yujgenl medicines. As you get older, the way [...] well. Bobo (more content not included)... Normal [facility] Cardiology Visit Reporton Cardiology Visit Report [facility] [address] [place], [place] [address] OFFICE VISIT Date of Service: 11/22/24 MR#: [id number] Acct: [id number] Name: CLINT VILLAR Rep #: [id number] : 1940 Provider: Dr. Sruthi jeffers MD Age/Sex: 84/M Location: [facility] Status: Signed HPI HPI History of Present Illness Details: Pleasant 84-year-old white male here for monitoring of his cardiovascular status. Patient carries a history of paroxysmal atrial fibs. He was evaluated back in June 2023 at [facility] where he was admitted. He was treated with beta-mague therapy and Eliquis and spontaneously converted to sinus rhythm. The patient is well aware when he goes into atrial fibrillation he denies having any atrial fibrillation in the last 6 months. He actually has been seen by Dr. Barrera at [facility] And he was evaluated there for treatment [...] 01, 2023 in the ambulatory setting at [facility]. 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 Normal [facility] CBC panel Auto (Bld)on 11-12 Erythrocyte distribution width (RBC) [Ratio] 14.0 % Normal 11.5-15.0 [facility] Comment on above: Order Comment: Speci men Type: BLOOD SPECIMEN Ordering Facility: [facility] Address: [address] [place] [address] Performed By: #### 2 4321-2 #### [facility] CLIA [id number] [address] [place] [address] [place] Hematocrit (Bld) [Volume fraction] 40.4 % Normal 39.0-51.0 [facility] Comment on above: Order Comment: Speci men Type: BLOOD SPECIMEN Ordering Facility: [facility] Address: [address] [place] [address] Performed By: #### 2 4321-2 #### [facility] [id number] [address] [place] [address] [place] Hemoglobin (Bld) [Mass/Vol] 13.7 g/dL Normal 13.0-17.0 [facility] Comment on above: Order Comment: Speci men Type: BLOOD SPECIMEN Ordering Facility: [facility] Address: [address] [place] [address] Performed By: #### 2 4321-2 #### [facility] CLIA [id number] [address] [place] [address] [place] MCH (RBC) [Entitic mass] 33.8 pg Normal 26.0-34.0 [facility] Comment on above: Order Comment: Speci men Type: BLOOD SPECIMEN Ordering Facility: [facility] Address: [address] [place], [place] [address] Performed By: #### 2 4321-2 #### [facility] CLIA [id number] [address] [place] [address] [place] MCHC (RBC) [Mass/Vol] 33.9 g/dL Normal 30.5-36.0 [facility] Comment on above: Order Comment: Speci men Type: BLOOD SPECIMEN Ordering Facility: [facility] Address: [address] [place] [address] Performed By: #### 2 4321-2 #### [facility] CLIA [id number] [address] [place] [address] [place] MCV (RBC) [Entitic vol] 99.8 fL Normal 80.0-100.0 [facility] Comment on above: Order Comment: Speci men Type: BLOOD SPECIMEN Ordering Facility: [facility] Address: [address] [place] [address] Performed By: #### 2 4321-2 #### [facility] CLIA [id number] [address] [place] [address] [place] Nucleated RBC (Bld) [#/Vol] 10*3/uL Normal <0.01 [facility] Comment on above: Order Comment: Speci men Type: BLOOD SPECIMEN Ordering Facility: [facility] Address: [address] [place] [address] Performed By: #### 2 4321-2 #### [facility] CLIA [id number] [address] [place] [address] [place] Platelet mean volume (Bld) [Entitic vol] 9.0 fL Normal 9.0-12.7 [facility] Comment on above: Order Comment: Speci men Type: BLOOD SPECIMEN Ordering Facility: [facility] Address: [address] [place] [address] Performed By: #### 2 4321-2 #### [facility] CLIA [id number] [address] [place] [address] [place] Platelets (Bld) [#/Vol] 157 10*3/uL Normal 150-400 [facility] Comment on above: Order Comment: Speci men Type: BLOOD SPECIMEN Ordering Facility: [facility] Address: [address] [place] [address] Performed By: #### 2 4321-2 #### [facility] CLIA [id number] [address] [place] [address] [place] RBC (Bld) [#/Vol] 4.05 10*6/uL Low 4.20-6.00 [facility] Comment on above: Order Comment: Speci men Type: BLOOD SPECIMEN Ordering Facility: [facility] Address: [address] [place] [address] Performed By: #### 2 4321-2 #### [facility] CLIA [id number] [address] [place] [address] [place] WBC (Bld) [#/Vol] 5.15 10*3/uL Normal 3.70-11.00 [facility] Comment on above: Order Comment: Speci men Type: BLOOD SPECIMEN Ordering Facility: [facility] Address: [address] [place] [address] Performed By: #### 2 4321-2 #### [facility] [id number] [address] [place] [address] [place] CNOVSPon 11-12-2024 CNOVSP Visit (SP[facility] CLINT VILLAR ([id number]) 1940 M Date Time Provider Department 11/12/24 [...] PHYSICAL EXAMINATION: (more content not included)... Normal [facility] Comprehensive metabolic 2000 panelon 11-12-2024 Albumin [Mass/Vol] 4.3 g/dL Normal 3.9-4.9 [facility] Comment on above: Order Comment: Speci men Type: BLOOD SPECIMEN Ordering Facility: [facility] Address: [address] [place] [address] Performed By: #### 2 857-1 #### [facility] CLIA [id number] [address] STATES OF [facility] ALP [Catalytic activity/Vol] 48 U/L Normal 38-113 [facility] Comment on above: Order Comment: Speci men Type: BLOOD SPECIMEN Ordering Facility: [facility] Address: [address] [place] [address] Performed By: #### 2 857-1 #### [facility] CLIA [id number] [address] STATES OF [facility] ALT [Catalytic activity/Vol] 8 U/L Low 10-54 [facility] Comment on above: Order Comment: Speci men Type: BLOOD SPECIMEN Ordering Facility: [facility] Address: [address] [place] [address] Performed By: #### 2 857-1 #### [facility] CLIA [id number] [address] [place] Anion gap [Moles/Vol] 12 mmol/L Normal 8-15 [facility] Comment on above: Order Comment: Speci men Type: BLOOD SPECIMEN Ordering Facility: [facility] Address: [address] [place] [address] Performed By: #### 2 857-1 #### [facility] CLIA [id number] 1 [place] [address] [place] AST [Catalytic activity/Vol] 14 U/L Normal 14-40 [facility] Comment on above: Order Comment: Speci men Type: BLOOD SPECIMEN Ordering Facility: [facility] Address: [address] [place] [address] Performed By: #### 2 857-1 #### [facility] CLIA [id number] 1 [place] [address] [place] Bilirubin [Mass/Vol] 0.4 mg/dL Normal 0.2-1.3 [facility] Comment on above: Order Comment: Speci men Type: BLOOD SPECIMEN Ordering Facility: [facility] Address: [address] [place] [address] Performed By: #### 2 857-1 #### [facility] CLIA [id number] 1 [place] [address] [place] Calcium [Mass/Vol] 10.4 mg/dL High 8.5-10.2 [facility] Comment on above: Order Comment: Speci men Type: BLOOD SPECIMEN Ordering Facility: [facility] Address: [address] [place] [address] Performed By: #### 2 857-1 #### [facility] CLIA [id number] [address] [place] [address] [place] Chloride [Moles/Vol] 101 mmol/L Normal 98-107 [facility] Comment on above: Order Comment: Speci men Type: BLOOD SPECIMEN Ordering Facility: [facility] Address: [address] [place] [address] Performed By: #### 2 857-1 #### [facility] CLIA [id number] 1 [place] [address] [place] CO2 [Moles/Vol] 24 mmol/L Normal 22-30 [facility] Comment on above: Order Comment: Speci men Type: BLOOD SPECIMEN Ordering Facility: [facility] Address: [address] [place] [address] Performed By: #### 2 857-1 #### [facility] CLIA [id number] [address] [place] [address] [place] Creatinine [Mass/Vol] 1.52 mg/dL High 0.73-1.22 [facility] Comment on above: Order Comment: Franny zavala Type: BLOOD SPECIMEN Ordering Facility: [facility] Address: [address] [place] [address] Performed By: #### 2 857-1 #### [facility] CLIA [id number] [address] [place] Creatinine and Glomerular filtration rate.predicted panel (S/P/Bld) 45 mL/min/1.73m??? Low >=60 [facility] Comment on above: Order Comment: Franny zavala Type: BLOOD SPECIMEN Ordering Facility: [facility] Address: [address] [place] [address] Result Comment: Karin mated Glomerular Filtration Rate [...] Performed By: #### 2 857-1 #### [facility] CLIA [id number] 1 [place] [address] [place] Glucose [Mass/Vol] 111 mg/dL High 74-99 [facility] Comment on above: Order Comment: Franny zavala Type: BLOOD SPECIMEN Ordering Facility: [facility] Address: [address] [place] [address] Result Comment: The [place] Diabetes Association (ADA) provides guidance for cutoff [...] Standards of Medical Care in Diabetes 2016, [place] Diabetes Association. Diabetes Care. 2016.39(Suppl 1). Performed By: #### 2 857-1 #### [facility] CLIA [id number] [address] [place] Potassium [Moles/Vol] 4.2 mmol/L Normal 3.7-5.1 [facility] Comment on above: Order Comment: Speci men Type: BLOOD SPECIMEN Ordering Facility: [facility] Address: [address] [place] [address] Performed By: #### 2 857-1 #### [facility] CLIA [id number] [address] [place] Protein [Mass/Vol] 7.4 g/dL Normal 6.3-8.0 [facility] Comment on above: Order Comment: Franny zavala Type: BLOOD SPECIMEN Ordering Facility: [facility] Address: [address] [place] [address] Performed By: #### 2 857-1 #### [facility] CLIA [id number] [address] [place] Sodium [Moles/Vol] 137 mmol/L Normal 136-144 [facility] Comment on above: Order Comment: Celestinai men Type: BLOOD SPECIMEN Ordering Facility: [facility] Address: [address] [place] [address] Performed By: #### 2 857-1 #### [facility] CLIA [id number] [address] [place] [address] [place] Urea nitrogen [Mass/Vol] 35 mg/dL High 9-24 [facility] Comment on above: Order Comment: Celestinai men Type: BLOOD SPECIMEN Ordering Facility: [facility] Address: [address] [place] [address] Performed By: #### 2 857-1 #### [facility] CLIA [id number] 1 [place] [address] [place] HbA1c (Bld)on 11-12-2024 Average glucose Estimated from glycated hemoglobin (Bld) [Mass/Vol] 126 mg/dL Normal [facility] Comment on above: Order Comment: Franny zavala Type: BLOOD SPECIMEN Ordering Facility: [facility] Address: [address] [place] [address] Result Comment: eAG: (Estimated average glucose) is a calculated value from HgbA1c and is termite control service representative of the average blood glucose level in the last 2-3 month period. Performed By: #### 5 5454-3 #### [facility] CLIA [id number] [address] [place] [address] [place] HbA1c (Bld) [Mass fraction] 6.0 % High 4.3-5.6 [facility] Comment on above: Order Comment: Franny zavala Type: BLOOD SPECIMEN Ordering Facility: [facility] Address: [address] [place] [address] Result Comment: Amer ican Diabetes Association guidelines indicate that patients with HgbA1c in the range 5.7-6.4% are at increased risk for development of diabetes, and intervention by lifestyle modification may be beneficial. HgbA1c greater or equal to 6.5% is considered diagnostic of diabetes. Performed By: #### 5 5454-3 #### [facility] CLIA [id number] [address] [place] [address] [place] Lipid 1996 panelon Cholesterol [Mass/Vol] 179 mg/dL Normal <200 [facility] Comment on above: Order Comment: Franny zavala Type: BLOOD SPECIMEN Ordering Facility: [facility] Address: [address] [place] [address] Result Comment: <200 mg/dL, Desirable 200-239 mg/dL, Borderline high >239 mg/dL, High Performed By: #### 2 4321-2 #### [facility] CLIA [id number] 1 [place] [address] [place] Cholesterol in HDL [Mass/Vol] 46 mg/dL Normal >39 [facility] Comment on above: Order Comment: Franny zavala Type: BLOOD SPECIMEN Ordering Facility: [facility] Address: [address] [place] [address] Result Comment: 40-5 9 mg/dL, Acceptable >59 mg/dL, High: Negative risk factor for coronary heart disease <40 mg/dL, Low: Positive risk factor for coronary heart disease Performed By: #### 2 4321-2 #### [facility] CLIA [id number] [address] [place] [address] [place] [facility] Cholesterol in LDL [Mass/Vol] 102 mg/dL High <100 [facility] Comment on above: Order Comment: Franny sally Type: BLOOD SPECIMEN Ordering Facility: [facility] Address: [address] [place] [address] Result Comment: <100 mg/dL, Optimal 100-129 mg/dL, Near optimal/above optimal 130-159 mg/dL, Borderline high 160-189 mg/dL, High >189 mg/dL, Very high Secondary prevention optimal LDL Cholesterol levels are recommended to be <70 mg/dL LDL cholesterol is calculated using the Raza-NIH equation. Performed By: #### 2 4321-2 #### [id number] [address] [place] [address] [place] Cholesterol in LDL/Cholesterol in HDL [Mass ratio] 2.22 {ratio} Normal <2.54 [facility] Comment on above: Order Comment: Franny zavala Type: BLOOD SPECIMEN Ordering Facility: [facility] Address: [address] [place] [address] Result Comment: Refe rence: 1. National Cholesterol Education Program ATP III Guideline At-A-Glance Quick Desk Reference: National Heart, Lung, and Blood [place]. National Institutes of Health. 2001: NIH Publication No. 01-3305. 2. An International Atherosclerosis Society position paper: global recommendations for the management of dyslipidemia: executive summary, Atherosclerosis. 2014: 232(2):410-413. Performed By: #### 2 4321-2 #### [facility] CLIA [id number] [address] [place] [address] [place] Cholesterol in VLDL [Mass/Vol] 30 mg/dL High <30 [facility] Comment on above: Order Comment: Speci men Type: BLOOD SPECIMEN Ordering Facility: [facility] Address: [address] [place], [place] [address] Performed By: #### 2 4321-2 #### [facility] CLIA [id number] [address] [place] [address] [place] Cholesterol non HDL [Mass/Vol] 133 mg/dL High <130 [facility] Comment on above: Order Comment: Speci men Type: BLOOD SPECIMEN Ordering Facility: [facility] Address: [address] [place] [address] Result Comment: <130 mg/dL, Optimal 130-159 mg/dL, Near optimal/above optimal 160-189 mg/dL, Borderline high 190-219 mg/dL, High >219 mg/dL, Very high Secondary prevention optimal non HDL Cholesterol levels are recommended to be <100 mg/dL Performed By: #### 2 4321-2 #### [facility] CLIA [id number] [address] [place] [address] [place] Cholesterol.total/Cho lesterol in HDL [Mass ratio] 3.89 {ratio} Normal <5.10 [facility] Comment on above: Order Comment: Speci men Type: BLOOD SPECIMEN Ordering Facility: [facility] Address: [address] [place] [address] Performed By: #### 2 4321-2 #### [facility] CLIA [id number] [address] [place] [address] [place] FASTING TIME [address] [facility] Comment on above: Order Comment: Speci men Type: BLOOD SPECIMEN Ordering Facility: [facility] Address: [address] [place], [place] [address] Result Comment: 2 Performed By: #### 2 4321-2 #### [facility] CLIA [id number] [address] [place] [address] [place] Triglyceride [Mass/Vol] 181 mg/dL High <150 [facility] Comment on above: Order Comment: Speci men Type: BLOOD SPECIMEN Ordering Facility: [facility] Address: [address] [place] [address] Result Comment: <150 mg/dL, Normal 150-199 mg/dL, Borderline high 200-499 mg/dL, High >499 mg/dL, Very high Performed By: #### 2 4321-2 #### [facility] CLIA [id number] [address] [place] [address] [place] PSA SerPl-mCncon 11-12-2024 Prostate specific Ag [Mass/Vol] 0.41 ng/mL Normal <2.60 [facility] Comment on above: Order Comment: Speci men Type: BLOOD SPECIMEN Ordering Facility: [facility] Address: [address] [place] [address] Result Comment: Tota l PSA test methodology used is the Electrochemiluminescence Immunoassay by [employer]. Total PSA values by differing methodologies cannot be interchanged. Performed By: #### 2 857-1 #### [facility] CLIA [id number] [address] [place] [address] [place] TSH SerPl-aCncon 11-12-2024 TSH Qn 6.820 m[IU]/L High 0.270-4.200 [facility] Comment on above: Order Comment: Speci men Type: BLOOD SPECIMEN Ordering Facility: [facility] Address: [address] [place] [address] Performed By: #### 2 4321-2 #### [facility] CLIA [id number] [address] [place] [address] [place] CNOVon 10-27-2024 CNOV Office Visit (INTMWS ) -- CLINT VILLAR ([id number]) 1940 M Date Time Provider Department 10/27/24 3:20 PM CODY CARRINGTON INTMWS During your visit today, we recorded the following information about you: Pulse Blood pressure Weight 51/minute 150/74 91.4 kg Cody Carrington MD 10/27/2024 4:35 PM Signed This note was created using NoteWriter. Subjective Clint Villar is a 84 year old male. Patient presents with: F/U 6 months Recording using Wavii software for draft documentation of the visit was discussed with the patient/authorized termite control service representative; all questions welcomed and answered. Patient/authorized termite control service representative agreed to proceed BPH: - Reports improvement [...] requiring frequent throat clearing. - Symptoms began oall-ESYSL-49 infection, persisting for several months. - Previously [...] Musculoskeletal: Ri (more content not included)... Normal [facility] CLINT VILLAR ([id number]) 1940 M Date Time Provider Department 09/02/24 [...] Rash Date Reviewed: 08/26/2024 Reviewed by: Radha Larsne MD - Fully Assessed Reason for Visit: Care Coordination [3491] Primary Visit Diagnosis:Prostate cancer (HCC) [C61] Order(s):COMPREHENSIVE METABOLIC PANEL [SQCMP] Order #: [id number] FUTURE Prescriptions as of 09/03/2024 - pantoprazole [...] [D64.9] 12/27/2021 Positive colorectal cancer screening using [place]*01/03/2023 02/26/2024 Elevated PSA [R97.20] 01/09/2023 New onset [...] Encounter Status:Closed by BOUCHRA FORTUNE on 09/03/24 [facility] Samson 08-26-2024 CNOV Office Visit (URCANT ) -- CLINT VILLAR ([id number]) 1940 M Date Time Provider Department 08/26/24 8:15 AM RADHA LARSEN During your visit today, we recorded the following information about you: Radha Larsen MD 08/26/2024 8:36 AM Signed [facility] ESTABLISHED PATIENT NOTE [...] medical therapy through oncology Follow up with id 6 months for PSA Orders: UA DIP, [...] long-term use 10/21/2023 (more content not included)... [facility] Tray 08-25-2024 [place] Telephone (HEMAWS) -- CLINT VILLAR ([id number]) 1940 M Date Time Provider Department 08/25/24 [...] injection on 11/12/24. please send patient via MogoTixhart when completed. WOODY Harper Naomi 08/25/2024 1:02 PM Signed This has been scheduled as directed. Britt Agustin Allergies As of Date: 08/25/2024 Noted Allergy Reaction LATEX 03/15/2024 2 - Rash Date Reviewed: 08/20/2024 Reviewed by: Dawn Jaimes LPN - Fully Assessed Reason for Visit: Care Coordination [5127] Cmt: ORAL ANTI-CANCER AGENTS EDUCATION-Xtandi Prescriptions as [...] 5 m (more content not included)... Normal [facility] PSA SerPl-ncon 08-20-2024 Prostate specific Ag [Mass/Vol] 0.73 ng/mL Normal <2.60 [facility] Comment on above: Order Comment: Speci men Type: BLOOD SPECIMEN Ordering Facility: [facility] Address: [address] [place] [address] Result Comment: Tota l PSA test methodology used is the Electrochemiluminescence Immunoassay by [employer]. Total PSA values by differing methodologies cannot be interchanged. Performed By: #### 2 4321-2 #### [facility] CLIA [id number] [address] [place] [address] CNPKarla 08-06-2024 CNPN Telephone (TYE) -- CLINT VILLAR ([id number]) 1940 M Date Time Provider Department 08/06/24 [...] information. He ask that I send an Sermo message with the name of pharmacy and contact number and he will reach out to them. Chelsea Fortune RN Allergies As of Date: 08/06/2024 Noted Allergy Reaction LATEX 03/15/2024 2 - Rash Date Reviewed: 07/15/2024 Reviewed by: Radha Larsen MD - Fully Assessed Reason for Visit: Care Coordination [2695] Cmt: Xtandi Prescriptions as of 08/12/2024 - [...] [D64.9] 12/27/2021 Positive colorectal cancer screening using [place]*01/03/2023 02/26/2024 Elevated PSA [R97.20] 01/09/2023 New onset [...] Status:Closed by BOUCHRA FORTUNE on 08/12/[address] [facility] US KIDNEY/BLADDERon 07-23-19 US KIDNEY/BLADDER * * [...] Bladder: Normal sonographic appearance. IMPRESSION: No hydronephrosis. Membership Sales Manager: PSCB Transcribe Date/Time: Jul 25 2024 11:56A Dictated by : JOB DOUGHERTY MD This examination was interpreted and the report reviewed and electronically signed by: JOB DOUGHERTY MD on Jul 25 2024 11:57AM EST [id number] Normal [facility] BLADDER SCANon 07-15-2024 PVR-127mL [facility] CNOVon 07-15-2024 CNOV Office Visit (URCANT ) -- CLINT VILLAR ([id number]) 1940 M Date Time Provider Department 07/15/24 10:15 AM RADHA LARSEN During your visit today, we recorded the following information about you: Blood pressure Weight Height 132/58 90.7 kg 1.676 m Radha Larsen MD 07/15/2024 10:44 AM Signed [facility] PROCEDURE NOTE PATIENT: [...] Patient acknowledges understanding and consents to proceed. Transmission Engineer present for entirety of procedure. PROCEDURE DETAIL: [...] Radha Larsen MD 07/15/2024 10:44 AM Signed [facility] ESTABLISHED PATIENT NOTE PATIENT: Clint Villar (84 year old) PCP: Cody Carrington MD DATE OF SERVICE: 07/15/2024 -- SUMMARY: Mr. Villar is a 84 year old male who is here for Assessment AND Plan Prostate cancer (HCC) Castrate sensitive metastatic prostate cancer On [facility] through oncology XRT PSA 1.88 (down from 73.59 bola (more content not included)... Normal [facility] UA DIP, URINE (POC)on 2024 BILIRUBIN UA (POCT) Negative Negative [facility] CLARITY UA (POCT) Clear [facility] COLOR UA (POCT) Yellow [facility] GLUCOSE UA (POCT) Negative Negative mg/dL [facility] Hemoglobin Ql (U) Moderate Abnormal Negative [facility] Interpretation and review of laboratory results Abnormal [facility] KETONE UA (POCT) Negative Negative mg/dL [facility] LEUKOCYTES UA (POCT) Large Abnormal Negative [facility] NITRITE UA (POCT) Negative Negative [facility] PH UA (POCT) 6 4.5 - 8.0 [facility] Protein Ql (U) 100 mg/dL Abnormal Negative [facility] SPECIFIC GRAVITY UA (POCT) 1.015 1.005 - 1.030 [facility] UROBILINOGEN UA (POCT) 0.2 Normal E.U./dL [facility] Location:[facility] chao Walker, [address] [place] [address] [address], [place], [place], [address] [facility] POINT OF CARE [facility] CNOVSPon 07-09-2024 CNOVSP Visit (SP) Office (H EMAWS) -- CLINT VILLAR ([id number]) 1940 M Date Time Provider Department 07/09/24 [...] PHYSICAL EXAMIN (more content not included)... Normal [facility] 2024 [facility] Telephone (URCANT) -- CLINT VILLAR ([id number]) 1940 M Date Time Provider Department 07/08/24 [...] [D64.9] 12/27/2021 Positive colorectal cancer screening using [place]*01/03/2023 02/26/2024 Elevated PSA [R97.20] 01/09/2023 New onset [...] Status:Closed by RADHA LARSEN on 07/09/[address] [facility] PSA SerPl-mCncon 07-05-2024 Prostate specific Ag [Mass/Vol] 1.88 ng/mL Normal <2.60 [facility] Comment on above: Order Comment: Speci men Type: BLOOD SPECIMEN Ordering Facility: [facility] Address: [address] [place] [address] Result Comment: Tota l PSA test methodology used is the Electrochemiluminescence Immunoassay by [employer]. Total PSA values by differing methodologies cannot be interchanged. Performed By: #### 2 857-1 #### [facility] CLIA [id number] [address] [place] [address] [place] Bacteria Ur Culton 5 Bacteria identified Cx Nom (U) ORGANISM ID: 1 <10,000 CFU/ml Normal urogenital heaven Normal [facility] Comment on above: Performed By: #### 2 4321-2 #### [facility] CLIA [id number] [address] [place] [address] [place] Basic metabolic 2000 panelon 06-29-2024 Anion gap [Moles/Vol] 11 mmol/L Normal 8-15 [facility] Comment on above: Order Comment: Speci men Type: BLOOD SPECIMEN Ordering Facility: [facility] Address: [address] [place] [address] Performed By: #### 2 4321-2 #### [facility] CLIA [id number] [address] [place] [address] [place] Calcium [Mass/Vol] 10.0 mg/dL Normal 8.5-10.2 [facility] Comment on above: Order Comment: Speci men Type: BLOOD SPECIMEN Ordering Facility: [facility] Address: [address] [place], [place] [address] Performed By: #### 2 4321-2 #### [facility] CLIA [id number] [address] [place], [place] [address] [place] Chloride [Moles/Vol] 102 mmol/L Normal 98-107 [facility] Comment on above: Order Comment: Franny zavala Type: BLOOD SPECIMEN Ordering Facility: [facility] Address: [address] [place] [address] Performed By: #### 2 4321-2 #### [facility] CLIA [id number] [address] [place] [address] [place] CO2 [Moles/Vol] 23 mmol/L Normal 22-30 [facility] Comment on above: Order Comment: Franny men Type: BLOOD SPECIMEN Ordering Facility: [facility] Address: [address] [place] [address] Performed By: #### 2 4321-2 #### [facility] CLIA [id number] [address] [place] [address] [place] Creatinine [Mass/Vol] 2.11 mg/dL High 0.73-1.22 [facility] Comment on above: Order Comment: Franny zavala Type: BLOOD SPECIMEN Ordering Facility: [facility] Address: [address] [place] [address] Performed By: #### 2 4321-2 #### [facility] CLIA [id number] [address] [place] [address] [place] Creatinine and Glomerular filtration rate.predicted panel (S/P/Bld) 31 mL/min/1.73m??? Low >=60 [facility] Comment on above: Order Comment: Franny zavala Type: BLOOD SPECIMEN Ordering Facility: [facility] Address: [address] [place] [address] Result Comment: Karin mated Glomerular Filtration Rate [...] GFR. Performed By: #### 2 4321-2 #### [facility] CLIA [id number] [address] [place] [address] [place] Glucose [Mass/Vol] 121 mg/dL High 74-99 [facility] Comment on above: Order Comment: Franny zavala Type: BLOOD SPECIMEN Ordering Facility: [facility] Address: [address] [place] [address] Result Comment: The [place] Diabetes Association (ADA) provides guidance for cutoff [...] Standards of Medical Care in Diabetes 2016, [place] Diabetes Association. Diabetes Care. 2016.39(Suppl 1). Performed By: #### 2 4321-2 #### [facility] [id number] [address] [place] [address] [place] Potassium [Moles/Vol] 4.7 mmol/L Normal 3.7-5.1 [facility] Comment on above: Order Comment: Franny zavala Type: BLOOD SPECIMEN Ordering Facility: [facility] Address: [address] [place] [address] Performed By: #### 2 4321-2 #### [facility] [id number] [address] [place] [address] [place] Sodium [Moles/Vol] 136 mmol/L Normal 136-144 [facility] Comment on above: Order Comment: Franny zavala Type: BLOOD SPECIMEN Ordering Facility: [facility] Address: [address] [place] [address] Performed By: #### 2 4321-2 #### [facility] CLIA [id number] [address] [place] [address] [place] Urea nitrogen [Mass/Vol] 50 mg/dL High 9-24 [facility] Comment on above: Order Comment: Franny zavala Type: BLOOD SPECIMEN Ordering Facility: [facility] Address: [address] [place] [address] Performed By: #### 2 4321-2 #### [facility] CLIA [id number] [address] [place] [address] [place] HbA1c (Bld)on 06-29-2024 Average glucose Estimated from glycated hemoglobin (Bld) [Mass/Vol] 120 mg/dL Normal [facility] Comment on above: Order Comment: Franny zavala Type: BLOOD SPECIMEN Ordering Facility: [facility] Address: [address] [place] [address] Result Comment: eAG: (Estimated average glucose) is a calculated value from HgbA1c and is termite control service representative of the average blood glucose level in the last 2-3 month period. Performed By: #### 2 857-1 #### [facility] CLIA [id number] [address] STATES OF [facility] HbA1c (Bld) [Mass fraction] 5.8 % High 4.3-5.6 [facility] Comment on above: Order Comment: Franny zavala Type: BLOOD SPECIMEN Ordering Facility: [facility] Address: [address] [place] [address] Result Comment: Amer ican Diabetes Association guidelines indicate that patients with HgbA1c in the range 5.7-6.4% are at increased risk for development of diabetes, and intervention by lifestyle modification may be beneficial. HgbA1c greater or equal to 6.5% is considered diagnostic of diabetes. Performed By: #### 2 857-1 #### [facility] CLIA [id number] [address] [place] [address] [place] Urinalysis complete panel (U )on 06-29-2024 BACTERIA UL 9515.[address] [facility] Comment on above: Order Comment: Speci men Type: BLOOD SPECIMEN Ordering Facility: [facility] Address: [address] [place] [address] Performed By: #### 2 4321-2 #### [facility] CLIA [id number] [address] [place] [address] [place] Bilirubin Ql (U) Negative Normal Negative [facility] Comment on above: Order Comment: Speci men Type: BLOOD SPECIMEN Ordering Facility: [facility] Address: [address] [place] [address] Performed By: #### 2 4321-2 #### [facility] CLIA [id number] [address] [place] [address] [place] Clarity (Unsp spec) Turbid Abnormal Clear [facility] Comment on above: Order Comment: Speci men Type: BLOOD SPECIMEN Ordering Facility: [facility] Address: [address] [place] [address] Performed By: #### 2 4321-2 #### [facility] CLIA [id number] [address] [place] [address] [place] [facility] Color (U) Yellow Normal Yellow [facility] Comment on above: Order Comment: Speci men Type: BLOOD SPECIMEN Ordering Facility: [facility] Address: [address] [place] [address] Performed By: #### 2 4321-2 #### [facility] CLIA [id number] [address] [place] [address] [place] Epithelial cells LM.HPF (Urine sed) [#/Area] Moderate Normal [facility] Comment on above: Order Comment: Speci men Type: BLOOD SPECIMEN Ordering Facility: [facility] Address: [address] [place] [address] Performed By: #### 2 4321-2 #### [facility] CLIA [id number] [address] [place] [address] [place] Glucose Test strip (U) [Mass/Vol] Negative Normal Negative [facility] Comment on above: Order Comment: Speci men Type: BLOOD SPECIMEN Ordering Facility: [facility] Address: [address] [place] [address] Performed By: #### 2 4321-2 #### [facility] CLIA [id number] [address] [place] [address] [place] Hemoglobin Ql (U) 2+ Abnormal Negative [facility] Comment on above: Order Comment: Speci men Type: BLOOD SPECIMEN Ordering Facility: [facility] Address: [address] [place] [address] Performed By: #### 2 4321-2 #### [facility] CLIA [id number] [address] [place] [address] [place] Hyaline casts (Urine sed) [#/Area] 4-10 /LPF Abnormal 0 /LPF [facility] Comment on above: Order Comment: Speci men Type: BLOOD SPECIMEN Ordering Facility: [facility] Address: [address] [place] [address] Performed By: #### 2 1-2 #### [facility] CLIA [id number] [address] [place] [address] [place] Ketones Ql (U) Negative Normal Negative [facility] Comment on above: Order Comment: Speci men Type: BLOOD SPECIMEN Ordering Facility: [facility] Address: [address] [place] [address] Performed By: #### 2 4321-2 #### [facility] CLIA [id number] [address] [place] [address] [place] Leukocyte esterase Test strip Ql (U) 3+ Abnormal Negative [facility] Comment on above: Order Comment: Speci men Type: BLOOD SPECIMEN Ordering Facility: [facility] Address: [address] [place] [address] Performed By: #### 2 4321-2 #### [facility] CLIA [id number] [address] [place] [address] [place] Nitrite Ql (U) Negative Normal Negative [facility] Comment on above: Order Comment: Speci men Type: BLOOD SPECIMEN Ordering Facility: [facility] Address: [address] [place] [address] Performed By: #### 2 4321-2 #### [facility] CLIA [id number] [address] [place] [address] [place] pH (U) 6.0 [pH] Normal <8.5 [facility] Comment on above: Order Comment: Speci men Type: BLOOD SPECIMEN Ordering Facility: [facility] Address: [address] [place] [address] Performed By: #### 2 4321-2 #### [facility] [id number] [address] [place] [address] [place] Protein (U) [Mass/Vol] 2+ Abnormal Negative [facility] Comment on above: Order Comment: Speci men Type: BLOOD SPECIMEN Ordering Facility: [facility] Address: [address] [place] [address] Performed By: #### 2 4321-2 #### [facility] [id number] [address] [place] [address] [place] RBC LM.HPF (Urine sed) [#/Area] /[HPF] Abnormal 0-2 /HPF [facility] Comment on above: Order Comment: Speci men Type: BLOOD SPECIMEN Ordering Facility: [facility] Address: [address] [place] [address] Performed By: #### 2 4321-2 #### [facility] [id number] [address] [place] [address] [place] Specific gravity (U) [Rel density] 1.011 Normal 1.005-1.030 [facility] Comment on above: Order Comment: Speci men Type: BLOOD SPECIMEN Ordering Facility: [facility] Address: [address] [place] [address] Performed By: #### 2 4321-2 #### [facility] [id number] [address] [place] [address] STATES [facility] Urobilinogen Ql (U) 0.2 EU/dL Normal 0.2-1.0 EU/dL [facility] Comment on above: Order Comment: Speci men Type: BLOOD SPECIMEN Ordering Facility: [facility] Address: [address] [place] [address] Performed By: #### 2 4321-2 #### [facility] [id number] [address] [place] [address] [place] WBC LM.HPF (Urine sed) [#/Area] /[HPF] Abnormal 0-5 /HPF [facility] Comment on above: Order Comment: Speci men Type: BLOOD SPECIMEN Ordering Facility: [facility] Address: [address] [place] [address] Performed By: #### 2 4321-2 #### [facility] [id number] [address] [place] [address] OF [place] CNPKarla [facility]-20[facility] CLINT VILLAR ([id number]) 1940 M Date Time Provider Department 06/28/24 [...] to ER for severe sx's as discussed. WOODY Kohler Victor H, MD 06/28/2024 4:01 PM [...] [N39.0] Order(s):URINALYSIS, WITH MICROSCOPIC [SQUAWMIC] Order #: [id number] FUTURE BACTERIAL CULTURE, URINE [SQURCUL] Order #: [id number] FUTURE Prescriptions as of 06/28/2024 - pantoprazole [...] 30-34.9 [E66.811] (more content not included)... Normal [facility] CNPNon 06-23-2024 CNPN Telephone (TYE) -- CLINT VILLAR ([id number]) 1940 Date Time Provider Department 06/23/24 JOHAN [...] [D64.9] 12/27/2021 Positive colorectal cancer screening using [place]*01/03/2023 02/26/2024 Elevated PSA [R97.20] 01/09/2023 New onset [...] Status:Closed by Kristofer MATTHEW on 06/23/[address] [facility] CT UROGRAM WO/W IVCONon 02-1 CT UROGRAM WO/W IVCON * * *Final Report* * * DATE OF EXAM: Jun 21 2024 11:15AM [facility] 0560 - CT UROGRAM WO/W IVCON [...] Resolved hydronephrosis status post ureteral stent placement. Membership Sales Manager: [facility] Transcribe Date/Time: Jun 26 2024 7:20P Dictated by : JANIA SALGUERO MD This examination was interpreted and the report reviewed and electronically signed by: JANIA SALGUERO MD on Jun 26 2024 7:35PM EST [id number] [facility] CNOVon 06-16-2024 CNOV Office Visit (UCWSTR ) -- CLINT VILLAR ([id number]) 1940 M Date Time Provider Department 06/16/24 3:15 PM VALENTINA BERRY [facility] During your visit today, we recorded the following information about you: Temperature Pulse Respiration Blood pressure 98.2 degrees 58/minute 18/minute 114/61 Weight 89.5 kg Valentina Berry PA-C 06/16/2024 3:24 PM Signed This note was created using Italia Onlineriter. Subjective Clint Salmeron Jian is a 83 [...] Diagnosis:Acute URI [J06.9] Order(s):INFLUENZA AANDB MOLECULAR (POC) [5196397] Order #: [id number]. #:[id number] 2-LAB Prescriptions as of 06/16/2024 - nitrofurantoin [...] daily. Probl (more content not included)... Normal [facility] INFLUENZA A&B MOLECULAR (POC )on 06-16-2024 Flu A (POCT) Negative Negative [facility] Flu B (POCT) Negative Negative [facility] Procedural Control Valid [facility] Location:[facility], [place], [address] [facility] POINT OF CARE [facility] CNOVSPon 05-28-2024 CNOVSP Visit (SP) Office (H EMAWS) -- JIANCLINT Salmeron ([id number]) 1940 Date Time Provider Department 05/28/24 8:30 [...] and neg (more content not included)... Normal [facility] Tray 05-28-2024 [facility] Telephone ([id number]) -- CLINT VILLAR ([id number]) 1940 Date Time Provider Department 05/28/24 JACOB JENKINS [id number] During your visit today, we recorded the following information about you: Jacob Jnekins APRN.CNP 05/28/2024 3:08 PM Signed Discussed with [...] [D64.9] 12/27/2021 Positive colorectal cancer screening using [place]*01/03/2023 02/26/2024 Elevated PSA [R97.20] 01/09/2023 New onset [...] Encounter Status:Closed by JACOB JENKINS on 05/28/24 [facility] Prostate specific Ag [Mass/Vol] 3.05 ng/mL High <2.60 [facility] Comment on above: Order Comment: Speci men Type: BLOOD SPECIMENOrdering Facility: [facility] Address: [address] [place] [address] Result Comment: Katharina zuniga PSA test methodology [...] Med 2003,349:335-42. Performed By: #### 2 857-1 ####[facility] LABCLIA [id number] [facility] [id number] [place] [address] [facility] Tray 05-27-2024 [facility] Telephone ([id number]) -- CLINT VILLAR ([id number]) 1940 M Date Time Provider Department 05/27/24 JACOB JENKINS [id number] During your visit today, we recorded the following information about you: Jacob Jenkins APRN.[employer] 05/27/2024 3:16 PM Signed Left VM for [...] [D64.9] 12/27/2021 Positive colorectal cancer screening using [place]*01/03/2023 02/26/2024 Elevated PSA [R97.20] 01/09/2023 New onset [...] Encounter Status:Closed by JACOB JENKINS on 05/27/24 [facility] Bacteria Ur Culton Bacteria identified Cx Nom [...] , Intermediate >32 , Resistant >[address] [facility] Comment on above: Performed By: #### 6 30-4 ####[facility] LABCLIA [id number] [facility] [id number] [place], [place] [id number] [facility] CNOVon 05-21-2024 CNOV Office Visit (INTMWS ) -- JIANCLINT ([id number]) 1940 M Date Time Provider Department 05/21/24 8:20 AM CODY CARRINGTON INTMWS During your visit today, we recorded the following information about you: Temperature Pulse Respiration Blood pressure 97.3 degrees 49/minute 14/minute 116/64 Weight 86.4 kg Cody Carrington MD 05/21/2024 9:00 AM Signed This note was created using [employer] Onlineriter. Subjective Clint Villar is a 83 year [...] (POCT) Negativ (more content not included)... Normal [facility] UA DIP, URINE (POC)on 2024 BILIRUBIN UA (POCT) Negative Negative [facility] CLARITY UA (POCT) Clear [facility] COLOR UA (POCT) Yellow [facility] GLUCOSE UA (POCT) Negative Negative mg/dL [facility] Hemoglobin Ql (U) Small Abnormal Negative [facility] Interpretation and review of laboratory results Abnormal [facility] KETONE UA (POCT) Negative Negative mg/dL [facility] LEUKOCYTES UA (POCT) Large Abnormal [facility] NITRITE UA (POCT) Negative Negative [facility] PH UA (POCT) 6.5 4.5 - 8.0 [facility] Protein Ql (U) 30 mg/dL Abnormal Negative [facility] SPECIFIC GRAVITY UA (POCT) 1.015 1.005 - 1.030 [facility] UROBILINOGEN UA (POCT) 0.2 Normal E.U./dL [facility] Location:[facility], [address] [facility], [place], [address] [facility] POINT OF CARE [facility] Tray 05-06-2024 [facility] Telephone (URCANT) -- CLINT VILLAR ([id number]) 1940 M Date Time Provider Department 05/06/24 RADHA LARSEN During your visit today, we recorded the following information about you: Shanthi Solis 05/06/2024 3:09 PM Signed Patient is leaving for [place] 08/01/24, I spoke with the today and she is asking if the stents will be removed prior to their vacation. They currently are scheduled for the CT Urogram 06/21/24 and an established follow up 07/15/24. Please advise, thank you. Allergies As of Date: 05/06/2024 Noted Allergy Reaction LATEX 03/15/2024 2 - Rash Comments: Rash to skin Date Reviewed: 04/26/2024 Reviewed by: Leela Drake, HOSPITAL ADMINISTRATIVE ASSISTANT.[employer]GER - Fully Assessed Reason for Visit: Patient [...] [D64.9] 12/27/2021 Positive colorectal cancer screening using [place]*01/03/2023 02/26/2024 Elevated PSA [R97.20] 01/09/2023 New onset [...] Encounter Status:Closed by SHANTHI SOLIS on 05/07/24 [facility] Tray [facility]-29-2024 [facility] -- CLINT VILLAR ([id number]) 1940 M Date Time Provider Department 04/29/24 [...] Fully Assessed Reason for Visit: Patient Question [8127] Order(s):ferrous sulfate 325 mg (65 mg iron) [...] [D64.9] 12/27/2021 Positive colorectal cancer screening using [place]*01/03/2023 02/26/2024 Elevated PSA [R97.20] 01/09/2023 New onset [...] ROSARIO ABBOTT (more content not included)... Normal [facility] Cardiology Visit Reporton Cardiology Visit Report [facility] [address] [place] [address] OFFICE VISIT Date of Service: 04/29/24 MR#: [id number] Acct: [id number] Name: CLINT VILLAR Rep #: [id number] : 1940 Provider: ASTER ulrich Age/Sex: 83/M Location: [facility] Status: Signed HPI HPI History of Present Illness Details: Pleasant 83-year-old white male here for a cardiovascular outpatient follow-up. Patient carries a history of paroxysmal atrial fibs. He was evaluated back in June 2023 at [facility] where he was admitted. He was treated [...] 01, 2023 in the ambulatory setting at [facility]. No EKG was done but he was [...] NIBP Intake Visit Reasons: 6 M FU Blending Supervisor Required: No Is patient in pain?: No [...] (Reviewed 04/29/24 @ 10:24 by Jarek Perez DIRECTOR OF EMAIL MARKETING, DIRECTOR OF EMAIL MARKETING-C) History of shoulder surgery Family History Other Hyperlipidemia Hypertension Thyroid disorder Social History household members: spouse housing: house Smoking Status: Former smoker alcohol intake: never substance use type: does not use ROS Const Const: Positive for fatigue (Improving daily since UTI admission); Negative for weakness Eyes Eyes: Negative for change in vision (more content not included)... Normal [facility] Bacteria Ur Culton 4 Bacteria identified Cx Nom (U) ORGANISM ID: 1 <10,000 CFU/ml Enterococcus faecalis Insignificant colony count. No further workup. Cephalosporins, clindamycin, and TMP-SMX are not effective for the treatment of enterococcal infections. Normal [facility] Comment on above: Performed By: #### 6 30-4 ####[facility] LABCLIA [id number] DM[id number] [address] [place] Basic metabolic 2000 panelon 04-26-2024 Anion gap [Moles/Vol] 10 mmol/L Normal 8-15 [facility] Comment on above: Order Comment: Speci men Type: BLOOD SPECIMEN Ordering Facility: [facility] Address: [address] [place] [address] Performed By: #### 2 4321-2 #### [facility] CLIA [id number] [address] [place] [address] [place] Calcium [Mass/Vol] 9.4 mg/dL Normal 8.5-10.2 [facility] Comment on above: Order Comment: Speci men Type: BLOOD SPECIMEN Ordering Facility: [facility] Address: [address] [place] [address] Performed By: #### 2 4321-2 #### [facility] CLIA [id number] [address] [place] [address] [place] Chloride [Moles/Vol] 101 mmol/L Normal 98-107 [facility] Comment on above: Order Comment: Speci men Type: BLOOD SPECIMEN Ordering Facility: [facility] Address: [address] [place] [address] Performed By: #### 2 4321-2 #### [facility] CLIA [id number] [address] [place] [address] [place] CO2 [Moles/Vol] 26 mmol/L Normal 22-30 [facility] Comment on above: Order Comment: Speci men Type: BLOOD SPECIMEN Ordering Facility: [facility] Address: [address] [place] [address] Performed By: #### 2 4321-2 #### [facility] [id number] [address] [place] [address] [place] Creatinine [Mass/Vol] 1.33 mg/dL High 0.73-1.22 [facility] Comment on above: Order Comment: Franny zavala Type: BLOOD SPECIMEN Ordering Facility: [facility] Address: [address] [place] [address] Performed By: #### 2 4321-2 #### [facility] [id number] [address] [place] [address] [place] Creatinine and Glomerular filtration rate.predicted panel (S/P/Bld) 54 mL/min/1.73m??? Low >=60 [facility] Comment on above: Order Comment: Franny zavala Type: BLOOD SPECIMEN Ordering Facility: [facility] Address: [address] [place] [address] Result Comment: Karin mated Glomerular Filtration Rate [...] GFR. Performed By: #### 2 4321-2 #### [facility] [id number] [address] [place] [address] [place] Glucose [Mass/Vol] 104 mg/dL High 74-99 [facility] Comment on above: Order Comment: Franny zavala Type: BLOOD SPECIMEN Ordering Facility: [facility] Address: [address] [place] [address] Result Comment: The [place] Diabetes Association (ADA) provides guidance for cutoff [...] Standards of Medical Care in Diabetes 2016, [place] Diabetes Association. Diabetes Care. 2016.39(Suppl 1). Performed By: #### 2 4321-2 #### [facility] CLIA [id number] [address] [place] [address] [place] Potassium [Moles/Vol] 3.9 mmol/L Normal 3.7-5.1 [facility] Comment on above: Order Comment: Franny zavala Type: BLOOD SPECIMEN Ordering Facility: [facility] Address: [address] [place] [address] Performed By: #### 2 4321-2 #### [facility] [id number] [address] [place] [address] [place] Sodium [Moles/Vol] 137 mmol/L Normal 136-144 [facility] Comment on above: Order Comment: Franny zavala Type: BLOOD SPECIMEN Ordering Facility: [facility] Address: [address] [place] [address] Performed By: #### 2 4321-2 #### [facility] [id number] [address] [place] [address] [place] Urea nitrogen [Mass/Vol] 23 mg/dL Normal 9-24 [facility] Comment on above: Order Comment: Franny zavala Type: BLOOD SPECIMEN Ordering Facility: [facility] Address: [address] [place] [address] Performed By: #### 2 4321-2 #### [facility] [id number] [address] [place] [address] [place] CBC panel Auto (Bld)on 04-26 Erythrocyte distribution width (RBC) [Ratio] 15.6 % High 11.5-15.0 [facility] Comment on above: Order Comment: Speci men Type: BLOOD SPECIMEN Ordering Facility: [facility] Address: [address] [place] [address] Performed By: #### 2 4321-2 #### [facility] CLIA [id number] [address] [place] [address] [place] Hematocrit (Bld) [Volume fraction] 30.6 % Low 39.0-51.0 [facility] Comment on above: Order Comment: Speci men Type: BLOOD SPECIMEN Ordering Facility: [facility] Address: [address] [place] [address] Performed By: #### 2 4321-2 #### [facility] CLIA [id number] [address] [place] [address] [place] Hemoglobin (Bld) [Mass/Vol] 10.3 g/dL Low 13.0-17.0 [facility] Comment on above: Order Comment: Speci men Type: BLOOD SPECIMEN Ordering Facility: [facility] Address: [address] [place] [address] Performed By: #### 2 4321-2 #### [facility] CLIA [id number] [address] [place] [address] [place] MCH (RBC) [Entitic mass] 32.8 pg Normal 26.0-34.0 [facility] Comment on above: Order Comment: Speci men Type: BLOOD SPECIMEN Ordering Facility: [facility] Address: [address] [place] [address] Performed By: #### 2 4321-2 #### [facility] CLIA [id number] [address] [place] [address] [place] MCHC (RBC) [Mass/Vol] 33.7 g/dL Normal 30.5-36.0 [facility] Comment on above: Order Comment: Speci men Type: BLOOD SPECIMEN Ordering Facility: [facility] Address: [address] [place] [address] Performed By: #### 2 4321-2 #### [facility] CLIA [id number] [address] [place] [address] [place] MCV (RBC) [Entitic vol] 97.5 fL Normal 80.0-100.0 [facility] Comment on above: Order Comment: Speci men Type: BLOOD SPECIMEN Ordering Facility: [facility] Address: [address] [place] [address] Performed By: #### 2 4321-2 #### [facility] CLIA [id number] [address] [place] [address] [place] Nucleated RBC (Bld) [#/Vol] 10*3/uL Normal <0.01 [facility] Comment on above: Order Comment: Speci men Type: BLOOD SPECIMEN Ordering Facility: [facility] Address: [address] [place] [address] Performed By: #### 2 4321-2 #### [facility] CLIA [id number] [address] [place] [address] [place] Platelet mean volume (Bld) [Entitic vol] 9.5 fL Normal 9.0-12.7 [facility] Comment on above: Order Comment: Speci men Type: BLOOD SPECIMEN Ordering Facility: [facility] Address: [address] [place] [address] Performed By: #### 2 4321-2 #### [facility] CLIA [id number] [address] [place] [address] [place] Platelets (Bld) [#/Vol] 253 10*3/uL Normal 150-400 [facility] Comment on above: Order Comment: Speci men Type: BLOOD SPECIMEN Ordering Facility: [facility] Address: [address] [place], [place] [address] Performed By: #### 2 4321-2 #### [facility] CLIA [id number] [address] [place] [address] [place] RBC (Bld) [#/Vol] 3.14 10*6/uL Low 4.20-6.00 [facility] Comment on above: Order Comment: Speci men Type: BLOOD SPECIMEN Ordering Facility: [facility] Address: [address] [place] [address] Performed By: #### 2 4321-2 #### [facility] CLIA [id number] [address] [place] [address] OF [facility] WBC (Bld) [#/Vol] 7.86 10*3/uL Normal 3.70-11.00 [facility] Comment on above: Order Comment: Speci men Type: BLOOD SPECIMEN Ordering Facility: [facility] Address: [address] [place] [address] Performed By: #### 2 4321-2 #### [facility] CLIA [id number] [address] [place] [address] OF [place] CNOVon 04-26-2024 CNOV Office Visit (INTMWS ) -- JIAN,CLINT Salmeron ([id number]) 1940 M Date Time Provider Department 04/26/24 1:40 PM LEELA DRAKE INTMWS During your visit today, we recorded the following information about you: Temperature Pulse Respiration Blood pressure 97.9 degrees 59/minute 16/minute 126/74 Weight 86.5 kg Leela Drake, HOSPITAL ADMINISTRATIVE ASSISTANT.[employer] 04/26/2024 4:15 PM Signed CC: Patient presents with: Hospital F/U: [facility] d/c UTI HPI Clint Salmeron Jian is a 83 year old male who presents today for above. He was admitted to [facility] 04/16 to 04/18 for complicated UTI. 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 Anticoagulant long-term use 10/21/2023 PRIMARY FOLLOWS CURRENTLY, DUE TO SEE [facility] Arthritis At risk for stroke 10/21/2023 [...] atrial fibrillation (HCC) 06/23/2023 DUE TO SEE [facility] FOR AFIB, PRIMARY FOLLOWS CURRENTLY, DID SEE [facility] APPOINTMENT BUT DID NOT CARE FOR MD SO WILL NOT GO BACK Positive colorectal cancer screening using Cologuard test 01/03/2023 Primary hypertension PRIMARY FOLLOWS Prostate cancer (HCC) 02/13/2024 DR LARSEN AND DR AGUILAR, AT [facility] IN [place] 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 Normal [facility] Urinalysis complete panel (U )on 04-26-2024 Bacteria LM.HPF (Urine sed) [#/Area] Negative Normal Negative [facility] Comment on above: Order Comment: Speci men Type: URINE SPECIMEN Ordering Facility: [facility] Address: [address] [place] [address] Performed By: #### 2 4356-8 #### [facility] CLIA [id number] [address] [place] [address] [place] Bilirubin Ql (U) Negative Normal Negative [facility] Comment on above: Order Comment: Speci men Type: URINE SPECIMEN Ordering Facility: [facility] Address: [address] [place] [address] Performed By: #### 2 4356-8 #### [facility] CLIA [id number] [address] [place] [address] [place] Clarity (Unsp spec) Cloudy Abnormal Clear [facility] Comment on above: Order Comment: Speci men Type: URINE SPECIMEN Ordering Facility: [facility] Address: [address] [place] [address] Performed By: #### 2 4356-8 #### [facility] CLIA [id number] [address] [place] [address] [place] Color (U) Yellow Normal Yellow [facility] Comment on above: Order Comment: Speci men Type: URINE SPECIMEN Ordering Facility: [facility] Address: [address] [place] [address] Performed By: #### 2 4356-8 #### [facility] CLIA [id number] [address] [place] [address] [place] Epithelial cells LM.HPF (Urine sed) [#/Area] None Seen Normal [facility] Comment on above: Order Comment: Speci men Type: URINE SPECIMEN Ordering Facility: [facility] Address: [address] [place] [address] Performed By: #### 2 4356-8 #### [facility] CLIA [id number] [address] [place] [address] [place] Glucose Test strip (U) [Mass/Vol] Negative Normal Negative [facility] Comment on above: Order Comment: Speci men Type: URINE SPECIMEN Ordering Facility: [facility] Address: [address] [place] [address] Performed By: #### 2 4356-8 #### [facility] CLIA [id number] [address] [place] [address] [place] Hemoglobin Ql (U) 2+ Abnormal Negative [facility] Comment on above: Order Comment: Speci men Type: URINE SPECIMEN Ordering Facility: [facility] Address: [address] [place] [address] Performed By: #### 2 4356-8 #### [facility] CLIA [id number] [address] [place] [address] [place] Hyaline casts (Urine sed) [#/Area] 1-3 /LPF Abnormal 0 /LPF [facility] Comment on above: Order Comment: Speci men Type: URINE SPECIMEN Ordering Facility: [facility] Address: [address] [place] [address] Performed By: #### 2 4356-8 #### [facility] CLIA [id number] [address] [place] [address] [place] Ketones Ql (U) Negative Normal Negative [facility] Comment on above: Order Comment: Speci men Type: URINE SPECIMEN Ordering Facility: [facility] Address: [address] [place] [address] Performed By: #### 2 4356-8 #### [facility] CLIA [id number] [address] [place] [address] [place] Leukocyte esterase Test strip Ql (U) 3+ Abnormal Negative [facility] Comment on above: Order Comment: Speci men Type: URINE SPECIMEN Ordering Facility: [facility] Address: [address] [place] [address] Performed By: #### 2 4356-8 #### [facility] CLIA [id number] [address] [place] [address] [place] Nitrite Ql (U) Negative Normal Negative [facility] Comment on above: Order Comment: Speci men Type: URINE SPECIMEN Ordering Facility: [facility] Address: [address] [place] [address] Performed By: #### 2 4356-8 #### [facility] CLIA [id number] [address] [place] [address] [place] pH (U) 7.0 [pH] Normal <8.5 [facility] Comment on above: Order Comment: Speci men Type: URINE SPECIMEN Ordering Facility: [facility] Address: [address] [place] [address] Performed By: #### 2 4356-8 #### [facility] CLIA [id number] [address] [place] [address] [place] Protein (U) [Mass/Vol] 1+ Abnormal Negative [facility] Comment on above: Order Comment: Speci men Type: URINE SPECIMEN Ordering Facility: [facility] Address: [address] [place] [address] Performed By: #### 2 4356-8 #### [facility] CLIA [id number] [address] [place] [address] [place] RBC LM.HPF (Urine sed) [#/Area] /[HPF] Abnormal 0-2 /HPF [facility] Comment on above: Order Comment: Speci men Type: URINE SPECIMEN Ordering Facility: [facility] Address: [address] [place] [address] Performed By: #### 2 4356-8 #### [facility] CLIA [id number] [address] [place] [address] [place] Specific gravity (U) [Rel density] 1.010 Normal 1.005-1.030 [facility] Comment on above: Order Comment: Speci men Type: URINE SPECIMEN Ordering Facility: [facility] Address: [address] [place] [address] Performed By: #### 2 4356-8 #### [facility] CLIA [id number] [address] [place] [address] [place] Urobilinogen Ql (U) 0.2 EU/dL Normal 0.2-1.0 EU/dL [facility] Comment on above: Order Comment: Speci men Type: URINE SPECIMEN Ordering Facility: [facility] Address: [address] [place] [address] Performed By: #### 2 4356-8 #### [facility] CLIA [id number] [address] [place] [address] [place] WBC LM.HPF (Urine sed) [#/Area] /[HPF] Abnormal 0-5 /HPF [facility] Comment on above: Order Comment: Speci men Type: URINE SPECIMEN Ordering Facility: [facility] Address: [address] [place] [address] Performed By: #### 2 4356-8 #### [facility] CLIA [id number] [address] [place] [address] [place] Basic Metabolic Profile (BMP )on 04-25-2024 BUN Normal 7-18 [facility] Comment on above: Result Comment: Canc elled via OM: Order cancelled - Patient discharged Performed By: #### L 100.0100, L500.2500 #### [facility] [address] [place], [address] BUN/CRE Normal 10-20 [facility] Comment on above: Result Comment: Canc elled via OM: Order cancelled - Patient discharged Performed By: #### L 100.0100, L500.2500 #### [facility] [address] [place], [address] CA,Total Normal 8.5-10.1 [facility] Comment on above: Result Comment: Canc elled via OM: Order cancelled - Patient discharged Performed By: #### L 100.0100, L500.2500 #### [facility] [address] [place], [address] CL Normal 98-107 [facility] Comment on above: Result Comment: Canc elled via OM: Order cancelled - Patient discharged Performed By: #### L 100.0100, L500.2500 #### [facility] [address] [place], [address] CO2 Normal 21.0-32.0 [facility] Comment on above: Result Comment: Canc elled via OM: Order cancelled - Patient discharged Performed By: #### L 100.0100, L500.2500 #### [facility] [address] [place], [address] CREAT,SERUM Normal 0.70-1.30 [facility] Comment on above: Result Comment: Canc elled via OM: Order cancelled - Patient discharged Performed By: #### L 100.0100, L500.2500 #### [facility] [address] [place], [address] EST GFR Normal >60 [facility] Comment on above: Result Comment: Canc elled via OM: Order cancelled - Patient discharged Performed By: #### L 100.0100, L500.2500 #### [facility] [address] [place], [address] EST GFR - AA Normal >60 [facility] Comment on above: Result Comment: Canc elled via OM: Order cancelled - Patient discharged Performed By: #### L 100.0100, L500.2500 #### [facility] [address] [place], [address] GAP Normal 5-15 [facility] Comment on above: Result Comment: Canc elled via OM: Order cancelled - Patient discharged Performed By: #### L 100.0100, L500.2500 #### [facility] [address] [place], [address] GLU Normal 74-106 [facility] Comment on above: Result Comment: Canc elled via OM: Order cancelled - Patient discharged Performed By: #### L 100.0100, L500.2500 #### [facility] [address] [place], [address] Potassium Normal 3.5-5.1 [facility] Comment on above: Result Comment: Canc elled via OM: Order cancelled - Patient discharged Performed By: #### L 100.0100, L500.2500 #### [facility] [address] [place], [address] Basic Metabolic Profile (BMP) Normal 136-145 [facility] Comment on above: Result Comment: Canc elled via OM: Order cancelled - Patient discharged Performed By: #### L 100.0100, L500.2500 #### [facility] [address] [place], [address] CBC W/Diff, Automatedon 12-2 Absolute Neut Normal 2.0-7.7 [facility] Comment on above: Result Comment: Canc elled via OM: Order cancelled - Patient discharged Performed By: #### L 100.0100, L500.2500 #### [facility] [address] [place], [address] HCT Normal 40-54 [facility] Comment on above: Result Comment: Canc elled via OM: Order cancelled - Patient discharged Performed By: #### L 100.0100, L500.2500 #### [facility] [address] [place], [address] HGB Normal 13.0-16.5 [facility] Comment on above: Result Comment: Canc elled via OM: Order cancelled - Patient discharged Performed By: #### L 100.0100, L500.2500 #### [facility] [address] [place], [address] MCH Normal 27.0-32.0 [facility] Comment on above: Result Comment: Canc elled via OM: Order cancelled - Patient discharged Performed By: #### L 100.0100, L500.2500 #### [facility] [address] [place], [address] MCHC Normal 32-36 [facility] Comment on above: Result Comment: Canc elled via OM: Order cancelled - Patient discharged Performed By: #### L 100.0100, L500.2500 #### [facility] [address] [place], [address] MCV Normal 80-94 [facility] Comment on above: Result Comment: Canc elled via OM: Order cancelled - Patient discharged Performed By: #### L 100.0100, L500.2500 #### [facility] [address] [place], [address] NEUT% Normal 47-70 [facility] Comment on above: Result Comment: Canc elled via OM: Order cancelled - Patient discharged Performed By: #### L 100.0100, L500.2500 #### [facility] [address] [place], [address] PLT Normal 150-450 [facility] Comment on above: Result Comment: Canc elled via OM: Order cancelled - Patient discharged Performed By: #### L 100.0100, L500.2500 #### [facility] [address] [place], [address] RBC Normal 4.6-6.2 [facility] Comment on above: Result Comment: Canc elled via OM: Order cancelled - Patient discharged Performed By: #### L 100.0100, L500.2500 #### [facility] [address] [place], [address] RDW CV Normal 11.6-14.6 [facility] Comment on above: Result Comment: Canc elled via OM: Order cancelled - Patient discharged Performed By: #### L 100.0100, L500.2500 #### [facility] [address] [place], [address] RDW SD Normal 35.1-43.9 [facility] Comment on above: Result Comment: Canc elled via OM: Order cancelled - Patient discharged Performed By: #### L 100.0100, L500.2500 #### [facility] [address] [place], [address] WBC Normal 4.4-11.0 [facility] Comment on above: Result Comment: Canc elled via OM: Order cancelled - Patient discharged Performed By: #### L 100.0100, L500.2500 #### [facility] [address] [place], [address] Basic Metabolic Profile (BMP )on 04-24-2024 BUN Normal 7-18 [facility] Comment on above: Result Comment: Canc elled via OM: Order cancelled - Patient discharged Performed By: #### L 500.2500, L100.0100 #### [facility] [address] [place], [address] BUN/CRE Normal 10-20 [facility] Comment on above: Result Comment: Canc elled via OM: Order cancelled - Patient discharged Performed By: #### L 500.2500, L100.0100 #### [facility] [address] [place], [address] CA,Total Normal 8.5-10.1 [facility] Comment on above: Result Comment: Canc elled via OM: Order cancelled - Patient discharged Performed By: #### L 500.2500, L100.0100 #### [facility] [address] [place], [address] CL Normal 98-107 [facility] Comment on above: Result Comment: Canc elled via OM: Order cancelled - Patient discharged Performed By: #### L 500.2500, L100.0100 #### [facility] [address] [place], [address] CO2 Normal 21.0-32.0 [facility] Comment on above: Result Comment: Canc elled via OM: Order cancelled - Patient discharged Performed By: #### L 500.2500, L100.0100 #### [facility] [address] [place], [address] CREAT,SERUM Normal 0.70-1.30 [facility] Comment on above: Result Comment: Canc elled via OM: Order cancelled - Patient discharged Performed By: #### L 500.2500, L100.0100 #### [facility] [address] [place], [address] EST GFR Normal >60 [facility] Comment on above: Result Comment: Canc elled via OM: Order cancelled - Patient discharged Performed By: #### L 500.2500, L100.0100 #### [facility] [address] [place], [address] EST GFR - AA Normal >60 [facility] Comment on above: Result Comment: Canc elled via OM: Order cancelled - Patient discharged Performed By: #### L 500.2500, L100.0100 #### [facility] [address] [place], [address] GAP Normal 5-15 [facility] Comment on above: Result Comment: Canc elled via OM: Order cancelled - Patient discharged Performed By: #### L 500.2500, L100.0100 #### [facility] [address] [place], [address] GLU Normal 74-106 [facility] Comment on above: Result Comment: Canc elled via OM: Order cancelled - Patient discharged Performed By: #### L 500.2500, L100.0100 #### [facility] [address] [place], [address] Potassium Normal 3.5-5.1 [facility] Comment on above: Result Comment: Canc elled via OM: Order cancelled - Patient discharged Performed By: #### L 500.2500, L100.0100 #### [facility] [address] [place], [address] Basic Metabolic Profile (BMP) Normal 136-145 [facility] Comment on above: Result Comment: Canc elled via OM: Order cancelled - Patient discharged Performed By: #### L 500.2500, L100.0100 #### [facility] [address] [place], [address] CBC W/Diff, Automatedon 12-2 Absolute Neut Normal 2.0-7.7 [facility] Comment on above: Result Comment: Canc elled via OM: Order cancelled - Patient discharged Performed By: #### L 500.2500, L100.0100 #### [facility] [address] [place], [address] HCT Normal 40-54 [facility] Comment on above: Result Comment: Canc elled via OM: Order cancelled - Patient discharged Performed By: #### L 500.2500, L100.0100 #### [facility] [address] [place], [address] HGB Normal 13.0-16.5 [facility] Comment on above: Result Comment: Canc elled via OM: Order cancelled - Patient discharged Performed By: #### L 500.2500, L100.0100 #### [facility] [address] [place], [address] MCH Normal 27.0-32.0 [facility] Comment on above: Result Comment: Canc elled via OM: Order cancelled - Patient discharged Performed By: #### L 500.2500, L100.0100 #### [facility] [address] [place], [address] MCHC Normal 32-36 [facility] Comment on above: Result Comment: Canc elled via OM: Order cancelled - Patient discharged Performed By: #### L 500.2500, L100.0100 #### [facility] [address] [place], [address] MCV Normal 80-94 [facility] Comment on above: Result Comment: Canc elled via OM: Order cancelled - Patient discharged Performed By: #### L 500.2500, L100.0100 #### [facility] [address] [place], [address] NEUT% Normal 47-70 [facility] Comment on above: Result Comment: Canc elled via OM: Order cancelled - Patient discharged Performed By: #### L 500.2500, L100.0100 #### [facility] [address] [place], [address] PLT Normal 150-450 [facility] Comment on above: Result Comment: Canc elled via OM: Order cancelled - Patient discharged Performed By: #### L 500.2500, L100.0100 #### [facility] [address] [place], [address] RBC Normal 4.6-6.2 [facility] Comment on above: Result Comment: Canc elled via OM: Order cancelled - Patient discharged Performed By: #### L 500.2500, L100.0100 #### [facility] [address] [place], [address] RDW CV Normal 11.6-14.6 [facility] Comment on above: Result Comment: Canc elled via OM: Order cancelled - Patient discharged Performed By: #### L 500.2500, L100.0100 #### [facility] [address] [place], [address] RDW SD Normal 35.1-43.9 [facility] Comment on above: Result Comment: Canc elled via OM: Order cancelled - Patient discharged Performed By: #### L 500.2500, L100.0100 #### [facility] [address] [place], [address] WBC Normal 4.4-11.0 [facility] Comment on above: Result Comment: Canc elled via OM: Order cancelled - Patient discharged Performed By: #### L 500.2500, L100.0100 #### [facility] [address] [place], [address] Basic Metabolic Profile (BMP )on 04-23-2024 BUN Normal -18 [facility] Comment on above: Result Comment: Canc elled via OM: Order cancelled - Patient discharged Performed By: #### L 100.0100, L500.2500 #### [facility] [address] [place], [address] BUN/CRE Normal -20 [facility] Comment on above: Result Comment: Canc elled via OM: Order cancelled - Patient discharged Performed By: #### L 100.0100, L500.2500 #### [facility] [address] [place], [address] CA,Total Normal 8.5-10.1 [facility] Comment on above: Result Comment: Canc elled via OM: Order cancelled - Patient discharged Performed By: #### L 100.0100, L500.2500 #### [facility] [address] [place], [address] CL Normal 98-107 [facility] Comment on above: Result Comment: Canc elled via OM: Order cancelled - Patient discharged Performed By: #### L 100.0100, L500.2500 #### [facility] [address] [place], [address] CO2 Normal 21.0-32.0 [facility] Comment on above: Result Comment: Canc elled via OM: Order cancelled - Patient discharged Performed By: #### L 100.0100, L500.2500 #### [facility] [address] [place], [address] CREAT,SERUM Normal 0.70-1.30 [facility] Comment on above: Result Comment: Canc elled via OM: Order cancelled - Patient discharged Performed By: #### L 100.0100, L500.2500 #### [facility] [address] [place], [address] EST GFR Normal >60 [facility] Comment on above: Result Comment: Canc elled via OM: Order cancelled - Patient discharged Performed By: #### L 100.0100, L500.2500 #### [facility] [address] [place], [address] EST GFR - AA Normal >60 [facility] Comment on above: Result Comment: Canc elled via OM: Order cancelled - Patient discharged Performed By: #### L 100.0100, L500.2500 #### [facility] [address] [place], [address] GAP Normal 5-15 [facility] Comment on above: Result Comment: Canc elled via OM: Order cancelled - Patient discharged Performed By: #### L 100.0100, L500.2500 #### [facility] [address] [place], [address] GLU Normal 74-106 [facility] Comment on above: Result Comment: Canc elled via OM: Order cancelled - Patient discharged Performed By: #### L 100.0100, L500.2500 #### [facility] [address] [place], [address] Potassium Normal 3.5-5.1 [facility] Comment on above: Result Comment: Canc elled via OM: Order cancelled - Patient discharged Performed By: #### L 100.0100, L500.2500 #### [facility] [address] [place], [address] Basic Metabolic Profile (BMP) Normal 136-145 [facility] Comment on above: Result Comment: Canc elled via OM: Order cancelled - Patient discharged Performed By: #### L 100.0100, L500.2500 #### [facility] [address] [place], [address] CBC W/Diff, Automatedon 12-2 0-2023 Absolute Neut Normal 2.0-7.7 [facility] Comment on above: Result Comment: Canc elled via OM: Order cancelled - Patient discharged Performed By: #### L 100.0100, L500.2500 #### [facility] [address] [place], [address] HCT Normal 40-54 [facility] Comment on above: Result Comment: Canc elled via OM: Order cancelled - Patient discharged Performed By: #### L 100.0100, L500.2500 #### [facility] [address] [place], [address] HGB Normal 13.0-16.5 [facility] Comment on above: Result Comment: Canc elled via OM: Order cancelled - Patient discharged Performed By: #### L 100.0100, L500.2500 #### [facility] [address] [place], [address] MCH Normal 27.0-32.0 [facility] Comment on above: Result Comment: Canc elled via OM: Order cancelled - Patient discharged Performed By: #### L 100.0100, L500.2500 #### [facility] [address] [place], [address] MCHC Normal 32-36 [facility] Comment on above: Result Comment: Canc elled via OM: Order cancelled - Patient discharged Performed By: #### L 100.0100, L500.2500 #### [facility] [address] [place], [address] MCV Normal 80-94 [facility] Comment on above: Result Comment: Canc elled via OM: Order cancelled - Patient discharged Performed By: #### L 100.0100, L500.2500 #### [facility] [address] [place], [address] NEUT% Normal 47-70 [facility] Comment on above: Result Comment: Canc elled via OM: Order cancelled - Patient discharged Performed By: #### L 100.0100, L500.2500 #### [facility] [address] [place], [address] PLT Normal 150-450 [facility] Comment on above: Result Comment: Canc elled via OM: Order cancelled - Patient discharged Performed By: #### L 100.0100, L500.2500 #### [facility] [address] [place], [address] RBC Normal 4.6-6.2 [facility] Comment on above: Result Comment: Canc elled via OM: Order cancelled - Patient discharged Performed By: #### L 100.0100, L500.2500 #### [facility] [address] [place], [address] RDW CV Normal 11.6-14.6 [facility] Comment on above: Result Comment: Canc elled via OM: Order cancelled - Patient discharged Performed By: #### L 100.0100, L500.2500 #### [facility] [address] [place], [address] RDW SD Normal 35.1-43.9 [facility] Comment on above: Result Comment: Canc elled via OM: Order cancelled - Patient discharged Performed By: #### L 100.0100, L500.2500 #### [facility] [address] [place], [address] WBC Normal 4.4-11.0 [facility] Comment on above: Result Comment: Canc elled via OM: Order cancelled - Patient discharged Performed By: #### L 100.0100, L500.2500 #### [facility] [address] [place], [address] Basic Metabolic Profile (BMP )on 04-22-2024 BUN Normal 7-18 [facility] Comment on above: Result Comment: Canc elled via OM: Order cancelled - Patient discharged Performed By: #### L 100.0100, L500.2500 #### [facility] [address] [place], [address] BUN/CRE Normal 10-20 [facility] Comment on above: Result Comment: Canc elled via OM: Order cancelled - Patient discharged Performed By: #### L 100.0100, L500.2500 #### [facility] [address] [place], [address] CA,Total Normal 8.5-10.1 [facility] Comment on above: Result Comment: Canc elled via OM: Order cancelled - Patient discharged Performed By: #### L 100.0100, L500.2500 #### [facility] [address] [place], [address] CL Normal 98-107 [facility] Comment on above: Result Comment: Canc elled via OM: Order cancelled - Patient discharged Performed By: #### L 100.0100, L500.2500 #### [facility] [address] [place], [address] CO2 Normal 21.0-32.0 [facility] Comment on above: Result Comment: Canc elled via OM: Order cancelled - Patient discharged Performed By: #### L 100.0100, L500.2500 #### [facility] [address] [place], [address] CREAT,SERUM Normal 0.70-1.30 [facility] Comment on above: Result Comment: Canc elled via OM: Order cancelled - Patient discharged Performed By: #### L 100.0100, L500.2500 #### [facility] [address] [place], [address] EST GFR Normal >60 [facility] Comment on above: Result Comment: Canc elled via OM: Order cancelled - Patient discharged Performed By: #### L 100.0100, L500.2500 #### [facility] [address] [place], [address] EST GFR - AA Normal >60 [facility] Comment on above: Result Comment: Canc elled via OM: Order cancelled - Patient discharged Performed By: #### L 100.0100, L500.2500 #### [facility] [address] [place], [address] GAP Normal 5-15 [facility] Comment on above: Result Comment: Canc elled via OM: Order cancelled - Patient discharged Performed By: #### L 100.0100, L500.2500 #### [facility] [address] [place], [address] GLU Normal 74-106 [facility] Comment on above: Result Comment: Canc elled via OM: Order cancelled - Patient discharged Performed By: #### L 100.0100, L500.2500 #### [facility] [address] [place], [address] Potassium Normal 3.5-5.1 [facility] Comment on above: Result Comment: Canc elled via OM: Order cancelled - Patient discharged Performed By: #### L 100.0100, L500.2500 #### [facility] [address] [place], [address] Basic Metabolic Profile (BMP) Normal 136-145 [facility] Comment on above: Result Comment: Canc elled via OM: Order cancelled - Patient discharged Performed By: #### L 100.0100, L500.2500 #### [facility] [address] [place], [address] CBC W/Diff, Automatedon 12-1 Absolute Neut Normal 2.0-7.7 [facility] Comment on above: Result Comment: Canc elled via OM: Order cancelled - Patient discharged Performed By: #### L 100.0100, L500.2500 #### [facility] [address] [place], [address] HCT Normal 40-54 [facility] Comment on above: Result Comment: Canc elled via OM: Order cancelled - Patient discharged Performed By: #### L 100.0100, L500.2500 #### [facility] [address] [place], [address] HGB Normal 13.0-16.5 [facility] Comment on above: Result Comment: Canc elled via OM: Order cancelled - Patient discharged Performed By: #### L 100.0100, L500.2500 #### [facility] [address] [place], [address] MCH Normal 27.0-32.0 [facility] Comment on above: Result Comment: Canc elled via OM: Order cancelled - Patient discharged Performed By: #### L 100.0100, L500.2500 #### [facility] [address] [place], [address] MCHC Normal 32-36 [facility] Comment on above: Result Comment: Canc elled via OM: Order cancelled - Patient discharged Performed By: #### L 100.0100, L500.2500 #### [facility] [address] [place], [address] MCV Normal 80-94 [facility] Comment on above: Result Comment: Canc elled via OM: Order cancelled - Patient discharged Performed By: #### L 100.0100, L500.2500 #### [facility] [address] [place], [address] NEUT% Normal 47-70 [facility] Comment on above: Result Comment: Canc elled via OM: Order cancelled - Patient discharged Performed By: #### L 100.0100, L500.2500 #### [facility] [address] [place], [address] PLT Normal 150-450 [facility] Comment on above: Result Comment: Canc elled via OM: Order cancelled - Patient discharged Performed By: #### L 100.0100, L500.2500 #### [facility] [address] [place], [address] RBC Normal 4.6-6.2 [facility] Comment on above: Result Comment: Canc elled via OM: Order cancelled - Patient discharged Performed By: #### L 100.0100, L500.2500 #### [facility] [address] [place], [address] RDW CV Normal 11.6-14.6 [facility] Comment on above: Result Comment: Canc elled via OM: Order cancelled - Patient discharged Performed By: #### L 100.0100, L500.2500 #### [facility] [address] [place], [address] RDW SD Normal 35.1-43.9 [facility] Comment on above: Result Comment: Canc elled via OM: Order cancelled - Patient discharged Performed By: #### L 100.0100, L500.2500 #### [facility] [address] [place], [address] WBC Normal 4.4-11.0 [facility] Comment on above: Result Comment: Canc elled via OM: Order cancelled - Patient discharged Performed By: #### L 100.0100, L500.2500 #### [facility] [place], [address] [facility] 04-22-2024 CNPN Telephone (INTMWS) -- CLINT VILLAR ([id number]) 1940 M Date Time Provider Department 04/22/24 CODY CARRINGTON INTMWS During your visit today, we recorded the following information about you: Danielle Aviles LPN 04/22/2024 12:01 PM Signed called to let you know pt has a follow apt booked for tomorrow 04-23-24. Pt was to the [facility] ER 04-15-24 and then admitted and released 04-18-24. Pt doing okay weak from urinating a lot and not sleeping because of this. wants to make sure pt gets a urinalysis done and possible other blood work. Please review records from [facility]. Pt has been thru a lot with the prostate cancer and treatment, Pt's apt is 20 minutes for 04-23-24 and it is for a 6 month follow up. Please advise if there is any changes. RUBI Kennedy Helen E, LPN 04/22/2024 1:21 PM Signed [facility] ER report in Epic, printed for Dr. [...] [N39.0] Order(s):COMPLETE BLOOD COUNT [SQCBC] Order #: [id number] FUTURE BASIC METABOLIC PANEL [SQBMP] Order #: [id number] FUTURE URINALYSIS, WITH MICROSCOPIC [SQUAWMIC] Order #: [id number] FUTURE URINE CULTURE [SQURCUL] Order #: [id number] FUTURE Prescriptions as of 04/23/2024 - iv [...] 06/21/2021 Urinary (more content not included)... Normal [facility] Basic Metabolic Profile (BMP )on 04-21-2024 BUN Normal -18 [facility] Comment on above: Result Comment: Canc elled via OM: Order cancelled - Patient discharged Performed By: #### L 500.2500, L100.0100 #### [facility] [address] [place], [address] BUN/CRE Normal 10-20 [facility] Comment on above: Result Comment: Canc elled via OM: Order cancelled - Patient discharged Performed By: #### L 500.2500, L100.0100 #### [facility] [address] [place], [address] CA,Total Normal 8.5-10.1 [facility] Comment on above: Result Comment: Canc elled via OM: Order cancelled - Patient discharged Performed By: #### L 500.2500, L100.0100 #### [facility] [address] [place], [address] CL Normal 98-107 [facility] Comment on above: Result Comment: Canc elled via OM: Order cancelled - Patient discharged Performed By: #### L 500.2500, L100.0100 #### [facility] [address] [place], [address] CO2 Normal 21.0-32.0 [facility] Comment on above: Result Comment: Canc elled via OM: Order cancelled - Patient discharged Performed By: #### L 500.2500, L100.0100 #### [facility] [address] [place], [address] CREAT,SERUM Normal 0.70-1.30 [facility] Comment on above: Result Comment: Canc elled via OM: Order cancelled - Patient discharged Performed By: #### L 500.2500, L100.0100 #### [facility] [address] [place], [address] EST GFR Normal >60 [facility] Comment on above: Result Comment: Canc elled via OM: Order cancelled - Patient discharged Performed By: #### L 500.2500, L100.0100 #### [facility] [address] [place], [address] EST GFR - AA Normal >60 [facility] Comment on above: Result Comment: Canc elled via OM: Order cancelled - Patient discharged Performed By: #### L 500.2500, L100.0100 #### [facility] [address] [place], [address] GAP Normal 5-15 [facility] Comment on above: Result Comment: Canc elled via OM: Order cancelled - Patient discharged Performed By: #### L 500.2500, L100.0100 #### [facility] [address] [place], [address] GLU Normal 74-106 [facility] Comment on above: Result Comment: Canc elled via OM: Order cancelled - Patient discharged Performed By: #### L 500.2500, L100.0100 #### [facility] [address] [place], [address] Potassium Normal 3.5-5.1 [facility] Comment on above: Result Comment: Canc elled via OM: Order cancelled - Patient discharged Performed By: #### L 500.2500, L100.0100 #### [facility] [address] [place], [address] Basic Metabolic Profile (BMP) Normal 136-145 [facility] Comment on above: Result Comment: Canc elled via OM: Order cancelled - Patient discharged Performed By: #### L 500.2500, L100.0100 #### [facility] [address] [place], [address] CBC W/Diff, Automatedon 12- Absolute Neut Normal 2.0-7.7 [facility] Comment on above: Result Comment: Canc elled via OM: Order cancelled - Patient discharged Performed By: #### L 500.2500, L100.0100 #### [facility] [address] [place], [address] HCT Normal 40-54 [facility] Comment on above: Result Comment: Canc elled via OM: Order cancelled - Patient discharged Performed By: #### L 500.2500, L100.0100 #### [facility] [address] [place], [address] HGB Normal 13.0-16.5 [facility] Comment on above: Result Comment: Canc elled via OM: Order cancelled - Patient discharged Performed By: #### L 500.2500, L100.0100 #### [facility] [address] [place], [address] MCH Normal 27.0-32.0 [facility] Comment on above: Result Comment: Canc elled via OM: Order cancelled - Patient discharged Performed By: #### L 500.2500, L100.0100 #### [facility] [address] [place], [address] MCHC Normal 32-36 [facility] Comment on above: Result Comment: Canc elled via OM: Order cancelled - Patient discharged Performed By: #### L 500.2500, L100.0100 #### [facility] [address] [place], [address] MCV Normal 80-94 [facility] Comment on above: Result Comment: Canc elled via OM: Order cancelled - Patient discharged Performed By: #### L 500.2500, L100.0100 #### [facility] [address] [place], [address] NEUT% Normal 47-70 [facility] Comment on above: Result Comment: Canc elled via OM: Order cancelled - Patient discharged Performed By: #### L 500.2500, L100.0100 #### [facility] [address] [place], [address] PLT Normal 150-450 [facility] Comment on above: Result Comment: Canc elled via OM: Order cancelled - Patient discharged Performed By: #### L 500.2500, L100.0100 #### [facility] [address] [place], [address] RBC Normal 4.6-6.2 [facility] Comment on above: Result Comment: Canc elled via OM: Order cancelled - Patient discharged Performed By: #### L 500.2500, L100.0100 #### [facility] [address] [place], [address] RDW CV Normal 11.6-14.6 [facility] Comment on above: Result Comment: Canc elled via OM: Order cancelled - Patient discharged Performed By: #### L 500.2500, L100.0100 #### [facility] [address] [place], [address] RDW SD Normal 35.1-43.9 [facility] Comment on above: Result Comment: Canc elled via OM: Order cancelled - Patient discharged Performed By: #### L 500.2500, L100.0100 #### [facility] [address] [place], [address] WBC Normal 4.4-11.0 [facility] Comment on above: Result Comment: Canc elled via OM: Order cancelled - Patient discharged Performed By: #### L 500.2500, L100.0100 #### [facility] [address] [place], [address] Culture, Blood (WB)on 2023 CUB Blood cultures x2, f rom two different sites No growth in 5 days. Normal [facility] Comment on above: Performed By: #### L 100.0100, L500.2500 #### [facility] [address] [place], [address] Basic Metabolic Profile (BMP )on 04-20-2024 BUN Normal 7-18 [facility] Comment on above: Result Comment: Canc elled via OM: Order cancelled - Patient discharged Performed By: #### L 100.0100, L500.2500 #### [facility] [address] [place], [address] BUN/CRE Normal 10-20 [facility] Comment on above: Result Comment: Canc elled via OM: Order cancelled - Patient discharged Performed By: #### L 100.0100, L500.2500 #### [facility] [address] [place], [address] CA,Total Normal 8.5-10.1 [facility] Comment on above: Result Comment: Canc elled via OM: Order cancelled - Patient discharged Performed By: #### L 100.0100, L500.2500 #### [facility] [address] [place], [address] CL Normal 98-107 [facility] Comment on above: Result Comment: Canc elled via OM: Order cancelled - Patient discharged Performed By: #### L 100.0100, L500.2500 #### [facility] [address] [place], [address] CO2 Normal 21.0-32.0 [facility] Comment on above: Result Comment: Canc elled via OM: Order cancelled - Patient discharged Performed By: #### L 100.0100, L500.2500 #### [facility] [address] [place], [address] CREAT,SERUM Normal 0.70-1.30 [facility] Comment on above: Result Comment: Canc elled via OM: Order cancelled - Patient discharged Performed By: #### L 100.0100, L500.2500 #### [facility] [address] [place], [address] EST GFR Normal >60 [facility] Comment on above: Result Comment: Canc elled via OM: Order cancelled - Patient discharged Performed By: #### L 100.0100, L500.2500 #### [facility] [address] [place], [address] EST GFR - AA Normal >60 [facility] Comment on above: Result Comment: Canc elled via OM: Order cancelled - Patient discharged Performed By: #### L 100.0100, L500.2500 #### [facility] [address] [place], [address] GAP Normal 5-15 [facility] Comment on above: Result Comment: Canc elled via OM: Order cancelled - Patient discharged Performed By: #### L 100.0100, L500.2500 #### [facility] [address] [place], [address] GLU Normal 74-106 [facility] Comment on above: Result Comment: Canc elled via OM: Order cancelled - Patient discharged Performed By: #### L 100.0100, L500.2500 #### [facility] [address] [place], [address] Potassium Normal 3.5-5.1 [facility] Comment on above: Result Comment: Canc elled via OM: Order cancelled - Patient discharged Performed By: #### L 100.0100, L500.2500 #### [facility] [address] [place], [address] Basic Metabolic Profile (BMP) Normal 136-145 [facility] Comment on above: Result Comment: Canc elled via OM: Order cancelled - Patient discharged Performed By: #### L 100.0100, L500.2500 #### [facility] [address] [place], [address] CBC W/Diff, Automatedon 12-1 Absolute Neut Normal 2.0-7.7 [facility] Comment on above: Result Comment: Canc elled via OM: Order cancelled - Patient discharged Performed By: #### L 100.0100, L500.2500 #### [facility] [address] [place], [address] HCT Normal 40-54 [facility] Comment on above: Result Comment: Canc elled via OM: Order cancelled - Patient discharged Performed By: #### L 100.0100, L500.2500 #### [facility] [address] [place], [address] HGB Normal 13.0-16.5 [facility] Comment on above: Result Comment: Canc elled via OM: Order cancelled - Patient discharged Performed By: #### L 100.0100, L500.2500 #### [facility] [address] [place], [address] MCH Normal 27.0-32.0 [facility] Comment on above: Result Comment: Canc elled via OM: Order cancelled - Patient discharged Performed By: #### L 100.0100, L500.2500 #### [facility] [address] [place], [address] MCHC Normal 32-36 [facility] Comment on above: Result Comment: Canc elled via OM: Order cancelled - Patient discharged Performed By: #### L 100.0100, L500.2500 #### [facility] [address] [place], [address] MCV Normal 80-94 [facility] Comment on above: Result Comment: Canc elled via OM: Order cancelled - Patient discharged Performed By: #### L 100.0100, L500.2500 #### [facility] [address] [place], [address] NEUT% Normal 47-70 [facility] Comment on above: Result Comment: Canc elled via OM: Order cancelled - Patient discharged Performed By: #### L 100.0100, L500.2500 #### [facility] [address] [place], [address] PLT Normal 150-450 [facility] Comment on above: Result Comment: Canc elled via OM: Order cancelled - Patient discharged Performed By: #### L 100.0100, L500.2500 #### [facility] [address] [place], [address] RBC Normal 4.6-6.2 [facility] Comment on above: Result Comment: Canc elled via OM: Order cancelled - Patient discharged Performed By: #### L 100.0100, L500.2500 #### [facility] [address] [place], [address] RDW CV Normal 11.6-14.6 [facility] Comment on above: Result Comment: Canc elled via OM: Order cancelled - Patient discharged Performed By: #### L 100.0100, L500.2500 #### [facility] [address] [place], [address] RDW SD Normal 35.1-43.9 [facility] Comment on above: Result Comment: Canc elled via OM: Order cancelled - Patient discharged Performed By: #### L 100.0100, L500.2500 #### [facility] [address] [place], [address] WBC Normal 4.4-11.0 [facility] Comment on above: Result Comment: Canc elled via OM: Order cancelled - Patient discharged Performed By: #### L 100.0100, L500.2500 #### [facility] [address] [place], [address] Tray 04-20-2024 FLORINDA Telephone (HEMAWS) -- CLINT VILLAR ([id number]) 1940 M Date Time Provider Department 04/20/24 JOHAN PAYNE During your visit today, we recorded the following information about you: Albertina Tejeda 04/20/2024 1:58 PM Signed Spouse Susanne called to cancel appointments this week due to patient falling a total of 5 times last and Friday and two squad trips to [facility]. Patient is still having weakness and feels [...] [D64.9] 12/27/2021 Positive colorectal cancer screening using [place]*01/03/2023 02/26/2024 Elevated PSA [R97.20] 01/09/2023 New onset [...] Status:Closed by BOUCHRA FORTUNE on 04/21/[address] [facility] Basic Metabolic Profile (BMP )on 04-19-2024 BUN Normal 11-19 [facility] Comment on above: Result Comment: Canc elled via OM: Order cancelled - Patient discharged Performed By: #### L 500.2500, L100.0100 #### [facility] [address] [place], [address] BUN/CRE Normal - [facility] Comment on above: Result Comment: Canc elled via OM: Order cancelled - Patient discharged Performed By: #### L 500.2500, L100.0100 #### [facility] [address] [place], [address] CA,Total Normal 8.5-10.1 [facility] Comment on above: Result Comment: Canc elled via OM: Order cancelled - Patient discharged Performed By: #### L 500.2500, L100.0100 #### [facility] [address] [place], [address] CL Normal 98-107 [facility] Comment on above: Result Comment: Canc elled via OM: Order cancelled - Patient discharged Performed By: #### L 500.2500, L100.0100 #### [facility] [address] [place], [address] CO2 Normal 21.0-32.0 [facility] Comment on above: Result Comment: Canc elled via OM: Order cancelled - Patient discharged Performed By: #### L 500.2500, L100.0100 #### [facility] [address] [place], [address] CREAT,SERUM Normal 0.70-1.30 [facility] Comment on above: Result Comment: Canc elled via OM: Order cancelled - Patient discharged Performed By: #### L 500.2500, L100.0100 #### [facility] [address] [place], [address] EST GFR Normal >60 [facility] Comment on above: Result Comment: Canc elled via OM: Order cancelled - Patient discharged Performed By: #### L 500.2500, L100.0100 #### [facility] [address] [place], [address] EST GFR - AA Normal >60 [facility] Comment on above: Result Comment: Canc elled via OM: Order cancelled - Patient discharged Performed By: #### L 500.2500, L100.0100 #### [facility] [address] [place], [address] GAP Normal 5-15 [facility] Comment on above: Result Comment: Canc elled via OM: Order cancelled - Patient discharged Performed By: #### L 500.2500, L100.0100 #### [facility] [address] [place], [address] GLU Normal 74-106 [facility] Comment on above: Result Comment: Canc elled via OM: Order cancelled - Patient discharged Performed By: #### L 500.2500, L100.0100 #### [facility] [address] [place], [address] Potassium Normal 3.5-5.1 [facility] Comment on above: Result Comment: Canc elled via OM: Order cancelled - Patient discharged Performed By: #### L 500.2500, L100.0100 #### [facility] [address] [place], [address] Basic Metabolic Profile (BMP) Normal 136-145 [facility] Comment on above: Result Comment: Canc elled via OM: Order cancelled - Patient discharged Performed By: #### L 500.2500, L100.0100 #### [facility] [address] [place], [address] CBC W/Diff, Automatedon 12-1 Absolute Neut Normal 2.0-7.7 [facility] Comment on above: Result Comment: Canc elled via OM: Order cancelled - Patient discharged Performed By: #### L 500.2500, L100.0100 #### [facility] [address] [place], [address] HCT Normal 40-54 [facility] Comment on above: Result Comment: Canc elled via OM: Order cancelled - Patient discharged Performed By: #### L 500.2500, L100.0100 #### [facility] [address] [place], [address] HGB Normal 13.0-16.5 [facility] Comment on above: Result Comment: Canc elled via OM: Order cancelled - Patient discharged Performed By: #### L 500.2500, L100.0100 #### [facility] [address] [place], [address] MCH Normal 27.0-32.0 [facility] Comment on above: Result Comment: Canc elled via OM: Order cancelled - Patient discharged Performed By: #### L 500.2500, L100.0100 #### [facility] [address] [place], [address] MCHC Normal 32-36 [facility] Comment on above: Result Comment: Canc elled via OM: Order cancelled - Patient discharged Performed By: #### L 500.2500, L100.0100 #### [facility] [address] [place], [address] MCV Normal 80-94 [facility] Comment on above: Result Comment: Canc elled via OM: Order cancelled - Patient discharged Performed By: #### L 500.2500, L100.0100 #### [facility] [address] [place], [address] NEUT% Normal 47-70 [facility] Comment on above: Result Comment: Canc elled via OM: Order cancelled - Patient discharged Performed By: #### L 500.2500, L100.0100 #### [facility] [address] [place], [address] PLT Normal 150-450 [facility] Comment on above: Result Comment: Canc elled via OM: Order cancelled - Patient discharged Performed By: #### L 500.2500, L100.0100 #### [facility] [address] [place], [address] RBC Normal 4.6-6.2 [facility] Comment on above: Result Comment: Canc elled via OM: Order cancelled - Patient discharged Performed By: #### L 500.2500, L100.0100 #### [facility] [address] [place], [address] RDW CV Normal 11.6-14.6 [facility] Comment on above: Result Comment: Canc elled via OM: Order cancelled - Patient discharged Performed By: #### L 500.2500, L100.0100 #### [facility] [address] [place], [address] RDW SD Normal 35.1-43.9 [facility] Comment on above: Result Comment: Canc elled via OM: Order cancelled - Patient discharged Performed By: #### L 500.2500, L100.0100 #### [facility] [address] [place], [address] WBC Normal 4.4-11.0 [facility] Comment on above: Result Comment: Canc elled via OM: Order cancelled - Patient discharged Performed By: #### L 500.2500, L100.0100 #### [facility] [address] [place], [address] Basic Metabolic Profile (BMP )on 04-18-2024 BUN/CRE 15.2 RATIO Normal 10-20 [facility] Comment on above: Performed By: #### L 500.2500, L100.0100 #### [facility] [address] [place], [address] CA,Total 8.2 mg/dL Low 8.5-10.1 [facility] Comment on above: Performed By: #### L 500.2500, L100.0100 #### [facility] [address] [place], [address] Chloride [Moles/Vol] 106 mmol/L Normal 98-107 [facility] Comment on above: Performed By: #### L 500.2500, L100.0100 #### [facility] [address] [place], [address] CO2 [Moles/Vol] 22.0 mmol/L Normal 21.0-32.0 [facility] Comment on above: Performed By: #### L 500.2500, L100.0100 #### [facility] [address] [place], [address] Creatinine [Mass/Vol] 1.78 mg/dL High 0.70-1.30 [facility] Comment on above: Result Comment: The validity of the calculated GFR GFRAA in patients over 70 years has not been determined. Clinical correlation is essential. Performed By: #### L 500.2500, L100.0100 #### [facility] [address] [place], [address] ECRCL 33.77 ml/min Normal [facility] Comment on above: Performed By: #### L 500.2500, L100.0100 #### [facility] [address] [place], [address] EST GFR - AA 47 mL/min Low >60 [facility] Comment on above: Result Comment: Afri can Romanian GFR Calc Performed By: #### L 500.2500, L100.0100 #### [facility] [address] [place], [address] GAP 6 Normal 5-15 [facility] Comment on above: Performed By: #### L 500.2500, L100.0100 #### [facility] [address] [place], [address] GFR/1.73 sq M.predicted among non-blacks MDRD (S/P/Bld) [Vol rate/Area] 39 mL/min/{1.73_m2} Low >60 [facility] Comment on above: Result Comment: Non- GFR Calc Performed By: #### L 500.2500, L100.0100 #### [facility] [address] [place], [address] Glucose [Mass/Vol] 135 mg/dL High 74-106 [facility] Comment on above: Result Comment: Fast ing Glucose result greater than or equal to 126 mg/dL suggests DIABETES MELLITUS per A.D.A. criteria. Performed By: #### L 500.2500, L100.0100 #### [facility] [address] [place], [address] Potassium [Moles/Vol] 3.5 mmol/L Normal 3.5-5.1 [facility] Comment on above: Performed By: #### L 500.2500, L100.0100 #### [facility] [address] [place], [address] Sodium [Moles/Vol] 134 mmol/L Low 136-145 [facility] Comment on above: Performed By: #### L 500.2500, L100.0100 #### [facility] [address] [place], [address] Urea nitrogen [Mass/Vol] 27 mg/dL High 7-18 [facility] Comment on above: Performed By: #### L 500.2500, L100.0100 #### [facility] [address] [place], [address] CBC W/Diff, Automatedon 04-04 Absolute Lymph 0.66 X10 3/uL Low 0.83-4.51 [facility] Comment on above: Performed By: #### L 500.2500, L100.0100 #### [facility] [address] [place], [address] Absolute Neut 10.8 X10 3/uL High 2.0-7.7 [facility] Comment on above: Performed By: #### L 500.2500, L100.0100 #### [facility] [address] [place], [address] Basophils/100 WBC (Bld) 0.1 % Normal 0-1 [facility] Comment on above: Performed By: #### L 500.2500, L100.0100 #### [facility] [address] [place], [address] Eosinophils/100 WBC (Bld) 0.0 % Normal 0-5 [facility] Comment on above: Performed By: #### L 500.2500, L100.0100 #### [facility] [address] [place], [address] Erythrocyte distribution width (RBC) [Ratio] 14.8 % High 11.6-14.6 [facility] Comment on above: Performed By: #### L 500.2500, L100.0100 #### [facility] [address] [place], [address] Hematocrit (Bld) [Volume fraction] 25.3 % Low 40-54 [facility] Comment on above: Performed By: #### L 500.2500, L100.0100 #### [facility] [address] [place], [address] Hemoglobin (Bld) [Mass/Vol] 8.4 g/dL Low 13.0-16.5 [facility] Comment on above: Performed By: #### L 500.2500, L100.0100 #### [facility] [address] [place], [address] IG% 0.600 Normal 0.0-0.9 [facility] Comment on above: Result Comment: IG% - Immature Granulocytes (promyelocytes, myelocytes and metamyelocytes) > 1% indicates that a LEFT SHIFT is Present. Performed By: #### L 500.2500, L100.0100 #### [facility] [address] [place], [address] Lymphocytes/100 WBC (Bld) 5.3 % Low 19-41 [facility] Comment on above: Performed By: #### L 500.2500, L100.0100 #### [facility] [address] [place], [address] MCH (RBC) [Entitic mass] 32.3 pg High 27.0-32.0 [facility] Comment on above: Performed By: #### L 500.2500, L100.0100 #### [facility] [address] [place], [address] MCHC (RBC) [Mass/Vol] 33.2 g/dL Normal 32-36 [facility] Comment on above: Performed By: #### L 500.2500, L100.0100 #### [facility] [address] [place], [address] MCV (RBC) [Entitic vol] 97.3 fL High 80-94 [facility] Comment on above: Performed By: #### L 500.2500, L100.0100 #### [facility] [address] [place], [address] Monocytes/100 WBC (Bld) 7.3 % Normal 0-10 [facility] Comment on above: Performed By: #### L 500.2500, L100.0100 #### [facility] [address] [place], [address] Neutrophils/100 WBC (Bld) 86.7 % High 47-70 [facility] Comment on above: Performed By: #### L 500.2500, L100.0100 #### [facility] [address] [place], [address] Nucleated RBC (Bld) [#/Vol] 0 10*3/uL Normal 0-5 [facility] Comment on above: Performed By: #### L 500.2500, L100.0100 #### [facility] [address] [place], [address] Platelet mean volume (Bld) [Entitic vol] 9.2 fL Normal 6.2-12.0 [facility] Comment on above: Performed By: #### L 500.2500, L100.0100 #### [facility] [address] [place], [address] Platelets (Bld) [#/Vol] 123 10*3/uL Low 150-450 [facility] Comment on above: Performed By: #### L 500.2500, L100.0100 #### [facility] [address] [place], [address] RBC (Bld) [#/Vol] 2.60 10*6/uL Low 4.6-6.2 [facility] Comment on above: Performed By: #### L 500.2500, L100.0100 #### [facility] [address] [place], [address] RDW SD 53.1 fl High 35.1-43.9 [facility] Comment on above: Performed By: #### L 500.2500, L100.0100 #### [facility] [address] [place], [address] WBC (Bld) [#/Vol] 12.5 10*3/uL High 4.4-11.0 [facility] Comment on above: Performed By: #### L 500.2500, L100.0100 #### [facility] [address] [place], [address] Discharge Instructionon 04-04 Discharge Instruction [facility] Medical Records Department [address] [place] [address] Instructions for Home/Discharge Instructions 04/18/24 1201 MR#: [id number] Acct: [id number] Name: CLINT VILLAR Rep #: [id number] : 1940 83 From: Nora Ward MD [...] Reason for Your Visit: UTI Attending Provider: Noar Ward Primary Care Provider: Cody Carrington Consulting [...] DO; Dr. Cody Carrington MD Signed Normal [facility] Abdomen/Pelvis without Conto n 04-17-2024 Abdomen/Pelvis without Cont [facility] [address] [place] [address] [id number] Abdomen/Pelvis without Cont MR#: [id number] Acct: [id number] Name: CLINT VILLAR Rep #: [id number] : 1940 M 83 From: Jaky peacock MD PCP: Dr. Cody Carrington MD Status: ADM IN Study: Abdomen/Pelvis without Cont Date of Exam: 04/04 08/26 Exam# [id number] Ordering Dr: Nora Ward MD [id number] HISTORY: abdominal pain, history of ureteral bilateral [...] Nora Ward MD; Dr. Cody Carrington MD Membership Sales Manager: Signed Normal [facility] Basic Metabolic Profile (BMP )on 04-17-2024 BUN/CRE 18.3 RATIO Normal -20 [facility] Comment on above: Performed By: #### L 500.2500, L100.0100 #### [facility] [address] [place], [place] [address], [address] CA,Total 8.4 mg/dL Low 8.5-10.1 [facility] Comment on above: Performed By: #### L 500.2500, L100.0100 #### [facility] [address] [place], [address] Chloride [Moles/Vol] 107 mmol/L Normal 98-107 [facility] Comment on above: Performed By: #### L 500.2500, L100.0100 #### [facility] [address] [place], [address] CO2 [Moles/Vol] 24.0 mmol/L Normal 21.0-32.0 [facility] Comment on above: Performed By: #### L 500.2500, L100.0100 #### [facility] [address] [place], [address] Creatinine [Mass/Vol] 1.75 mg/dL High 0.70-1.30 [facility] Comment on above: Result Comment: The validity of the calculated GFR GFRAA in patients over 70 years has not been determined. Clinical correlation is essential. Performed By: #### L 500.2500, L100.0100 #### [facility] [address] [place], [address] ECRCL 34.35 ml/min Normal [facility] Comment on above: Performed By: #### L 500.2500, L100.0100 #### [facility] [address] [place], [address] EST GFR - AA 48 mL/min Low >60 [facility] Comment on above: Result Comment: Afri can Romanian GFR Calc Performed By: #### L 500.2500, L100.0100 #### [facility] [address] [place], [address] GAP 6 Normal 5-15 [facility] Comment on above: Performed By: #### L 500.2500, L100.0100 #### [facility] [address] [place], [address] GFR/1.73 sq M.predicted among non-blacks MDRD (S/P/Bld) [Vol rate/Area] 40 mL/min/{1.73_m2} Low >60 [facility] Comment on above: Result Comment: Non- GFR Calc Performed By: #### L 500.2500, L100.0100 #### [facility] [address] [place], [address] Glucose [Mass/Vol] 132 mg/dL High 74-106 [facility] Comment on above: Result Comment: Fast ing Glucose result greater than or equal to 126 mg/dL suggests DIABETES MELLITUS per A.D.A. criteria. Performed By: #### L 500.2500, L100.0100 #### [facility] [address] [place], [address] Potassium [Moles/Vol] 3.9 mmol/L Normal 3.5-5.1 [facility] Comment on above: Performed By: #### L 500.2500, L100.0100 #### [facility] [address] [place], [address] Sodium [Moles/Vol] 137 mmol/L Normal 136-145 [facility] Comment on above: Performed By: #### L 500.2500, L100.0100 #### [facility] [address] [place], [address] Urea nitrogen [Mass/Vol] 32 mg/dL High 7-18 [facility] Comment on above: Performed By: #### L 500.2500, L100.0100 #### [facility] [address] [place], [address] CBC W/Diff, Automatedon 12-1 Absolute Lymph 0.61 X10 3/uL Low 0.83-4.51 [facility] Comment on above: Performed By: #### L 500.2500, L100.0100 #### [facility] [address] [place], [address] Absolute Neut 10.7 X10 3/uL High 2.0-7.7 [facility] Comment on above: Performed By: #### L 500.2500, L100.0100 #### [facility] [address] [place], [address] Basophils/100 WBC (Bld) 0.2 % Normal 0-1 [facility] Comment on above: Performed By: #### L 500.2500, L100.0100 #### [facility] [address] [place], [address] Eosinophils/100 WBC (Bld) 0.0 % Normal 0-5 [facility] Comment on above: Performed By: #### L 500.2500, L100.0100 #### [facility] [address] [place], [address] Erythrocyte distribution width (RBC) [Ratio] 15.0 % High 11.6-14.6 [facility] Comment on above: Performed By: #### L 500.2500, L100.0100 #### [facility] [address] [place], [address] Hematocrit (Bld) [Volume fraction] 25.3 % Low 40-54 [facility] Comment on above: Performed By: #### L 500.2500, L100.0100 #### [facility] [address] [place], [address] Hemoglobin (Bld) [Mass/Vol] 8.3 g/dL Low 13.0-16.5 [facility] Comment on above: Performed By: #### L 500.2500, L100.0100 #### [facility] [address] [place], [address] IG% 1.000 High 0.0-0.9 [facility] Comment on above: Result Comment: IG% - Immature Granulocytes (promyelocytes, myelocytes and metamyelocytes) > 1% indicates that a LEFT SHIFT is Present. Performed By: #### L 500.2500, L100.0100 #### [facility] [address] [place], [address] Lymphocytes/100 WBC (Bld) 4.8 % Low 19-41 [facility] Comment on above: Performed By: #### L 500.2500, L100.0100 #### [facility] [address] [place], [address] MCH (RBC) [Entitic mass] 32.2 pg High 27.0-32.0 [facility] Comment on above: Performed By: #### L 500.2500, L100.0100 #### [facility] [address] [place], [address] MCHC (RBC) [Mass/Vol] 32.8 g/dL Normal 32-36 [facility] Comment on above: Performed By: #### L 500.2500, L100.0100 #### [facility] [address] [place], [address] MCV (RBC) [Entitic vol] 98.1 fL High 80-94 [facility] Comment on above: Performed By: #### L 500.2500, L100.0100 #### [facility] [address] [place], [address] Monocytes/100 WBC (Bld) 9.6 % Normal 0-10 [facility] Comment on above: Performed By: #### L 500.2500, L100.0100 #### [facility] [address] [place], [address] Neutrophils/100 WBC (Bld) 84.4 % High 47-70 [facility] Comment on above: Performed By: #### L 500.2500, L100.0100 #### [facility] [address] [place], [address] Nucleated RBC (Bld) [#/Vol] 0 10*3/uL Normal 0-5 [facility] Comment on above: Performed By: #### L 500.2500, L100.0100 #### [facility] [address] [place], [address] Platelet mean volume (Bld) [Entitic vol] 9.2 fL Normal 6.2-12.0 [facility] Comment on above: Performed By: #### L 500.2500, L100.0100 #### [facility] [address] [place], [address] Platelets (Bld) [#/Vol] 132 10*3/uL Low 150-450 [facility] Comment on above: Performed By: #### L 500.2500, L100.0100 #### [facility] [address] [place], [address] RBC (Bld) [#/Vol] 2.58 10*6/uL Low 4.6-6.2 [facility] Comment on above: Performed By: #### L 500.2500, L100.0100 #### [facility] [address] [place], [address] RDW SD 53.8 fl High 35.1-43.9 [facility] Comment on above: Performed By: #### L 500.2500, L100.0100 #### [facility] [address] [place], [address] WBC (Bld) [#/Vol] 12.6 10*3/uL High 4.4-11.0 [facility] Comment on above: Performed By: #### L 500.2500, L100.0100 #### [facility] [address] [place], [place], [address] Urine Cultureon 04-17-2024 URC Enterococcus faecali s Sadler Count 80,000-100,000 Enterococcus faecalis: REACTION Ampicillin Islt LORETTA <=2 Ciprofloxacin Islt LORETTA 1 S Gentamicin Synergy Susc Islt SYN-S S levoFLOXacin Islt LORETTA 1 S Linezolid Islt LORETTA 2 S Nitrofurantoin Islt LORETTA <=16 S Streptomycin High Pot Susc Islt SYN-S S Tetracycline Islt LORETTA >=16 R Vancomycin Islt LORETTA 2 S Normal [facility] Comment on above: Performed By: #### L 100.0100, L500.2500 #### [facility] [address] [place], [address] Abdomen Single Viewon 2023 Abdomen Single View [facility] Imaging Services [address] [place], [place] [address] Abdomen Single View MR#: [id number] Acct: [id number] Name: CLINT VILLAR Rep #: [id number] : 1940 M 83 From: Aranza Dweitt MD PCP: Dr. Cody Carrington MD Status: REG ER Study: Abdomen Single View Date of Exam: 04/16/24 Exam# [id number] Ordering Dr: Johnnie De La O MD [id number] INDICATION: UTI, bilat ureteral stents EXAMINATION/TECHNIQUE: X-RAY [...] La O MD; Dr. Cody Carrington MD Membership Sales Manager: Signed Normal [facility] Basic Metabolic Profile (BMP )on 04-16-2024 BUN/CRE 14.9 RATIO Normal 10-20 [facility] Comment on above: Performed By: #### L 100.0100, L500.2500 #### [facility] [address] [place], [address] CA,Total 9.0 mg/dL Normal 8.5-10.1 [facility] Comment on above: Performed By: #### L 100.0100, L500.2500 #### [facility] [address] [place], [address] Chloride [Moles/Vol] 103 mmol/L Normal 98-107 [facility] Comment on above: Performed By: #### L 100.0100, L500.2500 #### [facility] [address] [place], [address] CO2 [Moles/Vol] 21.0 mmol/L Normal 21.0-32.0 [facility] Comment on above: Performed By: #### L 100.0100, L500.2500 #### [facility] [address] [place], [address] Creatinine [Mass/Vol] 1.88 mg/dL High 0.70-1.30 [facility] Comment on above: Result Comment: The validity of the calculated GFR GFRAA in patients over 70 years has not been determined. Clinical correlation is essential. Performed By: #### L 100.0100, L500.2500 #### [facility] [address] [place], [address] ECRCL 33.07 ml/min Normal [facility] Comment on above: Performed By: #### L 100.0100, L500.2500 #### [facility] [address] [place], [address] EST GFR - AA 44 mL/min Low >60 [facility] Comment on above: Result Comment: Afri can Romanian GFR Calc Performed By: #### L 100.0100, L500.2500 #### [facility] [address] [place], [address] GAP 11 Normal 5-15 [facility] Comment on above: Performed By: #### L 100.0100, L500.2500 #### [facility] [address] [place], [address] GFR/1.73 sq M.predicted among non-blacks MDRD (S/P/Bld) [Vol rate/Area] 37 mL/min/{1.73_m2} Low >60 [facility] Comment on above: Result Comment: Non- GFR Calc Performed By: #### L 100.0100, L500.2500 #### [facility] [address] [place], [address] Glucose [Mass/Vol] 144 mg/dL High 74-106 [facility] Comment on above: Result Comment: Fast ing Glucose result greater than or equal to 126 mg/dL suggests DIABETES MELLITUS per A.D.A. criteria. Performed By: #### L 100.0100, L500.2500 #### [facility] [address] [place], [address] Potassium [Moles/Vol] 3.5 mmol/L Normal 3.5-5.1 [facility] Comment on above: Performed By: #### L 100.0100, L500.2500 #### [facility] [address] [place], [address] Sodium [Moles/Vol] 135 mmol/L Low 136-145 [facility] Comment on above: Performed By: #### L 100.0100, L500.2500 #### [facility] [address] [place], [address] Urea nitrogen [Mass/Vol] 28 mg/dL High 7-18 [facility] Comment on above: Performed By: #### L 100.0100, L500.2500 #### [facility] [address] [place], [address] CBC W/Diff, Automatedon 12-05 07-2023 Absolute Lymph 0.27 X10 3/uL Low 0.83-4.51 [facility] Comment on above: Performed By: #### L 100.0100, L500.2500 #### [facility] [address] [place], [address] Absolute Neut 10.6 X10 3/uL High 2.0-7.7 [facility] Comment on above: Performed By: #### L 100.0100, L500.2500 #### [facility] [address] [place], [address] Basophils/100 WBC (Bld) 0.1 % Normal 0-1 [facility] Comment on above: Performed By: #### L 100.0100, L500.2500 #### [facility] [address] [place], [address] Eosinophils/100 WBC (Bld) 0.0 % Normal 0-5 [facility] Comment on above: Performed By: #### L 100.0100, L500.2500 #### [facility] [address] [place], [address] Erythrocyte distribution width (RBC) [Ratio] 14.6 % Normal 11.6-14.6 [facility] Comment on above: Performed By: #### L 100.0100, L500.2500 #### [facility] [address] [place], [address] Hematocrit (Bld) [Volume fraction] 28.0 % Low 40-54 [facility] Comment on above: Performed By: #### L 100.0100, L500.2500 #### [facility] [address] [place], [address] Hemoglobin (Bld) [Mass/Vol] 9.6 g/dL Low 13.0-16.5 [facility] Comment on above: Performed By: #### L 100.0100, L500.2500 #### [facility] [address] [place], [address] IG% 0.500 Normal 0.0-0.9 [facility] Comment on above: Result Comment: IG% - Immature Granulocytes (promyelocytes, myelocytes and metamyelocytes) > 1% indicates that a LEFT SHIFT is Present. Performed By: #### L 100.0100, L500.2500 #### [facility] [address] [place], [address] Lymphocytes/100 WBC (Bld) 2.2 % Low 19-41 [facility] Comment on above: Performed By: #### L 100.0100, L500.2500 #### [facility] [address] [place], [address] MCH (RBC) [Entitic mass] 32.4 pg High 27.0-32.0 [facility] Comment on above: Performed By: #### L 100.0100, L500.2500 #### [facility] [address] [place], [address] MCHC (RBC) [Mass/Vol] 34.3 g/dL Normal 32-36 [facility] Comment on above: Performed By: #### L 100.0100, L500.2500 #### [facility] [address] [place], [address] MCV (RBC) [Entitic vol] 94.6 fL High 80-94 [facility] Comment on above: Performed By: #### L 100.0100, L500.2500 #### [facility] [address] [place], [address] Monocytes/100 WBC (Bld) 10.1 % High 0-10 [facility] Comment on above: Performed By: #### L 100.0100, L500.2500 #### [facility] [address] [place], [address] Neutrophils/100 WBC (Bld) 87.1 % High 47-70 [facility] Comment on above: Performed By: #### L 100.0100, L500.2500 #### [facility] [address] [place], [address] Nucleated RBC (Bld) [#/Vol] 0 10*3/uL Normal 0-5 [facility] Comment on above: Performed By: #### L 100.0100, L500.2500 #### [facility] [address] [place], [address] Platelet mean volume (Bld) [Entitic vol] 8.8 fL Normal 6.2-12.0 [facility] Comment on above: Performed By: #### L 100.0100, L500.2500 #### [facility] [address] [place], [address] Platelets (Bld) [#/Vol] 168 10*3/uL Normal 150-450 [facility] Comment on above: Performed By: #### L 100.0100, L500.2500 #### [facility] [address] [place], [address] RBC (Bld) [#/Vol] 2.96 10*6/uL Low 4.6-6.2 [facility] Comment on above: Performed By: #### L 100.0100, L500.2500 #### [facility] [address] [place], [address] RDW SD 50.0 fl High 35.1-43.9 [facility] Comment on above: Performed By: #### L 100.0100, L500.2500 #### [facility] [address] [place], [address] WBC (Bld) [#/Vol] 12.2 10*3/uL High 4.4-11.0 [facility] Comment on above: Performed By: #### L 100.0100, L500.2500 #### [facility] [address] [place], [address] Chest PA and Lateralon 04-16 Chest PA and Lateral [facility] Imaging Services [address] [place] [address] Chest PA and Lateral MR#: [id number] Acct: [id number] Name: CLINT VILLAR Rep #: [id number] : 1940 M 83 From: Aranza Dewitt MD PCP: Dr. Cody Carrington MD Status: [facility] ER Study: Chest PA and Lateral Date of Exam: 04/16/24 Exam# [id number] Ordering Dr: Johnnie De La O MD [id number] INDICATION: weakness, hypoxemia EXAMINATION/TECHNIQUE: X-RAY - XR [...] La O MD; Dr. Cody Carrington MD Membership Sales Manager: Signed Normal [facility] Emergency Department Summary on 04-16-2024 Emergency Department Summary [facility] Medical Records Department [address] [place] [address] Emergency Department Summary 04/16/24 MR#: [id number] Acct: [id number] Name: CLINT VILLAR Rep #: [id number] : 1940 83 From: Johnnie De La O MD PCP: Dr. Coyd Carrington MD Status:ADM IN Location: [place] [address]-1 HPI History of Present Illness Chief Complaint: [...] placed by his urologist who is at [facility] in [place], about 6 weeks ago and those are still present. He states when he is not urinating he does not have any pain from them. [facility] Medical History Prostate CA Erectile dysfunction [...] NAD BRIDGETTE (more content not included)... Normal [facility] H AND P Exam - Hospitaliston 04-16-2024 H&P Exam - Hospitalist [facility] Medical Records Department [address] [place] [address] H P Exam - Hospitalist 04/16/24 1758 MR#: [id number] Acct: [id number] Name: CLINT VILLAR Rep #: [id number] : 1940 83 From: Valentina Raza DO PCP: Dr. Cody Carrington MD Status:[facility] - General General Date of Admission: 04/16/24 Date of Service: 04/16/24 Chief Complaint: Generalized weakness, urinary tract infection HPI Narrative CLINT VILLAR, is a 83 M who presents to the emergency room at [facility] with complaints of generalized weakness over [...] will receive IV antibiotics for his UTI. [facility] Medical History Prostate CA Erectile dysfunction Elevated [...] Hematologic/Lymphatic Hematologic/Lym (more content not included)... Normal [facility] Lactic Acidon 04-16-2024 Lactate [Moles/Vol] 1.3 mmol/L Normal 0.4-1.9 [facility] Comment on above: Performed By: #### L 500.2500, L100.0100 #### [facility] [address] [place], [address] Lactate [Moles/Vol] 2.1 mmol/L Invalid Interpretation Code 0.4-1.9 [facility] Comment on above: Order Comment: Y Result Comment: Crit ical Result(s) Called at: 13:14:04 04/16/2024 by: EDER ABREU TO RENATA. Results read back by same. Performed By: #### L 100.0100, L500.2500 #### [facility] [address] [place], [address] Basic Metabolic Profile (BMP )on 04-15-2024 BUN/CRE 16.5 RATIO Normal 10-20 [facility] Comment on above: Performed By: #### L 100.0100, L500.2500 #### [facility] [address] [place], [address] CA,Total 9.6 mg/dL Normal 8.5-10.1 [facility] Comment on above: Performed By: #### L 100.0100, L500.2500 #### [facility] [address] [place], [address] Chloride [Moles/Vol] 101 mmol/L Normal 98-107 [facility] Comment on above: Performed By: #### L 100.0100, L500.2500 #### [facility] [address] [place], [address] CO2 [Moles/Vol] 23.0 mmol/L Normal 21.0-32.0 [facility] Comment on above: Performed By: #### L 100.0100, L500.2500 #### [facility] [address] [place], [address] Creatinine [Mass/Vol] 1.82 mg/dL High 0.70-1.30 [facility] Comment on above: Result Comment: The validity of the calculated GFR GFRAA in patients over 70 years has not been determined. Clinical correlation is essential. Performed By: #### L 100.0100, L500.2500 #### [facility] [address] [place], [address] ECRCL 33.86 ml/min Normal [facility] Comment on above: Performed By: #### L 100.0100, L500.2500 #### [facility] [address] [place], [address] EST GFR - AA 46 mL/min Low >60 [facility] Comment on above: Result Comment: Afri can Romanian GFR Calc Performed By: #### L 100.0100, L500.2500 #### [facility] [address] [place], [address] GAP 10 Normal 5-15 [facility] Comment on above: Performed By: #### L 100.0100, L500.2500 #### [facility] [address] [place], [address] GFR/1.73 sq M.predicted among non-blacks MDRD (S/P/Bld) [Vol rate/Area] 38 mL/min/{1.73_m2} Low >60 [facility] Comment on above: Result Comment: Non- GFR Calc Performed By: #### L 100.0100, L500.2500 #### [facility] [address] [place], [address] Glucose [Mass/Vol] 175 mg/dL High 74-106 [facility] Comment on above: Result Comment: Fast ing Glucose result greater than or equal to 126 mg/dL suggests DIABETES MELLITUS per A.D.A. criteria. Performed By: #### L 100.0100, L500.2500 #### [facility] [address] [place], [address] Potassium [Moles/Vol] 3.9 mmol/L Normal 3.5-5.1 [facility] Comment on above: Performed By: #### L 100.0100, L500.2500 #### [facility] [address] [place], [address] Sodium [Moles/Vol] 134 mmol/L Low 136-145 [facility] Comment on above: Performed By: #### L 100.0100, L500.2500 #### [facility] [address] [place], [address] Urea nitrogen [Mass/Vol] 30 mg/dL High 7-18 [facility] Comment on above: Performed By: #### L 100.0100, L500.2500 #### [facility] [address] [place], [address] Brain/Head without Contrasto n 04-15-2024 Brain/Head without Contrast [facility] Imaging Services [address] [place] [address] Brain/Head without Contrast MR#: [id number] Acct: [id number] Name: CLINT VILLAR Rep #: [id number] : 1940 M 83 From: Charly Del Angel MD PCP: Dr. Cody Carrington MD Status: REG ER Study: Brain/Head without Contrast Date of Exam: 04/04 06/28 Exam# [id number] Ordering Dr: Fernando Hollins DO [id number] INDICATION: Trauma, injury EXAMINATION: CT BRAIN - [...] Fernando Hollins DO; Dr. Cody Carrington MD Membership Sales Manager: Signed Normal [facility] CBC W/Diff, Automatedon 04-04 Absolute Lymph 0.69 X10 3/uL Low 0.83-4.51 [facility] Comment on above: Performed By: #### L 100.0100, L500.2500 #### [facility] [address] [place], [address] Absolute Neut 7.0 X10 3/uL Normal 2.0-7.7 [facility] Comment on above: Performed By: #### L 100.0100, L500.2500 #### [facility] [address] [place], [address] Basophils/100 WBC (Bld) 0.3 % Normal 0-1 [facility] Comment on above: Performed By: #### L 100.0100, L500.2500 #### [facility] [address] [place], [address] Eosinophils/100 WBC (Bld) 0.1 % Normal 0-5 [facility] Comment on above: Performed By: #### L 100.0100, L500.2500 #### [facility] [address] [place], [address] Erythrocyte distribution width (RBC) [Ratio] 14.6 % Normal 11.6-14.6 [facility] Comment on above: Performed By: #### L 100.0100, L500.2500 #### [facility] [address] [place], [address] Hematocrit (Bld) [Volume fraction] 32.4 % Low 40-54 [facility] Comment on above: Performed By: #### L 100.0100, L500.2500 #### [facility] [address] [place], [address] Hemoglobin (Bld) [Mass/Vol] 11.1 g/dL Low 13.0-16.5 [facility] Comment on above: Performed By: #### L 100.0100, L500.2500 #### [facility] [address] [place], [address] IG% 0.700 Normal 0.0-0.9 [facility] Comment on above: Result Comment: IG% - Immature Granulocytes (promyelocytes, myelocytes and metamyelocytes) > 1% indicates that a LEFT SHIFT is Present. Performed By: #### L 100.0100, L500.2500 #### [facility] [address] [place], [address] Lymphocytes/100 WBC (Bld) 7.7 % Low 19-41 [facility] Comment on above: Performed By: #### L 100.0100, L500.2500 #### [facility] [address] [place], [address] MCH (RBC) [Entitic mass] 32.7 pg High 27.0-32.0 [facility] Comment on above: Performed By: #### L 100.0100, L500.2500 #### [facility] [address] [place], [address] MCHC (RBC) [Mass/Vol] 34.3 g/dL Normal 32-36 [facility] Comment on above: Performed By: #### L 100.0100, L500.2500 #### [facility] [address] [place], [address] MCV (RBC) [Entitic vol] 95.6 fL High 80-94 [facility] Comment on above: Performed By: #### L 100.0100, L500.2500 #### [facility] [address] [place], [address] Monocytes/100 WBC (Bld) 13.2 % High 0-10 [facility] Comment on above: Performed By: #### L 100.0100, L500.2500 #### [facility] [address] [place], [address] Neutrophils/100 WBC (Bld) 78.0 % High 47-70 [facility] Comment on above: Performed By: #### L 100.0100, L500.2500 #### [facility] [address] [place], [address] Nucleated RBC (Bld) [#/Vol] 0 10*3/uL Normal 0-5 [facility] Comment on above: Performed By: #### L 100.0100, L500.2500 #### [facility] [address] [place], [address] Platelet mean volume (Bld) [Entitic vol] 9.0 fL Normal 6.2-12.0 [facility] Comment on above: Performed By: #### L 100.0100, L500.2500 #### [facility] [address] [place], [address] Platelets (Bld) [#/Vol] 201 10*3/uL Normal 150-450 [facility] Comment on above: Performed By: #### L 100.0100, L500.2500 #### [facility] [address] [place], [address] RBC (Bld) [#/Vol] 3.39 10*6/uL Low 4.6-6.2 [facility] Comment on above: Performed By: #### L 100.0100, L500.2500 #### [facility] [address] [place], [address] RDW SD 50.1 fl High 35.1-43.9 [facility] Comment on above: Performed By: #### L 100.0100, L500.2500 #### [facility] [address] [place], [address] WBC (Bld) [#/Vol] 9.0 10*3/uL Normal 4.4-11.0 [facility] Comment on above: Performed By: #### L 100.0100, L500.2500 #### [facility] [address] [place], [address] Emergency Department Summary on 04-15-2024 Emergency Department Summary [facility] Medical Records Department [address] [place] [address] Emergency Department Summary 04/15/24 MR#: [id number] Acct: [id number] Name: CLINT VILLAR Rep #: [id number] : 1940 83 From: Fernando Hollins DO [...] He is not believe he lost consciousness. [facility] Medical History Prostate CA Erectile dysfunction [...] well developed (more content not included)... Normal [facility] Urinalysis, Completeon 04-15 BACTERIA RARE Normal None Seen [facility] Comment on above: Order Comment: CLEAN CATCH Performed By: #### L 500.2500, L100.0100 #### [facility] [address] [place], [address] EPI,RENAL 0-5 SEEN Normal 0-5 [facility] Comment on above: Order Comment: CLEAN CATCH Performed By: #### L 500.2500, L100.0100 #### [facility] [address] [place], [address] Mucus Ql (Urine sed) 1+ /hpf Normal [facility] Comment on above: Order Comment: CLEAN CATCH Performed By: #### L 500.2500, L100.0100 #### [facility] [address] [place], [address] RBC 5-10 SEEN Normal 0-5 [facility] Comment on above: Order Comment: CLEAN CATCH Performed By: #### L 500.2500, L100.0100 #### [facility] [address] [place], [address] WBC 50-100 SEEN Normal 0-5 [facility] Comment on above: Order Comment: CLEAN CATCH Performed By: #### L 500.2500, L100.0100 #### [facility] [address] [place], [address] EPI,SQUAMOUS 0 SEEN Normal 0-5 [facility] Comment on above: Order Comment: CLEAN CATCH Performed By: #### L 500.2500, L100.0100 #### [facility] [address] [place], [address] BLADDER SCANon 04-14-2024 PVR 92 ml [facility] CNOVon 04-14-2024 CNOV Office Visit (URCANT ) -- CLINT VILLAR ([id number]) 1940 M Date Time Provider Department 04/14/24 2:15 PM RADHA LARSEN URMARGARITA During your visit today, we recorded the following information about you: Radha Larsen MD 04/14/2024 2:47 PM Signed [facility] ESTABLISHED PATIENT NOTE PATIENT: Clint Villar (83 year old) PCP: Cody Carrington MD DATE OF SERVICE: 04/14/2024 -- SUMMARY: Mr. Villar is a 83 year old male who is here for follow up Assessment AND Plan Prostate cancer (HCC) Castrate sensitive metastatic prostate cancer On [place] through oncology Currently XRT PSA 5.5 from [...] capsules by mout (more content not included)... [facility] 04-14-2024 [facility]INT [facility]AR ([id number]) 1940 M Date Time Provider Department 04/14/24 [...] 04/23/24. Please call patient with information at [phone] Cody Blankenship MD 04/14/2024 12:13 PM Signed No additional labs from id this time. Danielle Aviles LPN 04/14/2024 12:18 PM Signed Spoke with pt and information listed below given. Pt verbalizes understanding. Danielle Aviles LPN Allergies As of Date: 04/14/2024 Noted Allergy Reaction LATEX 03/15/2024 2 - Rash Comments: Rash to skin Date Reviewed: 03/26/2024 Reviewed by: Radha Larsen MD - Fully Assessed Reason for Visit: Patient Question [2327] Prescriptions as of 04/14/2024 - ondansetron orally [...] [D64.9] 12/27/2021 Positive colorectal cancer screening using [place]*01/03/2023 02/26/2024 Elevated PSA [R97.20] 01/09/2023 New onset [...] Status:Closed by DANIELLE AVILES on 04/14/[address] [facility] PSA SerPl-mCncon 04-14-2024 Prostate specific Ag [Mass/Vol] 5.94 ng/mL High <2.60 [facility] Comment on above: Order Comment: Speci men Type: BLOOD SPECIMEN Ordering Facility: [facility] Address: [address] [place] [address] [place] [address] Result Comment: Tota l PSA test methodology [...] 2003,349:335-42. Performed By: #### 2 4321-2 #### [id number] [address] [place] [address] [place] Basic metabolic 2000 panelon 04-13-2024 Anion gap [Moles/Vol] 7 mmol/L Normal 5-16 [facility] Comment on above: Order Comment: Speci men Type: BLOOD SPECIMENOrdering Facility: [facility] Address: [address] [place] [address] Performed By: #### 2 4321-2 ####[facility] LABORATORYCLIA [id number] [place] [address] [place] Calcium [Mass/Vol] 9.8 mg/dL Normal 8.5-10.5 [facility] Comment on above: Order Comment: Speci men Type: BLOOD SPECIMENOrdering Facility: [facility] Address: [address] [place] [address] Performed By: #### 2 4321-2 ####[facility] LABORATORYCLIA [id number] [place] [address] [place] Chloride [Moles/Vol] 102 mmol/L Normal 98-107 [facility] Comment on above: Order Comment: Celestinai men Type: BLOOD SPECIMENOrdering Facility: [facility] Address: [address] [place] [address] Performed By: #### 2 4321-2 ####[facility] LABORATORYCLIA [id number] [place] [id number] [place] CO2 [Moles/Vol] 28 mmol/L Normal 21-32 [facility] Comment on above: Order Comment: Speci men Type: BLOOD SPECIMENOrdering Facility: [facility] Address: [address] [place] [address] Performed By: #### 2 4321-2 ####[facility] LABORATORYCLIA [id number] [place] [address] [place] Creatinine [Mass/Vol] 1.39 mg/dL Normal 0.50-1.40 [facility] Comment on above: Order Comment: Speci men Type: BLOOD SPECIMENOrdering Facility: [facility] Address: [address] [place] [address] Result Comment: Mena ents receiving either N-Acetylcysteine (NAC) or Metamizole prior to venipuncture, may have falsely depressed results. Performed By: #### 2 4321-2 ####[facility] LABORATORYCLIA [id number] [place] [address] [place] Creatinine and Glomerular filtration rate.predicted panel (S/P/Bld) 51 mL/min/1.73m??? Low >=60 [facility] Comment on above: Order Comment: Franny sally Type: BLOOD SPECIMENOrdering Facility: [facility] Address: [address] [place] [address] Result Comment: Karin mated Glomerular Filtration Rate [...] actual GFR. Performed By: #### 2 4321-2 ####[facility] LABORATORYCLIA [id number] [place] [id number] [place] Glucose [Mass/Vol] 95 mg/dL Normal 70-100 [facility] Comment on above: Order Comment: Speci men Type: BLOOD SPECIMENOrdering Facility: [facility] Address: [address] [place] [address] Result Comment: The [place] Diabetes Association (ADA) provides guidance for cutoff [...] Standards of Medical Care in Diabetes 2016, [place] [employer] Association. Diabetes Care. 2016.39(Suppl 1). Results may be falsely elevated after the administration of Sulfapyridine. Results may be falsely depressed after the administration of Sulfasalazine. Performed By: #### 2 4321-2 ####[facility] LABORATORYCLIA [id number] [place] [id number] [place] Potassium [Moles/Vol] 4.8 mmol/L Normal 3.5-5.1 [facility] Comment on above: Order Comment: Speci men Type: BLOOD SPECIMENOrdering Facility: [facility] Address: [address] [place] [address] Performed By: #### 2 4321-2 ####[facility] LABORATORYCLIA [id number] [place] [id number] [place] Sodium [Moles/Vol] 137 mmol/L Normal 136-145 [facility] Comment on above: Order Comment: Celestinai men Type: BLOOD SPECIMENOrdering Facility: [facility] Address: [address] [place] [id number] Performed By: #### 2 4321-2 ####[facility] LABORATORYCLIA [id number] [address] STATES [facility] Urea nitrogen [Mass/Vol] 34 mg/dL High 7-26 [facility] Comment on above: Order Comment: Speci men Type: BLOOD SPECIMENOrdering Facility: [facility] Address: [address] [place] [address] Performed By: #### 2 4321-2 ####[facility] LABORATORYCLIA [id number] [address] [place] PSA SerPl-ncon 04-13-2024 Prostate specific Ag [Mass/Vol] 5.50 ng/mL High <2.60 [facility] Comment on above: Order Comment: Speci men Type: BLOOD SPECIMENOrdering Facility: [facility] Address: [address] [place] [address] Result Comment: This is a new methodology for this marker. Tumor markers obtained from different assay methods cannot be used interchangeably. Expect results of this assay to run lower than the previous assay. It is recommended to re-baseline patients when changing to a new methodology. Performed By: #### 2 857-1 ####[facility] LABORATORYCLIA [id number] [address] Tray 04-05-2024 [facility] Telephone (INTWS) -- CLINT VILLAR ([id number]) 1940 M Date Time Provider Department 04/05/24 [...] [D64.9] 12/27/2021 Positive colorectal cancer screening using [place]*01/03/2023 02/26/2024 Elevated PSA [R97.20] 01/09/2023 New onset [...] Status:Closed by LEILA ANTONIO on 04/06/[address] [facility] BLADDER SCANon 03-26-2024 PVR 134 ml [facility] CNOVon 03-26-2024 CNOV Office Visit (URCANT ) -- CLINT VILLAR ([id number]) 1940 M Date Time Provider Department 03/26/24 2:00 PM RADHA LARSEN URCANT During your visit today, we recorded the following information about you: Radha Larsen MD 03/26/2024 2:06 PM Signed [facility] ESTABLISHED PATIENT NOTE [...] DOSE TONIGHT 03/03/[address] LARSEN AND [facility], BUT HAS NOT SEEN THEM YET, [...] 10/21/2023 PRIMARY FOLLOWS CURRENTLY, DUE TO SEE [facility] Arthritis At risk for stroke 10/21/2023 D/T AFIB Atrial fibrillation (HCC) COVID-19 virus infection 07/03/2020 Elevated PSA (more content not included)... [facility] CNOVon 03-17-2024 CNOV Office Visit (RADTWS ) -- CLINT VILLAR ([id number]) 1940 M Date Time Provider Department 03/17/24 [...] NAME: Clint Villar PATIENT March 17, 2024 [facility] FACILITY/LOCATION: [place] NURSING NOTE TYPE: retroperitoneal node Subjective Data Pt reports some nausea Additional Data Do you want to see a Stakes Player? No Status: Patient is male Stress Scale: On a scale of 0 to 10, what number best describes how much distress you have experienced in the past week?(0 being no distress and 10 being extreme distress) 6 Social work notified: Pt denied need to see social science instructor at this time. Nursing Assessment Fatigue: moderate; [...] Class I (more content not included)... Normal [facility] CNOVon 03-15-2024 CNOV Office Visit (URCANT ) -- CLINT VILLAR ([id number]) 1940 M Date Time Provider Department 03/15/24 2:30 PM NURSE JAY JAY MEADE During your visit today, we recorded the following information about you: Italo Matthew RN 03/15/2024 2:58 PM Signed Patient here for voiding trial. Voided x8 at home and x2 in office. Pvr is 501 ml. New 16 rwandan silicone coude catheter inserted using sterile technique. 10 cc sterile water inflated into balloon. Good urine flow noted. New leg bag attached. Patient tolerated procedure well. Transmission Engineer declined. WOODY Escobedo Brooke, RN 03/15/2024 3:28 PM Signed Called patient and notified per DIRECTOR OF EMAIL MARKETING Taryn roman for patient to pull own [...] [D64.9] 12/27/2021 Positive colorectal cancer screening using [place]*01/03/2023 02/26/2024 Elevated PSA [R97.20] 01/09/2023 New onset [...] office. Pvr is 501 ml. New 16 rwandan silicone coude catheter inserted using sterile technique. 10 cc sterile water inflated into balloon. Good urine flow noted. New leg bag attached. Patient tolerated procedure well. Transmission Engineer declined. Italo aMtthew RN >> Italo Matthew RN FriMar 15, 2024 3:25 PM Status: Signed Called patient and notified per DIRECTOR OF EMAIL MARKETING Taryn roman for patient to pull own catheter (taught how to do this by this RN) in the morning of 03/26 [address] then to see Dr Larsen of 03/26 Italo Matthew RN Encounter Status:Closed by ITALO MATTHEW on 03/15/24 [facility] CNOV Office Visit (URCANT ) -- CILNT VILLAR ([id number]) 1940 M Date Time Provider Department 03/15/24 [...] uncomfortable. Patient voiced understanding of all instructions. Transmission Engineer offered:Patient declines Ama Hardin RN Allergies As of Date: 03/15/2024 (No Known Allergies) Date Reviewed: 03/15/2024 Reviewed by: Ama [place] RN - Fully Assessed Reason for Visit: Voiding Trial [410] Cmt: Cath removal Primary Visit Diagnosis:Bilateral hydronephrosis [N13.30] Order(s):VOIDING TRIAL PROTOCOL [1061534] Order #: [id number] Prescriptions as of 03/15/2024 - valACYclovir (VALTREX) [...] [D64.9] 12/27/2021 Positive colorectal cancer screening using [place]*01/03/2023 02/26/2024 Elevated PSA [R97.20] 01/09/2023 New onset [...] Encounter Status:Closed by AMA HARDIN on 03/15/24 [facility] ([id number]) 1940 M Date Time Provider Department 03/15/24 [...] Visit Diagnosis:Bilateral hydronephrosis [N13.30] Order(s):VOIDING TRIAL PROTOCOL [[id number]] Order #: [id number] Prescriptions as of 03/15/2024 - valACYclovir (VALTREX) [...] [D64.9] 12/27/2021 Positive colorectal cancer screening using [place]*01/03/2023 02/26/2024 Elevated PSA [R97.20] 01/09/2023 New onset [...] Encounter Status:Closed by JACOB JENKINS on 03/15/24 [facility] Tray 03-10-2024 [facility] Telephone (MATTCANT) -- CLINT VILLAR ([id number]) 1940 M Date Time Provider Department 03/10/24 [...] [D64.9] 12/27/2021 Positive colorectal cancer screening using [place]*01/03/2023 02/26/2024 Elevated PSA [R97.20] 01/09/2023 New onset [...] Encounter Status:Closed by KRYS HAUSER on 03/10/24 [facility] Samson 03-09-2024 CNOV Office Visit (RADTWS ) -- CLINT VILLAR ([id number]) 1940 M Date Time Provider Department 03/09/24 1:15 PM RODOLFO AGUILAR During your visit today, we recorded the following information about you: Temperature Pulse Blood pressure 98 degrees 50/minute 141/65 Lise Dillon RN 03/09/2024 1:26 PM Signed Radiation Therapy - Nursing Note (OTV) PATIENT NAME: Clint Villar PATIENT March 09, 2024 [facility] FACILITY/LOCATION: [facility] NOTE TYPE: GENERAL Subjective Data no complaints concerning radiation, had bilateral ureteral stent put in yesterday and now has a borrego cath in for a few day was unable to void post proceedure Additional Data Do you want to see a Stakes Player? No Status: Patient is male Stress Scale: On a scale of 0 to 10, what number best describes how much distress you have experienced in the past week?(0 being no distress and 10 being extreme distress) 2 Social work notified: Pt denied need to see social science instructor at this time. Nursing Assessment Fatigue: none [...] [D64.9] 12/27/2021 Positive colorectal cancer screening using [place]*01/03/2023 02/26/2024 Elevated PSA [R97.20] 01/09/2023 New onset atrial fibrillation (HCC) [I48.91] 06/23/2023 (more content not included)... Normal [facility] [id number] 03-08-2024 [id number] HNO ID: [id number] Author: SABRINA MENDOZA RN Service: ? Author Type: Registered Nurse Type: [id number] Filed: 03/08/2024 13:30 Note Text: Follow up in one week with Dr Larsen's nurse for borrego catheter removal [facility] ANES POSTPROC EVALon 024 ANES POSTPROC EVAL HNO ID: [id number] Author: SHELTON RIVERO DO Service: Anesthesiology Author [...] (acute kidney injury) (HCC) [N17.9]) Surgeons: Radha Larsen MD Responsible Provider: Shelton Rivero DO Anesthesia [...] March 08, 2024 TIME: 10:11 AM CSN: [id number] [facility] ANES PRE-OPon 03-08-2024 ANES PRE-OP HNO ID: [id number] Author: SHELTON RIVERO DO Service: Anesthesiology Author [...] and consent discussed: yes. Patient / Responsible Republican agrees to proceed: yes Patient / Surrogate [...] March 08, 2024 TIME: 8:19 AM CSN: [id number] [facility]ray [facility]20[facility] -- CLINT VILLAR ([id number]) 1940 M Date Time Provider Department 03/08/24 [...] [C61] Order(s):PROSTATE-SPECIFIC ANTIGEN DIAGNOSTIC [SQPSA] Order #: [id number] FUTURE BASIC METABOLIC PANEL [SQBMP] Order #: [id number] FUTURE XR ABDOMEN 1V SUPINE [[id number]] Order #: [id number] FUTURE Prescriptions as of 03/08/2024 - valACYclovir [...] [D64.9] 12/27/2021 Positive colorectal cancer screening using [place]*01/03/2023 02/26/2024 Elevated PSA [R97.20] 01/09/2023 New onset [...] Encounter Status:Closed by RADHA LARSEN on 03/08/24 [facility] HISTORY PHYSICALon HISTORY PHYSICAL HNO ID: [id number] Author: RADHA LARSEN MD Service: Urology Author Type: Physician Type: H&P Filed: 03/08/2024 08:29 Note Text: [facility] SURGICAL HISTORY AND [...] ADMITTED WITH NEW ONSET AFIB MAY 2023, [facility] AND SENT HOME TO FOLLOW UP WITH CARDIOLOGY 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 Anticoagulant long-term use 10/21/2023 PRIMARY FOLLOWS CURRENTLY, DUE TO SEE [facility] Arthritis At risk for stroke 10/21/2023 [...] atrial fibrillation (HCC) 06/23/2023 DUE TO SEE [facility] FOR AFIB, PRIMARY FOLLOWS CURRENTLY, DID SEE CHRIS ACOSTA X1 APPOINTMENT BUT DID NOT CARE FOR MD SO WILL NOT GO BACK Positive colorectal cancer screening using Cologuard test 01/03/2023 Primary hypertension PRIMARY FOLLOWS Prostate cancer (HCC) 02/13/2024 DR LARSEN AND DR AGUILAR, AT [facility] IN [place] 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 [facility] NURSING PROGon 03-08-2024 NURSING PROG HNO ID: [id number] Author: DEE PEREZ RN Service: Nursing Author Type: Registered Nurse Type: Nursing Progress Note Filed: 03/08/2024 13:43 Note Text: Borrego catheter inserted per order with # 18 Fr coude catheter. Inserted without complication. Bloody urine noted in tubing [facility] OPERATIVE NOon 03-08-2024 OPERATIVE NO HNO ID: [id number] Author: RADHA LARSEN MD Service: Urology Author Type: Physician Type: Operative Report Filed: 03/08/2024 09:34 Note Text: [facility] OPERATIVE NOTE/REPORT DETAIL NAME: Clint Villar Surgery/Procedure Date: 03/08/2024 Procedure(s): Cystoscopy, right retrograde pyelograms, bilateral ureteral stent insertion Pre-Op/Pre-Procedure Diagnosis: Bilateral hydronephrosis, prostate cancer Post-Op/Post-Procedure Diagnosis: same Surgeon(s)/Proceduralist(s ) and Call Center Supervisor(s): Surgeons and Role: * Radha Larsen MD [...] fashion. A time-out was performed. A 22 [place] Islander cystoscope was passed into the urinary bladder. [...] critical portions of the procedure with the hospital administrative assistant. Dr. Larsen was immediately available for all other portions of the procedure. LOG ID: [id number] Incision/Procedure Start Time: 8:56 AM Incision Close/Procedure End Time: 9:21 AM SIGNATURE: Radha Larsen MD PATIENT NAME: Clint Villar DATE: March 08, 2024 TIME: 9:27 AM [facility] ANES PREOPon 03-05-2024 ANES PREOP HNO ID: [id number] Author: ALEJANDRO WHITE APRN.[employer] Service: ? Author Type: Nurse Practitioner Type: Anesthesia PreOp Filed: 03/05/2024 10:42 Note Text: 83 yo obese male with HX: AFIB (no rate/rhythm meds; eliquis LD 03/03), HTN, HLD, hyperglycemia (diet controlled), hypothyroid, genital herpes, prostate cancer 10/2023 EKG sb 45bpm [facility] CNNURSEon 03-02-2024 CNNURSE Nurse Visit (RADTWS) -- CLINT VILLAR ([id number]) 1940 M Date Time Provider Department 03/02/24 1:45 PM NURSE RADT [facility] W[facility] RADTWS During your visit today, we recorded the following information about you: Lise Dillon RN 03/02/2024 2:15 PM Signed Radiation Therapy - Patient Education Note PATIENT NAME: Clint Villar PATIENT March 02, 2024 [facility] FACILITY/LOCATION: [place] READINESS TO LEARN Cognitive Ability: Alert and [...] need for social work, van service, and clinic nurse. Patient has an Onbody or Implanted device: [...] [D64.9] 12/27/2021 Positive colorectal cancer screening using [place]*01/03/2023 02/26/2024 Elevated PSA [R97.20] 01/09/2023 New onset [...] Encounter Status:Closed by LISE DILLON on 03/02/24 [facility] CNOVon 03-01-2024 CNOV Office Visit (RADTWS ) -- JIANCLINT CONNOR ([id number]) 1940 M Date Time Provider Department 03/01/24 [...] PAST DAVONTE (more content not included)... Normal [facility] Tray 03-01-2024 [facility] Telephone (TYE) -- CLINT VILLAR ([id number]) 1940 M Date Time Provider Department 03/01/24 [...] RN - Fully Assessed Reason for Visit: Afternoon Nanny - ED Follow Up [7048] Prescriptions as of 03/01/2024 - valACYclovir (VALTREX) [...] [D64.9] 12/27/2021 Positive colorectal cancer screening using [place]*01/03/2023 02/26/2024 Elevated PSA [R97.20] 01/09/2023 New onset [...] Encounter Status:Closed by BOUCHRA FORTUNE on 03/01/24 [facility] CNPN Telephone (MRPRAD) -- CLINT VILLAR ([id number]) 1940 M Date Time Provider Department 03/01/24 RADHA LARSEN MRPRAD During your visit today, we recorded the following information about you: Radha Larsen MD 03/01/2024 7:17 AM Signed Please try to add as soon as possible Surgery: Cystoscopy and pyelograms, bilateral ureteral stent insertion Duration: 1 hour(s) Surgeon: Radha Larsen MD Location: [facility] Anesthesia: General Fluoroscopy: Yes Special equipment: [...] [D64.9] 12/27/2021 Positive colorectal cancer screening using [place]*01/03/2023 02/26/2024 Elevated PSA [R97.20] 01/09/2023 New onset [...] Encounter Status:Closed by RADHA LARSEN on 03/01/24 [facility] CBC W Auto Differential pane l (Bld)on 02-28-2024 Basophils (Bld) [#/Vol] 0.05 10*3/uL Normal <0.11 [facility] Comment on above: Order Comment: Speci men Type: BLOOD SPECIMEN Ordering Facility: [facility] Address: [address] [place] [address] Performed By: #### 5 7021-8 #### [facility] [facility] CLIA [id number] [address] [place] [address] [place] Basophils/100 WBC (Bld) 0.8 % Normal [facility] Comment on above: Order Comment: Speci men Type: BLOOD SPECIMEN Ordering Facility: [facility] Address: [address] [place] [address] Performed By: #### 5 7021-8 #### [facility] CLIA [id number] [address] [place] [address] [place] Differential cell count method Nom (Bld) Auto Normal [facility] Comment on above: Order Comment: Speci men Type: BLOOD SPECIMEN Ordering Facility: [facility] Address: [address] [place] [address] Performed By: #### 5 7021-8 #### [facility] CLIA [id number] [address] [place] [address] [place] Eosinophils (Bld) [#/Vol] 0.10 10*3/uL Normal <0.46 [facility] Comment on above: Order Comment: Speci men Type: BLOOD SPECIMEN Ordering Facility: [facility] Address: [address] [place] [address] Performed By: #### 5 7021-8 #### [facility] CLIA [id number] [address] [place] [address] [place] Eosinophils/100 WBC (Bld) 1.6 % Normal [facility] Comment on above: Order Comment: Speci men Type: BLOOD SPECIMEN Ordering Facility: [facility] Address: [address] [place] [address] Performed By: #### 5 7021-8 #### [facility] CLIA [id number] [address] [place] [address] [place] Erythrocyte distribution width (RBC) [Ratio] 13.1 % Normal 11.5-15.0 [facility] Comment on above: Order Comment: Speci men Type: BLOOD SPECIMEN Ordering Facility: [facility] Address: [address] [place] [address] Performed By: #### 5 7021-8 #### [facility] CLIA [id number] [address] [place] [address] [place] Hematocrit (Bld) [Volume fraction] 38.6 % Low 39.0-51.0 [facility] Comment on above: Order Comment: Speci men Type: BLOOD SPECIMEN Ordering Facility: [facility] Address: [address] [place] [address] [place] [address] Performed By: #### 5 7021-8 #### [facility] CLIA [id number] [address] [place] [address] [place] Hemoglobin (Bld) [Mass/Vol] 12.8 g/dL Low 13.0-17.0 [facility] Comment on above: Order Comment: Speci men Type: BLOOD SPECIMEN Ordering Facility: [facility] Address: [address] [place] [address] Performed By: #### 5 7021-8 #### [facility] CLIA [id number] [address] [place] [address] [place] Immature granulocytes (Bld) [#/Vol] 0.04 10*3/uL Normal <0.10 [facility] Comment on above: Order Comment: Speci men Type: BLOOD SPECIMEN Ordering Facility: [facility] Address: [address] [place] [address] Performed By: #### 5 7021-8 #### [facility] CLIA [id number] [address] [place] [address] [place] Immature granulocytes/100 WBC (Bld) 0.6 % Normal [facility] Comment on above: Order Comment: Speci men Type: BLOOD SPECIMEN Ordering Facility: [facility] Address: [address] [place] [address] Performed By: #### 5 7021-8 #### [facility] CLIA [id number] [address] [place] [address] [place] Lymphocytes (Bld) [#/Vol] 1.88 10*3/uL Normal 1.00-4.00 [facility] Comment on above: Order Comment: Speci men Type: BLOOD SPECIMEN Ordering Facility: [facility] Address: [address] [place] [address] Performed By: #### 5 7021-8 #### [facility] CLIA [id number] [address] [place], [place] [address] [place] Lymphocytes/100 WBC (Bld) 30.4 % Normal [facility] Comment on above: Order Comment: Speci men Type: BLOOD SPECIMEN Ordering Facility: [facility] Address: [address] [place] [address] Performed By: #### 5 7021-8 #### [facility] CLIA [id number] [address] [place] [address] OF [facility] MCH (RBC) [Entitic mass] 32.7 pg Normal 26.0-34.0 [facility] Comment on above: Order Comment: Speci men Type: BLOOD SPECIMEN Ordering Facility: [facility] Address: [address] [place] [address] Performed By: #### 5 7021-8 #### [facility] CLIA [id number] [address] [place] [address] [place] MCHC (RBC) [Mass/Vol] 33.2 g/dL Normal 30.5-36.0 [facility] Comment on above: Order Comment: Speci men Type: BLOOD SPECIMEN Ordering Facility: [facility] Address: [address] [place] [address] Performed By: #### 5 7021-8 #### [facility] CLIA [id number] [address] [place] [address] [place] MCV (RBC) [Entitic vol] 98.5 fL Normal 80.0-100.0 [facility] Comment on above: Order Comment: Speci men Type: BLOOD SPECIMEN Ordering Facility: [facility] Address: [address] [place] [address] Performed By: #### 5 7021-8 #### [facility] CLIA [id number] [address] [place] [address] [place] Monocytes (Bld) [#/Vol] 0.59 10*3/uL Normal <0.87 [facility] Comment on above: Order Comment: Speci men Type: BLOOD SPECIMEN Ordering Facility: [facility] Address: [address] [place] [address] Performed By: #### 5 7021-8 #### [facility] CLIA [id number] [address] [place] [address] [place] Monocytes/100 WBC (Bld) 9.5 % Normal [facility] Comment on above: Order Comment: Speci men Type: BLOOD SPECIMEN Ordering Facility: [facility] Address: [address] [place] [address] Performed By: #### 5 7021-8 #### [facility] CLIA [id number] [address] [place] [address] [place] Neutrophils (Bld) [#/Vol] 3.53 10*3/uL Normal 1.45-7.50 [facility] Comment on above: Order Comment: Speci men Type: BLOOD SPECIMEN Ordering Facility: [facility] Address: [address] [place] [address] Performed By: #### 5 7021-8 #### [facility] CLIA [id number] [address] [place] [address] [place] Neutrophils/100 WBC (Bld) 57.1 % Normal [facility] Comment on above: Order Comment: Speci men Type: BLOOD SPECIMEN Ordering Facility: [facility] Address: [address] [place] [address] Performed By: #### 5 7021-8 #### [facility] CLIA [id number] [address] [place] [address] [place] Nucleated RBC (Bld) [#/Vol] 10*3/uL Normal <0.01 [facility] Comment on above: Order Comment: Speci men Type: BLOOD SPECIMEN Ordering Facility: [facility] Address: [address] [place] [address] Performed By: #### 5 7021-8 #### [facility] CLIA [id number] [address] [place] [address] [place] Nucleated RBC/100 WBC (Bld) [Ratio] 0.0 /[address] [facility] Comment on above: Order Comment: Speci men Type: BLOOD SPECIMEN Ordering Facility: [facility] Address: [address] [place] [address] Performed By: #### 5 7021-8 #### [facility] CLIA [id number] [address] [place], [place] [address] [place] Platelet mean volume (Bld) [Entitic vol] 8.4 fL Low 9.0-12.7 [facility] Comment on above: Order Comment: Speci men Type: BLOOD SPECIMEN Ordering Facility: [facility] Address: [address] [place] [address] Performed By: #### 5 7021-8 #### [facility] CLIA [id number] [address] [place] [address] [place] Platelets (Bld) [#/Vol] 295 10*3/uL Normal 150-400 [facility] Comment on above: Order Comment: Speci men Type: BLOOD SPECIMEN Ordering Facility: [facility] Address: [address] [place] [address] Performed By: #### 5 7021-8 #### [facility] CLIA [id number] [address] [place] [address] [place] RBC (Bld) [#/Vol] 3.92 10*6/uL Low 4.20-6.00 [facility] Comment on above: Order Comment: Speci men Type: BLOOD SPECIMEN Ordering Facility: [facility] Address: [address] [place] [address] Performed By: #### 5 7021-8 #### [facility] CLIA [id number] [address] [place] [address] [place] WBC (Bld) [#/Vol] 6.19 10*3/uL Normal 3.70-11.00 [facility] Comment on above: Order Comment: Speci men Type: BLOOD SPECIMEN Ordering Facility: [facility] Address: [address] [place] [address] Performed By: #### 5 7021-8 #### [facility] CLIA [id number] [address] [place], [place] [address] [facility] [place] Comprehensive metabolic 2000 panelon 02-28-2024 Albumin [Mass/Vol] 3.3 g/dL Normal 3.2-5.0 [facility] Comment on above: Order Comment: Speci men Type: BLOOD SPECIMEN Ordering Facility: [facility] Address: [address] [place] [address] Performed By: #### 2 4323-8 #### [facility] CLIA [id number] [address] [place] [address] [place] ALP [Catalytic activity/Vol] 83 U/L Normal 45-117 [facility] Comment on above: Order Comment: Speci men Type: BLOOD SPECIMEN Ordering Facility: [facility] Address: [address] [place] [address] Performed By: #### 2 4323-8 #### [facility] CLIA [id number] [address] [place] [address] [place] ALT [Catalytic activity/Vol] 12 U/L Low 13-61 [facility] Comment on above: Order Comment: Speci men Type: BLOOD SPECIMEN Ordering Facility: [facility] Address: [address] [place] [address] Result Comment: Resu lts may be falsely depressed after the administration of Sulfasalazine and/or Sulfapyridine. Performed By: #### 2 4323-8 #### [facility] CLIA [id number] [address] [place] [address] [place] Anion gap [Moles/Vol] 6 mmol/L Normal 5-16 [facility] Comment on above: Order Comment: Speci men Type: BLOOD SPECIMEN Ordering Facility: [facility] Address: [address] [place] [address] Performed By: #### 2 4323-8 #### [facility] CLIA [id number] [address] [place] [address] [place] AST [Catalytic activity/Vol] 17 U/L Normal 8-34 [facility] Comment on above: Order Comment: Speci men Type: BLOOD SPECIMEN Ordering Facility: [facility] Address: [address] [place] [address] Result Comment: Resu lts may be falsely depressed after the administration of Sulfasalazine and/or Sulfapyridine. Performed By: #### 2 4323-8 #### [facility] CLIA [id number] [address] [place] [address] [place] Bilirubin [Mass/Vol] 0.2 mg/dL Normal 0.2-1.0 [facility] Comment on above: Order Comment: Speci men Type: BLOOD SPECIMEN Ordering Facility: [facility] Address: [address] [place] [address] Performed By: #### 2 4323-8 #### [facility] CLIA [id number] [address] [place] [address] [place] Calcium [Mass/Vol] 10.5 mg/dL Normal 8.5-10.5 [facility] Comment on above: Order Comment: Speci men Type: BLOOD SPECIMEN Ordering Facility: [facility] Address: [address] [place] [address] Performed By: #### 2 4323-8 #### [facility] CLIA [id number] [address] [place] [address] [place] Chloride [Moles/Vol] 102 mmol/L Normal 98-107 [facility] Comment on above: Order Comment: Speci men Type: BLOOD SPECIMEN Ordering Facility: [facility] Address: [address] [place] [address] Performed By: #### 2 4323-8 #### [facility] CLIA [id number] [address] [place] [address] [place] CO2 [Moles/Vol] 30 mmol/L Normal 21-32 [facility] Comment on above: Order Comment: Speci men Type: BLOOD SPECIMEN Ordering Facility: [facility] Address: [address] [place] [address] Performed By: #### 2 4323-8 #### [facility] CLIA [id number] [address] [place], [place] [address] [place] Creatinine [Mass/Vol] 1.55 mg/dL High 0.50-1.40 [facility] Comment on above: Order Comment: Speci men Type: BLOOD SPECIMEN Ordering Facility: [facility] Address: [address] [id number] Result Comment: Mena ents receiving either N-Acetylcysteine (NAC) or Metamizole prior to venipuncture, may have falsely depressed results. Performed By: #### 2 4323-8 #### [facility] CLIA [id number] [address] [place] [address] [place] Creatinine and Glomerular filtration rate.predicted panel (S/P/Bld) 45 mL/min/1.73m??? Low >=60 [facility] Comment on above: Order Comment: Franny zavala Type: BLOOD SPECIMEN Ordering Facility: [facility] Address: [address] [place] [address] Result Comment: Karin mated Glomerular Filtration Rate [...] GFR. Performed By: #### 2 4323-8 #### [facility] CLIA [id number] [address] [place] [address] [place] Glucose [Mass/Vol] 109 mg/dL High 70-100 [facility] Comment on above: Order Comment: Franny zavala Type: BLOOD SPECIMEN Ordering Facility: [facility] Address: [address] [id number] Result Comment: The [place] [employer] (ADA) provides guidance for cutoff [...] Standards of Medical Care in Diabetes 2016, [place] [employer]. Diabetes Care. 2016.39(Suppl 1). Results may be falsely elevated after the administration of Sulfapyridine. Results may be falsely depressed after the administration of Sulfasalazine. Performed By: #### 2 4323-8 #### [facility] CLIA [id number] [address] [place] [address] [place] Potassium [Moles/Vol] 4.8 mmol/L Normal 3.5-5.1 [facility] Comment on above: Order Comment: Speci men Type: BLOOD SPECIMEN Ordering Facility: [facility] Address: [address] [place] [address] Performed By: #### 2 4323-8 #### [facility] CLIA [id number] [address] [place] [address] [place] Protein [Mass/Vol] 7.8 g/dL Normal 6.0-8.5 [facility] Comment on above: Order Comment: Speci men Type: BLOOD SPECIMEN Ordering Facility: [facility] Address: [address] [place] [address] Performed By: #### 2 4323-8 #### [facility] CLIA [id number] [address] [place] [address] [place] Sodium [Moles/Vol] 138 mmol/L Normal 136-145 [facility] Comment on above: Order Comment: Celestinai sally Type: BLOOD SPECIMEN Ordering Facility: [facility] Address: [address] [place] [address] Performed By: #### 2 4323-8 #### [facility] CLIA [id number] [address] [place] [address] [place] Urea nitrogen [Mass/Vol] 28 mg/dL High 7-26 [facility] Comment on above: Order Comment: Celestinai men Type: BLOOD SPECIMEN Ordering Facility: [facility] Address: [address] [place] [address] Performed By: #### 2 4323-8 #### [facility] CLIA [id number] [address] [place] [address] [facility] ED NOTEon 02-28-2024 ED NOTE HNO ID: [id number] Author: WYATT QUIROS RN Service: Emergency Medicine Author Type: Registered Nurse Type: ED Notes Filed: 02/28/2024 17:58 Note Text: Pt ambulated independently with steady gait to and from restroom. [facility] ED NOTE HNO ID: [id number] Author: WYATT QUIROS RN Service: Emergency Medicine Author Type: Registered Nurse Type: ED Notes Filed: 02/28/2024 16:44 Note Text: Pt alert and oriented, respirations regular and unlabored. Pt reports being referred from his PCP d/t kidney function results. Pt endorses R flank pain, urinary urgency and frequency, dribbling when voiding with hx prostate CA. Denies fevers, chills, N/V/D. [facility] ED NOTE HNO ID: [id number] Author: WYATT QUIROS RN Service: Emergency Medicine Author Type: Registered Nurse Type: ED Notes Filed: 02/28/2024 16:43 Note Text: [facility] ED PROV NOTEon 02-28-2024 ED PROV NOTE HNO ID: [id number] Author: ISIDRO FERRARI MD Service: Emergency Medicine [...] Impression Clini (more content not included)... Normal [facility] ED Triage Noteon 02-28-2024 ED Triage Note HNO ID: [id number] Author: RUTH PHAM PA-C Service: ? Author Type: Physician Call Center Supervisor Type: ED Triage Notes Filed: 02/28/2024 15:35 [...] reflex Culture SIGNATURE: Ruth Pham PA-C Normal [facility] Urinalysis complete panel (U )on 02-28-2024 Bacteria LM.HPF (Urine sed) [#/Area] None Seen Normal None Seen [facility] Comment on above: Order Comment: Speci men Type: URINE SPECIMEN Ordering Facility: [facility] Address: [address] [place] [address] Performed By: #### 2 4356-8 #### [facility] CLIA [id number] [address] [place] [address] [place] Bilirubin Ql (U) Negative Normal Negative [facility] Comment on above: Order Comment: Speci men Type: URINE SPECIMEN Ordering Facility: [facility] Address: [address] [place] [address] Performed By: #### 2 4356-8 #### [facility] CLIA [id number] [address] [place] [address] [place] Clarity (Unsp spec) Clear Normal Clear [facility] Comment on above: Order Comment: Speci men Type: URINE SPECIMEN Ordering Facility: [facility] Address: [address] [place] [address] Performed By: #### 2 4356-8 #### [facility] CLIA [id number] [address] [place] [address] [place] Color (U) Yellow Normal Yellow [facility] Comment on above: Order Comment: Speci men Type: URINE SPECIMEN Ordering Facility: [facility] Address: [address] [place] [address] Performed By: #### 2 4356-8 #### [facility] CLIA [id number] [address] [place] [address] [place] Epithelial cells LM.HPF (Urine sed) [#/Area] None Seen Normal [facility] Comment on above: Order Comment: Speci men Type: URINE SPECIMEN Ordering Facility: [facility] Address: [address] [place] [address] Performed By: #### 2 4356-8 #### [facility] CLIA [id number] [address] [place] [address] [place] Glucose Test strip (U) [Mass/Vol] Negative Normal Negative [facility] Comment on above: Order Comment: Speci men Type: URINE SPECIMEN Ordering Facility: [facility] Address: [address] [place] [address] Performed By: #### 2 4356-8 #### [facility] CLIA [id number] [address] [place] [address] [place] Hemoglobin Ql (U) Negative Normal Negative [facility] Comment on above: Order Comment: Speci men Type: URINE SPECIMEN Ordering Facility: [facility] Address: [address] [place] [address] Performed By: #### 2 4356-8 #### [facility] CLIA [id number] [address] [place] [address] [place] Ketones Ql (U) Negative Normal Negative [facility] Comment on above: Order Comment: Speci men Type: URINE SPECIMEN Ordering Facility: [facility] Address: [address] [place] [address] Performed By: #### 2 4356-8 #### [facility] CLIA [id number] [address] [place] [address] [place] Leukocyte esterase Test strip Ql (U) Negative Normal Negative [facility] Comment on above: Order Comment: Speci men Type: URINE SPECIMEN Ordering Facility: [facility] Address: [address] [place] [address] Performed By: #### 2 4356-8 #### [facility] CLIA [id number] [address] [place] [address] STATES [facility] Nitrite Ql (U) Negative Normal Negative [facility] Comment on above: Order Comment: Speci men Type: URINE SPECIMEN Ordering Facility: [facility] Address: [address] [place] [address] Performed By: #### 2 4356-8 #### [facility] CLIA [id number] [address] [place] [address] STATES [facility] pH (U) 7.0 [pH] Normal 5.0-8.0 [facility] Comment on above: Order Comment: Speci men Type: URINE SPECIMEN Ordering Facility: [facility] Address: [address] [place] [address] Performed By: #### 2 4356-8 #### [facility] CLIA [id number] [address] [place] [address] [place] Protein (U) [Mass/Vol] Negative Normal Negative [facility] Comment on above: Order Comment: Speci men Type: URINE SPECIMEN Ordering Facility: [facility] Address: [address] [place] [address] Performed By: #### 2 4356-8 #### [facility] CLIA [id number] [address] [place] [address] [place] RBC LM.HPF (Urine sed) [#/Area] 0-3 /HPF Normal 0-3 /HPF [facility] Comment on above: Order Comment: Speci men Type: URINE SPECIMEN Ordering Facility: [facility] Address: [address] [place] [address] Performed By: #### 2 4356-8 #### [facility] CLIA [id number] [address] [place] [address] [place] Specific gravity (U) [Rel density] 1.011 Normal 1.005-1.030 [facility] Comment on above: Order Comment: Speci men Type: URINE SPECIMEN Ordering Facility: [facility] Address: [address] [place] [address] Performed By: #### 2 4356-8 #### [facility] CLIA [id number] [address] [place] [address] Urobilinogen Ql (U) Negative Normal Negative [facility] Comment on above: Order Comment: Speci men Type: URINE SPECIMEN Ordering Facility: [facility] Address: [address] [place] [address] Performed By: #### 2 4356-8 #### [facility] CLIA [id number] [address] [place] [address] WBC LM.HPF (Urine sed) [#/Area] 0-5 /HPF Normal 0-5 /HPF [facility] Comment on above: Order Comment: Speci men Type: URINE SPECIMEN Ordering Facility: [facility] Address: [address] [place] [address] Performed By: #### 2 4356-8 #### [facility] CLIA [id number] [address] [place] [address] OF MICKEY CNOVSPon 02-27-2024 CNOVSP Visit (SP) [facility] -- CLINT VILLAR ([id number]) 1940 M Date Time Provider Department 02/27/24 [...] APPEARANCE: We (more content not included)... Normal [facility] CT Abdomen and Pelvis WO con traston [...] progressive retroperitoneal lymphadenopathy. No obstructing calculus identified. Membership Sales Manager: [facility] Transcribe Date/Time: Feb 27 2024 1:09P Dictated by : SRUTHI HO MD This examination was interpreted and the report reviewed and electronically signed by: SRUTHI HO MD on Feb 27 2024 1:39PM [facility] * * *Final Report* * * DATE OF EXAM: Feb 27 2024 12:35PM [facility] 0531 - CT ABD/PEL WO IVCON [...] in size from the previous study. 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 Localizer images: No additional findings. [facility] Provider, [place] - 02/27/2024 * * *Final Report* * * DATE OF EXAM: Feb 27 2024 12:35PM [facility] 0531 - CT ABD/PEL WO IVCON [...] in size from the previous study. [employer] service representative lymph nodes: * Retrocaval lymph node (2:36) [...] progressive retroperitoneal lymphadenopathy. No obstructing calculus identified. Membership Sales Manager: [employer] Transcribe Date/Time: Feb 27 2024 1:09P Dictated by : SRUTHI HO MD This examination was interpreted and the report reviewed and electronically signed by: SRUTHI HO MD on Feb 27 2024 1:39PM EST [facility] Radiology Study observation (narrative) [facility] CT Abdomen and Pelvis WO con trastOrdered By: Ccf Provider on 02-27-2024 [facility] CBC panel Auto (Bld)on 02-25 Erythrocyte distribution width (RBC) [Ratio] 13.2 % 11.5 - 15.0 % [facility] Hematocrit (Bld) [Volume fraction] 38.1 % Low 39.0 - 51.0 % [facility] Hemoglobin (Bld) [Mass/Vol] 12.3 g/dL Low 13.0 - 17.0 g/dL [facility] Interpretation and review of laboratory results Abnormal [facility] MCH (RBC) [Entitic mass] 32.1 pg 26.0 - 34.0 pg [facility] MCHC (RBC) [Mass/Vol] 32.3 g/dL 30.5 - 36.0 g/dL [facility] MCV (RBC) [Entitic vol] 99.5 fL 80.0 - 100.0 fL [facility] Nucleated RBC (Bld) [#/Vol] NINF [facility] Platelet mean volume (Bld) [Entitic vol] 9.0 fL 9.0 - 12.7 fL [facility] Platelets (Bld) [#/Vol] 364 10*3/uL [facility] RBC (Bld) [#/Vol] 3.83 10*6/uL Low 4.20 - 6.0 0 m/uL [facility] WBC (Bld) [#/Vol] 7.66 10*3/uL [facility] [place] Whole body Bone Viewson 1 IMPRESSION: Findings suspicious for osseous metastases. Consider correlation with [facility] PET/CT. LEFT hydronephrosis/hydroureter onephrosis. Given the configuration of the urinary bladder distended secondary to outlet obstruction. Renal ultrasound, as indicated. COMMUNICATION: Communicated with Dr. JOHAN PAYNE on 02/20/2024 4:55 PM via [email or web address] staff message. Membership Sales Manager: [employer] Transcribe Date/Time: Feb 20 2024 4:45P Dictated by : JUSTYN AYALA MD This examination was interpreted and the report reviewed and electronically signed by: JUSTYN AYALA MD on Feb 20 2024 4:55PM [facility] DIVISION OF RADIOLOGY * * *Final Report* * * DATE OF EXAM: Feb 20 2024 4:19PM [facility] 0014 [facility] BONE WHOLE BODY / PROCEDURE REASON: multiple [...] confirmed. DIVISION OF RADIOLOGY Provider, [facility] - 02/20/2024 * * *Final Report* * [...] JOHAN PAYNE on 02/20/2024 4:55 PM via [email or web address] staff message. Membership Sales Manager: [facility] Transcribe Date/Time: Feb 20 2024 4:45P Dictated by : JUSTYN AYALA MD This examination was interpreted and the report reviewed and electronically signed by: JUSTYN AYALA MD on Feb 20 2024 4:55PM EST [facility] Radiology Study observation (narrative) [facility] Whole body Bone ViewsOrde red By: Ccf Provider on 02-20-2024 [facility] UA DIP, URINE (POC)on 2023 BILIRUBIN UA (POCT) Negative Negative [facility] CLARITY UA (POCT) Clear [facility] COLOR UA (POCT) Yellow [facility] GLUCOSE UA (POCT) Negative Negative mg/dL [facility] Hemoglobin Ql (U) Trace-intact Abnormal Negative [facility] Interpretation and review of laboratory results Abnormal [facility] KETONE UA (POCT) Negative Negative mg/dL [facility] LEUKOCYTES UA (POCT) Negative Negative [facility] NITRITE UA (POCT) Negative [facility] PH UA (POCT) 7.5 4.5 - 8.0 [facility] Protein Ql (U) 100 mg/dL Abnormal Negative [facility] SPECIFIC GRAVITY UA (POCT) 1.015 1.005 - 1.030 [facility] UROBILINOGEN UA (POCT) 0.2 Normal E.U./dL [facility] Location:[facility], [address], [address] [place] [address] POINT OF CARE [facility] UA DIP, URINE (POC)on 2023 BILIRUBIN UA (POCT) Negative Negative [facility] CLARITY UA (POCT) Clear [facility] COLOR UA (POCT) Yellow [facility] GLUCOSE UA (POCT) Negative Negative mg/dL [facility] Hemoglobin Ql (U) Negative Negative [facility] KETONE UA (POCT) Negative Negative mg/dL [facility] LEUKOCYTES UA (POCT) Negative Negative [facility] NITRITE UA (POCT) Negative Negative [facility] PH UA (POCT) 7.0 4.5 - 8.0 [facility] Protein Ql (U) Negative Negative mg/dL [facility] SPECIFIC GRAVITY UA (POCT) 1.015 1.005 - 1.030 [facility] UROBILINOGEN UA (POCT) 0.2 Normal E.U./dL [facility] Location:[address], [address] [facility] POINT OF CARE [facility] Colonoscopy Study observatio non [facility] Patient Name: Clint Villar [...] prior dose. Procedure Code(s): --- Professional --- 87208, Colonoscopy, flexible; diagnostic, including collection of specimen(s) by brushing or washing, (more content not included)... PROVATION [facility] Radiology Study observation (narrative) [facility] CT Colon and Rectum W air co ntrast PROrdered By: Cc Provider on 12-04-2023 Interpretation and review of laboratory results Abnormal [facility] Radiology Result ACTIONABLE Abnormal [facility] Comment on above: This report contains [...] contact your provider for the next steps. [facility] CT Colon and Rectum W air co [...] be communicated with the ordering provider via [employer] staff message or phone message by [employer] within 2 business days of report finalization. --END OF FINDING-- Membership Sales Manager: ABRAHAN Transcribe Date/Time: Dec 04 2023 12:52P Dictated by : DIXIE FRANKS MD This examination was interpreted and the report reviewed and electronically signed by: DIXIE FRANKS MD on Dec 04 2023 3:02PM [facility] DIVISION OF RADIOLOGY * * *Final Report* * * DATE OF EXAM: Dec 04 2023 9:10AM [facility] 0542 - CT COLONOGRAPHY SCREEN WO IVCON [...] Tissues: No significant findings. Lower thorax: Unremarkable. Stripping Shovel Oiler (topogram) images: DIVISION OF RADIOLOGY Provider, [facility] - 12/04/2023 * * *Final Report* * * DATE OF EXAM: Dec 04 2023 9:10AM [facility] 0542 - CT COLONOGRAPHY SCREEN WO IVCON [...] Tissues: No significant findings. Lower thorax: Unremarkable. Stripping Shovel Oiler (topogram) images: IMPRESSION IMPRESSION: Broad-based mass in [...] be communicated with the ordering provider via [employer] staff message or phone message by [employer] within 2 business days of report finalization. --END OF FINDING-- Membership Sales Manager: ABRAHAN Transcribe Date/Time: Dec 04 2023 12:52P Dictated by : DIXIE FRANKS MD This examination was interpreted and the report reviewed and electronically signed by: DIXIE FRANKS MD on Dec 04 2023 3:02PM EST [facility] Radiology Study observation (narrative) [facility] CNOVon 10-22-2023 CNOV Office Visit ([facility]) -- CLINT VILLAR ([id number]) 1940 M Date Time Provider Department 10/22/23 11:20 AM CHRIS BARRERA During your visit today, we recorded the following information about you: Pulse Blood pressure Weight Height 47/minute 152/98 95.3 kg 1.702 m Kristy Briscoe MA 10/22/2023 11:06 AM Signed Patient has no cardiac complaints today. Chris Barrera MD 10/22/2023 12:11 PM Signed PRIMARY CARE PHYSICIAN: Cody Carrington [address] [place] [address] REFERRING PHYSICIAN: Sruthi Larkin MD [address] [facility] [address] Patient Care Team: Cody Carrington MD as PCP - General (Internal Medicine) Sruthi Larkin as Specialty Drum Drier (Cardiology) CHIEF COMPLAINT: Evaluation of arrhythmia HISTORY OF PRESENT ILLNESS: Mr. Villar is a 83 year old male who presents today for evaluation of arrhythmia, history of atrial fibrillation, referred by Dr. Larkin of [facility]. Mr. Villar states he was diagnosed with the atrial fibrillation in early 2023. Primary care physician found him to be in atrial fibrillation, sent him to [facility]. Admitted to hospital. Treated with medications [...] pain, orthopnea, (more content not included)... Normal [facility] ECG B/O W INTERP (MED OFFICE )on 10-22-2023 Sinus bradycardia 45 bpm; normal conduction intervals (DE 178 ms, QRS 88 ms); QTc 406 ms [facility] Tray 09-24-2023 CNPMadonna Telephone (AGCARDPOB ) -- CLINT VILLAR ([id number]) 1940 M Date Time Provider Department 09/24/23 DIXIE FRANCISCO AGCARDPOB During your visit today, we recorded the following information about you: Dixie Francisco MD 09/24/2023 3:26 PM Addendum This is a patient who sees Dr. Sruthi Larkin down in [place] and Dr. Larkin would like this patient [...] [D64.9] 12/27/2021 Positive colorectal cancer screening using [place]*01/03/2023 Elevated PSA [R97.20] 01/09/2023 New onset atrial fibrillation (HCC) [I48.91] 06/23/2023 Obesity, Class I, BMI 30-34.9 [E66.9] 07/24/2023 Encounter Status:Closed by DIXIE FRANCISCO on 09/26/23 Normal [facility] Absolute lymphocyte countOrd ered By: Lor Aguilar on 02-13-2024 Lymphocytes Auto (Unsp spec) [#/Vol] 1.77 10*3/uL 0.83-4.51 [facility] Automated lymphocyte count a s percentage of total leukocytesOrdered By: Lor Aguilar on 06-17-2023 Lymphocytes/100 WBC Auto (Unsp spec) 20.2 % 19-41 [facility] Basophil percentageOrdered B y: Lor Aguilar on 06-17-2023 Basophil percentage 3.1 mg/dL 2.5-4.9 [facility] Basophils/100 WBC (Bld) 0.3 % 0-1 [facility] Bilirubin [Mass/Vol] 0.60 mg/dL 0.20-1.00 [facility] Comment on above: For patients on eltr ombopag therapy, use of Dimension [place] TBIL is not recommended. Chloride [Moles/Vol] 103 mmol/L 98-107 [facility] Eosinophils/100 WBC (Bld) 0.2 % 0-5 [facility] Glucose [Mass/Vol] 116 mg/dL 74-106 [facility] Comment on above: Fasting Glucose resu lt from 100 to 125 mg/dL suggests IMPAIRED HOMEOSTASIS per A.D.A. criteria. Hemoglobin (Bld) [Mass/Vol] 12.2 g/dL 13.0-16.5 [facility] Monocytes/100 WBC (Bld) 15.8 % 0-10 [facility] Neutrophils (Bld) [#/Vol] 5.6 10*3/uL 2.0-7.7 [facility] Neutrophils/100 WBC (Bld) 63.3 % 47-70 [facility] Potassium [Moles/Vol] 4.5 mmol/L 3.5-5.1 [facility] Protein [Mass/Vol] 6.3 g/dL 6.4-8.2 [facility] Sodium [Moles/Vol] 139 mmol/L 136-145 [facility] WBC (Bld) [#/Vol] 8.8 10*3/uL 4.4-11.0 [facility] Determination of erythrocyte mean corpuscular volume (MCV)Ordered By: Lor Aguilar on 06-17-2023 MCV (RBC) [Entitic vol] 94.3 fL 80-94 [facility] Erythrocyte distribution wid th ratioOrdered By: Lor Aguilar on 06-17-2023 Erythrocyte distribution width (RBC) [Ratio] 14.0 % 11.6-14.6 [facility] Erythrocyte distribution wid th standard deviationOrdered By: Lor Aguilar on 06-17-2023 Erythrocyte distribution width (RBC) [Entitic vol] 47.5 fL 35.1-43.9 [facility] Hematocrit Auto (Bld) [Volum e fraction]Ordered By: Lor Aguilar on 06-17-2023 Hematocrit (Bld) [Volume fraction] 36.3 % 40-54 [facility] Immature granulocytes/100 WB C Auto (Bld)Ordered By: Lor Aguilar on 06-17-2023 Immature granulocytes/100 WBC (Bld) 0.200 % 0.0-0.9 [facility] Comment on above: IG% - Immature Granu locytes (promyelocytes, myelocytes and metamyelocytes) > 1% indicates that a LEFT SHIFT is Present. Laboratory - Chemistry and C hemistry - challengeOrdered By: Lor Aguilar on 06-17-2023 Albumin/Globulin [Mass ratio] 1.0 {ratio} 0.9-2.4 [facility] ALP [Catalytic activity/Vol] 52 U/L 45-117 [facility] ALT [Catalytic activity/Vol] 15 U/L 16-61 [facility] CO2 [Moles/Vol] 29.0 mmol/L 21.0-32.0 [facility] Globulin (S) [Mass/Vol] 3.2 g/dL 2.2-4.2 [facility] Magnesium [Mass/Vol] 2.1 mg/dL 1.6-2.6 [facility] Urea nitrogen/Creatinine [Mass ratio] 16.0 mg/mg 10-20 [facility] Laboratory - Hematology and Cell countsOrdered By: Lor Aguilar on 06-17-2023 MCH (RBC) [Entitic mass] 31.7 pg 27.0-32.0 [facility] MCHC (RBC) [Mass/Vol] 33.6 g/dL 32-36 [facility] Nucleated RBC/100 WBC (Bld) [Ratio] 0 % 0-5 [facility] Platelet mean volume (Bld) [Entitic vol] 8.9 fL 6.2-12.0 [facility] Platelets (Bld) [#/Vol] 177 10*3/uL 150-450 [facility] No Panel InformationOrdered By: Lor Aguilar on 06-17-2023 Estimated Creatinine Clearance Calc 64.35 ml/min [facility] Estimated GFR (MDRD) Amer 92 mL/min >60 [facility] Comment on above: GFR Calc Estimated GFR (MDRD) Non-Af Amer 76 mL/min >60 [facility] Comment on above: Non- GFR Calc Troponin I High Sensitivity 32 pg/mL 3.0-78.0 [facility] Comment on above: Please Note: New Iveth t Units and Gender Specific Reference Ranges. For more information see Policy Stat Procedure [place] High Sensitivity Troponin (TNIH) and attachments. RBC Auto (Bld) [#/Vol]Ordere d By: Lor Aguilar on 06-17-2023 RBC (Bld) [#/Vol] 3.85 10*6/uL 4.6-6.2 [facility] Serum or plasma calcium fabienne urement (mass/volume)Ordered By: Lor Aguilar on 06-17-2023 Calcium [Mass/Vol] 8.7 mg/dL 8.5-10.1 [facility] Serum or plasma creatinine m easurement (mass/volume)Ordered By: Lor Aguilar on 06-17-2023 Creatinine [Mass/Vol] 1.00 mg/dL 0.70-1.30 [facility] Comment on above: The validity of the calculated GFR & GFRAA in patients over 70 years has not been determined. Clinical correlation is essential. Serum or plasma urea nitroge n measurement (mass/volume)Ordered By: Lor Aguilar on 06-17-2023 Urea nitrogen [Mass/Vol] 16 mg/dL 7-18 [facility] Thin prep Papanicolaou smear with manual screeningOrdered By: Lor Aguilar on 06-17-2023 Thin prep Papanicolaou smear with manual screening 3.1 g/dL 3.2-5.0 [facility] Thin prep Papanicolaou smear with manual screening 22 U/L 15-37 [facility] Thin prep Papanicolaou smear with manual screening 7 5-15 [facility] Absolute lymphocyte countOrd ered By: Zoë Sparks on 06-16-2023 Lymphocytes Auto (Unsp spec) [#/Vol] 2.08 10*3/uL 0.83-4.51 [facility] Automated lymphocyte count a s percentage of total leukocytesOrdered By: Zoë Sparks on 06-16-2023 Lymphocytes/100 WBC Auto (Unsp spec) 16.6 % 19-41 [facility] Basophil percentageOrdered B y: Zoë Sparks on 06-16-2023 Basophils/100 WBC (Bld) 0.3 % 0-1 [facility] Chloride [Moles/Vol] 100 mmol/L 98-107 [facility] Eosinophils/100 WBC (Bld) 0.2 % 0-5 [facility] Glucose [Mass/Vol] 125 mg/dL 74-106 [facility] Comment on above: Fasting Glucose resu lt from 100 to 125 mg/dL suggests IMPAIRED HOMEOSTASIS per A.D.A. criteria. Hemoglobin (Bld) [Mass/Vol] 14.0 g/dL 13.0-16.5 [facility] Monocytes/100 WBC (Bld) 13.0 % 0-10 [facility] Neutrophils (Bld) [#/Vol] 8.7 10*3/uL 2.0-7.7 [facility] Neutrophils/100 WBC (Bld) 69.4 % 47-70 [facility] Potassium [Moles/Vol] 4.0 mmol/L 3.5-5.1 [facility] Sodium [Moles/Vol] 135 mmol/L 136-145 [facility] WBC (Bld) [#/Vol] 12.5 10*3/uL 4.4-11.0 [facility] Blood manual differential co mment interpretation (narrative result)Ordered By: Zoë Sparks on 06-16-2023 Manual differential comment Ricky (Bld) [Interp] SCANNED [facility] Comment on above: MONOCYTOSIS NOTED Determination of erythrocyte mean corpuscular volume (MCV)Ordered By: Zoë Sparks on 06-16-2023 MCV (RBC) [Entitic vol] 95.7 fL 80-94 [facility] Erythrocyte distribution wid th ratioOrdered By: Zoë Sparks on 06-16-2023 Erythrocyte distribution width (RBC) [Ratio] 14.0 % 11.6-14.6 [facility] Erythrocyte distribution wid th standard deviationOrdered By: Zoë Sparks on 06-16-2023 Erythrocyte distribution width (RBC) [Entitic vol] 49.2 fL 35.1-43.9 [facility] Hematocrit Auto (Bld) [Volum e fraction]Ordered By: Zoë Sparks on 06-16-2023 Hematocrit (Bld) [Volume fraction] 42.6 % 40-54 [facility] Immature granulocytes/100 WB C Auto (Bld)Ordered By: [facility] on 06-16-2023 Immature granulocytes/100 WBC (Bld) 0.500 % 0.0-0.9 [facility] Comment on above: IG% - Immature Granu locytes (promyelocytes, myelocytes and metamyelocytes) > 1% indicates that a LEFT SHIFT is Present. Laboratory - Chemistry and C hemistry - challengeOrdered By: Zoë Sparks on 06-16-2023 CO2 [Moles/Vol] 25.0 mmol/L 21.0-32.0 [facility] Urea nitrogen/Creatinine [Mass ratio] 14.1 mg/mg 10-20 [facility] Laboratory - Hematology and Cell countsOrdered By: Zoë Sparks on 06-16-2023 MCH (RBC) [Entitic mass] 31.5 pg 27.0-32.0 [facility] MCHC (RBC) [Mass/Vol] 32.9 g/dL 32-36 [facility] Nucleated RBC/100 WBC (Bld) [Ratio] 0 % 0-5 [facility] Platelet mean volume (Bld) [Entitic vol] 9.3 fL 6.2-12.0 [facility] Platelets (Bld) [#/Vol] 191 10*3/uL 150-450 [facility] No Panel InformationOrdered By: Zoë Sparks on 06-16-2023 Estimated Creatinine Clearance Calc 45.74 ml/min [facility] Estimated GFR (MDRD) Amer 62 mL/min >60 [facility] Comment on above: GFR Calc Estimated GFR (MDRD) Non-Af Amer 51 mL/min >60 [facility] Comment on above: Non- GFR Calc Troponin I High Sensitivity 28 pg/mL 3.0-78.0 [facility] Comment on above: Please Note: New Iveth t Units and Gender Specific Reference Ranges. For more information see Policy Stat Procedure [place] High Sensitivity Troponin (TNIH) and attachments. RBC Auto (Bld) [#/Vol]Ordere d By: Zoë Sparks on 06-16-2023 RBC (Bld) [#/Vol] 4.45 10*6/uL 4.6-6.2 [facility] Review by pathologistOrdered By: Zoë Sparks on 06-16-2023 Pathologist review Ricky (Unsp spec) [Interp] Francesca sims [facility] Pathologist review Ricky (Unsp spec) [Interp] Reviewed [facility] Comment on above: Previous reported re sult: Francesca sims Edited by: RGOOD on 06/17/23:1424Leukocytosis.Macrocytosis.Clinical correlation necessary.Sanket Landon M.D. 06/17/23 AMENDED REPORT 06/17/23 1424 PATH REV previously reported as: Francesca sims Serum or plasma calcium fabienne urement (mass/volume)Ordered By: oZë Sparks on 06-16-2023 Calcium [Mass/Vol] 9.7 mg/dL 8.5-10.1 [facility] Serum or plasma creatinine m easurement (mass/volume)Ordered By: Zoë Sparks on 06-16-2023 Creatinine [Mass/Vol] 1.42 mg/dL 0.70-1.30 [facility] Comment on above: The validity of the calculated GFR & GFRAA in patients over 70 years has not been determined. Clinical correlation is essential. Serum or plasma thyroid stim ulating hormone (TSH) measurement (units/volume)Ordered By: Lor Aguilar on 06-16-2023 TSH Qn 3.42 uIU/mL 0.358-3.74 [facility] Serum or plasma urea nitroge n measurement (mass/volume)Ordered By: Zoë Sparks on 06-16-2023 Urea nitrogen [Mass/Vol] 20 mg/dL 7-18 [facility] Thin prep Papanicolaou smear with manual screeningOrdered By: Zoë Sparks on 02-12-2024 Thin prep Papanicolaou smear with manual screening 10 5-15 [facility] XR Chest PA and Lateralon IMPRESSION: No acute radiographic abnormality. Membership Sales Manager: ABRAHAN Transcribe Date/Time: May 08 2023 2:04P Dictated by : MARSHALL LARA MD This examination was interpreted and the report reviewed and electronically signed by: MARSHALL LARA MD on May 08 2023 2:04PM [facility] DIVISION OF RADIOLOGY * * *Final Report* [...] soft tissues: Unremarkable. DIVISION OF RADIOLOGY Provider, [facility] - 05/08/2023 * * *Final Report* * [...] Unremarkable. IMPRESSION IMPRESSION: No acute radiographic abnormality. Membership Sales Manager: ABRAHAN Transcribe Date/Time: May 08 2023 2:04P Dictated by : MARSHALL LARA MD This examination was interpreted and the report reviewed and electronically signed by: MARSHALL LARA MD on May 08 2023 2:04PM EST [facility] Radiology Study observation (narrative) [facility] XR Chest PA and LateralOrder ed By: Ccf Provider on 05-08-2023 [facility] UA DIP, URINE (POC)on 2022 BILIRUBIN UA (POCT) Negative Negative [facility] CLARITY UA (POCT) Clear [facility] COLOR UA (POCT) Yellow [facility] GLUCOSE UA (POCT) Negative Negative mg/dL [facility] Hemoglobin Ql (U) Moderate Abnormal Negative [facility] nd [facility] KETONE UA (POCT) Negative Negative mg/dL [facility] LEUKOCYTES [facility]) [facility]) [facility] Negative [facility] PH UA (POCT) 6.0 4.5 - 8.0 [facility] Protein Ql (U) Negative Negative mg/dL [facility] SPECIFIC GRAVITY UA (POCT) 1.025 1.005 - 1.030 [facility] UROBILINOGEN UA (POCT) 0.2 E.U./dL Normal E.U./dL [facility] Vital Signs Date Time Vital Sign Value Performing Clinician Faci lity 01-04-2025 09:39-0400 Diastolic blood pressure 75 mm[Hg] Cody Carrington MD Work Phone: [facility] 01-04-2025 09:39-0400 Heart rate 47 /min Cody Carrington MD Work Phone: [facility] 01-04-2025 09:39-0400 Systolic blood pressure 138 mm[Hg] Cody Carrington MD Work Phone: [facility] 01-04-2025 09:25-0400 Body height 167 cm Cody Carrington MD Work Phone: [facility] 01-04-2025 09:25-0400 Body mass index (BMI) [Ratio] 32.38 kg/m2 Cody Carrington MD Work Phone: [facility] 01-04-2025 09:25-0400 Body weight 90.3 kg Cody Carrington MD Work Phone: [facility] 11-22-2024 13:49-0400 Body height 167.[address] Cody Carrington MD Work Phone: [facility] 11-22-2024 13:49-0400 Body mass index (BMI) [Ratio] 32.4 kg/m2 Dr. Cody Carrington MD Work Phone: [facility] 11-22-2024 13:49-0400 Body weight 91.[address] Cody Carrington MD Work Phone: [facility] 11-22-2024 13:49-0400 Diastolic blood pressure 76 mm[Hg] Dr. Cody Carrington MD Work Phone: [facility] 11-22-2024 13:49-0400 Heart rate 52 /min Dr. Cody Carrington MD Work Phone: [facility] 11-22-2024 13:49-0400 Respiratory rate 16 /min Dr. Cody Carrington MD Work Phone: [facility] 11-22-2024 13:49-0400 Systolic blood pressure 159 mm[Hg] Dr. Cody Carrington MD Work Phone: [facility] 11-12-2024 08:52-0400 Body height 167 cm Johan Payne MD Work Phone: [facility] 11-12-2024 08:52-0400 Body mass index (BMI) [Ratio] 32.61 kg/m2 Johan Payne MD Work Phone: [facility] 11-12-2024 08:52-0400 Body temperature 97.2 [degF] Johan Payne MD Work Phone: [facility] 11-12-2024 08:52-0400 Body weight 90.95 kg Johan Payne MD Work Phone: [facility] 11-12-2024 08:52-0400 Diastolic blood pressure 79 mm[Hg] Johan Payne MD Work Phone: [facility] 11-12-2024 08:52-0400 Heart rate 51 /min Johan Payne MD Work Phone: [facility] 11-12-2024 08:52-0400 SaO2% (BldA) [Mass fraction] 97 % Johan Payne MD Work Phone: [facility] 11-12-2024 08:52-0400 Systolic blood pressure 151 mm[Hg] Johan Payne MD Work Phone: [facility] 10-27-2024 15:43-0400 Diastolic blood pressure 74 mm[Hg] Cody Carrington MD Work Phone: [facility] 10-27-2024 15:43-0400 Heart rate 51 /min Cody Carrington MD Work Phone: [facility] 10-27-2024 15:43-0400 Systolic blood pressure 150 mm[Hg] Cody Carrington MD Work Phone: [facility] 10-27-2024 15:32-0400 Body mass index (BMI) [Ratio] 32.52 kg/m2 Cody Carrington MD Work Phone: [facility] 10-27-2024 15:32-0400 Body weight 91.4 kg Cody Carrington MD Work Phone: [facility] 07-15-2024 10:15-0400 Body height 167.6 cm Radha Larsen MD Work Phone: [facility] 07-15-2024 10:15-0400 Body mass index (BMI) [Ratio] 32.28 kg/m2 Radha Larsen MD Work Phone: [facility] 07-15-2024 10:15-0400 Body weight 90.72 kg Radha Larsen MD Work Phone: [facility] 07-15-2024 10:15-0400 Diastolic blood pressure 58 mm[Hg] Radha Larsen MD Work Phone: [facility] 07-15-2024 10:15-0400 Systolic blood pressure 132 mm[Hg] Radha Larsen MD Work Phone: [facility] 07-09-2024 08:24-0500 Body mass index (BMI) [Ratio] 32.53 kg/m2 Johan Payne MD Work Phone: [facility] 07-09-2024 08:24-0500 Body temperature 97 [degF] Johan Payne MD Work Phone: [facility] 07-09-2024 08:24-0500 Body weight 90.72 kg Johan Payne MD Work Phone: [facility] 07-09-2024 08:24-0500 Diastolic blood pressure 67 mm[Hg] Johan Payne MD Work Phone: [facility] 07-09-2024 08:24-0500 Heart rate 61 /min Johan Payne MD Work Phone: [facility] 07-09-2024 08:24-0500 SaO2% (BldA) [Mass fraction] 97 % Johan Payne MD Work Phone: [facility] 07-09-2024 08:24-0500 Systolic blood pressure 125 mm[Hg] Johan Payne MD Work Phone: [facility] 06-16-2024 14:51-0500 Body mass index (BMI) [Ratio] 32.09 kg/m2 Valentina Clutter PA-C Work Phone: [facility] 06-16-2024 14:51-0500 Body temperature 98.2 [degF] Valentina Clutter PA-C Work Phone: [facility] 06-16-2024 14:51-0500 Body weight 89.5 kg Valentina Clutter PA-C Work Phone: [facility] 06-16-2024 14:51-0500 Diastolic blood pressure 61 mm[Hg] Valentina Clutter PA-C Work Phone: [facility] 06-16-2024 14:51-0500 Heart rate 58 /min Valentina Clutter PA-C Work Phone: [facility] 06-16-2024 14:51-0500 Respiratory rate 18 /min Valentina Clutter PA-C Work Phone: [facility] 06-16-2024 14:51-0500 SaO2% (BldA) [Mass fraction] 97 % Valentina Clutter PA-C Work Phone: [facility] 06-16-2024 14:51-0500 Systolic blood pressure 114 mm[Hg] Valentina Clutter PA-C Work Phone: [facility] 05-28-2024 08:50-0500 Body height 167 cm Pina Schuster Work Phone: [facility] 05-28-2024 08:50-0500 Body mass index (BMI) [Ratio] 31.23 kg/m2 Pina Schuster Work Phone: [facility] 05-28-2024 08:50-0500 Body temperature 97.11 [degF] Pina Schuster Work Phone: [facility] 05-28-2024 08:50-0500 Body weight 87.09 kg Pina Schuster Work Phone: [facility] 05-28-2024 08:50-0500 Diastolic blood pressure 78 mm[Hg] Pina Schuster Work Phone: [facility] 05-28-2024 08:50-0500 Heart rate 82 /min Pina Schuster Work Phone: [facility] 05-28-2024 08:50-0500 SaO2% (BldA) [Mass fraction] 98 % Pina Schuster Work Phone: [facility] 05-28-2024 08:50-0500 Systolic blood pressure 129 mm[Hg] Pina Schuster Work Phone: [facility] 05-21-2024 08:15-0500 Body mass index (BMI) [Ratio] 30.74 kg/m2 Cody Carrington MD Work Phone: [facility] 05-21-2024 08:15-0500 Body temperature 97.3 [degF] Cody Carrington MD Work Phone: [facility] 05-21-2024 08:15-0500 Body weight 86.4 kg Cody Carrington MD Work Phone: [facility] 05-21-2024 08:15-0500 Diastolic blood pressure 64 mm[Hg] Cody Carrington MD Work Phone: [facility] 05-21-2024 08:15-0500 Heart rate 49 /min Cody Carrington MD Work Phone: [facility] 05-21-2024 08:15-0500 Respiratory rate 14 /min Cody Carrington MD Work Phone: [facility] 05-21-2024 08:15-0500 SaO2% (BldA) [Mass fraction] 98 % Cody Carrington MD Work Phone: [facility] 05-21-2024 08:15-0500 Systolic blood pressure 116 mm[Hg] Cody Carrington MD Work Phone: [facility] 04-26-2024 13:34-0500 Body mass index (BMI) [Ratio] 30.78 kg/m2 Leela Drake HOSPITAL ADMINISTRATIVE ASSISTANT.[employer] Work Phone: [facility] 04-26-2024 13:34-0500 Body temperature 97.9 [degF] Leela Drake HOSPITAL ADMINISTRATIVE ASSISTANT.[employer] Work Phone: [facility] 04-26-2024 13:34-0500 Body weight 86.5 kg Leela Drake HOSPITAL ADMINISTRATIVE ASSISTANT.[employer] Work Phone: [facility] 04-26-2024 13:34-0500 Diastolic blood pressure 74 mm[Hg] Leela Drake HOSPITAL ADMINISTRATIVE ASSISTANT.[employer] Work Phone: [facility] 04-26-2024 13:34-0500 Heart rate 59 /min Leela Drake HOSPITAL ADMINISTRATIVE ASSISTANT.[employer] Work Phone: [facility] 04-26-2024 13:34-0500 Respiratory rate 16 /min Leela Christopher HOSPITAL ADMINISTRATIVE ASSISTANT.[employer] Work Phone: [facility] 04-26-2024 13:34-0500 SaO2% (BldA) [Mass fraction] 96 % Leela Christopher HOSPITAL ADMINISTRATIVE ASSISTANT.[employer] Work Phone: [facility] 04-26-2024 13:34-0500 Systolic blood pressure 126 mm[Hg] Leela Christopher HOSPITAL ADMINISTRATIVE ASSISTANT.[employer] Work Phone: [facility] 03-17-2024 15:21-0500 Body temperature 97.59 [degF] Rodolfo Aguilar MD Work Phone: [facility] 03-17-2024 15:21-0500 Diastolic blood pressure 57 mm[Hg] Rodolfo Aguilar MD Work Phone: [facility] 03-17-2024 15:21-0500 Heart rate 77 /min Rodolfo Aguilar MD Work Phone: [facility] 03-17-2024 15:21-0500 Respiratory rate 15 /min Rodolfo Aguilar MD Work Phone: [facility] 03-17-2024 15:21-0500 SaO2% (BldA) [Mass fraction] 96 % Rodolfo Aguilar MD Work Phone: [facility] 03-17-2024 15:21-0500 Systolic blood pressure 116 mm[Hg] Rodolfo Aguilar MD Work Phone: [facility] 03-09-2024 13:24-0500 Body temperature 98.01 [degF] Rodolfo Aguilar MD Work Phone: [facility] 03-09-2024 13:24-0500 Diastolic blood pressure 65 mm[Hg] Rodolfo Aguilar MD Work Phone: [facility] 03-09-2024 13:24-0500 Heart rate 50 /min Rodolfo Aguilar MD Work Phone: [facility] Comment on above: normal for pt 03-09-2024 13:24-0500 SaO2% (BldA) [Mass fraction] 97 % Rodolfo Aguilar MD Work Phone: [facility] 03-09-2024 13:24-0500 Systolic blood pressure 141 mm[Hg] Rodolfo Aguilar MD Work Phone: [facility] 03-01-2024 10:12-0400 Body mass index (BMI) [Ratio] 32.12 kg/m2 Rodolfo Aguilar MD Work Phone: [facility] 03-01-2024 10:12-0400 Body temperature 97.39 [degF] Rodolfo Aguilar MD Work Phone: [facility] 03-01-2024 10:12-0400 Body weight 90.27 kg Rodolfo Aguilar MD Work Phone: [facility] 03-01-2024 10:12-0400 Diastolic blood pressure 74 mm[Hg] Rodolfo Aguilar MD Work Phone: [facility] 03-01-2024 10:12-0400 Heart rate 52 /min Rodolfo Aguilar MD Work Phone: [facility] 03-01-2024 10:12-0400 Respiratory rate 15 /min Rodolfo Aguilar MD Work Phone: [facility] 03-01-2024 10:12-0400 SaO2% (BldA) [Mass fraction] 96 % Rodolfo Aguilar MD Work Phone: [facility] 03-01-2024 10:12-0400 Systolic blood pressure 137 mm[Hg] Rodolfo Aguilar MD Work Phone: [facility] 02-27-2024 08:22-0400 Body mass index (BMI) [Ratio] 32.69 kg/m2 Johan Payne MD Work Phone: [facility] 02-27-2024 08:22-0400 Body temperature 97 [degF] Johan Payne MD Work Phone: [facility] 02-27-2024 08:22-0400 Body weight 90.49 kg Johan Payne MD Work Phone: [facility] 02-27-2024 08:22-0400 Diastolic blood pressure 84 mm[Hg] Johan Payne MD Work Phone: [facility] 02-27-2024 08:22-0400 Heart rate 50 /min Johan Payne MD Work Phone: [facility] 02-27-2024 08:22-0400 SaO2% (BldA) [Mass fraction] 99 % Johan Payne MD Work Phone: [facility] 02-27-2024 08:22-0400 Systolic blood pressure 135 mm[Hg] Johan Payne MD Work Phone: [facility] 02-26-2024 10:18-0400 Diastolic blood pressure 75 mm[Hg] Cody Carrington MD Work Phone: [facility] 02-26-2024 10:18-0400 Heart rate 51 /min Cody Carrington MD Work Phone: [facility] 02-26-2024 10:18-0400 Systolic blood pressure 136 mm[Hg] Cody Carrington MD Work Phone: [facility] 02-26-2024 10:08-0400 Body mass index (BMI) [Ratio] 32.3 kg/m2 Cody Carrington MD Work Phone: [facility] 02-26-2024 10:08-0400 Body temperature 97.81 [degF] Cody Carrington MD Work Phone: [facility] 02-26-2024 10:08-0400 Body weight 89.4 kg Cody Carrington MD Work Phone: [facility] 02-13-2024 15:05-0400 Body mass index (BMI) [Ratio] 33.1 kg/m2 Johan Payne MD Work Phone: [facility] 02-13-2024 15:05-0400 Body temperature 97.3 [degF] Johan Payne MD Work Phone: [facility] 02-13-2024 15:05-0400 Body weight 91.63 kg Joahn Payne MD Work Phone: [facility] 02-13-2024 15:05-0400 Diastolic blood pressure 76 mm[Hg] Johan Payne MD Work Phone: [facility] 02-13-2024 15:05-0400 Heart rate 56 /min Johan Payne MD Work Phone: [facility] 02-13-2024 15:05-0400 SaO2% (BldA) [Mass fraction] 100 % Johan Payne MD Work Phone: [facility] 02-13-2024 15:05-0400 Systolic blood pressure 139 mm[Hg] Johan Payne MD Work Phone: [facility] 01-02-2024 12:55-0400 Body height 166.4 cm Johan Payne MD Work Phone: [facility] 01-02-2024 12:55-0400 Body mass index (BMI) [Ratio] 34.82 kg/m2 Johan Payne MD Work Phone: [facility] 01-02-2024 12:55-0400 Body temperature 97.39 [degF] Johan Payne MD Work Phone: [facility] 01-02-2024 12:55-0400 Body weight 96.39 kg Johan Payne MD Work Phone: [facility] 01-02-2024 12:55-0400 Diastolic blood pressure 69 mm[Hg] Johan Payne MD Work Phone: [facility] 01-02-2024 12:55-0400 Heart rate 44 /min Johan Payne MD Work Phone: [facility] 01-02-2024 12:55-0400 SaO2% (BldA) [Mass fraction] 97 % Johan Payne MD Work Phone: [facility] 01-02-2024 12:55-0400 Systolic blood pressure 159 mm[Hg] Johan Payne MD Work Phone: [facility] 12-31-2023 10:02-0400 Body height 170.2 cm Devin Cortes MD Work Phone: [facility] 12-31-2023 10:02-0400 Body mass index (BMI) [Ratio] 32.89 kg/m2 Devin Cortes MD Work Phone: [facility] 12-31-2023 10:02-0400 Body weight 95.25 kg Devin Cortes MD Work Phone: [facility] 12-18-2023 13:07-0400 Diastolic blood pressure 74 mm[Hg] Fernando Wen MD Work Phone: [facility] 12-18-2023 13:07-0400 Heart rate 49 /min Fernando Wen MD Work Phone: [facility] 12-18-2023 13:07-0400 Respiratory rate 16 /min Fernando Wen MD Work Phone: [facility] 12-18-2023 13:07-0400 SaO2% (BldA) [Mass fraction] 93 % Fernando Wen MD Work Phone: [facility] 12-18-2023 13:07-0400 Systolic blood pressure 165 mm[Hg] Fernando Wen MD Work Phone: [facility] 12-18-2023 11:26-0400 Body mass index (BMI) [Ratio] 31.66 kg/m2 Fernando Wen MD Work Phone: [facility] 12-18-2023 11:26-0400 Body temperature 97.39 [degF] Fernando Wen MD Work Phone: [facility] 12-18-2023 11:26-0400 Body weight 91.7 kg Fernando Wen MD Work Phone: [facility] 12-08-2023 13:19-0400 Body mass index (BMI) [Ratio] 31.67 kg/m2 Fernando Wen MD Work Phone: [facility] 12-08-2023 13:19-0400 Body temperature 97.39 [degF] Fernando Wen MD Work Phone: [facility] 12-08-2023 13:19-0400 Body weight 91.72 kg Fernando Wen MD Work Phone: [facility] 12-08-2023 13:19-0400 Diastolic blood pressure 66 mm[Hg] Fernando Wen MD Work Phone: [facility] 12-08-2023 13:19-0400 Heart rate 51 /min Fernando Wen MD Work Phone: [facility] 12-08-2023 13:19-0400 SaO2% (BldA) [Mass fraction] 96 % Fernando Wen MD Work Phone: [facility] 12-08-2023 13:19-0400 Systolic blood pressure 138 mm[Hg] Fernando Wen MD Work Phone: [facility] 10-22-2023 11:00-0400 Body height 170.2 cm Chris Barrera MD Work Phone: [facility] 10-22-2023 11:00-0400 Body mass index (BMI) [Ratio] 32.89 kg/m2 Chris Barrera MD Work Phone: [facility] 10-22-2023 11:00-0400 Body weight 95.25 kg Chris Barrera MD Work Phone: [facility] 10-22-2023 11:00-0400 Diastolic blood pressure 98 mm[Hg] Chris Barrera MD Work Phone: [facility] 10-22-2023 11:00-0400 Heart rate 47 /min Chris Barrera MD Work Phone: [facility] 10-22-2023 11:00-0400 SaO2% (BldA) [Mass fraction] 95 % Chris Barrera MD Work Phone: [facility] 10-22-2023 11:00-0400 Systolic blood pressure 152 mm[Hg] Chris Barrera MD Work Phone: [facility] 07-24-2023 15:56-0400 Diastolic blood pressure 68 mm[Hg] Cody Carrington MD Work Phone: [facility] 07-24-2023 15:56-0400 Systolic blood pressure 136 mm[Hg] Cody Carrington MD Work Phone: [facility] 07-24-2023 15:34-0400 Body temperature 97.39 [degF] Cody Carrington MD Work Phone: [facility] 07-24-2023 15:34-0400 Body weight 96.62 kg Cody Carrington MD Work Phone: [facility] 07-24-2023 15:34-0400 Heart rate 52 /min Cody Carrington MD Work Phone: [facility] 07-24-2023 15:34-0400 Respiratory rate 12 /min Cody Carrington MD Work Phone: [facility] 06-23-2023 14:56-0500 Body temperature 97.9 [degF] Cody Carrington MD Work Phone: [facility] 06-23-2023 14:56-0500 Body weight 94.35 kg Cody Carrington MD Work Phone: [facility] 06-23-2023 14:56-0500 Diastolic blood pressure 56 mm[Hg] Cody Carringotn MD Work Phone: [facility] 06-23-2023 14:56-0500 Heart rate 52 /min Cody Carrington MD Work Phone: [facility] 06-23-2023 14:56-0500 Respiratory rate 12 /min Cody Carrington MD Work Phone: [facility] 06-23-2023 14:56-0500 Systolic blood pressure 120 mm[Hg] Cody Carrington MD Work Phone: [facility] 06-17-2023 15:23-0500 Body temperature 97.5 [degF] Dr. Cody Carrington Work Phone: 4(543)862-425840 [place] [address] 06-17-2023 15:23-0500 Diastolic blood pressure 60 mm[Hg] Dr. Cody Carrington Work Phone: 0(583)668-963240 [place] [address] 06-17-2023 15:23-0500 Heart rate 56 /min Dr. Cody Carrington Work Phone: 8(858)564-639440 [place] [address] 06-17-2023 15:23-0500 Respiratory rate 16 /min Dr. Cody Carrington Work Phone: 0(143)398-476540 [place] [address] 06-17-2023 15:23-0500 SaO2% (BldA) [Mass fraction] 96 % Dr. Cody Carrington Work Phone: 4(780)007-195240 [place] [address] 06-17-2023 15:23-0500 Systolic blood pressure 121 mm[Hg] Dr. Cody Carrington Work Phone: 6(721)580-797240 [place] [address] 06-17-2023 11:46-0500 Body height 170.[address] Cody Carrington Work Phone: 9(345)358-963940 [place] [address] 06-17-2023 11:46-0500 Body weight 93.[address] Cody Carrington Work Phone: 6(927)702-111640 [place] [address] 06-16-2023 19:57-0500 Body mass index (BMI) [Ratio] 32.4 kg/m2 Dr. Cody Carrington Work Phone: 9(859)849-382240 [place] [address] 06-16-2023 18:58-0500 Diastolic blood pressure 73 mm[Hg] Dr. Cody Carrington Work Phone: 4(388)339-934140 [place] [address] 06-16-2023 18:58-0500 Heart rate 109 /min Dr. Cody Carrington Work Phone: 2(101)153-638740 [place] [address] 06-16-2023 18:58-0500 Respiratory rate 14 /min Dr. Cody Carrington Work Phone: 6(536)007-737940 [place] [address] 06-16-2023 18:58-0500 SaO2% (BldA) [Mass fraction] 97 % Dr. Cody Carrington Work Phone: [facility] 06-16-2023 18:58-0500 Systolic blood pressure 94 mm[Hg] Dr. Cody Carrington Work Phone: [facility] 06-16-2023 15:39-0500 Body height 170.[address] Cody Carrington Work Phone: [facility] 06-16-2023 15:39-0500 Body mass index (BMI) [Ratio] 33 kg/m2 Dr. Cody Carrington Work Phone: [facility] 06-16-2023 15:39-0500 Body temperature 96.5 [degF] Dr. Cody Carrington Work Phone: [facility] 06-16-2023 15:39-0500 Body weight 95.[address] Cody Carrington Work Phone: [facility] 06-16-2023 14:30-0500 Diastolic blood pressure 74 mm[Hg] Cody Carrington MD Work Phone: [facility] 06-16-2023 14:30-0500 Heart rate 77 /min Cody Carrington MD Work Phone: [facility] 06-16-2023 14:30-0500 Systolic blood pressure 124 mm[Hg] Cody Carrington MD Work Phone: [facility] 06-16-2023 14:26-0500 Body temperature 97.3 [degF] Cody Carrington MD Work Phone: [facility] 06-16-2023 14:26-0500 Body weight 95.25 kg Cody Carrington MD Work Phone: [facility] 02-04-2023 08:06-0400 Body height 170.2 cm Robert Toscano PA-C Work Phone: [facility] 02-04-2023 08:06-0400 Body temperature 98.01 [degF] Robert Toscano PA-C Work Phone: [facility] 02-04-2023 08:06-0400 Body weight 98.7 kg Robert Toscano PA-C Work Phone: [facility] 02-04-2023 08:06-0400 Diastolic blood pressure 70 mm[Hg] Robert Toscano PA-C Work Phone: [facility] 02-04-2023 08:06-0400 Heart rate 52 /min Robert Toscano PA-C Work Phone: [facility] 02-04-2023 08:06-0400 SaO2% (BldA) [Mass fraction] 94 % Robert Toscano PA-C Work Phone: [facility] 02-04-2023 08:06-0400 Systolic blood pressure 120 mm[Hg] Robert Toscano PA-C Work Phone: [facility] 08-16-2022 09:14-0400 Diastolic blood pressure 71 mm[Hg] Leela Older HOSPITAL ADMINISTRATIVE ASSISTANT.[employer] Work Phone: [facility] 08-16-2022 09:14-0400 Heart rate 47 /min Leela Older HOSPITAL ADMINISTRATIVE ASSISTANT.[employer] Work Phone: [facility] 08-16-2022 09:14-0400 Systolic blood pressure 144 mm[Hg] Leela Older HOSPITAL ADMINISTRATIVE ASSISTANT.[employer] Work Phone: [facility] 08-16-2022 09:04-0400 Body weight 97.52 kg Leela Older HOSPITAL ADMINISTRATIVE ASSISTANT.[employer] Work Phone: [facility] 08-16-2022 09:04-0400 Respiratory rate 12 /min Leela Older HOSPITAL ADMINISTRATIVE ASSISTANT.[employer] Work Phone: [facility] 07-04-2022 08:51-0500 Diastolic blood pressure 94 mm[Hg] Cody Carrington MD Work Phone: [facility] 07-04-2022 08:51-0500 Heart rate 50 /min Cody Carrington MD Work Phone: [facility] 07-04-2022 08:51-0500 Systolic blood pressure 207 mm[Hg] Cody Carrington MD Work Phone: [facility] 07-04-2022 08:41-0500 Body weight 96.16 kg Cody Carrington MD Work Phone: [facility] 12-27-2021 08:59-0400 Diastolic blood pressure 71 mm[Hg] Cody Carrington MD Work Phone: [facility] 12-27-2021 08:59-0400 Heart rate 52 /min Cody Carrington MD Work Phone: [facility] 12-27-2021 08:59-0400 Systolic blood pressure 119 mm[Hg] Cody Carrington MD Work Phone: [facility] 12-27-2021 08:46-0400 Body temperature 96.8 [degF] Cody Carrington MD Work Phone: [facility] 12-27-2021 08:46-0400 Body weight 99.7 kg Cody Carrington MD Work Phone: [facility] 12-27-2021 08:46-0400 Respiratory rate 12 /min Cody Carrington MD Work Phone: [facility] Encounters Encounter Date Encounter Type Care Provider Facility Start: 02-25-2025 End: 02-25-2025 ambulatory RADHA LARSEN Facility:[id number] Start: 02-23-2025 End: 02-23-2025 ambulatory CODY CARRINGTON Facility:[facility] Start: 02-22-2025 End: 02-22-2025 ambulatory PINA SCHUSTER Facility:[facility] Start: 02-11-2025 End: 02-11-2025 ambulatory CODY CARRINGTON Facility:[facility] Start: 01-04-2025 End: 01-04-2025 ambulatory CODY CARRINGTON Facility:[facility] Start: 01-04-2025 End: 01-04-2025 Patient encounter procedure Cody Carrington MD Work Phone: Internal Medicine [place] Comment on above: Medicare annual well ness visit, subsequent (Primary Dx); Gastroesophageal reflux disease, unspecified whether esophagitis present; Herpes infection; 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 Sruthi Larkin MD -[place] [employer] [facility] Work Phone: Start: 11-22-2024 End: 11-22-[address] Cody Carrington MD Work Phone: [facility] [employer] [facility] Start: 11-14-2024 End: 11-18-2024 Follow-up encounter Cody Carrington MD Work Phone: Internal Medicine [place] Start: 11-12-2024 End: 11-12-2024 Patient encounter procedure Johan Payne MD Work Phone: Hematology/Oncology Start: 11-12-2024 End: 11-12-2024 ambulatory Johan Payne MD Work Phone: Hematology/Oncology Comment on above: Prostate cancer (HCC ) (Primary Dx) Start: 11-08-2024 End: 11-09-2024 Refill Cody Carrington MD Work Phone: Internal Medicine [place] Comment on above: Refill Request Start: 10-27-2024 End: 10-27-2024 Office outpatient visit 25 minutes Cody Carrington MD Work Phone: Internal Medicine [place] Comment on above: Postnasal drip (Prim shahla Dx); Screening for depression; Encounter for screening examination for other mental health and behavioral disorders; Muscle spasm of back; Hyperlipidemia, unspecified hyperlipidemia type; Herpes infection; Acquired hypothyroidism; Primary hypertension; Urinary frequency; Impaired fasting glucose; Anemia, unspecified type Start: 10-27-2024 End: 10-27-2024 ambulatory CODY CARRINGTON Facility:[facility] Start: 09-07-2024 End: 09-08-2024 Refill Cody Carrington MD Work Phone: [address] [place] [address] Comment on above: Refill Request Start: 09-02-2024 End: 09-03-2024 Telephone encounter Bouchra Fortune RN Work Phone: Hematology/Oncology Comment on above: Care Coordination Start: 08-26-2024 End: 08-26-2024 ambulatory RADHA LARSEN Facility:[id number] Start: 08-25-2024 End: 08-25-2024 Telephone encounter Bouchra Fortune RN Work Phone: Hematology/Oncology Comment on above: Care Coordination (O RAL ANTI-CANCER AGENTS EDUCATION-Xtandi) Start: 08-20-2024 End: 08-20-2024 ambulatory Injection Nirmal [facility] Work Phone: Hematology/Oncology Comment on above: Prostate cancer (HCC ) (Primary Dx) Start: 08-18-2024 End: 08-18-2024 Refill Cody Carrington MD Work Phone: Internal Medicine [place] Comment on above: Refill Request Start: 07-27-2024 End: 07-27-2024 Refill Johan Payne MD Work Phone: Hematology/Oncology Comment on above: Refill Request Start: 07-26-2024 End: 07-26-2024 Refill Johan Payne MD Work Phone: Hematology/Oncology Comment on above: Refill Request Start: 07-22-2024 End: 07-22-2024 ambulatory CODY CARRINGTON Facility:[facility] Start: 07-22-2024 End: 07-22-2024 [facility] Work Phone: Radiology Comment on above: Bilateral hydronephr osis [N13.30] Start: 07-15-2024 End: 07-15-2024 Patient encounter procedure Radha Larsen MD Work Phone: Urology Comment on above: Prostate cancer (HCC ) (Primary Dx); Urinary frequency; Bilateral hydronephrosis Start: 07-15-2024 End: 07-15-2024 ambulatory RADHA LARSEN Facility:[id number] Start: 07-12-2024 End: 07-13-2024 Refill Cody Carrington [...] Start: 07-05-2024 End: 07-05-2024 ambulatory CODY CARRINGTON Facility:[facility] Start: 07-01-2024 End: 07-01-2024 Follow-up encounter Cody Carrington MD Work Phone: Internal Medicine [place] Start: 06-29-2024 End: 06-29-2024 ambulatory CODY CARRINGTON Facility:[facility] Start: 06-28-2024 End: 06-28-2024 Telephone encounter Cody Carrington MD Work Phone: Internal Medicine [place] Comment on above: Patient Request Start: 06-23-2024 End: 06-23-2024 Telephone encounter Johan Payne MD Work Phone: Hematology/Oncology Comment on above: Appointment Start: 06-21-2024 ambulatory RADHA LARSEN Faci lity:[id number] Start: 06-21-2024 End: 06-21-2024 Subsequent [facility] Work Phone: Radiology CT Scan Comment on above: Bilateral hydronephr osis [N13.30] Start: 06-16-2024 End: 06-16-2024 ambulatory CODY CARRINGTON Facility:[facility] Start: 06-16-2024 End: 06-16-2024 Office outpatient visit 25 minutes Valentina Berry PA-C Work Phone: [place] [facility] Comment on above: Acute URI (Primary D x) Start: 06-11-2024 End: 06-14-2024 ambulatory Cody Carrington MD Work Phone: Internal Medicine [place] Comment on above: Urinary Tract Infect ion Start: 05-28-2024 End: 05-28-2024 Telephone encounter Jacob Jenkins APRN.[employer] Work Phone: Urology Start: 05-28-2024 End: 05-28-2024 Patient encounter procedure Pina Schuster Work Phone: Hematology/Oncology Start: 05-28-2024 End: 05-28-2024 ambulatory Injection Nirmal [facility] Work Phone: Hematology/Oncology Comment on above: Prostate cancer (HCC ) (Primary Dx) 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) Start: 05-27-2024 End: 05-27-2024 Telephone encounter Jacob Jenkins APRN.[employer] Work Phone: Urology Comment on above: Appointment [...] present Start: 05-21-2024 End: 05-21-2024 ambulatory CODY lBanc ZEB Facility:[facility] Start: 05-06-2024 End: 05-07-2024 Telephone encounter Radha Larsen MD Work Phone: Urology Comment on above: Patient Update Start: 04-29-2024 End: 05-03-2024 Telephone encounter Cody Carrington MD Work Phone: Internal Medicine [place] Comment on above: Patient Question Start: 04-29-2024 End: 04-29-2024 ambulatory Jarek Perez NP Facility:[facility] Start: 04-26-2024 End: 04-26-2024 Patient encounter procedure Leela Drake HOSPITAL ADMINISTRATIVE ASSISTANT.[employer] Work Phone: Internal Medicine [place] Comment on above: Complicated UTI (uri nary tract infection) (Primary Dx); Muscle spasm of back Start: 04-26-2024 End: 04-26-2024 ambulatory ELENI ZEB Facility:[facility] Start: 04-22-2024 End: 04-23-2024 Telephone encounter Cody Carrington MD Work Phone: Internal Medicine [place] Comment on above: future apt/patient u pdate Start: 04-20-2024 End: 04-21-2024 Telephone encounter Johan Payne MD Work Phone: Hematology/Oncology Comment on above: Patient Update Start: 04-20-2024 End: 04-20-2024 ambulatory CODY CARRINGTON Facility:[facility] Start: 04-20-2024 End: 04-20-2024 Follow-up encounter Rodolfo Aguilar MD Work Phone: Radiation Oncology Comment on above: Radiotherapy follow- up (Primary Dx); 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) Start: 04-20-2024 End: 04-20-2024 Telemedicine consultation with patient Rodolfo Aguilar MD Work Phone: Radiation Oncology Start: 04-16-2024 ambulatory Nora Ward Facility :[facility] Start: 04-16-2024 End: 04-18-2024 Evaluation and management of inpatient Nora Ward Facility:[facility] Start: 04-15-2024 End: 04-15-2024 Emergency department patient visit Fernando Hollins Facility:[facility] Start: 04-14-2024 End: 04-14-2024 Patient encounter procedure Radha Larsen MD Work Phone: Urology Comment on above: Prostate cancer (HCC ) (Primary Dx); Bilateral hydronephrosis; Acute urinary retention; Other hydronephrosis Start: 04-14-2024 End: 04-14-2024 Telephone encounter Cody Carrington MD Work Phone: Family [facility] Comment on above: Patient Question Start: 04-14-2024 End: 04-14-2024 ambulatory RADHA LARSEN Facility:[id number] Start: 04-14-2024 End: 04-14-2024 ambulatory CODY CARRINGTON Facility:[facility] Start: 04-13-2024 End: 04-13-2024 ambulatory RADHA LARSEN Facility:[id number] Start: 04-05-2024 End: 04-06-2024 Telephone encounter Cody Carrington MD Work Phone: Internal Medicine [place] Comment on above: Orders (lab orders) Start: 03-26-2024 End: 03-26-2024 Patient encounter procedure Radha Larsen MD Work Phone: Urology Comment on above: Prostate cancer (HCC ) (Primary Dx); Bilateral hydronephrosis; Acute urinary retention Start: 03-26-2024 End: 03-26-2024 ambulatory RADHA LARSEN Facility:[id number] Start: 03-23-2024 End: 03-23-2024 ambulatory Rodolfo Aguilar [...] Start: 03-19-2024 End: 03-19-2024 ambulatory ELENI CARRINGTON Facility:[facility] Start: 03-18-2024 End: 03-18-2024 ambulatory ELENI CARRINGTON Facility:[facility] Start: 03-17-2024 End: 03-17-2024 Patient encounter procedure Rodolfo Aguilar MD Work Phone: Radiation Oncology Comment on above: Metastasis to retrop eritoneal lymph node (HCC) (Primary Dx) Start: 03-17-2024 End: 03-17-2024 ambulatory ELENI CARRINGTON Facility:[facility] Start: 03-15-2024 End: 03-15-2024 Telephone encounter Jacob Jenkins APRN.CNP Work Phone: Urology Comment on above: Orders Start: 03-15-2024 End: 03-15-2024 Patient encounter procedure Nurse Jay Jay Walker Work Phone: Urology Comment on above: Bilateral hydronephr osis (Primary Dx) Start: 03-15-2024 End: 03-15-2024 ambulatory ELENI CARRINGTON Facility:[facility] Start: 03-12-2024 End: 03-12-2024 ambulatory ELENI CARRINGTON Facility:[facility] Start: 03-11-2024 End: 03-11-2024 ambulatory ELENI CARRINGTON Facility:[facility] Start: 03-10-2024 End: 03-10-2024 ambulatory ELENI CARRINGTON Facility:[facility] Start: 03-10-2024 End: 03-10-2024 Telephone encounter Radha Larsen MD Work Phone: Urology Comment on above: Appointment Start: 03-09-2024 End: 03-09-2024 Patient encounter procedure Rodolfo Aguilar MD Work Phone: Radiation Oncology Comment on above: Metastasis to retrop eritoneal lymph node (HCC) (Primary Dx) Start: 03-09-2024 End: 03-09-2024 ambulatory CODY CARRINGTON Facility:[facility] Start: 03-08-2024 Patient encounter status Cullen Larsen MD Work Phone: [facility] Start: 03-08-2024 End: 03-08-2024 Telephone encounter Radha Larsen MD Work Phone: [facility] Comment on above: Orders; Follow Up Start: 03-08-2024 End: 03-08-2024 ambulatory RADHA LARSEN Facility:[id number] Start: 03-05-2024 End: 04-23-2024 Patient encounter status Cody Carrington MD Work Phone: [facility] Start: 03-02-2024 End: 03-04-2024 Patient encounter procedure Rodolfo Aguilar MD Work Phone: Radiation Oncology Start: 03-02-2024 End: 03-04-2024 Radiation Oncology Note Rodolfo Aguilar MD Work Phone: Radiation Oncology Comment on above: Treatment Planning Simulation Note Start: 03-02-2024 End: 03-02-2024 Nursing evaluation of patient and report Nurse Keyur [facility] Work Phone: Radiation Oncology Comment on above: Prostate cancer (HCC ) (Primary Dx); 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) Start: 03-02-2024 End: 03-02-2024 ambulatory CODY CARRINGTON Facility:[facility] Start: 03-01-2024 End: 03-01-2024 Telephone encounter Radha Larsen MD Work Phone: [facility] Comment on above: Orders Afternoon Nanny - E D Follow Up Start: 03-01-2024 End: 03-01-2024 Patient encounter procedure Rodolfo Aguilar MD Work Phone: Radiation Oncology Comment on above: Metastasis to retrop eritoneal lymph node (HCC) (Primary Dx); Prostate cancer (HCC) Start: 03-01-2024 End: 03-01-2024 Telemedicine consultation with patient Devin Cortes MD Work Phone: Urology Start: 03-01-2024 End: 03-01-2024 ambulatory Devin Cotres MD Work Phone: Urology Comment on above: Bilateral hydronephr osis (Primary Dx); Retroperitoneal lymphadenopathy; Hydronephrosis with ureteral stricture, not elsewhere classified; HERMES (acute kidney injury) (HCC) Start: 02-28-2024 End: 02-28-2024 Emergency department patient visit CODY CARRINGTON Facility:[id number] Start: 02-27-2024 End: 02-27-2024 ambulatory Injection Nirmal [facility] Work Phone: Hematology/Oncology Comment on above: Prostate cancer (HCC ) (Primary Dx) Start: 02-27-2024 End: 02-27-2024 Subsequent hospital visit by physician [facility] [address] Scan Comment on above: [...] Cody Carrington MD Work Phone: Internal Medicine [place] Comment on above: Refill Request Start: 01-12-2024 [...] 12-04-2023 Subsequent hospital visit by physician [facility] Kemal (I-Stat) Work Phone: Radiology [facility] Comment on above: Constipation, unspec ified constipation [...] encounter status Cody Carrington MD Work Phone: [facility] Work Phone: Start: 10-22-2023 End: 10-22-2023 Patient encounter procedure Chris Barrera MD Work Phone: [facility] Cardiology [facility] Comment on above: Paroxysmal atrial fi brillation (HCC) (Primary Dx); At risk for stroke; Anticoagulant long-term use Start: 10-22-2023 End: 10-22-2023 ambulatory SRUTHI URBINA ROLAND Facility:[facility] Start: 10-09-2023 Refill Robert Toscano PA-C Work Phone: Urology Comment on above: Refill Request Start: 09-24-2023 Telephone encounter Dixie patton MD Work Phone: [facility] Cardiology [facility] Comment on above: Appointment Start: 07-24-2023 End: [...] hypothyroidism Start: 06-17-2023 Non-patient / Non-visit Dr. yLssa Carrington Work Phone: [facility] Start: 06-16-2023 Non-patient / Non-visit Dr. Lyssa Carrington Work Phone: [facility] Work Phone: Start: 06-16-2023 End: 06-17-2023 Evaluation and management of inpatient Dr. Cody Carrington Work Phone: [facility]-Progressive Care Unit Work Phone: Start: 06-16-2023 End: 06-17-[address] Cody Carrington Work Phone: [facility] Work Phone: Start: 06-16-2023 End: 06-16-2023 Patient encounter procedure Cody Carrington MD Work Phone: Internal Medicine [place] Comment on above: Orthostatic hypotens ion (Primary Dx); New onset atrial fibrillation (HCC) Start: 06-16-2023 ambulatory Cody ty MD Work Phone: Internal Medicine [place] Comment on above: Dizziness Start: 05-08-2023 End: 05-08-2023 Subsequent hospital visit by physician Daphney [facility] [place] Work Phone: Radiology Comment on above: Acute cough [R05.1] Start: 02-10-2023 Telephone encounter Robert martel PA-C Work Phone: Urology Comment on above: Results Start: 02-05-2023 Telephone encounter Cody melendez MD Work Phone: Internal Medicine [place] Comment on above: Refill Request Start: 02-04-2023 End: 02-04-2023 Patient encounter procedure Robert Toscano PA-C Work Phone: Urology Comment on above: Elevated prostate sp ecific antigen (PSA) (Primary Dx); Urinary frequency; Lower urinary tract symptoms (LUTS); BPH with elevated PSA Start: 01-09-2023 Telephone encounter Cody melendez MD Work Phone: Internal Medicine [place] Comment on above: Results Start: 01-03-2023 End: 01-03-2023 Patient encounter procedure Cody Carrington MD Work Phone: Internal Medicine [place] Comment on above: Urinary frequency (P rimary Dx); Herpes infection; Acquired hypothyroidism; Primary hypertension; Lower urinary tract symptoms (LUTS); Hyperlipidemia, unspecified hyperlipidemia type; Positive colorectal cancer screening using Cologuard test Start: 09-27-2022 Refill Cody ty MD Work Phone: Internal Medicine [place] Comment on above: Refill Request Start: 09-02-2022 Refill Cody ty MD Work Phone: Internal Medicine [place] Comment on above: Refill Request Start: 08-16-2022 End: 08-16-2022 Patient encounter procedure Leela Quinones APRNKellySTONE [employer]GER Work Phone: Internal Medicine [place] Comment on above: Hypertension, unspec ified type (Primary Dx) Start: 07-04-2022 End: 07-04-2022 Patient encounter procedure Cody Carrington MD Work Phone: Internal Medicine [place] Comment on above: Hypertension, unspec ified type [...] Telephone encounter Cody melendez MD Work Phone: [facility] [place] Comment on above: Orders Start: 09-18-2021 Refill Cody ty MD Work Phone: [address] [place] [address] Comment on above: Refill Request Start: 08-02-2021 Telephone encounter Cody melendez MD Work Phone: Internal Medicine [place] Comment on above: Orders Procedures Date Procedure [...] Screening for malign ant neoplasm of colon [facility] Start: 12-03-2028 Screening for malign ant neoplasm of colon CT Colonography [facility] Start: 11-13-2027 Diabetes Screening Diabetes Screenin [facility] Start: 06-29-2027 Diabetes Screening Diabetes Screenin [facility] Start: 04-26-2027 Diabetes Screening Diabetes Screenin [facility] Start: 04-13-2027 Diabetes Screening Diabetes Screenin g [facility] Start: 02-27-2027 Diabetes Screening Diabetes Screenin g [facility] Start: 02-25-2027 Diabetes Screening Diabetes Screenin g [facility] Start: 10-21-2026 Diabetes Screening Diabetes Screenin g [facility] Start: 07-17-2026 Diabetes Screening Diabetes Screenin g [facility] Start: 01-04-2026 Medicare Annual Well ness Visit Medicare Annual Wellness Visit [facility] Start: 01-03-2026 DIABETES SCREEN DIABETES SCREEN [facility] Start: 01-03-2026 Diabetes Screening Diabetes Screenin g [facility] Start: 10-27-2025 Anxiety Screening Anxiety Screening [facility] Start: 10-27-2025 Depression Screening Depression Scre ening [facility] Start: 08-11-2025 COLOGUARD (FIT-DNA) COLOGUARD (FIT-D NA) [facility] Start: 08-11-2025 Screening for malign ant neoplasm of colon Cologuard (FIT-DNA) [facility] Start: 07-06-2025 DIABETES SCREEN DIABETES SCREEN [facility] Start: 07-05-2025 End: 07-05-2025 Patient encounter procedure 07/05/2025 11:40 AM EST Office Visit Internal Medicine [place] [address] [place], [place] [address] Cody Carrington MD [address] [place] [address] 6 month follow up Internal Medicine [place] Comment on above: 6 month follow up Start: 02-25-2025 End: 02-25-2025 Patient encounter procedure 02/25/2025 8:30 AM EDT Office Visit Urology [email or web address] [place], [place] [id number] Radha Larsen MD [address] [place] [address] 6 month follow up PSA prior Urology Comment on above: 6 month follow up PS A prior Start: 02-11-2025 End: 02-11-2025 ambulatory 02/11/2025 2:45 PM EDT Infusion Center Hematology/Oncology [address] [place] [address] Wstr, Injection Nirmal [facility] [address] [place] [address] Q3MO LUPRON* Hematology/Oncology Comment on above: Q3MO LUPRON* Start: 02-11-2025 End: 02-11-2025 ambulatory [facility] Comment on above: CMP/PSA* OV/EARLY LABS/LUPRON TODAY* Start: 02-04-2025 End: 05-06-2025 Thyrotropin [Units/volume] in Serum or Plasma THYROID STIMULATING HORMONE Lab Routine Hypothyroidism, unspecified type Expected: 02/04/2025, Expires: 05/06/2025 [facility] Work Phone: Comment on above: Expected: 02/04/2025 , Expires: 05/06/2025 Start: 02-04-2025 End: 02-04-2025 ambulatory [facility] Comment on above: CMP/PSA* OV/EARLY LABS/LUPRON TODAY* Q3MO LUPRON* Start: 01-04-2025 End: 01-04-2025 Patient encounter procedure 01/04/2025 9:20 AM EDT Office Visit Internal Medicine [place] [address] [facility] [place], [place] [id number] Cody Carrington MD [address] [facility] [place] [id number] Annual Medicare Wellness w/2 month follow-up Internal Medicine [place] Comment on above: Annual Medicare Well ness w/2 month follow-up Start: 01-03-2025 Influenza vaccination Influenza Vacc ine (#1) [facility] Start: 12-17-2024 Screening for malign ant neoplasm of colon Colonoscopy [facility] Start: 11-22-2024 Evaluation of diagno stic study results [facility] Start: 11-12-2024 End: 02-11-2025 CBC panel - Blood by Automated count COMPLETE BLOOD COUNT Lab Routine Anemia, unspecified type Expected: 11/12/2024, Expires: 02/11/2025 [facility] Comment on above: Expected: 11/12/2024 , Expires: 02/11/2025 Start: 11-12-2024 End: 02-11-2025 Comprehensive metabolic 2000 panel - Serum or Plasma COMPREHENSIVE METABOLIC PANEL Lab STAT Prostate cancer (HCC) Expected: 11/12/2024, Expires: 02/11/2025 [facility] Work Phone: Comment on above: Expected: 11/12/2024 , Expires: 02/11/2025 Start: 11-12-2024 End: 02-11-2025 Hemoglobin A1c in Blood HEMOGLOBIN A1C Lab Routine Impaired fasting glucose Expected: 11/12/2024, Expires: 02/11/2025 [facility] Comment on above: Expected: 11/12/2024 , Expires: 02/11/2025 Start: 11-12-2024 End: 02-11-2025 Lipid 1996 panel - Serum or Plasma LIPID PANEL, FASTING Lab Routine Hyperlipidemia, unspecified hyperlipidemia type Expected: 11/12/2024, Expires: 02/11/2025 [facility] Comment on above: Expected: 11/12/2024 , Expires: 02/11/2025 Start: 11-12-2024 End: 02-11-2025 Thyrotropin [Units/volume] in Serum or Plasma THYROID STIMULATING HORMONE Lab Routine Acquired hypothyroidism Expected: 11/12/2024, Expires: 02/11/2025 [facility] Work Phone: Comment on above: Expected: 11/12/2024 , Expires: 02/11/2025 Start: 11-12-2024 End: 11-12-2024 ambulatory Hematology/Oncology Comment on above: Q3MO LUPRON* CMP/PSA* OV/EARLY LABS/LUPRON TODAY* Start: 10-27-2024 End: 10-27-2024 Patient encounter procedure Internal Medicine [place] Comment on above: 6 month follow-up Start: 10-23-2024 Anxiety Screening Anxiety Screening [facility] Start: 10-23-2024 Depression Screening Depression Scre [facility] Start: 08-26-2024 End: 08-26-2024 Patient encounter procedure Urology Comment on above: 6 WEEK FOLLOW UP 6 WEEK FOLLOW UP; urine, pvr Start: 08-20-2024 End: 08-20-2024 ambulatory 08/20/2024 9:15 AM EDT Infusion Center Hematology/Oncology [address] [place] [address] Wstr, Injection Nirmal [facility] [address] [place] [address] Q3MO LUPRON* Hematology/Oncology Comment on above: Q3MO LUPRON* Start: 08-15-2024 End: 11-14-2024 Basic metabolic 2000 panel - Serum or Plasma BASIC METABOLIC PANEL Lab Routine Bilateral hydronephrosis Expected: 08/15/2024, Expires: 11/14/2024 [facility] Comment on above: Expected: 08/15/2024 , Expires: 11/14/2024 Start: 07-22-2024 End: 07-22-2024 Patient encounter procedure 07/22/2024 8:30 AM EDT Appointment Radiology [address] [place] [address] US KIDNEY/BLADDER Radiology Comment on above: US KIDNEY/BLADDER Start: 07-15-2024 End: 07-15-2024 Patient encounter procedure Urology Comment on above: 3 months PSA, BMP, r esults CT urogram 3 months PSA, BMP, r esults CT urogram; urine, pvr Start: 07-13-2024 End: 10-12-2024 Prostate specific Ag [Mass/volume] in Serum or Plasma PROSTATE-SPECIFIC ANTIGEN DIAGNOSTIC Lab Routine Prostate cancer (HCC) Expected: 07/13/2024, Expires: 10/12/2024 [facility] Comment on above: Expected: 07/13/2024 , Expires: 10/12/2024 Start: 07-09-2024 End: 07-09-2024 ambulatory 07/09/2024 8:30 AM EST Visit (SP) Office Hematology/Oncology [address] [place] [address] [place] [address] [place] [address] 6WK OV* Hematology/Oncology Comment on above: 6WK OV* Start: 07-05-2024 End: 07-05-2024 ambulatory 07/05/2024 7:15 AM EST Results Only [place] [facility] Laboratory [address] [place] [address] PSA [facility] Comment on above: PSA Start: 06-30-2024 DIABETES SCREEN DIABETES SCREEN [facility] Start: 06-28-2024 End: 09-27-2024 Bacteria identified in Urine by Culture BACTERIAL CULTURE, URINE Microbiology Routine Complicated UTI (urinary tract infection) Expected: 06/28/2024, Expires: 09/27/2024 [facility] Comment on above: Expected: 06/28/2024 , Expires: 09/27/2024 Start: 06-28-2024 End: 09-27-2024 Urinalysis complete panel - Urine URINALYSIS, WITH MICROSCOPIC Lab Routine Complicated UTI (urinary tract infection) Expected: 06/28/2024, Expires: 09/27/2024 [facility] Work Phone: Comment on above: Expected: 06/28/2024 , Expires: 09/27/2024 Start: 06-23-2024 Annual PCP Team Jail Officer kali Disease Visit Annual PCP Team Chronic Disease Visit [facility] Start: 06-23-2024 BP Controlled (<130/80) BP Controlle d (<130/80) [facility] Start: 06-21-2024 End: 06-21-2024 Patient encounter procedure 06/21/2024 10:30 AM EST Appointment Radiology CT Scan [address] [facility] [place] [address] N13.30,CT UROGRAM W/WO/OFFICE CALLING/ORDER IN [facility] Radiology CT Scan Comment on above: N13.30,CT UROGRAM W/ WO/OFFICE CALLING/ORDER IN [facility] Start: 06-16-2024 Annual PCP Team Jail Officer kali Disease Visit Annual PCP Team Chronic Disease Visit [facility] Start: 06-16-2024 BP Controlled (<130/80) BP Controlle d (<130/80) [facility] Start: 06-10-2024 Urine microalbumin profile [facility] Comment on above: Postponed from 06/10 (Postponed [...] 05-05-2024 Advance Directive Discussion Advance Directive Discussion [facility] Start: 04-26-2024 End: 04-26-2024 Patient encounter procedure 04/26/2024 1:40 PM EST Office Visit Internal Medicine [place] [address] [place] [address] Leela Drake, HOSPITAL ADMINISTRATIVE ASSISTANT.STONE DERRICKMAN AND RIGGER [address] [place] [address] 6 month follow up, [facility] ER follow-up Internal Medicine [place] Comment on above: 6 month follow up, [facility] ER follow-up Start: 04-23-2024 End: 07-23-2024 Bacteria identified in Urine by Culture URINE CULTURE Microbiology Routine Urinary tract infection without hematuria, site unspecified Expected: 04/23/2024, Expires: 07/23/2024 [facility] Comment on above: Expected: 04/23/2024 , Expires: 07/23/2024 Start: 04-23-2024 End: 07-23-2024 Basic metabolic 2000 panel - Serum or Plasma BASIC METABOLIC PANEL Lab STAT Urinary tract infection without hematuria, site unspecified Expected: 04/23/2024, Expires: 07/23/2024 [facility] Comment on above: Expected: 04/23/2024 , Expires: 07/23/2024 Start: 04-23-2024 End: 07-23-2024 CBC panel - Blood by Automated count COMPLETE BLOOD COUNT Lab STAT Anemia, unspecified type Expected: 04/23/2024, Expires: 07/23/2024 [facility] Work Phone: Comment on above: Expected: 04/23/2024 , Expires: 07/23/2024 Start: 04-23-2024 End: 07-23-2024 Urinalysis complete panel - Urine URINALYSIS, WITH MICROSCOPIC Lab Routine Urinary tract infection without hematuria, site unspecified Expected: 04/23/2024, Expires: 07/23/2024 [facility] Comment on above: Expected: 04/23/2024 , Expires: 07/23/2024 Start: 04-23-2024 End: 04-23-2024 Patient encounter procedure 04/23/2024 11:00 AM EST Office Visit Internal Medicine [place] [address] [facility] [place] [address] Cody Carrington MD [address] [facility] [place] [address] 6 month follow up Internal Medicine [place] Comment on above: 6 month follow up Start: 04-21-2024 End: 07-21-2024 Basic metabolic 2000 panel - Serum or Plasma BASIC METABOLIC PANEL Lab Routine Bilateral hydronephrosis Expected: 04/21/2024, Expires: 07/21/2024 [facility] Comment on above: Expected: 04/21/2024 , Expires: 07/21/2024 Start: 04-21-2024 End: 04-21-2024 ambulatory [facility] Comment on above: PSA* 6WK OV/EARLY LABS* Start: 04-20-2024 End: 04-20-2024 Follow-up encounter 04/20/2024 1:00 PM EST [facility] [address] [place] [address] Rodolfo Aguilar MD [address] [place] [address] 1 MO OV FOLLOW UP Radiation Oncology Comment on above: 1 MO OV FOLLOW UP Start: 04-14-2024 End: 04-14-2024 Patient encounter procedure 04/14/2024 2:15 PM EST Office Visit Urology [address] [place], [place] [id number] Radha Larsen MD [address] [place] [address] 3 week follow up, lab results Urology Comment on above: 3 week follow up, la b results Start: 04-02-2024 End: 07-02-2024 Basic metabolic 2000 panel - Serum or Plasma BASIC METABOLIC PANEL Lab Routine Bilateral hydronephrosis Expected: 04/02/2024, Expires: 07/02/2024 [facility] Work Phone: Comment on above: Expected: 04/02/2024 , Expires: 07/02/2024 Start: 03-26-2024 End: 03-26-2024 Patient encounter procedure Urology Comment on above: Follow up with [facility] 3 weeks with KUB, psa, and bmp Follow up with [facility] 3 weeks with KUB, psa, and bmp-patient to pull catheter at 8am per DIRECTOR OF EMAIL MARKETING Piccari Follow up with [facility] 3 weeks with KUB, psa, and bmp-patient to pull catheter at 8am per DIRECTOR OF EMAIL MARKETING Piccari; urine, PVR Start: 03-26-2024 End: 06-25-2024 Prostate specific Ag [Mass/volume] in Serum or Plasma PROSTATE-SPECIFIC ANTIGEN DIAGNOSTIC Lab Routine Prostate cancer (HCC) Expected: 03/26/2024, Expires: 06/25/2024 [facility] Comment on above: Expected: 03/26/2024 , Expires: 06/25/2024 Start: 03-23-2024 End: 03-23-2024 Patient encounter procedure 03/23/2024 3:00 PM EST Appointment Radiation Oncology [address] [place] [address] Location: [facility] Comment on above: Location: [facility] Start: 03-22-2024 End: 03-22-2024 Patient encounter procedure 03/22/2024 3:00 PM EST Appointment Radiation Oncology [address] [place] [address] Location: [facility] Comment on above: Location: [facility] Start: 03-22-2024 End: 06-21-2024 Basic metabolic 2000 panel - Serum or Plasma BASIC METABOLIC PANEL Lab Routine Bilateral hydronephrosis Ureteral stent present Expected: 03/22/2024 (Approximate), Expires: 06/21/2024 [facility] Comment on above: Expected: 03/22/2024 (Approximate), Expires: 06/21/2024 Start: 03-22-2024 End: 06-21-2024 Prostate specific Ag [Mass/volume] in Serum or Plasma PROSTATE-SPECIFIC ANTIGEN DIAGNOSTIC Lab Routine Prostate cancer (HCC) Expected: 03/22/2024 (Approximate), Expires: 06/21/2024 [facility] Work Phone: Comment on above: Expected: 03/22/2024 (Approximate), Expires: 06/21/2024 Start: 03-22-2024 End: 04-07-2025 XR Abdomen Supine and Upright XR ABDOMEN 1V SUPINE Radiology Routine Bilateral hydronephrosis Ureteral stent present Expected: 03/22/2024 (Approximate), Expires: 04/07/2025 [facility] Comment on above: Expected: 03/22/2024 (Approximate), Expires: 04/07/2025 Start: 03-19-2024 End: 03-19-2024 Patient encounter procedure 03/19/2024 3:00 PM EST Appointment Radiation Oncology [address] [place], [place] [id number] Location: [facility] Comment on above: Location: [facility] Start: 03-18-2024 End: 03-18-2024 Patient encounter procedure 03/18/2024 3:00 PM EST Appointment Radiation Oncology [address] [place], [place] [id number] Location: [facility] Comment on above: Location: [facility] Start: 03-17-2024 End: 03-17-2024 Patient encounter procedure 03/17/2024 3:00 PM EST Appointment Radiation Oncology [address] [place], [place] [address] Location: [facility] Comment on above: Location: [facility] Start: 03-16-2024 End: 03-16-2024 Patient encounter procedure Radiation Oncology Comment on above: Location: [facility] Location: W[facility] TREAT MENT VISIT Start: 03-15-2024 End: 03-15-2024 Patient encounter procedure Radiation Oncology Comment on above: Location: [facility] remove cath [place] Start: 03-12-2024 End: 03-12-2024 Patient encounter procedure 03/12/2024 3:00 PM EST Appointment Radiation Oncology [address] [place], [place] [id number] Location: [facility] Comment on above: Location: [facility] Start: 03-11-2024 End: 03-11-2024 Patient encounter procedure 03/11/2024 3:00 PM EST Appointment Radiation Oncology [address] [place] [address] Location: [facility] Comment on above: Location: [facility] Start: 03-10-2024 End: 03-10-2024 Patient encounter procedure 03/10/2024 3:00 PM EST Appointment Radiation Oncology [address] [place] [address] Location: [facility] Comment on above: Location: [facility] Start: 03-09-2024 End: 03-09-2024 Patient encounter procedure Radiation Oncology Comment on above: Location: [facility] Location: W-ON TREAT MENT VISIT Start: 03-08-2024 End: 03-08-2024 Admission to same day surgery center 03/08/2024 9:20 AM EST - 03/08/2024 10:40 AM EST Surgery [facility] Surgery [address] [place] [address] [place] [address] Radha Larsen MD [address] [place] [address] CYSTOSCOPY, RETROPYELOGRAM [facility] Comment on above: CYSTOSCOPY, RETROPYE LOGRAM Start: 03-08-2024 Subsequent hospital visit by physician 03/08/2024 9:20 AM EST Hospital Encounter [facility] Surgery [address] [place] [address] [place] [address] Radha Larsen MD [address] [place] [id number] Prostate cancer (HCC) [C61], Hydronephrosis, unspecified hydronephrosis type [N13.30], HERMES (acute kidney injury) (HCC) [N17.9] [facility] Comment on above: Prostate cancer (HCC ) [C61], Hydronephrosis, unspecified hydronephrosis type [N13.30], HERMES (acute kidney injury) (HCC) [N17.9] Start: 03-08-2024 End: 03-08-2024 Cysto bladder w/ureteral catheterization MR OR Start: 03-08-2024 End: 03-08-2024 Cysto w/insert ureteral stent MR OR Start: 03-02-2024 End: 03-02-2024 Nursing evaluation of patient and report 03/02/2024 1:45 PM EDT Nurse Visit Radiation Oncology [address] [place] [address] Wstr, Nurse Radt [facility] [address] [place] [address] Location: [facility] Radiation Oncology Comment on above: Location: W[facility]NURSING Start: 03-02-2024 End: 03-02-2024 Patient encounter procedure 03/02/2024 12:45 PM EDT Office Visit Radiation Oncology [address] [place] [address] Rodolfo Aguilar MD [address] [place] [address] sim at this time. 4d Radiation Oncology Comment on above: sim at this time. 4d Start: 03-01-2024 End: 03-01-2024 Patient encounter procedure 03/01/2024 10:00 AM EDT Office Visit Radiation Oncology [address] [place] [address] Rodolfo Aguilar MD [address] [place] [address] CONSULT Radiation Oncology Comment on above: CONSULT Start: 03-01-2024 End: 03-01-2024 ambulatory 03/01/2024 9:15 AM EDT [facility] [address] [place] [address] Devin Cortes MD [address] [place] [address] Return Virtual visit friday morning Urology Comment on above: Return Virtual visit friday morning Start: 02-27-2024 End: 02-27-2024 ambulatory 02/27/2024 2:45 PM EDT Infusion Center Hematology/Oncology [address] [place] [address] Wstr, Injection Nirmal [facility] [address] [place] [address] coming in at 8:30 OV - START Q3MO LUPRON* Hematology/Oncology Comment on above: coming in at 8:30 OV - START Q3MO LUPRON* Start: 02-27-2024 Subsequent hospital visit by physician 02/27/2024 12:11 PM EDT Hospital Encounter Radiology CT Scan [address] [place] [address] Scan Start: 02-27-2024 End: 02-27-2024 Patient encounter procedure 02/27/2024 11:15 AM EDT Office Visit Urology [address] [place] [address] Devin Cortes MD [address] [place], [place] [id number] prostate biopsy results Urology Comment on above: prostate biopsy resu lts Start: 02-27-2024 End: 02-27-2024 ambulatory 02/27/2024 8:30 AM EDT Visit (SP) Office Hematology/Oncology [address] [place] [address] [place] [address] [place] [address] OV/BONE SCAN 03/22/LUPRON START TODAY* Hematology/Oncology Comment on above: OV/BONE SCAN 03/22/L UPRON START TODAY* Start: 02-26-2024 End: 05-27-2024 Comprehensive metabolic 2000 panel - Serum or Plasma [facility] Work Phone: Comment on above: Expected: 02/26/2024 , Expires: 05/27/2024 Start: 02-26-2024 End: 05-27-2024 Thyrotropin [Units/volume] in Serum or Plasma [facility] Comment on above: Expected: 02/26/2024 , Expires: 05/27/2024 Start: 02-26-2024 End: 05-27-2024 Urinalysis complete panel - Urine [facility] Comment on above: Expected: 02/26/2024 , Expires: 05/27/2024 Start: 02-20-2024 End: 02-20-2024 Patient encounter procedure 02/20/2024 3:30 PM EDT Appointment Nuclear Medicine [address] [place] [address] Retroperitoneal lymphadenopathy [R59.0]; Prostate cancer (HCC) [C61] Nuclear Medicine Comment on above: 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]; Prostate cancer (HCC) [C61] Start: 02-20-2024 End: 02-20-2024 Patient encounter procedure 02/20/2024 12:30 PM EDT Appointment Nuclear Medicine [address] [place], [place] [address] Retroperitoneal lymphadenopathy [R59.0]; Prostate cancer (HCC) [C61] Nuclear Medicine Comment on above: 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]; Prostate cancer (HCC) [C61] Start: 02-17-2024 End: 02-17-2024 Patient encounter procedure 02/17/2024 3:45 PM EDT Office Visit Urology [address] [place] [address] Devin Cortes MD [address] [place] [address] prostate biopsy results Urology Comment on above: prostate biopsy resu lts Start: 02-13-2024 End: 02-13-2024 ambulatory 02/13/2024 3:20 PM EDT Visit (SP) Office Hematology/Oncology [address] [place], [place] [address] [place] [address] [place] [address] 3 WK OV* Hematology/Oncology Comment on above: 3 WK OV* Start: 02-05-2024 BP Controlled (<130/80) BP Controlle d (<130/80) [facility] Start: 01-26-2024 End: 01-26-2024 Patient encounter procedure 01/26/2024 1:30 PM EDT Office Visit Urology [address] [place] [address] Devin Cortes MD [address] [place] [address] pnb Urology Comment on above: pnb Start: 01-23-2024 End: 01-23-2024 ambulatory 01/23/2024 11:50 AM EDT Visit (SP) Office Hematology/Oncology [address] [place] [address] [place] [address] [place] [address] 3 WK OV* Hematology/Oncology Comment on above: 3 WK OV* Start: 01-16-2024 End: 01-16-2024 Patient encounter procedure 01/16/2024 2:45 PM EDT Office Visit Urology [address] [place] [address] Devin Cortes MD [address] [place] [address] 2-wk follow up Urology Comment on above: 2-wk follow up Start: 01-04-2024 ANNUAL PCP TEAM CODING AND REIMBURSEMENT SPECIALIST KALI DISEASE VISIT ANNUAL PCP TEAM CHRONIC DISEASE VISIT [facility] Start: 01-04-2024 Influenza vaccination [facility] Start: 01-02-2024 End: 01-02-2024 ambulatory 01/02/2024 1:00 PM EDT Visit (SP) Office Hematology/Oncology [address] [place], [place] [address] [place] [address] [place] [address] DIRECTOR OF EMAIL MARKETING/RECTAL MASS/REF CODY CARRINGTON* - FIRST AVAILABLE/PATIENT PREFERENCE Hematology/Oncology Comment on above: DIRECTOR OF EMAIL MARKETING/RECTAL MASS/REF Giovany CARRINGTON* - FIRST AVAILABLE/PATIENT PREFERENCE Start: 12-31-2023 End: 12-31-2023 Patient encounter procedure 12/31/2023 10:00 AM EDT Office Visit Urology [address] [address] Devin Cortes MD [address] [place] [address] mestatic prostate cancer Urology Comment on above: mestatic prostate ca ncer Start: 12-19-2023 Screening for malign ant neoplasm of colon Colorectal Cancer Screening [facility] Start: 12-18-2023 End: 12-18-2023 Patient encounter procedure 12/18/2023 1:45 PM EDT Appointment Ambulatory Surgery [address] [place] [address] Fernando Wen MD [address] [place] [address] COLON - NEEDS TO HOLD ELIQUIS 5 DAYS PRIOR Ambulatory Surgery Comment on above: COLON - NEEDS TO HOL D ELIQUIS 5 DAYS PRIOR Start: 12-05-2023 Screening for malign ant neoplasm of colon Colorectal Cancer Screening [facility] Start: 12-04-2023 End: 12-04-2023 Patient encounter procedure 12/04/2023 9:00 AM EDT Appointment Radiology [facility] [place] [address] [place] [address] Constipation, unspecified constipation type [K59.00] Radiology CT [facility] Comment on above: Constipation, unspec ified constipation type [K59.00] Start: 10-24-2023 End: 10-24-2023 Patient encounter procedure 10/24/2023 3:40 PM EDT Office Visit Internal Medicine [place] [address] [place], [place] [id number] Cody Carrington MD [address] [place] [address] Yearly, 3 month follow-up Internal Medicine [place] Comment on above: Yearly, 3 month foll ow-up Start: 10-24-2023 End: 01-23-2024 Basic metabolic 2000 panel - Serum or Plasma BASIC METABOLIC PNL Lab Routine Impaired fasting glucose Expected: 10/24/2023, Expires: 01/23/2024 [facility] Work Phone: Comment on above: Expected: 10/24/2023 , Expires: 01/23/2024 Start: 10-24-2023 End: 01-23-2024 CBC panel - Blood by Automated count CBC Lab Routine Anemia, unspecified type Expected: 10/24/2023, Expires: 01/23/2024 [facility] Work Phone: Comment on above: Expected: 10/24/2023 , Expires: 01/23/2024 Start: 10-24-2023 End: 01-23-2024 Hemoglobin A1c in Blood HGB A1C Lab Routine Impaired fasting glucose Expected: 10/24/2023, Expires: 01/23/2024 [facility] Work Phone: Comment on above: Expected: 10/24/2023 , Expires: 01/23/2024 Start: 10-24-2023 End: 01-23-2024 Prostate specific Ag [Mass/volume] in Serum or Plasma PSA/PROSTSPECAG DIAG Lab Routine Elevated PSA Expected: 10/24/2023, Expires: 01/23/2024 [facility] Work Phone: Comment on above: Expected: 10/24/2023 , Expires: 01/23/2024 Start: 10-22-2023 End: 10-22-2023 Patient encounter procedure 10/22/2023 11:20 AM EDT Office Visit [facility] [address] [place] [address] Chris Barrera MD [address] [place] [address] [place] [phone] Larkin for afib, PAF w/ symptoms. Ok per MS. [facility] Comment on above: Referral from Dr. Marshall vasquez for afib, PAF w/ symptoms. Ok per MS. Start: 08-17-2023 ANNUAL PCP TEAM CODING AND REIMBURSEMENT SPECIALIST KALI DISEASE VISIT ANNUAL PCP TEAM CHRONIC DISEASE VISIT [facility] Start: 07-20-2023 COLOGUARD (FIT-DNA) COLOGUARD (FIT-D NA) [facility] Start: 07-20-2023 COLORECTAL CANCER SCREENING COLORECTAL CANCER SCREENING [facility] Start: 07-05-2023 ANNUAL PCP TEAM CODING AND REIMBURSEMENT SPECIALIST KALI DISEASE VISIT ANNUAL PCP TEAM CHRONIC DISEASE VISIT [facility] Start: 07-04-2023 End: 09-03-2023 CBC panel - Blood by Automated count CBC Lab Routine Primary hypertension Expected: 07/04/2023, Expires: 09/03/2023 [facility] Work Phone: Comment on above: Expected: 07/04/2023 , Expires: 09/03/2023 Start: 07-04-2023 End: 09-03-2023 Comprehensive metabolic 2000 panel - Serum or Plasma COMP METABOLIC PANEL Lab Routine Hyperlipidemia, unspecified hyperlipidemia type Expected: 07/04/2023, Expires: 09/03/2023 [facility] Work Phone: Comment on above: Expected: 07/04/2023 , Expires: 09/03/2023 Start: 07-04-2023 End: 09-03-2023 Lipid 1996 panel - Serum or Plasma LIPID PANEL BASIC Lab Routine Hyperlipidemia, unspecified hyperlipidemia type Expected: 07/04/2023, Expires: 09/03/2023 [facility] Work Phone: Comment on above: Expected: 07/04/2023 , Expires: 09/03/2023 Start: 07-04-2023 End: 09-03-2023 Thyrotropin [Units/volume] in Serum or Plasma TSH BLD Lab Routine Acquired hypothyroidism Expected: 07/04/2023, Expires: 09/03/2023 [facility] Work Phone: Comment on above: Expected: 07/04/2023 , Expires: 09/03/2023 Start: 06-17-2023 Patient discharge [facility] Start: 06-16-2023 Following clinical pathway protocol [facility] Start: 06-16-2023 Ambulation without limitation [facility] Start: 06-16-2023 Assessment of risk o f venous thromboembolism [facility] Start: 06-16-2023 Catheterization of vein [facility] Start: 06-16-2023 Incentive spirometry [facility] Start: 06-16-2023 Inhalation therapy procedure [facility] Start: 06-16-2023 Insertion of cathete r into peripheral vein [facility] Start: 06-16-2023 Measuring intake and output [facility] Start: 06-16-2023 Oxygen therapy [facility] Start: 06-16-2023 Providing care accor ding to standard [facility] Start: 06-16-2023 Referral to service [facility] Start: 06-16-2023 [facility] Start: 06-16-2023 Hospital admission, emergency, from emergency room, medical nature [facility] Start: 06-16-2023 Admission procedure [facility] Start: 06-16-2023 Patient referral to dietitian [facility] Start: 05-05-2023 Advance Directive Discussion Advance Directive Discussion [facility] Start: 05-05-2023 Behavioral Health Screening Behavioral Health Screening [facility] Start: 05-05-2023 Depression Assessment Depression Ass essment [facility] Start: 02-04-2023 End: 04-06-2023 ISOPSA ASSAY FOR UROLOGY USE ONLY [facility] Work Phone: Comment on above: Expected: 02/04/2023 (Approximate), Expires: 04/06/2023 Start: 01-03-2023 End: 03-05-2023 Basic metabolic 2000 panel - Serum or Plasma [facility] Work Phone: Comment on above: Expected: 01/03/2023 , Expires: 03/05/2023 Start: 01-03-2023 Covid-19 Vaccine () Covid-19 Vaccine () [facility] Start: 01-03-2023 Influenza vaccination [facility] Start: 01-03-2023 End: 11-01-2023 Prostate specific Ag [Mass/volume] in Serum or Plasma [facility] Work Phone: Comment on above: Expected: 01/03/2023 , Expires: 03/05/2023 Start: 12-27-2022 Adult depression screening assessment DEPRESSION SCREENING [facility] Start: 12-27-2022 ANNUAL PCP TEAM CODING AND REIMBURSEMENT SPECIALIST KALI DISEASE VISIT ANNUAL PCP TEAM CHRONIC DISEASE VISIT [facility] Start: 12-27-2022 BP CONTROLLED (<130/80) BP CONTROLLE D (<130/80) [facility] Start: 12-27-2022 COVID-19 VACCINE (3 - Booster for Pfizer series) COVID-19 VACCINE (3 - Booster for Pfizer series) [facility] Comment on above: Postponed from 11/26 (Declined at this time) Postponed from 08/24 (Declined at this time) Start: 11-01-2022 Influenza vaccination INFLUENZA (#1) [facility] Comment on above: Postponed from 01/03 (Declined at this time) Start: 08-17-2022 COLORECTAL CANCER SCREENING COLORECTAL CANCER SCREENING [facility] [facility] Start: 08-17-2022 FECAL OCCULT BLOOD FECAL OCCULT BLOO D [facility] Start: 08-17-2022 Screening for malign ant neoplasm of colon [facility] Start: 07-27-2022 ANNUAL PCP TEAM CODING AND REIMBURSEMENT SPECIALIST KALI DISEASE VISIT ANNUAL PCP TEAM CHRONIC DISEASE VISIT [facility] Start: 07-27-2022 BP CONTROLLED (<130/80) BP CONTROLLE D (<130/80) [facility] Start: 06-29-2022 End: 08-29-2022 CBC panel - Blood by Automated count CBC Lab Routine Primary hypertension Expected: 06/29/2022, Expires: 08/29/2022 [facility] Work Phone: Comment on above: Expected: 06/29/2022 , Expires: 08/29/2022 Start: 06-29-2022 End: 08-29-2022 Comprehensive metabolic 2000 panel - Serum or Plasma COMP METABOLIC PANEL Lab Routine Primary hypertension Expected: 06/29/2022, Expires: 08/29/2022 [facility] Work Phone: Comment on above: Expected: 06/29/2022 , Expires: 08/29/2022 Start: 06-29-2022 End: 08-29-2022 Lipid 1996 panel - Serum or Plasma LIPID PANEL BASIC Lab Routine Hyperlipidemia, unspecified hyperlipidemia type Expected: 06/29/2022, Expires: 08/29/2022 [facility] Work Phone: Comment on above: Expected: 06/29/2022 , Expires: 08/29/2022 Start: 06-29-2022 End: 08-29-2022 Thyrotropin [Units/volume] in Serum or Plasma TSH BLD Lab Routine Acquired hypothyroidism Expected: 06/29/2022, Expires: 08/29/2022 [facility] Work Phone: Comment on above: Expected: 06/29/2022 , Expires: 08/29/2022 Start: 05-05-2022 ADVANCE DIRECTIVE DISCUSSION ADVANCE DIRECTIVE DISCUSSION [facility] Start: 01-03-2022 Influenza vaccination INFLUENZA (#1) [facility] Start: 08-18-2021 COLORECTAL CANCER SCREENING COLORECTAL CANCER SCREENING [facility] Start: 06-26-2021 Adult depression screening assessment DEPRESSION SCREENING [facility] Start: 05-05-2021 ADVANCE DIRECTIVE DISCUSSION ADVANCE DIRECTIVE DISCUSSION [facility] Start: 11-26-2020 COVID-19 VACCINE (3 - Booster for Pfizer series) COVID-19 VACCINE (3 - Booster for Pfizer series) [facility] Start: 08-24-2020 COVID-19 VACCINE (3 - Pfizer series) COVID-19 VACCINE (3 - Pfizer series) [facility] Start: 02-24-2018 FECAL OCCULT BLOOD FECAL OCCULT BLOO D [facility] Start: 2017 RSV Vaccine (1 - 1-d ose 75+ series) RSV Vaccine (1 - 1-dose 75+ series) [facility] Start: 06-10-2014 Urine microalbumin profile DTaP,Tdap,Td Vaccine (1 - Tdap) [facility] Start: 09-03-2007 Medicare Annual Well ness Visit Medicare Annual Wellness Visit [facility] Start: 2002 RSV Vaccine (1 - 1-d ose 60+ series) RSV Vaccine (1 - 1-dose 60+ series) [facility] Start: 07-09-1987 COLOGUARD (FIT-DNA) COLOGUARD (FIT-D NA) [facility] Start: 07-09-[address] COLONOGRAPHY [facility] Start: 07-09-1987 Screening for malign ant neoplasm of colon [facility] Start: 07-09-1987 SIGMOIDOSCOPY SIGMOIDOSCOPY [facility] Start: 1960 BP CONTROLLED (<130/80) BP CONTROLLE D (<130/80) [facility] Start: 1960 Colonoscopy COLONOSCOPY [facility] Start: 1960 Screening for malign ant neoplasm of colon Colonoscopy [facility] Bacteria identified in Urine by Culture BACTERIAL CULTURE, URINE Microbiology Routine Dysuria 05/21/2024 8:52 AM EST [facility] Work Phone: CATHETER INSERT-BORREGO CATHETER I NSERT-BORREGO Procedures Routine Acute urinary retention Ordered: 03/26/2024 [facility] Comment on above: Ordered: 03/26/2024 COLOGUARD COLOGUARD Lab Ro utine Screening for colon cancer Ordered: 07/04/2022 [facility] Work Phone: Comment on above: Ordered: 07/04/2022 End: 11-23-2024 CT Colon and Rectum W air contrast DE CT COLONOGRAPHY SCREENING WO IVCON Radiology Routine Constipation, unspecified constipation type 1 Occurrences starting 10/25/2023 until 11/23/2024 [facility] Work Phone: Comment on above: 1 Occurrences starti ng 10/25/2023 until 11/23/2024 CT Guidance for radi ation treatment of Unspecified body region CT SIM PLANNING RADIATION ONCOLOGY Radiology Routine 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) Ordered: 03/04/2024 [facility] Work Phone: Comment on above: Ordered: 03/04/2024 End: 05-14-2025 CT Kidney WO and W contrast IV CT UROGRAM WO/W IVCON Radiology Routine Bilateral hydronephrosis Other hydronephrosis 1 Occurrences starting 04/14/2024 until 05/14/2025 [facility] Work Phone: Comment on above: 1 Occurrences starti ng 04/14/2024 until 05/14/2025 CT Kidney WO and W contrast IV CT UROGRAM WO/W IVCON Radiology Routine Bilateral hydronephrosis Other hydronephrosis 06/21/2024 11:15 AM EST [facility] Work Phone: Cysto w/simple remov al stone & stent CYSTO W/URETER STENT EXTRACT Procedures Routine Prostate cancer (HCC) Bilateral hydronephrosis Ordered: 07/15/2024 [facility] Work Phone: Comment on above: Ordered: 07/15/2024 ECG COMPLETE [facility] Work Phone: Comment on above: Ordered: 06/16/2023 Hemoglobin.gastroint estin al.lower [Presence] in Stool by Immunoassay FECAL OCCULT BLOOD TEST Lab Routine Screening for colon cancer Ordered: 08/03/2021 [facility] Work Phone: Comment on above: Ordered: 08/03/2021 End: 03-14-2025 NM Whole body Bone Views NM BONE WHOLE BODY Radiology Routine Retroperitoneal lymphadenopathy Prostate cancer (HCC) 1 Occurrences starting 02/13/2024 until 03/14/2025 [facility] Work Phone: Comment on above: 1 Occurrences starti ng 02/13/2024 until 03/14/[address] [facility] Work Phone: POST VOID RESIDUAL POST VOID RES IDUAL Procedures Routine Urinary frequency Lower urinary tract symptoms (LUTS) Ordered: 02/04/2023 [facility] Work Phone: Comment on above: Ordered: 02/04/2023 PROSTATE BIOPSY GUKI PROSTATE BI OPSY GUKI Procedures Routine Elevated prostate specific antigen (PSA) Ordered: 02/10/2023 [facility] Work Phone: Comment on above: Ordered: 02/10/2023 PROSTATE BIOPSY GUKI PROSTATE BI OPSY GUKI Procedures Routine Elevated prostate specific antigen (PSA) Ordered: 12/31/2023 [facility] Work Phone: Comment on above: Ordered: 12/31/2023 End: 02-26-2025 Prostate specific Ag [Mass/volume] in Serum or Plasma PROSTATE-SPECIFIC ANTIGEN DIAGNOSTIC Lab Routine Prostate cancer (HCC) Every 6 weeks for 8 Occurrences starting 02/27/2024 until 02/26/2025 [facility] Work Phone: Comment on above: Every 6 weeks for 8 Occurrences starting 02/27/2024 until 02/26/2025 End: 12-07-2024 Screening colonoscopy COLONOSCOPY SCREENING Endoscopy Routine Rectal mass 1 Occurrences starting 12/08/2023 until 12/07/2024 [facility] Work Phone: Comment on above: 1 Occurrences starti ng 12/08/2023 until 12/07/2024 SURGICAL PATHOLOGY SURGICAL PATH OLOGY Lab Routine Elevated prostate specific antigen (PSA) Ordered: 01/26/2024 [facility] Work Phone: Comment on above: Ordered: 01/26/2024 End: 08-14-2025 US Kidney - bilateral and Urinary bladder US KIDNEY/BLADDER Radiology Routine Bilateral hydronephrosis 1 Occurrences starting 07/15/2024 until 08/14/2025 [facility] Comment on above: 1 Occurrences starti ng 07/15/2024 until 08/14/2025 US Kidney - bilatera l and Urinary bladder US KIDNEY/BLADDER Radiology Routine Bilateral hydronephrosis 07/22/2024 8:48 AM EDT [facility] Work Phone: VOIDING TRIAL PROTOCOL VOIDING T RIAL PROTOCOL Procedures Routine Bilateral hydronephrosis Ordered: 03/11/2024 [facility] Work Phone: Comment on above: Ordered: 03/11/2024 VOIDING TRIAL PROTOCOL VOIDING T RIAL PROTOCOL Procedures Routine Bilateral hydronephrosis Ordered: 03/15/2024 [facility] Work Phone: Comment on above: Ordered: 03/15/2024 [facility] Immunizations Immunization Date Immunization Notes Care Provider Fa cili 02-26-2024 influenza, high dose seasonal, preservative-free Cody Carrington MD Work Phone: [facility] 02-26-2024 influenza virus vacc ine, unspecified formulation Cody Carrington MD Work Phone: [facility] 06-20-2021 influenza, high-dose , quadrivalent vaccine (FLUZONE HIGH DOSE QUADRIVALENT) Cody Carrington MD Work Phone: [facility] Work Phone: 06-20-2021 influenza virus vacc ine, unspecified formulation Robert Toscano PA-C Work Phone: [facility] 05-29-2020 zoster vaccine recombinant Cody Carrington MD Work Phone: [facility] Work Phone: 02-09-2020 influenza, high dose seasonal, preservative-free Cody Carrington MD Work Phone: [facility] Work Phone: 02-09-2020 pneumococcal conjuga te vaccine, 13 valent Cody Carrington MD Work Phone: [facility] Work Phone: 02-09-2020 zoster vaccine recombinant Cody Carrington MD Work Phone: [facility] Work Phone: 01-29-2019 influenza, high dose seasonal, preservative-free Cody Carrington MD Work Phone: [facility] 06-21-2016 influenza, high dose seasonal, preservative-free Cody Carrington MD Work Phone: [facility] Work Phone: 05-23-2015 pneumococcal conjuga te vaccine, 13 valent Cody Carrington MD Work Phone: [facility] 01-31-2015 influenza, high dose seasonal, preservative-free Cody Carrington MD Work Phone: [facility] 06-09-2014 tetanus and diphther ia toxoids, adsorbed, preservative free, for adult use (5 Lf of tetanus toxoid and 2 Lf of diphtheria toxoid) Cody Carrington MD Work Phone: [facility] 03-08-2014 influenza, seasonal, injectable Cody Carrington MD Work Phone: [facility] 03-08-2014 pneumococcal polysaccharide vaccine, 23 edie Carrington MD Work Phone: [facility] Payers Date Payer Category Payer [facility] [id number] 2024 Medicare [id number] 2024 Self-pay [id number] 2022 Private Health Insurance AULTCAR [id number] 2022 Unknown [id number] 2020 Unknown MMO MMO MHS [id number] 2020-Present [phone] [address] [address] [place] [address] Indemnity [id number] 2020 Unknown [id number] 2007 Medicare MEDICARE MEDICAR E A AND B [id number] 2007-Present [phone] [address] [address] [place] [address] Medicare [id number] 2007 Medicare [id number] 2007 Medicare [id number] Unknown [id number] Unknown [id number] Unknown [id number] Unknown [id number] Unknown [id number] Unknown [id number] Unknown [id number] Social History Date Type Detail Facility Start: 03-08-2014 End: 03-04-2024 Tobacco smoking status NHIS Ex-smoker [facility] Work Phone: Start: 1960 End: 1977 History of tobacco use Current smoker [facility] Work Phone: Start: 1960 End: 1977 History of tobacco use Cigarette Smoker [facility] Work Phone: Start: 03-08-2014 End: 01-03-2023 Cigarettes smoked current (pack per day) - Reported 1 [facility] Start: 03-08-2014 End: 03-04-2024 Tobacco use and exposure Smokeless tobacco non-user [facility] Work Phone: Start: 07-27-2021 End: 03-01-2024 Alcohol intake Current drinker of alcohol (finding) [facility] Start: 06-26-2020 End: 07-04-2022 History SDOH Housing Unable to Pay 3 [facility] Start: 1940 Sex Assigned At Not on file [facility] Start: 07-07-2021 End: 12-27-2021 Exposure to SARS-CoV-2 (event) Not sure [facility] Start: 07-04-2022 History SDOH Alcohol Frequency 1 [facility] Start: 06-26-2020 History SDOH Alcohol Std Drinks 98 [facility] Start: 07-04-2022 History SDOH Physica l Activity DPW 0 [facility] Start: 07-04-2022 History SDOH Stress 2 [facility] Start: 07-04-2022 End: 01-03-2023 Social connection and isolation panel [facility] Start: 01-26-2014 In a typical week, h ow many times do you talk on the telephone with family, friends, or neighbors? Patient refused [facility] Are you now , , , , never or living with a partner? Refused [facility] How often to you hav e a drink containing alcohol? Never [facility] Do you feel stress - tense, restless, nervous, or anxious, or unable to sleep at night because your mind is troubled all the time - these days [OSQ] Only a little [facility] (I/We) worried meaghan er (my/our) food would run out before (I/we) got money to buy more. DK or Refused [facility] Start: 06-16-2023 End: 06-16-2023 Tobacco smoking status NHIS Unknown if ever smoked [facility] Start: 07-03-2020 None [facility] Start: 07-03-2020 Alone [facility] Start: 1940 Sex Assigned At Male W [facility] Start: 01-02-2024 Tobacco Comment Pt smoked 1 pa ck daily x 14 years, quit in 1965 [facility] History of tobacco use Passive smoker [facility] Start: 03-04-2024 End: 01-04-2025 Alcoholic beverage intake Ex-drinker (finding) [facility] Do you feel stress - tense, restless, nervous, or anxious, or unable to sleep at night because your mind is troubled all the time - these days [OSQ] Not at all [facility] In the past 12 month s, was there a time when you were not able to pay the mortgage or rent on time? No [facility] Medical Equipment Procedure Code Equipment Code Equipment Origin al Text Equipment Identifier Dates Set 6fr .038in 2 Pigtail Curve Filiform Black Stain[employer] Vinyl - [id number] Start: 03-08-2024 Set 6fr .038in 2 Pigtail Curve Filiform Black Stainless [employer] Vinyl - [id number] Start: 03-08-2024 Goals Date Patient Goal Desired Activity /State Personal health goal Functional Status Date Assessment Result Facility 01-04-2025 Total score [AUDIT-C] 0 01/05/20 25 9:52 AM Cody Rayo MD [facility] 06-17-2023 Functional status Activity Abili ty Independent [facility] Work Phone: 01-29-2019 Are you deaf, or do you have serious difficulty hearing No 01/29/2019 8:38 AM Cody Rayo MD No [facility] 01-29-2019 Are you blind, or do you have serious difficulty seeing, even when wearing glasses No 01/29/2019 8:38 AM Cody Rayo MD No [facility] 01-29-2019 Do you have serious difficulty walking or climbing stairs No 01/29/2019 8:38 AM Cody Rayo MD No [facility] 01-29-2019 Do you have difficul ty dressing or bathing No 01/29/2019 8:38 AM Cody Rayo MD No [facility] 01-29-2019 Because of a physica l, mental, or emotional condition, do you have difficulty doing errands alone such as visiting a physician's office or shopping No 01/29/2019 8:38 AM Cody Rayo MD No [facility] Mental Status Date Assessment Result Facility 06-17-2023 Cognitive function Voice/Name [facility] Work Phone: 06-16-2023 Cognitive function Awake;Alert;A ppropriate; Follows Commands [facility] Work Phone: 01-29-2019 Because of a physica l, mental, or emotional condition, do you have serious difficulty concentrating, remembering, or making decisions No 01/29/2019 8:38 AM Cody Rayo MD No [facility] Clinical Notes 07-03-2020 to 02-25-2025 Cody Carrington MD - 01/04/2025 10:15 AM Cody Buckley MD - 01/04/2025 10:07 AM EDTPatient InstructionsJohan Payne MD - 11/12/2024 9:14 AM EDTPatient Instructions Note Date & Type Note Facility 02-25-2025 Note HNO ID: [id number] Author: RADHA LARSEN MD Service: ? Author Type: Physician Type: Progress Notes Filed: 02/25/2025 08:43 Note Text: [facility] ESTABLISHED PATIENT NOTE [...] report to emergency department for evaluation. 8. [facility] (current) use of anticoagulants (Z79.01) Chronically anticoagulated [...] every 8 ho (more content not included)... [facility] 02-22-2025 Note HNO ID: [id number] Author: PINA SCHUSTER, ? Service: ? Author [...] review for which he follows with [facility]. Would recommend following up with [...] 5 mg table (more content not included)... [facility] 02-11-2025 Note HNO ID: [id number] Author: DAWN JAIMES LPN Service: ? Author Type: Licensed Nurse Type: Progress Notes Filed: 02/14/2025 14:06 Note Text: Eligard injection administered, RLQ tolerated well, no immediate adverse reactions noted. See office notes Dawn Jaimes LPN [facility] 02-11-2025 Note HNO ID: [id number] Author: PINA SCHUSTER, ? Service: ? Author [...] [facility] 01-04-2025 Note HNO ID: [id number] Author: CODY CARRINGTON MD Service: ? Author [...] is alert. Gait: Gait normal. Latest Ref [facility] 11/12/2024 WBC 3.70 - 11.00 k/uL 5.15 [...] eGFR: 45 Stable (more content not included)... [facility] 01-04-2025 History of Present illness Narrative Subjective [...] Medicine) Johan Payne MD (Hematology/Oncology) Leela Drake, HOSPITAL ADMINISTRATIVE ASSISTANT.[place] as Emblem Maker (Internal Medicine) Radha Larsen MD (Urology) Rodolfo Aguilar MD (Radiation Oncology) Outside specialists seen: Sruthi Larkin as Specialty Drum Drier (Cardiology) Medical/Family history review Reviewed and updated [...] Vaccine recommendations reviewed. Get from the pharmacy. oCdy Carrington MD documented in this encounter [facility] 01-04-2025 Instructions Cody Carrington MD - 01/04/2025 [...] review all the medicines you take, even jiyk-[id number] medicines. As you get older, the way [...] certain medical conditions. documented in this encounter [facility] 01-04-2025 Note HNO ID: [id number] Author: CODY CARRINGTON MD Service: ? Author [...] Medicine) Johan Payne MD (Hematology/Oncology) Leela Drake, HOSPITAL ADMINISTRATIVE ASSISTANT.[employer] as Emblem Maker (Internal Medicine) Radha Larsen MD (Urology) Rodolfo Aguilar MD (Radiation Oncology) Outside specialists seen: Sruthi Larkin as Specialty Drum Drier (Cardiology) Medical/Family history review Reviewed and updated [...] Get from the pharmacy. Cody Carrington MD [facility] 11-12-2024 Note HNO ID: [id number] Author: JOHAN PAYNE MD Service: ? Author [...] on the da (more content not included)... [facility] 11-12-2024 History of Present illness Narrative (Elements [...] which included preparing to see the patient, [id number] patient care, completing clinical documentation, obtaining and/or reviewing separately obtained history, counseling and educating the patient/family/caregiver, ordering medications, tests, or procedures, communicating with other HCPs (not separately reported), independently interpreting results (not separately reported), and communicating results to the patient/family/caregiver. Electronically Signed: Johan Payne MD November 12, 2024 documented in this encounter [facility] 11-12-2024 Note HNO ID: [id number] Author: KATHIA DEL ANGEL LPN Service: ? Author Type: LICENSED NURSE Type: Progress Notes Filed: 11/12/2024 13:57 Note Text: Patient here for injection of Eligard. Given SQ in LLQ. Patient tolerated well. For all other information regarding today, see today's OV note with Dr Payne. Kathia Del Angel LPN [facility] 11-12-2024 History of Present illness Narrative Patient here for injection of Eligard. Given SQ in LLQ. Patient tolerated well. For all other information regarding today, see today's OV note with Dr Payne. Kathia Del Angel LPN documented in this encounter [facility] 11-08-2024 Telephone encounter Note Pharmacy verified. Patient [...] Please advise. Thank you. Leila Antonio LPN. [facility] 11-08-2024 Miscellaneous Notes Pharmacy verified. Patient has [...] with nausea. TY documented in this encounter [facility] 11-08-2024 Telephone encounter Note Patient is calling for a refill of a medication prescribed for nausea when first diagnosed with cancer (name not remembered). He is asking if this refill can please be expedited today as he is dealing with nausea. TY [facility] 10-27-2024 Instructions Cody Carrington MD - 10/27/2024 4:20 PM EDT - Continue your current medications as prescribed; refills have been sent to [facility] for: Flexeril (muscle relaxer), Lipitor (cholesterol), [...] tests. - Keep your appointment with Dr. aPyne on November 12. - Schedule and attend a Medicare wellness visit in late December to recheck your blood pressure and update your labs. documented in this encounter [facility] 10-27-2024 Note HNO ID: [id number] Author: CODY CARRINGTON MD Service: ? Author Type: Physician Type: Progress Notes Filed: 10/27/2024 16:35 Note Text: This note was created using [employer] Onliner[employer]. Subjective Clint Villar is a 84 year old male. Patient presents with: F/U 6 months Recording using W[employer] software for draft documentation of the visit was discussed with the patient/authorized termite control service representative; all questions welcomed and answered. Patient/authorized termite control service representative agreed to proceed BPH: - Reports improvement [...] requiring frequent throat clearing. - Symptoms began [id number] infection, persisting for several months. - Previously [...] Flonase. - FLUTICASONE (more content not included)... [facility] 10-27-2024 History of Present illness Narrative This note was created using NoteWriter. Subjective Clint Villar is a 84 year old male. Patient presents with: F/U 6 months Recording using W[employer] software for draft documentation of the visit was discussed with the patient/authorized termite control service representative; all questions welcomed and answered. Patient/authorized termite control service representative agreed to proceed BPH: - Reports improvement [...] requiring frequent throat clearing. - Symptoms began [id number] infection, persisting for several months. - Previously [...] Cody Carrington MD documented in this encounter [facility] 09-07-2024 Telephone encounter Note Patient has been [...] Please advise. Thank you. Lucia Abbott MA. [facility] 09-07-2024 Miscellaneous Notes Patient has been identified [...] 2024 12:39 PM documented in this encounter [facility] 09-07-2024 Telephone encounter Note Prescription Refill Information [...] Albertina May September 07, 2024 12:39 PM [facility] 09-03-2024 Telephone encounter Note Call to patient, message left to call me back and phone/contact number provided. Bouchra Fortune RN [facility] Work Phone: 09-03-2024 Miscellaneous Notes Call to [...] Bouchra Fortune RN documented in this encounter [facility] 09-02-2024 Telephone encounter Note ORAL ANTI-CANCER AGENTS FOLLOW-UP PHONE CALL/VISIT Patient identified by name and date of . YES Patient is on day 9 of Xtandi (enzalutamide) for Prostate Cancer. Call to patient, message left to call me back and phone/contact number provided. Bouchra Fortune RN [facility] 08-26-2024 Note HNO ID: [id number] Author: RADHA LARSEN MD Service: ? Author Type: Physician Type: Progress Notes Filed: 08/26/2024 08:36 Note Text: [facility] ESTABLISHED PATIENT NOTE [...] Elevated PSA 01/09/2023 (more content not included)... [facility] 08-25-2024 Telephone encounter Note This has been scheduled as directed. Britt Agustin [facility] 08-25-2024 Miscellaneous Notes This has been scheduled as directed. Britt Agustin PSS: please schedule CMP/PSA/OV with next Lupron injection on 11/12/24. please send patient via MogoTixhart when completed. Chelsea Fortune RN Dr. Payne [...] Bouchra Tong, RN documented in this encounter [facility] 08-25-2024 Telephone encounter Note PSS: please schedule CMP/PSA/OV with next Lupron injection on 11/12/24. please send patient via MogoTixhart when completed. Chelsea Forutne RN [facility] Work Phone: 08-25-[address] Payne would like CMP/PSA/OV with next Lupron injection on 11/12/24 and he does not advise any OTC for bone loss at this time. Chelsea Fortune RN [facility] 08-25-2024 Telephone encounter Note ORAL ANTI-CANCER AGENTS [...] teaching topics as needed. Bouchra Fortune RN [facility] 08-20-2024 Note HNO ID: [id number] Author: DAWN JAIMES LPN Service: ? Author Type: LICENSED NURSE Type: Progress Notes Filed: 08/20/2024 09:41 Note Text: Eliquis injection administered, RLQ, tolerated well, no immediate adverse reactions noted. Dawn Jaimes LPN [facility] 08-20-2024 History of Present illness Narrative Eliquis injection administered, RLQ, tolerated well, no immediate adverse reactions noted. Dawn Jaimes LPN documented in this encounter [facility] 08-18-2024 Telephone encounter Note Prescription Refill Information [...] Treva May August 18, 2024 9:53 AM [facility] 08-18-2024 Miscellaneous Notes Prescription Refill Information The [...] 2024 9:53 AM documented in this encounter [facility] 07-27-2024 Telephone encounter Note Prescription Refill Information [...] Jaimes LPN July 27, 2024 2:55 PM [facility] 07-27-2024 Miscellaneous Notes Prescription Refill Information The [...] 2024 2:55 PM documented in this encounter [facility] 07-26-2024 Telephone encounter Note Prior authorization was approved for Xtandi. Plan Name: Salena LUPE reference number: [id number] Approval Dates: 07/24/2024 - 01/24/2025 However, s/he is required to use [facility] to fill this medication. Will queue prescription(s) to go to designated specialty pharmacy. For reference, their pharmacy phone number is [phone]. No further action by [facility]. Conner Austin, PharmD Clinical Pharmacist, Oncology [facility] P: , F: Pool: P [facility] Pool #: [id number] [facility] 07-26-2024 Miscellaneous Notes Prior authorization was approved for Xtandi. Plan Name: [employer] [place] reference number: [id number] Approval Dates: 07/24/2024 - 01/24/2025 However, s/he is required to use [facility] to fill this medication. Will queue prescription(s) to go to designated specialty pharmacy. For reference, their pharmacy phone number is [phone]. No further action by [facility]. Conner Austin, PharmD Clinical Pharmacist, Oncology [facility] P: , F: Pool: P [facility] Pool #: [id number] documented in this encounter [facility] 07-23-2024 Note HNO ID: [id number] Author: CHARIS BULL RN Service: ? Author Type: Registered Nurse Type: Progress Notes Filed: 07/23/2024 18:20 Note Text: [facility] received prescription for Xtandi from , prior authorization was initiated and pending review. Plan Name: [employer] Phone/ / [phone] Case: - Timeline: urgent Charis Bull RN [facility] 07-22-2024 History of Present illness Narrative Radiology [...] PATIENT PRESENTS WITH AN IMPLANTABLE OR ATTACHED ELECTROPLATING TECHNICIAN: No RADIOLOGY DEPARTMENT: Ultrasound PERIPHERAL IV DATA: Not applicable SIGNED BY: Louisa Moran RDMS July 22, 2024 8:45 AM documented in this encounter [facility] 07-22-2024 Note HNO ID: [id number] Author: LOUISA MORAN RDMS Service: ? Author Type: Senior Systems Analyst Type: Progress Notes Filed: 07/22/2024 08:46 Note [...] PATIENT PRESENTS WITH AN IMPLANTABLE OR ATTACHED ELECTROPLATING TECHNICIAN: No RADIOLOGY DEPARTMENT: Ultrasound PERIPHERAL IV DATA: Not applicable SIGNED BY: Louisa Moran RDMS July 22, 2024 8:[address] [facility] 07-15-2024 Note HNO ID: [id number] Author: RADHA LARSEN MD Service: ? Author Type: Physician Type: Progress Notes Filed: 07/15/2024 10:44 Note Text: [facility] ESTABLISHED PATIENT NOTE [...] OUTBREAK HTN (hypertensio (more content not included)... [facility] 07-15-2024 History of Present illness Narrative Images from the original note were not included. [facility] ESTABLISHED PATIENT NOTE [...] 10/21/2023 PRIMARY FOLLOWS CURRENTLY, DUE TO SEE [facility] Arthritis At risk for stroke 10/21/2023 [...] atrial fibrillation (HCC) 06/23/2023 DUE TO SEE [facility] FOR AFIB, PRIMARY FOLLOWS CURRENTLY, DID SEE CHRIS ACOSTA X1 APPOINTMENT BUT DID NOT CARE FOR MD SO WILL NOT GO BACK Positive colorectal cancer screening using Cologuard test 01/03/2023 Primary hypertension PRIMARY FOLLOWS Prostate cancer (HCC) 02/13/2024 DR LARSEN AND DR AGUILAR, AT [facility] IN [place] 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 Author Type: Physician Type: Procedures Filed: 07/15/2024 10:44 Note Text: [facility] PROCEDURE NOTE PATIENT: Clitn Villar (84 year old) DATE OF SERVICE: [...] Patient acknowledges understanding and consents to proceed. Transmission Engineer present for entirety of procedure. PROCEDURE DETAIL: [...] instructions: Completed Radha Larsen MD 07/15/2024 [facility] 07-15-2024 Procedure note Images from the original note were not included. [facility] PROCEDURE NOTE PATIENT: [...] Patient acknowledges understanding and consents to proceed. Transmission Engineer present for entirety of procedure. PROCEDURE DETAIL: [...] Patient instructions: Completed Radha Larsen MD 07/15/2024 [facility] 07-15-2024 Procedure note Images from the original note were not included. [facility] PROCEDURE NOTE PATIENT: [...] Patient acknowledges understanding and consents to proceed. Transmission Engineer present for entirety of procedure. PROCEDURE DETAIL: [...] Larsen MD 07/15/2024 documented in this encounter [facility] 07-12-2024 Telephone encounter Note Patient has been [...] Please advise. Thank you. Leila Antonio LPN. [facility] 07-12-2024 Miscellaneous Notes Patient has been identified [...] Leila Antonio LPN. documented in this encounter [facility] 07-09-2024 History of Present illness Narrative [facility] received prescription(s) for Xtandi from Dr. Payne's office. Benefits investigation was conducted, indicating that a prior authorization is required by patient's insurance plan with [facility]. Encounter will be updated once prior authorization has been submitted by [facility]. Bertha Torres CPhT [facility], Oncology P: / F: documented in this encounter [facility] 07-09-2024 Note HNO ID: [id number] Author: CONNER AUSTIN RPh Service: ? Author Type: ? Type: Progress Notes Filed: 07/26/2024 11:56 Note Text: Prior authorization was approved for Xtandi. Plan Name: [employer] [place] reference number: [id number] Approval Dates: 07/24/2024 - 01/24/2025 However, s/he is required to use [facility] to fill this medication. Will queue prescription(s) to go to designated specialty pharmacy. For reference, their pharmacy phone number is [phone]. No further action by [facility] Specialty. Latasha Austin, PharmD Clinical Pharmacist, Oncology [facility] P: , F: Pool: P [facility] Pool #: [id number] [facility] 07-09-2024 Note HNO ID: [id number] Author: ?, ?, ? Service: ? Author Type: ? Type: Progress Notes Filed: 07/09/2024 16:34 Note Text: [facility] received prescription(s) for Xtandi from Dr. Payne's office. Benefits investigation was conducted, indicating that a prior authorization is required by patient's insurance plan with [employer]. Encounter will be updated once prior authorization has been submitted by [facility]. Bertha Torres CPhT [facility], Oncology P: / F: [facility] 07-09-2024 Note HNO ID: [id number] Author: JOHAN PAYNE MD Service: ? Author [...] nourished. I spent (more content not included)... [facility] 07-09-2024 History of Present illness Narrative (Elements [...] which included preparing to see the patient, [id number] patient care, completing clinical documentation, obtaining and/or reviewing separately obtained history, counseling and educating the patient/family/caregiver, ordering medications, tests, or procedures, communicating with other HCPs (not separately reported), independently interpreting results (not separately reported), and communicating results to the patient/family/caregiver. Electronically Signed: Johan Payne MD July 09, 2024 documented in this encounter [facility] 07-09-2024 Telephone encounter Note Okay to schedule for office cystoscopy and bilateral ureteral stent removal [facility] 07-09-2024 Miscellaneous Notes Okay to schedule for office cystoscopy and bilateral ureteral stent removal Patient states leaving for [place] on August 02 and has stents in place, wanting to know if he can have the stents out before he leaves for [place]? Please advise Thanks documented in this encounter [facility] 2024 Telephone encounter Note Patient states leaving for [place] on August 02 and has stents in place, wanting to know if he can have the stents out before he leaves for [place]? Please advise Thanks [facility] 06-28-2024 Telephone encounter Note Pt called and is notified of providers message and instructions. Pt voices understanding. He states he does take 0.8 mg of the Flomax. Debra Ramirez RN [facility] 06-28-2024 Miscellaneous Notes Pt called and is [...] Albertina Bar RN documented in this encounter [facility] 06-28-2024 Telephone encounter Note 1) Correction: He is prescribed tamsulosin 0.4 mg two capsules at bedtime. (0.8 mg total). 2) He can probably go to any [facility] lab close to where he works. [facility] 06-28-2024 Telephone encounter Note Pt called and [...] before the lab closes. Debra Ramirez RN [facility] 06-28-2024 Telephone encounter Note Advise ER for syncope, fever, or worsening symptoms. Keep urology appointment. Urinalysis and urine culture. Verify if he is taking tamsulosin (Flomax) 0.4 mg at bedtime. [facility] 06-28-2024 Telephone encounter Note Patient reports he [...] severe sx's as discussed. Albertina Bar RN [facility] 06-23-2024 Telephone encounter Note Pt returned call and given provider's message below with verbalized understanding. Patient agreeable and understands his lab appt is 07/05/24 @ 7:15 am and his appt with Dr. Payne is 07/09/24 @ 8:15 am. Pt states this is fine with him. [facility] 06-23-2024 Miscellaneous Notes Pt returned call and [...] back. Clare May documented in this encounter [facility] 06-23-2024 Telephone encounter Note I called and [...] him when he calls back. Clare May [facility] 06-21-2024 History of Present illness Narrative Summary: [...] PATIENT PRESENTS WITH AN IMPLANTABLE OR ATTACHED ELECTROPLATING TECHNICIAN: No ALLERGIES: Reviewed and unchanged CONTRAST ALLERGY: [...] TIME: 11:16 AM documented in this encounter [facility] 06-21-2024 Note HNO ID: [id number] Author: EARNESTINE MONTES RT(R) Service: Radiology Author [...] PATIENT PRESENTS WITH AN IMPLANTABLE OR ATTACHED ELECTROPLATING TECHNICIAN: No ALLERGIES: Reviewed and unchanged CONTRAST ALLERGY: [...] DEPARTMENT: CT; Exam(s) Completed: Urogram SIGNATURE: Earnestine Miner Simon, RT(R) PATIENT NAME: Clint Villar DATE: June 21, 2024 TIME: 11:[address] [facility] 06-16-2024 Note HNO ID: [id number] Author: VALENTINA BERRY PA-C Service: ? Author Type: Physician Call Center Supervisor Type: Progress Notes Filed: 06/16/2024 15:24 Note Text: This note was created using [employer]. Subjective Clint Villar is a 83 year [...] INFLUENZA AANDB MOLECULAR (POC) Valentina Berry PA-C [facility] 06-16-2024 History of Present illness Narrative This note was created using [employer]. Subjective Clint Villar is a 83 year [...] Valentina Berry PA-C documented in this encounter [facility] 05-28-2024 Telephone encounter Note Discussed with patient mychart message. Advised patient that we will have to await results of CTU prior to discussion of removal of stents/replacement. Advised patient that travel is possible with the stents in place and discussed bladder irritants as well as drinking plenty of water and keeping stools soft and regular. Jacob Jenkins APRN.CNP [facility] Work Phone: 05-28-2024 Miscellaneous Notes Discussed with patient mychart message. Advised patient that we will have to await results of CTU prior to discussion of removal of stents/replacement. Advised patient that travel is possible with the stents in place and discussed bladder irritants as well as drinking plenty of water and keeping stools soft and regular. Jacob Jenkins APRN.CNP documented in this encounter [facility] 05-28-2024 Note HNO ID: [id number] Author: DAWN JAIMES LPN Service: ? Author Type: LICENSED NURSE Type: Progress Notes Filed: 05/28/2024 08:58 Note Text: eligard injection administered, left lower abd,tolerated well, no immediate adverse reactions noted. See OV notes Dawn Jaimes LPN [facility] 05-28-2024 History of Present illness Narrative eligard injection administered, left lower abd,tolerated well, no immediate adverse reactions noted. See OV notes Dawn Jaimes LPN documented in this encounter [facility] 05-28-2024 Note HNO ID: [id number] Author: PINA SCHUSTER, ? Service: ? Author [...] (96.4kg) SpO2 97% (more content not included)... [facility] 05-28-2024 History of Present illness Narrative Clint [...] which included preparing to see the patient, [id number] patient care, completing clinical documentation, obtaining and/or [...] of this patient. documented in this encounter [facility] 05-27-2024 Telephone encounter Note Left VM for patient to return call. Jacob Jenkins APRN.CNP [facility] Work Phone: 05-27-2024 Miscellaneous Notes Left VM for patient to return call. Jacob Jenkins APRN.CNP documented in this encounter [facility] 05-21-2024 History of Present illness Narrative This note was created using [employer]. Subjective Clint Villar is a 83 year [...] Cody Carrington MD documented in this encounter [facility] 05-21-2024 Note HNO ID: [id number] Author: CODY CARRINGTON MD Service: ? Author Type: Physician Type: Progress Notes Filed: 05/21/2024 09:00 Note Text: This note was created using [employer]. Subjective Clint Villar is a 83 year [...] Plan 1. Dysuri (more content not included)... [facility] 05-06-2024 Telephone encounter Note Patient is leaving for [place] 08/01/24, I spoke with the today and she is asking if the stents will be removed prior to their vacation. They currently are scheduled for the CT Urogram 06/21/24 and an established follow up 07/15/24. Please advise, thank you. [facility] 05-06-2024 Miscellaneous Notes Patient is leaving for [place] 08/01/24, I spoke with the today and she is asking if the stents will be removed prior to their vacation. They currently are scheduled for the CT Urogram 06/21/24 and an established follow up 07/15/24. Please advise, thank you. documented in this encounter [facility] 05-03-2024 Telephone encounter Note was notified Lucia Abbott MA [facility] 05-03-2024 Miscellaneous Notes was notified Lucia Abbott [...] Skylar Abraham RN documented in this encounter [facility] 05-03-2024 Telephone encounter Note Continue with daily iron Leela Drake APRN.CNP [facility] 04-29-2024 Telephone encounter Note Spouse (Susanne) calls [...] Please review and advise, Skylar Abraham RN [facility] 04-26-2024 Instructions Leela Drake APRN.[place] - 04/26/2024 1:52 PM EST Miralax for constipation documented in this encounter [facility] 04-26-2024 Note HNO ID: [id number] Author: LEELA DRAKE APRN.[place] Service: ? Author Type: Nurse Practitioner Type: Progress Notes Filed: 04/26/2024 16:15 Note Text: CC: Patient presents with: Hospital F/U: [facility] d/c UTI HPI Clint Villar is a 83 year old male who presents today for above. He was admitted to [facility] 04/16 to 04/18 for complicated UTI. 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 [facility] 04-26-2024 History of Present illness Narrative CC: Patient presents with: Hospital F/U: [facility] d/c UTI HPI Clint Villar is a 83 year old male who presents today for above. He was admitted to [facility] 04/16 to 04/18 for complicated UTI. 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 Leela Drake APRN.[employer] documented in this encounter [facility] 04-23-2024 Telephone encounter Note Patient's calls and [...] to ER. voiced understanding. Shanthi Daly RN [facility] 04-23-2024 Miscellaneous Notes Patient's calls and states [...] He can do labs today before appointment. [facility] ER report in [employer], printed for Dr. Carrington to review. Leila Antonio LPN called to let you know pt has a follow apt booked for tomorrow 04-23-24. Pt was to the [facility] ER 04-15-24 and then admitted and released 04-18-24. Pt doing okay weak from urinating a lot and not sleeping because of this. wants to make sure pt gets a urinalysis done and possible other blood work. Please review records from [facility]. Pt has been thru a lot with the prostate cancer and treatment, Pt's apt is 20 minutes for 04-23-24 and it is for a 6 month follow up. Please advise if there is any changes. Danielle Aviles LPN documented in this encounter [facility] 04-23-2024 Telephone encounter Note He can do labs today before appointment. [facility] 04-22-2024 Telephone encounter Note [facility] ER report in [employer], printed for Dr. Carrington to review. Leila Antonio LPN [facility] 04-22-2024 Telephone encounter Note called to let you know pt has a follow apt booked for tomorrow 04-23-24. Pt was to the [facility] ER 04-15-24 and then admitted and released 04-18-24. Pt doing okay weak from urinating a lot and not sleeping because of this. wants to make sure pt gets a urinalysis done and possible other blood work. Please review records from [facility]. Pt has been thru a lot with the prostate cancer and treatment, Pt's apt is 20 minutes for 04-23-24 and it is for a 6 month follow up. Please advise if there is any changes. Danielle Aviles LPN [facility] 04-21-[address] Payne aware and ok with appointment change. Chelsea Fortune RN [facility] Work Phone: 04-21-[address] Payne aware and ok with appointment change. Chelsea Fortune RN Spouse Susanne called to cancel appointments this week due to patient falling a total of 5 times last and Friday and two squad trips to [facility]. Patient is still having weakness and feels he can not make it to the office. Patient was R/S to 05/28 per advise of nurse Sanders. documented in this encounter [facility] 04-20-2024 Telephone encounter Note Spouse Susanne called to cancel appointments this week due to patient falling a total of 5 times last and Friday and two squad trips to [facility]. Patient is still having weakness and feels he can not make it to the office. Patient was R/S to 05/28 per advise of nurse Sanders. [facility] 04-20-2024 Note HNO ID: [id number] Author: RODOLFO AGUILAR MD Service: ? Author [...] Time Spent: 5 minutes Rodolfo Aguilar MD [facility] 04-20-2024 History of Present illness Narrative AMBULATORY [...] Rodolfo Aguilar MD documented in this encounter [facility] 04-18-2024 Note [facility] Medical Records Department [address] [place] [address] Discharge Summary 04/18/24 1202 MR#: [id number] Acct: [id number] Name: CLINT VILLAR Rep #: [id number] : 1940 83 From: Nora Ward MD PCP: Dr. Cody Carrington MD Status:DIS IN Location: [facility] [place] HH202-0 Providers Date of Admission: 04/16/24 Date of [...] stents placed about 6 weeks ago at [facility]. In the ED, he was found to [...] oral nitrofurantoin b (more content not included)... [facility] 04-14-2024 Note HNO ID: [id number] Author: RADHA LARSEN MD Service: ? Author Type: Physician Type: Progress Notes Filed: 04/14/2024 14:47 Note Text: [facility] ESTABLISHED PATIENT NOTE [...] MED AND SENT (more content not included)... [facility] 04-14-2024 History of Present illness Narrative Images from the original note were not included. [facility] ESTABLISHED PATIENT NOTE PATIENT: Clint Villar (83 year old) PCP: Cody Carrington MD DATE OF SERVICE: 04/14/2024 SUMMARY: Mr. Villar is a 83 year old male who is here for follow up Assessment & Plan Prostate cancer (HCC) Castrate sensitive metastatic prostate cancer On [facility] through oncology Currently XRT PSA 5.5 from [...] DOSE TONIGHT 03/03/[address] LARSEN AND [facility], BUT HAS NOT SEEN THEM YET, [...] 10/21/2023 PRIMARY FOLLOWS CURRENTLY, DUE TO SEE [facility] Arthritis At risk for stroke 10/21/2023 [...] atrial fibrillation (HCC) 06/23/2023 DUE TO SEE [facility] FOR AFIB, PRIMARY FOLLOWS CURRENTLY, DID SEE [facility] ACOSTA X1 APPOINTMENT BUT DID NOT CARE FOR MD SO WILL NOT GO BACK Positive colorectal cancer screening using Cologuard test 01/03/2023 Primary hypertension PRIMARY FOLLOWS Prostate cancer (HCC) 02/13/2024 DR LARSEN AND DR AGUILAR, AT [facility] IN [place] 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 Pt verbalizes understanding. Danielle Aviles LPN [facility] 04-14-2024 Miscellaneous Notes Spoke with pt and [...] 04/23/24. Please call patient with information at [phone] Clare Esposito Pss documented in this encounter [facility] 04-14-2024 Telephone encounter Note No additional labs from id this time. [facility] 04-14-2024 Telephone encounter Note Patient was in [...] 04/23/24. Please call patient with information at [phone] Clare Esposito Pss [facility] 04-06-2024 Telephone encounter Note Patient notified, verbalized understanding. Leila Antonio LPN [facility] 04-06-2024 Miscellaneous Notes Patient notified, verbalized understanding. Leila Antonio LPN No additional labs. Do labs ordered by urology. Patient is wanting to know if there is any other labs that he is needing for his upcoming appointment on 04/23/24. Please call patient back if there is more labs needed. Conchita Boykin LPN documented in this encounter [facility] 04-06-2024 Telephone encounter Note No additional labs. Do labs ordered by urology. [facility] 04-05-2024 Telephone encounter Note Patient is wanting to know if there is any other labs that he is needing for his upcoming appointment on 04/23/24. Please call patient back if there is more labs needed. Conchita Boykin LPN [facility] 03-26-2024 Nurse Note Borrego insertion. Patient prepped using sterile technique. 16 F Coude inserted. Balloon inflated with 10cc sterile water. 130 ml's of urine drained out. Leg bag attached. Patient tolerated well. Eve Luque MA [facility] 03-26-2024 Nurse Note Borrego insertion. Patient prepped using sterile technique. 16 F Coude inserted. Balloon inflated with 10cc sterile water. 130 ml's of urine drained out. Leg bag attached. Patient tolerated well. Eve Luque MA documented in this encounter [facility] 03-26-2024 Note HNO ID: [id number] Author: RADHA LARSEN MD Service: ? Author Type: Physician Type: Progress Notes Filed: 03/26/2024 14:06 Note Text: [facility] ESTABLISHED PATIENT NOTE PATIENT: Clint Villar (83 year old) PCP: Cody Carrington MD DATE OF SERVICE: 03/26/2024 --- SUMMARY: Mr. Villar is a 83 year old male who is here for follow up Assessment AND Plan Prostate cancer (HCC) Castrate sensitive metastatic prostate cancer On [facility] through oncology Currently XRT Continue follow up [...] 10/21/2023 PRIMARY FOLLOWS CURRENTLY, DUE TO SEE [facility] Arthritis At risk for stroke 10/21/2023 D/T AFIB Atrial fibrillation (HCC) COVID-19 virus infection 07/03/2020 Elevated PSA 01/09/2023 DR LARSEN Herpes infection 05/23/2015 Breaks out in sacral area every 2-3 months. 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 [facility] 03-26-2024 History of Present illness Narrative Images from the original note were not included. [facility] ESTABLISHED PATIENT NOTE PATIENT: Clint Villar (83 year old) PCP: Cdoy Carrington MD DATE OF SERVICE: 03/26/2024 SUMMARY: [...] 10/21/2023 PRIMARY FOLLOWS CURRENTLY, DUE TO SEE [facility] Arthritis At risk for stroke 10/21/2023 [...] atrial fibrillation (HCC) 06/23/2023 DUE TO SEE [facility] FOR AFIB, PRIMARY FOLLOWS CURRENTLY, DID SEE [facility] X1 APPOINTMENT BUT DID NOT CARE FOR MD SO WILL NOT GO BACK Positive colorectal cancer screening using Cologuard test 01/03/2023 Primary hypertension PRIMARY FOLLOWS Prostate cancer (HCC) 02/13/2024 DR LARSEN AND DR AGUILAR, AT [facility] IN [place] 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 Author Type: Registered Nurse Type: Progress Notes Filed: 03/23/2024 15:15 Note Text: Written discharge instructions given and reviewed with patient. Patient verbalizes understanding. Encouraged to call with any questions or concerns. Instruction for 4 week phone call follow up appointment given by Dr. Aguilar. [facility] 03-23-2024 History of Present illness Narrative Written discharge instructions given and reviewed with patient. Patient verbalizes understanding. Encouraged to call with any questions or concerns. Instruction for 4 week phone call follow up appointment given by Dr. Aguilar. documented in this encounter [facility] 03-23-2024 History of Present illness Narrative CLINT VILLAR [id number] : 1940 03/23/2024 [facility] Department of Radiation Oncology RADIATION ONCOLOGY - [...] {Object.Sanct_Date}{Object.Sanct_Ti me} Electronically Signed cc: Cody Carrington [address] [place] [address] Johan Payne [phone] [place] [id number] documented in this encounter [facility] 03-23-2024 Note Education (RADTWS) CLINT VILLAR ([id number]) 1940 M Date Time Provider Department 03/23/24 [...] Encounter Status:Closed by LISE DILLON on 03/23/24 [facility] 03-23-2024 Note HNO ID: [id number] Author: RODOLFO AGUILAR MD Service: Radiation Oncology Author Type: Physician Type: Progress Notes Filed: 03/24/2024 14:37 Note Text: CLINT VILLAR [id number] : 1940 03/23/2024 [facility] Department of Radiation Oncology RADIATION ONCOLOGY - [...] me. Staff Physician {Object.Sanct_ID*PnP.NarcisaFLKimberlyn Ansari / {Object.Sanct_Date}{Object.Sanct_Ti id} Electronically Signed cc: Cody Carrington [address] [place] [address] Johan Payne [id number] [place] [id number] [facility] 03-22-2024 Nurse Note Radiation therapist notified this [...] follow up with PCP. Pt. Verbalized understanding. [facility] 03-22-2024 Nurse Note Radiation therapist notified this [...] Pt. Verbalized understanding. documented in this encounter [facility] 03-17-2024 Nurse Note Radiation Therapy - Nursing Note (OTV) PATIENT NAME: Clint Villar PATIENT March 17, 2024 [facility] FACILITY/LOCATION: [facility] NOTE TYPE: retroperitoneal node Subjective Data Pt reports some nausea Additional Data Do you want to see a Stakes Player? No Status: Patient is male Stress Scale: On a scale of 0 to 10, what number best describes how much distress you have experienced in the past week?(0 being no distress and 10 being extreme distress) 6 Social work notified: Pt denied need to see social science instructor at this time. Nursing Assessment Fatigue: moderate; [...] other complaints SIGNED by: Anni Mcnair RN [facility] 03-17-2024 Nurse Note Radiation Therapy - Nursing Note (OTV) PATIENT NAME: Clint Villar PATIENT March 17, 2024 [facility] FACILITY/LOCATION: [facility] NOTE TYPE: retroperitoneal node Subjective Data Pt reports some nausea Additional Data Do you want to see a Stakes Player? No Status: Patient is male Stress Scale: On a scale of 0 to 10, what number best describes how much distress you have experienced in the past week?(0 being no distress and 10 being extreme distress) 6 Social work notified: Pt denied need to see social science instructor at this time. Nursing Assessment Fatigue: moderate; [...] Anni Mcnair RN documented in this encounter [facility] 03-17-2024 Note HNO ID: [id number] Author: RODOLFO AGUILAR MD Service: ? Author [...] radiation treatment as planned. Rodolfo Aguilar MD [facility] 03-17-2024 History of Present illness Narrative Radiation [...] Rodolfo Aguilar MD documented in this encounter [facility] 03-15-2024 Nurse Note Called patient and notified per DIRECTOR OF EMAIL MARKETING Taryn ok for patient to pull own catheter (taught how to do this by this RN) in the morning of 03/26 [address] then to see Dr Larsen afternoon of 03/26 Italo Matthew RN [facility] 03-15-2024 Nurse Note Called patient and notified per DIRECTOR OF EMAIL MARKETING Piccari ok for patient to pull own catheter (taught how to do this by this RN) in the morning of 03/26 [address] then to see Dr Larsen afternoon of 03/26 Italo Matthew RN Patient here for voiding trial. Voided x8 at home and x2 in office. Pvr is 501 ml. New 16 rwandan silicone coude catheter inserted using sterile technique. 10 cc sterile water inflated into balloon. Good urine flow noted. New leg bag attached. Patient tolerated procedure well. Transmission Engineer declined. Italo Matthew RN documented in this encounter [facility] 03-15-2024 Nurse Note Patient here for voiding trial. Voided x8 at home and x2 in office. Pvr is 501 ml. New 16 rwandan silicone coude catheter inserted using sterile technique. 10 cc sterile water inflated into balloon. Good urine flow noted. New leg bag attached. Patient tolerated procedure well. Transmission Engineer declined. Italo Matthew RN [facility] 03-15-2024 Telephone encounter Note Voiding trial pended Pvr > 250 ml = borrego reinsertion Thanks Italo Matthew RN [facility] 03-15-2024 Miscellaneous Notes Voiding trial pended Pvr > 250 ml = borrego reinsertion Thanks Italo Matthew RN documented in this encounter [facility] 03-15-2024 Note HNO ID: [id number] Author: AMA HARDIN RN Service: ? Author [...] uncomfortable. Patient voiced understanding of all instructions. Transmission Engineer offered:Patient declines Ama Hardin RN [facility] 03-15-2024 History of Present illness Narrative Patient [...] uncomfortable. Patient voiced understanding of all instructions. Transmission Engineer offered:Patient declines Ama Hardin RN documented in this encounter [facility] 03-10-2024 Telephone encounter Note Received VM from [...] notified and voiced understanding. Krys Hauser RN [facility] 03-10-2024 Miscellaneous Notes Received VM from patient [...] Krys Hauser RN documented in this encounter [facility] 03-09-2024 Note HNO ID: [id number] Author: RODOLFO AGUILAR MD Service: ? Author [...] radiation treatment as planned. Rodolfo Aguilar MD [facility] 03-09-2024 History of Present illness Narrative Radiation [...] Rodolfo Aguilar MD documented in this encounter [facility] 03-09-2024 Nurse Note Radiation Therapy - Nursing Note (OTV) PATIENT NAME: Clint Villar PATIENT March 09, 2024 [facility] FACILITY/LOCATION: [facility] NOTE TYPE: GENERAL Subjective Data no complaints concerning radiation, had bilateral ureteral stent put in yesterday and now has a borrego cath in for a few day was unable to void post proceedure Additional Data Do you want to see a Stakes Player? No Status: Patient is male Stress Scale: On a scale of 0 to 10, what number best describes how much distress you have experienced in the past week?(0 being no distress and 10 being extreme distress) 2 Social work notified: Pt denied need to see social science instructor at this time. Nursing Assessment Fatigue: none [...] Dysuria: No. SIGNED by: Lise Dillon RN [facility] 03-09-2024 Nurse Note Radiation Therapy - Nursing Note (OTV) PATIENT NAME: Clint Villar PATIENT March 09, 2024 [facility] FACILITY/LOCATION: [facility] NURSING NOTE TYPE: GENERAL Subjective Data no complaints concerning radiation, had bilateral ureteral stent put in yesterday and now has a borrego cath in for a few day was unable to void post proceedure Additional Data Do you want to see a Stakes Player? No Status: Patient is male Stress Scale: On a scale of 0 to 10, what number best describes how much distress you have experienced in the past week?(0 being no distress and 10 being extreme distress) 2 Social work notified: Pt denied need to see social science instructor at this time. Nursing Assessment Fatigue: none [...] Lise Dillon RN documented in this encounter [facility] 03-08-2024 Note HNO ID: [id number] Author: SABRINA MENDOZA RN Service: Nursing Author Type: Registered Nurse Type: Nursing Progress Note Filed: 03/08/2024 13:20 Note Text: Message sent to Dr Larsen at this time regarding the above. [facility] 03-08-2024 Note HNO ID: [id number] Author: SABRINA MENDOZA, RN Service: Nursing Author Type: Registered Nurse Type: Nursing Progress Note Filed: 03/08/2024 13:18 Note Text: Patient attempted to urinate several times with no success, bladdar scanned for >523cc. [facility] 03-08-2024 Telephone encounter Note Patient scheduled, will notify upon discharge. [facility] 03-08-2024 Miscellaneous Notes Patient scheduled, will notify upon discharge. Surgery today Follow up with CJL 3 weeks with KUB, psa, and bmp documented in this encounter [facility] 03-08-2024 Telephone encounter Note Surgery today Follow up with CJL 3 weeks with KUB, psa, and bmp [facility] 03-08-2024 Note HNO ID: [id number] Author: RADHA JUNIOR AA Service: ? Author Type: Vegetable Inspector Type: Anesthesia Procedure Notes Filed: 03/08/2024 08:53 [...] March 08, 2024 TIME: 8:51 AM CSN: [id number] [facility] 03-05-2024 Note HNO ID: [id number] Author: JOSE NIETO RN Service: ? Author [...] directed. Bring copy of Living Will/Power of Environmental Journalist. Do not smoke or chew. If you [...] the Surgery Center. UPON ARRIVAL: Access to [facility] is located on [address] [place] [address]. [employer] parking is available for your convenience from [...] time are permitted in your preprocedure room. [facility] 03-05-2024 Note HNO ID: [id number] Author: ALEJANDRO WHITE APRN.CNP Service: ? Author [...] instructions for the morning of your procedure. [facility] 03-02-2024 History of Present illness Narrative Radiation Therapy - Patient Education Note PATIENT NAME: Clint Villar PATIENT March 02, 2024 [facility] FACILITY/LOCATION: [facility] READINESS TO LEARN Cognitive Ability: Alert and [...] need for social work, van service, and clinic nurse. Patient has an Onbody or Implanted device: No Signed by: Lise Dillon RN documented in this encounter [facility] 03-02-2024 Note HNO ID: [id number] Author: LISE DILLON RN Service: ? Author Type: Registered Nurse Type: Progress Notes Filed: 03/02/2024 14:15 Note Text: Radiation Therapy - Patient Education Note PATIENT NAME: Clint Villar PATIENT March 02, 2024 [facility] FACILITY/LOCATION: [facility] READINESS TO LEARN Cognitive Ability: Alert and [...] need for social work, van service, and clinic nurse. Patient has an Onbody or Implanted device: No Signed by: Lise Dillon RN [facility] 03-02-2024 History of Present illness Narrative CLINT IVLLAR [id number] 03/02/2024 [facility] Department of Radiation Oncology Treatment Planning Note [...] M.D. :32 PM documented in this encounter [facility] 03-02-2024 History of Present illness Narrative CLINT VILLAR [id number] 03/02/2024 [facility] Department of Radiation Oncology [facility] RADIATION ONCOLOGY SIMULATION NOTE DATE OF SIMULATION: [...] M.D./may 49:39 AM documented in this encounter [facility] 03-02-2024 Note HNO ID: [id number] Author: RODOLFO AGUILAR MD Service: Radiation Oncology Author Type: Physician Type: Progress Notes Filed: 03/03/2024 09:39 Note Text: CLINT VILLAR [id number] 03/02/2024 [facility] Department of Radiation Oncology [facility] RADIATION ONCOLOGY SIMULATION NOTE DATE OF SIMULATION: [...] Electronically Signed Rodolfo Aguilar M.D./may 49:[address] [facility] 03-02-2024 Note HNO ID: [id number] Author: RODOLFO AUGILAR MD Service: Radiation Oncology Author Type: Physician Type: Progress Notes Filed: 03/03/2024 14:32 Note Text: CLINT VILLAR [id number] 03/02/2024 [facility] Department of Radiation Oncology Treatment Planning Note [...] Electronically Signed Rodolfo Aguilar M.D. 42:[address] [facility] 03-01-2024 Telephone encounter Note EMERGENCY ROOM CALL [...] with Dr. Payne 04/21/24 Bouchra Fortune RN [facility] Work Phone: 03-01-2024 Miscellaneous Notes EMERGENCY ROOM [...] 03/09/[address] Payne 04/21/24 oBuchra Fortune RN documented in this encounter [facility] 03-01-2024 Nurse Note Radiation Therapy - Nursing Note (Consult) PATIENT NAME: Clint Villar PATIENT March 01, 2024 [facility] FACILITY/LOCATION: [facility] Chief Complaint: consult Reason for visit: Consult. Referring physician: Internal provider Dr Payne Subjective Data: no complaints Additional Data Do you want to see a Stakes Player? No Are you interested in information about fertility? No Status: Patient is male Stress Scale: On a scale of 0 to 10, what number best describes how much distress you have experienced in the past week?(0 being no distress and 10 being extreme distress) 3 Social work notified: no SIGNED by: Anni Mcnair RN [facility] 03-01-2024 Nurse Note Radiation Therapy - Nursing Note (Consult) PATIENT NAME: Clint Villar PATIENT March 01, 2024 [facility] FACILITY/LOCATION: [facility] Chief Complaint: consult Reason for visit: Consult. Referring physician: Internal provider Dr Payne Subjective Data: no complaints Additional Data Do you want to see a Stakes Player? No Are you interested in information about fertility? No Status: Patient is male Stress Scale: On a scale of 0 to 10, what number best describes how much distress you have experienced in the past week?(0 being no distress and 10 being extreme distress) 3 Social work notified: no SIGNED by: Anni Mcnair RN documented in this encounter [facility] 03-01-2024 History of Present illness Narrative Radiation [...] biopsy on 01/26/24 showed prostatic adenocarcinoma with [place] score 8 (4+4). Bone scan on 02/20/24 [...] insertion with Dr. Radha Larsen this coming [place] the . He [...] that other personnel such as radiation therapists, outside sales representative insurance, and physicists will participate in planning and delivery of radiation treatment. Permanent tattoo luz will be placed to aid with positioning for daily treatment and the patient consented. Patient will have a simulation procedure. Thank you very much for allowing us to participate in his care. Signed by: Rodolfo Aguilar MD cc: Cody Carrington [address] [place] [id number] Johan Payne [id number] [place] [phone] documented in this encounter [facility] 03-01-2024 Note HNO ID: [id number] Author: RODOLFO AGUILAR MD Service: ? Author [...] Age of Onset (more content not included)... [facility] 03-01-2024 Instructions Devin Cortes MD - 03/01/2024 9:44 AM EDT Please hold your Eliquis 2 days before your procedure and restart the day after, documented in this encounter [facility] 03-01-2024 Note HNO ID: [id number] Author: DEVIN CORTES MD Service: ? Author Type: Physician Type: Progress Notes Filed: 03/01/2024 09:46 Note Text: [facility] UROLOGY - VIRTUAL [...] progressive retroperitoneal lymphadenopathy. No obstructing calculus identified. Membership Sales Manager: PSCB Transcribe Date/Time: Feb 27 2024 1:09P Dictated by : SRUTHI HO MD This examination was interpreted and the report reviewed and electronically signed by: SRUTHI HO MD on Feb 27 2024 1:39PM EST Results-Findings * * *Final Report* * * DATE OF EXAM: Feb 27 2024 12:35PM [facility] 0531 - CT ABD/PEL WO IVCON [...] in size from the previous study. [employer] service representative lymph nodes: * Retrocaval lymph node (2:36) [...] Date Allergic contact (more content not included)... [facility] 03-01-2024 History of Present illness Narrative Images from the original note were not included. [facility] UROLOGY - VIRTUAL [...] progressive retroperitoneal lymphadenopathy. No obstructing calculus identified. Membership Sales Manager: PSCB Transcribe Date/Time: Feb 27 2024 1:09P Dictated by : SRUTHI HO MD This examination was interpreted and the report reviewed and electronically signed by: SRUTHI HO MD on Feb 27 2024 1:39PM EST Results-Findings * * *Final Report* * * DATE OF EXAM: Feb 27 2024 12:35PM [facility] 0531 - CT ABD/PEL WO IVCON [...] in size from the previous study. [employer] service representative lymph nodes: * Retrocaval lymph node (2:36) [...] the . I reached out to his in tube conversion technician Dr. Barrera who advised me to tell him to stop his Eliquis 2 days before his procedure and restart the day after. He is understanding. I spent a total of 30 minutes on the date of the service which included preparing to see the patient, [id number] patient care, completing clinical documentation, obtaining and/or reviewing separately obtained history, counseling and educating the patient/family/caregiver, communicating with other HCPs (not separately reported), and communicating results to the patient/family/caregiver. It required patient-provider interaction for the medical decision making as documented above. Devin Cortes MD documented in this encounter [facility] 03-01-2024 Telephone encounter Note I spoke with patient this morning, he is scheduled for 03/08/2024. He is aware of the date, details and everything. Thank you, Edie Chandler [facility] 03-01-2024 Miscellaneous Notes I spoke with patient this morning, he is scheduled for 03/08/2024. He is aware of the date, details and everything. Thank you, Edie Chandler Please try to add as soon as possible Surgery: Cystoscopy and pyelograms, bilateral ureteral stent insertion Duration: 1 hour(s) Surgeon: Radha Larsen MD Location: [facility] Anesthesia: General Fluoroscopy: Yes Special equipment: none PACC visit: No Presurgical testing: no additional Clearance: No Bowel prep: No Blood thinners to stop: yes documented in this encounter [facility] 03-01-2024 Telephone encounter Note Please try to add as soon as possible Surgery: Cystoscopy and pyelograms, bilateral ureteral stent insertion Duration: 1 hour(s) Surgeon: Radha Larsen MD Location: [facility] Anesthesia: General Fluoroscopy: Yes Special equipment: none PACC visit: No Presurgical testing: no additional Clearance: No Bowel prep: No Blood thinners to stop: yes [facility] Work Phone: 02-27-2024 History of Present illness [...] PATIENT PRESENTS WITH AN IMPLANTABLE OR ATTACHED ELECTROPLATING TECHNICIAN: No RADIOLOGY DEPARTMENT: CT; Exam(s) Completed: Abdomen/Pelvis PERIPHERAL IV DATA: Not applicable SIGNED BY: SABRINA Valadez, RT(CT) February 27, 2024 12:28 PM documented in this encounter [facility] 02-27-2024 History of Present illness Narrative Images from the original note were not included. [facility] UROLOGY ESTABLISHED PATIENT [...] Prostate, left apex, biopsy: - Prostatic adenocarcinoma, [place] score 4+3 = 7 with perineural invasion [...] left lateral mid, biopsy: - Prostatic adenocarcinoma, [place] score 3+4 = 7 with perineural invasion (grade group 2), involving 1 core (10 mm, 100%). - Extraprostatic extension is present. - Large cribriform pattern is present. F. Prostate, left lateral base, biopsy: - Prostatic adenocarcinoma, [place] score 4+3 = 7 with perineural invasion (grade group 3), involving 1 core (7 mm, 58%). - Large cribriform pattern is present. G. Prostate, right apex, biopsy: - Prostatic adenocarcinoma, [place] score 4+4 = 8 with perineural invasion (grade group 4), involving 1 core (18 mm, 90%). - Large cribriform pattern is present. H. Prostate, right mid, biopsy: - Prostatic adenocarcinoma, [place] score 4+3 = 7 with perineural invasion (grade group 3), involving 1 core (18 mm, 100%). - Large cribriform pattern is present. I. Prostate, right base, biopsy: - Prostatic adenocarcinoma, [place] score 4+4 = 8 with perineural invasion [...] Cribriform pattern 4: Present Intraductal carcinoma: Absent Space Systems Operations Superintendent tumor block to use for additional studies: L1 Diagnosis Comment Selected slides were shown at consensus conference on 01/28/2024 and the attendees concurred with the above diagnosis. Gross Description A. Prostate, Left, [place], Biopsy Received in formalin is one piece [...] in one cassette. D. Prostate, Left, Lateral [place] , Biopsy Received in formalin is one [...] submitted in one cassette. G. Prostate, Right, [place], Biopsy Received in formalin is one fragmented [...] in one cassette. J. Prostate, Right, Lateral [place], Biopsy Received in formalin is one fragmented [...] in one cassette. Gross examination performed at [place] [id number] CLIA#[id number] 01/27/24 12:19 PM Clinical History Elevated PSA Performing Lab Diagnostic interpretation performed at [place] [address] CLIA# [id number] Mechanical Systems Designer: Ramya Veras M.D. URINE POC pH, Urine Date Value Ref Range Status 02/26/2024 6.5 <8.5 Final Specific [place], Ur Date Value Ref Range Status 02/26/2024 [...] days Devin Cortes M.D, MS Associate Staff [facility] [place] [facility] documented in this encounter [facility] 02-27-2024 Nurse Note Pt here for injection of Eligard. Given SQ in LQ. Pt tolerated well. For all other information regarding today, see today's OV note with Dr Payne. Pt observed for 15 min for signs and symptoms of adverse reaction. None noted. Kathia Del Angel LPN [facility] 02-27-2024 Nurse Note Pt here for injection of Eligard. Given SQ in LQ. Pt tolerated well. For all other information regarding today, see today's OV note with Dr Payne. Pt observed for 15 min for signs and symptoms of adverse reaction. None noted. Kathia Del Angel LPN documented in this encounter [facility] 02-27-2024 Note HNO ID: [id number] Author: JOHAN PAYNE MD Service: ? Author [...] which included preparing to see the patient, [id number] patient care, completing clinical documentation, obtaining and/or revi (more content not included)... [facility] 02-27-2024 History of Present illness Narrative (Elements [...] which included preparing to see the patient, [id number] patient care, completing clinical documentation, obtaining and/or reviewing separately obtained history, counseling and educating the patient/family/caregiver, ordering medications, tests, or procedures, communicating with other HCPs (not separately reported), independently interpreting results (not separately reported), and communicating results to the patient/family/caregiver. Electronically Signed: Johan Payne MD February 27, 2024 documented in this encounter [facility] 02-26-2024 History of Present illness Narrative This note was created using [employer] On[employer]. Subjective Patient presents with: Fatigue Immunizations: Flu [...] Cody Carrington MD documented in this encounter [facility] 02-26-2024 Telephone encounter Note Called placed to pt this date to discuss paperwork needs. Voicemail left for pt this date with direct call back number. NATE Bocanegra [facility] 02-26-2024 Miscellaneous Notes Called placed to pt this date to discuss paperwork needs. Voicemail left for pt this date with direct call back number. NATE Bocanegra Patient called requesting a note to return to work and FMLA paperwork Patient can be reached at [phone] Please advise documented in this encounter [facility] 02-25-2024 Telephone encounter Note Patient called requesting a note to return to work and FMLA paperwork Patient can be reached at [phone] Please advise [facility] Work Phone: 02-20-2024 Telephone encounter Note The patient is active with [employer] along with Medicare A & B. The [...] anything else I could assist them with. [facility] 02-20-2024 Miscellaneous Notes The patient is active with [employer] along with Medicare A & B. The [...] assist them with. documented in this encounter [facility] 02-20-2024 History of Present illness Narrative RADIOLOGY [...] PATIENT PRESENTS WITH AN IMPLANTABLE OR ATTACHED ELECTROPLATING TECHNICIAN: n/a CREATININE: Creatinine Date Value Ref Range [...] 12:32 PATIENT DISCHARGED TO: Ambulatory patient, left [place] department area. A Diagnostic radioactive procedure has taken place, with no further precautions necessary other than routine body substance precautions. More information regarding radiation safety can be found using this link: [email or web address] SIGNATURE: RT Aldo(Miriam) PATIENT NAME: Clint Villar DATE: February 20, 2024 TIME: 12:36 PM PAGER/CONTACT #: documented in this encounter [facility] 02-13-2024 History of Present illness Narrative (Elements [...] which included preparing to see the patient, [id number] patient care, completing clinical documentation, obtaining and/or reviewing separately obtained history, counseling and educating the patient/family/caregiver, ordering medications, tests, or procedures, communicating with other HCPs (not separately reported), independently interpreting results (not separately reported), and communicating results to the patient/family/caregiver. Electronically Signed: Johan Payne MD February 13, 2024 documented in this encounter [facility] 01-26-2024 Instructions Devin Cortes MD - 01/26/2024 [...] and 4:30 PM call our office: at [phone] [place] [facility] [phone] [place] [facility] After 5 PM and on weekends: Call [phone] or [phone] and ask for the urologist telephone order dispatcher. The doctor will need to know that you have had a prostate biopsy and what symptoms you are having. documented in this encounter [facility] 01-26-2024 History of Present illness Narrative Images from the original note were not included. [facility] [place] UROLOGY OUTPATIENT PROCEDURE NOTE UROL [place] [facility] [...] path Devin Cortes MD, MS Associate Staff [facility] documented in this encounter [facility] 01-14-2024 Telephone encounter Note Spoke with patient's spouse, advising below, and she stated understanding. Shanthi Santillan [facility] 01-14-2024 Miscellaneous Notes Spoke with patient's spouse, advising below, and she stated understanding. Shanthi Santillan Dr. Payne is ok with follow up on 02/13/24. Chelsea Fortune, RN Patient called to inform office that [...] today. Please advise. documented in this encounter [facility] 01-13-2024 Telephone encounter Note Patient has been [...] Please advise. Thank you. Leila Antonio LPN. [facility] 01-13-2024 Miscellaneous Notes Patient has been identified [...] Leila Antonio LPN. documented in this encounter [facility] 01-13-[address] Payne is ok with follow up on 02/13/24. Chelsea Fortune RN [facility] Work Phone: 01-12-2024 Telephone encounter Note Patient [...] is out of office today. Please advise. [facility] Work Phone: 01-02-2024 History of Present illness [...] which included preparing to see the patient, [id number] patient care, completing clinical documentation, obtaining and/or reviewing separately obtained history, counseling and educating the patient/family/caregiver, ordering medications, tests, or procedures, communicating with other HCPs (not separately reported), independently interpreting results (not separately reported), and communicating results to the patient/family/caregiver. Electronically Signed: Johan Payne MD January 02, 2024 1:05 PM documented in this encounter [facility] 12-31-2023 History of Present illness Narrative Images from the original note were not included. [facility] UROLOGY CLINIC ESTABLISHED PATIENT NOTE [facility]OL [facility] PATIENT: Clint Villar (83 year old) [...] is agreeable. Will obtain clearance from his in tube conversion technician to discontinue Eliquis prior to procedure. -Patient [...] Cortes MD, MS Associate Staff [facility] Department of Urology [facility] documented in this encounter [facility] 12-31-2023 Nurse Note Post void bladder scan completed. 182 ml residual remaining. Results reported to Dr. Cortes [facility] 12-31-2023 Nurse Note Post void bladder scan completed. 182 ml residual remaining. Results reported to Dr. Cortes documented in this encounter [facility] 12-18-2023 History and physical note HISTORY AND [...] DATE: December 18, 2023 TIME: 12:20 PM [facility] 12-18-2023 History and physical note HISTORY AND [...] entered by the nurse and reviewed by id Nursing Notes: Danielle Kaiser MA 12/08/2023 1:26 [...] TIME: 12:20 PM documented in this encounter [facility] 12-18-2023 Nurse Note pt arrived to phase 2 awake on left side. at bedside. Dr Wen spoke with pt and regarding findings and recommendations. Pt and verbalize understanding. SR up x 2, call light in reach. Jaky Fisher RN [facility] 12-18-2023 Nurse Note pt arrived to phase 2 awake on left side. at bedside. Dr Wen spoke with pt and regarding findings and recommendations. Pt and verbalize understanding. SR up x 2, call light in reach. Jaky Fisher RN documented in this encounter [facility] 12-18-2023 Note Formatting of this n ote might be different from the original. The patient received a copy of Colonoscopy discharge instructions that contain information for how to contact the physician who performed the procedure and when to seek medical care. [facility] 12-18-2023 Miscellaneous Notes The patient received a copy of Colonoscopy discharge instructions that contain information for how to contact the physician who performed the procedure and when to seek medical care. documented in this encounter [facility] 12-10-2023 Telephone encounter Note Called and spoke [...] sent through for 90 with 3 refills. [facility] 12-10-2023 Miscellaneous Notes Called and spoke with [...] 2023 8:18 AM documented in this encounter [facility] 12-10-2023 Telephone encounter Note Proscar was just filled by Robert Toscano yesterday Leela Drake APRN.CNP [facility] 12-10-2023 Telephone encounter Note Prescription Refill Information [...] Chelsea Walters December 10, 2023 8:18 AM [facility] 12-09-2023 Telephone encounter Note Spoke with patient and scheduled with Dr. Payne per patient request. Shanthi Tyrell [facility] 12-09-2023 Miscellaneous Notes Spoke with patient and scheduled with Dr. Payne per patient request. Shanthi Santillan No, we can schedule next new either me or Dr. Payne. Wait to schedule until patient has been seen by general surgery/has biopsy? Angella Bassett LPN Please review and advise. Consult to general surgery as given to quahogger at desk. Routing consult to oncology to psr carlie Abbott MA ASSESSMENT/PLAN: 1. Rectal mass - ICD9: 787.99, ICD10: K62.89 I called Mr. Villar and we agreed to discuss findings on CT colonography concerning for metastatic rectal malignancy. Patient indicated understanding and willingness to follow recommendations. - CONSULT TO GENERAL SURGERY - CONSULT TO HEMATOLOGY/ONCOLOGY Cody Carrington MD documented in this encounter [facility] 12-08-2023 Telephone encounter Note No, we can schedule next new either me or Dr. Payne. [facility] Work Phone: 12-08-2023 Telephone encounter Note 12/18/[address] Wen patient to be off Eliquis 5 days prior to scopes. Left voicemail for patient stating his colon that was on 12/11 needed to be rescheduled due to this reason Danna Lagos Vehicle Leasing And Rental Manager [facility] 12-08-2023 Miscellaneous Notes 12/18/[address] Wen patient to be off Eliquis 5 days prior to scopes. Left voicemail for patient stating his colon that was on 8 needed to be rescheduled due to this reason Danna Lagos Vehicle Leasing And Rental Manager documented in this encounter [facility] 12-08-2023 History of Present illness Narrative HISTORY AND PHYSICAL Clint Salmeron Jian 1940 REFERRING PHYSICIAN: Cody Carringtno MD CHIEF COMPLAINT: Consult and rectal mass [...] entered by the nurse and reviewed by id Nursing Notes: Danielle Kaiser MA 12/08/2023 1:26 [...] Wen III, MD documented in this encounter [facility] 12-08-2023 Nurse Note REVIEW OF SYSTEMS: General: [...] screening? N/A Last Colonoscopy: Danielle Kaiser MA [facility] 12-08-2023 Nurse Note REVIEW OF SYSTEMS: General: [...] Danielle Kaiser MA documented in this encounter [facility] 12-08-2023 Telephone encounter Note CJ: 02/04/23 NOV: None Scheduled Patient phones requesting refills as follows: Requested Prescriptions Pending Prescriptions Disp Refills finasteride (PROSCAR) 5 mg tablet [Pharmacy Med Name: Finasteride 5 MG Oral Tablet] 90 tablet 0 Sig: Take 1 tablet by mouth once daily Please review and advise. Chris Mares LPN [facility] 12-08-2023 Miscellaneous Notes CJ: 02/04/23 NOV: None Scheduled Patient phones requesting refills as follows: Requested Prescriptions Pending Prescriptions Disp Refills finasteride (PROSCAR) 5 mg tablet [Pharmacy Med Name: Finasteride 5 MG Oral Tablet] 90 tablet 0 Sig: Take 1 tablet by mouth once daily Please review and advise. Chris Mares LPN documented in this encounter [facility] 12-05-2023 Telephone encounter Note Wait to schedule until patient has been seen by general surgery/has biopsy? Angella Bassett LPN [facility] 12-05-2023 Telephone encounter Note Please review and advise. [facility] Work Phone: 12-04-2023 Telephone encounter Note Consult to general surgery as given to quahogger at desk. Routing consult to oncology to psr pool Lucia Abbott MA [facility] 12-04-2023 Telephone encounter Note ASSESSMENT/PLAN: 1. Rectal mass - ICD9: 787.99, ICD10: K62.89 I called Mr. Villar and we agreed to discuss findings on CT colonography concerning for metastatic rectal malignancy. Patient indicated understanding and willingness to follow recommendations. - CONSULT TO GENERAL SURGERY - CONSULT TO HEMATOLOGY/ONCOLOGY Cody Carrington MD [facility] 12-04-2023 History of Present illness Narrative Radiology [...] PATIENT PRESENTS WITH AN IMPLANTABLE OR ATTACHED ELECTROPLATING TECHNICIAN: No RADIOLOGY DEPARTMENT: CT; Exam(s) Completed: Abdomen/Pelvis PERIPHERAL IV DATA: Not applicable SIGNED BY: FADIA Hampton December 04, 2023 8:43 AM documented in this encounter [facility] 10-27-2023 Telephone encounter Note Called pt and reviewed. [facility] 10-27-2023 Miscellaneous Notes Called pt and reviewed. My chart message to pt. See visit yesterday. Procedure not done in [facility]. PA may be needed. Please inform the patient. Set up in appropriate [facility] facility. ASSESSMENT/PLAN: 1. Positive colorectal cancer screening using Cologuard test - ICD9: 787.7, ICD10: R19.5 (primary diagnosis) 2. Constipation, unspecified constipation type - ICD9: 564.00, ICD10: K59.00 - CT COLONOGRAPHY SCREENING WO IVCON Cody Carrington MD documented in this encounter [facility] 10-27-2023 Telephone encounter Note My chart message to pt. [facility] 10-25-2023 Telephone encounter Note See visit yesterday. Procedure not done in [facility]. PA may be needed. Please inform the patient. Set up in appropriate [facility] facility. ASSESSMENT/PLAN: 1. Positive colorectal cancer screening using Cologuard test - ICD9: 787.7, ICD10: R19.5 (primary diagnosis) 2. Constipation, unspecified constipation type - ICD9: 564.00, ICD10: K59.00 - [facility] Cody Carrington MD [facility] 10-24-2023 History of Present illness Narrative This note was created using [employer] Onliner[employer]. Subjective Patient presents with: Yearly Exam Clint Villar is a 83 year old male. He was doing well, and had no new concerns. His atrial fibrillation was paroxysmal and controlled. He had 2 consultations for advanced treatment of atrial fibrillation, one with Dr. Garcia in [place], and most recently with Dr. Barrera in [facility]. He decided to continue with current management. He sees Dr. Sruthi Larkin for primary cardiology here in [place] and LUPE Hunt for urology. High PSA [...] need PA from his insurance. I called [facility] CT scan department and they do not [...] Cody Carrington MD documented in this encounter [facility] 10-22-2023 History of Present illness Narrative PRIMARY CARE PHYSICIAN: Cody Carrington [address] [place] [address] REFERRING PHYSICIAN: Sruthi Larkin MD [address] [facility] [address] Patient Care Team: Cody Carrington MD as PCP - General (Internal Medicine) Sruthi Larkin as Specialty Drum Drier (Cardiology) CHIEF COMPLAINT: Evaluation of arrhythmia HISTORY OF PRESENT ILLNESS: Mr. Villar is a 83 year old male who presents today for evaluation of arrhythmia, history of atrial fibrillation, referred by Dr. Larkin of [facility]. Mr. Villar states he was diagnosed with the atrial fibrillation in early 2023. Primary care physician found him to be in atrial fibrillation, sent him to [place] [facility]. Admitted to hospital. Treated with medications [...] Sinus bradycardia 45 bpm; normal conduction intervals (DE 178 ms, QRS 88 ms); QTc 406 [...] continue to follow-up with Dr. Larkin of [facility]. I would be happy to [...] 4 - Moderate documented in this encounter [facility] 10-22-2023 Note HNO ID: [id number] Author: CHRIS BARRERA MD Service: ? Author Type: Physician Type: Progress Notes Filed: 10/22/2023 12:11 Note Text: PRIMARY CARE PHYSICIAN: Cody Carrington [address] [place] [address] REFERRING PHYSICIAN: Sruthi [facility]arkin MD [address] [facility] [address] Patient Care Team: Cody Carrington MD as PCP - General (Internal Medicine) Sruthi Larkin as Specialty Drum Drier (Cardiology) CHIEF COMPLAINT: Evaluation of arrhythmia HISTORY OF PRESENT ILLNESS: Mr. Villar is a 83 year old male who presents today for evaluation of arrhythmia, history of atrial fibrillation, referred by Dr. Larkin of [facility]. Mr. Villar states he was diagnosed with the atrial fibrillation in early 2023. Primary care physician found him to be in atrial fibrillation, sent him to [place] ER. Admitted to hospital. Treated with medications [...] for focal weaknes (more content not included)... [facility] 10-22-2023 Nurse Note Patient has no cardiac complaints today. [facility] 10-22-2023 Nurse Note Patient has no cardiac complaints today. documented in this encounter [facility] 10-10-2023 Telephone encounter Note CJ 02/04/2023 NOV none scheduled Patient requesting refills as follows: Requested Prescriptions Pending Prescriptions Disp Refills finasteride (PROSCAR) 5 mg tablet [Pharmacy Med Name: Finasteride 5 MG Oral Tablet] 90 tablet 0 Sig: Take 1 tablet by mouth once daily Please review and advise. Evi Conteh RN [facility] 10-10-2023 Miscellaneous Notes CJ 02/04/2023 NOV none scheduled Patient requesting refills as follows: Requested Prescriptions Pending Prescriptions Disp Refills finasteride (PROSCAR) 5 mg tablet [Pharmacy Med Name: Finasteride 5 MG Oral Tablet] 90 tablet 0 Sig: Take 1 tablet by mouth once daily Please review and advise. Evi Conteh RN documented in this encounter [facility] 09-24-2023 Telephone encounter Note This is a patient who sees Dr. Sruthi cao in [place] and Dr. Larkin would like this patient [...] appointment in October which is randall Anaya [facility] Work Phone: 09-24-2023 Miscellaneous Notes This is a patient who sees Dr. Sruthi cao in [place] and Dr. Larkin would like this patient [...] is randall Anaya documented in this encounter [facility] 07-24-2023 History of Present illness Narrative This note was created using [employer]. Subjective Clint Villar is a 83 year old male. He was doing well, and saw cardiology in [place]. Cardiology consultation report was not received. No [...] Cody Carrington MD documented in this encounter [facility] 06-23-2023 Instructions Cody Carrington MD - 06/23/2023 3:25 PM EST BLOOD WORK ORDERED. documented in this encounter [facility] 06-23-2023 History of Present illness Narrative This note was created using [employer]. Subjective Patient presents with: [employer] F/U Clint Villar is a 82 year [...] TABLET - CONSULT TO CARDIOLOGY. 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 Referral ordered. 2. Primary hypertension - ICD9: 401.9, ICD10: I10 - Controlled - Continue current medications 3. Acquired hypothyroidism - ICD9: 244.9, ICD10: E03.9 - continue current dose of Synthroid - LEVOTHYROXINE 112 MCG TABLET Cody Carringtno MD documented in this encounter [facility] 06-17-2023 Discharge summary Note Date/Time June 16, 2023 3:57pm [facility] Medical Records Department [address] [place] [address] Emergency Department Summary 06/16/23 MR#: [id number] Acct: [id number] Name: CLINT VILLAR Rep #:[id number] : 1940 82 From: Zoë Sparks DO PCP: Dr. Cody Carrington MD Status:A DM HAIR Location: [place] [address] HPI History of Present Illness Chief Complaint: [...] (Auto) 69.4 Lymph % (Auto) 16.6 L Stevens % (Auto) 13.0 H Eos % (Auto) [...] with RVR Disposition Disposition: Acute Care Hospital [facility] What to do if you have Problems For any increased pain, shortness of breath, bleeding, nausea or vomiting, chestpain, or any unexpected problems, contact your Primary Care Provider. Call [facility] ([phone]) or report to the closest Emergency Room. Call 911 if necessary. 06/16/23 2340 <Electronically signed by Zoë Sparks DO> Cosigner Signature (if applicable): CC: Dr. Cody Carrington MD ~ Signed [facility] Work Phone: 1(387) 264-395102-12-2024 History and physical note Author Lor Aguilar [facility] June 16, 2023 5:23pm Note Date/Time June 16, 2023 5:01pm [facility] Medical Records Department [address] [place] [address] H&P Exam - Hospitalist 06/16/231651 MR#: [id number] Acct: [id number] Name: CLINT VILLAR Rep #:[id number] : 1940 82 From: Lor Aguilar DO PCP: Dr. Cody Carrington MD Status:A DM HAIR Location: [place] [id number]- 1 HPI - General General Date of Admission: 06/16/23 Date of Service: 06/16/23 Chief Complaint: New onset Afib with RVR HPI Narrative CLINT VILLAR, is a 82 M who presented to the emergency department [facility] on 06/16/2023 complaining of lightheadedness. The [...] for any acute findings upon my review. [facility] Medical History (Updated 06/16/23 @ 17:18 by [...] (Auto) 69.4, Lymph % (Auto) 16.6 L, Stevens % (Auto) 13.0 H, Eos % (Auto) [...] on admission Charges/Coding Visit Charges Inpatient E&M: 47777 Init Hosp L2 06/16/23 1723 <Electronically signed by Lor Aguilar DO> Cosigner Signature (if applicable): CC: Dr. Lor Aguilar DO; Dr. Cody Carrington MD~ Signed [facility] Work Phone: 1(321) 984-111302-12-2024 History and physical note Author Lor Aguilar [facility] June 16, 2023 5:23pm Note Date/Time June 16, 2023 5:01pm [facility] Medical Records Department [address] [place] [address] H&P Exam - Hospitalist 06/16/23 1652 MR#: [id number] Acct: [id number] Name: CLINT VILLAR Rep #:[id number] : 1940 82 From: Lor Aguilar DO PCP: Dr. Cody Carrington MD Status:A DM HAIR Location: [place] [id number]- 1 HPI - General General Date of Admission: 06/16/23 Date of Service: 06/16/23 Chief Complaint: New onset Afib with RVR HPI Narrative CLINT VILLAR, is a 82 M who presented to the emergency department [facility] on 06/16/2023 complaining of lightheadedness. The [...] for any acute findings upon my review. [facility] Medical History (Updated 06/16/23 @ 17:18 by [...] (Auto) 69.4, Lymph % (Auto) 16.6 L, Stevens % (Auto) 13.0 H, Eos % (Auto) [...] on admission Charges/Coding Visit Charges Inpatient E&M: 01669 Init Hosp L2 06/16/23 1723 <Electronically signed by Lor Aguilar DO> Cosigner Signature (if applicable): CC: Dr. Lor Aguilar DO; Dr. Cody Carrington MD~ Signed [facility] Work Phone: 1(395) 179-202602-12-2024 Instructions* Patient Instructions* Cody Carrington MD - 06/16/2023 3:16 PM EST PROCEED TO THE ER FOR EMERGENT EVALUATION OF YOUR HEART AND LOW BLOOD PRESSURE. documented [facility] this encounterW[facility] History of Present illness Narrative* Cody Carrington MD - 06/16/2023 2:59 PM EST This note was created using [employer]. Subjective Clint Villar is a 82 year [...] to Dr. Omalley. Patient will proceed to [facility] ER directly. Cody Carrington MD documented in this encounterWright-[facility]02-12-2024 Miscellaneous Notes* Telephone Encounter - Kristofer Matthew [...] has NOT been evaluated by doctor (or DIRECTOR OF EMAIL MARKETING/PA) for this (Exception: Dizziness caused by heat [...] VERTIGO: No 4. SEVERITY: Mild to moderate. Wylie like would faint a couple times. Not [...] 11. : N/A Protocols used: Dizziness - [id number] documented in this encounterW[facility]01-04-2024 History of Present illness Narrative* Cherie Joshua [...] 08, 2023 1:57 PM documented in this [facility]10-09-2023 Miscellaneous Notes* Telephone Encounter - Tiffany Paigely [...] BETSY Toscano MT, PA-C documented in this encounterWright-Pat[facility] Center10-04-2023 Miscellaneous Notes* Telephone Encounter - Leila Antonio LPN - 02/05/2023 8:14 AM EDT RX for Hydroxyzine was written 01/03/2023 for 90 tablets, 3 refills sent to [facility]/[place], will call pharmacy. Leila Antonio LPN * Telephone Encounter - Sergio Mendoza - 02/05/2023 8:09 AM EDT Please refill hydroxyzine HCI 25 mg sent to [facility] in [place]. Thank you! documented in this encounterWright-[facility] Center10-03-2023 History of Present illness Narrative* Robert Toscano PA-C - 02/04/2023 8:51 AM EDT Images from the original note were not included. [facility] [...] with Friends and Family: Patient refused Attends Alevism Services: Patient refused Active Member of Clubs [...] 36.7 C (98 F), temperature source Temporal, .2 cm (5' 7), weight 98.7 kg (217 [...] Plan: Appointment with Robert. documented in this encounterWright-[facility] Center10-03-2023 Instructions* Patient Instructions* Robert Toscano PA-C - 02/04/2023 8:50 AM EDT IsoPSA today documented in this encounterWright-Pat[facility] Center09-07-2023 Miscellaneous Notes* Telephone Encounter - Urvashi Coffey [...] sooner appointment with urology. documented in this encounterWright-Patterson [facility] Center09-01-2023 History of Present illness Narrative* Cody Carrington MD - 01/03/2023 9:13 AM EDT This note was created using [employer]. Subjective Clint Villar is a 82 year [...] TSH 0.270 - 4.200 mIU/L 5.860 (H) [facility] OVER 40 01/03/2023 INCOMPLETE [...] time. Cody Carrington MD documented in this encounterWright-[facility]05-26-2023 Miscellaneous Notes* Telephone Encounter - Eliezer Lopez [...] notify patient. Chelsea Walters documented in this encounterWright-Patterson Medical Center05-01-2023 Miscellaneous Notes* Telephone Encounter - Lise Eng LPN - 09/02/2022 10:25 AM EDT Called the pharmacy and the December rx was never filled and now it has . This is needed. Last seen DIRECTOR OF EMAIL MARKETING 08/16/22. Next appt with Research Recruiter 10/16/22. * Telephone Encounter - Cassidy Carrillo [...] advise. Cassidy Carrillo Pss documented in this encounterWright-Patterson Medical Center04-14-2023 History of Present illness Narrative* Leela Older, HOSPITAL ADMINISTRATIVE ASSISTANT.[employer]ICKMAN [employer]GER - 08/16/2022 9:15 AM EDT CC Patient [...] options, medications, and coordinating care. Leela Quinones APRN.[employer] documented in this encounterWright-Patterson Medical Center03-02-2023 Instructions* Patient Instructions* Cody Carrington MD - 07/04/2022 9:04 AM EST Fasting blood work any time soon. documented in this encounterWright-Patterson Medical Center03-02-2023 History of Present illness Narrative* Cody Carrington MD - 07/04/2022 8:57 AM EST This note was created using [employer]. Subjective Clint Villar is a 81 year [...] goals of therapy, and side effects. - DIRECTOR OF EMAIL MARKETING follow up in 6 weeks. 2. Hyperlipidemia, [...] cancer - ICD9: V76.51, ICD10: Z12.11 - [facility] Depression Screening 01/20/2018 06/26/2020 12/27/2021 07/04/2022 PHQ-2 Score 0 0 0 0 Depression screening tool completed and reviewed. Based on score and interview, patient is not at risk for depression. Screening tool discussed with patient, and I recommended no further interventionat this time. Cody Carrington MD documented in this encounterWright-Patterson Medical Center08-25-2022 History of Present illness Narrative* Cody Carrington MD - 12/27/2021 9:08 AM EDT This note was created using [employer]. Subjective Clint Villar is a 81 year [...] iron. Cody Carrington MD documented in this encounterWright-Patterson Medical Center08-05-2022 Miscellaneous Notes* Telephone Encounter - Eliezer Lopez [...] patient. Jennifer Traci Pss documented in this encounterWright-Patterson Medical Center08-01-2022 Miscellaneous Notes* Telephone Encounter - Leila Antonio LPN - 12/03/2021 12:28 PM EDT notified. Leila Antonio LPN * Telephone Encounter - Cody Carrington MD - 12/03/2021 11:11 AM EDT No other labs needed. * Telephone Encounter - Sho Hardin LPN - 12/03/2021 10:14 AM EDT Patient is going to have labs completed prior to 12/27/2021 appointment. Do you have other labs that need ordered prior to this draw? documented in this encounterWright-Patterson Medical Center05-17-2022 Miscellaneous Notes* Telephone Encounter - Leila Antonio LPN - 09/18/2021 12:23 PM EDT [...] advise. Cassidy Carrillo Pss documented in this encounterWright-Patterson Medical Center04-01-2022 Miscellaneous Notes* Telephone Encounter - Krupa Rivera [...] advise when ready, . 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 documented as of this encounter (statuses as of 07/25/2023) [facility] CenterConsult note Author Danielle Garrett [facility] June 17, 2023 3:12pm Note Date/Time June 17, 2023 3:12pm [facility] Medical Records Department [address] [place] [address] Counseling Note - Pharmacy 06/17/23 1511 MR#: [id number] Acct: [id number] Name: CLINT VILLAR Rep #:[id number] : 1940 82 From: Danielle Garrett PCP: Dr. Cody Carrington MD Status:A DM HAIR Y Location: [place] [id number] Service has performed discharge medication reconciliation [...] of their dischargemedications. Patient counseled by pharmacy informaticistJomar. Medications at Discharge Home Medications atorvastatin 40 [...] Signature (if applicable): Date CC: ~ Signed [facility] Work Phone: Discharge summary Author Valentina Raza [facility] June 17, 2023 2:25pm Note Date/Time June 17, 2023 2:21pm [facility] Medical Records Department [address] [place] [address] Instructions for Home/Discharge Instructions 06/17/23 1420 MR#: [id number] Acct: [id number] Name: JIANCLINT REBECCA Rep #:[id number] : 1940 82 From: Valentina Raza DO [...] DO; Dr. Cody Carrington MD ~ Signed [facility] Work Phone: Evaluation note* Diagnosis Screening for colon cancer- Primary Special screening for malignant neoplasms, colon documented in this encounter [facility] note* Diagnosis Primary hypertension Unspecified essential hypertension Herpes infection Herpes simplex without mention of complication documented in this encounter [facility] note* Diagnosis Hyperlipidemia, unspecified hyperlipidemia type- Primary Herpes infection Herpes simplex without mention of complication Acquired hypothyroidism Unspecified hypothyroidism Primary hypertension Unspecified essential hypertension Muscle spasm of back Other symptoms referable to back Anemia, unspecified type documented in this encounter [facility] note* Diagnosis Hypertension, unspecified type- Primary Hyperlipidemia, unspecified hyperlipidemia type Impaired fasting glucose Hypothyroidism, unspecified type Screening for colon cancer Special screening for malignant neoplasms, colon documented in this encounter [facility] note* Diagnosis Hypertension, unspecified type- Primary [facility] Diagnosis Primary hypertension Unspecified essential hypertension documented in this encounter [facility] note* Diagnosis Urinary frequency- Primary Herpes infection Herpes simplex without mention of complication Acquired hypothyroidism Unspecified hypothyroidism Primary hypertension Unspecified essential hypertension Lower urinary tract symptoms (LUTS) Other symptoms involving urinary system Hyperlipidemia, unspecified hyperlipidemia type Positive colorectal cancer screening using Cologuard test documented in this encounter [facility] note* Diagnosis Elevated prostate specific antigen (PSA)- Primary Urinary frequency Lower urinary tract symptoms (LUTS) Other symptoms involving urinary system BPH with elevated PSA Hypertrophy of prostate without urinary obstruction and other lower urinary tract symptoms (LUTS) [facility]* Diagnosis Elevated prostate specific antigen (PSA)- Primary documented in this encounter [facility] note* Diagnosis Orthostatic hypotension- Primary New onset atrial fibrillation (HCC) Atrial fibrillation documented in this encounter [facility] note* Diagnosis Onset Date Resolution Status Atrial fibrillation with RVR acute Elevated serum creatinine ac chris Hyperglycemia acute Leukocytosis acute Lightheadedness acute Transient hypotension acute [facility] Work Phone: Evaluation note* Diagnosis New onset atrial fibrillation (HCC)- Primary Atrial fibrillation Primary hypertension Unspecified essential hypertension Acquired hypothyroidism Unspecified hypothyroidism documented in this encounter [facility] note* Diagnosis New onset atrial fibrillation (HCC)- Primary Atrial fibrillation Primary hypertension Unspecified essential hypertension Obesity, Class I, BMI 30-34.9 Obesity, unspecified Anemia, unspecified type Hypothyroidism, unspecified type Impaired fasting glucose Elevated PSA Elevated prostate specific antigen (PSA) documented in this encounter [facility] note* Diagnosis BPH with elevated PSA Hypertrophy of prostate without urinary obstruction and other lower urinary tract symptoms (LUTS) documented in this encounter [facility] note* Diagnosis Paroxysmal atrial fibrillation (HCC)- Primary Atrial fibrillation At risk for stroke Other specified personal history presenting hazards to health Anticoagulant long-term use Long-term (current) use of anticoagulants documented in this encounter [facility] note* Diagnosis Routine medical exam- Primary Routine general medical examination at a health care facility Primary hypertension Unspecified essential hypertension Hypothyroidism, unspecified type Elevated PSA Elevated prostate specific antigen (PSA) Positive colorectal cancer screening using Cologuard test Impaired fasting glucose [facility]* Diagnosis Positive colorectal cancer screening using Cologuard test- Primary Constipation, unspecified constipation type [facility]* Diagnosis Constipation, unspecified constipation type [facility]* Diagnosis Rectal mass- Primary Other symptoms involving digestive system documented [facility] encounter [facility]* Diagnosis Rectal mass- Primary Other symptoms involving digestive system [facility]* Diagnosis BPH with elevated PSA Hypertrophy of prostate without urinary obstruction and other lower urinary tract symptoms (LUTS) [facility]* Diagnosis Acquired hypothyroidism Unspecified hypothyroidism BPH with elevated PSA Hypertrophy of prostate without urinary obstruction and other lower urinary tract symptoms (LUTS) [facility]* Diagnosis Rectal mass- Primary Other symptoms involving digestive system [facility] encounter [facility]* Diagnosis Elevated prostate specific antigen (PSA)- Primary Nodular prostate with lower urinary tract symptoms Nodular prostate with urinary obstruction Benign prostatic hyperplasia with incomplete bladder emptying [facility] encounter [facility]* Diagnosis Retroperitoneal lymphadenopathy- Primary Enlargement of lymph nodes [facility] [facility] Diagnosis Herpes infection Herpes simplex without mention of complication Primary hypertension Unspecified essential hypertension Hyperlipidemia, unspecified hyperlipidemia type Urinary frequency Lower urinary tract symptoms (LUTS) Other symptoms involving urinary system [facility] Acute cough [facility] Diagnosis Elevated prostate specific antigen (PSA)- Primary [facility] Diagnosis Retroperitoneal lymphadenopathy- Primary Enlargement of lymph nodes Prostate cancer (HCC) Malignant neoplasm of prostate [facility] Diagnosis Retroperitoneal lymphadenopathy Enlargement of lymph nodes Prostate cancer (HCC) Malignant neoplasm of prostate [facility] Diagnosis Fatigue, unspecified type- Primary Herpes infection Herpes simplex without mention of complication Need for influenza vaccination Need for prophylactic vaccination and inoculation against influenza Prostate cancer (HCC) Malignant neoplasm of prostate Anemia, unspecified type Hypothyroidism, unspecified type Obstructive uropathy Urinary obstruction, unspecified documented in this encounter [facility] note* Diagnosis Prostate cancer (HCC)- Primary Malignant neoplasm of prostate [facility] Prostate cancer (HCC)- Primary Malignant neoplasm of prostate [facility] Prostate cancer (HCC)- Primary Malignant neoplasm of prostate Hydronephrosis, unspecified hydronephrosis type HERMES (acute kidney injury) (HCC) Acute kidney failure, unspecified Hydronephrosis, unspecified hydronephrosis type [facility] Diagnosis Hydronephrosis, unspecified hydronephrosis type [facility] Diagnosis Bilateral hydronephrosis- Primary Hydronephrosis Retroperitoneal lymphadenopathy Enlargement of lymph nodes Hydronephrosis with ureteral stricture, not elsewhere classified HERMES (acute kidney injury) (HCC) Acute kidney failure, unspecified Prostate cancer (HCC) Malignant neoplasm of prostate Hydronephrosis, unspecified hydronephrosis type HERMES (acute kidney injury) (HCC) Acute kidney failure, unspecified [facility] Diagnosis Prostate cancer (HCC)- Primary Malignant neoplasm of prostate 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 Prostate cancer (HCC) Malignant neoplasm of prostate Hydronephrosis, unspecified hydronephrosis type HERMES (acute kidney injury) (HCC) Acute kidney failure, unspecified [facility] Diagnosis 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 Prostate cancer (HCC) Malignant neoplasm of prostate Prostate cancer (HCC) Malignant neoplasm of prostate Hydronephrosis, unspecified hydronephrosis type HERMES (acute kidney injury) (HCC) Acute kidney failure, unspecified [facility] Diagnosis Bilateral hydronephrosis- Primary Hydronephrosis Ureteral [...] hydronephrosis- Primary Hydronephrosis [facility] Diagnosis Bilateral hydronephrosis- Primary Hydronephrosis [facility] Diagnosis 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 [facility] Diagnosis 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 [facility] Prostate cancer (HCC)- [...] 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-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 [facility] Diagnosis Prostate cancer (HCC)- Primary Malignant neoplasm of prostate Bilateral hydronephrosis Hydronephrosis Acute urinary retention Other specified retention of urine Prostate cancer (HCC)- Primary Malignant neoplasm of prostate Bilateral hydronephrosis Hydronephrosis Acute urinary retention Other specified retention of urine Other hydronephrosis * Assessment & Plan Note - Radha [...] Orders: BLADDER SCAN [facility] Diagnosis Prostate cancer (HCC)- Primary Malignant [...] intra-abdominal lymph nodes documented in this encounter [facility] note* Diagnosis Prostate cancer (HCC)- Primary Malignant neoplasm of prostate Bilateral hydronephrosis Hydronephrosis Acute urinary retention Other specified retention of urine Prostate cancer (HCC)- Primary Malignant neoplasm of prostate Bilateral hydronephrosis Hydronephrosis Acute urinary retention Other specified retention of urine Other hydronephrosis Anemia, unspecified type- Primary Urinary tract infection without hematuria, site unspecified documented in this encounter [facility] note* Diagnosis Prostate cancer (HCC)- Primary Malignant [...] referable to back documented in this encounter [facility] note* Diagnosis Prostate cancer (HCC)- Primary Malignant [...] whether esophagitis present documented in this encounter [facility] note* Diagnosis Prostate cancer (HCC)- Primary Malignant [...] site not specified [facility] Prostate cancer (HCC)- Primary Malignant neoplasm of prostate Bilateral hydronephrosis Hydronephrosis Acute urinary retention Other specified retention of urine Prostate cancer (HCC)- Primary Malignant neoplasm of prostate Bilateral hydronephrosis Hydronephrosis Acute urinary retention Other specified retention of urine Other hydronephrosis 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 Retroperitoneal lymphadenopathy Enlargement of lymph nodes [facility] Diagnosis Prostate cancer (HCC)- Primary Malignant neoplasm of prostate Bilateral hydronephrosis Hydronephrosis Acute urinary retention Other specified retention of urine Prostate cancer (HCC)- Primary Malignant neoplasm of prostate Bilateral hydronephrosis Hydronephrosis Acute urinary retention Other specified retention of urine Other hydronephrosis Prostate cancer (HCC)- Primary Malignant neoplasm of prostate [facility] Diagnosis Prostate cancer (HCC)- Primary Malignant [...] Bilateral hydronephrosis Hydronephrosis documented [facility] Diagnosis Prostate cancer (HCC)- Primary Malignant [...] at next visit [facility] Diagnosis Prostate cancer (HCC)- Primary Malignant neoplasm of prostate Bilateral hydronephrosis Hydronephrosis Acute urinary retention Other specified retention of urine Prostate cancer (HCC)- Primary Malignant neoplasm of prostate Bilateral hydronephrosis Hydronephrosis Acute urinary retention Other specified retention of urine Other hydronephrosis Prostate cancer (HCC)- Primary Malignant neoplasm of prostate Urinary frequency Bilateral hydronephrosis Hydronephrosis Bilateral hydronephrosis Hydronephrosis documented [facility] Diagnosis Prostate cancer (HCC)- Primary Malignant [...] prostate (HCC)- Primary [facility] Diagnosis Prostate cancer (HCC)- Primary Malignant [...] whether esophagitis present [facility] Diagnosis Prostate cancer (HCC)- Primary Malignant [...] neoplasm of prostate [facility] Diagnosis Prostate cancer (HCC)- Primary Malignant [...] neoplasm of prostate [facility] Diagnosis Prostate cancer (HCC)- Primary Malignant [...] Anemia, unspecified type [facility] Diagnosis Prostate cancer (HCC)- Primary Malignant [...] neoplasm of prostate documented in this encounter [facility] note* Diagnosis Prostate cancer (HCC)- Primary Malignant [...] neoplasm of prostate documented in this encounter [facility] note* Diagnosis Prostate cancer (HCC)- Primary Malignant [...] unspecified type- Primary [facility] noteNo assessment information availableBlSierra Kings [facility] Work Phone: Evaluation note* Diagnosis Prostate [...] unspecified hyperlipidemia type documented in this encounter [facility] for referral (narrative)* Outpatient Procedure (Routine) - Pending Review Specialty Diagnoses / Procedures Referred By Tate jiménez Referred To Contact [facility] Diagnoses Elevated prostate specific antigen (PSA) Procedures PROSTATE BIOPSY GUKI PROSTATE NEEDLE BIOPSY ANY APPROACH US, TRANSRECTAL URNLS DIP STICK/TABLET RGNT AUTO W/O MICROSCOPY US GUIDANCE NEEDLE PLACEMENT IMG S&I Robert Toscano PA-C [address] [place] [address] [address] Referral ID Status Reason Start Date Expiration Date Visits Requested Visits Authorized [id number] Pending Review Auto-Generat ed Referral 02/10/2023 02/11/2024 1 1 [facility] for referral (narrative)* Outpatient Procedure (Routine) - Pending Review Specialty Diagnoses / Procedures Referred By Tate jiménez Referred To Contact [facility] Diagnoses Orthostatic hypotension Procedures ECG COMPLETE ECG ROUTINE ECG W/LEAST 12 LDS W/I&R Cody Carrington MD [address] [place] [address] [facility] [address] [address] Referral ID Status Reason Start Date Expiration Date Visits Requested Visits Authorized [id number] Pending Review Auto-Generat ed Referral 06/16/2023 06/15/2024 1 1 [facility] for referral (narrative)* Outpatient Procedure (Routine) - Authorized Specialty Diagnoses / Procedures Referred By Fideliaac t Referred To Contact [facility] Diagnoses Rectal mass Procedures COLONOSCOPY SCREENING COLONOSCOPY FLX DX W/COLLJ SPEC WHEN Fernando Villareal MD [address] [place] [address] [place] [phone] Referral ID Status Reason Start Date Expiration Date Visits Requested Visits Authorized [id number] Authorized Auto-Generat ed Referral 12/08/2023 12/07/2024 1 1 [facility] for referral (narrative)* Outpatient Procedure (Routine) - Closed Specialty Diagnoses / Procedures [facility] Referred To Contact [facility] Diagnoses Rectal mass Procedures COLONOSCOPY SCREENING COLONOSCOPY FLX DX W/COLLJ SPEC WHEN Fernando Villareal MD [address] [place] [address] [place] [phone] Referral ID Status Reason Start Date Expiration Date V isits Requested Visits Authorized [id number] Closed Auto-Generate d Referral 12/08/2023 12/07/2024 1 1 [facility] for referral (narrative)* Outpatient Procedure (Routine) - New Request Specialty Diagnoses / Procedures Referred By Tate t Referred To Contact [facility] Diagnoses Elevated prostate specific antigen (PSA) Procedures PROSTATE BIOPSY GUKI PROSTATE NEEDLE BIOPSY ANY APPROACH US, TRANSRECTAL URNLS DIP STICK/TABLET RGNT AUTO W/O MICROSCOPY US GUIDANCE NEEDLE PLACEMENT IMG S&I Devin Cortes MD [address] [place] [address] [place] [address] Referral ID Status Reason Start Date Expiration Date Visits Requested Visits Authorized [id number] New Request Auto-Generat ed Referral 12/31/2023 12/30/2024 1 1 [facility] for referral (narrative)* Diagnostic Procedure Only (Routine) - Open Specialty Diagnoses / Procedures Referred By Contac t Referred To Contact [facility] Diagnoses Retroperitoneal lymphadenopathy Prostate cancer (HCC) Procedures NM BONE WHOLE BODY BONE &/JO[place] [address] [place] [address] [facility] [address] [place] [address] Referral ID Status Reason Start Date Expiration Date V isits Requested Visits Authorized [id number] Open Auto-Generate d Referral 02/13/2024 03/14/2025 1 1 [facility] for referral (narrative)* Diagnostic Procedure Only (Routine) - Closed Specialty Diagnoses / Procedures [facility] Referred To Contact [facility]LECULAR [facility] FUNCTIONAL IMAGING Diagnoses Retroperitoneal lymphadenopathy Prostate cancer (HCC) Procedures NM BONE WHOLE BODY BONE &/JO[place] [address] [place] [address] Molecular [facility] Functional Imaging [address] [place] [address] Referral ID Status Reason Start Date Expiration Date V isits Requested Visits Authorized [id number] Closed Auto-Generate d Referral 05/05/2023 05/04/2024 1 1 [facility] for referral (narrative)* Diagnostic Procedure Only (Routine) - New Request Specialty Diagnoses / Procedures Referred By Contac t Referred To Contact XR IMAGING Diagnoses Bilateral hydronephrosis Ureteral stent present Procedures XR ABDOMEN 1V SUPINE RADIOLOGIC EXAM ABDOMEN 1 VIEW Radha Larsen MD [address] [place] [address] [place] [address] Referral ID Status Reason Start Date Expiration Date Visits Requested Visits Authorized [id number] New Request Auto-Generat ed Referral 04/07/2025 1 1 [facility] for referral (narrative)No reason for referral information availableSelect [facility] [employer] Work Phone: Reason for visit Narrative* Outpatient Procedure (Routine) - Closed Specialty Diagnoses / Procedures Referred By Contac t Referred To Contact [facility] Diagnoses Rectal mass Procedures COLONOSCOPY SCREENING COLONOSCOPY FLX DX W/COLLJ SPEC WHEN [facility] Fernando Wen MD [address] [place] [address] [facility] [address] [place] [address] Referral ID Status Reason Start Date Expiration Date V isits Requested Visits Authorized [id number] Closed Auto-Generate d Referral 12/08/2023 12/07/2024 1 1 [facility] for visit Narrative* Diagnostic Procedure Only (Routine) - Closed Specialty Diagnoses / Procedures Referred By Contac t Referred To Contact MOLECULAR [facility] FUNCTIONAL IMAGING Diagnoses Retroperitoneal lymphadenopathy Prostate cancer (HCC) Procedures NM BONE WHOLE BODY BONE &/JO[place] [address] [place] [address] Molecular & Functional Imaging [address] [place] [address] Referral ID Status Reason Start Date Expiration Date V isits Requested Visits Authorized [id number] Closed Auto-Generate d Referral 05/05/2023 05/04/2024 1 1 [facility] for visit Narrative* MRI/CT (Routine) - Closed Specialty Diagnoses / Procedures Referred By Contac t Referred To Contact CT IMAGING Diagnoses Bilateral hydronephrosis Other hydronephrosis Procedures CT UROGRAM WO/W IVCON CT ABD & PELVIS W/WO CONTRST 1+ BODY REGRadha Menard MD [address] [place] [address] Phone: tel: fax: CT IMAGING [id number] Referral ID Status Reason Start Date Expiration Date V isits Requested Visits Authorized [id number] Closed Auto-Generate d Referral 06/08/2024 05/04/2025 1 1 [facility] Reason for Referral Specialty Diagnoses / Procedures Referred By Contac t Referred To Contact Urology Diagnoses Urinary frequency Lower urinary tract symptoms (LUTS) Procedures CONSULT TO UROLOGY OFFICE/[facility] MDM 60-74 MINUTES Cody Carrington MD [address] [place] [address] Referral ID Status Reason Start Date Expiration Date Visits Requested Visits Authorized [id number] Pending Review PCP Requested Referral 01/03/2023 01/03/2024 1 1 Specialty Diagnoses / Procedures Referred By Contac t Referred To Contact Cardiology Diagnoses New onset atrial fibrillation (HCC) Procedures CONSULT TO CARDIOLOGY Cody Carrington MD [address] [place] [address] Referral ID Status Reason Start Date Expiration Date Visits Requested Visits Authorized [id number] Ref Not Required PCP Requested Referral 06/23/2023 06/22/2024 1 1 Specialty Diagnoses / Procedures Referred By Contac t Referred To Contact CT IMAGING Diagnoses Constipation, unspecified constipation type Procedures CT COLONOGRAPHY SCREENING WO IVCON CT COLONOGRPHY DX IMAGE POSTPROCESS W/O CONTRAST Cody Carrington MD [address] [place] [address] [id number] Referral ID Status Reason Start Date Expiration Date Visits Requested Visits Authorized [id number] Pending Review Auto-Generat ed Referral 10/25/2023 11/23/2024 1 1 Referral ID Status Reason Start Date Expiration Date V isits Requested Visits Authorized [id number] Closed Auto-Generate d Referral 11/19/2023 05/04/2024 1 1 Specialty Diagnoses / Procedures Referred By Contac t Referred To Contact Diagnoses Rectal mass Procedures CONSULT TO HEMATOLOGY/ONCOLOGY OFFICE/[facility]PATIENT [facility] 60 MINUTES Cody Carrington MD [facility] [place] [address] Referral ID Status Reason Start Date Expiration Date Visits Requested Visits Authorized [id number] Authorized PCP Requested Referral 12/04/2023 12/03/2024 1 1 Specialty Diagnoses / Procedures Referred By Contac t Referred To Contact General Surgery Diagnoses Rectal mass Procedures CONSULT TO GENERAL SURGERY OFFICE/OUTPATIENT [facility] 60 MINUTES Cody Carrington MD [address] [place] [address] Referral ID Status Reason Start Date Expiration Date V isits Requested Visits Authorized [id number] Closed PCP Requested Referral 12/05/2023 12/03/2024 1 1 Specialty Diagnoses / Procedures Referred By Contac t Referred To Contact Radiation Oncology Diagnoses Prostate cancer (HCC) Procedures RAD/ONC CONSULT OFFICE/OUTPATIENT [facility] [address] [place] [address] [place] [address] Referral ID Status Reason Start Date Expiration Date Visits Requested Visits Authorized [id number] Authorized PCP Requested Referral 4 02/26/2025 1 1 Specialty Diagnoses / Procedures Referred By Contac t Referred To Contact CT IMAGING Diagnoses Hydronephrosis, unspecified hydronephrosis type Procedures CT ABD/PEL WO IVCON CT ABD & PELVIS W/O CONTRAST Devin Cortes MD [address] [place] [id number] Imaging [place] [address] Referral ID Status Reason Start Date Expiration Date Visits Requested Visits Authorized [id number] Authorized Auto-Generat ed Referral 4 05/04/2024 3 3 Specialty Diagnoses / Procedures Referred By Contac t Referred To Contact Diagnoses 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) Procedures CT SIM PLANNING RADIATION ONCOLOGY THER RAD SIMULAJ-AIDED FIELD SETTING COMPLEX Rodolfo Aguilar MD [address] [place] [address] Referral ID Status Reason Start Date Expiration Date Visits Requested Visits Authorized [id number] New Request PCP Requested Referral 4 05/30/2024 1 1 Specialty Diagnoses / Procedures Referred By Contjefferson t Referred To Contact CT IMAGING Diagnoses Bilateral hydronephrosis Other hydronephrosis Procedures CT UROGRAM WO/W IVCON CT ABD & PELVIS W/WO CONTRST 1+ BODY REGNS Radha Larsen MD [address] [place] [address] [place] [address] Referral ID Status Reason Start Date Expiration Date V isits Requested Visits Authorized [id number] Open Auto-Generate d Referral 04/14/2024 05/14/2025 1 [...] No June 16, 024 3:43pm Power of Environmental Journalist No June 16, 2023 3:43pm Advance Directive Response Recorded Date/ Time Living Will No June 16 8:04pm Power of Environmental Journalist No June 16, 2023 8:04pm Summary Purpose Additional Source Comments Source Comments (unrecognize d section and content) In the event this informatio n is protected by the Federal Confidentiality of Alcohol and Drug Abuse Patient Records regulations: The Federal rules restrict any use of the information to criminally investigate or prosecute any alcohol or drug abuse patient.[facility] the event this information is protected by the Federal Confidentiality of Alcohol and Drug Abuse Patient Records regulations: The Federal rules restrict any use of the information to criminally investigate or prosecute any alcohol or drug abuse patient.[facility] the event this information is protected by the Federal Confidentiality of Alcohol and Drug Abuse Patient Records regulations: The Federal rules restrict any use of the information to criminally investigate or prosecute any alcohol or drug abuse patient.[facility] the event this information is protected by the Federal Confidentiality of Alcohol and Drug Abuse Patient Records regulations: The Federal rules restrict any use of the information to criminally investigate or prosecute any alcohol or drug abuse patient.[facility] the event this information is protected by the Federal Confidentiality of Alcohol and Drug Abuse Patient Records regulations: The Federal rules restrict any use of the information to criminally investigate or prosecute any alcohol or drug abuse patient.[facility] the event this information is protected by the Federal Confidentiality of Alcohol and Drug Abuse Patient Records regulations: The Federal rules restrict any use of the information to criminally investigate or prosecute any alcohol or drug abuse patient.[facility] the event this information is protected by the Federal Confidentiality of Alcohol and Drug Abuse Patient Records regulations: The Federal rules restrict any use of the information to criminally investigate or prosecute any alcohol or drug abuse patient.[facility] Center[facility] the event this information is protected by the Federal Confidentiality of Alcohol and Drug Abuse Patient Records regulations: The Federal rules restrict any use of the information to criminally investigate or prosecute any alcohol or drug abuse patient.[facility] Center[facility] the event this information is protected by the Federal Confidentiality of Alcohol and Drug Abuse Patient Records regulations: The Federal rules restrict any use of the information to criminally investigate or prosecute any alcohol or drug abuse patient.[facility] the event this information is protected by the Federal Confidentiality of Alcohol and Drug Abuse Patient Records regulations: The Federal rules restrict any use of the information to criminally investigate or prosecute any alcohol or drug abuse patient.[facility] the event this information is protected by the Federal Confidentiality of Alcohol and Drug Abuse Patient Records regulations: The Federal rules restrict any use of the information to criminally investigate or prosecute any alcohol or drug abuse patient.[facility] Center[facility] the event this information is protected by the Federal Confidentiality of Alcohol and Drug Abuse Patient Records regulations: The Federal rules restrict any use of the information to criminally investigate or prosecute any alcohol or drug abuse patient.[facility] CenterIn the event this information is protected by [...] or prosecute any alcohol or drug abuse patient.[facility] CenterIn the event this information is protected by the Federal Confidentiality of Alcohol and Drug Abuse Patient Records regulations: The Federal rules restrict any use of the information to criminally investigate or prosecute any alcohol or drug abuse patient.[facility] CenterIn the event this information is protected by the Federal Confidentiality of Alcohol and Drug Abuse Patient Records regulations: The Federal rules restrict any use of the information to criminally investigate or prosecute any alcohol or drug abuse patient.[facility] CenterIn the event this information is protected by the Federal Confidentiality of Alcohol and Drug Abuse Patient Records regulations: The Federal rules restrict any use of the information to criminally investigate or prosecute any alcohol or drug abuse patient.[facility] CenterIn the event this information is protected by the Federal Confidentiality of Alcohol and Drug Abuse Patient Records regulations: The Federal rules restrict any use of the information to criminally investigate or prosecute any alcohol or drug abuse patient.[facility] CenterIn the event this information is protected by the Federal Confidentiality of Alcohol and Drug Abuse Patient Records regulations: The Federal rules restrict any use of the information to criminally investigate or prosecute any alcohol or drug abuse patient.[facility] CenterIn the event this information is protected by the Federal Confidentiality of Alcohol and Drug Abuse Patient Records regulations: The Federal rules restrict any use of the information to criminally investigate or prosecute any alcohol or drug abuse patient.[facility] CenterIn the event this information is protected by the Federal Confidentiality of Alcohol and Drug Abuse Patient Records regulations: The Federal rules restrict any use of the information to criminally investigate or prosecute any alcohol or drug abuse patient.[facility] CenterIn the event this information is protected by the Federal Confidentiality of Alcohol and Drug Abuse Patient Records regulations: The Federal rules restrict any use of the information to criminally investigate or prosecute any alcohol or drug abuse patient.[facility] CenterIn the event this information is protected by the Federal Confidentiality of Alcohol and Drug Abuse Patient Records regulations: The Federal rules restrict any use of the information to criminally investigate or prosecute any alcohol or drug abuse patient.[facility] CenterIn the event this information is protected by the Federal Confidentiality of Alcohol and Drug Abuse Patient Records regulations: The Federal rules restrict any use of the information to criminally investigate or prosecute any alcohol or drug abuse patient.[facility] CenterIn the event this information is protected by the Federal Confidentiality of Alcohol and Drug Abuse Patient Records regulations: The Federal rules restrict any use of the information to criminally investigate or prosecute any alcohol or drug abuse patient.[facility] CenterIn the event this information is protected by the Federal Confidentiality of Alcohol and Drug Abuse Patient Records regulations: The Federal rules restrict any use of the information to criminally investigate or prosecute any alcohol or drug abuse patient.[facility] CenterIn the event this information is protected by the Federal Confidentiality of Alcohol and Drug Abuse Patient Records regulations: The Federal rules restrict any use of the information to criminally investigate or prosecute any alcohol or drug abuse patient.[facility] CenterIn the event this information is protected by the Federal Confidentiality of Alcohol and Drug Abuse Patient Records regulations: The Federal rules restrict any use of the information to criminally investigate or prosecute any alcohol or drug abuse patient.[facility] CenterIn the event this information is protected by the Federal Confidentiality of Alcohol and Drug Abuse Patient Records regulations: The Federal rules restrict any use of the information to criminally investigate or prosecute any alcohol or drug abuse patient.[facility] CenterIn the event this information is protected by the Federal Confidentiality of Alcohol and Drug Abuse Patient Records regulations: The Federal rules restrict any use of the information to criminally investigate or prosecute any alcohol or drug abuse patient.[facility] CenterIn the event this information is protected by the Federal Confidentiality of Alcohol and Drug Abuse Patient Records regulations: The Federal rules restrict any use of the information to criminally investigate or prosecute any alcohol or drug abuse patient.[facility] CenterIn the event this information is protected by the Federal Confidentiality of Alcohol and Drug Abuse Patient Records regulations: The Federal rules restrict any use of the information to criminally investigate or prosecute any alcohol or drug abuse patient.[facility] CenterIn the event this information is protected by the Federal Confidentiality of Alcohol and Drug Abuse Patient Records regulations: The Federal rules restrict any use of the information to criminally investigate or prosecute any alcohol or drug abuse patient.[facility] CenterIn the event this information is protected by the Federal Confidentiality of Alcohol and Drug Abuse Patient Records regulations: The Federal rules restrict any use of the information to criminally investigate or prosecute any alcohol or drug abuse patient.[facility] CenterIn the event this information is protected by the Federal Confidentiality of Alcohol and Drug Abuse Patient Records regulations: The Federal rules restrict any use of the information to criminally investigate or prosecute any alcohol or drug abuse patient.[facility] CenterIn the event this information is protected by the Federal Confidentiality of Alcohol and Drug Abuse Patient Records regulations: The Federal rules restrict any use of the information to criminally investigate or prosecute any alcohol or drug abuse patient.[facility] CenterIn the event this information is protected by the Federal Confidentiality of Alcohol and Drug Abuse Patient Records regulations: The Federal rules restrict any use of the information to criminally investigate or prosecute any alcohol or drug abuse patient.[facility] CenterIn the event this information is protected by the Federal Confidentiality of Alcohol and Drug Abuse Patient Records regulations: The Federal rules restrict any use of the information to criminally investigate or prosecute any alcohol or drug abuse patient.[facility] CenterIn the event this information is protected by the Federal Confidentiality of Alcohol and Drug Abuse Patient Records regulations: The Federal rules restrict any use of the information to criminally investigate or prosecute any alcohol or drug abuse patient.[facility] CenterIn the event this information is protected by the Federal Confidentiality of Alcohol and Drug Abuse Patient Records regulations: The Federal rules restrict any use of the information to criminally investigate or prosecute any alcohol or drug abuse patient.[facility] CenterIn the event this information is protected by the Federal Confidentiality of Alcohol and Drug Abuse Patient Records regulations: The Federal rules restrict any use of the information to criminally investigate or prosecute any alcohol or drug abuse patient.[facility] CenterIn the event this information is protected by the Federal Confidentiality of Alcohol and Drug Abuse Patient Records regulations: The Federal rules restrict any use of the information to criminally investigate or prosecute any alcohol or drug abuse patient.[facility] CenterIn the event this information is protected by the Federal Confidentiality of Alcohol and Drug Abuse Patient Records regulations: The Federal rules restrict any use of the information to criminally investigate or prosecute any alcohol or drug abuse patient.[facility] CenterIn the event this information is protected by the Federal Confidentiality of Alcohol and Drug Abuse Patient Records regulations: The Federal rules restrict any use of the information to criminally investigate or prosecute any alcohol or drug abuse patient.[facility] CenterIn the event this information is protected by the Federal Confidentiality of Alcohol and Drug Abuse Patient Records regulations: The Federal rules restrict any use of the information to criminally investigate or prosecute any alcohol or drug abuse patient.[facility] CenterIn the event this information is protected by the Federal Confidentiality of Alcohol and Drug Abuse Patient Records regulations: The Federal rules restrict any use of the information to criminally investigate or prosecute any alcohol or drug abuse patient.[facility] CenterIn the event this information is protected by the Federal Confidentiality of Alcohol and Drug Abuse Patient Records regulations: The Federal rules restrict any use of the information to criminally investigate or prosecute any alcohol or drug abuse patient.[facility] CenterIn the event this information is protected by the Federal Confidentiality of Alcohol and Drug Abuse Patient Records regulations: The Federal rules restrict any use of the information to criminally investigate or prosecute any alcohol or drug abuse patient.[facility] CenterIn the event this information is protected by the Federal Confidentiality of Alcohol and Drug Abuse Patient Records regulations: The Federal rules restrict any use of the information to criminally investigate or prosecute any alcohol or drug abuse patient.[facility] CenterIn the event this information is protected by the Federal Confidentiality of Alcohol and Drug Abuse Patient Records regulations: The Federal rules restrict any use of the information to criminally investigate or prosecute any alcohol or drug abuse patient.[facility] CenterIn the event this information is protected by the Federal Confidentiality of Alcohol and Drug Abuse Patient Records regulations: The Federal rules restrict any use of the information to criminally investigate or prosecute any alcohol or drug abuse patient.[facility] CenterIn the event this information is protected by the Federal Confidentiality of Alcohol and Drug Abuse Patient Records regulations: The Federal rules restrict any use of the information to criminally investigate or prosecute any alcohol or drug abuse patient.[facility] CenterIn the event this information is protected by the Federal Confidentiality of Alcohol and Drug Abuse Patient Records regulations: The Federal rules restrict any use of the information to criminally investigate or prosecute any alcohol or drug abuse patient.[facility] CenterIn the event this information is protected by the Federal Confidentiality of Alcohol and Drug Abuse Patient Records regulations: The Federal rules restrict any use of the information to criminally investigate or prosecute any alcohol or drug abuse patient.[facility]In the event this information is protected by the Federal Confidentiality of Alcohol and Drug Abuse Patient Records regulations: The Federal rules restrict any use of the information to criminally investigate or prosecute any alcohol or drug abuse patient.[facility] CenterIn the event this information is protected by the Federal Confidentiality of Alcohol and Drug Abuse Patient Records regulations: The Federal rules restrict any use of the information to criminally investigate or prosecute any alcohol or drug abuse patient.[facility] CenterIn the event this information is protected by the Federal Confidentiality of Alcohol and Drug Abuse Patient Records regulations: The Federal rules restrict any use of the information to criminally investigate or prosecute any alcohol or drug abuse patient.[facility] CenterIn the event this information is protected by the Federal Confidentiality of Alcohol and Drug Abuse Patient Records regulations: The Federal rules restrict any use of the information to criminally investigate or prosecute any alcohol or drug abuse patient.[facility] CenterIn the event this information is protected by the Federal Confidentiality of Alcohol and Drug Abuse Patient Records regulations: The Federal rules restrict any use of the information to criminally investigate or prosecute any alcohol or drug abuse patient.[facility] CenterIn the event this information is protected by the Federal Confidentiality of Alcohol and Drug Abuse Patient Records regulations: The Federal rules restrict any use of the information to criminally investigate or prosecute any alcohol or drug abuse patient.[facility] CenterIn the event this information is protected by the Federal Confidentiality of Alcohol and Drug Abuse Patient Records regulations: The Federal rules restrict any use of the information to criminally investigate or prosecute any alcohol or drug abuse patient.[facility] CenterIn the event this information is protected by the Federal Confidentiality of Alcohol and Drug Abuse Patient Records regulations: The Federal rules restrict any use of the information to criminally investigate or prosecute any alcohol or drug abuse patient.[facility] CenterIn the event this information is protected by [...] or prosecute any alcohol or drug abuse patient.[facility] CenterIn the event this information is protected by the Federal Confidentiality of Alcohol and Drug Abuse Patient Records regulations: The Federal rules restrict any use of the information to criminally investigate or prosecute any alcohol or drug abuse patient.[facility] CenterIn the event this information is protected by the Federal Confidentiality of Alcohol and Drug Abuse Patient Records regulations: The Federal rules restrict any use of the information to criminally investigate or prosecute any alcohol or drug abuse patient.[facility] CenterIn the event this information is protected by the Federal Confidentiality of Alcohol and Drug Abuse Patient Records regulations: The Federal rules restrict any use of the information to criminally investigate or prosecute any alcohol or drug abuse patient.[facility] CenterIn the event this information is protected by the Federal Confidentiality of Alcohol and Drug Abuse Patient Records regulations: The Federal rules restrict any use of the information to criminally investigate or prosecute any alcohol or drug abuse patient.[facility]In the event this information is protected by the Federal Confidentiality of Alcohol and Drug Abuse Patient Records regulations: The Federal rules restrict any use of the information to criminally investigate or prosecute any alcohol or drug abuse patient.[facility]In the event this information is protected by the Federal Confidentiality of Alcohol and Drug Abuse Patient Records regulations: The Federal rules restrict any use of the information to criminally investigate or prosecute any alcohol or drug abuse patient.[facility]In the event this information is protected by the Federal Confidentiality of Alcohol and Drug Abuse Patient Records regulations: The Federal rules restrict any use of the information to criminally investigate or prosecute any alcohol or drug abuse patient.[facility]In the event this information is protected by the Federal Confidentiality of Alcohol and Drug Abuse Patient Records regulations: The Federal rules restrict any use of the information to criminally investigate or prosecute any alcohol or drug abuse patient.[facility]In the event this information is protected by the Federal Confidentiality of Alcohol and Drug Abuse Patient Records regulations: The Federal rules restrict any use of the information to criminally investigate or prosecute any alcohol or drug abuse patient.[facility]In the event this information is protected by the Federal Confidentiality of Alcohol and Drug Abuse Patient Records regulations: The Federal rules restrict any use of the information to criminally investigate or prosecute any alcohol or drug abuse patient.[facility]In the event this information is protected by the Federal Confidentiality of Alcohol and Drug Abuse Patient Records regulations: The Federal rules restrict any use of the information to criminally investigate or prosecute any alcohol or drug abuse patient.[facility] CenterIn the event this information is protected by the Federal Confidentiality of Alcohol and Drug Abuse Patient Records regulations: The Federal rules restrict any use of the information to criminally investigate or prosecute any alcohol or drug abuse patient.[facility] CenterIn the event this information is protected by the Federal Confidentiality of Alcohol and Drug Abuse Patient Records regulations: The Federal rules restrict any use of the information to criminally investigate or prosecute any alcohol or drug abuse patient.[facility] CenterIn the event this information is protected by the Federal Confidentiality of Alcohol and Drug Abuse Patient Records regulations: The Federal rules restrict any use of the information to criminally investigate or prosecute any alcohol or drug abuse patient.[facility]In the event this information is protected by the Federal Confidentiality of Alcohol and Drug Abuse Patient Records regulations: The Federal rules restrict any use of the information to criminally investigate or prosecute any alcohol or drug abuse patient.[facility] CenterIn the event this information is protected by the Federal Confidentiality of Alcohol and Drug Abuse Patient Records regulations: The Federal rules restrict any use of the information to criminally investigate or prosecute any alcohol or drug abuse patient.[facility]In the event this information is protected by the Federal Confidentiality of Alcohol and Drug Abuse Patient Records regulations: The Federal rules restrict any use of the information to criminally investigate or prosecute any alcohol or drug abuse patient.[facility]In the event this information is protected by the Federal Confidentiality of Alcohol and Drug Abuse Patient Records regulations: The Federal rules restrict any use of the information to criminally investigate or prosecute any alcohol or drug abuse patient.[facility]In the event this information is protected by the Federal Confidentiality of Alcohol and Drug Abuse Patient Records regulations: The Federal rules restrict any use of the information to criminally investigate or prosecute any alcohol or drug abuse patient.[facility]In the event this information is protected by the Federal Confidentiality of Alcohol and Drug Abuse Patient Records regulations: The Federal rules restrict any use of the information to criminally investigate or prosecute any alcohol or drug abuse patient.[facility]In the event this information is protected by the Federal Confidentiality of Alcohol and Drug Abuse Patient Records regulations: The Federal rules restrict any use of the information to criminally investigate or prosecute any alcohol or drug abuse patient.[facility]In the event this information is protected by the Federal Confidentiality of Alcohol and Drug Abuse Patient Records regulations: The Federal rules restrict any use of the information to criminally investigate or prosecute any alcohol or drug abuse patient.[facility]In the event this information is protected by the Federal Confidentiality of Alcohol and Drug Abuse Patient Records regulations: The Federal rules restrict any use of the information to criminally investigate or prosecute any alcohol or drug abuse patient.[facility]In the event this information is protected by the Federal Confidentiality of Alcohol and Drug Abuse Patient Records regulations: The Federal rules restrict any use of the information to criminally investigate or prosecute any alcohol or drug abuse patient.[facility]In the event this information is protected by the Federal Confidentiality of Alcohol and Drug Abuse Patient Records regulations: The Federal rules restrict any use of the information to criminally investigate or prosecute any alcohol or drug abuse patient.[facility]In the event this information is protected by the Federal Confidentiality of Alcohol and Drug Abuse Patient Records regulations: The Federal rules restrict any use of the information to criminally investigate or prosecute any alcohol or drug abuse patient.[facility]In the event this information is protected by the Federal Confidentiality of Alcohol and Drug Abuse Patient Records regulations: The Federal rules restrict any use of the information to criminally investigate or prosecute any alcohol or drug abuse patient.[facility]In the event this information is protected by the Federal Confidentiality of Alcohol and Drug Abuse Patient Records regulations: The Federal rules restrict any use of the information to criminally investigate or prosecute any alcohol or drug abuse patient.[facility]In the event this information is protected by the Federal Confidentiality of Alcohol and Drug Abuse Patient Records regulations: The Federal rules restrict any use of the information to criminally investigate or prosecute any alcohol or drug abuse patient.[facility]In the event this information is protected by the Federal Confidentiality of Alcohol and Drug Abuse Patient Records regulations: The Federal rules restrict any use of the information to criminally investigate or prosecute any alcohol or drug abuse patient.[facility] CenterIn the event this information is protected by the Federal Confidentiality of Alcohol and Drug Abuse Patient Records regulations: The Federal rules restrict any use of the information to criminally investigate or prosecute any alcohol or drug abuse patient.[facility]In the event this information is protected by the Federal Confidentiality of Alcohol and Drug Abuse Patient Records regulations: The Federal rules restrict any use of the information to criminally investigate or prosecute any alcohol or drug abuse patient.[facility] CenterIn the event this information is protected by the Federal Confidentiality of Alcohol and Drug Abuse Patient Records regulations: The Federal rules restrict any use of the information to criminally investigate or prosecute any alcohol or drug abuse patient.[facility] CenterIn the event this information is protected by the Federal Confidentiality of Alcohol and Drug Abuse Patient Records regulations: The Federal rules restrict any use of the information to criminally investigate or prosecute any alcohol or drug abuse patient.[facility] CenterIn the event this information is protected by the Federal Confidentiality of Alcohol and Drug Abuse Patient Records regulations: The Federal rules restrict any use of the information to criminally investigate or prosecute any alcohol or drug abuse patient.[facility] CenterIn the event this information is protected by the Federal Confidentiality of Alcohol and Drug Abuse Patient Records regulations: The Federal rules restrict any use of the information to criminally investigate or prosecute any alcohol or drug abuse patient.[facility] CenterIn the event this information is protected by the Federal Confidentiality of Alcohol and Drug Abuse Patient Records regulations: The Federal rules restrict any use of the information to criminally investigate or prosecute any alcohol or drug abuse patient.[facility] CenterIn the event this information is protected by the Federal Confidentiality of Alcohol and Drug Abuse Patient Records regulations: The Federal rules restrict any use of the information to criminally investigate or prosecute any alcohol or drug abuse patient.[facility] CenterIn the event this information is protected by the Federal Confidentiality of Alcohol and Drug Abuse Patient Records regulations: The Federal rules restrict any use of the information to criminally investigate or prosecute any alcohol or drug abuse patient.[facility] CenterIn the event this information is protected by the Federal Confidentiality of Alcohol and Drug Abuse Patient Records regulations: The Federal rules restrict any use of the information to criminally investigate or prosecute any alcohol or drug abuse patient.[facility] CenterIn the event this information is protected by the Federal Confidentiality of Alcohol and Drug Abuse Patient Records regulations: The Federal rules restrict any use of the information to criminally investigate or prosecute any alcohol or drug abuse patient.[facility] CenterIn the event this information is protected by the Federal Confidentiality of Alcohol and Drug Abuse Patient Records regulations: The Federal rules restrict any use of the information to criminally investigate or prosecute any alcohol or drug abuse patient.[facility] CenterIn the event this information is protected by the Federal Confidentiality of Alcohol and Drug Abuse Patient Records regulations: The Federal rules restrict any use of the information to criminally investigate or prosecute any alcohol or drug abuse patient.[facility] Reason for Visit (unrecogniz ed section and content) Reason Comments Established Patient Specialty Diagnoses / Procedures Referred By Contac t Referred To Contact Diagnoses Prostate cancer (HCC) Procedures LEUPROLIDE ACETATE SUSPNSION Johan Payne MD [address] [place] [address] Phone: tel: Hematology/Oncology [address] [place] [address] Phone: tel: fax: Referral ID Status Reason Start Date Expiration Date V isits Requested Visits Authorized [id number] Authorized 02/13/2024 05/26/2025 99 99 Reason Comments [...] 30-39 MIN 4C EST Cody Carrington MD [address] [place] [address] Cody Carrington MD [address] [place] [address] Referral ID Status Reason Start Date Expiration Date Visits Re quested Visits Authorized [id number] Closed 01/03/2023 05/04/2023 1 1 Reason Comments Results Reason Comments Consult Urinary Frequency LUTS Specialty Diagnoses / Procedures Referred By Contac t Referred To Contact Urology / UROLOGY Diagnoses Urinary frequency Dx: Urinary frequency [R35.0]; Lower urinary tract symptoms (LUTS) [R39.9] Instr: Reason for Consultation: Lower urinary tract symptoms. Procedures OFFICE/OUTPATIENT NEW MODERATE MDM 45-59 MINUTES NEW UROL Cody Carrington MD [address] [place] [address] Robert Toscano PA-C [address] [place] [address] Referral ID Status Reason Start Date Expiration Date Visits Re quested Visits Authorized [id number] Closed 02/04/2023 05/04/2023 1 1 Reason Onset Date Comments Refill Request 02/05/2023 Reason Comments Results Reason Comments Dizziness Reason Comments Dizziness Reason Comments Hospital F/U Reason Comments 4 week follow-up Specialty Diagnoses / Procedures Referred By Contac t Referred To Contact Internal Medicine / INTERNAL MEDICINE Diagnoses 6 mth f/u Procedures 4C EST Cody Carrington MD [address] [place] [address] Cody Carrington MD [address] [place] [address] Referral ID Status Reason Start Date Expiration Date V isits Requested Visits Authorized [id number] Pending Review 07/04/2023 10/02/2023 1 1 Reason Comments Appointment Reason Comments Refill Request Reason Comments New Patient AFIB Reason Comments Yearly Exam Reason Comments Procedure Specialty Diagnoses / Procedures Referred By Contac t Referred To Contact CT IMAGING Diagnoses Constipation, unspecified constipation type Procedures CT COLONOGRAPHY SCREENING WO IVCON CT COLONOGRPHY DX IMAGE POSTPROCESS W/O CONTRAST Cody Carrington MD [address] [place] [address] Ct [facility] [place] [address] Referral ID Status Reason Start Date Expiration Date V isits Requested Visits Authorized [id number] Closed Auto-Generate d Referral 11/19/2023 05/04/2024 1 1 Reason Comments Consult rectal mass Specialty Diagnoses / Procedures Referred By Contac t Referred To Contact General Surgery Diagnoses Rectal mass Procedures CONSULT TO GENERAL SURGERY OFFICE/OUTPATIENT [facility] 60 [place] [address] [place] [address] Referral ID Status Reason Start Date Expiration Date V isits Requested Visits Authorized [id number] Closed PCP Requested Referral 12/05/2023 12/03/2024 1 1 Reason Comments Results Reason Onset Date Comments Refill Request 12/10/2023 Reason Comments Established Patient Prostate issues foll ow up Reason Comments New Patient Evaluation Specialty Diagnoses / Procedures Referred By Contac t Referred To Contact Diagnoses Rectal mass Procedures CONSULT TO HEMATOLOGY/ONCOLOGY OFFICE/OUTPATIENT [facility] 60 MINUTES Cody Carrington MD [facility] [place] [address] Referral ID Status Reason Start Date Expiration Date V isits Requested Visits Authorized [id number] Closed PCP Requested Referral 12/04/2023 12/03/2024 1 [...] &/JOINT [place] [address] [place] [address] Molecular & Functional Imaging [address] [place] [address] Referral ID Status Reason Start Date Expiration Date V isits Requested Visits Authorized [id number] Closed Auto-Generate d Referral 05/05/2023 05/04/2024 1 1 Reason Comments Patient Question note to return to wo rk and FMLA paperwork Reason Onset Date Comments Fatigue Immunizations 02/26/2024 Flu vaccination Reason Comments Imm/Inj Specialty Diagnoses / Procedures Referred By Contac t Referred To Contact Diagnoses Prostate cancer (HCC) Procedures LEUPROLIDE [place] [address] [place] [id number] Nirmal [facility] [address] [place] [address] Referral ID Status Reason Start Date Expiration Date V isits Requested Visits Authorized [id number] Authorized 02/13/2024 05/19/2024 4 4 Reason Comments Follow Up Pt is here for his b iopsy results of the prostate Specialty Diagnoses / Procedures Referred By Fideliaac t Referred To Contact CT IMAGING Diagnoses Hydronephrosis, unspecified hydronephrosis type Procedures CT ABD/PEL WO IVCON CT ABD & PELVIS W/O CONTRAST Devin Cortes MD [address] [place] [place] [id number] [place] [address] Referral ID Status Reason Start Date Expiration Date Visits Requested Visits Authorized [id number] Authorized Auto-Generat ed Referral 05/04/2024 3 3 Reason Onset Date Comments Orders 03/01/2024 Reason Comments Hydronephrosis Reason Comments Afternoon Nanny - ED Follow Up Reason Comments Patient Education Reason Onset Date Comments Consult Simulation Request Form 03/01/2024 Specialty Diagnoses / Procedures Referred By Contac t Referred To Contact Radiation Oncology Diagnoses Prostate cancer (HCC) Procedures RAD/ONC CONSULT OFFICE/OUTPATIENT [facility] [address] [place] [address] [place] [address] Referral ID Status Reason Start Date Expiration Date V isits Requested Visits Authorized [id number] Closed PCP Requested Referral 02/27/2024 02/26/2025 1 [...] TIME W/IMAGE COMPLETE Radha Larsen MD [address] [place] [address] Phone: tel: fax: [place] [address] Referral ID Status Reason Start Date Expiration Date V isits Requested Visits Authorized [id number] Closed Auto-Generate d Referral 07/15/2024 08/14/2025 1 [...] follow-up Procedures PC EST Cody Guzman MD [address] [place] [address] Phone: tel: fax: Cody Carrington MD [address] [facility] [place] [address] Phone: tel: fax: Referral ID Status Reason Start Date Expiration Date V isits Requested Visits Authorized [id number] Closed Patient Cleared - INN Insurance Found 01/04/2025 04/04/2025 1 0 Care Teams (unrecognized sec tion and content) Adhesive Bandage Making Operator Relationship Specialty Start Date End Date Cody Carrington MD [address] [place] [address] PCP - General Internal Medicine 03/08/14 Adhesive Bandage Making Operator Relationship Specialty Start Date End Date Cody Carrington MD [address] [place] [address] PCP - General Internal Medicine 03/08/14 Adhesive Bandage Making Operator Relationship Specialty Start Date End Date Cody Carrington MD [address] [place] [address] PCP - General Internal Medicine 03/08/14 Adhesive Bandage Making Operator Relationship Specialty Start Date End Date Cody Carrington MD [address] [place] [address] PCP - General Internal Medicine 03/08/14 Adhesive Bandage Making Operator Relationship Specialty Start Date End Date Cody Carrington MD [address] [place] [address] PCP - General Internal Medicine 03/08/14 Adhesive Bandage Making Operator Relationship Specialty Start Date End Date Cody Carrington MD [address] [place] [address] PCP - General Internal Medicine 03/08/14 Adhesive Bandage Making Operator Relationship Specialty Start Date End Date Cody Carrington MD [address] [place] [address] PCP - General Internal Medicine 03/08/14 Adhesive Bandage Making Operator Relationship Specialty Start Date End Date Cody Carrington MD [address] [facility] [place] [address] PCP - General Internal Medicine 03/08/14 Adhesive Bandage Making Operator Relationship Specialty Start Date End Date Cody Carrington MD [address] [facility] [place] [address] PCP - General Internal Medicine 03/08/14 Adhesive Bandage Making Operator Relationship Specialty Start Date End Date Cody Carrington MD [address] [facility] [place] [address] PCP - General Internal Medicine 03/08/14 Adhesive Bandage Making Operator Relationship Specialty Start Date End Date Cody Carrington MD [address] [facility] [place] [address] PCP - General Internal Medicine 03/08/14 Adhesive Bandage Making Operator Relationship Specialty Start Date End Date Cody Carrington MD [address] [facility] [place] [address] PCP - General Internal Medicine 03/08/14 Adhesive Bandage Making Operator Relationship Specialty Start Date End Date Cody Carrington MD [address] [facility] [place] [address] PCP - General Internal Medicine 03/08/14 Adhesive Bandage Making Operator Relationship Specialty Start Date End Date Cody Carrington MD [address] [facility] [place] [address] PCP - General Internal Medicine 03/08/14 Team [...] Valentina Raza , DO Attending Provider Active Adhesive Bandage Making Operator Relationship Specialty Start Date End Date Cody Carrington MD [address] [place], [place] [address] PCP - General Internal Medicine 03/08/14 Adhesive Bandage Making Operator Relationship Specialty Start Date End Date Cody Carrington MD [address] [place], [place] [address] PCP - General Internal Medicine 03/08/14 Adhesive Bandage Making Operator Relationship Specialty Start Date End Date Cody Carrington MD [address] [place], [place] [address] PCP - General Internal Medicine 03/08/14 Adhesive Bandage Making Operator Relationship Specialty Start Date End Date Cody Carrington MD [address] [place], [place] [address] PCP - General Internal Medicine 03/08/14 Adhesive Bandage Making Operator Relationship Specialty Start Date End Date Cody Carrington MD [address] [place], [place] [address] PCP - General Internal Medicine 03/08/14 Sruthi Larkin [address] [place] [address] Specialty Drum Drier Cardiology 10/21/23 Adhesive Bandage Making Operator Relationship Specialty Start Date End Date Cody Carrington MD [address] [facility] [place] [address] PCP - General Internal Medicine 03/08/14 Sruthi Larkin [address] [place] [address] Specialty Drum Drier Cardiology 10/21/23 Adhesive Bandage Making Operator Relationship Specialty Start Date End Date Cody Carrington MD [address] [facility] [place] [address] PCP - General Internal Medicine 03/08/14 Sruthi Larkin [address] [place] [address] Specialty Drum Drier Cardiology 10/21/23 Adhesive Bandage Making Operator Relationship Specialty Start Date End Date Cody Carrington MD [address] [facility] [place] [address] PCP - General Internal Medicine 03/08/14 Sruthi Larkin [address] [place] [address] Specialty Drum Drier Cardiology 10/21/23 Adhesive Bandage Making Operator Relationship Specialty Start Date End Date Cody Carrington MD [address] [facility] [place] [address] PCP - General Internal Medicine 03/08/14 Sruthi Larkin [address] [place] [address] Specialty Drum Drier Cardiology 10/21/23 Adhesive Bandage Making Operator Relationship Specialty Start Date End Date Cody Carrington MD [address] [facility] [place] [address] PCP - General Internal Medicine 03/08/14 Sruthi Larkin [address] [place] [address] Specialty Drum Drier Cardiology 10/21/23 Adhesive Bandage Making Operator Relationship Specialty Start Date End Date Cody Carrington MD [address] [facility] [place] [address] PCP - General Internal Medicine 03/08/14 Sruthi Larkin [address] [place] [address] Specialty Drum Drier Cardiology 10/21/23 Adhesive Bandage Making Operator Relationship Specialty Start Date End Date Cody Carrington MD [address] [facility] [place] [address] PCP - General Internal Medicine 03/08/14 Sruthi Larkin [address] [place] [place] [address] Specialty Drum Drier Cardiology 10/21/23 Adhesive Bandage Making Operator Relationship Specialty Start Date End Date Cody Carrington MD [address] [facility] [place] [address] PCP - General Internal Medicine 03/08/14 Sruthi Larkin [address] [place] [place] [address] Specialty Drum Drier Cardiology 10/21/23 Adhesive Bandage Making Operator Relationship Specialty Start Date End Date Cody Carrington MD [address] [facility] [place] [address] PCP - General Internal Medicine 03/08/14 Sruthi Larkin [address] [place] [address] Specialty Drum Drier Cardiology 10/21/23 Adhesive Bandage Making Operator Relationship Specialty Start Date End Date Cody Carrington MD [address] [facility] [place] [address] PCP - General Internal Medicine 03/08/14 Srtuhi Larkin [address] [place] [address], [place] [address] Specialty Drum Drier Cardiology 10/21/23 Adhesive Bandage Making Operator Relationship Specialty Start Date End Date Cody Carrington MD [address] [facility] [place] [address] PCP - General Internal Medicine 03/08/14 Sruthi Larkin [address] [place] [address] Specialty Drum Drier Cardiology 10/21/23 Adhesive Bandage Making Operator Relationship Specialty Start Date End Date Cody Carrington MD [address] [facility] [place] [address] PCP - General Internal Medicine 03/08/14 Sruthi Larkin [address] [place] [address] Specialty Drum Drier Cardiology 10/21/23 Adhesive Bandage Making Operator Relationship Specialty Start Date End Date Cody Carrington MD [address] [facility] [place] [address] PCP - General Internal Medicine 03/08/14 Sruthi Larkin [address] [place] [address] Specialty Drum Drier Cardiology 10/21/23 Adhesive Bandage Making Operator Relationship Specialty Start Date End Date Cody Carrington MD [address] [facility] [place] [address] PCP - General Internal Medicine 03/08/14 Sruthi Larkin [address] [place] [address], [place] [address] Specialty Drum Drier Cardiology 10/21/23 Adhesive Bandage Making Operator Relationship Specialty Start Date End Date Cody Carrington MD [address] [facility] [place] [address] PCP - General Internal Medicine 03/08/14 Sruthi Larkin [address] [place] [address] Specialty Drum Drier Cardiology 10/21/23 Johan Payne MD [address] [place] [address] Hematology/Oncology 02/16/24 Adhesive Bandage Making Operator Relationship Specialty Start Date End Date Cody Carrington MD [address] [facility] [place] [address] PCP - General Internal Medicine 03/08/14 Sruthi Larkin [address] [place] [address] Specialty Drum Drier Cardiology 10/21/23 Johan Payne MD [address] [place] [address] Hematology/Oncology 02/16/24 Adhesive Bandage Making Operator Relationship Specialty Start Date End Date Cody Carrington MD [address] [place] [address] PCP - General Internal Medicine 03/08/14 Sruthi Larkin [address] [place] [address] Specialty Drum Drier Cardiology 10/21/23 Johan Payne MD [address] [place] [address] Hematology/Oncology 02/16/24 Adhesive Bandage Making Operator Relationship Specialty Start Date End Date Cody Carrington MD [address] [place] [address] PCP - General Internal Medicine 03/08/14 Sruthi Larkin [address] [place] [address] Specialty Drum Drier Cardiology 10/21/23 Johan Payne MD [address] [place] [address] Hematology/Oncology 02/16/24 Adhesive Bandage Making Operator Relationship Specialty Start Date End Date Cody Carrington MD [address] [place] [address] PCP - General Internal Medicine 03/08/14 Sruthi Larkin [address] [place] [address] Specialty Drum Drier Cardiology 10/21/23 Johan Payne MD [address] [place] [address] Hematology/Oncology 02/16/24 Adhesive Bandage Making Operator Relationship Specialty Start Date End Date Cody Carrington MD [address] [facility] [place] [address] PCP - General Internal Medicine 03/08/14 Sruthi Larkin [address] [place] [place] [address] Specialty Drum Drier Cardiology 10/21/23 Johan Payne MD [address] [place] [address] Hematology/Oncology 02/16/24 Adhesive Bandage Making Operator Relationship Specialty Start Date End Date Cody Carrington MD [address] [facility] [place] [address] PCP - General Internal Medicine 03/08/14 Sruhti Larkin [address] [place] [address] Specialty Drum Drier Cardiology 10/21/23 Johan Payne MD [address] [place] [address] Hematology/Oncology 02/16/24 Adhesive Bandage Making Operator Relationship Specialty Start Date End Date Cody Carrington MD [address] [facility] [place] [address] PCP - General Internal Medicine 03/08/14 Sruthi Larkin [address] [place] [address] Specialty Drum Drier Cardiology 10/21/23 Johan Payne MD [address] [place] [address] Hematology/Oncology 02/16/24 Adhesive Bandage Making Operator Relationship Specialty Start Date End Date Cody Carrington MD [address] [facility] [place] [address] PCP - General Internal Medicine 03/08/14 Sruthi Larkin [address] [place] [address] Specialty Drum Drier Cardiology 10/21/23 Johan Payne MD [address] [place] [address] Hematology/Oncology 02/16/24 Adhesive Bandage Making Operator Relationship Specialty Start Date End Date Cody Carrington MD [address] [facility] [place] [address] PCP - General Internal Medicine 03/08/14 Sruthi Larkin [address] [place] [address] Specialty Drum Drier Cardiology 10/21/23 Johan Payne MD [address] [place] [address] Hematology/Oncology 02/16/24 Adhesive Bandage Making Operator Relationship Specialty Start Date End Date Cody Carrington MD [address] [place] [address] PCP - General Internal Medicine 03/08/14 Sruthi Larkin [address] [place] [address] Specialty Drum Drier Cardiology 10/21/23 Johan Payne MD [address] [place] [address] Hematology/Oncology 02/16/24 Adhesive Bandage Making Operator Relationship Specialty Start Date End Date Cody Carrington MD [address] [place] [address] PCP - General Internal Medicine 03/08/14 Sruthi Larkin [address] [place] [address] Specialty Drum Drier Cardiology 10/21/23 Johan Payne MD [address] [place] [address] Hematology/Oncology 02/16/24 Adhesive Bandage Making Operator Relationship Specialty Start Date End Date Cody Carrington MD [address] [place] [address] PCP - General Internal Medicine 03/08/14 Sruthi Larkin [address] [place] [address] Specialty Drum Drier Cardiology 10/21/23 Johan Payne MD [address] [place] [address] Hematology/Oncology 02/16/24 Adhesive Bandage Making Operator Relationship Specialty Start Date End Date Cody Carrington MD [address] [place] [address] PCP - General Internal Medicine 03/08/14 Sruthi Larkin [address] [place] [address] Specialty Drum Drier Cardiology 10/21/23 Johan Payne MD [address] [place] [address] Hematology/Oncology 02/16/24 Adhesive Bandage Making Operator Relationship Specialty Start Date End Date Cody Carrington MD [address] [facility] [place] [address] PCP - General Internal Medicine 03/08/14 Sruthi Larkin [address] [place] [address] Specialty Drum Drier Cardiology 10/21/23 Johan Payne MD [address] [place] [address] Hematology/Oncology 02/16/24 Adhesive Bandage Making Operator Relationship Specialty Start Date End Date Cody Carrington MD [address] [place] [address] PCP - General Internal Medicine 03/08/14 Sruthi Larkin [address] [place] [address] Specialty Drum Drier Cardiology 10/21/23 Johan Payne MD [address] [place] [address] Hematology/Oncology 02/16/24 Adhesive Bandage Making Operator Relationship Specialty Start Date End Date Cody Carrington MD [address] [place] [address] PCP - General Internal Medicine 03/08/14 Sruthi Larkin [address] [place] [address] Specialty Drum Drier Cardiology 10/21/23 Johan Payne MD [address] [place] [address] Hematology/Oncology 02/16/24 Adhesive Bandage Making Operator Relationship Specialty Start Date End Date Cody Carrington MD [address] [facility] [place] [address] PCP - General Internal Medicine 03/08/14 Sruthi Larkin [address] [place] [address] Specialty Drum Drier Cardiology 10/21/23 Johan Payne MD [address] [place] [address] Hematology/Oncology 02/16/24 Adhesive Bandage Making Operator Relationship Specialty Start Date End Date Cody Carrington MD [address] [facility] [place] [address] PCP - General Internal Medicine 03/08/14 Sruthi Larkin [address] [place] [address] Specialty Drum Drier Cardiology 10/21/23 Johan Payne MD [address] [place] [address] Hematology/Oncology 02/16/24 Adhesive Bandage Making Operator Relationship Specialty Start Date End Date Cody Carrington MD [address] [place] [address] PCP - General Internal Medicine 03/08/14 Sruthi Larkin [address] [place] [address] Specialty Drum Drier Cardiology 10/21/23 Johan Payne MD [address] [place] [address] Hematology/Oncology 02/16/24 Adhesive Bandage Making Operator Relationship Specialty Start Date End Date Cody Carrington MD [address] [facility] [place] [address] PCP - General Internal Medicine 03/08/14 Sruthi Larkin [address] [place] [address] Specialty Drum Drier Cardiology 10/21/23 Johan Payne MD [address] [place] [address] Hematology/Oncology 02/16/24 Adhesive Bandage Making Operator Relationship Specialty Start Date End Date Cody Carrington MD [address] [facility] [place] [address] PCP - General Internal Medicine 03/08/14 Sruthi Larkin [address] [place] [address] Specialty Drum Drier Cardiology 10/21/23 Johan Payne MD [address] [place] [address] Hematology/Oncology 02/16/24 Adhesive Bandage Making Operator Relationship Specialty Start Date End Date Cody Carrington MD [address] [facility] [place] [address] PCP - General Internal Medicine 03/08/14 Sruthi Larkin [address] [place] [place] [address] Specialty Drum Drier Cardiology 10/21/23 Johan Payne MD [address] [place] [address] Hematology/Oncology 02/16/24 Adhesive Bandage Making Operator Relationship Specialty Start Date End Date Cody Carrington MD [address] [facility] [place] [address] PCP - General Internal Medicine 03/08/14 Sruthi Larkin [address] [place] [address] Specialty Drum Drier Cardiology 10/21/23 Johan Payne MD [address] [place] [address] Hematology/Oncology 02/16/24 Adhesive Bandage Making Operator Relationship Specialty Start Date End Date Cody Carrington MD [address] [facility] [place] [address] PCP - General Internal Medicine 03/08/14 Sruthi Larkin [address] [place] [address] Specialty Drum Drier Cardiology 10/21/23 Johan Payne MD [address] [place] [address] Hematology/Oncology 02/16/24 Leela Drake, HOSPITAL ADMINISTRATIVE ASSISTANT.[employer] [address] [place] [address] Emblem Maker Internal Medicine 04/12/24 Adhesive Bandage Making Operator Relationship Specialty Start Date End Date Cody Carrington MD [address] [place] [address] PCP - General Internal Medicine 03/08/14 Sruthi Larkin [address] [place] [address] Specialty Drum Drier Cardiology 10/21/23 Johan Payne MD [address] [place] [address] Hematology/Oncology 02/16/24 Leela Drake, HOSPITAL ADMINISTRATIVE ASSISTANT.[employer] [address] [place] [address] Emblem Maker Internal Medicine 04/12/24 Adhesive Bandage Making Operator Relationship Specialty Start Date End Date Cody Carrington MD [address] [place] [address] PCP - General Internal Medicine 03/08/14 Sruthi Larkin [address] [place] [address] Specialty Drum Drier Cardiology 10/21/23 Johan Panye MD [address] [place] [address] Hematology/Oncology 02/16/24 Leela Drake, HOSPITAL ADMINISTRATIVE ASSISTANT.[employer] [address] [place] [address] Emblem Maker Internal Medicine 04/12/24 Adhesive Bandage Making Operator Relationship Specialty Start Date End Date Cody Carrington MD [address] [place] [address] PCP - General Internal Medicine 03/08/14 Sruthi Larkin [address] [facility] [address] [place] [address] [address] Specialty Drum Drier Cardiology 10/21/23 Johan Payne MD [address] [place] [address] Hematology/Oncology 02/16/24 Leela Drake, HOSPITAL ADMINISTRATIVE ASSISTANT.[employer] [address] [place] [address] Emblem Maker Internal Medicine 04/12/24 Adhesive Bandage Making Operator Relationship Specialty Start Date End Date Cody Carrington MD [address] [place] [address] PCP - General Internal Medicine 03/08/14 Sruthi Larkin [address] [place] [address] Specialty Drum Drier Cardiology 10/21/23 Johan Payne MD [address] [place] [address] Hematology/Oncology 02/16/24 Leela Drake, HOSPITAL ADMINISTRATIVE ASSISTANT.[employer] [address] [facility] [place] [address] Emblem Maker Internal Medicine 04/12/24 Adhesive Bandage Making Operator Relationship Specialty Start Date End Date Cody Carrington MD [address] [place] [address] PCP - General Internal Medicine 03/08/14 Sruthi Larkin [address] [place] [address] Specialty Drum Drier Cardiology 10/21/23 Johan Payne MD [address] [place] [address] Hematology/Oncology 02/16/24 Leela Drake, HOSPITAL ADMINISTRATIVE ASSISTANT.[employer] [address] [place] [address] Emblem Maker Internal Medicine 04/12/24 Adhesive Bandage Making Operator Relationship Specialty Start Date End Date Cody Carrington MD [address] [place] [address] PCP - General Internal Medicine 03/08/14 Sruthi Larkin [address] [place] [address] Specialty Drum Drier Cardiology 10/21/23 Johan Payne MD [address] [place] [address] Hematology/Oncology 02/16/24 Leela Drake, HOSPITAL ADMINISTRATIVE ASSISTANT.[employer] [address] [place] [address] Emblem Maker Internal Medicine 04/12/24 Adhesive Bandage Making Operator Relationship Specialty Start Date End Date Cody Carrington MD [address] [place] [address] PCP - General Internal Medicine 03/08/14 Sruthi Larkin [address] [place] [address] Specialty Drum Drier Cardiology 10/21/23 Johan Payne MD [address] [place] [address] Hematology/Oncology 02/16/24 Leela Drake, HOSPITAL ADMINISTRATIVE ASSISTANT.[employer] [address] [place] [address] Emblem Maker Internal Medicine 04/12/24 Adhesive Bandage Making Operator Relationship Specialty Start Date End Date Cody Carrington MD [address] [place] [address] PCP - General Internal Medicine 03/08/14 Sruthi Larkin [address] [place] [address] Specialty Drum Drier Cardiology 10/21/23 Johan Payne MD [address] [place] [address] Hematology/Oncology 02/16/24 Leela Drake, HOSPITAL ADMINISTRATIVE ASSISTANT.[employer] [address] [facility] [place] [address] [facility] Internal Medicine 04/12/24 Adhesive Bandage Making Operator Relationship Specialty Start Date End Date Cody Carrington MD [address] [facility] [place] [address] PCP - General Internal Medicine 03/08/14 Sruthi Larkin [address] [place] [address] Specialty Drum Drier Cardiology 10/21/23 Johan Payne MD [address] [place] [address] Hematology/Oncology 02/16/24 Leela Drake, HOSPITAL ADMINISTRATIVE ASSISTANT.[employer]GER [address] [facility] [place] [address] [facility] Internal Medicine 04/12/24 Adhesive Bandage Making Operator Relationship Specialty Start Date End Date Cody Carrington MD [address] [facility] [place] [address] PCP - General Internal Medicine 03/08/14 Sruthi Larkin [address] [place] [address] Specialty Drum Drier Cardiology 10/21/23 Johan Payne MD [address] [place] [address] Hematology/Oncology 02/16/24 Leela Drake, HOSPITAL ADMINISTRATIVE ASSISTANT.[employer] [address] [place] [address] Emblem Maker Internal Medicine 04/12/24 Adhesive Bandage Making Operator Relationship Specialty Start Date End Date Cody Carrington MD [address] [place] [address] PCP - General Internal Medicine 03/08/14 Sruthi Larkin [address] [place] [address] Specialty Drum Drier Cardiology 10/21/23 Johan Payne MD [address] [place] [address] Hematology/Oncology 02/16/24 Leela Drake, HOSPITAL ADMINISTRATIVE ASSISTANT.[employer] [address] [place] [address] Emblem Maker Internal Medicine 04/12/24 Adhesive Bandage Making Operator Relationship Specialty Start Date End Date Cody Carrington MD [address] [place] [address] PCP - General Internal Medicine 03/08/14 Sruthi Larkin [address] [place] [address] Specialty Drum Drier Cardiology 10/21/23 Johan Payne MD [address] [place] [address] Hematology/Oncology 02/16/24 Leela Drake, HOSPITAL ADMINISTRATIVE ASSISTANT.[employer] [address] [place] [address] Emblem Maker Internal Medicine 04/12/24 Adhesive Bandage Making Operator Relationship Specialty Start Date End Date Cody Carrington MD [address] [facility] [place] [address] PCP - General Internal Medicine 03/08/14 Sruthi Larkin [address] [facility] [address] [place] [address] Specialty Drum Drier Cardiology 10/21/23 Johan Payne MD [address] [place] [address] Hematology/Oncology 02/16/24 Leela Drake, HOSPITAL ADMINISTRATIVE ASSISTANT.[employer]GER [address] [facility] [place] [address] Emblem Maker Internal Medicine 04/12/24 Adhesive Bandage Making Operator Relationship Specialty Start Date End Date Cody Carrington MD [address] [facility] [place] [address] PCP - General Internal Medicine 03/08/14 Sruthi Larkin [address] [facility] [place] [address] Specialty Drum Drier Cardiology 10/21/23 Johan Payne MD [address] [place] [address] Hematology/Oncology 02/16/24 Leela Drake, HOSPITAL ADMINISTRATIVE ASSISTANT.[employer]GER [address] [facility] [place] [address] Emblem Maker Internal Medicine 04/12/24 Adhesive Bandage Making Operator Relationship Specialty Start Date End Date Cody Carrington MD [address] [place] [address] PCP - General Internal Medicine 03/08/14 Sruthi Larkin [address] [place] [address] Specialty Drum Drier Cardiology 10/21/23 Johan Payne MD [address] [place] [address] Hematology/Oncology 02/16/24 Leela Drake, HOSPITAL ADMINISTRATIVE ASSISTANT.[employer]GER [address] [place] [address] Emblem Maker Internal Medicine 04/12/24 Adhesive Bandage Making Operator Relationship Specialty Start Date End Date Cody Carrington MD [address] [place] [address] PCP - General Internal Medicine 03/08/14 Sruthi Larkin [address] [facility] [address] [place] [address] Specialty Drum Drier Cardiology 10/21/23 Johan Payne MD [address] [place] [address] Hematology/Oncology 02/16/24 Leela Drake, HOSPITAL ADMINISTRATIVE ASSISTANT.[employer]GER [address] [place] [address] Emblem Maker Internal Medicine 04/12/24 Adhesive Bandage Making Operator Relationship Specialty Start Date End Date Cody Carrington MD [address] [place] [address] PCP - General Internal Medicine 03/08/14 Sruthi Larkin [address] [place] [address] Specialty Drum Drier Cardiology 10/21/23 Johan Payne MD [address] [place] [address] Hematology/Oncology 02/16/24 Leela Drake, HOSPITAL ADMINISTRATIVE ASSISTANT.[employer]GER [address] [facility] [place] [address] Emblem Maker Internal Medicine 04/12/24 Adhesive Bandage Making Operator Relationship Specialty Start Date End Date Cody Carrington MD [address] [facility] [place] [address] PCP - General Internal Medicine 03/08/14 Sruthi Larkin [address] [place] [address] Specialty Drum Drier Cardiology 10/21/23 Johan Payne MD [address] [place] [address] Hematology/Oncology 02/16/24 Leela Drake, HOSPITAL ADMINISTRATIVE ASSISTANT.[employer]IGGER [address] [facility] [place] [address] Emblem Maker Internal Medicine 04/12/24 Adhesive Bandage Making Operator Relationship Specialty Start Date End Date Cody Carrington MD [address] [facility] [place] [address] PCP - General Internal Medicine 03/08/14 Sruthi Larkin [address] [place] [address] Specialty Drum Drier Cardiology 10/21/23 Johan Payne MD [address] [place] [address] Hematology/Oncology 02/16/24 Leela Drake, HOSPITAL ADMINISTRATIVE ASSISTANT.[employer]IGGER [address] [place] [address] Emblem Maker Internal Medicine 04/12/24 Adhesive Bandage Making Operator Relationship Specialty Start Date End Date Cody Carrington MD [address] [place] [address] PCP - General Internal Medicine 03/08/14 Sruthi Larkin [address] [place] [address] Specialty Drum Drier Cardiology 10/21/23 Johan Payne MD [address] [place] [address] Hematology/Oncology 02/16/24 Leela Drake, HOSPITAL ADMINISTRATIVE ASSISTANT.[employer]IGGER [address] [place] [address] Emblem Maker Internal Medicine 04/12/24 Adhesive Bandage Making Operator Relationship Specialty Start Date End Date Cody Carrington MD [address] [place] [address] PCP - General Internal Medicine 03/08/14 Sruthi Larkin [address] [place] [address] Specialty Drum Drier Cardiology 10/21/23 Johan Payne MD [address] [place] [address] Hematology/Oncology 02/16/24 Leela Drake, HOSPITAL ADMINISTRATIVE ASSISTANT.[employer]ONE [employer]MAN [employer] RIGGER [address] [facility] [place] [address] Emblem Maker Internal Medicine 04/12/24 Adhesive Bandage Making Operator Relationship Specialty Start Date End Date Cody Carrington MD [address] [facility] [place] [address] PCP - General Internal Medicine 03/08/14 Sruthi Larkin [address] [place] [address] Specialty Drum Drier Cardiology 10/21/23 Johan Payne MD [address] [place] [address] Hematology/Oncology 02/16/24 Leela Drake, HOSPITAL ADMINISTRATIVE ASSISTANT.[employer]MAN [employer]IGGER [address] [facility] [place] [address] Emblem Maker Internal Medicine 04/12/24 Adhesive Bandage Making Operator Relationship Specialty Start Date End Date Cody Carrington MD [address] [facility] [place] [address] PCP - General Internal Medicine 03/08/14 Sruthi Larkin [address] [place] [address] Specialty Drum Drier Cardiology 10/21/23 Johan Payne MD [address] [place] [address] Hematology/Oncology 02/16/24 Leela Drake, HOSPITAL ADMINISTRATIVE ASSISTANT.[employer] RIGGER [address] [facility] [place] [address] Emblem Maker Internal Medicine 04/12/24 Adhesive Bandage Making Operator Relationship Specialty Start Date End Date Cody Carrington MD [address] [facility] [place] [address] PCP - General Internal Medicine 03/08/14 Sruthi Larkin [address] [facility] [address] [place], [place] [address] Specialty Drum Drier Cardiology 10/21/23 Johan Payne MD [address] [place] [address] Hematology/Oncology 02/16/24 Leela Drake, HOSPITAL ADMINISTRATIVE ASSISTANT.[employer]IGGER [address] [facility] [place] [address] Emblem Maker Internal Medicine 04/12/24 Team Status: Active Member [...] November 22, 2024 End: November 22, 2024 Adhesive Bandage Making Operator Relationship Specialty Start Date End Date Cody Carrington MD [address] [facility] [place] [address] PCP - General Internal Medicine 03/08/14 Sruthi Larkin [address] [place], [place] [id number] Specialty Drum Drier Cardiology 10/21/23 Johan Payne MD [address] [place], [place] [address] Hematology/Oncology 02/16/24 Leela Drake, HOSPITAL ADMINISTRATIVE ASSISTANT.[facility] [address] [place], [place] [id number] Emblem Maker Internal Medicine 04/12/24 Goals (unrecognized section and content) Goals may be documented in a n alternate sectionGoals may be documented in an alternate section (unrecognized sect ion and content) No Status Records FoundNo Status Records FoundNo Status Records FoundNo Status Records Found INFORMATION SOURCE (unrecogn ized section and content) DATE CREATED AUTHOR 10/24/2023 [facility] DATE CREATED AUTHOR AUTHOR'S ORGANIZ ATION 11/24/2024 [facility] DATE CREATED AUTHOR AUTHOR'S ORGANIZ ATION 02/25/2025 [facility] DATE CREATED AUTHOR AUTHOR'S ORGANIZ ATION 02/27/2025 [facility] Ce nter FOR RECORDS PERTAINING TO [...] BE BASED ON THE PRIMARY CLINICAL RECORDS. [employer] provides no warranty or guarantee of the accuracy or completeness of information in this document.
[2025-04-29] MEDS: 0.9% Saline Lock 10 ML Syringe IV (01:21)
--- NOTE | 2025-04-29 01:45 | PCM.HP.STD ---
HPI - General General Date of Admission: 04/28/25 HPI Narrative CLINT MONIQUE, is a 84 M with medical history significant for metastatic prostate cancer on oral Xtandi, A-fib on Coumadin and hypertension who came from home with cold symptoms as well as generalized weakness and difficulty walking and taking care of himself. His had COVID-19 at home, and he then started having cold symptoms and became weak. In the ED the patient was positive COVID-19 PCR. He denies any cough or fever. No headache or abdominal pain or diarrhea. Patient was unable to get out of bed and walk around. Patient will be admitted to the hospital with COVID-19 infection related debility required physical therapy recommending therapy. 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 Prostate CA Erectile dysfunction Elevated PSA Atrial fibrillation CKD (chronic kidney disease) Obesity (BMI 30.0-34.9) Anxiety Hypothyroidism Hyperlipidemia BPH (benign prostatic hyperplasia) Hyperglycemia Hypertension Home Medications ?Medication ?Instructions ?Recorded ?Last Taken ?Type atorvastatin 40 mg tablet 40 mg PO QHS cholesterol 07/08/19 06/14/23 History losartan 100 mg tablet 100 mg PO QHS bp 07/08/19 06/15/23 History valacyclovir 500 mg tablet 500 mg PO DAILY herpes 07/03/20 06/15/23 History hydroxyzine HCl 25 mg tablet 25 mg PO QHS anxiety 06/16/23 06/15/23 History tamsulosin 0.4 mg capsule 0.4 mg PO BID prostate 06/16/23 06/14/23 History finasteride 5 mg tablet 5 mg PO DAILY 09/22/23 Unknown History ondansetron 8 mg disintegrating 8 mg PO Q8H PRN PRN nausea/vomiting 04/15/24 Unknown History tablet enzalutamide 80 mg tablet (Xtandi) 80 mg PO QDAY 11/22/24 Unknown History hydralazine 10 mg tablet 10 mg PO BID #60 tabs 04/18/25 Unknown Rx amlodipine 5 mg tablet 5 mg PO DAILY 04/28/25 Unknown History levothyroxine 125 mcg tablet 125 mcg PO DAILY 04/28/25 Unknown History pantoprazole 20 mg tablet,delayed 20 mg PO DAILY 04/28/25 Unknown History release prochlorperazine maleate 10 mg 10 mg PO Q6H PRN PRN nausea 04/28/25 Unknown History tablet warfarin 6 mg tablet (Jantoven) 6 mg PO QWEEK 04/28/25 Unknown History Allergy/AdvReac Type Severity Reaction Status Date / Time No Known Allergies Allergy Verified 04/28/25 21:45 Family History Other Hyperlipidemia Hypertension Thyroid disorder Surgical History History of stent insertion of renal artery History of shoulder surgery Social History household members: spouse housing: house Smoking Status: Former smoker alcohol intake: never substance use type: does not use ROS Constitutional Constitutional: Reports poor appetite and weakness; Denies fever(s) ENT HEENT: Reports none Cardiovascular Cardiovascular: Denies chest pain or dyspnea Respiratory/Chest Respiratory/Chest: Denies cough or wheezing Gastrointestinal Gastrointestinal: Denies abdominal pain or change in bowel habits Genitourinary Genitourinary: Denies change in urinary stream or dysuria Musculoskeletal Musculoskeletal: Denies arthralgias or myalgias Integumentary Integumentary: Reports none Neurologic Neurologic: Denies abnormal speech, dizziness, focal weakness, loss of vision or numbness Hematologic/Lymphatic Hematologic/Lymphatic: Reports none Patient's Goals Of Care . What would you like to achieve or improve as a result of your hospital stay?: Get better Vital Signs Vital Signs Vital Signs: 04/28/25 21:38 04/28/25 21:41 04/28/25 21:42 Temperature 99 F 99 F Temperature Source Oral Oral Pulse Rate 61 59 L Respiratory Rate 14 19 H Respiratory Effort Normal Non-Labored Respiratory Depth Respiratory Pattern Normal Blood Pressure 189/78 H 189/78 H Blood Pressure Mean 115 115 Blood Pressure Source Blood Pressure Position Blood Pressure Location Pulse Ox 95 97 Oxygen Delivery Method Room Air Room Air 04/28/25 22:41 04/28/25 23:00 04/28/25 23:40 Temperature 99.1 F 99 F 99.1 F Temperature Source Oral Oral Pulse Rate 55 L 61 55 L Respiratory Rate 20 H 20 H 20 H Respiratory Effort Respiratory Depth Respiratory Pattern Blood Pressure 172/70 H 169/78 H 172/70 H Blood Pressure Mean 104 108 104 Blood Pressure Source Blood Pressure Position Blood Pressure Location Pulse Ox 96 94 96 Oxygen Delivery Method Room Air Room Air 04/29/25 01:05 04/29/25 01:05 Temperature 97.6 F L Temperature Source Oral Pulse Rate 68 Respiratory Rate 16 Respiratory Effort Normal Non-Labored Respiratory Depth Normal Respiratory Pattern Normal Blood Pressure 177/83 H Blood Pressure Mean 114 Blood Pressure Source Monitor Blood Pressure Position Semi-Fowlers Blood Pressure Location Left Arm Pulse Ox 98 Oxygen Delivery Method Room Air Room Air Weight Weight: 91 kg Body Mass Index (BMI) 31.4 Physical Exam Const alert and oriented x3 HEENT normocephalic and head/scalp atraumatic Eyes EOMs intact bilaterally; Negative for no scleral icterus Neck supple Resp normal respiratory effort and clear to auscultation bilaterally Cardio regular rate and regular rhythm; Negative for no murmurs GI normal to inspection, nondistended, normoactive bowel sounds; Negative for non-tender no CVA tenderness Extremity no joint enlargement and no pedal edema Skin no rashes or lesions noted Neuro oriented x3 and moves all extremities Results Lab / Micro Data 04/28/25 21:19 04/28/25 21:19 Labs: Laboratory Results - last 24 hr 04/28/25 21:19: WBC 7.0, RBC 3.85 L, Hgb 13.6, Hct 38.6 L, MCV 100.3 H, MCH 35.3 H, MCHC 35.2, RDW Std Deviation 46.9 H, RDW Coeff of Briana 12.7, Plt Count 185, MPV 10.8, Immature Gran % (Auto) 0.300, Neut % (Auto) 71.9 H, Lymph % (Auto) 12.5 L, [place] % (Auto) 14.4 H, Eos % (Auto) 0.3, Baso % (Auto) 0.6, Absolute Neuts (auto) 5.0, Absolute Lymphs (auto) 0.87, Nucleated RBC % 0, PT Cancelled, INR Cancelled, Sodium 132 L, Potassium 4.4, Chloride 96, Carbon Dioxide 21.0, Anion Gap 15, BUN 21 H, Creatinine 1.40 H, Est GFR (MDRD) Non-Af 50 L, BUN/Creatinine Ratio 15.0, Glucose 132 H, Calcium 9.9 04/28/25 22:10: PT 17.5 H, INR 1.4 04/28/25 22:40: Urine Color Yellow, Urine Clarity Clear, Urine pH 7.0, Ur Specific [place] 1.010, Urine Protein 100 H, Urine Glucose (UA) Normal, Urine Ketones Negative, Urine Occult Blood 25 H, Urine Nitrite Negative, Urine Bilirubin Negative, Urine Urobilinogen Normal, Ur Leukocyte Esterase Negative, Urine RBC 0 SEEN, Urine WBC 0 SEEN, Ur Squamous Epith Cells 0 SEEN, Urine Bacteria 0 SEEN, Urine Mucus 0 SEEN Micro: Microbiology 04/28/25 21:30 Mucosa - Nasopharyngeal SARS-CoV-2, Influenza & RSV (PCR) - Final SARS-CoV-2 (COVID 19 PCR) Rhythm Strip Rhythm Strip: Sinus bradycardia Rate: 58 Ectopy: None Imaging Radiology Impression Chest X-Ray 04/28/25 22:14 IMPRESSION: No radiographic evidence of acute cardiopulmonary pathology. Reading Location: [id number] Assessment & Plan Assessment/Plan (1) COVID-19 virus infection: (2) Generalized weakness: (3) Debility: (4) Prostate cancer metastatic to bone: (5) Hypertension: QUALIFIERS: Hypertension type: primary hypertension Qualified Code(s): I10 - Essential (primary) hypertension (6) Paroxysmal A-fib: PLAN: Plan Admission to [facility] Patient is weak and cannot ambulate because of concurrent viral infection (COVID-19). PT OT evaluation Patient is on room air, has no pneumonia. He benefits from Paxlovid to avoid disease progression, but contraindicated with Xtandi so next line therapy will be remdesivir for 3 days only (not 5 as for see patients requiring Oxygen). Trend LFT and CBC. On warfarin, was switched from Eliquis because of interaction with Xtandi. Check daily INR and adjust as appropriate for goal 2-3 Blood pressure is elevated. Heart rate in the 60s as usual for him. Will increase his hydralazine which was started by cardiology recently, to 50 mg 3 times daily. Charges/Coding Visit Charges Inpatient E&M: 16170 Init Hosp L3
[2025-04-29] MEDS: Remdesivir 200 MG in 0.9% Normal Saline (250mL Bag) 210 ML 250 MG IV (02:18)
[2025-04-29] MEDS: 0.9% Normal Saline (250mL Bag) 250 ML 15 ML IV (02:18)
[2025-04-29 07:07] LABS: Hematocrit 34.8 % (40-54); Hemoglobin 11.9 g/dL (13.0-16.5); Immature Granulocytes Count 0.030 X10^3/uL (0.0-0.0); Mean Corp Hgb Conc 34.2 g/dL (32-36); Mean Corpuscular Volume 101.2 fL (80-94); Mean Platelet Vol. 9.5 fl (6.2-12.0); NRBC Flagged by Analyzer 0 % (0-5); Platelet Count 143 K/mm3 (150-450); RBC Distribution Width CV 12.8 % (11.6-14.6); RBC Distribution Width SD 47.1 fl (35.1-43.9); Red Blood Count 3.44 M/mm3 (4.6-6.2); White Blood Count 5.4 K/mm3 (4.4-11.0)
[2025-04-29 07:16] LABS: Prothrombin Time (Protime)PT. 18.7 SECONDS (11.7-14.9)
--- NOTE | 2025-04-29 07:16 | PN.HOSP_ITS ---
Reason for Visit Chief Complaint: Generalized weakness Subjective Subjective Patient is an 84-year-old gentleman with multiple comorbidities including metastatic prostate CA, paroxysmal A-fib who presented to the emergency department with progressive generalized weakness. Patient apparently did experience 2 syncopal episode the day prior. Was brought to the ED evaluation was positive for SARS-CoV-2 (COVID 19 PCR). Admitted to regular nursing floor for subsequent management Objective Data Objective Data Vital Signs: Vital Signs Temp Pulse Resp BP Pulse Ox O2 Del Method 98.5 F 62 18 150/62 H 94 Room Air 04/29/25 06:49 04/29/25 06:49 04/29/25 06:49 04/29/25 06:49 04/29/25 06:49 04/29/25 06:49 Oxygen Delivery Method Room Air Weight: 91 kg Body Mass Index (BMI) 31.4 Intake & Output: Intake and Output for Last 24 Hours 04/27/25 04/28/25 04/29/25 23:59 23:59 23:59 Intake Total 1000 / 1000 250 / 250 Balance 1000 / 1000 250 / 250 Lab / Micro Data 04/29/25 05:38 04/29/25 05:38 Labs: Laboratory Results - last 24 hr 04/28/25 21:19: WBC 7.0, RBC 3.85 L, Hgb 13.6, Hct 38.6 L, MCV 100.3 H, MCH 35.3 H, MCHC 35.2, RDW Std Deviation 46.9 H, RDW Coeff of Briana 12.7, Plt Count 185, MPV 10.8, Immature Gran % (Auto) 0.300, Neut % (Auto) 71.9 H, Lymph % (Auto) 12.5 L, [place] % (Auto) 14.4 H, Eos % (Auto) 0.3, Baso % (Auto) 0.6, Absolute Neuts (auto) 5.0, Absolute Lymphs (auto) 0.87, Nucleated RBC % 0, PT Cancelled, INR Cancelled, Sodium 132 L, Potassium 4.4, Chloride 96, Carbon Dioxide 21.0, Anion Gap 15, BUN 21 H, Creatinine 1.40 H, Est GFR (MDRD) Non-Af 50 L, BUN/Creatinine Ratio 15.0, Glucose 132 H, Calcium 9.9 04/28/25 22:10: PT 17.5 H, INR 1.4 04/28/25 22:40: Urine Color Yellow, Urine Clarity Clear, Urine pH 7.0, Ur Specific [place] 1.010, Urine Protein 100 H, Urine Glucose (UA) Normal, Urine Ketones Negative, Urine Occult Blood 25 H, Urine Nitrite Negative, Urine Bilirubin Negative, Urine Urobilinogen Normal, Ur Leukocyte Esterase Negative, Urine RBC 0 SEEN, Urine WBC 0 SEEN, Ur Squamous Epith Cells 0 SEEN, Urine Bacteria 0 SEEN, Urine Mucus 0 SEEN 04/29/25 05:38: WBC 5.4, RBC 3.44 L, Hgb 11.9 L, Hct 34.8 L, MCV 101.2 H, MCH 34.6 H, MCHC 34.2, RDW Std Deviation 47.1 H, RDW Coeff of Briana 12.8, Plt Count 143 L, MPV 9.5, Immature Gran % (Auto) 0.600, Neut % (Auto) 61.6, Lymph % (Auto) 20.1, [place] % (Auto) 16.6 H, Eos % (Auto) 0.4, Baso % (Auto) 0.7, Absolute Neuts (auto) 3.3, Absolute Lymphs (auto) 1.08, Nucleated RBC % 0 Micro: Microbiology 04/28/25 21:30 Mucosa - Nasopharyngeal SARS-CoV-2, Influenza & RSV (PCR) - Final SARS-CoV-2 (COVID 19 PCR) Radiography Diagnostic Testing: Radiology Impression Chest X-Ray 04/28/25 22:14 IMPRESSION: No radiographic evidence of acute cardiopulmonary pathology. Reading Location: [facility] Rhythm Strip Rhythm Strip: Sinus bradycardia Rate: 58 Ectopy: None Physical Exam Narrative GENERAL: Patient appears ill looking HEENT: Atraumatic; normocephalic EYES; Anicteric, Normal Conjunctiva NECK; supple, normal thyroid, RESPIRATORY: Diminished to auscultation CARDIOVASCULAR: Regular S1 S2, GI: soft, normoactive bowel sounds, : No Renal angle tenderness; EXTREMITIES: No edema, no clubbing, MUSCULOSKELETAL: no muscle wasting NEURO: Awake; no lateralizing signs. 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 Patient apparently did experience 2 syncopal episode the day prior. Was brought to the ED evaluation was positive for SARS-CoV-2 (COVID 19 PCR). Admitted to regular nursing floor for subsequent management 1. Acute COVID-19 infection ? Patient did not require oxygen was however admitted given profound generalized weakness. Patient was placed on remdesivir in addition to supportive management 2. Metastatic prostate CA ?Xtandi. Patient is on finasteride and tamsulosin for bladder outlet obstruction 3. Paroxysmal A-fib ? Rate controlled was previously on apixaban discontinued following initiation of Xtandi and subsequently placed on warfarin. Monitoring INR 4. Hypothyroidism ? Patient is on levothyroxine home dose continued 5. Hypertension ? Blood pressure control not optimal we will continue with home meds and adjust doses as needed 6. Dyslipidemia ?Patient is on statin therapy, continued at home dose 7. GERD ? On PPI 8. Anemia ? Secondary to chronic disorder monitoring H&H and transfuse if patient becomes symptomatic or hemoglobin falls below 7 9. Mild thrombocytopenia ? Will monitor with daily CBC with differential 10. Chronic kidney disease stage III ? Patient kidney function at baseline 11. DVT prophylaxis -patient is on warfarin Charges/Coding Visit Charges Inpatient E&M: 05844 Subs Hosp L2
[2025-04-29 07:59] LABS: AST(SGOT) 15 U/L (<=37); Alanine Aminotransfer ALT/SGPT 8 U/L (<=46); Albumin, Serum 3.6 g/dL (3.4-4.8); Alkaline Phosphatase 59 U/L (40-129); Anion Gap 13 (7-18); BUN 18 mg/dL (4-19); BUN/Creat Ratio 14.1 RATIO (10-20); Calcium,Total 9.2 mg/dL (7.6-11.0); Carbon Dioxide 22.9 mmol/L (20.0-29.0); Chloride 101 mmol/L (96-106); Estimated Creatinine Clearance 47.13 ml/min (50-250); Globulin 2.9 g/dL (2.2-4.2); Glucose 106 mg/dL (70-99); Magnesium 1.8 mg/dL (1.5-2.2); Potassium 3.5 mmol/L (3.5-5.1)
[2025-04-29] MEDS: CLARIFY ORDER 1 EACH NOTE (08:56)
--- NOTE | 2025-04-29 11:54 | CASEMGMT ---
Dx:COVID 19 LACE:2 6-Clicks:23- PT and OT eval'd, no therapy recommended. Medical record reviewed and patient evaluated for identification of discharge planning needs. Based on this review, at this time criteria are not present to indicate a need for discharge planning. Will remain available to assist with discharge planning needs as identified or requested. Noted from therapy eval, pt lives with , is typically indep and does not use AD to ambulate and did not with therapy. Pt is on RA.
[2025-04-29] MEDS: Warfarin (PBKC) 6 MG Tablet PO (17:14)
[2025-04-29] MEDS: Remdesivir 100 MG in 0.9% Normal Saline (250mL Bag) 230 ML 250 MG IV (21:16)
[2025-04-29] MEDS: hydrOXYzine PAM 25 MG Capsule PO (21:28)
[2025-04-29] MEDS: ENZALUTAMIDE 80 MG TABLET PO (21:33)
[2025-04-30 02:32] VITALS: BP 149/63; PULSE 62; RESP 18; TEMP 36.9; O2SAT 96
[2025-04-30 05:17] LABS: Prothrombin Time (Protime)PT. 19.2 SECONDS (11.7-14.9)
[2025-04-30] MEDS: BENZOCAINE/MENTHOL 1 LOZENGE MUCOUS MEM (06:40)
[2025-04-30 07:00] VITALS: PULSE 57
--- NOTE | 2025-04-30 07:47 | PCM.PN.HOSP ---
Reason for Visit Chief Complaint: Generalized weakness Subjective Subjective Patient seen complains of severe headache and nasal stuffiness. Also complains of feeling weak Objective Data Objective Data Vital Signs: Vital Signs Temp Pulse Resp BP Pulse Ox O2 Del Method 98.5 F 62 18 149/63 H 96 Room Air 04/30/25 02:32 04/30/25 02:32 04/30/25 02:32 04/30/25 02:32 04/30/25 02:32 04/30/25 02:35 Oxygen Delivery Method Room Air Weight: 91 kg Body Mass Index (BMI) 31.4 Intake & Output: Intake and Output for Last 24 Hours 04/28/25 04/29/25 04/30/25 23:59 23:59 23:59 Intake Total 1000 / 1000 1705 / 2004 500 / 500 Balance 1000 / 1000 1704 / 2004 500 / 500 Lab / Micro Data 04/29/25 05:38 04/29/25 05:38 Labs: Laboratory Results - last 24 hr 04/29/25 05:38: Sodium 137, Potassium 3.5, Chloride 101, Carbon Dioxide 22.9, Anion Gap 13, BUN 18, Creatinine 1.30 H, Estim Creat Clear Calc 47.13 L, Est GFR (MDRD) Non-Af 55 L, BUN/Creatinine Ratio 14.1, Glucose 106 H, Calcium 9.2, Magnesium 1.8, Total Bilirubin 0.31, AST 15, ALT 8, Alkaline Phosphatase 59, Total Protein 6.5, Albumin 3.6, Globulin 2.9, Albumin/Globulin Ratio 1.2 04/30/25 04:42: PT 19.2 H, INR 1.6 Micro: Microbiology 04/28/25 21:30 Mucosa - Nasopharyngeal SARS-CoV-2, Influenza & RSV (PCR) - Final SARS-CoV-2 (COVID 19 PCR) Rhythm Strip Rhythm Strip: Sinus bradycardia Rate: 58 Ectopy: None Physical Exam Narrative GENERAL: Patient appears ill looking HEENT: Atraumatic; normocephalic EYES; Anicteric, Normal Conjunctiva NECK; supple, normal thyroid, RESPIRATORY: Diminished to auscultation CARDIOVASCULAR: Regular S1 S2, GI: soft, normoactive bowel sounds, : No Renal angle tenderness; EXTREMITIES: No edema, no clubbing, MUSCULOSKELETAL: no muscle wasting NEURO: Awake; no lateralizing signs. 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 Patient apparently did experience 2 syncopal episode the day prior. Was brought to the ED evaluation was positive for SARS-CoV-2 (COVID 19 PCR). Admitted to regular nursing floor for subsequent management 1. Acute COVID-19 infection ? Patient did not require oxygen was however admitted given profound generalized weakness. Patient was placed on remdesivir in addition to supportive management ? 04/30/2025; patient continues to experience significant symptoms we will continue with current treatment for at least 1 more day prior to making decision regarding possible discharge 2. Metastatic prostate CA ?Xtandi. Patient is on finasteride and tamsulosin for bladder outlet obstruction 3. Paroxysmal A-fib ? Rate controlled was previously on apixaban discontinued following initiation of Xtandi and subsequently placed on warfarin. Monitoring INR ? 04/30/2025; INR 1.6 this a.m. 4. Hypothyroidism ? Patient is on levothyroxine home dose continued 5. Hypertension ? Blood pressure control not optimal we will continue with home meds and adjust doses as needed 6. Dyslipidemia ?Patient is on statin therapy, continued at home dose 7. GERD ? On PPI 8. Anemia ? Secondary to chronic disorder monitoring H&H and transfuse if patient becomes symptomatic or hemoglobin falls below 7 9. Mild thrombocytopenia ? Will monitor with daily CBC with differential 10. Chronic kidney disease stage III ? Patient kidney function at baseline 11. DVT prophylaxis -patient is on warfarin 12. Physical deconditioning ? Requested for PT OT eval and social and human services assistant to assist with discharge planning Charges/Coding Visit Charges Inpatient E&M: 49891 Subs Hosp L2
[2025-04-30 08:00] VITALS: O2SAT 95
[2025-04-30 08:14] LABS: Hematocrit 35.0 % (40-54); Hemoglobin 11.9 g/dL (13.0-16.5); Mean Corp Hgb Conc 34.0 g/dL (32-36); Mean Corpuscular Volume 102.3 fL (80-94); Mean Platelet Vol. 9.7 fl (6.2-12.0); Platelet Count 152 K/mm3 (150-450); RBC Distribution Width CV 13.1 % (11.6-14.6); RBC Distribution Width SD 49.4 fl (35.1-43.9); Red Blood Count 3.42 M/mm3 (4.6-6.2); White Blood Count 3.9 K/mm3 (4.4-11.0)
[2025-04-30 08:58] LABS: AST(SGOT) 19 U/L (<=37); Alanine Aminotransfer ALT/SGPT 8 U/L (<=46); Albumin, Serum 3.5 g/dL (3.4-4.8); Alkaline Phosphatase 55 U/L (40-129); Anion Gap 10 (7-18); BUN 20 mg/dL (4-19); BUN/Creat Ratio 14.5 RATIO (10-20); Calcium,Total 9.0 mg/dL (7.6-11.0); Carbon Dioxide 23.4 mmol/L (20.0-29.0); Chloride 103 mmol/L (96-106); Estimated Creatinine Clearance 45.05 ml/min (50-250); Globulin 2.9 g/dL (2.2-4.2); Glucose 99 mg/dL (70-99); Magnesium 1.9 mg/dL (1.5-2.2); Potassium 3.6 mmol/L (3.5-5.1)
[2025-04-30 09:32] VITALS: BP 108/48; PULSE 58; RESP 18; TEMP 36.2; O2SAT 96
--- NOTE | 2025-04-30 10:36 | DS.PCM_ITS ---
Providers Date of Admission: 04/29/25 Date of Discharge: 04/30/25 Primary Care Physician: Dr. Luis A Blankenship MD Reason For Visit: COVID 19 Diagnosis Discharge Diagnosis (1) COVID-19 virus infection: Status: Acute Code(s): U07.1 - COVID-19 (2) Generalized weakness: Status: Acute Code(s): R53.1 - Weakness (3) Debility: Status: Acute Code(s): R53.81 - Other malaise (4) Prostate cancer metastatic to bone: Status: Acute Code(s): C61 - Malignant neoplasm of prostate; C79.51 - Secondary malignant neoplasm of bone (5) Hypertension: Status: Chronic Code(s): I10 - Essential (primary) hypertension Qualifiers: Hypertension type: primary hypertension Qualified Code(s): I10 - Essential (primary) hypertension (6) Paroxysmal A-fib: Status: Acute Code(s): I48.0 - Paroxysmal atrial fibrillation Plan Patient is an 84-year-old gentleman with multiple comorbidities including metastatic prostate CA, paroxysmal A-fib who presented to the emergency department with progressive generalized weakness. Patient apparently did experience 2 syncopal episode the day prior. Was brought to the ED evaluation was positive for SARS-CoV-2 (COVID 19 PCR). Admitted to regular nursing floor for subsequent management 1. Acute COVID-19 infection ? Patient did not require oxygen was however admitted given profound generalized weakness. Patient was placed on remdesivir in addition to supportive management ? 04/30/2025; patient continues to experience significant symptoms we will continue with current treatment for at least 1 more day prior to making decision regarding possible discharge ? 04/30/2025; plan was for patient to have been monitored for an additional day however he requested to be discharged home. 2. Metastatic prostate CA ?Xtandi. Patient is on finasteride and tamsulosin for bladder outlet obstruction 3. Paroxysmal A-fib ? Rate controlled was previously on apixaban discontinued following initiation of Xtandi and subsequently placed on warfarin. Monitoring INR ? 04/30/2025; INR 1.6 this a.m. 4. Hypothyroidism ? Patient is on levothyroxine home dose continued 5. Hypertension ? Blood pressure control not optimal we will continue with home meds and adjust doses as needed 6. Dyslipidemia ?Patient is on statin therapy, continued at home dose 7. GERD ? On PPI 8. Anemia ? Secondary to chronic disorder monitoring H&H and transfuse if patient becomes symptomatic or hemoglobin falls below 7 9. Mild thrombocytopenia ? Will monitor with daily CBC with differential 10. Chronic kidney disease stage III ? Patient kidney function at baseline 11. DVT prophylaxis -patient is on warfarin 12. Physical deconditioning ? Requested for PT OT eval and clinical social work aide to assist with discharge planning Medications at Discharge Home Medications atorvastatin 40 mg tablet 40 mg PO QHS cholesterol 07/08/19 losartan 100 mg tablet 100 mg PO QHS bp 07/08/19 valacyclovir 500 mg tablet 500 mg PO DAILY herpes 07/03/20 hydroxyzine HCl 25 mg tablet 25 mg PO QHS anxiety 06/16/23 tamsulosin 0.4 mg capsule 0.4 mg PO BID prostate 06/16/23 finasteride 5 mg tablet 5 mg PO DAILY 09/22/23 ondansetron 8 mg disintegrating tablet 8 mg PO Q8H PRN PRN nausea/vomiting 04/15/24 enzalutamide 80 mg tablet (Xtandi) 160 mg PO QDAY PROSTATE CA 11/22/24 hydralazine 10 mg tablet 10 mg PO BID #60 tabs 04/18/25 amlodipine 5 mg tablet 5 mg PO DAILY 04/28/25 levothyroxine 125 mcg tablet 125 mcg PO DAILY 04/28/25 pantoprazole 20 mg tablet,delayed release 20 mg PO DAILY 04/28/25 prochlorperazine maleate 10 mg tablet 10 mg PO Q6H PRN PRN nausea 04/28/25 warfarin 6 mg tablet (Jantoven) 6 mg PO QWEEK 04/28/25 Hospital Course Summary of Care Provided Minutes Spent on Discharge: 35 Physical Exam Narrative GENERAL: Patient appears ill looking HEENT: Atraumatic; normocephalic EYES; Anicteric, Normal Conjunctiva NECK; supple, normal thyroid, RESPIRATORY: Diminished to auscultation CARDIOVASCULAR: Regular S1 S2, GI: soft, normoactive bowel sounds, : No Renal angle tenderness; EXTREMITIES: No edema, no clubbing, MUSCULOSKELETAL: no muscle wasting NEURO: Awake; no lateralizing signs. SKIN: No Rash PSYCH; Flat affect Weight / BMI Weight Weight: 91 kg Body Mass Index (BMI) 31.4 ABG / Lab / Microbiology Data 04/30/25 04:42 04/30/25 04:42 Laboratory: Laboratory Results - last 24 hr 04/30/25 04:42: WBC 3.9 L, RBC 3.42 L, Hgb 11.9 L, Hct 35.0 L, MCV 102.3 H, MCH 34.8 H, MCHC 34.0, RDW Std Deviation 49.4 H, RDW Coeff of Briana 13.1, Plt Count 152, MPV 9.7, PT 19.2 H, INR 1.6, Sodium 136, Potassium 3.6, Chloride 103, Carbon Dioxide 23.4, Anion Gap 10, BUN 20 H, Creatinine 1.36 H, Estim Creat Clear Calc 45.05 L, Est GFR (MDRD) Non-Af 52 L, BUN/Creatinine Ratio 14.5, Glucose 99, Calcium 9.0, Phosphorus 3.2, Magnesium 1.9, Total Bilirubin 0.34, AST 19, ALT 8, Alkaline Phosphatase 55, Total Protein 6.4, Albumin 3.5, Globulin 2.9, Albumin/Globulin Ratio 1.2 Microbiology: Microbiology 04/28/25 21:30 Mucosa - Nasopharyngeal SARS-CoV-2, Influenza & RSV (PCR) - Final SARS-CoV-2 (COVID 19 PCR) D/C Instructions DC O2, CPAP, BIPAP Needs Home O2 Discharge instructions: No Patient's Goals Of Care - F/U Goals Reviewed Goals of care reviewed with patient: Yes - No change Meaningful Use Info Meaningful Use Meaningful Use Diagnoses (Choose all that apply): None applicable Discharge Plan Admission Admit Date/Time: 04/29/25 00:17 Attending Provider: Tony Okeefe Primary Care Provider: Luis A Blankenship Consulting Providers: Blanca Shah Discharge Orders/Prescriptions Prescriptions: Continued losartan 100 mg tablet 100 mg PO QHS atorvastatin 40 mg tablet 40 mg PO QHS finasteride 5 mg tablet 5 mg PO DAILY Xtandi 80 mg tablet 160 mg PO QDAY hydralazine 10 mg tablet 10 mg PO BID Qty: 60 3RF valacyclovir 500 MG tablet 500 mg PO DAILY hydroxyzine HCl 25 mg tablet 25 mg PO QHS tamsulosin 0.4 mg capsule 0.4 mg PO BID ondansetron 8 mg tablet,disintegrating 8 mg PO Q8H PRN PRN (Reason: nausea/vomiting) amlodipine 5 mg tablet 5 mg PO DAILY levothyroxine 125 mcg tablet 125 mcg PO DAILY warfarin [Jantoven] 6 mg tablet 6 mg PO QWEEK prochlorperazine maleate 10 mg tablet 10 mg PO Q6H PRN PRN (Reason: nausea) pantoprazole 20 mg tablet,delayed release (DR/EC) 20 mg PO DAILY Referrals / Follow Up: Luis A Blankenship MD [Primary Care Provider, Family Practice] - In 1 Week Disposition Disposition (needs filled in before D/C Order can be placed): Home, Self Care Charges/Coding Visit Charges Inpatient E&M: [id number] Disch Hosp >30min
== END 2025-04-30 15:09 | disposition home or self-care (01) | DRG 178 ==
LOC: ED 23:34 → MS3 04-29 00:23
PROVIDERS: Admitting Provider Internal Medicine; Emergency Provider Emergency Medicine; PCP Family Medicine; Visit Provider Internal Medicine
DX: U07.1 COVID-19 (principal); C79.51 Secondary malignant neoplasm of bone; D63.8 Anemia in other chronic diseases classified elsewhere; N18.30 Chronic kidney disease, stage 3 unspecified; E03.9 Hypothyroidism, unspecified; I12.9 Hypertensive chronic kidney disease with stage 1 through stage 4 chronic kidney disease, or unspecified chronic kidney disease; E66.9 Obesity, unspecified; D69.6 Thrombocytopenia, unspecified; I48.0 Paroxysmal atrial fibrillation; C61 Malignant neoplasm of prostate; F41.9 Anxiety disorder, unspecified; E78.5 Hyperlipidemia, unspecified; K21.9 Gastro-esophageal reflux disease without esophagitis; N40.0 Benign prostatic hyperplasia without lower urinary tract symptoms; N32.0 Bladder-neck obstruction; R53.81 Other malaise; Z79.01 Long term (current) use of anticoagulants; Z79.890 Hormone replacement therapy; Z79.899 Other long term (current) drug therapy; Z87.891 Personal history of nicotine dependence; Z87.440 Personal history of urinary (tract) infections; Z68.31 Body mass index [BMI] 31.0-31.9, adult
CPT/HCPCS: 36415; 71045; 80048; 80053; 81001; 83735; 84100; 85025; 85027; 85610; 87631; 93005; 94668; 97162; 97165; 99285; A4216; J0248